=== PATIENT | male | born 1970 | race Caucasian/White ===

== ENCOUNTER 2016-05-28 20:29 | Emergency (ER) | payer MEDICAID ==
[~2016-05-28] VITALS: Ht 175.3 cm; Wt 172.4 kg
[~2016-05-28 20:29] MED LIST: ACHYD1T PO; AMOX500C2 PO; ARIP15TA PO; ASP325T PO; ASP81TEC PO; ATOR10TA PO; BENZ-13 PO; BPR100T PO; CLON0.5T3 PO; CRB200T PO; CYCL10TA9 PO; DIPH-681 PO; DOXY100C42 PO; FAMO20TA5 PO; FENO145T2 PO; HCT25T PO; HYDR-1231 PO; HYDR-3812 PO; HYDR1TAB66 PO; IBP800T PO; LISI10TA PO; LISI10TA2 PO; LRT10T PO; METO-333 PO; METO25TA2 PO; MULT-608 PO; MULT-974 PO; MVI PO; NAPR500T PO; NF-LOVAZAC PO; NFPRILOC40 PO; NITR-65 PO; OMEP-10 PO; POTA10CA43 PO; PRD20T PO; QUET300T PO; ROPI2TAB4 PO; SCR1T1 PO; SULF500T PO; TAMS0.4C9 PO; TPR100T PO; TRAZ150T42 PO; VNL75T PO; lovastatin PO
[2016-05-28] MEDS ORDERED: MESA250C PO (21:14)
[2016-05-28] MEDS ORDERED: AMIT50TA3 PO (21:14)
[2016-05-28] MEDS ORDERED: TOPI50TA13 PO (21:14)
[2016-05-28] MEDS ORDERED: PANT40TA3 PO (21:14)
[2016-05-28] MEDS ORDERED: DICY10CA12 PO (21:14)
[2016-05-28 21:22] LABS: BILIRUBIN,URINE NEGATIVE (NEGATIVE); KETONES,URINE NEGATIVE (NEGATIVE); LEUKOCYTE ESTERASE ,URINE 1+ (NEGATIVE); NITRITE,URINE NEGATIVE (NEGATIVE); PH,URINE 7 (5-9); PROTEIN,URINE 2+ (NEGATIVE); UROBILINOGEN,URINE NORMAL (NORMAL)
--- NOTE | 2016-05-28 21:24 | ED GU-Female ---
General Chief Complaint: Abdominal/GI Problems Stated Complaint: R SIDE PAIN Nursing Triage Note: PT TO ED 7 W/ FAMILY FOR C/O RT SIDE PAIN ONSET X2-3 DAYS, WORSE TODAY. DENIES N/V, DOES C/O CHRONIC DIARRHEA. WHEN ASKED WHERE PAIN IS PT POINTS TO RT FLANK , RT UPPER ET LOWER QUADRANTS OF ABD Nursing Sepsis Screen: No Definite Risk Source: patient, family (daughter), spouse Exam Limitations: no limitations History of Present Illness Time seen by provider: 21:12 Initial Comments 45-year-old male patient presents to the emergency department complains of right sided abdominal pain for 2-3 days. A anders denies nausea and vomiting. Does have chronic diarrhea. Denies fever, chills. Denies dysuria, frequency, hematuria. Timing/Duration: getting worse, other (2-3 days) Severity/Quality: aching, sharp Location: right flank Radiation: RLQ, other Activities at Onset: physical activity (right upper quadrant) Prior Genitourinary Problems: similar symptoms Modifying Factors: Worsens With Palpation Allergies and Home Medications Allergies Coded Allergies: No Known Drug Allergies (Unverified , 12/31/10) Home Medications Amitriptyline HCl 50 Mg Tablet, 50 MG PO HS, (Reported) Aripiprazole 15 Mg Tab, 20 TAB PO DAILY, (Reported) DAILY Atorvastatin Calcium 10 Mg Tablet, 10 MG PO HS, (Reported) Bupropion Hcl 100 Mg Tablet, 1 TAB PO TID, #60 (Reported) Ciprofloxacin HCl 500 Mg Tablet, 500 MG PO BID for 7 Days, #14 Ref 0 Prescribed by: NITHIN GOODWIN on 05/28/162251 Cyclobenzaprine Hcl 10 Mg Tablet, 1 EACH PO TID PRN for SPASMS, (Reported) Dicyclomine HCl 10 Mg Capsule, 20 MG PO QID, (Reported) Famotidine 20 Mg Tablet, 1 EACH PO BID for 30 Days, Ref 0 Prescribed by: KIT JOHNSON on 10/18/132110 Fenofibrate,Micronized 145 Mg Tablet, 145 MG PO DAILY, (Reported) Hydrocodone/Acetaminophen 1 Each Tablet, 1 EACH PO Q6H PRN for PAIN, #14 Ref 0 Prescribed by: NITHIN GOODWIN on 01/15/15 2315 Lisinopril 10 Mg Tablet, 10 MG PO DAILY, (Reported) Mesalamine 250 Mg Capsule.er, 250 MG PO BID, (Reported) Metoprolol Tartrate 25 Mg Tablet, 25 MG PO BID, (Reported) Vernalis-3 Acid Ethyl Esters 1 Gm Capsule, 2 G PO BID WITH MEALS, (Reported) Pantoprazole Sodium 40 Mg Tablet.dr, 40 MG PO DAILY, (Reported) Phenazopyridine HCl 200 Mg Tablet, 1 TAB PO Q8H PRN for PAIN, #30 Ref 0 Prescribed by: NITHIN GOODWIN on 05/28/16 2252 Ropinirole Hcl 2 Mg Tablet, 2 MG PO BID, (Reported) Sucralfate 1 Gm Tab, 1 GM PO UD, #120 Ref 0 TAKE BEFORE EACH MEAL AND AT BEDTIME FOR STOMACH Prescribed by: KIT JOHNSON on 10/18/132110 Topiramate 50 Mg Tablet, 50 MG PO HS, (Reported) Constitutional: No chills, No fever, No malaise Respiratory: no symptoms reported Cardiovascular: no symptoms reported Gastrointestinal: RUQ, RLQ, abdominal pain, No constipation, diarrhea (chronic diarrhea), No loss of appetite, No nausea, No vomiting Genitourinary: see HPI, denies burning, denies discharge, denies dysuria, denies frequency, flank pain, denies hematuria Musculoskeletal: No back pain Skin: no symptoms reported Psychiatric/Neurological: No Symptoms Reported All Other Systemes Reviewed Negative Unless Noted: Yes (Negative excepted noted.) Past Cvjjhqp-Bpaqbe-Fmxyoh Hx Patient Social History Alcohol Use: Denies Use Recreational Drug Use: No Smoking Status: Current Everyday Smoker Type Used: Cigarettes Recent Foreign Travel: No Contact w/Someone Who Travel: No Recent Infectious Disease Expo: No Recent Hopitalizations: No Immunizations Up To Date Tetanus Booster (TDap): Unknown Date of Influenza Vaccine: Dec 01, 2013 Seasonal Allergies Seasonal Allergies: No Surgeries HX Surgeries: Yes (LAP EVELIO, BACK SURGERY, FINGER) Surgeries: Gallbladder, Orthopedic Respiratory Hx Respiratory Disorders: Yes (C-PAP MACHINE) Respiratory Disorders: Sleep Apnea, COPD Cardiovascular Hx Cardiac Disorders: Yes Cardiac Disorders: High Cholesterol, Hypertension Neurological Hx Neurological Disorders: No Reproductive System Hx Reproductive Disorders: No Sexually Transmitted Disease: No HIV/AIDS: No Genitourinary Hx Genitourinary Disorders: Yes Genitourinary Disorders: Kidney Stones Gastrointestinal Hx Gastrointestinal Disorders: Yes (TAKES MEDS) Gastrointestinal Disorders: Colitis, Gastroesophageal Reflux Musculoskeletal Hx Musculoskeletal Disorders: Yes Musculoskeletal Disorders: Arthritis, Chronic Back Pain Endocrine Hx Endocrine Disorders: No HEENT HX ENT Disorders: No Cancer Hx Cancer: No Psychosocial Hx Psychiatric Problems: Yes (BIPOLAR, TAKES MEDS) Behavioral Health Disorders: Anxiety, Bipolar, Depression Integumentary HX Skin/Integumentary Disorder: No Blood Transfusions Hx Blood Disorders: No Adverse Reaction to a Blood Tr: No Reviewed Nursing Assessment Reviewed/Agree w Nursing PMH: Yes Family Medical History Significant Family History: No Pertinent Family Hx Physical Exam Vital Signs Capillary Refill : Less Than 3 Seconds General Appearance: WD/WN, no apparent distress, obese HEENT: PERRL/EOMI, pharynx normal Neck: supple, normal inspection Cardiovascular: regular rate, rhythm, no murmur Respiratory: lungs clear, normal breath sounds, no respiratory distress Gastrointestinal: normal bowel sounds, soft, No distended, guarding (right upper quadrant, right lower quadrant, and right flank), No rebound, tenderness ( generalized tenderness with greatest tenderness in the right upper quadrant, right lower quadrant, and right flank) Back: normal inspection, no vertebral tenderness, CVA tenderness (R), No CVA tenderness (L) Extremities: normal inspection, normal capillary refill Neurologic/Psychiatric: alert, normal mood/affect, oriented x 3 Skin: normal color, warm/dry Progress/Results/Core Measures Results/Orders Lab Results My Orders Vital Signs/I&O Blood Pressure Mean: 124 Diagnostic Imaging Diagonstic Imaging: CT Plain Films/CT/US/NM/MRI: abdomen, pelvis Comments Nonobstructing bilateral renal calculi. No ureteral stone. Normal appendix. No bowel obstruction or perforation. Hepatomegaly with parenchymal steatosis. Previous cholecystectomy. Fat-containing right inguinal hernia. Reviewed: Other ([facility] report reviewed by me) Departure Communication Progress Notes Laboratory and diagnostic findings discussed with the patient. Patient reports feeling better with medications given in the emergency department. Patient instructed to use home hydrocodone 5/[address] Casper and follow -up with Dr. meyer for recheck. All return precautions were discussed with the patient as described in the discharge instructions of this report. Patient voices understanding and agrees with the treatment plan. Impression Impression: Primary Impression: Urinary tract infection Qualified Codes: N30.00 - Acute cystitis without hematuria Additional Impressions: Right flank pain Inguinal hernia of right side without obstruction or gangrene Disposition: HOME, SELF-CARE Condition: Improved Departure-Patient Inst. Decision time for Depature: 22:49 Referrals: ÁNGEL CASPER MD (PCP/Family) Primary Care Physician Patient Instructions: Acute Abdomen (Belly Pain), Adult (DC), Urinary Tract Infection, Adult (DC) Add. Discharge Instructions: All discharge instructions reviewed with patient and/or family. Voiced understanding. Medications as instructed. Continue current home medications including Flexeril and hydrocodone. Drink plenty of fluids. Follow-up with your family practitioner for recheck in the next 2-3 days, call for appointment time tomorrow morning. Discuss right inguinal hernia with your family practitioner. Return to the emergency department for worsened pain, fever, vomiting, vomiting blood, rectal bleeding, black stools, inability to urinate, or any other concerns. Scripts Phenazopyridine HCl (Pyridium) 200 Mg Tablet 1 TAB PO Q8H Y for PAIN, #30 TAB 0 Refills Prov: NITHIN GOODWIN 05/28/16 Ciprofloxacin HCl (Ciprofloxacin HCl) 500 Mg Tablet 500 MG PO BID for 7 Days, #14 TAB 0 Refills Prov: NITHIN GOODWIN 05/28/16 NITHIN GOODWIN May 28, 2016 21:24
[2016-05-28] MEDS ORDERED: KETOROLAC 60 MG/2 ML VIAL IM STA (21:35)
[2016-05-28] MEDS ORDERED: ORPHENADRINE 60 MG/2 ML (NORFLEX) AMP IM STA (21:35)
[2016-05-28 21:37] LABS: WBC,URINE 25-50 /HPF
[2016-05-28] MEDS ORDERED: CIPR500T4 PO (22:52)
[2016-05-28] MEDS ORDERED: PHEN-640 PO (22:52)
[2016-05-28] MEDS ORDERED: oxyCODONE/APAP 5/325MG (PERCOCET 5) TABLET PO STA (22:57)
[2016-05-28] MEDS ORDERED: LEVOFLOXACIN 500 MG TAB (LEVAQUIN) PO ONE (23:00)
[2016-05-28 23:11] VITALS: BP 142/100
--- NOTE | 2016-05-29 07:14 | Diagnostic Imaging Report ---
PROCEDURE: CT urinary tract, rule out kidney stone. TECHNIQUE: Multiple contiguous axial images were obtained through the abdomen and pelvis without the use of intravenous contrast. INDICATION: Right-sided abdominal pain. History of kidney stones and gallbladder surgery. Comparison study: CT of the abdomen pelvis from 2013. FINDINGS: The lung bases are clear. Fatty infiltration of the liver has developed. No focal hepatic abnormalities are present. The liver is enlarged but not appreciably changed. The spleen is upper normal in size. The pancreas and adrenal glands are normal. Bilateral renal calculi are again identified. No obstruction is present. The urinary bladder is clear. The appendix and bowel loops appear normal. There is normal appearance of the prostate gland. Right inguinal hernia is present containing fat only. No inflammatory changes are present. The osseous structures demonstrate some facet arthropathy. IMPRESSION: 1. Bilateral renal lithiasis with no obstruction. 2. Hepatomegaly with development of a fatty liver. 3. There is a fat-containing right inguinal hernia. Findings agree with the [facility] report. Dictated by: Dictated on workstation # [id number]
[2016-05-30 07:46] LABS: CHLAMYDIA DNA URINE Negative (Negative)
[2016-05-31 06:44] LABS: NEISSERIA GONORRHEA DNA URINE Negative (Negative)
--- OUTSIDE RECORDS SUMMARY | 2016-06-16 05:15 | XMS REPORT | Continuity of Care Document ---
Author Author [facility] Organization [facility] Address Unknown Phone Unavailable Care Team Providers Care Lapel Stitcher Name Role Phone Self, Referral PCP Unavailable Source Comments Some departments are not documenting in the electronic medical record. If you do not see the information that you expected, contact Release of Information in the Health Information Management department at [phone] for further assistance in locating additional records.[facility] Active Allergies and Adverse Reactions No Known Allergies Current Medications Prescription Sig. Disp. Refills Start End Date Status Date Fenofibric Acid Take 135 mg by mouth Active (TRILIPIX) 135 mg PO CpDR daily. VENLAFAXINE HCL Take 750 mg by mouth 07/19/19 Active (VENLAFAXINE PO) daily. 11 OMEPRAZOLE (PRILOSEC PO) Take 20 mg by mouth Active daily. hydrochlorothiazide Take 25 mg by mouth Active (HYDRODIURIL) 25 mg PO daily. tablet lisinopril (PRINIVIL; Take 20 mg by mouth Active ZESTRIL) 20 mg PO tablet daily. aspirin 325 mg PO tablet Take 325 mg by mouth 07/16/19 Active daily. 11 PV W-O DARIN/FERROUS Take by mouth daily. Active FUMARATE/FA (M-VIT PO) DOCOSAHEXANOIC ACID/EPA Take 1,000 mg by mouth Active (FISH OIL PO) daily. clonazepam (KLONOPIN) 0.5 Take 0.5 mg by mouth Active mg PO tablet three times daily. carbamazepine (EPITOL) Take 200 mg by mouth Active 200 mg PO tablet three times daily. ibuprofen (MOTRIN) 800 mg Take 800 mg by mouth Active PO tablet three times daily. cyclobenzaprine Take 10 mg by mouth three 07/19/19 Active (FLEXERIL) 10 mg PO times daily as needed. 11 tablet topiramate (TOPAMAX) 100 Take 100 mg by mouth Active mg PO tablet twice daily. metoprolol (LOPRESSOR) 25 Take 25 mg by mouth twice Active mg PO tablet daily. gemfibrozil (LOPID) 600 Take 600 mg by mouth Active mg PO tablet twice daily. POTASSIUM CHLORIDE (K-JOANNE Take 20 mEq by mouth at Active PO) bedtime daily. ropinirole (REQUIP) 2 mg Take 2 mg by mouth at Active PO tablet bedtime daily. Trazodone 150 mg PO Tb24 Take 150 mg by mouth at Active bedtime daily. QUETIAPINE FUMARATE Take 500 mg by mouth at 07/19/19 Active (SEROQUEL XR PO) bedtime daily. 11 Active Problems Not on file Social History Tobacco Use Types Packs/Day Years Used Date Current Every Day Smoker 1 Alcohol Use Drinks/Week oz/Week Comments No Last Filed Vital Signs Vital Sign Reading Time Taken Blood Pressure 111/65 07/20/2010 3:35 PM CDT Pulse 98 07/20/2010 3:35 PM CDT Temperature 37.2 C (99 F) 10/18/2009 10:49 AM CDT Respiratory Rate - - Height - - Weight 161.027 kg (355 lb) 07/20/2010 2:05 PM CDT Body Mass Index - - Oxygen Saturation 96% 07/20/2010 3:35 PM CDT Plan of Care Health Maintenance Due Date Last Done Comments Physical (Comprehensive) 1976 Exam Pertussis Vaccine 1980 Tetanus Vaccine 1986 Influenza Vaccine 11/01/2016 Results from Last 3 Months Not on file
--- OUTSIDE RECORDS SUMMARY | 2016-06-16 05:15 | XMS REPORT ---
Author Author VALENTIN MCFARLAND [facility] Address Unknown Care Team Providers Care Visual Manager Name Role Phone VALENTIN MCFARLAND Unavailable PROBLEMS Type Condition ICD9-CM Code [id number]-RC Code Onset Dates Condition Status SNOMED Code Problem Pleurisy without mention of effusion or current tuberculosis 511.0 Active 657620449 Problem Restless legs syndrome [RLS] 333.94 Active 93411759 Problem Obstructive sleep apnea (adult) (pediatric) 327.23 Active 56779283 Assessment Dental examination Z01.20 Oct, Active 37104313 Problem Unspecified site of sprain and strain 848.9 Active 667285487 Problem Other specified headache syndromes 339.89 Active Problem Lumbago 724.2 Active 397865227 Problem Bipolar I disorder, single manic episode, unspecified 296.00 Active 4310246 Problem Other and unspecified hyperlipidemia 272.4 Active 39294686 Problem Essential hypertension, benign 401.1 Active 6471755 ALLERGIES Unknown Allergies SOCIAL HISTORY No smoking Hx information available PLAN OF CARE VITAL SIGNS MEDICATIONS Unknown Medications RESULTS No Results PROCEDURES Procedure Date Ordered Related Diagnosis Body Site Billing Notes on claim Oct 27, 2015 IMMUNIZATIONS No Known Immunizations
--- OUTSIDE RECORDS SUMMARY | 2016-06-16 05:16 | XMS REPORT | Continuity of Care Document ---
Author Author [facility] Organization [facility] Address Unknown Phone Unavailable Allergies Active Description Code Type Severity Reaction Onset Reported/Identified Relationship to Patient Clinical Status Yes No Known Drug Allergies [id number] Drug Allergy Unknown N/ A 12/31/2010 Medications Problems Date Dx Coded Attending Type Code Diagnosis Diagnosed By 01/01/2011 Ot 272.4 HYPERLIPIDEMIA NEC/NOS 01/01/2011 Ot 278.00 OBESITY, NOS 01/01/2011 Ot 296.80 BIPOLAR DISORDER, UNSPECIFIED 01/01/2011 Ot 305.1 TOBACCO USE DISORDER 01/01/2011 Ot 401.9 HYPERTENSION NOS 01/01/2011 Ot 780.57 UNSPECIFIED SLEEP APNEA 01/01/2011 Ot 786.59 CHEST PAIN NEC 01/01/2011 Ot V58.66 LONG-TERM (CURRENT) USE OF ASPIRIN 01/01/2011 Ot V58.69 OTH MED,LT,CURRENT USE 01/01/2011 Ot V85.43 BODY MASS INDEX 50.0-59.9, ADULT 10/26/2011 Ot 295.90 SCHIZOPHRENIA NOS-UNSPEC 10/26/2011 Ot 296.82 ATYPICAL DEPRESSIVE DIS 10/26/2011 Ot 882.0 OPEN WOUND OF HAND 10/26/2011 Ot E000.8 OTHER EXTERNAL CAUSE STATUS 10/26/2011 Ot E849.0 ACCIDENT IN HOME 10/26/2011 Ot E956 ROMEO/SELF-INJ BY CUT INST 10/26/2011 Ot V58.69 OTH MED,LT,CURRENT USE 10/26/2011 Ot V62.84 SUICIDAL IDEATION 09/04/2013 MAXIMO LENNON, DONN Hays Ot 592.1 CALCULUS OF URETER 10/18/2013 KIT JOHNSON DO Ot 530.81 ESOPHAGEAL REFLUX 10/18/2013 KIT JOHNSON DO Ot 786.50 CHEST PAIN NOS 10/18/2013 KIT JOHNSON DO Ot V58.69 OTH MED,LT,CURRENT USE 10/04/2014 JANET LENNON, LINO Hays Ot 592.0 CALCULUS OF KIDNEY 11/04/2014 JANET LENNON, LINO A Ot 592.9 01/15/2015 NITHIN HALL Ot F17.210 NICOTINE DEPENDENCE, CIGARETTES, UNCOMPL 01/15/2015 NITHIN HALL Ot M12.9 ARTHROPATHY, UNSPECIFIED 01/15/2015 NITHIN HALL Ot M51.16 INTERVERTEBRAL DISC DISORDERS W RADICULO 09/30/2015 LOGAN SNELL APRN Ot F17.210 NICOTINE DEPENDENCE, CIGARETTES, UNCOMPL 09/30/2015 LOGAN SNELL APRN Ot K02.9 DENTAL CARIES, UNSPECIFIED 09/30/2015 LOGAN SNELL APRN Ot K08.8 OTHER SPECIFIED DISORDERS OF TEETH AND S 10/02/2015 LOGAN SNELL APRN Ot K02.9 DENTAL CARIES, UNSPECIFIED 10/02/2015 LOGAN SNELL APRN Ot K08.8 OTHER SPECIFIED DISORDERS OF TEETH AND S 10/02/2015 LOGAN SNELL APRN Ot F17.210 NICOTINE DEPENDENCE, CIGARETTES, UNCOMPL 10/02/2015 LOGAN SNELL APRN Ot K02.9 DENTAL CARIES, UNSPECIFIED 10/02/2015 LOGAN SNELL APRN Ot K08.8 OTHER SPECIFIED DISORDERS OF TEETH AND S 10/06/2015 LOGAN SNELL APRN Ot F17.210 NICOTINE DEPENDENCE, CIGARETTES, UNCOMPL 10/06/2015 LOGAN SNELL APRN Ot K02.9 DENTAL CARIES, UNSPECIFIED 10/06/2015 LOGAN SNELL APRN Ot K08.8 OTHER SPECIFIED DISORDERS OF TEETH AND S 10/07/2015 LOGAN SNELL APRN Ot F17.210 NICOTINE DEPENDENCE, CIGARETTES, UNCOMPL 10/07/2015 LOGAN SNELL APRN Ot K76.0 FATTY (CHANGE OF) LIVER, NOT ELSEWHERE C 10/07/2015 LOGAN SNELL APRN Ot R06.02 SHORTNESS OF BREATH 10/07/2015 LOGAN SNELL APRN Ot R07.9 CHEST PAIN, UNSPECIFIED 10/09/2015 LOGAN SNELL APRN Ot F17.210 NICOTINE DEPENDENCE, CIGARETTES, UNCOMPL 10/09/2015 LOGAN SNELL APRN Ot K76.0 FATTY (CHANGE OF) LIVER, NOT ELSEWHERE C 10/09/2015 LOGAN SNELL APRN Ot R06.02 SHORTNESS OF BREATH 10/09/2015 LOGAN SNELL APRN Ot R07.9 CHEST PAIN, UNSPECIFIED 10/10/2015 LOGAN SNELL TUBE COVERER Ot F17.210 NICOTINE DEPENDENCE, CIGARETTES, UNCOMPL 10/10/2015 LOGAN SNELL APRN Ot K76.0 FATTY (CHANGE OF) LIVER, NOT ELSEWHERE C 10/10/2015 LOGAN SNELL APRN Ot R06.02 SHORTNESS OF BREATH 10/10/2015 LOGAN SNELL APRN Ot R07.9 CHEST PAIN, UNSPECIFIED 12/11/2015 KIT JOHNSON DO Ot R10.84 GENERALIZED ABDOMINAL PAIN 12/11/2015 KIT JOHNSON DO Ot Z53.21 PROC/TRTMT NOT CRD OUT D/T PT LV BEF SEE 12/13/2015 KIT JOHNSON DO Ot R10.84 GENERALIZED ABDOMINAL PAIN 12/13/2015 KIT JOHNSON DO Ot Z53.21 PROC/TRTMT NOT CRD OUT D/T PT LV BEF SEE 01/26/2016 JANET LENNON, LINO Hays Ot 592.0 CALCULUS OF KIDNEY 01/26/2016 LINO GONZALES MD Ot 592.0 CALCULUS OF KIDNEY 01/26/2016 JANET LENNON, LINO Hays Ot 789.03 ABDOMINAL PAIN, RIGHT LOWER QUADRANT 01/26/2016 JANET LENNON, LINO Hays Ot 793.5 NOSP (ABN) FINDINGS ON RADIOLOGICAL OT 01/26/2016 LINO GONZALES MD Ot 592.0 CALCULUS OF KIDNEY 01/26/2016 JANET LENNON, LINO Hays Ot V72.84 EXAM PRE-OPERATIVE NOS 01/26/2016 LINO GONZALES MD Ot 592.9 URINARY CALCULUS NOS 01/27/2016 KRISTIAN CONTRERAS DO Ot F17.210 NICOTINE DEPENDENCE, CIGARETTES, UNCOMPL 01/27/2016 KRISTIAN CONTRERAS DO Ot I10 ESSENTIAL (PRIMARY) HYPERTENSION 01/27/2016 KRISTIAN CONTRERAS DO Ot J44.0 CHRONIC OBSTRUCTIVE PULMON DISEASE W ACU 01/27/2016 KRISTIAN CONTRERAS DO Ot R06.02 SHORTNESS OF BREATH 01/27/2016 DIANE DO, KRISTIAN K Ot R73.9 HYPERGLYCEMIA, UNSPECIFIED 01/27/2016 DIANE DO, KRISTIAN K Ot Z79.899 OTHER CARTON COUNTER FEEDER (CURRENT) DRUG THERAPY 01/29/2016 DIANE DO, KRISTIAN K Ot F17.210 NICOTINE DEPENDENCE, CIGARETTES, UNCOMPL 01/29/2016 DIANE DO, KRISTIAN K Ot I10 ESSENTIAL (PRIMARY) HYPERTENSION 01/29/2016 DIANE DO, KRISTIAN K Ot J44.0 CHRONIC OBSTRUCTIVE PULMON DISEASE W ACU 01/29/2016 DIANE DO, KRISTIAN K Ot R06.02 SHORTNESS OF BREATH 01/29/2016 DIANE DO, KRISTIAN K Ot R73.9 HYPERGLYCEMIA, UNSPECIFIED 01/29/2016 DIANE DO, KRISTIAN K Ot Z79.899 OTHER CARTON COUNTER FEEDER (CURRENT) DRUG THERAPY 01/30/2016 DIANE DO, KRISTIAN K Ot F17.210 NICOTINE DEPENDENCE, CIGARETTES, UNCOMPL 01/30/2016 DIANE DO, KRISTIAN K Ot I10 ESSENTIAL (PRIMARY) HYPERTENSION 01/30/2016 DIANE DO, KRISTIAN K Ot J44.0 CHRONIC OBSTRUCTIVE PULMON DISEASE W ACU 01/30/2016 DIANE DO, KRISTIAN K Ot R06.02 SHORTNESS OF BREATH 01/30/2016 DIANE DO, KRISTIAN K Ot R73.9 HYPERGLYCEMIA, UNSPECIFIED 01/30/2016 DIANE DO, KRISTIAN K Ot Z79.899 OTHER CARTON COUNTER FEEDER (CURRENT) DRUG THERAPY 05/28/2016 NITHIN HALL Ot F17.210 NICOTINE DEPENDENCE, CIGARETTES, UNCOMPL 05/28/2016 NITHIN HALL Ot I10 ESSENTIAL (PRIMARY) HYPERTENSION 05/28/2016 NITHIN HALL Ot K40.90 UNIL INGUINAL HERNIA, W/O OBST OR GANGR , 05/28/2016 NITHIN HALL Ot N20.0 CALCULUS OF KIDNEY 05/28/2016 NITHIN HALL Ot N39.0 URINARY TRACT INFECTION, SITE NOT SPECIF 05/28/2016 NITHIN HALL Ot R10.31 RIGHT LOWER QUADRANT PAIN 05/28/2016 NITHIN HALL Ot Z79.899 OTHER CARE HOME (CURRENT) DRUG THERAPY 05/29/2016 NITHIN HALL Ot F17.210 NICOTINE DEPENDENCE, CIGARETTES, UNCOMPL 05/29/2016 NITHIN HALL Ot I10 ESSENTIAL (PRIMARY) HYPERTENSION 05/29/2016 NITHIN HALL L Ot K40.90 UNIL INGUINAL HERNIA, W/O OBST OR GANGR , 05/29/2016 NITHIN HALL Ot N20.0 CALCULUS OF KIDNEY 05/29/2016 NITHIN HALL Ot N39.0 URINARY TRACT INFECTION, SITE NOT SPECIF 05/29/2016 NITHIN HALL Ot R10.31 RIGHT LOWER QUADRANT PAIN 05/29/2016 NITHIN HALL Ot Z79.899 OTHER CARTON COUNTER FEEDER (CURRENT) DRUG THERAPY 05/30/2016 NITHIN HALL L Ot F17.210 NICOTINE DEPENDENCE, CIGARETTES, UNCOMPL 05/30/2016 NITHIN HALL L Ot I10 ESSENTIAL (PRIMARY) HYPERTENSION 05/30/2016 NITHIN HALL L Ot K40.90 UNIL INGUINAL HERNIA, W/O OBST OR GANGR , 05/30/2016 NITHIN HALL Ot N20.0 CALCULUS OF KIDNEY 05/30/2016 NITHIN HALL Ot N39.0 URINARY TRACT INFECTION, SITE NOT SPECIF 05/30/2016 NITHIN HALL Ot R10.31 RIGHT LOWER QUADRANT PAIN 05/30/2016 NITHIN HALL Ot Z79.899 OTHER CARE HOME (CURRENT) DRUG THERAPY 06/03/2016 NITHIN HALL Ot F17.210 NICOTINE DEPENDENCE, CIGARETTES, UNCOMPL 06/03/2016 NITHIN HALL Ot I10 ESSENTIAL (PRIMARY) HYPERTENSION 06/03/2016 NITHIN HALL Ot K40.90 UNIL INGUINAL HERNIA, W/O OBST OR GANGR , 06/03/2016 NITHIN HALL Ot N20.0 CALCULUS OF KIDNEY 06/03/2016 NITHIN HALL Ot N39.0 URINARY TRACT INFECTION, SITE NOT SPECIF 06/03/2016 NITHIN HALL Ot R10.31 RIGHT LOWER QUADRANT PAIN 06/03/2016 NITHIN HALL Ot Z79.899 OTHER CARE HOME (CURRENT) DRUG THERAPY Procedures Results Test Result Range Complete blood count (CBC) with automated white blood cell (WBC) differential - 10/07/15 17:46 Blood leukocytes automated count (number/volume) 8.3 10*3/ uL 4.3-11.0 Blood erythrocytes automated count (number/volume) 4.89 10*6 /uL 4.35-5.85 Venous blood hemoglobin measurement (mass/volume) 15.4 g/dL 13.3-17.7 Blood hematocrit (volume fraction) 45 % 40-54 Automated erythrocyte mean corpuscular volume 92 [foz_us] 80-99 Automated erythrocyte mean corpuscular hemoglobin (mass per erythrocyte) 32 pg 25-34 Automated erythrocyte mean corpuscular hemoglobin concentration measurement ( mass/volume) 34 g/dL 32-36 Automated erythrocyte distribution width ratio 13.4 % 10.0-14.5 Automated blood platelet count (count/volume) 168 10*3/uL 130-400 Automated blood platelet mean volume measurement 10.7 [foz_ us] 7.4-10.4 Automated blood neutrophils/100 leukocytes 64 % 42-75 Automated blood lymphocytes/100 leukocytes 25 % 12-44 Blood monocytes/100 leukocytes 8 % 0-12 Automated blood eosinophils/100 leukocytes 2 % 0-10 Automated blood basophils/100 leukocytes 1 % 0-10 Blood neutrophils automated count (number/volume) 5.3 10*3 1.8-7.8 Blood lymphocytes automated count (number/volume) 2.0 10*3 1.0-4.0 Blood monocytes automated count (number/volume) 0.7 10*3 0.0-1.0 Automated eosinophil count 0.2 10*3/uL 0.0-0.3 Automated blood basophil count (count/volume) 0.0 10*3/uL 0.0-0.1 PT panel in platelet poor plasma by coagulation assay - 10/07/15 17:46 Prothrombin time (PT) in platelet poor plasma by coagulation assay 12.0 s 12.2-14.7 INR in platelet poor plasma or blood by coagulation assay 0.9 0.8-1.4 Activated partial thromboplastin time (aPTT) in platelet poor plasma bycoagulation assay - 10/07/15 17:46 Activated partial thromboplastin time (aPTT) in platelet poor plasma bycoagulation assay 26 s 24-35 Comprehensive metabolic panel - 10/07/15 17:46 Serum or plasma sodium measurement (moles/volume) 139 mmol/ L 135-145 Serum or plasma potassium measurement (moles/volume) 3.7 mmol/L 3.6-5.0 Serum or plasma chloride measurement (moles/volume) 107 mmol /L 98-107 Carbon dioxide 26 mmol/L 21-32 Serum or plasma anion gap determination (moles/volume) 6 mmol/L 5-14 Serum or plasma urea nitrogen measurement (mass/volume) 12 mg/dL 7-18 Serum or plasma creatinine measurement (mass/volume) 1.44 mg /dL 0.60-1.30 Serum or plasma urea nitrogen/creatinine mass ratio 8 NRG Serum or plasma creatinine measurement with calculation of estimated glomerular filtration rate 53 NRG Serum or plasma glucose measurement (mass/volume) 126 mg/dL 70-105 Serum or plasma calcium measurement (mass/volume) 9.1 mg/dL 8.5-10.1 Serum or plasma total bilirubin measurement (mass/volume) 0.3 mg/dL 0.1-1.0 Serum or plasma alkaline phosphatase measurement (enzymatic activity/volume) 55 U/L 40-136 Serum or plasma aspartate aminotransferase measurement (enzymatic activity/ volume) 23 U/L 5-34 Serum or plasma alanine aminotransferase measurement (enzymatic activity/volume ) 33 U/L 0-55 Serum or plasma protein measurement (mass/volume) 5.9 g/dL 6.4-8.2 Serum or plasma albumin measurement (mass/volume) 3.8 g/dL 3.2-4.5 Magnesium - 10/07/15 17:46 Magnesium 1.8 mg/dL 1.8-2.4 Serum or plasma troponin i.cardiac measurement (mass/volume) - 10/07/15 17:46 Serum or plasma troponin i.cardiac measurement (mass/volume) < ng/mL <0.30 Myoglobin, serum - 10/07/15 17:46 Myoglobin, serum 77.7 ng/mL 10.0-92.0 Serum or plasma lithium measurement (moles/volume) - 10/07/15 17:46 BNP level 26.7 pg/mL <100.0 Hemoglobin A1c - 10/07/15 17:46 Hemoglobin A1c 5.6 % 4.5-6.2 Complete blood count (CBC) with automated white blood cell (WBC) differential - 01/26/16 23:39 Blood leukocytes automated count (number/volume) 11.6 10*3/ uL 4.3-11.0 Blood erythrocytes automated count (number/volume) 5.34 10*6 /uL 4.35-5.85 Venous blood hemoglobin measurement (mass/volume) 17.1 g/dL 13.3-17.7 Blood hematocrit (volume fraction) 49 % 40-54 Automated erythrocyte mean corpuscular volume 92 [foz_us] 80-99 Automated erythrocyte mean corpuscular hemoglobin (mass per erythrocyte) 32 pg 25-34 Automated erythrocyte mean corpuscular hemoglobin concentration measurement ( mass/volume) 35 g/dL 32-36 Automated erythrocyte distribution width ratio 14.1 % 10.0-14.5 Automated blood platelet count (count/volume) 171 10*3/uL 130-400 Automated blood platelet mean volume measurement 10.6 [foz_ us] 7.4-10.4 Automated blood neutrophils/100 leukocytes 63 % 42-75 Automated blood lymphocytes/100 leukocytes 25 % 12-44 Blood monocytes/100 leukocytes 10 % 0-12 Automated blood eosinophils/100 leukocytes 2 % 0-10 Automated blood basophils/100 leukocytes 1 % 0-10 Blood neutrophils automated count (number/volume) 7.3 10*3 1.8-7.8 Blood lymphocytes automated count (number/volume) 2.9 10*3 1.0-4.0 Blood monocytes automated count (number/volume) 1.2 10*3 0.0-1.0 Automated eosinophil count 0.2 10*3/uL 0.0-0.3 Automated blood basophil count (count/volume) 0.1 10*3/uL 0.0-0.1 PT panel in platelet poor plasma by coagulation assay - 01/26/16 23:39 Prothrombin time (PT) in platelet poor plasma by coagulation assay 13.0 s 12.2-14.7 INR in platelet poor plasma or blood by coagulation assay 1.0 0.8-1.4 Activated partial thromboplastin time (aPTT) in platelet poor plasma bycoagulation assay - 01/26/16 23:39 Activated partial thromboplastin time (aPTT) in platelet poor plasma bycoagulation assay 28 s 24-35 Influenza virus A and B antigen detection - 01/26/16 23:55 FLU RESULT NEGATIVE FOR INFLUENZA A AND B ANTIGENS BY [facility] Comprehensive metabolic panel - 01/27/16 00:08 Serum or plasma sodium measurement (moles/volume) 137 mmol/ L 135-145 Serum or plasma potassium measurement (moles/volume) 3.5 mmol/L 3.6-5.0 Serum or plasma chloride measurement (moles/volume) 108 mmol /L 98-107 Carbon dioxide 17 mmol/L 21-32 Serum or plasma anion gap determination (moles/volume) 12 mmol/L 5-14 Serum or plasma urea nitrogen measurement (mass/volume) 17 mg/dL 7-18 Serum or plasma creatinine measurement (mass/volume) 1.45 mg /dL 0.60-1.30 Serum or plasma urea nitrogen/creatinine mass ratio 12 NRG Serum or plasma creatinine measurement with calculation of estimated glomerular filtration rate 52 NRG Serum or plasma glucose measurement (mass/volume) 212 mg/dL 70-105 Serum or plasma calcium measurement (mass/volume) 9.3 mg/dL 8.5-10.1 Serum or plasma total bilirubin measurement (mass/volume) 0.4 mg/dL 0.1-1.0 Serum or plasma alkaline phosphatase measurement (enzymatic activity/volume) 62 U/L 40-136 Serum or plasma aspartate aminotransferase measurement (enzymatic activity/ volume) 27 U/L 5-34 Serum or plasma alanine aminotransferase measurement (enzymatic activity/volume ) 40 U/L 0-55 Serum or plasma protein measurement (mass/volume) 6.4 g/dL 6.4-8.2 Serum or plasma albumin measurement (mass/volume) 4.1 g/dL 3.2-4.5 Magnesium - 01/27/16 00:08 Magnesium 2.0 mg/dL 1.8-2.4 Serum or plasma creatine kinase measurement (enzymatic activity/volume) - 01/26 00:08 Serum or plasma creatine kinase measurement (enzymatic activity/volume) 180 U/L 30-200 Serum or plasma lithium measurement (moles/volume) - 01/27/16 00:08 BNP level < pg/mL <100.0 Serum or plasma creatine kinase MB measurement (enzymatic activity/volume) - 00:08 Serum or plasma creatine kinase MB measurement (enzymatic activity/volume) 2.9 ng/mL <6.6 Serum or plasma troponin i.cardiac measurement (mass/volume) - 01/27/16 00:08 Serum or plasma troponin i.cardiac measurement (mass/volume) < ng/mL <0.30 Complete urinalysis with reflex to culture - 05/28/16 21:02 Urine color determination YELLOW NRG Urine clarity determination SLIGHTLY CLOUDY NRG Urine pH measurement by test strip 7 5- 9 Specific gravity of urine by test strip 1.010 1.016-1.022 Urine protein assay by test strip, semi-quantitative 2+ NEGATIVE Urine glucose detection by automated test strip 1+ NEGATIVE Erythrocytes detection in urine sediment by light microscopy NEGATIVE NEGATIVE Urine ketones detection by automated test strip NEGATIVE NEGATIVE Urine nitrite detection by test strip NEGATIVE NEGATIVE Urine total bilirubin detection by test strip NEGATIVE NEGATIVE Urine urobilinogen measurement by automated test strip (mass/volume) NORMAL NORMAL Urine leukocyte esterase detection by dipstick 1+ NEGATIVE Automated urine sediment erythrocyte count by microscopy (number/high power field) RARE NRG Automated urine sediment leukocyte count by microscopy (number/high power field ) [HPF] NRG Bacteria detection in urine sediment by light microscopy LARGE NRG Squamous epithelial cells detection in urine sediment by light microscopy 10-25 NRG Crystals detection in urine sediment by light microscopy NONE NRG Casts detection in urine sediment by light microscopy NONE NRG Mucus detection in urine sediment by light microscopy NEGATIVE NRG Complete urinalysis with reflex to culture YES NRG Bacterial urine culture - 05/28/16 21:02 Bacterial urine culture FOOTNOTE NRG Chlamydia DNA amp probe, urine - 05/28/16 21:02 Chlamydia DNA amp probe, urine Negative Negative Urine Neisseria gonorrhoeae DNA assay - 05/28/16 21:02 Gonorrhea amp DNA-urine Negative Negative Encounters ACCT No. Visit Date/Time Discharge Status Pt. Type Provider Facility Loc./Unit Complaint [id number] 05/28/2016 20:30:00 2016 23:11:00 DIS Emergency NITHIN HALL [facility] ER R SIDE PAIN [id number] 01/26/2016 23:11:00 2015 01:20:00 DIS Emergency DIANE DOKRISTIAN [facility] ER CP,SOB,CONGESTION [id number] 12/11/2015 16:04:00 2015 17:15:00 DIS Emergency KIT JOHNSON DO [facility] ER ABD PAIN [id number] 10/07/2015 17:30:00 2015 20:45:00 DIS Emergency LOGAN SNELL APRN [facility] ER CHEST PAIN/SOA [id number] 09/30/2015 13:50:00 2015 14:24:00 DIS Emergency LOGAN SNELL TUBE COVERER [facility] ER DENTAL PAIN [id number] 01/15/2015 21:30:00 2014 23:27:00 DIS Emergency NITHIN HALL [facility] ER BACK PAIN [id number] 10/25/2014 13:37:00 2014 23:59:59 CLS Outpatient LINO GONZALES MD [facility] RAD STONES [id number] 10/04/2014 07:51:00 2014 16:10:00 DIS Outpatient LINO GONZALES MD [facility] SDC LEFT RENAL STONE [id number] 09/27/2014 05:58:00 2014 23:59:59 CLS Outpatient LINO GONZALES MD [facility] PREOP LEFT RENAL STONE [id number] 10/18/2013 19:39:00 2013 21:28:00 DIS Emergency KIT JOHNSON DO [facility] ER CHEST PAIN, R ARM PAIN [id number] 09/04/2013 19:34:00 2013 22:38:00 DIS Emergency DONN MARSH MD [facility] ER LEFT SIDE PAIN [id number] 08/06/2013 08:09:00 2013 23:59:59 CLS Outpatient LINO GONZALES MD [facility] RAD RLQ PAIN, HX OF STONES [id number] 08/05/2013 13:42:00 2013 23:59:59 CLS Outpatient LINO GONZALES MD [facility] RAD STONE [id number] 10/17/2012 11:17:00 2012 23:59:59 CLS Outpatient [id number] 10/26/2011 15:47:00 Document Registration [id number] 12/31/2010 19:20:00 Document Registration
--- OUTSIDE RECORDS SUMMARY | 2016-06-16 05:16 | XMS REPORT ---
Author Author CYN MAC [facility] [employer] Address Unknown Phone Unavailable Care Team Providers Care Consular Officer Name Role Phone CYN MAC Unavailable Allergies, Adverse Reactions, Alerts Substance Reaction Event Type N.K.D.A. Info Not Available Non Drug Allergy Problems Problem Type Condition Code Onset Dates Condition Status Assessment Dental examination Z01.20 Active Problem Obstructive sleep apnea (adult) (pediatric) 327.23 Active Problem Pleurisy without mention of effusion or current tuberculosis 511.0 Active Problem Other specified headache syndromes 339.89 Active Problem Other and unspecified hyperlipidemia 272.4 Active Problem Unspecified site of sprain and strain 848.9 Active Problem Bipolar I disorder, single manic episode, unspecified 296.00 Active Problem Restless legs syndrome [RLS] 333.94 Active Problem Essential hypertension, benign 401.1 Active Problem Lumbago 724.2 Active Medications Medication Code System Code Instructions Start Date End Date Status Dosage Clindamycin HCl [facility] [place] [address]-19 150 MG Orally every 6 hrs Feb 01, 2015 Feb 08, 2015 2 capsules Lipitor [facility] [place]NOTE 2] [address]-94 10 mg September 26, 2011 take 1 tablet (10 mg ) by oral route once daily venlafaxine NDC 0 75 mg September 26, 2011 take 1 capsule (75 mg) by oral route once daily Tricor [facility] [place] 2] [address]-10 145 mg September 26, 2011 take 1 tablet (145 mg) by oral route once daily Seroquel [facility] [place]NOTE 2] [address]-38 300 mg September 26, 2011 take 2 tablets ( 600 mg) by oral route once daily Hydrocodone-Acetaminophen [facility] [place]NOTE 2] [address]-02 5-500 mg September 26, 2011 take 1 tablet by oral route every 6 hours as needed for painPRN Topiragen NDC 0 100 mg September 26, 2011 1 Tablet 2 times per day Ventolin HFA [facility] [place]NOTE 2] [address]-30 90 mcg/actuation September 26, 2011 not defined Epitol [facility] [place]NOTE 2] [address]-30 200 mg September 26, 2011 take 1 tablet (200 mg) by oral route every 8 hours Flexeril [facility] [place]NOTE 2] 0 not defined cyclobenzaprine [facility] [place]NOTE 2] [address]-66 10 mg September 26, 2011 take 1 tablet (10 mg) by oral route 3 times per day Advair Diskus [facility] [place]NOTE 2] [address]-42 250-50 mcg/dose September 26, 2011 inhale 1 puff by inhalation route 2 times per day in the morning and evening approximately 12 hours apart Requip [facility] [place]NOTE 2] [address]-34 2 mg September 26, 2011 1 Tablet 1 time per day Lisinopril [facility] [place]NOTE 2] [address]-44 10 mg September 26, 2011 take 1 tablet ( 10 mg) by oral route once daily Metoprolol Tartrate [facility] [place]NOTE 2] [address]-28 50 mg September 26, 2011 0.5 Tablet every 12 hours PredniSONE [facility] [place]NOTE 2] [address]-80 20 mg September 26, 2011 3 tablet by Oral route 1 time per day for 5 day(s) Loratadine [facility] [place]NOTE 2] [address]-07 10 mg September 26, 2011 take 1 tablet ( 10 mg) by oral route once daily Lovaza [facility] [place]NOTE 2] [address]-21 1 gram September 26, 2011 1 Capsule 2 times per day Procedures Procedure Coding System Code Date INTRAORL-PERIAPICAL 1 FILM 27717 CPT-4 D0220 Feb 01, 2015 LTD ORAL EVALUATION - PROBLEM FOCUS CPT-4 D0140 Feb 01, 2015 Results No Known Results Summary Purpose [employer] Submission
== END 2016-05-28 23:11 | disposition home or self-care (01) ==
LOC: EDUNIT# 20:29 → ER 20:30
DX: N39.0 Urinary tract infection, site not specified (principal); K40.90 Unilateral inguinal hernia, without obstruction or gangrene, not specified as recurrent; N20.0 Calculus of kidney; I10 Essential (primary) hypertension; F17.210 Nicotine dependence, cigarettes, uncomplicated; Z79.899 Other long term (current) drug therapy
CPT/HCPCS: 36415; 74176; 81000; 87088; 87491; 87591; 96372; 99282

== ENCOUNTER 2016-10-12 12:40 | Emergency (ER) | payer MEDICAID ==
[~2016-10-12] VITALS: Ht 175.3 cm; Wt 166.0 kg
[~2016-10-12 12:40] MED LIST changes: +AMIT50TA3 PO; +CIPR500T4 PO; +DICY10CA12 PO; +MESA250C PO; +PANT40TA3 PO; +PHEN-640 PO; +TOPI50TA13 PO
--- OUTSIDE RECORDS SUMMARY | 2016-10-12 12:46 | XMS REPORT | Clinical Summary ---
Author Author [facility] Organization [facility] Address Unknown Phone Unavailable Care Team Providers Care Network Internship Name Role Phone PCP Unavailable Source Comments Some departments are not documenting in the electronic medical record. If you do not see the information that you expected, contact Release of Information in the Health Information Management department at [phone] for further assistance in locating additional records.[facility] Allergies No Known Allergies Current Medications Prescription Sig. [...] 1 Alcohol Use Drinks/Week oz/Week Comments No Sex Assigned at Date Recorded Not on file Last Filed Vital Signs Vital Sign Reading Time Taken Blood Pressure 111/65 07/20/2010 3:35 PM CDT Pulse 98 07/20/2010 3:35 PM CDT Temperature 37.2 C (99 F) 10/18/2009 10:49 AM CDT Respiratory Rate - - Oxygen Saturation 96% 07/20/2010 3:35 PM CDT Inhaled Oxygen - - Concentration Weight 161 kg (355 lb) 07/20/2010 2:05 PM CDT Height - - Body Mass Index - - Plan of Treatment Health Maintenance Due Date Last Done Comments PHYSICAL (COMPREHENSIVE) 1976 EXAM PERTUSSIS VACCINE 1980 TETANUS VACCINE 1986 INFLUENZA VACCINE 11/01/2016 Results Not on filefrom Last 3 Months
--- NOTE | 2016-10-12 14:13 | ED EENT ---
History of Present Illness General Chief Complaint: Dental Problems/Pain Stated Complaint: DENTAL PAIN/SWELLING POSS INFECTION Nursing Triage Note: ARRIVED VIA AMB TO ROOM 05. STATES HE HAS HAD TROUBLE WITH HIS RIGHT LOWER TOOTH FOR A WHILE BUT HIS MOUTH BEGAN TO SWELL LAST NOC. Source: patient Exam Limitations: no limitations History of Present Illness Time seen by provider: 14:13 Initial Comments 45-year-old male patient presents to the emergency department with complaints of right lower dental pain and swelling. Patient reports symptoms began approximately one week ago. At times worse last night. Does complain of chills and low-grade fevers intermittently. Timing/Duration: gradual, last week Location: dental Prearrival Treatment: over the counter meds Modifying Factors: Worse With Other (worse with palpation and chewing.) Allergies and Home Medications Allergies Coded Allergies: No Known Drug Allergies (Unverified , 12/31/10) Home Medications Amitriptyline HCl 50 Mg Tablet, 50 MG PO HS, (Reported) Amoxicillin 500 Mg Capsule, 1,000 MG PO TID, #60 Ref 0 Prescribed by: NITHIN GOODWIN on 10/12/16 1528 Aripiprazole 15 Mg Tab, 20 TAB PO DAILY, (Reported) DAILY Atorvastatin Calcium 10 Mg Tablet, 10 MG PO HS, (Reported) Bupropion Hcl 100 Mg Tablet, 1 TAB PO TID, #60 (Reported) Ciprofloxacin HCl 500 Mg Tablet, 500 MG PO BID for 7 Days, #14 Ref 0 Prescribed by: NITHIN GOODWIN on 05/28/16 2252 Cyclobenzaprine Hcl 10 Mg Tablet, 1 EACH PO TID PRN for SPASMS, (Reported) Dicyclomine HCl 10 Mg Capsule, 20 MG PO QID, (Reported) Famotidine 20 Mg Tablet, 1 EACH PO BID for 30 Days, Ref 0 Prescribed by: KIT JOHNSON on 10/18/13 2111 Fenofibrate,Micronized 145 Mg Tablet, 145 MG PO DAILY, (Reported) Hydrocodone/Acetaminophen 1 Each Tablet, 1 EACH PO Q6H PRN for PAIN, #14 Ref 0 Prescribed by: NITHIN GOODWIN on 01/15/15 2315 Lisinopril 10 Mg Tablet, 10 MG PO DAILY, (Reported) Mesalamine 250 Mg Capsule.er, 250 MG PO BID, (Reported) Metoprolol Tartrate 25 Mg Tablet, 25 MG PO BID, (Reported) [place]-3 Acid Ethyl Esters 1 Gm Capsule, 2 G PO BID WITH MEALS, (Reported) Pantoprazole Sodium 40 Mg Tablet.dr, 40 MG PO DAILY, (Reported) Phenazopyridine HCl 200 Mg Tablet, 1 TAB PO Q8H PRN for PAIN, #30 Ref 0 Prescribed by: NITHIN GOODWIN on 05/28/16 2252 Ropinirole Hcl 2 Mg Tablet, 2 MG PO BID, (Reported) Sucralfate 1 Gm Tab, 1 GM PO UD, #120 Ref 0 TAKE BEFORE EACH MEAL AND AT BEDTIME FOR STOMACH Prescribed by: KIT JOHNSON on 10/18/13 2111 Sulfamethoxazole/Trimethoprim 1 Each Tablet, 1 EACH PO BID for 10 Days, #20 Ref 0 Prescribed by: SALTY MENDEZ on 10/13/16 0158 Topiramate 50 Mg Tablet, 50 MG PO HS, (Reported) Review of Systems Constitutional: see HPI, chills, fever, malaise Eyes: No Symptoms Reported Ears: No Symptoms Reported Nose: denies congestion, denies pain Mouth: see HPI, pain, swelling (right lower gum swelling) Throat: denies pain, denies swelling, denies neck stiffness, denies hoarse, denies muffled, denies painful swallowing, denies difficulty with fluids Respiratory: no symptoms reported Cardiovascular: no symptoms reported Gastrointestinal: no symptoms reported Skin: no symptoms reported Neurological: No Symptoms Reported All Other Systems Reviewed Negative Unless Noted: Yes (Negative excepted noted.) Past Xadvzib-Lgghbm-Yfykex Hx Patient Social History Alcohol Use: Denies Use Recreational Drug Use: No Smoking Status: Current Everyday Smoker Type Used: Cigarettes Recent Foreign Travel: No Contact w/Someone Who Travel: No Recent Infectious Disease Expo: No Recent Hopitalizations: No Immunizations Up To Date Tetanus Booster (TDap): Unknown Date of Influenza Vaccine: Dec 01, 2013 Seasonal Allergies Seasonal Allergies: No Surgeries HX Surgeries: Yes (LAP EVELIO, BACK SURGERY, FINGER) Surgeries: Gallbladder, Orthopedic Respiratory Hx Respiratory Disorders: Yes (C-PAP MACHINE) Respiratory Disorders: Sleep Apnea, COPD Cardiovascular Hx Cardiac Disorders: Yes Cardiac Disorders: High Cholesterol, Hypertension Neurological Hx Neurological Disorders: No Reproductive System Hx Reproductive Disorders: No Sexually Transmitted Disease: No HIV/AIDS: No Genitourinary Hx Genitourinary Disorders: Yes Genitourinary Disorders: Kidney Stones Gastrointestinal Hx Gastrointestinal Disorders: Yes (TAKES MEDS) Gastrointestinal Disorders: Colitis, Gastroesophageal Reflux Musculoskeletal Hx Musculoskeletal Disorders: Yes Musculoskeletal Disorders: Arthritis, Chronic Back Pain Endocrine Hx Endocrine Disorders: No HEENT HX ENT Disorders: No Cancer Hx Cancer: No Psychosocial Hx Psychiatric Problems: Yes (BIPOLAR, TAKES MEDS) Behavioral Health Disorders: Anxiety, Bipolar, Depression Integumentary HX Skin/Integumentary Disorder: No Blood Transfusions Hx Blood Disorders: No Adverse Reaction to a Blood Tr: No Reviewed Nursing Assessment Reviewed/Agree w Nursing PMH: Yes Family Medical History Significant Family History: No Pertinent Family Hx Physical Exam Vital Signs Vital Sign - Last 12Hours 10/12/16 13:40 Temp 95.3 Pulse 110 Resp 20 B/P (MAP) 148/93 Pulse Ox 96 O2 Delivery Room Air General Appearance: WD/WN, no apparent distress Eyes: bilateral eye EOMI, bilateral eye PERRL, bilateral eye normal inspection Ears: bilateral ear TM normal, bilateral ear auricle normal, bilateral ear canal normal Nose: normal inspection Mouth/Throat: pharynx normal, dental tenderness (right lower dental tenderness with swelling of the gums. no active drainage noted. multiple dental caries and fractured teeth noted.), No excessive drooling, mandibular swelling (rt mandibular swelling and tenderness noted.), No maxillary swelling Neck: non-tender, full range of motion, supple, lymphadenopathy (R), lymphadenopathy (L) Cardiovascular: regular rate, rhythm, no murmur Respiratory: lungs clear, normal breath sounds, no respiratory distress Neurologic/Psychiatric: alert, normal mood/affect, oriented x 3 Skin: normal color, warm/dry Progress/Results/Core Measures Results/Orders Lab Results Laboratory Tests Test 10/12/16 14:45 Range/Units White Blood Count 7.5 4.3-11.0 10^3/uL Red Blood Count 5.54 4.35-5.85 10^6/uL Hemoglobin 16.8 13.3-17.7 G/DL Hematocrit 50 40-54 % Mean Corpuscular Volume 91 80-99 FL Mean Corpuscular Hemoglobin 30 25-34 PG Mean Corpuscular Hemoglobin Concent 33 32-36 G/DL Red Cell Distribution Width 14.9 H 10.0-14.5 % Platelet Count 174 130-400 10^3/uL Mean Platelet Volume 10.7 H 7.4-10.4 FL Neutrophils (%) (Auto) 71 42-75 % Lymphocytes (%) (Auto) 15 12-44 % Monocytes (%) (Auto) 12 0-12 % Eosinophils (%) (Auto) 1 0-10 % Basophils (%) (Auto) 1 0-10 % Neutrophils # (Auto) 5.3 1.8-7.8 X 10^3 Lymphocytes # (Auto) 1.1 1.0-4.0 X 10^3 Monocytes # (Auto) 0.9 0.0-1.0 X 10^3 Eosinophils # (Auto) 0.1 0.0-0.3 10^3/uL Basophils # (Auto) 0.1 0.0-0.1 10^3/uL Prothrombin Time 11.8 L 12.2-14.7 SEC INR Comment 0.9 0.8-1.4 Activated Partial Thromboplast Time 28 24-35 SEC Sodium Level 138 135-145 MMOL/L Potassium Level 3.9 3.6-5.0 MMOL/L Chloride Level 107 98-107 MMOL/L Carbon Dioxide Level 20 L 21-32 MMOL/L Anion Gap 11 5-14 MMOL/L Blood Urea Nitrogen 12 7-18 MG/DL Creatinine 1.42 H 0.60-1.30 MG/DL Estimat Glomerular Filtration Rate 54 BUN/Creatinine Ratio 8 Glucose Level 121 H 70-105 MG/DL Lactic Acid Level 1.94 0.50-2.00 MMOL/L Calcium Level 9.9 8.5-10.1 MG/DL Total Bilirubin 0.5 0.1-1.0 MG/DL Aspartate Amino Transf (AST/SGOT) 27 5-34 U/L Alanine Aminotransferase (ALT/SGPT) 40 0-55 U/L Alkaline Phosphatase 63 40-136 U/L Total Protein 7.2 6.4-8.2 GM/DL Albumin 4.3 3.2-4.5 GM/DL Micro Results Microbiology 10/12/16 Blood Culture - Preliminary, Resulted No growth 10/12/16 Blood Culture - Preliminary, Resulted No growth My Orders Orders - NITHIN GOODWIN Cbc With Automated Diff (10/12/16 14:31) Comprehensive Metabolic Panel (10/12/16 14:31) Lactic Acid Analyzer (10/12/16 14:31) Blood Culture (10/12/16 14:31) Protime With Inr (10/12/16 14:31) Partial Thromboplastin Time (10/12/16 14:31) Saline Lock/Iv-Start (10/12/16 14:31) Vital Signs Adult Sepsis Patie Q1HR (10/12/16 14:31) Ceftriaxone Injection (Rocephin Injectio (10/12/16 14:31) Remove Rings In Anticipation O (10/12/16 14:31) Ns Iv 1000 Ml (Sodium Chloride 0.9%) (10/12/16 14:31) Medications Given in ED Vital Signs/I&O Blood Pressure Mean: 111 Departure Communication Progress Notes All laboratory and diagnostic findings were discussed with the patient. Patient is noted to have a normal white blood cell count and lactic acid. Patient reports feeling better with medications. I've given patient 1 g Rocephin as well as 1 L normal saline. Proceed with discharge to home. Patient instructed to follow-up with his dentist of choice for recheck this week as well as possible need for tooth extraction. Impression Impression: Primary Impression: Dental abscess Disposition: HOME, SELF-CARE Condition: Improved Departure-Patient Inst. Decision time for Depature: 15:28 Referrals: ÁNGEL CASPER MD (PCP/Family) Primary Care Physician Patient Instructions: Tooth Abscess (DC) Add. Discharge Instructions: All discharge instructions reviewed with patient and/or family. Voiced understanding. Medications as instructed. Continue usual home medications. Ibuprofen 800 mg by mouth every 8 hours as needed for pain. Ice pack or heating pad as needed for pain. Follow-up with dentist of your choice Friday or Friday for recheck and possible need for tooth extraction. Call for appointment time first thing Friday. Return to the emergency department for worsened pain, swelling, difficulty swallowing, difficulty breathing, fever, or any other concerns. Scripts Amoxicillin (Amoxicillin) 500 Mg Capsule 1000 MG PO TID, #60 CAP 0 Refills Prov: NITHIN GOODWIN 10/12/16 NITHIN GOODWIN Oct 12, 2016 14:13
[2016-10-12] MEDS ORDERED: cefTRIAXone 1 GM (ROCEPHIN) VIAL IV STA (14:31)
[2016-10-12] MEDS ORDERED: NS IV 1000 ML 1,000 ML IV ONE (14:31)
[2016-10-12 14:57] LABS: BASOPHILS # (AUTO) 0.1 10^3/uL (0.0-0.1); BASOPHILS % (AUTO) 1 % (0-10); EOSINOPHILS # (AUTO) 0.1 10^3/uL (0.0-0.3); EOSINOPHILS % (AUTO) 1 % (0-10); LYMPHOCYTES # (AUTO) 1.1 X 10^3 (1.0-4.0); LYMPHOCYTES % (AUTO) 15 % (12-44); MEAN CORPUSCULAR HEMOGLOBIN 30 PG (25-34); MEAN CORPUSCULAR HGB CONC 33 G/DL (32-36); MEAN CORPUSCULAR VOLUME 91 FL (80-99); MEAN PLATELET VOLUME 10.7 FL (7.4-10.4); MONOCYTES # (AUTO) 0.9 X 10^3 (0.0-1.0); MONOCYTES % (AUTO) 12 % (0-12); NEUTROPHILS # (AUTO) 5.3 X 10^3 (1.8-7.8); NEUTROPHILS % (AUTO) 71 % (42-75); PLATELET COUNT 174 10^3/uL (130-400); RED BLOOD COUNT 5.54 10^6/uL (4.35-5.85); RED CELL DISTRIBUTION WIDTH 14.9 % (10.0-14.5); WHITE BLOOD COUNT 7.5 10^3/uL (4.3-11.0)
[2016-10-12 15:05] LABS: INR 0.9 (0.8-1.4); PROTHROMBIN TIME PATIENT 11.8 SEC (12.2-14.7)
[2016-10-12 15:16] LABS: ALBUMIN 4.3 GM/DL (3.2-4.5); BILIRUBIN,TOTAL 0.5 MG/DL (0.1-1.0); CALCIUM 9.9 MG/DL (8.5-10.1); CREATININE SERUM 1.42 MG/DL (0.60-1.30); POTASSIUM 3.9 MMOL/L (3.6-5.0); TOTAL PROTEIN 7.2 GM/DL (6.4-8.2)
[2016-10-12] MEDS ORDERED: AMOX500C2 PO (15:28)
[2016-10-12 15:42] VITALS: BP 145/95
[2016-10-13] MEDS ORDERED: METR250T32 PO (01:01)
[2016-10-13] MEDS ORDERED: SULF1TAB35 PO (01:58)
== END 2016-10-12 15:42 | disposition home or self-care (01) ==
LOC: EDUNIT# 12:40 → ER 12:42
DX: K04.7 Periapical abscess without sinus (principal); G47.30 Sleep apnea, unspecified; J44.9 Chronic obstructive pulmonary disease, unspecified; I10 Essential (primary) hypertension; E78.00 Pure hypercholesterolemia, unspecified; K21.9 Gastro-esophageal reflux disease without esophagitis; M19.90 Unspecified osteoarthritis, unspecified site; F41.9 Anxiety disorder, unspecified; F31.9 Bipolar disorder, unspecified; M54.9 Dorsalgia, unspecified; G89.29 Other chronic pain; F17.210 Nicotine dependence, cigarettes, uncomplicated; Z90.49 Acquired absence of other specified parts of digestive tract
CPT/HCPCS: 36415; 80053; 83605; 85025; 85610; 85730; 87040

== ENCOUNTER 2016-10-12 23:23 | Emergency (ER) | payer MEDICAID ==
[~2016-10-12] VITALS: Ht 175.3 cm; Wt 166.0 kg
--- OUTSIDE RECORDS SUMMARY | 2016-10-12 23:28 | XMS REPORT | Clinical Summary ---
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 If you do not see the information that you expected, contact Release of Information in the Health Information Management department at [phone] for further assistance in locating additional records.[facility] Allergies No Known Allergies Current Medications Prescription [...]
--- NOTE | 2016-10-12 23:56 | ED Fever ---
History of Present Illness General Stated Complaint: BP Source: patient, family (daughter) Exam Limitations: no limitations History of Present Illness Time seen by provider: 23:50 Initial Comments Patient presents to ER by private conveyance with chief complaint of he was seen earlier this afternoon for right lower mandible tooth pain and abscess and was started on an IV antibiotic as well as oral antibiotic home which she took this evening. He was having fever and not feeling well then. This evening he started having a fever again of 101 MAXIMUM TEMPERATURE and blood pressure was 170s over 110 on his home cuff. He is having chills and malaise no nausea chest pain shortness of breath over his chronic shortness of breath. He is not on oxygen at home. He does have COPD. He's had no more cough than usual. Allergies and Home Medications Allergies Coded Allergies: No Known Drug Allergies (Unverified , 12/31/10) Home Medications Amitriptyline HCl 50 Mg Tablet, 50 MG PO HS, (Reported) Amoxicillin 500 Mg Capsule, 1,000 MG PO TID, #60 Ref 0 Prescribed by: NITHIN GOODWIN on 10/12/16 1528 Aripiprazole 15 Mg Tab, 20 TAB PO DAILY, (Reported) DAILY Atorvastatin Calcium 10 Mg Tablet, 10 MG PO HS, (Reported) Bupropion Hcl 100 Mg Tablet, 1 TAB PO TID, #60 (Reported) Ciprofloxacin HCl 500 Mg Tablet, 500 MG PO BID for 7 Days, #14 Ref 0 Prescribed by: NITHIN GOODWIN on 05/28/16 2252 Cyclobenzaprine Hcl 10 Mg Tablet, 1 EACH PO TID PRN for SPASMS, (Reported) Dicyclomine HCl 10 Mg Capsule, 20 MG PO QID, (Reported) Famotidine 20 Mg Tablet, 1 EACH PO BID for 30 Days, Ref 0 Prescribed by: KIT JOHNSON on 10/18/13 2111 Fenofibrate,Micronized 145 Mg Tablet, 145 MG PO DAILY, (Reported) Hydrocodone/Acetaminophen 1 Each Tablet, 1 EACH PO Q6H PRN for PAIN, #14 Ref 0 Prescribed by: NITHIN GOODWIN on 01/15/15 2315 Lisinopril 10 Mg Tablet, 10 MG PO DAILY, (Reported) Mesalamine 250 Mg Capsule.er, 250 MG PO BID, (Reported) Metoprolol Tartrate 25 Mg Tablet, 25 MG PO BID, (Reported) Metronidazole 250 Mg Tablet, 250 MG PO Q8H for 10 Days, #30 Ref 0 Prescribed by: SALTY MENDEZ on 10/13/16 0101 [place]-3 Acid Ethyl Esters 1 Gm Capsule, 2 G PO BID WITH MEALS, (Reported) Pantoprazole Sodium 40 Mg Tablet.dr, 40 MG PO DAILY, (Reported) Phenazopyridine HCl 200 Mg Tablet, 1 TAB PO Q8H PRN for PAIN, #30 Ref 0 Prescribed by: NITHIN GOODWIN on 05/28/16 2252 Ropinirole Hcl 2 Mg Tablet, 2 MG PO BID, (Reported) Sucralfate 1 Gm Tab, 1 GM PO UD, #120 Ref 0 TAKE BEFORE EACH MEAL AND AT BEDTIME FOR STOMACH Prescribed by: KIT JOHNSON on 10/18/132110 Topiramate 50 Mg Tablet, 50 MG PO HS, (Reported) Constitutional: chills, No diaphoresis, No dizziness, fever, malaise EENTM: No blurred vision, No double vision Respiratory: cough (baseline), dyspnea on exertion (baseline), short of breath (baseline), No wheezing Cardiovascular: No chest pain, No palpitations Gastrointestinal: No abdominal pain, No constipation, No diarrhea, No nausea, No vomiting Genitourinary: No discharge, No dysuria Musculoskeletal: No back pain, No joint pain Skin: No pruritus, No rash Psychiatric/Neurological: Denies Headache, Denies Numbness, Denies Paresthesia Past Vuexlrb-Wcoyvv-Ylisrv Hx Patient Social History Alcohol Use: Denies Use Recreational Drug Use: No Smoking Status: Current Everyday Smoker Type Used: Cigarettes Recent Foreign Travel: No Contact w/Someone Who Travel: No Recent Hopitalizations: No Immunizations Up To Date Tetanus Booster (TDap): Unknown Date of Influenza Vaccine: Dec 01, 2013 Seasonal Allergies Seasonal Allergies: No Surgeries HX Surgeries: Yes (LAP EVELIO, BACK SURGERY, FINGER) Surgeries: Gallbladder, Orthopedic Respiratory Hx Respiratory Disorders: Yes (C-PAP MACHINE) Respiratory Disorders: Sleep Apnea, COPD Cardiovascular Hx Cardiac Disorders: Yes Cardiac Disorders: High Cholesterol, Hypertension Neurological Hx Neurological Disorders: No Reproductive System Hx Reproductive Disorders: No Sexually Transmitted Disease: No HIV/AIDS: No Genitourinary Hx Genitourinary Disorders: Yes Genitourinary Disorders: Kidney Stones Gastrointestinal Hx Gastrointestinal Disorders: Yes (TAKES MEDS) Gastrointestinal Disorders: Colitis, Gastroesophageal Reflux Musculoskeletal Hx Musculoskeletal Disorders: Yes Musculoskeletal Disorders: Arthritis, Chronic Back Pain Endocrine Hx Endocrine Disorders: No HEENT HX ENT Disorders: No Cancer Hx Cancer: No Psychosocial Hx Psychiatric Problems: Yes (BIPOLAR, TAKES MEDS) Behavioral Health Disorders: Anxiety, Bipolar, Depression Integumentary HX Skin/Integumentary Disorder: No Blood Transfusions Hx Blood Disorders: No Adverse Reaction to a Blood Tr: No Family Medical History Significant Family History: No Pertinent Family Hx Physical Exam Vital Signs Vital Sign - Last 12Hours 10/12/16 23:41 Temp 101.1 Pulse 122 Resp 24 B/P (MAP) 139/103 Pulse Ox 96 O2 Delivery Room Air Capillary Refill : General Appearance: WD/WN, mild distress Eyes: Bilateral Eye EOMI, Bilateral Eye Normal Inspection, Bilateral Eye PERRL HEENT: PERRL/EOMI, TMs normal, other (profound dental caries and tender right lower mandible edema) Neck: non-tender, supple, normal inspection Respiratory: lungs clear, normal breath sounds, decreased breath sounds Cardiovascular: normal peripheral pulses, regular rate, rhythm Gastrointestinal: normal bowel sounds, non tender Extremities: non-tender, normal inspection, normal capillary refill Neurologic/Psychiatric: alert, oriented x 3 Skin: normal color, diaphoresis Lymphatic: other (shotty right cervical lymphadenopathy) Focused Exam Lactic Acid Level Laboratory Tests Test 10/13/16 00:21 Lactic Acid Level 1.70 MMOL/L (0.50-2.00) Progress/Results/Core Measures Results/Orders Lab Results Laboratory Tests Test 10/13/16 00:21 10/13/16 01:14 Range/Units White Blood Count 8.5 4.3-11.0 10^3/uL Red Blood Count 5.41 4.35-5.85 10^6/uL Hemoglobin 16.4 13.3-17.7 G/DL Hematocrit 49 40-54 % Mean Corpuscular Volume 91 80-99 FL Mean Corpuscular Hemoglobin 30 25-34 PG Mean Corpuscular Hemoglobin Concent 33 32-36 G/DL Red Cell Distribution Width 14.5 10.0-14.5 % Platelet Count 180 130-400 10^3/uL Mean Platelet Volume 11.0 H 7.4-10.4 FL Neutrophils (%) (Auto) 66 42-75 % Lymphocytes (%) (Auto) 19 12-44 % Monocytes (%) (Auto) 12 0-12 % Eosinophils (%) (Auto) 1 0-10 % Basophils (%) (Auto) 1 0-10 % Neutrophils # (Auto) 5.7 1.8-7.8 X 10^3 Lymphocytes # (Auto) 1.6 1.0-4.0 X 10^3 Monocytes # (Auto) 1.1 H 0.0-1.0 X 10^3 Eosinophils # (Auto) 0.1 0.0-0.3 10^3/uL Basophils # (Auto) 0.1 0.0-0.1 10^3/uL Prothrombin Time 12.3 12.2-14.7 SEC INR Comment 0.9 0.8-1.4 Activated Partial Thromboplast Time 31 24-35 SEC Sodium Level 137 135-145 MMOL/L Potassium Level 4.0 3.6-5.0 MMOL/L Chloride Level 106 98-107 MMOL/L Carbon Dioxide Level 18 L 21-32 MMOL/L Anion Gap 13 5-14 MMOL/L Blood Urea Nitrogen 13 7-18 MG/DL Creatinine 1.47 H 0.60-1.30 MG/DL Estimat Glomerular Filtration Rate 52 BUN/Creatinine Ratio 9 Glucose Level 132 H 70-105 MG/DL Lactic Acid Level 1.70 0.50-2.00 MMOL/L Calcium Level 9.5 8.5-10.1 MG/DL Total Bilirubin 0.5 0.1-1.0 MG/DL Aspartate Amino Transf (AST/SGOT) 33 5-34 U/L Alanine Aminotransferase (ALT/SGPT) 43 0-55 U/L Alkaline Phosphatase 66 40-136 U/L Total Protein 7.2 6.4-8.2 GM/DL Albumin 4.2 3.2-4.5 GM/DL Urine Color YELLOW Urine Clarity CLEAR Urine pH 7 5-9 Urine Specific [place] 1.010 L 1.016-1.022 Urine Protein 1+ H NEGATIVE Urine Glucose (UA) NEGATIVE NEGATIVE Urine Ketones NEGATIVE NEGATIVE Urine Nitrite NEGATIVE NEGATIVE Urine Bilirubin NEGATIVE NEGATIVE Urine Urobilinogen NORMAL NORMAL MG/DL Urine Leukocyte Esterase 3+ H NEGATIVE Urine RBC (Auto) 2+ H NEGATIVE Urine RBC 0-2 /HPF Urine WBC 10-25 H /HPF Urine Squamous Epithelial Cells 0-2 /HPF Urine Crystals NONE /LPF Urine Bacteria FEW H /HPF Urine Casts NONE /LPF Urine Mucus NEGATIVE /LPF Urine Culture Indicated YES My Orders Orders - SALTY MENDEZ Cbc With Automated Diff (10/12/16 23:58) Comprehensive Metabolic Panel (10/12/16 23:58) Lactic Acid Analyzer (10/12/16 23:58) Blood Culture (10/12/16 23:58) Sputum Culture (10/12/16 23:58) Ua Culture If Indicated (10/12/16 23:58) Protime With Inr (10/12/16 23:58) Partial Thromboplastin Time (10/12/16 23:58) Chest 1 View, Ap/Pa Only (10/12/16 23:58) O2 (10/12/16 23:58) Saline Lock/Iv-Start (10/12/16 23:58) Saline Lock/Iv-Start (10/12/16 23:58) Vital Signs Adult Sepsis Patie Q1HR (10/12/16 23:58) Remove Rings In Anticipation O (10/12/16 23:58) Saline Lock/Iv-Start (10/12/16 23:58) Ns Iv 1000 Ml (Sodium Chloride 0.9%) (10/12/16 23:58) Metronidazole 500mg/100ml Ivpb (Flagyl 5 (10/13/16 00:00) Albuterol/Ipra Inhalation Soln (Duoneb I (10/13/16 00:30) Svn Sm Volume Nebulizer Rt-Rfs (10/13/16 00:28) Urine Culture (10/13/16 01:14) Medications Given in ED Current Medications Medications Dose Ordered Sig/Saba Route Start Time Stop Time Status Last Admin Dose Admin Albuterol/ Ipratropium 3 ml ONCE ONCE INH 10/13/16 00:30 10/13/16 00:31 DC 10/13/16 00:41 3 ML Metronidazole 100 ml @ 100 mls/hr ONCE ONCE IV 10/13/16 00:00 10/13/16 00:59 DC 10/13/16 00:49 100 MLS/HR Sodium Chloride 1,000 ml @ 0 mls/hr Q0M ONCE IV 10/12/16 23:58 10/13/16 00:08 DC 10/13/16 00:26 1,000 MLS/HR Vital Signs/I&O Vital Sign - Last 12Hours 10/12/16 10/13/16 23:41 00:41 Temp 101.1 Pulse 122 Resp 24 B/P (MAP) 139/103 Pulse Ox 96 97 O2 Delivery Room Air Room Air Progress Note #1: Time: 00:31 Progress Note Patient reports since with fevers despite receiving Rocephin and taking the amoxicillin. We will expand with some gram-negative coverage anaerobic metronidazole IV. We'll look for lactate. Get a sepsis workup. His last lactate was 1.94. Progress Note #2: Time: 00:56 Progress Note Lactate improved from earlier today. We'll give him another liter fluids and Flagyl and have him take Flagyl in addition to the amoxicillin progressive periodontal disease. His creatinine is stable from what is been the last several years around 1.4. No significant white count. Progress Note #3: Time: 01:54 Progress Note Possible UTI seen on the UA. We'll send for culture and have his primary care physician follow-up the results. I'll switch his antibiotics instead of doing Flagyl and amoxicillin we'll just put him on Bactrim which should put he will cover his oral and UTI issues. He plans on calling his dentist Friday to get an appointment to have surgery done. Diagnostic Imaging Diagonstic Imaging: Xray Plain Films/CT/US/NM/MRI: chest Comments Poorly penetrated with left sulci poorly seen. No infiltrates or other acute cardiopulmonary processes noted. Departure Impression Impression: Primary Impression: Periodontal disease Additional Impression: UTI (urinary tract infection) Qualified Codes: N30.01 - Acute cystitis with hematuria Disposition: HOME, SELF-CARE Condition: Stable Departure-Patient Inst. Decision time for Depature: 01:55 Referrals: ÁNGEL CASPER MD (PCP/Family) Primary Care Physician Patient Instructions: Tooth Decay, Adult (DC) Add. Discharge Instructions: Drink plenty of fluids and use Tylenol 1000 mg every 8 hours mixed with ibuprofen 800 mg every 8 hours to control your pain and/or fever. Do not exceed 3000 mg Tylenol in one day combined with the Tylenol that is found in your hydrocodone (325). Stop taking your amoxicillin. Start taking 1 tablet of Bactrim twice a day with meals for 10 days. Follow up with your primary care physician if you have new or worsening symptoms. You may also return to the ER. Follow up with your dentist Friday morning for definitive care of your teeth. Double up on your probiotics by taking one to 2 capsules twice daily. Scripts Sulfamethoxazole/Trimethoprim (Bactrim Ds Tablet) 1 Each Tablet 1 EACH PO BID for 10 Days, #20 TAB 0 Refills Prov: SALTY MENDEZ 10/13/16 Copy Copies To 1: ÁNGEL CASPER MD, TITUS J Oct 12, 2016 23:56
[2016-10-12] MEDS ORDERED: NS IV 1000 ML 1,000 ML IV ONE (23:58)
[2016-10-13] MEDS ORDERED: metroNIDAZOLE 500MG/100ML IVPB 100 ML IV ONE
[2016-10-13] MEDS ORDERED: RT-ALBUTEROL/IPRATROPIUM 3 ML (DUONEB) VIAL INH ONE (00:30)
[2016-10-13 00:35] LABS: BASOPHILS # (AUTO) 0.1 10^3/uL (0.0-0.1); BASOPHILS % (AUTO) 1 % (0-10); EOSINOPHILS # (AUTO) 0.1 10^3/uL (0.0-0.3); EOSINOPHILS % (AUTO) 1 % (0-10); LYMPHOCYTES # (AUTO) 1.6 X 10^3 (1.0-4.0); LYMPHOCYTES % (AUTO) 19 % (12-44); MEAN CORPUSCULAR HEMOGLOBIN 30 PG (25-34); MEAN CORPUSCULAR HGB CONC 33 G/DL (32-36); MEAN CORPUSCULAR VOLUME 91 FL (80-99); MONOCYTES # (AUTO) 1.1 X 10^3 (0.0-1.0); MONOCYTES % (AUTO) 12 % (0-12); NEUTROPHILS # (AUTO) 5.7 X 10^3 (1.8-7.8); NEUTROPHILS % (AUTO) 66 % (42-75); PLATELET COUNT 180 10^3/uL (130-400); RED BLOOD COUNT 5.41 10^6/uL (4.35-5.85); RED CELL DISTRIBUTION WIDTH 14.5 % (10.0-14.5); WHITE BLOOD COUNT 8.5 10^3/uL (4.3-11.0)
[2016-10-13 00:43] LABS: INR 0.9 (0.8-1.4); PROTHROMBIN TIME PATIENT 12.3 SEC (12.2-14.7)
[2016-10-13 00:54] LABS: ALBUMIN 4.2 GM/DL (3.2-4.5); BILIRUBIN,TOTAL 0.5 MG/DL (0.1-1.0); CALCIUM 9.5 MG/DL (8.5-10.1); CREATININE SERUM 1.47 MG/DL (0.60-1.30); TOTAL PROTEIN 7.2 GM/DL (6.4-8.2)
[2016-10-13] MEDS ORDERED: METR250T32 PO (01:01)
[2016-10-13 01:27] LABS: BILIRUBIN,URINE NEGATIVE (NEGATIVE); KETONES,URINE NEGATIVE (NEGATIVE); LEUKOCYTE ESTERASE ,URINE 3+ (NEGATIVE); NITRITE,URINE NEGATIVE (NEGATIVE); PH,URINE 7 (5-9); PROTEIN,URINE 1+ (NEGATIVE); UROBILINOGEN,URINE NORMAL (NORMAL)
[2016-10-13 01:44] LABS: SQUAMOUS EPITHELIAL CELL,UR 0-2 /HPF
[2016-10-13] MEDS ORDERED: SULF1TAB35 PO (01:58)
[2016-10-13 02:12] VITALS: BP 130/91
--- NOTE | 2016-10-13 07:23 | Diagnostic Imaging Report ---
INDICATION: This study is less than optimal due to the patient's body habitus. The exam is also underpenetrated. Allowing for these technical factors the heart is stable in size when compared to the prior exam of 01/26/17. The left lung base is partially obscured. I'm not certain if this is due to pneumonia/atelectasis fluid or whether this is may merely secondary to superimposition of the chest/breast tissue. Left upper lung and right lung are clear. The mediastinum is not widened. The osseous structures are intact. IMPRESSION: 1. The left lung base is obscured. This could be secondary to pneumonia/atelectasis fluid or may be related to the patient's body habitus. If further study is desired, then a followup PA and lateral chest would be recommended. 2. There is no acute cardiopulmonary abnormality noted otherwise. Dictated by: Dictated on workstation # [id number]
== END 2016-10-13 02:12 | disposition home or self-care (01) ==
LOC: EDUNIT# 23:23 → ER 23:24
DX: K05.6 Periodontal disease, unspecified (principal); N39.0 Urinary tract infection, site not specified; G47.30 Sleep apnea, unspecified; J44.9 Chronic obstructive pulmonary disease, unspecified; E78.00 Pure hypercholesterolemia, unspecified; I10 Essential (primary) hypertension; K21.9 Gastro-esophageal reflux disease without esophagitis; M19.90 Unspecified osteoarthritis, unspecified site; M54.9 Dorsalgia, unspecified; G89.29 Other chronic pain; F41.9 Anxiety disorder, unspecified; F31.9 Bipolar disorder, unspecified; F17.210 Nicotine dependence, cigarettes, uncomplicated; Z90.49 Acquired absence of other specified parts of digestive tract; Z87.19 Personal history of other diseases of the digestive system; Z87.442 Personal history of urinary calculi
CPT/HCPCS: 36415; 71010; 80053; 81000; 83605; 85025; 85610; 85730; 87040; 87088; 94640

== ENCOUNTER 2016-10-16 16:31 | Emergency (ER) | payer MEDICAID ==
[~2016-10-16] VITALS: Ht 175.3 cm; Wt 166.0 kg
[~2016-10-16 16:31] MED LIST changes: +METR250T32 PO; +SULF1TAB35 PO
--- NOTE | 2016-10-16 16:55 | ED General ---
General Chief Complaint: Respiratory Problems Stated Complaint: DIZZINESS,NOSE BLEED Source of Information: Patient Exam Limitations: No Limitations History of Present Illness Time Seen by Provider: 16:53 Initial Comments To ER with reports of dizziness, shortness of breath, diaphoresis that began about 30 minutes ago while he was washing dishes. He's never had these symptoms before. He denies chest pain or pressure. He denies nausea or vomiting. Upon arrival to ER his heart rate is 112 sinus, blood pressure 140/ 100. He is diaphoretic. He is wheezing on the right. Timing/Duration: 1/2 Hour Severity: Moderate Associated Systoms: Shortness of Air Allergies and Home Medications Allergies Coded Allergies: No Known Drug Allergies (Unverified , 12/31/10) Home Medications Amitriptyline HCl 50 Mg Tablet, 50 MG PO HS, (Reported) Amoxicillin 500 Mg Capsule, 1,000 MG PO TID, #60 Ref 0 Prescribed by: NITHIN GOODWIN on 10/12/16 1528 Aripiprazole 15 Mg Tab, 20 TAB PO DAILY, (Reported) DAILY Atorvastatin Calcium 10 Mg Tablet, 10 MG PO HS, (Reported) Bupropion Hcl 100 Mg Tablet, 1 TAB PO TID, #60 (Reported) Ciprofloxacin HCl 500 Mg Tablet, 500 MG PO BID for 7 Days, #14 Ref 0 Prescribed by: NITHIN GOODWIN on 05/28/16 2252 Cyclobenzaprine Hcl 10 Mg Tablet, 1 EACH PO TID PRN for SPASMS, (Reported) Dicyclomine HCl 10 Mg Capsule, 20 MG PO QID, (Reported) Famotidine 20 Mg Tablet, 1 EACH PO BID for 30 Days, Ref 0 Prescribed by: KIT JOHNSON on 10/18/13 2111 Fenofibrate,Micronized 145 Mg Tablet, 145 MG PO DAILY, (Reported) Hydrocodone/Acetaminophen 1 Each Tablet, 1 EACH PO Q6H PRN for PAIN, #14 Ref 0 Prescribed by: NITHIN GOODWIN on 01/15/15 2315 Lisinopril 10 Mg Tablet, 10 MG PO DAILY, (Reported) Mesalamine 250 Mg Capsule.er, 250 MG PO BID, (Reported) Metoprolol Tartrate 25 Mg Tablet, 25 MG PO BID, (Reported) Quimby-3 Acid Ethyl Esters 1 Gm Capsule, 2 G PO BID WITH MEALS, (Reported) Pantoprazole Sodium 40 Mg Tablet.dr, 40 MG PO DAILY, (Reported) Phenazopyridine HCl 200 Mg Tablet, 1 TAB PO Q8H PRN for PAIN, #30 Ref 0 Prescribed by: NITHIN GOODWIN on 05/28/162 Ropinirole Hcl 2 Mg Tablet, 2 MG PO BID, (Reported) Sucralfate 1 Gm Tab, 1 GM PO UD, #120 Ref 0 TAKE BEFORE EACH MEAL AND AT BEDTIME FOR STOMACH Prescribed by: KIT JOHNSON on 10/18/13 2111 Sulfamethoxazole/Trimethoprim 1 Each Tablet, 1 EACH PO BID for 10 Days, #20 Ref 0 Prescribed by: SALTY MENDEZ on 10/13/16 0158 Topiramate 50 Mg Tablet, 50 MG PO HS, (Reported) Constitutional: see HPI EENTM: see HPI Respiratory: see HPI, orthopnea, short of breath Cardiovascular: see HPI Genitourinary: no symptoms reported Musculoskeletal: no symptoms reported Skin: no symptoms reported Past [id number] Hx Patient Social History Type Used: Cigarettes Recent Foreign Travel: No Contact w/Someone Who Travel: No Recent Hopitalizations: No Immunizations Up To Date Tetanus Booster (TDap): Unknown Date of Influenza Vaccine: Dec 01, 2013 Seasonal Allergies Seasonal Allergies: No Surgeries HX Surgeries: Yes (LAP EVELIO, BACK SURGERY, FINGER) Surgeries: Gallbladder, Orthopedic Respiratory Hx Respiratory Disorders: Yes (C-PAP MACHINE) Respiratory Disorders: Sleep Apnea, COPD Cardiovascular Hx Cardiac Disorders: Yes Cardiac Disorders: High Cholesterol, Hypertension Neurological Hx Neurological Disorders: No Reproductive System Hx Reproductive Disorders: No Sexually Transmitted Disease: No HIV/AIDS: No Genitourinary Hx Genitourinary Disorders: Yes Genitourinary Disorders: Kidney Stones Gastrointestinal Hx Gastrointestinal Disorders: Yes (TAKES MEDS) Gastrointestinal Disorders: Colitis, Gastroesophageal Reflux Musculoskeletal Hx Musculoskeletal Disorders: Yes Musculoskeletal Disorders: Arthritis, Chronic Back Pain Endocrine Hx Endocrine Disorders: No HEENT HX ENT Disorders: No Cancer Hx Cancer: No Psychosocial Hx Psychiatric Problems: Yes (BIPOLAR, TAKES MEDS) Behavioral Health Disorders: Anxiety, Bipolar, Depression Integumentary HX Skin/Integumentary Disorder: No Blood Transfusions Hx Blood Disorders: No Adverse Reaction to a Blood Tr: No Family Medical History Significant Family History: No Pertinent Family Hx Physical Exam Vital Signs Vital Sign - Last 12Hours 10/16/16 10/16/16 16:35 17:08 Temp 98.1 Pulse 113 Resp 18 B/P (MAP) 149/106 Pulse Ox 98 O2 Delivery Room Air Capillary Refill : General Appearance: No Apparent Distress, Mild Distress, Obese Eyes: Bilateral Eye Normal Inspection, Bilateral Eye PERRL, Bilateral Eye EOMI HEENT: PERRL/EOMI, TMs Normal Neck: Full Range of Motion, Normal Inspection Respiratory: No Accessory Muscle Use, No Respiratory Distress, Wheezing (on the right) Cardiovascular: Normal Peripheral Pulses, Tachycardia Gastrointestinal: Normal Bowel Sounds, Non Tender, Soft Extremity: Normal Capillary Refill Neurologic/Psychiatric: Alert, Oriented x3, No Motor/Sensory Deficits Skin: Normal Color, Diaphoresis Progress/Results/Core Measures Results/Orders Lab Results Laboratory Tests Test 10/16/16 16:40 Range/Units White Blood Count 7.8 4.3-11.0 10^3/uL Red Blood Count 5.34 4.35-5.85 10^6/uL Hemoglobin 16.1 13.3-17.7 G/DL Hematocrit 48 40-54 % Mean Corpuscular Volume 91 80-99 FL Mean Corpuscular Hemoglobin 30 25-34 PG Mean Corpuscular Hemoglobin Concent 33 32-36 G/DL Red Cell Distribution Width 14.6 H 10.0-14.5 % Platelet Count 197 130-400 10^3/uL Mean Platelet Volume 10.9 H 7.4-10.4 FL Neutrophils (%) (Auto) 62 42-75 % Lymphocytes (%) (Auto) 26 12-44 % Monocytes (%) (Auto) 9 0-12 % Eosinophils (%) (Auto) 3 0-10 % Basophils (%) (Auto) 1 0-10 % Neutrophils # (Auto) 4.8 1.8-7.8 X 10^3 Lymphocytes # (Auto) 2.0 1.0-4.0 X 10^3 Monocytes # (Auto) 0.7 0.0-1.0 X 10^3 Eosinophils # (Auto) 0.2 0.0-0.3 10^3/uL Basophils # (Auto) 0.1 0.0-0.1 10^3/uL Prothrombin Time 11.7 L 12.2-14.7 SEC INR Comment 0.9 0.8-1.4 Activated Partial Thromboplast Time 31 24-35 SEC D-Dimer 0.35 0.00-0.49 UG/ML Sodium Level 136 135-145 MMOL/L Potassium Level 4.6 3.6-5.0 MMOL/L Chloride Level 108 H 98-107 MMOL/L Carbon Dioxide Level 19 L 21-32 MMOL/L Anion Gap 9 5-14 MMOL/L Blood Urea Nitrogen 17 7-18 MG/DL Creatinine 1.57 H 0.60-1.30 MG/DL Estimat Glomerular Filtration Rate 48 BUN/Creatinine Ratio 11 Glucose Level 129 H 70-105 MG/DL Calcium Level 9.4 8.5-10.1 MG/DL Magnesium Level 2.6 H 1.8-2.4 MG/DL Total Bilirubin 0.3 0.1-1.0 MG/DL Aspartate Amino Transf (AST/SGOT) 51 H 5-34 U/L Alanine Aminotransferase (ALT/SGPT) 58 H 0-55 U/L Alkaline Phosphatase 67 40-136 U/L Myoglobin 100.5 H 10.0-92.0 NG/ML Troponin I < 0.30 <0.30 NG/ML B-Type Natriuretic Peptide < 10.0 <100.0 PG/ML Total Protein 7.3 6.4-8.2 GM/DL Albumin 4.2 3.2-4.5 GM/DL My Orders Orders - LOGAN SNELL APRN Ekg Tracing (10/16/16 16:43) Saline Lock/Iv-Start (10/16/16 16:43) Monitor-Rhythm Ecg Trace Only (10/16/16 16:43) Cbc With Automated Diff (10/16/16 16:52) Magnesium (10/16/16 16:52) Chest 1 View, Ap/Pa Only (10/16/16 16:52) Cardiac Profile 1 (10/16/16 16:52) Comprehensive Metabolic Panel (10/16/16 16:52) Myoglobin Serum (10/16/16 16:52) Protime With Inr (10/16/16 16:52) Partial Thromboplastin Time (10/16/16 16:52) O2 (10/16/16 16:52) Lipid Panel (10/17/16 06:00) Aspirin Chewable Tablet (Baby Aspirin Ch (10/16/16 17:00) Saline Lock/Iv-Start (10/16/16 16:52) BNP (10/16/16 16:52) Fibrin Degradation Products (10/16/16 16:52) Albuterol/Ipra Inhalation Soln (Duoneb I (10/16/16 17:00) Svn Sm Volume Nebulizer Rt-Rfs (10/16/16 16:52) Ns Iv 1000 Ml (Sodium Chloride 0.9%) (10/16/16 17:00) Methylprednisolone Sod Succ (Solu-Medrol (10/16/16 17:45) Medications Given in ED Current Medications Medications Dose Ordered Sig/Saba Route Start Time Stop Time Status Last Admin Dose Admin Albuterol/ Ipratropium 3 ml ONCE ONCE INH 10/16/16 17:00 10/16/16 17:01 DC 10/16/16 17:06 3 ML Aspirin 324 mg ONCE ONCE PO 10/16/16 17:00 10/16/16 17:01 DC 10/16/16 17:25 324 MG Methylprednisolone Sodium Succinate 125 mg ONCE ONCE IVP 10/16/16 17:45 10/16/16 17:46 DC 10/16/16 17:45 125 MG Vital Signs/I&O Vital Sign - Last 12Hours 10/16/16 10/16/16 16:35 17:08 Temp 98.1 Pulse 113 Resp 18 B/P (MAP) 149/106 Pulse Ox 98 95 O2 Delivery Room Air Departure Communication Progress Notes -[id number]-patient reports that he feels quite a bit better in regards to his shortness of breath after the breathing treatment. Impression Impression: Primary Impression: COPD (chronic obstructive pulmonary disease) with acute bronchitis Disposition: HOME, SELF-CARE Condition: Stable Departure-Patient Inst. Decision time for Depature: 17:51 Referrals: ÁNGEL CASPER MD (PCP/Family) Primary Care Physician Patient Instructions: Chronic Obstructive Pulmonary Disease (COPD), Including Emphysema Add. Discharge Instructions: 1. Medication as directed 2. Return to ER for any worsening 3. See your doctor later this week or next week for recheck. All discharge instructions reviewed with patient and/or family. Voiced understanding. Scripts Azithromycin (Azithromycin) 250 Mg Tablet 250 MG PO UD, #6 TAB TAKE 2 TABLETS ON DAY ONE THEN TAKE 1 TABLET DAILY FOR FOUR MORE DAYS Prov: LOGAN SNELL APRN 10/16/16 Albuterol Sulfate (PROAIR HFA) 1 Puff Puff 2 PUFF IH Q4H Y for WHEEZING, #1 PUFF 2 puffs every 4 hours Prov: LOGAN SNELL APRN 10/16/16 Prednisone (Prednisone) 20 Mg Tab 40 MG PO DAILY, #8 TAB Prov: LOGAN SNELL APRN 10/16/16 LOGAN SNELL APRN Oct 16, 2016 16:55
[2016-10-16 16:58] LABS: BASOPHILS # (AUTO) 0.1 10^3/uL (0.0-0.1); BASOPHILS % (AUTO) 1 % (0-10); EOSINOPHILS # (AUTO) 0.2 10^3/uL (0.0-0.3); EOSINOPHILS % (AUTO) 3 % (0-10); LYMPHOCYTES % (AUTO) 26 % (12-44); MEAN CORPUSCULAR HEMOGLOBIN 30 PG (25-34); MEAN CORPUSCULAR HGB CONC 33 G/DL (32-36); MEAN CORPUSCULAR VOLUME 91 FL (80-99); MEAN PLATELET VOLUME 10.9 FL (7.4-10.4); MONOCYTES # (AUTO) 0.7 X 10^3 (0.0-1.0); MONOCYTES % (AUTO) 9 % (0-12); NEUTROPHILS # (AUTO) 4.8 X 10^3 (1.8-7.8); NEUTROPHILS % (AUTO) 62 % (42-75); PLATELET COUNT 197 10^3/uL (130-400); RED BLOOD COUNT 5.34 10^6/uL (4.35-5.85); RED CELL DISTRIBUTION WIDTH 14.6 % (10.0-14.5); WHITE BLOOD COUNT 7.8 10^3/uL (4.3-11.0)
[2016-10-16] MEDS ORDERED: RT-ALBUTEROL/IPRATROPIUM 3 ML (DUONEB) VIAL INH ONE (17:00)
[2016-10-16] MEDS ORDERED: NS IV 1000 ML 1,000 ML IV SCH (17:00)
[2016-10-16] MEDS ORDERED: ASPIRIN 81 MG CHEW (CHILDREN'S ASA) PO ONE (17:00)
[2016-10-16 17:01] LABS: INR 0.9 (0.8-1.4); PROTHROMBIN TIME PATIENT 11.7 SEC (12.2-14.7)
[2016-10-16 17:12] LABS: ALANINE AMINOTRANSFERASE 58 U/L (0-55); ALBUMIN 4.2 GM/DL (3.2-4.5); ANION GAP 9 MMOL/L (5-14); ASPARTATE AMINO TRANSFERASE 51 U/L (5-34); BILIRUBIN,TOTAL 0.3 MG/DL (0.1-1.0); BLOOD UREA NITROGEN 17 MG/DL (7-18); BUN/CREATININE RATIO 11; CALCIUM 9.4 MG/DL (8.5-10.1); CARBON DIOXIDE 19 MMOL/L (21-32); CHLORIDE 108 MMOL/L (98-107); CREATININE SERUM 1.57 MG/DL (0.60-1.30); GFR ESTIMATED 48; GLUCOSE 129 MG/DL (70-105); MAGNESIUM 2.6 MG/DL (1.8-2.4); POTASSIUM 4.6 MMOL/L (3.6-5.0); SODIUM 136 MMOL/L (135-145); TOTAL PROTEIN 7.3 GM/DL (6.4-8.2)
[2016-10-16 17:18] LABS: MYOGLOBIN SERUM 100.5 NG/ML (10.0-92.0)
--- NOTE | 2016-10-16 17:30 | Diagnostic Imaging Report ---
INDICATION: Dizziness and dyspnea. EXAMINATION: Portable upright view of the chest was obtained. COMPARISON: 10/13/2016. FINDINGS: Overall heart size and pulmonary vascularity remain at the upper limits of normal. There is no evidence of pneumothorax or consolidation. No other significant change is seen. IMPRESSION: Heart size and pulmonary vascularity are at the upper limits of normal without evidence of adverse change since 10/13/2016. Dictated by: Dictated on workstation # [id number]
[2016-10-16] MEDS ORDERED: methylPREDNISolone 125 MG (Solu-MEDROL) VIAL IVP ONE (17:45)
[2016-10-16] MEDS ORDERED: AZIT250T5 PO (17:54)
[2016-10-16] MEDS ORDERED: RT-ALBUINH IH (17:54)
[2016-10-16] MEDS ORDERED: PRD20T PO (17:54)
[2016-10-16 18:04] VITALS: BP 139/82
--- OUTSIDE RECORDS SUMMARY | 2016-10-17 11:18 | XMS REPORT | Clinical Summary ---
Author Author [facility] Organization [facility] Address Unknown Phone Unavailable Care Team Providers Care Manager Regional Sales Name Role Phone PCP Unavailable Source Comments Some departments are not documenting in the electronic medical record. If you do not see the information that you expected, contact Release of Information in the Health Information Management department at [phone] for further assistance in locating additional records.[facility] Allergies No Known Allergies Current Medications Prescription [...]
== END 2016-10-16 18:04 | disposition home or self-care (01) ==
LOC: EDUNIT# 16:31 → ER 16:32
DX: J44.0 Chronic obstructive pulmonary disease with (acute) lower respiratory infection (principal); J20.9 Acute bronchitis, unspecified; G47.30 Sleep apnea, unspecified; I10 Essential (primary) hypertension; E78.00 Pure hypercholesterolemia, unspecified; M19.90 Unspecified osteoarthritis, unspecified site; F41.9 Anxiety disorder, unspecified; F31.9 Bipolar disorder, unspecified; M54.9 Dorsalgia, unspecified; G89.29 Other chronic pain; Z87.19 Personal history of other diseases of the digestive system; Z87.442 Personal history of urinary calculi; Z90.49 Acquired absence of other specified parts of digestive tract
CPT/HCPCS: 36415; 71010; 80053; 83735; 83874; 83880; 84484; 85025; 85379; 85610; 85730; 93041; 94640; 96361; 96374

== ENCOUNTER 2017-03-16 17:23 | Emergency (ER) | payer MEDICAID ==
[~2017-03-16 17:23] MED LIST changes: +ACHD5005 PO; +AZIT250T12 PO; -HYDR-3812 PO; +NAPR-1071 PO; -NAPR500T PO; +RT-ALBUINH IH
--- OUTSIDE RECORDS SUMMARY | 2017-03-16 17:29 | XMS REPORT | Clinical Summary ---
Author Author [facility] Organization [facility] Address Unknown Phone Unavailable Care Team Providers Care [employer] Boss Name Role Phone PCP Unavailable Source Comments Some departments are not documenting in the electronic medical record. If you do not see the information that you expected, contact Release of Information in the Health Information Management department at [phone] for further assistance in locating additional records.[facility] Allergies No Known Allergies Current [...] VACCINE 1980 TETANUS VACCINE 1986 INFLUENZA VACCINE 10/01/2016 Results Not on filefrom Last 3 Months
--- OUTSIDE RECORDS SUMMARY | 2017-03-16 17:32 | XMS REPORT | Continuity of Care Document ---
Author Author [facility] Organization [facility] Address Unknown Phone Unavailable Allergies Active Description Code Type Severity Reaction Onset Reported/Identified Relationship to Patient Clinical Status Yes No Known Drug Allergies [id number] Drug Allergy Unknown N/A 12/31/2010 Medications There is no data. Problems Date Dx Coded Attending Type Code Diagnosis Diagnosed By 01/01/2011 Ot 272.4 HYPERLIPIDEMIA NEC/NOS 01/01/2011 Ot 278.00 OBESITY, NOS 01/01/2011 Ot 296.80 BIPOLAR DISORDER, UNSPECIFIED 01/01/2011 Ot 305.1 TOBACCO USE DISORDER 01/01/2011 Ot 401.9 HYPERTENSION NOS 01/01/2011 Ot 780.57 UNSPECIFIED SLEEP APNEA 01/01/2011 Ot 786.59 CHEST PAIN NEC 01/01/2011 Ot V58.66 LONG-TERM ( CURRENT) USE OF ASPIRIN 01/01/2011 Ot V58.69 OTH MED,LT, CURRENT USE 01/01/2011 Ot V85.43 BODY MASS INDEX 50.0-59.9, ADULT 10/26/2011 Ot 295.90 SCHIZOPHRENIA NOS-UNSPEC 10/26/2011 Ot 296.82 ATYPICAL DEPRESSIVE DIS 10/26/2011 Ot 882.0 OPEN WOUND OF HAND 10/26/2011 Ot E000.8 OTHER EXTERNAL CAUSE STATUS 10/26/2011 Ot E849.0 ACCIDENT IN HOME 10/26/2011 Ot E956 ROMEO/SELF-INJ BY CUT INST 10/26/2011 Ot V58.69 OTH MED,LT, CURRENT USE 10/26/2011 Ot V62.84 SUICIDAL IDEATION 09/04/2013 [...] R07.9 CHEST PAIN, UNSPECIFIED 10/10/2015 LOGAN SNELL APRN Ot F17.210 NICOTINE DEPENDENCE, CIGARETTES, UNCOMPL 10/10/2015 OLGAN SNELL APRN Ot K76.0 FATTY (CHANGE OF) [...] Hays Ot V72.84 EXAM PRE-OPERATIVE NOS 01/26/2016 JANET LENNON, LINO Hays Ot 592.9 URINARY CALCULUS NOS 01/27/2016 KRISTIAN CONTRERAS DO Ot F17.210 NICOTINE DEPENDENCE, CIGARETTES, UNCOMPL 01/27/2016 KRISTIAN CONTRERAS DO Ot I10 ESSENTIAL (PRIMARY) HYPERTENSION 01/27/2016 KRISTIAN CONTRERAS DO Ot J44.0 CHRONIC OBSTRUCTIVE PULMON DISEASE W ACU 01/27/2016 KRISTIAN CONTRERAS DO Ot R06.02 SHORTNESS OF BREATH 01/27/2016 DIANE DO, KRISTIAN K Ot R73.9 HYPERGLYCEMIA, UNSPECIFIED 01/27/2016 DIANE DO, KRISTIAN K Ot Z79.899 OTHER SENIOR CARE (CURRENT) DRUG THERAPY 01/29/2016 DIANE DO, KRISTIAN [...] DIANE DO, KRISTIAN K Ot Z79.899 OTHER DISTRIBUTION LEAD (CURRENT) DRUG THERAPY 01/30/2016 DIANE DO, KRISTIAN [...] DIANE DO, KRISTIAN K Ot Z79.899 OTHER SENIOR CARE (CURRENT) DRUG THERAPY 05/28/2016 NITHIN HALL Ot F17.210 NICOTINE DEPENDENCE, CIGARETTES, UNCOMPL 05/28/2016 NITHIN HALL Ot I10 ESSENTIAL (PRIMARY) HYPERTENSION 05/28/2016 NITHIN HALL Ot K40.90 UNIL INGUINAL HERNIA, W/O OBST OR GANGR, 05/28/2016 NITHIN HALL Ot N20.0 CALCULUS OF KIDNEY 05/28/2016 NITHIN HALL Ot N39.0 URINARY TRACT INFECTION, SITE NOT SPECIF 05/28/2016 NITHIN HALL Ot R10.31 RIGHT LOWER QUADRANT PAIN 05/28/2016 NITHIN HALL Ot Z79.899 OTHER DISTRIBUTION LEAD (CURRENT) DRUG THERAPY 05/29/2016 NITHIN HALL Ot F17.210 NICOTINE DEPENDENCE, CIGARETTES, UNCOMPL 05/29/2016 NITHIN HALL Ot I10 ESSENTIAL (PRIMARY) HYPERTENSION 05/29/2016 NITHIN HALL Ot K40.90 UNIL INGUINAL HERNIA, W/O OBST OR GANGR, 05/29/2016 NITHIN HALL Ot N20.0 CALCULUS OF KIDNEY 05/29/2016 NITHIN HALL Ot N39.0 URINARY TRACT INFECTION, SITE NOT SPECIF 05/29/2016 NITHIN HALL Ot R10.31 RIGHT LOWER QUADRANT PAIN 05/29/2016 NITHIN HALL Ot Z79.899 OTHER SENIOR CARE (CURRENT) DRUG THERAPY 05/30/2016 NITHIN HALL Ot F17.210 NICOTINE DEPENDENCE, CIGARETTES, UNCOMPL 05/30/2016 NITHIN HALL Ot I10 ESSENTIAL (PRIMARY) HYPERTENSION 05/30/2016 NITHIN HALL Ot K40.90 UNIL INGUINAL HERNIA, W/O OBST OR GANGR, 05/30/2016 NITHIN HALL Ot N20.0 CALCULUS OF KIDNEY 05/30/2016 NITHIN HALL Ot N39.0 URINARY TRACT INFECTION, SITE NOT SPECIF 05/30/2016 NITHIN HALL Ot R10.31 RIGHT LOWER QUADRANT PAIN 05/30/2016 NITHIN HALL Ot Z79.899 OTHER DISTRIBUTION LEAD (CURRENT) DRUG THERAPY 06/03/2016 NITHIN HALL Ot F17.210 NICOTINE DEPENDENCE, CIGARETTES, UNCOMPL 06/03/2016 NITHIN HALL Ot I10 ESSENTIAL (PRIMARY) HYPERTENSION 06/03/2016 NITHIN HALL Ot K40.90 UNIL INGUINAL HERNIA, W/O OBST OR GANGR, 06/03/2016 NITHIN HALL Ot N20.0 CALCULUS OF KIDNEY 06/03/2016 NITHIN HALL Ot N39.0 URINARY TRACT INFECTION, SITE NOT SPECIF 06/03/2016 NITHIN HALL Ot R10.31 RIGHT LOWER QUADRANT PAIN 06/03/2016 NITHIN HALL Ot Z79.899 OTHER SENIOR CARE (CURRENT) DRUG THERAPY 10/12/2016 NITHIN HALL Ot E78.00 PURE HYPERCHOLESTEROLEMIA, UNSPECIFIED 10/12/2016 NITHIN HALL Ot F17.210 NICOTINE DEPENDENCE, CIGARETTES, UNCOMPL 10/12/2016 NITHIN HALL Ot F31.9 BIPOLAR DISORDER, UNSPECIFIED 10/12/2016 NITHIN HALL Ot F41.9 ANXIETY DISORDER, UNSPECIFIED 10/12/2016 NITHIN HALL Ot G47.30 SLEEP APNEA, UNSPECIFIED 10/12/2016 NITHIN HALL Ot G89.29 OTHER CHRONIC PAIN 10/12/2016 NITHIN HALL Ot I10 ESSENTIAL (PRIMARY) HYPERTENSION 10/12/2016 NITHIN HALL Ot J44.9 CHRONIC OBSTRUCTIVE PULMONARY DISEASE, U 10/12/2016 NITHIN HALL Ot K04.7 PERIAPICAL ABSCESS WITHOUT SINUS 10/12/2016 NITHIN HALL Ot K08.89 OTHER SPECIFIED DISORDERS OF TEETH AND S 10/12/2016 NITHIN HALL Ot K21.9 GASTRO-ESOPHAGEAL REFLUX DISEASE WITHOUT 10/12/2016 NITHIN HALL Ot M19.90 UNSPECIFIED OSTEOARTHRITIS, UNSPECIFIED 10/12/2016 NITHIN AHLL Ot M54.9 DORSALGIA, UNSPECIFIED 10/12/2016 NITHIN HALL Ot Z90.49 ACQUIRED ABSENCE OF OTHER SPECIFIED PART 10/13/2016 SALTY MENDEZ MD Ot E78.00 PURE HYPERCHOLESTEROLEMIA, UNSPECIFIED 10/13/2016 SALTY MENDEZ MD Ot F17.210 NICOTINE DEPENDENCE, CIGARETTES, UNCOMPL 10/13/2016 SALTY MENDEZ MD Ot F31.9 BIPOLAR DISORDER, UNSPECIFIED 10/13/2016 SALTY MENDEZ MD Ot F41.9 ANXIETY DISORDER, UNSPECIFIED 10/13/2016 SALTY MENDEZ MD Ot G47.30 SLEEP APNEA, UNSPECIFIED 10/13/2016 SALTY MENDEZ MD Ot G89.29 OTHER CHRONIC PAIN 10/13/2016 SALTY MENDEZ MD J Ot I10 ESSENTIAL (PRIMARY) HYPERTENSION 10/13/2016 SALTY MENDEZ MD J Ot J44.9 CHRONIC OBSTRUCTIVE PULMONARY DISEASE, U 10/13/2016 SALTY MENDEZ MD J Ot K05.6 PERIODONTAL DISEASE, UNSPECIFIED 10/13/2016 SALTY MENDEZ MD J Ot K21.9 GASTRO-ESOPHAGEAL REFLUX DISEASE WITHOUT 10/13/2016 SALTY MENDEZ MD Ot M19.90 UNSPECIFIED OSTEOARTHRITIS, UNSPECIFIED 10/13/2016 SALTY MENDEZ MD Ot M54.9 DORSALGIA, UNSPECIFIED 10/13/2016 SALTY MENDEZ MD Ot N39.0 URINARY TRACT INFECTION, SITE NOT SPECIF 10/13/2016 SALTY MENDEZ MD Ot R50.9 FEVER, UNSPECIFIED 10/13/2016 SALTY MENDEZ MD Ot Z87.19 PERSONAL HISTORY OF OTHER DISEASES OF 10/13/2016 SALTY MENDEZ MD Ot Z87.442 PERSONAL HISTORY OF URINARY CALCULI 10/13/2016 SALTY MENDEZ MD Ot Z90.49 ACQUIRED ABSENCE OF OTHER SPECIFIED PART 10/14/2016 SALTY MENDEZ MD Ot E78.00 PURE HYPERCHOLESTEROLEMIA, UNSPECIFIED 10/14/2016 SALTY MENDEZ MD Ot F17.210 NICOTINE DEPENDENCE, CIGARETTES, UNCOMPL 10/14/2016 SALTY MENDEZ MD Ot F31.9 BIPOLAR DISORDER, UNSPECIFIED 10/14/2016 SALTY MENDEZ MD Ot F41.9 ANXIETY DISORDER, UNSPECIFIED 10/14/2016 SALTY MENDEZ MD Ot G47.30 SLEEP APNEA, UNSPECIFIED 10/14/2016 SALTY MENDEZ MD Ot G89.29 OTHER CHRONIC PAIN 10/14/2016 SALTY MENDEZ MD Ot I10 ESSENTIAL (PRIMARY) HYPERTENSION 10/14/2016 SALTY MENDEZ MD Ot J44.9 CHRONIC OBSTRUCTIVE PULMONARY DISEASE, U 10/14/2016 SALTY MENDEZ MD Ot K05.6 PERIODONTAL DISEASE, UNSPECIFIED 10/14/2016 SALTY MENDEZ MD Ot K21.9 GASTRO-ESOPHAGEAL REFLUX DISEASE WITHOUT 10/14/2016 SALTY MENDEZ MD Ot M19.90 UNSPECIFIED OSTEOARTHRITIS, UNSPECIFIED 10/14/2016 SALTY MENDEZ MD Ot M54.9 DORSALGIA, UNSPECIFIED 10/14/2016 SALTY MENDEZ MD Ot N39.0 URINARY TRACT INFECTION, SITE NOT SPECIF 10/14/2016 SALTY MENDEZ MD Ot R50.9 FEVER, UNSPECIFIED 10/14/2016 SALTY MENDEZ MD Ot Z87.19 PERSONAL HISTORY OF OTHER DISEASES OF 10/14/2016 VANESSA LENNON, SALTY Banks Ot Z87.442 PERSONAL HISTORY OF URINARY CALCULI 10/14/2016 SALTY MENDEZ MD Ot Z90.49 ACQUIRED ABSENCE OF OTHER SPECIFIED PART 10/16/2016 LOGAN SNELL APRN Ot E78.00 PURE HYPERCHOLESTEROLEMIA, UNSPECIFIED 10/16/2016 LOGAN SNELL APRN Ot F31.9 BIPOLAR DISORDER, UNSPECIFIED 10/16/2016 LOGAN SNELL APRN Ot F41.9 ANXIETY DISORDER, UNSPECIFIED 10/16/2016 LOGAN SNELL APRN Ot G47.30 SLEEP APNEA, UNSPECIFIED 10/16/2016 LOGAN SNELL APRN Ot G89.29 OTHER CHRONIC PAIN 10/16/2016 LOGAN SNELL APRN Ot I10 ESSENTIAL (PRIMARY) HYPERTENSION 10/16/2016 LOGAN SNELL APRN Ot J20.9 ACUTE BRONCHITIS, UNSPECIFIED 10/16/2016 LOGAN SNELL APRN Ot J44.0 CHRONIC OBSTRUCTIVE PULMON DISEASE W ACU 10/16/2016 LOGAN SNELL APRN Ot M19.90 UNSPECIFIED OSTEOARTHRITIS, UNSPECIFIED 10/16/2016 LOGAN SNELL APRN Ot M54.9 DORSALGIA, UNSPECIFIED 10/16/2016 LOGAN SNELL APRN Ot R42 DIZZINESS AND GIDDINESS 10/16/2016 LOGAN SNELL APRN Ot Z87.19 PERSONAL HISTORY OF OTHER DISEASES OF 10/16/2016 LOGAN SNELL APRN Ot Z87.442 PERSONAL HISTORY OF URINARY CALCULI 10/16/2016 LOGAN SNELL APRN Ot Z90.49 ACQUIRED ABSENCE OF OTHER SPECIFIED PART 10/18/2016 LOGAN SNELL APRN Ot E78.00 PURE HYPERCHOLESTEROLEMIA, UNSPECIFIED 10/18/2016 LOGAN SNELL APRN Ot F31.9 BIPOLAR DISORDER, UNSPECIFIED 10/18/2016 LOGAN SNELL APRN Ot F41.9 ANXIETY DISORDER, UNSPECIFIED 10/18/2016 LOGAN SNELL APRN Ot G47.30 SLEEP APNEA, UNSPECIFIED 10/18/2016 LOGAN SNELL APRN Ot G89.29 OTHER CHRONIC PAIN 10/18/2016 LOGAN SNELL APRN Ot I10 ESSENTIAL (PRIMARY) HYPERTENSION 10/18/2016 LOGAN SNELL APRN Ot J20.9 ACUTE BRONCHITIS, UNSPECIFIED 10/18/2016 LOGAN SNELL RELIABILITY MANAGER Ot J44.0 CHRONIC OBSTRUCTIVE PULMON DISEASE W ACU 10/18/2016 LOGAN SNELL APRN Ot M19.90 UNSPECIFIED OSTEOARTHRITIS, UNSPECIFIED 10/18/2016 LOGAN SNELL APRN Ot M54.9 DORSALGIA, UNSPECIFIED 10/18/2016 LOGAN SNELL APRN Ot R42 DIZZINESS AND GIDDINESS 10/18/2016 LOGAN SNELL APRN Ot Z87.19 PERSONAL HISTORY OF OTHER DISEASES OF TH 10/18/2016 LOGAN SNELL APRN Ot Z87.442 PERSONAL HISTORY OF URINARY CALCULI 10/18/2016 LOGAN SNELL APRN Ot Z90.49 ACQUIRED ABSENCE OF OTHER SPECIFIED PART 10/18/2016 NITHIN HALL Ot E78.00 PURE HYPERCHOLESTEROLEMIA, UNSPECIFIED 10/18/2016 NITHIN HALL Ot F17.210 NICOTINE DEPENDENCE, CIGARETTES, UNCOMPL 10/18/2016 NITHIN HALL Ot F31.9 BIPOLAR DISORDER, UNSPECIFIED 10/18/2016 NITHIN HALL Ot F41.9 ANXIETY DISORDER, UNSPECIFIED 10/18/2016 NITHIN HALL Ot G47.30 SLEEP APNEA, UNSPECIFIED 10/18/2016 NITHIN HALL Ot G89.29 OTHER CHRONIC PAIN 10/18/2016 NITHIN HALL Ot I10 ESSENTIAL (PRIMARY) HYPERTENSION 10/18/2016 NITHIN HALL Ot J44.9 CHRONIC OBSTRUCTIVE PULMONARY DISEASE, U 10/18/2016 NITHIN HALL Ot K04.7 PERIAPICAL ABSCESS WITHOUT SINUS 10/18/2016 NITHIN HALL Ot K08.89 OTHER SPECIFIED DISORDERS OF TEETH AND S 10/18/2016 NITHIN HALL Ot K21.9 GASTRO-ESOPHAGEAL REFLUX DISEASE WITHOUT 10/18/2016 NITHIN HALL Ot M19.90 UNSPECIFIED OSTEOARTHRITIS, UNSPECIFIED 10/18/2016 NITHIN HALL Ot M54.9 DORSALGIA, UNSPECIFIED 10/18/2016 NITHIN HALL Ot Z90.49 ACQUIRED ABSENCE OF OTHER SPECIFIED PART Procedures There is no data. Results Test Result Range Complete blood count (CBC) with automated white blood cell (WBC) differential - 10/07/15 17:46 Blood leukocytes automated count (number/volume) 8.3 10*3/uL 4.3-11.0 Blood erythrocytes automated count (number/volume) 4.89 10*6/uL 4.35-5.85 Venous blood hemoglobin measurement (mass/volume) 15.4 [...] Automated blood platelet mean volume measurement 10.7 [foz_us] 7.4-10.4 Automated blood neutrophils/100 leukocytes 64 % [...] Serum or plasma sodium measurement (moles/volume) 139 mmol/L 135-145 Serum or plasma potassium measurement (moles/volume) 3.7 mmol/L 3.6-5.0 Serum or plasma chloride measurement (moles/volume) 107 mmol/L 98-107 Carbon dioxide 26 mmol/L 21-32 Serum or plasma anion gap determination (moles/volume) 6 mmol/L 5-14 Serum or plasma urea nitrogen measurement (mass/volume) 12 mg/dL 7-18 Serum or plasma creatinine measurement (mass/volume) 1.44 mg/dL 0.60-1.30 Serum or plasma urea nitrogen/creatinine mass [...] or plasma troponin i.cardiac measurement (mass/volume) < ng/ mL <0.30 Myoglobin, serum - 10/07/15 17:46 Myoglobin, serum 77.7 ng/mL 10.0-92.0 Serum or plasma lithium measurement (moles/volume) - 10/07/15 17:46 BNP level 26.7 pg/mL <100.0 Hemoglobin A1c - 10/07/15 17:46 Hemoglobin A1c 5.6 % 4.5-6.2 Complete blood count (CBC) with automated white blood cell (WBC) differential - 01/26/16 23:39 Blood leukocytes automated count (number/volume) 11.6 10*3/uL 4.3-11.0 Blood erythrocytes automated count (number/volume) 5.34 10*6/uL 4.35-5.85 Venous blood hemoglobin measurement (mass/volume) 17.1 [...] Automated blood platelet mean volume measurement 10.6 [foz_us] 7.4-10.4 Automated blood neutrophils/100 leukocytes 63 % [...] FOR INFLUENZA A AND B ANTIGENS BY [facility]) Comprehensive metabolic panel - 01/27/16 00:08 Serum or plasma sodium measurement (moles/volume) 137 mmol/L 135-145 Serum or plasma potassium measurement (moles/volume) 3.5 mmol/L 3.6-5.0 Serum or plasma chloride measurement (moles/volume) 108 mmol/L 98-107 Carbon dioxide 17 mmol/L 21-32 Serum or plasma anion gap determination (moles/volume) 12 mmol/L 5-14 Serum or plasma urea nitrogen measurement (mass/volume) 17 mg/dL 7-18 Serum or plasma creatinine measurement (mass/volume) 1.45 mg/dL 0.60-1.30 Serum or plasma urea nitrogen/creatinine mass [...] or plasma troponin i.cardiac measurement (mass/volume) < ng/ mL <0.30 Complete urinalysis with reflex to culture - 05/28/16 21:02 Urine color determination YELLOW NRG Urine clarity determination SLIGHTLY CLOUDY NRG Urine pH measurement by test strip 7 5-9 Specific gravity of urine by test strip 1.010 1.016- 1.022 Urine protein assay by test strip, semi-quantitative [...] 05/28/16 21:02 Gonorrhea amp DNA-urine Negative Negative Complete blood count (CBC) with automated white blood cell (WBC) differential - 10/12/16 14:45 Blood leukocytes automated count (number/volume) 7.5 10*3/uL 4.3-11.0 Blood erythrocytes automated count (number/volume) 5.54 10*6/uL 4.35-5.85 Venous blood hemoglobin measurement (mass/volume) 16.8 g/dL 13.3-17.7 Blood hematocrit (volume fraction) 50 % 40-54 Automated erythrocyte mean corpuscular volume 91 [foz_us] 80-99 Automated erythrocyte mean corpuscular hemoglobin (mass per erythrocyte) 30 pg 25-34 Automated erythrocyte mean corpuscular hemoglobin concentration measurement ( mass/volume) 33 g/dL 32-36 Automated erythrocyte distribution width ratio 14.9 % 10.0-14.5 Automated blood platelet count (count/volume) 174 10*3/uL 130-400 Automated blood platelet mean volume measurement 10.7 [foz_us] 7.4-10.4 Automated blood neutrophils/100 leukocytes 71 % 42-75 Automated blood lymphocytes/100 leukocytes 15 % 12-44 Blood monocytes/100 leukocytes 12 % 0-12 Automated blood eosinophils/100 leukocytes 1 % 0-10 Automated blood basophils/100 leukocytes 1 % 0-10 Blood neutrophils automated count (number/volume) 5.3 10*3 1.8-7.8 Blood lymphocytes automated count (number/volume) 1.1 10*3 1.0-4.0 Blood monocytes automated count (number/volume) 0.9 10*3 0.0-1.0 Automated eosinophil count 0.1 10*3/uL 0.0-0.3 Automated blood basophil count (count/volume) 0.1 10*3/uL 0.0-0.1 PT panel in platelet poor plasma by coagulation assay - 10/12/16 14:45 Prothrombin time (PT) in platelet poor plasma by coagulation assay 11.8 s 12.2-14.7 INR in platelet poor plasma or blood by coagulation assay 0.9 0.8-1.4 Activated partial thromboplastin time (aPTT) in platelet poor plasma bycoagulation assay - 10/12/16 14:45 Activated partial thromboplastin time (aPTT) in platelet poor plasma bycoagulation assay 28 s 24-35 Blood lactic acid measurement (moles/volume) - 10/12/16 14:45 Blood lactic acid measurement (moles/volume) 1.94 mmol/L 0.50-2.00 Comprehensive metabolic panel - 10/12/16 14:45 Serum or plasma sodium measurement (moles/volume) 138 mmol/L 135-145 Serum or plasma potassium measurement (moles/volume) 3.9 mmol/L 3.6-5.0 Serum or plasma chloride measurement (moles/volume) 107 mmol/L 98-107 Carbon dioxide 20 mmol/L 21-32 Serum or plasma anion gap determination (moles/volume) 11 mmol/L 5-14 Serum or plasma urea nitrogen measurement (mass/volume) 12 mg/dL 7-18 Serum or plasma creatinine measurement (mass/volume) 1.42 mg/dL 0.60-1.30 Serum or plasma urea nitrogen/creatinine mass ratio 8 NRG Serum or plasma creatinine measurement with calculation of estimated glomerular filtration rate 54 NRG Serum or plasma glucose measurement (mass/volume) 121 mg/dL 70-105 Serum or plasma calcium measurement (mass/volume) 9.9 mg/dL 8.5-10.1 Serum or plasma total bilirubin measurement (mass/volume) 0.5 mg/dL 0.1-1.0 Serum or plasma alkaline phosphatase measurement (enzymatic activity/volume) 63 U/L 40-136 Serum or plasma aspartate aminotransferase measurement (enzymatic activity/ volume) 27 U/L 5-34 Serum or plasma alanine aminotransferase measurement (enzymatic activity/volume ) 40 U/L 0-55 Serum or plasma protein measurement (mass/volume) 7.2 g/dL 6.4-8.2 Serum or plasma albumin measurement (mass/volume) 4.3 g/dL 3.2-4.5 Bacterial blood culture - 10/12/16 14:45 Bacterial blood culture NG NRG Bacterial blood culture - 10/12/16 14:55 Bacterial blood culture NG NRG Complete blood count (CBC) with automated white blood cell (WBC) differential - 10/13/16 00:21 Blood leukocytes automated count (number/volume) 8.5 10*3/uL 4.3-11.0 Blood erythrocytes automated count (number/volume) 5.41 10*6/uL 4.35-5.85 Venous blood hemoglobin measurement (mass/volume) 16.4 g/dL 13.3-17.7 Blood hematocrit (volume fraction) 49 % 40-54 Automated erythrocyte mean corpuscular volume 91 [foz_us] 80-99 Automated erythrocyte mean corpuscular hemoglobin (mass per erythrocyte) 30 pg 25-34 Automated erythrocyte mean corpuscular hemoglobin concentration measurement ( mass/volume) 33 g/dL 32-36 Automated erythrocyte distribution width ratio 14.5 % 10.0-14.5 Automated blood platelet count (count/volume) 180 10*3/uL 130-400 Automated blood platelet mean volume measurement 11.0 [foz_us] 7.4-10.4 Automated blood neutrophils/100 leukocytes 66 % 42-75 Automated blood lymphocytes/100 leukocytes 19 % 12-44 Blood monocytes/100 leukocytes 12 % 0-12 Automated blood eosinophils/100 leukocytes 1 % 0-10 Automated blood basophils/100 leukocytes 1 % 0-10 Blood neutrophils automated count (number/volume) 5.7 10*3 1.8-7.8 Blood lymphocytes automated count (number/volume) 1.6 10*3 1.0-4.0 Blood monocytes automated count (number/volume) 1.1 10*3 0.0-1.0 Automated eosinophil count 0.1 10*3/uL 0.0-0.3 Automated blood basophil count (count/volume) 0.1 10*3/uL 0.0-0.1 Blood lactic acid measurement (moles/volume) - 10/13/16 00:21 Blood lactic acid measurement (moles/volume) 1.70 mmol/L 0.50-2.00 Comprehensive metabolic panel - 10/13/16 00:21 Serum or plasma sodium measurement (moles/volume) 137 mmol/L 135-145 Serum or plasma potassium measurement (moles/volume) 4.0 mmol/L 3.6-5.0 Serum or plasma chloride measurement (moles/volume) 106 mmol/L 98-107 Carbon dioxide 18 mmol/L 21-32 Serum or plasma anion gap determination (moles/volume) 13 mmol/L 5-14 Serum or plasma urea nitrogen measurement (mass/volume) 13 mg/dL 7-18 Serum or plasma creatinine measurement (mass/volume) 1.47 mg/dL 0.60-1.30 Serum or plasma urea nitrogen/creatinine mass ratio 9 NRG Serum or plasma creatinine measurement with calculation of estimated glomerular filtration rate 52 NRG Serum or plasma glucose measurement (mass/volume) 132 mg/dL 70-105 Serum or plasma calcium measurement (mass/volume) 9.5 mg/dL 8.5-10.1 Serum or plasma total bilirubin measurement (mass/volume) 0.5 mg/dL 0.1-1.0 Serum or plasma alkaline phosphatase measurement (enzymatic activity/volume) 66 U/L 40-136 Serum or plasma aspartate aminotransferase measurement (enzymatic activity/ volume) 33 U/L 5-34 Serum or plasma alanine aminotransferase measurement (enzymatic activity/volume ) 43 U/L 0-55 Serum or plasma protein measurement (mass/volume) 7.2 g/dL 6.4-8.2 Serum or plasma albumin measurement (mass/volume) 4.2 g/dL 3.2-4.5 PT panel in platelet poor plasma by coagulation assay - 10/13/16 00:21 Prothrombin time (PT) in platelet poor plasma by coagulation assay 12.3 s 12.2-14.7 INR in platelet poor plasma or blood by coagulation assay 0.9 0.8-1.4 Activated partial thromboplastin time (aPTT) in platelet poor plasma bycoagulation assay - 10/13/16 00:21 Activated partial thromboplastin time (aPTT) in platelet poor plasma bycoagulation assay 31 s 24-35 Bacterial blood culture - 10/13/16 00:21 Bacterial blood culture NG NRG Bacterial blood culture - 10/13/16 00:50 Bacterial blood culture NG NRG Complete urinalysis with reflex to culture - 10/13/16 01:14 Urine color determination YELLOW NRG Urine clarity determination CLEAR NRG Urine pH measurement by test strip 7 5-9 Specific gravity of urine by test strip 1.010 1.016- 1.022 Urine protein assay by test strip, semi-quantitative 1+ NEGATIVE Urine glucose detection by automated test strip NEGATIVE NEGATIVE Erythrocytes detection in urine sediment by light microscopy 2+ NEGATIVE Urine ketones detection by automated test strip NEGATIVE NEGATIVE Urine nitrite detection by test strip NEGATIVE NEGATIVE Urine total bilirubin detection by test strip NEGATIVE NEGATIVE Urine urobilinogen measurement by automated test strip (mass/volume) NORMAL NORMAL Urine leukocyte esterase detection by dipstick 3+ NEGATIVE Automated urine sediment erythrocyte count by microscopy (number/high power field) [HPF] NRG Automated urine sediment leukocyte count by microscopy (number/high power field ) [HPF] NRG Bacteria detection in urine sediment by light microscopy FEW NRG Squamous epithelial cells detection in urine sediment by light microscopy 0-2 NRG Crystals detection in urine sediment by light microscopy NONE NRG Casts detection in urine sediment by light microscopy NONE NRG Mucus detection in urine sediment by light microscopy NEGATIVE NRG Complete urinalysis with reflex to culture YES NRG Bacterial urine culture - 10/13/16 01:14 Bacterial urine culture [id number] NRG COLONY COUNT <10,000 NRG Complete blood count (CBC) with automated white blood cell (WBC) differential - 10/16/16 16:40 Blood leukocytes automated count (number/volume) 7.8 10*3/uL 4.3-11.0 Blood erythrocytes automated count (number/volume) 5.34 10*6/uL 4.35-5.85 Venous blood hemoglobin measurement (mass/volume) 16.1 g/dL 13.3-17.7 Blood hematocrit (volume fraction) 48 % 40-54 Automated erythrocyte mean corpuscular volume 91 [foz_us] 80-99 Automated erythrocyte mean corpuscular hemoglobin (mass per erythrocyte) 30 pg 25-34 Automated erythrocyte mean corpuscular hemoglobin concentration measurement ( mass/volume) 33 g/dL 32-36 Automated erythrocyte distribution width ratio 14.6 % 10.0-14.5 Automated blood platelet count (count/volume) 197 10*3/uL 130-400 Automated blood platelet mean volume measurement 10.9 [foz_us] 7.4-10.4 Automated blood neutrophils/100 leukocytes 62 % 42-75 Automated blood lymphocytes/100 leukocytes 26 % 12-44 Blood monocytes/100 leukocytes 9 % 0-12 Automated blood eosinophils/100 leukocytes 3 % 0-10 Automated blood basophils/100 leukocytes 1 % 0-10 Blood neutrophils automated count (number/volume) 4.8 10*3 1.8-7.8 Blood lymphocytes automated count (number/volume) 2.0 10*3 1.0-4.0 Blood monocytes automated count (number/volume) 0.7 10*3 0.0-1.0 Automated eosinophil count 0.2 10*3/uL 0.0-0.3 Automated blood basophil count (count/volume) 0.1 10*3/uL 0.0-0.1 PT panel in platelet poor plasma by coagulation assay - 10/16/16 16:40 Prothrombin time (PT) in platelet poor plasma by coagulation assay 11.7 s 12.2-14.7 INR in platelet poor plasma or blood by coagulation assay 0.9 0.8-1.4 Activated partial thromboplastin time (aPTT) in platelet poor plasma bycoagulation assay - 10/16/16 16:40 Activated partial thromboplastin time (aPTT) in platelet poor plasma bycoagulation assay 31 s 24-35 Fibrin D-dimer FEU measurement in platelet poor plasma (mass/volume) - 16:40 Fibrin D-dimer FEU measurement in platelet poor plasma (mass/volume) 0.35 ug/mL 0.00-0.49 Comprehensive metabolic panel - 10/16/16 16:40 Serum or plasma sodium measurement (moles/volume) 136 mmol/L 135-145 Serum or plasma potassium measurement (moles/volume) 4.6 mmol/L 3.6-5.0 Serum or plasma chloride measurement (moles/volume) 108 mmol/L 98-107 Carbon dioxide 19 mmol/L 21-32 Serum or plasma anion gap determination (moles/volume) 9 mmol/L 5-14 Serum or plasma urea nitrogen measurement (mass/volume) 17 mg/dL 7-18 Serum or plasma creatinine measurement (mass/volume) 1.57 mg/dL 0.60-1.30 Serum or plasma urea nitrogen/creatinine mass ratio 11 NRG Serum or plasma creatinine measurement with calculation of estimated glomerular filtration rate 48 NRG Serum or plasma glucose measurement (mass/volume) 129 mg/dL 70-105 Serum or plasma calcium measurement (mass/volume) 9.4 mg/dL 8.5-10.1 Serum or plasma total bilirubin measurement (mass/volume) 0.3 mg/dL 0.1-1.0 Serum or plasma alkaline phosphatase measurement (enzymatic activity/volume) 67 U/L 40-136 Serum or plasma aspartate aminotransferase measurement (enzymatic activity/ volume) 51 U/L 5-34 Serum or plasma alanine aminotransferase measurement (enzymatic activity/volume ) 58 U/L 0-55 Serum or plasma protein measurement (mass/volume) 7.3 g/dL 6.4-8.2 Serum or plasma albumin measurement (mass/volume) 4.2 g/dL 3.2-4.5 Magnesium - 10/16/16 16:40 Magnesium 2.6 mg/dL 1.8-2.4 Serum or plasma troponin i.cardiac measurement (mass/volume) - 10/16/16 16:40 Serum or plasma troponin i.cardiac measurement (mass/volume) < ng/ mL <0.30 Myoglobin, serum - 10/16/16 16:40 Myoglobin, serum 100.5 ng/mL 10.0-92.0 Serum or plasma lithium measurement (moles/volume) - 10/16/16 16:40 BNP level < pg/mL <100.0 Encounters ACCT No. Visit Date/Time Discharge Status Pt. Type Provider Facility Loc./Unit Complaint [id number] 10/16/2016 16:32:00 10/16/2016 18:04:00 DIS Emergency LOGAN SNELL APRN [facility] ER DIZZINESS,NOSE BLEED [id number] 10/12/2016 23:24:00 10/13/2016 02:12:00 DIS Emergency SALTY MENDEZ MD [facility] ER BP [id number] 10/12/2016 12:42:00 10/12/2016 15:42:00 DIS Emergency NITHIN HALL [facility] ER DENTAL PAIN/SWELLING POSS INFECTION [id number] 05/28/2016 20:30:00 05/28/2016 23:11:00 DIS Emergency NITHIN HALL [facility] ER R SIDE PAIN [id number] 01/26/2016 23:11:00 01/27/2016 01:20:00 DIS Emergency KRISTIAN CONTRERAS DO [facility] ER CP,SOB,CONGESTION [id number] 12/11/2015 16:04:00 12/11/2015 17:15:00 DIS Emergency KIT JOHNSON DO [facility] ER ABD PAIN [id number] 10/07/2015 17:30:00 10/07/2015 20:45:00 DIS Emergency LOGAN SNELL APRN [facility] ER CHEST PAIN/SOA [id number] 09/30/2015 13:50:00 09/30/2015 14:24:00 DIS Emergency LOGAN SNELL RELIABILITY MANAGER [facility] ER DENTAL PAIN [id number] 01/15/2015 21:30:00 01/15/2015 23:27:00 DIS Emergency NITHIN HALL [facility] ER BACK PAIN [id number] 10/25/2014 13:37:00 10/25/2014 23:59:59 CLS Outpatient LINO GONZALES MD [facility] RAD STONES [id number] 10/04/2014 07:51:00 10/04/2014 16:10:00 DIS Outpatient LINO GONZALES MD [facility] SDC LEFT RENAL STONE [id number] 09/27/2014 05:58:00 09/27/2014 23:59:59 CLS Outpatient LINO GONZALES MD [facility] PREOP LEFT RENAL STONE [id number] 10/18/2013 19:39:00 10/18/2013 21:28:00 DIS Emergency KIT JOHNSON DO [facility] ER CHEST PAIN, R ARM PAIN [id number] 09/04/2013 19:34:00 09/04/2013 22:38:00 DIS Emergency DONN MARSH MD [facility] ER LEFT SIDE PAIN [id number] 08/06/2013 08:09:00 08/06/2013 23:59:59 CLS Outpatient LINO GONZALES MD [facility] RAD RLQ PAIN, HX OF STONES [id number] 08/05/2013 13:42:00 08/05/2013 23:59:59 CLS Outpatient LINO GONZALES MD [facility] RAD STONE [id number] 10/17/2012 11:17:00 10/17/2012 23:59:59 CLS Outpatient [id number] 03/16/2017 17:24:00 ACT Emergency RUDY BARRETO MD [facility] ER R ARM PAIN/HX OF TIA [id number] 10/26/2011 15:47:00 Document Registration [id number] 12/31/2010 19:20:00 Document Registration
== END 2017-03-16 18:51 | disposition left against medical advice (07) ==
LOC: EDUNIT# 17:23 → ER 17:24
DX: M79.601 Pain in right arm (principal); Z86.73 Personal history of transient ischemic attack (TIA), and cerebral infarction without residual deficits

== ENCOUNTER 2017-03-20 09:43 | Emergency (ER) | payer MEDICAID ==
[~2017-03-20] VITALS: Ht 180.3 cm; Wt 166.0 kg
[2017-03-20] MEDS ORDERED: ASPIRIN 81 MG CHEW (CHILDREN'S ASA) PO ONE (10:15)
[2017-03-20 10:22] LABS: BASOPHILS # (AUTO) 0.1 10^3/uL (0.0-0.1); BASOPHILS % (AUTO) 0 % (0-10); EOSINOPHILS # (AUTO) 0.2 10^3/uL (0.0-0.3); EOSINOPHILS % (AUTO) 2 % (0-10); HEMATOCRIT 45 % (40-54); HEMOGLOBIN 15.2 G/DL (13.3-17.7); LYMPHOCYTES # (AUTO) 2.1 X 10^3 (1.0-4.0); LYMPHOCYTES % (AUTO) 15 % (12-44); MEAN CORPUSCULAR HEMOGLOBIN 31 PG (25-34); MEAN CORPUSCULAR HGB CONC 34 G/DL (32-36); MEAN CORPUSCULAR VOLUME 91 FL (80-99); MEAN PLATELET VOLUME 10.7 FL (7.4-10.4); MONOCYTES % (AUTO) 7 % (0-12); NEUTROPHILS # (AUTO) 10.7 X 10^3 (1.8-7.8); NEUTROPHILS % (AUTO) 76 % (42-75); PLATELET COUNT 195 10^3/uL (130-400); RED BLOOD COUNT 4.88 10^6/uL (4.35-5.85); RED CELL DISTRIBUTION WIDTH 14.4 % (10.0-14.5)
[2017-03-20 10:37] LABS: INR 0.9 (0.8-1.4); PROTHROMBIN TIME PATIENT 12.1 SEC (12.2-14.7)
--- NOTE | 2017-03-20 10:43 | Diagnostic Imaging Report ---
INDICATION: Right-sided chest pain. EXAMINATION: Portable chest at 10:35 a.m. FINDINGS: Heart size and pulmonary vascularity are normal. Lungs are clear. There are no effusions or pneumothoraces. IMPRESSION: Negative chest. Dictated by: Dictated on workstation # [id number]
[2017-03-20 11:31] LABS: ALANINE AMINOTRANSFERASE 44 U/L (0-55); ALKALINE PHOSPHATASE 55 U/L (40-136); AMYLASE 36 U/L (25-125); BILIRUBIN,TOTAL 0.4 MG/DL (0.1-1.0); BUN/CREATININE RATIO 9; CALCIUM 9.2 MG/DL (8.5-10.1); CARBON DIOXIDE 20 MMOL/L (21-32); CHLORIDE 109 MMOL/L (98-107); CREATINE KINASE 167 U/L (30-200); CREATININE SERUM 1.29 MG/DL (0.60-1.30); GFR ESTIMATED 60; GLUCOSE 112 MG/DL (70-105); LIPASE 38 U/L (8-78); MAGNESIUM 1.9 MG/DL (1.8-2.4); POTASSIUM 3.7 MMOL/L (3.6-5.0); SODIUM 139 MMOL/L (135-145); TOTAL PROTEIN 6.5 GM/DL (6.4-8.2)
[2017-03-20 11:37] LABS: CREATINE KINASE MB 3.6 NG/ML (<6.6)
[2017-03-20] MEDS ORDERED: KETOROLAC 30 MG/ML VIAL IVP ONE (11:45)
[2017-03-20] MEDS ORDERED: IOHEXOL 350 MG/ML 150 ML (OMNIPAQUE 350) VIAL IV ONE (11:45)
[2017-03-20] MEDS ORDERED: NS 100 ML (IVPB) BAG IV ONE (11:45)
--- NOTE | 2017-03-20 12:23 | Diagnostic Imaging Report ---
PROCEDURE: CT angiography of the chest with contrast. TECHNIQUE: Multiple contiguous axial images were obtained through the chest after uneventful bolus administration of intravenous contrast. Reconstructed CTA MIP acquisitions were also performed. INDICATION: Chest pain and right arm pain. COMPARISON is made with prior chest from 10/07/2015. FINDINGS: Evaluation for pulmonary emboli is significantly limited due to suboptimal opacification of the pulmonary arterial system. No definite central emboli are detected but lobar as well as segmental and subsegmental branches are difficult to evaluate. The thoracic aorta is normal caliber. No dissection is seen. No pericardial or pleural fluid is identified. There is minimal infiltrate or atelectasis in the lingula. Otherwise, the lungs are clear. Upper abdomen does show hepatic steatosis. There is a probable nonobstructing calculus in the lower pole of the left kidney. IMPRESSION: 1. Significantly compromised study due to suboptimal opacification of the pulmonary arterial system. No central emboli are detected. 2. Hepatic steatosis. Dictated by: Dictated on workstation # [id number]
[2017-03-20 12:35] LABS: BILIRUBIN,URINE NEGATIVE (NEGATIVE); CLARITY,URINE CLEAR; COLOR,URINE YELLOW; GLUCOSE, URINE (UA) NEGATIVE (NEGATIVE); KETONES,URINE NEGATIVE (NEGATIVE); LEUKOCYTE ESTERASE ,URINE 2+ (NEGATIVE); NITRITE,URINE POSITIVE (NEGATIVE); PH,URINE 7 (5-9); PROTEIN,URINE 1+ (NEGATIVE); UROBILINOGEN,URINE NORMAL (NORMAL)
[2017-03-20 12:45] LABS: AMPHETAMINE SCREEN, URINE NEGATIVE (NEGATIVE); BARBITURATE SCREEN URINE NEGATIVE (NEGATIVE); BENZODIAZEPINES SCREEN URINE NEGATIVE (NEGATIVE); CANNABINOID SCREEN, URINE NEGATIVE (NEGATIVE); COCAINE SCREEN URINE NEGATIVE (NEGATIVE); METHADONE STAT NEGATIVE (NEGATIVE); METHAMPHETAMINE SCREEN URINE S NEGATIVE (NEGATIVE); OPIATE SCREEN URINE NEGATIVE (NEGATIVE); OXYCODONE STAT NEGATIVE (NEGATIVE); PROPOXYPHENE STAT NEGATIVE (NEGATIVE); TRICYCLIC ANTIDEPRESSANTS SCRE NEGATIVE (NEGATIVE)
[2017-03-20 13:04] LABS: BACTERIA,URINE LARGE /HPF; RBC,URINE 0-2 /HPF; WBC,URINE 25-50 /HPF
[2017-03-20] MEDS ORDERED: MELO15TA14 PO (13:10)
--- NOTE | 2017-03-20 13:10 | ED Chest Pain ---
General Chief Complaint: Chest Pain Stated Complaint: CP AND R ARM PAIN Allergies and Home Medications Allergies Coded Allergies: No Known Drug Allergies (Unverified , 12/31/10) Home Medications Albuterol Sulfate 1 Puff Puff, 2 PUFF IH Q4H PRN for WHEEZING, #1 2 puffs every 4 hours Prescribed by: LOGAN SNELL on 10/16/16 1754 Amitriptyline HCl 50 Mg Tablet, 50 MG PO HS, (Reported) Amoxicillin 500 Mg Capsule, 1,000 MG PO TID, #60 Ref 0 Prescribed by: NITHIN GOODWIN on 10/12/16 1528 Aripiprazole 15 Mg Tab, 20 TAB PO DAILY, (Reported) DAILY Atorvastatin Calcium 10 Mg Tablet, 10 MG PO HS, (Reported) Azithromycin 250 Mg Tablet, 250 MG PO UD, #6 TAKE 2 TABLETS ON DAY ONE THEN TAKE 1 TABLET DAILY FOR FOUR MORE DAYS Prescribed by: LOGAN SNELL on 10/16/16 1754 Bupropion Hcl 100 Mg Tablet, 1 TAB PO TID, #60 (Reported) Ciprofloxacin HCl 500 Mg Tablet, 500 MG PO BID for 7 Days, #14 Ref 0 Prescribed by: NITHIN GOODWIN on 05/28/16 2252 Cyclobenzaprine Hcl 10 Mg Tablet, 1 EACH PO TID PRN for SPASMS, (Reported) Dicyclomine HCl 10 Mg Capsule, 20 MG PO QID, (Reported) Famotidine 20 Mg Tablet, 1 EACH PO BID for 30 Days, Ref 0 Prescribed by: KIT JOHNSON on 10/18/13 2111 Fenofibrate,Micronized 145 Mg Tablet, 145 MG PO DAILY, (Reported) Hydrocodone Bit/Acetaminophen 1 Each Tablet, 1 EACH PO Q6H PRN for PAIN, #14 Ref 0 Prescribed by: NITHIN GOODWIN on 01/15/15 2315 Lisinopril 10 Mg Tablet, 10 MG PO DAILY, (Reported) Mesalamine 250 Mg Capsule.er, 250 MG PO BID, (Reported) Metoprolol Tartrate 25 Mg Tablet, 25 MG PO BID, (Reported) [place]-3 Acid Ethyl Esters 1 Gm Capsule, 2 G PO BID WITH MEALS, (Reported) Pantoprazole Sodium 40 Mg Tablet.dr, 40 MG PO DAILY, (Reported) Phenazopyridine HCl 200 Mg Tablet, 1 TAB PO Q8H PRN for PAIN, #30 Ref 0 Prescribed by: NITHIN GOODWIN on 05/28/16 2252 Prednisone 20 Mg Tab, 40 MG PO DAILY, #8 Prescribed by: LOGAN SNELL on 10/16/16 1754 Ropinirole Hcl 2 Mg Tablet, 2 MG PO BID, (Reported) Sucralfate 1 Gm Tab, 1 GM PO UD, #120 Ref 0 TAKE BEFORE EACH MEAL AND AT BEDTIME FOR STOMACH Prescribed by: KIT JOHNSON on 10/18/13 2111 Sulfamethoxazole/Trimethoprim 1 Each Tablet, 1 EACH PO BID for 10 Days, #20 Ref 0 Prescribed by: SALTY MENDEZ on 10/13/16 0158 Topiramate 50 Mg Tablet, 50 MG PO HS, (Reported) Past Hzzrjue-Qbixle-Zwwgli Hx Patient Social History Type Used: Cigarettes Recent Foreign Travel: No Contact w/Someone Who Travel: No Recent Hopitalizations: No Immunizations Up To Date Tetanus Booster (TDap): Unknown Date of Influenza Vaccine: Dec 01, 2013 Seasonal Allergies Seasonal Allergies: No Surgeries History of Surgeries: Yes (LAP EVELIO, BACK SURGERY, FINGER) Surgeries: Gallbladder, Orthopedic Respiratory History of Respiratory Disorde: Yes (C-PAP MACHINE) Respiratory Disorders: Sleep Apnea, COPD Cardiovascular History of Cardiac Disorders: Yes Cardiac Disorders: High Cholesterol, Hypertension Neurological History of Neurological Disord: No Reproductive System Hx Reproductive Disorders: No Sexually Transmitted Disease: No HIV/AIDS: No Genitourinary Genitourinary Disorders: Kidney Stones Gastrointestinal History of Gastrointestinal Di: Yes (TAKES MEDS) Gastrointestinal Disorders: Colitis, Gastroesophageal Reflux Musculoskeletal History of Musculoskeletal Dis: Yes Musculoskeletal Disorders: Arthritis, Chronic Back Pain Endocrine History of Endocrine Disorders: No Cancer History of Cancer: No Psychosocial History of Psychiatric Problem: Yes (BIPOLAR, TAKES MEDS) Behavioral Health Disorders: Anxiety, Bipolar, Depression Integumentary History of Skin or Integumenta: No Blood Transfusions History of Blood Disorders: No Adverse Reaction to a Blood Tr: No Family Medical History Significant Family History: No Pertinent Family Hx Physical Exam Vital Signs Capillary Refill : Progress/Results/Core Measures Results/Orders Lab Results Laboratory Tests Test 03/20/17 10:00 03/20/17 10:55 03/20/17 12:21 Range/Units White Blood Count 14.0 H 4.3-11.0 10^3/uL Red Blood Count 4.88 4.35-5.85 10^6/uL Hemoglobin 15.2 13.3-17.7 G/DL Hematocrit 45 40-54 % Mean Corpuscular Volume 91 80-99 FL Mean Corpuscular Hemoglobin 31 25-34 PG Mean Corpuscular Hemoglobin Concent 34 32-36 G/DL Red Cell Distribution Width 14.4 10.0-14.5 % Platelet Count 195 130-400 10^3/uL Mean Platelet Volume 10.7 H 7.4-10.4 FL Neutrophils (%) (Auto) 76 H 42-75 % Lymphocytes (%) (Auto) 15 12-44 % Monocytes (%) (Auto) 7 0-12 % Eosinophils (%) (Auto) 2 0-10 % Basophils (%) (Auto) 0 0-10 % Neutrophils # (Auto) 10.7 H 1.8-7.8 X 10^3 Lymphocytes # (Auto) 2.1 1.0-4.0 X 10^3 Monocytes # (Auto) 1.0 0.0-1.0 X 10^3 Eosinophils # (Auto) 0.2 0.0-0.3 10^3/uL Basophils # (Auto) 0.1 0.0-0.1 10^3/uL Prothrombin Time 12.1 L 12.2-14.7 SEC INR Comment 0.9 0.8-1.4 Activated Partial Thromboplast Time 24 24-35 SEC B-Type Natriuretic Peptide < 10.0 <100.0 PG/ML Sodium Level 139 135-145 MMOL/L Potassium Level 3.7 3.6-5.0 MMOL/L Chloride Level 109 H 98-107 MMOL/L Carbon Dioxide Level 20 L 21-32 MMOL/L Anion Gap 10 5-14 MMOL/L Blood Urea Nitrogen 11 7-18 MG/DL Creatinine 1.29 0.60-1.30 MG/DL Estimat Glomerular Filtration Rate 60 BUN/Creatinine Ratio 9 Glucose Level 112 H 70-105 MG/DL Calcium Level 9.2 8.5-10.1 MG/DL Magnesium Level 1.9 1.8-2.4 MG/DL Total Bilirubin 0.4 0.1-1.0 MG/DL Aspartate Amino Transf (AST/SGOT) 27 5-34 U/L Alanine Aminotransferase (ALT/SGPT) 44 0-55 U/L Alkaline Phosphatase 55 40-136 U/L Total Creatine Kinase 167 30-200 U/L Creatine Kinase MB 3.6 <6.6 NG/ML Troponin I < 0.30 <0.30 NG/ML Total Protein 6.5 6.4-8.2 GM/DL Albumin 4.0 3.2-4.5 GM/DL Amylase Level 36 25-125 U/L Lipase 38 8-78 U/L Serum Alcohol < 10 <10 MG/DL Urine Color YELLOW Urine Clarity CLEAR Urine pH 7 5-9 Urine Specific [place] 1.010 L 1.016-1.022 Urine Protein 1+ H NEGATIVE Urine Glucose (UA) NEGATIVE NEGATIVE Urine Ketones NEGATIVE NEGATIVE Urine Nitrite POSITIVE H NEGATIVE Urine Bilirubin NEGATIVE NEGATIVE Urine Urobilinogen NORMAL NORMAL MG/DL Urine Leukocyte Esterase 2+ H NEGATIVE Urine RBC (Auto) 1+ H NEGATIVE Urine RBC 0-2 /HPF Urine WBC 25-50 H /HPF Urine Crystals NONE /LPF Urine Bacteria LARGE H /HPF Urine Casts NONE /LPF Urine Mucus NEGATIVE /LPF Urine Culture Indicated YES Urine Opiates Screen NEGATIVE NEGATIVE Urine Oxycodone Screen NEGATIVE NEGATIVE Urine Methadone Screen NEGATIVE NEGATIVE Urine Propoxyphene Screen NEGATIVE NEGATIVE Urine Barbiturates Screen NEGATIVE NEGATIVE Ur Tricyclic Antidepressants Screen NEGATIVE NEGATIVE Urine Phencyclidine Screen NEGATIVE NEGATIVE Urine Amphetamines Screen NEGATIVE NEGATIVE Urine Methamphetamines Screen NEGATIVE NEGATIVE Urine Benzodiazepines Screen NEGATIVE NEGATIVE Urine Cocaine Screen NEGATIVE NEGATIVE Urine Cannabinoids Screen NEGATIVE NEGATIVE My Orders Orders - KRISTIAN CONTRERAS DO Amylase (03/20/17 10:15) Cbc With Automated Diff (03/20/17 10:15) Comprehensive Metabolic Panel (03/20/17 10:15) Creatine Kinase (03/20/17 10:15) Creatine Kinase Mb (03/20/17 10:15) Lipase (03/20/17 10:15) Partial Thromboplastin Time (03/20/17 10:15) Protime With Inr (03/20/17 10:15) Troponin I (03/20/17 10:15) Chest 1 View, Ap/Pa Only (03/20/17 10:15) O2 (03/20/17 10:15) Ekg Tracing (03/20/17 10:15) Aspirin Chewable Tablet (Baby Aspirin Ch (03/20/17 10:15) BNP (03/20/17 10:15) Monitor-Rhythm Ecg Trace Only (03/20/17 10:15) Magnesium (03/20/17 10:15) Alcohol (03/20/17 10:27) Drug Screen Stat (Urine) (03/20/17 10:27) Ua Culture If Indicated (03/20/17 10:27) Ct Angio Chest W (03/20/17 10:51) Iohexol Injection (Omnipaque 350 Mg/Ml 1 (03/20/17 11:45) Ns (Ivpb) (Sodium Chloride 0.9% Ivpb Bag (03/20/17 11:45) Ketorolac Injection (Toradol Injection) (03/20/17 11:45) Urine Culture (03/20/17 12:21) Medications Given in ED Current Medications Medications Dose Ordered Sig/Saba Route Start Time Stop Time Status Last Admin Dose Admin Aspirin 324 mg ONCE ONCE PO 03/20/17 10:15 03/20/17 10:16 DC 03/20/17 11:36 324 MG Iohexol 125 ml ONCE ONCE IV 03/20/17 11:45 03/20/17 11:46 DC 03/20/17 11:51 125 ML Sodium Chloride 100 ml ONCE ONCE IV 03/20/17 11:45 03/20/17 11:46 DC 03/20/17 11:51 80 ML Departure Impression Impression: Primary Impression: Right-sided chest wall pain Disposition: 01 HOME, SELF-CARE Condition: Improved Departure-Patient Inst. Referrals: ÁNGEL CASPER MD (PCP/Family) Primary Care Physician Patient Instructions: Chest Pain That Is Not Caused by the Heart (DC), Heart Healthy Diet Add. Discharge Instructions: ALTERNATE ICE AND HEAT TO SORE AREA AT 20 MINUTE INTERVALS FOLLOW UP WITH DR CASPER IN 2-3 DAYS FOR FURTHER CARE RETURN TO ER IF WORSE All discharge instructions reviewed with patient and/or family. Voiced understanding. Scripts Meloxicam (Mobic) 15 Mg Tablet 15 MG PO DAILY, #10 TAB Prov: KRISTIAN CONTRERAS DO 03/20/17 KRISTIAN CONTRERAS DO Mar 20, 2017 13:10
[2017-03-20] MEDS ORDERED: KETOROLAC 30 MG/ML VIAL ONE (13:54)
[2017-03-20 13:57] VITALS: BP 125/102
== END 2017-03-20 13:57 | disposition home or self-care (01) ==
LOC: EDUNIT# 09:43 → ER 09:45
DX: R07.89 Other chest pain (principal); F41.9 Anxiety disorder, unspecified; F31.9 Bipolar disorder, unspecified; K21.9 Gastro-esophageal reflux disease without esophagitis; E78.00 Pure hypercholesterolemia, unspecified; I10 Essential (primary) hypertension; J44.9 Chronic obstructive pulmonary disease, unspecified; G47.30 Sleep apnea, unspecified; Z87.440 Personal history of urinary (tract) infections
CPT/HCPCS: 36415; 71045; 71275; 80053; 80306; 80320; 81000; 82150; 82550; 82553; 83690; 83735; 83880; 84484; 85025; 85610; 85730; 87077; 87088; 87186; 93005; 93041

== ENCOUNTER 2017-04-27 18:02 | Emergency (ER) | payer MEDICAID, OTHER ==
[~2017-04-27] VITALS: Ht 177.8 cm; Wt 163.3 kg
[~2017-04-27 18:02] MED LIST changes: +MELO15TA14 PO
[2017-04-27] MEDS ORDERED: ASPIRIN 81 MG CHEW (CHILDREN'S ASA) PO ONE (18:15)
--- NOTE | 2017-04-27 18:24 | ED Chest Pain ---
General Chief Complaint: Chest Pain Stated Complaint: INTERMITTENT CP Source: patient, old records History of Present Illness Date Seen by Provider: Apr 27, 2017 Time Seen by Provider: 18:11 Initial Comments PT ARRIVES VIA POV FROM HOME STATES HE WAS STANDING IN KITCHEN AND "FELT A ZAP" IN RIGHT CHEST-BELOW BREAST-- LASTED 1-2 SECONDS AND IS GONE--BEGAN IMMEDIATELY PRIOR TO ARRIVAL AND CAME STRAIGHT HERE, APPROXIMATELY 1730 STATES HE FEELS SLIGHT BURNING IN AREA NOW NO RADIATION OF PAIN NOTHING WORSENS OR IMPROVES PAIN NO SHORTNESS OF BREATH OR PAIN WITH BREATHING NO SWEATS NO SWELLING IN FEET /ANKLES OR PAIN IN CALVES NO PALPITATIONS NO COUGH, FEVER OR URI SYMPTOMS SEEN HERE 03/16/17 AND 03/20/17 FOR SAME--WORK UP'S NEGATIVE, INCLUDING CT CHEST ANGIOGRAM ON 03/20/[address] 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 HAD NEGATIVE CARDIAC CATH 01/10/[address] CABRAL PT HAS TAKEN ALL ROUTINE MEDICATIONS THIS AM. INCLUDING 81 MG ASPIRIN PCP: FT. CORNELIUS VALENTIN Allergies and Home Medications Allergies Coded Allergies: No Known Drug Allergies (Unverified , 12/31/10) Home Medications Albuterol Sulfate 1 Puff Puff, 2 PUFF IH Q4H PRN for WHEEZING 2 puffs every 4 hours Prescribed by: LOGAN SNELL on 10/16/161753 Amitriptyline HCl 50 Mg Tablet, 50 MG PO HS, (Reported) Amoxicillin 500 Mg Capsule, 1,000 MG PO TID Prescribed by: NITHIN GOODWIN on 10/12/16 1528 Aripiprazole 15 Mg Tab, 20 TAB PO DAILY, (Reported) DAILY Atorvastatin Calcium 10 Mg Tablet, 10 MG PO HS, (Reported) Azithromycin 250 Mg Tablet, 250 MG PO UD TAKE 2 TABLETS ON DAY ONE THEN TAKE 1 TABLET DAILY FOR FOUR MORE DAYS Prescribed by: LOGAN SNELL on 10/16/16 175 Bupropion Hcl 100 Mg Tablet, 1 TAB PO TID, (Reported) Ciprofloxacin HCl 500 Mg Tablet, 500 MG PO BID Prescribed by: NITHIN GOODWIN on 05/28/16 2252 Cyclobenzaprine Hcl 10 Mg Tablet, 1 EACH PO TID PRN for SPASMS, (Reported) Dicyclomine HCl 10 Mg Capsule, 20 MG PO QID, (Reported) Famotidine 20 Mg Tablet, 1 EACH PO BID Prescribed by: KIT JOHNSON on 10/18/132110 Fenofibrate,Micronized 145 Mg Tablet, 145 MG PO DAILY, (Reported) Hydrocodone Bit/Acetaminophen 1 Each Tablet, 1 EACH PO Q6H PRN for PAIN Prescribed by: NITHIN GOODWIN on 01/15/15 2315 Lisinopril 10 Mg Tablet, 10 MG PO DAILY, (Reported) Meloxicam 15 Mg Tablet, 15 MG PO DAILY Prescribed by: KRISTIAN CONTRERAS on 03/20/17 1310 Meloxicam 15 Mg Tablet, 15 MG PO DAILY Prescribed by: KRISTIAN CONTRERAS on 04/27/171954 Mesalamine 250 Mg Capsule.er, 250 MG PO BID, (Reported) Metoprolol Tartrate 25 Mg Tablet, 25 MG PO BID, (Reported) [place]-3 Acid Ethyl Esters 1 Gm Capsule, 2 G PO BID WITH MEALS, (Reported) Pantoprazole Sodium 40 Mg Tablet.dr, 40 MG PO DAILY, (Reported) Phenazopyridine HCl 200 Mg Tablet, 1 TAB PO Q8H PRN for PAIN Prescribed by: NITHIN GOODWIN on 05/28/162251 Prednisone 20 Mg Tab, 40 MG PO DAILY Prescribed by: LOGAN SNELL on 10/16/16 175 Ropinirole Hcl 2 Mg Tablet, 2 MG PO BID, (Reported) Sucralfate 1 Gm Tab, 1 GM PO UD TAKE BEFORE EACH MEAL AND AT BEDTIME FOR STOMACH Prescribed by: KIT JOHNSON on 10/18/132110 Sulfamethoxazole/Trimethoprim 1 Each Tablet, 1 EACH PO BID Prescribed by: SALTY MENDEZ on 10/13/16 0158 Topiramate 50 Mg Tablet, 50 MG PO HS, (Reported) Review of Systems Constitutional: no symptoms reported EENTM: No Symptoms Reported Respiratory: No Symptoms Reported Cardiovascular: See HPI, Chest Pain Gastrointestinal: No Symptoms Reported Genitourinary: See HPI Musculoskeletal: no symptoms reported Skin: no symptoms reported Psychiatric/Neurological: No Symptoms Reported Endocrine: No Symptoms Reported Hematologic/Lymphatic: No Symptoms Reported Past Soojuau-Fnknqh-Ihljux Hx Patient Social History Alcohol Use: Regular Use (MODERATE USE) Recreational Drug Use: Yes (SPEED, COCAINE--DENIES IV USE, YET HAS A TATTOO OF A SYRINGE IN RIGHT AC) Drug of Choice: SPEED, COCAINE Smoking Status: Current Everyday Smoker (1/2-1 PPD) Type Used: Cigarettes Recent Foreign Travel: No Contact w/Someone Who Travel: No Recent Hopitalizations: Yes Immunizations Up To Date Tetanus Booster (TDap): Unknown Date of Influenza Vaccine: Dec 01, 2013 Seasonal Allergies Seasonal Allergies: No Surgeries History of Surgeries: Yes (LAP EVELIO, BACK SURGERY, FINGER; LITHOTRIPSY ) Surgeries: Gallbladder, Orthopedic, Renal Respiratory History of Respiratory Disorde: Yes (C-PAP MACHINE) Respiratory Disorders: Sleep Apnea, COPD Cardiovascular History of Cardiac Disorders: Yes Cardiac Disorders: High Cholesterol, Hypertension Neurological History of Neurological Disord: No Reproductive System Hx Reproductive Disorders: No Sexually Transmitted Disease: No HIV/AIDS: No Genitourinary History of Genitourinary Disor: Yes Genitourinary Disorders: Kidney Stones Gastrointestinal History of Gastrointestinal Di: Yes (S/P EVELIO; FATTY LIVER ON CT. ) Gastrointestinal Disorders: Colitis, Gastroesophageal Reflux, Gall Bladder Disease Musculoskeletal History of Musculoskeletal Dis: Yes Musculoskeletal Disorders: Arthritis, Chronic Back Pain Endocrine History of Endocrine Disorders: Yes (MORBID OBESITY) HEENT History of HEENT Disorders: Yes (POOR DENTITION) Cancer History of Cancer: No Psychosocial History of Psychiatric Problem: Yes (BIPOLAR, TAKES MEDS) Behavioral Health Disorders: Anxiety, Bipolar, Depression Integumentary History of Skin or Integumenta: No Blood Transfusions History of Blood Disorders: No Adverse Reaction to a Blood Tr: No Family Medical History Significant Family History: No Pertinent Family Hx Physical Exam Vital Signs Vital Signs - First Documented 04/27/17 04/27/17 18:15 20:03 Temp 97.5 Pulse 80 Resp 13 B/P (MAP) 150/96 (114) Pulse Ox 98 O2 Delivery Room Air Capillary Refill : General Appearance: No Apparent Distress, WD/WN, Obese (MORBIDLY), Other ( MALODOROUS; SPEECH MUMBLED) HEENT: PERRL/EOMI, Other (POOR DENTITION, MULTIPLE MISSING THEETH) Neck: Full Range of Motion, Normal Inspection, Non Tender, Supple Respiratory: Normal Breath Sounds, No Accessory Muscle Use, No Respiratory Distress, Other (TENDERNESS BELOW RIGHT BREAST--PALPATION REPRODUCES PAIN ) Cardiovascular: Regular Rate, Rhythm, No Edema, No JVD, No Murmur, Normal Peripheral Pulses Gastrointestinal: Normal Bowel Sounds, No Organomegaly, No Pulsatile Mass, Non Tender, Soft Extremity: Normal Capillary Refill, Normal Inspection, Normal Range of Motion, Non Tender, No Calf Tenderness, No Pedal Edema Neurologic/Psychiatric: Alert, Oriented x3, No Motor/Sensory Deficits, Normal Mood/Affect, insulation 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 ) Progress/Results/Core Measures Results/Orders Lab Results Laboratory Tests Test 04/27/17 18:35 04/27/17 19:09 Range/Units White Blood Count 7.8 4.3-11.0 10^3/uL Red Blood Count 4.85 4.35-5.85 10^6/uL Hemoglobin 15.1 13.3-17.7 G/DL Hematocrit 45 40-54 % Mean Corpuscular Volume 92 80-99 FL Mean Corpuscular Hemoglobin 31 25-34 PG Mean Corpuscular Hemoglobin Concent 34 32-36 G/DL Red Cell Distribution Width 14.3 10.0-14.5 % Platelet Count 182 130-400 10^3/uL Mean Platelet Volume 10.5 H 7.4-10.4 FL Neutrophils (%) (Auto) 65 42-75 % Lymphocytes (%) (Auto) 22 12-44 % Monocytes (%) (Auto) 11 0-12 % Eosinophils (%) (Auto) 3 0-10 % Basophils (%) (Auto) 1 0-10 % Neutrophils # (Auto) 5.1 1.8-7.8 X 10^3 Lymphocytes # (Auto) 1.7 1.0-4.0 X 10^3 Monocytes # (Auto) 0.8 0.0-1.0 X 10^3 Eosinophils # (Auto) 0.2 0.0-0.3 10^3/uL Basophils # (Auto) 0.0 0.0-0.1 10^3/uL Prothrombin Time 12.8 12.2-14.7 SEC INR Comment 1.0 0.8-1.4 Activated Partial Thromboplast Time 28 24-35 SEC Sodium Level 139 135-145 MMOL/L Potassium Level 3.8 3.6-5.0 MMOL/L Chloride Level 109 H 98-107 MMOL/L Carbon Dioxide Level 19 L 21-32 MMOL/L Anion Gap 11 5-14 MMOL/L Blood Urea Nitrogen 12 7-18 MG/DL Creatinine 1.48 H 0.60-1.30 MG/DL Estimat Glomerular Filtration Rate 51 BUN/Creatinine Ratio 8 Glucose Level 126 H 70-105 MG/DL Calcium Level 9.4 8.5-10.1 MG/DL Total Bilirubin 0.4 0.1-1.0 MG/DL Aspartate Amino Transf (AST/SGOT) 31 5-34 U/L Alanine Aminotransferase (ALT/SGPT) 38 0-55 U/L Alkaline Phosphatase 50 40-136 U/L Total Creatine Kinase 121 30-200 U/L Creatine Kinase MB 2.9 <6.6 NG/ML Troponin I < 0.30 <0.30 NG/ML B-Type Natriuretic Peptide < 10.0 <100.0 PG/ML Total Protein 6.3 L 6.4-8.2 GM/DL Albumin 4.0 3.2-4.5 GM/DL Amylase Level 33 25-125 U/L Lipase 36 8-78 U/L Urine Color YELLOW Urine Clarity VERY CLOUDY H Urine pH 7 5-9 Urine Specific [place] 1.015 L 1.016-1.022 Urine Protein 1+ H NEGATIVE Urine Glucose (UA) NEGATIVE NEGATIVE Urine Ketones NEGATIVE NEGATIVE Urine Nitrite NEGATIVE NEGATIVE Urine Bilirubin NEGATIVE NEGATIVE Urine Urobilinogen NORMAL NORMAL MG/DL Urine Leukocyte Esterase 1+ H NEGATIVE Urine RBC (Auto) 1+ H NEGATIVE Urine RBC 0-2 /HPF Urine WBC 2-5 /HPF Urine Squamous Epithelial Cells >50 H /HPF Urine Renal Epithelial Cells NONE /HPF Urine Crystals PRESENT H /LPF Urine Calcium Oxalate Crystals FEW H /LPF Urine Amorphous Sediment LARGE TARYN URATES H /LPF Urine Bacteria NEGATIVE /HPF Urine Casts PRESENT /LPF Urine Hyaline Casts 2-5 H /LPF Urine Mucus NEGATIVE /LPF Urine Culture Indicated NO Urine Opiates Screen NEGATIVE NEGATIVE Urine Oxycodone Screen NEGATIVE NEGATIVE Urine Methadone Screen NEGATIVE NEGATIVE Urine Propoxyphene Screen NEGATIVE NEGATIVE Urine Barbiturates Screen NEGATIVE NEGATIVE Ur Tricyclic Antidepressants Screen POSITIVE H NEGATIVE Urine Phencyclidine Screen NEGATIVE NEGATIVE Urine Amphetamines Screen NEGATIVE NEGATIVE Urine Methamphetamines Screen NEGATIVE NEGATIVE Urine Benzodiazepines Screen NEGATIVE NEGATIVE Urine Cocaine Screen NEGATIVE NEGATIVE Urine Cannabinoids Screen NEGATIVE NEGATIVE My Orders Orders - DIANE,KRISTIAN Jane DO Amylase (04/27/17 18:11) Cbc With Automated Diff (04/27/17 18:11) Comprehensive Metabolic Panel (04/27/17 18:11) Creatine Kinase (04/27/17 18:11) Creatine Kinase Mb (04/27/17 18:11) Lipase (04/27/17 18:11) Partial Thromboplastin Time (04/27/17 18:11) Protime With Inr (04/27/17 18:11) Troponin I (04/27/17 18:11) O2 (04/27/17 18:11) Ekg Tracing (04/27/17 18:11) Aspirin Chewable Tablet (Baby Aspirin Ch (04/27/17 18:15) BNP (04/27/17 18:11) Monitor-Rhythm Ecg Trace Only (04/27/17 18:11) Ketorolac Injection (Toradol Injection) (04/27/17 18:30) Chest Pa/Lat (2 View) (04/27/17 18:22) Drug Screen Stat (Urine) (04/27/17 18:23) Ua Culture If Indicated (04/27/17 18:23) Medications Given in ED Current Medications Medications Dose Ordered Sig/Saba Route Start Time Stop Time Status Last Admin Dose Admin Aspirin 324 mg ONCE ONCE PO 04/27/17 18:15 04/27/17 18:17 DC 04/27/17 18:35 324 MG Ketorolac Tromethamine 30 mg ONCE ONCE IVP 04/27/17 18:30 04/27/17 18:31 DC 04/27/17 18:35 30 MG Vital Signs/I&O Vital Sign - Last 12Hours 04/27/17 04/27/17 04/27/17 04/27/17 18:15 18:35 18:35 20:03 Temp 97.5 97.5 97.5 97.5 Pulse 80 95 Resp 13 B/P (MAP) 150/96 (114) 121/76 (114) Pulse Ox 98 96 O2 Delivery Room Air Room Air Progress Note : Progress Note PAIN EASED AT DISMISSAL ECG Initial ECG Impression Date: Apr 27, 2017 Initial ECG Impression Time: 18:16 Initial ECG Rate: 94 Initial ECG Rhythm: Normal Sinus Initial ECG Impression: 1st Degree AV Block Initial ECG Comparisson: Unchanged Diagnostic Imaging Comments CXR--NO ACUTE PROCESS, PER RADIOLOGIST REPORT @ 1945 Reviewed: Reviewed by Me Departure Impression Impression: Primary Impression: RIGHT ANTERIOR CHEST WALL PAIN Disposition: 01 HOME, SELF-CARE Condition: Improved Departure-Patient Inst. Referrals: ÁNGEL CASPER MD (PCP/Family) Primary Care Physician Patient Instructions: Chest Pain That Is Not Caused by the Heart (DC), Costochondritis (DC), Heart Healthy Diet Add. Discharge Instructions: ALTERNATE ICE AND HEAT TO AREA AT 20 MINUTE INTERVALS FOLLOW UP WITH YOUR DR THIS WEEK FOR FURTHER CARE All discharge instructions reviewed with patient and/or family. Voiced understanding. Scripts Meloxicam (Mobic) 15 Mg Tablet 15 MG PO DAILY, #10 TAB Prov: KRISTIAN CONRTERAS DO 04/27/17 Images Torso/Trunk 1 - Tenderness KRISTIAN CONTRERAS DO Apr 27, 2017 18:24
[2017-04-27] MEDS ORDERED: KETOROLAC 30 MG/ML VIAL IVP ONE (18:30)
[2017-04-27 18:45] LABS: BASOPHILS % (AUTO) 1 % (0-10); EOSINOPHILS # (AUTO) 0.2 10^3/uL (0.0-0.3); EOSINOPHILS % (AUTO) 3 % (0-10); HEMATOCRIT 45 % (40-54); HEMOGLOBIN 15.1 G/DL (13.3-17.7); LYMPHOCYTES # (AUTO) 1.7 X 10^3 (1.0-4.0); LYMPHOCYTES % (AUTO) 22 % (12-44); MEAN CORPUSCULAR HEMOGLOBIN 31 PG (25-34); MEAN CORPUSCULAR HGB CONC 34 G/DL (32-36); MEAN CORPUSCULAR VOLUME 92 FL (80-99); MEAN PLATELET VOLUME 10.5 FL (7.4-10.4); MONOCYTES # (AUTO) 0.8 X 10^3 (0.0-1.0); MONOCYTES % (AUTO) 11 % (0-12); NEUTROPHILS # (AUTO) 5.1 X 10^3 (1.8-7.8); NEUTROPHILS % (AUTO) 65 % (42-75); PLATELET COUNT 182 10^3/uL (130-400); RED BLOOD COUNT 4.85 10^6/uL (4.35-5.85); RED CELL DISTRIBUTION WIDTH 14.3 % (10.0-14.5); WHITE BLOOD COUNT 7.8 10^3/uL (4.3-11.0)
[2017-04-27 18:56] LABS: PROTHROMBIN TIME PATIENT 12.8 SEC (12.2-14.7)
[2017-04-27 19:04] LABS: ALANINE AMINOTRANSFERASE 38 U/L (0-55); ALKALINE PHOSPHATASE 50 U/L (40-136); AMYLASE 33 U/L (25-125); BILIRUBIN,TOTAL 0.4 MG/DL (0.1-1.0); BUN/CREATININE RATIO 8; CALCIUM 9.4 MG/DL (8.5-10.1); CARBON DIOXIDE 19 MMOL/L (21-32); CHLORIDE 109 MMOL/L (98-107); CREATINE KINASE 121 U/L (30-200); CREATININE SERUM 1.48 MG/DL (0.60-1.30); GFR ESTIMATED 51; GLUCOSE 126 MG/DL (70-105); LIPASE 36 U/L (8-78); POTASSIUM 3.8 MMOL/L (3.6-5.0); SODIUM 139 MMOL/L (135-145); TOTAL PROTEIN 6.3 GM/DL (6.4-8.2)
[2017-04-27 19:10] LABS: CREATINE KINASE MB 2.9 NG/ML (<6.6)
[2017-04-27 19:16] LABS: BILIRUBIN,URINE NEGATIVE (NEGATIVE); CLARITY,URINE VERY CLOUDY; COLOR,URINE YELLOW; GLUCOSE, URINE (UA) NEGATIVE (NEGATIVE); KETONES,URINE NEGATIVE (NEGATIVE); LEUKOCYTE ESTERASE ,URINE 1+ (NEGATIVE); NITRITE,URINE NEGATIVE (NEGATIVE); PH,URINE 7 (5-9); PROTEIN,URINE 1+ (NEGATIVE); UROBILINOGEN,URINE NORMAL (NORMAL)
--- NOTE | 2017-04-27 19:42 | Diagnostic Imaging Report ---
EXAMINATION: CHEST (PA AND LATERAL) CLINICAL INDICATION: 46-year-old male, chest pain. COMPARISON: 03/20/2017. FINDINGS: Heart size and mediastinal contours are unchanged. There is no identified pneumothorax. There is no pleural effusion. There is no identified focal airspace consolidation. IMPRESSION: No identified acute cardiopulmonary abnormality. Dictated by: Dictated on workstation # [id number]
[2017-04-27 19:46] LABS: AMPHETAMINE SCREEN, URINE NEGATIVE (NEGATIVE); BARBITURATE SCREEN URINE NEGATIVE (NEGATIVE); BENZODIAZEPINES SCREEN URINE NEGATIVE (NEGATIVE); CANNABINOID SCREEN, URINE NEGATIVE (NEGATIVE); COCAINE SCREEN URINE NEGATIVE (NEGATIVE); METHADONE STAT NEGATIVE (NEGATIVE); METHAMPHETAMINE SCREEN URINE S NEGATIVE (NEGATIVE); OPIATE SCREEN URINE NEGATIVE (NEGATIVE); OXYCODONE STAT NEGATIVE (NEGATIVE); PROPOXYPHENE STAT NEGATIVE (NEGATIVE); TRICYCLIC ANTIDEPRESSANTS SCRE POSITIVE (NEGATIVE)
[2017-04-27 19:49] LABS: BACTERIA,URINE NEGATIVE /HPF; CALCIUM OXALATE CRYSTALS,UR FEW /LPF; RBC,URINE 0-2 /HPF; SQUAMOUS EPITHELIAL CELL,UR >50 /HPF
[2017-04-27 19:50] LABS: AMORPHOUS SEDIMENT,UR LARGE AMOR URATES /LPF
[2017-04-27] MEDS ORDERED: MELO15TA14 PO (19:55)
[2017-04-27 20:03] VITALS: BP 121/76
== END 2017-04-27 20:03 | disposition home or self-care (01) ==
LOC: EDUNIT# 18:02 → ER 18:03
DX: R07.89 Other chest pain (principal); G47.30 Sleep apnea, unspecified; J44.9 Chronic obstructive pulmonary disease, unspecified; E78.00 Pure hypercholesterolemia, unspecified; I10 Essential (primary) hypertension; K21.9 Gastro-esophageal reflux disease without esophagitis; E66.01 Morbid (severe) obesity due to excess calories; F41.9 Anxiety disorder, unspecified; F31.9 Bipolar disorder, unspecified; F14.10 Cocaine abuse, uncomplicated; F17.210 Nicotine dependence, cigarettes, uncomplicated; Z87.442 Personal history of urinary calculi; Z79.52 Long term (current) use of systemic steroids; Z87.448 Personal history of other diseases of urinary system; Z68.43 Body mass index [BMI] 50.0-59.9, adult
CPT/HCPCS: 36415; 71046; 80053; 80306; 81000; 82150; 82550; 82553; 83690; 83880; 84484; 85025; 85610; 85730; 93005; 93041; 96374

== ENCOUNTER → 2017-04-28 | Outpatient (CLI) | payer OTHER, MEDICAID | LOC: RT 12:56 | PROVIDERS: ATTEND Neuromusculoskeletal Medicine, Sports Medicine | DX: Z02.71 Encounter for disability determination (principal) | CPT/HCPCS: 94060 ==

== ENCOUNTER 2017-07-03 18:14 | Observation (INO) | payer MEDICAID ==
[~2017-07-03] VITALS: Ht 177.8 cm; Wt 164.2 kg
--- OUTSIDE RECORDS SUMMARY | 2017-07-03 18:20 | XMS REPORT | Clinical Summary ---
Author Author [facility] Organization [facility] Address Unknown Phone Unavailable Care Team Providers Care Television Repair Teacher Name Role Phone Carey Boland RN Unavailable Unavailable Self, Referral PCP Unavailable Renny Eisenberg MD Unavailable Source Comments Some departments are not documenting in the electronic medical record. If you do not see the information that you expected, contact Release of Information in the Health Information Management department at [phone] for further assistance in locating additional records.[facility] Allergies No Known Allergies Current Medications [...] PHYSICAL (COMPREHENSIVE) 1976 EXAM PERTUSSIS VACCINE 1980 HIV SCREENING 1984 TETANUS VACCINE 1986 INFLUENZA VACCINE 12/01/2017 Results Not on filefrom Last 3 Months
--- OUTSIDE RECORDS SUMMARY | 2017-07-03 18:21 | XMS REPORT ---
Author Author [facility] Address [address] [place] [address] Care Team Providers Care Chain Link Fence Installer Name Role Phone LUCIO SERVIN Unavailable PROBLEMS Type Condition ICD9-CM Code UAT69-JT Code Onset Dates Condition Status SNOMED Code Problem Unspecified site of sprain and strain 848.9 Active 265395712 Problem Pleurisy without mention of effusion or current tuberculosis 511.0 Active 960584403 Problem Lumbago 724.2 Active 736326788 Problem Bipolar I disorder, single manic episode, unspecified 296.00 Active 9161044 Problem Restless legs syndrome [RLS] 333.94 Active 12590348 Problem Other specified headache syndromes 339.89 Active 72421413 Problem Essential hypertension, benign 401.1 Active 6326991 Problem Other and unspecified hyperlipidemia 272.4 Active 33669338 Problem Obstructive sleep apnea (adult) (pediatric) 327.23 Active 32327918 ALLERGIES No Known Allergies ENCOUNTERS Encounter Location Date Diagnosis [facility] [id number] [place] [phone] May, Left lower quadrant pain R10.32 and BMI 50.0-59.9, adult Z68.43 [facility] [id number] [place] [phone] Jan, BMI 50.0-59.9, adult Z68.43 ; BMI 60.0-69.9, adult Z68.44 and Gum abscess K05.219 [facility] [id number] [place] [phone] Nov, [facility] [id number] [place] [id number] Oct, Dental examination Z01.20 [facility] [address] [id number] Oct, Dental examination Z01.20 [facility] [address] [id number] [id number] Jan, Dental examination Z01.20 [facility] [address] [id number], [place] [address] Jun, 2014 [facility] [address] [facility] [id number] [address] Jun, [facility] [address] [facility] [id number] [address] Oct, [facility] [address] [facility] [id number], [place] [address] Oct, [facility] [address] [facility] [id number], [place] [address] Oct, [facility] [address] [address] Oct, [facility] [address] [id number], [place] [address] Oct, [facility] [address], [place] [address] Oct, [facility] [address] [address] Oct, [facility] [address], [place] [address] Aug, [facility] [address] [facility] [id number], [place] [address] Aug, [facility] [id number] [id number] Aug, [facility] [address] [facility] [id number] [address] Aug, IMMUNIZATIONS No Known Immunizations SOCIAL HISTORY Never Assessed REASON FOR VISIT stiches in mouth came out- tooth pulled 3 days ago JStrasserRN PLAN OF CARE VITAL SIGNS Height 71 in 2016-11-24 Weight 364.2 lbs 2016-11-24 Temperature 98.0 degrees Fahrenheit 2016-11-24 Heart Rate 76 bpm 2016-11-24 Respiratory Rate 22 2016-11-24 BMI 50.79 kg/m2 2016-11-24 Blood pressure systolic 150 mmHg 2016-11-24 Blood pressure diastolic 70 mmHg 2016-11-24 MEDICATIONS Medication Instructions Dosage Frequency Start Date End Date Duration Status Gabapentin 300 MG Orally Three times a day 1 capsule 8h Active Ropinirole HCl 4 MG Orally Once a day 1 tablet 1 to 3 hours before bedtime 24h Active Topamax 100 MG Orally Twice a day 1 tablet 12h Active Lipitor 10 mg take 1 tablet (10 mg) by oral route once daily Aug, Active Tricor 145 mg take 1 tablet (145 mg) by oral route once daily Aug, Active Carafate 1 GM Orally Twice a day 1 tablet on an empty stomach 12h Active Pepcid 20 MG Orally Once a day 1 tablet at bedtime 24h Active Bentyl 10 MG Orally Four times a day 2 capsules 6h Active Abilify 20 MG Orally Once a day 1 tablet 24h Active Hydrocodone-Acetaminophen 5-500 mg take 1 tablet by oral route every 6 hours as needed for painPRN Aug, Active Phentermine HCl 37.5 MG Orally Once a day 1 capsule 24h Active Amitriptyline HCl 50 MG Orally Once a day 1 tablet 24h Active Lisinopril 10 mg take 1 tablet (10 mg) by oral route once daily Aug Active Pantoprazole Sodium 40 MG Orally Once a day 1 tablet 24h Active Metoprolol Tartrate 50 mg 0.5 Tablet every 12 hours Aug, Active Diclofenac Sodium 75 MG Orally Twice a day 1 tablet with food or milk 12h Active Wellbutrin SR 200 MG Orally 1 pill afternoon 2 tablet in the morning Active [place] 3 1000 MG Orally Once a day 1 capsule 24h Active Metformin HCl 500 MG Orally Twice a day 1 tablet with meals 12h Active Lialda 1.2 GM Active RESULTS No Results PROCEDURES No Known procedures INSTRUCTIONS MEDICATIONS ADMINISTERED No Known Medications MEDICAL (GENERAL) HISTORY Type Description Date Medical History High BP Medical History Diabetes II Medical History Back trouble Medical History Arthritis Surgical History back surgery 2004 Surgical History galbladder 2010 Surgical History finger 1995
--- OUTSIDE RECORDS SUMMARY | 2017-07-03 18:22 | XMS REPORT ---
Author Author CHARUVALENTIN BRONSON Conner [facility] Address Unknown Care Team Providers Care Wheat Shipper Name Role Phone VALENTIN MCFARLAND Unavailable PROBLEMS Type Condition ICD9-CM Code TVL05-LT Code Onset Dates Condition Status SNOMED Code Problem Unspecified site of sprain and strain 848.9 Active 526164927 Problem Pleurisy without mention of effusion or current tuberculosis 511.0 Active 763825452 Problem Lumbago 724.2 Active 217878107 Problem Bipolar I disorder, single manic episode, unspecified 296.00 Active 8542977 Problem Restless legs syndrome [RLS] 333.94 Active 89929946 Problem Other specified headache syndromes 339.89 Active 60486720 Problem Essential hypertension, benign 401.1 Active 7347843 Problem Other and unspecified hyperlipidemia 272.4 Active 50012377 Problem Obstructive sleep apnea (adult) (pediatric) 327.23 Active 57095348 ALLERGIES No Known Allergies ENCOUNTERS Encounter Location Date Diagnosis [facility] [id number] [place] [phone] May, Left lower quadrant pain R10.32 and BMI 50.0-59.9, adult Z68.43 [facility] [id number] [place] [address] Jan, BMI 50.0-59.9, adult Z68.43 ; BMI 60.0-69.9, adult Z68.44 and Gum abscess K05.219 [facility] [id number] [place] [address] Nov, [facility] [id number] [place] [id number] Oct, Dental examination Z01.20 [facility] [id number] [place] [id number] Oct, Dental examination Z01.20 [facility] [address] [id number] [id number] Jan, Dental examination Z01.20 [facility] [id number] [address] Jun, 2014 [facility] [address] [address] Jun, [facility] [id number] [address] Oct, [facility] [address] [facility] [id number] [place] [address] Oct, [facility] [id number] [address] Oct, [facility] [id number] [place] [address] Oct, [facility] [address] [address] Oct, [facility] [address] [address] Oct, [facility] [address] [address] Oct, [facility] [address] [address] Aug, [facility] [address] [address] Aug, [facility] [address] [address] Aug, [facility] [address] [address] Aug, IMMUNIZATIONS No Known Immunizations SOCIAL HISTORY Never Assessed REASON FOR VISIT LIZBETH PLAN OF CARE Activity Details Follow Up N/A Reason: VITAL SIGNS Heart Rate 88 bpm 2016-10-24 Blood pressure systolic 154 mmHg 2016-10-24 Blood pressure diastolic 94 mmHg 2016-10-24 MEDICATIONS Medication Instructions Dosage Frequency Start Date End Date Duration Status Topiragen 100 mg 1 Tablet 2 times per day Aug, Active Ventolin HFA 90 mcg/actuation Aug, Active Metoprolol Tartrate 50 mg 0.5 Tablet every 12 hours Aug, Active Lovaza 1 gram 1 Capsule 2 times per day Aug, Active Hydrocodone-Acetaminophen Active venlafaxine 75 mg take 1 capsule (75 mg) by oral route once daily Aug, Active Flexeril Active Requip 2 mg 1 Tablet 1 time per day Aug, Active cyclobenzaprine 10 mg take 1 tablet (10 mg) by oral route 3 times per day Aug, Active Hydrocodone-Acetaminophen 5-500 mg take 1 tablet by oral route every 6 hours as needed for painPRN Aug, Active Seroquel 300 mg take 2 tablets (600 mg) by oral route once daily Aug Active Tricor 145 mg take 1 tablet (145 mg) by oral route once daily Aug, Active PredniSONE 20 mg 3 tablet by Oral route 1 time per day for 5 day(s) Aug, Active Epitol 200 mg take 1 tablet (200 mg) by oral route every 8 hours Aug Active Advair Diskus 250-50 mcg/dose inhale 1 puff by inhalation route 2 times per day in the morning and evening approximately 12 hours apart Aug, Active Lisinopril 10 mg take 1 tablet (10 mg) by oral route once daily Aug Active Loratadine 10 mg take 1 tablet (10 mg) by oral route once daily Aug Active Lipitor 10 mg take 1 tablet (10 mg) by oral route once daily Aug, Active RESULTS No Results PROCEDURES Procedure Date Ordered Result Body Site LTD ORAL EVALUATION - PROBLEM FOCUS Oct 24, 2016 INTRAORL-PERIAPICAL 1 FILM [id number] Oct 24, 2016 INSTRUCTIONS MEDICATIONS ADMINISTERED No Known Medications MEDICAL (GENERAL) HISTORY Type Description Date Medical History High BP Medical History Diabetes II Medical History Back trouble Medical History Arthritis Surgical History back surgery 2004 Surgical History galbladder 2010 Surgical History finger 1995
--- OUTSIDE RECORDS SUMMARY | 2017-07-03 18:24 | XMS REPORT | Continuity of Care Document ---
Author Author [facility] Organization [facility] Address Unknown Phone Unavailable Allergies Active Description Code Type Severity Reaction Onset Reported/Identified Relationship to Patient Clinical Status Yes NO KNOWN DRUG ALLERGIES UNKNOWN NO KNOWN DRUG ALLERG Yes No Known Drug Allergies [id number] Drug Allergy Unknown N/A 12/31/2010 Medications Medication Packaging Start Date Stop Date Route Dosage Sig GI COCKTAIL SINGLE DOSE LIQ (GRASSHOPPER) ML 03/13/2017 03/13/2017 [id number] Problems Date Dx Coded Attending Type Code [...] CALCULUS OF KIDNEY 11/04/2014 JANET LENNON, LINO Hays Ot 592.9 01/15/2015 NITHIN HALL Ot F17.210 NICOTINE DEPENDENCE, CIGARETTES, UNCOMPL 01/15/2015 NITHIN HALL Ot M12.9 ARTHROPATHY, UNSPECIFIED 01/15/2015 NITHIN HALL Ot M51.16 INTERVERTEBRAL DISC DISORDERS W RADICULO 09/30/2015 LOGAN KANG APRN Ot F17.210 NICOTINE DEPENDENCE, CIGARETTES, UNCOMPL 09/30/2015 LOGAN KANG APRN Ot K02.9 DENTAL CARIES, UNSPECIFIED 09/30/2015 LOGAN KANG APRN Ot K08.8 OTHER SPECIFIED DISORDERS OF TEETH AND S 10/02/2015 LOGAN KANG APRN Ot K02.9 DENTAL CARIES, UNSPECIFIED 10/02/2015 LOGAN KANG APRN Ot K08.8 OTHER SPECIFIED DISORDERS OF TEETH AND S 10/02/2015 LOGAN KANG APRN Ot F17.210 NICOTINE DEPENDENCE, CIGARETTES, UNCOMPL 10/02/2015 LOGAN KANG APRN Ot K02.9 DENTAL CARIES, UNSPECIFIED 10/02/2015 LOGAN KANG APRN Ot K08.8 OTHER SPECIFIED DISORDERS OF TEETH AND S 10/06/2015 LOGAN KANG APRN Ot F17.210 NICOTINE DEPENDENCE, CIGARETTES, UNCOMPL 10/06/2015 LOGAN KANG APRN Ot K02.9 DENTAL CARIES, UNSPECIFIED 10/06/2015 LOGAN KANG APRN Ot K08.8 OTHER SPECIFIED DISORDERS OF TEETH AND S 10/07/2015 LOGAN KANG APRN Ot F17.210 NICOTINE DEPENDENCE, CIGARETTES, UNCOMPL 10/07/2015 LOGAN KANG APRN Ot K76.0 FATTY (CHANGE OF) LIVER, NOT ELSEWHERE C 10/07/2015 LOGAN KANG APRN Ot R06.02 SHORTNESS OF BREATH 10/07/2015 LOGAN KANG APRN Ot R07.9 CHEST PAIN, UNSPECIFIED 10/09/2015 LOGAN KANG APRN Ot F17.210 NICOTINE DEPENDENCE, CIGARETTES, UNCOMPL 10/09/2015 LOGAN KANG PARTY DEMONSTRATOR Ot K76.0 FATTY (CHANGE OF) LIVER, NOT ELSEWHERE C 10/09/2015 LOGAN KANG APRN Ot R06.02 SHORTNESS OF BREATH 10/09/2015 LOGAN KANG APRN Ot R07.9 CHEST PAIN, UNSPECIFIED 10/10/2015 LOGAN KANG APRN Ot F17.210 NICOTINE DEPENDENCE, CIGARETTES, UNCOMPL 10/10/2015 LOGAN KANG APRN Ot K76.0 FATTY (CHANGE OF) LIVER, NOT ELSEWHERE C 10/10/2015 LOGAN KANG APRN Ot R06.02 SHORTNESS OF BREATH 10/10/2015 LOGAN KANG APRN Ot R07.9 CHEST PAIN, UNSPECIFIED 12/11/2015 KIT JOHNSON DO Ot R10.84 GENERALIZED ABDOMINAL PAIN 12/11/2015 KIT JOHNSON DO Ot Z53.21 PROC/TRTMT NOT CRD OUT D/T PT LV BEF SEE 12/13/2015 KIT JOHNSON DO Ot R10.84 GENERALIZED ABDOMINAL PAIN 12/13/2015 KIT JOHNSON DO Ot Z53.21 PROC/TRTMT NOT CRD OUT D/T PT LV BEF SEE 01/26/2016 LINO GONZALES MD Ot 592.0 CALCULUS OF KIDNEY 01/26/2016 LINO GONZALES MD Ot 592.0 CALCULUS OF KIDNEY 01/26/2016 LINO GONZALES MD Ot 789.03 ABDOMINAL PAIN, RIGHT LOWER QUADRANT 01/26/2016 LINO GONZALES MD Ot 793.5 NOSP (ABN) FINDINGS ON RADIOLOGICAL OT 01/26/2016 LINO GONZALES MD Ot 592.0 CALCULUS OF KIDNEY 01/26/2016 LINO GONZALES MD Ot V72.84 EXAM PRE-OPERATIVE NOS 01/26/2016 LINO GONZALES MD Ot 592.9 URINARY CALCULUS NOS 01/27/2016 KRISTIAN CONTRERAS DO Ot F17.210 NICOTINE DEPENDENCE, CIGARETTES, UNCOMPL 01/27/2016 KRISTIAN CONTRERAS DO Ot I10 ESSENTIAL (PRIMARY) HYPERTENSION 01/27/2016 DIANE DO, KRISTIAN K Ot J44.0 CHRONIC OBSTRUCTIVE PULMON DISEASE W ACU 01/27/2016 DIANE DO, KRISTIAN K Ot R06.02 SHORTNESS OF BREATH 01/27/2016 DIANE DO, KRISTIAN K Ot R73.9 HYPERGLYCEMIA, UNSPECIFIED 01/27/2016 DIANE DO, KRISTIAN K Ot Z79.899 OTHER MCC (CURRENT) DRUG THERAPY 01/29/2016 DIANE DO, KRISTIAN [...] DIANE DO, KRISTIAN K Ot Z79.899 OTHER MCC (CURRENT) DRUG THERAPY 01/30/2016 DIANE DO, KRISTIAN [...] DIANE DO, KRISTIAN K Ot Z79.899 OTHER ACTUARY MANAGER (CURRENT) DRUG THERAPY 05/28/2016 NITHIN HALL Ot [...] PAIN 05/28/2016 NITHIN HALL Ot Z79.899 OTHER MCC (CURRENT) DRUG THERAPY 05/29/2016 NITHIN HALL Ot F17.210 NICOTINE DEPENDENCE, CIGARETTES, UNCOMPL 05/29/2016 NITHIN HALL L Ot I10 ESSENTIAL (PRIMARY) HYPERTENSION 05/29/2016 NITHIN HALL Ot K40.90 UNIL INGUINAL HERNIA, W/O OBST OR GANGR, 05/29/2016 NITHIN HALL L Ot N20.0 CALCULUS OF KIDNEY 05/29/2016 NITHIN HALL L Ot N39.0 URINARY TRACT INFECTION, SITE NOT SPECIF 05/29/2016 NITHIN HALL Ot R10.31 RIGHT LOWER QUADRANT PAIN 05/29/2016 NITHIN HALL Ot Z79.899 OTHER ACTUARY MANAGER (CURRENT) DRUG THERAPY 05/30/2016 NITHIN HALL Ot [...] PAIN 05/30/2016 NITHIN HALL Ot Z79.899 OTHER ACTUARY MANAGER (CURRENT) DRUG THERAPY 06/03/2016 NITHIN HALL Ot [...] PAIN 06/03/2016 NITHIN HALL Ot Z79.899 OTHER MCC (CURRENT) DRUG THERAPY 10/12/2016 NITHIN HALL Ot [...] Ot M19.90 UNSPECIFIED OSTEOARTHRITIS, UNSPECIFIED 10/12/2016 NITHIN HALL Ot M54.9 DORSALGIA, UNSPECIFIED 10/12/2016 NITHIN HALL [...] OTHER CHRONIC PAIN 10/13/2016 SALTY MENDEZ MD Ot I10 ESSENTIAL (PRIMARY) HYPERTENSION 10/13/2016 SALTY MENDEZ MD Ot J44.9 CHRONIC OBSTRUCTIVE PULMONARY DISEASE, U 10/13/2016 SALTY MENDEZ MD J Ot K05.6 PERIODONTAL DISEASE, UNSPECIFIED 10/13/2016 SALTY MENDEZ MD Ot K21.9 GASTRO-ESOPHAGEAL REFLUX DISEASE WITHOUT 10/13/2016 SALTY MENDEZ MD J Ot M19.90 UNSPECIFIED OSTEOARTHRITIS, UNSPECIFIED 10/13/2016 SALTY MENDEZ MD Ot M54.9 DORSALGIA, UNSPECIFIED 10/13/2016 SALTY MENDEZ MD J Ot N39.0 URINARY TRACT INFECTION, SITE NOT SPECIF 10/13/2016 SALTY MENDEZ MD J Ot R50.9 FEVER, UNSPECIFIED 10/13/2016 SALTY MENDEZ MD J Ot Z87.19 PERSONAL HISTORY OF OTHER DISEASES OF TH 10/13/2016 SALTY MENDEZ MD Ot Z87.442 PERSONAL HISTORY OF URINARY CALCULI 10/13/2016 SALTY MENDEZ MD Ot Z90.49 ACQUIRED ABSENCE OF OTHER SPECIFIED PART 10/14/2016 SALTY MENDEZ MD Ot E78.00 PURE HYPERCHOLESTEROLEMIA, UNSPECIFIED 10/14/2016 SALTY MENDEZ MD J Ot F17.210 NICOTINE DEPENDENCE, CIGARETTES, UNCOMPL 10/14/2016 SALTY MENDEZ MD Ot F31.9 BIPOLAR DISORDER, UNSPECIFIED 10/14/2016 SALTY MENDEZ MD Ot F41.9 ANXIETY DISORDER, UNSPECIFIED 10/14/2016 SALTY MENDEZ MD J Ot G47.30 SLEEP APNEA, UNSPECIFIED 10/14/2016 SALTY MENDEZ MD Ot G89.29 OTHER CHRONIC PAIN 10/14/2016 SALTY MENDEZ MD Ot I10 ESSENTIAL (PRIMARY) HYPERTENSION 10/14/2016 SALTY MENDEZ MD Ot J44.9 CHRONIC OBSTRUCTIVE PULMONARY DISEASE, U 10/14/2016 SALTY MENDEZ MD Ot K05.6 PERIODONTAL DISEASE, UNSPECIFIED 10/14/2016 SALTY MENDEZ MD Ot K21.9 GASTRO-ESOPHAGEAL REFLUX DISEASE WITHOUT 10/14/2016 SALTY MENDEZ MD J Ot M19.90 UNSPECIFIED OSTEOARTHRITIS, UNSPECIFIED 10/14/2016 SALTY MENDEZ MD Ot M54.9 DORSALGIA, UNSPECIFIED 10/14/2016 SALTY MENDEZ MD J Ot N39.0 URINARY TRACT INFECTION, SITE NOT SPECIF 10/14/2016 SALTY MENDEZ MD Ot R50.9 FEVER, UNSPECIFIED 10/14/2016 SALTY MENDEZ MD Ot Z87.19 PERSONAL HISTORY OF OTHER DISEASES OF 10/14/2016 SALTY MENDEZ MD Ot Z87.442 PERSONAL HISTORY OF URINARY CALCULI 10/14/2016 SALTY MENDEZ MD Ot Z90.49 ACQUIRED ABSENCE OF OTHER SPECIFIED PART 10/16/2016 LOGAN KANG APRN Ot E78.00 PURE HYPERCHOLESTEROLEMIA, UNSPECIFIED 10/16/2016 LOGAN KANG APRN Ot F31.9 BIPOLAR DISORDER, UNSPECIFIED 10/16/2016 LOGAN KANG APRN Ot F41.9 ANXIETY DISORDER, UNSPECIFIED 10/16/2016 LOAGN KANG APRN Ot G47.30 SLEEP APNEA, UNSPECIFIED 10/16/2016 LOGAN KNAG APRN Ot G89.29 OTHER CHRONIC PAIN 10/16/2016 LOGAN KANG APRN Ot I10 ESSENTIAL (PRIMARY) HYPERTENSION 10/16/2016 LOGAN KANG APRN Ot J20.9 ACUTE BRONCHITIS, UNSPECIFIED 10/16/2016 LOGAN KANG APRN Ot J44.0 CHRONIC OBSTRUCTIVE PULMON DISEASE W ACU 10/16/2016 LOGAN KANG APRN Ot M19.90 UNSPECIFIED OSTEOARTHRITIS, UNSPECIFIED 10/16/2016 LOGAN KANG APRN Ot M54.9 DORSALGIA, UNSPECIFIED 10/16/2016 LOGAN KANG APRN Ot R42 DIZZINESS AND GIDDINESS 10/16/2016 LOGAN KANG APRN Ot Z87.19 PERSONAL HISTORY OF OTHER DISEASES OF 10/16/2016 LOGAN KANG APRN Ot Z87.442 PERSONAL HISTORY OF URINARY CALCULI 10/16/2016 LOGAN KANG APRN Ot Z90.49 ACQUIRED ABSENCE OF OTHER SPECIFIED PART 10/18/2016 LOGAN KANG APRN Ot E78.00 PURE HYPERCHOLESTEROLEMIA, UNSPECIFIED 10/18/2016 LOGAN KANG APRN Ot F31.9 BIPOLAR DISORDER, UNSPECIFIED 10/18/2016 LOGAN KANG APRN Ot F41.9 ANXIETY DISORDER, UNSPECIFIED 10/18/2016 LOGAN KANG APRN Ot G47.30 SLEEP APNEA, UNSPECIFIED 10/18/2016 LOGAN KANG APRN Ot G89.29 OTHER CHRONIC PAIN 10/18/2016 LOGAN KANG PARTY DEMONSTRATOR Ot I10 ESSENTIAL (PRIMARY) HYPERTENSION 10/18/2016 LOGAN KANG PARTY DEMONSTRATOR Ot J20.9 ACUTE BRONCHITIS, UNSPECIFIED 10/18/2016 LOGAN KANG PARTY DEMONSTRATOR Ot J44.0 CHRONIC OBSTRUCTIVE PULMON DISEASE W ACU 10/18/2016 LOGAN KANG PARTY DEMONSTRATOR Ot M19.90 UNSPECIFIED OSTEOARTHRITIS, UNSPECIFIED 10/18/2016 LOGAN KANG APRN Ot M54.9 DORSALGIA, UNSPECIFIED 10/18/2016 LOGAN KANG APRN Ot R42 DIZZINESS AND GIDDINESS 10/18/2016 LOGAN KANG APRN Ot Z87.19 PERSONAL HISTORY OF OTHER DISEASES OF TH 10/18/2016 LOGAN KANG APRN Ot Z87.442 PERSONAL HISTORY OF URINARY CALCULI 10/18/2016 LOGAN KANG APRN Ot Z90.49 ACQUIRED ABSENCE OF OTHER SPECIFIED PART 10/18/2016 NITHIN HALL Ot E78.00 PURE HYPERCHOLESTEROLEMIA, UNSPECIFIED 10/18/2016 NITHIN HALL Ot F17.210 NICOTINE DEPENDENCE, CIGARETTES, UNCOMPL 10/18/2016 NITHIN HLAL Ot F31.9 BIPOLAR DISORDER, UNSPECIFIED 10/18/2016 NITHIN [...] Z90.49 ACQUIRED ABSENCE OF OTHER SPECIFIED PART 03/13/2017 Logan Kang 401.0 MALIGNANT ESSENTIAL HYPERTENSION 03/13/2017 Logan Kang 782.0 DISTURBANCE OF SKIN SENSATION 03/13/2017 Logan Kang 786.5 CHEST PAIN 03/13/2017 Logan Kang 789.01 ABDOMINAL PAIN, RIGHT UPPER QUADRANT 03/13/2017 Logan Kang I10 ESSENTIAL (PRIMARY) HYPERTENSION 03/13/2017 Logan Kang R07.89 OTHER CHEST PAIN 03/13/2017 Logan Kang R10.11 RIGHT UPPER QUADRANT PAIN 03/13/2017 Logan Kang R20.0 ANESTHESIA OF SKIN 03/16/2017 MARY LOU LENNON, RUDY T Ot M79.601 PAIN IN RIGHT ARM 03/16/2017 MARY LOU LENNON, RUDY T Ot Z86.73 PRSNL HX OF TIA (TIA), AND CEREB INFRC W 03/18/2017 MARY LOU LENNON, RUDY T Ot M79.601 PAIN IN RIGHT ARM 03/18/2017 MARY LOU LENNON, RUDY T Ot Z86.73 PRSNL HX OF TIA (TIA), AND CEREB INFRC W 03/20/2017 DIANE DO, KRISTIAN K Ot E78.00 PURE HYPERCHOLESTEROLEMIA, UNSPECIFIED 03/20/2017 DIANE DO, KRISTIAN K Ot F31.9 BIPOLAR DISORDER, UNSPECIFIED 03/20/2017 DIANE DO, KRISTIAN K Ot F41.9 ANXIETY DISORDER, UNSPECIFIED 03/20/2017 DIANE DO, KRISTIAN K Ot G47.30 SLEEP APNEA, UNSPECIFIED 03/20/2017 DIANE DO, KRISTIAN K Ot I10 ESSENTIAL (PRIMARY) HYPERTENSION 03/20/2017 DIANE DO, KRISTIAN K Ot J44.9 CHRONIC OBSTRUCTIVE PULMONARY DISEASE, U 03/20/2017 DIANE DO, KRISTIAN K Ot K21.9 GASTRO-ESOPHAGEAL REFLUX DISEASE WITHOUT 03/20/2017 DIANE DO, KRISTIAN K Ot R07.89 OTHER CHEST PAIN 03/20/2017 DIANE DO, KRISTIAN K Ot R07.9 CHEST PAIN, UNSPECIFIED 03/20/2017 DIANE DO KRISTIAN K Ot Z87.440 PERSONAL HISTORY OF URINARY (TRACT) INFE 03/24/2017 DIANE DO, KRISTIAN K Ot E78.00 PURE HYPERCHOLESTEROLEMIA, UNSPECIFIED 03/24/2017 DIANE DO, KRISTIAN K Ot F31.9 BIPOLAR DISORDER, UNSPECIFIED 03/24/2017 DIANE DO, KRISTIAN K Ot F41.9 ANXIETY DISORDER, UNSPECIFIED 03/24/2017 DIANE DO, KRISTIAN K Ot G47.30 SLEEP APNEA, UNSPECIFIED 03/24/2017 DIANE DO, KRISTIAN K Ot I10 ESSENTIAL (PRIMARY) HYPERTENSION 03/24/2017 DIANE DO, KRISTIAN K Ot J44.9 CHRONIC OBSTRUCTIVE PULMONARY DISEASE, U 03/24/2017 DIANE DO, KRISTIAN K Ot K21.9 GASTRO-ESOPHAGEAL REFLUX DISEASE WITHOUT 03/24/2017 DIANE DO, KRISTIAN K Ot R07.89 OTHER CHEST PAIN 03/24/2017 DIANE DO, KRISTIAN K Ot R07.9 CHEST PAIN, UNSPECIFIED 03/24/2017 DIANE DO, KRISTIAN K Ot Z87.440 PERSONAL HISTORY OF URINARY (TRACT) INFE 04/27/2017 DIANE DO, KRISTIAN K Ot E66.01 MORBID (SEVERE) OBESITY DUE TO EXCESS CA 04/27/2017 DIANE DO, KRISTIAN K Ot E78.00 PURE HYPERCHOLESTEROLEMIA, UNSPECIFIED 04/27/2017 DIANE DO, KRISTIAN K Ot F14.10 COCAINE ABUSE, UNCOMPLICATED 04/27/2017 DIANE DO, KRISTIAN K Ot F17.210 NICOTINE DEPENDENCE, CIGARETTES, UNCOMPL 04/27/2017 DIANE DO, KRISTIAN K Ot F31.9 BIPOLAR DISORDER, UNSPECIFIED 04/27/2017 DIANE DO KRISTIAN K Ot F41.9 ANXIETY DISORDER, UNSPECIFIED 04/27/2017 DIANE DO, KRISTIAN K Ot G47.30 SLEEP APNEA, UNSPECIFIED 04/27/2017 DIANE DO, KRISTIAN K Ot I10 ESSENTIAL (PRIMARY) HYPERTENSION 04/27/2017 DIANE DO, KRISTIAN K Ot J44.9 CHRONIC OBSTRUCTIVE PULMONARY DISEASE, U 04/27/2017 DIANE DO, KRISTIAN K Ot K21.9 GASTRO-ESOPHAGEAL REFLUX DISEASE WITHOUT 04/27/2017 DIANE DO, KRISTIAN K Ot R07.89 OTHER CHEST PAIN 04/27/2017 DIANE DO, KRISTIAN K Ot Z68.43 BODY MASS INDEX (BMI) 50-59.9 , ADULT 04/27/2017 KRISTIAN CONTRERAS DO Ot Z79.52 ACTUARY MANAGER (CURRENT) USE OF SYSTEMIC STER 04/27/2017 KRISTIAN CONTRERAS DO Ot Z87.442 PERSONAL HISTORY OF URINARY CALCULI 04/27/2017 KRISTIAN CONTRERAS DO Ot Z87.448 PERSONAL HISTORY OF OTHER DISEASES OF UR 04/27/2017 JANET LENNON, LINO Hays Ot 592.0 CALCULUS OF KIDNEY 04/27/2017 JANET LENNON, LINO Hays Ot 592.0 CALCULUS OF KIDNEY 04/27/2017 JANET LENNON, LINO Hays Ot 789.03 ABDOMINAL PAIN, RIGHT LOWER QUADRANT 04/27/2017 JANET LENNON, LINO Hays Ot 793.5 NOSP (ABN) FINDINGS ON RADIOLOGICAL OT 04/27/2017 LINO GONZALES MD Ot 592.0 CALCULUS OF KIDNEY 04/27/2017 LINO GONZALES MD Ot V72.84 EXAM PRE-OPERATIVE NOS 04/27/2017 LINO GONZALES MD Ot 592.9 URINARY CALCULUS NOS 04/28/2017 JANET LENNON, LINO Hays Ot 592.0 CALCULUS OF KIDNEY 04/28/2017 JANET LENNON, LINO Hays Ot 592.0 CALCULUS OF KIDNEY 04/28/2017 JANET LENNON, LINO Hays Ot 789.03 ABDOMINAL PAIN, RIGHT LOWER QUADRANT 04/28/2017 LINO GONZALES MD Ot 793.5 NOSP (ABN) FINDINGS ON RADIOLOGICAL OT 04/28/2017 LINO GONZALES MD Ot 592.0 CALCULUS OF KIDNEY 04/28/2017 LINO GONZALES MD Ot V72.84 EXAM PRE-OPERATIVE NOS 04/28/2017 LINO GONZALES MD Ot 592.9 URINARY CALCULUS NOS 04/29/2017 KRISTIAN CONTRERAS DO Ot E66.01 MORBID (SEVERE) OBESITY DUE TO EXCESS CA 04/29/2017 KRISTIAN CONTRERAS DO Ot E78.00 PURE HYPERCHOLESTEROLEMIA, UNSPECIFIED 04/29/2017 KRISTIAN CONTRERAS DO Ot F14.10 COCAINE ABUSE, UNCOMPLICATED 04/29/2017 KRISTIAN CONTRERAS DO Ot F17.210 NICOTINE DEPENDENCE, CIGARETTES, UNCOMPL 04/29/2017 KRISITAN CONTRERAS DO Ot F31.9 BIPOLAR DISORDER, UNSPECIFIED 04/29/2017 KRISTIAN CONTRERAS DO Ot F41.9 ANXIETY DISORDER, UNSPECIFIED 04/29/2017 KRISTIAN CONTRERAS DO Ot G47.30 SLEEP APNEA, UNSPECIFIED 04/29/2017 KRISTIAN CONTRERAS DO Ot I10 ESSENTIAL (PRIMARY) HYPERTENSION 04/29/2017 KRISTIAN CONTRERAS DO Ot J44.9 CHRONIC OBSTRUCTIVE PULMONARY DISEASE, U 04/29/2017 KRISTIAN CONTRERAS DO Ot K21.9 GASTRO-ESOPHAGEAL REFLUX DISEASE WITHOUT 04/29/2017 KRISTIAN CONTRERAS DO Ot R07.89 OTHER CHEST PAIN 04/29/2017 KRISTIAN CONTRERAS DO Ot Z68.43 BODY MASS INDEX (BMI) 50-59.9 , ADULT 04/29/2017 KRISTIAN CONTRERAS DO Ot Z79.52 ACTUARY MANAGER (CURRENT) USE OF SYSTEMIC STER 04/29/2017 KRISTIAN CONTRERAS DO Ot Z87.442 PERSONAL HISTORY OF URINARY CALCULI 04/29/2017 KRISTIAN CONTRERAS DO Ot Z87.448 PERSONAL HISTORY OF OTHER DISEASES OF UR 04/29/2017 SOL RUBIO MD (DDU) Ot Z02.71 ENCOUNTER FOR DISABILITY DETERMINATION 05/04/2017 SOL RUBIO MD (DDU) Ot Z02.71 ENCOUNTER FOR DISABILITY DETERMINATION 07/02/2017 SOL RUBIO MD (DDU) Ot Z02.71 ENCOUNTER FOR DISABILITY DETERMINATION Procedures There is no data. Results Test [...] FOR INFLUENZA A AND B ANTIGENS BY IA [facility] Comprehensive metabolic panel - 01/27/16 00:08 [...] or plasma urea nitrogen/creatinine mass ratio 12 [facility] Serum or plasma creatinine measurement with calculation [...] culture - 10/13/16 01:14 Bacterial urine culture [id number] NRG COLONY COUNT <10,000 NRG Complete blood [...] 10/16/16 16:40 BNP level < pg/mL <100.0 Comprehensive Metabolic Panel - 03/13/17 13:39 Albumin 3.7 g/dL 3.6-5.1 ALP 48 U/L 35-130 ALT 35 U/L 6-45 Anion Gap 14 6-14 AST 25 U/L 2-40 BUN 16 mg/dL 5-25 Calcium 8.9 mg/dL 8.3-10.4 Chloride 110 mmol/L 95-114 CO2 19 mEq/L 22-33 Creat 1.43 mg/dL 0.50-1.50 eGFR 53 mL/min/1.73m2 >59 Globulin 2.5 g/dL 2.3-3.5 Glucose 109 mg/dL 70-110 Osmo 289 280-295 Potassium 3.6 mmol/L 3.5-5.3 Sodium 139 mmol/L 134-148 TBil 0.3 mg/dL 0.2-1.2 TP 6.2 g/dL 6.0-8.3 Complete blood count (CBC) with automated white blood cell (WBC) differential - 03/20/17 10:00 Blood leukocytes automated count (number/volume) 14.0 10*3/uL 4.3-11.0 Blood erythrocytes automated count (number/volume) 4.88 10*6/uL 4.35-5.85 Venous blood hemoglobin measurement (mass/volume) 15.2 g/dL 13.3-17.7 Blood hematocrit (volume fraction) 45 % 40-54 Automated erythrocyte mean corpuscular volume 91 [foz_us] 80-99 Automated erythrocyte mean corpuscular hemoglobin (mass per erythrocyte) 31 pg 25-34 Automated erythrocyte mean corpuscular hemoglobin concentration measurement ( mass/volume) 34 g/dL 32-36 Automated erythrocyte distribution width ratio 14.4 % 10.0-14.5 Automated blood platelet count (count/volume) 195 10*3/uL 130-400 Automated blood platelet mean volume measurement 10.7 [foz_us] 7.4-10.4 Automated blood neutrophils/100 leukocytes 76 % 42-75 Automated blood lymphocytes/100 leukocytes 15 % 12-44 Blood monocytes/100 leukocytes 7 % 0-12 Automated blood eosinophils/100 leukocytes 2 % 0-10 Automated blood basophils/100 leukocytes 0 % 0-10 Blood neutrophils automated count (number/volume) 10.7 10*3 1.8-7.8 Blood lymphocytes automated count (number/volume) 2.1 10*3 1.0-4.0 Blood monocytes automated count (number/volume) 1.0 10*3 0.0-1.0 Automated eosinophil count 0.2 10*3/uL 0.0-0.3 Automated blood basophil count (count/volume) 0.1 10*3/uL 0.0-0.1 PT panel in platelet poor plasma by coagulation assay - 03/20/17 10:00 Prothrombin time (PT) in platelet poor plasma by coagulation assay 12.1 s 12.2-14.7 INR in platelet poor plasma or blood by coagulation assay 0.9 0.8-1.4 Activated partial thromboplastin time (aPTT) in platelet poor plasma bycoagulation assay - 03/20/17 10:00 Activated partial thromboplastin time (aPTT) in platelet poor plasma bycoagulation assay 24 s 24-35 Serum or plasma lithium measurement (moles/volume) - 03/20/17 10:00 BNP level < pg/mL <100.0 Comprehensive metabolic panel - 03/20/17 10:55 Serum or plasma sodium measurement (moles/volume) 139 mmol/L 135-145 Serum or plasma potassium measurement (moles/volume) 3.7 mmol/L 3.6-5.0 Serum or plasma chloride measurement (moles/volume) 109 mmol/L 98-107 Carbon dioxide 20 mmol/L 21-32 Serum or plasma anion gap determination (moles/volume) 10 mmol/L 5-14 Serum or plasma urea nitrogen measurement (mass/volume) 11 mg/dL 7-18 Serum or plasma creatinine measurement (mass/volume) 1.29 mg/dL 0.60-1.30 Serum or plasma urea nitrogen/creatinine mass ratio 9 NRG Serum or plasma creatinine measurement with calculation of estimated glomerular filtration rate 60 NRG Serum or plasma glucose measurement (mass/volume) 112 mg/dL 70-105 Serum or plasma calcium measurement (mass/volume) 9.2 mg/dL 8.5-10.1 Serum or plasma total bilirubin measurement (mass/volume) 0.4 mg/dL 0.1-1.0 Serum or plasma alkaline phosphatase measurement (enzymatic activity/volume) 55 U/L 40-136 Serum or plasma aspartate aminotransferase measurement (enzymatic activity/ volume) 27 U/L 5-34 Serum or plasma alanine aminotransferase measurement (enzymatic activity/volume ) 44 U/L 0-55 Serum or plasma protein measurement (mass/volume) 6.5 g/dL 6.4-8.2 Serum or plasma albumin measurement (mass/volume) 4.0 g/dL 3.2-4.5 Magnesium - 03/20/17 10:55 Magnesium 1.9 mg/dL 1.8-2.4 Serum or plasma creatine kinase measurement (enzymatic activity/volume) - 03/20 10:55 Serum or plasma creatine kinase measurement (enzymatic activity/volume) 167 U/L 30-200 Serum or plasma creatine kinase MB measurement (enzymatic activity/volume) - 10:55 Serum or plasma creatine kinase MB measurement (enzymatic activity/volume) 3.6 ng/mL <6.6 Serum or plasma troponin i.cardiac measurement (mass/volume) - 03/20/17 10:55 Serum or plasma troponin i.cardiac measurement (mass/volume) < ng/ mL <0.30 Serum or plasma ethanol measurement (mass/volume) - 03/20/17 10:55 Serum or plasma ethanol measurement (mass/volume) < mg/dL <10 Serum or plasma amylase measurement (enzymatic activity/volume) - 03/20/17 10: 55 Serum or plasma amylase measurement (enzymatic activity/volume) 36 U /L 25-125 Lipase - 03/20/17 10:55 Lipase 38 U/L 8-78 Urine drug screening test - 03/20/17 12:21 Urine phencyclidine detection by screening method NEGATIVE NEGATIVE Urine benzodiazepines detection by screening method NEGATIVE NEGATIVE Urine cocaine detection NEGATIVE NEGATIVE Urine amphetamines detection by screening method NEGATIVE NEGATIVE Urine methamphetamine detection by screening method NEGATIVE NEGATIVE Urine cannabinoids detection by screening method NEGATIVE NEGATIVE Urine opiates detection by screening method NEGATIVE NEGATIVE Urine barbiturates detection NEGATIVE NEGATIVE Screening urine tricyclic antidepressants detection NEGATIVE NEGATIVE Urine methadone detection by screening method NEGATIVE NEGATIVE Urine oxycodone detection NEGATIVE NEGATIVE Urine propoxyphene detection NEGATIVE NEGATIVE Complete urinalysis with reflex to culture - 03/20/17 12:21 Urine color determination YELLOW NRG Urine clarity determination CLEAR NRG Urine pH measurement by test strip 7 5-9 Specific gravity of urine by test strip 1.010 1.016- 1.022 Urine protein assay by test strip, semi-quantitative 1+ NEGATIVE Urine glucose detection by automated test strip NEGATIVE NEGATIVE Erythrocytes detection in urine sediment by light microscopy 1+ NEGATIVE Urine ketones detection by automated test strip NEGATIVE NEGATIVE Urine nitrite detection by test strip POSITIVE NEGATIVE Urine total bilirubin detection by test strip NEGATIVE NEGATIVE Urine urobilinogen measurement by automated test strip (mass/volume) NORMAL NORMAL Urine leukocyte esterase detection by dipstick 2+ NEGATIVE Automated urine sediment erythrocyte count by microscopy (number/high power field) [HPF] NRG Automated urine sediment leukocyte count by microscopy (number/high power field ) [HPF] NRG Bacteria detection in urine sediment by light microscopy LARGE NRG Crystals detection in urine sediment by light microscopy NONE NRG Casts detection in urine sediment by light microscopy NONE NRG Mucus detection in urine sediment by light microscopy NEGATIVE NRG Complete urinalysis with reflex to culture YES NRG Bacterial urine culture - 03/20/17 12:21 Bacterial urine culture [id number] NRG COLONY COUNT >100,000/ML NRG FTX;REPORTABLE SENSITIVITY REPORTED 03/21 17:00 NRG FREE TEXT ENTRY 3 MIXED GRAM POSITIVE ABDIRAHMAN <10,000/ML NRG Bacterial susceptibility panel - 03/20/17 12:21 Gentamicin susceptibility test by minimum inhibitory concentration < = NRG Trimethoprim/sulfamethoxazole susceptibility test by minimum inhibitoryconcentration S NRG Ampicillin susceptibility test by minimum inhibitory concentration > = NRG Tobramycin susceptibility test by minimum inhibitory concentration < = NRG Cefazolin susceptibility test by minimum inhibitory concentration < = NRG Ceftriaxone susceptibility test by minimum inhibitory concentration <= NRG Ampicillin/sulbactam susceptibility test by minimum inhibitory concentration S NRG Piperacillin/tazobactam susceptibility test by minimum inhibitory concentration S NRG Ciprofloxacin susceptibility test by minimum inhibitory concentration <= NRG Meropenem susceptibility test by minimum inhibitory concentration < = NRG Nitrofurantoin susceptibility test by minimum inhibitory concentration <= NRG Aztreonam susceptibility test by minimum inhibitory concentration < = NRG Extended spectrum beta lactamase (ESBL) producing bacteria susceptibility test by minimum inhibitory concentration - NRG Complete blood count (CBC) with automated white blood cell (WBC) differential - 04/27/17 18:35 Blood leukocytes automated count (number/volume) 7.8 10*3/uL 4.3-11.0 Blood erythrocytes automated count (number/volume) 4.85 10*6/uL 4.35-5.85 Venous blood hemoglobin measurement (mass/volume) 15.1 g/dL 13.3-17.7 Blood hematocrit (volume fraction) 45 % 40-54 Automated erythrocyte mean corpuscular volume 92 [foz_us] 80-99 Automated erythrocyte mean corpuscular hemoglobin (mass per erythrocyte) 31 pg 25-34 Automated erythrocyte mean corpuscular hemoglobin concentration measurement ( mass/volume) 34 g/dL 32-36 Automated erythrocyte distribution width ratio 14.3 % 10.0-14.5 Automated blood platelet count (count/volume) 182 10*3/uL 130-400 Automated blood platelet mean volume measurement 10.5 [[id number]] 7.4-10.4 Automated blood neutrophils/100 leukocytes 65 % 42-75 Automated blood lymphocytes/100 leukocytes 22 % 12-44 Blood monocytes/100 leukocytes 11 % 0-12 Automated blood eosinophils/100 leukocytes 3 % 0-10 Automated blood basophils/100 leukocytes 1 % 0-10 Blood neutrophils automated count (number/volume) 5.1 10*3 1.8-7.8 Blood lymphocytes automated count (number/volume) 1.7 10*3 1.0-4.0 Blood monocytes automated count (number/volume) 0.8 10*3 0.0-1.0 Automated eosinophil count 0.2 10*3/uL 0.0-0.3 Automated blood basophil count (count/volume) 0.0 10*3/uL 0.0-0.1 PT panel in platelet poor plasma by coagulation assay - 04/27/17 18:35 Prothrombin time (PT) in platelet poor plasma by coagulation assay 12.8 s 12.2-14.7 INR in platelet poor plasma or blood by coagulation assay 1.0 0.8-1.4 Activated partial thromboplastin time (aPTT) in platelet poor plasma bycoagulation assay - 04/27/17 18:35 Activated partial thromboplastin time (aPTT) in platelet poor plasma bycoagulation assay 28 s 24-35 Comprehensive metabolic panel - 04/27/17 18:35 Serum or plasma sodium measurement (moles/volume) 139 mmol/L 135-145 Serum or plasma potassium measurement (moles/volume) 3.8 mmol/L 3.6-5.0 Serum or plasma chloride measurement (moles/volume) 109 mmol/L 98-107 Carbon dioxide 19 mmol/L 21-32 Serum or plasma anion gap determination (moles/volume) 11 mmol/L 5-14 Serum or plasma urea nitrogen measurement (mass/volume) 12 mg/dL 7-18 Serum or plasma creatinine measurement (mass/volume) 1.48 mg/dL 0.60-1.30 Serum or plasma urea nitrogen/creatinine mass ratio 8 NRG Serum or plasma creatinine measurement with calculation of estimated glomerular filtration rate 51 NRG Serum or plasma glucose measurement (mass/volume) 126 mg/dL 70-105 Serum or plasma calcium measurement (mass/volume) 9.4 mg/dL 8.5-10.1 Serum or plasma total bilirubin measurement (mass/volume) 0.4 mg/dL 0.1-1.0 Serum or plasma alkaline phosphatase measurement (enzymatic activity/volume) 50 U/L 40-136 Serum or plasma aspartate aminotransferase measurement (enzymatic activity/ volume) 31 U/L 5-34 Serum or plasma alanine aminotransferase measurement (enzymatic activity/volume ) 38 U/L 0-55 Serum or plasma protein measurement (mass/volume) 6.3 g/dL 6.4-8.2 Serum or plasma albumin measurement (mass/volume) 4.0 g/dL 3.2-4.5 Serum or plasma creatine kinase measurement (enzymatic activity/volume) - 04/27 18:35 Serum or plasma creatine kinase measurement (enzymatic activity/volume) 121 U/L 30-200 Serum or plasma creatine kinase MB measurement (enzymatic activity/volume) - 18:35 Serum or plasma creatine kinase MB measurement (enzymatic activity/volume) 2.9 ng/mL <6.6 Serum or plasma troponin i.cardiac measurement (mass/volume) - 04/27/17 18:35 Serum or plasma troponin i.cardiac measurement (mass/volume) < ng/ mL <0.30 Serum or plasma amylase measurement (enzymatic activity/volume) - 04/27/17 18: 35 Serum or plasma amylase measurement (enzymatic activity/volume) 33 U /L 25-125 Lipase - 04/27/17 18:35 Lipase 36 U/L 8-78 Serum or plasma lithium measurement (moles/volume) - 04/27/17 18:35 BNP level < pg/mL <100.0 Urine drug screening test - 04/27/17 19:09 Urine phencyclidine detection by screening method NEGATIVE NEGATIVE Urine benzodiazepines detection by screening method NEGATIVE NEGATIVE Urine cocaine detection NEGATIVE NEGATIVE Urine amphetamines detection by screening method NEGATIVE NEGATIVE Urine methamphetamine detection by screening method NEGATIVE NEGATIVE Urine cannabinoids detection by screening method NEGATIVE NEGATIVE Urine opiates detection by screening method NEGATIVE NEGATIVE Urine barbiturates detection NEGATIVE NEGATIVE Screening urine tricyclic antidepressants detection POSITIVE NEGATIVE Urine methadone detection by screening method NEGATIVE NEGATIVE Urine oxycodone detection NEGATIVE NEGATIVE Urine propoxyphene detection NEGATIVE NEGATIVE Complete urinalysis with reflex to culture - 04/27/17 19:09 Urine color determination YELLOW NRG Urine clarity determination VERY CLOUDY NRG Urine pH measurement by test strip 7 5-9 Specific gravity of urine by test strip 1.015 1.016- 1.022 Urine protein assay by test strip, semi-quantitative 1+ NEGATIVE Urine glucose detection by automated test strip NEGATIVE NEGATIVE Erythrocytes detection in urine sediment by light microscopy 1+ NEGATIVE Urine ketones detection by automated test [...] urine sediment by light microscopy NEGATIVE NRG Squamous epithelial cells detection in urine sediment by light microscopy >50 NRG Crystals detection in urine sediment by light microscopy PRESENT NRG Casts detection in urine sediment by light microscopy PRESENT NRG Mucus detection in urine sediment by light microscopy NEGATIVE NRG Complete urinalysis with reflex to culture NO NRG Amorphous sediment detection in urine sediment by light microscopy LARGE TARYN URATES NRG Hyaline casts detection in urine sediment by light microscopy 2-5 NRG Renal epithelial cells detection in urine sediment by light microscopy NONE NRG Calcium oxalate crystals detection in urine sediment by light microscopy FEW NRG Encounters ACCT No. Visit Date/Time Discharge Status Pt. Type Provider Facility Loc./Unit Complaint [id number] 04/28/2017 12:56:00 04/28/2017 23:59:59 CLS Outpatient SOL RUBIO MD (DDU) [facility] RT BREATHING PROBLEMS [id number] 04/27/2017 18:03:00 04/27/2017 20:03:00 DIS Emergency DIANE DOKRISTIAN [facility] ER INTERMITTENT CP [id number] 03/20/2017 09:45:00 03/20/2017 13:57:00 DIS Emergency DIANE DOKRISTIAN [facility] ER CP AND R ARM PAIN [id number] 03/16/2017 17:24:00 03/16/2017 18:51:00 DIS Emergency RUDY BARRETO MD [facility] ER R ARM PAIN/HX OF TIA [id number] 10/16/2016 16:32:00 10/16/2016 18:04:00 DIS Emergency LOGAN KANG APRN [facility] ER DIZZINESS,NOSE BLEED [id number] 10/12/2016 23:24:00 10/13/2016 02:12:00 DIS Emergency SALTY MENDEZ MD [facility] ER BP [id number] 10/12/2016 12:42:00 10/12/2016 15:42:00 DIS Emergency NITHIN HALL [facility] ER DENTAL PAIN/SWELLING POSS INFECTION [id number] 05/28/2016 20:30:00 05/28/2016 23:11:00 DIS Emergency NITHIN HALL [facility] ER R SIDE PAIN [id number] 01/26/2016 23:11:00 01/27/2016 01:20:00 DIS Emergency KRISTIAN CONTRERAS DO [facility] ER CP,SOB,CONGESTION [id number] 12/11/2015 16:04:00 12/11/2015 17:15:00 DIS Emergency KIT JOHNSON DO [facility] ER ABD PAIN [id number] 10/07/2015 17:30:00 10/07/2015 20:45:00 DIS Emergency LOGAN KANG APRN [facility] ER CHEST PAIN/SOA [id number] 09/30/2015 13:50:00 09/30/2015 14:24:00 DIS Emergency LOGAN KANG APRN [facility] ER DENTAL PAIN [id number] 01/15/2015 21:30:00 01/15/2015 23:27:00 DIS Emergency NITHIN HALL [facility] ER BACK PAIN [id number] 10/25/2014 13:37:00 10/25/2014 23:59:59 CLS Outpatient LINO GONZALES MD [facility] RAD STONES [id number] 10/04/2014 07:51:00 10/04/2014 16:10:00 DIS Outpatient LINO GONZALES MD [facility] SDC LEFT RENAL STONE [id number] 09/27/2014 05:58:00 09/27/2014 23:59:59 CLS Outpatient LINO GONZALES MD [facility] PREOP LEFT RENAL STONE [id number] 10/18/2013 19:39:00 10/18/2013 21:28:00 DIS Emergency KIT JOHNSON DO [facility] ER CHEST PAIN, R ARM PAIN [id number] 09/04/2013 19:34:00 09/04/2013 22:38:00 DIS Emergency DONN MARSH MD [facility] ER LEFT SIDE PAIN [id number] 08/06/2013 08:09:00 08/06/2013 23:59:59 CLS Outpatient LINO GONZALES MD [facility] RAD RLQ PAIN, HX OF STONES [id number] 08/05/2013 13:42:00 08/05/2013 23:59:59 CLS Outpatient LINO GONZALES MD [facility] RAD STONE [id number] 10/17/2012 11:17:00 10/17/2012 23:59:59 CLS Outpatient [id number] 10/26/2011 15:47:00 Document Registration [id number] 12/31/2010 19:20:00 Document Registration [id number] 10/26/2014 06:55:12 ACT Document Registration [id number] 05/25/2017 14:45:00 05/25/2017 23:59:59 C[id number] 03/13/2017 13:37:00 03/13/2017 15:06:00 [facility] [id number] 03/13/2017 13:40:44 Document Registration
[2017-07-03] MEDS ORDERED: NITROGLYCERIN 0.4 MG SL TABS BTL 25'S SL PRN ×2 (18:30→23:00)
[2017-07-03] MEDS ORDERED: ASPIRIN 81 MG CHEW (CHILDREN'S ASA) PO ONE (18:30)
--- NOTE | 2017-07-03 18:36 | ED Chest Pain ---
General Chief Complaint: Chest Pain Stated Complaint: CHEST PAIN;DIZZINESS Source: patient, other (girlfriend and girlfriend's daughter) Exam Limitations: no limitations History of Present Illness Date Seen by Provider: July 03, 2017 Time Seen by Provider: 18:22 Initial Comments The patient presents to the ER by private conveyance with a chief complaint of chest pain started about a half hour prior to arrival. He says the chest pain is in his right chest and does not radiate anywhere. He did have sweats but no nausea. No chills or fever. He has some shortness of breath but no productive cough. He has a history of COPD, diabetes on metformin, hypertension, hypercholesterolemia but no hypothyroidism or previous coronary artery disease. He says he had a stress test within the last year by Dr. Zuñiga in [place] who was negative as well as his girlfriend thinks a couple years ago he had a heart catheterization by at this hospital. He is feeling weak and his chest pain is worsened by exertion. He does smoke cigarettes. Allergies and Home Medications Allergies Coded Allergies: No Known Drug Allergies (Unverified , 12/31/10) Home Medications Albuterol Sulfate 1 Puff Puff, 2 PUFF IH Q4H PRN for WHEEZING 2 puffs every 4 hours Prescribed by: LOGAN SNELL on 10/16/16 175 Amitriptyline HCl 50 Mg Tablet, 50 MG PO HS, (Reported) Amoxicillin 500 Mg Capsule, 1,000 MG PO TID Prescribed by: NITHIN GOODWIN on 10/12/16 1528 Aripiprazole 15 Mg Tab, 20 TAB PO DAILY, (Reported) DAILY Atorvastatin Calcium 10 Mg Tablet, 10 MG PO HS, (Reported) Azithromycin 250 Mg Tablet, 250 MG PO UD TAKE 2 TABLETS ON DAY ONE THEN TAKE 1 TABLET DAILY FOR FOUR MORE DAYS Prescribed by: LOGAN SNELL on 10/16/16 175 Bupropion Hcl 100 Mg Tablet, 1 TAB PO TID, (Reported) Ciprofloxacin HCl 500 Mg Tablet, 500 MG PO BID Prescribed by: NITHIN GOODWIN on 05/28/16 2252 Cyclobenzaprine Hcl 10 Mg Tablet, 1 EACH PO TID PRN for SPASMS, (Reported) Dicyclomine HCl 10 Mg Capsule, 20 MG PO QID, (Reported) Famotidine 20 Mg Tablet, 1 EACH PO BID Prescribed by: KIT JOHNSON on 10/18/132110 Fenofibrate,Micronized 145 Mg Tablet, 145 MG PO DAILY, (Reported) Hydrocodone Bit/Acetaminophen 1 Each Tablet, 1 EACH PO Q6H PRN for PAIN Prescribed by: NITHIN GOODWIN on 01/15/152314 Lisinopril 10 Mg Tablet, 10 MG PO DAILY, (Reported) Meloxicam 15 Mg Tablet, 15 MG PO DAILY Prescribed by: KRISTIAN CONTRERAS on 03/20/17 1310 Meloxicam 15 Mg Tablet, 15 MG PO DAILY Prescribed by: KRISTIAN CONTRERAS on 04/27/171954 Mesalamine 250 Mg Capsule.er, 250 MG PO BID, (Reported) Metoprolol Tartrate 25 Mg Tablet, 25 MG PO BID, (Reported) Ocate-3 Acid Ethyl Esters 1 Gm Capsule, 2 G PO BID WITH MEALS, (Reported) Pantoprazole Sodium 40 Mg Tablet.dr, 40 MG PO DAILY, (Reported) Phenazopyridine HCl 200 Mg Tablet, 1 TAB PO Q8H PRN for PAIN Prescribed by: NITHIN GOODWIN on 05/28/162251 Prednisone 20 Mg Tab, 40 MG PO DAILY Prescribed by: LOGAN SNELL on 10/16/16 175 Ropinirole Hcl 2 Mg Tablet, 2 MG PO BID, (Reported) Sucralfate 1 Gm Tab, 1 GM PO UD TAKE BEFORE EACH MEAL AND AT BEDTIME FOR STOMACH Prescribed by: KIT JOHNSON on 10/18/132110 Sulfamethoxazole/Trimethoprim 1 Each Tablet, 1 EACH PO BID Prescribed by: ASLTY MENDEZ on 10/13/16 0158 Topiramate 50 Mg Tablet, 50 MG PO HS, (Reported) Patient Home Medication List Home Medication List Reviewed: Yes Review of Systems Constitutional: No chills, No diaphoresis EENTM: No Blurred Vision, No Double Vision Respiratory: Cough (URI past week), Shortness of Air (mild), SOA With Exertion Cardiovascular: See HPI, Chest Pain; Denies Edema, Denies Palpitations, Denies Syncope Gastrointestinal: Denies Abdominal Pain, Denies Constipated, Denies Diarrhea Genitourinary: Denies Burning, Denies Discharge Musculoskeletal: No back pain, No joint pain Past Bgcepyy-Ytcwll-Oyaaym Hx Patient Social History Recreational Drug Use: No Drug of Choice: SPEED, COCAINE Smoking Status: Current Everyday Smoker Type Used: Cigarettes Recent Foreign Travel: No Contact w/Someone Who Travel: No Recent Hopitalizations: Yes Immunizations Up To Date Tetanus Booster (TDap): Unknown Date of Influenza Vaccine: Dec 01, 2013 Seasonal Allergies Seasonal Allergies: No Past Medical History Surgeries: Yes (LAP EVELIO, BACK SURGERY, FINGER; LITHOTRIPSY ) Gallbladder, Orthopedic, Renal Respiratory: Yes (C-PAP MACHINE) Sleep Apnea, COPD Cardiac: Yes High Cholesterol, Hypertension Neurological: No Reproductive Disorders: No Sexually Transmitted Disease: No HIV/AIDS: No Genitourinary: Yes Kidney Stones Gastrointestinal: Yes (S/P EVELIO; FATTY LIVER ON CT. ) Colitis, Gastroesophageal Reflux, Gall Bladder Disease Musculoskeletal: Yes Arthritis, Chronic Back Pain Endocrine: Yes (MORBID OBESITY) HEENT: Yes (POOR DENTITION) Cancer: No Psychosocial: Yes (BIPOLAR, TAKES MEDS) Anxiety, Bipolar, Depression Integumentary: No Blood Disorders: No Adverse Reaction/Blood Tranf: No Family Medical History No Pertinent Family Hx Physical Exam Vital Signs Vital Signs - First Documented 07/03/17 18:25 Temp 98.1 Pulse 105 Resp 20 B/P (MAP) 145/95 (112) O2 Delivery Room Air Capillary Refill : General Appearance: Anxious, Mild Distress, Obese HEENT: PERRL/EOMI, Normal ENT Inspection, Pharynx Normal Neck: Full Range of Motion, Normal Inspection, Non Tender, Supple Respiratory: Chest Non Tender, Lungs Clear, Normal Breath Sounds, No Accessory Muscle Use, No Respiratory Distress Cardiovascular: Regular Rate, Rhythm, No Edema, Normal Peripheral Pulses Gastrointestinal: Normal Bowel Sounds, Non Tender, Soft Extremity: Normal Capillary Refill, No Pedal Edema Neurologic/Psychiatric: Alert, Oriented x3 Skin: Normal Color, Warm/Dry Progress/Results/Core Measures Results/Orders Lab Results Laboratory Tests Test 07/03/17 18:40 07/03/17 19:45 Range/Units White Blood Count 8.0 4.3-11.0 10^3/uL Red Blood Count 5.01 4.35-5.85 10^6/uL Hemoglobin 15.5 13.3-17.7 G/DL Hematocrit 46 40-54 % Mean Corpuscular Volume 91 80-99 FL Mean Corpuscular Hemoglobin 31 25-34 PG Mean Corpuscular Hemoglobin Concent 34 32-36 G/DL Red Cell Distribution Width 14.4 10.0-14.5 % Platelet Count 177 130-400 10^3/uL Mean Platelet Volume 10.5 H 7.4-10.4 FL Neutrophils (%) (Auto) 62 42-75 % Lymphocytes (%) (Auto) 24 12-44 % Monocytes (%) (Auto) 10 0-12 % Eosinophils (%) (Auto) 3 0-10 % Basophils (%) (Auto) 1 0-10 % Neutrophils # (Auto) 5.0 1.8-7.8 X 10^3 Lymphocytes # (Auto) 1.9 1.0-4.0 X 10^3 Monocytes # (Auto) 0.8 0.0-1.0 X 10^3 Eosinophils # (Auto) 0.2 0.0-0.3 10^3/uL Basophils # (Auto) 0.1 0.0-0.1 10^3/uL Prothrombin Time 12.4 12.2-14.7 SEC INR Comment 0.9 0.8-1.4 Activated Partial Thromboplast Time 28 24-35 SEC Sodium Level 142 135-145 MMOL/L Potassium Level 3.8 3.6-5.0 MMOL/L Chloride Level 112 H 98-107 MMOL/L Carbon Dioxide Level 22 21-32 MMOL/L Anion Gap 8 5-14 MMOL/L Blood Urea Nitrogen 17 7-18 MG/DL Creatinine 1.38 H 0.60-1.30 MG/DL Estimat Glomerular Filtration Rate 55 BUN/Creatinine Ratio 12 Glucose Level 106 H 70-105 MG/DL Calcium Level 9.3 8.5-10.1 MG/DL Magnesium Level 2.2 1.8-2.4 MG/DL Total Bilirubin 0.3 0.1-1.0 MG/DL Aspartate Amino Transf (AST/SGOT) 26 5-34 U/L Alanine Aminotransferase (ALT/SGPT) 32 0-55 U/L Alkaline Phosphatase 54 40-136 U/L Myoglobin 71.6 10.0-92.0 NG/ML Troponin I < 0.30 <0.30 NG/ML B-Type Natriuretic Peptide < 10.0 <100.0 PG/ML Total Protein 7.1 6.4-8.2 GM/DL Albumin 4.4 3.2-4.5 GM/DL Lipase 33 8-78 U/L My Orders Orders - VANESSA,SALTY J Cbc With Automated Diff (07/03/17 18:) Magnesium (07/03/17 18:) Chest 1 View, Ap/Pa Only (07/03/17) Ekg Tracing (07/03/17 18:) Cardiac Profile 1 (07/03/17 18:) Comprehensive Metabolic Panel (07/03/17 18:) Myoglobin Serum (07/03/17:) Protime With Inr (07/03/17) Partial Thromboplastin Time (07/03/17 18:) O2 (07/03/17 18:) Monitor-Rhythm Ecg Trace Only (07/03/17) Lipid Panel (07/04/17 06:00) Aspirin Chewable Tablet (Baby Aspirin Ch (07/03/17 18:30) Nitroglycerin 0.4 Mg Btl 25's (Nitrostat (07/03/17 18:) Saline Lock/Iv-Start (07/03/17:) Lipase (07/03/17:) BNP (07/03/17:) Drug Screen Stat (Urine) (07/03/17 19:33) Clopidogrel Tablet (Plavix Tablet) (07/03/17 20:00) Enoxaparin Injection (Lovenox Injection) (07/03/17 20:00) Medications Given in ED Current Medications Medications Dose Ordered Sig/Saba Route Start Time Stop Time Status Last Admin Dose Admin Aspirin 324 mg ONCE ONCE PO 07/03/17 18:30 07/03/17 18:31 DC 07/03/17 18:54 324 MG Nitroglycerin 0.4 mg UD PRN SL 07/03/17 18:30 07/03/17 18:55 0.4 MG Vital Signs/I&O 07/03/17 18:25 Temp 98.1 Pulse 105 Resp 20 B/P (MAP) 145/95 (112) O2 Delivery Room Air Progress Progress Note : Time: 18:33 Progress Note 17 points on the ED ACS scale. Not low risk. This patient is not a candidate for early discharge and should receive a standard chest pain evaluation with delayed troponin testing. We'll give him 324 milligrams of aspirin to chew up, nitroglycerin and reassess his response. Initial EKG is unremarkable. Cardiac catheterization [address] العلي. Normal coronary and vena graphic method. Normal left ventricular systolic function. Normal thoracic aortogram. Elevated left ventricular diastolic pressure. Also normal ventricular function. 2-D transthoracic echocardiogram by Dr. العلي 2010: Normal dimensions the heart. Normal left ventricular systolic function and EF of 50%. Mild diastolic dysfunction of the left ventricle. No significant Doppler color flow abnormality. Initial ECG Impression Date: July 03, 2017 Initial ECG Impression Time: 18:25 Initial ECG Rate: 103 Initial ECG Rhythm: S.Tach Initial ECG Intervals: Normal Initial ECG Impression: Normal, Nonspecific Changes Initial ECG Comparisson: Unchanged Comment Sinus tachycardia without ST-T wave elevation or depression. Diagnostic Imaging Diagonstic Imaging: Xray Plain Films/CT/US/NM/MRI: chest (1v) Comments NAME: DREW HILL MED REC#: [id number] PHYSICIAN: SALTY MENDEZ MD CC: JOSHUA BORREGO MD; SALTY MENDEZ Page 1 of 1 RADIOLOGY REPORT VIA [facility], [facility]. [place], [place] CC: JOSHUA BORREGO MD; SALTY MENDEZ Page 1 of 1 RADIOLOGY REPORT NAME: JAMIEFRANKDREW Saúl MED REC#: [id number] PT STATUS: REG ER : 1970 PHYSICIAN: SALTY MENDEZ MD ADMIT DATE: 07/03/17/ER Signed Date of Exam: 07/03/17 CHEST 1 VIEW, AP/PA ONLY INDICATION: Chest pain and dizziness. COMPARISON: 04/27/2017. FINDINGS: Portable chest shows mild cardiac enlargement. The lungs are well aerated and clear. There is no evidence of pulmonary edema. No pleural effusions. No pneumothorax. No bony abnormalities. IMPRESSION: Heart size upper limits of normal with no findings to indicate congestive failure. Dictated by: Dictated on workstation # [id number] Dict: 07/03/171899 Trans: 07/03/171918 Interpreted by: JOSHUA BORREGO MD Electronically signed by: JOSHUA BORREGO MD 07/03/171918 Reviewed: Reviewed by Or Departure Communication (Admissions) Time/Spoke to Admitting Phy: 19:41 Discussed case lab imaging EKG and findings with Dr. Mauro Time/Spoke to Consulting Phy: 19:41 Discussed the case lab imaging EKG and findings with Dr. Bauman. He wants a 2-D echocardiogram in the morning. He wants serial troponins and give Plavix 300 mg now as well as a first dose of Lovenox but hold the Lovenox in the morning. Write for the nurses to order a nuclear stress test if serial troponins are negative or if serial troponins are positive order cardiac catheterization and he'll see the patient. Impression Primary Impression: Chest pain Qualified Codes: R07.9 - Chest pain, unspecified Disposition: ADMITTED INPATIENT Condition: Stable Admissions Decision to Admit Reason: Admit from ER (General) Decision to Admit/Date: July 03, 2017 Time/Decision to Admit Time: 19:51 Departure-Patient Inst. Referrals: NO,LOCAL PHYSICIAN (PCP) Primary Care Physician Copy Copies To 1: Caron BAUMAN MD, TITUS J July 03, 2017 18:36
[2017-07-03 18:46] LABS: BASOPHILS # (AUTO) 0.1 10^3/uL (0.0-0.1); BASOPHILS % (AUTO) 1 % (0-10); EOSINOPHILS # (AUTO) 0.2 10^3/uL (0.0-0.3); EOSINOPHILS % (AUTO) 3 % (0-10); HEMATOCRIT 46 % (40-54); HEMOGLOBIN 15.5 G/DL (13.3-17.7); LYMPHOCYTES # (AUTO) 1.9 X 10^3 (1.0-4.0); LYMPHOCYTES % (AUTO) 24 % (12-44); MEAN CORPUSCULAR HEMOGLOBIN 31 PG (25-34); MEAN CORPUSCULAR HGB CONC 34 G/DL (32-36); MEAN CORPUSCULAR VOLUME 91 FL (80-99); MEAN PLATELET VOLUME 10.5 FL (7.4-10.4); MONOCYTES # (AUTO) 0.8 X 10^3 (0.0-1.0); MONOCYTES % (AUTO) 10 % (0-12); NEUTROPHILS % (AUTO) 62 % (42-75); PLATELET COUNT 177 10^3/uL (130-400); RED BLOOD COUNT 5.01 10^6/uL (4.35-5.85); RED CELL DISTRIBUTION WIDTH 14.4 % (10.0-14.5)
[2017-07-03 19:02] LABS: INR 0.9 (0.8-1.4); PROTHROMBIN TIME PATIENT 12.4 SEC (12.2-14.7)
--- NOTE | 2017-07-03 19:07 | Diagnostic Imaging Report ---
INDICATION: Chest pain and dizziness. COMPARISON: 04/27/2017. FINDINGS: Portable chest shows mild cardiac enlargement. The lungs are well aerated and clear. There is no evidence of pulmonary edema. No pleural effusions. No pneumothorax. No bony abnormalities. IMPRESSION: Heart size upper limits of normal with no findings to indicate congestive failure. Dictated by: Dictated on workstation # [id number]
[2017-07-03 19:08] LABS: ALANINE AMINOTRANSFERASE 32 U/L (0-55); ALBUMIN 4.4 GM/DL (3.2-4.5); ALKALINE PHOSPHATASE 54 U/L (40-136); BILIRUBIN,TOTAL 0.3 MG/DL (0.1-1.0); BUN/CREATININE RATIO 12; CALCIUM 9.3 MG/DL (8.5-10.1); CARBON DIOXIDE 22 MMOL/L (21-32); CHLORIDE 112 MMOL/L (98-107); CREATININE SERUM 1.38 MG/DL (0.60-1.30); GFR ESTIMATED 55; GLUCOSE 106 MG/DL (70-105); LIPASE 33 U/L (8-78); MAGNESIUM 2.2 MG/DL (1.8-2.4); POTASSIUM 3.8 MMOL/L (3.6-5.0); SODIUM 142 MMOL/L (135-145); TOTAL PROTEIN 7.1 GM/DL (6.4-8.2)
[2017-07-03 19:15] LABS: MYOGLOBIN SERUM 71.6 NG/ML (10.0-92.0)
[2017-07-03] MEDS ORDERED: CLOPIDOGREL 300 MG (PLAVIX) TABLET PO ONE (20:00)
[2017-07-03] MEDS ORDERED: ENOXAPARIN 80 MG/0.8 ML (LOVENOX) SYR SC ONE (20:00)
[2017-07-03 20:02] LABS: AMPHETAMINE SCREEN, URINE NEGATIVE (NEGATIVE); BARBITURATE SCREEN URINE NEGATIVE (NEGATIVE); BENZODIAZEPINES SCREEN URINE NEGATIVE (NEGATIVE); CANNABINOID SCREEN, URINE NEGATIVE (NEGATIVE); COCAINE SCREEN URINE NEGATIVE (NEGATIVE); METHADONE STAT NEGATIVE (NEGATIVE); METHAMPHETAMINE SCREEN URINE S NEGATIVE (NEGATIVE); OPIATE SCREEN URINE NEGATIVE (NEGATIVE); OXYCODONE STAT NEGATIVE (NEGATIVE); PROPOXYPHENE STAT NEGATIVE (NEGATIVE); TRICYCLIC ANTIDEPRESSANTS SCRE POSITIVE (NEGATIVE)
--- OUTSIDE RECORDS SUMMARY | 2017-07-03 21:50 | XMS REPORT | Clinical Summary ---
Author Author [facility] Organization [facility] Address Unknown Phone Unavailable Care Team Providers Care Relay Man Name Role Phone Carey Boland RN Unavailable Unavailable Self, Referral PCP Unavailable Renny Eisenberg MD Unavailable Source Comments Some departments are not documenting in the electronic medical record. If you do not see the information that you expected, contact Release of Information in the Health Information Management department at [phone] for further assistance in locating additional records.[facility] Allergies No Known Allergies Current Medications [...]
--- OUTSIDE RECORDS SUMMARY | 2017-07-03 21:53 | XMS REPORT | Continuity of Care Document ---
Author Author [facility] Organization [facility] Address Unknown Phone Unavailable Allergies Active Description Code Type Severity Reaction Onset Reported/Identified Relationship to Patient Clinical Status Yes NO KNOWN DRUG ALLERGIES UNKNOWN NO KNOWN DRUG ALLERG Yes No Known Drug Allergies [id number] Drug Allergy Unknown N/A 12/31/2010 Medications Medication [...] NICOTINE DEPENDENCE, CIGARETTES, UNCOMPL 10/09/2015 LOGAN KANG ROD WELDER Ot K76.0 FATTY (CHANGE OF) LIVER, NOT [...] DIANE DO, KRISTIAN K Ot Z79.899 OTHER [facility] (CURRENT) DRUG THERAPY 01/29/2016 DIANE DO, KRISTIAN [...] DIANE DO, KRISTIAN K Ot Z79.899 OTHER [facility] (CURRENT) DRUG THERAPY 01/30/2016 DIANE DO, KRISTIAN [...] DIANE DO, KRISTIAN K Ot Z79.899 OTHER DEVULCANIZER OPERATOR (CURRENT) DRUG THERAPY 05/28/2016 NITHIN HALL Ot [...] PAIN 05/28/2016 NITHIN HALL Ot Z79.899 OTHER [facility] (CURRENT) DRUG THERAPY 05/29/2016 NITHIN HALL Ot [...] PAIN 05/29/2016 NITHIN HALL Ot Z79.899 OTHER DEVULCANIZER OPERATOR (CURRENT) DRUG THERAPY 05/30/2016 NITHIN HALL Ot [...] PAIN 05/30/2016 NITHIN HALL Ot Z79.899 OTHER DEVULCANIZER OPERATOR (CURRENT) DRUG THERAPY 06/03/2016 NITHIN HALL Ot [...] PAIN 06/03/2016 NITHIN HALL Ot Z79.899 OTHER [facility] (CURRENT) DRUG THERAPY 10/12/2016 NITHIN HALL Ot [...] Ot F41.9 ANXIETY DISORDER, UNSPECIFIED 10/16/2016 LOGAN KANG APRN Ot G47.30 SLEEP APNEA, UNSPECIFIED 10/16/2016 LOGAN KANG APRN Ot G89.29 OTHER CHRONIC PAIN 10/16/2016 [...] G89.29 OTHER CHRONIC PAIN 10/18/2016 LOGAN KANG ROD WELDER Ot I10 ESSENTIAL (PRIMARY) HYPERTENSION 10/18/2016 LOGAN KANG ROD WELDER Ot J20.9 ACUTE BRONCHITIS, UNSPECIFIED 10/18/2016 LOGAN KANG ROD WELDER Ot J44.0 CHRONIC OBSTRUCTIVE PULMON DISEASE W ACU 10/18/2016 LOGAN KANG ROD WELDER Ot M19.90 UNSPECIFIED OSTEOARTHRITIS, UNSPECIFIED 10/18/2016 LOGAN [...] ADULT 04/27/2017 KRISTIAN CONTRERAS DO Ot Z79.52 DEVULCANIZER OPERATOR (CURRENT) USE OF SYSTEMIC STER 04/27/2017 KRISTIAN [...] Ot F17.210 NICOTINE DEPENDENCE, CIGARETTES, UNCOMPL 04/29/2017 KRISTIAN CONTRERAS DO Ot F31.9 BIPOLAR DISORDER, UNSPECIFIED [...] ADULT 04/29/2017 KRISTIAN CONTRERAS DO Ot Z79.52 DEVULCANIZER OPERATOR (CURRENT) USE OF SYSTEMIC STER 04/29/2017 KRISTIAN [...] INFLUENZA A AND B ANTIGENS BY IA [facility] Comprehensive metabolic panel - 01/27/16 00:08 Serum [...] or plasma urea nitrogen/creatinine mass ratio 12 [facility] Serum or plasma creatinine measurement with calculation [...] culture - 10/13/16 01:14 Bacterial urine culture [id number] NRG COLONY COUNT <10,000 NRG Complete blood [...] culture - 03/20/17 12:21 Bacterial urine culture [id number] NRG COLONY COUNT >100,000/ML NRG FTX;REPORTABLE SENSITIVITY [...] urine sediment by light microscopy FEW NRG Complete blood count (CBC) with automated white blood cell (WBC) differential - 07/03/17 18:40 Blood leukocytes automated count (number/volume) 8.0 10*3/uL 4.3-11.0 Blood erythrocytes automated count (number/volume) 5.01 10*6/uL 4.35-5.85 Venous blood hemoglobin measurement (mass/volume) 15.5 g/dL 13.3-17.7 Blood hematocrit (volume fraction) 46 % 40-54 Automated erythrocyte mean corpuscular volume 91 [foz_us] 80-99 Automated erythrocyte mean corpuscular hemoglobin (mass per erythrocyte) 31 pg 25-34 Automated erythrocyte mean corpuscular hemoglobin concentration measurement ( mass/volume) 34 g/dL 32-36 Automated erythrocyte distribution width ratio 14.4 % 10.0-14.5 Automated blood platelet count (count/volume) 177 10*3/uL 130-400 Automated blood platelet mean volume measurement 10.5 [foz_us] 7.4-10.4 Automated blood neutrophils/100 leukocytes 62 % 42-75 Automated blood lymphocytes/100 leukocytes 24 % 12-44 Blood monocytes/100 leukocytes 10 % 0-12 Automated blood eosinophils/100 leukocytes 3 % 0-10 Automated blood basophils/100 leukocytes 1 % 0-10 Blood neutrophils automated count (number/volume) 5.0 10*3 1.8-7.8 Blood lymphocytes automated count (number/volume) 1.9 10*3 1.0-4.0 Blood monocytes automated count (number/volume) 0.8 10*3 0.0-1.0 Automated eosinophil count 0.2 10*3/uL 0.0-0.3 Automated blood basophil count (count/volume) 0.1 10*3/uL 0.0-0.1 PT panel in platelet poor plasma by coagulation assay - 07/03/17 18:40 Prothrombin time (PT) in platelet poor plasma by coagulation assay 12.4 s 12.2-14.7 INR in platelet poor plasma or blood by coagulation assay 0.9 0.8-1.4 Activated partial thromboplastin time (aPTT) in platelet poor plasma bycoagulation assay - 07/03/17 18:40 Activated partial thromboplastin time (aPTT) in platelet poor plasma bycoagulation assay 28 s 24-35 Comprehensive metabolic panel - 07/03/17 18:40 Serum or plasma sodium measurement (moles/volume) 142 mmol/L 135-145 Serum or plasma potassium measurement (moles/volume) 3.8 mmol/L 3.6-5.0 Serum or plasma chloride measurement (moles/volume) 112 mmol/L 98-107 Carbon dioxide 22 mmol/L 21-32 Serum or plasma anion gap determination (moles/volume) 8 mmol/L 5-14 Serum or plasma urea nitrogen measurement (mass/volume) 17 mg/dL 7-18 Serum or plasma creatinine measurement (mass/volume) 1.38 mg/dL 0.60-1.30 Serum or plasma urea nitrogen/creatinine mass ratio 12 NRG Serum or plasma creatinine measurement with calculation of estimated glomerular filtration rate 55 NRG Serum or plasma glucose measurement (mass/volume) 106 mg/dL 70-105 Serum or plasma calcium measurement (mass/volume) 9.3 mg/dL 8.5-10.1 Serum or plasma total bilirubin measurement (mass/volume) 0.3 mg/dL 0.1-1.0 Serum or plasma alkaline phosphatase measurement (enzymatic activity/volume) 54 U/L 40-136 Serum or plasma aspartate aminotransferase measurement (enzymatic activity/ volume) 26 U/L 5-34 Serum or plasma alanine aminotransferase measurement (enzymatic activity/volume ) 32 U/L 0-55 Serum or plasma protein measurement (mass/volume) 7.1 g/dL 6.4-8.2 Serum or plasma albumin measurement (mass/volume) 4.4 g/dL 3.2-4.5 Magnesium - 07/03/17 18:40 Magnesium 2.2 mg/dL 1.8-2.4 Serum or plasma troponin i.cardiac measurement (mass/volume) - 07/03/17 18:40 Serum or plasma troponin i.cardiac measurement (mass/volume) < ng/ mL <0.30 Myoglobin, serum - 07/03/17 18:40 Myoglobin, serum 71.6 ng/mL 10.0-92.0 Serum or plasma lithium measurement (moles/volume) - 07/03/17 18:40 BNP level < pg/mL <100.0 Lipase - 07/03/17 18:40 Lipase 33 U/L 8-78 Urine drug screening test - 07/03/17 19:45 Urine phencyclidine detection by screening method NEGATIVE [...] NEGATIVE NEGATIVE Urine propoxyphene detection NEGATIVE NEGATIVE Encounters ACCT No. Visit Date/Time Discharge Status Pt. Type Provider Facility Loc./Unit Complaint [id number] 04/28/2017 12:56:00 04/28/2017 23:59:59 CLS Outpatient JOANNE LENNON, [facility] [place] (DDU) [facility] RT BREATHING PROBLEMS [id number] 04/27/2017 18:03:00 04/27/2017 20:03:00 DIS Emergency DIANE DOKRISTIAN [facility] ER INTERMITTENT CP [id number] 03/20/2017 09:45:00 03/20/2017 13:57:00 DIS Emergency DIANE DO KRISTIAN K [facility] ER CP AND R ARM PAIN [id number] 03/16/2017 17:24:00 03/16/2017 18:51:00 DIS Emergency RUDY BARRETO MD [facility] ER R ARM PAIN/HX OF TIA [id number] 10/16/2016 16:32:00 10/16/2016 18:04:00 DIS Emergency LOGAN KANG APRN [facility] ER DIZZINESS,NOSE BLEED [id number] 10/12/2016 23:24:00 10/13/2016 02:12:00 DIS Emergency SALTY MENDEZ MD [facility] ER BP [id number] 10/12/2016 12:42:00 10/12/2016 15:42:00 DIS Emergency NITHIN HALL [facility] ER DENTAL PAIN/SWELLING POSS INFECTION [id number] 05/28/2016 20:30:00 05/28/2016 23:11:00 DIS Emergency NITHIN HALL [facility] ER R SIDE PAIN [id number] 01/26/2016 23:11:00 01/27/2016 01:20:00 DIS Emergency DIANE DO KRISTIAN K [facility] ER CP,SOB,CONGESTION [id number] 12/11/2015 16:04:00 12/11/2015 17:15:00 DIS Emergency ELIZABETHKIT SALAZAR DO [facility] ER ABD PAIN [id number] 10/07/2015 17:30:00 10/07/2015 20:45:00 DIS Emergency LOGAN KANG APRN [facility] ER CHEST PAIN/SOA [id number] 09/30/2015 13:50:00 09/30/2015 14:24:00 DIS Emergency LOGAN KANG ROD WELDER [facility] ER DENTAL PAIN [id number] 01/15/2015 21:30:00 01/15/2015 23:27:00 DIS Emergency NITHIN HALL [facility] ER BACK PAIN [id number] 10/25/2014 13:37:00 10/25/2014 23:59:59 CLS Outpatient LINO GONZALES MD [facility] RAD STONES [id number] 10/04/2014 07:51:00 10/04/2014 16:10:00 DIS Outpatient LINO GONZALES MD [facility] SDC LEFT RENAL STONE [id number] 09/27/2014 05:58:00 09/27/2014 23:59:59 CLS Outpatient LINO GONZALES MD [facility] PREOP LEFT RENAL STONE [id number] 10/18/2013 19:39:00 10/18/2013 21:28:00 DIS Emergency KIT JOHNSON DO [facility] ER CHEST PAIN, R ARM PAIN [id number] 09/04/2013 19:34:00 09/04/2013 22:38:00 DIS Emergency DONN MARSH MD [facility] ER LEFT SIDE PAIN [id number] 08/06/2013 08:09:00 08/06/2013 23:59:59 CLS Outpatient LINO GONZALES MD [facility] RAD RLQ PAIN, HX OF STONES [id number] 08/05/2013 13:42:00 08/05/2013 23:59:59 CLS Outpatient LINO GONZALES MD [facility] RAD STONE [id number] 10/17/2012 11:17:00 10/17/2012 23:59:59 CLS Outpatient [id number] 07/03/2017 18:47:00 Document Registration [id number] 10/26/2011 15:47:00 Document Registration [id number] 12/31/2010 19:20:00 Document Registration [id number] 10/26/2014 06:55:12 ACT Document Registration [id number] 05/25/2017 14:45:00 05/25/2017 23:59:59 CLS Outpatient [facility] [id number] 03/13/2017 13:37:00 03/13/2017 15:06:00 DIS Outpatient Pearl [facility] ER [id number] 03/13/2017 13:40:44 Document Registration
[2017-07-03 22:20] VITALS: BP 120/91
[2017-07-03 23:00] VITALS: BP 91/54
[2017-07-03] MEDS ORDERED: ONDANSETRON 4 MG/2 ML (SDV) Z0FRAN IV PRN (23:00)
[2017-07-03] MEDS ORDERED: ACETAMINOPHEN 500 MG TAB (TYLENOL) PO PRN (23:00)
[2017-07-03] MEDS ORDERED: morphine INJ 4 MG/ML 1 ML (VIAL/SYRINGE) IV PRN (23:00)
[2017-07-03 23:15] VITALS: BP 83/42
[2017-07-03 23:30] VITALS: BP 75/45
[2017-07-03 23:45] VITALS: BP 136/86
[2017-07-03 23:55] VITALS: BP 125/80
[2017-07-04] VITALS (14 sets, daily range): BP systolic 112–179; BP diastolic 68–96
[2017-07-04] MEDS ORDERED: RT-ALBUTEROL/IPRATROPIUM 3 ML (DUONEB) VIAL INH PRN (02:00)
[2017-07-04 03:37] LABS: BASOPHILS # (AUTO) 0.1 10^3/uL (0.0-0.1); BASOPHILS % (AUTO) 1 % (0-10); EOSINOPHILS # (AUTO) 0.2 10^3/uL (0.0-0.3); EOSINOPHILS % (AUTO) 3 % (0-10); HEMATOCRIT 45 % (40-54); HEMOGLOBIN 15.2 G/DL (13.3-17.7); LYMPHOCYTES # (AUTO) 1.5 X 10^3 (1.0-4.0); LYMPHOCYTES % (AUTO) 24 % (12-44); MEAN CORPUSCULAR HEMOGLOBIN 31 PG (25-34); MEAN CORPUSCULAR HGB CONC 34 G/DL (32-36); MEAN CORPUSCULAR VOLUME 91 FL (80-99); MEAN PLATELET VOLUME 10.9 FL (7.4-10.4); MONOCYTES # (AUTO) 0.6 X 10^3 (0.0-1.0); MONOCYTES % (AUTO) 11 % (0-12); NEUTROPHILS # (AUTO) 3.8 X 10^3 (1.8-7.8); NEUTROPHILS % (AUTO) 62 % (42-75); PLATELET COUNT 165 10^3/uL (130-400); RED BLOOD COUNT 4.91 10^6/uL (4.35-5.85); RED CELL DISTRIBUTION WIDTH 14.9 % (10.0-14.5); WHITE BLOOD COUNT 6.1 10^3/uL (4.3-11.0)
[2017-07-04 03:56] LABS: ALANINE AMINOTRANSFERASE 32 U/L (0-55); ALBUMIN 4.2 GM/DL (3.2-4.5); ALKALINE PHOSPHATASE 57 U/L (40-136); BILIRUBIN,TOTAL 0.3 MG/DL (0.1-1.0); BUN/CREATININE RATIO 11; CARBON DIOXIDE 19 MMOL/L (21-32); CHLORIDE 109 MMOL/L (98-107); CHOLESTEROL 174 MG/DL (< 200); CREATININE SERUM 1.54 MG/DL (0.60-1.30); GFR ESTIMATED 49; GLUCOSE 119 MG/DL (70-105); HDL CHOLESTEROL 28 MG/DL (40-60); POTASSIUM 3.5 MMOL/L (3.6-5.0); SODIUM 140 MMOL/L (135-145); TOTAL PROTEIN 6.5 GM/DL (6.4-8.2); TRIGLYCERIDES 587 MG/DL (<150); VLDL CHOLESTEROL 117 MG/DL (5-40)
[2017-07-04] MEDS: RT-ALBUTEROL/IPRATROPIUM 3 ML (DUONEB) VIAL INH SCH ×3 (07:06→14:58)
--- NOTE | 2017-07-04 07:56 | Short Stay Summary-Hospitalist ---
History of Present Illness HPI/Chief Complaint Pt is a 46yoCM with a PMH of HTN, NIDDMII, COPD, HLD, and tobacco abuse who presents to the ER with CC of chest pain and dizziness. He states that his symptoms started at rest at 1730 last night. He will occasionally have chest pain with exertion but it resolves with rest. His symptoms resolved with Nitro in the ER. He also felt SOB. He denies any radiation of pain, nausea, vomiting, or diaphoresis. He describes the pain as a burning on the right side of his chest. He denies any current pain. Source: patient Exam Limitations: no limitations Date Seen 07/04/17 Time Seen by Provider: 07:53 Attending Physician Gerardo Mauro MD PCP No,Local Physician Referring Physician Date of Admission July 03, 2017 at 9:35 pm Home Medications & Allergies Home Medications Reviewed patient Home Medication Reconciliation performed by pharmacy medication reconciliations payroll technician and/or nursing. Patients Allergies have been reviewed. Allergies Allergies Coded Allergies No Known Drug Allergies (Qedrpzinxk89/31/11) Past Cqwjchl-Epbtpn-Kgmyfg Hx Past Med/Social Hx: Reviewed Nursing Past Med/Soc Hx Patient Social History Alcohol Use: Rarely Uses Number of Drinks Today: 0 Alcohol Beverage of Choice: Beer Recreational Drug Use: No Drug of Choice: Hx of SPEED, COCAINE usage Smoking Status: Current Everyday Smoker Type Used: Cigarettes Physical Abuse Screen: No Sexual Abuse: No Recent Foreign Travel: No Contact w/other who traveled: No Recent Hopitalizations: Yes Recent Infectious Disease Expo: No Immunizations Up To Date Tetanus Booster (TDap): Unknown Pediatric: No Date of Influenza Vaccine: Dec 01, 2013 Seasonal Allergies Seasonal Allergies: No Past Medical History Surgeries: Gallbladder, Orthopedic, Renal Currently Using CPAP: Yes Currently Using BIPAP: No Cardiac: High Cholesterol, Hypertension Reproductive: No Sexually Transmitted Disease: No HIV/AIDS: No Genitourinary: Kidney Stones Gastrointestinal: Colitis, Gastroesophageal Reflux, Gall Bladder Disease Musculoskeletal: Arthritis, Chronic Back Pain Endocrine: Diabetes, Non-Insulin dep Are Your Blood Sugars Over 250: No Psychosocial: Anxiety, Bipolar, Depression History of Blood Disorders: No Adverse Reaction to Blood Cobb: No Family History DVT 19 MOTHER, , Onset:Unknown Diabetes mellitus 19 MOTHER, , Onset:Unknown G8 BROTHER, Onset:Unknown FH: gastric ulcer 19 FATHER, Onset:Unknown Review of Systems Constitutional: No chills, No fever EENTM: No blurred vision, No double vision, No nose congestion, No throat pain Respiratory: No cough; dyspnea on exertion; No phlegm; short of breath Cardiovascular: chest pain; No edema, No palpitations, No syncope Gastrointestinal: No abdominal pain, No constipation, No diarrhea, No nausea, No vomiting Genitourinary: No dysuria, No frequency Musculoskeletal: No joint pain, No muscle pain Skin: No lesions, No rash Psychiatric/Neurological: Denies Headache, Denies Numbness, Denies Tingling All Other Systems Reviewed Negative Unless Noted: Yes (Negative excepted noted.) Physical Exam Physical Exam Vital Signs Vital Signs - First Documented 07/03/17 07/03/17 18:25 22:05 Temp 98.1 Pulse 105 Resp 20 B/P (MAP) 145/95 (112) Pulse Ox 96 O2 Delivery Room Air Capillary Refill : Less Than 3 Seconds General Appearance: No Apparent Distress, Obese HEENT: PERRL/EOMI, Moist Mucous Membranes; No Scleral Icterus (L), No Scleral Icterus (R) Neck: Normal Inspection, Supple; No JVD, No Thyromegaly Respiratory: Lungs Clear, No Respiratory Distress Cardiovascular: Regular Rate, Rhythm, No Murmur Gastrointestinal: Normal Bowel Sounds, Non Tender, Soft Extremity: Normal Capillary Refill, No Calf Tenderness Neurologic/Psychiatric: Alert, Oriented x3, No Motor/Sensory Deficits, Normal Mood/Affect Skin: Normal Color, Warm/Dry, Tattoos/Piercings Results Results/Procedures Labs Laboratory Tests 07/03/17 18:40 07/04/17 03:12 Patient resulted labs reviewed. Imaging: Reviewed Imaging Report Short Stay Diagnosis Discharge Diagnosis-Short Stay Admission Diagnosis Chest Pain Final Discharge Diagnosis Chest pain Conclusion Plan See below Diagnosis/Problems Diagnosis/Problems (1) Chest pain Status: Acute Assessment & Plan: Received ASA, Plavix, and therapeutic Lovenox in ER Resolved now Stress test abnormal so went for cath which was normal Cardiology consulted appreciate recs Troponins negative Qualifiers: Qualified Codes: R07.9 - Chest pain, unspecified (2) Essential (primary) hypertension Assessment & Plan: Well controlled, monitor (3) Hyperlipidemia Assessment & Plan: LDL above goal for diabetic Triglycerides very high Taking 10mg Lipitor at home, will increase to 40mg Qualifiers: Qualified Codes: E78.2 - Mixed hyperlipidemia (4) Non-insulin dependent type 2 diabetes mellitus Assessment & Plan: Fasting glucose 119 Metformin held for cath (5) COPD (chronic obstructive pulmonary disease) with acute bronchitis Status: Acute Assessment & Plan: Albuterol only inhaler on home med list MAT Protocol Clinical Quality Measures AMI/AHF: ASA po Prior to arrival: Yes DVT/VTE Risk/Contraindication: Risk Factor Score Per Nursin RFS Level Per Nursing on Admit: 4+=Very High Copy Copies To 1: ÁNGEL CASPER MD, KATELYN M MD July 04, 2017 7:56 am
[2017-07-04] MEDS ORDERED: CATHETER FLUSH 10 ML SYR IV PRN (08:00)
[2017-07-04] MEDS ORDERED: toPIRamate 25 MG (TOPAMAX) TAB PO SCH (09:00)
[2017-07-04] MEDS ORDERED: ASPIRIN E.C. 81 MG (ECOTRIN) TAB PO SCH (09:00)
[2017-07-04] MEDS ORDERED: ARIPIPRAZOLE 10 MG (ABILIFY) TAB PO SCH (09:00)
[2017-07-04] MEDS ORDERED: lisINopril 10 MG (PRINIVIL) TABLET PO SCH (09:00)
[2017-07-04] MEDS ORDERED: REGADENOSON 0.4 MG/5 ML SYR (LEXISCAN) IV ONE ×2 (09:22→09:30)
--- NOTE | 2017-07-04 10:38 | Consultation-Cardiology ---
HPI-Cardiology Cardiology Consultation: Date of Consultation 07/04/17 Date of Admission Attending Physician Gerardo Mauro MD Admitting Physician My,Local Physician Consulting Physician Caron BAUMAN MD HPI: Time Seen by Provider: 09:30 Chief Complaint: Chest pain This is a 46-year-old gentleman with past medical history of hypertension, diabetes, COPD, hyperlipidemia and active smoking. He presented to the ER yesterday with complains of chest pain and dizziness. His pain started a day before. His had chest pain episodes in the past as well with exertion. Which improves with rest. The symptoms resolved with nitroglycerin in the ER. He also has some shortness of breath. The chest pain episode was prolonged. Lasted for one to 2 hours. He was substernal with no significant radiation. No exacerbating factors. Relieved by nitroglycerin. No further cardiac symptoms. Review of Systems-Cardiology Review of Systems Constitutional: As described under HPI; No As described under HPI, No no symptoms reported, No chills, No fever, No lightheadedness Eyes: No As described under HPI, No no symptoms reported, No blindness, No blurred vision, No contact lenses, No drainage, No decreased acuity, No foreign body sensation, No pain, No vision change Ears/Nose/Throat: No As described under HPI, No no symptoms reported, No chronic hearing loss, No ear discharge, No ear pain, No nasal drainage, No ulcerations Respiratory: No no symptoms reported; As described under HPI; No As described under HPI, No cough, No orthopnea, No shortness of breath, No SOB with excertion Cardiovascular: No no symptoms reported; As described under HPI; No As described under HPI; chest pain; No edema, No irregular heart rate, No lightheadedness, No palpitations Gastrointestinal: No no symptoms reported, No As described under HPI, No abdomen distended, No abdominal pain, No blood streaked bowels, No constipation , No diarrhea, No nausea, No vomiting, No stool coloration changes Genitourinary: No As described under HPI, No burning, No dysuria, No discharge , No frequency, No flank pain, No hematuria, No urgency Musculoskeletal: No no symptoms reported, No As describe under HPI, No back pain, No gout, No joint pain, No joint swelling, No muscle pain, No muscle stiffness, No neck pain, No other Skin: No no symptoms reported, No As described under HPI, No change in color, No change in hair/nails, No dryness, No lesions, No lumps, No rash, No other, No skin related problems, No ulcerations, No rash on exposed areas, No ulcerations on exposed areas Psychiatric/Neurological: No anxiety, No depression, No seizure, No focal weakness, No syncope Hematologic: No bleeding abnormalities All Other Systems Reviewed Negative Unless Noted: Yes (Negative excepted noted.) ANJ-Zavobr-Frleln Hx Patient Social History Alcohol Use: Rarely Uses Recreational Drug Use: No Drug of Choice: Hx of SPEED, COCAINE usage Smoking Status: Current Everyday Smoker Type Used: Cigarettes Recent Foreign Travel: No Recent Infectious Disease Expo: No Hospitalization with Isolation: Denies Physical Abuse Screen: No Sexual Abuse: No Immunizations Up To Date Tetanus Booster (TDap): Unknown Date of Influenza Vaccine: Dec 01, 2013 Past Medical History PMH As described under Assessment. Family Medical History Family History: DVT 19 MOTHER, , Onset:Unknown Diabetes mellitus 19 MOTHER, , Onset:Unknown G8 BROTHER, Onset:Unknown FH: gastric ulcer 19 FATHER, Onset:Unknown Allergies and Home Medications Allergies Coded Allergies: No Known Drug Allergies (Unverified , 12/31/10) Home Medications Albuterol Sulfate 1 Puff Puff, 2 PUFF IH Q4H PRN for WHEEZING 2 puffs every 4 hours Prescribed by: LOGAN SNELL on 10/16/161753 Amitriptyline HCl 50 Mg Tablet, 50 MG PO HS, (Reported) Amoxicillin 500 Mg Capsule, 1,000 MG PO TID Prescribed by: NITHIN GOODWIN on 10/12/16 1528 Aripiprazole 15 Mg Tab, 20 TAB PO DAILY, (Reported) DAILY Atorvastatin Calcium 10 Mg Tablet, 10 MG PO HS, (Reported) Azithromycin 250 Mg Tablet, 250 MG PO UD TAKE 2 TABLETS ON DAY ONE THEN TAKE 1 TABLET DAILY FOR FOUR MORE DAYS Prescribed by: LOGAN SNELL on 10/16/161753 Bupropion Hcl 100 Mg Tablet, 1 TAB PO TID, (Reported) Ciprofloxacin HCl 500 Mg Tablet, 500 MG PO BID Prescribed by: NITHIN GOODWIN on 05/28/162251 Cyclobenzaprine Hcl 10 Mg Tablet, 1 EACH PO TID PRN for SPASMS, (Reported) Dicyclomine HCl 10 Mg Capsule, 20 MG PO QID, (Reported) Famotidine 20 Mg Tablet, 1 EACH PO BID Prescribed by: KIT JOHNSON on 10/18/132110 Fenofibrate,Micronized 145 Mg Tablet, 145 MG PO DAILY, (Reported) Hydrocodone Bit/Acetaminophen 1 Each Tablet, 1 EACH PO Q6H PRN for PAIN Prescribed by: NITHIN GOODWIN on 01/15/152314 Lisinopril 10 Mg Tablet, 10 MG PO DAILY, (Reported) Meloxicam 15 Mg Tablet, 15 MG PO DAILY Prescribed by: KRISTIAN CONTRERAS on 03/20/17 1310 Meloxicam 15 Mg Tablet, 15 MG PO DAILY Prescribed by: KRISTIAN CONTRERAS on 04/27/171954 Mesalamine 250 Mg Capsule.er, 250 MG PO BID, (Reported) Metoprolol Tartrate 25 Mg Tablet, 25 MG PO BID, (Reported) [place]-3 Acid Ethyl Esters 1 Gm Capsule, 2 G PO BID WITH MEALS, (Reported) Pantoprazole Sodium 40 Mg Tablet.dr, 40 MG PO DAILY, (Reported) Phenazopyridine HCl 200 Mg Tablet, 1 TAB PO Q8H PRN for PAIN Prescribed by: NITHIN GOODWIN on 05/28/162251 Prednisone 20 Mg Tab, 40 MG PO DAILY Prescribed by: LOGAN SNELL on 10/16/16 175 Ropinirole Hcl 2 Mg Tablet, 2 MG PO BID, (Reported) Sucralfate 1 Gm Tab, 1 GM PO UD TAKE BEFORE EACH MEAL AND AT BEDTIME FOR STOMACH Prescribed by: KIT JOHNSON on 10/18/132110 Sulfamethoxazole/Trimethoprim 1 Each Tablet, 1 EACH PO BID Prescribed by: SALTY MENDEZ on 10/13/16 0158 Topiramate 50 Mg Tablet, 50 MG PO HS, (Reported) Patient Home Medication List Home Medication List Reviewed: Yes Physical Exam-Cardiology Physical Exam Vital Signs/I&O 07/03/17 07/03/17 07/03/17 07/03/17 23:15 23:30 23:45 23:55 Pulse 100 98 100 Resp 25 20 24 B/P (MAP) 83/42 (56) 75/45 (55) 136/86 (103) Pulse Ox 95 94 94 93 O2 Delivery Room Air Room Air Room Air NIV CPAP 07/03/17 07/04/17 07/04/17 07/04/17 23:55 01:00 01:43 02:00 Temp 97.4 Pulse 98 93 101 95 Resp 22 23 B/P (MAP) 125/80 (95) 128/88 (101) Pulse Ox 93 93 93 O2 Delivery NIV CPAP NIV CPAP 07/04/17 07/04/17 07/04/17 07/04/17 03:25 03:25 04:00 07:00 Temp 98.2 Pulse 101 92 Resp 27 B/P (MAP) 126/81 (96) Pulse Ox 95 93 O2 Delivery NIV CPAP NIV CPAP 07/04/17 07/04/17 07/04/17 07/04/17 07:06 08:00 08:44 09:29 Temp 97.9 98.0 Pulse 106 Resp 22 B/P (MAP) 112/81 (91) Pulse Ox 96 97 O2 Delivery NIV CPAP Room Air Capillary Refill : Less Than 3 Seconds Constitutional: appears stated age, AAO x 3; No apparent distress; well- developed, well-nourished HEENT: PERRL; No normal ENT inspection, No TMs normal, No pharynx normal, No scleral icterus (R), No scleral icterus (L), No pale conjunctivae (R), No pale conjunctivae (L), No photophobia, No TM abnormal (R), No TM abnormal (L), No pharyngeal erythema, No tonsillar exudate, No other, No discharge, No EOMI; hearing is well preserved; No hard of hearing; oral hygience is good; No ulceration, No xanthelasmas are seen Neck: No non-tender, No full range of motion, No supple, No normal inspection, No carotid bruit, No limited range of motion, No lymphadenopathy (R), No lymphadenopathy (L), No tender lateral, No tender midline, No thyromegaly, No other; carotid pulses are 2 + bilaterally; No with good upstrokes Respiratory: No accessory muscle use, No respiratory distress, No chest tender , No chest expansion is symmetric; chest is bilaterally symmetric; No lungs clear to percussion; lungs clear to auscultation; No crackles, No rhonchi, No rales, No stridor, No wheezing, No pleural rub, No other Cardiovascular: regular rate-rhythm; No irregularly irregular, No extra beats, No parasternal heave is noted, No JVD, No edema, No bradycardia, No tachycardia , No point of maximal impulse, No cardiac thrills are palpable; S1 and S2; No gallop/S3, No gallop/S4, No diastolic murmur, No systolic murmur, No friction rub, No click, No other Gastrointestinal: No tender, No soft, No round, No distended, No pulsatile mass , No organomegaly, No guarding, No rebound, No tenderness, No hernia, No mass, No audible bowel sounds, No abnormal bowel sounds, No abdominal bruits, No spleenomegaly, No other Rectal: deferred Extremities: No normal range of motion, No non-tender, No normal inspection, No pedal edema, No calf tenderness, No normal capillary refill, No pelvis stable , No calf tenderness, No inflammation, No pedal edema, No slow capillary refill , No swelling, No other, No abrasion, No clubbing, No cyanosis, No ecchymosis, No laceration, No no lower extremity edema bilateral, No significant edema, No tenderness, No wound Neurologic/Psychiatric: no motor/sensory deficits, alert, oriented x 3, power is 5/5 both on sides Skin: No normal color, No warm/dry, No cyanosis, No cool, No diaphoresis, No damp, No ecchymosis, No jaundice, No mottled, No pallor, No rash, No tattoos/ piercings, No ulcerations, No rash on exposed areas, No ulcerations on exposed areas, No other Data Review Labs Laboratory Tests 07/03/17 18:40: White Blood Count 8.0, Red Blood Count 5.01, Hemoglobin 15.5, Hematocrit 46, Mean Corpuscular Volume 91, Mean Corpuscular Hemoglobin 31, Mean Corpuscular Hemoglobin Concent 34, Red Cell Distribution Width 14.4, Platelet Count 177, Mean Platelet Volume 10.5H, Neutrophils (%) (Auto) 62, Lymphocytes (%) (Auto) 24 , Monocytes (%) (Auto) 10, Eosinophils (%) (Auto) 3, Basophils (%) (Auto) 1, Neutrophils # (Auto) 5.0, Lymphocytes # (Auto) 1.9, Monocytes # (Auto) 0.8, Eosinophils # (Auto) 0.2, Basophils # (Auto) 0.1, Prothrombin Time 12.4, INR Comment 0.9, Activated Partial Thromboplast Time 28, Sodium Level 142, Potassium Level 3.8, Chloride Level 112H, Carbon Dioxide Level 22, Anion Gap 8, Blood Urea Nitrogen 17, Creatinine 1.38H, Estimat Glomerular Filtration Rate 55 , BUN/Creatinine Ratio 12, Glucose Level 106H, Calcium Level 9.3, Magnesium Level 2.2, Total Bilirubin 0.3, Aspartate Amino Transf (AST/SGOT) 26, Alanine Aminotransferase (ALT/SGPT) 32, Alkaline Phosphatase 54, Myoglobin 71.6, Troponin I < 0.30, B-Type Natriuretic Peptide < 10.0, Total Protein 7.1, Albumin 4.4, Lipase 33 07/03/17 19:45: Urine Opiates Screen NEGATIVE, Urine Oxycodone Screen NEGATIVE, Urine Methadone Screen NEGATIVE, Urine Propoxyphene Screen NEGATIVE, Urine Barbiturates Screen NEGATIVE, Ur Tricyclic Antidepressants Screen POSITIVEH, Urine Phencyclidine Screen NEGATIVE, Urine Amphetamines Screen NEGATIVE, Urine Methamphetamines Screen NEGATIVE, Urine Benzodiazepines Screen NEGATIVE, Urine Cocaine Screen NEGATIVE, Urine Cannabinoids Screen NEGATIVE 07/04/17 00:38: Troponin I < 0.30 07/04/17 03:12: White Blood Count 6.1, Red Blood Count 4.91, Hemoglobin 15.2, Hematocrit 45, Mean Corpuscular Volume 91, Mean Corpuscular Hemoglobin 31, Mean Corpuscular Hemoglobin Concent 34, Red Cell Distribution Width 14.9H, Platelet Count 165, Mean Platelet Volume 10.9H, Neutrophils (%) (Auto) 62, Lymphocytes (%) (Auto) 24 , Monocytes (%) (Auto) 11, Eosinophils (%) (Auto) 3, Basophils (%) (Auto) 1, Neutrophils # (Auto) 3.8, Lymphocytes # (Auto) 1.5, Monocytes # (Auto) 0.6, Eosinophils # (Auto) 0.2, Basophils # (Auto) 0.1, Sodium Level 140, Potassium Level 3.5L, Chloride Level 109H, Carbon Dioxide Level 19L, Anion Gap 12, Blood Urea Nitrogen 17, Creatinine 1.54H, Estimat Glomerular Filtration Rate 49, BUN/ Creatinine Ratio 11, Glucose Level 119H, Calcium Level 9.0, Total Bilirubin 0.3 , Aspartate Amino Transf (AST/SGOT) 27, Alanine Aminotransferase (ALT/SGPT) 32, Alkaline Phosphatase 57, Troponin I < 0.30, Total Protein 6.5, Albumin 4.2, Triglycerides Level 587H, Cholesterol Level 174, LDL Cholesterol Direct 92, VLDL Cholesterol 117H, HDL Cholesterol 28L 07/04/17 06:35: Troponin I < 0.30 ECG Impression ECG Initial ECG Rhythm: Normal Sinus Initial ECG Impression: Nonspecific Changes A/P-Cardiology Assessment/Admission Diagnosis Prolonged episode of chest pain, Hypertension, Diabetes, Hyperlipidemia, Acute kidney injury Plan Unstable angina. Serial troponin is negative. Was given aspirin and Plavix in the ER. Pharmacological stress test today. If abnormal will recommend coronary angiography. Echocardiogram pending. Hypertension: Continue outpatient hypertension medications. Hyperlipidemia: Start Lipitor 40 mg daily. Diabetes: Continue outpatient oral hypoglycemics. Morbid obesity: Diet and exercise will be recommended. Complex patient with more than 2 chronic conditions requiring attention. Acute kidney injury: Will arrange for nephrology follow-up as an outpatient. Thank you for your consultation. Please call me if you have any questions. Jaison Bauman MD, FACP, FACC, FSCAI, FHRS, CCDS Interventional Cardiology Cardiac Electrophysiology Vascular Medicine and Endovascular Interventions Clinical Quality Measures AMI/AHF: ASA po Prior to arrival: Yes DVT/VTE Risk/Contraindication: Risk Factor Score Per Nursin RFS Level Per Nursing on Admit: 4+=Very High Caron BAUMAN MD July 04, 2017 10:38
[2017-07-04] MEDS ORDERED: METF500T5 PO (11:07)
[2017-07-04] MEDS ORDERED: LOPE2CAP PO (11:08)
[2017-07-04] MEDS ORDERED: ASPI-586 PO (11:10)
[2017-07-04] MEDS ORDERED: MESA1.2T3 PO (11:10)
[2017-07-04] MEDS ORDERED: BUPR100T15 PO ×2 (11:11→11:12)
[2017-07-04] MEDS ORDERED: MULT-974 PO (11:12)
[2017-07-04] MEDS ORDERED: TOPI200T8 PO (11:13)
[2017-07-04] MEDS ORDERED: DICY10CA12 PO (11:14)
[2017-07-04] MEDS ORDERED: HYDR-3820 PO (11:16)
[2017-07-04] MEDS ORDERED: ARIP20TA9 PO (11:17)
[2017-07-04] MEDS ORDERED: DICL100T3 PO (11:18)
[2017-07-04] MEDS ORDERED: FAMO20TA3 PO (11:19)
[2017-07-04] MEDS ORDERED: ROPI4TAB3 PO (11:19)
[2017-07-04] MEDS ORDERED: GABA-488 PO (11:20)
[2017-07-04] MEDS ORDERED: METO50TA15 PO (11:21)
[2017-07-04] MEDS ORDERED: HYOS-20 PO (11:22)
[2017-07-04] MEDS ORDERED: L.AC1CAP6 PO (11:23)
[2017-07-04] MEDS ORDERED: ACET-93 PO (11:24)
[2017-07-04] MEDS ORDERED: ACET-575 PO (11:25)
[2017-07-04] MEDS ORDERED: FLUT1DIS28 IH (11:29)
[2017-07-04] MEDS ORDERED: NS IV 1000 ML 3,000 ML ONE (12:59)
[2017-07-04] MEDS ORDERED: LIDOCAINE 1% INJ 20 ML 20 ML VIAL ONE (12:59)
[2017-07-04] MEDS ORDERED: HEParin 1000 UNIT/ML (10ML VIAL) FOR BOLUS ONE (13:00)
[2017-07-04] MEDS ORDERED: fentaNYL INJECTION 100 MCG/2 ML AMP ONE (13:04)
[2017-07-04] MEDS ORDERED: MIDAZOLAM 5 MG/5 ML (VERSED) VIAL ONE (13:04)
[2017-07-04] MEDS ORDERED: NITRO DRIP 25000 MCG/D5W 250 ML IV ONE (13:40)
[2017-07-04] MEDS ORDERED: VERAPAMIL 5 MG/2 ML (CALAN) VIAL IV ONE (13:40)
--- NOTE | 2017-07-04 13:52 | Cardiology Stress Test Report ---
Stress Test Report Type of NM Stress Test: Test Type: LEXISCAN 0.4MG/5ML Date of Procedure/Referring: Date of Procedure: July 04, 2017 PCP Gerardo Mauro MD Admitting Physician No,Local Physician Indications: Chest pain Baseline Heart Rate: 79 Baseline Blood Pressure: Blood Pressure Systolic: 140 Blood Pressure Diastolic: 61 Baseline EKG: Baseline EKG: sinus rhythm Summary: The patient was brought to the stress lab of informed consent was taken. Stress test was performed according to the protocol. Lexiscan 0.4 mg IV was given. Low-grade exercise was performed. Baseline EKG showed sinus rhythm at 79 bpm and blood pressure 140/61 mmHg. Maximum heart rate of 85 bpm and blood pressure 210/93 mmHg. Patient did not have any chest pain, EKG changes or arrhythmias noted during the stress test. 10.68 mCi of Myoview was given for rest imaging and 31.8 mCi of Myoview were given for stress imaging. EF 75 percent. Transient ischemic dilatation score of 1.08. Poor nuclear images due to significant motion artifact. However there is likely inferior apical reversible defect. Conclusion: Severe hypertension. Normal LV function. Significant motion artifact however there is likely an inferior apical reversible defect. Coronary angiography is recommended. Caron MAURER MD July 04, 2017 1:52 pm
--- NOTE | 2017-07-04 13:55 | Cardiac Procedure Note-CS/ASA ---
Pre-Procedure Note Pre-Op Procedure Note H&P Reviewed The H&P was reviewed, patient examined and no changes noted. Date H&P Reviewed: July 04, 2017 Time H&P Reviewed: 13:55 Conscious Sedation Pre-Proced Time Reviewed: 13:55 ASA Class: 3 Airway Mallampati Classification: ([place] appropriate class) I. II. III, IV Lungs Heart ASA score ASA 1: a normal healthy patient ASA 2: a patient with a mild systemic disease (mid diabetes, controlled hypertension, obesity ASA 3: a patient with a severe systemic disease that limits activity (angina , COPD, prior Myocardial infarction) ASA 4: a patient with an incapacitating disease that is a constant threat to life (CHF, renal failure) ASA 5: a moribund patient not expected to survive 24 hrs. (ruptured aneurysm) ASA 6: a declared brain patient whose organs are being harvested. For emergent operations, add the letter E after the classification Grade 1 Sedation Plan: Analgesia, Amnesia, Plan communicated to team members, Discussed options with patient/fam, Discussed risks with patient/fam Note The patient is an appropriate candidate to undergo the planned procedure, sedation, and anesthesia. The patient immediately re-assessed prior to indication. Caron MAURER MD July 04, 2017 1:55 pm
[2017-07-04] MEDS ORDERED: NS IV 1000 ML 1,000 ML IV SCH ×2 (14:00→14:41)
[2017-07-04] MEDS ORDERED: ATOR40TA PO (14:38)
--- NOTE | 2017-07-04 14:41 | Discharge Inst-Simple/Standard ---
Discharge Inst-Standard Discharge Medications New, Converted or Re-Newed RX: Call to Patients Pharmacy Patient Instructions/Follow Up Plan of Care/Instructions/FU: Please continue to take your medications as prescribed. Please schedule follow up with your PCP in 1 week. Activity as Tolerated: Yes Discharge Diet: Cardiac Diet Return to The Hospital For: Chest pain, SOB, if you feel you are getting worse. Planned Outpatient Orders/Ref. Pneu Vac Indicated: Yes MIGUEL SARABIA MD July 04, 2017 2:41 pm
--- NOTE | 2017-07-04 14:48 | Coronary Angiography Report ---
Coronary Angiography Report DATE OF PROCEDURE: 07/04/17 INDICATION: Chest pain, abnormal nuclear stress test PREOPERATIVE DIAGNOSIS: Chest pain, abnormal nuclear stress test POSTOPERATIVE DIAGNOSIS: Mild to moderate single vessel disease. HISTORY: This is a 46-year-old gentleman with history of morbid obesity, diabetes, hypertension, hyperlipidemia and active smoking. He presented with chest pain. Acute coronary syndrome was ruled out with serial negative troponin. Nuclear stress test was limited due to significant motion artifact. There was a likely inferior reversible defect. Therefore, the patient was scheduled for coronary angiography. PROCEDURES PERFORMED: 1.Coronary angiography. 2.Left heart catheterization. 3. Aortic arch angiography COMPLICATIONS: None. SPECIMENS: None. ESTIMATED BLOOD LOSS: 10 mL ANESTHESIA: Conscious sedation ANTICOAGULATION: IV heparin CONTRAST: 110 mL. FLUOROSCOPY: 7.5 minutes. FLOUROSCOPY DOSE: [id number] mgy. PROCEDURE DETAILS: The patient is a 46 male and was brought to the [facility]orer [facility] after informed consent was taken. All the risks and complications were explained in detail; this included the risk of bleeding, vascular damage, stroke , RI and even . The patient was draped and prepped in the usual sterile fashion. Access was gained in the right radial artery with a 6 Ma[place] sheath. Coronary angiography and left heart catheterization was performed with the Harvey catheter. RCA was engaged with a JR4 catheter. Aortic arch and geography was performed with a JR4 catheter. FINDINGS: 1.Left main: Patent. 2.LAD: Luminal irregularities. Transapical vessel. 3.Left circumflex artery: Mild to moderate proximal disease in a small ramus branch. Patent left circumflex and OM artery. 4.RCA: Patent. Dominant vessel. 5.Left heart catheterization: Aortic pressure 100/80 mmHg. LV pressure 116/5 mmHg. LVEDP 10 mmHg. Normal LV function with no wall motion abnormalities. No gradient across the aortic valve. 6. Aortic arch angiography: No evidence of dissection or aneurysm. Normal proximal segments of the great arteries including brachio-cephalic artery, left common carotid artery and left subclavian artery. CONCLUSIONS: Mild to moderate ramus disease. Small vessel. No other significant CAD noted. Normal LV function. Smoking cessation was strongly recommended. Outpatient nephrology consultation for chronic kidney disease. Jaison Bauman MD, FACP, FACC, [facility] Interventional Cardiology Caron BAUMAN MD July 04, 2017 2:48 pm
[2017-07-04] MEDS ORDERED: ATORVASTATIN 40 MG (LIPITOR) TABLET PO SCH (21:00)
== END 2017-07-04 14:42 | disposition home or self-care (01) ==
LOC: EDUNIT# 18:14 → ER 18:16 → ICU 21:35 → UNDOADMOB 21:35 → ICU 22:18 → UNDOADMOB 22:18 → UNDODISOB 07-04 18:19
PROVIDERS: ADMIT Internal Medicine; ATTEND Internal Medicine
DX: I25.119 Atherosclerotic heart disease of native coronary artery with unspecified angina pectoris (principal); I10 Essential (primary) hypertension; J44.9 Chronic obstructive pulmonary disease, unspecified; E11.9 Type 2 diabetes mellitus without complications; E78.5 Hyperlipidemia, unspecified; F17.210 Nicotine dependence, cigarettes, uncomplicated; N17.9 Acute kidney failure, unspecified; E66.01 Morbid (severe) obesity due to excess calories; Z68.43 Body mass index [BMI] 50.0-59.9, adult
CPT/HCPCS: 36221; 36415; 71045; 78452; 80053; 80061; 80306; 82962; 83690; 83735; 83874; 83880; 84484; 85025; 85610; 85730; 93005; 93017; 93041; 93306; 93458; 94640; 96372

== ENCOUNTER 2017-07-20 10:21 | Emergency (ER) | payer MEDICAID ==
[~2017-07-20 10:21] MED LIST changes: +ACET-575 PO; +ACET-93 PO; +ARIP20TA9 PO; +ASPI-586 PO; +ATOR40TA PO; +BUPR100T15 PO; +DICL100T3 PO; +FAMO20TA3 PO; +FLUT1DIS28 IH; +GABA-488 PO; +HYDR-3820 PO; +HYOS-20 PO; +L.AC1CAP6 PO; +LOPE2CAP PO; +MESA1.2T3 PO; +METF500T5 PO; +METO50TA15 PO; +ROPI4TAB3 PO; +TOPI200T8 PO
== END 2017-07-20 12:13 | disposition left against medical advice (07) ==
LOC: EDUNIT# 10:21 → ER 10:22
DX: R20.8 Other disturbances of skin sensation (principal); R42 Dizziness and giddiness

== ENCOUNTER 2017-08-20 12:34 | Emergency (ER) | payer MEDICAID ==
[~2017-08-20] VITALS: Ht 175.3 cm; Wt 161.0 kg
--- NOTE | 2017-08-20 12:44 | ED Chest Pain ---
General Stated Complaint: CHEST PAIN/SOA Source: patient Exam Limitations: no limitations History of Present Illness Date Seen by Provider: Aug 20, 2017 Time Seen by Provider: 12:41 Initial Comments This overweight hypertensive diabetic smoker 46-year-old male presents to ER per private vehicle with reports of central chest pain that started 1 hour ago after eating lunch. He's been at rest. This did not occur with activity. He had some dizziness but no nausea or vomiting. He reports that he had some acid reflux last night, took a Zantac and that resolved. he states that he formerly smoked one pack of cigarettes per day for many years but quit one month ago. 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 SL [employer] R[employer]TE MAIL DRIVER: No Associated Symptoms: nausea/vomiting Allergies and Home Medications Allergies Coded Allergies: No Known Drug Allergies (Unverified , 12/31/10) Home Medications Acetaminophen 500 Mg Tablet, 500 MG PO Q8H PRN for PAIN-BREAKTHROUGH, (Reported) Acetaminophen/Diphenhydramine 1 Each Tablet, 1 EACH PO HS PRN for SLEEP, ( Reported) Albuterol Sulfate 1 Puff Puff, 2 PUFF IH Q4H PRN for WHEEZING 2 puffs every 4 hours Prescribed by: LOGAN SNELL on 10/16/16 1754 Amitriptyline HCl 50 Mg Tablet, 50 MG PO HS, (Reported) Aripiprazole 20 Mg Tablet, 20 MG PO DAILY, (Reported) Aspirin 81 Mg Tablet.dr, 81 MG PO DAILY, (Reported) Atorvastatin Calcium 40 Mg Tablet, 40 MG PO HS Prescribed by: MIGUEL SARABIA on 07/04/17 1438 Bupropion HCl 100 Mg Tablet, 200 MG PO DAILY, (Reported) Bupropion HCl 100 Mg Tablet, 200 MG PO NOON, (Reported) Diclofenac Sod 100 Mg Tab, 100 MG PO DAILY, (Reported) Dicyclomine HCl 10 Mg Capsule, 10 MG PO QID, (Reported) Famotidine 20 Mg Tablet, 20 MG PO BID, (Reported) Fenofibrate,Micronized 145 Mg Tablet, 145 MG PO DAILY, (Reported) Fluticasone/Salmeterol 1 Each Blst.w.dev, 1 EACH IH DAILY, (Reported) Gabapentin 300 Mg Capsule, 300 MG PO HS, (Reported) Hydrocodone/Acetaminophen 1 Each Tablet, 1 EACH PO Q6H PRN for PAIN-MILD TO MODERATE, (Reported) Hyoscyamine Sulfate 0.125 Mg Tablet, 0.125 MG PO QID PRN for SPASMS, (Reported) L.acidoph & Paracasei,B.lactis 1 Each Capsule, 1 EACH PO DAILY, (Reported) Lisinopril 10 Mg Tablet, 10 MG PO DAILY, (Reported) Loperamide HCl 2 Mg Capsule, 4 MG PO PRN PRN for DIARRHEA, (Reported) Mesalamine 1.2 Gm Tablet.dr, 4.8 GM PO DAILY, (Reported) Metformin HCl 500 Mg Tablet, 500 MG PO BID, (Reported) Metoprolol Tartrate 50 Mg Tablet, 50 MG PO BID, (Reported) Multivitamin 1 Each Tablet, 1 EACH PO DAILY, (Reported) [place]-3 Acid Ethyl Esters 1 Gm Capsule, 2 G PO BID WITH MEALS, (Reported) Pantoprazole Sodium 40 Mg Tablet.dr, 40 MG PO DAILY, (Reported) Ropinirole HCl 4 Mg Tablet, 4 MG PO TID, (Reported) Sucralfate 1 Gm Tab, 1 GM PO UD TAKE BEFORE EACH MEAL AND AT BEDTIME FOR STOMACH Prescribed by: KIT JOHNSON on 10/18/132110 Topiramate 200 Mg Tablet, 200 MG PO BID, (Reported) Patient Home Medication List Home Medication List Reviewed: Yes Review of Systems Constitutional: see HPI EENTM: No Symptoms Reported Respiratory: No Symptoms Reported Cardiovascular: See HPI, Chest Pain Gastrointestinal: No Symptoms Reported Genitourinary: No Symptoms Reported Musculoskeletal: no symptoms reported Psychiatric/Neurological: No Symptoms Reported Endocrine: No Symptoms Reported Hematologic/Lymphatic: No Symptoms Reported Past Cgieurg-Xfbqin-Drevhi Hx Patient Social History Alcohol Beverage of Choice: Beer Drug of Choice: Hx of SPEED, COCAINE usage Type Used: Cigarettes Recent Hopitalizations: Yes Immunizations Up To Date Tetanus Booster (TDap): Unknown PED Vaccines UTD: No Date of Influenza Vaccine: Dec 01, 2013 Seasonal Allergies Seasonal Allergies: No Past Medical History Surgeries: Yes (LAP EVELIO, BACK SURGERY, FINGER; LITHOTRIPSY ) Gallbladder, Orthopedic, Renal Respiratory: Yes (C-PAP MACHINE) Sleep Apnea, COPD Currently Using CPAP: Yes Currently Using BIPAP: No Cardiac: Yes High Cholesterol, Hypertension Neurological: No Reproductive Disorders: No Sexually Transmitted Disease: No HIV/AIDS: No Genitourinary: Yes Kidney Stones Gastrointestinal: Yes (S/P EVELIO; FATTY LIVER ON CT. ) Colitis, Gastroesophageal Reflux, Gall Bladder Disease Musculoskeletal: Yes Arthritis, Chronic Back Pain Endocrine: Yes (MORBID OBESITY) Diabetes, Non-Insulin dep HEENT: Yes (POOR DENTITION) Cancer: No Psychosocial: Yes (BIPOLAR, POLYSUBSTANCE ABUSE) Anxiety, Bipolar, Depression Integumentary: No Blood Disorders: No Adverse Reaction/Blood Tranf: No Family Medical History DVT 19 MOTHER, , Onset:Unknown Diabetes mellitus 19 MOTHER, , Onset:Unknown G8 BROTHER, Onset:Unknown FH: gastric ulcer 19 FATHER, Onset:Unknown Physical Exam Vital Signs Vital Signs - First Documented 08/20/17 12:35 Temp 97.1 Pulse 101 Resp 18 B/P (MAP) 136/83 (100) Pulse Ox 96 Capillary Refill : General Appearance: No Apparent Distress, WD/WN, Obese HEENT: PERRL/EOMI, TMs Normal Neck: Full Range of Motion, Normal Inspection Respiratory: No Accessory Muscle Use, No Respiratory Distress Cardiovascular: Regular Rate, Rhythm, Normal Peripheral Pulses Gastrointestinal: Non Tender, Soft Extremity: Normal Capillary Refill Neurologic/Psychiatric: Alert, Oriented x3 Skin: Normal Color, Warm/Dry Progress/Results/Core Measures Results/Orders Lab Results Laboratory Tests Test 08/20/17 12:43 Range/Units White Blood Count 10.7 4.3-11.0 10^3/uL Red Blood Count 5.03 4.35-5.85 10^6/uL Hemoglobin 15.7 13.3-17.7 G/DL Hematocrit 45 40-54 % Mean Corpuscular Volume 90 80-99 FL Mean Corpuscular Hemoglobin 31 25-34 PG Mean Corpuscular Hemoglobin Concent 35 32-36 G/DL Red Cell Distribution Width 14.8 H 10.0-14.5 % Platelet Count 183 130-400 10^3/uL Mean Platelet Volume 10.2 7.4-10.4 FL Neutrophils (%) (Auto) 71 42-75 % Lymphocytes (%) (Auto) 18 12-44 % Monocytes (%) (Auto) 9 0-12 % Eosinophils (%) (Auto) 2 0-10 % Basophils (%) (Auto) 1 0-10 % Neutrophils # (Auto) 7.6 1.8-7.8 X 10^3 Lymphocytes # (Auto) 1.9 1.0-4.0 X 10^3 Monocytes # (Auto) 0.9 0.0-1.0 X 10^3 Eosinophils # (Auto) 0.2 0.0-0.3 10^3/uL Basophils # (Auto) 0.1 0.0-0.1 10^3/uL Prothrombin Time 13.2 12.2-14.7 SEC INR Comment 1.0 0.8-1.4 Activated Partial Thromboplast Time 26 24-35 SEC Sodium Level 139 135-145 MMOL/L Potassium Level 3.7 3.6-5.0 MMOL/L Chloride Level 109 H 98-107 MMOL/L Carbon Dioxide Level 18 L 21-32 MMOL/L Anion Gap 12 5-14 MMOL/L Blood Urea Nitrogen 16 7-18 MG/DL Creatinine 1.65 H 0.60-1.30 MG/DL Estimat Glomerular Filtration Rate 45 BUN/Creatinine Ratio 10 Glucose Level 102 70-105 MG/DL Calcium Level 10.2 H 8.5-10.1 MG/DL Magnesium Level 2.2 1.8-2.4 MG/DL Total Bilirubin 0.7 0.1-1.0 MG/DL Aspartate Amino Transf (AST/SGOT) 35 H 5-34 U/L Alanine Aminotransferase (ALT/SGPT) 45 0-55 U/L Alkaline Phosphatase 57 40-136 U/L Myoglobin 89.9 10.0-92.0 NG/ML Troponin I < 0.30 <0.30 NG/ML B-Type Natriuretic Peptide < 10.0 <100.0 PG/ML Total Protein 7.2 6.4-8.2 GM/DL Albumin 4.4 3.2-4.5 GM/DL My Orders Orders - LOGAN SNELL INDUSTRIAL ELECTRICIAN JOURNEYMAN Cbc With Automated Diff (08/20/17 12:39) Magnesium (08/20/17 12:39) Chest 1 View, Ap/Pa Only (08/20/17 12:39) Ekg Tracing (08/20/17 12:39) Cardiac Profile 1 (08/20/17 12:39) Comprehensive Metabolic Panel (08/20/17 12:39) Myoglobin Serum (08/20/17 12:39) Protime With Inr (6/20/18 12:39) Partial Thromboplastin Time (08/20/17 12:39) O2 (08/20/17 12:39) Monitor-Rhythm Ecg Trace Only (08/20/17 12:39) Lipid Panel (08/21/17 06:00) Aspirin Chewable Tablet (Baby Aspirin Ch (08/20/17 12:45) Saline Lock/Iv-Start (08/20/17 12:39) BNP (08/20/17 12:39) Antacid Suspension (Mylanta Suspension (08/20/17 12:45) Lidocaine 2% Viscous 15 Ml (Xylocaine Vi (08/20/17 12:45) Hemoglobin A1c (08/20/17 15:00) Troponin I (08/20/17 15:53) Medications Given in ED Current Medications Medications Dose Ordered Sig/Saba Route Start Time Stop Time Status Last Admin Dose Admin Al Hydrox/Mg Hydrox/Simethicone 30 ml ONCE ONCE PO 08/20/17 12:45 08/20/17 12:46 DC 08/20/17 12:45 30 ML Aspirin 324 mg ONCE ONCE PO 08/20/17 12:45 08/20/17 12:46 DC 08/20/17 12:45 324 MG Lidocaine HCl 15 ml ONCE ONCE PO 08/20/17 12:45 08/20/17 12:46 DC 08/20/17 12:45 15 ML Vital Signs/I&O 08/20/17 12:35 Temp 97.1 Pulse 101 Resp 18 B/P (MAP) 136/83 (100) Pulse Ox 96 Initial ECG Rhythm: Normal Sinus Initial ECG Intervals: Normal Initial ECG Impression: Normal Diagnostic Imaging Diagonstic Imaging: CT Comments NAME: [facility] REC#: [id number] PT STATUS: REG ER : 1970 PHYSICIAN: LOGAN SNELL APRN ADMIT DATE: 08/20/17/ER Draft Date of Exam:08/20/17 CHEST 1 VIEW, AP/PA ONLY INDICATION: Chest pain. Frontal chest obtained at 12:55 p.m. and compared with 07/12/2017. There is cardiomegaly. There is mild central vascular congestion which is improved compared with 07/12/2017. There is no consolidation, pneumothorax, or pleural fluid. IMPRESSION: Cardiomegaly. Mild central vascular prominence, improved compared with 07/12/2017. No acute consolidation, pneumothorax, or pleural fluid. Dictated on workstation # [id number] Dict: 08/20/17 1308 Trans: 08/20/17 1314 [id number] Interpreted by: ODELL BAGLEY MD Electronically signed by: Departure Communication (Admissions) 2280- states that he is feeling better at this time after GI cocktail. He had a heart catheterization done on July 04 of this year which showed mild to moderate ramus disease but otherwise no coronary artery disease. Initial troponin is negative. I discussed this with him. We will keep him here in the ER for 4 more hours and at 4 PM repeat a troponin. If Still negative discharge to home. His EKG reveals no changes from Prior ekg. Impression Primary Impression: Chest pain Disposition: HOME, SELF-CARE Condition: Stable Departure-Patient Inst. Decision time for Depature: 15:54 Referrals: ÁNGEL CASPER MD (PCP/Family) Primary Care Physician Patient Instructions: Chest Pain (DC) Add. Discharge Instructions: 1. Return to ER for any concerns 2. See your doctor within 2 days for follow up LOGAN SNELL INDUSTRIAL ELECTRICIAN JOURNEYMAN Aug 20, 2017 12:44
[2017-08-20] MEDS ORDERED: LIDOCAINE 2% VISCOUS 15 ML UDC PO ONE (12:45)
[2017-08-20] MEDS ORDERED: ASPIRIN 81 MG CHEW (CHILDREN'S ASA) PO ONE (12:45)
[2017-08-20] MEDS ORDERED: ANTACID SUSP 30 ML UDC (MYLANTA) PO ONE (12:45)
[2017-08-20 12:49] LABS: BASOPHILS # (AUTO) 0.1 10^3/uL (0.0-0.1); BASOPHILS % (AUTO) 1 % (0-10); EOSINOPHILS # (AUTO) 0.2 10^3/uL (0.0-0.3); EOSINOPHILS % (AUTO) 2 % (0-10); HEMATOCRIT 45 % (40-54); HEMOGLOBIN 15.7 G/DL (13.3-17.7); LYMPHOCYTES # (AUTO) 1.9 X 10^3 (1.0-4.0); LYMPHOCYTES % (AUTO) 18 % (12-44); MEAN CORPUSCULAR HEMOGLOBIN 31 PG (25-34); MEAN CORPUSCULAR HGB CONC 35 G/DL (32-36); MEAN CORPUSCULAR VOLUME 90 FL (80-99); MEAN PLATELET VOLUME 10.2 FL (7.4-10.4); MONOCYTES # (AUTO) 0.9 X 10^3 (0.0-1.0); MONOCYTES % (AUTO) 9 % (0-12); NEUTROPHILS # (AUTO) 7.6 X 10^3 (1.8-7.8); NEUTROPHILS % (AUTO) 71 % (42-75); PLATELET COUNT 183 10^3/uL (130-400); RED BLOOD COUNT 5.03 10^6/uL (4.35-5.85); RED CELL DISTRIBUTION WIDTH 14.8 % (10.0-14.5); WHITE BLOOD COUNT 10.7 10^3/uL (4.3-11.0)
[2017-08-20 13:03] LABS: PROTHROMBIN TIME PATIENT 13.2 SEC (12.2-14.7)
[2017-08-20 13:12] LABS: ALANINE AMINOTRANSFERASE 45 U/L (0-55); ALBUMIN 4.4 GM/DL (3.2-4.5); ALKALINE PHOSPHATASE 57 U/L (40-136); BILIRUBIN,TOTAL 0.7 MG/DL (0.1-1.0); BUN/CREATININE RATIO 10; CALCIUM 10.2 MG/DL (8.5-10.1); CARBON DIOXIDE 18 MMOL/L (21-32); CHLORIDE 109 MMOL/L (98-107); CREATININE SERUM 1.65 MG/DL (0.60-1.30); GFR ESTIMATED 45; GLUCOSE 102 MG/DL (70-105); MAGNESIUM 2.2 MG/DL (1.8-2.4); POTASSIUM 3.7 MMOL/L (3.6-5.0); SODIUM 139 MMOL/L (135-145); TOTAL PROTEIN 7.2 GM/DL (6.4-8.2)
--- NOTE | 2017-08-20 13:14 | Diagnostic Imaging Report ---
INDICATION: Chest pain. Frontal chest obtained at 12:55 p.m. and compared with 07/12/2017. There is cardiomegaly. There is mild central vascular congestion which is improved compared with 07/12/2017. There is no consolidation, pneumothorax, or pleural fluid. IMPRESSION: Cardiomegaly. Mild central vascular prominence, improved compared with 07/12/2017. No acute consolidation, pneumothorax, or pleural fluid. Dictated by: Dictated on workstation # [id number]
[2017-08-20 13:18] LABS: MYOGLOBIN SERUM 89.9 NG/ML (10.0-92.0)
[2017-08-20 17:09] VITALS: BP 142/64
== END 2017-08-20 17:10 | disposition home or self-care (01) ==
LOC: EDUNIT# 12:34 → ER 12:35
DX: R07.89 Other chest pain (principal); J44.9 Chronic obstructive pulmonary disease, unspecified; G47.30 Sleep apnea, unspecified; E78.00 Pure hypercholesterolemia, unspecified; I10 Essential (primary) hypertension; K21.9 Gastro-esophageal reflux disease without esophagitis; E66.01 Morbid (severe) obesity due to excess calories; E11.9 Type 2 diabetes mellitus without complications; F41.9 Anxiety disorder, unspecified; F31.9 Bipolar disorder, unspecified; Z87.442 Personal history of urinary calculi; Z90.49 Acquired absence of other specified parts of digestive tract; Z79.82 Long term (current) use of aspirin; Z87.19 Personal history of other diseases of the digestive system; Z79.84 Long term (current) use of oral hypoglycemic drugs; Z79.51 Long term (current) use of inhaled steroids; Z87.891 Personal history of nicotine dependence; Z98.890 Other specified postprocedural states
CPT/HCPCS: 36415; 71045; 80053; 83036; 83735; 83874; 83880; 84484; 85025; 85610; 85730; 93005; 93041

== ENCOUNTER 2017-08-24 23:39 | Emergency (ER) | payer MEDICAID ==
[~2017-08-24] VITALS: Ht 177.8 cm; Wt 161.0 kg
[2017-08-25 00:29] LABS: BILIRUBIN,URINE NEGATIVE (NEGATIVE); COLOR,URINE YELLOW; GLUCOSE, URINE (UA) NEGATIVE (NEGATIVE); KETONES,URINE NEGATIVE (NEGATIVE); LEUKOCYTE ESTERASE ,URINE 3+ (NEGATIVE); NITRITE,URINE NEGATIVE (NEGATIVE); PH,URINE 7 (5-9); PROTEIN,URINE NEGATIVE (NEGATIVE); UROBILINOGEN,URINE NORMAL (NORMAL)
[2017-08-25 00:34] LABS: CLARITY,URINE CLOUDY
[2017-08-25 00:37] LABS: AMORPHOUS SEDIMENT,UR MOD AMOR PHOSPHATE /LPF; BACTERIA,URINE FEW /HPF; HYALINE CASTS, URINE RARE /LPF
[2017-08-25 00:45] LABS: BASOPHILS # (AUTO) 0.1 10^3/uL (0.0-0.1); BASOPHILS % (AUTO) 1 % (0-10); EOSINOPHILS # (AUTO) 0.2 10^3/uL (0.0-0.3); EOSINOPHILS % (AUTO) 2 % (0-10); HEMATOCRIT 45 % (40-54); HEMOGLOBIN 15.1 G/DL (13.3-17.7); LYMPHOCYTES # (AUTO) 2.4 X 10^3 (1.0-4.0); LYMPHOCYTES % (AUTO) 22 % (12-44); MEAN CORPUSCULAR HEMOGLOBIN 31 PG (25-34); MEAN CORPUSCULAR HGB CONC 34 G/DL (32-36); MEAN CORPUSCULAR VOLUME 91 FL (80-99); MEAN PLATELET VOLUME 10.9 FL (7.4-10.4); MONOCYTES % (AUTO) 9 % (0-12); NEUTROPHILS % (AUTO) 66 % (42-75); PLATELET COUNT 190 10^3/uL (130-400); RED BLOOD COUNT 4.89 10^6/uL (4.35-5.85); RED CELL DISTRIBUTION WIDTH 14.9 % (10.0-14.5); WHITE BLOOD COUNT 10.6 10^3/uL (4.3-11.0)
[2017-08-25] MEDS ORDERED: ANTACID SUSP 30 ML UDC (MYLANTA) PO ONE (00:45)
[2017-08-25] MEDS ORDERED: LIDOCAINE 2% VISCOUS 15 ML UDC PO ONE (00:45)
--- NOTE | 2017-08-25 00:53 | ED Abdominal Pain ---
General Chief Complaint: Abdominal/GI Problems Stated Complaint: AB PAIN Nursing Triage Note: PATIENT STATES THAT HE HAS HAD PAIN ON LEFT SIDE OF HIS UPPER ABD ALL WEEK. HE STATES THAT HAS ALSO HAD "A LITTLE NAUSEA, BUT NOT MUCH". Sepsis Screen: No Definite Risk Source of Information: Patient, Old Records Exam Limitations: No Limitations History of Present Illness Date Seen by Provider: Aug 25, 2017 Time Seen by Provider: 00:05 Initial Comments This 46-year-old man presents to the emergency room with complaints of pain in the left chest and left upper quadrant. He has had this pain for over a week but states it is worse today. The pain is tight or squeezing in nature and sometimes braden. It is worse with deep breathing. He denies cough or fever. He reports quitting tobacco about one month ago. He has been seen for this chest pain at [facility] by Dr. Zuñiga recently. He states it was felt to be a hiatal hernia at that time and he is being referred for endoscopy. Patient has also undergone cardiac workup at this facility. Review of chart notes a cardiac catheterization in July demonstrating mild to moderate proximal disease in a small ramus branch but otherwise no coronary artery disease. Allergies and Home Medications Allergies Coded Allergies: No Known Drug Allergies (Unverified , 12/31/10) Home Medications Acetaminophen 500 Mg Tablet, 500 MG PO Q8H PRN for PAIN-BREAKTHROUGH, (Reported) Acetaminophen/Diphenhydramine 1 Each Tablet, 1 EACH PO HS PRN for SLEEP, ( Reported) Albuterol Sulfate 1 Puff Puff, 2 PUFF IH Q4H PRN for WHEEZING 2 puffs every 4 hours Prescribed by: LOGAN SNELL on 10/16/16 1754 Amitriptyline HCl 50 Mg Tablet, 50 MG PO HS, (Reported) Aripiprazole 20 Mg Tablet, 20 MG PO DAILY, (Reported) Aspirin 81 Mg Tablet.dr, 81 MG PO DAILY, (Reported) Atorvastatin Calcium 40 Mg Tablet, 40 MG PO HS Prescribed by: MIGUEL SARABIA on 07/04/17 1438 Bupropion HCl 100 Mg Tablet, 200 MG PO DAILY, (Reported) Bupropion HCl 100 Mg Tablet, 200 MG PO NOON, (Reported) Diclofenac Sod 100 Mg Tab, 100 MG PO DAILY, (Reported) Dicyclomine HCl 10 Mg Capsule, 10 MG PO QID, (Reported) Famotidine 20 Mg Tablet, 20 MG PO BID, (Reported) Fenofibrate,Micronized 145 Mg Tablet, 145 MG PO DAILY, (Reported) Fluticasone/Salmeterol 1 Each Blst.w.dev, 1 EACH IH DAILY, (Reported) Gabapentin 300 Mg Capsule, 300 MG PO HS, (Reported) Hydrocodone/Acetaminophen 1 Each Tablet, 1 EACH PO Q6H PRN for PAIN-MILD TO MODERATE, (Reported) Hyoscyamine Sulfate 0.125 Mg Tablet, 0.125 MG PO QID PRN for SPASMS, (Reported) L.acidoph & Paracasei,B.lactis 1 Each Capsule, 1 EACH PO DAILY, (Reported) Lisinopril 10 Mg Tablet, 10 MG PO DAILY, (Reported) Loperamide HCl 2 Mg Capsule, 4 MG PO PRN PRN for DIARRHEA, (Reported) Mesalamine 1.2 Gm Tablet.dr, 4.8 GM PO DAILY, (Reported) Metformin HCl 500 Mg Tablet, 500 MG PO BID, (Reported) Metoprolol Tartrate 50 Mg Tablet, 50 MG PO BID, (Reported) Multivitamin 1 Each Tablet, 1 EACH PO DAILY, (Reported) [place]-3 Acid Ethyl Esters 1 Gm Capsule, 2 G PO BID WITH MEALS, (Reported) Pantoprazole Sodium 40 Mg Tablet.dr, 40 MG PO DAILY, (Reported) Ropinirole HCl 4 Mg Tablet, 4 MG PO TID, (Reported) Sucralfate 1 Gm Tab, 1 GM PO UD TAKE BEFORE EACH MEAL AND AT BEDTIME FOR STOMACH Prescribed by: KIT JOHNSON on 10/18/132110 Topiramate 200 Mg Tablet, 200 MG PO BID, (Reported) Tramadol HCl 50 Mg Tablet, 50 MG PO QID Prescribed by: RUDY MEREDITH on 08/25/17 0131 Patient Home Medication List Home Medication List Reviewed: Yes Review of Systems Constitutional: no symptoms reported EENTM: No Symptoms Reported Respiratory: See HPI Cardiovascular: See HPI Gastrointestinal: See HPI Genitourinary: No Symptoms Reported Musculoskeletal: no symptoms reported Skin: no symptoms reported Psychiatric/Neurological: No Symptoms Reported Endocrine: No Symptoms Reported Hematologic/Lymphatic: No Symptoms Reported Past Zbsaraf-Wkooir-Lsfnqx Hx Patient Social History Alcohol Beverage of Choice: Beer Drug of Choice: Hx of SPEED, COCAINE usage Type Used: Cigarettes Former Smoker, Quit: Jun 04, 2017 Recent Foreign Travel: No Contact w/Someone Who Travel: No Recent Infectious Disease Expo: No Recent Hopitalizations: Yes Immunizations Up To Date Tetanus Booster (TDap): Unknown PED Vaccines UTD: No Date of Influenza Vaccine: Dec 01, 2013 Seasonal Allergies Seasonal Allergies: No Past Medical History Surgeries: Yes (LAP EVELIO, BACK SURGERY, FINGER; LITHOTRIPSY ) Cardiac (Cardiac catheter with no disease amenable to intervention), Gallbladder , Orthopedic, Renal Respiratory: Yes (C-PAP MACHINE) Sleep Apnea, COPD Currently Using CPAP: Yes Currently Using BIPAP: No Cardiac: Yes High Cholesterol, Hypertension Neurological: No Reproductive Disorders: No Sexually Transmitted Disease: No HIV/AIDS: No Genitourinary: Yes Kidney Stones, Renal Failure Gastrointestinal: Yes (S/P EVELIO; FATTY LIVER ON CT. ) Colitis, Gastroesophageal Reflux, Gall Bladder Disease Musculoskeletal: Yes Arthritis, Chronic Back Pain Endocrine: Yes (MORBID OBESITY) Diabetes, Non-Insulin dep HEENT: Yes (POOR DENTITION) Cancer: No Psychosocial: Yes (BIPOLAR, POLYSUBSTANCE ABUSE) Anxiety, Bipolar, Depression Integumentary: No Blood Disorders: No Adverse Reaction/Blood Tranf: No Family Medical History DVT 19 MOTHER, , Onset:Unknown Diabetes mellitus 19 MOTHER, , Onset:Unknown G8 BROTHER, Onset:Unknown FH: gastric ulcer 19 FATHER, Onset:Unknown Physical Exam Vital Signs Vital Signs - First Documented 08/24/17 08/25/17 23:46 01:56 Temp 97.9 Pulse 92 Resp 24 B/P (MAP) 121/72 (88) Pulse Ox 95 O2 Delivery Room Air Capillary Refill : Less Than 3 Seconds General Appearance: WD/WN, no apparent distress, obese HEENT: PERRL/EOMI, normal ENT inspection Neck: normal inspection Respiratory: lungs clear, normal breath sounds, no respiratory distress, no accessory muscle use Cardiovascular: regular rate, rhythm, no edema, no murmur Gastrointestinal: normal bowel sounds, soft, tenderness (Mild in the left upper quadrant and epigastrium), other (Profoundly obese abdomen) Extremities: normal inspection, no pedal edema, no calf tenderness 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/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, no motor/sensory deficits, alert, normal mood/affect, oriented x 3 Skin: normal color, warm/dry Progress/Results/Core Measures Results/Orders Lab Results Laboratory Tests Test 08/24/17 23:50 6/25/18 00:20 Range/Units White Blood Count 10.6 4.3-11.0 10^3/uL Red Blood Count 4.89 4.35-5.85 10^6/uL Hemoglobin 15.1 13.3-17.7 G/DL Hematocrit 45 40-54 % Mean Corpuscular Volume 91 80-99 FL Mean Corpuscular Hemoglobin 31 25-34 PG Mean Corpuscular Hemoglobin Concent 34 32-36 G/DL Red Cell Distribution Width 14.9 H 10.0-14.5 % Platelet Count 190 130-400 10^3/uL Mean Platelet Volume 10.9 H 7.4-10.4 FL Neutrophils (%) (Auto) 66 42-75 % Lymphocytes (%) (Auto) 22 12-44 % Monocytes (%) (Auto) 9 0-12 % Eosinophils (%) (Auto) 2 0-10 % Basophils (%) (Auto) 1 0-10 % Neutrophils # (Auto) 7.0 1.8-7.8 X 10^3 Lymphocytes # (Auto) 2.4 1.0-4.0 X 10^3 Monocytes # (Auto) 1.0 0.0-1.0 X 10^3 Eosinophils # (Auto) 0.2 0.0-0.3 10^3/uL Basophils # (Auto) 0.1 0.0-0.1 10^3/uL Sodium Level 139 135-145 MMOL/L Potassium Level 3.9 3.6-5.0 MMOL/L Chloride Level 110 H 98-107 MMOL/L Carbon Dioxide Level 19 L 21-32 MMOL/L Anion Gap 10 5-14 MMOL/L Blood Urea Nitrogen 14 7-18 MG/DL Creatinine 1.71 H 0.60-1.30 MG/DL Estimat Glomerular Filtration Rate 43 BUN/Creatinine Ratio 8 Glucose Level 131 H 70-105 MG/DL Calcium Level 9.8 8.5-10.1 MG/DL Total Bilirubin 0.4 0.1-1.0 MG/DL Aspartate Amino Transf (AST/SGOT) 28 5-34 U/L Alanine Aminotransferase (ALT/SGPT) 42 0-55 U/L Alkaline Phosphatase 67 40-136 U/L Troponin I < 0.30 <0.30 NG/ML B-Type Natriuretic Peptide < 10.0 <100.0 PG/ML Total Protein 6.9 6.4-8.2 GM/DL Albumin 4.2 3.2-4.5 GM/DL Lipase 48 8-78 U/L Urine Color YELLOW Urine Clarity CLOUDY H Urine pH 7 5-9 Urine Specific [place] 1.010 L 1.016-1.022 Urine Protein NEGATIVE NEGATIVE Urine Glucose (UA) NEGATIVE NEGATIVE Urine Ketones NEGATIVE NEGATIVE Urine Nitrite NEGATIVE NEGATIVE Urine Bilirubin NEGATIVE NEGATIVE Urine Urobilinogen NORMAL NORMAL MG/DL Urine Leukocyte Esterase 3+ H NEGATIVE Urine RBC (Auto) NEGATIVE NEGATIVE Urine RBC NONE /HPF Urine WBC 5-10 H /HPF Urine Squamous Epithelial Cells 5-10 /HPF Urine Crystals PRESENT H /LPF Urine Amorphous Sediment MOD TARYN PHOSPHATE H /LPF Urine Bacteria FEW H /HPF Urine Casts PRESENT /LPF Urine Hyaline Casts RARE /LPF Urine Granular Casts 2-5 H /LPF Urine Mucus NEGATIVE /LPF Urine Culture Indicated YES My Orders Orders - RUDY BARRETO MD Ua Culture If Indicated (08/25/17 00:05) Urine Culture (08/25/17 00:20) Cbc With Automated Diff (08/25/17 00:38) Comprehensive Metabolic Panel (08/25/17 00:38) Lipase (08/25/17 00:38) Troponin I (08/25/17 00:38) Ekg Tracing (08/25/17 00:38) Chest Pa/Lat (2 View) (08/25/17 00:38) Lidocaine 2% Viscous 15 Ml (Xylocaine Vi (08/25/17 00:45) Antacid Suspension (Mylanta Suspension (08/25/17 00:45) BNP (08/25/17 00:43) Tramadol Tablet (Ultram Tablet) (08/25/17 01:30) Medications Given in ED Current Medications Medications Dose Ordered Sig/Saba Route Start Time Stop Time Status Last Admin Dose Admin Al Hydrox/Mg Hydrox/Simethicone 30 ml ONCE ONCE PO 08/25/17 00:45 08/25/17 00:46 DC 08/25/17 00:46 30 ML Lidocaine HCl 15 ml ONCE ONCE PO 08/25/17 00:45 08/25/17 00:46 DC 08/25/17 00:46 15 ML Tramadol HCl 50 mg ONCE ONCE PO 08/25/17 01:30 08/25/17 01:31 DC 08/25/17 01:34 50 MG Vital Signs/I&O 08/24/17 08/25/17 23:46 01:56 Temp 97.9 Pulse 92 87 Resp 24 22 B/P (MAP) 121/72 (88) 156/90 Pulse Ox 95 O2 Delivery Room Air Blood Pressure Mean: 88 Progress Progress Note : Progress Note Patient was given a GI cocktail with some improvement in pain. Patient states he is pursuing endoscopy. Patient received atypical in nature as it was reproducible with palpation and also involved the left upper quadrant. Patient has had multiple cardiac workups without any evidence of significant coronary artery disease. Patient was advised to follow-up with his primary care provider for further assessment. Initial ECG Impression Date: Aug 25, 2017 Initial ECG Impression Time: 00:44 Initial ECG Rate: 88 Initial ECG Rhythm: Normal Sinus Comment Normal sinus rhythm with no ST elevation or depression. First to AV block. No axis deviation. Diagnostic Imaging Diagonstic Imaging: Xray Plain Films/CT/US/NM/MRI: chest Comments Chest x-ray viewed by me. Report not yet available. Compared with prior. No acute abnormalities appreciated. Departure Impression Primary Impression: Left upper quadrant pain Additional Impression: Atypical chest pain Disposition: HOME, SELF-CARE Condition: Improved Departure-Patient Inst. Decision time for Depature: 01:29 Referrals: ÁNGEL CASPER MD (PCP/Family) Primary Care Physician Patient Instructions: Acute Abdomen (Belly Pain), Adult (DC) Add. Discharge Instructions: Continue with your medications as previously prescribed, especially your antacid medications. Follow-up with Dr. Bauman as soon as possible. Continue to pursue referral for endoscopy as previously instructed by Dr. Zuñiga. Avoid the following: Eating large meals, eating close to bedtime, caffeine, carbonation, citrus fruits and juices, tomato products, tobacco, alcohol, NSAID medications such as ibuprofen or naproxen, mints, spicy foods, fatty or greasy foods, or anything else you know irritates your stomach. Work toward weight loss to reduce pressure on your chest and abdomen. All discharge instructions reviewed with patient and/or family. Voiced understanding. Scripts Tramadol HCl (Ultram) 50 Mg Tablet 50 MG PO QID, #20 TAB Prov: RUDY BARRETO MD 08/25/17 Copy Copies To 1: Caron BAUMAN MD Copies To 2: ÁNGEL CASPER MD, JOSHUA T MD Aug 25, 2017 00:52
[2017-08-25 00:59] LABS: ALANINE AMINOTRANSFERASE 42 U/L (0-55); ALBUMIN 4.2 GM/DL (3.2-4.5); ALKALINE PHOSPHATASE 67 U/L (40-136); BILIRUBIN,TOTAL 0.4 MG/DL (0.1-1.0); BUN/CREATININE RATIO 8; CALCIUM 9.8 MG/DL (8.5-10.1); CARBON DIOXIDE 19 MMOL/L (21-32); CHLORIDE 110 MMOL/L (98-107); CREATININE SERUM 1.71 MG/DL (0.60-1.30); GFR ESTIMATED 43; GLUCOSE 131 MG/DL (70-105); LIPASE 48 U/L (8-78); POTASSIUM 3.9 MMOL/L (3.6-5.0); SODIUM 139 MMOL/L (135-145); TOTAL PROTEIN 6.9 GM/DL (6.4-8.2)
[2017-08-25] MEDS ORDERED: TRAM-42 PO (01:31)
[2017-08-25 01:56] VITALS: BP 156/90
--- NOTE | 2017-08-25 06:43 | Diagnostic Imaging Report ---
Indication: Upper abdominal pain. Comparison: 08/20/2017 Findings: Two views of the chest are obtained. Heart size is enlarged but unchanged. Pulmonary vessels appear unremarkable. There is no pneumothorax, mediastinal widening or pleural fluid. The lungs are clear. The osseous structures appear unremarkable. Impression: No acute cardiopulmonary abnormality is demonstrated. Dictated by: Dictated on workstation # [id number]
== END 2017-08-25 01:56 | disposition home or self-care (01) ==
LOC: EDUNIT# 23:39 → ER 23:41
DX: R07.89 Other chest pain (principal); R10.12 Left upper quadrant pain; G47.30 Sleep apnea, unspecified; J44.9 Chronic obstructive pulmonary disease, unspecified; E78.00 Pure hypercholesterolemia, unspecified; I10 Essential (primary) hypertension; F41.9 Anxiety disorder, unspecified; F31.9 Bipolar disorder, unspecified; E66.01 Morbid (severe) obesity due to excess calories; E11.9 Type 2 diabetes mellitus without complications; Z87.19 Personal history of other diseases of the digestive system; Z98.890 Other specified postprocedural states; Z90.49 Acquired absence of other specified parts of digestive tract; Z79.82 Long term (current) use of aspirin; Z79.84 Long term (current) use of oral hypoglycemic drugs
CPT/HCPCS: 36415; 71046; 80053; 81000; 83690; 83880; 84484; 85025; 87088; 93005

== ENCOUNTER 2017-09-21 10:34 | Emergency (ER) | payer MEDICAID ==
[~2017-09-21] VITALS: Ht 177.8 cm; Wt 163.3 kg
[~2017-09-21 10:34] MED LIST changes: +CEPH-507 PO; +TRAM-42 PO
--- OUTSIDE RECORDS SUMMARY | 2017-09-21 10:40 | XMS REPORT | Clinical Summary ---
Author Author [facility] Organization [facility] Address Unknown Phone Unavailable Care Team Providers Care Fire Equipment Inspector Name Role Phone Carey Boland RN Unavailable Unavailable Self, Referral PCP Unavailable Renny Eisenberg MD Unavailable Source Comments Some departments are not documenting in the electronic medical record. If you do not see the information that you expected, contact Release of Information in the Health Information Management department at [phone] for further assistance in locating additional records.[facility] Allergies No Known Allergies Current Medications Prescription [...]
[2017-09-21] MEDS ORDERED: FAMOTIDINE 20 MG (PEPCID) TABLET PO STA (11:02)
--- NOTE | 2017-09-21 11:12 | ED Abdominal Pain ---
General Chief Complaint: General Problems/Pain Stated Complaint: PAIN IN UPPER ABDOMEN Nursing Triage Note: TO ROOM REPORTS HAS HAD HIATAL HERNIA FOR 3 WEEKS. HAD SCOPE IN [place] ON [place] THAT CONFORMED IT. HAS TRAMDOL AND HYDROCODNE NOT SURE HOW TO TAKE THOSE MEDS Sepsis Screen: No Definite Risk Source of Information: Patient Exam Limitations: No Limitations History of Present Illness Date Seen by Provider: Sep 21, 2017 Time Seen by Provider: 10:58 Initial Comments Patient presents to the ER by private conveyance with a chief complaint that he has been having a lot of reflux and abdominal discomfort for the past couple weeks. He says he was sent to Dr. Zuñiga to have a scope done in [place] and was told he had a hiatal hernia. He says he's been using the medications the Pepcid, antacids and Carafate as prescribed as well as his hydrocodone and Ultram and is just not helping with his reflux. He is not having any nausea, chest pain, shortness of breath. He had a normal bowel movement yesterday and thinks maybe even this morning as well. Said he had a bowl serial That down fine. He is not having any fevers or chills. He's had his gallbladder out but no other surgeries. He does not smoke or drink anymore. He Quit smoking 2 months ago. He has diabetes but is not on any medicines for it presently. He does not have a history of coronary artery disease or lung disease. Allergies and Home Medications Allergies Coded Allergies: No Known Drug Allergies (Unverified , 12/31/10) Home Medications Acetaminophen 500 Mg Tablet, 500 MG PO Q8H PRN for PAIN-BREAKTHROUGH, (Reported) Acetaminophen/Diphenhydramine 1 Each Tablet, 1 EACH PO HS PRN for SLEEP, ( Reported) Albuterol Sulfate 1 Puff Puff, 2 PUFF IH Q4H PRN for WHEEZING 2 puffs every 4 hours Prescribed by: LOGAN SNELL on 10/16/16 1754 Amitriptyline HCl 50 Mg Tablet, 50 MG PO HS, (Reported) Aripiprazole 20 Mg Tablet, 20 MG PO DAILY, (Reported) Aspirin 81 Mg Tablet., 81 MG PO DAILY, (Reported) Atorvastatin Calcium 40 Mg Tablet, 40 MG PO HS Prescribed by: MIGUEL SARABIA on 07/04/17 1438 Bupropion HCl 100 Mg Tablet, 200 MG PO DAILY, (Reported) Bupropion HCl 100 Mg Tablet, 200 MG PO NOON, (Reported) Cephalexin 500 Mg Capsule, 500 MG PO QID, (Reported) Diclofenac Sod 100 Mg Tab, 100 MG PO DAILY, (Reported) Dicyclomine HCl 10 Mg Capsule, 10 MG PO QID, (Reported) Famotidine 20 Mg Tablet, 20 MG PO BID, (Reported) Fenofibrate,Micronized 145 Mg Tablet, 145 MG PO DAILY, (Reported) Fluticasone/Salmeterol 1 Each Blst.w.dev, 1 EACH IH DAILY, (Reported) Gabapentin 300 Mg Capsule, 300 MG PO HS, (Reported) Hydrocodone/Acetaminophen 1 Each Tablet, 1 EACH PO Q6H PRN for PAIN-MILD TO MODERATE, (Reported) Hyoscyamine Sulfate 0.125 Mg Tablet, 0.125 MG PO QID PRN for SPASMS, (Reported) L.acidoph & Paracasei,B.lactis 1 Each Capsule, 1 EACH PO DAILY, (Reported) Lisinopril 10 Mg Tablet, 10 MG PO DAILY, (Reported) Loperamide HCl 2 Mg Capsule, 4 MG PO PRN PRN for DIARRHEA, (Reported) Mesalamine 1.2 Gm Tablet.dr, 4.8 GM PO DAILY, (Reported) Metformin HCl 500 Mg Tablet, 500 MG PO BID, (Reported) Metoprolol Tartrate 50 Mg Tablet, 50 MG PO BID, (Reported) Multivitamin 1 Each Tablet, 1 EACH PO DAILY, (Reported) [place]-3 Acid Ethyl Esters 1 Gm Capsule, 2 G PO BID WITH MEALS, (Reported) Pantoprazole Sodium 40 Mg Tablet.dr, 40 MG PO DAILY, (Reported) Ropinirole HCl 4 Mg Tablet, 4 MG PO TID, (Reported) Sucralfate 1 Gm Tab, 1 GM PO UD TAKE BEFORE EACH MEAL AND AT BEDTIME FOR STOMACH Prescribed by: KIT JOHNSON on 10/18/132110 Topiramate 200 Mg Tablet, 200 MG PO BID, (Reported) Tramadol HCl 50 Mg Tablet, 50 MG PO QID Prescribed by: RUDY MEREDITH on 08/25/17 0131 Patient Home Medication List Home Medication List Reviewed: Yes Review of Systems Constitutional: No chills, No fever EENTM: No Blurred Vision, No Double Vision Respiratory: Denies Cough, Denies Shortness of Air Cardiovascular: Denies Chest Pain, Denies Edema Gastrointestinal: Abdomen Distended, Abdominal Pain; Denies Constipated, Denies Diarrhea, Denies Nausea, Denies Poor Appetite, Denies Poor Fluid Intake Genitourinary: Denies Burning, Denies Discharge Past Tllcaqv-Hlcguz-Osefsc Hx Patient Social History Alcohol Use: Occasionally Uses Number of Drinks Today: AA Alcohol Beverage of Choice: Beer Recreational Drug Use: No Drug of Choice: Hx of SPEED, COCAINE usage Type Used: Cigarettes Former Smoker, Quit: Jun 04, 2017 Recent Foreign Travel: No Contact w/Someone Who Travel: No Recent Infectious Disease Expo: No Recent Hopitalizations: Yes Immunizations Up To Date Tetanus Booster (TDap): Unknown PED Vaccines UTD: No Date of Influenza Vaccine: Dec 01, 2013 Seasonal Allergies Seasonal Allergies: No Past Medical History Surgeries: Yes (LAP EVELIO, BACK SURGERY, FINGER; LITHOTRIPSY ) Cardiac, Gallbladder, Orthopedic, Renal Respiratory: Yes (C-PAP MACHINE) Sleep Apnea, COPD Currently Using CPAP: Yes Currently Using BIPAP: No Cardiac: Yes High Cholesterol, Hypertension Neurological: No Reproductive Disorders: No Sexually Transmitted Disease: No HIV/AIDS: No Genitourinary: Yes Kidney Stones, Renal Failure Gastrointestinal: Yes (S/P EVELIO; FATTY LIVER ON CT. ) Colitis, Gastroesophageal Reflux, Gall Bladder Disease Musculoskeletal: Yes Arthritis, Chronic Back Pain Endocrine: Yes (MORBID OBESITY) Diabetes, Non-Insulin dep HEENT: Yes (POOR DENTITION) Cancer: No Psychosocial: Yes (BIPOLAR, POLYSUBSTANCE ABUSE) Anxiety, Bipolar, Depression Integumentary: No Blood Disorders: No Adverse Reaction/Blood Tranf: No Family Medical History DVT 19 MOTHER, , Onset:Unknown Diabetes mellitus 19 MOTHER, , Onset:Unknown G8 BROTHER, Onset:Unknown FH: gastric ulcer 19 FATHER, Onset:Unknown Physical Exam Vital Signs Vital Signs - First Documented 09/21/17 10:48 Temp 98.7 Pulse 89 Resp 18 B/P (MAP) 138/78 (98) Capillary Refill : Less Than 3 Seconds Height/Weight/BMI Height: 5'10.00" Weight: 360lbs. 0.4oz. 163.729581qb; 51.8 BMI Method:Stated General Appearance: WD/WN, no apparent distress HEENT: PERRL/EOMI, pharynx normal Respiratory: chest non-tender, no respiratory distress, no accessory muscle use Cardiovascular: normal peripheral pulses, regular rate, rhythm Peripheral Pulses: 2+ Radial Pulses (R), 2+ Radial Pulses (L) Gastrointestinal: normal bowel sounds, non tender, soft, no organomegaly Extremities: normal range of motion, non-tender Neurologic/Psychiatric: alert, normal mood/affect, oriented x 3 Progress/Results/Core Measures Results/Orders Lab Results Laboratory Tests Test 09/21/17 11:14 Range/Units White Blood Count 8.1 4.3-11.0 10^3/uL Red Blood Count 4.78 4.35-5.85 10^6/uL Hemoglobin 15.3 13.3-17.7 G/DL Hematocrit 44 40-54 % Mean Corpuscular Volume 92 80-99 FL Mean Corpuscular Hemoglobin 32 25-34 PG Mean Corpuscular Hemoglobin Concent 35 32-36 G/DL Red Cell Distribution Width 14.6 H 10.0-14.5 % Platelet Count 162 130-400 10^3/uL Mean Platelet Volume 10.8 H 7.4-10.4 FL Neutrophils (%) (Auto) 64 42-75 % Lymphocytes (%) (Auto) 23 12-44 % Monocytes (%) (Auto) 10 0-12 % Eosinophils (%) (Auto) 3 0-10 % Basophils (%) (Auto) 1 0-10 % Neutrophils # (Auto) 5.2 1.8-7.8 X 10^3 Lymphocytes # (Auto) 1.8 1.0-4.0 X 10^3 Monocytes # (Auto) 0.8 0.0-1.0 X 10^3 Eosinophils # (Auto) 0.2 0.0-0.3 10^3/uL Basophils # (Auto) 0.1 0.0-0.1 10^3/uL Sodium Level 137 135-145 MMOL/L Potassium Level 3.6 3.6-5.0 MMOL/L Chloride Level 109 H 98-107 MMOL/L Carbon Dioxide Level 19 L 21-32 MMOL/L Anion Gap 9 5-14 MMOL/L Blood Urea Nitrogen 14 7-18 MG/DL Creatinine 1.51 H 0.60-1.30 MG/DL Estimat Glomerular Filtration Rate 50 BUN/Creatinine Ratio 9 Glucose Level 112 H 70-105 MG/DL Calcium Level 9.5 8.5-10.1 MG/DL Total Bilirubin 0.5 0.1-1.0 MG/DL Aspartate Amino Transf (AST/SGOT) 37 H 5-34 U/L Alanine Aminotransferase (ALT/SGPT) 55 0-55 U/L Alkaline Phosphatase 64 40-136 U/L Total Protein 6.6 6.4-8.2 GM/DL Albumin 4.4 3.2-4.5 GM/DL Lipase 32 8-78 U/L My Orders Orders - SALTY MENDEZ Cbc With Automated Diff (09/21/17 11:02) Comprehensive Metabolic Panel (09/21/17 11:02) Lipase (09/21/17 11:02) Abdomen, Flat & Upright/Decub (09/21/17 11:02) Lidocaine 2% Viscous 15 Ml (Xylocaine Vi (09/21/17 11:15) Famotidine Tablet (Pepcid Tablet) (09/21/17 11:02) Antacid Suspension (Mylanta Suspension (09/21/17 11:15) Medications Given in ED Current Medications Medications Dose Ordered Sig/Saba Route Start Time Stop Time Status Last Admin Dose Admin Al Hydrox/Mg Hydrox/Simethicone 30 ml ONCE ONCE PO 09/21/17 11:15 09/21/17 11:16 DC 09/21/17 11:17 30 ML Lidocaine HCl 15 ml ONCE ONCE PO 09/21/17 11:15 09/21/17 11:16 DC 09/21/17 11:17 15 ML Vital Signs/I&O 09/21/17 10:48 Temp 98.7 Pulse 89 Resp 18 B/P (MAP) 138/78 (98) Blood Pressure Mean: 98 Progress Progress Note #1: Time: 11:11 Progress Note Range of him a GI cocktail check some basic labs and a flat plate x-ray. He is not really tender and does not have a surgical abdomen but as well as a slight possibility of some intra-abdominal process going on besides his acid reflux. Progress Note #2: Time: 12:37 Progress Note Labs and x-ray are unremarkable. He thinks the GI cocktail helped just a little bit but he still having some reflux. He has an appointment on Friday in 2 days with his primary care doctor he can go back and see them and discuss his outpatient workup with them. Diagnostic Imaging Diagonstic Imaging: Xray Plain Films/CT/US/NM/MRI: abdomen Comments VIA [facility], [facility]. [place], [place] NAME: DREW HILL [facility] REC#: [id number] PT STATUS: REG ER : 1970 PHYSICIAN: SALTY MENDEZ MD ADMIT DATE: 09/21/17/ER Draft Date of Exam:09/21/17 ABDOMEN, FLAT & UPRIGHT/DECUB INDICATION: Abdominal pain. FINDINGS: Lung bases are clear. Bowel gas pattern is nonspecific. No free air. There are surgical clips in the right upper quadrant. IMPRESSION: Nonspecific bowel gas pattern. Dictated on workstation # [id number] Dict: 09/21/17 1130 Trans: 09/21/17 1134 [facility] [id number] Interpreted by: HALEY CASTANEDA MD Electronically signed by: Reviewed: Reviewed by Me Departure Impression Primary Impression: GERD (gastroesophageal reflux disease) Qualified Codes: K21.9 - Gastro-esophageal reflux disease without esophagitis Disposition: HOME, SELF-CARE Condition: Stable Departure-Patient Inst. Decision time for Depature: 12:41 Referrals: NÁGEL CASPER MD (PCP/Family) Primary Care Physician Patient Instructions: Acid Reflux (Gastroesophageal Reflux Disease), Adult (DC) Add. Discharge Instructions: Please keep your follow-up appointment in 2 days with your primary care doctor. You can use Tums in addition to Pepcid or Prilosec. Continue to take the Carafate as prescribed. Eat smaller meals. Eat bland meals with high fiber low spicy greasy sugary content. All discharge instructions reviewed with patient and/or family. Voiced understanding. Copy Copies To 1: ÁNGEL CASPER MD, TITUS J Sep 21, 2017 11:12
[2017-09-21] MEDS ORDERED: LIDOCAINE 2% VISCOUS 15 ML UDC PO ONE (11:15)
[2017-09-21] MEDS ORDERED: ANTACID SUSP 30 ML UDC (MYLANTA) PO ONE (11:15)
[2017-09-21 11:20] LABS: BASOPHILS # (AUTO) 0.1 10^3/uL (0.0-0.1); BASOPHILS % (AUTO) 1 % (0-10); EOSINOPHILS # (AUTO) 0.2 10^3/uL (0.0-0.3); EOSINOPHILS % (AUTO) 3 % (0-10); HEMATOCRIT 44 % (40-54); HEMOGLOBIN 15.3 G/DL (13.3-17.7); LYMPHOCYTES # (AUTO) 1.8 X 10^3 (1.0-4.0); LYMPHOCYTES % (AUTO) 23 % (12-44); MEAN CORPUSCULAR HEMOGLOBIN 32 PG (25-34); MEAN CORPUSCULAR HGB CONC 35 G/DL (32-36); MEAN CORPUSCULAR VOLUME 92 FL (80-99); MEAN PLATELET VOLUME 10.8 FL (7.4-10.4); MONOCYTES # (AUTO) 0.8 X 10^3 (0.0-1.0); MONOCYTES % (AUTO) 10 % (0-12); NEUTROPHILS # (AUTO) 5.2 X 10^3 (1.8-7.8); NEUTROPHILS % (AUTO) 64 % (42-75); PLATELET COUNT 162 10^3/uL (130-400); RED BLOOD COUNT 4.78 10^6/uL (4.35-5.85); RED CELL DISTRIBUTION WIDTH 14.6 % (10.0-14.5); WHITE BLOOD COUNT 8.1 10^3/uL (4.3-11.0)
--- NOTE | 2017-09-21 11:35 | Diagnostic Imaging Report ---
INDICATION: Abdominal pain. FINDINGS: Lung bases are clear. Bowel gas pattern is nonspecific. No free air. There are surgical clips in the right upper quadrant. IMPRESSION: Nonspecific bowel gas pattern. Dictated by: Dictated on workstation # [id number]
[2017-09-21 11:54] LABS: ALBUMIN 4.4 GM/DL (3.2-4.5); BILIRUBIN,TOTAL 0.5 MG/DL (0.1-1.0); CALCIUM 9.5 MG/DL (8.5-10.1); CREATININE SERUM 1.51 MG/DL (0.60-1.30); POTASSIUM 3.6 MMOL/L (3.6-5.0); TOTAL PROTEIN 6.6 GM/DL (6.4-8.2)
[2017-09-21 12:53] VITALS: BP 138/78
== END 2017-09-21 12:52 | disposition home or self-care (01) ==
LOC: EDUNIT# 10:34 → ER 10:36
DX: K21.9 Gastro-esophageal reflux disease without esophagitis (principal); E11.9 Type 2 diabetes mellitus without complications; G47.30 Sleep apnea, unspecified; J44.9 Chronic obstructive pulmonary disease, unspecified; E78.00 Pure hypercholesterolemia, unspecified; I10 Essential (primary) hypertension; F41.9 Anxiety disorder, unspecified; F31.9 Bipolar disorder, unspecified; E66.01 Morbid (severe) obesity due to excess calories; Z91.14 Patient's other noncompliance with medication regimen; Z87.19 Personal history of other diseases of the digestive system; Z68.43 Body mass index [BMI] 50.0-59.9, adult; Z79.51 Long term (current) use of inhaled steroids; Z79.82 Long term (current) use of aspirin; Z87.891 Personal history of nicotine dependence; Z79.84 Long term (current) use of oral hypoglycemic drugs; Z90.49 Acquired absence of other specified parts of digestive tract; Z87.442 Personal history of urinary calculi
CPT/HCPCS: 36415; 74019; 80053; 83690; 85025

== ENCOUNTER 2017-10-03 17:10 | Emergency (ER) | payer MEDICAID ==
[~2017-10-03] VITALS: Ht 177.8 cm; Wt 163.3 kg
--- NOTE | 2017-10-03 17:23 | ED GU-Male ---
General Chief Complaint: -Male Stated Complaint: BLOOD IN URINE Source: patient Exam Limitations: no limitations History of Present Illness Date Seen by Provider: Oct 03, 2017 Time Seen by Provider: 17:23 Initial Comments 46-year-old male who presents to emergency room with complaints of hematuria and burning with urination. He reports that 2 days ago he did have a cystoscopy by Dr. Luz. He reports that he had the blood in his urine since the procedure but the burning started today. He reports that the exam was normal at this time and there was no biopsy performed. Timing/Duration: getting worse, changing over time Severity/Quality: burning Radiation: none Activities at Onset: none Associated Symptoms: dysuria; No fever/chills, No loss of bladder control, No lower back pain, No nausea/vomiting; urinary frequency Allergies and Home Medications Allergies Coded Allergies: No Known Drug Allergies (Unverified , 12/31/10) Home Medications Acetaminophen 500 Mg Tablet, 500 MG PO Q8H PRN for PAIN-BREAKTHROUGH, (Reported) Acetaminophen/Diphenhydramine 1 Each Tablet, 1 EACH PO HS PRN for SLEEP, ( Reported) Albuterol Sulfate 1 Puff Puff, 2 PUFF IH Q4H PRN for WHEEZING 2 puffs every 4 hours Prescribed by: LOGAN SNELL on 10/16/16 1754 Amitriptyline HCl 50 Mg Tablet, 50 MG PO HS, (Reported) Aripiprazole 20 Mg Tablet, 20 MG PO DAILY, (Reported) Aspirin 81 Mg Tablet.dr, 81 MG PO DAILY, (Reported) Atorvastatin Calcium 40 Mg Tablet, 40 MG PO HS Prescribed by: MIGUEL SARABIA on 07/04/17 1438 Bupropion HCl 100 Mg Tablet, 200 MG PO DAILY, (Reported) Bupropion HCl 100 Mg Tablet, 200 MG PO NOON, (Reported) Cephalexin 500 Mg Capsule, 500 MG PO BID Prescribed by: TRINITY CURRY on 10/03/17 1809 Diclofenac Sod 100 Mg Tab, 100 MG PO DAILY, (Reported) Dicyclomine HCl 10 Mg Capsule, 10 MG PO QID, (Reported) Famotidine 20 Mg Tablet, 20 MG PO BID, (Reported) Fenofibrate,Micronized 145 Mg Tablet, 145 MG PO DAILY, (Reported) Fluticasone/Salmeterol 1 Each Blst.w.dev, 1 EACH IH DAILY, (Reported) Gabapentin 300 Mg Capsule, 300 MG PO HS, (Reported) Hydrocodone/Acetaminophen 1 Each Tablet, 1 EACH PO Q6H PRN for PAIN-MILD TO MODERATE, (Reported) Hyoscyamine Sulfate 0.125 Mg Tablet, 0.125 MG PO QID PRN for SPASMS, (Reported) L.acidoph & Paracasei,B.lactis 1 Each Capsule, 1 EACH PO DAILY, (Reported) Lisinopril 10 Mg Tablet, 10 MG PO DAILY, (Reported) Loperamide HCl 2 Mg Capsule, 4 MG PO PRN PRN for DIARRHEA, (Reported) Mesalamine 1.2 Gm Tablet.dr, 4.8 GM PO DAILY, (Reported) Metformin HCl 500 Mg Tablet, 500 MG PO BID, (Reported) Metoprolol Tartrate 50 Mg Tablet, 50 MG PO BID, (Reported) Multivitamin 1 Each Tablet, 1 EACH PO DAILY, (Reported) [place]-3 Acid Ethyl Esters 1 Gm Capsule, 2 G PO BID WITH MEALS, (Reported) Pantoprazole Sodium 40 Mg Tablet.dr, 40 MG PO DAILY, (Reported) Ropinirole HCl 4 Mg Tablet, 4 MG PO TID, (Reported) Sucralfate 1 Gm Tab, 1 GM PO UD TAKE BEFORE EACH MEAL AND AT BEDTIME FOR STOMACH Prescribed by: KIT JOHNSON on 10/18/132110 Topiramate 200 Mg Tablet, 200 MG PO BID, (Reported) Tramadol HCl 50 Mg Tablet, 50 MG PO QID Prescribed by: RUDY MEREDITH on 08/25/17 0131 Patient Home Medication List Home Medication List Reviewed: Yes Review of Systems Constitutional: see HPI; No chills, No fever Genitourinary: see HPI, dysuria, frequency, hematuria, pain All Other Systemes Reviewed Negative Unless Noted: Yes Past Euinzum-Svpfne-Wuhpzd Hx Past Med/Social Hx: Reviewed Nursing Past Med/Soc Hx Patient Social History Alcohol Use: Denies Use Number of Drinks Today: AA Alcohol Beverage of Choice: Beer Recreational Drug Use: No Drug of Choice: Hx of SPEED, COCAINE usage Smoking Status: Former Smoker Type Used: Cigarettes Former Smoker, Quit: Jun 04, 2017 Recent Foreign Travel: No Contact w/Someone Who Travel: No Recent Hopitalizations: Yes Immunizations Up To Date Tetanus Booster (TDap): Unknown PED Vaccines UTD: No Date of Influenza Vaccine: Dec 01, 2013 Seasonal Allergies Seasonal Allergies: No Past Medical History Surgeries: Yes (LAP EVELIO, BACK SURGERY, FINGER; LITHOTRIPSY ) Cardiac, Gallbladder, Orthopedic, Renal Respiratory: Yes (C-PAP MACHINE) Sleep Apnea, COPD Currently Using CPAP: Yes Currently Using BIPAP: No Cardiac: Yes High Cholesterol, Hypertension Neurological: No Reproductive Disorders: No Sexually Transmitted Disease: No HIV/AIDS: No Genitourinary: Yes Kidney Stones, Renal Failure Gastrointestinal: Yes (S/P EVELIO; FATTY LIVER ON CT. ) Colitis, Gastroesophageal Reflux, Gall Bladder Disease Musculoskeletal: Yes Arthritis, Chronic Back Pain Endocrine: Yes (MORBID OBESITY) Diabetes, Non-Insulin dep HEENT: Yes (POOR DENTITION) Cancer: No Psychosocial: Yes (BIPOLAR, POLYSUBSTANCE ABUSE) Anxiety, Bipolar, Depression Integumentary: No Blood Disorders: No Adverse Reaction/Blood Tranf: No Family Medical History Reviewed Nursing Family Hx DVT 19 MOTHER, , Onset:Unknown Diabetes mellitus 19 MOTHER, , Onset:Unknown G8 BROTHER, Onset:Unknown FH: gastric ulcer 19 FATHER, Onset:Unknown Physical Exam Vital Signs Vital Signs - First Documented 10/03/17 17:13 Temp 97.2 Pulse 100 Resp 18 B/P (MAP) 136/110 (119) Pulse Ox 95 O2 Delivery Room Air Capillary Refill : Height, Weight, BMI Height: 5'10.00" Weight: 360lbs. 0.4oz. 163.977766aq; 51.8 BMI Method:Stated General Appearance: WD/WN, no apparent distress Cardiovascular: regular rate, rhythm, no edema, no gallop, no JVD, no murmur Respiratory: chest non-tender, lungs clear, normal breath sounds, no respiratory distress, no accessory muscle use Gastrointestinal: normal bowel sounds, non tender, soft, no organomegaly, no pulsatile mass Progress/Results/Core Measures Suspected Sepsis SIRS Temperature: Pulse: Respiratory Rate: Blood Pressure / Mean: Results/Orders Lab Results Laboratory Tests Test 10/03/17 17:32 Range/Units Urine Color YELLOW Urine Clarity VERY CLOUDY H Urine pH 5 5-9 Urine Specific [place] 1.020 1.016-1.022 Urine Protein 3+ H NEGATIVE Urine Glucose (UA) NEGATIVE NEGATIVE Urine Ketones NEGATIVE NEGATIVE Urine Nitrite POSITIVE H NEGATIVE Urine Bilirubin NEGATIVE NEGATIVE Urine Urobilinogen NORMAL NORMAL MG/DL Urine Leukocyte Esterase 3+ H NEGATIVE Urine RBC (Auto) 5+ H NEGATIVE Urine RBC TNTC H /HPF Urine WBC 50-100 H /HPF Urine Squamous Epithelial Cells NONE /HPF Urine Crystals NONE /LPF Urine Bacteria TRACE /HPF Urine Casts NONE /LPF Urine Mucus NEGATIVE /LPF Urine Culture Indicated YES Micro Results Microbiology 10/03/17 Urine Culture - Final, Complete Strep agalactiae Group B Enterococcus faecalis See Comments Sent To l My Orders Orders - TRINITY CURRY Ua Culture If Indicated (10/03/17 17:30) Urine Culture (10/03/17 17:32) Ceftriaxone Injection (Rocephin Injectio (10/03/17 18:15) Lidocaine 1% Inj 20 Ml (Xylocaine 1% Inj (10/03/17 18:15) Medications Given in ED Vital Signs/I&O 10/03/17 10/03/17 17:13 18:30 Temp 97.2 97.2 Pulse 100 100 Resp 18 18 B/P (MAP) 136/110 (119) 136/110 (119) Pulse Ox 95 95 O2 Delivery Room Air Capillary Refill : Progress Note : Progress Note I have seen and evaluated the patient. I will be treating the patient with antibiotics for his urinary tract infection. He is advised to follow up with Dr. Luz within 1 week and his primary care provider within 1 week. He agrees with plan to discharge and return precautions were given. Departure Impression Primary Impression: Urinary tract infection Disposition: 01 HOME, SELF-CARE Condition: Stable/Unchanged Departure-Patient Inst. Decision time for Depature: 18:06 Referrals: ÁNGEL CASPER MD (PCP/Family) Primary Care Physician Patient Instructions: Urinary Tract Infection, Adult (DC) Add. Discharge Instructions: Take medication as directed. Drink plenty of clear liquids such as water. Follow up with your doctor within one week for a recheck. Return back to the emergency room for any concerns as needed. All discharge instructions reviewed with patient and/or family. Voiced understanding. Scripts Cephalexin (Keflex) 500 Mg Capsule 500 MG PO BID for 7 Days, #14 CAP Prov: TRINITY CURRY 10/03/17 TRINITY CURRY Oct 03, 2017 17:23
[2017-10-03] MEDS ORDERED: HYDR25TA4 (17:29)
[2017-10-03] MEDS ORDERED: ALLO100T (17:29)
[2017-10-03] MEDS ORDERED: POTA10TA17 (17:29)
[2017-10-03 17:38] LABS: BILIRUBIN,URINE NEGATIVE (NEGATIVE); CLARITY,URINE VERY CLOUDY; COLOR,URINE YELLOW; GLUCOSE, URINE (UA) NEGATIVE (NEGATIVE); KETONES,URINE NEGATIVE (NEGATIVE); LEUKOCYTE ESTERASE ,URINE 3+ (NEGATIVE); NITRITE,URINE POSITIVE (NEGATIVE); PH,URINE 5 (5-9); PROTEIN,URINE 3+ (NEGATIVE); UROBILINOGEN,URINE NORMAL (NORMAL)
[2017-10-03 17:45] LABS: BACTERIA,URINE TRACE /HPF; RBC,URINE TNTC /HPF; WBC,URINE 50-100 /HPF
[2017-10-03] MEDS ORDERED: CEPH-507 PO (18:09)
[2017-10-03] MEDS ORDERED: cefTRIAXone 1 GM (ROCEPHIN) VIAL IM ONE (18:15)
[2017-10-03] MEDS ORDERED: LIDOCAINE 1% INJ 20 ML 20 ML VIAL INJ ONE (18:15)
[2017-10-03 18:30] VITALS: BP 136/110
--- OUTSIDE RECORDS SUMMARY | 2017-10-04 11:05 | XMS REPORT ---
Author Author [facility] Address [address] [place] [address] Care Team Providers Care Senior Associate Name Role Phone GARNERTHOMAS Unavailable PROBLEMS Type Condition ICD9-CM Code [id number] Code Onset Dates Condition Status SNOMED Code Problem Unspecified site of sprain and strain 848.9 Active 109733610 Problem Pleurisy without mention of effusion or current tuberculosis 511.0 Active 324598206 Problem Lumbago 724.2 Active 545098982 Problem Bipolar I disorder, single manic episode, unspecified 296.00 Active 7190282 Problem Restless legs syndrome [RLS] 333.94 Active 65435040 Problem Other specified headache syndromes 339.89 Active 78823319 Problem Essential hypertension, benign 401.1 Active 1803360 Problem Other and unspecified hyperlipidemia 272.4 Active 28904006 Problem Obstructive sleep apnea (adult) (pediatric) 327.23 Active 51811637 ALLERGIES No Known Allergies ENCOUNTERS Encounter Location Date Diagnosis [facility] [id number] [place] [phone] May, Left lower quadrant pain R10.32 and BMI 50.0-59.9, adult Z68.43 [facility] [id number] [place] [phone] Jan, BMI 50.0-59.9, adult Z68.43 ; BMI 60.0-69.9, adult Z68.44 and Gum abscess K05.219 [facility] [id number] [place] [phone] Nov, [facility] [id number] [place] [phone] Oct, Dental examination Z01.20 [facility] [address] [id number] [id number] Oct, Dental examination Z01.20 [facility] [address] [id number] [id number] Jan, Dental examination Z01.20 [facility] [address] [id number] [address] Jun, [facility] [address] [id number], [place] [address] Jun, [facility] [address] [id number][place] [address] Oct, [facility] [id number] [place] [phone] Oct, [facility] [address] [facility] [id number], [place] [address] Oct, [facility] [address] [facility] [id number] [address] Oct, [facility] [address] [facility] [id number], [place] [address] Oct, [facility] [address] [facility] [id number], [place] [address] Oct, [facility] [address] [facility] [id number], [place] [address] Oct, [facility] [address] [facility] [id number], [place] [address] Aug, [facility] [address] [facility] [id number], [place] [address] Aug, [facility] [address] [facility] [id number] [address] Aug, [facility] [address] [facility] [id number][place] [address] Aug, IMMUNIZATIONS No Known Immunizations SOCIAL HISTORY Never Assessed REASON FOR VISIT Abdominal pain for the last couple days JStrasserRN PLAN OF CARE Activity Details Follow Up prn Reason: VITAL SIGNS Height 71 in 2017-05-25 Weight 365 lbs 2017-05-25 Temperature 98.7 degrees Fahrenheit 2017-05-25 Heart Rate 100 bpm 2017-05-25 Respiratory Rate 24 2017-05-25 BMI 50.90 kg/m2 2017-05-25 Blood pressure systolic 148 mmHg 2017-05-25 Blood pressure diastolic 96 mmHg 2017-05-25 MEDICATIONS Medication Instructions Dosage Frequency Start Date End Date Duration Status Carafate 1 GM Orally Twice a day 1 tablet on an empty stomach 12h Active Loratadine 10 mg take 1 tablet (10 mg) by oral route once daily Aug Not-Taking Lovaza 1 gram 1 Capsule 2 times per day Aug, Not-Taking Metformin HCl 500 MG Orally Twice a day 1 tablet with meals 12h Active Ventolin HFA 90 mcg/actuation Aug, Not-Taking [place] 3 1000 MG Orally Once a day 1 capsule 24h Active Abilify 20 MG Orally Once a day 1 tablet 24h Active Hydrocodone-Acetaminophen Not-Taking Wellbutrin SR 200 MG Orally 1 pill afternoon 2 tablet in the morning Active Pantoprazole Sodium 40 MG Orally Once a day 1 tablet 24h Active Hydrocodone-Acetaminophen 5-500 mg take 1 tablet by oral route every 6 hours as needed for painPRN Aug, Active Topamax 100 MG Orally Twice a day 1 tablet 12h Active Metoprolol Tartrate 50 mg 0.5 Tablet every 12 hours Aug, Active Epitol 200 mg take 1 tablet (200 mg) by oral route every 8 hours Aug Not-Taking Lisinopril 10 mg take 1 tablet (10 mg) by oral route once daily Aug Active Hyoscyamine Sulfate 0.125 MG Orally every 4 hrs 1 tablet on the tongue and allow to dissolve as needed 4h Active Pepcid 20 MG Orally Once a day 1 tablet at bedtime 24h Active Gabapentin 300 MG Orally Three times a day 1 capsule 8h Active Lialda 1.2 GM Active Seroquel 300 mg take 2 tablets (600 mg) by oral route once daily Aug Not-Taking Requip 2 mg 1 Tablet 1 time per day Aug, Not-Taking Tricor 145 mg take 1 tablet (145 mg) by oral route once daily Aug, Active venlafaxine 75 mg take 1 capsule (75 mg) by oral route once daily Aug, Not-Taking Diclofenac Sodium 75 MG Orally Twice a day 1 tablet with food or milk 12h Active Advair Diskus 250-50 mcg/dose inhale 1 puff by inhalation route 2 times per day in the morning and evening approximately 12 hours apart Aug, Not-Taking PredniSONE 20 mg 3 tablet by Oral route 1 time per day for 5 day(s) Aug, Not-Taking Topiragen 100 mg 1 Tablet 2 times per day Aug, Not- Taking Ropinirole HCl 4 MG Orally Once a day 1 tablet 1 to 3 hours before bedtime 24h Active Flexeril Not-Taking Bentyl 10 MG Orally Four times a day 2 capsules 6h Not-Taking Amitriptyline HCl 50 MG Orally Once a day 1 tablet 24h Active cyclobenzaprine 10 mg take 1 tablet (10 mg) by oral route 3 times per day Aug, Not-Taking Lipitor 10 mg take 1 tablet (10 mg) by oral route once daily Aug, Active Phentermine HCl 37.5 MG Orally Once a day 1 capsule 24h Active RESULTS No Results PROCEDURES No Known procedures INSTRUCTIONS MEDICATIONS ADMINISTERED No Known Medications MEDICAL (GENERAL) HISTORY Type Description Date Medical History High BP Medical History Diabetes II Medical History Back trouble Medical History Arthritis Surgical History back surgery 2004 Surgical History galbladder 2010 Surgical History finger 1995
--- OUTSIDE RECORDS SUMMARY | 2017-10-04 11:05 | XMS REPORT | Clinical Summary ---
Author Author [facility] Organization [facility] Address Unknown Phone Unavailable Care Team Providers Care Electric Appliance Installer Name Role Phone Carey Boland RN Unavailable Unavailable Self, Referral PCP Unavailable Renny Eisenberg MD Unavailable Source Comments Some departments are not documenting in the electronic medical record. If you do not see the information that you expected, contact Release of Information in the Health Information Management department at [phone] for further assistance in locating additional records.[facility] Allergies No Known Allergies Current Medications [...]
== END 2017-10-03 18:30 | disposition home or self-care (01) ==
LOC: EDUNIT# 17:10 → ER 17:11
DX: N39.0 Urinary tract infection, site not specified (principal); G47.30 Sleep apnea, unspecified; J44.9 Chronic obstructive pulmonary disease, unspecified; E78.00 Pure hypercholesterolemia, unspecified; I10 Essential (primary) hypertension; K21.9 Gastro-esophageal reflux disease without esophagitis; E66.01 Morbid (severe) obesity due to excess calories; E11.9 Type 2 diabetes mellitus without complications; F41.9 Anxiety disorder, unspecified; F31.9 Bipolar disorder, unspecified; Z87.19 Personal history of other diseases of the digestive system; Z87.442 Personal history of urinary calculi; Z79.51 Long term (current) use of inhaled steroids; Z79.82 Long term (current) use of aspirin; Z79.84 Long term (current) use of oral hypoglycemic drugs; Z87.891 Personal history of nicotine dependence; Z90.49 Acquired absence of other specified parts of digestive tract; Z68.43 Body mass index [BMI] 50.0-59.9, adult
CPT/HCPCS: 81000; 87088; 96372; 99284

== ENCOUNTER 2017-10-12 09:33 | Emergency (ER) | payer MEDICAID ==
[~2017-10-12] VITALS: Ht 177.8 cm; Wt 158.8 kg
[~2017-10-12 09:33] MED LIST changes: +ALLO100T; +HYDR25TA4; +POTA10TA17
--- OUTSIDE RECORDS SUMMARY | 2017-10-12 09:38 | XMS REPORT | Clinical Summary ---
Author Author [facility] Organization [facility] Address Unknown Phone Unavailable Care Team Providers Care Hepatology Physician Name Role Phone Carey Boland RN Unavailable Unavailable Self, Referral PCP Unavailable Renny Eisenberg MD Unavailable Source Comments Some departments are not documenting in the electronic medical record. If you do not see the information that you expected, contact Release of Information in the Health Information Management department at [phone] for further assistance in locating additional records.[facility] Allergies No Known Allergies Current Medications [...]
[2017-10-12] MEDS ORDERED: NS IV 1000 ML 1,000 ML IV ONE (09:59)
[2017-10-12 10:32] LABS: BASOPHILS # (AUTO) 0.1 10^3/uL (0.0-0.1); BASOPHILS % (AUTO) 1 % (0-10); EOSINOPHILS # (AUTO) 0.2 10^3/uL (0.0-0.3); EOSINOPHILS % (AUTO) 2 % (0-10); HEMATOCRIT 48 % (40-54); HEMOGLOBIN 16.1 G/DL (13.3-17.7); LYMPHOCYTES # (AUTO) 2.3 X 10^3 (1.0-4.0); LYMPHOCYTES % (AUTO) 24 % (12-44); MEAN CORPUSCULAR HEMOGLOBIN 31 PG (25-34); MEAN CORPUSCULAR HGB CONC 34 G/DL (32-36); MEAN CORPUSCULAR VOLUME 91 FL (80-99); MEAN PLATELET VOLUME 10.7 FL (7.4-10.4); MONOCYTES % (AUTO) 11 % (0-12); NEUTROPHILS # (AUTO) 5.9 X 10^3 (1.8-7.8); NEUTROPHILS % (AUTO) 63 % (42-75); PLATELET COUNT 206 10^3/uL (130-400); RED BLOOD COUNT 5.26 10^6/uL (4.35-5.85); RED CELL DISTRIBUTION WIDTH 14.1 % (10.0-14.5); WHITE BLOOD COUNT 9.4 10^3/uL (4.3-11.0)
[2017-10-12 10:47] LABS: BILIRUBIN,URINE NEGATIVE (NEGATIVE); CLARITY,URINE SL. CLOUDY; COLOR,URINE YELLOW; GLUCOSE, URINE (UA) NEGATIVE (NEGATIVE); KETONES,URINE NEGATIVE (NEGATIVE); LEUKOCYTE ESTERASE ,URINE NEGATIVE (NEGATIVE); NITRITE,URINE NEGATIVE (NEGATIVE); PH,URINE 7 (5-9); PROTEIN,URINE NEGATIVE (NEGATIVE); UROBILINOGEN,URINE NORMAL (NORMAL)
[2017-10-12 10:51] LABS: AMORPHOUS SEDIMENT,UR MOD AMOR PHOSPHATE /LPF; BACTERIA,URINE NEGATIVE /HPF; WBC,URINE 0-2 /HPF
[2017-10-12 10:53] LABS: ALBUMIN 4.5 GM/DL (3.2-4.5); BILIRUBIN,TOTAL 0.6 MG/DL (0.1-1.0); CALCIUM 10.8 MG/DL (8.5-10.1); CREATININE SERUM 1.73 MG/DL (0.60-1.30); POTASSIUM 4.4 MMOL/L (3.6-5.0); TOTAL PROTEIN 7.3 GM/DL (6.4-8.2)
--- NOTE | 2017-10-12 11:07 | ED General ---
General Chief Complaint: Dizziness/Syncope Stated Complaint: DIZZINESS,BLURRED VISION,HIGH BS Nursing Triage Note: AMB TO ROOM REPORTS WAS AT [facility] STOOD UP AND BECAME DIZZY WITH SOME BLURRED VISION DID DRIVE SELF TO HOSPITAL. REPORTS IS IMPROVED ON ADMIT. Nursing Sepsis Screen: No Definite Risk Source of Information: Patient Exam Limitations: No Limitations History of Present Illness Date Seen by Provider: Oct 12, 2017 Time Seen by Provider: 09:50 Initial Comments Here with report of blood sugar elevated and feeling weak today. States that he got dizzy when he stood up. He was able to drive himself here. Denies nausea, vomiting but does have diarrhea. He states that's chronic. Has new meds related to his kidneys. Denies dysuria. Reports blood sugar 260 this morning. States normally is in the 100s. Timing/Duration: 4-6 Hours, Changing Over Time Severity: Mild Associated Systoms: No Chest Pain, No Cough, No Fever/Chills, No Headaches, No Nausea/Vomiting, No Shortness of Air; Weakness Allergies and Home Medications Allergies Coded Allergies: No Known Drug Allergies (Unverified , 12/31/10) Home Medications Acetaminophen 500 Mg Tablet, 500 MG PO Q8H PRN for PAIN-BREAKTHROUGH, (Reported) Acetaminophen/Diphenhydramine 1 Each Tablet, 1 EACH PO HS PRN for SLEEP, ( Reported) Albuterol Sulfate 1 Puff Puff, 2 PUFF IH Q4H PRN for WHEEZING 2 puffs every 4 hours Prescribed by: LOGAN SNELL on 10/16/16 1754 Amitriptyline HCl 50 Mg Tablet, 50 MG PO HS, (Reported) Aripiprazole 20 Mg Tablet, 20 MG PO DAILY, (Reported) Aspirin 81 Mg Tablet.dr, 81 MG PO DAILY, (Reported) Atorvastatin Calcium 40 Mg Tablet, 40 MG PO HS Prescribed by: MIGUEL SARABIA on 07/04/17 1438 Bupropion HCl 100 Mg Tablet, 200 MG PO DAILY, (Reported) Bupropion HCl 100 Mg Tablet, 200 MG PO NOON, (Reported) Cephalexin 500 Mg Capsule, 500 MG PO BID Prescribed by: TRINITY CURRY on 10/03/17 1809 Diclofenac Sod 100 Mg Tab, 100 MG PO DAILY, (Reported) Dicyclomine HCl 10 Mg Capsule, 10 MG PO QID, (Reported) Famotidine 20 Mg Tablet, 20 MG PO BID, (Reported) Fenofibrate,Micronized 145 Mg Tablet, 145 MG PO DAILY, (Reported) Fluticasone/Salmeterol 1 Each Blst.w.dev, 1 EACH IH DAILY, (Reported) Gabapentin 300 Mg Capsule, 300 MG PO HS, (Reported) Hydrocodone/Acetaminophen 1 Each Tablet, 1 EACH PO Q6H PRN for PAIN-MILD TO MODERATE, (Reported) Hyoscyamine Sulfate 0.125 Mg Tablet, 0.125 MG PO QID PRN for SPASMS, (Reported) L.acidoph & Paracasei,B.lactis 1 Each Capsule, 1 EACH PO DAILY, (Reported) Lisinopril 10 Mg Tablet, 10 MG PO DAILY, (Reported) Loperamide HCl 2 Mg Capsule, 4 MG PO PRN PRN for DIARRHEA, (Reported) Mesalamine 1.2 Gm Tablet.dr, 4.8 GM PO DAILY, (Reported) Metformin HCl 500 Mg Tablet, 500 MG PO BID, (Reported) Metoprolol Tartrate 50 Mg Tablet, 50 MG PO BID, (Reported) Multivitamin 1 Each Tablet, 1 EACH PO DAILY, (Reported) [place]-3 Acid Ethyl Esters 1 Gm Capsule, 2 G PO BID WITH MEALS, (Reported) Pantoprazole Sodium 40 Mg Tablet.dr, 40 MG PO DAILY, (Reported) Ropinirole HCl 4 Mg Tablet, 4 MG PO TID, (Reported) Sucralfate 1 Gm Tab, 1 GM PO UD TAKE BEFORE EACH MEAL AND AT BEDTIME FOR STOMACH Prescribed by: KIT JOHNSON on 10/18/132110 Topiramate 200 Mg Tablet, 200 MG PO BID, (Reported) Tramadol HCl 50 Mg Tablet, 50 MG PO QID Prescribed by: RUDY MEREDITH on 08/25/17 0131 Patient Home Medication List Home Medication List Reviewed: Yes Review of Systems Constitutional: see HPI; No chills, No fever EENTM: no symptoms reported Respiratory: no symptoms reported Cardiovascular: no symptoms reported Genitourinary: no symptoms reported Musculoskeletal: No back pain; muscle weakness Skin: no symptoms reported All Other Systems Reviewed Negative Unless Noted: Yes Past Orevqme-Nzrbib-Avqnim Hx Past Med/Social Hx: Reviewed Nursing Past Med/Soc Hx Patient Social History Alcohol Use: Denies Use Number of Drinks Today: AA Alcohol Beverage of Choice: Beer Recreational Drug Use: No Drug of Choice: Hx of SPEED, COCAINE usage Smoking Status: Former Smoker Type Used: Cigarettes Former Smoker, Quit: Jun 04, 2017 Recent Foreign Travel: No Contact w/Someone Who Travel: No Recent Infectious Disease Expo: No Recent Hopitalizations: Yes Immunizations Up To Date Tetanus Booster (TDap): Unknown PED Vaccines UTD: No Date of Influenza Vaccine: Dec 01, 2013 Seasonal Allergies Seasonal Allergies: No Past Medical History Surgeries: Yes (LAP EVELIO, BACK SURGERY, FINGER; LITHOTRIPSY ) Cardiac, Gallbladder, Orthopedic, Renal Respiratory: Yes (C-PAP MACHINE) Sleep Apnea, COPD Currently Using CPAP: Yes Currently Using BIPAP: No Cardiac: Yes High Cholesterol, Hypertension Neurological: No Reproductive Disorders: No Sexually Transmitted Disease: No HIV/AIDS: No Genitourinary: Yes Kidney Stones, Renal Failure Gastrointestinal: Yes (S/P EVELIO; FATTY LIVER ON CT. ) Colitis, Gastroesophageal Reflux, Gall Bladder Disease Musculoskeletal: Yes Arthritis, Chronic Back Pain Endocrine: Yes (MORBID OBESITY) Diabetes, Non-Insulin dep HEENT: Yes (POOR DENTITION) Cancer: No Psychosocial: Yes (BIPOLAR, POLYSUBSTANCE ABUSE) Anxiety, Bipolar, Depression Integumentary: No Blood Disorders: No Adverse Reaction/Blood Tranf: No Family Medical History Reviewed Nursing Family Hx DVT 19 MOTHER, , Onset:Unknown Diabetes mellitus 19 MOTHER, , Onset:Unknown G8 BROTHER, Onset:Unknown FH: gastric ulcer 19 FATHER, Onset:Unknown Physical Exam Vital Signs Vital Signs - First Documented 10/12/17 09:36 Temp 98.5 Pulse 96 Resp 18 B/P (MAP) 131/106 (114) Capillary Refill : Less Than 3 Seconds Height, Weight, BMI Height: 5'10.00" Weight: 350lbs. 0.4oz. 158.463675wg; 51.8 BMI Method:Stated General Appearance: No Apparent Distress, WD/WN, Obese HEENT: PERRL/EOMI, Pharynx Normal Neck: Non Tender, Supple Respiratory: Lungs Clear, Normal Breath Sounds Cardiovascular: Regular Rate, Rhythm, No Murmur Back: Normal Inspection, No CVA Tenderness, No Vertebral Tenderness Extremity: Normal Inspection, Normal Range of Motion, Non Tender, No Calf Tenderness Neurologic/Psychiatric: Alert, Oriented x3 Skin: Normal Color, Warm/Dry Progress/Results/Core Measures Suspected Sepsis Recent Fever Within 48 Hours: No Infection Criteria Present: None New/Unexplained Altered Menta: No Sepsis Screen: No Definite Risk SIRS Temperature:98.5 Pulse: 96 Respiratory Rate: 18 Laboratory Tests 10/12/17 10:20: White Blood Count 9.4 Blood Pressure 131 /106 Mean: 114 Laboratory Tests 10/12/17 10:20: Creatinine 1.73H, Platelet Count 206, Total Bilirubin 0.6 Results/Orders Lab Results Laboratory Tests Test 10/12/17 10:08 10/12/17 10:20 Range/Units Urine Color YELLOW Urine Clarity SL. CLOUDY Urine pH 7 5-9 Urine Specific [place] 1.010 L 1.016-1.022 Urine Protein NEGATIVE NEGATIVE Urine Glucose (UA) NEGATIVE NEGATIVE Urine Ketones NEGATIVE NEGATIVE Urine Nitrite NEGATIVE NEGATIVE Urine Bilirubin NEGATIVE NEGATIVE Urine Urobilinogen NORMAL NORMAL MG/DL Urine Leukocyte Esterase NEGATIVE NEGATIVE Urine RBC (Auto) NEGATIVE NEGATIVE Urine RBC NONE /HPF Urine WBC 0-2 /HPF Urine Squamous Epithelial Cells NONE /HPF Urine Crystals PRESENT H /LPF Urine Amorphous Sediment MOD TARYN PHOSPHATE H /LPF Urine Bacteria NEGATIVE /HPF Urine Casts NONE /LPF Urine Mucus NEGATIVE /LPF Urine Culture Indicated NO White Blood Count 9.4 4.3-11.0 10^3/uL Red Blood Count 5.26 4.35-5.85 10^6/uL Hemoglobin 16.1 13.3-17.7 G/DL Hematocrit 48 40-54 % Mean Corpuscular Volume 91 80-99 FL Mean Corpuscular Hemoglobin 31 25-34 PG Mean Corpuscular Hemoglobin Concent 34 32-36 G/DL Red Cell Distribution Width 14.1 10.0-14.5 % Platelet Count 206 130-400 10^3/uL Mean Platelet Volume 10.7 H 7.4-10.4 FL Neutrophils (%) (Auto) 63 42-75 % Lymphocytes (%) (Auto) 24 12-44 % Monocytes (%) (Auto) 11 0-12 % Eosinophils (%) (Auto) 2 0-10 % Basophils (%) (Auto) 1 0-10 % Neutrophils # (Auto) 5.9 1.8-7.8 X 10^3 Lymphocytes # (Auto) 2.3 1.0-4.0 X 10^3 Monocytes # (Auto) 1.0 0.0-1.0 X 10^3 Eosinophils # (Auto) 0.2 0.0-0.3 10^3/uL Basophils # (Auto) 0.1 0.0-0.1 10^3/uL Sodium Level 139 135-145 MMOL/L Potassium Level 4.4 3.6-5.0 MMOL/L Chloride Level 108 H 98-107 MMOL/L Carbon Dioxide Level 21 21-32 MMOL/L Anion Gap 10 5-14 MMOL/L Blood Urea Nitrogen 16 7-18 MG/DL Creatinine 1.73 H 0.60-1.30 MG/DL Estimat Glomerular Filtration Rate 43 BUN/Creatinine Ratio 9 Glucose Level 89 70-105 MG/DL Calcium Level 10.8 H 8.5-10.1 MG/DL Corrected Calcium 10.4 H 8.5-10.1 MG/DL Total Bilirubin 0.6 0.1-1.0 MG/DL Aspartate Amino Transf (AST/SGOT) 41 H 5-34 U/L Alanine Aminotransferase (ALT/SGPT) 49 0-55 U/L Alkaline Phosphatase 55 40-136 U/L Total Protein 7.3 6.4-8.2 GM/DL Albumin 4.5 3.2-4.5 GM/DL My Orders Orders - STAN CARREON MD Cbc With Automated Diff (10/12/17 09:59) Comprehensive Metabolic Panel (10/12/17 09:59) Ua Culture If Indicated (10/12/17 09:59) Saline Lock/Iv-Start (10/12/17 09:59) Ns Iv 1000 Ml (Sodium Chloride 0.9%) (10/12/17 09:59) Medications Given in ED Current Medications Medications Dose Ordered Sig/Saba Route Start Time Stop Time Status Last Admin Dose Admin Sodium Chloride 1,000 ml @ 0 mls/hr Q0M ONCE IV 10/12/17 09:59 10/12/17 10:00 DC 10/12/17 10:22 1,000 MLS/HR Vital Signs/I&O 10/12/17 09:36 Temp 98.5 Pulse 96 Resp 18 B/P (MAP) 131/106 (114) Capillary Refill : Less Than 3 Seconds Blood Pressure Mean: 114 Progress Note : Progress Note Seen and evaluated. IV, labs and UA ordered. Normal saline 1 L bolus. Monitor patient. 1100: No acute findings. Blood sugar not elevated. Question mild dehydration. Patient states he feels better. Discharged home with return precautions. Patient verbalize understanding instructions and agreement with plan. Departure Impression Primary Impression: Dehydration Additional Impression: Hyperglycemia Disposition: 01 HOME, SELF-CARE Condition: Improved Departure-Patient Inst. Decision time for Depature: 11:06 Referrals: ÁNGEL CASPER MD (PCP/Family) Primary Care Physician Patient Instructions: Dehydration, Adult (DC), Hyperglycemia, Adult (DC) Add. Discharge Instructions: All discharge instructions reviewed with patient and/or family. Voiced understanding. Continue home medications as previously prescribed. Drink plenty of non-sugary fluids. Follow-up with your Dr. in 2-3 days for recheck. Return for worse pain , fever, vomiting, weakness, breathing problems or other concerns as needed. STAN CARREON MD Oct 12, 2017 11:07
[2017-10-12 11:26] VITALS: BP 120/76
== END 2017-10-12 11:26 | disposition home or self-care (01) ==
LOC: EDUNIT# 09:33 → ER 09:34
DX: E86.0 Dehydration (principal); E11.65 Type 2 diabetes mellitus with hyperglycemia; G47.30 Sleep apnea, unspecified; J44.9 Chronic obstructive pulmonary disease, unspecified; E78.00 Pure hypercholesterolemia, unspecified; I10 Essential (primary) hypertension; K21.9 Gastro-esophageal reflux disease without esophagitis; E66.01 Morbid (severe) obesity due to excess calories; F31.9 Bipolar disorder, unspecified; F41.9 Anxiety disorder, unspecified; Z87.448 Personal history of other diseases of urinary system; Z87.442 Personal history of urinary calculi; Z79.51 Long term (current) use of inhaled steroids; Z79.82 Long term (current) use of aspirin; Z79.52 Long term (current) use of systemic steroids; Z79.84 Long term (current) use of oral hypoglycemic drugs; Z87.891 Personal history of nicotine dependence; Z90.49 Acquired absence of other specified parts of digestive tract
CPT/HCPCS: 36415; 80053; 81000; 85025

== ENCOUNTER 2017-12-21 22:25 | Emergency (ER) | payer MEDICAID ==
[~2017-12-21] VITALS: Ht 177.8 cm; Wt 158.8 kg
[~2017-12-21 22:25] MED LIST changes: -BENZ-13 PO; +BENZ100C18 PO; +METF-397 PO; -METF500T5 PO; -ROPI4TAB3 PO; +ROPI4TAB5 PO
--- OUTSIDE RECORDS SUMMARY | 2017-12-21 22:30 | XMS REPORT | Clinical Summary ---
Author Author [facility] Organization [facility] Address Unknown Phone Unavailable Care Team Providers Care Marketing/Sales Person Name Role Phone Carey Boland RN Unavailable Unavailable Self, Referral PCP Unavailable Renny Eisenberg MD Unavailable Source Comments Some departments are not documenting in the electronic medical record. If you do not see the information that you expected, contact Release of Information in the Health Information Management department at [phone] for further assistance in locating additional records.[facility] Allergies No Known Allergies Current [...] SCREENING 1984 TETANUS VACCINE 1986 INFLUENZA VACCINE 10/01/2017 Results Not on filefrom Last 3 Months
[2017-12-21 23:13] LABS: BILIRUBIN,URINE NEGATIVE (NEGATIVE); CLARITY,URINE SLIGHTLY CLOUDY; COLOR,URINE YELLOW; GLUCOSE, URINE (UA) NEGATIVE (NEGATIVE); KETONES,URINE NEGATIVE (NEGATIVE); LEUKOCYTE ESTERASE ,URINE 1+ (NEGATIVE); NITRITE,URINE NEGATIVE (NEGATIVE); PH,URINE 7 (5-9); PROTEIN,URINE NEGATIVE (NEGATIVE); UROBILINOGEN,URINE NORMAL (NORMAL)
[2017-12-21 23:26] LABS: AMORPHOUS SEDIMENT,UR LARGE AMOR PHOSPHATE /LPF; BACTERIA,URINE TRACE /HPF
[2017-12-21] MEDS ORDERED: NS IV 1000 ML 1,000 ML IV ONE (23:57)
[2017-12-22 00:13] LABS: BASOPHILS # (AUTO) 0.1 10^3/uL (0.0-0.1); BASOPHILS % (AUTO) 1 % (0-10); EOSINOPHILS # (AUTO) 0.2 10^3/uL (0.0-0.3); EOSINOPHILS % (AUTO) 2 % (0-10); HEMATOCRIT 47 % (40-54); HEMOGLOBIN 15.8 G/DL (13.3-17.7); LYMPHOCYTES # (AUTO) 2.4 X 10^3 (1.0-4.0); LYMPHOCYTES % (AUTO) 28 % (12-44); MEAN CORPUSCULAR HEMOGLOBIN 31 PG (25-34); MEAN CORPUSCULAR HGB CONC 34 G/DL (32-36); MEAN CORPUSCULAR VOLUME 91 FL (80-99); MEAN PLATELET VOLUME 10.5 FL (7.4-10.4); MONOCYTES # (AUTO) 0.9 X 10^3 (0.0-1.0); MONOCYTES % (AUTO) 11 % (0-12); NEUTROPHILS # (AUTO) 5.1 X 10^3 (1.8-7.8); NEUTROPHILS % (AUTO) 59 % (42-75); PLATELET COUNT 203 10^3/uL (130-400); RED BLOOD COUNT 5.13 10^6/uL (4.35-5.85); RED CELL DISTRIBUTION WIDTH 14.4 % (10.0-14.5); WHITE BLOOD COUNT 8.7 10^3/uL (4.3-11.0)
[2017-12-22 00:30] LABS: CALCIUM 10.1 MG/DL (8.5-10.1); CREATININE SERUM 1.81 MG/DL (0.60-1.30); POTASSIUM 3.7 MMOL/L (3.6-5.0)
--- NOTE | 2017-12-22 00:38 | ED GU-Male ---
General Chief Complaint: -Male Stated Complaint: BURNING WHEN URINATE Nursing Triage Note: Patient advises burning and pain with urination x 1 week. Source: patient Exam Limitations: no limitations History of Present Illness Date Seen by Provider: Dec 21, 2017 Time Seen by Provider: 22:44 Initial Comments This 47-year-old gentleman presents to the emergency room with primary complaint of burning with urination. He reports being ill couple of days ago with diarrhea, subjective fever, and chills. Of those symptoms have improved. He does not have pain before or after urination. He has not noted any hematuria. Patient also later stated he has some difficulty initiating his urine stream. He has seen Dr. Gonzales in the past. His visualizer is Dr. Bauman. His primary care provider is Dr. Casper. Allergies and Home Medications Allergies Coded Allergies: No Known Drug Allergies (Unverified , 12/21/17) Home Medications Acetaminophen 500 Mg Tablet, 500 MG PO Q8H PRN for PAIN-BREAKTHROUGH, (Reported) Acetaminophen/Diphenhydramine 1 Each Tablet, 1 EACH PO HS PRN for SLEEP, ( Reported) Albuterol Sulfate 1 Puff Puff, 2 PUFF IH Q4H PRN for WHEEZING 2 puffs every 4 hours Prescribed by: LOGAN SNELL on 10/16/16 1754 Amitriptyline HCl 50 Mg Tablet, 50 MG PO HS, (Reported) Aripiprazole 20 Mg Tablet, 20 MG PO DAILY, (Reported) Aspirin 81 Mg Tablet.dr, 81 MG PO DAILY, (Reported) Atorvastatin Calcium 40 Mg Tablet, 40 MG PO HS Prescribed by: MIGUEL SARABIA on 07/04/17 1438 Bupropion HCl 100 Mg Tablet, 200 MG PO DAILY, (Reported) Bupropion HCl 100 Mg Tablet, 200 MG PO NOON, (Reported) Cephalexin 500 Mg Capsule, 500 MG PO BID Prescribed by: TRINITY CURRY on 10/03/17 1809 Diclofenac Sod 100 Mg Tab, 100 MG PO DAILY, (Reported) Dicyclomine HCl 10 Mg Capsule, 10 MG PO QID, (Reported) Famotidine 20 Mg Tablet, 20 MG PO BID, (Reported) Fenofibrate,Micronized 145 Mg Tablet, 145 MG PO DAILY, (Reported) Fluticasone/Salmeterol 1 Each Blst.w.dev, 1 EACH IH DAILY, (Reported) Gabapentin 300 Mg Capsule, 300 MG PO HS, (Reported) Hydrocodone/Acetaminophen 1 Each Tablet, 1 EACH PO Q6H PRN for PAIN-MILD TO MODERATE, (Reported) Hyoscyamine Sulfate 0.125 Mg Tablet, 0.125 MG PO QID PRN for SPASMS, (Reported) L.acidoph & ParacaseadamB.lactis 1 Each Capsule, 1 EACH PO DAILY, (Reported) Lisinopril 10 Mg Tablet, 10 MG PO DAILY, (Reported) Loperamide HCl 2 Mg Capsule, 4 MG PO PRN PRN for DIARRHEA, (Reported) Mesalamine 1.2 Gm Tablet.dr, 4.8 GM PO DAILY, (Reported) Metformin HCl 500 Mg Tablet, 500 MG PO BID, (Reported) Metoprolol Tartrate 50 Mg Tablet, 50 MG PO BID, (Reported) Multivitamin 1 Each Tablet, 1 EACH PO DAILY, (Reported) Terry-3 Acid Ethyl Esters 1 Gm Capsule, 2 G PO BID WITH MEALS, (Reported) Pantoprazole Sodium 40 Mg Tablet.dr, 40 MG PO DAILY, (Reported) Ropinirole HCl 4 Mg Tablet, 4 MG PO TID, (Reported) Sucralfate 1 Gm Tab, 1 GM PO UD TAKE BEFORE EACH MEAL AND AT BEDTIME FOR STOMACH Prescribed by: KIT JOHNSON on 10/18/132110 Topiramate 200 Mg Tablet, 200 MG PO BID, (Reported) Tramadol HCl 50 Mg Tablet, 50 MG PO QID Prescribed by: RUDY MEREDITH on 08/25/17 0131 Patient Home Medication List Home Medication List Reviewed: Yes Review of Systems Review of Systems Constitutional: see HPI EENTM: no symptoms reported Respiratory: no symptoms reported Cardiovascular: no symptoms reported Gastrointestinal: see HPI Genitourinary: see HPI, burning Musculoskeletal: no symptoms reported Skin: no symptoms reported Psychiatric/Neurological: No Symptoms Reported Endocrine: No Symptoms Reported Hematologic/Lymphatic: No Symptoms Reported Past [id number]-Wofyzk Hx Past Med/Social Hx: Reviewed Nursing Past Med/Soc Hx Patient Social History Alcohol Use: Occasionally Uses Number of Drinks Today: AA Alcohol Beverage of Choice: Beer Recreational Drug Use: No Drug of Choice: Hx of SPEED, COCAINE usage Smoking Status: Current Everyday Smoker Type Used: Cigarettes Former Smoker, Quit: Jun 04, 2017 Recent Foreign Travel: No Contact w/Someone Who Travel: No Recent Infectious Disease Expo: No Recent Hopitalizations: Yes Immunizations Up To Date Tetanus Booster (TDap): Unknown PED Vaccines UTD: No Date of Influenza Vaccine: Dec 01, 2013 Seasonal Allergies Seasonal Allergies: No Past Medical History Surgeries: Yes (LAP EVELIO, BACK SURGERY, FINGER; LITHOTRIPSY ) Cardiac, Gallbladder, Orthopedic, Renal Respiratory: Yes (C-PAP MACHINE) Sleep Apnea, COPD Currently Using CPAP: Yes Currently Using BIPAP: No Cardiac: Yes High Cholesterol, Hypertension Neurological: No Reproductive Disorders: No Sexually Transmitted Disease: No HIV/AIDS: No Genitourinary: Yes Kidney Stones, Renal Failure Gastrointestinal: Yes (S/P EVELIO; FATTY LIVER ON CT. ) Colitis, Gastroesophageal Reflux, Gall Bladder Disease Musculoskeletal: Yes Arthritis, Chronic Back Pain Endocrine: Yes (MORBID OBESITY) Diabetes, Non-Insulin dep HEENT: Yes (POOR DENTITION) Cancer: No Psychosocial: Yes (BIPOLAR, POLYSUBSTANCE ABUSE) Anxiety, Bipolar, Depression Integumentary: No Blood Disorders: No Adverse Reaction/Blood Tranf: No Family Medical History DVT 19 MOTHER, , Onset:Unknown Diabetes mellitus 19 MOTHER, , Onset:Unknown G8 BROTHER, Onset:Unknown FH: gastric ulcer 19 FATHER, Onset:Unknown Physical Exam Vital Signs Vital Signs - First Documented 12/21/17 12/22/17 23:05 01:00 Temp 97.7 Pulse 67 Resp 14 B/P (MAP) 120/76 (91) Pulse Ox 96 O2 Delivery Room Air Capillary Refill : Less Than 3 Seconds Height, Weight, BMI Height: 5'10.00" Weight: 350lbs. 0.4oz. 158.376080hl; 51.8 BMI Method:Stated General Appearance: WD/WN, no apparent distress HEENT: PERRL/EOMI, normal ENT inspection Neck: normal inspection Cardiovascular: regular rate, rhythm, no edema, no murmur Respiratory: lungs clear, normal breath sounds, no respiratory distress, no accessory muscle use Gastrointestinal: non tender, soft Extremities: normal inspection, no pedal edema Neurologic/Psychiatric: ditch rider II-XII nml as tested, no motor/sensory deficits, alert, normal mood/affect, oriented x 3 Skin: normal color, warm/dry Progress/Results/Core Measures Suspected Sepsis Recent Fever Within 48 Hours: No Infection Criteria Present: None New/Unexplained Altered Menta: No Sepsis Screen: No Definite Risk SIRS Temperature: Pulse: 67 Respiratory Rate: 14 Laboratory Tests 12/21/17 00:05: White Blood Count 8.7 Blood Pressure 120 /76 Mean: 91 Laboratory Tests 12/21/17 00:05: Creatinine 1.81H, Platelet Count 203 Results/Orders Lab Results Laboratory Tests Test 12/21/17 00:05 12/21/17 22:26 12/21/17 23:03 12/22/17 00:05 Range/Units White Blood Count 8.7 4.3-11.0 10^3/uL Red Blood Count 5.13 4.35-5.85 10^6/uL Hemoglobin 15.8 13.3-17.7 G/DL Hematocrit 47 40-54 % Mean Corpuscular Volume 91 80-99 FL Mean Corpuscular Hemoglobin 31 25-34 PG Mean Corpuscular Hemoglobin Concent 34 32-36 G/DL Red Cell Distribution Width 14.4 10.0-14.5 % Platelet Count 203 130-400 10^3/uL Mean Platelet Volume 10.5 H 7.4-10.4 FL Neutrophils (%) (Auto) 59 42-75 % Lymphocytes (%) (Auto) 28 12-44 % Monocytes (%) (Auto) 11 0-12 % Eosinophils (%) (Auto) 2 0-10 % Basophils (%) (Auto) 1 0-10 % Neutrophils # (Auto) 5.1 1.8-7.8 X 10^3 Lymphocytes # (Auto) 2.4 1.0-4.0 X 10^3 Monocytes # (Auto) 0.9 0.0-1.0 X 10^3 Eosinophils # (Auto) 0.2 0.0-0.3 10^3/uL Basophils # (Auto) 0.1 0.0-0.1 10^3/uL Sodium Level 138 135-145 MMOL/L Potassium Level 3.7 3.6-5.0 MMOL/L Chloride Level 105 98-107 MMOL/L Carbon Dioxide Level 20 L 21-32 MMOL/L Anion Gap 13 5-14 MMOL/L Blood Urea Nitrogen 12 7-18 MG/DL Creatinine 1.81 H 0.60-1.30 MG/DL Estimat Glomerular Filtration Rate 40 BUN/Creatinine Ratio 7 Glucose Level 112 H 70-105 MG/DL Calcium Level 10.1 8.5-10.1 MG/DL Lab Scanned Report Referred Lab Report [id number] Urine Color YELLOW Urine Clarity SLIGHTLY CLOUDY Urine pH 7 5-9 Urine Specific [place] 1.010 L 1.016-1.022 Urine Protein NEGATIVE NEGATIVE Urine Glucose (UA) NEGATIVE NEGATIVE Urine Ketones NEGATIVE NEGATIVE Urine Nitrite NEGATIVE NEGATIVE Urine Bilirubin NEGATIVE NEGATIVE Urine Urobilinogen NORMAL NORMAL MG/DL Urine Leukocyte Esterase 1+ H NEGATIVE Urine RBC (Auto) NEGATIVE NEGATIVE Urine RBC NONE /HPF Urine WBC 2-5 /HPF Urine Squamous Epithelial Cells 5-10 /HPF Urine Crystals PRESENT H /LPF Urine Amorphous Sediment LARGE TARYN PHOSPHATE H /LPF Urine Bacteria TRACE /HPF Urine Casts PRESENT /LPF Urine Coarse Granular Casts 10-25 H /LPF Urine Mucus NEGATIVE /LPF Urine Culture Indicated YES Prostate Specific Antigen 0.42 0.00-4.00 ng/mL Micro Results Microbiology 12/21/17 Urine Culture - Final, Complete NO GROWTH My Orders Orders - RUDY BARRETO MD Ua Culture If Indicated (12/21/17 22:44) Urine Culture (12/21/17 23:03) Basic Metabolic Panel (12/21/17 23:57) Cbc With Automated Diff (12/21/17 23:57) Saline Lock/Iv-Start (12/21/17 23:57) Ns Iv 1000 Ml (Sodium Chloride 0.9%) (12/21/17 23:57) Psa Screen (12/22/17 00:46) Medications Given in ED Vital Signs/I&O 12/21/17 12/22/17 23:05 01:00 Temp 97.7 Pulse 67 92 Resp 14 16 B/P (MAP) 120/76 (91) 120/76 (91) Pulse Ox 96 95 O2 Delivery Room Air Room Air Capillary Refill : Less Than 3 Seconds Blood Pressure Mean: 91 Progress Note : Progress Note Patient was initially assessed with urinalysis. He had a significant amount of crystals in the urine which raise concern for his renal function. Labs were then obtained. He was found to have a small increase in his creatinine above baseline. He was hydrated with a liter of IV fluids. I believe his burning is likely due to the presence of crystals and concentrated urine. He was advised to follow-up with his visualizer and urologist for further evaluation. A PSA was obtained to further evaluate his urinary hesitance. Departure Impression Primary Impression: Dysuria Additional Impressions: Chronic kidney disease Qualified Codes: N18.9 - Chronic kidney disease, unspecified Urinary crystals Diarrhea Qualified Codes: R19.7 - Diarrhea, unspecified Urinary hesitancy Disposition: 01 HOME, SELF-CARE Condition: Improved Departure-Patient Inst. Referrals: ÁNGEL CASPER MD (PCP/Family) Primary Care Physician LINO GONZALES MD Patient Instructions: Chronic Kidney Disease Add. Discharge Instructions: Drink plenty of clear liquids. Follow-up with your primary care provider and it your kidney specialist as soon as possible. Your urine test was not convincing for infection but a culture is being performed. If it is positive for infection you will need to be treated with antibiotics. Return to care or call your doctor if you have worsening symptoms. Follow -up with Dr. Gonzales this week about your difficulties urinating. All discharge instructions reviewed with patient and/or family. Voiced understanding. Copy Copies To 1: ÁNGEL CASPER MD Copies To 2: LINO GONZALES MD, JOSHUA T MD Dec 22, 2017 00:38
[2017-12-22 01:00] VITALS: BP 120/76
== END 2017-12-22 00:59 | disposition home or self-care (01) ==
LOC: EDUNIT# 22:25 → ER 22:26
DX: E11.22 Type 2 diabetes mellitus with diabetic chronic kidney disease (principal); I12.9 Hypertensive chronic kidney disease with stage 1 through stage 4 chronic kidney disease, or unspecified chronic kidney disease; N18.9 Chronic kidney disease, unspecified; R82.998 Other abnormal findings in urine; R30.0 Dysuria; R39.11 Hesitancy of micturition; G47.30 Sleep apnea, unspecified; J44.9 Chronic obstructive pulmonary disease, unspecified; E78.00 Pure hypercholesterolemia, unspecified; K21.9 Gastro-esophageal reflux disease without esophagitis; E66.01 Morbid (severe) obesity due to excess calories; F41.9 Anxiety disorder, unspecified; F31.9 Bipolar disorder, unspecified; Z87.19 Personal history of other diseases of the digestive system; Z87.891 Personal history of nicotine dependence; Z90.49 Acquired absence of other specified parts of digestive tract; Z87.442 Personal history of urinary calculi; Z79.51 Long term (current) use of inhaled steroids; Z79.84 Long term (current) use of oral hypoglycemic drugs; Z79.82 Long term (current) use of aspirin
CPT/HCPCS: 36415; 80048; 81000; 84153; 85025; 87088

== ENCOUNTER → 2018-02-06 | Outpatient (CLI) | payer MEDICAID ==
[~2018-02-06] MED LIST changes: +METR-143 PO; -METR250T32 PO
[2018-02-06 16:07] LABS: ALBUMIN 4.2 GM/DL (3.2-4.5); CALCIUM 9.6 MG/DL (8.5-10.1); CREATININE SERUM 1.57 MG/DL (0.60-1.30); PHOSPHORUS 2.5 MG/DL (2.3-4.7); POTASSIUM 2.9 MMOL/L (3.6-5.0)
== END ==
LOC: LAB 15:17
PROVIDERS: ATTEND Internal Medicine Nephrology
DX: I12.9 Hypertensive chronic kidney disease with stage 1 through stage 4 chronic kidney disease, or unspecified chronic kidney disease (principal); N18.3 Chronic kidney disease, stage 3 (moderate); N20.0 Calculus of kidney; R60.0 Localized edema
CPT/HCPCS: 36415; 80069

== ENCOUNTER 2018-03-13 19:56 | Emergency (ER) | payer MEDICAID ==
[~2018-03-13] VITALS: Ht 177.8 cm; Wt 158.8 kg
[2018-03-13] MEDS ORDERED: ANTACID SUSP 30 ML UDC (MYLANTA) PO ONE (20:15)
[2018-03-13] MEDS ORDERED: LIDOCAINE 2% VISCOUS 15 ML UDC PO ONE (20:15)
[2018-03-13 20:16] LABS: BASOPHILS # (AUTO) 0.1 10^3/uL (0.0-0.1); BASOPHILS % (AUTO) 1 % (0-10); EOSINOPHILS # (AUTO) 0.2 10^3/uL (0.0-0.3); EOSINOPHILS % (AUTO) 2 % (0-10); HEMATOCRIT 48 % (40-54); HEMOGLOBIN 15.8 G/DL (13.3-17.7); LYMPHOCYTES # (AUTO) 2.5 X 10^3 (1.0-4.0); LYMPHOCYTES % (AUTO) 28 % (12-44); MEAN CORPUSCULAR HEMOGLOBIN 30 PG (25-34); MEAN CORPUSCULAR HGB CONC 33 G/DL (32-36); MEAN CORPUSCULAR VOLUME 90 FL (80-99); MEAN PLATELET VOLUME 11.2 FL (7.4-10.4); MONOCYTES # (AUTO) 0.8 X 10^3 (0.0-1.0); MONOCYTES % (AUTO) 9 % (0-12); NEUTROPHILS # (AUTO) 5.4 X 10^3 (1.8-7.8); NEUTROPHILS % (AUTO) 60 % (42-75); PLATELET COUNT 201 10^3/uL (130-400); RED BLOOD COUNT 5.29 10^6/uL (4.35-5.85); RED CELL DISTRIBUTION WIDTH 14.2 % (10.0-14.5)
[2018-03-13 20:39] LABS: INR 2.1 (0.8-1.4); PROTHROMBIN TIME PATIENT 23.8 SEC (12.2-14.7)
[2018-03-13 20:48] LABS: ALANINE AMINOTRANSFERASE 34 U/L (0-55); ALBUMIN 4.3 GM/DL (3.2-4.5); ALKALINE PHOSPHATASE 67 U/L (40-136); AMYLASE 42 U/L (25-125); BILIRUBIN,TOTAL 0.6 MG/DL (0.1-1.0); BUN/CREATININE RATIO 11; CALCIUM 9.7 MG/DL (8.5-10.1); CARBON DIOXIDE 22 MMOL/L (21-32); CHLORIDE 105 MMOL/L (98-107); CREATINE KINASE 164 U/L (30-200); CREATININE SERUM 1.54 MG/DL (0.60-1.30); GFR ESTIMATED 48; GLUCOSE 82 MG/DL (70-105); LIPASE 40 U/L (8-78); MAGNESIUM 2.3 MG/DL (1.8-2.4); POTASSIUM 4.2 MMOL/L (3.6-5.0); SODIUM 140 MMOL/L (135-145); TOTAL PROTEIN 7.5 GM/DL (6.4-8.2)
[2018-03-13 20:54] LABS: MYOGLOBIN SERUM 100.5 NG/ML (10.0-92.0)
--- NOTE | 2018-03-13 21:01 | Diagnostic Imaging Report ---
EXAM: CHEST 1 VIEW, AP/PA ONLY INDICATION: Chest pain. COMPARISON: Chest radiographs 08/25/2017. FINDINGS: Stable cardiomegaly. Mild atelectasis in the lung bases. No pleural effusion or pneumothorax. No acute osseous findings. IMPRESSION: Low lung volumes with mild atelectasis in the lung bases is similar to the prior exam. Stable cardiomegaly. Dictated by: Dictated on workstation # [id number]
[2018-03-13] MEDS ORDERED: CYCLOBENZAPRINE 10 MG (FLEXERIL) TAB PO STA (21:16)
[2018-03-13] MEDS ORDERED: KETOROLAC 30 MG/ML VIAL IVP STA (21:16)
--- NOTE | 2018-03-13 21:25 | ED Chest Pain ---
General Chief Complaint: Chest Wall/Rib Pain Stated Complaint: CP Nursing Triage Note: TO ED VIA EMS. C/O STERNAL BORDER CP WHILE COOKING DINNER THIS EVENING. DENIES PAIN AT THIS TIME, BUT PAIN REPRODUCIBLE ON PALPATION. Nursing Sepsis Screen: No Definite Risk History of Present Illness Date Seen by Provider: Mar 13, 2018 Time Seen by Provider: 19:55 Initial Comments 47-year-old morbidly obese male presents for right chest wall pain. Patient reports he was cooking dinner, he had a few bites and began having discomfort all along the right sternal border. He was able to palpate the pain. He also had mild dizziness but no diaphoresis, nausea or vomiting. He has had a previous heart catheterization by Dr. Bauman and other area IN the emergency department that have been negative. He took aspirin this morning. He denies any left chest pain or any pain that radiates into either extremity. Timing/Duration: 1-3 hours Severity/Quality: mild Location: central (and right sternal border) Radiation: no radiation Activities at Onset: activity (cooking) Prior CP/Workup: cardiac cath Modifying Factors: improves with lying down ASA po PUNCH PRESS OPERATOR: No NTG SL PUNCH PRESS OPERATOR: No Associated Symptoms: denies symptoms Allergies and Home Medications Allergies Coded Allergies: No Known Drug Allergies (Unverified , 12/21/17) Home Medications Acetaminophen 500 Mg Tablet, 500 MG PO Q8H PRN for PAIN-BREAKTHROUGH, (Reported) Acetaminophen/Diphenhydramine 1 Each Tablet, 1 EACH PO HS PRN for SLEEP, ( Reported) Albuterol Sulfate 1 Puff Puff, 2 PUFF IH Q4H PRN for WHEEZING 2 puffs every 4 hours Prescribed by: LOGAN SNELL on 10/16/16 1754 Amitriptyline HCl 50 Mg Tablet, 50 MG PO HS, (Reported) Aripiprazole 20 Mg Tablet, 20 MG PO DAILY, (Reported) Aspirin 81 Mg Tablet.dr, 81 MG PO DAILY, (Reported) Atorvastatin Calcium 40 Mg Tablet, 40 MG PO HS Prescribed by: MIGUEL SARABIA on 07/04/17 1438 Bupropion HCl 100 Mg Tablet, 200 MG PO DAILY, (Reported) Bupropion HCl 100 Mg Tablet, 200 MG PO NOON, (Reported) Cephalexin 500 Mg Capsule, 500 MG PO BID Prescribed by: TRINITY CURRY on 10/03/17 1809 Cyclobenzaprine HCl 10 Mg Tablet, 20 MG PO Q8H PRN for SPASMS Prescribed by: GREMÁN GARCIA on 03/13/182225 Diclofenac Sod 100 Mg Tab, 100 MG PO DAILY, (Reported) Dicyclomine HCl 10 Mg Capsule, 10 MG PO QID, (Reported) Famotidine 20 Mg Tablet, 20 MG PO BID, (Reported) Fenofibrate,Micronized 145 Mg Tablet, 145 MG PO DAILY, (Reported) Fluticasone/Salmeterol 1 Each Blst.w.dev, 1 EACH IH DAILY, (Reported) Gabapentin 300 Mg Capsule, 300 MG PO HS, (Reported) Hydrocodone/Acetaminophen 1 Each Tablet, 1 EACH PO Q6H PRN for PAIN-MILD TO MODERATE, (Reported) Hyoscyamine Sulfate 0.125 Mg Tablet, 0.125 MG PO QID PRN for SPASMS, (Reported) L.acidoph & Paracasei,B.lactis 1 Each Capsule, 1 EACH PO DAILY, (Reported) Lisinopril 10 Mg Tablet, 10 MG PO DAILY, (Reported) Loperamide HCl 2 Mg Capsule, 4 MG PO PRN PRN for DIARRHEA, (Reported) Mesalamine 1.2 Gm Tablet.dr, 4.8 GM PO DAILY, (Reported) Metformin HCl 500 Mg Tablet, 500 MG PO BID, (Reported) Metoprolol Tartrate 50 Mg Tablet, 50 MG PO BID, (Reported) Multivitamin 1 Each Tablet, 1 EACH PO DAILY, (Reported) [place]-3 Acid Ethyl Esters 1 Gm Capsule, 2 G PO BID WITH MEALS, (Reported) Pantoprazole Sodium 40 Mg Tablet.dr, 40 MG PO DAILY, (Reported) Ropinirole HCl 4 Mg Tablet, 4 MG PO TID, (Reported) Sucralfate 1 Gm Tab, 1 GM PO UD TAKE BEFORE EACH MEAL AND AT BEDTIME FOR STOMACH Prescribed by: KIT JOHNSON on 10/18/132110 Topiramate 200 Mg Tablet, 200 MG PO BID, (Reported) Tramadol HCl 50 Mg Tablet, 50 MG PO QID Prescribed by: RUDY MEREDITH on 08/25/17 0131 Patient Home Medication List Home Medication List Reviewed: Yes Review of Systems Review of Systems Constitutional: no symptoms reported, see HPI Cardiovascular: See HPI, Chest Pain (chest wall pain) All Other Systems Reviewed Negative Unless Noted: Yes Past Jldubdi-Xxzine-Jcusqe Hx Past Med/Social Hx: Reviewed Nursing Past Med/Soc Hx Patient Social History Alcohol Use: Occasionally Uses Number of Drinks Today: AA Alcohol Beverage of Choice: Beer Recreational Drug Use: No Drug of Choice: Hx of SPEED, COCAINE usage Type Used: Cigarettes Former Smoker, Quit: Jun 04, 2017 Recent Foreign Travel: No Contact w/Someone Who Travel: No Recent Infectious Disease Expo: No Recent Hopitalizations: No Immunizations Up To Date Tetanus Booster (TDap): Unknown PED Vaccines UTD: No Date of Influenza Vaccine: Jan 01, 2018 Seasonal Allergies Seasonal Allergies: No Past Medical History Surgeries: Yes (LAP EVELIO, BACK SURGERY, FINGER; LITHOTRIPSY ) Cardiac, Gallbladder, Orthopedic, Renal Respiratory: Yes (C-PAP MACHINE) Sleep Apnea, COPD Currently Using CPAP: Yes Currently Using BIPAP: No Cardiac: Yes High Cholesterol, Hypertension Neurological: No Reproductive Disorders: No Sexually Transmitted Disease: No HIV/AIDS: No Genitourinary: Yes Kidney Stones, Renal Failure Gastrointestinal: Yes (S/P EVELIO; FATTY LIVER ON CT. ) Colitis, Gastroesophageal Reflux, Gall Bladder Disease Musculoskeletal: Yes Arthritis, Chronic Back Pain Endocrine: Yes (MORBID OBESITY) Diabetes, Non-Insulin dep HEENT: Yes (POOR DENTITION) Cancer: No Psychosocial: Yes (BIPOLAR, POLYSUBSTANCE ABUSE) Anxiety, Bipolar, Depression Integumentary: No Blood Disorders: No Adverse Reaction/Blood Tranf: No Family Medical History DVT 19 MOTHER, , Onset:Unknown Diabetes mellitus 19 MOTHER, , Onset:Unknown G8 BROTHER, Onset:Unknown FH: gastric ulcer 19 FATHER, Onset:Unknown Physical Exam Vital Signs Vital Signs - First Documented 03/13/18 03/13/18 19:57 22:48 Temp 97.9 Pulse 91 Resp 19 B/P (MAP) 140/97 (111) Pulse Ox 98 Capillary Refill : Less Than 3 Seconds Height, Weight, BMI Height: 5'10.00" Weight: 350lbs. 0.4oz. 158.923251bc; 51.8 BMI Method:Stated General Appearance: No Apparent Distress, WD/WN, Obese HEENT: PERRL/EOMI, TMs Normal, Normal ENT Inspection, Pharynx Normal Neck: Full Range of Motion, Normal Inspection, Non Tender, Supple Respiratory: Chest Non Tender, Lungs Clear, Normal Breath Sounds Cardiovascular: Regular Rate, Rhythm, No JVD, No Murmur, Normal Peripheral Pulses Gastrointestinal: Normal Bowel Sounds, Non Tender, Soft Extremity: Normal Capillary Refill, Normal Inspection, Normal Range of Motion, Non Tender Neurologic/Psychiatric: Alert, Oriented x3, No Motor/Sensory Deficits, Normal Mood/Affect Skin: Normal Color, Warm/Dry; No Diaphoresis Lymphatic: No Adenopathy Progress/Results/Core Measures Results/Orders Lab Results Laboratory Tests Test 03/13/18 19:57 03/13/18 20:21 03/13/18 22:10 Range/Units White Blood Count 9.0 4.3-11.0 10^3/uL Red Blood Count 5.29 4.35-5.85 10^6/uL Hemoglobin 15.8 13.3-17.7 G/DL Hematocrit 48 40-54 % Mean Corpuscular Volume 90 80-99 FL Mean Corpuscular Hemoglobin 30 25-34 PG Mean Corpuscular Hemoglobin Concent 33 32-36 G/DL Red Cell Distribution Width 14.2 10.0-14.5 % Platelet Count 201 130-400 10^3/uL Mean Platelet Volume 11.2 H 7.4-10.4 FL Neutrophils (%) (Auto) 60 42-75 % Lymphocytes (%) (Auto) 28 12-44 % Monocytes (%) (Auto) 9 0-12 % Eosinophils (%) (Auto) 2 0-10 % Basophils (%) (Auto) 1 0-10 % Neutrophils # (Auto) 5.4 1.8-7.8 X 10^3 Lymphocytes # (Auto) 2.5 1.0-4.0 X 10^3 Monocytes # (Auto) 0.8 0.0-1.0 X 10^3 Eosinophils # (Auto) 0.2 0.0-0.3 10^3/uL Basophils # (Auto) 0.1 0.0-0.1 10^3/uL Sodium Level 140 135-145 MMOL/L Potassium Level 4.2 3.6-5.0 MMOL/L Chloride Level 105 98-107 MMOL/L Carbon Dioxide Level 22 21-32 MMOL/L Anion Gap 13 5-14 MMOL/L Blood Urea Nitrogen 17 7-18 MG/DL Creatinine 1.54 H 0.60-1.30 MG/DL Estimat Glomerular Filtration Rate 48 BUN/Creatinine Ratio 11 Glucose Level 82 70-105 MG/DL Calcium Level 9.7 8.5-10.1 MG/DL Corrected Calcium 9.5 8.5-10.1 MG/DL Magnesium Level 2.3 1.8-2.4 MG/DL Total Bilirubin 0.6 0.1-1.0 MG/DL Aspartate Amino Transf (AST/SGOT) 37 H 5-34 U/L Alanine Aminotransferase (ALT/SGPT) 34 0-55 U/L Alkaline Phosphatase 67 40-136 U/L Total Creatine Kinase 164 30-200 U/L Myoglobin 100.5 H 10.0-92.0 NG/ML Troponin I < 0.028 < 0.028 <0.028 NG/ML Total Protein 7.5 6.4-8.2 GM/DL Albumin 4.3 3.2-4.5 GM/DL Amylase Level 42 25-125 U/L Lipase 40 8-78 U/L Prothrombin Time 23.8 H 12.2-14.7 SEC INR Comment 2.1 H 0.8-1.4 Activated Partial Thromboplast Time 32 24-35 SEC My Orders Orders - JOSE,GERMÁN SHIRT PRESSER Cbc With Automated Diff (03/13/18 20:10) Magnesium (03/13/18 20:10) Chest 1 View, Ap/Pa Only (03/13/18 20:10) Ekg Tracing (03/13/18 20:10) Cardiac Profile 1 (03/13/18 20:10) Comprehensive Metabolic Panel (03/13/18 20:10) Myoglobin Serum (03/13/18 20:10) Protime With Inr (03/13/18 20:10) Partial Thromboplastin Time (03/13/18 20:10) Monitor-Rhythm Ecg Trace Only (03/13/18 20:10) Saline Lock/Iv-Start (03/13/18 20:10) Creatine Kinase (03/13/18 20:10) Lipase (03/13/18 20:10) Amylase (03/13/18 20:10) Lidocaine 2% Viscous 15 Ml (Xylocaine Vi (03/13/18 20:15) Antacid Suspension (Mylanta Suspension (03/13/18 20:15) Cyclobenzaprine Tablet (Flexeril Tablet) (03/13/18 21:16) Ketorolac Injection (Toradol Injection) (03/13/18 21:16) Troponin I (03/13/18 21:58) Medications Given in ED Current Medications Medications Dose Ordered Sig/Saba Route Start Time Stop Time Status Last Admin Dose Admin Al Hydrox/Mg Hydrox/Simethicone 30 ml ONCE ONCE PO 03/13/18 20:15 03/13/18 20:16 DC 03/13/18 20:20 30 ML Lidocaine HCl 15 ml ONCE ONCE PO 03/13/18 20:15 03/13/18 20:16 DC 03/13/18 20:20 15 ML Vital Signs/I&O 03/13/18 03/13/18 19:57 22:48 Temp 97.9 97.9 Pulse 91 91 Resp 19 B/P (MAP) 140/97 (111) 138/70 (92) Pulse Ox 98 Blood Pressure Mean: 111 Progress Progress Note : Time: 19:55 Progress Note Patient seen and evaluated, cardiac workup began for chest pain protocol. Patient took aspirin this morning, since his symptoms are palpable to touch the pain, we will not give additional aspirin. Will give GI cocktail. 2044 patient's labs, EKG and exam were reviewed with Dr. Townsend, agreed with treatment and plan of care. Patient reports symptoms to be improving however he did not notice much difference after the GI cocktail. 2099 patient symptoms seemed to be more musculoskeletal than cardiac in nature, will give cyclobenzaprine and Toradol. EDACS 8: Low risk by the EDACS Score. If the patient also has: (1) EKG without new ischemic changes and (2) negative initial and 2-hour troponins, then this patient is safe for discharge to early outpatient follow-up investigation (or proceed to earlier inpatient testing). If EKG with ischemic changes or positive troponin, they are not low risk and require normal risk stratification. 2129 patient reports symptoms are improving since taking the cyclobenzaprine and Toradol. We will get a repeat troponin at 0. 2214 repeat troponin negative, discharge instructions and return precautions reviewed with the patient and he agreed with this treatment plan. Initial ECG Impression Date: Mar 13, 2018 Initial ECG Impression Time: 19:59 Initial ECG Rate: 93 Initial ECG Rhythm: Normal Sinus Initial ECG Intervals: Normal Initial ECG Intervals MN to 12, QRSD 92, QT 336, QTC 418. [place] P 63, QRS 98, T 30. Initial ECG Impression: 1st Degree AV Block Initial ECG Comparisson: Changed Comment No ST elevation. Reviewed EKG with Dr. Townsend, concurred with interpretation. Diagnostic Imaging Diagonstic Imaging: Xray Plain Films/CT/US/NM/MRI: chest Comments NAME: [facility] REC#: [id number] PT STATUS: REG ER : 1970 PHYSICIAN: GERMÁN GARCIA ADMIT DATE: 03/13/18/ER Draft Date of Exam:03/13/18 CHEST 1 VIEW, AP/PA ONLY EXAM: CHEST 1 VIEW, AP/PA ONLY INDICATION: Chest pain. COMPARISON: Chest radiographs 08/25/2017. FINDINGS: Stable cardiomegaly. Mild atelectasis in the lung bases. No pleural effusion or pneumothorax. No acute osseous findings. IMPRESSION: Low lung volumes with mild atelectasis in the lung bases is similar to the prior exam. Stable cardiomegaly. Dictated on workstation # [id number] Dict: 03/13/182056 Trans: 03/13/18 2100 SHERIF [id number] Interpreted by: KEATON LYNN MD Electronically signed by: Reviewed: Reviewed by Me Departure Impression Primary Impression: Chest pain Qualified Codes: R07.82 - Intercostal pain Disposition: HOME, SELF-CARE Condition: Improved Departure-Patient Inst. Decision time for Depature: 22:30 Referrals: ÁNGEL CASPER MD (PCP/Family) Primary Care Physician Patient Instructions: Chest Pain That Is Not Caused by the Heart (DC), Costochondritis (DC) Add. Discharge Instructions: You may take ibuprofen 600 mg every 8 hours for pain Alternate between ice pack and warm moist compression to the area of discomfort , every 2 hours while awake. Your visit prescription for cyclobenzaprine, and muscle relaxant. You may take it every 8 hours for discomfort. Follow-up with your primary care provider in 2-3 days if symptoms are not improving or worsen. Return to emergency department for chest pain that is persistent or associated with nausea, vomiting, or sweating; New injuries or concerns. All discharge instructions reviewed with patient and/or family. Voiced understanding. Scripts Cyclobenzaprine HCl (Cyclobenzaprine HCl) 10 Mg Tablet 20 MG PO Q8H PRN for SPASMS, #30 TAB 0 Refills Prov: GERMÁN GARCIA 03/13/18 GERMÁN GARCIA Mar 13, 2018 21:25
[2018-03-13] MEDS ORDERED: CYCL10TA9 PO (22:26)
[2018-03-13 22:48] VITALS: BP 138/70
== END 2018-03-13 22:51 | disposition home or self-care (01) ==
LOC: EDUNIT# 19:56 → ER 19:56
DX: R07.89 Other chest pain (principal); G47.30 Sleep apnea, unspecified; J44.9 Chronic obstructive pulmonary disease, unspecified; E78.00 Pure hypercholesterolemia, unspecified; I10 Essential (primary) hypertension; K21.9 Gastro-esophageal reflux disease without esophagitis; E66.01 Morbid (severe) obesity due to excess calories; E11.9 Type 2 diabetes mellitus without complications; F41.9 Anxiety disorder, unspecified; F31.9 Bipolar disorder, unspecified; F19.10 Other psychoactive substance abuse, uncomplicated; Z87.19 Personal history of other diseases of the digestive system; Z87.442 Personal history of urinary calculi; Z79.82 Long term (current) use of aspirin; Z79.51 Long term (current) use of inhaled steroids; Z79.84 Long term (current) use of oral hypoglycemic drugs; Z87.891 Personal history of nicotine dependence; Z90.49 Acquired absence of other specified parts of digestive tract; Z68.43 Body mass index [BMI] 50.0-59.9, adult; Z98.890 Other specified postprocedural states
CPT/HCPCS: 36415; 71045; 80053; 82150; 82550; 83690; 83735; 83874; 84484; 85025; 85610; 85730; 93005; 93041

== ENCOUNTER → 2018-03-31 | Outpatient (CLI) | payer MEDICAID ==
[2018-03-31 17:07] LABS: CALCIUM 9.9 MG/DL (8.5-10.1); CREATININE SERUM 1.41 MG/DL (0.60-1.30); POTASSIUM 3.5 MMOL/L (3.6-5.0)
== END ==
LOC: LAB 16:33
PROVIDERS: ATTEND Urology
DX: N40.1 Benign prostatic hyperplasia with lower urinary tract symptoms (principal)
CPT/HCPCS: 36415; 80048; 84153; 84403

== ENCOUNTER 2018-04-07 09:27 | Emergency (ER) | payer MEDICAID ==
[~2018-04-07] VITALS: Ht 177.8 cm; Wt 158.8 kg
--- NOTE | 2018-04-07 11:27 | ED Lower Extremity ---
General Chief Complaint: Lower Extremity Stated Complaint: LEFT KNEE INJ Nursing Triage Note: AMB TO ROOM C/O L KNEE PAIN FOR LONG TIME SAW [facility] YESTERDAY WAS TOLD TO FOLLOW UP WITH Garett PEREZ APRN REPORTS UNABLE TO GET APPOINT AT THIS TIME. NO INJURY TO KNEE THAT HE REMEMBERS. OUT OF PAIN MEDS Nursing Sepsis Screen: No Definite Risk Source: patient Exam Limitations: no limitations History of Present Illness Date Seen by Provider: Apr 07, 2018 Time Seen by Provider: 11:15 Initial Comments 47-year-old male who presents to the emergency room with complaints of left knee pain for the past week. He reports that he injured the knee when he was stepping up onto a fence. He reports seen [facility] yesterday and was told to follow-up with Dr. Horne. He reports that he is unable to get an appointment at this time. He denies having any imaging to the knee. He reports that someone did still all of his prescribed hydrocodone but he denies need for pain medication at this time. Onset: just prior to arrival Pain/Injury Location: left knee Method of Injury: twisted Modifying Factors: Worse With Movement Allergies and Home Medications Allergies Coded Allergies: No Known Drug Allergies (Unverified , 12/21/17) Home Medications Acetaminophen 500 Mg Tablet, 500 MG PO Q8H PRN for PAIN-BREAKTHROUGH, (Reported) Acetaminophen/Diphenhydramine 1 Each Tablet, 1 EACH PO HS PRN for SLEEP, ( Reported) Albuterol Sulfate 1 Puff Puff, 2 PUFF IH Q4H PRN for WHEEZING 2 puffs every 4 hours Prescribed by: LOGAN SNELL on 10/16/16 1754 Amitriptyline HCl 50 Mg Tablet, 50 MG PO HS, (Reported) Aripiprazole 20 Mg Tablet, 20 MG PO DAILY, (Reported) Aspirin 81 Mg Tablet.dr, 81 MG PO DAILY, (Reported) Atorvastatin Calcium 40 Mg Tablet, 40 MG PO HS Prescribed by: MIGUEL SARABIA on 07/04/17 1438 Bupropion HCl 100 Mg Tablet, 200 MG PO DAILY, (Reported) Bupropion HCl 100 Mg Tablet, 200 MG PO NOON, (Reported) Cyclobenzaprine HCl 10 Mg Tablet, 20 MG PO Q8H PRN for SPASMS Prescribed by: GERMÁN GARCIA on 03/13/186 Diclofenac Sod 100 Mg Tab, 100 MG PO DAILY, (Reported) Dicyclomine HCl 10 Mg Capsule, 10 MG PO QID, (Reported) Famotidine 20 Mg Tablet, 20 MG PO BID, (Reported) Fenofibrate,Micronized 145 Mg Tablet, 145 MG PO DAILY, (Reported) Fluticasone/Salmeterol 1 Each Blst.w.dev, 1 EACH IH DAILY, (Reported) Gabapentin 300 Mg Capsule, 300 MG PO HS, (Reported) Hydrocodone/Acetaminophen 1 Each Tablet, 1 EACH PO Q6H PRN for PAIN-MILD TO MODERATE, (Reported) Hyoscyamine Sulfate 0.125 Mg Tablet, 0.125 MG PO QID PRN for SPASMS, (Reported) L.acidoph & Paracasei,B.lactis 1 Each Capsule, 1 EACH PO DAILY, (Reported) Lisinopril 10 Mg Tablet, 10 MG PO DAILY, (Reported) Loperamide HCl 2 Mg Capsule, 4 MG PO PRN PRN for DIARRHEA, (Reported) Mesalamine 1.2 Gm Tablet.dr, 4.8 GM PO DAILY, (Reported) Metformin HCl 500 Mg Tablet, 500 MG PO BID, (Reported) Metoprolol Tartrate 50 Mg Tablet, 50 MG PO BID, (Reported) Multivitamin 1 Each Tablet, 1 EACH PO DAILY, (Reported) [place]-3 Acid Ethyl Esters 1 Gm Capsule, 2 G PO BID WITH MEALS, (Reported) Pantoprazole Sodium 40 Mg Tablet.dr, 40 MG PO DAILY, (Reported) Ropinirole HCl 4 Mg Tablet, 4 MG PO TID, (Reported) Sucralfate 1 Gm Tab, 1 GM PO UD TAKE BEFORE EACH MEAL AND AT BEDTIME FOR STOMACH Prescribed by: KIT JOHNSON on 10/18/132110 Topiramate 200 Mg Tablet, 200 MG PO BID, (Reported) Tramadol HCl 50 Mg Tablet, 50 MG PO QID Prescribed by: RUDY MEREDITH on 08/25/17 0131 Past Lwvlqey-Drmxie-Cpayqq Hx Patient Social History Alcohol Use: Denies Use Number of Drinks Today: AA Alcohol Beverage of Choice: Beer Recreational Drug Use: No Drug of Choice: Hx of SPEED, COCAINE usage Smoking Status: Current Someday Smoker Type Used: Cigarettes Former Smoker, Quit: Jun 04, 2017 Recent Foreign Travel: No Contact w/Someone Who Travel: No Recent Infectious Disease Expo: No Recent Hopitalizations: No Immunizations Up To Date Tetanus Booster (TDap): Unknown PED Vaccines UTD: No Date of Influenza Vaccine: Jan 01, 2018 Seasonal Allergies Seasonal Allergies: No Past Medical History Surgeries: Yes (LAP EVELIO, BACK SURGERY, FINGER; LITHOTRIPSY ) Cardiac, Gallbladder, Orthopedic, Renal Respiratory: Yes (C-PAP MACHINE) Sleep Apnea, COPD Currently Using CPAP: Yes Currently Using BIPAP: No Cardiac: Yes High Cholesterol, Hypertension Neurological: No Reproductive Disorders: No Sexually Transmitted Disease: No HIV/AIDS: No Genitourinary: Yes Kidney Stones, Renal Failure Gastrointestinal: Yes (S/P EVELIO; FATTY LIVER ON CT. ) Colitis, Gastroesophageal Reflux, Gall Bladder Disease Musculoskeletal: Yes Arthritis, Chronic Back Pain Endocrine: Yes (MORBID OBESITY) Diabetes, Non-Insulin dep HEENT: Yes (POOR DENTITION) Cancer: No Psychosocial: Yes (BIPOLAR, POLYSUBSTANCE ABUSE) Anxiety, Bipolar, Depression Integumentary: No Blood Disorders: No Adverse Reaction/Blood Tranf: No Family Medical History DVT 19 MOTHER, , Onset:Unknown Diabetes mellitus 19 MOTHER, , Onset:Unknown G8 BROTHER, Onset:Unknown FH: gastric ulcer 19 FATHER, Onset:Unknown Physical Exam Vital Signs Vital Signs - First Documented 04/07/18 09:31 Temp 98.3 Pulse 87 Resp 18 B/P (MAP) 137/100 (112) Pulse Ox 97 O2 Delivery Room Air Capillary Refill : Less Than 3 Seconds Height, Weight, BMI Height: 5'10.00" Weight: 350lbs. 0.4oz. 158.919925ui; 51.8 BMI Method:Stated Progress/Results/Core Measures Results/Orders My Orders Orders - TRINITY CURRY Knee, Left, 3 Views (04/07/18 11:18) Vital Signs/I&O 04/07/18 09:31 Temp 98.3 Pulse 87 Resp 18 B/P (MAP) 137/100 (112) Pulse Ox 97 O2 Delivery Room Air Blood Pressure Mean: 112 Departure Impression Primary Impression: Left knee pain Disposition: 01 HOME, SELF-CARE Condition: Stable/Unchanged Departure-Patient Inst. Decision time for Depature: 11:49 Referrals: ÁNGEL CASPER MD (PCP/Family) Primary Care Physician Patient Instructions: Knee Sprain (DC) Add. Discharge Instructions: Ice to the sore areas at 20 minute intervals. You may benefit from an Rashard bandage. You may wrapped knee was the one that was provided in the emergency room. You may use ibuprofen and Tylenol as directed by the bottle for pain relief. Follow-up with your primary care provider for possible further imaging. Return back to the emergency room for worsening symptoms or concerns as needed. All discharge instructions reviewed with patient and/or family. Voiced understanding. TRINITY CURRY Apr 07, 2018 11:27
--- NOTE | 2018-04-07 11:28 | NUR ---
X RAY DONE AT BEDSIDE.
--- NOTE | 2018-04-07 11:40 | Diagnostic Imaging Report ---
PATIENT HISTORY: Left knee pain. TECHNIQUE: Three views of the left knee. COMPARISON: None. FINDINGS: There are mild tricompartmental degenerative changes in the left knee. No acute fracture is seen. Alignment appears normal. No significant joint effusion is seen. IMPRESSION: Mild degenerative changes in the left knee with no acute osseous abnormality seen. Dictated by: Dictated on workstation # [id number]
[2018-04-07 11:54] VITALS: BP 137/92
== END 2018-04-07 11:54 | disposition home or self-care (01) ==
LOC: EDUNIT# 09:27 → ER 09:28
DX: M25.562 Pain in left knee (principal); G47.30 Sleep apnea, unspecified; J44.9 Chronic obstructive pulmonary disease, unspecified; I10 Essential (primary) hypertension; E78.00 Pure hypercholesterolemia, unspecified; K21.9 Gastro-esophageal reflux disease without esophagitis; E66.01 Morbid (severe) obesity due to excess calories; E11.9 Type 2 diabetes mellitus without complications; F41.9 Anxiety disorder, unspecified; F31.9 Bipolar disorder, unspecified; F17.210 Nicotine dependence, cigarettes, uncomplicated; Z79.51 Long term (current) use of inhaled steroids; Z68.43 Body mass index [BMI] 50.0-59.9, adult; Z90.49 Acquired absence of other specified parts of digestive tract; Z87.442 Personal history of urinary calculi; Z87.19 Personal history of other diseases of the digestive system; Z79.82 Long term (current) use of aspirin; Z79.84 Long term (current) use of oral hypoglycemic drugs; Z98.890 Other specified postprocedural states; X50.1XXA Overexertion from prolonged static or awkward postures, initial encounter
CPT/HCPCS: 73562

== ENCOUNTER → 2018-04-07 | Outpatient (CLI) | payer MEDICAID ==
--- NOTE | 2018-04-07 10:31 | Diagnostic Imaging Report ---
PROCEDURE: US Renal Bilateral. TECHNIQUE: Multiple real-time grayscale images were obtained over the kidneys in various projections bilaterally. INDICATION: Renal dysfunction. Study interpreting in correlation with nonenhanced CT 07/12/2017. FINDINGS: Right kidney is 14.4 cm, the left 15.2 cm. There is a renal cyst measuring 1.1 cm the largest left renal cyst is 1.5 cm. At ultrasound, I cannot identify shadowing echogenic stone and there is no hydronephrosis. Fatty infiltration of the liver chronic finding. No perinephric collection. Urinary bladder unremarkable. IMPRESSION: Unobstructed kidneys with small bilateral cortical cysts. No hydronephrosis or visualized stone. Bladder appeared normal. Dictated by: Dictated on workstation # [id number]
== END ==
LOC: RAD 08:32
PROVIDERS: ATTEND Internal Medicine Nephrology
DX: N18.3 Chronic kidney disease, stage 3 (moderate) (principal); N28.1 Cyst of kidney, acquired
CPT/HCPCS: 76770

== ENCOUNTER 2018-05-21 16:15 | Observation (INO) | payer MEDICAID ==
[~2018-05-21] VITALS: Ht 177.8 cm; Wt 146.1 kg
[~2018-05-21 16:15] MED LIST changes: -DICL100T3 PO; +DICL100T83 PO
[2018-05-21] MEDS ORDERED: LACTATED RINGERS 1,000 ML IV ONE (18:26)
[2018-05-21] MEDS ORDERED: ONDANSETRON 4 MG/2 ML (SDV) Z0FRAN IVP ONE (18:30)
[2018-05-21] MEDS ORDERED: NS IV 1000 ML 1,000 ML IV ONE ×2 (19:02→20:26)
[2018-05-21 19:04] LABS: BASOPHILS # (AUTO) 0.1 10^3/uL (0.0-0.1); BASOPHILS % (AUTO) 0 % (0-10); EOSINOPHILS # (AUTO) 0.3 10^3/uL (0.0-0.3); EOSINOPHILS % (AUTO) 1 % (0-10); HEMATOCRIT 54 % (40-54); HEMOGLOBIN 18.8 G/DL (13.3-17.7); LYMPHOCYTES # (AUTO) 2.2 X 10^3 (1.0-4.0); LYMPHOCYTES % (AUTO) 10 % (12-44); MEAN CORPUSCULAR HEMOGLOBIN 31 PG (25-34); MEAN CORPUSCULAR HGB CONC 35 G/DL (32-36); MEAN CORPUSCULAR VOLUME 90 FL (80-99); MEAN PLATELET VOLUME 10.8 FL (7.4-10.4); MONOCYTES # (AUTO) 1.7 X 10^3 (0.0-1.0); MONOCYTES % (AUTO) 7 % (0-12); NEUTROPHILS # (AUTO) 18.2 X 10^3 (1.8-7.8); NEUTROPHILS % (AUTO) 81 % (42-75); PLATELET COUNT 274 10^3/uL (130-400); RED CELL DISTRIBUTION WIDTH 16.4 % (10.0-14.5); WHITE BLOOD COUNT 22.4 10^3/uL (4.3-11.0)
[2018-05-21] MEDS ORDERED: HYOSCYAMINE 0.125 MG (LEVSIN) TAB SL ONE (19:15)
[2018-05-21 19:22] LABS: BAND NEUTROPHILS 3 %; LYMPHOCYTES % (MANUAL) 11 %; MONOCYTES % (MANUAL) 11 %; NEUTROPHILS % (MANUAL) 75 %
[2018-05-21 19:22] LABS: BILIRUBIN,URINE NEGATIVE (NEGATIVE); CLARITY,URINE VERY CLOUDY; COLOR,URINE YELLOW; GLUCOSE, URINE (UA) NEGATIVE (NEGATIVE); KETONES,URINE NEGATIVE (NEGATIVE); LEUKOCYTE ESTERASE ,URINE 2+ (NEGATIVE); NITRITE,URINE NEGATIVE (NEGATIVE); PH,URINE 5 (5-9); PROTEIN,URINE 3+ (NEGATIVE); UROBILINOGEN,URINE NORMAL (NORMAL)
[2018-05-21 19:23] LABS: ANISOCYTOSIS SLIGHT
[2018-05-21 19:34] LABS: ALANINE AMINOTRANSFERASE 43 U/L (0-55); ALBUMIN 5.6 GM/DL (3.2-4.5); ALKALINE PHOSPHATASE 77 U/L (40-136); BILIRUBIN,TOTAL 0.5 MG/DL (0.1-1.0); BUN/CREATININE RATIO 14; CALCIUM 10.9 MG/DL (8.5-10.1); CARBON DIOXIDE 16 MMOL/L (21-32); CHLORIDE 107 MMOL/L (98-107); CREATININE SERUM 1.87 MG/DL (0.60-1.30); GFR ESTIMATED 39; GLUCOSE 113 MG/DL (70-105); MAGNESIUM 2.8 MG/DL (1.8-2.4); POTASSIUM 4.2 MMOL/L (3.6-5.0); SODIUM 138 MMOL/L (135-145); TOTAL PROTEIN 8.9 GM/DL (6.4-8.2)
[2018-05-21 20:03] LABS: BACTERIA,URINE LARGE /HPF; WBC,URINE 25-50 /HPF
[2018-05-21] MEDS ORDERED: PIPERACILLIN/TAZOBACTAM (BULK) 4.5 GM in NS (IVPB) 100 ML IV ONE (20:30)
[2018-05-21] MEDS ORDERED: PIPERACILLIN/TAZO 4.5 GM VIAL (ZOSYN) IV ONE (20:43)
[2018-05-21] MEDS ORDERED: NS (IVPB) 100 ML ONE (20:43)
--- NOTE | 2018-05-21 21:29 | Diagnostic Imaging Report ---
INDICATION: Abdominal pain with nausea and vomiting. COMPARISON: None available. FINDINGS: Multiple air-filled loops of small bowel and colon are present. There are air-fluid levels present on upright imaging within the small bowel and colon. No features of free intraperitoneal air. Mild degenerative changes in the lower lumbar spine. There is also osteoarthritis of both hips. IMPRESSION: 1. Air and fluid-filled small bowel and colon is likely due to enteritis. Dictated by: Dictated on workstation # [id number]
--- NOTE | 2018-05-21 22:26 | ED GI ---
General Chief Complaint: Abdominal/GI Problems Stated Complaint: N/V/D Nursing Triage Note: PT AMB TO TRIAGE WITH COMPLAINT OF N,V,D, ABD PAIN THAT STARTED AROUND 2 AM, Sepsis Screen: No Definite Risk Source of Information: Patient Exam Limitations: No Limitations History of Present Illness Date Seen by Provider: May 21, 2018 Time Seen by Provider: 18:26 Initial Comments This 47-year-old man presents to the emergency room with onset of nausea, vomiting, and diarrhea early this morning. He has associated generalized abdominal pain and cramping. He denies fever. There his been no blood in his emesis or diarrhea. Mucous membranes are dry. Patient has a history of colitis and many other comorbidities. He generally feels weak and is having some degree of difficulty getting up to the bathroom. Allergies and Home Medications Allergies Coded Allergies: No Known Drug Allergies (Unverified , 12/21/17) Home Medications Aripiprazole 20 Mg Tablet, 20 MG PO DAILY, (Reported) Aspirin 81 Mg Tablet.dr, 81 MG PO DAILY, (Reported) Atorvastatin Calcium 40 Mg Tablet, 40 MG PO HS Prescribed by: MIGUEL SARABIA on 07/04/17 1438 Bupropion HCl 100 Mg Tablet, 200 MG PO DAILY, (Reported) Bupropion HCl 100 Mg Tablet, 200 MG PO NOON, (Reported) Dicyclomine HCl 10 Mg Capsule, 10 MG PO QID, (Reported) Famotidine 20 Mg Tablet, 20 MG PO BID, (Reported) Fenofibrate,Micronized 145 Mg Tablet, 145 MG PO DAILY, (Reported) Gabapentin 300 Mg Capsule, 300 MG PO BID, (Reported) 300mg in am, 300mg at noon Gabapentin 600 Mg Tablet, 600 MG PO HS, (Reported) Hyoscyamine Sulfate 0.125 Mg Tablet, 0.125 MG PO QID PRN for SPASMS, (Reported) L.acidoph & Paracasei,B.lactis 1 Each Capsule, 1 EACH PO DAILY, (Reported) Mesalamine 1.2 Gm Tablet.dr, 4.8 GM PO DAILY, (Reported) Metoprolol Tartrate 25 Mg Tablet, 25 MG PO BID, (Reported) Multivitamin 1 Each Tablet, 1 EACH PO DAILY, (Reported) Nifedipine 30 Mg Tablet.er, 30 MG PO DAILY, (Reported) [place]-3 Acid Ethyl Esters 1 Gm Capsule, 2 G PO BID WITH MEALS, (Reported) Phentermine HCl 37.5 Mg Capsule, 37.5 MG PO DAILY, (Reported) Phosphate 1 Ea Tablet, 4 EA PO BID, (Reported) Potassium Chloride 20 Meq Tablet.er, 20 MEQ PO BID, (Reported) Ropinirole HCl 5 Mg Tablet, 5 MG PO TID, (Reported) Solifenacin Succinate 5 Mg Tablet, 5 MG PO DAILY, (Reported) DAILY AT 0900 Sucralfate 1 Gm Tablet, 1 GM PO BID, (Reported) TWICE DAILY AT 1200 AND 2100 Topiramate 200 Mg Tablet, 200 MG PO BID, (Reported) Tramadol HCl 50 Mg Tablet, 50 MG PO QID Prescribed by: RUDY MEREDITH on 08/25/17 0131 Patient Home Medication List Home Medication List Reviewed: Yes Review of Systems Review of Systems Constitutional: see HPI EENTM: See HPI Respiratory: No Symptoms Reported Cardiovascular: No Symptoms Reported Gastrointestinal: See HPI Genitourinary: No Symptoms Reported Musculoskeletal: no symptoms reported Skin: no symptoms reported Psychiatric/Neurological: No Symptoms Reported Endocrine: No Symptoms Reported Hematologic/Lymphatic: No Symptoms Reported Past Qysqdfa-Zxoiha-Osbror Hx Past Med/Social Hx: Reviewed Nursing Past Med/Soc Hx Patient Social History Alcohol Use: Occasionally Uses Number of Drinks Today: AA Alcohol Beverage of Choice: Beer Recreational Drug Use: No Drug of Choice: Hx of SPEED, COCAINE usage Smoking Status: Current Everyday Smoker Type Used: Cigarettes Former Smoker, Quit: Jun 04, 2017 Recent Foreign Travel: No Contact w/Someone Who Travel: No Recent Infectious Disease Expo: No Recent Hopitalizations: No Immunizations Up To Date Tetanus Booster (TDap): Unknown PED Vaccines UTD: No Date of Influenza Vaccine: Jan 01, 2018 Seasonal Allergies Seasonal Allergies: No Past Medical History Surgeries: Yes (LAP EVELIO, BACK SURGERY, FINGER; LITHOTRIPSY ) Cardiac, Gallbladder, Orthopedic, Renal Respiratory: Yes (C-PAP MACHINE) Sleep Apnea, COPD Currently Using CPAP: Yes Currently Using BIPAP: No Cardiac: Yes High Cholesterol, Hypertension Neurological: No Reproductive Disorders: No Sexually Transmitted Disease: No HIV/AIDS: No Genitourinary: Yes Kidney Stones, Renal Failure Gastrointestinal: Yes (S/P EVELIO; FATTY LIVER ON CT. ) Colitis, Gastroesophageal Reflux, Gall Bladder Disease Musculoskeletal: Yes Arthritis, Chronic Back Pain Endocrine: Yes (MORBID OBESITY) Diabetes, Non-Insulin dep HEENT: Yes (POOR DENTITION) Cancer: No Psychosocial: Yes (BIPOLAR, POLYSUBSTANCE ABUSE) Anxiety, Bipolar, Depression Integumentary: No Blood Disorders: No Adverse Reaction/Blood Tranf: No Family Medical History Reviewed Nursing Family Hx DVT 19 MOTHER, , Onset:Unknown Diabetes mellitus 19 MOTHER, , Onset:Unknown G8 BROTHER, Onset:Unknown FH: gastric ulcer 19 FATHER, Onset:Unknown Physical Exam Vital Signs Vital Signs - First Documented 05/21/18 17:54 Temp 96.0 Pulse 90 Resp 20 B/P (MAP) 136/99 (111) Pulse Ox 95 O2 Delivery Room Air Capillary Refill : Less Than 3 Seconds Height/Weight/BMI Height: 5'10.00" Weight: 330lbs. 0.4oz. 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, no motor/sensory deficits, alert, normal mood/affect, oriented x 3 Skin: normal color, warm/dry Progress/Results/Core Measures Results/Orders Lab Results Laboratory Tests Test 05/21/18 18:55 05/21/18 19:19 Range/Units White Blood Count 22.4 H 4.3-11.0 10^3/uL Red Blood Count 6.07 H 4.35-5.85 10^6/uL Hemoglobin 18.8 H 13.3-17.7 G/DL Hematocrit 54 40-54 % Mean Corpuscular Volume 90 80-99 FL Mean Corpuscular Hemoglobin 31 25-34 PG Mean Corpuscular Hemoglobin Concent 35 32-36 G/DL Red Cell Distribution Width 16.4 H 10.0-14.5 % Platelet Count 274 130-400 10^3/uL Mean Platelet Volume 10.8 H 7.4-10.4 FL Neutrophils (%) (Auto) 81 H 42-75 % Lymphocytes (%) (Auto) 10 L 12-44 % Monocytes (%) (Auto) 7 0-12 % Eosinophils (%) (Auto) 1 0-10 % Basophils (%) (Auto) 0 0-10 % Neutrophils # (Auto) 18.2 H 1.8-7.8 X 10^3 Lymphocytes # (Auto) 2.2 1.0-4.0 X 10^3 Monocytes # (Auto) 1.7 H 0.0-1.0 X 10^3 Eosinophils # (Auto) 0.3 0.0-0.3 10^3/uL Basophils # (Auto) 0.1 0.0-0.1 10^3/uL Neutrophils % (Manual) 75 % Lymphocytes % (Manual) 11 % Monocytes % (Manual) 11 % Band Neutrophils 3 % Anisocytosis SLIGHT Erythrocyte Sedimentation Rate 1 0-15 MM/HR Sodium Level 138 135-145 MMOL/L Potassium Level 4.2 3.6-5.0 MMOL/L Chloride Level 107 98-107 MMOL/L Carbon Dioxide Level 16 L 21-32 MMOL/L Anion Gap 15 H 5-14 MMOL/L Blood Urea Nitrogen 27 H 7-18 MG/DL Creatinine 1.87 H 0.60-1.30 MG/DL Estimat Glomerular Filtration Rate 39 BUN/Creatinine Ratio 14 Glucose Level 113 H 70-105 MG/DL Calcium Level 10.9 H 8.5-10.1 MG/DL Corrected Calcium 8.5-10.1 MG/DL Magnesium Level 2.8 H 1.8-2.4 MG/DL Total Bilirubin 0.5 0.1-1.0 MG/DL Aspartate Amino Transf (AST/SGOT) 41 H 5-34 U/L Alanine Aminotransferase (ALT/SGPT) 43 0-55 U/L Alkaline Phosphatase 77 40-136 U/L C-Reactive Protein High Sensitivity 0.43 0.00-0.50 MG/DL Total Protein 8.9 H 6.4-8.2 GM/DL Albumin 5.6 H 3.2-4.5 GM/DL Lipase 32 8-78 U/L Urine Color YELLOW Urine Clarity VERY CLOUDY H Urine pH 5 5-9 Urine Specific [place] 1.025 H 1.016-1.022 Urine Protein 3+ H NEGATIVE Urine Glucose (UA) NEGATIVE NEGATIVE Urine Ketones NEGATIVE NEGATIVE Urine Nitrite NEGATIVE NEGATIVE Urine Bilirubin NEGATIVE NEGATIVE Urine Urobilinogen NORMAL NORMAL MG/DL Urine Leukocyte Esterase 2+ H NEGATIVE Urine RBC (Auto) 3+ H NEGATIVE Urine RBC 2-5 H /HPF Urine WBC 25-50 H /HPF Urine Crystals NONE /LPF Urine Bacteria LARGE H /HPF Urine Casts PRESENT /LPF Urine Hyaline Casts 10-25 H /LPF Urine Mucus NEGATIVE /LPF Urine Culture Indicated YES My Orders Orders - RUDY BARRETO MD Cbc With Automated Diff (05/21/18 18:26) Comprehensive Metabolic Panel (05/21/18 18:26) Magnesium (05/21/18 18:26) Saline Lock/Iv-Start (05/21/18 18:26) Lactated Ringers (Lr 1000 Ml Iv Solution (05/21/18 18:26) Ondansetron Injection (Zofran Injectio (05/21/18 18:30) Manual Differential (05/21/18 18:55) Hyoscyamine Sl Tablet (Levsin Sl Tablet) (05/21/18 19:15) Hs C Reactive Protein (05/21/18 19:02) Lipase (05/21/18 19:02) Ua Culture If Indicated (05/21/18 19:02) Saline Lock/Iv-Start (05/21/18 19:02) Ns Iv 1000 Ml (Sodium Chloride 0.9%) (05/21/18 19:02) Erythrocyte Sedimentation Rate (05/21/18 19:02) Urine Culture (05/21/18:19) Ns Iv 1000 Ml (Sodium Chloride 0.9%) (05/21/18 20:26) Piperacillin/Tazobactam (Bulk) (Zosyn In (05/21/18 20:30) Ns (Ivpb) (Sodium Chloride 0.9% Ivpb Bag (05/21/18 20:43) Piperacillin Sodium/Tazobactam (Zosyn Vi (05/21/18 20:43) Abdomen, Flat & Upright/Decub (05/21/18 20:52) Medications Given in ED Current Medications Medications Dose Ordered Sig/Saba Route Start Time Stop Time Status Last Admin Dose Admin Piperacillin Sod/ Tazobactam Sod 4.5 gm/Sodium Chloride 120 ml @ 240 mls/hr ONCE ONCE IV 05/21/18 20:30 05/21/18 20:59 DC 05/21/18 21:08 240 MLS/HR Sodium Chloride 1,000 ml @ 0 mls/hr Q0M ONCE IV 05/21/18 20:26 05/21/18 20:28 DC 05/21/18 20:45 1,000 MLS/HR Vital Signs/I&O 05/21/18 17:54 Temp 96.0 Pulse 90 Resp 20 B/P (MAP) 136/99 (111) Pulse Ox 95 O2 Delivery Room Air Blood Pressure Mean: 111 Progress Progress Note : Progress Note Patient was found to have acute on chronic renal failure. 2 L of IV fluids were infused. A significant leukocytosis was noted. CT scan of the abdomen and pelvis was desired but patient exceeded the weight limit. KUB and upright was obtained. No obstruction was seen. Urinary tract infection was identified. Patient was treated with Zosyn in the ER. Zofran and Levsin were given for treatment of symptoms. Disposition was discussed with the patient. He does not believe he will do well at home and his current state. Admission was discussed with Dr. Botello who agrees. Diagnostic Imaging Diagonstic Imaging: Xray Plain Films/CT/US/NM/MRI: abdomen, pelvis Comments NAME: DREW HILL [facility] REC#: [id number] PT STATUS: REG ER : 1970 PHYSICIAN: RUDY BARRETO MD ADMIT DATE: 05/21/18/ER Signed Date of Exam: 05/21/18 ABDOMEN, FLAT & UPRIGHT/DECUB INDICATION: Abdominal pain with nausea and vomiting. COMPARISON: None available. FINDINGS: Multiple air-filled loops of small bowel and colon are present. There are air-fluid levels present on upright imaging within the small bowel and colon. No features of free intraperitoneal air. Mild degenerative changes in the lower lumbar spine. There is also osteoarthritis of both hips. IMPRESSION: 1. Air and fluid-filled small bowel and colon is likely due to enteritis. Dictated by: Dictated on workstation # [id number] Dict: 05/21/182122 Trans: 05/21/182220 Interpreted by: CHRISTIAN BORREGO MD Electronically signed by: CHRISTIAN BORREGO MD 03/21/19 2221 Departure Communication (Admissions) Time/Spoke to Admitting Phy: 22:15 Dr. Botello Impression Primary Impression: Enterocolitis Additional Impressions: Nausea vomiting and diarrhea Generalized abdominal pain Urinary tract infection Qualified Codes: N39.0 - Urinary tract infection, site not specified Acute on chronic kidney failure Qualified Codes: N17.9 - Acute kidney failure, unspecified; N18.9 - Chronic kidney disease, unspecified Leukocytosis Qualified Codes: D72.829 - Elevated white blood cell count, unspecified Disposition: 09 ADMITTED INPATIENT Condition: Improved Admissions Decision to Admit Reason: Admit from ER (General) Decision to Admit/Date: May 21, 2018 Time/Decision to Admit Time: 22:15 Departure-Patient Inst. Referrals: ÁNGEL CASPER MD (PCP/Family) Primary Care Physician RUDY BARRETO MD May 21, 2018 22:26
--- OUTSIDE RECORDS SUMMARY | 2018-05-21 23:14 | XMS REPORT | Clinical Summary ---
Author Author [facility] Organization [facility] Address Unknown Phone Unavailable Care Team Providers Care Electrician Front Name Role Phone Carey Boland RN Unavailable Unavailable Self, Referral PCP Unavailable Renny Eisenberg MD Unavailable Source Comments Some departments are not documenting in the electronic medical record. If you do not see the information that you expected, contact Release of Information in the Health Information Management department at [phone] for further assistance in locating additional records.[facility] Allergies No Known Allergies Medications End Date Status Medication Sig Dispensed Refills Start Date Active Fenofibric Acid Take 135 mg 0 (TRILIPIX) 135 mg PO CpDR by mouth daily. Active VENLAFAXINE HCL Take 750 mg 0 (VENLAFAXINE PO) by mouth 1 daily. Active OMEPRAZOLE (PRILOSEC PO) Take 20 mg by 0 mouth daily. Active hydrochlorothiazide Take 25 mg by 0 (HYDRODIURIL) 25 mg PO mouth daily. tablet Active lisinopril (PRINIVIL; Take 20 mg by 0 ZESTRIL) 20 mg PO tablet mouth daily. Active aspirin 325 mg PO tablet Take 325 mg 0 by mouth 1 daily. Active PV W-O DARIN/FERROUS Take by 0 FUMARATE/FA (M-VIT PO) mouth daily. Active DOCOSAHEXANOIC ACID/EPA Take 1,000 mg 0 (FISH OIL PO) by mouth daily. Active clonazepam (KLONOPIN) 0.5 Take 0.5 mg 0 mg PO tablet by mouth three times daily. Active carbamazepine (EPITOL) Take 200 mg 0 200 mg PO tablet by mouth three times daily. Active ibuprofen (MOTRIN) 800 mg Take 800 mg 0 PO tablet by mouth three times daily. Active cyclobenzaprine Take 10 mg by 0 (FLEXERIL) 10 mg PO mouth three 1 tablet times daily as needed. Active topiramate (TOPAMAX) 100 Take 100 mg 0 mg PO tablet by mouth twice daily. Active metoprolol (LOPRESSOR) 25 Take 25 mg by 0 mg PO tablet mouth twice daily. Active gemfibrozil (LOPID) 600 Take 600 mg 0 mg PO tablet by mouth twice daily. Active POTASSIUM CHLORIDE (K-JOANNE Take 20 mEq 0 PO) by mouth at bedtime daily. Active ropinirole (REQUIP) 2 mg Take 2 mg by 0 PO tablet mouth at bedtime daily. Active Trazodone 150 mg PO Tb24 Take 150 mg 0 by mouth at bedtime daily. Active QUETIAPINE FUMARATE Take 500 mg 0 (SEROQUEL XR PO) by mouth at 1 bedtime daily. Active Problems Not on file Social History Date Tobacco Use Types Packs/Day Years Used Current Every Day Smoker 1 Alcohol Use Drinks/Week oz/Week Comments No Sex Assigned at Date Recorded Not on file Industry Job Start Date Occupation Not on file Not on file Not on file Travel End Travel History Travel Start No recent travel history available. Last Filed Vital Signs Time Taken Vital Sign Reading 07/20/2010 3:35 PM CDT Blood Pressure 111/65 07/20/2010 3:35 PM CDT Pulse 98 10/18/2009 10:49 AM CDT Temperature 37.2 C (99 F) - Respiratory Rate - 07/20/2010 3:35 PM CDT Oxygen Saturation 96% - Inhaled Oxygen - Concentration 07/20/2010 2:05 PM CDT Weight 161 kg (355 lb) - Height - - Body Mass Index - Plan of Treatment Health Maintenance Due Date Last Done Comments PHYSICAL (COMPREHENSIVE) 1976 EXAM HIV SCREENING 1984 DTAP/TDAP VACCINES (1 - 11/07/1987 Tdap) INFLUENZA VACCINE 10/01/2017 Results Not on filefrom Last 3 Months
[2018-05-22] VITALS: BP 118/83
--- NOTE | 2018-05-22 | NUR ---
Report received from Yohana in ED. DREW HILL admitted to room 424-1, with an admitting diagnosis of entercolitis, uti, N/V/D, acute on chronic renal failure , on 05/22/18 from ED via wheelchair, accompanied by staff. DREW HILL introduced to surroundings, call light, bed controls, phone, TV, temperature control, lights, meal times, smoking policy, visitor policy, side rail policy, bathrooms and showers. Patient Rights given to patient in the handbook. DREW HILL verbalizes understanding that [facility] is not responsible for the loss or damage to any personal effects or valuables that are kept in the patients posession during their hospitalization. DREW HILL verbalizes understanding of Interdisciplinary Patient Education. Patient and/or family were informed about the Rapid Response Team and its purpose.
[2018-05-22] MEDS ORDERED: HYOSCYAMINE 0.125 MG (LEVSIN) TAB SL PRN (00:30)
[2018-05-22] MEDS ORDERED: fentaNYL INJECTION 100 MCG/2 ML AMP IV PRN (00:30)
[2018-05-22] MEDS ORDERED: ONDANSETRON 4 MG/2 ML (SDV) Z0FRAN IV PRN (00:30)
[2018-05-22] MEDS: NS IV 1000 ML 1,000 ML IV SCH ×3 (00:58→22:37)
[2018-05-22] MEDS ORDERED: PIPERACILLIN/TAZO 4.5 GM VIAL (ZOSYN) IV ONE (03:50)
[2018-05-22] MEDS ORDERED: NS (IVPB) 100 ML ONE (03:50)
[2018-05-22] MEDS: PIPERACILLIN/TAZO 4.5 GM/NS 100 ML IV SCH ×6 (04:10→18:21)
[2018-05-22 04:14] VITALS: BP 121/80
[2018-05-22] MEDS ORDERED: NF-SOLIF5T PO (06:04)
[2018-05-22] MEDS ORDERED: GABA-488 PO (06:04)
[2018-05-22] MEDS ORDERED: NIFE30TA89 PO (06:04)
[2018-05-22] MEDS ORDERED: SUCR1TAB36 PO (06:04)
[2018-05-22] MEDS ORDERED: POTA-51 PO (06:04)
[2018-05-22] MEDS ORDERED: METO-333 PO (06:04)
[2018-05-22] MEDS ORDERED: PHOS250T5 PO (06:04)
[2018-05-22] MEDS ORDERED: GBPN600T PO (06:04)
[2018-05-22] MEDS ORDERED: PHEN-483 PO (06:04)
[2018-05-22] MEDS ORDERED: ROPI5TAB3 PO (06:04)
[2018-05-22 06:10] LABS: BASOPHILS % (AUTO) 0 % (0-10); EOSINOPHILS # (AUTO) 0.2 10^3/uL (0.0-0.3); EOSINOPHILS % (AUTO) 2 % (0-10); HEMATOCRIT 49 % (40-54); HEMOGLOBIN 16.4 G/DL (13.3-17.7); LYMPHOCYTES # (AUTO) 1.6 X 10^3 (1.0-4.0); LYMPHOCYTES % (AUTO) 11 % (12-44); MEAN CORPUSCULAR HEMOGLOBIN 31 PG (25-34); MEAN CORPUSCULAR HGB CONC 34 G/DL (32-36); MEAN CORPUSCULAR VOLUME 91 FL (80-99); MEAN PLATELET VOLUME 11.1 FL (7.4-10.4); MONOCYTES # (AUTO) 1.2 X 10^3 (0.0-1.0); MONOCYTES % (AUTO) 8 % (0-12); NEUTROPHILS # (AUTO) 11.7 X 10^3 (1.8-7.8); NEUTROPHILS % (AUTO) 80 % (42-75); PLATELET COUNT 229 10^3/uL (130-400); RED CELL DISTRIBUTION WIDTH 16.2 % (10.0-14.5); WHITE BLOOD COUNT 14.7 10^3/uL (4.3-11.0)
[2018-05-22 06:34] LABS: ALBUMIN 4.4 GM/DL (3.2-4.5); BILIRUBIN,TOTAL 0.5 MG/DL (0.1-1.0); CREATININE SERUM 1.54 MG/DL (0.60-1.30); POTASSIUM 3.1 MMOL/L (3.6-5.0); TOTAL PROTEIN 7.2 GM/DL (6.4-8.2)
[2018-05-22 08:00] VITALS: BP 115/78
--- NOTE | 2018-05-22 11:29 | History & Physicial (CHS) ---
HPI History of Present Illness: 47 yo M with multiple comorbidities that presented with abdominal pain that started around 3 am prior to presentation. Patient denies any fever or chills. States that he had been feeling nauseous and had vomited a couple times and then started have diarrhea. Denies any other sick contacts. No new foods. He was also found to have an elevated Cr and WBC count with UTI. Source: patient, RN/MD Exam Limitations: no limitations Date seen by provider: May 22, 2018 Time Seen by Provider: 10:44 Attending Physician Anastasia Botello MD PCP Ángel Casper MD Consult Date of Admission May 21, 2018 at 22:19 Home Medications Home Medications Reviewed patient Home Medication Reconciliation performed by pharmacy medication reconciliations hitch technician and/or nursing. Patients Allergies have been reviewed. Allergies Coded Allergies: No Known Drug Allergies (Unverified , 12/21/17) EIM-Periia-Ckolsm Hx Patient Social History Alcohol Use: Occasionally Uses Recreational Drug Use: No Drug of Choice: Hx of SPEED, COCAINE usage Smoking Status: Current Everyday Smoker Type Used: Cigarettes Recent Foreign Travel: No Contact w/other who traveled: No Recent Hopitalizations: No Recent Infectious Disease Expo: No Immunizations Up To Date Tetanus Booster (TDap): Unknown Date of Pneumonia Vaccine: May 22, 2016 Date of Influenza Vaccine: Dec 01, 2017 Past Medical History HTN NIDDM Restless Legs COPD Family Medical History Significant Family History: No Pertinent Family Hx Family History: Completed stroke DVT 19 MOTHER, , Onset:Unknown Diabetes mellitus 19 MOTHER, , Onset:Unknown G8 BROTHER, Onset:Unknown FH: gastric ulcer 19 FATHER, Onset:Unknown Review of Systems (CHC) Constitutional: No chills, No fever; malaise, weakness EENTM: no symptoms reported Respiratory: no symptoms reported; No cough, No dyspnea on exertion, No short of breath Cardiovascular: no symptoms reported; No chest pain, No edema, No palpitations Gastrointestinal: abdominal pain (RLQ), diarrhea, loss of appetite, nausea, vomiting Genitourinary: No dysuria; frequency; No hematuria Musculoskeletal: back pain (chronic) Skin: no symptoms reported Psychiatric/Neurological: No Symptoms Reported Reviewed Test Results Reviewed Test Results Lab Laboratory Tests Test 05/21/18 18:55 05/21/18 19:19 05/22/18 05:30 Range/Units White Blood Count 22.4 H 14.7 H 4.3-11.0 10^3/uL Red Blood Count 6.07 H 5.33 4.35-5.85 10^6/uL Hemoglobin 18.8 H 16.4 13.3-17.7 G/DL Hematocrit 54 49 40-54 % Mean Corpuscular Volume 90 91 80-99 FL Mean Corpuscular Hemoglobin 31 31 25-34 PG Mean Corpuscular Hemoglobin Concent 35 34 32-36 G/DL Red Cell Distribution Width 16.4 H 16.2 H 10.0-14.5 % Platelet Count 274 229 130-400 10^3/uL Mean Platelet Volume 10.8 H 11.1 H 7.4-10.4 FL Neutrophils (%) (Auto) 81 H 80 H 42-75 % Lymphocytes (%) (Auto) 10 L 11 L 12-44 % Monocytes (%) (Auto) 7 8 0-12 % Eosinophils (%) (Auto) 1 2 0-10 % Basophils (%) (Auto) 0 0 0-10 % Neutrophils # (Auto) 18.2 H 11.7 H 1.8-7.8 X 10^3 Lymphocytes # (Auto) 2.2 1.6 1.0-4.0 X 10^3 Monocytes # (Auto) 1.7 H 1.2 H 0.0-1.0 X 10^3 Eosinophils # (Auto) 0.3 0.2 0.0-0.3 10^3/uL Basophils # (Auto) 0.1 0.0 0.0-0.1 10^3/uL Neutrophils % (Manual) 75 % Lymphocytes % (Manual) 11 % Monocytes % (Manual) 11 % Band Neutrophils 3 % Anisocytosis SLIGHT Erythrocyte Sedimentation Rate 1 0-15 MM/HR Sodium Level 138 141 135-145 MMOL/L Potassium Level 4.2 3.1 L 3.6-5.0 MMOL/L Chloride Level 107 113 H 98-107 MMOL/L Carbon Dioxide Level 16 L 17 L 21-32 MMOL/L Anion Gap 15 H 11 5-14 MMOL/L Blood Urea Nitrogen 27 H 26 H 7-18 MG/DL Creatinine 1.87 H 1.54 H 0.60-1.30 MG/DL Estimat Glomerular Filtration Rate 39 48 BUN/Creatinine Ratio 14 17 Glucose Level 113 H 106 H 70-105 MG/DL Calcium Level 10.9 H 9.0 8.5-10.1 MG/DL Corrected Calcium 8.7 8.5-10.1 MG/DL Magnesium Level 2.8 H 1.8-2.4 MG/DL Total Bilirubin 0.5 0.5 0.1-1.0 MG/DL Aspartate Amino Transf (AST/SGOT) 41 H 25 5-34 U/L Alanine Aminotransferase (ALT/SGPT) 43 32 0-55 U/L Alkaline Phosphatase 77 58 40-136 U/L C-Reactive Protein High Sensitivity 0.43 0.00-0.50 MG/DL Total Protein 8.9 H 7.2 6.4-8.2 GM/DL Albumin 5.6 H 4.4 3.2-4.5 GM/DL Lipase 32 8-78 U/L Urine Color YELLOW Urine Clarity VERY CLOUDY H Urine pH 5 5-9 Urine Specific [place] 1.025 H 1.016-1.022 Urine Protein 3+ H NEGATIVE Urine Glucose (UA) NEGATIVE NEGATIVE Urine Ketones NEGATIVE NEGATIVE Urine Nitrite NEGATIVE NEGATIVE Urine Bilirubin NEGATIVE NEGATIVE Urine Urobilinogen NORMAL NORMAL MG/DL Urine Leukocyte Esterase 2+ H NEGATIVE Urine RBC (Auto) 3+ H NEGATIVE Urine RBC 2-5 H /HPF Urine WBC 25-50 H /HPF Urine Crystals NONE /LPF Urine Bacteria LARGE H /HPF Urine Casts PRESENT /LPF Urine Hyaline Casts 10-25 H /LPF Urine Mucus NEGATIVE /LPF Urine Culture Indicated YES Physical Exam-(CHC) Physical Exam Vital Signs VS - Last 72 Hours, by Label 05/21/18 05/21/18 05/22/18 05/22/18 17:54 23:22 00:00 00:00 Temp 96.0 97.5 Pulse 90 100 100 Resp 20 20 20 B/P (MAP) 136/99 (111) 129/80 (96) 118/83 Pulse Ox 95 98 96 O2 Delivery Room Air Room Air Room Air Room Air 05/22/18 05/22/18 05/22/18 04:14 08:00 08:00 Temp 98.9 97.8 Pulse 108 113 Resp 22 18 B/P (MAP) 121/80 (94) 115/78 (90) Pulse Ox 96 93 O2 Delivery Room Air Room Air Room Air Capillary Refill : Less Than 3 Seconds General Appearance: WD/WN, no apparent distress, obese Neck: non-tender, full range of motion, supple Respiratory: chest non-tender, lungs clear, normal breath sounds, no respiratory distress, no accessory muscle use Cardiovascular: normal peripheral pulses, regular rate, rhythm, no murmur Gastrointestinal: normal bowel sounds, soft, tenderness (RLQ, no rebound or gaurding) Back: no CVA tenderness, no vertebral tenderness Extremities: no calf tenderness, normal capillary refill, pedal edema (trace edema bilaterally) 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, no motor/sensory deficits, alert, normal mood/affect, oriented x 3 Skin: normal color, warm/dry Lymphatic: no adenopathy Assessment/Plan Assessment/Plan Admission Status: Observation (1) Nausea vomiting and diarrhea Status: Acute Assessment & Plan: - Improved with IVFs, continue to monitor, CLD for lunch if tolerates then advance diet to ADA diet (2) Leukocytosis Status: Acute Assessment & Plan: - Improving with IVFs and antibiotics, cultures pending Qualifiers: Qualified Codes: D72.829 - Elevated white blood cell count, unspecified (3) Acute on chronic kidney failure Status: Acute Assessment & Plan: - Improving with IVFs, Reviewed meds and held Gabapentin, HCTZ, Allopurinol due to renal complications Qualifiers: Qualified Codes: N17.9 - Acute kidney failure, unspecified; N18.9 - Chronic kidney disease, unspecified (4) Urinary tract infection Status: Acute Assessment & Plan: - Culture pending, Currently on Zosyn to cover Colitis Qualifiers: Qualified Codes: N39.0 - Urinary tract infection, site not specified (5) Enterocolitis Status: Acute Assessment & Plan: - IVFs, CLD, if pain improved with advance (6) Non-insulin dependent type 2 diabetes mellitus Status: Chronic Assessment & Plan: - Accucheck achs (7) Essential (primary) hypertension Status: Chronic Clinical Quality Measures DVT/VTE Risk/Contraindication: Risk Factor Score Per Nursin RFS Level Per Nursing on Admit: 4+=Very High Copy Copies To 1: ÁNGEL CASPER MD, HOLLY R MD May 22, 2018 11:29
[2018-05-22 12:00] VITALS: BP 131/88
[2018-05-22 16:00] VITALS: BP 124/79
[2018-05-22] MEDS: meTOprolol TARTRATE 25 MG (LOPRESSOR) TABLET PO SCH (22:36)
[2018-05-22] MEDS: FAMOTIDINE 20 MG (PEPCID) TABLET PO SCH (22:36)
[2018-05-22] MEDS: ATORVASTATIN 40 MG (LIPITOR) TABLET PO SCH (22:36)
[2018-05-23 00:35] VITALS: BP 128/76
[2018-05-23] MEDS: PIPERACILLIN/TAZO 4.5 GM/NS 100 ML IV SCH ×6 (02:32→18:14)
[2018-05-23] MEDS: NS IV 1000 ML 1,000 ML IV SCH ×2 (02:33→18:14)
[2018-05-23 06:26] LABS: BASOPHILS % (AUTO) 0 % (0-10); EOSINOPHILS # (AUTO) 0.4 10^3/uL (0.0-0.3); EOSINOPHILS % (AUTO) 4 % (0-10); HEMATOCRIT 43 % (40-54); HEMOGLOBIN 14.7 G/DL (13.3-17.7); LYMPHOCYTES # (AUTO) 1.7 X 10^3 (1.0-4.0); LYMPHOCYTES % (AUTO) 18 % (12-44); MEAN CORPUSCULAR HEMOGLOBIN 31 PG (25-34); MEAN CORPUSCULAR HGB CONC 34 G/DL (32-36); MEAN CORPUSCULAR VOLUME 90 FL (80-99); MEAN PLATELET VOLUME 10.7 FL (7.4-10.4); MONOCYTES # (AUTO) 0.8 X 10^3 (0.0-1.0); MONOCYTES % (AUTO) 8 % (0-12); NEUTROPHILS # (AUTO) 6.6 X 10^3 (1.8-7.8); NEUTROPHILS % (AUTO) 69 % (42-75); PLATELET COUNT 168 10^3/uL (130-400); RED CELL DISTRIBUTION WIDTH 15.5 % (10.0-14.5); WHITE BLOOD COUNT 9.5 10^3/uL (4.3-11.0)
[2018-05-23 06:50] LABS: ALANINE AMINOTRANSFERASE 24 U/L (0-55); ALBUMIN 3.9 GM/DL (3.2-4.5); ALKALINE PHOSPHATASE 48 U/L (40-136); BILIRUBIN,TOTAL 0.7 MG/DL (0.1-1.0); BUN/CREATININE RATIO 14; CALCIUM 8.4 MG/DL (8.5-10.1); CARBON DIOXIDE 19 MMOL/L (21-32); CHLORIDE 111 MMOL/L (98-107); CREATININE SERUM 1.27 MG/DL (0.60-1.30); GFR ESTIMATED > 60; GLUCOSE 98 MG/DL (70-105); POTASSIUM 2.8 MMOL/L (3.6-5.0); SODIUM 138 MMOL/L (135-145); TOTAL PROTEIN 6.2 GM/DL (6.4-8.2)
[2018-05-23 08:00] VITALS: BP 106/69
[2018-05-23] MEDS: ASPIRIN 81 MG CHEW (CHILDREN'S ASA) PO SCH (09:09)
[2018-05-23] MEDS: meTOprolol TARTRATE 25 MG (LOPRESSOR) TABLET PO SCH ×2 (09:09→21:35)
[2018-05-23] MEDS: NIFEdipine ER 30 MG (PROCARDIA XL) TAB PO SCH (09:09)
[2018-05-23] MEDS: FAMOTIDINE 20 MG (PEPCID) TABLET PO SCH ×2 (09:09→21:31)
--- NOTE | 2018-05-23 09:20 | Progress Note (SOAP) ---
Subjective Subjective/Events-last exam Patient is feeling much better today than yesterday. He reports he has an appetite. Review of Systems Date Seen by Provider: May 23, 2018 Time Seen by Provider: 08:00 Objective Exam Last Set of Vital Signs Vital Signs Date Time Temp Pulse Resp B/P (MAP) Pulse Ox O2 Delivery O2 Flow Rate FiO2 05/23/18 08:00 97.1 87 18 106/69 (81) 99 Room Air Capillary Refill : Less Than 3 Seconds I&O Intake and Output 05/23/18 00:00 Intake Total 4809 ml Balance 4809 ml Intake Oral 3609 ml IV Total 1200 ml # Voids 5 # Bowel Movements 6 General: No Acute Distress Lungs: Clear to Auscultation Heart: Regular Rate Abdomen: Soft, Other (Obese) Skin: No Rashes Neuro: Normal Speech Psych/Mental Status: Mental Status NL Results/Procedures Lab Laboratory Tests 05/22/18 13:37: Glucometer 95 05/22/18 21:51: Glucometer 111H 05/23/18 05:55: White Blood Count 9.5, Red Blood Count 4.79, Hemoglobin 14.7, Hematocrit 43, Mean Corpuscular Volume 90, Mean Corpuscular Hemoglobin 31, Mean Corpuscular Hemoglobin Concent 34, Red Cell Distribution Width 15.5H, Platelet Count 168, Mean Platelet Volume 10.7H, Neutrophils (%) (Auto) 69, Lymphocytes (%) (Auto) 18 , Monocytes (%) (Auto) 8, Eosinophils (%) (Auto) 4, Basophils (%) (Auto) 0, Neutrophils # (Auto) 6.6, Lymphocytes # (Auto) 1.7, Monocytes # (Auto) 0.8, Eosinophils # (Auto) 0.4H, Basophils # (Auto) 0.0, Sodium Level 138, Potassium Level 2.8L, Chloride Level 111H, Carbon Dioxide Level 19L, Anion Gap 8, Blood Urea Nitrogen 18, Creatinine 1.27, Estimat Glomerular Filtration Rate > 60, BUN/ Creatinine Ratio 14, Glucose Level 98, Calcium Level 8.4L, Corrected Calcium 8.5 , Total Bilirubin 0.7, Aspartate Amino Transf (AST/SGOT) 20, Alanine Aminotransferase (ALT/SGPT) 24, Alkaline Phosphatase 48, Total Protein 6.2L, Albumin 3.9 05/23/18 06:00: Glucometer 99 Microbiology 05/21/18 Urine Culture - Final, Complete 3 or more isolates Assessment/Plan Assessment/Plan (1) Nausea vomiting and diarrhea Status: Acute Assessment & Plan: - Improved with IVFs, continue to monitor, CLD for lunch if tolerates then advance diet to ADA diet 05/23-Will advance diet -Replace potassium (2) Leukocytosis Status: Acute Assessment & Plan: - Improving with IVFs and antibiotics, cultures pending 05/23--urine culture revealed 3 or more isolates -Will give an additional day of IV antibiotics Qualifiers: Qualified Codes: D72.829 - Elevated white blood cell count, unspecified (3) Acute on chronic kidney failure Status: Acute Assessment & Plan: - Improving with IVFs, Reviewed meds and held Gabapentin, HCTZ, Allopurinol due to renal complications Qualifiers: Qualified Codes: N17.9 - Acute kidney failure, unspecified; N18.9 - Chronic kidney disease, unspecified (4) Urinary tract infection Status: Acute Assessment & Plan: - Culture pending, Currently on Zosyn to cover Colitis Qualifiers: Qualified Codes: N39.0 - Urinary tract infection, site not specified (5) Enterocolitis Status: Acute Assessment & Plan: - IVFs, CLD, if pain improved with advance (6) Non-insulin dependent type 2 diabetes mellitus Status: Chronic Assessment & Plan: - Accucheck achs (7) Essential (primary) hypertension Status: Chronic Clinical Quality Measures DVT/VTE Risk/Contraindication: Risk Factor Score Per Nursin RFS Level Per Nursing on Admit: 4+=Very High BARNEY OLIVIER MD May 23, 2018 09:20
[2018-05-23 13:15] VITALS: BP 128/83
[2018-05-23 15:30] VITALS: BP 143/75
[2018-05-23] MEDS: KCL 20 MEQ TAB (K-DUR) PO SCH (18:14)
[2018-05-23] MEDS: ATORVASTATIN 40 MG (LIPITOR) TABLET PO SCH (21:31)
[2018-05-23 21:33] VITALS: BP 122/74
[2018-05-24 00:15] VITALS: BP 126/83
[2018-05-24] MEDS: PIPERACILLIN/TAZO 4.5 GM/NS 100 ML IV SCH ×2 (01:54)
[2018-05-24 05:18] LABS: CARBON DIOXIDE 19 MMOL/L (21-32); CHLORIDE 113 MMOL/L (98-107); CREATININE SERUM 1.09 MG/DL (0.60-1.30); POTASSIUM 3.1 MMOL/L (3.6-5.0); SODIUM 139 MMOL/L (135-145)
[2018-05-24 05:19] LABS: BUN/CREATININE RATIO 12; CALCIUM 8.6 MG/DL (8.5-10.1); GFR ESTIMATED > 60; GLUCOSE 107 MG/DL (70-105)
[2018-05-24] MEDS: KCL 20 MEQ TAB (K-DUR) PO SCH (06:35)
[2018-05-24] MEDS: NS IV 1000 ML 1,000 ML IV SCH (06:35)
[2018-05-24 07:54] VITALS: BP 127/81
[2018-05-24] MEDS: FAMOTIDINE 20 MG (PEPCID) TABLET PO SCH (08:04)
[2018-05-24] MEDS: NIFEdipine ER 30 MG (PROCARDIA XL) TAB PO SCH (08:04)
[2018-05-24] MEDS: ASPIRIN 81 MG CHEW (CHILDREN'S ASA) PO SCH (08:05)
[2018-05-24] MEDS: meTOprolol TARTRATE 25 MG (LOPRESSOR) TABLET PO SCH (08:05)
--- NOTE | 2018-05-24 08:40 | Discharge Inst-Simple/Standard ---
Discharge Inst-Standard Discharge Medications New, Converted or Re-Newed RX: Other Patient Instructions/Follow Up Plan of Care/Instructions/FU: Follow-up with Dr. Horne within the week Activity as Tolerated: Yes Discharge Diet: Regular Diet Return to The Hospital For: Worsening fever or worsening diarrhea BARNEY OLIVIER MD May 24, 2018 08:40
--- NOTE | 2018-05-24 08:44 | Discharge Summary ---
Diagnosis/Chief Complaint Date of Admission May 21, 2018 at 22:19 Date of Discharge May 24, 2018 Admission Diagnosis Admission Diagnosis 1. Nausea/vomiting/diarrhea 2. Leukocytosis 3. Acute on chronic renal insufficiency 4. Urinary tract infection Discharge Diagnosis 1. Enterocolitis 2. Dehydration 3. Urinary tract infection 4. Diabetes mellitus 5. Hypertensionknown Problems/Diagnosis: (1) Nausea vomiting and diarrhea Assessment & Plan: - Improved with IVFs, continue to monitor, CLD for lunch if tolerates then advance diet to ADA diet 05/23-Will advance diet -Replace potassium Status: Acute (2) Leukocytosis Assessment & Plan: - Improving with IVFs and antibiotics, cultures pending 05/23--urine culture revealed 3 or more isolates -Will give an additional day of IV antibiotics Qualifiers: Qualified Codes: D72.829 - Elevated white blood cell count, unspecified Status: Acute (3) Acute on chronic kidney failure Assessment & Plan: - Improving with IVFs, Reviewed meds and held Gabapentin, HCTZ, Allopurinol due to renal complications Qualifiers: Qualified Codes: N17.9 - Acute kidney failure, unspecified; N18.9 - Chronic kidney disease, unspecified Status: Acute (4) Urinary tract infection Assessment & Plan: - Culture pending, Currently on Zosyn to cover Colitis Qualifiers: Qualified Codes: N39.0 - Urinary tract infection, site not specified Status: Acute (5) Enterocolitis Assessment & Plan: - IVFs, CLD, if pain improved with advance Status: Acute (6) Non-insulin dependent type 2 diabetes mellitus Assessment & Plan: - Accucheck achs Status: Chronic (7) Essential (primary) hypertension Status: Chronic Chief Complaint/HPI Chief Complaint/HPI 47 yo M with multiple comorbidities that presented with abdominal pain that started around 3 am prior to presentation. Patient denies any fever or chills. States that he had been feeling nauseous and had vomited a couple times and then started have diarrhea. Denies any other sick contacts. No new foods. He was also found to have an elevated Cr and WBC count with UTI. Discharge Summary-Simple/Stand Consultations Discharge Physical Examination Allergies: Coded Allergies: No Known Drug Allergies (Unverified , 12/21/17) Vitals & I&Os Vital Sign - Last 12Hours Date Time Temp Pulse Resp B/P (MAP) Pulse Ox O2 Delivery O2 Flow Rate FiO2 05/24/18 07:54 97.0 75 22 127/81 (96) 97 Room Air Intake and Output 05/24/18 00:00 Intake Total 2610 ml Balance 2610 ml Hospital Course See final discharge diagnosis. Discharge Instructions to patient/family Please see electronic discharge instructions given to patient. Discharge Medications Reviewed and agree with Discharge Medication list on patient's Discharge Instruction sheet Clinical Quality Measures DVT/VTE Risk/Contraindication: Risk Factor Score Per Nursin RFS Level Per Nursing on Admit: 4+=Very High Copy Copies To 1: ÁNGEL CASPER MD, DANIEL J MD May 24, 2018 08:44
--- NOTE | 2018-05-24 11:25 | NUR ---
DREW HILL demonstrates understanding of discharge instructions and accurately returns instructions upon questioning. Copy of Post-Discharge Instructions and Medication Discharge Instructions given to . DREW HILL is able to manage continuing needs after discharge. Patients belongings returned to patient. Skin dry and intact; no breakdown noted. Patient discharged from 424-1 on at . DREW HILL left floor via wheelchair, accompanied by staff member.
[2018-05-24 12:17] VITALS: BP 127/81
== END 2018-05-24 08:37 | disposition home or self-care (01) ==
LOC: EDUNIT# 16:15 → ER 16:16 → 4TH 22:19
PROVIDERS: ADMIT Family Medicine; ATTEND Family Medicine
DX: K52.9 Noninfective gastroenteritis and colitis, unspecified (principal); E86.0 Dehydration; N39.0 Urinary tract infection, site not specified; E11.22 Type 2 diabetes mellitus with diabetic chronic kidney disease; I12.9 Hypertensive chronic kidney disease with stage 1 through stage 4 chronic kidney disease, or unspecified chronic kidney disease; D72.829 Elevated white blood cell count, unspecified; N17.9 Acute kidney failure, unspecified; N18.9 Chronic kidney disease, unspecified; J44.9 Chronic obstructive pulmonary disease, unspecified; G25.81 Restless legs syndrome; F17.210 Nicotine dependence, cigarettes, uncomplicated; E78.00 Pure hypercholesterolemia, unspecified; Z87.442 Personal history of urinary calculi; K21.9 Gastro-esophageal reflux disease without esophagitis; E66.01 Morbid (severe) obesity due to excess calories; F31.9 Bipolar disorder, unspecified; F41.9 Anxiety disorder, unspecified; Z68.42 Body mass index [BMI] 45.0-49.9, adult
CPT/HCPCS: 36415; 74019; 80048; 80053; 81000; 82962; 83690; 83735; 85007; 85025; 85027; 85652; 86141; 87088; 96361; 96365; 96375; G0378

== ENCOUNTER 2018-07-11 11:50 | Emergency (ER) | payer MEDICAID ==
[~2018-07-11] VITALS: Ht 177.8 cm; Wt 152.0 kg
[~2018-07-11 11:50] MED LIST changes: +GBPN600T PO; +NF-SOLIF5T PO; +NIFE30TA89 PO; +PHEN-483 PO; +PHOS250T5 PO; +POTA-51 PO; +ROPI5TAB3 PO; +SUCR1TAB36 PO
--- OUTSIDE RECORDS SUMMARY | 2018-07-11 11:56 | XMS REPORT ---
Author Author Migration, Doctor Organization [facility] Address Unknown Phone Unavailable Care Team Providers Care Homicide Squad Commanding Officer Name Role Phone Migration, Doctor Unavailable Unavailable PROBLEMS Type Condition ICD9-CM Code [id number] Code Onset Dates Condition Status SNOMED Code Problem Type 2 diabetes with stage 3 chronic kidney disease GFR 30-59 E11.22 Oct, Active 617829414 Problem DM (diabetes mellitus), type 2 E11.9 July, Active 69712517 Problem Secondary polycythemia D75.1 Oct, Active 77254141 Problem Pure hypercholesterolemia E78.00 July, Active 441874654 Problem Thoracic back pain M54.6 Aug, Active 691411103 Problem Primary osteoarthritis of right knee M17.11 Nov, Active 734472141 Problem Right inguinal hernia K40.90 Jun, Active 632762930 Problem Lumbar back pain M54.5 Aug, Active 058541541 Problem Benign essential hypertension I10 Active 3089304 Problem Reflux esophagitis K21.0 Nov, Active 257616420 Problem Seizure R56.9 May, Active 61613028 Problem Body mass index (BMI) of 40.0-44.9 in adult Z68.41 Active 469179974 Problem Fatty liver K76.0 Jun, Active 122774663 Problem Strain of hip flexor S76.019A Jun, Active Problem Hypotestosteronemia in male E29.1 Active 9823095065462 Problem Morbid obesity with BMI of 50.0-59.9, adult E66.01 Oct, Active 124391345 Problem Patellofemoral arthritis of left knee M17.12 Aug, Active 055143008 Problem COPD (chronic obstructive pulmonary disease) J44.9 Oct, Active 30892065 Problem Morbid (severe) obesity due to excess calories E66.01 Active 584408231 Problem Hypotestosteronism E34.9 Active 4005618281700 Problem Type 2 diabetes mellitus without complication, without long-term current use of insulin E11.9 Active 853956218 ALLERGIES No Information ENCOUNTERS Encounter [facility] Date [facility] [address] [address] Jun, Morbid obesity E66.01 ; Lateral epicondylitis of left elbow M77.12 ; BMI 45.0-49.9, adult Z68.42 and Hypotestosteronemia in male E29.1 [facility] [address] [address] Jun, Acute cystitis with hematuria N30.01 ; Morbid obesity E66.01 and Dysuria R30.[address] [address] Jun, Hypotestosteronism E34.9 [facility] [address] [address] Jun, [address] [address] Jun, [facility] [address] [address] May, [facility] [address] [address] May, [facility] [address] [address] May, Morbid obesity E66.01 ; Enterocolitis K52.9 ; BMI 45.0-49.9, adult Z68.42 and Hypotestosteronemia in male E29.1 [facility] [address] [address] May, [facility] [address] [address] May, [facility] [address] [address] May, Hypotestosteronism E34.9 [facility] [address] [address] May, [facility] [id number] [place] [address] Apr, [facility] [address] [address] [address] Apr, BMI 45.0-49.9, adult Z68.42 ; Morbid (severe) obesity due to excess calories E66.01 ; Type 2 diabetes mellitus without complication, without long- term current use of insulin E11.9 and Hypotestosteronemia in male E29.1 [facility] [address] [address] Apr, [place] [address] [address] Apr, [address] [address] Apr, [address] [address] Apr, Type 2 diabetes mellitus with diabetic chronic kidney disease, unspecified CKD stage, unspecified whether detention insulin use E11.22 [place] [address] [address] 11 Apr, 2018 Pain R52 [place] [id number] [place] [address] 06 Apr, 2018 Hypotestosteronism E34.9 [facility] [address] [address] Apr, [address] [address] Apr, Knee pain, unspecified chronicity, unspecified laterality M25.569 [facility] [place] [address] [address] Apr, [facility] [address] [address] Apr, [address] [address] Apr, BMI 45.0-49.9, adult Z68.42 ; Body mass index (BMI) of 40.0-44.9 in adult Z68.41 ; Morbid (severe) obesity due to excess calories E66.01 ; Type 2 diabetes mellitus without complication, without long-term current use of insulin E11.9 ; Benign essential hypertension I10 and Hypotestosteronism E34.9 [facility] [address] [place] [id number] [place] [address] Mar, [facility] [address] [place] [address] [id number] [place] [address] Jan, [facility] [address] [place] [id number] [place] [address] Jan, [facility] [address] [address] Jan, [facility] [address] [place] [id number] [place] [address] Jan, [facility] [address] [address] Jan, [facility] [address] [id number] [place] [address] Jan, [facility] [address] [place] [address] [id number] [place] [address] Aug, [facility]ALK IN [facility] [id number] [place] [address] May, Left lower quadrant pain R10.32 and BMI 50.0-59.9, adult Z68.43 [facility] IN [facility] [id number] [place] [address] Jan, BMI 50.0-59.9, adult Z68.43 ; BMI 60.0-69.9, adult Z68.44 and Gum abscess K05.219 [facility] [address] [id number] [place] [address] Nov, [facility] [address] [id number] Oct, Dental examination Z01.20 [facility] [address] [id number] [id number] Oct, Dental examination Z01.20 [facility] [address] [id number] [id number] Jan, Dental examination Z01.20 [facility] [address] [facility] [id number] [address] Jun, [facility] [id number] [place] [address] Jun, [facility] [address] [id number] [address] Oct, [facility] [address] [facility] [id number] [place] [address] Oct, [facility] [address] [facility] [id number] [address] Oct, [facility] [address] [facility] [id number] [address] Oct, [facility] [address] [facility] [id number] [address] Oct, [facility] [address] [facility] [id number] [address] Oct, [facility] [address] [facility] [id number] [address] Oct, [facility] [address] [facility] [id number] [address] Aug, [facility] [address] [facility] [id number] [address] Aug, [facility] [address] [facility] [id number] [place] [address] Aug, [facility] [address] [facility] [id number] [place] [address] Aug, IMMUNIZATIONS No Known Immunizations SOCIAL HISTORY Never Assessed REASON FOR VISIT EMR-[facility] [place] PLAN OF CARE VITAL SIGNS MEDICATIONS No Known Medications RESULTS No Results PROCEDURES No Known procedures INSTRUCTIONS MEDICATIONS ADMINISTERED No Known Medications MEDICAL (GENERAL) HISTORY Type Description Date Medical History Seizures Medical History Type 2 diabetes mellitus Medical History COPD (chronic obstructive pulmonary disease) Medical History Reflux esophagitis Medical History Hypercholesterolemia Medical History Hypercholesterolemia Medical History Morbid obesity Medical History Lumbar back pain Medical History Thoracic back pain Medical History Hypotestosteronism Medical History Strain of hip flexor Medical History Right inguinal hernia Medical History Fatty liver Medical History Patellofemoral arthritis of left knee Medical History Secondary polycythemia Surgical History back surgery 2004 Surgical History galbladder 2009 Surgical History finger 1995
--- OUTSIDE RECORDS SUMMARY | 2018-07-11 11:56 | XMS REPORT ---
Author Author Migration, Doctor Organization [facility] Address Unknown Phone Unavailable Care Team Providers Care Business Computers Teacher Name Role Phone Migration, Doctor Unavailable Unavailable PROBLEMS Type Condition ICD9-CM Code [id number] Code Onset Dates Condition Status SNOMED Code Problem Type 2 diabetes with stage 3 chronic kidney disease GFR 30-59 E11.22 Oct, Active 337959541 Problem DM (diabetes mellitus), type 2 E11.9 July, Active 31007257 Problem Secondary polycythemia D75.1 Oct, Active 66441208 Problem Pure hypercholesterolemia E78.00 July, Active 322616588 Problem Thoracic back pain M54.6 Aug, Active 017161682 Problem Primary osteoarthritis of right knee M17.11 Nov, Active 112658137 Problem Right inguinal hernia K40.90 Jun, Active 636818401 Problem Lumbar back pain M54.5 Aug, Active 277296034 Problem Benign essential hypertension I10 Active 2740656 Problem Reflux esophagitis K21.0 Nov, Active 801130183 Problem Seizure R56.9 May, Active 55131043 Problem Body mass index (BMI) of 40.0-44.9 in adult Z68.41 Active 167396003 Problem Fatty liver K76.0 Jun, Active 495777841 Problem Strain of hip flexor S76.019A Jun, Active Problem Hypotestosteronemia in male E29.1 Active 8718570109218 Problem Morbid obesity with BMI of 50.0-59.9, adult E66.01 Oct, Active 804015927 Problem Patellofemoral arthritis of left knee M17.12 Aug, Active 302032244 Problem COPD (chronic obstructive pulmonary disease) J44.9 Oct, Active 60432695 Problem Morbid (severe) obesity due to excess calories E66.01 Active 305640053 Problem Hypotestosteronism E34.9 Active 6566177150341 Problem Type 2 diabetes mellitus without complication, without long-term current use of insulin E11.9 Active 183678063 ALLERGIES No Information ENCOUNTERS Encounter Location Date Diagnosis [facility] [address] [address] Jun, Type 2 diabetes mellitus without complication, without long- term current use of insulin E11.9 [facility] [address] [address] Jun, Morbid obesity E66.01 ; Lateral epicondylitis of left elbow M77.12 ; BMI 45.0-49.9, adult Z68.42 and Hypotestosteronemia in male E29.1 [facility] [address] [facility] [id number] [address] Jun, Acute cystitis with hematuria N30.01 ; Morbid obesity E66.01 and Dysuria R30.0 [facility] [address] [address] Jun, Hypotestosteronism E34.[address] [address] Jun, [address] [address] Jun, [facility] [id number] [address] May, [facility] [address] [address] May, [address] [address] May, Morbid obesity E66.01 ; Enterocolitis K52.9 ; BMI 45.0-49.9, adult Z68.42 and Hypotestosteronemia in male E29.1 [facility] [address] [address] May, [address] [address] May, [facility] [address] [facility] [id number] [address] May, Hypotestosteronism E34.9 [place] [id number] [address] May, [facility] [address] [address] Apr, [facility] [address] [address] Apr, BMI 45.0-49.9, adult Z68.42 ; Morbid (severe) obesity due to excess calories E66.01 ; Type 2 diabetes mellitus without complication, without long- term current use of insulin E11.9 and Hypotestosteronemia in male E29.1 [facility] [address] [address] Apr, [facility] [address] [address] Apr, [facility] [address] [address] Apr, [facility] [address] [address] Apr, Type 2 diabetes mellitus with diabetic chronic kidney disease, unspecified CKD stage, unspecified whether long term care pharmacist insulin use E11.22 [facility] [address] [address] Apr, Pain R52 [place] [id number] [address] Apr, Hypotestosteronism E34.9 [facility] [address] [address] [address] Apr, [facility] [address] [address] Apr, Knee pain, unspecified chronicity, unspecified laterality M25.569 [facility] [address] [address] Apr, [facility] GARCIA [address] [address] Apr, [facility] [address] [address] 04 Apr, 2018 BMI 45.0-49.9, adult Z68.42 ; Body mass index (BMI) of 40.0-44.9 in adult Z68.41 ; Morbid (severe) obesity due to excess calories E66.01 ; Type 2 diabetes mellitus without complication, without long-term current use of insulin E11.9 ; Benign essential hypertension I10 and Hypotestosteronism E34.9 [place] [address] [place] [address] [id number] [place] [address] Mar, [place] [id number] [place] [address] Jan, [place] [id number] [place] [address] Jan, [place] [address] [id number] [place] [address] Jan, [place] [id number] [place] [address] Jan, [place] [id number] [place] [address] Jan, [place] [id number] [place] [address] Jan, [place] [id number] [place] [address] Aug, [facility] [id number] [place] [address] May, Left lower quadrant pain R10.32 and BMI 50.0-59.9, adult Z68.43 [facility] [place] [id number] [place] [address] Jan, BMI 50.0-59.9, adult Z68.43 ; BMI 60.0-69.9, adult Z68.44 and Gum abscess K05.219 [facility] [place] [id number] [place] [address] Nov, [facility] [address] [id number] [place] [id number] Oct, Dental examination Z01.20 [facility] [address] [id number] [place] [id number] Oct, Dental examination Z01.20 [facility] [address] [id number] [place] [id number] Jan, Dental examination Z01.20 [facility] [address] [id number] [place] [address] Jun, [facility] [address] [id number] [place] [address] Jun, [facility] [address] [id number] [place] [address] Oct, [facility] [address] [id number] [place] [address] Oct, [facility] [address] [id number] [place] [address] Oct, [facility] [address] [id number] [place] Oct, [facility] [address] [id number] [place] Oct, [facility] [address] [id number] [place] [address] Oct, [facility] [address] [id number] [place] [address] Oct, [facility] [address] [id number] [place] [address] Aug, [facility] [address] [id number] [place] [address] Aug, [facility] [address] [id number] [place] [address] Aug, [facility] [address] [facility] [id number] [place] [address] Aug, IMMUNIZATIONS No Known Immunizations SOCIAL HISTORY Never Assessed REASON FOR VISIT [place] [place] PLAN OF CARE VITAL SIGNS MEDICATIONS Unknown Medications RESULTS No Results PROCEDURES No Known [...] History Secondary polycythemia Surgical History back surgery 2003 Surgical History galbladder 2010 Surgical History finger 1995
--- OUTSIDE RECORDS SUMMARY | 2018-07-11 11:56 | XMS REPORT ---
Author Author Migration, Doctor Organization [facility] Address Unknown Phone Unavailable Care Team Providers Care Business Services Manager Name Role Phone Migration, Doctor Unavailable Unavailable PROBLEMS Type Condition ICD9-CM Code CGZ75-JO Code Onset Dates Condition Status SNOMED Code Problem Type 2 diabetes with stage 3 chronic kidney disease GFR 30-59 E11.22 Oct, Active 379371823 Problem DM (diabetes mellitus), type 2 E11.9 July, Active 55492544 Problem Secondary polycythemia D75.1 Oct, Active 37692550 Problem Pure hypercholesterolemia E78.00 July, Active 163655761 Problem Thoracic back pain M54.6 Aug, Active 463983397 Problem Primary osteoarthritis of right knee M17.11 Nov, Active 904778084 Problem Right inguinal hernia K40.90 Jun, Active 512114803 Problem Lumbar back pain M54.5 Aug, Active 951785826 Problem Benign essential hypertension I10 Active 9973581 Problem Reflux esophagitis K21.0 Nov, Active 601976456 Problem Seizure R56.9 May, Active 60957628 Problem Body mass index (BMI) of 40.0-44.9 in adult Z68.41 Active 511331693 Problem Fatty liver K76.0 Jun, Active 056231898 Problem Strain of hip flexor S76.019A Jun, Active Problem Hypotestosteronemia in male E29.1 Active 1319869779839 Problem Morbid obesity with BMI of 50.0-59.9, adult E66.01 Oct, Active 095020879 Problem Patellofemoral arthritis of left knee M17.12 Aug, Active 744870364 Problem COPD (chronic obstructive pulmonary disease) J44.9 Oct, Active 47473334 Problem Morbid (severe) obesity due to excess calories E66.01 Active 435168530 Problem Hypotestosteronism E34.9 Active 2167968595677 Problem Type 2 diabetes mellitus without complication, without long-term current use of insulin E11.9 Active 543985089 ALLERGIES No Information ENCOUNTERS Encounter Location Date Diagnosis [facility] [address] [address] Jun, [address] [address] Jun, [facility] [address] [address] May, [facility] [address] [address] May, [address] [address] May, Morbid obesity E66.01 ; Enterocolitis K52.9 ; BMI 45.0-49.9, adult Z68.42 and Hypotestosteronemia in male E29.1 [facility] [address] [address] May, [address] [address] May, [facility] [address] [address] May, Hypotestosteronism E34.9 [facility] [address] [address] May, [facility] [address] [address] Apr, [address] [address] Apr, BMI 45.0-49.9, adult Z68.42 ; Morbid (severe) obesity due to excess calories E66.01 ; Type 2 diabetes mellitus without complication, without long- term current use of insulin E11.9 and Hypotestosteronemia in male E29.1 [facility] [address] [address] Apr, [facility] [address] [address] Apr, [facility] [address] [address] Apr, [address] [address] Apr, Type 2 diabetes mellitus with diabetic chronic kidney disease, unspecified CKD stage, unspecified whether termite helper insulin use E11.22 [facility] [address] [address] Apr, Pain R52 [facility] [address] [address] Apr, Hypotestosteronism E34.[address] [address] Apr, [address] [address] Apr, Knee pain, unspecified chronicity, unspecified laterality M25.569 [facility] [address] [address] Apr, [facility] [address] [address] Apr, [address] [address] Apr, BMI 45.0-49.9, adult Z68.42 ; Body mass index (BMI) of 40.0-44.9 in adult Z68.41 ; Morbid (severe) obesity due to excess calories E66.01 ; Type 2 diabetes mellitus without complication, without long-term current use of insulin E11.9 ; Benign essential hypertension I10 and Hypotestosteronism E34.9 [facility] [address] [facility] [id number] [address] Mar, [facility] [address] [address] Jan, [facility] [id number] [address] Jan, [facility] [address] [place] [address] Jan, [facility] [id number] [place] [address] Jan, [facility] [id number] [place] [address] Jan, [facility] [id number] [place] [address] Jan, [facility] [id number] [place] [address] Aug, [facility] [id number] [place] [address] May, Left lower quadrant pain R10.32 and BMI 50.0-59.9, adult Z68.43 [facility] [id number] [place] [address] Jan, BMI 50.0-59.9, adult Z68.43 ; BMI 60.0-69.9, adult Z68.44 and Gum abscess K05.219 [facility] [id number] [place] [address] Nov, [facility] [id number] [place] [id number] Oct, Dental examination Z01.20 [facility] [id number] [place] [id number] Oct, Dental examination Z01.20 [facility] [id number] [place] [id number] Jan, Dental examination Z01.20 [facility] [id number] [place] [address] Jun, [facility] [id number] [place] [address] Jun, [facility] [id number] [place] [address] Oct, [facility] [address] [facility] [id number] [address] Oct, [facility] [address] [facility] [id number] [address] Oct, [facility] [address] [facility] [id number] [address] Oct, [facility] [address] [facility] [id number] [address] Oct, [facility] [address] [facility] [id number] [address] Oct, [facility] [address] [facility] [id number] [address] Oct, [facility] [address] [address] Aug, [facility] [address] [address] Aug, [facility] [address] [address] Aug, [facility] [address] [address] Aug, IMMUNIZATIONS No Known Immunizations SOCIAL HISTORY Never Assessed REASON FOR VISIT EMR-[facility] PLAN OF CARE VITAL SIGNS MEDICATIONS Medication Instructions Dosage Frequency Start Date End Date Duration Status Ventolin HFA 90 mcg/actuation Aug, Active Advair Diskus 250-50 mcg/dose inhale 1 puff by inhalation route 2 times per day in the morning and evening approximately 12 hours apart Aug, Active Lisinopril 10 mg take 1 tablet (10 mg) by oral route once daily Aug Active Seroquel 300 mg take 2 tablets (600 mg) by oral route once daily Aug Active Hydrocodone-Acetaminophen 5-500 mg take 1 tablet by oral route every 6 hours as needed for painPRN Aug, Active Ibuprofen 800 mg 1 Tablet every 8 hours Aug, Active Lipitor 10 mg take 1 tablet (10 mg) by oral route once daily Aug, Active Metoprolol Tartrate 50 mg 0.5 Tablet every 12 hours Aug, Active Requip 2 mg 1 Tablet 1 time per day Aug, Active Clonazepam 0.5 mg take 1 tablet (0.5 mg) by oral route 3 times per day Aug, Active Aspirin 81 mg take 1 tablet (81 mg) by oral route once daily Aug, Active Topiragen 100 mg 1 Tablet 2 times per day Aug, Active Loratadine 10 mg take 1 tablet (10 mg) by oral route once daily Aug Active Lovaza 1 gram 1 Capsule 2 times per day Aug, Active Tricor 145 mg take 1 tablet (145 mg) by oral route once daily Aug, Active Epitol 200 mg take 1 tablet (200 mg) by oral route every 8 hours Aug Active venlafaxine 75 mg take 1 capsule (75 mg) by oral route once daily Aug, Active cyclobenzaprine 10 mg take 1 tablet (10 mg) by oral route 3 times per day Aug, Active PredniSONE 20 mg 3 tablet by Oral route 1 time per day for 5 day(s) Aug, Active RESULTS No Results PROCEDURES No Known [...]
--- OUTSIDE RECORDS SUMMARY | 2018-07-11 11:56 | XMS REPORT | Clinical Summary ---
Author Author [facility] Organization [facility] Address Unknown Phone Unavailable Care Team Providers Care Qual Field Manager Name Role Phone Carey Boland RN Unavailable Unavailable Self, Referral PCP Unavailable Renny Eisenberg MD Unavailable Source Comments Some departments are not documenting in the electronic medical record. If you do not see the information that you expected, contact Release of Information in the Health Information Management department at [phone] for further assistance in locating additional records.[facility] Allergies No Known Allergies Medications End [...] VACCINES (1 - 11/07/1987 Tdap) INFLUENZA VACCINE 12/01/2018 Results Not on filefrom Last 3 Months
[2018-07-11] MEDS ORDERED: HYDROcodone/APAP 5 MG/325 MG (LORTAB) TAB PO ONE (12:30)
[2018-07-11] MEDS ORDERED: KETOROLAC 60 MG/2 ML VIAL IM ONE (12:30)
--- NOTE | 2018-07-11 12:34 | ED Back Pain ---
General Chief Complaint: Back Problems Stated Complaint: BACK PAIN Nursing Triage Note: PT AMB TO TRIAGE WITH COMPLAINT OF LEFT LOWER BACK PAIN. PT STATES HAD PAIN FOR 1 WEEK. Nursing Sepsis Screen: No Definite Risk Source of Information: Patient Exam Limitations: No Limitations History of Present Illness Date Seen by Provider: July 11, 2018 Time Seen by Provider: 12:33 Initial Comments To ER with a one-week history of intermittent left flank pain. Today it is ( draft around to the left anterior lower abdomen. No fevers chills nausea or vomiting. He reports chronic unchanged urinary frequency. Reports chronic blood in his urine. Unfortunately he is too large to fit in our CT scanner. Location: Lumbar Spine Timing/Duration: 1 Week Severity: Moderate Associated Symptoms: lower back pain Allergies and Home Medications Allergies Coded Allergies: No Known Drug Allergies (Unverified , 12/21/17) Home Medications Aripiprazole 20 Mg Tablet, 20 MG PO DAILY, (Reported) Aspirin 81 Mg Tablet.dr, 81 MG PO DAILY, (Reported) Atorvastatin Calcium 40 Mg Tablet, 40 MG PO HS Prescribed by: MIGUEL SARABIA on 07/04/17 1438 Bupropion HCl 100 Mg Tablet, 200 MG PO DAILY, (Reported) Bupropion HCl 100 Mg Tablet, 200 MG PO NOON, (Reported) Dicyclomine HCl 10 Mg Capsule, 10 MG PO QID, (Reported) Famotidine 20 Mg Tablet, 20 MG PO BID, (Reported) Fenofibrate,Micronized 145 Mg Tablet, 145 MG PO DAILY, (Reported) Gabapentin 300 Mg Capsule, 300 MG PO BID, (Reported) 300mg in am, 300mg at noon Gabapentin 600 Mg Tablet, 600 MG PO HS, (Reported) Hyoscyamine Sulfate 0.125 Mg Tablet, 0.125 MG PO QID PRN for SPASMS, (Reported) L.acidoph & Paracasei,B.lactis 1 Each Capsule, 1 EACH PO DAILY, (Reported) Mesalamine 1.2 Gm Tablet.dr, 4.8 GM PO DAILY, (Reported) Metoprolol Tartrate 25 Mg Tablet, 25 MG PO BID, (Reported) Multivitamin 1 Each Tablet, 1 EACH PO DAILY, (Reported) Nifedipine 30 Mg Tablet.er, 30 MG PO DAILY, (Reported) [place]-3 Acid Ethyl Esters 1 Gm Capsule, 2 G PO BID WITH MEALS, (Reported) Phentermine HCl 37.5 Mg Capsule, 37.5 MG PO DAILY, (Reported) Potassium Chloride 20 Meq Tablet.er, 20 MEQ PO BID, (Reported) Ropinirole HCl 5 Mg Tablet, 5 MG PO TID, (Reported) Solifenacin Succinate 5 Mg Tablet, 5 MG PO DAILY, (Reported) DAILY AT 0900 Sucralfate 1 Gm Tablet, 1 GM PO BID, (Reported) TWICE DAILY AT 1200 AND 2100 Topiramate 200 Mg Tablet, 200 MG PO BID, (Reported) Tramadol HCl 50 Mg Tablet, 50 MG PO QID Prescribed by: RUDY MEREDITH on 08/25/17 0131 Patient Home Medication List Home Medication List Reviewed: Yes Review of Systems Constitutional: see HPI; No chills EENTM: see HPI Respiratory: no symptoms reported Cardiovascular: no symptoms reported Genitourinary: see HPI, dysuria Musculoskeletal: no symptoms reported Skin: no symptoms reported Psychiatric/Neurological: No Symptoms Reported Past Ttygesj-Pijlgn-Hjfmet Hx Patient Social History Alcohol Use: Denies Use Number of Drinks Today: AA Alcohol Beverage of Choice: Beer Recreational Drug Use: No Drug of Choice: Hx of SPEED, COCAINE usage Smoking Status: Current Everyday Smoker Type Used: Cigarettes Former Smoker, Quit: Jun 04, 2017 Recent Foreign Travel: No Contact w/Someone Who Travel: No Recent Infectious Disease Expo: No Recent Hopitalizations: No Immunizations Up To Date Tetanus Booster (TDap): Unknown PED Vaccines UTD: No Date of Pneumonia Vaccine: May 22, 2016 Date of Influenza Vaccine: Dec 01, 2017 Seasonal Allergies Seasonal Allergies: No Past Medical History Surgeries: Yes (LAP EVELIO, BACK SURGERY, FINGER; LITHOTRIPSY ) Cardiac, Gallbladder, Orthopedic, Renal Respiratory: Yes (C-PAP MACHINE) Sleep Apnea, COPD Currently Using CPAP: Yes Currently Using BIPAP: No Cardiac: Yes High Cholesterol, Hypertension Neurological: No Reproductive Disorders: No Sexually Transmitted Disease: No HIV/AIDS: No Genitourinary: Yes Kidney Stones, Renal Failure Gastrointestinal: Yes (S/P EVELIO; FATTY LIVER ON CT. ) Colitis, Gastroesophageal Reflux, Gall Bladder Disease Musculoskeletal: Yes Arthritis, Chronic Back Pain Endocrine: Yes (MORBID OBESITY) Diabetes, Non-Insulin dep HEENT: Yes (POOR DENTITION) Cancer: No Psychosocial: Yes (BIPOLAR, POLYSUBSTANCE ABUSE) Anxiety, Bipolar, Depression Integumentary: No Blood Disorders: No Adverse Reaction/Blood Tranf: No Family Medical History Completed stroke DVT 19 MOTHER, , Onset:Unknown Diabetes mellitus 19 MOTHER, , Onset:Unknown G8 BROTHER, Onset:Unknown FH: gastric ulcer 19 FATHER, Onset:Unknown No Pertinent Family Hx Physical Exam Vital Signs Vital Signs - First Documented 07/11/18 11:55 Temp 97.7 Pulse 90 Resp 20 B/P (MAP) 146/99 (115) Pulse Ox 97 O2 Delivery Room Air Capillary Refill : Less Than 3 Seconds Height, Weight, BMI Height: 5'10.00" Weight: 330lbs. 3.0oz. [id number]; 46.2 BMI Method:Stated General Appearance: No Apparent Distress, WD/WN, Obese HEENT: PERRL/EOMI, TMs Normal Neck: Full Range of Motion, Normal Inspection Respiratory: No Accessory Muscle Use, No Respiratory Distress Gastrointestinal: Normal Bowel Sounds, Non Tender, Soft Back: CVA Tenderness (L) Extremity: Normal Capillary Refill, Normal Inspection Neurologic/Psychiatric: Alert, Oriented x3 Skin: Normal Color, Warm/Dry Progress/Results/Core Measures Results/Orders Lab Results Laboratory Tests Test 07/11/18 12:31 Range/Units Urine Color YELLOW Urine Clarity SLIGHTLY CLOUDY Urine pH 7 5-9 Urine Specific [place] 1.010 L 1.016-1.022 Urine Protein NEGATIVE NEGATIVE Urine Glucose (UA) NEGATIVE NEGATIVE Urine Ketones NEGATIVE NEGATIVE Urine Nitrite POSITIVE H NEGATIVE Urine Bilirubin NEGATIVE NEGATIVE Urine Urobilinogen NORMAL NORMAL MG/DL Urine Leukocyte Esterase 1+ H NEGATIVE Urine RBC (Auto) NEGATIVE NEGATIVE Urine RBC NONE /HPF Urine WBC 10-25 H /HPF Urine Crystals NONE /LPF Urine Bacteria LARGE H /HPF Urine Casts NONE /LPF Urine Mucus SMALL H /LPF Urine Culture Indicated YES My Orders Orders - LOGAN SNELL APRN Ketorolac Injection (Toradol Injection) (07/11/18 12:30) Hydrocodone/Apap 5/325 Tablet (Lortab 5 (07/11/18 12:30) Ua Culture If Indicated (07/11/18 12:26) Urine Culture (07/11/18 12:31) Medications Given in ED Current Medications Medications Dose Ordered Sig/Saba Route Start Time Stop Time Status Last Admin Dose Admin Acetaminophen/ Hydrocodone Bitart 1 tab ONCE ONCE PO 07/11/18 12:30 07/11/18 12:31 DC 07/11/18 12:34 1 TAB Ketorolac Tromethamine 60 mg ONCE ONCE IM 07/11/18 12:30 07/11/18 12:31 DC 07/11/18 12:34 60 MG Vital Signs/I&O 07/11/18 11:55 Temp 97.7 Pulse 90 Resp 20 B/P (MAP) 146/99 (115) Pulse Ox 97 O2 Delivery Room Air Blood Pressure Mean: 115 Departure Impression Primary Impression: Flank pain Additional Impressions: Urinary tract infection Qualified Codes: N30.00 - Acute cystitis without hematuria possible kidney stone Disposition: HOME, SELF-CARE Condition: Stable Departure-Patient Inst. Decision time for Depature: 13:11 Referrals: ÁNGEL CASPER MD (PCP/Family) Primary Care Physician Patient Instructions: Flank Pain (DC), Urinary Tract Infection, Adult (DC) Add. Discharge Instructions: 1. Drink plenty of fluids 2. Pain medication and antibiotics as directed. Follow-up with your doctor next week. All discharge instructions reviewed with patient and/or family. Voiced understanding. Scripts Tamsulosin HCl (Flomax) 0.4 Mg Cap 0.4 MG PO DAILY, #10 CAP Prov: LOGAN SNELL APRN 07/11/18 Hydrocodone Bit/Acetaminophen (Hydrocodone/Acetaminophen 5/325mg Tablet) 1 Tab Tab 1 EACH PO Q4-6HR PRN for PAIN-MODERATE MDD 10 for 3 Days, #14 TAB Prov: LOGAN SNELL APRN 07/11/18 Levofloxacin (Levofloxacin) 500 Mg Tablet 500 MG PO DAILY, #7 TAB 0 Refills Prov: LOGAN SNELL APRN 07/11/18 LOGAN SNELL APRN July 11, 2018 12:34
[2018-07-11 12:38] LABS: BILIRUBIN,URINE NEGATIVE (NEGATIVE); CLARITY,URINE SLIGHTLY CLOUDY; COLOR,URINE YELLOW; GLUCOSE, URINE (UA) NEGATIVE (NEGATIVE); KETONES,URINE NEGATIVE (NEGATIVE); LEUKOCYTE ESTERASE ,URINE 1+ (NEGATIVE); NITRITE,URINE POSITIVE (NEGATIVE); PH,URINE 7 (5-9); PROTEIN,URINE NEGATIVE (NEGATIVE); UROBILINOGEN,URINE NORMAL (NORMAL)
[2018-07-11 13:06] LABS: BACTERIA,URINE LARGE /HPF
[2018-07-11] MEDS ORDERED: LEVO500T80 PO (13:12)
[2018-07-11] MEDS ORDERED: ACHD5005 PO (13:12)
[2018-07-11] MEDS ORDERED: TAMS0.4C98 PO (13:12)
[2018-07-11] MEDS ORDERED: LEVOFLOXACIN 500 MG TAB (LEVAQUIN) PO ONE (13:15)
[2018-07-11 13:23] VITALS: BP 146/99
== END 2018-07-11 13:23 | disposition home or self-care (01) ==
LOC: EDUNIT# 11:50 → ER 11:52
DX: N39.0 Urinary tract infection, site not specified (principal); G47.30 Sleep apnea, unspecified; J44.9 Chronic obstructive pulmonary disease, unspecified; I10 Essential (primary) hypertension; E78.00 Pure hypercholesterolemia, unspecified; K21.9 Gastro-esophageal reflux disease without esophagitis; E66.01 Morbid (severe) obesity due to excess calories; E11.9 Type 2 diabetes mellitus without complications; F41.9 Anxiety disorder, unspecified; F31.9 Bipolar disorder, unspecified; Z87.19 Personal history of other diseases of the digestive system; Z79.82 Long term (current) use of aspirin; Z68.42 Body mass index [BMI] 45.0-49.9, adult; Z87.891 Personal history of nicotine dependence; Z90.49 Acquired absence of other specified parts of digestive tract; Z98.890 Other specified postprocedural states; Z87.442 Personal history of urinary calculi
CPT/HCPCS: 81000; 87077; 87088; 96372; 99284

== ENCOUNTER 2018-08-21 18:33 | Emergency (ER) | payer MEDICAID ==
[~2018-08-21] VITALS: Ht 177.8 cm; Wt 151.0 kg
[~2018-08-21 18:33] MED LIST changes: +LEVO500T80 PO; +TAMS0.4C98 PO
[2018-08-21] MEDS ORDERED: NS IV 1000 ML 1,000 ML IV SCH (18:51)
[2018-08-21 18:58] LABS: BILIRUBIN,URINE NEGATIVE (NEGATIVE); CLARITY,URINE CLEAR; COLOR,URINE YELLOW; GLUCOSE, URINE (UA) NEGATIVE (NEGATIVE); KETONES,URINE NEGATIVE (NEGATIVE); LEUKOCYTE ESTERASE ,URINE 1+ (NEGATIVE); NITRITE,URINE NEGATIVE (NEGATIVE); PH,URINE 6 (5-9); PROTEIN,URINE NEGATIVE (NEGATIVE); UROBILINOGEN,URINE NORMAL (NORMAL)
--- NOTE | 2018-08-21 18:58 | ED Back Pain ---
General Chief Complaint: Abdominal/GI Problems Stated Complaint: L FLANK PAIN Nursing Triage Note: SEVERE LEFT FLANK PAIN STARTING TODAY. ON AUGMENTIN SINCE FRI FOR A UTI. Nursing Sepsis Screen: Possible Sepsis Risk Source of Information: Patient, Spouse Exam Limitations: No Limitations History of Present Illness Date Seen by Provider: Aug 21, 2018 Time Seen by Provider: 18:46 Initial Comments The patient presents to ER by private conveyance with a bout 4 days of left flank back pain pressure and dysuria. No hematuria. He does of a history of kidney stones as well as frequent UTIs. He saw Dr. Casper, primary care Friday, 2 days ago and was initiated on Augmentin after urinalysis demonstrated a UTI. He has not had a scan looking for kidney stones recently. He says the pain is not improving in 2 days and he does not have anything besides Tylenol for the pain. He has not used AZO. He cannot use NSAIDs because he has a history of chronic kidney dysfunction. He denies fevers nausea chills. He feels worse today than he did Friday. He was diagnosed with a UTI in July here in the ER but grew out staph epidermidis. Allergies and Home Medications Allergies Coded Allergies: No Known Drug Allergies (Unverified , 12/21/17) Home Medications Aripiprazole 20 Mg Tablet, 20 MG PO DAILY, (Reported) Aspirin 81 Mg Tablet.dr, 81 MG PO DAILY, (Reported) Atorvastatin Calcium 40 Mg Tablet, 40 MG PO HS Prescribed by: MIGUEL SARABIA on 07/04/17 1438 Bupropion HCl 100 Mg Tablet, 200 MG PO DAILY, (Reported) Bupropion HCl 100 Mg Tablet, 200 MG PO NOON, (Reported) Cephalexin 500 Mg Capsule, 500 MG PO QID, (Reported) Dicyclomine HCl 10 Mg Capsule, 10 MG PO QID, (Reported) Famotidine 20 Mg Tablet, 20 MG PO BID, (Reported) Fenofibrate,Micronized 145 Mg Tablet, 145 MG PO DAILY, (Reported) Gabapentin 300 Mg Capsule, 300 MG PO BID, (Reported) 300mg in am, 300mg at noon Gabapentin 600 Mg Tablet, 600 MG PO HS, (Reported) Hydrocodone Bit/Acetaminophen 1 Tab Tab, 1 EACH PO Q4-6HR PRN for PAIN-MODERATE Prescribed by: LOGAN SNELL on 07/11/18 1312 Hydrocodone Bit/Acetaminophen 1 Tab Tab, 1 EACH PO Q4-6HR PRN for PAIN-MODERATE Prescribed by: SALTY MENDEZ on 08/21/18 193 Hyoscyamine Sulfate 0.125 Mg Tablet, 0.125 MG PO QID PRN for SPASMS, (Reported) Joie & Horacio Collinslactis 1 Each Capsule, 1 EACH PO DAILY, (Reported) Levofloxacin 500 Mg Tablet, 500 MG PO DAILY Prescribed by: LOGAN SNELL on 07/11/18 131 Mesalamine 1.2 Gm Tablet.dr, 4.8 GM PO DAILY, (Reported) Metoprolol Tartrate 25 Mg Tablet, 25 MG PO BID, (Reported) Multivitamin 1 Each Tablet, 1 EACH PO DAILY, (Reported) Nifedipine 30 Mg Tablet.er, 30 MG PO DAILY, (Reported) [place]-3 Acid Ethyl Esters 1 Gm Capsule, 2 G PO BID WITH MEALS, (Reported) Phentermine HCl 37.5 Mg Capsule, 37.5 MG PO DAILY, (Reported) Potassium Chloride 20 Meq Tablet.er, 20 MEQ PO BID, (Reported) Ropinirole HCl 5 Mg Tablet, 5 MG PO TID, (Reported) Solifenacin Succinate 5 Mg Tablet, 5 MG PO DAILY, (Reported) DAILY AT 0900 Sucralfate 1 Gm Tablet, 1 GM PO BID, (Reported) TWICE DAILY AT 1200 AND 2100 Tamsulosin HCl 0.4 Mg Cap, 0.4 MG PO DAILY Prescribed by: LOGAN SNELL on 07/11/18 131 Topiramate 200 Mg Tablet, 200 MG PO BID, (Reported) Tramadol HCl 50 Mg Tablet, 50 MG PO QID Prescribed by: RUDY MEREDITH on 08/25/17 0131 Patient Home Medication List Home Medication List Reviewed: Yes Review of Systems Constitutional: No chills, No diaphoresis EENTM: No ear discharge, No ear pain Respiratory: No cough, No phlegm Cardiovascular: No chest pain, No palpitations Gastrointestinal: No abdominal pain, No constipation, No diarrhea Genitourinary: No discharge; dysuria Past Rgyfhrq-Pucyui-Xhlcco Hx Patient Social History Alcohol Use: Occasionally Uses Alcohol Beverage of Choice: Beer Recreational Drug Use: Yes Drug of Choice: POT Smoking Status: Current Everyday Smoker Type Used: Cigarettes Former Smoker, Quit: Jun 04, 2017 Recent Foreign Travel: No Contact w/Someone Who Travel: No Recent Infectious Disease Expo: No Recent Hopitalizations: No Immunizations Up To Date Tetanus Booster (TDap): Unknown PED Vaccines UTD: No Date of Pneumonia Vaccine: May 22, 2016 Date of Influenza Vaccine: Dec 01, 2017 Seasonal Allergies Seasonal Allergies: No Past Medical History Surgeries: Yes (LAP EVELIO, BACK SURGERY, FINGER; LITHOTRIPSY ) Cardiac, Gallbladder, Orthopedic, Renal Respiratory: Yes (C-PAP MACHINE) Sleep Apnea, COPD Currently Using CPAP: Yes Currently Using BIPAP: No Cardiac: Yes High Cholesterol, Hypertension Neurological: No Reproductive Disorders: No Sexually Transmitted Disease: No HIV/AIDS: No Genitourinary: Yes Kidney Stones, Renal Failure Gastrointestinal: Yes (S/P EVELIO; FATTY LIVER ON CT. ) Colitis, Gastroesophageal Reflux, Gall Bladder Disease Musculoskeletal: Yes Arthritis, Chronic Back Pain Endocrine: Yes (MORBID OBESITY) Diabetes, Non-Insulin dep HEENT: Yes (POOR DENTITION) Cancer: No Psychosocial: Yes (BIPOLAR, POLYSUBSTANCE ABUSE) Anxiety, Bipolar, Depression Integumentary: No Blood Disorders: No Adverse Reaction/Blood Tranf: No Family Medical History Completed stroke DVT 19 MOTHER, , Onset:Unknown Diabetes mellitus 19 MOTHER, , Onset:Unknown G8 BROTHER, Onset:Unknown FH: gastric ulcer 19 FATHER, Onset:Unknown No Pertinent Family Hx Physical Exam Vital Signs Vital Signs - First Documented 08/21/18 18:38 Temp 98.0 Pulse 107 Resp 16 B/P (MAP) 143/105 (118) Pulse Ox 96 O2 Delivery Room Air Capillary Refill : Less Than 3 Seconds Height, Weight, BMI Height: 5'10.00" Weight: 333lbs. 3.0oz. 151.533432nk; 46.2 BMI Method:Stated General Appearance: Mild Distress, Obese HEENT: Pharynx Normal, Moist Mucous Membranes Neck: Full Range of Motion, Normal Inspection Cardiovascular: Regular Rate, Rhythm, No Edema Respiratory: No Accessory Muscle Use, No Respiratory Distress Back: CVA Tenderness (L); No CVA Tenderness (R) Extremity: Normal Inspection, Normal Range of Motion Neurologic/Psychiatric: Alert, Oriented x3 Skin: Normal Color, Warm/Dry Progress/Results/Core Measures Results/Orders Lab Results Laboratory Tests Test 08/21/18 18:44 08/21/18 18:55 Range/Units Urine Color YELLOW Urine Clarity CLEAR Urine pH 6 5-9 Urine Specific [place] 1.015 L 1.016-1.022 Urine Protein NEGATIVE NEGATIVE Urine Glucose (UA) NEGATIVE NEGATIVE Urine Ketones NEGATIVE NEGATIVE Urine Nitrite NEGATIVE NEGATIVE Urine Bilirubin NEGATIVE NEGATIVE Urine Urobilinogen NORMAL NORMAL MG/DL Urine Leukocyte Esterase 1+ H NEGATIVE Urine RBC (Auto) NEGATIVE NEGATIVE Urine RBC RARE /HPF Urine WBC 0-2 /HPF Urine Squamous Epithelial Cells RARE /HPF Urine Crystals NONE /LPF Urine Bacteria NEGATIVE /HPF Urine Casts NONE /LPF Urine Mucus NEGATIVE /LPF Urine Culture Indicated NO White Blood Count 10.0 4.3-11.0 10^3/uL Red Blood Count 5.37 4.35-5.85 10^6/uL Hemoglobin 16.6 13.3-17.7 G/DL Hematocrit 49 40-54 % Mean Corpuscular Volume 91 80-99 FL Mean Corpuscular Hemoglobin 31 25-34 PG Mean Corpuscular Hemoglobin Concent 34 32-36 G/DL Red Cell Distribution Width 14.1 10.0-14.5 % Platelet Count 206 130-400 10^3/uL Mean Platelet Volume 10.6 H 7.4-10.4 FL Neutrophils (%) (Auto) 68 42-75 % Lymphocytes (%) (Auto) 22 12-44 % Monocytes (%) (Auto) 7 0-12 % Eosinophils (%) (Auto) 2 0-10 % Basophils (%) (Auto) 0 0-10 % Neutrophils # (Auto) 6.9 1.8-7.8 X 10^3 Lymphocytes # (Auto) 2.2 1.0-4.0 X 10^3 Monocytes # (Auto) 0.7 0.0-1.0 X 10^3 Eosinophils # (Auto) 0.2 0.0-0.3 10^3/uL Basophils # (Auto) 0.0 0.0-0.1 10^3/uL Sodium Level 141 135-145 MMOL/L Potassium Level 3.5 L 3.6-5.0 MMOL/L Chloride Level 108 H 98-107 MMOL/L Carbon Dioxide Level 21 21-32 MMOL/L Anion Gap 12 5-14 MMOL/L Blood Urea Nitrogen 20 H 7-18 MG/DL Creatinine 1.72 H 0.60-1.30 MG/DL Estimat Glomerular Filtration Rate 43 BUN/Creatinine Ratio 12 Glucose Level 137 H 70-105 MG/DL Calcium Level 9.9 8.5-10.1 MG/DL Corrected Calcium 9.5 8.5-10.1 MG/DL Total Bilirubin 0.3 0.1-1.0 MG/DL Aspartate Amino Transf (AST/SGOT) 27 5-34 U/L Alanine Aminotransferase (ALT/SGPT) 39 0-55 U/L Alkaline Phosphatase 63 40-136 U/L Total Protein 7.5 6.4-8.2 GM/DL Albumin 4.5 3.2-4.5 GM/DL My Orders Orders - SALTY MENDEZ Ct Abd/Pelvis Wo(Kidney Stone) (08/21/18 18:51) Cbc With Automated Diff (08/21/18 18:51) Comprehensive Metabolic Panel (08/21/18 18:51) Ua Culture If Indicated (08/21/18 18:51) Ed Iv/Invasive Line Start (08/21/18 18:51) Ns Iv 1000 Ml (Sodium Chloride 0.9%) (08/21/18 18:51) Hydrocodone/Apap 5/325 Tablet (Lortab 5 (08/21/18 19:00) Medications Given in ED Current Medications Medications Dose Ordered Sig/Saba Route Start Time Stop Time Status Last Admin Dose Admin Acetaminophen/ Hydrocodone Bitart 1 tab ONCE ONCE PO 08/21/18 19:00 08/21/18 19:01 DC 08/21/18 19:03 1 TAB Vital Signs/I&O 08/21/18 18:38 Temp 98.0 Pulse 107 Resp 16 B/P (MAP) 143/105 (118) Pulse Ox 96 O2 Delivery Room Air Blood Pressure Mean: 118 Progress Progress Note #1: Time: 18:56 Progress Note Patient's tachycardic and has a history of chronic kidney disease. Plan to give him a liter fluids check some basic labs but at this point he does not meet sepsis criteria. His previous urine culture grew out probably skin marva. CT without contrast looking for kidney stones. Anaid for pain. Progress Note #2: Time: 19:28 Progress Note Urine looks fine today however he been on antibiotics for 3 days. Could be some back pain exacerbation. Since he can't take NSAIDs and he has a possible active infection: steroids are not a good option. We can send him home with a couple of Anaid and follow-up with Dr. Casper next week. Diagnostic Imaging Diagonstic Imaging: CT (non-contrast kidney stone study) Plain Films/CT/US/NM/MRI: abdomen, pelvis Comments No acute intra-abdominal process. No kidney stones in the ureters or bladder. No hydroureter or hydronephrosis. There are renal pelvic calculi nonobstructing. NAME: [facility] REC#: [id number] PT STATUS: REG ER : 1970 PHYSICIAN: SALTY MENDEZ MD ADMIT DATE: 08/21/18/ER Draft Date of Exam:08/21/18 CT ABD/PELVIS WO(KIDNEY STONE) EXAMINATION: CT abdomen and pelvis without contrast, 08/21/2018. TECHNIQUE: Multiple contiguous axial images were obtained through the abdomen and pelvis without the use of intravenous contrast. Auto Exposure Controls were utilized during the CT exam to meet ALARA standards for radiation dose reduction. INDICATION: Left flank pain, history of stones. COMPARISONS: 07/12/2017. FINDINGS: Bilateral stones noted within the kidneys, nonobstructive in nature. The largest are on the left with greatest measurement of 1.1 cm. Although there is no hydronephrosis on the left, there is mild fat stranding adjacent to the left kidney which is nonspecific. It could be due to focal pyelonephritis or a recently passed stone. No hydronephrosis or ureteral stones appreciated. There are no ureteral stones in the right ureter. No hydronephrosis on the right. Urinary bladder wall demonstrates minimal thickening which could be due to underdistention; cystitis can cause a similar appearance; correlate with urinalysis. There is a fat-containing inguinal hernia on the right. There is no free fluid in the pelvis. No free air in the abdomen or pelvis. There is diverticular disease seen throughout the colon but no evidence for diverticulitis. The appendix is unremarkable other than appendicoliths. The liver and spleen as well as the remaining abdominal viscera are limited in evaluation due to the lack of contrast; however, no acute process is seen. The adrenal glands and pancreas are unremarkable. There is evidence of previous cholecystectomy. Within the visualized chest, a small amount of pericardial fluid is noted. There is likely scarring or atelectasis in the visualized lingula. There is no acute osseous abnormality. Degenerative findings noted throughout the spine. IMPRESSION: 1. Minimal fat stranding about the left kidney, which could be due to a recently passed stone or due to pyelonephritis; correlate with symptoms. Minimal wall thickening of the urinary bladder is noted, which could be due to underdistention versus cystitis. 2. Bilateral nonobstructive renal stones with no hydronephrosis or distal obstructive stones appreciated. 3. Diverticulosis without evidence for diverticulitis. Other incidental findings as discussed above. Dictated on workstation # [id number] Dict: 08/21/181916 Trans: 08/21/181929 [id number] Interpreted by: ZAINAB CAMPOS MD Electronically signed by: Reviewed: Reviewed by Me Departure Impression Primary Impression: Urinary tract infection Qualified Codes: N30.00 - Acute cystitis without hematuria Additional Impression: Acute left flank pain Disposition: HOME, SELF-CARE Condition: Stable Departure-Patient Inst. Decision time for Depature: 19:35 Referrals: ÁNGEL CASPER MD (PCP/Family) Primary Care Physician Patient Instructions: Back Exercises Add. Discharge Instructions: Continue to use the Augmentin as prescribed. Drink lots of fluids. Avoid alcohol or caffeine. Use the Tylenol 1000 mg every 8 hours as needed for pain. For breakthrough pain you may use the hydrocodone one tablet every 6 hours as needed. Plan to follow up next week if your pain is not improved by Friday with your primary care doctor. Wear a back brace and use the exercises as outlined in the handout and use heating pads. Topical creams such as icy hot, Biofreeze, Salonpas can be useful. All discharge instructions reviewed with patient and/or family. Voiced understanding. Scripts Hydrocodone Bit/Acetaminophen (Hydrocodone/Acetaminophen 5/325mg Tablet) 1 Tab Tab 1 EACH PO Q4-6HR PRN for PAIN-MODERATE MDD 10 for 3 Days, #14 TAB 0 Refills Prov: SALTY MENDEZ 08/21/18 SALTY MENDEZ Aug 21, 2018 18:58
[2018-08-21] MEDS ORDERED: HYDROcodone/APAP 5 MG/325 MG (LORTAB) TAB PO ONE (19:00)
--- NOTE | 2018-08-21 19:00 | NUR ---
Report given to EDWIN Murillo
[2018-08-21 19:04] LABS: BASOPHILS % (AUTO) 0 % (0-10); EOSINOPHILS # (AUTO) 0.2 10^3/uL (0.0-0.3); EOSINOPHILS % (AUTO) 2 % (0-10); HEMATOCRIT 49 % (40-54); HEMOGLOBIN 16.6 G/DL (13.3-17.7); LYMPHOCYTES # (AUTO) 2.2 X 10^3 (1.0-4.0); LYMPHOCYTES % (AUTO) 22 % (12-44); MEAN CORPUSCULAR HEMOGLOBIN 31 PG (25-34); MEAN CORPUSCULAR HGB CONC 34 G/DL (32-36); MEAN CORPUSCULAR VOLUME 91 FL (80-99); MEAN PLATELET VOLUME 10.6 FL (7.4-10.4); MONOCYTES # (AUTO) 0.7 X 10^3 (0.0-1.0); MONOCYTES % (AUTO) 7 % (0-12); NEUTROPHILS # (AUTO) 6.9 X 10^3 (1.8-7.8); NEUTROPHILS % (AUTO) 68 % (42-75); PLATELET COUNT 206 10^3/uL (130-400); RED CELL DISTRIBUTION WIDTH 14.1 % (10.0-14.5)
[2018-08-21 19:06] LABS: BACTERIA,URINE NEGATIVE /HPF; RBC,URINE RARE /HPF; SQUAMOUS EPITHELIAL CELL,UR RARE /HPF; WBC,URINE 0-2 /HPF
[2018-08-21 19:21] LABS: ALBUMIN 4.5 GM/DL (3.2-4.5); BILIRUBIN,TOTAL 0.3 MG/DL (0.1-1.0); CALCIUM 9.9 MG/DL (8.5-10.1); CREATININE SERUM 1.72 MG/DL (0.60-1.30); POTASSIUM 3.5 MMOL/L (3.6-5.0); TOTAL PROTEIN 7.5 GM/DL (6.4-8.2)
--- NOTE | 2018-08-21 19:31 | Diagnostic Imaging Report ---
EXAMINATION: CT abdomen and pelvis without contrast, 08/21/2018. TECHNIQUE: Multiple contiguous axial images were obtained through the abdomen and pelvis without the use of intravenous contrast. Auto Exposure Controls were utilized during the CT exam to meet ALARA standards for radiation dose reduction. INDICATION: Left flank pain, history of stones. COMPARISONS: 07/12/2017. FINDINGS: Bilateral stones noted within the kidneys, nonobstructive in nature. The largest are on the left with greatest measurement of 1.1 cm. Although there is no hydronephrosis on the left, there is mild fat stranding adjacent to the left kidney which is nonspecific. It could be due to focal pyelonephritis or a recently passed stone. No hydronephrosis or ureteral stones appreciated. There are no ureteral stones in the right ureter. No hydronephrosis on the right. Urinary bladder wall demonstrates minimal thickening which could be due to underdistention; cystitis can cause a similar appearance; correlate with urinalysis. There is a fat-containing inguinal hernia on the right. There is no free fluid in the pelvis. No free air in the abdomen or pelvis. There is diverticular disease seen throughout the colon but no evidence for diverticulitis. The appendix is unremarkable other than appendicoliths. The liver and spleen as well as the remaining abdominal viscera are limited in evaluation due to the lack of contrast; however, no acute process is seen. The adrenal glands and pancreas are unremarkable. There is evidence of previous cholecystectomy. Within the visualized chest, a small amount of pericardial fluid is noted. There is likely scarring or atelectasis in the visualized lingula. There is no acute osseous abnormality. Degenerative findings noted throughout the spine. IMPRESSION: 1. Minimal fat stranding about the left kidney, which could be due to a recently passed stone or due to pyelonephritis; correlate with symptoms. Minimal wall thickening of the urinary bladder is noted, which could be due to underdistention versus cystitis. 2. Bilateral nonobstructive renal stones with no hydronephrosis or distal obstructive stones appreciated. 3. Diverticulosis without evidence for diverticulitis. Other incidental findings as discussed above. Dictated by: Dictated on workstation # [id number]
[2018-08-21] MEDS ORDERED: ACHD5005 PO (19:36)
[2018-08-21 19:43] VITALS: BP 119/63
== END 2018-08-21 19:45 | disposition home or self-care (01) ==
LOC: EDUNIT# 18:33 → ER 18:35
DX: N39.0 Urinary tract infection, site not specified (principal); E11.22 Type 2 diabetes mellitus with diabetic chronic kidney disease; I12.9 Hypertensive chronic kidney disease with stage 1 through stage 4 chronic kidney disease, or unspecified chronic kidney disease; N18.9 Chronic kidney disease, unspecified; J44.9 Chronic obstructive pulmonary disease, unspecified; G47.30 Sleep apnea, unspecified; E78.00 Pure hypercholesterolemia, unspecified; K21.9 Gastro-esophageal reflux disease without esophagitis; E66.01 Morbid (severe) obesity due to excess calories; F41.9 Anxiety disorder, unspecified; F31.9 Bipolar disorder, unspecified; Z87.19 Personal history of other diseases of the digestive system; Z87.442 Personal history of urinary calculi; Z87.440 Personal history of urinary (tract) infections; Z79.82 Long term (current) use of aspirin; Z87.891 Personal history of nicotine dependence; Z98.890 Other specified postprocedural states; Z90.49 Acquired absence of other specified parts of digestive tract
CPT/HCPCS: 36415; 74176; 80053; 81000; 85025

== ENCOUNTER 2018-09-19 10:03 | Emergency (ER) | payer MEDICAID ==
[~2018-09-19] VITALS: Ht 177.8 cm; Wt 149.7 kg
[2018-09-19] MEDS ORDERED: ASPIRIN 81 MG CHEW (CHILDREN'S ASA) ONE (10:15)
[2018-09-19] MEDS ORDERED: KETOROLAC 30 MG/ML VIAL IVP STA (10:35)
[2018-09-19] MEDS ORDERED: RT-ALBUTEROL/IPRATROPIUM 3 ML (DUONEB) VIAL INH ONE (10:45)
[2018-09-19 10:48] LABS: BASOPHILS # (AUTO) 0.1 10^3/uL (0.0-0.1); BASOPHILS % (AUTO) 1 % (0-10); EOSINOPHILS # (AUTO) 0.3 10^3/uL (0.0-0.3); EOSINOPHILS % (AUTO) 3 % (0-10); HEMATOCRIT 50 % (40-54); HEMOGLOBIN 16.9 G/DL (13.3-17.7); LYMPHOCYTES # (AUTO) 2.3 X 10^3 (1.0-4.0); LYMPHOCYTES % (AUTO) 25 % (12-44); MEAN CORPUSCULAR HEMOGLOBIN 31 PG (25-34); MEAN CORPUSCULAR HGB CONC 34 G/DL (32-36); MEAN CORPUSCULAR VOLUME 91 FL (80-99); MEAN PLATELET VOLUME 11.2 FL (7.4-10.4); MONOCYTES # (AUTO) 0.9 X 10^3 (0.0-1.0); MONOCYTES % (AUTO) 10 % (0-12); NEUTROPHILS # (AUTO) 5.7 X 10^3 (1.8-7.8); NEUTROPHILS % (AUTO) 61 % (42-75); PLATELET COUNT 188 10^3/uL (130-400); RED CELL DISTRIBUTION WIDTH 14.5 % (10.0-14.5); WHITE BLOOD COUNT 9.3 10^3/uL (4.3-11.0)
[2018-09-19 11:03] LABS: ALANINE AMINOTRANSFERASE 45 U/L (0-55); ALBUMIN 4.3 GM/DL (3.2-4.5); ALKALINE PHOSPHATASE 67 U/L (40-136); BILIRUBIN,TOTAL 0.3 MG/DL (0.1-1.0); BUN/CREATININE RATIO 11; CARBON DIOXIDE 20 MMOL/L (21-32); CHLORIDE 109 MMOL/L (98-107); CREATININE SERUM 1.53 MG/DL (0.60-1.30); GFR ESTIMATED 49; GLUCOSE 98 MG/DL (70-105); MAGNESIUM 2.5 MG/DL (1.8-2.4); POTASSIUM 4.3 MMOL/L (3.6-5.0); SODIUM 140 MMOL/L (135-145); TOTAL PROTEIN 7.4 GM/DL (6.4-8.2)
--- NOTE | 2018-09-19 11:04 | ED Chest Pain ---
General Chief Complaint: Respiratory Problems Stated Complaint: SOA Nursing Triage Note: PT AMB TO RM 4 WITH COMPLAINT OF SOA AND EPIGASTRIC AND RUQ ABD PAIN. 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 Nursing Sepsis Screen: No Definite Risk Source: patient Exam Limitations: no limitations History of Present Illness Date Seen by Provider: Sep 19, 2018 Time Seen by Provider: 10:31 Initial Comments Here with complaint of shortness of air and upper abdominal/low chest wall pain on the left side. This is been going on since about 6:30 this morning when he got up. He did not try an inhaler. Does have history of COPD. Has had previous cardiac workup which was negative for significant blockage. Denies nausea, vomiting, weakness, or sweating but does report some diarrhea. Timing/Duration: 4-6 hours Severity/Quality: mild, moderate, aching Location: central Radiation: epigastric Activities at Onset: none Prior CP/Workup: cardiac cath ASA po BUCKET HOOKER: No NTG SL BUCKET HOOKER: No Associated Symptoms: abdominal pain; No diaphoresis, No fever/chills, No nausea/vomiting; shortness of breath; No weakness Allergies and Home Medications Allergies Coded Allergies: No Known Drug Allergies (Unverified , 12/21/17) Home Medications Aripiprazole 20 Mg Tablet, 20 MG PO DAILY, (Reported) Aspirin 81 Mg Tablet.dr, 81 MG PO DAILY, (Reported) Atorvastatin Calcium 40 Mg Tablet, 40 MG PO HS Prescribed by: MIGUEL SARABIA on 07/04/17 1438 Bupropion HCl 100 Mg Tablet, 200 MG PO DAILY, (Reported) Bupropion HCl 100 Mg Tablet, 200 MG PO NOON, (Reported) Cephalexin 500 Mg Capsule, 500 MG PO QID, (Reported) Dicyclomine HCl 10 Mg Capsule, 10 MG PO QID, (Reported) Famotidine 20 Mg Tablet, 20 MG PO BID, (Reported) Fenofibrate,Micronized 145 Mg Tablet, 145 MG PO DAILY, (Reported) Gabapentin 300 Mg Capsule, 300 MG PO BID, (Reported) 300mg in am, 300mg at noon Gabapentin 600 Mg Tablet, 600 MG PO HS, (Reported) Hydrocodone Bit/Acetaminophen 1 Tab Tab, 1 EACH PO Q4-6HR PRN for PAIN-MODERATE Prescribed by: LOGAN SNELL on 07/11/18 1312 Hydrocodone Bit/Acetaminophen 1 Tab Tab, 1 EACH PO Q4-6HR PRN for PAIN-MODERATE Prescribed by: SALTY MENDEZ on 08/21/18 193 Hyoscyamine Sulfate 0.125 Mg Tablet, 0.125 MG PO QID PRN for SPASMS, (Reported) Diogoacideverton & Horacio Collinslactis 1 Each Capsule, 1 EACH PO DAILY, (Reported) Levofloxacin 500 Mg Tablet, 500 MG PO DAILY Prescribed by: LOGAN SNELL on 07/11/18 131 Mesalamine 1.2 Gm Tablet.dr, 4.8 GM PO DAILY, (Reported) Metoprolol Tartrate 25 Mg Tablet, 25 MG PO BID, (Reported) Multivitamin 1 Each Tablet, 1 EACH PO DAILY, (Reported) Nifedipine 30 Mg Tablet.er, 30 MG PO DAILY, (Reported) [place]-3 Acid Ethyl Esters 1 Gm Capsule, 2 G PO BID WITH MEALS, (Reported) Phentermine HCl 37.5 Mg Capsule, 37.5 MG PO DAILY, (Reported) Potassium Chloride 20 Meq Tablet.er, 20 MEQ PO BID, (Reported) Ropinirole HCl 5 Mg Tablet, 5 MG PO TID, (Reported) Solifenacin Succinate 5 Mg Tablet, 5 MG PO DAILY, (Reported) DAILY AT 0900 Sucralfate 1 Gm Tablet, 1 GM PO BID, (Reported) TWICE DAILY AT 1200 AND 2100 Tamsulosin HCl 0.4 Mg Cap, 0.4 MG PO DAILY Prescribed by: LOGAN SNELL on 07/11/18 131 Topiramate 200 Mg Tablet, 200 MG PO BID, (Reported) Tramadol HCl 50 Mg Tablet, 50 MG PO QID Prescribed by: RUDY MEREDITH on 08/25/17 0131 Patient Home Medication List Home Medication List Reviewed: Yes Review of Systems Review of Systems Constitutional: see HPI; No chills, No fever EENTM: No Symptoms Reported Respiratory: See HPI Cardiovascular: See HPI Gastrointestinal: See HPI Genitourinary: No Symptoms Reported Musculoskeletal: no symptoms reported Skin: no symptoms reported All Other Systems Reviewed Negative Unless Noted: Yes Past Qjbsxif-Zivody-Aibvfb Hx Past Med/Social Hx: Reviewed Nursing Past Med/Soc Hx Patient Social History Alcohol Use: Occasionally Uses Number of Drinks Today: AA Alcohol Beverage of Choice: Beer Recreational Drug Use: No Drug of Choice: POT Smoking Status: Current Everyday Smoker Type Used: Cigarettes Former Smoker, Quit: Jun 04, 2017 Recent Foreign Travel: No Contact w/Someone Who Travel: No Recent Infectious Disease Expo: No Recent Hopitalizations: No Immunizations Up To Date Tetanus Booster (TDap): Unknown PED Vaccines UTD: No Date of Pneumonia Vaccine: May 22, 2016 Date of Influenza Vaccine: Dec 01, 2017 Seasonal Allergies Seasonal Allergies: No Past Medical History Surgeries: Yes (LAP EVELIO, BACK SURGERY, FINGER; LITHOTRIPSY ) Cardiac, Gallbladder, Orthopedic, Renal Respiratory: Yes (C-PAP MACHINE) Sleep Apnea, COPD Currently Using CPAP: Yes Currently Using BIPAP: No Cardiac: Yes High Cholesterol, Hypertension Neurological: No Reproductive Disorders: No Sexually Transmitted Disease: No HIV/AIDS: No Genitourinary: Yes Kidney Stones, Renal Failure Gastrointestinal: Yes (S/P EVELIO; FATTY LIVER ON CT. ) Colitis, Gastroesophageal Reflux, Gall Bladder Disease Musculoskeletal: Yes Arthritis, Chronic Back Pain Endocrine: Yes (MORBID OBESITY) Diabetes, Non-Insulin dep HEENT: Yes (POOR DENTITION) Cancer: No Psychosocial: Yes (BIPOLAR, POLYSUBSTANCE ABUSE) Anxiety, Bipolar, Depression Integumentary: No Blood Disorders: No Adverse Reaction/Blood Tranf: No Family Medical History Reviewed Nursing Family Hx Completed stroke DVT 19 MOTHER, , Onset:Unknown Diabetes mellitus 19 MOTHER, , Onset:Unknown G8 BROTHER, Onset:Unknown FH: gastric ulcer 19 FATHER, Onset:Unknown No Pertinent Family Hx Physical Exam Vital Signs Vital Signs - First Documented 09/19/18 10:15 Temp 98.2 Pulse 89 Resp 12 B/P (MAP) 125/90 (102) Pulse Ox 96 O2 Delivery Room Air Capillary Refill : Less Than 3 Seconds Height, Weight, BMI Height: 5'10.00" Weight: 330lbs. 3.0oz. 149.012350eq; 46.2 BMI Method:Stated General Appearance: No Apparent Distress, WD/WN HEENT: PERRL/EOMI, Pharynx Normal Neck: Non Tender, Supple Respiratory: No Accessory Muscle Use, No Respiratory Distress, Decreased Breath Sounds Cardiovascular: Regular Rate, Rhythm, Normal Peripheral Pulses Gastrointestinal: Soft, Tenderness (mild epigastric and left upper quadrant) Extremity: Normal Range of Motion, Non Tender Neurologic/Psychiatric: Alert, Oriented x3 Skin: Normal Color, Warm/Dry Focused Exam Lactate Level 09/19/18 11:19: Lactic Acid Level 1.19 Lactic Acid Level Laboratory Tests Test 09/19/18 11:19 Lactic Acid Level 1.19 MMOL/L (0.50-2.00) Progress/Results/Core Measures Results/Orders Lab Results Laboratory Tests Test 09/19/18 10:16 09/19/18 11:19 Range/Units White Blood Count 9.3 4.3-11.0 10^3/uL Red Blood Count 5.45 4.35-5.85 10^6/uL Hemoglobin 16.9 13.3-17.7 G/DL Hematocrit 50 40-54 % Mean Corpuscular Volume 91 80-99 FL Mean Corpuscular Hemoglobin 31 25-34 PG Mean Corpuscular Hemoglobin Concent 34 32-36 G/DL Red Cell Distribution Width 14.5 10.0-14.5 % Platelet Count 188 130-400 10^3/uL Mean Platelet Volume 11.2 H 7.4-10.4 FL Neutrophils (%) (Auto) 61 42-75 % Lymphocytes (%) (Auto) 25 12-44 % Monocytes (%) (Auto) 10 0-12 % Eosinophils (%) (Auto) 3 0-10 % Basophils (%) (Auto) 1 0-10 % Neutrophils # (Auto) 5.7 1.8-7.8 X 10^3 Lymphocytes # (Auto) 2.3 1.0-4.0 X 10^3 Monocytes # (Auto) 0.9 0.0-1.0 X 10^3 Eosinophils # (Auto) 0.3 0.0-0.3 10^3/uL Basophils # (Auto) 0.1 0.0-0.1 10^3/uL Prothrombin Time 12.5 12.2-14.7 SEC INR Comment 0.9 0.8-1.4 Activated Partial Thromboplast Time 30 24-35 SEC D-Dimer 0.44 0.00-0.49 UG/ML Sodium Level 140 135-145 MMOL/L Potassium Level 4.3 3.6-5.0 MMOL/L Chloride Level 109 H 98-107 MMOL/L Carbon Dioxide Level 20 L 21-32 MMOL/L Anion Gap 11 5-14 MMOL/L Blood Urea Nitrogen 17 7-18 MG/DL Creatinine 1.53 H 0.60-1.30 MG/DL Estimat Glomerular Filtration Rate 49 BUN/Creatinine Ratio 11 Glucose Level 98 70-105 MG/DL Calcium Level 10.0 8.5-10.1 MG/DL Corrected Calcium 9.8 8.5-10.1 MG/DL Magnesium Level 2.5 H 1.8-2.4 MG/DL Total Bilirubin 0.3 0.1-1.0 MG/DL Aspartate Amino Transf (AST/SGOT) 45 H 5-34 U/L Alanine Aminotransferase (ALT/SGPT) 45 0-55 U/L Alkaline Phosphatase 67 40-136 U/L Myoglobin 84.4 10.0-92.0 NG/ML Troponin I < 0.028 <0.028 NG/ML Total Protein 7.4 6.4-8.2 GM/DL Albumin 4.3 3.2-4.5 GM/DL Lactic Acid Level 1.19 0.50-2.00 MMOL/L My Orders Orders - STAN CARREON MD Aspirin Chewable Tablet (Baby Aspirin Ch (09/19/18 10:15) Cbc With Automated Diff (09/19/18 10:35) Magnesium (09/19/18 10:35) Chest 1 View, Ap/Pa Only (09/19/18 10:35) Ekg Tracing (09/19/18 10:35) Cardiac Profile 1 (09/19/18 10:35) Comprehensive Metabolic Panel (09/19/18 10:35) Myoglobin Serum (09/19/18 10:35) Protime With Inr (09/19/18 10:35) Partial Thromboplastin Time (09/19/18 10:35) O2 (09/19/18 10:35) Monitor-Rhythm Ecg Trace Only (09/19/18 10:35) Lipid Panel (09/20/18 06:00) Ed Iv/Invasive Line Start (09/19/18 10:35) Albuterol/Ipra Inhalation Soln (Duoneb I (09/19/18 10:45) Svn Small Volume Nebulizer (09/19/18 10:35) Fibrin Degradation Products (09/19/18 10:35) Lactic Acid Analyzer (09/19/18 10:35) Ketorolac Injection (Toradol Injection) (09/19/18 10:35) Medications Given in ED Current Medications Medications Dose Ordered Sig/Saba Route Start Time Stop Time Status Last Admin Dose Admin Albuterol/ Ipratropium 3 ml ONCE ONCE INH 09/19/18 10:45 09/19/18 10:46 DC 09/19/18 11:14 3 ML Aspirin 81 mg STK-MED ONCE .ROUTE 09/19/18 10:15 09/19/18 10:21 DC 09/19/18 10:22 324 MG Vital Signs/I&O 09/19/18 09/19/18 10:15 11:14 Temp 98.2 Pulse 89 Resp 12 B/P (MAP) 125/90 (102) Pulse Ox 96 94 O2 Delivery Room Air Blood Pressure Mean: 102 Progress Progress Note : Progress Note Seen and evaluated. IV, labs, EKG, ASA 324 mg by mouth and DuoNeb ordered. We will give Toradol 30 mg IV. Monitor patient. 1205: Overall feeling better. No acute findings. We are 4 hours after onset with lab draw so no concerns on cardiac and has had negative Last year. I do believe this is more related to COPD as he now reports that he was on the heat over the last couple of days. We will give him a new prescription for his inhaler. Discharged home with return precautions. Patient verbalize understanding instructions and agreement with plan. Initial ECG Impression Date: Sep 19, 2018 Initial ECG Impression Time: 10:17 Initial ECG Rate: 87 Initial ECG Rhythm: Normal Sinus Comment Sinus rhythm with right axis deviation. First-degree AV block. No evidence of ST elevation WI. Similar to 03/13/18. Interpreted by me. Diagnostic Imaging Diagonstic Imaging: Xray Plain Films/CT/US/NM/MRI: chest Comments NAME: DREW HILL [facility] REC#: [id number] PT STATUS: REG ER : 1970 PHYSICIAN: STAN CARREON MD ADMIT DATE: 09/19/18/ER Signed Date of Exam: 09/19/18 CHEST 1 VIEW, AP/PA ONLY INDICATION: Chest pain. TECHNIQUE: Single view chest 11:36 AM. CORRELATION STUDY: 03/13/2018 FINDINGS: Heart size is enlarged. The vasculature is slightly prominent but overall appears stable. Lung parenchyma appears unchanged. Significant amount of overlying soft tissue attenuation. IMPRESSION: 1. Relatively stable portable chest demonstrates no acute abnormality. Dictated by: Dictated on workstation # [id number] Dict: 09/19/18 1146 Trans: 09/19/18 1153 Interpreted by: ALIZE ABBOTT DO Electronically signed by: ALIZE ABBOTT DO 09/19/18 1153 Departure Impression Primary Impression: Bronchitis Additional Impression: Chest pain Qualified Codes: R07.9 - Chest pain, unspecified Disposition: HOME, SELF-CARE Condition: Improved Departure-Patient Inst. Decision time for Depature: 12:11 Referrals: ÁNGEL CASPER MD (PCP/Family) Primary Care Physician Patient Instructions: Chest Pain (DC), Chronic Bronchitis (DC) Add. Discharge Instructions: All discharge instructions reviewed with patient and/or family. Voiced understanding. Continue home medications as previously prescribed. Follow-up with your doctor this week for recheck and further evaluation. Return for worse pain, fever, vomiting, weakness, breathing problems or other concerns as needed. Scripts Albuterol Sulfate (PROAIR HFA) 1 Puff Puff 2 PUFF IH Q4H PRN for WHEEZING, #1 INHALER 1 Refill 1 PUFF = 90 MCG Prov: STAN CARREON MD 09/19/18 STAN CARREON MD Sep 19, 2018 11:04
[2018-09-19 11:12] LABS: INR 0.9 (0.8-1.4); PROTHROMBIN TIME PATIENT 12.5 SEC (12.2-14.7)
--- NOTE | 2018-09-19 11:51 | Diagnostic Imaging Report ---
INDICATION: Chest pain. TECHNIQUE: Single view chest 11:36 AM. CORRELATION STUDY: 03/13/2018 FINDINGS: Heart size is enlarged. The vasculature is slightly prominent but overall appears stable. Lung parenchyma appears unchanged. Significant amount of overlying soft tissue attenuation. IMPRESSION: 1. Relatively stable portable chest demonstrates no acute abnormality. Dictated by: Dictated on workstation # [id number]
[2018-09-19] MEDS ORDERED: RT-ALBUINH IH (12:15)
[2018-09-19 12:30] VITALS: BP 117/88
== END 2018-09-19 12:30 | disposition home or self-care (01) ==
LOC: EDUNIT# 10:03 → ER 10:04
DX: J40 Bronchitis, not specified as acute or chronic (principal); J44.9 Chronic obstructive pulmonary disease, unspecified; G47.30 Sleep apnea, unspecified; I10 Essential (primary) hypertension; E78.00 Pure hypercholesterolemia, unspecified; K21.9 Gastro-esophageal reflux disease without esophagitis; E66.01 Morbid (severe) obesity due to excess calories; E11.9 Type 2 diabetes mellitus without complications; F31.9 Bipolar disorder, unspecified; F41.9 Anxiety disorder, unspecified; F17.210 Nicotine dependence, cigarettes, uncomplicated; Z87.19 Personal history of other diseases of the digestive system; Z79.82 Long term (current) use of aspirin; Z87.442 Personal history of urinary calculi; Z90.49 Acquired absence of other specified parts of digestive tract
CPT/HCPCS: 36415; 71045; 80053; 83605; 83735; 83874; 84484; 85025; 85379; 85610; 85730; 93005; 93041; 94640; 96374

== ENCOUNTER 2019-01-06 15:45 | Emergency (ER) | payer MEDICAID ==
[~2019-01-06] VITALS: Ht 177.8 cm; Wt 147.7 kg
[2019-01-06 16:25] VITALS: BP 178/85
== END 2019-01-06 17:12 | disposition left against medical advice (07) ==
LOC: EDUNIT# 15:45 → ER 15:46
DX: R05 Cough (principal); R07.9 Chest pain, unspecified; R06.02 Shortness of breath; R42 Dizziness and giddiness
CPT/HCPCS: 99282

== ENCOUNTER 2019-01-14 15:00 | Observation (INO) | payer MEDICAID ==
[~2019-01-14] VITALS: Ht 177.8 cm; Wt 150.4 kg
[~2019-01-14 15:00] MED LIST changes: -ALLO100T; +ALLO100T PO; -HYDR25TA4; +HYDR25TA4 PO
[2019-01-14 15:29] LABS: HEMOGLOBIN 16.2 G/DL (13.3-17.7); MEAN CORPUSCULAR HEMOGLOBIN 31 PG (25-34)
[2019-01-14 15:30] LABS: BASOPHILS # (AUTO) 0.1 10^3/uL (0.0-0.1); BASOPHILS % (AUTO) 1 % (0-10); EOSINOPHILS # (AUTO) 0.3 10^3/uL (0.0-0.3); EOSINOPHILS % (AUTO) 3 % (0-10); HEMATOCRIT 48 % (40-54); LYMPHOCYTES % (AUTO) 20 % (12-44); MEAN CORPUSCULAR HGB CONC 34 G/DL (32-36); MEAN CORPUSCULAR VOLUME 93 FL (80-99); MEAN PLATELET VOLUME 10.4 FL (7.4-10.4); MONOCYTES # (AUTO) 0.8 X 10^3 (0.0-1.0); MONOCYTES % (AUTO) 8 % (0-12); NEUTROPHILS # (AUTO) 6.6 X 10^3 (1.8-7.8); NEUTROPHILS % (AUTO) 66 % (42-75); PLATELET COUNT 187 10^3/uL (130-400); RED CELL DISTRIBUTION WIDTH 14.1 % (10.0-14.5)
[2019-01-14] MEDS ORDERED: NITROGLYCERIN 0.4 MG SL TABS BTL 25'S SL PRN ×2 (15:30→20:15)
--- NOTE | 2019-01-14 15:34 | Diagnostic Imaging Report ---
INDICATION: Chest pain x 45 minutes. EXAMINATION: Portable chest at 3:03 p.m. FINDINGS: Heart size and pulmonary vascularity are normal. Lungs are clear. There are no effusions or pneumothoraces. IMPRESSION: Negative chest. Dictated by: Dictated on workstation # [id number]
[2019-01-14 15:52] LABS: INR 0.9 (0.8-1.4); PROTHROMBIN TIME PATIENT 12.6 SEC (12.2-14.7)
--- NOTE | 2019-01-14 15:55 | ED Chest Pain ---
General Chief Complaint: Chest Pain Stated Complaint: CHEST PAIN Source: patient Exam Limitations: no limitations History of Present Illness Date Seen by Provider: Jan 14, 2019 Time Seen by Provider: 15:05 Initial Comments The patient is a pleasant 48-year-old male presents for evaluation of substernal chest pain which started approximately 30 minutes prior to arrival. He denies ever having a similar chest pain. He states that he take his normal medications earlier today including a baby aspirin. Driving when the pain began. He states that he came to the hospital for a "testosterone injection" and mentioned the chest pain and then they brought him in as an emergency room patient. He denies any radiation of the pain. He does feel somewhat dizzy. He denies nausea or vomiting, diaphoresis, back pain, arm or jaw pain, palpitations, shortness of breath, pain with deep breaths, fevers or chills. He is alert and oriented 4, calm, and appears to be in no distress this time. Timing/Duration: 1/2 hour Severity/Quality: moderate Location: substernal Radiation: no radiation Activities at Onset: none (driving) Prior CP/Workup: no prior chest pain ASA po MECHANICAL INTERN: Yes NTG SL MECHANICAL INTERN: No Associated Symptoms: dizziness Allergies and Home Medications Allergies Coded Allergies: No Known Drug Allergies (Unverified , 12/21/17) Home Medications Albuterol Sulfate 1 Puff Puff, 2 PUFF IH Q4H PRN for WHEEZING 1 PUFF = 90 MCG Prescribed by: STAN CARREON on 09/19/18 1215 Aripiprazole 20 Mg Tablet, 20 MG PO DAILY, (Reported) Aspirin 81 Mg Tablet.dr, 81 MG PO DAILY, (Reported) Atorvastatin Calcium 40 Mg Tablet, 40 MG PO HS Prescribed by: MIGUEL SARABIA on 07/04/17 1438 Bupropion HCl 100 Mg Tablet, 200 MG PO DAILY, (Reported) Bupropion HCl 100 Mg Tablet, 200 MG PO NOON, (Reported) Cephalexin 500 Mg Capsule, 500 MG PO QID, (Reported) Dicyclomine HCl 10 Mg Capsule, 10 MG PO QID, (Reported) Famotidine 20 Mg Tablet, 20 MG PO BID, (Reported) Fenofibrate,Micronized 145 Mg Tablet, 145 MG PO DAILY, (Reported) Gabapentin 300 Mg Capsule, 300 MG PO BID, (Reported) 300mg in am, 300mg at noon Gabapentin 600 Mg Tablet, 600 MG PO HS, (Reported) Hydrocodone Bit/Acetaminophen 1 Tab Tab, 1 EACH PO Q4-6HR PRN for PAIN-MODERATE Prescribed by: LOGAN SNELL on 07/11/181311 Hydrocodone Bit/Acetaminophen 1 Tab Tab, 1 EACH PO Q4-6HR PRN for PAIN-MODERATE Prescribed by: SALTY MENDEZ on 08/21/181935 Hyoscyamine Sulfate 0.125 Mg Tablet, 0.125 MG PO QID PRN for SPASMS, (Reported) L.acidoph & Paracasei,B.lactis 1 Each Capsule, 1 EACH PO DAILY, (Reported) Levofloxacin 500 Mg Tablet, 500 MG PO DAILY Prescribed by: LOGAN SNELL on 07/11/181311 Mesalamine 1.2 Gm Tablet.dr, 4.8 GM PO DAILY, (Reported) Metoprolol Tartrate 25 Mg Tablet, 25 MG PO BID, (Reported) Multivitamin 1 Each Tablet, 1 EACH PO DAILY, (Reported) Nifedipine 30 Mg Tablet.er, 30 MG PO DAILY, (Reported) [place]-3 Acid Ethyl Esters 1 Gm Capsule, 2 G PO BID WITH MEALS, (Reported) Phentermine HCl 37.5 Mg Capsule, 37.5 MG PO DAILY, (Reported) Potassium Chloride 20 Meq Tablet.er, 20 MEQ PO BID, (Reported) Ropinirole HCl 5 Mg Tablet, 5 MG PO TID, (Reported) Solifenacin Succinate 5 Mg Tablet, 5 MG PO DAILY, (Reported) DAILY AT 0900 Sucralfate 1 Gm Tablet, 1 GM PO BID, (Reported) TWICE DAILY AT 1200 AND 2100 Tamsulosin HCl 0.4 Mg Cap, 0.4 MG PO DAILY Prescribed by: LOGAN SNELL on 07/11/181311 Topiramate 200 Mg Tablet, 200 MG PO BID, (Reported) Tramadol HCl 50 Mg Tablet, 50 MG PO QID Prescribed by: RUDY MEREDITH on 08/25/17 0131 Patient Home Medication List Home Medication List Reviewed: Yes Review of Systems Review of Systems Constitutional: dizziness EENTM: No Symptoms Reported Respiratory: No Symptoms Reported Cardiovascular: Chest Pain Gastrointestinal: No Symptoms Reported Genitourinary: No Symptoms Reported Musculoskeletal: no symptoms reported Skin: no symptoms reported Psychiatric/Neurological: No Symptoms Reported Endocrine: No Symptoms Reported Hematologic/Lymphatic: No Symptoms Reported All Other Systems Reviewed Negative Unless Noted: Yes Past Uryebiz-Vfumdx-Razefa Hx Past Med/Social Hx: Reviewed Nursing Past Med/Soc Hx Patient Social History Alcohol Beverage of Choice: Beer Drug of Choice: POT Type Used: Cigarettes Former Smoker, Quit: Jun 04, 2017 Recent Foreign Travel: No Recent Hopitalizations: No Immunizations Up To Date Tetanus Booster (TDap): Unknown PED Vaccines UTD: No Date of Pneumonia Vaccine: May 22, 2016 Date of Influenza Vaccine: Dec 01, 2017 Seasonal Allergies Seasonal Allergies: No Past Medical History Surgeries: Yes (LAP EVELIO, BACK SURGERY, FINGER; LITHOTRIPSY ) Cardiac, Gallbladder, Orthopedic, Renal Respiratory: Yes (C-PAP MACHINE) Sleep Apnea, COPD Currently Using CPAP: Yes Currently Using BIPAP: No Cardiac: Yes High Cholesterol, Hypertension Neurological: No Reproductive Disorders: No Sexually Transmitted Disease: No HIV/AIDS: No Genitourinary: Yes Kidney Stones, Renal Failure Gastrointestinal: Yes (S/P EVELIO; FATTY LIVER ON CT. ) Colitis, Gastroesophageal Reflux, Gall Bladder Disease Musculoskeletal: Yes Arthritis, Chronic Back Pain Endocrine: Yes (MORBID OBESITY) Diabetes, Non-Insulin dep HEENT: Yes (POOR DENTITION) Cancer: No Psychosocial: Yes (BIPOLAR, POLYSUBSTANCE ABUSE) Anxiety, Bipolar, Depression Integumentary: No Blood Disorders: No Adverse Reaction/Blood Tranf: No Family Medical History Completed stroke DVT 19 MOTHER, , Onset:Unknown Diabetes mellitus 19 MOTHER, , Onset:Unknown G8 BROTHER, Onset:Unknown FH: gastric ulcer 19 FATHER, Onset:Unknown No Pertinent Family Hx Physical Exam Vital Signs Capillary Refill : Height, Weight, BMI Height: 5'10.00" Weight: 330lbs. 3.0oz. 149.752669wq; 46.00 BMI Method:Stated General Appearance: No Apparent Distress, WD/WN HEENT: PERRL/EOMI, Pharynx Normal Neck: Full Range of Motion, Non Tender Respiratory: Chest Non Tender, Lungs Clear, Normal Breath Sounds, No Accessory Muscle Use Cardiovascular: Regular Rate, Rhythm, No Edema, No Murmur Gastrointestinal: Normal Bowel Sounds, No Pulsatile Mass, Soft Extremity: Normal Capillary Refill, Non Tender Neurologic/Psychiatric: Alert, Oriented x3, No Motor/Sensory Deficits, Normal Mood/Affect Skin: Normal Color, Warm/Dry Progress/Results/Core Measures Results/Orders Lab Results Laboratory Tests Test 01/14/19 15:16 Range/Units White Blood Count 10.0 4.3-11.0 10^3/uL Red Blood Count 5.18 4.35-5.85 10^6/uL Hemoglobin 16.2 13.3-17.7 G/DL Hematocrit 48 40-54 % Mean Corpuscular Volume 93 80-99 FL Mean Corpuscular Hemoglobin 31 25-34 PG Mean Corpuscular Hemoglobin Concent 34 32-36 G/DL Red Cell Distribution Width 14.1 10.0-14.5 % Platelet Count 187 130-400 10^3/uL Mean Platelet Volume 10.4 7.4-10.4 FL Neutrophils (%) (Auto) 66 42-75 % Lymphocytes (%) (Auto) 20 12-44 % Monocytes (%) (Auto) 8 0-12 % Eosinophils (%) (Auto) 3 0-10 % Basophils (%) (Auto) 1 0-10 % Neutrophils # (Auto) 6.6 1.8-7.8 X 10^3 Lymphocytes # (Auto) 2.0 1.0-4.0 X 10^3 Monocytes # (Auto) 0.8 0.0-1.0 X 10^3 Eosinophils # (Auto) 0.3 0.0-0.3 10^3/uL Basophils # (Auto) 0.1 0.0-0.1 10^3/uL Prothrombin Time 12.6 12.2-14.7 SEC INR Comment 0.9 0.8-1.4 Activated Partial Thromboplast Time 23 L 24-35 SEC Sodium Level 143 135-145 MMOL/L Potassium Level 3.4 L 3.6-5.0 MMOL/L Chloride Level 106 98-107 MMOL/L Carbon Dioxide Level 23 21-32 MMOL/L Anion Gap 14 5-14 MMOL/L Blood Urea Nitrogen 13 7-18 MG/DL Creatinine 1.53 H 0.60-1.30 MG/DL Estimat Glomerular Filtration Rate 49 BUN/Creatinine Ratio 8 Glucose Level 83 70-105 MG/DL Calcium Level 9.9 8.5-10.1 MG/DL Corrected Calcium 9.7 8.5-10.1 MG/DL Magnesium Level 1.9 1.6-2.4 MG/DL Total Bilirubin 0.4 0.1-1.0 MG/DL Aspartate Amino Transf (AST/SGOT) 35 H 5-34 U/L Alanine Aminotransferase (ALT/SGPT) 41 0-55 U/L Alkaline Phosphatase 58 40-136 U/L Troponin I < 0.30 <0.30 NG/ML Pro-B-Type Natriuretic Peptide 20.4 <75.0 PG/ML Total Protein 7.1 6.4-8.2 GM/DL Albumin 4.2 3.2-4.5 GM/DL My Orders Orders - BRITNI PRAKASH DO Cbc With Automated Diff (01/14/19 15:08) Magnesium (01/14/19 15:08) Chest 1 View Ap/Pa Only (01/14/19 15:08) Ekg Tracing (01/14/19 15:08) Comprehensive Metabolic Panel (01/14/19 15:08) Protime With Inr (01/14/19 15:08) Partial Thromboplastin Time (01/14/19 15:08) O2 (01/14/19 15:08) Monitor-Rhythm Ecg Trace Only (01/14/19 15:08) Ed Iv/Invasive Line Start (01/14/19 15:08) Creatine Kinase Mb (01/14/19 15:08) Troponin I Fs (01/14/19 15:08) Probnp Fs (01/14/19 15:08) Nitroglycerin 0.4 Mg Btl 25's (Nitrostat (01/14/19 15:30) Fibrin Degradation Products (01/14/19 16:12) Medications Given in ED Current Medications Medications Dose Ordered Sig/Saba Route Start Time Stop Time Status Last Admin Dose Admin Nitroglycerin 0.4 mg NEEDED PRN SL 01/14/19 15:30 01/14/19 15:30 0.4 MG Progress Progress Note : Progress Note @1615 - Patient updated on lab and imaging results. He reports that the nitroglycerin did help with this chest discomfort and allowed him to breathe easier and he tells me that he has been to the catheter lab in the past with his custodial engineer Dr. Bauman but that no stents were placed. He is agreeable to admission. The hospitalist, Dr. Naranjo, was paged as well as his custodial engineer Dr. Bauman. @1225 - Dr. Naranjo accepts the admission. @1650 - Dr. Ndiaye (covering for Dr. Bauman) accepts the cardiology consult. EKG : Comment @1510 - normal sinus rhythm, rate of 90, normal axis, no acute ischemic findings noted, no STEMI, reviewed and interpreted by myself. Departure Communication (Admissions) Time/Spoke to Admitting Phy: 16:25 Dr. Naranjo accepts admission, Dr. Ndiaye accepts cardiology consultation Impression Primary Impression: Chest pain Disposition: ADMITTED INPATIENT Condition: Stable Admissions Decision to Admit Reason: Admit from ER (General) Decision to Admit/Date: Jan 14, 2019 Time/Decision to Admit Time: 16:25 Departure-Patient Inst. Referrals: ÁNGEL CASPER MD (PCP/Family) Primary Care Physician BRITNI PRAKASH DO Jan 14, 2019 15:55 POS
[2019-01-14 15:56] LABS: ALBUMIN 4.2 GM/DL (3.2-4.5); BILIRUBIN,TOTAL 0.4 MG/DL (0.1-1.0); CALCIUM 9.9 MG/DL (8.5-10.1); CREATININE SERUM 1.53 MG/DL (0.60-1.30); MAGNESIUM 1.9 MG/DL (1.6-2.4); POTASSIUM 3.4 MMOL/L (3.6-5.0); TOTAL PROTEIN 7.1 GM/DL (6.4-8.2)
--- NOTE | 2019-01-14 19:57 | NUR ---
DREW HILL admitted to room 510-1, with an admitting diagnosis of CHEST PAIN, on 01/14/19 from [facility] ER via EMS/STRETCHER, accompanied by EMS STAFF. DREW HILL introduced to surroundings, call light, bed controls, phone, TV, temperature control, lights, meal times, smoking policy, visitor policy, side rail policy, bathrooms and showers. Patient Rights given to patient in the handbook. DREW HILL verbalizes understanding that [facility] is not responsible for the loss or damage to any personal effects or valuables that are kept in the patients possession during their hospitalization. Patient and/or family were informed about the Rapid Response Team and its purpose.
[2019-01-14 20:00] VITALS: BP 146/99
[2019-01-14] MEDS ORDERED: CATHETER FLUSH 10 ML SYR IV PRN (20:00)
[2019-01-14] MEDS ORDERED: morphine INJ 4 MG/ML 1 ML (VIAL/SYRINGE) IV PRN (20:15)
[2019-01-14] MEDS ORDERED: ONDANSETRON 4 MG/2 ML (SDV) Z0FRAN IV PRN (20:15)
[2019-01-14 20:20] VITALS: BP 146/99
--- NOTE | 2019-01-14 20:43 | NUR ---
REPORT RECEIVED FROM EDWIN MCPHERSON.
--- NOTE | 2019-01-14 21:07 | NUR ---
THIS RN NOTIFIED DR. ELIZABETH OF PT HAVING STRONG, NON-PRODUCTIVE COUGH. NEW ORDERS OBTAINED, SEE ORDER HISTORY.
[2019-01-14] MEDS: BENZONATATE 100 MG (TESSALON) CAPSULE PO PRN (21:27)
[2019-01-14] MEDS: inSUlin ASPART (NovoLOG) 1 UNIT/0.01 ML (CHARGE PER UNIT) SC SCH (21:28)
[2019-01-14] MEDS: CATHETER FLUSH 10 ML SYR IV SCH (22:36)
[2019-01-14 23:05] LABS: CREATINE KINASE MB 3.1 NG/ML (<6.6)
[2019-01-15] VITALS: BP 146/91
[2019-01-15 04:00] VITALS: BP 118/78
[2019-01-15] MEDS: inSUlin ASPART (NovoLOG) 1 UNIT/0.01 ML (CHARGE PER UNIT) SC SCH (05:29)
--- NOTE | 2019-01-15 05:36 | History & Physical ---
HPI History of Present Illness: 48 yo male came to ER due to chest pain in mid chest that was pressure like starting yesterday afternoon. Has also had cough for about a week. He had associated shortness of breath, no radiation, no diaphoresis. Date seen by provider: Jan 15, 2019 Time Seen by Provider: 05:30 Attending Physician Blank Naranjo MD PCP Freddy Renae MD Consult Date of Admission Jan 14, 2019 at 17:56 Home Medications Home Medications Reviewed patient Home Medication Reconciliation performed by pharmacy medication reconciliations fire range technician and/or nursing. Patients Allergies have been reviewed. Allergies Coded Allergies: No Known Drug Allergies (Unverified , 12/21/17) POE-Ayokjp-Opnngb Hx Patient Social History Alcohol Use: Denies Use Recreational Drug Use: Yes Drug of Choice: Marijuana Smoking Status: Current Everyday Smoker Type Used: Cigarettes 2nd Hand Smoke Exposure: No Recent Foreign Travel: No Contact w/other who traveled: No Recent Hopitalizations: No Recent Infectious Disease Expo: No Immunizations Up To Date Tetanus Booster (TDap): Unknown Date of Pneumonia Vaccine: May 22, 2016 Date of Influenza Vaccine: Nov 11, 2018 Past Medical History PMHx: HTN NIDDM Restless Legs COPD Sleep apnea on cpap SurgHx: Back surgery Cholecystectomy Family Medical History Significant Family History: No Pertinent Family Hx Family History: Completed stroke DVT 19 MOTHER, , Onset:Unknown Diabetes mellitus 19 MOTHER, , Onset:Unknown G8 BROTHER, Onset:Unknown FH: gastric ulcer 19 FATHER, Onset:Unknown Review of Systems (CHC) Constitutional: No fever EENTM: No nose congestion, No throat pain Respiratory: cough Cardiovascular: see HPI Gastrointestinal: No abdominal pain, No constipation, No diarrhea, No nausea Genitourinary: No dysuria Musculoskeletal: joint pain (chronic) Skin: No rash Reviewed Test Results Reviewed Test Results Lab Laboratory Tests 01/14/19 15:16 Radiology CXR 01/14/19: no acute process Physical Exam-([facility]) Physical Exam Vital Signs VS - Last 72 Hours, by Label POS 01/14/19 01/14/19 01/14/19 01/14/19 15:05 15:05 19:01 20:00 Temp 36.8 37.1 36.4 Pulse 91 91 89 Resp 20 16 21 B/P (MAP) 124/77 (93) 121/85 146/99 (115) Pulse Ox 96 94 95 O2 Delivery Room Air Room Air Room Air Room Air 01/14/19 01/14/19 01/14/19 01/14/19 20:12 20:20 20:24 21:10 Temp 36.4 Pulse 92 89 Resp 21 B/P (MAP) 146/99 Pulse Ox 95 O2 Delivery Nasal Cannula Room Air Room Air 01/15/19 01/15/19 01/15/19 01/15/19 00:00 00:00 01:00 04:00 Temp 36.3 Pulse 89 84 Resp 18 B/P (MAP) 146/91 (109) Pulse Ox 92 O2 Delivery NIV CPAP NIV CPAP NIV CPAP 01/15/19 01/15/19 01/15/19 01/15/19 04:00 06:46 08:35 08:35 Temp 36.1 36.7 Pulse 83 82 84 Resp 18 18 B/P (MAP) 118/78 (91) 118/78 (91) Pulse Ox 100 95 95 O2 Delivery NIV CPAP Room Air Room Air 01/15/19 01/15/19 01/15/19 01/15/19 09:07 12:00 12:29 12:30 Temp 36.0 36.5 Pulse 91 80 Resp 20 18 B/P (MAP) 135/91 (106) 156/86 Pulse Ox 94 95 95 O2 Delivery Room Air Room Air Room Air Room Air Capillary Refill : Less Than 3 Seconds General Appearance: no apparent distress Respiratory: lungs clear, normal breath sounds Cardiovascular: regular rate, rhythm, no murmur Gastrointestinal: normal bowel sounds, non tender, soft Extremities: no pedal edema Neurologic/Psychiatric: alert, normal mood/affect Skin: normal color, warm/dry Assessment/Plan Assessment/Plan Admission Status: Observation (1) Chest pain Status: Acute Assessment & Plan: Cardiology consulted, appreciate recommendations. (2) Chronic renal disease Status: Chronic (3) COPD (chronic obstructive pulmonary disease) (4) GERD (gastroesophageal reflux disease) Status: Chronic (5) Hyperlipidemia Status: Chronic (6) Essential (primary) hypertension Status: Chronic (7) Non-insulin dependent type 2 diabetes mellitus Status: Chronic Clinical Quality Measures AMI/AHF: ASA po Prior to arrival: Yes DVT/VTE Risk/Contraindication: Risk Factor Score Per Nursin RFS Level Per Nursing on Admit: 4+=Very High CLARA,BLANK N MD Jan 15, 2019 05:36 POS
[2019-01-15] MEDS: BENZONATATE 100 MG (TESSALON) CAPSULE PO PRN (06:03)
[2019-01-15] MEDS: CATHETER FLUSH 10 ML SYR IV SCH (06:03)
[2019-01-15] MEDS ORDERED: ENOXAPARIN 40 MG/0.4 ML (LOVENOX) SYR SC SCH (07:00)
[2019-01-15 08:35] VITALS: BP 118/78
[2019-01-15] MEDS ORDERED: ASPIRIN E.C. 81 MG (ECOTRIN) TAB PO SCH (09:00)
--- NOTE | 2019-01-15 10:03 | Consultation-Cardiology ---
HPI-Cardiology Cardiology Consultation Date of Consultation 01/15/19 Date of Admission Time Seen by Provider: 09:59 Indication: chest pain HPI 48 years old gentleman with history of mild coronary artery disease per cardiac catheterization done last year by Dr. Bauman, hypertension, hyperlipidemia and diabetes mellitus. Active smoker and morbid obesity. Started to have cough n onproductive, having chest pain in the lower retrosternal area reproducible by palpating and by coughing and taking deep breath. He was referred for the emergency room and admitted for observation cardiac enzymes and EKG did not show any acute abnormality still having chest pain with coughing and still having some cough. Home Medications & Allergies Allergies: Coded Allergies: No Known Drug Allergies (Unverified , 12/21/17) Home Medication List Reviewed: Yes BUY-Rrkaxs-Wvtpik Hx Patient Social History Marital Status: Alcohol Use: Denies Use Recreational Drug Use: Yes Drug of Choice: Marijuana Smoking Status: Current Everyday Smoker Type Used: Cigarettes 2nd Hand Smoke Exposure: No Recent Foreign Travel: No Recent Infectious Disease Expo: No Recent Hopitalizations: No Immunizations Up To Date Tetanus Booster (TDap): Unknown Date of Pneumonia Vaccine: May 22, 2016 Date of Influenza Vaccine: Nov 11, 2018 Past Medical History discussed below Family Medical History Significant Family History: No Pertinent Family Hx Family History: Completed stroke DVT 19 MOTHER, , Onset:Unknown Diabetes mellitus 19 MOTHER, , Onset:Unknown G8 BROTHER, Onset:Unknown FH: gastric ulcer 19 FATHER, Onset:Unknown Review of Systems-General Review of Systems Constitutional: no symptoms reported, see HPI; No fever EENTM: see HPI; No nose congestion, No throat pain Respiratory: see HPI, cough, dyspnea on exertion; No hemoptysis, No orthopnea, No phlegm, No short of breath, No stridor, No wheezing, No other Cardiovascular: see HPI, chest pain; No edema, No Hx of Intervention, No pal pitations, No syncope, No vascular heart diseas, No other Gastrointestinal: see HPI; No abdominal pain, No constipation, No diarrhea, No nausea Genitourinary: see HPI; No dysuria Musculoskeletal: see HPI, joint pain (chronic) Skin: see HPI; No rash Psychiatric/Neurological: See HPI All Other Systems Reviewed Negative Unless Noted: Yes Reviewed Test Results Reviewed Test Results Lab Laboratory Tests Test 01/14/19 15:16 01/14/19 18:06 01/14/19 21:26 01/15/19 05:24 Range/Units White Blood Count 10.0 4.3-11.0 10^3/uL Red Blood Count 5.18 4.35-5.85 10^6/uL Hemoglobin 16.2 13.3-17.7 G/DL Hematocrit 48 40-54 % Mean Corpuscular Volume 93 80-99 FL Mean Corpuscular Hemoglobin 31 25-34 PG Mean Corpuscular Hemoglobin Concent 34 32-36 G/DL Red Cell Distribution Width 14.1 10.0-14.5 % Platelet Count 187 130-400 10^3/uL Mean Platelet Volume 10.4 7.4-10.4 FL Neutrophils (%) (Auto) 66 42-75 % Lymphocytes (%) (Auto) 20 12-44 % Monocytes (%) (Auto) 8 0-12 % Eosinophils (%) (Auto) 3 0-10 % Basophils (%) (Auto) 1 0-10 % Neutrophils # (Auto) 6.6 1.8-7.8 X 10^3 Lymphocytes # (Auto) 2.0 1.0-4.0 X 10^3 Monocytes # (Auto) 0.8 0.0-1.0 X 10^3 Eosinophils # (Auto) 0.3 0.0-0.3 10^3/uL Basophils # (Auto) 0.1 0.0-0.1 10^3/uL Prothrombin Time 12.6 12.2-14.7 SEC INR Comment 0.9 0.8-1.4 Activated Partial Thromboplast Time 23 L 24-35 SEC D-Dimer 0.51 H 0.00-0.49 UG/ML Sodium Level 143 135-145 MMOL/L Potassium Level 3.4 L 3.6-5.0 MMOL/L Chloride Level 106 98-107 MMOL/L Carbon Dioxide Level 23 21-32 MMOL/L Anion Gap 14 5-14 MMOL/L Blood Urea Nitrogen 13 7-18 MG/DL Creatinine 1.53 H 0.60-1.30 MG/DL Estimat Glomerular Filtration Rate 49 BUN/Creatinine Ratio 8 Glucose Level 83 70-105 MG/DL Calcium Level 9.9 8.5-10.1 MG/DL Corrected Calcium 9.7 8.5-10.1 MG/DL Magnesium Level 1.9 1.6-2.4 MG/DL Total Bilirubin 0.4 0.1-1.0 MG/DL Aspartate Amino Transf (AST/SGOT) 35 H 5-34 U/L Alanine Aminotransferase (ALT/SGPT) 41 0-55 U/L Alkaline Phosphatase 58 40-136 U/L Creatine Kinase MB 3.1 <6.6 NG/ML Troponin I < 0.30 < 0.30 <0.30 NG/ML Pro-B-Type Natriuretic Peptide 20.4 <75.0 PG/ML Total Protein 7.1 6.4-8.2 GM/DL Albumin 4.2 3.2-4.5 GM/DL Glucometer 122 H 122 H 70-110 MG/DL Radiology CXR 01/14/19: no acute process Physical Exam Physical Exam Vital Signs Vital Signs - First Documented 01/14/19 15:05 Temp 36.8 Pulse 91 Resp 20 B/P (MAP) 124/77 (93) Pulse Ox 96 O2 Delivery Room Air Capillary Refill : Less Than 3 Seconds Height, Weight, BMI Height: 5'10.00" Weight: 330lbs. 3.0oz. 149.455563et; 47.57 BMI Method:Stated General Appearance: No Apparent Distress, WD/WN Eyes: Bilateral Eye Normal Inspection, Bilateral Eye PERRL, Bilateral Eye EOMI HEENT: PERRL/EOMI, Pharynx Normal Neck: Full Range of Motion, Non Tender Respiratory: Chest Non Tender, Lungs Clear, Normal Breath Sounds, No Accessory Muscle Use Cardiovascular: Regular Rate, Rhythm, No Edema, No Murmur Gastrointestinal: Normal Bowel Sounds, No Pulsatile Mass, Soft Back: Normal Inspection, No CVA Tenderness, No Vertebral Tenderness Extremity: Normal Capillary Refill, Non Tender Neurologic/Psychiatric: Alert, Oriented x3, No Motor/Sensory Deficits, Normal Mood/Affect Skin: Normal Color, Warm/Dry Lymphatic: No Adenopathy A/P-Cardiology Admission Diagnosis Chest pain Coronary artery disease Hypertension Hyperlipidemia Assessment/Plan Chest pain, atypical in presentation, by mouth to be pleuritic in nature. EKG and cardiac enzymes were negative. Reassured him at this time, okay for discharge and follow-up as an outpatientnext Coronary artery disease mild to moderate coronary disease per cardiac catheterization done in August 2017. Continue to monitor Dyspnea and cough. Probable exacerbation of COPD, managed by primary care physician COPD/obstructive sleep apnea using C Pap next Hypertension, continue on home medication monitor blood pressure Hyperlipidemia, monitor lipids next Diabetes mellitus, followed and managed by primary care physician next Tobaccoism, educated on smoking cessatiMorbid obesity, educated on weight loss. Clinical Quality Measures AMI/AHF: ASA po Prior to arrival: Yes DVT/VTE Risk/Contraindication: Risk Factor Score Per Nursin RFS Level Per Nursing on Admit: 4+=Very High KELSEY GOMEZ MD Jan 15, 2019 10:03 POS
[2019-01-15] MEDS ORDERED: LOPE2CAP PO (10:59)
[2019-01-15] MEDS ORDERED: ARIP30TA10 PO (10:59)
[2019-01-15] MEDS ORDERED: HYDR-3820 PO (10:59)
[2019-01-15] MEDS ORDERED: ATOR40TA70 PO (10:59)
[2019-01-15] MEDS ORDERED: FENO145T37 PO (10:59)
[2019-01-15] MEDS ORDERED: POTA20TA15 PO (10:59)
[2019-01-15] MEDS ORDERED: METO50TA15 PO (10:59)
[2019-01-15] MEDS ORDERED: FAMO20TA5 PO (10:59)
[2019-01-15] MEDS ORDERED: OMEG-105 PO (10:59)
[2019-01-15] MEDS ORDERED: ACET-2267 PO (10:59)
[2019-01-15] MEDS ORDERED: SUCR1TAB PO (10:59)
[2019-01-15] MEDS ORDERED: ACID1TAB5 PO (10:59)
[2019-01-15] MEDS ORDERED: RT-ALBUINH IH (10:59)
[2019-01-15] MEDS ORDERED: BUPR100T8 PO (10:59)
[2019-01-15] MEDS ORDERED: SOLI5TAB7 PO (10:59)
--- NOTE | 2019-01-15 11:03 | NUR ---
SPOKE WITH THE PATIENT ABOUT HIS MEDICATIONS. HE HAD MOST OF HIS BOTTLES WITH HIM EXCEPT FOR PROBIOTIC, HYDROCODONE, AND INHALER. I COMPARED THEM WITH THE EXT MED HX AND HE VERIFIED HOW HE TAKES THEM. IN ADDITION TO WHAT IS SHOWN ON THE EXT MED HX HE REPORTS HE HAS A PROAIR INHALER NEEDED. HE FILLED TERBINAFINE 250MG #30 12-22-18 - HE STATES HE NO LONGER TAKES THIS, IT WAS FOR A RASH THAT HAS MOSTLY RESOLVED. HE ALSO HAS A BOTTLE OF FLEXERIL 10MG #30 FILLED 03-14-18 - HE STATES HE DOES NOT TAKE THIS, THEY GRABBED IT BY MISTAKE. HE TAKES THE FOLLOWING OTC: TYLENOL PRN ASPIRIN 81MG DAILY PROBIOTIC DAILY MTV DAILY
[2019-01-15] MEDS ORDERED: BENZ100C18 PO (11:40)
--- NOTE | 2019-01-15 11:41 | Discharge Instructions ---
Discharge [facility] Discharge Medications New, Converted or Re-Newed RX: Transmitted to Pharmacy New Medications: Benzonatate (Tessalon Perles) 100 Mg Capsule 100 MG PO TID PRN for COUGH, #30 CAP 0 Refills Continued Medications: Acetaminophen (Tylenol Extra Strength) 500 Mg Tablet 1000 MG PO Q4H PRN for PAIN-MILD (1-4), TAB Albuterol Sulfate (Proair Hfa) 1 Puff Puff 2 PUFF IH Q4H PRN for SHORTNESS OF BREATH, INHALER 1 PUFF = 90 MCG Allopurinol (Allopurinol) 100 Mg Tablet 100 MG PO DAILY, TAB Aripiprazole (Aripiprazole) 30 Mg Tablet 30 MG PO DAILY, TAB Aspirin (Aspir 81) 81 Mg Tablet.dr 81 MG PO DAILY, TAB Atorvastatin Calcium (Atorvastatin Calcium) 40 Mg Tablet 40 MG PO HS, TAB Bupropion HCl (Bupropion HCl) 100 Mg Tablet 100 MG PO 1200, TAB Bupropion HCl (Bupropion HCl Sr) 100 Mg Tablet.er 200 MG PO DAILY, TAB Famotidine (Famotidine) 20 Mg Tablet 20 MG PO BID, TAB Fenofibrate Nanocrystallized (Fenofibrate) 145 Mg Tablet 145 MG PO HS, TAB Gabapentin (Gabapentin) 300 Mg Capsule 300 MG PO BID, CAP Hydrochlorothiazide (Hydrochlorothiazide) 25 Mg Tablet 25 MG PO DAILY, TAB Hydrocodone/Acetaminophen (Hydrocodon-Acetaminophn 10-325) 1 Each Tablet 1 TAB PO Q6H PRN for PAIN-MODERATE (5-7), TAB Hyoscyamine Sulfate (Hyoscyamine Sulfate) 0.125 Mg Tablet 0.125 MG PO QID, TAB L. Acidophilus/Bulgaricus (Lactinex Chewable Tablet) 1 Each Tab.chew 1 TAB PO DAILY, TAB Loperamide HCl (Loperamide) 2 Mg Capsule 2 MG PO QID PRN for LOOSE STOOLS, TAB Mesalamine (Mesalamine) 1.2 Gm Tablet.dr 4.8 GM PO DAILY, TAB TAKES 4 (1.2GM) TABLETS Metoprolol Tartrate (Metoprolol Tartrate) 50 Mg Tablet 25 MG PO BID, TAB TAKES 1/2 (50MG) TABLET Multivitamin (Multi-Vitamin Daily) 1 Each Tablet 1 TAB PO DAILY, TAB Nifedipine (Nifedipine ER) 30 Mg Tablet.er 30 MG PO DAILY, TAB [place]-3 Acid Ethyl Esters ([place]-3 Acid Ethyl Esters) 1 Gm Capsule 2 GM PO 1200,2100, CAP TAKES 2 (1GM) CAPSULES Potassium Chloride (Potassium Chloride) 20 Meq Tab.er.prt 40 MEQ PO BID, TAB TAKES 2 (20MEQ) TABLETS Ropinirole HCl (Ropinirole HCl) 5 Mg Tablet 5 MG PO 0800,1200,2100, TAB Solifenacin Succinate (Solifenacin Succinate) 5 Mg Tablet 5 MG PO DAILY, TAB Sucralfate (Sucralfate) 1 Gm Tablet 1 GM PO BID WITH MEALS, TAB Topiramate (Topiramate) 200 Mg Tablet 200 MG PO BID, TAB Patient Instructions Goal/Follow Up Appt: Follow up with Dr. Renae on 01/21 at 9:40 am. Return to The Hospital For: Fever, worsening shortness of breath, chest pain Activity & Diet Discharge Diet: ADA Diet Activity as Tolerated: Yes Copy Copies To 1: ÁNGEL RENAE MD, BETHANY N MD Jan 15, 2019 11:41 POS
[2019-01-15 12:00] VITALS: BP 135/91
[2019-01-15 12:30] VITALS: BP 156/86
--- NOTE | 2019-01-15 17:33 | Discharge Summary ---
Discharge Summary Hospital Course Problems/Diagnosis: (1) Chest pain Status: Acute Assessment & Plan: Cardiology consulted, EKG okay, troponin neg, not thought to be cardiac, appreciate recommendations. (2) Bronchitis Status: Acute Assessment & Plan: No fever and no wheezing, most likely viral, given script for tessalon. (3) Chronic renal disease Status: Chronic (4) COPD (chronic obstructive pulmonary disease) (5) GERD (gastroesophageal reflux disease) Status: Chronic (6) Hyperlipidemia Status: Chronic (7) Essential (primary) hypertension Status: Chronic (8) Non-insulin dependent type 2 diabetes mellitus Status: Chronic Hospital Course 5Date of Admission: Jan 14, 2019 at 17:56 Admission Diagnosis : Family Physician/Provider: Freddy Renae MD Date of Discharge: 01/15/19 Discharge Diagnosis: See problem list Hospital Course: See problem list Labs and Pending Lab Test: Laboratory Tests 01/14/19 18:06: Troponin I < 0.30 01/14/19 21:26: Glucometer 122H 01/15/19 05:24: Glucometer 122H Home Meds Active Tessalon Perles (Benzonatate) 100 Mg Capsule 100 Mg PO TID PRN Reported Proair Hfa (Albuterol Sulfate) 1 Puff Puff 2 Puff IH Q4H PRN 1 PUFF = 90 MCG Tylenol Extra Strength (Acetaminophen) 500 Mg Tablet 1,000 Mg PO Q4H PRN Atorvastatin Calcium 40 Mg Tablet 40 Mg PO HS Loperamide (Loperamide HCl) 2 Mg Capsule 2 Mg PO QID PRN Bupropion HCl Sr (Bupropion HCl) 100 Mg Tablet.er 200 Mg PO DAILY Hydrocodon-Acetaminophn 10-325 (Hydrocodone/Acetaminophen) 1 Each Tablet 1 Tab PO Q6H PRN Potassium Chloride 20 Meq Tab.er.prt 40 Meq PO BID TAKES 2 (20MEQ) TABLETS Metoprolol Tartrate 50 Mg Tablet 25 Mg PO BID TAKES 1/2 (50MG) TABLET Famotidine 20 Mg Tablet 20 Mg PO BID Sucralfate 1 Gm Tablet 1 Gm PO BID WITH MEALS Fenofibrate (Fenofibrate Nanocrystallized) 145 Mg Tablet 145 Mg PO HS [place]-3 Acid Ethyl Esters 1 Gm Capsule 2 Gm PO 1200,2100 TAKES 2 (1GM) CAPSULES Solifenacin Succinate 5 Mg Tablet 5 Mg PO DAILY Aripiprazole 30 Mg Tablet 30 Mg PO DAILY Lactinex Chewable Tablet (L. Acidophilus/Bulgaricus) 1 Each Tab.chew 1 Tab PO DAILY Ropinirole HCl 5 Mg Tablet 5 Mg PO 0800,1200,2100 Gabapentin 300 Mg Capsule 300 Mg PO BID Nifedipine ER (Nifedipine) 30 Mg Tablet.er 30 Mg PO DAILY Allopurinol 100 Mg Tablet 100 Mg PO DAILY Hydrochlorothiazide 25 Mg Tablet 25 Mg PO DAILY Hyoscyamine Sulfate 0.125 Mg Tablet 0.125 Mg PO QID Topiramate 200 Mg Tablet 200 Mg PO BID Multi-Vitamin Daily (Multivitamin) 1 Each Tablet 1 Tab PO DAILY Bupropion HCl 100 Mg Tablet 100 Mg PO 1200 Aspir 81 (Aspirin) 81 Mg Tablet.dr 81 Mg PO DAILY Mesalamine 1.2 Gm Tablet.dr 4.8 Gm PO DAILY TAKES 4 (1.2GM) TABLETS Assessment/Pt DC Instructions See separate d/c instructions Discharge Physical Examination Allergies: Coded Allergies: No Known Drug Allergies (Unverified , 12/21/17) Discharge Summary Date of Admission Jan 14, 2019 at 17:56 Date of Discharge Jan 15, 2019 at 12:30 Discharge Date: Jan 15, 2019 Clinical Quality Measures AMI/AHF: ASA po Prior to arrival: Yes DVT/VTE Risk/Contraindication: Risk Factor Score Per Nursin RFS Level Per Nursing on Admit: 4+=Very High BLANK ELIZABETH MD Jan 15, 2019 17:33 POS
== END 2019-01-15 11:13 | disposition home or self-care (01) ==
LOC: EDUNIT# 15:00 → ER FS 15:01 → CSD 17:56 → UNDOADMOB 17:56 → CSD 19:57 → UNDODISOB 01-15 12:30
PROVIDERS: ADMIT Family Medicine; ATTEND Family Medicine
DX: R07.9 Chest pain, unspecified (principal); I12.9 Hypertensive chronic kidney disease with stage 1 through stage 4 chronic kidney disease, or unspecified chronic kidney disease; E11.22 Type 2 diabetes mellitus with diabetic chronic kidney disease; N18.9 Chronic kidney disease, unspecified; J20.9 Acute bronchitis, unspecified; J44.9 Chronic obstructive pulmonary disease, unspecified; G25.81 Restless legs syndrome; K21.9 Gastro-esophageal reflux disease without esophagitis; E78.5 Hyperlipidemia, unspecified; F17.210 Nicotine dependence, cigarettes, uncomplicated; E66.01 Morbid (severe) obesity due to excess calories; Z68.42 Body mass index [BMI] 45.0-49.9, adult; Z79.899 Other long term (current) drug therapy; Z79.82 Long term (current) use of aspirin; Z83.3 Family history of diabetes mellitus; Z82.3 Family history of stroke; Z90.49 Acquired absence of other specified parts of digestive tract; G47.33 Obstructive sleep apnea (adult) (pediatric)
CPT/HCPCS: 36415; 71045; 80053; 82553; 82962; 83735; 83880; 84484; 85025; 85379; 85610; 85730; 93005; 93041

== ENCOUNTER 2019-01-17 14:21 | Emergency (ER) | payer MEDICAID ==
[~2019-01-17] VITALS: Ht 177 cm; Wt 150.4 kg
[~2019-01-17 14:21] MED LIST changes: +ACET-2267 PO; +ACID1TAB5 PO; +ARIP30TA10 PO; +ATOR40TA70 PO; +BUPR100T8 PO; +FENO145T37 PO; +OMEG-105 PO; +POTA20TA15 PO; +SOLI5TAB7 PO; +SUCR1TAB PO
[2019-01-17] MEDS ORDERED: NS IV 500 ML 500 ML IV ONE (14:28)
[2019-01-17] MEDS ORDERED: KETOROLAC 15 MG/ML VIAL IVP ONE (14:30)
[2019-01-17] MEDS ORDERED: FAMOTIDINE 20 MG (PEPCID) TABLET PO STA (14:31)
--- NOTE | 2019-01-17 14:31 | ED Abdominal Pain ---
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 He took some Tylenol that time and has not made a difference yet. He has not taken any antacids. He is not having any nausea but he did have a loose stool earlier today. He is a history of colitis. He denies diverticulitis or ulcerative colitis/Crohn's. He has diabetes bipolar and denies any fever nausea vomiting chills. He had his gallbladder out and some back surgeries in the past. He has a history of GERD. 48 years old gentleman with history of mild coronary artery disease per cardiac catheterization done last year by Dr. Bauman, hypertension, hyperlipidemia and diabetes mellitus. Active smoker and morbid obesity. Allergies and Home Medications Allergies Coded Allergies: No Known Drug Allergies (Unverified , 12/21/17) Home Medications Acetaminophen 500 Mg Tablet, 1,000 MG PO Q4H PRN for PAIN-MILD (1-4), (Reported) Albuterol Sulfate 1 Puff Puff, 2 PUFF IH Q4H PRN for SHORTNESS OF BREATH, (Reported) 1 PUFF = 90 MCG Allopurinol 100 Mg Tablet, 100 MG PO DAILY, (Reported) Aripiprazole 30 Mg Tablet, 30 MG PO DAILY, (Reported) Aspirin 81 Mg Tablet.dr, 81 MG PO DAILY, (Reported) Atorvastatin Calcium 40 Mg Tablet, 40 MG PO HS, (Reported) Benzonatate 100 Mg Capsule, 100 MG PO TID PRN for COUGH Prescribed by: BLANK ELIZABETH on 01/15/19 1140 Bupropion HCl 100 Mg Tablet, 100 MG PO 1200, (Reported) Bupropion HCl 100 Mg Tablet.er, 200 MG PO DAILY, (Reported) Famotidine 20 Mg Tablet, 20 MG PO BID, (Reported) Fenofibrate Nanocrystallized 145 Mg Tablet, 145 MG PO HS, (Reported) Gabapentin 300 Mg Capsule, 300 MG PO BID, (Reported) Hydrochlorothiazide 25 Mg Tablet, 25 MG PO DAILY, (Reported) Hydrocodone/Acetaminophen 1 Each Tablet, 1 TAB PO Q6H PRN for PAIN-MODERATE (5- 7), (Reported) Hyoscyamine Sulfate 0.125 Mg Tablet, 0.125 MG PO QID, (Reported) L. Acidophilus/Bulgaricus 1 Each Tab.chew, 1 TAB PO DAILY, (Reported) Loperamide HCl 2 Mg Capsule, 2 MG PO QID PRN for LOOSE STOOLS, (Reported) Mesalamine 1.2 Gm Tablet.dr, 4.8 GM PO DAILY, (Reported) TAKES 4 (1.2GM) TABLETS Metoprolol Tartrate 50 Mg Tablet, 25 MG PO BID, (Reported) TAKES 1/2 (50MG) TABLET Multivitamin 1 Each Tablet, 1 TAB PO DAILY, (Reported) Nifedipine 30 Mg Tablet.er, 30 MG PO DAILY, (Reported) [place]-3 Acid Ethyl Esters 1 Gm Capsule, 2 GM PO 1200,2100, (Reported) TAKES 2 (1GM) CAPSULES Potassium Chloride 20 Meq Tab.er.prt, 40 MEQ PO BID, (Reported) TAKES 2 (20MEQ) TABLETS Ropinirole HCl 5 Mg Tablet, 5 MG PO 0800,1200,2100, (Reported) Solifenacin Succinate 5 Mg Tablet, 5 MG PO DAILY, (Reported) Sucralfate 1 Gm Tablet, 1 GM PO BID WITH MEALS, (Reported) Topiramate 200 Mg Tablet, 200 MG PO BID, (Reported) Patient Home Medication List Home Medication List Reviewed: Yes Review of Systems Review of Systems Constitutional: No chills, No fever EENTM: No Blurred Vision, No Double Vision Respiratory: Denies Cough, Denies Shortness of Air Cardiovascular: Denies Chest Pain, Denies Edema Gastrointestinal: See HPI; Denies Abdomen Distended; Abdominal Pain; Denies Constipated; Diarrhea; Denies Nausea Genitourinary: Denies Burning, Denies Discharge Musculoskeletal: No back pain, No joint pain Skin: No pruritus, No rash Psychiatric/Neurological: Denies Headache, Denies Numbness, Denies Paresthesia Past Krepluk-Ufqfqv-Vyyhjg Hx Patient Social History Alcohol Use: Denies Use Number of Drinks Today: AA Alcohol Beverage of Choice: Beer Recreational Drug Use: No Drug of Choice: Marijuana Smoking Status: Former Smoker Type Used: Cigarettes Former Smoker, Quit: Jun 04, 2017 2nd Hand Smoke Exposure: No Recent Foreign Travel: No Contact w/Someone Who Travel: No Recent Infectious Disease Expo: No Recent Hopitalizations: No Immunizations Up To Date Tetanus Booster (TDap): Unknown PED Vaccines UTD: No Date of Pneumonia Vaccine: May 22, 2016 Date of Influenza Vaccine: Nov 11, 2018 Seasonal Allergies Seasonal Allergies: No Past Medical History Surgeries: Yes (LAP EVELIO, BACK SURGERY, FINGER; LITHOTRIPSY ) Cardiac, Gallbladder, Orthopedic, Renal Respiratory: Yes (C-PAP MACHINE) Sleep Apnea, COPD Currently Using CPAP: Yes Currently Using BIPAP: No Cardiac: Yes High Cholesterol, Hypertension Neurological: No Reproductive Disorders: No Sexually Transmitted Disease: No HIV/AIDS: No Genitourinary: Yes Kidney Stones, Renal Failure Gastrointestinal: Yes (S/P EVELIO; FATTY LIVER ON CT. ) Colitis, Gastroesophageal Reflux, Gall Bladder Disease Musculoskeletal: Yes Arthritis, Chronic Back Pain Endocrine: Yes (MORBID OBESITY) Diabetes, Non-Insulin dep HEENT: Yes (POOR DENTITION) Cancer: No Psychosocial: Yes (BIPOLAR, POLYSUBSTANCE ABUSE) Anxiety, Bipolar, Depression Integumentary: No Blood Disorders: No Adverse Reaction/Blood Tranf: No Family Medical History Completed stroke DVT 19 MOTHER, , Onset:Unknown Diabetes mellitus 19 MOTHER, , Onset:Unknown G8 BROTHER, Onset:Unknown FH: gastric ulcer 19 FATHER, Onset:Unknown No Pertinent Family Hx Physical Exam Vital Signs Vital Signs - First Documented 01/17/19 14:25 Temp 36.9 Pulse 87 Resp 18 B/P (MAP) 145/91 (109) Pulse Ox 99 Capillary Refill : Less Than 3 Seconds Height/Weight/BMI Height: 5'10.00" Weight: 330lbs. 3.0oz. [id number]; 48.00 BMI Method:Stated General Appearance: WD/WN, mild distress HEENT: PERRL/EOMI, pharynx normal Neck: non-tender, full range of motion, normal inspection Respiratory: chest non-tender, lungs clear, normal breath sounds, no respiratory distress, no accessory muscle use Cardiovascular: normal peripheral pulses, regular rate, rhythm Peripheral Pulses: 2+ Radial Pulses (R), 2+ Radial Pulses (L) Gastrointestinal: normal bowel sounds, soft, no organomegaly, tenderness (diffusely tender but especially in the epigastric region.), other (negative for mesenteric signs. Rovsing sign) Extremities: normal range of motion, non-tender Neurologic/Psychiatric: alert, oriented x 3 Skin: normal color, warm/dry Progress/Results/Core Measures Results/Orders Lab Results Laboratory Tests Test 01/17/19 14:30 Range/Units White Blood Count 7.8 4.3-11.0 10^3/uL Red Blood Count 4.97 4.35-5.85 10^6/uL Hemoglobin 15.5 13.3-17.7 G/DL Hematocrit 46 40-54 % Mean Corpuscular Volume 93 80-99 FL Mean Corpuscular Hemoglobin 31 25-34 PG Mean Corpuscular Hemoglobin Concent 34 32-36 G/DL Red Cell Distribution Width 14.9 H 10.0-14.5 % Platelet Count 178 130-400 10^3/uL Mean Platelet Volume 10.9 H 7.4-10.4 FL Neutrophils (%) (Auto) 67 42-75 % Lymphocytes (%) (Auto) 22 12-44 % Monocytes (%) (Auto) 7 0-12 % Eosinophils (%) (Auto) 3 0-10 % Basophils (%) (Auto) 1 0-10 % Neutrophils # (Auto) 5.2 1.8-7.8 X 10^3 Lymphocytes # (Auto) 1.7 1.0-4.0 X 10^3 Monocytes # (Auto) 0.6 0.0-1.0 X 10^3 Eosinophils # (Auto) 0.3 0.0-0.3 10^3/uL Basophils # (Auto) 0.1 0.0-0.1 10^3/uL Sodium Level 142 135-145 MMOL/L Potassium Level 3.4 L 3.6-5.0 MMOL/L Chloride Level 109 H 98-107 MMOL/L Carbon Dioxide Level 20 L 21-32 MMOL/L Anion Gap 13 5-14 MMOL/L Blood Urea Nitrogen 12 7-18 MG/DL Creatinine 1.75 H 0.60-1.30 MG/DL Estimat Glomerular Filtration Rate 42 BUN/Creatinine Ratio 7 Glucose Level 123 H 70-105 MG/DL Calcium Level 10.3 H 8.5-10.1 MG/DL Corrected Calcium 10.1 8.5-10.1 MG/DL Total Bilirubin 0.4 0.1-1.0 MG/DL Aspartate Amino Transf (AST/SGOT) 40 H 5-34 U/L Alanine Aminotransferase (ALT/SGPT) 48 0-55 U/L Alkaline Phosphatase 62 40-136 U/L C-Reactive Protein High Sensitivity 0.48 0.00-0.50 MG/DL Total Protein 7.0 6.4-8.2 GM/DL Albumin 4.3 3.2-4.5 GM/DL Lipase 47 8-78 U/L My Orders Orders - SALTY MENDEZ Ua Culture If Indicated (01/17/19 14:23) Drug Screen Stat (Urine) (01/17/19 14:23) Ed Iv/Invasive Line Start (01/17/19 14:28) Ns Iv 500 Ml (Sodium Chloride 0.9%) (01/17/19 14:28) Cbc With Automated Diff (01/17/19 14:28) Comprehensive Metabolic Panel (01/17/19 14:28) Hs C Reactive Protein (01/17/19 14:28) Lipase (01/17/19 14:28) Ketorolac Injection (Toradol Injection) (01/17/19 14:30) Lidocaine 2% Viscous 15 Ml (Xylocaine Vi (01/17/19 14:45) Famotidine Tablet (Pepcid Tablet) (01/17/19 14:31) Antacid Suspension (Mylanta Suspension (01/17/19 14:45) Ketorolac Injection (Toradol Injection) (01/17/19 14:35) Medications Given in ED Current Medications Medications Dose Ordered Sig/Saba Route Start Time Stop Time Status Last Admin Dose Admin Al Hydrox/Mg Hydrox/Simethicone 30 ml ONCE ONCE PO 01/17/19 14:45 01/17/19 14:46 DC 01/17/19 14:40 30 ML Ketorolac Tromethamine 30 mg STK-MED ONCE .ROUTE 01/17/19 14:35 01/17/19 14:38 DC 01/17/19 14:39 15 MG Lidocaine HCl 15 ml ONCE ONCE PO 01/17/19 14:45 01/17/19 14:46 DC 01/17/19 14:40 15 ML Sodium Chloride 500 ml @ 0 mls/hr Q0M ONCE IV 01/17/19 14:28 01/17/19 14:30 DC 01/17/19 14:40 0 MLS/HR Vital Signs/I&O 01/17/19 14:25 Temp 36.9 Pulse 87 Resp 18 B/P (MAP) 145/91 (109) Pulse Ox 99 Blood Pressure Mean: 109 POS Progress Progress Note #1: Time: 14:35 Progress Note Lipase looking for pancreatitis. We'll give him a GI cocktail to help us look at the gastrointestinal tract. Colitis seems unlikely since he has diffuse tenderness and diarrhea. We'll give him a small bolus of fluids and check some labs and if he has any evidence of inflammation or infection we'll get a CT of his abdomen and pelvis. Atypical coronary syndrome seems less likely since he had a Angiocath a year ago with only mild nonobstructing CAD. Progress Note #2: Time: 15:33 Progress Note Creatinine is stable. Labs are unremarkable. She drinks more water. We'll give him some Zofran and expected management for his belly ache. The GI cocktail made a significant improvement in his pain. Departure Impression Primary Impression: GERD (gastroesophageal reflux disease) Qualified Codes: K21.9 - Gastro-esophageal reflux disease without esophagitis Additional Impression: Gastroenteritis and colitis, viral Disposition: 01 HOME, SELF-CARE Condition: Stable Departure-Patient Inst. Decision time for Depature: 15:36 Referrals: ÁNGEL CASPER MD (PCP/Family) Primary Care Physician Patient Instructions: Viral Gastroenteritis, Acid Reflux (Gastroesophageal Reflux Disease) in Adults Add. 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 If you have nausea you can take one tablet of Zofran under the tongue every 6 hours as needed. Tylenol 1000 mg every 8 hours in addition to ibuprofen 800 mg every 8 hours as needed for belly pain. If you have intractable, severe abdominal pain or fever above 102F then please return to the nearest ER. Otherwise plan to follow up with your primary care doctor at your scheduled appointment on the . All discharge instructions reviewed with patient and/or family. Voiced understanding. Scripts Famotidine (Pepcid) 20 Mg Tablet 20 MG PO BID for 14 Days, #30 TAB 0 Refills Prov: SALTY MENDEZ 01/17/19 Ondansetron (Ondansetron Odt) 4 Mg Tab.rapdis 4 MG PO Q6H PRN for NAUSEA/VOMITING, #8 TAB 0 Refills Prov: SALTY MENDEZ 01/17/19 SALTY MENDEZ Jan 17, 2019 14:31 POS
[2019-01-17] MEDS ORDERED: KETOROLAC 30 MG/ML VIAL ONE (14:35)
[2019-01-17 14:42] LABS: BASOPHILS # (AUTO) 0.1 10^3/uL (0.0-0.1); BASOPHILS % (AUTO) 1 % (0-10); EOSINOPHILS # (AUTO) 0.3 10^3/uL (0.0-0.3); EOSINOPHILS % (AUTO) 3 % (0-10); HEMATOCRIT 46 % (40-54); HEMOGLOBIN 15.5 G/DL (13.3-17.7); LYMPHOCYTES # (AUTO) 1.7 X 10^3 (1.0-4.0); LYMPHOCYTES % (AUTO) 22 % (12-44); MEAN CORPUSCULAR HEMOGLOBIN 31 PG (25-34); MEAN CORPUSCULAR HGB CONC 34 G/DL (32-36); MEAN CORPUSCULAR VOLUME 93 FL (80-99); MEAN PLATELET VOLUME 10.9 FL (7.4-10.4); MONOCYTES # (AUTO) 0.6 X 10^3 (0.0-1.0); MONOCYTES % (AUTO) 7 % (0-12); NEUTROPHILS # (AUTO) 5.2 X 10^3 (1.8-7.8); NEUTROPHILS % (AUTO) 67 % (42-75); PLATELET COUNT 178 10^3/uL (130-400); RED CELL DISTRIBUTION WIDTH 14.9 % (10.0-14.5); WHITE BLOOD COUNT 7.8 10^3/uL (4.3-11.0)
[2019-01-17] MEDS ORDERED: ANTACID SUSP 30 ML UDC (MYLANTA) PO ONE (14:45)
[2019-01-17] MEDS ORDERED: LIDOCAINE 2% VISCOUS 15 ML UDC PO ONE (14:45)
[2019-01-17 15:02] LABS: ALBUMIN 4.3 GM/DL (3.2-4.5); BILIRUBIN,TOTAL 0.4 MG/DL (0.1-1.0); CALCIUM 10.3 MG/DL (8.5-10.1); CREATININE SERUM 1.75 MG/DL (0.60-1.30); POTASSIUM 3.4 MMOL/L (3.6-5.0)
[2019-01-17] MEDS ORDERED: ONDA4TAB11 PO (15:38)
[2019-01-17] MEDS ORDERED: FAMO-119 PO (15:38)
[2019-01-17 16:20] VITALS: BP 145/91
== END 2019-01-17 16:20 | disposition home or self-care (01) ==
LOC: EDUNIT# 14:21 → ER 14:22
DX: A08.4 Viral intestinal infection, unspecified (principal); K21.9 Gastro-esophageal reflux disease without esophagitis; I10 Essential (primary) hypertension; E11.9 Type 2 diabetes mellitus without complications; E78.5 Hyperlipidemia, unspecified; I25.10 Atherosclerotic heart disease of native coronary artery without angina pectoris; E78.00 Pure hypercholesterolemia, unspecified; E66.01 Morbid (severe) obesity due to excess calories; J44.9 Chronic obstructive pulmonary disease, unspecified; G47.30 Sleep apnea, unspecified; F41.9 Anxiety disorder, unspecified; F31.9 Bipolar disorder, unspecified; Z99.89 Dependence on other enabling machines and devices; Z87.442 Personal history of urinary calculi; Z95.9 Presence of cardiac and vascular implant and graft, unspecified; Z79.82 Long term (current) use of aspirin; Z87.891 Personal history of nicotine dependence; Z68.42 Body mass index [BMI] 45.0-49.9, adult
CPT/HCPCS: 36415; 80053; 83690; 85025; 86141

== ENCOUNTER 2019-02-06 21:22 | Emergency (ER) | payer MEDICAID ==
[~2019-02-06] VITALS: Ht 177.8 cm; Wt 155.3 kg
[~2019-02-06 21:22] MED LIST changes: -ARIP30TA10 PO; +ARIP30TA21 PO; +FAMO-119 PO; +ONDA4TAB11 PO; -TAMS0.4C98 PO; +TMSL.4C PO
[2019-02-06 22:08] LABS: BASOPHILS % (AUTO) 1 % (0-10); EOSINOPHILS # (AUTO) 0.3 10^3/uL (0.0-0.3); EOSINOPHILS % (AUTO) 3 % (0-10); HEMATOCRIT 41 % (40-54); HEMOGLOBIN 14.1 G/DL (13.3-17.7); LYMPHOCYTES # (AUTO) 2.1 X 10^3 (1.0-4.0); LYMPHOCYTES % (AUTO) 24 % (12-44); MEAN CORPUSCULAR HEMOGLOBIN 32 PG (25-34); MEAN CORPUSCULAR HGB CONC 34 G/DL (32-36); MEAN CORPUSCULAR VOLUME 93 FL (80-99); MEAN PLATELET VOLUME 9.6 FL (7.4-10.4); MONOCYTES # (AUTO) 0.7 X 10^3 (0.0-1.0); MONOCYTES % (AUTO) 8 % (0-12); NEUTROPHILS # (AUTO) 5.7 X 10^3 (1.8-7.8); NEUTROPHILS % (AUTO) 65 % (42-75); PLATELET COUNT 145 10^3/uL (130-400); RED CELL DISTRIBUTION WIDTH 14.3 % (10.0-14.5); WHITE BLOOD COUNT 8.8 10^3/uL (4.3-11.0)
[2019-02-06] MEDS ORDERED: HYDROcodone/APAP 10 MG/325 MG (LORTAB) TAB PO STA (22:20)
--- NOTE | 2019-02-06 22:27 | ED General ---
General Chief Complaint: Lower Extremity Stated Complaint: L LEG PAIN, SWELLING Source of Information: Patient Exam Limitations: No Limitations (FELICITY SCOTT,MED STUDENT) History of Present Illness Date Seen by Provider: Feb 06, 2019 Time Seen by Provider: 21:58 Initial Comments 48 yo M presents with intermittent crampy/throbbing left posterior thigh pain beginning two days ago. States pain onset after walking around while shopping and is worsened by rest and increased activity. Past medical history notable for chronic kidney disease and hypertension. One day ago began azithromycin started by Dr. Casper for bronchitis. Endorses shortness of breath and cough but attributes it to bronchitis. Denies fever, chills, headache, or chest pain. Timing/Duration: 2-3 Days Severity: Mild Modifying Factors: improves with Immobilization, improves with Movement Associated Systoms: No Chest Pain; Cough; No Fever/Chills, No Headaches, No Malaise, No Nausea/Vomiting; Shortness of Air (FELICITY SCOTT,MED STUDENT) Allergies and Home Medications Allergies Coded Allergies: No Known Drug Allergies (Unverified , 12/21/17) Home Medications Acetaminophen 500 Mg Tablet, 1,000 MG PO Q4H PRN for PAIN-MILD (1-4), (Reported) Albuterol Sulfate 1 Puff Puff, 2 PUFF IH Q4H PRN for SHORTNESS OF BREATH, (Reported) 1 PUFF = 90 MCG Allopurinol 100 Mg Tablet, 100 MG PO DAILY, (Reported) Aripiprazole 30 Mg Tablet, 30 MG PO DAILY, (Reported) Aspirin 81 Mg Tablet.dr, 81 MG PO DAILY, (Reported) Atorvastatin Calcium 40 Mg Tablet, 40 MG PO HS, (Reported) Benzonatate 100 Mg Capsule, 100 MG PO TID PRN for COUGH Prescribed by: BLANK ELIZABETH on 01/15/19 1140 Bupropion HCl 100 Mg Tablet, 100 MG PO 1200, (Reported) Bupropion HCl 100 Mg Tablet.er, 200 MG PO DAILY, (Reported) Famotidine 20 Mg Tablet, 20 MG PO BID, (Reported) Famotidine 20 Mg Tablet, 20 MG PO BID Prescribed by: SALTY MENDEZ on 01/17/19 1538 Fenofibrate Nanocrystallized 145 Mg Tablet, 145 MG PO HS, (Reported) Gabapentin 300 Mg Capsule, 300 MG PO BID, (Reported) Hydrochlorothiazide 25 Mg Tablet, 25 MG PO DAILY, (Reported) Hydrocodone/Acetaminophen 1 Each Tablet, 1 TAB PO Q6H PRN for PAIN-MODERATE (5- 7), (Reported) Hyoscyamine Sulfate 0.125 Mg Tablet, 0.125 MG PO QID, (Reported) L. Acidophilus/Bulgaricus 1 Each Tab.chew, 1 TAB PO DAILY, (Reported) Loperamide HCl 2 Mg Capsule, 2 MG PO QID PRN for LOOSE STOOLS, (Reported) Mesalamine 1.2 Gm Tablet.dr, 4.8 GM PO DAILY, (Reported) TAKES 4 (1.2GM) TABLETS Metoprolol Tartrate 50 Mg Tablet, 25 MG PO BID, (Reported) TAKES 1/2 (50MG) TABLET Multivitamin 1 Each Tablet, 1 TAB PO DAILY, (Reported) Nifedipine 30 Mg Tablet.er, 30 MG PO DAILY, (Reported) [place]-3 Acid Ethyl Esters 1 Gm Capsule, 2 GM PO 1200,2100, (Reported) TAKES 2 (1GM) CAPSULES Ondansetron 4 Mg Tab.rapdis, 4 MG PO Q6H PRN for NAUSEA/VOMITING Prescribed by: SALTY MENDEZ on 01/17/19 1538 Potassium Chloride 20 Meq Tab.er.prt, 40 MEQ PO BID, (Reported) TAKES 2 (20MEQ) TABLETS Ropinirole HCl 5 Mg Tablet, 5 MG PO 0800,1200,2100, (Reported) Solifenacin Succinate 5 Mg Tablet, 5 MG PO DAILY, (Reported) Sucralfate 1 Gm Tablet, 1 GM PO BID WITH MEALS, (Reported) Topiramate 200 Mg Tablet, 200 MG PO BID, (Reported) Patient Home Medication List Home Medication List Reviewed: Yes (FELICITY SCOTT,MED STUDENT) Home Medication List Reviewed: Yes (STAN CARREON MD) Review of Systems Review of Systems Constitutional: No chills, No diaphoresis, No fever, No malaise EENTM: No ear pain, No eye pain, No mouth pain, No nose pain, No throat pain Respiratory: cough; No hemoptysis; short of breath Cardiovascular: No chest pain, No palpitations Gastrointestinal: No abdominal pain, No constipation; diarrhea (his norm ); No dysphagia, No hematemesis, No melena, No nausea, No vomiting Genitourinary: No incontinence, No pain Musculoskeletal: No back pain, No joint pain; muscle cramps Skin: No lesions, No lumps, No rash Hematologic/Lymphatic: Denies Blood Clots, Denies Easy Bleeding (FELICITY SCOTT MED STUDENT) Past Lzoqhzp-Yswkhd-Iwzuap Hx Past Med/Social Hx: Reviewed Nursing Past Med/Soc Hx (STAN CARREON MD) Patient Social History Alcohol Use: Occasionally Uses Number of Drinks Today: AA Alcohol Beverage of Choice: Beer Recreational Drug Use: No Drug of Choice: Marijuana Type Used: Cigarettes Former Smoker, Quit: Jun 04, 2017 2nd Hand Smoke Exposure: No Recent Foreign Travel: No Contact w/Someone Who Travel: No Recent Hopitalizations: No Physical Abuse: No Sexual Abuse: No Mistreated: No Fear: No (FELICITY SCOTT MED STUDENT) Immunizations Up To Date Tetanus Booster (TDap): Unknown PED Vaccines UTD: No Date of Pneumonia Vaccine: May 22, 2016 Date of Influenza Vaccine: Nov 11, 2018 (FELICITY SCOTT MED STUDENT) Seasonal Allergies Seasonal Allergies: No (FELICITY SCOTT MED STUDENT) Past Medical History Surgeries: Yes (LAP EVELIO, BACK SURGERY, FINGER; LITHOTRIPSY ) Cardiac, Gallbladder, Orthopedic, Renal Respiratory: Yes (C-PAP MACHINE) Sleep Apnea, COPD Currently Using CPAP: Yes Currently Using BIPAP: No Cardiac: Yes High Cholesterol, Hypertension Neurological: No Reproductive Disorders: No Sexually Transmitted Disease: No HIV/AIDS: No Genitourinary: Yes Kidney Stones, Renal Failure Gastrointestinal: Yes (S/P EVELIO; FATTY LIVER ON CT. ) Colitis, Gastroesophageal Reflux, Gall Bladder Disease Musculoskeletal: Yes Arthritis, Chronic Back Pain Endocrine: Yes (MORBID OBESITY) Diabetes, Non-Insulin dep HEENT: Yes (POOR DENTITION) Cancer: No Psychosocial: Yes (BIPOLAR, POLYSUBSTANCE ABUSE) Anxiety, Bipolar, Depression Integumentary: No Blood Disorders: No Adverse Reaction/Blood Tranf: No (FELICITY SCOTT MED STUDENT) Surgeries: Yes (STAN CARREON MD) Family Medical History Reviewed Nursing Family Hx (STAN CARREON MD) Completed stroke DVT 19 MOTHER, , Onset:Unknown Diabetes mellitus 19 MOTHER, , Onset:Unknown G8 BROTHER, Onset:Unknown FH: gastric ulcer 19 FATHER, Onset:Unknown DVT/PE (mother), Diabetes (mother), GI Disease (father, gastric ulcer) (FELICITY SCOTT,[employer] STUDENT) Physical Exam Vital Signs Vital Signs - First Documented 02/06/19 21:35 Temp 36.1 Pulse 106 Resp 20 B/P (MAP) 122/99 (107) Pulse Ox 95 (STAN CARERON MD) Vital Signs Capillary Refill : (FELICITY SCOTT,[employer] STUDENT) Height, Weight, BMI Height: 5'10.00" Weight: 330lbs. 3.0oz. 149.407201kb; 48.00 BMI Method:Stated General Appearance: No Apparent Distress, WD/WN, Obese Eyes: Bilateral Eye Normal Inspection, Bilateral Eye PERRL, Bilateral Eye EOMI HEENT: TMs Normal, Normal ENT Inspection, Pharynx Normal Neck: Non Tender, Supple Respiratory: Chest Non Tender, Normal Breath Sounds, No Accessory Muscle Use, No Respiratory Distress, Wheezing (slight, lower R lobe ) Cardiovascular: Regular Rate, Rhythm, No Edema, No Gallop, No Murmur Back: No CVA Tenderness, No Vertebral Tenderness Extremity: Calf Tenderness; No Pedal Edema; Slow Capillary Refill (b/l LE ); No Swelling; Other (TTP L posterior thigh ) Neurologic/Psychiatric: Alert, Oriented x3 Skin: Normal Color, Warm/Dry (FELICITY SCOTT,[employer] STUDENT) General Appearance: No Apparent Distress, WD/WN Neck: Non Tender, Supple Respiratory: Normal Breath Sounds, No Accessory Muscle Use Cardiovascular: Regular Rate, Rhythm, No Edema Back: No CVA Tenderness, No Vertebral Tenderness Extremity: Other (TTP L posterior thigh . Tender along the tendon and hamstring muscles.) Neurologic/Psychiatric: Alert, Oriented x3 (STAN CARREON MD) Progress/Results/Core Measures Suspected Sepsis SIRS Temperature: Pulse: Respiratory Rate: Laboratory Tests 02/06/19 22:00: White Blood Count 8.8 Blood Pressure / Mean: Laboratory Tests 02/06/19 22:00: Platelet Count 145 (FELICITY SCOTT,MED STUDENT) Results/Orders Lab Results Laboratory Tests Test 02/06/19 22:00 Range/Units White Blood Count 8.8 4.3-11.0 10^3/uL Red Blood Count 4.45 4.35-5.85 10^6/uL Hemoglobin 14.1 13.3-17.7 G/DL Hematocrit 41 40-54 % Mean Corpuscular Volume 93 80-99 FL Mean Corpuscular Hemoglobin 32 25-34 PG Mean Corpuscular Hemoglobin Concent 34 32-36 G/DL Red Cell Distribution Width 14.3 10.0-14.5 % Platelet Count 145 130-400 10^3/uL Mean Platelet Volume 9.6 7.4-10.4 FL Neutrophils (%) (Auto) 65 42-75 % Lymphocytes (%) (Auto) 24 12-44 % Monocytes (%) (Auto) 8 0-12 % Eosinophils (%) (Auto) 3 0-10 % Basophils (%) (Auto) 1 0-10 % Neutrophils # (Auto) 5.7 1.8-7.8 X 10^3 Lymphocytes # (Auto) 2.1 1.0-4.0 X 10^3 Monocytes # (Auto) 0.7 0.0-1.0 X 10^3 Eosinophils # (Auto) 0.3 0.0-0.3 10^3/uL Basophils # (Auto) 0.0 0.0-0.1 10^3/uL D-Dimer 0.38 0.00-0.49 UG/ML Sodium Level 140 135-145 MMOL/L Potassium Level 3.2 L 3.6-5.0 MMOL/L Chloride Level 107 98-107 MMOL/L Carbon Dioxide Level 19 L 21-32 MMOL/L Anion Gap 14 5-14 MMOL/L Blood Urea Nitrogen 13 7-18 MG/DL Creatinine 1.81 H 0.60-1.30 MG/DL Estimat Glomerular Filtration Rate 40 BUN/Creatinine Ratio 7 Glucose Level 183 H 70-105 MG/DL Calcium Level 10.2 H 8.5-10.1 MG/DL Corrected Calcium 10.1 8.5-10.1 MG/DL Total Bilirubin 0.4 0.1-1.0 MG/DL Aspartate Amino Transf (AST/SGOT) 30 5-34 U/L Alanine Aminotransferase (ALT/SGPT) 44 0-55 U/L Alkaline Phosphatase 56 40-136 U/L Total Protein 6.6 6.4-8.2 GM/DL Albumin 4.1 3.2-4.5 GM/DL (STAN CARREON MD) My Orders Orders - STAN CARREON MD Cbc With Automated Diff (02/06/19 21:50) Comprehensive Metabolic Panel (02/06/19 21:50) Fibrin Degradation Products (02/06/19 21:50) Hydrocodone/Apap 10/325 Tablet (Lortab 1 (02/06/19 22:20) (STAN CARREON MD) Vital Signs/I&O 02/06/19 21:35 Temp 36.1 Pulse 106 Resp 20 B/P (MAP) 122/99 (107) Pulse Ox 95 (STAN CARREON MD) Vital Signs/I&O Capillary Refill : (FELICITY SCOTT,MED STUDENT) Progress Note : Time: 10:05 Progress Note Seen and evaluated by me. LE symmetrical in shape, color bilaterally. Pt stated that his L calf was tender to palpation but L posterior thigh pain was not reproducible with deep palpation. Given history of CKD, will evaluate for muscle cramps secondary to electrolyte abnormality. Will r/o DVT with d-dimer. 2237 D-dimer screening negative. CMP showed some hypokalemia, likely due to CKD, but otherwise no acute abnormalities. Dr. Carreon was able to reproduce pain with palpation of L hamstring. Likely muscle strain d/t increased activity. (FELICITY SCOTT,MED STUDENT) Progress Note : Progress Note I have seen and evaluated the patient and agree with above except as indicated. I have directed the plan of care. Patient is here with left posterior leg pain. States that he has been more active recently. We will check labs and try to rule out DVT. 2330: D-dimer negative. He did receive a hydrocodone 10/325 one tab by mouth. His last dose of that was last night. He is due to get new prescription from the clinics I will let them right that as he is on a pain contract. We did discuss topical medication as well as Tylenol as needed for pain. I do believe this is likely hamstring strain. Discharged home with return precautions. Patient family verbalized understanding instructions and agreement with plan. (STAN CARREON MD) Departure Impression Primary Impression: Left hamstring muscle strain Qualified Codes: S76.312A - Strain of muscle, fascia and tendon of the posterior muscle group at thigh level, left thigh, initial encounter Disposition: 01 HOME, SELF-CARE Condition: Stable Departure-Patient Inst. Decision time for Depature: 23:31 (STAN CARREON MD) Referrals: ÁNGEL CASPER MD (PCP/Family) Primary Care Physician Patient Instructions: Hamstring Muscle Strain (DC) Add. Discharge Instructions: All discharge instructions reviewed with patient and/or family. Voiced understanding. You may use topical icy hot with lidocaine or similar to the area of concern. You may use Rashard wrap as needed. You may use ice or heat to area concern as needed for comfort. You should follow up with your doctor on Friday as scheduled for recheck and further evaluation and for further prescription for pain as needed. Return for worse pain, swelling, weakness, breathing problems or other concerns as needed. FELICITY SCOTT,MED STUDENT Feb 06, 2019 22:26 STAN SANTOS MD Feb 06, 2019 23:33 POS
[2019-02-06 22:30] LABS: ALBUMIN 4.1 GM/DL (3.2-4.5); BILIRUBIN,TOTAL 0.4 MG/DL (0.1-1.0); CALCIUM 10.2 MG/DL (8.5-10.1); CREATININE SERUM 1.81 MG/DL (0.60-1.30); POTASSIUM 3.2 MMOL/L (3.6-5.0); TOTAL PROTEIN 6.6 GM/DL (6.4-8.2)
[2019-02-06 23:39] VITALS: BP 122/101
--- OUTSIDE RECORDS SUMMARY | 2019-03-04 15:30 | XMS REPORT | Clinical Summary ---
Author Author [facility] Organization [facility] Address Unknown Phone Unavailable Care Team Providers Care [facility] Name Role Phone Carey Boland RN Unavailable Unavailable Self, Referral PCP Unavailable Renny Eisenberg MD Unavailable Source Comments Some departments are not documenting in the electronic medical record. If you d o not see the information that you expected, contact Release of Information in [facility] [employer] Information Management department at [phone] for further assistan ce in locating additional records.[facility] Allergies No Known Allergies Medications End [...] mg PO tablet Take 325 mg 0 07/15 by mouth 1 daily. Active PV W-O [...] Years Used Current Every Day Smoker 1 Drinks/Week oz/Week Comments Alcohol Use No Sex Assigned at Date Recorded Not on file Industry Job Start Date Occupation Not on file Not on file Not on file Travel End Travel History Travel Start No recent travel history available. Last Filed Vital Signs Reading Time Taken Comments Vital Sign 111/65 07/20/2010 3:35 PM CDT Blood Pressure 98 07/20/2010 3:35 PM CDT Pulse 37.2 C (99 F) 10/18/2009 10:49 AM CDT Temperature - - Respiratory Rate 96% 07/20/2010 3:35 PM CDT Oxygen Saturation - - Inhaled Oxygen Concentration 161 kg (355 lb) 07/20/2010 2:05 PM CDT Weight - - Height - - Body Mass Index Plan of Treatment Health Maintenance Due Date Last Done Comments DTAP/TDAP VACCINES (1 - 1980 Tdap) HIV SCREENING 1984 PHYSICAL (COMPREHENSIVE) 11/07/1987 EXAM INFLUENZA VACCINE 10/01/2018 Results Not on filefrom Last 3 Months
--- OUTSIDE RECORDS SUMMARY | 2019-03-04 15:32 | XMS REPORT | Continuity of Care Document ---
Author Organization Unknown Address Unknown Phone Unavailable Allergies Active Description Code Type Severity Reaction Onset Reported/Identified Relationship to Patient Clinical Status Yes No known allergies Drug N/A N/A Yes No Known Drug Allergies [id number] Drug Allergy Unknown N/A 12/21/2017 Medications There is no data. Problems Date Dx Coded Attending Type Code Diagnosis Diagnosed By 01/01/2011 Ot 272.4 HYPE RLIPIDEMIA NEC/NOS 01/01/2011 Ot 278.00 OBE SITY, NOS 01/01/2011 Ot 296.80 BIP OLAR DISORDER, UNSPECIFIED 01/01/2011 Ot 305.1 TOBA SEO COORDINATOR USE DISORDER 01/01/2011 Ot 401.9 HYPE RTENSION NOS 01/01/2011 Ot 780.57 UNS PECIFIED SLEEP APNEA 01/01/[address] PAIN NEC 01/01/2011 Ot V58.66 GRACIE G-TERM (CURRENT) USE OF ASPIRIN 01/01/2011 Ot V58.69 OT MED,LT,CURRENT USE 01/01/2011 Ot V85.43 BOD Y MASS INDEX 50.0-59.9, ADULT 10/26/2011 Ot 295.90 CHELA IZOPHRENIA NOS-UNSPEC 10/26/2011 Ot 296.82 ATY PICAL DEPRESSIVE DIS 10/26/2011 Ot 882.0 OPEN WOUND OF HAND 10/26/2011 Ot E000.8 OTH ER EXTERNAL CAUSE STATUS 10/26/2011 Ot E849.0 ACC IDENT IN HOME 10/26/2011 Ot E956 ROMEO/S ELF-INJ BY CUT INST 10/26/2011 Ot V58.69 OT MED,LT,CURRENT USE 10/26/2011 Ot V62.84 ROMEO CIDAL IDEATION 09/04/2013 MAXIMO LENNON, DONN Hays Ot 592. 1 CALCULUS OF URETER 10/18/2013 KIT JOHNSON DO [...] INTERVERTEBRAL DISC DISORDERS W RADICULO 09/30/2015 LOGAN SENLL APRN Ot F17.210 NICOTINE DEPENDENCE, CIGARETTES, UNCOMPL 09/30/2015 LOGAN SNELL APRN Ot K02 .9 DENTAL CARIES, UNSPECIFIED 09/30/2015 LOGAN SNELL APRN Ot K08 .8 OTHER SPECIFIED DISORDERS OF TEETH AND S 10/02/2015 LOGAN SNELL APRN Ot K02 .9 DENTAL CARIES, UNSPECIFIED 10/02/2015 LOGAN SNELL APRN Ot K08 .8 OTHER SPECIFIED DISORDERS OF TEETH AND S 10/02/2015 LOGAN SNELL APRN Ot F17.210 NICOTINE DEPENDENCE, CIGARETTES, UNCOMPL 10/02/2015 LOGAN SNELL APRN Ot K02 .9 DENTAL CARIES, UNSPECIFIED 10/02/2015 LOGAN SNELL APRN Ot K08 .8 OTHER SPECIFIED DISORDERS OF TEETH AND S 10/06/2015 LOGAN SNELL APRN Ot F17.210 NICOTINE DEPENDENCE, CIGARETTES, UNCOMPL 10/06/2015 LOGAN SNELL APRN Ot K02 .9 DENTAL CARIES, UNSPECIFIED 10/06/2015 LOGAN SNELL APRN Ot K08 .8 OTHER SPECIFIED DISORDERS OF TEETH AND S 10/07/2015 LOGAN SNELL APRN Ot F17.210 NICOTINE DEPENDENCE, CIGARETTES, UNCOMPL 10/07/2015 LOGAN SNELL APRN Ot K76 .0 FATTY (CHANGE OF) LIVER, NOT ELSEWHERE C 10/07/2015 LOGNA SNELL APRN Ot R06.02 SHORTNESS OF BREATH 10/07/2015 LOGAN SNELL APRN Ot R07 .9 CHEST PAIN, UNSPECIFIED 10/09/2015 LOGAN SNELL APRN Ot F17.210 NICOTINE DEPENDENCE, CIGARETTES, UNCOMPL 10/09/2015 LOGAN SNELL APRN Ot K76 .0 FATTY (CHANGE OF) LIVER, NOT ELSEWHERE C 10/09/2015 LOGAN SNELL APRN Ot R06.02 SHORTNESS OF BREATH 10/09/2015 LOGAN SNELL APRN Ot R07 .9 CHEST PAIN, UNSPECIFIED 10/10/2015 LOGAN SNELL APRN Ot F17.210 NICOTINE DEPENDENCE, CIGARETTES, UNCOMPL 10/10/2015 LOGAN SNELL APRN Ot K76 .0 FATTY (CHANGE OF) LIVER, NOT ELSEWHERE C 10/10/2015 LOGAN SNELL APRN Ot R06.02 SHORTNESS OF BREATH 10/10/2015 LOGAN SNELL APRN Ot R07 .9 CHEST PAIN, UNSPECIFIED 12/11/2015 KIT JOHNSON DO [...] OF KIDNEY 01/26/2016 LINO GONZALES MD Ot 789.0 3 ABDOMINAL PAIN, RIGHT LOWER QUADRANT 01/26/2016 LINO GONZALES MD Ot 793.5 NOSP (ABN) FINDINGS ON RADIOLOGICAL OT 01/26/2016 LINO GONZALES MD Ot 592.0 CALCULUS OF KIDNEY 01/26/2016 LINO GONZALES MD Ot V72.8 4 EXAM PRE-OPERATIVE NOS 01/26/2016 LINO GONZALES MD [...] DIANE DO, KRISTIAN K Ot Z79.899 OTHER ASSISTED (CURRENT) DRUG THERAPY 01/29/2016 DIANE DO, KRISTIAN [...] DIANE DO, KRISTIAN K Ot Z79.899 OTHER CLICKER OPERATOR (CURRENT) DRUG THERAPY 01/30/2016 DIANE DO, KRISTIAN [...] DIANE DO, KRISTIAN K Ot Z79.899 OTHER ASSISTED (CURRENT) DRUG THERAPY 05/28/2016 NITHIN HALL Ot F17.210 NICOTINE DEPENDENCE, CIGARETTES, UNCOMPL 05/28/2016 NITHIN HALL Ot I 10 ESSENTIAL (PRIMARY) HYPERTENSION 05/28/2016 NITHIN HALL Ot K40.90 UNIL INGUINAL HERNIA, W/O OBST OR GANGR, 05/28/2016 NITHIN HALL Ot N20.0 CALCULUS OF KIDNEY 05/28/2016 NITHIN HALL Ot N39.0 URINARY TRACT INFECTION, SITE NOT SPECIF 05/28/2016 NITHIN HALL Ot R10.31 RIGHT LOWER QUADRANT PAIN 05/28/2016 NITHIN HALL Ot Z79.899 OTHER CLICKER OPERATOR (CURRENT) DRUG THERAPY 05/29/2016 NITHIN HALL Ot F17.210 NICOTINE DEPENDENCE, CIGARETTES, UNCOMPL 05/29/2016 NITHIN HALL L Ot I 10 ESSENTIAL (PRIMARY) HYPERTENSION 05/29/2016 NITHIN HALL L Ot K40.90 UNIL INGUINAL HERNIA, W/O OBST OR GANGR, 05/29/2016 NITHIN HALL Ot N20.0 CALCULUS OF KIDNEY 05/29/2016 NITHIN HALL Ot N39.0 URINARY TRACT INFECTION, SITE NOT SPECIF 05/29/2016 NITHIN HALL Ot R10.31 RIGHT LOWER QUADRANT PAIN 05/29/2016 NITHIN HALL Ot Z79.899 OTHER CLICKER OPERATOR (CURRENT) DRUG THERAPY 05/30/2016 NITHIN HALL Ot F17.210 NICOTINE DEPENDENCE, CIGARETTES, UNCOMPL 05/30/2016 NITHIN HALL L Ot I 10 ESSENTIAL (PRIMARY) HYPERTENSION 05/30/2016 NITHIN HALL L Ot K40.90 UNIL INGUINAL HERNIA, W/O OBST OR GANGR, 05/30/2016 NITHIN HALL Ot N20.0 CALCULUS OF KIDNEY 05/30/2016 NITHIN HALL Ot N39.0 URINARY TRACT INFECTION, SITE NOT SPECIF 05/30/2016 NITHIN HALL Ot R10.31 RIGHT LOWER QUADRANT PAIN 05/30/2016 NITHIN HALL Ot Z79.899 OTHER ASSISTED (CURRENT) DRUG THERAPY 06/03/2016 NITHIN HALL Ot F17.210 NICOTINE DEPENDENCE, CIGARETTES, UNCOMPL 06/03/2016 NITHIN HALL L Ot I 10 ESSENTIAL (PRIMARY) HYPERTENSION 06/03/2016 NITHIN HALL L Ot K40.90 UNIL INGUINAL HERNIA, W/O OBST OR GANGR, 06/03/2016 NITHIN HALL L Ot N20.0 CALCULUS OF KIDNEY 06/03/2016 NITHIN HALL L Ot N39.0 URINARY TRACT INFECTION, SITE NOT SPECIF 06/03/2016 NITHIN HALL L Ot R10.31 RIGHT LOWER QUADRANT PAIN 06/03/2016 NITHIN HALL L Ot Z79.899 OTHER ASSISTED (CURRENT) DRUG THERAPY 10/12/2016 NITHIN HALL Ot E78.00 PURE HYPERCHOLESTEROLEMIA, UNSPECIFIED 10/12/2016 NITHIN HALL Ot F17.210 NICOTINE DEPENDENCE, CIGARETTES, UNCOMPL 10/12/2016 NITHIN HALL Ot F31.9 BIPOLAR DISORDER, UNSPECIFIED 10/12/2016 NITHIN HALL Ot F41.9 ANXIETY DISORDER, UNSPECIFIED 10/12/2016 NITHIN HALL Ot G47.30 SLEEP APNEA, UNSPECIFIED 10/12/2016 NITHIN HALL Ot G89.29 OTHER CHRONIC PAIN 10/12/2016 NITHIN HALL Ot I 10 ESSENTIAL (PRIMARY) HYPERTENSION 10/12/2016 NITHIN HALL Ot [...] SPECIFIED PART 10/13/2016 SALTY MENDEZ MD Ot E78. 00 PURE HYPERCHOLESTEROLEMIA, UNSPECIFIED 10/13/2016 SALTY MENDEZ MD Ot F17.210 NICOTINE DEPENDENCE, CIGARETTES, UNCOMPL 10/13/2016 SALTY MENDEZ MD Ot F31. 9 BIPOLAR DISORDER, UNSPECIFIED 10/13/2016 SALTY MENDEZ MD Ot F41. 9 ANXIETY DISORDER, UNSPECIFIED 10/13/2016 SALTY MENDEZ MD Ot G47. 30 SLEEP APNEA, UNSPECIFIED 10/13/2016 SALTY MENDEZ MD Ot G89. 29 OTHER CHRONIC PAIN 10/13/2016 SALTY MENDEZ MD Ot I10 ESSENTIAL (PRIMARY) HYPERTENSION 10/13/2016 SALTY MENDEZ MD Ot J44. 9 CHRONIC OBSTRUCTIVE PULMONARY DISEASE, U 10/13/2016 SALTY MENDEZ MD Ot K05. 6 PERIODONTAL DISEASE, UNSPECIFIED 10/13/2016 SALTY MENDEZ MD Ot K21. 9 GASTRO-ESOPHAGEAL REFLUX DISEASE WITHOUT 10/13/2016 SALTY MENDEZ MD Ot M19. 90 UNSPECIFIED OSTEOARTHRITIS, UNSPECIFIED 10/13/2016 SALTY MENDEZ MD Ot M54. 9 DORSALGIA, UNSPECIFIED 10/13/2016 SALTY MENDEZ MD Ot N39. 0 URINARY TRACT INFECTION, SITE NOT SPECIF 10/13/2016 SALTY MENDEZ MD Ot R50. 9 FEVER, UNSPECIFIED 10/13/2016 SALTY MENDEZ MD Ot Z87. 19 PERSONAL HISTORY OF OTHER DISEASES OF TH 10/13/2016 SALTY MENDEZ MD Ot Z87.442 PERSONAL HISTORY OF URINARY CALCULI 10/13/2016 SALTY MENDEZ MD Ot Z90. 49 ACQUIRED ABSENCE OF OTHER SPECIFIED PART 10/14/2016 SALTY MENDEZ MD Ot E78. 00 PURE HYPERCHOLESTEROLEMIA, UNSPECIFIED 10/14/2016 SALTY MENDEZ MD Ot F17.210 NICOTINE DEPENDENCE, CIGARETTES, UNCOMPL 10/14/2016 SALTY MENDEZ MD Ot F31. 9 BIPOLAR DISORDER, UNSPECIFIED 10/14/2016 SALTY MENDEZ MD Ot F41. 9 ANXIETY DISORDER, UNSPECIFIED 10/14/2016 SALTY MENDEZ MD Ot G47. 30 SLEEP APNEA, UNSPECIFIED 10/14/2016 SALTY MENDEZ MD Ot G89. 29 OTHER CHRONIC PAIN 10/14/2016 SALTY MENDEZ MD Ot I10 ESSENTIAL (PRIMARY) HYPERTENSION 10/14/2016 SALTY MENDEZ MD Ot J44. 9 CHRONIC OBSTRUCTIVE PULMONARY DISEASE, U 10/14/2016 SALTY MENDEZ MD Ot K05. 6 PERIODONTAL DISEASE, UNSPECIFIED 10/14/2016 SALYT MENDEZ MD Ot K21. 9 GASTRO-ESOPHAGEAL REFLUX DISEASE WITHOUT 10/14/2016 SALTY MENDEZ MD Ot M19. 90 UNSPECIFIED OSTEOARTHRITIS, UNSPECIFIED 10/14/2016 SALTY MENDEZ MD Ot M54. 9 DORSALGIA, UNSPECIFIED 10/14/2016 SALTY MENDEZ MD Ot N39. 0 URINARY TRACT INFECTION, SITE NOT SPECIF 10/14/2016 SALTY MENDEZ MD Ot R50. 9 FEVER, UNSPECIFIED 10/14/2016 SALTY MENDEZ MD Ot Z87. 19 PERSONAL HISTORY OF OTHER DISEASES OF 10/14/2016 SALTY MENDEZ MD Ot Z87.442 PERSONAL HISTORY OF URINARY CALCULI 10/14/2016 SALTY MENDEZ MD Ot Z90. 49 ACQUIRED ABSENCE OF OTHER SPECIFIED PART 10/16/2016 LOGAN SNELL APRN Ot E78.00 PURE HYPERCHOLESTEROLEMIA, UNSPECIFIED 10/16/2016 LOGAN SNELL APRN Ot F31 .9 BIPOLAR DISORDER, UNSPECIFIED 10/16/2016 LOGAN SNELL APRN Ot F41 .9 ANXIETY DISORDER, UNSPECIFIED 10/16/2016 LOGAN SNELL APRN Ot G47.30 SLEEP APNEA, UNSPECIFIED 10/16/2016 LOGAN SNELL APRN Ot G89.29 OTHER CHRONIC PAIN 10/16/2016 LOGAN SNELL APRN Ot I10 ESSENTIAL (PRIMARY) HYPERTENSION 10/16/2016 LOGAN SNELL APRN Ot J20 .9 ACUTE BRONCHITIS, UNSPECIFIED 10/16/2016 LOGAN SNELL APRN Ot J44 .0 CHRONIC OBSTRUCTIVE PULMON DISEASE W ACU 10/16/2016 LOGAN SNELL APRN Ot M19.90 UNSPECIFIED OSTEOARTHRITIS, UNSPECIFIED 10/16/2016 LOGAN SNELL APRN Ot M54 .9 DORSALGIA, UNSPECIFIED 10/16/2016 LOGAN SNELL APRN Ot R42 DIZZINESS AND GIDDINESS 10/16/2016 LOGAN SNELL APRN Ot Z87.19 PERSONAL HISTORY OF OTHER DISEASES OF 10/16/2016 LOGAN SNELL APRN Ot Z87.442 PERSONAL HISTORY OF URINARY CALCULI 10/16/2016 LOGAN SNELL APRN Ot Z90.49 ACQUIRED ABSENCE OF OTHER SPECIFIED PART 10/18/2016 LOGAN SNELL APRN Ot E78.00 PURE HYPERCHOLESTEROLEMIA, UNSPECIFIED 10/18/2016 LOGAN SNELL APRN Ot F31 .9 BIPOLAR DISORDER, UNSPECIFIED 10/18/2016 LOGAN SNELL APRN Ot F41 .9 ANXIETY DISORDER, UNSPECIFIED 10/18/2016 LOGAN SNELL APRN Ot G47.30 SLEEP APNEA, UNSPECIFIED 10/18/2016 LOGAN SNELL APRN Ot G89.29 OTHER CHRONIC PAIN 10/18/2016 LOGAN SNELL [employer]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 Ot I10 ESSENTIAL (PRIMARY) HYPERTENSION 10/18/2016 LOGAN SNELL APRN Ot J20 .9 ACUTE BRONCHITIS, UNSPECIFIED 10/18/2016 LOGAN SNELL APRN Ot J44 .0 CHRONIC OBSTRUCTIVE PULMON DISEASE W ACU 10/18/2016 LOGAN SNELL APRN Ot M19.90 UNSPECIFIED OSTEOARTHRITIS, UNSPECIFIED 10/18/2016 LOGAN SNELL APRN Ot M54 .9 DORSALGIA, UNSPECIFIED 10/18/2016 LOGAN SNELL [employer]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.] Ot R07.9 CHEST PAIN, UNSPECIFIED 03/24/2017 DIANE KRISTIAN K Ot Z87.440 PERSONAL HISTORY OF URINARY (TRACT) INFE 04/27/2017 DIANE KRISTIAN K Ot E66.01 MORBID (SEVERE) OBESITY DUE TO EXCESS CA 04/27/2017 DIANE DO KRISTIAN K Ot E78.00 PURE HYPERCHOLESTEROLEMIA, UNSPECIFIED 04/27/2017 DIANE DO, KRISTIAN K Ot F14.10 COCAINE ABUSE, UNCOMPLICATED 04/27/2017 DIANE DO, KRISTIAN K Ot F17.210 NICOTINE DEPENDENCE, CIGARETTES, UNCOMPL 04/27/2017 DIANE DO KRISTIAN K Ot F31.9 BIPOLAR DISORDER, UNSPECIFIED 04/27/2017 DIANE DO, KRISTIAN K Ot F41.9 ANXIETY DISORDER, UNSPECIFIED 04/27/2017 DIANE DO KRISTIAN K Ot G47.30 SLEEP APNEA, UNSPECIFIED 04/27/2017 DIANE DO, KRISTIAN K Ot I10 ESSENTIAL (PRIMARY) HYPERTENSION 04/27/2017 DIANE KRISTIAN K Ot J44.9 CHRONIC OBSTRUCTIVE PULMONARY DISEASE, U 04/27/2017 DIANE KRISTIAN K Ot K21.9 GASTRO-ESOPHAGEAL REFLUX DISEASE WITHOUT 04/27/2017 DIANE DO KRISTIAN K Ot R07.89 OTHER CHEST PAIN 04/27/2017 DIANE KRISTIAN K Ot Z68.43 BODY MASS INDEX (BMI) 50-59.9 , ADULT 04/27/2017 DIANE KRISTIAN K Ot Z79.52 CLICKER OPERATOR (CURRENT) USE OF SYSTEMIC STER 04/27/2017 DIANE KRISTIAN K Ot Z87.442 PERSONAL HISTORY OF URINARY CALCULI 04/27/2017 DIANE KRISTIAN K Ot Z87.448 PERSONAL HISTORY OF OTHER DISEASES OF UR 04/27/2017 JANET LENNON, LINO Hays Ot 592.0 CALCULUS OF KIDNEY 04/27/2017 JANET LENNON, LINO Hays Ot 592.0 CALCULUS OF KIDNEY 04/27/2017 JANET LENNON, LINO Hays Ot 789.0 3 ABDOMINAL PAIN, RIGHT LOWER QUADRANT 04/27/2017 JANET LENNON, LINO Hays Ot 793.5 NOSP (ABN) FINDINGS ON RADIOLOGICAL OT 04/27/2017 JANET LENNON, LINO Hays Ot 592.0 CALCULUS OF KIDNEY 04/27/2017 JANET ELNNON, LINO Hays Ot V72.8 4 EXAM PRE-OPERATIVE NOS 04/27/2017 JANET LENNON, LINO Hays Ot 592.9 URINARY CALCULUS NOS 04/28/2017 JANET LENNON, LINO Hays Ot 592.0 CALCULUS OF KIDNEY 04/28/2017 JANET LENNON, LINO A Ot 592.0 CALCULUS OF KIDNEY 04/28/2017 JANET LENNON, LINO Hays Ot 789.0 3 ABDOMINAL PAIN, RIGHT LOWER QUADRANT 04/28/2017 JANET LENNON, LINO Hays Ot 793.5 NOSP (ABN) FINDINGS ON RADIOLOGICAL OT 04/28/2017 JANET LENNON, LINO Hays Ot 592.0 CALCULUS OF KIDNEY 04/28/2017 JANET LENNON, LINO Hays Ot V72.8 4 EXAM PRE-OPERATIVE NOS 04/28/2017 JANET LENNON, LINO Hays Ot 592.9 URINARY CALCULUS NOS 04/29/2017 DIANE ALMEIDA KRISTIAN K Ot E66.01 MORBID (SEVERE) OBESITY DUE TO EXCESS CA 04/29/2017 ALCIDES CONTRERAS DOA K Ot E78.00 PURE HYPERCHOLESTEROLEMIA, UNSPECIFIED 04/29/2017 DIANE DO KRISTIAN K Ot F14.10 COCAINE ABUSE, UNCOMPLICATED 04/29/2017 DIANE DO KRISTIAN K Ot F17.210 NICOTINE DEPENDENCE, CIGARETTES, UNCOMPL 04/29/2017 ALCIDES CONTRERAS DOA K Ot F31.9 BIPOLAR DISORDER, UNSPECIFIED 04/29/2017 DIANE DO KRISTIAN K Ot F41.9 ANXIETY DISORDER, UNSPECIFIED 04/29/2017 DIANE DO KRISTIAN K Ot G47.30 SLEEP APNEA, UNSPECIFIED 04/29/2017 DIANE ALMEIDA KRISTIAN K Ot I10 ESSENTIAL (PRIMARY) HYPERTENSION 04/29/2017 DIANE ALMEIDA KRISTIAN K Ot J44.9 CHRONIC OBSTRUCTIVE PULMONARY DISEASE, U 04/29/2017 DIANE DO KRISTIAN K Ot K21.9 GASTRO-ESOPHAGEAL REFLUX DISEASE WITHOUT 04/29/2017 DIANEManuel ALMEIDA KRISTIAN K Ot R07.89 OTHER CHEST PAIN 04/29/2017 DIANE ALMEIDA KRISTIAN Lara Ot Z68.43 BODY MASS INDEX (BMI) 50-59.9 , ADULT 04/29/2017 KRISTIAN CONTRERAS DO Ot Z79.52 ASSISTED (CURRENT) USE OF SYSTEMIC STER 04/29/2017 KRISTIAN CONTRERAS DO Ot Z87.442 PERSONAL HISTORY OF URINARY CALCULI 04/29/2017 KRISTIAN CONTRERAS DO Ot Z87.448 PERSONAL HISTORY OF OTHER DISEASES OF UR 04/29/2017 SOL RUBIO MD (DDU) Ot Z02.71 ENCOUNTER FOR DISABILITY DETERMINATION 05/04/2017 SOL RUBIO MD (DDU) Ot Z02.71 ENCOUNTER FOR DISABILITY DETERMINATION 07/02/2017 SOL RUBIO MD (DDU) Ot Z02.71 ENCOUNTER FOR DISABILITY DETERMINATION 07/04/2017 TAMIR CORONA MD, Ot E11 .9 TYPE 2 DIABETES MELLITUS WITHOUT COMPLIC 07/04/2017 TAMIR CORONA MD Ot E66.01 MORBID (SEVERE) OBESITY DUE TO EXCESS CA 07/04/2017 TAMIR CORONA MD Ot E78 .5 HYPERLIPIDEMIA, UNSPECIFIED 07/04/2017 TAMIR CORONA MD Ot F17.210 NICOTINE DEPENDENCE, CIGARETTES, UNCOMPL 07/04/2017 TAMIR CORONA MD Ot I10 ESSENTIAL (PRIMARY) HYPERTENSION 07/04/2017 TAMIR CORONA MD Ot I25.119 ATHSCL HEART DISEASE OF [place]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 07/04/2017 TAMIR CORONA MD Ot J44 .9 CHRONIC OBSTRUCTIVE PULMONARY DISEASE, U 07/04/2017 TAMIR CORONA MD Ot N17 .9 ACUTE KIDNEY FAILURE, UNSPECIFIED 07/04/2017 TAMIR CORONA MD Ot Z68.43 BODY MASS INDEX (BMI) 50-59.9 , ADULT 07/04/2017 TAMIR CORONA MD Ot E11 .9 TYPE 2 DIABETES MELLITUS WITHOUT COMPLIC 07/04/2017 TAMIR CORONA MD Ot E66.01 MORBID (SEVERE) OBESITY DUE TO EXCESS CA 07/04/2017 TAMIR CORONA MD Ot E78 .5 HYPERLIPIDEMIA, UNSPECIFIED 07/04/2017 TAMIR CORONA MD Ot F17.210 NICOTINE DEPENDENCE, CIGARETTES, UNCOMPL 07/04/2017 ODGERS MD, TAMIR K Ot I10 ESSENTIAL (PRIMARY) HYPERTENSION 07/04/2017 TAMIR CORONA MD Ot I25.119 ATHSCL HEART DISEASE OF [place]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 07/04/2017 TAMIR CORONA MD Ot J44 .9 CHRONIC OBSTRUCTIVE PULMONARY DISEASE, U 07/04/2017 TAMIR CORONA MD Ot N17 .9 ACUTE KIDNEY FAILURE, UNSPECIFIED 07/04/2017 TAMIR CORONA MD Ot Z68.43 BODY MASS INDEX (BMI) 50-59.9 , ADULT 07/08/2017 SOL RUBIO MD (DDU) Ot Z02.71 ENCOUNTER FOR DISABILITY DETERMINATION 07/13/2017 STAN CRAREON MD Ot E11.9 TYPE 2 DIABETES MELLITUS WITHOUT COMPLIC 07/13/2017 STAN CARREON MD, Ot E66.01 MORBID (SEVERE) OBESITY DUE TO EXCESS CA 07/13/2017 STAN CARREON MD Ot E78.00 PURE HYPERCHOLESTEROLEMIA, UNSPECIFIED 07/13/2017 STAN CARREON MD Ot F17.210 NICOTINE DEPENDENCE, CIGARETTES, UNCOMPL 07/13/2017 STAN CARREON MD, Ot F31.9 BIPOLAR DISORDER, UNSPECIFIED 07/13/2017 STAN CARREON MD, Ot F41.9 ANXIETY DISORDER, UNSPECIFIED 07/13/2017 STAN CARREON MD Ot G47.30 SLEEP APNEA, UNSPECIFIED 07/13/2017 STAN CARREON MD Ot I10 ESSENTIAL (PRIMARY) HYPERTENSION 07/13/2017 STAN CARREON MD, Ot J44.9 CHRONIC OBSTRUCTIVE PULMONARY DISEASE, U 07/13/2017 STAN CARREON MD, Ot K21.9 GASTRO-ESOPHAGEAL REFLUX DISEASE WITHOUT 07/13/2017 STAN CARREON MD Ot R07.9 CHEST PAIN, UNSPECIFIED 07/13/2017 STAN CARREON MD Ot R10.13 EPIGASTRIC PAIN 07/13/2017 STAN CARREON MD, Ot R19.7 DIARRHEA, UNSPECIFIED 07/13/2017 STAN CARREON MD Ot Z68.43 BODY MASS INDEX (BMI) 50-59.9 , ADULT 07/13/2017 STAN CARREON MD Ot Z79.51 ASSISTED (CURRENT) USE OF INHALED STERO 07/13/2017 STAN CARREON MD, Ot Z79.82 CLICKER OPERATOR (CURRENT) USE OF ASPIRIN 07/13/2017 STAN CARREON MD, Ot Z79.84 CLICKER OPERATOR (CURRENT) USE OF ORAL HYPOGLYC 07/13/2017 STAN CARREON MD, Ot Z87.19 PERSONAL HISTORY OF OTHER DISEASES OF TH 07/13/2017 STAN CARREON MD, Ot Z87.442 PERSONAL HISTORY OF URINARY CALCULI 07/13/2017 STAN CARREON MD, Ot Z98.84 BARIATRIC SURGERY STATUS 07/14/2017 STAN CARREON MD, Ot E11.9 TYPE 2 DIABETES MELLITUS WITHOUT COMPLIC 07/14/2017 STAN CARREON MD, Ot E66.01 MORBID (SEVERE) OBESITY DUE TO EXCESS CA 07/14/2017 STAN CARREON MD, Ot E78.00 PURE HYPERCHOLESTEROLEMIA, UNSPECIFIED 07/14/2017 STAN CARREON MD Ot F17.210 NICOTINE DEPENDENCE, CIGARETTES, UNCOMPL 07/14/2017 STAN CARREON MD, Ot F31.9 BIPOLAR DISORDER, UNSPECIFIED 07/14/2017 STAN CARREON MD, Ot F41.9 ANXIETY DISORDER, UNSPECIFIED 07/14/2017 STAN CARREON MD, Ot G47.30 SLEEP APNEA, UNSPECIFIED 07/14/2017 STAN CARREON MD, Ot I10 ESSENTIAL (PRIMARY) HYPERTENSION 07/14/2017 STAN CARREON MD, Ot J44.9 CHRONIC OBSTRUCTIVE PULMONARY DISEASE, U 07/14/2017 STAN CARREON MD, Ot K21.9 GASTRO-ESOPHAGEAL REFLUX DISEASE WITHOUT 07/14/2017 STAN CARREON MD Ot R07.9 CHEST PAIN, UNSPECIFIED 07/14/2017 STAN CARREON MD Ot R10.13 EPIGASTRIC PAIN 07/14/2017 STAN CARREON MD, Ot R19.7 DIARRHEA, UNSPECIFIED 07/14/2017 STAN CARREON MD, Ot Z68.43 BODY MASS INDEX (BMI) 50-59.9 , ADULT 07/14/2017 STAN CARREON MD, Ot Z79.51 ASSISTED (CURRENT) USE OF INHALED STERO 07/14/2017 STAN CARREON MD, Ot Z79.82 ASSISTED (CURRENT) USE OF ASPIRIN 07/14/2017 STAN CARREON MD, Ot Z79.84 ASSISTED (CURRENT) USE OF ORAL HYPOGLYC 07/14/2017 STAN CARREON MD, Ot Z87.19 PERSONAL HISTORY OF OTHER DISEASES OF TH 07/14/2017 STAN CARREON MD, Ot Z87.442 PERSONAL HISTORY OF URINARY CALCULI 07/14/2017 STAN CARREON MD, Ot Z98.84 BARIATRIC SURGERY STATUS 07/20/2017 TAMIR CORONA MD Ot R20 .8 OTHER DISTURBANCES OF SKIN SENSATION 07/20/2017 TAMIR CORONA MD Ot R42 DIZZINESS AND GIDDINESS 07/22/2017 TAMIR CORONA MD Ot R20 .8 OTHER DISTURBANCES OF SKIN SENSATION 07/22/2017 TAMIR CORONA MD Ot R42 DIZZINESS AND GIDDINESS 07/22/2017 TAMIR CORONA MD Ot R20 .8 OTHER DISTURBANCES OF SKIN SENSATION 07/22/2017 TAMIR CORONA MD Ot R42 DIZZINESS AND GIDDINESS 07/31/2017 JOANNE LENNON, SOL Hays ([facility]) Ot Z02.71 ENCOUNTER FOR DISABILITY DETERMINATION 08/20/2017 LOGAN SNELL APRN Ot E11 .9 TYPE 2 DIABETES MELLITUS WITHOUT COMPLIC 08/20/2017 LOGAN SNELL APRN Ot E66.01 MORBID (SEVERE) OBESITY DUE TO EXCESS CA 08/20/2017 LOGAN SNELL APRN Ot E78.00 PURE HYPERCHOLESTEROLEMIA, UNSPECIFIED 08/20/2017 LOGAN SNELL APRN Ot F31 .9 BIPOLAR DISORDER, UNSPECIFIED 08/20/2017 LOGAN SNELL APRN Ot F41 .9 ANXIETY DISORDER, UNSPECIFIED 08/20/2017 LOGAN SNELL APRN Ot G47.30 SLEEP APNEA, UNSPECIFIED 08/20/2017 LOGAN SNELL APRN Ot I10 ESSENTIAL (PRIMARY) HYPERTENSION 08/20/2017 LOGAN SNELL APRN Ot J44 .9 CHRONIC OBSTRUCTIVE PULMONARY DISEASE, U 08/20/2017 LOGAN SNELL APRN Ot K21 .9 GASTRO-ESOPHAGEAL REFLUX DISEASE WITHOUT 08/20/2017 LOGAN SNELL APRN Ot R07.89 OTHER CHEST PAIN 08/20/2017 LOGAN SNELL APRN Ot Z79.51 ASSISTED (CURRENT) USE OF INHALED STERO 08/20/2017 LOGAN SNELL APRN Ot Z79.82 ASSISTED (CURRENT) USE OF ASPIRIN 08/20/2017 LOGAN SNELL APRN Ot Z79.84 ASSISTED (CURRENT) USE OF ORAL HYPOGLYC 08/20/2017 LOGAN SNELL APRN Ot Z87.19 PERSONAL HISTORY OF OTHER DISEASES OF 08/20/2017 LOGAN SNELL APRN Ot Z87.442 PERSONAL HISTORY OF URINARY CALCULI 08/20/2017 LOGAN SNELL APRN Ot Z87.891 PERSONAL HISTORY OF NICOTINE DEPENDENCE 08/20/2017 LOGAN SNELL APRN Ot Z90.49 ACQUIRED ABSENCE OF OTHER SPECIFIED PART 08/20/2017 LOGAN SNELL APRN Ot Z98.890 OTHER SPECIFIED POSTPROCEDURAL STATES 08/22/2017 LOGAN SNELL APRN Ot E11 .9 TYPE 2 DIABETES MELLITUS WITHOUT COMPLIC 08/22/2017 LOGAN SNELL APRN Ot E66.01 MORBID (SEVERE) OBESITY DUE TO EXCESS CA 08/22/2017 LOGAN SNELL APRN Ot E78.00 PURE HYPERCHOLESTEROLEMIA, UNSPECIFIED 08/22/2017 LOGAN SNELL APRN Ot F31 .9 BIPOLAR DISORDER, UNSPECIFIED 08/22/2017 LOGAN SNELL APRN Ot F41 .9 ANXIETY DISORDER, UNSPECIFIED 08/22/2017 LOGAN SNELL APRN Ot G47.30 SLEEP APNEA, UNSPECIFIED 08/22/2017 LOGAN SNELL APRN Ot I10 ESSENTIAL (PRIMARY) HYPERTENSION 08/22/2017 LOGAN SNELL APRN Ot J44 .9 CHRONIC OBSTRUCTIVE PULMONARY DISEASE, U 08/22/2017 LOGAN SNELL APRN Ot K21 .9 GASTRO-ESOPHAGEAL REFLUX DISEASE WITHOUT 08/22/2017 LOGAN SNELL APRN Ot R07.89 OTHER CHEST PAIN 08/22/2017 LOGAN SNELL APRN Ot Z79.51 ASSISTED (CURRENT) USE OF INHALED STERO 08/22/2017 LOGAN SNELL APRN Ot Z79.82 CLICKER OPERATOR (CURRENT) USE OF ASPIRIN 08/22/2017 LOGAN SNELL APRN Ot Z79.84 CLICKER OPERATOR (CURRENT) USE OF ORAL HYPOGLYC 08/22/2017 LOGAN SNELL APRN Ot Z87.19 PERSONAL HISTORY OF OTHER DISEASES OF 08/22/2017 LOGAN SNELL 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 Ot Z87.442 PERSONAL HISTORY OF URINARY CALCULI 08/22/2017 LOGAN SNELL 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 Ot Z87.891 PERSONAL HISTORY OF NICOTINE DEPENDENCE 08/22/2017 LOGAN SNELL 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 Ot Z90.49 ACQUIRED ABSENCE OF OTHER SPECIFIED PART 08/22/2017 LOGAN SNELL 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 Ot Z98.890 OTHER SPECIFIED POSTPROCEDURAL STATES 08/25/2017 RUDY BARRETO MD Ot E11.9 TYPE 2 DIABETES MELLITUS WITHOUT COMPLIC 08/25/2017 RUDY BARRETO MD Ot E66.01 MORBID (SEVERE) OBESITY DUE TO EXCESS CA 08/25/2017 RUDY BARRETO MD Ot E78.00 PURE HYPERCHOLESTEROLEMIA, UNSPECIFIED 08/25/2017 RUDY BARRETO MD Ot F31.9 BIPOLAR DISORDER, UNSPECIFIED 08/25/2017 RUDY BARRETO MD Ot F41.9 ANXIETY DISORDER, UNSPECIFIED 08/25/2017 RUDY BARRETO MD Ot G47.30 SLEEP APNEA, UNSPECIFIED 08/25/2017 RUDY BARRETO MD Ot I10 ESSENTIAL (PRIMARY) HYPERTENSION 08/25/2017 RUDY BARRETO MD Ot J44.9 CHRONIC OBSTRUCTIVE PULMONARY DISEASE, U 08/25/2017 RUDY BARRETO MD Ot R07.89 OTHER CHEST PAIN 08/25/2017 RUDY BARRETO MD Ot R10.12 LEFT UPPER QUADRANT PAIN 08/25/2017 RUDY BARRETO MD Ot Z79.82 CLICKER OPERATOR (CURRENT) USE OF ASPIRIN 08/25/2017 RUDY BARRETO MD Ot Z79.84 ASSISTED (CURRENT) USE OF ORAL HYPOGLYC 08/25/2017 RUDY BARRETO MD Ot Z87.19 PERSONAL HISTORY OF OTHER DISEASES OF 08/25/2017 RUDY BARRETO MD Ot Z90.49 ACQUIRED ABSENCE OF OTHER SPECIFIED PART 08/25/2017 RUDY BARRETO MD Ot Z98.890 OTHER SPECIFIED POSTPROCEDURAL STATES 08/25/2017 RUDY BARRETO MD Ot E11.9 TYPE 2 DIABETES MELLITUS WITHOUT COMPLIC 08/25/2017 RUDY BARRETO MD Ot E66.01 MORBID (SEVERE) OBESITY DUE TO EXCESS CA 08/25/2017 RUDY BARRETO MD Ot E78.00 PURE HYPERCHOLESTEROLEMIA, UNSPECIFIED 08/25/2017 RUDY BARRETO MD Ot F31.9 BIPOLAR DISORDER, UNSPECIFIED 08/25/2017 RUDY BARRETO MD Ot F41.9 ANXIETY DISORDER, UNSPECIFIED 08/25/2017 RUDY BARRETO MD Ot G47.30 SLEEP APNEA, UNSPECIFIED 08/25/2017 RUDY BARRETO MD Ot I10 ESSENTIAL (PRIMARY) HYPERTENSION 08/25/2017 RUDY BARRETO MD Ot J44.9 CHRONIC OBSTRUCTIVE PULMONARY DISEASE, U 08/25/2017 RUDY BARRETO MD Ot R07.89 OTHER CHEST PAIN 08/25/2017 RUDY BARRETO MD Ot R10.12 LEFT UPPER QUADRANT PAIN 08/25/2017 RUDY BARRETO MD Ot Z79.82 CLICKER OPERATOR (CURRENT) USE OF ASPIRIN 08/25/2017 RUDY BARRETO MD Ot Z79.84 CLICKER OPERATOR (CURRENT) USE OF ORAL HYPOGLYC 08/25/2017 RUDY BARRETO MD Ot Z87.19 PERSONAL HISTORY OF OTHER DISEASES OF TH 08/25/2017 RUDY BARRETO MD Ot Z90.49 ACQUIRED ABSENCE OF OTHER SPECIFIED PART 08/25/2017 RUDY BARRETO MD Ot Z98.890 OTHER SPECIFIED POSTPROCEDURAL STATES 08/26/2017 LOGAN SNELL APRN Ot E11 .9 TYPE 2 DIABETES MELLITUS WITHOUT COMPLIC 08/26/2017 LOGAN SNELL APRN Ot E66.01 MORBID (SEVERE) OBESITY DUE TO EXCESS CA 08/26/2017 LOGAN SNELL APRN Ot E78.00 PURE HYPERCHOLESTEROLEMIA, UNSPECIFIED 08/26/2017 LOGAN SNELL APRN Ot F31 .9 BIPOLAR DISORDER, UNSPECIFIED 08/26/2017 LOGAN SNELL APRN Ot F41 .9 ANXIETY DISORDER, UNSPECIFIED 08/26/2017 LOGAN SNELL APRN Ot G47.30 SLEEP APNEA, UNSPECIFIED 08/26/2017 LOGAN SNELL APRN Ot I10 ESSENTIAL (PRIMARY) HYPERTENSION 08/26/2017 LOGAN SNELL APRN Ot J44 .9 CHRONIC OBSTRUCTIVE PULMONARY DISEASE, U 08/26/2017 LOGAN SNELL APRN Ot K21 .9 GASTRO-ESOPHAGEAL REFLUX DISEASE WITHOUT 08/26/2017 LOGAN SNELL APRN Ot R07.89 OTHER CHEST PAIN 08/26/2017 LOGAN SNELL APRN Ot Z79.51 ASSISTED (CURRENT) USE OF INHALED STERO 08/26/2017 LOGAN SNELL APRN Ot Z79.82 ASSISTED (CURRENT) USE OF ASPIRIN 08/26/2017 LOGAN SNELL APRN Ot Z79.84 CLICKER OPERATOR (CURRENT) USE OF ORAL HYPOGLYC 08/26/2017 LOGAN SNELL APRN Ot Z87.19 PERSONAL HISTORY OF OTHER DISEASES OF TH 08/26/2017 LOGAN SNELL APRN Ot Z87.442 PERSONAL HISTORY OF URINARY CALCULI 08/26/2017 LOGAN SNELL APRN Ot Z87.891 PERSONAL HISTORY OF NICOTINE DEPENDENCE 08/26/2017 LOGAN SNELL APRN Ot Z90.49 ACQUIRED ABSENCE OF OTHER SPECIFIED PART 08/26/2017 LOGAN SNELL APRN Ot Z98.890 OTHER SPECIFIED POSTPROCEDURAL STATES 09/21/2017 SALTY MENDEZ MD Ot E11. 9 TYPE 2 DIABETES MELLITUS WITHOUT COMPLIC 09/21/2017 SALTY MENDEZ MD Ot E66. 01 MORBID (SEVERE) OBESITY DUE TO EXCESS CA 09/21/2017 SALTY MENDEZ MD Ot E78. 00 PURE HYPERCHOLESTEROLEMIA, UNSPECIFIED 09/21/2017 SALTY MENDEZ MD Ot F31. 9 BIPOLAR DISORDER, UNSPECIFIED 09/21/2017 SALTY MENDEZ MD Ot F41. 9 ANXIETY DISORDER, UNSPECIFIED 09/21/2017 SALTY MENDEZ MD Ot G47. 30 SLEEP APNEA, UNSPECIFIED 09/21/2017 SALTY MENDEZ MD Ot I10 ESSENTIAL (PRIMARY) HYPERTENSION 09/21/2017 SALTY MENDEZ MD Ot J44. 9 CHRONIC OBSTRUCTIVE PULMONARY DISEASE, U 09/21/2017 SALTY MENDEZ MD Ot K21. 9 GASTRO-ESOPHAGEAL REFLUX DISEASE WITHOUT 09/21/2017 SALTY MENDEZ MD Ot R10. 10 UPPER ABDOMINAL PAIN, UNSPECIFIED 09/21/2017 SALTY MENDEZ MD Ot Z68. 43 BODY MASS INDEX (BMI) 50-59.9 , ADULT 09/21/2017 SALTY MENDEZ MD Ot Z79. 51 ASSISTED (CURRENT) USE OF INHALED STERO 09/21/2017 SALTY MENDEZ MD Ot Z79. 82 ASSISTED (CURRENT) USE OF ASPIRIN 09/21/2017 SALTY MENDEZ MD Ot Z79. 84 CLICKER OPERATOR (CURRENT) USE OF ORAL HYPOGLYC 09/21/2017 SALTY MENDEZ MD Ot Z87. 19 PERSONAL HISTORY OF OTHER DISEASES OF TH 09/21/2017 SALTY MENDEZ MD Ot Z87.442 PERSONAL HISTORY OF URINARY CALCULI 09/21/2017 SALTY MENDEZ MD Ot Z87.891 PERSONAL HISTORY OF NICOTINE DEPENDENCE 09/21/2017 SALTY MENDEZ MD Ot Z90. 49 ACQUIRED ABSENCE OF OTHER SPECIFIED PART 09/21/2017 SALTY MENDEZ MD Ot Z91. 14 PATIENT'S OTHER NONCOMPLIANCE WITH MEDIC 09/23/2017 SALTY MENDEZ MD Ot E11. 9 TYPE 2 DIABETES MELLITUS WITHOUT COMPLIC 09/23/2017 SALTY MENDEZ MD Ot E66. 01 MORBID (SEVERE) OBESITY DUE TO EXCESS CA 09/23/2017 SALTY MENDEZ MD Ot E78. 00 PURE HYPERCHOLESTEROLEMIA, UNSPECIFIED 09/23/2017 SALTY MENDEZ MD Ot F31. 9 BIPOLAR DISORDER, UNSPECIFIED 09/23/2017 SALTY MENDEZ MD Ot F41. 9 ANXIETY DISORDER, UNSPECIFIED 09/23/2017 SALTY MENDEZ MD Ot G47. 30 SLEEP APNEA, UNSPECIFIED 09/23/2017 SALTY MENDEZ MD Ot I10 ESSENTIAL (PRIMARY) HYPERTENSION 09/23/2017 SALTY MENDEZ MD Ot J44. 9 CHRONIC OBSTRUCTIVE PULMONARY DISEASE, U 09/23/2017 SALTY MENDEZ MD Ot K21. 9 GASTRO-ESOPHAGEAL REFLUX DISEASE WITHOUT 09/23/2017 SALTY MENDEZ MD Ot R10. 10 UPPER ABDOMINAL PAIN, UNSPECIFIED 09/23/2017 SALTY MENDEZ MD Ot Z68. 43 BODY MASS INDEX (BMI) 50-59.9 , ADULT 09/23/2017 SALTY MENDEZ MD Ot Z79. 51 ASSISTED (CURRENT) USE OF INHALED STERO 09/23/2017 SALTY MENDEZ MD Ot Z79. 82 CLICKER OPERATOR (CURRENT) USE OF ASPIRIN 09/23/2017 SALTY MENDEZ MD Ot Z79. 84 CLICKER OPERATOR (CURRENT) USE OF ORAL HYPOGLYC 09/23/2017 SALTY MENDEZ MD, Ot Z87. 19 PERSONAL HISTORY OF OTHER DISEASES OF 09/23/2017 SALTY MENDEZ MD Ot Z87.442 PERSONAL HISTORY OF URINARY CALCULI 09/23/2017 SALTY MENDEZ MD, Ot Z87.891 PERSONAL HISTORY OF NICOTINE DEPENDENCE 09/23/2017 SALTY MENDEZ MD Ot Z90. 49 ACQUIRED ABSENCE OF OTHER SPECIFIED PART 09/23/2017 SALTY MENDEZ MD Ot Z91. 14 PATIENT'S OTHER NONCOMPLIANCE WITH MEDIC 10/03/2017 Ot E11.9 TYPE 2 DIABETES MELLITUS WITHOUT COMPLIC 10/03/2017 Ot E66.01 MOR BID (SEVERE) OBESITY DUE TO EXCESS CA 10/03/2017 Ot E78.00 PUR E HYPERCHOLESTEROLEMIA, UNSPECIFIED 10/03/2017 Ot F31.9 BIPO LAR DISORDER, UNSPECIFIED 10/03/2017 Ot F41.9 ANXI ETY DISORDER, UNSPECIFIED 10/03/2017 Ot G47.30 SLE EP APNEA, UNSPECIFIED 10/03/2017 Ot I10 ESSENT IAL (PRIMARY) HYPERTENSION 10/03/2017 Ot J44.9 SUPERVISOR POLISHING [place] OBSTRUCTIVE PULMONARY DISEASE, U 10/03/2017 Ot K21.9 CELE RO-ESOPHAGEAL REFLUX DISEASE WITHOUT 10/03/2017 Ot N39.0 URIN FRANCHESCA TRACT INFECTION, SITE NOT SPECIF 10/03/2017 Ot R31.9 CARLOS EDUARDO TURIA, UNSPECIFIED 10/03/2017 Ot Z68.43 BOD Y MASS INDEX (BMI) 50-59.9 , ADULT 10/03/2017 Ot Z79.51 GRACIE G TERM (CURRENT) USE OF INHALED STERO 10/03/2017 Ot Z79.82 GRACIE G TERM (CURRENT) USE OF ASPIRIN 10/03/2017 Ot Z79.84 GRACIE G TERM (CURRENT) USE OF ORAL HYPOGLYC 10/03/2017 Ot Z87.19 PER STACEY HISTORY OF OTHER DISEASES OF 10/03/2017 Ot Z87.442 PE RSONAL HISTORY OF URINARY CALCULI 10/03/2017 Ot Z87.891 PE RSONAL HISTORY OF NICOTINE DEPENDENCE 10/03/2017 Ot Z90.49 ACQ UIRED ABSENCE OF OTHER SPECIFIED PART 10/12/2017 Ot E11.65 TYP E 2 DIABETES MELLITUS WITH HYPERGLYCE 10/12/2017 Ot E66.01 MOR BID (SEVERE) OBESITY DUE TO EXCESS CA 10/12/2017 Ot E78.00 PUR E HYPERCHOLESTEROLEMIA, UNSPECIFIED 10/12/2017 Ot E86.0 DEHY DRATION 10/12/2017 Ot F31.9 BIPO LAR DISORDER, UNSPECIFIED 10/12/2017 Ot F41.9 ANXI ETY DISORDER, UNSPECIFIED 10/12/2017 Ot G47.30 SLE EP APNEA, UNSPECIFIED 10/12/2017 Ot I10 ESSENT IAL (PRIMARY) HYPERTENSION 10/12/2017 Ot J44.9 SUPERVISOR POLISHING [place] OBSTRUCTIVE PULMONARY DISEASE, U 10/12/2017 Ot K21.9 CELE RO-ESOPHAGEAL REFLUX DISEASE WITHOUT 10/12/2017 Ot R53.1 WEAK NESS 10/12/2017 Ot Z79.51 GRACIE G TERM (CURRENT) USE OF INHALED STERO 10/12/2017 Ot Z79.52 GRACIE G TERM (CURRENT) USE OF SYSTEMIC STER 10/12/2017 Ot Z79.82 GRACIE G TERM (CURRENT) USE OF ASPIRIN 10/12/2017 Ot Z79.84 GRACIE G TERM (CURRENT) USE OF ORAL HYPOGLYC 10/12/2017 Ot Z87.442 PE RSONAL HISTORY OF URINARY CALCULI 10/12/2017 Ot Z87.448 PE RSONAL HISTORY OF OTHER DISEASES OF UR 10/12/2017 Ot Z87.891 PE RSONAL HISTORY OF NICOTINE DEPENDENCE 10/12/2017 Ot Z90.49 ACQ UIRED ABSENCE OF OTHER SPECIFIED PART 12/22/2017 LINO GONZALES MD Ot 592.0 CALCULUS OF KIDNEY 12/22/2017 LINO GONZALES MD Ot 592.0 CALCULUS OF KIDNEY 12/22/2017 LINO GONZALES MD Ot 789.0 3 ABDOMINAL PAIN, RIGHT LOWER QUADRANT 12/22/2017 LINO GONZALES MD Ot 793.5 NOSP (ABN) FINDINGS ON RADIOLOGICAL OT 12/22/2017 JANET MD, LINO A Ot 592.0 CALCULUS OF KIDNEY 12/22/2017 LINO GONZALES MD Ot V72.8 4 EXAM PRE-OPERATIVE NOS 12/22/2017 JANET LENNON, LINO Hays Ot 592.9 URINARY CALCULUS NOS 12/22/2017 JOANNE LENNON, SOL Hays (DDU) Ot Z02.71 ENCOUNTER FOR DISABILITY DETERMINATION 12/22/2017 LIBERTAD LENNON, Caron WAGNER Ot R42 DIZZINESS AND GIDDINESS 12/22/2017 MARY LOU LENNON, RUDY De Dios Ot E11.22 TYPE 2 DIABETES MELLITUS W DIABETIC SUPERVISOR POLISHING 12/22/2017 MARY LOU LENNON, RUDY De Dios Ot E66.01 MORBID (SEVERE) OBESITY DUE TO EXCESS CA 12/22/2017 MARY LOU LENNON, RUDY De Dios Ot E78.00 PURE HYPERCHOLESTEROLEMIA, UNSPECIFIED 12/22/2017 RUDY BARRETO MD Ot F31.9 BIPOLAR DISORDER, UNSPECIFIED 12/22/2017 RUDY BARRETO MD Ot F41.9 ANXIETY DISORDER, UNSPECIFIED 12/22/2017 RUDY BARRETO MD Ot G47.30 SLEEP APNEA, UNSPECIFIED 12/22/2017 RUDY BARRETO MD Ot I12.9 HYPERTENSIVE CHRONIC KIDNEY DISEASE W ST 12/22/2017 RUDY BARRETO MD Ot J44.9 CHRONIC OBSTRUCTIVE PULMONARY DISEASE, U 12/22/2017 RUDY BARRETO MD Ot K21.9 GASTRO-ESOPHAGEAL REFLUX DISEASE WITHOUT 12/22/2017 RUDY BARRETO MD Ot N18.9 CHRONIC KIDNEY DISEASE, UNSPECIFIED 12/22/2017 RUDY BARRETO MD Ot R30.0 DYSURIA 12/22/2017 RUDY BARRETO MD Ot R39.11 HESITANCY OF MICTURITION 12/22/2017 RUDY BARRETO MD Ot R82.998 OTHER ABNORMAL FINDINGS IN URINE 12/22/2017 RUDY BARRETO MD, Ot Z79.51 CLICKER OPERATOR (CURRENT) USE OF INHALED STERO 12/22/2017 RUDY BARRETO MD Ot Z79.82 CLICKER OPERATOR (CURRENT) USE OF ASPIRIN 12/22/2017 RUDY BARRETO MD, Ot Z79.84 ASSISTED (CURRENT) USE OF ORAL HYPOGLYC 12/22/2017 RUDY BARRETO MD, Ot Z87.19 PERSONAL HISTORY OF OTHER DISEASES OF TH 12/22/2017 RUDY BARRETO MD, Ot Z87.442 PERSONAL HISTORY OF URINARY CALCULI 12/22/2017 RUDY BARRETO MD, Ot Z87.891 PERSONAL HISTORY OF NICOTINE DEPENDENCE 12/22/2017 RUDY BARRETO MD, Ot Z90.49 ACQUIRED ABSENCE OF OTHER SPECIFIED PART 12/24/2017 RUDY BARRETO MD, Ot E11.22 TYPE 2 DIABETES MELLITUS W DIABETIC SUPERVISOR POLISHING 12/24/2017 RUDY BARRETO MD, Ot E66.01 MORBID (SEVERE) OBESITY DUE TO EXCESS CA 12/24/2017 RUDY BARRETO MD, Ot E78.00 PURE HYPERCHOLESTEROLEMIA, UNSPECIFIED 12/24/2017 RUDY BARRETO MD, Ot F31.9 BIPOLAR DISORDER, UNSPECIFIED 12/24/2017 RUDY BARRETO MD, Ot F41.9 ANXIETY DISORDER, UNSPECIFIED 12/24/2017 RUDY BARRETO MD, Ot G47.30 SLEEP APNEA, UNSPECIFIED 12/24/2017 RUDY BARRETO MD, Ot I12.9 HYPERTENSIVE CHRONIC KIDNEY DISEASE W ST 12/24/2017 RUDY BARRETO MD, Ot J44.9 CHRONIC OBSTRUCTIVE PULMONARY DISEASE, U 12/24/2017 RUDY BARRETO MD, Ot K21.9 GASTRO-ESOPHAGEAL REFLUX DISEASE WITHOUT 12/24/2017 RUDY BARRETO MD, Ot N18.9 CHRONIC KIDNEY DISEASE, UNSPECIFIED 12/24/2017 RUDY BARRETO MD, Ot R30.0 DYSURIA 12/24/2017 RUDY BARRETO MD, Ot R39.11 HESITANCY OF MICTURITION 12/24/2017 RUDY BARRETO MD, Ot R82.998 OTHER ABNORMAL FINDINGS IN URINE 12/24/2017 URDY BARRETO MD, Ot Z79.51 ASSISTED (CURRENT) USE OF INHALED STERO 12/24/2017 RUDY BARRETO MD, Ot Z79.82 CLICKER OPERATOR (CURRENT) USE OF ASPIRIN 12/24/2017 RUDY BARRETO MD, Ot Z79.84 ASSISTED (CURRENT) USE OF ORAL HYPOGLYC 12/24/2017 RUDY BARRETO MD, Ot Z87.19 PERSONAL HISTORY OF OTHER DISEASES OF TH 12/24/2017 RUDY BARRETO MD, Ot Z87.442 PERSONAL HISTORY OF URINARY CALCULI 12/24/2017 RUDY BARRETO MD, Ot Z87.891 PERSONAL HISTORY OF NICOTINE DEPENDENCE 12/24/2017 RUDY BARRETO MD, Ot Z90.49 ACQUIRED ABSENCE OF OTHER SPECIFIED PART 12/27/2017 RUDY BARRETO MD, Ot E11.22 TYPE 2 DIABETES MELLITUS W DIABETIC SUPERVISOR POLISHING 12/27/2017 RUDY BARRETO MD, Ot E66.01 MORBID (SEVERE) OBESITY DUE TO EXCESS CA 12/27/2017 RUDY BARRETO MD, Ot E78.00 PURE HYPERCHOLESTEROLEMIA, UNSPECIFIED 12/27/2017 RUDY BARRETO MD, Ot F31.9 BIPOLAR DISORDER, UNSPECIFIED 12/27/2017 RUDY BARRETO MD, Ot F41.9 ANXIETY DISORDER, UNSPECIFIED 12/27/2017 RUDY BARRETO MD, Ot G47.30 SLEEP APNEA, UNSPECIFIED 12/27/2017 RUDY BARRETO MD, Ot I12.9 HYPERTENSIVE CHRONIC KIDNEY DISEASE W ST 12/27/2017 RUDY BARRETO MD, Ot J44.9 CHRONIC OBSTRUCTIVE PULMONARY DISEASE, U 12/27/2017 RUDY BARRETO MD, Ot K21.9 GASTRO-ESOPHAGEAL REFLUX DISEASE WITHOUT 12/27/2017 RUDY BARRETO MD, Ot N18.9 CHRONIC KIDNEY DISEASE, UNSPECIFIED 12/27/2017 RUDY BARRETO MD, Ot R30.0 DYSURIA 12/27/2017 RUDY BARRETO MD, Ot R39.11 HESITANCY OF MICTURITION 12/27/2017 RUDY BARRETO MD, Ot R82.998 OTHER ABNORMAL FINDINGS IN URINE 12/27/2017 RUDY BARRETO MD Ot Z79.51 ASSISTED (CURRENT) USE OF INHALED STERO 12/27/2017 RUDY BARRETO MD Ot Z79.82 ASSISTED (CURRENT) USE OF ASPIRIN 12/27/2017 RUDY BARRETO MD Ot Z79.84 CLICKER OPERATOR (CURRENT) USE OF ORAL HYPOGLYC 12/27/2017 RUDY BARRETO MD Ot Z87.19 PERSONAL HISTORY OF OTHER DISEASES OF TH 12/27/2017 RUDY BARRETO MD, Ot Z87.442 PERSONAL HISTORY OF URINARY CALCULI 12/27/2017 RUDY BARRETO MD Ot Z87.891 PERSONAL HISTORY OF NICOTINE DEPENDENCE 12/27/2017 RUDY BARRETO MD Ot Z90.49 ACQUIRED ABSENCE OF OTHER SPECIFIED PART 02/10/2018 PATEL MAURER MD Ot I12 .9 HYPERTENSIVE CHRONIC KIDNEY DISEASE W ST 02/10/2018 PATEL MAURER MD R Ot N18 .3 CHRONIC KIDNEY DISEASE, STAGE 3 (MODERAT 02/10/2018 PATEL MAURER MD R Ot N20 .0 CALCULUS OF KIDNEY 02/10/2018 LIBERTAD LENNON, PATEL R Ot R60 .0 LOCALIZED EDEMA 02/12/2018 PATEL MAURER MD R Ot I12 .9 HYPERTENSIVE CHRONIC KIDNEY DISEASE W ST 02/12/2018 PATEL MAURER MD R Ot N18 .3 CHRONIC KIDNEY DISEASE, STAGE 3 (MODERAT 02/12/2018 PATEL MAURER MD R Ot N20 .0 CALCULUS OF KIDNEY 02/12/2018 LIBERTAD LENNON, PATEL R Ot R60 .0 LOCALIZED EDEMA 02/19/2018 PATEL MAURER MD R Ot I12 .9 HYPERTENSIVE CHRONIC KIDNEY DISEASE W ST 02/19/2018 PATEL MAURER MD R Ot N18 .3 CHRONIC KIDNEY DISEASE, STAGE 3 (MODERAT 02/19/2018 LIBERTAD LENNON, PATEL R Ot N20 .0 CALCULUS OF KIDNEY 02/19/2018 PATEL MAURER MD R Ot R60 .0 LOCALIZED EDEMA 03/13/2018 LINO GONZALES MD Ot 592.0 CALCULUS OF KIDNEY 03/13/2018 LINO GONZALES MD Ot 592.0 CALCULUS OF KIDNEY 03/13/2018 LINO GONZALES MD Ot 789.0 3 ABDOMINAL PAIN, RIGHT LOWER QUADRANT 03/13/2018 LINO GONZALES MD Ot 793.5 NOSP (ABN) FINDINGS ON RADIOLOGICAL OT 03/13/2018 LINO GONZALES MD Ot 592.0 CALCULUS OF KIDNEY 03/13/2018 LINO GONZALES MD Ot V72.8 4 EXAM PRE-OPERATIVE NOS 03/13/2018 LINO GONZALES MD Ot 592.9 URINARY CALCULUS NOS 03/13/2018 SOL RUBIO MD (DDU) Ot Z02.71 ENCOUNTER FOR DISABILITY DETERMINATION 03/13/2018 Caron MAURER MD Ot R42 DIZZINESS AND GIDDINESS 03/13/2018 PATEL MAURER MD R Ot I12 .9 HYPERTENSIVE CHRONIC KIDNEY DISEASE W ST 03/13/2018 PATEL MAURER MD R Ot N18 .3 CHRONIC KIDNEY DISEASE, STAGE 3 (MODERAT 03/13/2018 KALYN MAURER MDMA R Ot N20 .0 CALCULUS OF KIDNEY 03/13/2018 PATEL MAURER MD R Ot R60 .0 LOCALIZED EDEMA 03/13/2018 LINO GONZALES MD Ot 592.0 CALCULUS OF KIDNEY 03/13/2018 LINO GONZALES MD Ot 592.0 CALCULUS OF KIDNEY 03/13/2018 LINO GONZALES MD Ot 789.0 3 ABDOMINAL PAIN, RIGHT LOWER QUADRANT 03/13/2018 LINO GONZALES MD Ot 793.5 NOSP (ABN) FINDINGS ON RADIOLOGICAL OT 03/13/2018 LINO GONZALES MD Ot 592.0 CALCULUS OF KIDNEY 03/13/2018 LINO GONZALES MD Ot V72.8 4 EXAM PRE-OPERATIVE NOS 03/13/2018 LINO GONZALES MD Ot 592.9 URINARY CALCULUS NOS 03/13/2018 SOL RUBIO MD (DDU) Ot Z02.71 ENCOUNTER FOR DISABILITY DETERMINATION 03/13/2018 Caron MAURER MD Ot R42 DIZZINESS AND GIDDINESS 03/13/2018 PATEL MAURER MD R Ot I12 .9 HYPERTENSIVE CHRONIC KIDNEY DISEASE W ST 03/13/2018 LIBERTAD LENNON, PATEL R Ot N18 .3 CHRONIC KIDNEY DISEASE, STAGE 3 (MODERAT 03/13/2018 LIBERTAD LENNON, PATEL R Ot N20 .0 CALCULUS OF KIDNEY 03/13/2018 LIBERTAD LENNON, PATEL R Ot R60 .0 LOCALIZED EDEMA 03/13/2018 GERMÁN GARCIA MOTORCYLES FINAL INSPECTOR Ot E11.9 TYPE 2 DIABETES MELLITUS WITHOUT COMPLIC 03/13/2018 JOSE GERMÁN MOTORCYLES FINAL INSPECTOR Ot E66.01 MORBID (SEVERE) OBESITY DUE TO EXCESS CA 03/13/2018 JOSE GERMÁN MOTORCYLES FINAL INSPECTOR Ot E78.00 PURE HYPERCHOLESTEROLEMIA, UNSPECIFIED 03/13/2018 JOSE, GERMÁN MOTORCYLES FINAL INSPECTOR Ot F19.10 OTHER PSYCHOACTIVE SUBSTANCE ABUSE, UNCO 03/13/2018 JOSE GERMÁN MOTORCYLES FINAL INSPECTOR Ot F31.9 BIPOLAR DISORDER, UNSPECIFIED 03/13/2018 JOSE, GERMÁN MOTORCYLES FINAL INSPECTOR Ot F41.9 ANXIETY DISORDER, UNSPECIFIED 03/13/2018 JOSE GERMÁN MOTORCYLES FINAL INSPECTOR Ot G47.30 SLEEP APNEA, UNSPECIFIED 03/13/2018 JOSE, GERMÁN MOTORCYLES FINAL INSPECTOR Ot I10 ESSENTIAL (PRIMARY) HYPERTENSION 03/13/2018 JOSE GERMÁN MOTORCYLES FINAL INSPECTOR Ot J44.9 CHRONIC OBSTRUCTIVE PULMONARY DISEASE, U 03/13/2018 JOSE GERMÁN MOTORCYLES FINAL INSPECTOR Ot K21.9 GASTRO-ESOPHAGEAL REFLUX DISEASE WITHOUT 03/13/2018 JOSE GERMÁN MOTORCYLES FINAL INSPECTOR Ot R07.89 OTHER CHEST PAIN 03/13/2018 JOSE GERMÁN MOTORCYLES FINAL INSPECTOR Ot Z68.43 BODY MASS INDEX (BMI) 50-59.9, ADULT 03/13/2018 GERMÁN GARCIA MOTORCYLES FINAL INSPECTOR Ot Z79.51 ASSISTED (CURRENT) USE OF INHALED STERO 03/13/2018 GERMÁN GARCIA MOTORCYLES FINAL INSPECTOR Ot Z79.82 ASSISTED (CURRENT) USE OF ASPIRIN 03/13/2018 GERMÁN GARCIA MOTORCYLES FINAL INSPECTOR Ot Z79.84 CLICKER OPERATOR (CURRENT) USE OF ORAL HYPOGLYC 03/13/2018 GERMÁN GARCIA MOTORCYLES FINAL INSPECTOR Ot Z87.19 PERSONAL HISTORY OF OTHER DISEASES OF TH 03/13/2018 GERMÁN GARCIAP Ot Z87.442 PERSONAL HISTORY OF URINARY CALCULI 03/13/2018 GERMÁN GARCIAP Ot Z87.891 PERSONAL HISTORY OF NICOTINE DEPENDENCE 03/13/2018 GERMÁN GARCIA MOTORCYLES FINAL INSPECTOR Ot Z90.49 ACQUIRED ABSENCE OF OTHER SPECIFIED PART 03/13/2018 JOSE, GERMÁN MOTORCYLES FINAL INSPECTOR Ot Z98.890 OTHER SPECIFIED POSTPROCEDURAL STATES 03/16/2018 JOSEGERMÁN Blair MOTORCYLES FINAL INSPECTOR Ot E11.9 TYPE 2 DIABETES MELLITUS WITHOUT COMPLIC 03/16/2018 JOSE, GERMÁN MOTORCYLES FINAL INSPECTOR Ot E66.01 MORBID (SEVERE) OBESITY DUE TO EXCESS CA 03/16/2018 JOSEGERMÁN Blair MOTORCYLES FINAL INSPECTOR Ot E78.00 PURE HYPERCHOLESTEROLEMIA, UNSPECIFIED 03/16/2018 JOSE, GERMÁN MOTORCYLES FINAL INSPECTOR Ot F19.10 OTHER PSYCHOACTIVE SUBSTANCE ABUSE, UNCO 03/16/2018 JOSE, GERMÁN MOTORCYLES FINAL INSPECTOR Ot F31.9 BIPOLAR DISORDER, UNSPECIFIED 03/16/2018 JOSE, GERMÁN MOTORCYLES FINAL INSPECTOR Ot F41.9 ANXIETY DISORDER, UNSPECIFIED 03/16/2018 JOSE, GERMÁN MOTORCYLES FINAL INSPECTOR Ot G47.30 SLEEP APNEA, UNSPECIFIED 03/16/2018 JOSE, GERMÁN MOTORCYLES FINAL INSPECTOR Ot I10 ESSENTIAL (PRIMARY) HYPERTENSION 03/16/2018 JOSEGERMÁN BlairP Ot J44.9 CHRONIC OBSTRUCTIVE PULMONARY DISEASE, U 03/16/2018 JOSE, GERMÁN MOTORCYLES FINAL INSPECTOR Ot K21.9 GASTRO-ESOPHAGEAL REFLUX DISEASE WITHOUT 03/16/2018 JOSE, GERMÁN MOTORCYLES FINAL INSPECTOR Ot R07.89 OTHER CHEST PAIN 03/16/2018 JOSEGERMÁN Blair MOTORCYLES FINAL INSPECTOR Ot Z68.43 BODY MASS INDEX (BMI) 50-59.9, ADULT 03/16/2018 JOSE, GERMÁN MOTORCYLES FINAL INSPECTOR Ot Z79.51 ASSISTED (CURRENT) USE OF INHALED STERO 03/16/2018 JOSE, GERMÁN MOTORCYLES FINAL INSPECTOR Ot Z79.82 ASSISTED (CURRENT) USE OF ASPIRIN 03/16/2018 JOSEGERMÁN Blair MOTORCYLES FINAL INSPECTOR Ot Z79.84 ASSISTED (CURRENT) USE OF ORAL HYPOGLYC 03/16/2018 JOSEGERMÁN Blair MOTORCYLES FINAL INSPECTOR Ot Z87.19 PERSONAL HISTORY OF OTHER DISEASES OF TH 03/16/2018 JOSEGERMÁN Blair MOTORCYLES FINAL INSPECTOR Ot Z87.442 PERSONAL HISTORY OF URINARY CALCULI 03/16/2018 JOSEGERMÁN Blair MOTORCYLES FINAL INSPECTOR Ot Z87.891 PERSONAL HISTORY OF NICOTINE DEPENDENCE 03/16/2018 JOSEGERMÁN Blair MOTORCYLES FINAL INSPECTOR Ot Z90.49 ACQUIRED ABSENCE OF OTHER SPECIFIED PART 03/16/2018 JOESGERMÁN Blair MOTORCYLES FINAL INSPECTOR Ot Z98.890 OTHER SPECIFIED POSTPROCEDURAL STATES 03/19/2018 JOSEGERMÁN Blair MOTORCYLES FINAL INSPECTOR Ot E11.9 TYPE 2 DIABETES MELLITUS WITHOUT COMPLIC 03/19/2018 JOSE, GERMÁN MOTORCYLES FINAL INSPECTOR Ot E66.01 MORBID (SEVERE) OBESITY DUE TO EXCESS CA 03/19/2018 JOSE, GERMÁN MOTORCYLES FINAL INSPECTOR Ot E78.00 PURE HYPERCHOLESTEROLEMIA, UNSPECIFIED 03/19/2018 JOSE, GERMÁN MOTORCYLES FINAL INSPECTOR Ot F19.10 OTHER PSYCHOACTIVE SUBSTANCE ABUSE, UNCO 03/19/2018 JOSE, GERMÁN MOTORCYLES FINAL INSPECTOR Ot F31.9 BIPOLAR DISORDER, UNSPECIFIED 03/19/2018 JOSE, GERMÁN MOTORCYLES FINAL INSPECTOR Ot F41.9 ANXIETY DISORDER, UNSPECIFIED 03/19/2018 JOSE, GERMÁN MOTORCYLES FINAL INSPECTOR Ot G47.30 SLEEP APNEA, UNSPECIFIED 03/19/2018 JOSE, GERMÁN MOTORCYLES FINAL INSPECTOR Ot I10 ESSENTIAL (PRIMARY) HYPERTENSION 03/19/2018 JOSE, GERMÁN MOTORCYLES FINAL INSPECTOR Ot J44.9 CHRONIC OBSTRUCTIVE PULMONARY DISEASE, U 03/19/2018 JOSE, GERMÁN GOODENP Ot K21.9 GASTRO-ESOPHAGEAL REFLUX DISEASE WITHOUT 03/19/2018 JOSE, GERMÁN GOODENP Ot R07.89 OTHER CHEST PAIN 03/19/2018 JOSE, GERMÁN MOTORCYLES FINAL INSPECTOR Ot Z68.43 BODY MASS INDEX (BMI) 50-59.9, ADULT 03/19/2018 JOSE, GERMÁN MOTORCYLES FINAL INSPECTOR Ot Z79.51 CLICKER OPERATOR (CURRENT) USE OF INHALED STERO 03/19/2018 JOSEGERMÁN Blair MOTORCYLES FINAL INSPECTOR Ot Z79.82 ASSISTED (CURRENT) USE OF ASPIRIN 03/19/2018 JOSEGERMÁN Blair MOTORCYLES FINAL INSPECTOR Ot Z79.84 ASSISTED (CURRENT) USE OF ORAL HYPOGLYC 03/19/2018 JOSE, GERMÁN GOODENP Ot Z87.19 PERSONAL HISTORY OF OTHER DISEASES OF TH 03/19/2018 JOSE, GERMÁN GOODENP Ot Z87.442 PERSONAL HISTORY OF URINARY CALCULI 03/19/2018 JOSE, GERMÁN MOTORCYLES FINAL INSPECTOR Ot Z87.891 PERSONAL HISTORY OF NICOTINE DEPENDENCE 03/19/2018 JOSEGERMÁN Blair MOTORCYLES FINAL INSPECTOR Ot Z90.49 ACQUIRED ABSENCE OF OTHER SPECIFIED PART 03/19/2018 JOSEGERMÁN Blair MOTORCYLES FINAL INSPECTOR Ot Z98.890 OTHER SPECIFIED POSTPROCEDURAL STATES 04/01/2018 JANET LENNON, LINO Hays Ot N40.1 BENIGN PROSTATIC HYPERPLASIA WITH LOWER 04/01/2018 LINO GONZALES MD Ot N40.1 BENIGN PROSTATIC HYPERPLASIA WITH LOWER 04/03/2018 JANET MD, LINO A Ot N40.1 BENIGN PROSTATIC HYPERPLASIA WITH LOWER 04/07/2018 TRINITY CURRY Ot E11.9 TYPE 2 DIABETES MELLITUS WITHOUT COMPLIC 04/07/2018 TRINITY CURRY Ot E66.01 MORBID (SEVERE) OBESITY DUE TO EXCESS CA 04/07/2018 ZANE CURRYIS Ot E78.00 PURE HYPERCHOLESTEROLEMIA, UNSPECIFIED 04/07/2018 ZANE CURRYIS Ot F17.210 NICOTINE DEPENDENCE, CIGARETTES, UNCOMPL 04/07/2018 ZANE CURRYIS Ot F31.9 BIPOLAR DISORDER, UNSPECIFIED 04/07/2018 ZANE CURRYIS Ot F41.9 ANXIETY DISORDER, UNSPECIFIED 04/07/2018 ZANE CURRYIS Ot G47.30 SLEEP APNEA, UNSPECIFIED 04/07/2018 TRINITY CURRY Ot I10 ESSENTIAL (PRIMARY) HYPERTENSION 04/07/2018 TRINITY CURRY Ot J44.9 CHRONIC OBSTRUCTIVE PULMONARY DISEASE, U 04/07/2018 TRINITY CURRY Ot K21.9 GASTRO-ESOPHAGEAL REFLUX DISEASE WITHOUT 04/07/2018 ZANE CURRYIS Ot M25.562 PAIN IN LEFT KNEE 04/07/2018 ZANE CURRYIS Ot X50.1XXA OVEREXERTION FROM PROLONGED STATIC OR AW 04/07/2018 TRINITY CURRY Ot Z68.43 BODY MASS INDEX (BMI) 50-59.9, ADULT 04/07/2018 TRINITY CURRY Ot Z79.51 CLICKER OPERATOR (CURRENT) USE OF INHALED STERO 04/07/2018 ZANE CURRYIS Ot Z79.82 ASSISTED (CURRENT) USE OF ASPIRIN 04/07/2018 ZANE CURRYIS Ot Z79.84 CLICKER OPERATOR (CURRENT) USE OF ORAL HYPOGLYC 04/07/2018 ZANE CURRYIS Ot Z87.19 PERSONAL HISTORY OF OTHER DISEASES OF TH 04/07/2018 TRINITY CURRY Ot Z87.442 PERSONAL HISTORY OF URINARY CALCULI 04/07/2018 TRINITY CURRY Ot Z90.49 ACQUIRED ABSENCE OF OTHER SPECIFIED PART 04/07/2018 TRINITY CURRY Ot Z98.890 OTHER SPECIFIED POSTPROCEDURAL STATES 04/07/2018 LIBERTAD LENNON, PATEL Horowitz Ot N18 .3 CHRONIC KIDNEY DISEASE, STAGE 3 (MODERAT 04/07/2018 LIBERTAD LENNON, PATEL Horowitz Ot N28 .1 CYST OF KIDNEY, ACQUIRED 04/13/2018 TRINITY CURRY Ot E11.9 TYPE 2 DIABETES MELLITUS WITHOUT COMPLIC 04/13/2018 TRINITY CURRY Ot E66.01 MORBID (SEVERE) OBESITY DUE TO EXCESS CA 04/13/2018 TRINITY CURRY Ot E78.00 PURE HYPERCHOLESTEROLEMIA, UNSPECIFIED 04/13/2018 TRINITY CURRY Ot F17.210 NICOTINE DEPENDENCE, CIGARETTES, UNCOMPL 04/13/2018 TRINITY CURRY Ot F31.9 BIPOLAR DISORDER, UNSPECIFIED 04/13/2018 TRINITY CURRY Ot F41.9 ANXIETY DISORDER, UNSPECIFIED 04/13/2018 TRINITY CURRY Ot G47.30 SLEEP APNEA, UNSPECIFIED 04/13/2018 TRINITY CURRY Ot I10 ESSENTIAL (PRIMARY) HYPERTENSION 04/13/2018 TRINITY CURRY Ot J44.9 CHRONIC OBSTRUCTIVE PULMONARY DISEASE, U 04/13/2018 TRINITY CURRY Ot K21.9 GASTRO-ESOPHAGEAL REFLUX DISEASE WITHOUT 04/13/2018 TRINITY CURRY Ot M25.562 PAIN IN LEFT KNEE 04/13/2018 TRINITY CURRY Ot X50.1XXA OVEREXERTION FROM PROLONGED STATIC OR AW 04/13/2018 TRINITY CURRY Ot Z68.43 BODY MASS INDEX (BMI) 50-59.9, ADULT 04/13/2018 TRINITY CURRY Ot Z79.51 ASSISTED (CURRENT) USE OF INHALED STERO 04/13/2018 TRINITY CURRY Ot Z79.82 ASSISTED (CURRENT) USE OF ASPIRIN 04/13/2018 TRINITY CURRY Ot Z79.84 CLICKER OPERATOR (CURRENT) USE OF ORAL HYPOGLYC 04/13/2018 TRINITY CURRY Ot Z87.19 PERSONAL HISTORY OF OTHER DISEASES OF TH 04/13/2018 TRINITY CURRY Ot Z87.442 PERSONAL HISTORY OF URINARY CALCULI 04/13/2018 TRINITY CURRY Ot Z90.49 ACQUIRED ABSENCE OF OTHER SPECIFIED PART 04/13/2018 TRINITY CURRY Ot Z98.890 OTHER SPECIFIED POSTPROCEDURAL STATES 05/24/2018 LAURA STRINGER MD, Ot D72.8 29 ELEVATED WHITE BLOOD CELL COUNT, UNSPECI 05/24/2018 LAURA STRINGER MD, Ot E11.2 2 TYPE 2 DIABETES MELLITUS W DIABETIC SUPERVISOR POLISHING 05/24/2018 LAURA STRINGER MD Ot E66.0 1 MORBID (SEVERE) OBESITY DUE TO EXCESS CA 05/24/2018 LAURA STRINGER MD, Ot E78.0 0 PURE HYPERCHOLESTEROLEMIA, UNSPECIFIED 05/24/2018 LAURA STRINGER MD Ot E86.0 DEHYDRATION 05/24/2018 LAURA STRINGER MD Ot F17.2 10 NICOTINE DEPENDENCE, CIGARETTES, UNCOMPL 05/24/2018 LAURA STRINGER MD Ot F31.9 BIPOLAR DISORDER, UNSPECIFIED 05/24/2018 LAURA STRINGER MD Ot F41.9 ANXIETY DISORDER, UNSPECIFIED 05/24/2018 LAURA STRINGER MD Ot G25.8 1 RESTLESS LEGS SYNDROME 05/24/2018 LAURA STRINGER MD Ot I12.9 HYPERTENSIVE CHRONIC KIDNEY DISEASE W ST 05/24/2018 LAURA STRINGER MD, Ot J44.9 CHRONIC OBSTRUCTIVE PULMONARY DISEASE, U 05/24/2018 LAURA STRINGER MD Ot K21.9 GASTRO-ESOPHAGEAL REFLUX DISEASE WITHOUT 05/24/2018 LAURA STRINGER MD Ot K52.9 NONINFECTIVE GASTROENTERITIS AND COLITIS 05/24/2018 LAURA STRINGER MD Ot N17.9 ACUTE KIDNEY FAILURE, UNSPECIFIED 05/24/2018 LAURA STRINGER MD, Ot N18.9 CHRONIC KIDNEY DISEASE, UNSPECIFIED 05/24/2018 LAURA STRINGER MD Ot N39.0 URINARY TRACT INFECTION, SITE NOT SPECIF 05/24/2018 LAURA STRINGER MD Ot Z68.4 2 BODY MASS INDEX (BMI) 45.0-49.9, ADULT 05/24/2018 LAURA STRINGER MD Ot Z87.4 42 PERSONAL HISTORY OF URINARY CALCULI 05/24/2018 LAURA STRINGER MD Ot D72.8 29 ELEVATED WHITE BLOOD CELL COUNT, UNSPECI 05/24/2018 LAURA STRINGER MD Ot E11.2 2 TYPE 2 DIABETES MELLITUS W DIABETIC SUPERVISOR POLISHING 05/24/2018 LAURA STRINGER MD Ot E66.0 1 MORBID (SEVERE) OBESITY DUE TO EXCESS CA 05/24/2018 LAURA STRINGER MD Ot E78.0 0 PURE HYPERCHOLESTEROLEMIA, UNSPECIFIED 05/24/2018 LAURA STRINGER MD Ot E86.0 DEHYDRATION 05/24/2018 GAULT MD, LAURA R Ot F17.2 10 NICOTINE DEPENDENCE, CIGARETTES, UNCOMPL 05/24/2018 LAURA STRINGER MD Ot F31.9 BIPOLAR DISORDER, UNSPECIFIED 05/24/2018 LAURA STRINGER MD, Ot F41.9 ANXIETY DISORDER, UNSPECIFIED 05/24/2018 LAURA STRINGER MD Ot G25.8 1 RESTLESS LEGS SYNDROME 05/24/2018 LAURA STRINGER MD Ot I12.9 HYPERTENSIVE CHRONIC KIDNEY DISEASE W ST 05/24/2018 LAURA STRINGER MD Ot J44.9 CHRONIC OBSTRUCTIVE PULMONARY DISEASE, U 05/24/2018 LAURA STRINGER MD, Ot K21.9 GASTRO-ESOPHAGEAL REFLUX DISEASE WITHOUT 05/24/2018 LAURA STRINGER MD Ot K52.9 NONINFECTIVE GASTROENTERITIS AND COLITIS 05/24/2018 LAURA STRINGER MD Ot N17.9 ACUTE KIDNEY FAILURE, UNSPECIFIED 05/24/2018 LAURA STRINGER MD Ot N18.9 CHRONIC KIDNEY DISEASE, UNSPECIFIED 05/24/2018 LAURA STRINGER MD Ot N39.0 URINARY TRACT INFECTION, SITE NOT SPECIF 05/24/2018 LAURA STRINGER MD Ot Z68.4 2 BODY MASS INDEX (BMI) 45.0-49.9, ADULT 05/24/2018 LAURA STRINGER MD Ot Z87.4 42 PERSONAL HISTORY OF URINARY CALCULI 05/28/2018 TRINITY CURRY Ot E11.9 TYPE 2 DIABETES MELLITUS WITHOUT COMPLIC 05/28/2018 ZANE CURRYIS Ot E66.01 MORBID (SEVERE) OBESITY DUE TO EXCESS CA 05/28/2018 ZANE CURRYIS Ot E78.00 PURE HYPERCHOLESTEROLEMIA, UNSPECIFIED 05/28/2018 ANTOINETTE TRINITY Ot F17.210 NICOTINE DEPENDENCE, CIGARETTES, UNCOMPL 05/28/2018 ZANE CURRYIS Ot F31.9 BIPOLAR DISORDER, UNSPECIFIED 05/28/2018 TRINITY CURRY Ot F41.9 ANXIETY DISORDER, UNSPECIFIED 05/28/2018 ZANE CURRYIS Ot G47.30 SLEEP APNEA, UNSPECIFIED 05/28/2018 ZANE CURRYIS Ot I10 ESSENTIAL (PRIMARY) HYPERTENSION 05/28/2018 TRINITY CURRY Ot J44.9 CHRONIC OBSTRUCTIVE PULMONARY DISEASE, U 05/28/2018 TRINITY CURRY Ot K21.9 GASTRO-ESOPHAGEAL REFLUX DISEASE WITHOUT 05/28/2018 TRINITY CURRY Ot M25.562 PAIN IN LEFT KNEE 05/28/2018 JAIDENVIVIENNE TRINITY Ot X50.1XXA OVEREXERTION FROM PROLONGED STATIC OR AW 05/28/2018 JAIDENVIVIENNE TRINITY Ot Z68.43 BODY MASS INDEX (BMI) 50-59.9, ADULT 05/28/2018 TRINITY CURRY Ot Z79.51 ASSISTED (CURRENT) USE OF INHALED STERO 05/28/2018 TRINITY CURRY Ot Z79.82 CLICKER OPERATOR (CURRENT) USE OF ASPIRIN 05/28/2018 TRINITY CURRY Ot Z79.84 CLICKER OPERATOR (CURRENT) USE OF ORAL HYPOGLYC 05/28/2018 TRINITY CURRY Ot Z87.19 PERSONAL HISTORY OF OTHER DISEASES OF TH 05/28/2018 JAIDENTRINITY PALAFOX Ot Z87.442 PERSONAL HISTORY OF URINARY CALCULI 05/28/2018 TRINITY CURRY Ot Z90.49 ACQUIRED ABSENCE OF OTHER SPECIFIED PART 05/28/2018 TRINITY CURRY Ot Z98.890 OTHER SPECIFIED POSTPROCEDURAL STATES 07/11/2018 LOGAN SNELL APRN Ot E11 .9 TYPE 2 DIABETES MELLITUS WITHOUT COMPLIC 07/11/2018 LOGAN SNELL APRN Ot E66.01 MORBID (SEVERE) OBESITY DUE TO EXCESS CA 07/11/2018 LOGAN SNELL APRN Ot E78.00 PURE HYPERCHOLESTEROLEMIA, UNSPECIFIED 07/11/2018 LOGAN SNELL APRN Ot F31 .9 BIPOLAR DISORDER, UNSPECIFIED 07/11/2018 LOGAN SNELL APRN Ot F41 .9 ANXIETY DISORDER, UNSPECIFIED 07/11/2018 LOGAN SNELL APRN Ot G47.30 SLEEP APNEA, UNSPECIFIED 07/11/2018 LOGAN SNELL APRN Ot I10 ESSENTIAL (PRIMARY) HYPERTENSION 07/11/2018 LOGAN SNELL APRN Ot J44 .9 CHRONIC OBSTRUCTIVE PULMONARY DISEASE, U 07/11/2018 LOGAN SNELL APRN Ot K21 .9 GASTRO-ESOPHAGEAL REFLUX DISEASE WITHOUT 07/11/2018 LOGAN SNELL APRN Ot N39 .0 URINARY TRACT INFECTION, SITE NOT SPECIF 07/11/2018 LOGAN SNELL APRN Ot R10.32 LEFT LOWER QUADRANT PAIN 07/11/2018 LOGAN SNELL APRN Ot Z68.42 BODY MASS INDEX (BMI) 45.0-49.9, ADULT 07/11/2018 LOGAN SNELL APRN Ot Z79.82 ASSISTED (CURRENT) USE OF ASPIRIN 07/11/2018 LOGAN SNELL APRN Ot Z87.19 PERSONAL HISTORY OF OTHER DISEASES OF 07/11/2018 LOGAN SNELL APRN Ot Z87.442 PERSONAL HISTORY OF URINARY CALCULI 07/11/2018 LOGAN SNELL APRN Ot Z87.891 PERSONAL HISTORY OF NICOTINE DEPENDENCE 07/11/2018 LOGAN SNELL APRN Ot Z90.49 ACQUIRED ABSENCE OF OTHER SPECIFIED PART 07/11/2018 LOGAN SNELL APRN Ot Z98.890 OTHER SPECIFIED POSTPROCEDURAL STATES 07/14/2018 LOGAN SNELL APRN Ot E11 .9 TYPE 2 DIABETES MELLITUS WITHOUT COMPLIC 07/14/2018 LOGAN SNELL APRN Ot E66.01 MORBID (SEVERE) OBESITY DUE TO EXCESS CA 07/14/2018 LOGAN SNELL APRN Ot E78.00 PURE HYPERCHOLESTEROLEMIA, UNSPECIFIED 07/14/2018 LOGAN SNELL APRN Ot F31 .9 BIPOLAR DISORDER, UNSPECIFIED 07/14/2018 LOGAN SNELL APRN Ot F41 .9 ANXIETY DISORDER, UNSPECIFIED 07/14/2018 LOGAN SNELL APRN Ot G47.30 SLEEP APNEA, UNSPECIFIED 07/14/2018 LOGAN SNELL APRN Ot I10 ESSENTIAL (PRIMARY) HYPERTENSION 07/14/2018 LOGAN SNELL APRN Ot J44 .9 CHRONIC OBSTRUCTIVE PULMONARY DISEASE, U 07/14/2018 LOGAN SNELL APRN Ot K21 .9 GASTRO-ESOPHAGEAL REFLUX DISEASE WITHOUT 07/14/2018 LOGAN SNELL APRN Ot N39 .0 URINARY TRACT INFECTION, SITE NOT SPECIF 07/14/2018 LOGAN SNELL APRN Ot R10.32 LEFT LOWER QUADRANT PAIN 07/14/2018 LOGAN SNELL APRN Ot Z68.42 BODY MASS INDEX (BMI) 45.0-49.9, ADULT 07/14/2018 LOGAN SNELL APRN Ot Z79.82 ASSISTED (CURRENT) USE OF ASPIRIN 07/14/2018 LOGAN SNELL APRN Ot Z87.19 PERSONAL HISTORY OF OTHER DISEASES OF 07/14/2018 LOGAN SNELL APRN Ot Z87.442 PERSONAL HISTORY OF URINARY CALCULI 07/14/2018 LOGAN SNELL APRN Ot Z87.891 PERSONAL HISTORY OF NICOTINE DEPENDENCE 07/14/2018 LOGAN SNELL APRN Ot Z90.49 ACQUIRED ABSENCE OF OTHER SPECIFIED PART 07/14/2018 LOGAN SNELL APRN Ot Z98.890 OTHER SPECIFIED POSTPROCEDURAL STATES 07/17/2018 LOGAN SNELL APRN Ot E11 .9 TYPE 2 DIABETES MELLITUS WITHOUT COMPLIC 07/17/2018 LOGAN SNELL APRN Ot E66.01 MORBID (SEVERE) OBESITY DUE TO EXCESS CA 07/17/2018 LOGAN SNELL APRN Ot E78.00 PURE HYPERCHOLESTEROLEMIA, UNSPECIFIED 07/17/2018 LOGAN SNELL APRN Ot F31 .9 BIPOLAR DISORDER, UNSPECIFIED 07/17/2018 LOGAN SNELL APRN Ot F41 .9 ANXIETY DISORDER, UNSPECIFIED 07/17/2018 LOGAN SNELL APRN Ot G47.30 SLEEP APNEA, UNSPECIFIED 07/17/2018 LOGAN SNELL APRN Ot I10 ESSENTIAL (PRIMARY) HYPERTENSION 07/17/2018 LOGAN SNELL APRN Ot J44 .9 CHRONIC OBSTRUCTIVE PULMONARY DISEASE, U 07/17/2018 LOGAN SNELL APRN Ot K21 .9 GASTRO-ESOPHAGEAL REFLUX DISEASE WITHOUT 07/17/2018 LOGAN SNELL APRN Ot N39 .0 URINARY TRACT INFECTION, SITE NOT SPECIF 07/17/2018 LOGAN SNELL APRN Ot R10.32 LEFT LOWER QUADRANT PAIN 07/17/2018 LOGAN SNELL APRN Ot Z68.42 BODY MASS INDEX (BMI) 45.0-49.9, ADULT 07/17/2018 LOGAN SNELL APRN Ot Z79.82 CLICKER OPERATOR (CURRENT) USE OF ASPIRIN 07/17/2018 LOGAN SNELL APRN Ot Z87.19 PERSONAL HISTORY OF OTHER DISEASES OF TH 07/17/2018 LOGAN SNELL APRN Ot Z87.442 PERSONAL HISTORY OF URINARY CALCULI 07/17/2018 LOGAN SNELL APRN Ot Z87.891 PERSONAL HISTORY OF NICOTINE DEPENDENCE 07/17/2018 LOGAN SNELL APRN Ot Z90.49 ACQUIRED ABSENCE OF OTHER SPECIFIED PART 07/17/2018 LOGAN SNELL APRN Ot Z98.890 OTHER SPECIFIED POSTPROCEDURAL STATES 08/21/2018 LINO GONZALES MD Ot 592.0 CALCULUS OF KIDNEY 08/21/2018 LINO GONZALES MD Ot 592.0 CALCULUS OF KIDNEY 08/21/2018 LINO GONZALES MD Ot 789.0 3 ABDOMINAL PAIN, RIGHT LOWER QUADRANT 08/21/2018 LINO GONZALES MD Ot 793.5 NOSP (ABN) FINDINGS ON RADIOLOGICAL OT 08/21/2018 LINO GONZALES MD Ot 592.0 CALCULUS OF KIDNEY 08/21/2018 LINO GONZALES MD Ot V72.8 4 EXAM PRE-OPERATIVE NOS 08/21/2018 LINO GONZALES MD Ot 592.9 URINARY CALCULUS NOS 08/21/2018 JOANNE LENNON, [facility] [place] ([facility]) Ot Z02.71 ENCOUNTER FOR DISABILITY DETERMINATION 08/21/2018 LIBERTAD LENNON, M KRISTY Ot R42 DIZZINESS AND GIDDINESS 08/21/2018 PATEL MAURER MD Ot I12 .9 HYPERTENSIVE CHRONIC KIDNEY DISEASE W ST 08/21/2018 PATEL MAURER MD Ot N18 .3 CHRONIC KIDNEY DISEASE, STAGE 3 (MODERAT 08/21/2018 PATEL MAURER MD Ot N20 .0 CALCULUS OF KIDNEY 08/21/2018 PATEL MAURER MD Ot R60 .0 LOCALIZED EDEMA 08/21/2018 LINO GONZALES MD Ot N40.1 BENIGN PROSTATIC HYPERPLASIA WITH LOWER 08/21/2018 PATEL MAURER MD Ot N18 .3 CHRONIC KIDNEY DISEASE, STAGE 3 (MODERAT 08/21/2018 PATEL MAURER MD Ot N28 .1 CYST OF KIDNEY, ACQUIRED 08/21/2018 SALTY MENDEZ MD Ot E11. 22 TYPE 2 DIABETES MELLITUS W DIABETIC SUPERVISOR POLISHING 08/21/2018 SALTY MENDEZ MD Ot E66. 01 MORBID (SEVERE) OBESITY DUE TO EXCESS CA 08/21/2018 SALTY MENDEZ MD Ot E78. 00 PURE HYPERCHOLESTEROLEMIA, UNSPECIFIED 08/21/2018 SALTY MENDEZ MD Ot F31. 9 BIPOLAR DISORDER, UNSPECIFIED 08/21/2018 SALTY MENDEZ MD Ot F41. 9 ANXIETY DISORDER, UNSPECIFIED 08/21/2018 SALTY MENDEZ MD Ot G47. 30 SLEEP APNEA, UNSPECIFIED 08/21/2018 SALTY MENDEZ MD Ot I12. 9 HYPERTENSIVE CHRONIC KIDNEY DISEASE W ST 08/21/2018 SALTY MENDEZ MD Ot J44. 9 CHRONIC OBSTRUCTIVE PULMONARY DISEASE, U 08/21/2018 SALTY MENDEZ MD Ot K21. 9 GASTRO-ESOPHAGEAL REFLUX DISEASE WITHOUT 08/21/2018 SALTY MENDEZ MD Ot N18. 9 CHRONIC KIDNEY DISEASE, UNSPECIFIED 08/21/2018 SALTY MENDEZ MD Ot N39. 0 URINARY TRACT INFECTION, SITE NOT SPECIF 08/21/2018 SALTY MENDEZ MD Ot R30. 0 DYSURIA 08/21/2018 SALTY MENDEZ MD Ot Z79. 82 ASSISTED (CURRENT) USE OF ASPIRIN 08/21/2018 SALTY MENDEZ MD Ot Z87. 19 PERSONAL HISTORY OF OTHER DISEASES OF TH 08/21/2018 SALTY MENDEZ MD Ot Z87.440 PERSONAL HISTORY OF URINARY (TRACT) INFE 08/21/2018 SALTY MENDEZ MD Ot Z87.442 PERSONAL HISTORY OF URINARY CALCULI 08/21/2018 SALTY MENDEZ MD Ot Z87.891 PERSONAL HISTORY OF NICOTINE DEPENDENCE 08/21/2018 SALTY MENDEZ MD Ot Z90. 49 ACQUIRED ABSENCE OF OTHER SPECIFIED PART 08/21/2018 SALTY MENDEZ MD Ot Z98.890 OTHER SPECIFIED POSTPROCEDURAL STATES 08/24/2018 SALTY MENDEZ MD Ot E11. 22 TYPE 2 DIABETES MELLITUS W DIABETIC SUPERVISOR POLISHING 08/24/2018 SALTY MENDEZ MD Ot E66. 01 MORBID (SEVERE) OBESITY DUE TO EXCESS CA 08/24/2018 SALTY MENDEZ MD Ot E78. 00 PURE HYPERCHOLESTEROLEMIA, UNSPECIFIED 08/24/2018 SALTY MENDEZ MD Ot F31. 9 BIPOLAR DISORDER, UNSPECIFIED 08/24/2018 SALTY MENDEZ MD Ot F41. 9 ANXIETY DISORDER, UNSPECIFIED 08/24/2018 SALTY MENDEZ MD Ot G47. 30 SLEEP APNEA, UNSPECIFIED 08/24/2018 SALTY MENDEZ MD Ot I12. 9 HYPERTENSIVE CHRONIC KIDNEY DISEASE W ST 08/24/2018 SALTY MENDEZ MD, Ot J44. 9 CHRONIC OBSTRUCTIVE PULMONARY DISEASE, U 08/24/2018 SALTY MENDEZ MD Ot K21. 9 GASTRO-ESOPHAGEAL REFLUX DISEASE WITHOUT 08/24/2018 SALTY MENDEZ MD Ot N18. 9 CHRONIC KIDNEY DISEASE, UNSPECIFIED 08/24/2018 SALTY MENDEZ MD Ot N39. 0 URINARY TRACT INFECTION, SITE NOT SPECIF 08/24/2018 SALTY MENDEZ MD Ot R30. 0 DYSURIA 08/24/2018 SALTY MENDEZ MD, Ot Z79. 82 CLICKER OPERATOR (CURRENT) USE OF ASPIRIN 08/24/2018 SALTY MENDEZ MD, Ot Z87. 19 PERSONAL HISTORY OF OTHER DISEASES OF TH 08/24/2018 SALTY MENDEZ MD, Ot Z87.440 PERSONAL HISTORY OF URINARY (TRACT) INFE 08/24/2018 SALTY MENDEZ MD, Ot Z87.442 PERSONAL HISTORY OF URINARY CALCULI 08/24/2018 SALTY MENDEZ MD, Ot Z87.891 PERSONAL HISTORY OF NICOTINE DEPENDENCE 08/24/2018 SALTY MENDEZ MD Ot Z90. 49 ACQUIRED ABSENCE OF OTHER SPECIFIED PART 08/24/2018 SALTY MENDEZ MD, Ot Z98.890 OTHER SPECIFIED POSTPROCEDURAL STATES 09/14/2018 CHARLES CASTRO Reason For Visit M17.12 Unilateral primary osteoarthritis, left knee 09/14/2018 CHARLES CASTRO Final M17.1 2 Unilateral primary osteoarthritis, left knee 09/14/2018 CHARLES CASTRO Reason For Visit M25.562 Pain in left knee 09/19/2018 STAN CARREON MD Ot E11.9 TYPE 2 DIABETES MELLITUS WITHOUT COMPLIC 09/19/2018 STAN CARREON MD Ot E66.01 MORBID (SEVERE) OBESITY DUE TO EXCESS CA 09/19/2018 STAN CARREON MD Ot E78.00 PURE HYPERCHOLESTEROLEMIA, UNSPECIFIED 09/19/2018 STAN CARREON MD Ot F17.210 NICOTINE DEPENDENCE, CIGARETTES, UNCOMPL 09/19/2018 STAN CARREON MD Ot F31.9 BIPOLAR DISORDER, UNSPECIFIED 09/19/2018 STAN CARREON MD Ot F41.9 ANXIETY DISORDER, UNSPECIFIED 09/19/2018 STAN CARREON MD, Ot G47.30 SLEEP APNEA, UNSPECIFIED 09/19/2018 STAN CARREON MD Ot I10 ESSENTIAL (PRIMARY) HYPERTENSION 09/19/2018 STAN CARREON MD, Ot J40 BRONCHITIS, NOT SPECIFIED ACUTE OR CH 09/19/2018 STAN CARREON MD, Ot J44.9 CHRONIC OBSTRUCTIVE PULMONARY DISEASE, U 09/19/2018 STAN CARREON MD, Ot K21.9 GASTRO-ESOPHAGEAL REFLUX DISEASE WITHOUT 09/19/2018 STAN CARREON MD Ot R10.13 EPIGASTRIC PAIN 09/19/2018 STAN CARREON MD Ot Z79.82 CLICKER OPERATOR (CURRENT) USE OF ASPIRIN 09/19/2018 STAN CARREON MD, Ot Z87.19 PERSONAL HISTORY OF OTHER DISEASES OF TH 09/19/2018 STAN CARREON MD, Ot Z87.442 PERSONAL HISTORY OF URINARY CALCULI 09/19/2018 STAN CARREON MD Ot Z90.49 ACQUIRED ABSENCE OF OTHER SPECIFIED PART 09/25/2018 STAN CARREON MD Ot E11.9 TYPE 2 DIABETES MELLITUS WITHOUT COMPLIC 09/25/2018 STAN CARREON MD Ot E66.01 MORBID (SEVERE) OBESITY DUE TO EXCESS CA 09/25/2018 STAN CARREON MD Ot E78.00 PURE HYPERCHOLESTEROLEMIA, UNSPECIFIED 09/25/2018 STAN CARREON MD Ot F17.210 NICOTINE DEPENDENCE, CIGARETTES, UNCOMPL 09/25/2018 STAN CARREON MD Ot F31.9 BIPOLAR DISORDER, UNSPECIFIED 09/25/2018 STAN CARREON MD, Ot F41.9 ANXIETY DISORDER, UNSPECIFIED 09/25/2018 STAN CARREON MD Ot G47.30 SLEEP APNEA, UNSPECIFIED 09/25/2018 STAN CARREON MD Ot I10 ESSENTIAL (PRIMARY) HYPERTENSION 09/25/2018 STAN CARREON MD Ot J40 BRONCHITIS, NOT SPECIFIED ACUTE OR CH 09/25/2018 STAN CARREON MD, Ot J44.9 CHRONIC OBSTRUCTIVE PULMONARY DISEASE, U 09/25/2018 STAN CARREON MD Ot K21.9 GASTRO-ESOPHAGEAL REFLUX DISEASE WITHOUT 09/25/2018 STAN CARREON MD, Ot R10.13 EPIGASTRIC PAIN 09/25/2018 STAN CARREON MD, Ot Z79.82 ASSISTED (CURRENT) USE OF ASPIRIN 09/25/2018 STAN CARREON MD, Ot Z87.19 PERSONAL HISTORY OF OTHER DISEASES OF TH 09/25/2018 STAN CARREON MD, Ot Z87.442 PERSONAL HISTORY OF URINARY CALCULI 09/25/2018 STAN CARREON MD, Ot Z90.49 ACQUIRED ABSENCE OF OTHER SPECIFIED PART 11/05/2018 CHARLES CASTRO Reason For Visit M17.0 Bilateral primary osteoarthritis of knee 01/13/2019 STAN CARREON MD, Ot R05 COUGH 01/13/2019 STAN CARREON MD, Ot R06.02 SHORTNESS OF BREATH 01/13/2019 STAN CARREON MD, Ot R07.9 CHEST PAIN, UNSPECIFIED 01/13/2019 STAN CARREON MD, Ot R42 DIZZINESS AND GIDDINESS 01/15/2019 BLANK ELIZABETH MD, Ot E11.22 TYPE 2 DIABETES MELLITUS W DIABETIC SUPERVISOR POLISHING 01/15/2019 BLANK ELIZABETH MD, Ot E66.01 MORBID (SEVERE) OBESITY DUE TO EXCESS CA 01/15/2019 BLANK ELIZABETH MD, Ot E78 .5 HYPERLIPIDEMIA, UNSPECIFIED 01/15/2019 BLANK ELIZABETH MD, Ot F17.210 NICOTINE DEPENDENCE, CIGARETTES, UNCOMPL 01/15/2019 BLANK ELIZABETH MD, Ot G25.81 RESTLESS LEGS SYNDROME 01/15/2019 BLANK ELIZABETH MD, Ot G47.33 OBSTRUCTIVE SLEEP APNEA (ADULT) (PEDIATR 01/15/2019 BLANK ELIZABETH MD, Ot I12 .9 HYPERTENSIVE CHRONIC KIDNEY DISEASE W ST 01/15/2019 BLANK ELIZABETH MD, Ot J20 .9 ACUTE BRONCHITIS, UNSPECIFIED 01/15/2019 BLANK ELIZABETH MD, Ot J44 .9 CHRONIC OBSTRUCTIVE PULMONARY DISEASE, U 01/15/2019 BLANK ELIZABETH MD, Ot K21 .9 GASTRO-ESOPHAGEAL REFLUX DISEASE WITHOUT 01/15/2019 BLANK EILZABETH MD, Ot N18 .9 CHRONIC KIDNEY DISEASE, UNSPECIFIED 01/15/2019 CLARA MD, BLANK N Ot R07 .9 CHEST PAIN, UNSPECIFIED 01/15/2019 BLANK ELIZABETH MD, Ot Z68.42 BODY MASS INDEX (BMI) 45.0-49.9, ADULT 01/15/2019 BLANK ELIZABETH MD Ot Z79.82 ASSISTED (CURRENT) USE OF ASPIRIN 01/15/2019 BLANK ELIZABETH MD Ot Z79.899 OTHER ASSISTED (CURRENT) DRUG THERAPY 01/15/2019 BLANK ELIZABETH MD, Ot Z82 .3 FAMILY HISTORY OF STROKE 01/15/2019 BLANK ELIZABETH MD, Ot Z83 .3 FAMILY HISTORY OF DIABETES MELLITUS 01/15/2019 BLANK ELIZABETH MD Ot Z90.49 ACQUIRED ABSENCE OF OTHER SPECIFIED PART 01/17/2019 SALTY MENDEZ MD Ot A08. 4 VIRAL INTESTINAL INFECTION, UNSPECIFIED 01/17/2019 SALTY MENDEZ MD Ot E11. 9 TYPE 2 DIABETES MELLITUS WITHOUT COMPLIC 01/17/2019 SALTY MENDEZ MD Ot E66. 01 MORBID (SEVERE) OBESITY DUE TO EXCESS CA 01/17/2019 SALTY MENDEZ MD Ot E78. 00 PURE HYPERCHOLESTEROLEMIA, UNSPECIFIED 01/17/2019 SALTY MENDEZ MD Ot E78. 5 HYPERLIPIDEMIA, UNSPECIFIED 01/17/2019 SALTY MENDEZ MD Ot F31. 9 BIPOLAR DISORDER, UNSPECIFIED 01/17/2019 SALTY MENDEZ MD Ot F41. 9 ANXIETY DISORDER, UNSPECIFIED 01/17/2019 SALTY MENDEZ MD Ot G47. 30 SLEEP APNEA, UNSPECIFIED 01/17/2019 SALTY MENDEZ MD Ot I10 ESSENTIAL (PRIMARY) HYPERTENSION 01/17/2019 SALTY MENDEZ MD Ot I25. 10 ATHSCL HEART DISEASE OF [place] CORONARY 01/17/2019 SALTY MENDEZ MD Ot J44. 9 CHRONIC OBSTRUCTIVE PULMONARY DISEASE, U 01/17/2019 SALTY MENDEZ MD Ot K21. 9 GASTRO-ESOPHAGEAL REFLUX DISEASE WITHOUT 01/17/2019 SALTY MENDEZ MD Ot R10. 9 UNSPECIFIED ABDOMINAL PAIN 01/17/2019 SALTY MENDEZ MD Ot Z68. 42 BODY MASS INDEX (BMI) 45.0-49.9, ADULT 01/17/2019 SALTY MENDEZ MD Ot Z79. 82 ASSISTED (CURRENT) USE OF ASPIRIN 01/17/2019 SALTY MENDEZ MD Ot Z87.442 PERSONAL HISTORY OF URINARY CALCULI 01/17/2019 SALTY MENDEZ MD, Ot Z87.891 PERSONAL HISTORY OF NICOTINE DEPENDENCE 01/17/2019 SALTY MENDEZ MD Ot Z95. 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 Results Test Result Range Complete blood count (CBC) with automate d white blood cell (WBC) differential - 10/07/15 17:46 Blood leukocytes automated count (number/volume) 8.3 10*3/uL 4.3-11.0 Blood erythrocytes automated count (number/volume) 4.89 10*6/uL 4.35-5.85 Venous blood hemoglobin measurement (mass/volume) 15.4 g/dL 13.3-17.7 Blood hematocrit (volume fraction) 45 % 40-54 Automated erythrocyte mean corpuscular volume 92 [ foz_us] 80-99 Automated erythrocyte mean corpuscular h emoglobin (mass per erythrocyte) 32 pg 25-34 Automated erythrocyte mean corpuscular h emoglobin concentration measurement (mass/volume) 34 g/dL 32-36 Automated erythrocyte distribution width ratio 13. 4 % 10.0- 14.5 Automated blood platelet count (count/volume) 168 10*3/uL [...] 10*3 1.0-4.0 Blood monocytes automated count (number/volume) 0. 7 10*3 0.0-1.0 Automated eosinophil count 0.2 10*3/uL 0 .0-0.3 Automated blood basophil count (count/volume) 0.0 10*3/uL 0.0-0.1 PT panel in platelet poor plasma by coag ulation assay - 10/07/15 17:46 Prothrombin time (PT) in platelet poor plasma by coagu lation assay 12.0 s 12.2-14.7 INR in platelet poor plasma or blood by coagulation as say 0.9 0.8-1.4 Activated partial thromboplastin time (a PTT) in platelet poor plasma bycoagulation assay - 10/07/15 17:46 Activated partial thromboplastin time (a PTT) in platelet poor plasma bycoagulation assay 26 s 24-35 Comprehensive metabolic panel - 10/07/15 17:46 Serum or plasma sodium measurement (moles/volume) 139 mmol/L 135-145 Serum or plasma potassium measurement (moles/volume) 3.7 mmol/L 3.6-5.0 Serum or plasma chloride measurement (moles/volume) 107 mmol/L 98-107 Carbon dioxide 26 mmol/L 21-32 Serum or plasma anion gap determination (moles/volume) 6 mmol/L 5-14 Serum or plasma urea nitrogen measurement (mass/volume ) 12 mg/dL 7-18 Serum or plasma creatinine measurement (mass/volume) 1.44 mg/dL 0.60-1.30 Serum or plasma urea nitrogen/creatinine mass ratio 8 NRG Serum or plasma creatinine measurement w ith calculation of estimated glomerular filtration rate 53 NRG Serum or plasma glucose measurement (mass/volume) 126 mg/dL 70-105 Serum or plasma calcium measurement (mass/volume) 9.1 mg/dL 8.5-10.1 Serum or plasma total bilirubin measurement (mass/volu me) 0.3 mg/dL 0.1-1.0 Serum or plasma alkaline phosphatase bernice surement (enzymatic activity/volume) 55 U/L 40-136 Serum or plasma aspartate aminotransfera se measurement (enzymatic activity/volume) 23 U/L 5-34 Serum or plasma alanine aminotransferase measurement (enzymatic activity/volume) 33 U/L 0-55 Serum or plasma protein measurement (mass/volume) 5.9 g/dL 6.4-8.2 Serum or plasma albumin measurement (mass/volume) 3.8 g/dL 3.2-4.5 Magnesium - 10/07/15 17:46 Magnesium 1.8 mg/dL 1.8-2.4 Serum or plasma troponin i.cardiac measu rement (mass/volume) - 10/07/15 17:46 Serum or plasma troponin i.cardiac measurement (mass/v olume) < ng/mL <0.30 Myoglobin, serum - 10/07/15 17:46 Myoglobin, serum 77.7 ng/mL 10.0-92.0 Serum or plasma lithium measurement (mol es/volume) - 10/07/15 17:46 BNP level 26.7 pg/mL <100.0 Hemoglobin A1c - 10/07/15 17:46 Hemoglobin A1c 5.6 % 4.5-6.2 Complete blood count (CBC) with automate d white blood cell (WBC) differential - 01/26/16 23:39 Blood leukocytes automated count (number/volume) 11.6 10*3/uL 4.3-11.0 Blood erythrocytes automated count (number/volume) 5.34 10*6/uL 4.35-5.85 Venous blood hemoglobin measurement (mass/volume) 17.1 g/dL 13.3-17.7 Blood hematocrit (volume fraction) 49 % 40-54 Automated erythrocyte mean corpuscular volume 92 [ foz_us] 80-99 Automated erythrocyte mean corpuscular h emoglobin (mass per erythrocyte) 32 pg 25-34 Automated erythrocyte mean corpuscular h emoglobin concentration measurement (mass/volume) 35 g/dL 32-36 Automated erythrocyte distribution width ratio 14. 1 % 10.0- 14.5 Automated blood platelet count (count/volume) 171 10*3/uL [...] 10*3 1.0-4.0 Blood monocytes automated count (number/volume) 1. 2 10*3 0.0-1.0 Automated eosinophil count 0.2 10*3/uL 0 .0-0.3 Automated blood basophil count (count/volume) 0.1 10*3/uL 0.0-0.1 PT panel in platelet poor plasma by coag ulation assay - 01/26/16 23:39 Prothrombin time (PT) in platelet poor plasma by coagu lation assay 13.0 s 12.2-14.7 INR in platelet poor plasma or blood by coagulation as say 1.0 0.8-1.4 Activated partial thromboplastin time (a PTT) in platelet poor plasma bycoagulation assay - 01/26/16 23:39 Activated partial thromboplastin time (a PTT) in platelet poor plasma bycoagulation assay 28 s 24-35 Influenza virus A and B antigen detectio n - 01/26/16 23:55 FLU RESULT NEGATIVE FOR INFLUENZA A AND B ANTIGENS BY IA [facility] Comprehensive metabolic panel - 01/27/16 00:08 Serum or plasma sodium measurement (moles/volume) 137 mmol/L 135-145 Serum or plasma potassium measurement (moles/volume) 3.5 mmol/L 3.6-5.0 Serum or plasma chloride measurement (moles/volume) 108 mmol/L 98-107 Carbon dioxide 17 mmol/L 21-32 Serum or plasma anion gap determination (moles/volume) 12 mmol/L 5-14 Serum or plasma urea nitrogen measurement (mass/volume ) 17 mg/dL 7-18 Serum or plasma creatinine measurement (mass/volume) 1.45 mg/dL 0.60-1.30 Serum or plasma urea nitrogen/creatinine mass ratio 12 NRG Serum or plasma creatinine measurement w ith calculation of estimated glomerular filtration rate 52 NRG Serum or plasma glucose measurement (mass/volume) 212 mg/dL 70-105 Serum or plasma calcium measurement (mass/volume) 9.3 mg/dL 8.5-10.1 Serum or plasma total bilirubin measurement (mass/volu me) 0.4 mg/dL 0.1-1.0 Serum or plasma alkaline phosphatase bernice surement (enzymatic activity/volume) 62 U/L 40-136 Serum or plasma aspartate aminotransfera se measurement (enzymatic activity/volume) 27 U/L 5-34 Serum or plasma alanine aminotransferase measurement (enzymatic activity/volume) 40 U/L 0-55 Serum or plasma protein measurement (mass/volume) 6.4 g/dL 6.4-8.2 Serum or plasma albumin measurement (mass/volume) 4.1 g/dL 3.2-4.5 Magnesium - 01/27/16 00:08 Magnesium 2.0 mg/dL 1.8-2.4 Serum or plasma creatine kinase measurem ent (enzymatic activity/volume) - 01/27/16 00:08 Serum or plasma creatine kinase measurem ent (enzymatic activity/volume) 180 U/L 30-200 Serum or plasma lithium measurement (mol es/volume) - 01/27/16 00:08 BNP level < pg/mL <100.0 Serum or plasma creatine kinase MB measu rement (enzymatic activity/volume) - 01/27/16 00:08 Serum or plasma creatine kinase MB measu rement (enzymatic activity/volume) 2.9 ng/mL <6.6 Serum or plasma troponin i.cardiac measu rement (mass/volume) - 01/27/16 00:08 Serum or plasma troponin i.cardiac measurement (mass/v olume) < ng/mL <0.30 Complete urinalysis with reflex to cultu re - 05/28/16 21:02 Urine color determination YELLOW NRG Urine clarity determination SLIGHTLY CLOUDY NRG Urine pH measurement by test strip 7 5-9 Specific gravity of urine by test strip 1.010 1.016-1.022 Urine protein assay by test strip, semi-quantitative 2+ NEGATIVE Urine glucose detection by automated test strip 1+ NEGATIVE Erythrocytes detection in urine sediment by light micr oscopy NEGATIVE NEGATIVE Urine ketones detection by automated test strip NE GATIVE NEGATIVE Urine nitrite detection by test strip NEGATIVE NEGATIVE Urine total bilirubin detection by test strip NEGA TIVE NEGATIVE Urine urobilinogen measurement by automated test strip (mass/volume) NORMAL NORMAL Urine leukocyte esterase detection by dipstick 1+ NEGATIVE Automated urine sediment erythrocyte cou nt by microscopy (number/high power field) RARE NRG Automated urine sediment leukocyte count by microscopy (number/high power field) [HPF] NRG Bacteria detection in urine sediment by light microsco py LARGE NRG Squamous epithelial cells detection in u rine sediment by light microscopy 10-25 NRG Crystals detection in urine sediment by light microsco py NONE NRG Casts detection in urine sediment by light microscopy NONE NRG Mucus detection in urine sediment by light microscopy NEGATIVE NRG Complete urinalysis with reflex to culture YES NRG Bacterial urine culture - 05/28/16 21:02 Bacterial urine culture FOOTNOTE NRG Chlamydia DNA amp probe, urine - 7 21:02 Chlamydia DNA amp probe, urine Negative Negative Urine Neisseria gonorrhoeae DNA assay - 05/28/16 21:02 Gonorrhea amp DNA-urine Negative Negati ve Complete blood count (CBC) with automate d white blood cell (WBC) differential - 10/12/16 14:45 Blood leukocytes automated count (number/volume) 7.5 10*3/uL 4.3-11.0 Blood erythrocytes automated count (number/volume) 5.54 10*6/uL 4.35-5.85 Venous blood hemoglobin measurement (mass/volume) 16.8 g/dL 13.3-17.7 Blood hematocrit (volume fraction) 50 % 40-54 Automated erythrocyte mean corpuscular volume 91 [ foz_us] 80-99 Automated erythrocyte mean corpuscular h emoglobin (mass per erythrocyte) 30 pg 25-34 Automated erythrocyte mean corpuscular h emoglobin concentration measurement (mass/volume) 33 g/dL 32-36 Automated erythrocyte distribution width ratio 14. 9 % 10.0- 14.5 Automated blood platelet count (count/volume) 174 10*3/uL [...] 10*3 1.0-4.0 Blood monocytes automated count (number/volume) 0. 9 10*3 0.0-1.0 Automated eosinophil count 0.1 10*3/uL 0 .0-0.3 Automated blood basophil count (count/volume) 0.1 10*3/uL 0.0-0.1 PT panel in platelet poor plasma by coag ulation assay - 10/12/16 14:45 Prothrombin time (PT) in platelet poor plasma by coagu lation assay 11.8 s 12.2-14.7 INR in platelet poor plasma or blood by coagulation as say 0.9 0.8-1.4 Activated partial thromboplastin time (a PTT) in platelet poor plasma bycoagulation assay - 10/12/16 14:45 Activated partial thromboplastin time (a PTT) in platelet poor plasma bycoagulation assay 28 s 24-35 Blood lactic acid measurement (moles/vol ume) - 10/12/16 14:45 Blood lactic acid measurement [...] 5-14 Serum or plasma urea nitrogen measurement (mass/volume ) 12 mg/dL 7-18 Serum or plasma creatinine measurement (mass/volume) 1.42 mg/dL 0.60-1.30 Serum or plasma urea nitrogen/creatinine mass ratio 8 NRG Serum or plasma creatinine measurement w ith calculation of estimated glomerular filtration rate 54 NRG Serum or plasma glucose measurement (mass/volume) 121 mg/dL 70-105 Serum or plasma calcium measurement (mass/volume) 9.9 mg/dL 8.5-10.1 Serum or plasma total bilirubin measurement (mass/volu me) 0.5 mg/dL 0.1-1.0 Serum or plasma alkaline phosphatase bernice surement (enzymatic activity/volume) 63 U/L 40-136 Serum or plasma aspartate aminotransfera se measurement (enzymatic activity/volume) 27 U/L 5-34 Serum or plasma alanine aminotransferase measurement (enzymatic activity/volume) 40 U/L 0-55 Serum or plasma protein measurement (mass/volume) 7.2 g/dL 6.4-8.2 Serum or plasma albumin measurement (mass/volume) 4.3 g/dL 3.2-4.5 Bacterial blood culture - 10/12/16 14:45 Bacterial blood culture NG NRG Bacterial blood culture - 10/12/16 14:55 Bacterial blood culture NG NRG Complete blood count (CBC) with automate d white blood cell (WBC) differential - 10/13/16 00:21 Blood leukocytes automated count (number/volume) 8.5 10*3/uL 4.3-11.0 Blood erythrocytes automated count (number/volume) 5.41 10*6/uL 4.35-5.85 Venous blood hemoglobin measurement (mass/volume) 16.4 g/dL 13.3-17.7 Blood hematocrit (volume fraction) 49 % 40-54 Automated erythrocyte mean corpuscular volume 91 [ foz_us] 80-99 Automated erythrocyte mean corpuscular h emoglobin (mass per erythrocyte) 30 pg 25-34 Automated erythrocyte mean corpuscular h emoglobin concentration measurement (mass/volume) 33 g/dL 32-36 Automated erythrocyte distribution width ratio 14. 5 % 10.0- 14.5 Automated blood platelet count (count/volume) 180 10*3/uL [...] 10*3 1.0-4.0 Blood monocytes automated count (number/volume) 1. 1 10*3 0.0-1.0 Automated eosinophil count 0.1 10*3/uL 0 .0-0.3 Automated blood basophil count (count/volume) 0.1 10*3/uL 0.0-0.1 Blood lactic acid measurement (moles/vol ume) - 10/13/16 00:21 Blood lactic acid measurement [...] 5-14 Serum or plasma urea nitrogen measurement (mass/volume ) 13 mg/dL 7-18 Serum or plasma creatinine measurement (mass/volume) 1.47 mg/dL 0.60-1.30 Serum or plasma urea nitrogen/creatinine mass ratio 9 NRG Serum or plasma creatinine measurement w ith calculation of estimated glomerular filtration rate 52 NRG Serum or plasma glucose measurement (mass/volume) 132 mg/dL 70-105 Serum or plasma calcium measurement (mass/volume) 9.5 mg/dL 8.5-10.1 Serum or plasma total bilirubin measurement (mass/volu me) 0.5 mg/dL 0.1-1.0 Serum or plasma alkaline phosphatase bernice surement (enzymatic activity/volume) 66 U/L 40-136 Serum or plasma aspartate aminotransfera se measurement (enzymatic activity/volume) 33 U/L 5-34 Serum or plasma alanine aminotransferase measurement (enzymatic activity/volume) 43 U/L 0-55 Serum or plasma protein measurement (mass/volume) 7.2 g/dL 6.4-8.2 Serum or plasma albumin measurement (mass/volume) 4.2 g/dL 3.2-4.5 PT panel in platelet poor plasma by coag ulation assay - 10/13/16 00:21 Prothrombin time (PT) in platelet poor plasma by coagu lation assay 12.3 s 12.2-14.7 INR in platelet poor plasma or blood by coagulation as say 0.9 0.8-1.4 Activated partial thromboplastin time (a PTT) in platelet poor plasma bycoagulation assay - 10/13/16 00:21 Activated partial thromboplastin time (a PTT) in platelet poor plasma bycoagulation assay 31 s 24-35 Bacterial blood culture - 10/13/16 00:21 Bacterial blood culture NG NRG Bacterial blood culture - 10/13/16 00:50 Bacterial blood culture NG NRG Complete urinalysis with reflex to cultu re - 10/13/16 01:14 Urine color determination YELLOW NRG Urine clarity determination CLEAR NR G Urine pH measurement by test strip 7 5-9 Specific gravity of urine by test strip 1.010 1.016-1.022 Urine protein assay by test strip, semi-quantitative 1+ NEGATIVE Urine glucose detection by automated test strip NE GATIVE NEGATIVE Erythrocytes detection in urine sediment by light micr oscopy 2+ NEGATIVE Urine ketones detection by automated test strip NE GATIVE NEGATIVE Urine nitrite detection by test strip NEGATIVE NEGATIVE Urine total bilirubin detection by test strip NEGA TIVE NEGATIVE Urine urobilinogen measurement by automated test strip (mass/volume) NORMAL NORMAL Urine leukocyte esterase detection by dipstick 3+ NEGATIVE Automated urine sediment erythrocyte cou nt by microscopy (number/high power field) [HPF] NRG Automated urine sediment leukocyte count by microscopy (number/high power field) [HPF] NRG Bacteria detection in urine sediment by light microsco py FEW NRG Squamous epithelial cells detection in u rine sediment by light microscopy 0-2 NRG Crystals detection in urine sediment by light microsco py NONE NRG Casts detection in urine sediment by light microscopy NONE NRG Mucus detection in urine sediment by light microscopy NEGATIVE NRG Complete urinalysis with reflex to culture YES NRG Bacterial urine culture - 10/13/16 01:14 Bacterial urine culture [id number] NRG COLONY COUNT <10,000 NRG Complete blood count (CBC) with automate d white blood cell (WBC) differential - 10/16/16 16:40 Blood leukocytes automated count (number/volume) 7.8 10*3/uL 4.3-11.0 Blood erythrocytes automated count (number/volume) 5.34 10*6/uL 4.35-5.85 Venous blood hemoglobin measurement (mass/volume) 16.1 g/dL 13.3-17.7 Blood hematocrit (volume fraction) 48 % 40-54 Automated erythrocyte mean corpuscular volume 91 [ foz_us] 80-99 Automated erythrocyte mean corpuscular h emoglobin (mass per erythrocyte) 30 pg 25-34 Automated erythrocyte mean corpuscular h emoglobin concentration measurement (mass/volume) 33 g/dL 32-36 Automated erythrocyte distribution width ratio 14. 6 % 10.0- 14.5 Automated blood platelet count (count/volume) 197 10*3/uL [...] 10*3 1.0-4.0 Blood monocytes automated count (number/volume) 0. 7 10*3 0.0-1.0 Automated eosinophil count 0.2 10*3/uL 0 .0-0.3 Automated blood basophil count (count/volume) 0.1 10*3/uL 0.0-0.1 PT panel in platelet poor plasma by coag ulation assay - 10/16/16 16:40 Prothrombin time (PT) in platelet poor plasma by coagu lation assay 11.7 s 12.2-14.7 INR in platelet poor plasma or blood by coagulation as say 0.9 0.8-1.4 Activated partial thromboplastin time (a PTT) in platelet poor plasma bycoagulation assay - 10/16/16 16:40 Activated partial thromboplastin time (a PTT) in platelet poor plasma bycoagulation assay 31 s 24-35 Fibrin D-dimer FEU measurement in platel et poor plasma (mass/volume) - 10/16/16 16:40 Fibrin D-dimer FEU measurement in platelet [...] 5-14 Serum or plasma urea nitrogen measurement (mass/volume ) 17 mg/dL 7-18 Serum or plasma creatinine measurement (mass/volume) 1.57 mg/dL 0.60-1.30 Serum or plasma urea nitrogen/creatinine mass ratio 11 NRG Serum or plasma creatinine measurement w ith calculation of estimated glomerular filtration rate 48 NRG Serum or plasma glucose measurement (mass/volume) 129 mg/dL 70-105 Serum or plasma calcium measurement (mass/volume) 9.4 mg/dL 8.5-10.1 Serum or plasma total bilirubin measurement (mass/volu me) 0.3 mg/dL 0.1-1.0 Serum or plasma alkaline phosphatase bernice surement (enzymatic activity/volume) 67 U/L 40-136 Serum or plasma aspartate aminotransfera se measurement (enzymatic activity/volume) 51 U/L 5-34 Serum or plasma alanine aminotransferase measurement (enzymatic activity/volume) 58 U/L 0-55 Serum or plasma protein measurement (mass/volume) 7.3 g/dL 6.4-8.2 Serum or plasma albumin measurement (mass/volume) 4.2 g/dL 3.2-4.5 Magnesium - 10/16/16 16:40 Magnesium 2.6 mg/dL 1.8-2.4 Serum or plasma troponin i.cardiac measu rement (mass/volume) - 10/16/16 16:40 Serum or plasma troponin i.cardiac measurement (mass/v olume) < ng/mL <0.30 Myoglobin, serum - 10/16/16 16:40 Myoglobin, serum 100.5 ng/mL 10.0-92.0 Serum or plasma lithium measurement (mol es/volume) - 10/16/16 16:40 BNP level < pg/mL <100.0 Complete blood count (CBC) with automate d white blood cell (WBC) differential - 03/20/17 10:00 Blood leukocytes automated count (number/volume) 14.0 10*3/uL 4.3-11.0 Blood erythrocytes automated count (number/volume) 4.88 10*6/uL 4.35-5.85 Venous blood hemoglobin measurement (mass/volume) 15.2 g/dL 13.3-17.7 Blood hematocrit (volume fraction) 45 % 40-54 Automated erythrocyte mean corpuscular volume 91 [ foz_us] 80-99 Automated erythrocyte mean corpuscular h emoglobin (mass per erythrocyte) 31 pg 25-34 Automated erythrocyte mean corpuscular h emoglobin concentration measurement (mass/volume) 34 g/dL 32-36 Automated erythrocyte distribution width ratio 14. 4 % 10.0- 14.5 Automated blood platelet count (count/volume) 195 10*3/uL [...] 10*3 1.0-4.0 Blood monocytes automated count (number/volume) 1. 0 10*3 0.0-1.0 Automated eosinophil count 0.2 10*3/uL 0 .0-0.3 Automated blood basophil count (count/volume) 0.1 10*3/uL 0.0-0.1 PT panel in platelet poor plasma by coag ulation assay - 03/20/17 10:00 Prothrombin time (PT) in platelet poor plasma by coagu lation assay 12.1 s 12.2-14.7 INR in platelet poor plasma or blood by coagulation as say 0.9 0.8-1.4 Activated partial thromboplastin time (a PTT) in platelet poor plasma bycoagulation assay - 03/20/17 10:00 Activated partial thromboplastin time (a PTT) in platelet poor plasma bycoagulation assay 24 s 24-35 Serum or plasma lithium measurement (mol es/volume) - 03/20/17 10:00 BNP level < pg/mL <100.0 Comprehensive metabolic panel - 03/20/17 10:55 Serum or plasma sodium measurement (moles/volume) 139 mmol/L 135-145 Serum or plasma potassium measurement (moles/volume) 3.7 mmol/L 3.6-5.0 Serum or plasma chloride measurement (moles/volume) 109 mmol/L 98-107 Carbon dioxide 20 mmol/L 21-32 Serum or plasma anion gap determination (moles/volume) 10 mmol/L 5-14 Serum or plasma urea nitrogen measurement (mass/volume ) 11 mg/dL 7-18 Serum or plasma creatinine measurement (mass/volume) 1.29 mg/dL 0.60-1.30 Serum or plasma urea nitrogen/creatinine mass ratio 9 NRG Serum or plasma creatinine measurement w ith calculation of estimated glomerular filtration rate 60 NRG Serum or plasma glucose measurement (mass/volume) 112 mg/dL 70-105 Serum or plasma calcium measurement (mass/volume) 9.2 mg/dL 8.5-10.1 Serum or plasma total bilirubin measurement (mass/volu me) 0.4 mg/dL 0.1-1.0 Serum or plasma alkaline phosphatase bernice surement (enzymatic activity/volume) 55 U/L 40-136 Serum or plasma aspartate aminotransfera se measurement (enzymatic activity/volume) 27 U/L 5-34 Serum or plasma alanine aminotransferase measurement (enzymatic activity/volume) 44 U/L 0-55 Serum or plasma protein measurement (mass/volume) 6.5 g/dL 6.4-8.2 Serum or plasma albumin measurement (mass/volume) 4.0 g/dL 3.2-4.5 Magnesium - 03/20/17 10:55 Magnesium 1.9 mg/dL 1.8-2.4 Serum or plasma creatine kinase measurem ent (enzymatic activity/volume) - 03/20/17 10:55 Serum or plasma creatine kinase measurem ent (enzymatic activity/volume) 167 U/L 30-200 Serum or plasma creatine kinase MB measu rement (enzymatic activity/volume) - 03/20/17 10:55 Serum or plasma creatine kinase MB measu rement (enzymatic activity/volume) 3.6 ng/mL <6.6 Serum or plasma troponin i.cardiac measu rement (mass/volume) - 03/20/17 10:55 Serum or plasma troponin i.cardiac measurement (mass/v olume) < ng/mL <0.30 Serum or plasma ethanol measurement (mas s/volume) - 03/20/17 10:55 Serum or plasma ethanol measurement (mass/volume) < mg/dL <10 Serum or plasma amylase measurement (enz ymatic activity/volume) - 03/20/17 10:55 Serum or plasma amylase measurement (enzymatic activit y/volume) 36 U/L 25-125 Lipase - 03/20/17 10:55 Lipase 38 U/L 8-78 Urine drug screening test - 03/20/17 12: 21 Urine phencyclidine detection by screening method NEGATIVE NEGATIVE Urine benzodiazepines detection by screening method NEGATIVE NEGATIVE Urine cocaine detection NEGATIVE NEGATI VE Urine amphetamines detection by screening method N EGATIVE NEGATIVE Urine methamphetamine detection by screening method NEGATIVE NEGATIVE Urine cannabinoids detection by screening method N EGATIVE NEGATIVE Urine opiates detection by screening method NEGATI VE NEGATIVE Urine barbiturates detection NEGATIVE N EGATIVE Screening urine tricyclic antidepressants detection NEGATIVE NEGATIVE Urine methadone detection by screening method NEGA TIVE NEGATIVE Urine oxycodone detection NEGATIVE NEGA TIVE Urine propoxyphene detection NEGATIVE N EGATIVE Complete urinalysis with reflex to cultu re - 03/20/17 12:21 Urine color determination YELLOW NRG Urine clarity determination CLEAR NR G Urine pH measurement by test strip 7 5-9 Specific gravity of urine by test strip 1.010 1.016-1.022 Urine protein assay by test strip, semi-quantitative 1+ NEGATIVE Urine glucose detection by automated test strip NE GATIVE NEGATIVE Erythrocytes detection in urine sediment by light micr oscopy 1+ NEGATIVE Urine ketones detection by automated test strip NE GATIVE NEGATIVE Urine nitrite detection by test strip POSITIVE NEGATIVE Urine total bilirubin detection by test strip NEGA TIVE NEGATIVE Urine urobilinogen measurement by automated test strip (mass/volume) NORMAL NORMAL Urine leukocyte esterase detection by dipstick 2+ NEGATIVE Automated urine sediment erythrocyte cou nt by microscopy (number/high power field) [HPF] NRG Automated urine sediment leukocyte count by microscopy (number/high power field) [HPF] NRG Bacteria detection in urine sediment by light microsco py LARGE NRG Crystals detection in urine sediment by light microsco py NONE NRG Casts detection in urine sediment by light microscopy NONE NRG Mucus detection in urine sediment by light microscopy NEGATIVE NRG Complete urinalysis with reflex to culture YES NRG Bacterial urine culture - 03/20/17 12:21 Bacterial urine culture [id number] NRG COLONY COUNT >100,000/ML NRG FTX;REPORTABLE SENSITIVITY REPORTED 03/21 17:00 NRG FREE TEXT ENTRY 3 MIXED GRAM POSITIVE ABDIRAHMAN <10,00 0/ML NRG Bacterial susceptibility panel - 8 12:21 Gentamicin susceptibility test by minimum inhibitory c oncentration <= NRG Trimethoprim/sulfamethoxazole susceptibi lity test by minimum inhibitoryconcentration S NRG Ampicillin susceptibility test by minimum inhibitory c oncentration >= NRG Tobramycin susceptibility test by minimum inhibitory c oncentration <= NRG Cefazolin susceptibility test by minimum inhibitory co ncentration <= NRG Ceftriaxone susceptibility test by minimum inhibitory concentration <= NRG Ampicillin/sulbactam susceptibility test by minimum inhibitory concentration S NRG Piperacillin/tazobactam susceptibility t est by minimum inhibitory concentration S NRG Ciprofloxacin susceptibility test by minimum inhibitor y concentration <= NRG Meropenem susceptibility test by minimum inhibitory co ncentration <= NRG Nitrofurantoin susceptibility test by mi nimum inhibitory concentration <= NRG Aztreonam susceptibility test by minimum inhibitory co ncentration <= NRG Extended spectrum beta lactamase (ESBL) producing bacteria susceptibility test by minimum inhibitory concentration - NRG Complete blood count (CBC) with automate d white blood cell (WBC) differential - 04/27/17 18:35 Blood leukocytes automated count (number/volume) 7.8 10*3/uL 4.3-11.0 Blood erythrocytes automated count (number/volume) 4.85 10*6/uL 4.35-5.85 Venous blood hemoglobin measurement (mass/volume) 15.1 g/dL 13.3-17.7 Blood hematocrit (volume fraction) 45 % 40-54 Automated erythrocyte mean corpuscular volume 92 [ foz_us] 80-99 Automated erythrocyte mean corpuscular h emoglobin (mass per erythrocyte) 31 pg 25-34 Automated erythrocyte mean corpuscular h emoglobin concentration measurement (mass/volume) 34 g/dL 32-36 Automated erythrocyte distribution width ratio 14. 3 % 10.0- 14.5 Automated blood platelet count (count/volume) 182 10*3/uL [...] 10*3 1.0-4.0 Blood monocytes automated count (number/volume) 0. 8 10*3 0.0-1.0 Automated eosinophil count 0.2 10*3/uL 0 .0-0.3 Automated blood basophil count (count/volume) 0.0 10*3/uL 0.0-0.1 PT panel in platelet poor plasma by coag ulation assay - 04/27/17 18:35 Prothrombin time (PT) in platelet poor plasma by coagu lation assay 12.8 s 12.2-14.7 INR in platelet poor plasma or blood by coagulation as say 1.0 0.8-1.4 Activated partial thromboplastin time (a PTT) in platelet poor plasma bycoagulation assay - 04/27/17 18:35 Activated partial thromboplastin time (a PTT) in platelet poor plasma bycoagulation assay 28 s 24-35 Comprehensive metabolic panel - 04/27/17 18:35 Serum or plasma sodium measurement (moles/volume) 139 mmol/L 135-145 Serum or plasma potassium measurement (moles/volume) 3.8 mmol/L 3.6-5.0 Serum or plasma chloride measurement (moles/volume) 109 mmol/L 98-107 Carbon dioxide 19 mmol/L 21-32 Serum or plasma anion gap determination (moles/volume) 11 mmol/L 5-14 Serum or plasma urea nitrogen measurement (mass/volume ) 12 mg/dL 7-18 Serum or plasma creatinine measurement (mass/volume) 1.48 mg/dL 0.60-1.30 Serum or plasma urea nitrogen/creatinine mass ratio 8 NRG Serum or plasma creatinine measurement w ith calculation of estimated glomerular filtration rate 51 NRG Serum or plasma glucose measurement (mass/volume) 126 mg/dL 70-105 Serum or plasma calcium measurement (mass/volume) 9.4 mg/dL 8.5-10.1 Serum or plasma total bilirubin measurement (mass/volu me) 0.4 mg/dL 0.1-1.0 Serum or plasma alkaline phosphatase bernice surement (enzymatic activity/volume) 50 U/L 40-136 Serum or plasma aspartate aminotransfera se measurement (enzymatic activity/volume) 31 U/L 5-34 Serum or plasma alanine aminotransferase measurement (enzymatic activity/volume) 38 U/L 0-55 Serum or plasma protein measurement (mass/volume) 6.3 g/dL 6.4-8.2 Serum or plasma albumin measurement (mass/volume) 4.0 g/dL 3.2-4.5 Serum or plasma creatine kinase measurem ent (enzymatic activity/volume) - 04/27/17 18:35 Serum or plasma creatine kinase measurem ent (enzymatic activity/volume) 121 U/L 30-200 Serum or plasma creatine kinase MB measu rement (enzymatic activity/volume) - 04/27/17 18:35 Serum or plasma creatine kinase MB measu rement (enzymatic activity/volume) 2.9 ng/mL <6.6 Serum or plasma troponin i.cardiac measu rement (mass/volume) - 04/27/17 18:35 Serum or plasma troponin i.cardiac measurement (mass/v olume) < ng/mL <0.30 Serum or plasma amylase measurement (enz ymatic activity/volume) - 04/27/17 18:35 Serum or plasma amylase measurement (enzymatic activit y/volume) 33 U/L 25-125 Lipase - 04/27/17 18:35 Lipase 36 U/L 8-78 Serum or plasma lithium measurement (mol es/volume) - 04/27/17 18:35 BNP level < pg/mL <100.0 Urine drug screening test - 04/27/17 19: 09 Urine phencyclidine detection by screening method NEGATIVE NEGATIVE Urine benzodiazepines detection by screening method NEGATIVE NEGATIVE Urine cocaine detection NEGATIVE NEGATI VE Urine amphetamines detection by screening method N EGATIVE NEGATIVE Urine methamphetamine detection by screening method NEGATIVE NEGATIVE Urine cannabinoids detection by screening method N EGATIVE NEGATIVE Urine opiates detection by screening method NEGATI VE NEGATIVE Urine barbiturates detection NEGATIVE N EGATIVE Screening urine tricyclic antidepressants detection POSITIVE NEGATIVE Urine methadone detection by screening method NEGA TIVE NEGATIVE Urine oxycodone detection NEGATIVE NEGA TIVE Urine propoxyphene detection NEGATIVE N EGATIVE Complete urinalysis with reflex to cultu re - 04/27/17 19:09 Urine color determination YELLOW NRG Urine clarity determination VERY CLOUDY NRG Urine pH measurement by test strip 7 5-9 Specific gravity of urine by test strip 1.015 1.016-1.022 Urine protein assay by test strip, semi-quantitative 1+ NEGATIVE Urine glucose detection by automated test strip NE GATIVE NEGATIVE Erythrocytes detection in urine sediment by light micr oscopy 1+ NEGATIVE Urine ketones detection by automated test strip NE GATIVE NEGATIVE Urine nitrite detection by test strip NEGATIVE NEGATIVE Urine total bilirubin detection by test strip NEGA TIVE NEGATIVE Urine urobilinogen measurement by automated test strip (mass/volume) NORMAL NORMAL Urine leukocyte esterase detection by dipstick 1+ NEGATIVE Automated urine sediment erythrocyte cou nt by microscopy (number/high power field) [HPF] NRG Automated urine sediment leukocyte count by microscopy (number/high power field) [HPF] NRG Bacteria detection in urine sediment by light microsco py NEGATIVE NRG Squamous epithelial cells detection in u rine sediment by light microscopy >50 NRG Crystals detection in urine sediment by light microsco py PRESENT NRG Casts detection in urine sediment by light microscopy PRESENT NRG Mucus detection in urine sediment by light microscopy NEGATIVE NRG Complete urinalysis with reflex to culture NO NRG Amorphous sediment detection in urine sediment by ligh t microscopy LARGE TARYN URATES NRG Hyaline casts detection in urine sediment by light ludmila roscopy 2-5 NRG Renal epithelial cells detection in urin e sediment by light microscopy NONE NRG Calcium oxalate crystals detection in ur ine sediment by light microscopy FEW NRG Complete blood count (CBC) with automate d white blood cell (WBC) differential - 07/03/17 18:40 Blood leukocytes automated count (number/volume) 8.0 10*3/uL 4.3-11.0 Blood erythrocytes automated count (number/volume) 5.01 10*6/uL 4.35-5.85 Venous blood hemoglobin measurement (mass/volume) 15.5 g/dL 13.3-17.7 Blood hematocrit (volume fraction) 46 % 40-54 Automated erythrocyte mean corpuscular volume 91 [ foz_us] 80-99 Automated erythrocyte mean corpuscular h emoglobin (mass per erythrocyte) 31 pg 25-34 Automated erythrocyte mean corpuscular h emoglobin concentration measurement (mass/volume) 34 g/dL 32-36 Automated erythrocyte distribution width ratio 14. 4 % 10.0- 14.5 Automated blood platelet count (count/volume) 177 10*3/uL [...] 10*3 1.0-4.0 Blood monocytes automated count (number/volume) 0. 8 10*3 0.0-1.0 Automated eosinophil count 0.2 10*3/uL 0 .0-0.3 Automated blood basophil count (count/volume) 0.1 10*3/uL 0.0-0.1 PT panel in platelet poor plasma by coag ulation assay - 07/03/17 18:40 Prothrombin time (PT) in platelet poor plasma by coagu lation assay 12.4 s 12.2-14.7 INR in platelet poor plasma or blood by coagulation as say 0.9 0.8-1.4 Activated partial thromboplastin time (a PTT) in platelet poor plasma bycoagulation assay - 07/03/17 18:40 Activated partial thromboplastin time (a PTT) in platelet poor plasma bycoagulation assay 28 s 24-35 Comprehensive metabolic panel - 07/03/17 18:40 Serum or plasma sodium measurement (moles/volume) 142 mmol/L 135-145 Serum or plasma potassium measurement (moles/volume) 3.8 mmol/L 3.6-5.0 Serum or plasma chloride measurement (moles/volume) 112 mmol/L 98-107 Carbon dioxide 22 mmol/L 21-32 Serum or plasma anion gap determination (moles/volume) 8 mmol/L 5-14 Serum or plasma urea nitrogen measurement (mass/volume ) 17 mg/dL 7-18 Serum or plasma creatinine measurement (mass/volume) 1.38 mg/dL 0.60-1.30 Serum or plasma urea nitrogen/creatinine mass ratio 12 NRG Serum or plasma creatinine measurement w ith calculation of estimated glomerular filtration rate 55 NRG Serum or plasma glucose measurement (mass/volume) 106 mg/dL 70-105 Serum or plasma calcium measurement (mass/volume) 9.3 mg/dL 8.5-10.1 Serum or plasma total bilirubin measurement (mass/volu me) 0.3 mg/dL 0.1-1.0 Serum or plasma alkaline phosphatase bernice surement (enzymatic activity/volume) 54 U/L 40-136 Serum or plasma aspartate aminotransfera se measurement (enzymatic activity/volume) 26 U/L 5-34 Serum or plasma alanine aminotransferase measurement (enzymatic activity/volume) 32 U/L 0-55 Serum or plasma protein measurement (mass/volume) 7.1 g/dL 6.4-8.2 Serum or plasma albumin measurement (mass/volume) 4.4 g/dL 3.2-4.5 Magnesium - 07/03/17 18:40 Magnesium 2.2 mg/dL 1.8-2.4 Serum or plasma troponin i.cardiac measu rement (mass/volume) - 07/03/17 18:40 Serum or plasma troponin i.cardiac measurement (mass/v olume) < ng/mL <0.30 Myoglobin, serum - 07/03/17 18:40 Myoglobin, serum 71.6 ng/mL 10.0-92.0 Serum or plasma lithium measurement (mol es/volume) - 07/03/17 18:40 BNP level < pg/mL <100.0 Lipase - 07/03/17 18:40 Lipase 33 U/L 8-78 Urine drug screening test - 07/03/17 19: 45 Urine phencyclidine detection by screening method NEGATIVE NEGATIVE Urine benzodiazepines detection by screening method NEGATIVE NEGATIVE Urine cocaine detection NEGATIVE NEGATI VE Urine amphetamines detection by screening method N EGATIVE NEGATIVE Urine methamphetamine detection by screening method NEGATIVE NEGATIVE Urine cannabinoids detection by screening method N EGATIVE NEGATIVE Urine opiates detection by screening method NEGATI VE NEGATIVE Urine barbiturates detection NEGATIVE N EGATIVE Screening urine tricyclic antidepressants detection POSITIVE NEGATIVE Urine methadone detection by screening method NEGA TIVE NEGATIVE Urine oxycodone detection NEGATIVE NEGA TIVE Urine propoxyphene detection NEGATIVE N EGATIVE Serum or plasma troponin i.cardiac measu rement (mass/volume) - 07/04/17 00:38 Serum or plasma troponin i.cardiac measurement (mass/v olume) < ng/mL <0.30 Complete blood count (CBC) with automate d white blood cell (WBC) differential - 07/04/17 03:12 Blood leukocytes automated count (number/volume) 6.1 10*3/uL 4.3-11.0 Blood erythrocytes automated count (number/volume) 4.91 10*6/uL 4.35-5.85 Venous blood hemoglobin measurement (mass/volume) 15.2 g/dL 13.3-17.7 Blood hematocrit (volume fraction) 45 % 40-54 Automated erythrocyte mean corpuscular volume 91 [ foz_us] 80-99 Automated erythrocyte mean corpuscular h emoglobin (mass per erythrocyte) 31 pg 25-34 Automated erythrocyte mean corpuscular h emoglobin concentration measurement (mass/volume) 34 g/dL 32-36 Automated erythrocyte distribution width ratio 14. 9 % 10.0- 14.5 Automated blood platelet count (count/volume) 165 10*3/uL 130-400 Automated blood platelet mean volume measurement 10.9 [foz_us] 7.4-10.4 Automated blood neutrophils/100 leukocytes 62 % 42-75 Automated blood lymphocytes/100 leukocytes 24 % 12-44 Blood monocytes/100 leukocytes 11 % 0-12 Automated blood eosinophils/100 leukocytes 3 % 0-10 Automated blood basophils/100 leukocytes 1 % 0-10 Blood neutrophils automated count (number/volume) 3.8 10*3 1.8-7.8 Blood lymphocytes automated count (number/volume) 1.5 10*3 1.0-4.0 Blood monocytes automated count (number/volume) 0. 6 10*3 0.0-1.0 Automated eosinophil count 0.2 10*3/uL 0 .0-0.3 Automated blood basophil count (count/volume) 0.1 10*3/uL 0.0-0.1 Comprehensive metabolic panel - 07/04/17 03:12 Serum or plasma sodium measurement (moles/volume) 140 mmol/L 135-145 Serum or plasma potassium measurement (moles/volume) 3.5 mmol/L 3.6-5.0 Serum or plasma chloride measurement (moles/volume) 109 mmol/L 98-107 Carbon dioxide 19 mmol/L 21-32 Serum or plasma anion gap determination (moles/volume) 12 mmol/L 5-14 Serum or plasma urea nitrogen measurement (mass/volume ) 17 mg/dL 7-18 Serum or plasma creatinine measurement (mass/volume) 1.54 mg/dL 0.60-1.30 Serum or plasma urea nitrogen/creatinine mass ratio 11 NRG Serum or plasma creatinine measurement w ith calculation of estimated glomerular filtration rate 49 NRG Serum or plasma glucose measurement (mass/volume) 119 mg/dL 70-105 Serum or plasma calcium measurement (mass/volume) 9.0 mg/dL 8.5-10.1 Serum or plasma total bilirubin measurement (mass/volu me) 0.3 mg/dL 0.1-1.0 Serum or plasma alkaline phosphatase bernice surement (enzymatic activity/volume) 57 U/L 40-136 Serum or plasma aspartate aminotransfera se measurement (enzymatic activity/volume) 27 U/L 5-34 Serum or plasma alanine aminotransferase measurement (enzymatic activity/volume) 32 U/L 0-55 Serum or plasma protein measurement (mass/volume) 6.5 g/dL 6.4-8.2 Serum or plasma albumin measurement (mass/volume) 4.2 g/dL 3.2-4.5 Lipid 1996 panel - 07/04/17 03:12 Serum or plasma triglyceride measurement (mass/volume) 587 mg/dL <150 Serum or plasma cholesterol measurement (mass/volume) 174 mg/dL < 200 Serum or plasma cholesterol in HDL measurement (mass/v olume) 28 mg/dL 40-60 Cholesterol in LDL [mass/volume] in serum or plasma by direct assay 92 mg/dL 1-129 Serum or plasma cholesterol in VLDL measurement (mass/ volume) 117 mg/dL 5-40 Serum or plasma troponin i.cardiac measu rement (mass/volume) - 07/04/17 03:12 Serum or plasma troponin i.cardiac measurement (mass/v olume) < ng/mL <0.30 Serum or plasma troponin i.cardiac measu rement (mass/volume) - 07/04/17 06:35 Serum or plasma troponin i.cardiac measurement (mass/v olume) < ng/mL <0.30 Capillary blood glucose measurement by g lucometer (mass/volume) - 07/04/17 10:59 Capillary blood glucose measurement by glucometer (mas s/volume) 118 mg/dL 70-110 Capillary blood glucose measurement by g lucometer (mass/volume) - 07/04/17 17:40 Capillary blood glucose measurement by glucometer (mas s/volume) 117 mg/dL 70-110 Complete blood count (CBC) with automate d white blood cell (WBC) differential - 07/12/17 20:28 Blood leukocytes automated count (number/volume) 10.6 10*3/uL 4.3-11.0 Blood erythrocytes automated count (number/volume) 5.08 10*6/uL 4.35-5.85 Venous blood hemoglobin measurement (mass/volume) 15.9 g/dL 13.3-17.7 Blood hematocrit (volume fraction) 47 % 40-54 Automated erythrocyte mean corpuscular volume 92 [ foz_us] 80-99 Automated erythrocyte mean corpuscular h emoglobin (mass per erythrocyte) 31 pg 25-34 Automated erythrocyte mean corpuscular h emoglobin concentration measurement (mass/volume) 34 g/dL 32-36 Automated erythrocyte distribution width ratio 14. 9 % 10.0- 14.5 Automated blood platelet count (count/volume) 213 10*3/uL 130-400 Automated blood platelet mean volume measurement 10.6 [foz_us] 7.4-10.4 Automated blood neutrophils/100 leukocytes 79 % 42-75 Automated blood lymphocytes/100 leukocytes 14 % 12-44 Blood monocytes/100 leukocytes 5 % 0-12 Automated blood eosinophils/100 leukocytes 1 % 0-10 Automated blood basophils/100 leukocytes 1 % 0-10 Blood neutrophils automated count (number/volume) 8.4 10*3 1.8-7.8 Blood lymphocytes automated count (number/volume) 1.5 10*3 1.0-4.0 Blood monocytes automated count (number/volume) 0. 6 10*3 0.0-1.0 Automated eosinophil count 0.1 10*3/uL 0 .0-0.3 Automated blood basophil count (count/volume) 0.1 10*3/uL 0.0-0.1 Comprehensive metabolic panel - 07/12/17 20:28 Serum or plasma sodium measurement (moles/volume) 141 mmol/L 135-145 Serum or plasma potassium measurement (moles/volume) 4.7 mmol/L 3.6-5.0 Serum or plasma chloride measurement (moles/volume) 110 mmol/L 98-107 Carbon dioxide 21 mmol/L 21-32 Serum or plasma anion gap determination (moles/volume) 10 mmol/L 5-14 Serum or plasma urea nitrogen measurement (mass/volume ) 15 mg/dL 7-18 Serum or plasma creatinine measurement (mass/volume) 1.73 mg/dL 0.60-1.30 Serum or plasma urea nitrogen/creatinine mass ratio 9 NRG Serum or plasma creatinine measurement w ith calculation of estimated glomerular filtration rate 43 NRG Serum or plasma glucose measurement (mass/volume) 168 mg/dL 70-105 Serum or plasma calcium measurement (mass/volume) 9.4 mg/dL 8.5-10.1 Serum or plasma total bilirubin measurement (mass/volu me) 0.3 mg/dL 0.1-1.0 Serum or plasma alkaline phosphatase bernice surement (enzymatic activity/volume) 55 U/L 40-136 Serum or plasma aspartate aminotransfera se measurement (enzymatic activity/volume) 16 U/L 5-34 Serum or plasma alanine aminotransferase measurement (enzymatic activity/volume) 34 U/L 0-55 Serum or plasma protein measurement (mass/volume) 7.0 g/dL 6.4-8.2 Serum or plasma albumin measurement (mass/volume) 4.4 g/dL 3.2-4.5 Magnesium - 07/12/17 20:28 Magnesium 2.2 mg/dL 1.8-2.4 Serum or plasma troponin i.cardiac measu rement (mass/volume) - 07/12/17 20:28 Serum or plasma troponin i.cardiac measurement (mass/v olume) < ng/mL <0.30 Myoglobin, serum - 07/12/17 20:28 Myoglobin, serum 75.5 ng/mL 10.0-92.0 PT panel in platelet poor plasma by coag ulation assay - 07/12/17 20:28 Prothrombin time (PT) in platelet poor plasma by coagu lation assay 12.8 s 12.2-14.7 INR in platelet poor plasma or blood by coagulation as say 1.0 0.8-1.4 Activated partial thromboplastin time (a PTT) in platelet poor plasma bycoagulation assay - 07/12/17 20:28 Activated partial thromboplastin time (a PTT) in platelet poor plasma bycoagulation assay 26 s 24-35 Lipase - 07/12/17 20:28 Lipase 39 U/L 8-78 Complete blood count (CBC) with automate d white blood cell (WBC) differential - 08/20/17 12:43 Blood leukocytes automated count (number/volume) 10.7 10*3/uL 4.3-11.0 Blood erythrocytes automated count (number/volume) 5.03 10*6/uL 4.35-5.85 Venous blood hemoglobin measurement (mass/volume) 15.7 g/dL 13.3-17.7 Blood hematocrit (volume fraction) 45 % 40-54 Automated erythrocyte mean corpuscular volume 90 [ foz_us] 80-99 Automated erythrocyte mean corpuscular h emoglobin (mass per erythrocyte) 31 pg 25-34 Automated erythrocyte mean corpuscular h emoglobin concentration measurement (mass/volume) 35 g/dL 32-36 Automated erythrocyte distribution width ratio 14. 8 % 10.0- 14.5 Automated blood platelet count (count/volume) 183 10*3/uL 130-400 Automated blood platelet mean volume measurement 10.2 [foz_us] 7.4-10.4 Automated blood neutrophils/100 leukocytes 71 % 42-75 Automated blood lymphocytes/100 leukocytes 18 % 12-44 Blood monocytes/100 leukocytes 9 % 0-12 Automated blood eosinophils/100 leukocytes 2 % 0-10 Automated blood basophils/100 leukocytes 1 % 0-10 Blood neutrophils automated count (number/volume) 7.6 10*3 1.8-7.8 Blood lymphocytes automated count (number/volume) 1.9 10*3 1.0-4.0 Blood monocytes automated count (number/volume) 0. 9 10*3 0.0-1.0 Automated eosinophil count 0.2 10*3/uL 0 .0-0.3 Automated blood basophil count (count/volume) 0.1 10*3/uL 0.0-0.1 PT panel in platelet poor plasma by coag ulation assay - 08/20/17 12:43 Prothrombin time (PT) in platelet poor plasma by coagu lation assay 13.2 s 12.2-14.7 INR in platelet poor plasma or blood by coagulation as say 1.0 0.8-1.4 Activated partial thromboplastin time (a PTT) in platelet poor plasma bycoagulation assay - 08/20/17 12:43 Activated partial thromboplastin time (a PTT) in platelet poor plasma bycoagulation assay 26 s 24-35 Comprehensive metabolic panel - 08/20/17 12:43 Serum or plasma sodium measurement (moles/volume) 139 mmol/L 135-145 Serum or plasma potassium measurement (moles/volume) 3.7 mmol/L 3.6-5.0 Serum or plasma chloride measurement (moles/volume) 109 mmol/L 98-107 Carbon dioxide 18 mmol/L 21-32 Serum or plasma anion gap determination (moles/volume) 12 mmol/L 5-14 Serum or plasma urea nitrogen measurement (mass/volume ) 16 mg/dL 7-18 Serum or plasma creatinine measurement (mass/volume) 1.65 mg/dL 0.60-1.30 Serum or plasma urea nitrogen/creatinine mass ratio 10 NRG Serum or plasma creatinine measurement w ith calculation of estimated glomerular filtration rate 45 NRG Serum or plasma glucose measurement (mass/volume) 102 mg/dL 70-105 Serum or plasma calcium measurement (mass/volume) 10.2 mg/dL 8.5-10.1 Serum or plasma total bilirubin measurement (mass/volu me) 0.7 mg/dL 0.1-1.0 Serum or plasma alkaline phosphatase bernice surement (enzymatic activity/volume) 57 U/L 40-136 Serum or plasma aspartate aminotransfera se measurement (enzymatic activity/volume) 35 U/L 5-34 Serum or plasma alanine aminotransferase measurement (enzymatic activity/volume) 45 U/L 0-55 Serum or plasma protein measurement (mass/volume) 7.2 g/dL 6.4-8.2 Serum or plasma albumin measurement (mass/volume) 4.4 g/dL 3.2-4.5 Magnesium - 08/20/17 12:43 Magnesium 2.2 mg/dL 1.8-2.4 Serum or plasma troponin i.cardiac measu rement (mass/volume) - 08/20/17 12:43 Serum or plasma troponin i.cardiac measurement (mass/v olume) < ng/mL <0.30 Serum or plasma lithium measurement (mol es/volume) - 08/20/17 12:43 BNP level < pg/mL <100.0 Myoglobin, serum - 08/20/17 12:43 Myoglobin, serum 89.9 ng/mL 10.0-92.0 Hemoglobin A1c - 08/20/17 12:43 Blood hemoglobin A1C measurement (mass/volume) 5.8 % 4.0-5.6 MEAN BLOOD GLUCOSE 120 % <=126 Serum or plasma troponin i.cardiac measu rement (mass/volume) - 08/20/17 16:20 Serum or plasma troponin i.cardiac measurement (mass/v olume) < ng/mL <0.30 Complete blood count (CBC) with automate d white blood cell (WBC) differential - 08/24/17 23:50 Blood leukocytes automated count (number/volume) 10.6 10*3/uL 4.3-11.0 Blood erythrocytes automated count (number/volume) 4.89 10*6/uL 4.35-5.85 Venous blood hemoglobin measurement (mass/volume) 15.1 g/dL 13.3-17.7 Blood hematocrit (volume fraction) 45 % 40-54 Automated erythrocyte mean corpuscular volume 91 [ foz_us] 80-99 Automated erythrocyte mean corpuscular h emoglobin (mass per erythrocyte) 31 pg 25-34 Automated erythrocyte mean corpuscular h emoglobin concentration measurement (mass/volume) 34 g/dL 32-36 Automated erythrocyte distribution width ratio 14. 9 % 10.0- 14.5 Automated blood platelet count (count/volume) 190 10*3/uL 130-400 Automated blood platelet mean volume measurement 10.9 [foz_us] 7.4-10.4 Automated blood neutrophils/100 leukocytes 66 % 42-75 Automated blood lymphocytes/100 leukocytes 22 % 12-44 Blood monocytes/100 leukocytes 9 % 0-12 Automated blood eosinophils/100 leukocytes 2 % 0-10 Automated blood basophils/100 leukocytes 1 % 0-10 Blood neutrophils automated count (number/volume) 7.0 10*3 1.8-7.8 Blood lymphocytes automated count (number/volume) 2.4 10*3 1.0-4.0 Blood monocytes automated count (number/volume) 1. 0 10*3 0.0-1.0 Automated eosinophil count 0.2 10*3/uL 0 .0-0.3 Automated blood basophil count (count/volume) 0.1 10*3/uL 0.0-0.1 Comprehensive metabolic panel - 08/24/17 23:50 Serum or plasma sodium measurement (moles/volume) 139 mmol/L 135-145 Serum or plasma potassium measurement (moles/volume) 3.9 mmol/L 3.6-5.0 Serum or plasma chloride measurement (moles/volume) 110 mmol/L 98-107 Carbon dioxide 19 mmol/L 21-32 Serum or plasma anion gap determination (moles/volume) 10 mmol/L 5-14 Serum or plasma urea nitrogen measurement (mass/volume ) 14 mg/dL 7-18 Serum or plasma creatinine measurement (mass/volume) 1.71 mg/dL 0.60-1.30 Serum or plasma urea nitrogen/creatinine mass ratio 8 NRG Serum or plasma creatinine measurement w ith calculation of estimated glomerular filtration rate 43 NRG Serum or plasma glucose measurement (mass/volume) 131 mg/dL 70-105 Serum or plasma calcium measurement (mass/volume) 9.8 mg/dL 8.5-10.1 Serum or plasma total bilirubin measurement (mass/volu me) 0.4 mg/dL 0.1-1.0 Serum or plasma alkaline phosphatase bernice surement (enzymatic activity/volume) 67 U/L 40-136 Serum or plasma aspartate aminotransfera se measurement (enzymatic activity/volume) 28 U/L 5-34 Serum or plasma alanine aminotransferase measurement (enzymatic activity/volume) 42 U/L 0-55 Serum or plasma protein measurement (mass/volume) 6.9 g/dL 6.4-8.2 Serum or plasma albumin measurement (mass/volume) 4.2 g/dL 3.2-4.5 Serum or plasma troponin i.cardiac measu rement (mass/volume) - 08/24/17 23:50 Serum or plasma troponin i.cardiac measurement (mass/v olume) < ng/mL <0.30 Lipase - 08/24/17 23:50 Lipase 48 U/L 8-78 Serum or plasma lithium measurement (mol es/volume) - 08/24/17 23:50 BNP level < pg/mL <100.0 Complete urinalysis with reflex to cultu re - 08/25/17 00:20 Urine color determination YELLOW NRG Urine clarity determination CLOUDY NR G Urine pH measurement by test strip 7 5-9 Specific gravity of urine by test strip 1.010 1.016-1.022 Urine protein assay by test strip, semi-quantitative NEGATIVE NEGATIVE Urine glucose detection by automated test strip NE GATIVE NEGATIVE Erythrocytes detection in urine sediment by light micr oscopy NEGATIVE NEGATIVE Urine ketones detection by automated test strip NE GATIVE NEGATIVE Urine nitrite detection by test strip NEGATIVE NEGATIVE Urine total bilirubin detection by test strip NEGA TIVE NEGATIVE Urine urobilinogen measurement by automated test strip (mass/volume) NORMAL NORMAL Urine leukocyte esterase detection by dipstick 3+ NEGATIVE Automated urine sediment erythrocyte cou nt by microscopy (number/high power field) NONE NRG Automated urine sediment leukocyte count by microscopy (number/high power field) [HPF] NRG Bacteria detection in urine sediment by light microsco py FEW NRG Squamous epithelial cells detection in u rine sediment by light microscopy 5-10 NRG Crystals detection in urine sediment by light microsco py PRESENT NRG Casts detection in urine sediment by light microscopy PRESENT NRG Mucus detection in urine sediment by light microscopy NEGATIVE NRG Complete urinalysis with reflex to culture YES NRG Amorphous sediment detection in urine sediment by ligh t microscopy MOD TARYN PHOSPHATE NRG Hyaline casts detection in urine sediment by light ludmila roscopy RARE NRG Granular casts detection in urine sediment by light mi croscopy 2-5 NRG Bacterial urine culture - 08/25/17 00:20 Bacterial urine culture [id number] NRG COLONY COUNT >100,000/ML NRG FTX;REPORTABLE NO SUSCEPTIBILITY PERFORMED NRG Complete blood count (CBC) with automate d white blood cell (WBC) differential - 09/21/17 11:14 Blood leukocytes automated count (number/volume) 8.1 10*3/uL 4.3-11.0 Blood erythrocytes automated count (number/volume) 4.78 10*6/uL 4.35-5.85 Venous blood hemoglobin measurement (mass/volume) 15.3 g/dL 13.3-17.7 Blood hematocrit (volume fraction) 44 % 40-54 Automated erythrocyte mean corpuscular volume 92 [ foz_us] 80-99 Automated erythrocyte mean corpuscular h emoglobin (mass per erythrocyte) 32 pg 25-34 Automated erythrocyte mean corpuscular h emoglobin concentration measurement (mass/volume) 35 g/dL 32-36 Automated erythrocyte distribution width ratio 14. 6 % 10.0- 14.5 Automated blood platelet count (count/volume) 162 10*3/uL 130-400 Automated blood platelet mean volume measurement 10.8 [foz_us] 7.4-10.4 Automated blood neutrophils/100 leukocytes 64 % 42-75 Automated blood lymphocytes/100 leukocytes 23 % 12-44 Blood monocytes/100 leukocytes 10 % 0-12 Automated blood eosinophils/100 leukocytes 3 % 0-10 Automated blood basophils/100 leukocytes 1 % 0-10 Blood neutrophils automated count (number/volume) 5.2 10*3 1.8-7.8 Blood lymphocytes automated count (number/volume) 1.8 10*3 1.0-4.0 Blood monocytes automated count (number/volume) 0. 8 10*3 0.0-1.0 Automated eosinophil count 0.2 10*3/uL 0 .0-0.3 Automated blood basophil count (count/volume) 0.1 10*3/uL 0.0-0.1 Comprehensive metabolic panel - 09/21/17 11:14 Serum or plasma sodium measurement (moles/volume) 137 mmol/L 135-145 Serum or plasma potassium measurement (moles/volume) 3.6 mmol/L 3.6-5.0 Serum or plasma chloride measurement (moles/volume) 109 mmol/L 98-107 Carbon dioxide 19 mmol/L 21-32 Serum or plasma anion gap determination (moles/volume) 9 mmol/L 5-14 Serum or plasma urea nitrogen measurement (mass/volume ) 14 mg/dL 7-18 Serum or plasma creatinine measurement (mass/volume) 1.51 mg/dL 0.60-1.30 Serum or plasma urea nitrogen/creatinine mass ratio 9 NRG Serum or plasma creatinine measurement w ith calculation of estimated glomerular filtration rate 50 NRG Serum or plasma glucose measurement (mass/volume) 112 mg/dL 70-105 Serum or plasma calcium measurement (mass/volume) 9.5 mg/dL 8.5-10.1 Serum or plasma total bilirubin measurement (mass/volu me) 0.5 mg/dL 0.1-1.0 Serum or plasma alkaline phosphatase bernice surement (enzymatic activity/volume) 64 U/L 40-136 Serum or plasma aspartate aminotransfera se measurement (enzymatic activity/volume) 37 U/L 5-34 Serum or plasma alanine aminotransferase measurement (enzymatic activity/volume) 55 U/L 0-55 Serum or plasma protein measurement (mass/volume) 6.6 g/dL 6.4-8.2 Serum or plasma albumin measurement (mass/volume) 4.4 g/dL 3.2-4.5 Lipase - 09/21/17 11:14 Lipase 32 U/L 8-78 Complete urinalysis with reflex to cultu re - 10/03/17 17:32 Urine color determination YELLOW NRG Urine clarity determination VERY CLOUDY NRG Urine pH measurement by test strip 5 5-9 Specific gravity of urine by test strip 1.020 1.016-1.022 Urine protein assay by test strip, semi-quantitative 3+ NEGATIVE Urine glucose detection by automated test strip NE GATIVE NEGATIVE Erythrocytes detection in urine sediment by light micr oscopy 5+ NEGATIVE Urine ketones detection by automated test strip NE GATIVE NEGATIVE Urine nitrite detection by test strip POSITIVE NEGATIVE Urine total bilirubin detection by test strip NEGA TIVE NEGATIVE Urine urobilinogen measurement by automated test strip (mass/volume) NORMAL NORMAL Urine leukocyte esterase detection by dipstick 3+ NEGATIVE Automated urine sediment erythrocyte cou nt by microscopy (number/high power field) [facility] Automated urine sediment leukocyte count by microscopy (number/high power field) [HPF] NRG Bacteria detection in urine sediment by light microsco py TRACE NRG Squamous epithelial cells detection in u rine sediment by light microscopy NONE NRG Crystals detection in urine sediment by light microsco py NONE NRG Casts detection in urine sediment by light microscopy NONE NRG Mucus detection in urine sediment by light microscopy NEGATIVE NRG Complete urinalysis with reflex to culture YES NRG Bacterial urine culture - 10/03/17 17:32 Bacterial urine culture RML NRG COLONY COUNT . NRG Complete blood count (CBC) with automate d white blood cell (WBC) differential - 12/21/17 00:05 Blood leukocytes automated count (number/volume) 8.7 10*3/uL 4.3-11.0 Blood erythrocytes automated count (number/volume) 5.13 10*6/uL 4.35-5.85 Venous blood hemoglobin measurement (mass/volume) 15.8 g/dL 13.3-17.7 Blood hematocrit (volume fraction) 47 % 40-54 Automated erythrocyte mean corpuscular volume 91 [ foz_us] 80-99 Automated erythrocyte mean corpuscular h emoglobin (mass per erythrocyte) 31 pg 25-34 Automated erythrocyte mean corpuscular h emoglobin concentration measurement (mass/volume) 34 g/dL 32-36 Automated erythrocyte distribution width ratio 14. 4 % 10.0- 14.5 Automated blood platelet count (count/volume) 203 10*3/uL 130-400 Automated blood platelet mean volume measurement 10.5 [foz_us] 7.4-10.4 Automated blood neutrophils/100 leukocytes 59 % 42-75 Automated blood lymphocytes/100 leukocytes 28 % 12-44 Blood monocytes/100 leukocytes 11 % 0-12 Automated blood eosinophils/100 leukocytes 2 % 0-10 Automated blood basophils/100 leukocytes 1 % 0-10 Blood neutrophils automated count (number/volume) 5.1 10*3 1.8-7.8 Blood lymphocytes automated count (number/volume) 2.4 10*3 1.0-4.0 Blood monocytes automated count (number/volume) 0. 9 10*3 0.0-1.0 Automated eosinophil count 0.2 10*3/uL 0 .0-0.3 Automated blood basophil count (count/volume) 0.1 10*3/uL 0.0-0.1 Whole blood basic metabolic panel - 12/02 03/20 00:05 Serum or plasma sodium measurement (moles/volume) 138 mmol/L 135-145 Serum or plasma potassium measurement (moles/volume) 3.7 mmol/L 3.6-5.0 Serum or plasma chloride measurement (moles/volume) 105 mmol/L 98-107 Carbon dioxide 20 mmol/L 21-32 Serum or plasma anion gap determination (moles/volume) 13 mmol/L 5-14 Serum or plasma urea nitrogen measurement (mass/volume ) 12 mg/dL 7-18 Serum or plasma creatinine measurement (mass/volume) 1.81 mg/dL 0.60-1.30 Serum or plasma urea nitrogen/creatinine mass ratio 7 NRG Serum or plasma creatinine measurement w ith calculation of estimated glomerular filtration rate 40 NRG Serum or plasma glucose measurement (mass/volume) 112 mg/dL 70-105 Serum or plasma calcium measurement (mass/volume) 10.1 mg/dL 8.5-10.1 Complete urinalysis with reflex to cultu re - 12/21/17 23:03 Urine color determination YELLOW NRG Urine clarity determination SLIGHTLY CLOUDY NRG Urine pH measurement by test strip 7 5-9 Specific gravity of urine by test strip 1.010 1.016-1.022 Urine protein assay by test strip, semi-quantitative NEGATIVE NEGATIVE Urine glucose detection by automated test strip NE GATIVE NEGATIVE Erythrocytes detection in urine sediment by light micr oscopy NEGATIVE NEGATIVE Urine ketones detection by automated test strip NE GATIVE NEGATIVE Urine nitrite detection by test strip NEGATIVE NEGATIVE Urine total bilirubin detection by test strip NEGA TIVE NEGATIVE Urine urobilinogen measurement by automated test strip (mass/volume) NORMAL NORMAL Urine leukocyte esterase detection by dipstick 1+ NEGATIVE Automated urine sediment erythrocyte cou nt by microscopy (number/high power field) NONE NRG Automated urine sediment leukocyte count by microscopy (number/high power field) [HPF] NRG Bacteria detection in urine sediment by light microsco py TRACE NRG Squamous epithelial cells detection in u rine sediment by light microscopy 5-10 NRG Crystals detection in urine sediment by light microsco py PRESENT NRG Casts detection in urine sediment by light microscopy PRESENT NRG Mucus detection in urine sediment by light microscopy NEGATIVE NRG Complete urinalysis with reflex to culture YES NRG Amorphous sediment detection in urine sediment by ligh t microscopy LARGE TARYN PHOSPHATE NRG Coarse granular casts detection in urine sediment by l ight microscopy 10 NRG Bacterial urine culture - 12/21/17 23:03 Bacterial urine culture NG NRG Semen free prostate specific antigen (PS A) measurement (units/volume) - 12/22/17 00:05 Prostate specific ag [mass/volume] in serum or plasma 0.42 % 0.00-4.00 Serum or plasma renal function panel (Na , K, Cl, CO2, BUN, Cr, glucose,Ca, phos, alb) - 02/06/18 15:39 Serum or plasma sodium measurement (moles/volume) 139 mmol/L 135-145 Serum or plasma potassium measurement (moles/volume) 2.9 mmol/L 3.6-5.0 Serum or plasma chloride measurement (moles/volume) 106 mmol/L 98-107 Carbon dioxide 22 mmol/L 21-32 Serum or plasma anion gap determination (moles/volume) 11 mmol/L 5-14 Serum or plasma urea nitrogen measurement (mass/volume ) 18 mg/dL 7-18 Serum or plasma creatinine measurement (mass/volume) 1.57 mg/dL 0.60-1.30 Serum or plasma urea nitrogen/creatinine mass ratio 11 NRG Serum or plasma creatinine measurement w ith calculation of estimated glomerular filtration rate 47 NRG Serum or plasma glucose measurement (mass/volume) 102 mg/dL 70-105 Serum or plasma calcium measurement (mass/volume) 9.6 mg/dL 8.5-10.1 Serum or plasma albumin measurement (mass/volume) 4.2 g/dL 3.2-4.5 Serum or plasma phosphate measurement (mass/volume) 2.5 mg/dL 2.3-4.7 Complete blood count (CBC) with automate d white blood cell (WBC) differential - 03/13/18 19:57 Blood leukocytes automated count (number/volume) 9.0 10*3/uL 4.3-11.0 Blood erythrocytes automated count (number/volume) 5.29 10*6/uL 4.35-5.85 Venous blood hemoglobin measurement (mass/volume) 15.8 g/dL 13.3-17.7 Blood hematocrit (volume fraction) 48 % 40-54 Automated erythrocyte mean corpuscular volume 90 [ foz_us] 80-99 Automated erythrocyte mean corpuscular h emoglobin (mass per erythrocyte) 30 pg 25-34 Automated erythrocyte mean corpuscular h emoglobin concentration measurement (mass/volume) 33 g/dL 32-36 Automated erythrocyte distribution width ratio 14. 2 % 10.0- 14.5 Automated blood platelet count (count/volume) 201 10*3/uL 130-400 Automated blood platelet mean volume measurement 11.2 [foz_us] 7.4-10.4 Automated blood neutrophils/100 leukocytes 60 % 42-75 Automated blood lymphocytes/100 leukocytes 28 % 12-44 Blood monocytes/100 leukocytes 9 % 0-12 Automated blood eosinophils/100 leukocytes 2 % 0-10 Automated blood basophils/100 leukocytes 1 % 0-10 Blood neutrophils automated count (number/volume) 5.4 10*3 1.8-7.8 Blood lymphocytes automated count (number/volume) 2.5 10*3 1.0-4.0 Blood monocytes automated count (number/volume) 0. 8 10*3 0.0-1.0 Automated eosinophil count 0.2 10*3/uL 0 .0-0.3 Automated blood basophil count (count/volume) 0.1 10*3/uL 0.0-0.1 Comprehensive metabolic panel - 03/13/18 19:57 Serum or plasma sodium measurement (moles/volume) 140 mmol/L 135-145 Serum or plasma potassium measurement (moles/volume) 4.2 mmol/L 3.6-5.0 Serum or plasma chloride measurement (moles/volume) 105 mmol/L 98-107 Carbon dioxide 22 mmol/L 21-32 Serum or plasma anion gap determination (moles/volume) 13 mmol/L 5-14 Serum or plasma urea nitrogen measurement (mass/volume ) 17 mg/dL 7-18 Serum or plasma creatinine measurement (mass/volume) 1.54 mg/dL 0.60-1.30 Serum or plasma urea nitrogen/creatinine mass ratio 11 NRG Serum or plasma creatinine measurement w ith calculation of estimated glomerular filtration rate 48 NRG Serum or plasma glucose measurement (mass/volume) 82 mg/dL 70-105 Serum or plasma calcium measurement (mass/volume) 9.7 mg/dL 8.5-10.1 Serum or plasma total bilirubin measurement (mass/volu me) 0.6 mg/dL 0.1-1.0 Serum or plasma alkaline phosphatase bernice surement (enzymatic activity/volume) 67 U/L 40-136 Serum or plasma aspartate aminotransfera se measurement (enzymatic activity/volume) 37 U/L 5-34 Serum or plasma alanine aminotransferase measurement (enzymatic activity/volume) 34 U/L 0-55 Serum or plasma protein measurement (mass/volume) 7.5 g/dL 6.4-8.2 Serum or plasma albumin measurement (mass/volume) 4.3 g/dL 3.2-4.5 CALCIUM CORRECTED 9.5 mg/dL 8.5-10.1 Magnesium - 03/13/18 19:57 Magnesium 2.3 mg/dL 1.8-2.4 Serum or plasma creatine kinase measurem ent (enzymatic activity/volume) - 03/13/18 19:57 Serum or plasma creatine kinase measurem ent (enzymatic activity/volume) 164 U/L 30-200 Serum or plasma troponin i.cardiac measu rement (mass/volume) - 03/13/18 19:57 Serum or plasma troponin i.cardiac measurement (mass/v olume) < ng/mL <0.028 Myoglobin, serum - 03/13/18 19:57 Myoglobin, serum 100.5 ng/mL 10.0-92.0 Serum or plasma amylase measurement (enz ymatic activity/volume) - 03/13/18 19:57 Serum or plasma amylase measurement (enzymatic activit y/volume) 42 U/L 25-125 Lipase - 03/13/18 19:57 Lipase 40 U/L 8-78 PT panel in platelet poor plasma by coag ulation assay - 03/13/18 20:21 Prothrombin time (PT) in platelet poor plasma by coagu lation assay 23.8 s 12.2-14.7 INR in platelet poor plasma or blood by coagulation as say 2.1 0.8-1.4 Activated partial thromboplastin time (a PTT) in platelet poor plasma bycoagulation assay - 03/13/18 20:21 Activated partial thromboplastin time (a PTT) in platelet poor plasma bycoagulation assay 32 s 24-35 Serum or plasma troponin i.cardiac measu rement (mass/volume) - 03/13/18 22:10 Serum or plasma troponin i.cardiac measurement (mass/v olume) < ng/mL <0.028 Whole blood basic metabolic panel - 03/04 11/19 16:45 Serum or plasma sodium measurement (moles/volume) 139 mmol/L 135-145 Serum or plasma potassium measurement (moles/volume) 3.5 mmol/L 3.6-5.0 Serum or plasma chloride measurement (moles/volume) 107 mmol/L 98-107 Carbon dioxide 19 mmol/L 21-32 Serum or plasma anion gap determination (moles/volume) 13 mmol/L 5-14 Serum or plasma urea nitrogen measurement (mass/volume ) 16 mg/dL 7-18 Serum or plasma creatinine measurement (mass/volume) 1.41 mg/dL 0.60-1.30 Serum or plasma urea nitrogen/creatinine mass ratio 11 NRG Serum or plasma creatinine measurement w ith calculation of estimated glomerular filtration rate 54 NRG Serum or plasma glucose measurement (mass/volume) 88 mg/dL 70-105 Serum or plasma calcium measurement (mass/volume) 9.9 mg/dL 8.5-10.1 Serum or plasma testosterone measurement (mass/volume) - 03/31/18 16:45 Testosterone [mass or moles/volume] in serum or plasma 485.33 % 240.24-870.68 Prostate specific ag [mass/volume] in se rum or plasma - 03/31/18 16:45 Prostate specific ag [mass/volume] in serum or plasma 0.61 % 0.00-4.00 Complete blood count (CBC) with automate d white blood cell (WBC) differential - 05/21/18 18:55 Blood leukocytes automated count (number/volume) 22.4 10*3/uL 4.3-11.0 Blood erythrocytes automated count (number/volume) 6.07 10*6/uL 4.35-5.85 Venous blood hemoglobin measurement (mass/volume) 18.8 g/dL 13.3-17.7 Blood hematocrit (volume fraction) 54 % 40-54 Automated erythrocyte mean corpuscular volume 90 [ foz_us] 80-99 Automated erythrocyte mean corpuscular h emoglobin (mass per erythrocyte) 31 pg 25-34 Automated erythrocyte mean corpuscular h emoglobin concentration measurement (mass/volume) 35 g/dL 32-36 Automated erythrocyte distribution width ratio 16. 4 % 10.0- 14.5 Automated blood platelet count (count/volume) 274 10*3/uL 130-400 Automated blood platelet mean volume measurement 10.8 [foz_us] 7.4-10.4 Automated blood neutrophils/100 leukocytes 81 % 42-75 Automated blood lymphocytes/100 leukocytes 10 % 12-44 Blood monocytes/100 leukocytes 7 % 0-12 Automated blood eosinophils/100 leukocytes 1 % 0-10 Automated blood basophils/100 leukocytes 0 % 0-10 Blood neutrophils automated count (number/volume) 18.2 10*3 1.8-7.8 Blood lymphocytes automated count (number/volume) 2.2 10*3 1.0-4.0 Blood monocytes automated count (number/volume) 1. 7 10*3 0.0-1.0 Automated eosinophil count 0.3 10*3/uL 0 .0-0.3 Automated blood basophil count (count/volume) 0.1 10*3/uL 0.0-0.1 Blood manual differential performed dete ction - 05/21/18 18:55 Blood monocytes/100 leukocytes 11 % NRG Manual blood segmented neutrophils/100 leukocytes 75 % NRG Blood band neutrophils/100 leukocytes 3 % NRG Manual blood lymphocytes/100 leukocytes 11 % NRG Blood anisocytosis detection by light microscopy S LIGHT NR Comprehensive metabolic panel - 05/21/18 18:55 Serum or plasma sodium measurement (moles/volume) 138 mmol/L 135-145 Serum or plasma potassium measurement (moles/volume) 4.2 mmol/L 3.6-5.0 Serum or plasma chloride measurement (moles/volume) 107 mmol/L 98-107 Carbon dioxide 16 mmol/L 21-32 Serum or plasma anion gap determination (moles/volume) 15 mmol/L 5-14 Serum or plasma urea nitrogen measurement (mass/volume ) 27 mg/dL 7-18 Serum or plasma creatinine measurement (mass/volume) 1.87 mg/dL 0.60-1.30 Serum or plasma urea nitrogen/creatinine mass ratio 14 NRG Serum or plasma creatinine measurement w ith calculation of estimated glomerular filtration rate 39 NRG Serum or plasma glucose measurement (mass/volume) 113 mg/dL 70-105 Serum or plasma calcium measurement (mass/volume) 10.9 mg/dL 8.5-10.1 Serum or plasma total bilirubin measurement (mass/volu me) 0.5 mg/dL 0.1-1.0 Serum or plasma alkaline phosphatase bernice surement (enzymatic activity/volume) 77 U/L 40-136 Serum or plasma aspartate aminotransfera se measurement (enzymatic activity/volume) 41 U/L 5-34 Serum or plasma alanine aminotransferase measurement (enzymatic activity/volume) 43 U/L 0-55 Serum or plasma protein measurement (mass/volume) 8.9 g/dL 6.4-8.2 Serum or plasma albumin measurement (mass/volume) 5.6 g/dL 3.2-4.5 Magnesium - 05/21/18 18:55 Magnesium 2.8 mg/dL 1.8-2.4 Erythrocyte sedimentation rate by letitia gren method - 05/21/18 18:55 Erythrocyte sedimentation rate by westergren method 1 mm 0- 15 Lipase - 05/21/18 18:55 Lipase 32 U/L 8-78 Serum or plasma C reactive protein measu rement (mass/volume) - 05/21/18 18:55 Serum or plasma C reactive protein measurement (mass/v olume) 0.43 mg/dL 0.00-0.50 Complete urinalysis with reflex to cultu re - 05/21/18 19:19 Urine color determination YELLOW NRG Urine clarity determination VERY CLOUDY NRG Urine pH measurement by test strip 5 5-9 Specific gravity of urine by test strip 1.025 1.016-1.022 Urine protein assay by test strip, semi-quantitative 3+ NEGATIVE Urine glucose detection by automated test strip NE GATIVE NEGATIVE Erythrocytes detection in urine sediment by light micr oscopy 3+ NEGATIVE Urine ketones detection by automated test strip NE GATIVE NEGATIVE Urine nitrite detection by test strip NEGATIVE NEGATIVE Urine total bilirubin detection by test strip NEGA TIVE NEGATIVE Urine urobilinogen measurement by automated test strip (mass/volume) NORMAL NORMAL Urine leukocyte esterase detection by dipstick 2+ NEGATIVE Automated urine sediment erythrocyte cou nt by microscopy (number/high power field) [HPF] NRG Automated urine sediment leukocyte count by microscopy (number/high power field) [HPF] NRG Bacteria detection in urine sediment by light microsco py LARGE NRG Crystals detection in urine sediment by light microsco py NONE NRG Casts detection in urine sediment by light microscopy PRESENT NRG Mucus detection in urine sediment by light microscopy NEGATIVE NRG Complete urinalysis with reflex to culture YES NRG Hyaline casts detection in urine sediment by light ludmila roscopy 10-25 NRG Bacterial urine culture - 05/21/18 19:19 Bacterial urine culture 3 OR MORE NRG COLONY COUNT >100,000/ML NRG FTX;REPORTABLE GRAM POSITIVE; SUGGESTING PROBABLE NRG FREE TEXT ENTRY 2 COLLECTION CONTAMINATION WITH SK IN NRG FREE TEXT ENTRY 3 ABDIRAHMAN, NO SUSCEPTIBILITY PERFORM ED NRG Complete blood count (CBC) with automate d white blood cell (WBC) differential - 05/22/18 05:30 Blood leukocytes automated count (number/volume) 14.7 10*3/uL 4.3-11.0 Blood erythrocytes automated count (number/volume) 5.33 10*6/uL 4.35-5.85 Venous blood hemoglobin measurement (mass/volume) 16.4 g/dL 13.3-17.7 Blood hematocrit (volume fraction) 49 % 40-54 Automated erythrocyte mean corpuscular volume 91 [ foz_us] 80-99 Automated erythrocyte mean corpuscular h emoglobin (mass per erythrocyte) 31 pg 25-34 Automated erythrocyte mean corpuscular h emoglobin concentration measurement (mass/volume) 34 g/dL 32-36 Automated erythrocyte distribution width ratio 16. 2 % 10.0- 14.5 Automated blood platelet count (count/volume) 229 10*3/uL 130-400 Automated blood platelet mean volume measurement 11.1 [foz_us] 7.4-10.4 Automated blood neutrophils/100 leukocytes 80 % 42-75 Automated blood lymphocytes/100 leukocytes 11 % 12-44 Blood monocytes/100 leukocytes 8 % 0-12 Automated blood eosinophils/100 leukocytes 2 % 0-10 Automated blood basophils/100 leukocytes 0 % 0-10 Blood neutrophils automated count (number/volume) 11.7 10*3 1.8-7.8 Blood lymphocytes automated count (number/volume) 1.6 10*3 1.0-4.0 Blood monocytes automated count (number/volume) 1. 2 10*3 0.0-1.0 Automated eosinophil count 0.2 10*3/uL 0 .0-0.3 Automated blood basophil count (count/volume) 0.0 10*3/uL 0.0-0.1 Comprehensive metabolic panel - 05/22/18 05:30 Serum or plasma sodium measurement (moles/volume) 141 mmol/L 135-145 Serum or plasma potassium measurement (moles/volume) 3.1 mmol/L 3.6-5.0 Serum or plasma chloride measurement (moles/volume) 113 mmol/L 98-107 Carbon dioxide 17 mmol/L 21-32 Serum or plasma anion gap determination (moles/volume) 11 mmol/L 5-14 Serum or plasma urea nitrogen measurement (mass/volume ) 26 mg/dL 7-18 Serum or plasma creatinine measurement (mass/volume) 1.54 mg/dL 0.60-1.30 Serum or plasma urea nitrogen/creatinine mass ratio 17 NRG Serum or plasma creatinine measurement w ith calculation of estimated glomerular filtration rate 48 NRG Serum or plasma glucose measurement (mass/volume) 106 mg/dL 70-105 Serum or plasma calcium measurement (mass/volume) 9.0 mg/dL 8.5-10.1 Serum or plasma total bilirubin measurement (mass/volu me) 0.5 mg/dL 0.1-1.0 Serum or plasma alkaline phosphatase bernice surement (enzymatic activity/volume) 58 U/L 40-136 Serum or plasma aspartate aminotransfera se measurement (enzymatic activity/volume) 25 U/L 5-34 Serum or plasma alanine aminotransferase measurement (enzymatic activity/volume) 32 U/L 0-55 Serum or plasma protein measurement (mass/volume) 7.2 g/dL 6.4-8.2 Serum or plasma albumin measurement (mass/volume) 4.4 g/dL 3.2-4.5 CALCIUM CORRECTED 8.7 mg/dL 8.5-10.1 Capillary blood glucose measurement by g lucometer (mass/volume) - 05/22/18 13:37 Capillary blood glucose measurement by glucometer (mas s/volume) 95 mg/dL 70-110 Capillary blood glucose measurement by g lucometer (mass/volume) - 05/22/18 21:51 Capillary blood glucose measurement by glucometer (mas s/volume) 111 mg/dL 70-110 Complete blood count (CBC) with automate d white blood cell (WBC) differential - 05/23/18 05:55 Blood leukocytes automated count (number/volume) 9.5 10*3/uL 4.3-11.0 Blood erythrocytes automated count (number/volume) 4.79 10*6/uL 4.35-5.85 Venous blood hemoglobin measurement (mass/volume) 14.7 g/dL 13.3-17.7 Blood hematocrit (volume fraction) 43 % 40-54 Automated erythrocyte mean corpuscular volume 90 [ foz_us] 80-99 Automated erythrocyte mean corpuscular h emoglobin (mass per erythrocyte) 31 pg 25-34 Automated erythrocyte mean corpuscular h emoglobin concentration measurement (mass/volume) 34 g/dL 32-36 Automated erythrocyte distribution width ratio 15. 5 % 10.0- 14.5 Automated blood platelet count (count/volume) 168 10*3/uL 130-400 Automated blood platelet mean volume measurement 10.7 [foz_us] 7.4-10.4 Automated blood neutrophils/100 leukocytes 69 % 42-75 Automated blood lymphocytes/100 leukocytes 18 % 12-44 Blood monocytes/100 leukocytes 8 % 0-12 Automated blood eosinophils/100 leukocytes 4 % 0-10 Automated blood basophils/100 leukocytes 0 % 0-10 Blood neutrophils automated count (number/volume) 6.6 10*3 1.8-7.8 Blood lymphocytes automated count (number/volume) 1.7 10*3 1.0-4.0 Blood monocytes automated count (number/volume) 0. 8 10*3 0.0-1.0 Automated eosinophil count 0.4 10*3/uL 0 .0-0.3 Automated blood basophil count (count/volume) 0.0 10*3/uL 0.0-0.1 Comprehensive metabolic panel - 05/23/18 05:55 Serum or plasma sodium measurement (moles/volume) 138 mmol/L 135-145 Serum or plasma potassium measurement (moles/volume) 2.8 mmol/L 3.6-5.0 Serum or plasma chloride measurement (moles/volume) 111 mmol/L 98-107 Carbon dioxide 19 mmol/L 21-32 Serum or plasma anion gap determination (moles/volume) 8 mmol/L 5-14 Serum or plasma urea nitrogen measurement (mass/volume ) 18 mg/dL 7-18 Serum or plasma creatinine measurement (mass/volume) 1.27 mg/dL 0.60-1.30 Serum or plasma urea nitrogen/creatinine mass ratio 14 NRG Serum or plasma creatinine measurement w ith calculation of estimated glomerular filtration rate > NRG Serum or plasma glucose measurement (mass/volume) 98 mg/dL 70-105 Serum or plasma calcium measurement (mass/volume) 8.4 mg/dL 8.5-10.1 Serum or plasma total bilirubin measurement (mass/volu me) 0.7 mg/dL 0.1-1.0 Serum or plasma alkaline phosphatase bernice surement (enzymatic activity/volume) 48 U/L 40-136 Serum or plasma aspartate aminotransfera se measurement (enzymatic activity/volume) 20 U/L 5-34 Serum or plasma alanine aminotransferase measurement (enzymatic activity/volume) 24 U/L 0-55 Serum or plasma protein measurement (mass/volume) 6.2 g/dL 6.4-8.2 Serum or plasma albumin measurement (mass/volume) 3.9 g/dL 3.2-4.5 CALCIUM CORRECTED 8.5 mg/dL 8.5-10.1 Capillary blood glucose measurement by g lucometer (mass/volume) - 05/23/18 06:00 Capillary blood glucose measurement by glucometer (mas s/volume) 99 mg/dL 70-110 Capillary blood glucose measurement by g lucometer (mass/volume) - 05/23/18 12:39 Capillary blood glucose measurement by glucometer (mas s/volume) 103 mg/dL 70-110 Capillary blood glucose measurement by g lucometer (mass/volume) - 05/23/18 15:34 Capillary blood glucose measurement by glucometer (mas s/volume) 112 mg/dL 70-110 Capillary blood glucose measurement by g lucometer (mass/volume) - 05/23/18 20:32 Capillary blood glucose measurement by glucometer (mas s/volume) 111 mg/dL 70-110 Capillary blood glucose measurement by g lucometer (mass/volume) - 05/24/18 01:05 Capillary blood glucose measurement by glucometer (mas s/volume) 103 mg/dL 70-110 Whole blood basic metabolic panel - 05/02 06/19 04:50 Serum or plasma sodium measurement (moles/volume) 139 mmol/L 135-145 Serum or plasma potassium measurement (moles/volume) 3.1 mmol/L 3.6-5.0 Serum or plasma chloride measurement (moles/volume) 113 mmol/L 98-107 Carbon dioxide 19 mmol/L 21-32 Serum or plasma anion gap determination (moles/volume) 7 mmol/L 5-14 Serum or plasma urea nitrogen measurement (mass/volume ) 13 mg/dL 7-18 Serum or plasma creatinine measurement (mass/volume) 1.09 mg/dL 0.60-1.30 Serum or plasma urea nitrogen/creatinine mass ratio 12 NRG Serum or plasma creatinine measurement w ith calculation of estimated glomerular filtration rate > NRG Serum or plasma glucose measurement (mass/volume) 107 mg/dL 70-105 Serum or plasma calcium measurement (mass/volume) 8.6 mg/dL 8.5-10.1 Capillary blood glucose measurement by g lucometer (mass/volume) - 05/24/18 05:16 Capillary blood glucose measurement by glucometer (mas s/volume) 104 mg/dL 70-110 Capillary blood glucose measurement by g lucometer (mass/volume) - 05/24/18 10:23 Capillary blood glucose measurement by glucometer (mas s/volume) 131 mg/dL 70-110 CMP - 05/27/18 10:38 GLUCOSE 87 mg/dL 65-99 UREA NITROGEN (BUN) 17 mg/dL 7-25 CREATININE 1.29 mg/dL 0.60-1.35 eGFR NON-AFR. LITHUANIAN 65 mL/min/1.73m2 > OR = 60 eGFR 75 mL/min/1.73m2 > OR = 60 BUN/CREATININE RATIO NOT APPLICABLE (calc) 6-22 SODIUM 139 mmol/L 135-146 POTASSIUM 3.8 mmol/L 3.5-5.3 CHLORIDE 104 mmol/L 98-110 CARBON DIOXIDE 26 mmol/L 20-32 CALCIUM 9.7 mg/dL 8.6-10.3 PROTEIN, TOTAL 6.9 g/dL 6.1-8.1 ALBUMIN 4.4 g/dL 3.6-5.1 GLOBULIN 2.5 g/dL (calc) 1.9-3.7 ALBUMIN/GLOBULIN RATIO 1.8 (calc) 1.0-2. 5 BILIRUBIN, TOTAL 0.5 mg/dL 0.2-1.2 ALKALINE PHOSPHATASE 76 U/L 40-115 AST 24 U/L 10-40 ALT 28 U/L 9-46 CBC - 05/27/18 10:38 WHITE BLOOD CELL COUNT 9.9 Thousand/uL 3 .8-10.8 RED BLOOD CELL COUNT 5.22 Million/uL 4.2 0-5.80 HEMOGLOBIN 16.1 g/dL 13.2-17.1 HEMATOCRIT 47.4 % 38.5-50.0 MCV 90.8 fL 80.0-100.0 MCH 30.8 pg 27.0-33.0 MCHC 34.0 g/dL 32.0-36.0 RDW 14.4 % 11.0-15.0 PLATELET COUNT 207 Thousand/uL 140-400 MPV 10.6 fL 7.5-12.5 ABSOLUTE NEUTROPHILS 6287 cells/uL 1500- 7800 ABSOLUTE LYMPHOCYTES 2465 cells/uL 850-3 900 ABSOLUTE MONOCYTES 713 cells/uL 200-950 ABSOLUTE EOSINOPHILS 337 cells/uL 15-500 ABSOLUTE BASOPHILS 99 cells/uL 0-200 NEUTROPHILS 63.5 % NRG LYMPHOCYTES 24.9 % NRG MONOCYTES 7.2 % NRG EOSINOPHILS 3.4 % NRG BASOPHILS 1.0 % NRG COMMENT(S) NRG CULTURE, URINE - 06/24/18 08:40 CULTURE, URINE, ROUTINE SEE NOTE NRG TESTOSTERONE, TOTAL - 06/29/18 08:24 TESTOSTERONE, TOTAL, MALES (ADULT), [place] 828 ng/dL [id number] A1C - 06/29/18 08:24 HEMOGLOBIN A1c 5.7 % of total Hgb <5.7 DIFFERENTIAL, MANUAL - 06/29/18 08:24 ABSOLUTE NEUTROPHILS 6417 cells/uL 1500- 7800 ABSOLUTE MONOCYTES 558 cells/uL 200-950 ABSOLUTE EOSINOPHILS 372 cells/uL 15-500 ABSOLUTE BASOPHILS 0 cells/uL 0-200 NEUTROPHILS 69 % NRG LYMPHOCYTES 18 % NRG MONOCYTES 6 % NRG EOSINOPHILS 4 % NRG BASOPHILS 0 % NRG ABSOLUTE BAND NEUTROPHILS 93 cells/uL 0- 750 ABSOLUTE METAMYELOCYTES 186 cells/uL ABSOLUTE LYMPHOCYTES 1674 cells/uL 850-3 900 BAND NEUTROPHILS 1 % NRG METAMYELOCYTES 2 % NRG PLATELET ESTIMATION ADEQUATE ADEQUATE CBC MORPHOLOGY NORMAL NOTE NRG Complete urinalysis with reflex to cultu re - 07/11/18 12:31 Urine color determination YELLOW NRG Urine clarity determination SLIGHTLY CLOUDY NRG Urine pH measurement by test strip 7 5-9 Specific gravity of urine by test strip 1.010 1.016-1.022 Urine protein assay by test strip, semi-quantitative NEGATIVE NEGATIVE Urine glucose detection by automated test strip NE GATIVE NEGATIVE Erythrocytes detection in urine sediment by light micr oscopy NEGATIVE NEGATIVE Urine ketones detection by automated test strip NE GATIVE NEGATIVE Urine nitrite detection by test strip POSITIVE NEGATIVE Urine total bilirubin detection by test strip NEGA TIVE NEGATIVE Urine urobilinogen measurement by automated test strip (mass/volume) NORMAL NORMAL Urine leukocyte esterase detection by dipstick 1+ NEGATIVE Automated urine sediment erythrocyte cou nt by microscopy (number/high power field) NONE NRG Automated urine sediment leukocyte count by microscopy (number/high power field) [HPF] NRG Bacteria detection in urine sediment by light microsco py LARGE NRG Crystals detection in urine sediment by light microsco py NONE NRG Casts detection in urine sediment by light microscopy NONE NRG Mucus detection in urine sediment by light microscopy SMALL NRG Complete urinalysis with reflex to culture YES NRG Bacterial urine culture - 07/11/18 12:31 Bacterial urine culture [id number] NRG COLONY COUNT >100,000/ML NRG FTX;REPORTABLE SUSCEPTIBILITY REPORT RCD 07/15 12:0 5 NRG RML Sensitivity Panel - 07/11/18 12:31 Vancomycin susceptibility test by minimum inhibitory c oncentration <= NRG Levofloxacin susceptibility test by minimum inhibitory concentration > NRG Rifampin susceptibility test by minimum inhibitory con centration <= NRG Cefazolin susceptibility test by minimum inhibitory co ncentration <= NRG Nitrofurantoin susceptibility test by mi nimum inhibitory concentration <= NRG Penicillin G susceptibility test by minimum inhibitory concentration 0.25 NRG Complete urinalysis with reflex to cultu re - 08/21/18 18:44 Urine color determination YELLOW NRG Urine clarity determination CLEAR NR G Urine pH measurement by test strip 6 5-9 Specific gravity of urine by test strip 1.015 1.016-1.022 Urine protein assay by test strip, semi-quantitative NEGATIVE NEGATIVE Urine glucose detection by automated test strip NE GATIVE NEGATIVE Erythrocytes detection in urine sediment by light micr oscopy NEGATIVE NEGATIVE Urine ketones detection by automated test strip NE GATIVE NEGATIVE Urine nitrite detection by test strip NEGATIVE NEGATIVE Urine total bilirubin detection by test strip NEGA TIVE NEGATIVE Urine urobilinogen measurement by automated test strip (mass/volume) NORMAL NORMAL Urine leukocyte esterase detection by dipstick 1+ NEGATIVE Automated urine sediment erythrocyte cou nt by microscopy (number/high power field) RARE NRG Automated urine sediment leukocyte count by microscopy (number/high power field) [HPF] NRG Bacteria detection in urine sediment by light microsco py NEGATIVE NRG Squamous epithelial cells detection in u rine sediment by light microscopy RARE NRG Crystals detection in urine sediment by light microsco py NONE NRG Casts detection in urine sediment by light microscopy NONE NRG Mucus detection in urine sediment by light microscopy NEGATIVE NRG Complete urinalysis with reflex to culture NO NRG Complete blood count (CBC) with automate d white blood cell (WBC) differential - 08/21/18 18:55 Blood leukocytes automated count (number/volume) 10.0 10*3/uL 4.3-11.0 Blood erythrocytes automated count (number/volume) 5.37 10*6/uL 4.35-5.85 Venous blood hemoglobin measurement (mass/volume) 16.6 g/dL 13.3-17.7 Blood hematocrit (volume fraction) 49 % 40-54 Automated erythrocyte mean corpuscular volume 91 [ foz_us] 80-99 Automated erythrocyte mean corpuscular h emoglobin (mass per erythrocyte) 31 pg 25-34 Automated erythrocyte mean corpuscular h emoglobin concentration measurement (mass/volume) 34 g/dL 32-36 Automated erythrocyte distribution width ratio 14. 1 % 10.0- 14.5 Automated blood platelet count (count/volume) 206 10*3/uL 130-400 Automated blood platelet mean volume measurement 10.6 [foz_us] 7.4-10.4 Automated blood neutrophils/100 leukocytes 68 % 42-75 Automated blood lymphocytes/100 leukocytes 22 % 12-44 Blood monocytes/100 leukocytes 7 % 0-12 Automated blood eosinophils/100 leukocytes 2 % 0-10 Automated blood basophils/100 leukocytes 0 % 0-10 Blood neutrophils automated count (number/volume) 6.9 10*3 1.8-7.8 Blood lymphocytes automated count (number/volume) 2.2 10*3 1.0-4.0 Blood monocytes automated count (number/volume) 0. 7 10*3 0.0-1.0 Automated eosinophil count 0.2 10*3/uL 0 .0-0.3 Automated blood basophil count (count/volume) 0.0 10*3/uL 0.0-0.1 Comprehensive metabolic panel - 08/21/18 18:55 Serum or plasma sodium measurement (moles/volume) 141 mmol/L 135-145 Serum or plasma potassium measurement (moles/volume) 3.5 mmol/L 3.6-5.0 Serum or plasma chloride measurement (moles/volume) 108 mmol/L 98-107 Carbon dioxide 21 mmol/L 21-32 Serum or plasma anion gap determination (moles/volume) 12 mmol/L 5-14 Serum or plasma urea nitrogen measurement (mass/volume ) 20 mg/dL 7-18 Serum or plasma creatinine measurement (mass/volume) 1.72 mg/dL 0.60-1.30 Serum or plasma urea nitrogen/creatinine mass ratio 12 NRG Serum or plasma creatinine measurement w ith calculation of estimated glomerular filtration rate 43 NRG Serum or plasma glucose measurement (mass/volume) 137 mg/dL 70-105 Serum or plasma calcium measurement (mass/volume) 9.9 mg/dL 8.5-10.1 Serum or plasma total bilirubin measurement (mass/volu me) 0.3 mg/dL 0.1-1.0 Serum or plasma alkaline phosphatase bernice surement (enzymatic activity/volume) 63 U/L 40-136 Serum or plasma aspartate aminotransfera se measurement (enzymatic activity/volume) 27 U/L 5-34 Serum or plasma alanine aminotransferase measurement (enzymatic activity/volume) 39 U/L 0-55 Serum or plasma protein measurement (mass/volume) 7.5 g/dL 6.4-8.2 Serum or plasma albumin measurement (mass/volume) 4.5 g/dL 3.2-4.5 CALCIUM CORRECTED 9.5 mg/dL 8.5-10.1 Complete blood count (CBC) with automate d white blood cell (WBC) differential - 09/19/18 10:16 Blood leukocytes automated count (number/volume) 9.3 10*3/uL 4.3-11.0 Blood erythrocytes automated count (number/volume) 5.45 10*6/uL 4.35-5.85 Venous blood hemoglobin measurement (mass/volume) 16.9 g/dL 13.3-17.7 Blood hematocrit (volume fraction) 50 % 40-54 Automated erythrocyte mean corpuscular volume 91 [ foz_us] 80-99 Automated erythrocyte mean corpuscular h emoglobin (mass per erythrocyte) 31 pg 25-34 Automated erythrocyte mean corpuscular h emoglobin concentration measurement (mass/volume) 34 g/dL 32-36 Automated erythrocyte distribution width ratio 14. 5 % 10.0- 14.5 Automated blood platelet count (count/volume) 188 10*3/uL 130-400 Automated blood platelet mean volume measurement 11.2 [foz_us] 7.4-10.4 Automated blood neutrophils/100 leukocytes 61 % 42-75 Automated blood lymphocytes/100 leukocytes 25 % 12-44 Blood monocytes/100 leukocytes 10 % 0-12 Automated blood eosinophils/100 leukocytes 3 % 0-10 Automated blood basophils/100 leukocytes 1 % 0-10 Blood neutrophils automated count (number/volume) 5.7 10*3 1.8-7.8 Blood lymphocytes automated count (number/volume) 2.3 10*3 1.0-4.0 Blood monocytes automated count (number/volume) 0. 9 10*3 0.0-1.0 Automated eosinophil count 0.3 10*3/uL 0 .0-0.3 Automated blood basophil count (count/volume) 0.1 10*3/uL 0.0-0.1 Comprehensive metabolic panel - 09/19/18 10:16 Serum or plasma sodium measurement (moles/volume) 140 mmol/L 135-145 Serum or plasma potassium measurement (moles/volume) 4.3 mmol/L 3.6-5.0 Serum or plasma chloride measurement (moles/volume) 109 mmol/L 98-107 Carbon dioxide 20 mmol/L 21-32 Serum or plasma anion gap determination (moles/volume) 11 mmol/L 5-14 Serum or plasma urea nitrogen measurement (mass/volume ) 17 mg/dL 7-18 Serum or plasma creatinine measurement (mass/volume) 1.53 mg/dL 0.60-1.30 Serum or plasma urea nitrogen/creatinine mass ratio 11 NRG Serum or plasma creatinine measurement w ith calculation of estimated glomerular filtration rate 49 NRG Serum or plasma glucose measurement (mass/volume) 98 mg/dL 70-105 Serum or plasma calcium measurement (mass/volume) 10.0 mg/dL 8.5-10.1 Serum or plasma total bilirubin measurement (mass/volu me) 0.3 mg/dL 0.1-1.0 Serum or plasma alkaline phosphatase bernice surement (enzymatic activity/volume) 67 U/L 40-136 Serum or plasma aspartate aminotransfera se measurement (enzymatic activity/volume) 45 U/L 5-34 Serum or plasma alanine aminotransferase measurement (enzymatic activity/volume) 45 U/L 0-55 Serum or plasma protein measurement (mass/volume) 7.4 g/dL 6.4-8.2 Serum or plasma albumin measurement (mass/volume) 4.3 g/dL 3.2-4.5 CALCIUM CORRECTED 9.8 mg/dL 8.5-10.1 Magnesium - 09/19/18 10:16 Magnesium 2.5 mg/dL 1.8-2.4 Serum or plasma troponin i.cardiac measu rement (mass/volume) - 09/19/18 10:16 Serum or plasma troponin i.cardiac measurement (mass/v olume) < ng/mL <0.028 Myoglobin, serum - 09/19/18 10:16 Myoglobin, serum 84.4 ng/mL 10.0-92.0 PT panel in platelet poor plasma by coag ulation assay - 09/19/18 10:16 Prothrombin time (PT) in platelet poor plasma by coagu lation assay 12.5 s 12.2-14.7 INR in platelet poor plasma or blood by coagulation as say 0.9 0.8-1.4 Activated partial thromboplastin time (a PTT) in platelet poor plasma bycoagulation assay - 09/19/18 10:16 Activated partial thromboplastin time (a PTT) in platelet poor plasma bycoagulation assay 30 s 24-35 Fibrin D-dimer FEU measurement in platel et poor plasma (mass/volume) - 09/19/18 10:16 Fibrin D-dimer FEU measurement in platelet poor plasma (mass/volume) 0.44 ug/mL 0.00-0.49 Blood lactic acid measurement (moles/vol ume) - 09/19/18 11:19 Blood lactic acid measurement (moles/volume) 1.19 mmol/L 0.50-2.00 CBC - 10/01/18 09:11 WHITE BLOOD CELL COUNT 7.6 Thousand/uL 3 .8-10.8 RED BLOOD CELL COUNT 5.15 Million/uL 4.2 0-5.80 HEMOGLOBIN 15.9 g/dL 13.2-17.1 HEMATOCRIT 47.7 % 38.5-50.0 MCV 92.6 fL 80.0-100.0 MCH 30.9 pg 27.0-33.0 MCHC 33.3 g/dL 32.0-36.0 RDW 13.1 % 11.0-15.0 PLATELET COUNT 194 Thousand/uL 140-400 MPV 10.4 fL 7.5-12.5 ABSOLUTE NEUTROPHILS 5084 cells/uL 1500- 7800 ABSOLUTE LYMPHOCYTES 1733 cells/uL 850-3 900 ABSOLUTE MONOCYTES 562 cells/uL 200-950 ABSOLUTE EOSINOPHILS 167 cells/uL 15-500 ABSOLUTE BASOPHILS 53 cells/uL 0-200 NEUTROPHILS 66.9 % NRG LYMPHOCYTES 22.8 % NRG MONOCYTES 7.4 % NRG EOSINOPHILS 2.2 % NRG BASOPHILS 0.7 % NRG A1C - 10/01/18 09:11 HEMOGLOBIN A1c 5.6 % of total Hgb <5.7 CULTURE, URINE - 11/16/18 14:17 CULTURE, URINE, ROUTINE SEE NOTE NRG CULTURE, URINE - 12/01/18 16:30 CULTURE, URINE, ROUTINE SEE NOTE NRG STOOL (O T P) - 12/10/18 11:57 OVA AND PARASITES, CONC AND PERM SMEAR SEE NOTE NRG CULTURE, STOOL - 12/10/18 11:57 SALMONELLA AND SHIGELLA, CULTURE SEE NOTE NRG Complete blood count (CBC) with automate d white blood cell (WBC) differential - 01/14/19 15:16 Blood leukocytes automated count (number/volume) 10.0 10*3/uL 4.3-11.0 Blood erythrocytes automated count (number/volume) 5.18 10*6/uL 4.35-5.85 Venous blood hemoglobin measurement (mass/volume) 16.2 g/dL 13.3-17.7 Blood hematocrit (volume fraction) 48 % 40-54 Automated erythrocyte mean corpuscular volume 93 [ foz_us] 80-99 Automated erythrocyte mean corpuscular h emoglobin (mass per erythrocyte) 31 pg 25-34 Automated erythrocyte mean corpuscular h emoglobin concentration measurement (mass/volume) 34 g/dL 32-36 Automated erythrocyte distribution width ratio 14. 1 % 10.0- 14.5 Automated blood platelet count (count/volume) 187 10*3/uL 130-400 Automated blood platelet mean volume measurement 10.4 [foz_us] 7.4-10.4 Automated blood neutrophils/100 leukocytes 66 % 42-75 Automated blood lymphocytes/100 leukocytes 20 % 12-44 Blood monocytes/100 leukocytes 8 % 0-12 Automated blood eosinophils/100 leukocytes 3 % 0-10 Automated blood basophils/100 leukocytes 1 % 0-10 Blood neutrophils automated count (number/volume) 6.6 10*3 1.8-7.8 Blood lymphocytes automated count (number/volume) 2.0 10*3 1.0-4.0 Blood monocytes automated count (number/volume) 0. 8 10*3 0.0-1.0 Automated eosinophil count 0.3 10*3/uL 0 .0-0.3 Automated blood basophil count (count/volume) 0.1 10*3/uL 0.0-0.1 PT panel in platelet poor plasma by coag ulation assay - 01/14/19 15:16 Prothrombin time (PT) in platelet poor plasma by coagu lation assay 12.6 s 12.2-14.7 INR in platelet poor plasma or blood by coagulation as say 0.9 0.8-1.4 Activated partial thromboplastin time (a PTT) in platelet poor plasma bycoagulation assay - 01/14/19 15:16 Activated partial thromboplastin time (a PTT) in platelet poor plasma bycoagulation assay 23 s 24-35 TROPONIN I FS - 01/14/19 15:16 TROPONIN I FS < 0.30 <0.30 PROBNP FS - 01/14/19 15:16 PROBNP FS 20.4 pg/mL <75.0 Comprehensive metabolic panel - 01/14/19 15:16 Serum or plasma sodium measurement (moles/volume) 143 mmol/L 135-145 Serum or plasma potassium measurement (moles/volume) 3.4 mmol/L 3.6-5.0 Serum or plasma chloride measurement (moles/volume) 106 mmol/L 98-107 Carbon dioxide 23 mmol/L 21-32 Serum or plasma anion gap determination (moles/volume) 14 mmol/L 5-14 Serum or plasma urea nitrogen measurement (mass/volume ) 13 mg/dL 7-18 Serum or plasma creatinine measurement (mass/volume) 1.53 mg/dL 0.60-1.30 Serum or plasma urea nitrogen/creatinine mass ratio 8 NRG Serum or plasma creatinine measurement w ith calculation of estimated glomerular filtration rate 49 NRG Serum or plasma glucose measurement (mass/volume) 83 mg/dL 70-105 Serum or plasma calcium measurement (mass/volume) 9.9 mg/dL 8.5-10.1 Serum or plasma total bilirubin measurement (mass/volu me) 0.4 mg/dL 0.1-1.0 Serum or plasma alkaline phosphatase bernice surement (enzymatic activity/volume) 58 U/L 40-136 Serum or plasma aspartate aminotransfera se measurement (enzymatic activity/volume) 35 U/L 5-34 Serum or plasma alanine aminotransferase measurement (enzymatic activity/volume) 41 U/L 0-55 Serum or plasma protein measurement (mass/volume) 7.1 g/dL 6.4-8.2 Serum or plasma albumin measurement (mass/volume) 4.2 g/dL 3.2-4.5 CALCIUM CORRECTED 9.7 mg/dL 8.5-10.1 Magnesium - 01/14/19 15:16 Magnesium 1.9 mg/dL 1.6-2.4 Fibrin D-dimer FEU measurement in platel et poor plasma (mass/volume) - 01/14/19 15:16 Fibrin D-dimer FEU measurement in platelet poor plasma (mass/volume) 0.51 ug/mL 0.00-0.49 Serum or plasma creatine kinase MB measu rement (enzymatic activity/volume) - 01/14/19 15:16 Serum or plasma creatine kinase MB measu rement (enzymatic activity/volume) 3.1 ng/mL <6.6 Serum or plasma troponin i.cardiac measu rement (mass/volume) - 01/14/19 18:06 Serum or plasma troponin i.cardiac measurement (mass/v olume) < ng/mL <0.30 Capillary blood glucose measurement by g lucometer (mass/volume) - 01/14/19 21:26 Capillary blood glucose measurement by glucometer (mas s/volume) 122 mg/dL 70-110 Capillary blood glucose measurement by g lucometer (mass/volume) - 01/15/19 05:24 Capillary blood glucose measurement by glucometer (mas s/volume) 122 mg/dL 70-110 Capillary blood glucose measurement by g lucometer (mass/volume) - 01/15/19 11:27 Capillary blood glucose measurement by glucometer (mas s/volume) 98 mg/dL 70-110 Complete blood count (CBC) with automate d white blood cell (WBC) differential - 01/17/19 14:30 Blood leukocytes automated count (number/volume) 7.8 10*3/uL 4.3-11.0 Blood erythrocytes automated count (number/volume) 4.97 10*6/uL 4.35-5.85 Venous blood hemoglobin measurement (mass/volume) 15.5 g/dL 13.3-17.7 Blood hematocrit (volume fraction) 46 % 40-54 Automated erythrocyte mean corpuscular volume 93 [ foz_us] 80-99 Automated erythrocyte mean corpuscular h emoglobin (mass per erythrocyte) 31 pg 25-34 Automated erythrocyte mean corpuscular h emoglobin concentration measurement (mass/volume) 34 g/dL 32-36 Automated erythrocyte distribution width ratio 14. 9 % 10.0- 14.5 Automated blood platelet count (count/volume) 178 10*3/uL 130-400 Automated blood platelet mean volume measurement 10.9 [foz_us] 7.4-10.4 Automated blood neutrophils/100 leukocytes 67 % 42-75 Automated blood lymphocytes/100 leukocytes 22 % 12-44 Blood monocytes/100 leukocytes 7 % 0-12 Automated blood eosinophils/100 leukocytes 3 % 0-10 Automated blood basophils/100 leukocytes 1 % 0-10 Blood neutrophils automated count (number/volume) 5.2 10*3 1.8-7.8 Blood lymphocytes automated count (number/volume) 1.7 10*3 1.0-4.0 Blood monocytes automated count (number/volume) 0. 6 10*3 0.0-1.0 Automated eosinophil count 0.3 10*3/uL 0 .0-0.3 Automated blood basophil count (count/volume) 0.1 10*3/uL 0.0-0.1 Comprehensive metabolic panel - 01/17/19 14:30 Serum or plasma sodium measurement (moles/volume) 142 mmol/L 135-145 Serum or plasma potassium measurement (moles/volume) 3.4 mmol/L 3.6-5.0 Serum or plasma chloride measurement (moles/volume) 109 mmol/L 98-107 Carbon dioxide 20 mmol/L 21-32 Serum or plasma anion gap determination (moles/volume) 13 mmol/L 5-14 Serum or plasma urea nitrogen measurement (mass/volume ) 12 mg/dL 7-18 Serum or plasma creatinine measurement (mass/volume) 1.75 mg/dL 0.60-1.30 Serum or plasma urea nitrogen/creatinine mass ratio 7 NRG Serum or plasma creatinine measurement w ith calculation of estimated glomerular filtration rate 42 NRG Serum or plasma glucose measurement (mass/volume) 123 mg/dL 70-105 Serum or plasma calcium measurement (mass/volume) 10.3 mg/dL 8.5-10.1 Serum or plasma total bilirubin measurement (mass/volu me) 0.4 mg/dL 0.1-1.0 Serum or plasma alkaline phosphatase bernice surement (enzymatic activity/volume) 62 U/L 40-136 Serum or plasma aspartate aminotransfera se measurement (enzymatic activity/volume) 40 U/L 5-34 Serum or plasma alanine aminotransferase measurement (enzymatic activity/volume) 48 U/L 0-55 Serum or plasma protein measurement (mass/volume) 7.0 g/dL 6.4-8.2 Serum or plasma albumin measurement (mass/volume) 4.3 g/dL 3.2-4.5 CALCIUM CORRECTED 10.1 mg/dL 8.5-10.1 Lipase - 01/17/19 14:30 Lipase 47 U/L 8-78 Serum or plasma C reactive protein measu rement (mass/volume) - 01/17/19 14:30 Serum or plasma C reactive protein measurement (mass/v olume) 0.48 mg/dL 0.00-0.50 MICROALBUMIN/CREATININE RATIO, URINE - 1 04/05/18 08:35 CREATININE, RANDOM URINE 137 mg/dL 20-32 0 MICROALBUMIN 2.7 mg/dL See Note: MICROALBUMIN/CREATININE RATIO, RANDOM URINE 20 mcg /mg creat <30 PDM - 09 PANEL (PROFILE 1) - 02/04/19 09 :00 Prescribed Drug 1 [place](TM) NRG Creatinine 116.7 mg/dL > or = 20.0 pH 7.9 4.5-9.0 Oxidant NEGATIVE mcg/mL <200 Amphetamines NEGATIVE ng/mL <500 medMATCH Amphetamines CONSISTENT NRG Benzodiazepines NEGATIVE ng/mL <100 medMATCH Benzodiazepines CONSISTENT NRG Marijuana Metabolite POSITIVE ng/mL <20 Cocaine Metabolite NEGATIVE ng/mL <150 medMATCH Cocaine Metab CONSISTENT NRG Opiates NEGATIVE ng/mL <100 medMATCH Opiates INCONSISTENT NRG Oxycodone NEGATIVE ng/mL <100 medMATCH Oxycodone CONSISTENT NRG COMMENT NRG Marijuana Metabolite 23 ng/mL <5 medMATCH Marijuana Metab INCONSISTENT N RG Barbiturates NEGATIVE ng/mL <300 medMATCH Barbiturates CONSISTENT NRG Methadone Metabolite NEGATIVE ng/mL <100 medMATCH Methadone Metab CONSISTENT NRG Phencyclidine NEGATIVE ng/mL <25 medMATCH Phencyclidine CONSISTENT NRG Complete blood count (CBC) with automate d white blood cell (WBC) differential - 02/06/19 22:00 Blood leukocytes automated count (number/volume) 8.8 10*3/uL 4.3-11.0 Blood erythrocytes automated count (number/volume) 4.45 10*6/uL 4.35-5.85 Venous blood hemoglobin measurement (mass/volume) 14.1 g/dL 13.3-17.7 Blood hematocrit (volume fraction) 41 % 40-54 Automated erythrocyte mean corpuscular volume 93 [ foz_us] 80-99 Automated erythrocyte mean corpuscular h emoglobin (mass per erythrocyte) 32 pg 25-34 Automated erythrocyte mean corpuscular h emoglobin concentration measurement (mass/volume) 34 g/dL 32-36 Automated erythrocyte distribution width ratio 14. 3 % 10.0- 14.5 Automated blood platelet count (count/volume) 145 10*3/uL 130-400 Automated blood platelet mean volume measurement 9.6 [foz_us] 7.4-10.4 Automated blood neutrophils/100 leukocytes 65 % 42-75 Automated blood lymphocytes/100 leukocytes 24 % 12-44 Blood monocytes/100 leukocytes 8 % 0-12 Automated blood eosinophils/100 leukocytes 3 % 0-10 Automated blood basophils/100 leukocytes 1 % 0-10 Blood neutrophils automated count (number/volume) 5.7 10*3 1.8-7.8 Blood lymphocytes automated count (number/volume) 2.1 10*3 1.0-4.0 Blood monocytes automated count (number/volume) 0. 7 10*3 0.0-1.0 Automated eosinophil count 0.3 10*3/uL 0 .0-0.3 Automated blood basophil count (count/volume) 0.0 10*3/uL 0.0-0.1 Fibrin D-dimer FEU measurement in platel et poor plasma (mass/volume) - 02/06/19 22:00 Fibrin D-dimer FEU measurement in platelet poor plasma (mass/volume) 0.38 ug/mL 0.00-0.49 Comprehensive metabolic panel - 02/06/19 22:00 Serum or plasma sodium measurement (moles/volume) 140 mmol/L 135-145 Serum or plasma potassium measurement (moles/volume) 3.2 mmol/L 3.6-5.0 Serum or plasma chloride measurement (moles/volume) 107 mmol/L 98-107 Carbon dioxide 19 mmol/L 21-32 Serum or plasma anion gap determination (moles/volume) 14 mmol/L 5-14 Serum or plasma urea nitrogen measurement (mass/volume ) 13 mg/dL 7-18 Serum or plasma creatinine measurement (mass/volume) 1.81 mg/dL 0.60-1.30 Serum or plasma urea nitrogen/creatinine mass ratio 7 NRG Serum or plasma creatinine measurement w ith calculation of estimated glomerular filtration rate 40 NRG Serum or plasma glucose measurement (mass/volume) 183 mg/dL 70-105 Serum or plasma calcium measurement (mass/volume) 10.2 mg/dL 8.5-10.1 Serum or plasma total bilirubin measurement (mass/volu me) 0.4 mg/dL 0.1-1.0 Serum or plasma alkaline phosphatase bernice surement (enzymatic activity/volume) 56 U/L 40-136 Serum or plasma aspartate aminotransfera se measurement (enzymatic activity/volume) 30 U/L 5-34 Serum or plasma alanine aminotransferase measurement (enzymatic activity/volume) 44 U/L 0-55 Serum or plasma protein measurement (mass/volume) 6.6 g/dL 6.4-8.2 Serum or plasma albumin measurement (mass/volume) 4.1 g/dL 3.2-4.5 CALCIUM CORRECTED 10.1 mg/dL 8.5-10.1 Encounters ACCT No. Visit Date/Time Discharge Status Pt. Type Provider Facility Loc./Unit Complaint [id number] 11/05/2018 09:22:28 9 23:59:59 DIS Outpatient CHARLES CASTRO [facility] Ortho [id number] 09/14/2018 08:45:54 9 23:59:59 DIS Outpatient CHARLES CASTRO [facility] RAD Xray [id number] 09/14/2018 08:26:29 9 23:59:59 DIS Outpatient CHARLES CASTRO [facility] Ortho [id number] 02/06/2019 21:23:00 019 23:39:00 DIS Emergency VELMA LENNON, STAN Green [facility] ER L LEG PAIN, SWE LLING [id number] 01/17/2019 14:22:00 16:20:00 DIS Emergency VANESSA LENNON, SALTY Banks [facility] ER STOMACH PAIN [id number] 01/14/2019 19:57:00 11:13:00 DIS Outpatient BLANK ELIZABETH MD [facility] CSD CHEST PAIN [id number] 01/06/2019 15:46:00 17:12:00 DIS Outpatient STAN CARREON MD [facility] ER COUGHING, SOB, CP,LIGHTHEADEDNESS [id number] 09/19/2018 10:04:00 12:30:00 DIS Emergency STAN CARREON MD [facility] ER SOA [id number] 08/21/2018 18:35:00 19:45:00 DIS Emergency VANESSA LENNON, SALTY Banks [facility] ER L FLANK PAIN [id number] 07/11/2018 11:52:00 13:23:00 DIS Emergency LOGAN SNELL 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 [facility] ER BACK PAIN [id number] 05/21/2018 22:19:00 11:25:00 DIS Inpatient MYKE LENNON, LAURA Horowitz [facility] 4TH ENTEROCOLITIS,UTI,N/V/D ,ACUTE ON CHRONIC RENAL [id number] 04/07/2018 08:32:00 23:59:59 CLS Outpatient PATEL MAURER MD [facility] RAD CKD, STAGE 3 [id number] 04/07/2018 09:28:00 11:54:00 DIS Emergency TRINITY CURRY [facility] ER LEFT KNEE INJ [id number] 03/31/2018 16:33:00 23:59:59 CLS Outpatient LINO GONZALES MD [facility] LAB N40.1 [id number] 03/13/2018 19:56:00 22:51:00 DIS Emergency GERMÁN GARCIA [facility] ER CP [id number] 02/06/2018 15:17:00 018 23:59:59 CLS Outpatient PATEL MAURER MD [facility] LAB HTN,CKD [id number] 12/21/2017 22:26:00 018 00:59:00 DIS Emergency MARY LOU LENNON, RUDY De Dios [facility] ER BURNING WHEN UR INATE [id number] 10/27/2017 09:56:00 018 23:59:59 CLS Outpatient LIBERTAD LENNON, Caron WAGNER [facility] CARD DIZZINESS [id number] 09/21/2017 10:36:00 018 12:52:00 DIS Emergency SALTY MENDEZ MD [facility] ER PAIN IN UPPER ABDOMEN [id number] 08/24/2017 23:41:00 018 01:56:00 DIS Emergency RUDY BARRETO MD [facility] ER AB PAIN [id number] 08/20/2017 12:35:00 018 17:10:00 DIS Emergency LOGAN SNELL APRN [facility] ER CHEST PAIN/SOA [id number] 07/20/2017 10:22:00 018 12:13:00 DIS Emergency TAMIR CORONA MD [facility] ER R ARM BURNING SENSATION ,DIZZY [id number] 07/12/2017 20:21:00 018 00:50:00 DIS Emergency STAN CARREON MD [facility] ER CP [id number] 07/03/2017 22:18:00 018 14:42:00 DIS Inpatient TAMIR CORONA MD [facility] ICU CHEST PAIN R/O ACS [id number] 04/28/2017 12:56:00 018 23:59:59 CLS Outpatient SOL RUBIO MD (DDU) [facility] RT BREATHING PROBL EMS [id number] 04/27/2017 18:03:00 018 20:03:00 DIS Emergency KRISTIAN CONTRERAS DO Daphnie lidya [facility] ER INTERMITTENT CP [id number] 03/20/2017 09:45:00 018 13:57:00 DIS Emergency KRISTIAN CONTRERAS DO Daphnie lidya [facility] ER CP AND R ARM PAIN [id number] 03/16/2017 17:24:00 018 18:51:00 DIS Emergency RUDY BARRETO MD [facility] ER R ARM PAIN/HX O F TIA [id number] 10/16/2016 16:32:00 017 18:04:00 DIS Emergency LOGAN SNELL APRN [facility] ER DIZZINESS,NOSE BLEED [id number] 10/12/2016 23:24:00 017 02:12:00 DIS Emergency SALTY MENDEZ MD [facility] ER BP [id number] 10/12/2016 12:42:00 017 15:42:00 DIS Emergency NITHIN HALL [facility] ER DENTAL PAIN/SWELLING P OSS INFECTION [id number] 05/28/2016 20:30:00 017 23:11:00 DIS Emergency NITHIN HALL [facility] ER R SIDE PAIN [id number] 01/26/2016 23:11:00 016 01:20:00 DIS Emergency DIANE ALMEIDAKRISTIAN [facility] ER CP,SOB,CONGESTION [id number] 12/11/2015 16:04:00 016 17:15:00 DIS Emergency KIT JOHNSON DO [facility] ER ABD PAIN [id number] 10/07/2015 17:30:00 016 20:45:00 DIS Emergency LOGAN SNELL APRN [facility] ER CHEST PAIN/SOA [id number] 09/30/2015 13:50:00 016 14:24:00 DIS Emergency LOGAN SNELL APRN [facility] ER DENTAL PAIN [id number] 01/15/2015 21:30:00 23:27:00 DIS Emergency NITHIN HALL [facility] ER BACK PAIN [id number] 10/25/2014 13:37:00 23:59:59 CLS Outpatient LINO GONZALES MD [facility] RAD STONES [id number] 10/04/2014 07:51:00 16:10:00 DIS Outpatient LINO GONZALES MD [facility] SDC LEFT RENAL STONE [id number] 09/27/2014 05:58:00 23:59:59 CLS Outpatient LINO GONZALES MD [facility] PREOP LEFT RENAL STONE [id number] 10/18/2013 19:39:00 014 21:28:00 DIS Emergency KIT JOHNSON DO [facility] ER CHEST PAIN, R ARM PAIN [id number] 09/04/2013 19:34:00 014 22:38:00 DIS Emergency DONN MARSH MD [facility] ER LEFT SIDE PAIN [id number] 08/06/2013 08:09:00 014 23:59:59 CLS Outpatient LINO GONZALES MD [facility] RAD RLQ PAIN, HX OF STONES [id number] 08/05/2013 13:42:00 014 23:59:59 CLS Outpatient LINO GONZALES MD [facility] RAD STONE [id number] 10/17/2012 11:17:00 013 23:59:59 CLS Outpatient [id number] 10/12/2017 09:34:00 Document Registration [id number] 10/03/2017 17:46:00 Document Registration [id number] 10/26/2011 15:47:00 Document Registration [id number] 12/31/2010 19:20:00 Document Registration [id number] 02/22/2019 10:30:00 02/22/2019 23:59:5 9 [facility] Outpatient ÁNGEL CASPER [facility] [id number] 02/04/2019 08:30:00 Document Registration [id number] 02/02/2019 08:00:00 Document Registration [id number] 12/10/2018 10:30:00 Document Registration [id number] 12/01/2018 16:10:00 Document Registration [id number] 11/16/2018 14:00:00 Document Registration [id number] 10/01/2018 08:20:00 Document Registration [id number] 06/29/2018 08:20:00 Document Registration [id number] 06/24/2018 08:30:00 Document Registration [id number] 05/27/2018 09:30:00 Document Registration
== END 2019-02-06 23:39 | disposition home or self-care (01) ==
LOC: EDUNIT# 21:22 → ER 21:23
DX: S76.312A Strain of muscle, fascia and tendon of the posterior muscle group at thigh level, left thigh, initial encounter (principal); E11.22 Type 2 diabetes mellitus with diabetic chronic kidney disease; I12.9 Hypertensive chronic kidney disease with stage 1 through stage 4 chronic kidney disease, or unspecified chronic kidney disease; N18.9 Chronic kidney disease, unspecified; J44.9 Chronic obstructive pulmonary disease, unspecified; E78.00 Pure hypercholesterolemia, unspecified; F41.9 Anxiety disorder, unspecified; F31.9 Bipolar disorder, unspecified; G47.30 Sleep apnea, unspecified; K21.9 Gastro-esophageal reflux disease without esophagitis; E66.01 Morbid (severe) obesity due to excess calories; Z99.89 Dependence on other enabling machines and devices; Z79.82 Long term (current) use of aspirin; Z87.442 Personal history of urinary calculi; Z87.891 Personal history of nicotine dependence; Z90.49 Acquired absence of other specified parts of digestive tract; Z68.42 Body mass index [BMI] 45.0-49.9, adult; X50.0XXA Overexertion from strenuous movement or load, initial encounter
CPT/HCPCS: 36415; 80053; 85025; 85379

== ENCOUNTER → 2019-06-25 | Outpatient (CLI) | payer MEDICAID ==
[~2019-06-25] MED LIST changes: +FENO145T26 PO; -FENO145T37 PO; -HYDR-3820 PO
== END ==
LOC: RAD 09:06
PROVIDERS: ATTEND Nurse Practitioner
DX: M23.262 Derangement of other lateral meniscus due to old tear or injury, left knee (principal); M22.42 Chondromalacia patellae, left knee; Z53.8 Procedure and treatment not carried out for other reasons

== ENCOUNTER → 2019-08-12 | Outpatient (CLI) | payer MEDICAID ==
--- NOTE | 2019-08-12 09:31 | Diagnostic Imaging Report ---
INDICATION: Left knee pain. Time of exam 8:58 AM 3 views of the left knee were obtained. Alignment is normal. There is some mild degenerative changes with some very mild joint space narrowing of the medial and lateral compartments. There is some marginal spurring along the lateral compartment. There is also some mild spurring along the posterior surface of the patella. No fracture or dislocation is seen. There is a joint effusion. IMPRESSION: Joint effusion and mild degenerative changes. No acute bony abnormality is detected. Dictated by: Dictated on workstation # [id number]
== END ==
LOC: RAD FS 08:49
PROVIDERS: ATTEND Nurse Practitioner
DX: M17.12 Unilateral primary osteoarthritis, left knee (principal)
CPT/HCPCS: 73562

== ENCOUNTER → 2019-09-09 | Outpatient (CLI) | payer MEDICAID ==
--- NOTE | 2019-09-09 13:50 | Diagnostic Imaging Report ---
INDICATION: Urinary tract infection EXAMINATION: KUB at 1:35 PM There is a 1 cm calculus projecting over the lower pole of left kidney. There is a 5 mm calculi projected over the left kidney and right kidney. Bowel gas pattern is normal. There are degenerative changes in the lumbar spine. Gallbladder is surgically absent. IMPRESSION: Bilateral nephrolithiasis. Dictated by: Dictated on workstation # [id number]
--- NOTE | 2019-09-09 14:18 | Diagnostic Imaging Report ---
PROCEDURE: CT abdomen and pelvis without contrast. TECHNIQUE: Multiple contiguous axial images were obtained through the abdomen and pelvis without the use of intravenous contrast. Auto Exposure Controls were utilized during the CT exam to meet ALARA standards for radiation dose reduction. INDICATION: Right lower quadrant abdominal pain. History of kidney stones. COMPARISON: 08/21/2018. FINDINGS: Included portions lung bases are clear. CT abdomen: Multiple nonobstructive bilateral renal calculi are identified. No ureteral calculi are seen on either side. Additionally, there is no hydronephrosis or other evidence of obstruction. No focal renal masses are seen on this noncontrast exam. Liver is diffusely hypodense. The adrenal glands, spleen, and pancreas have a normal noncontrast CT appearance. Small bowel loops are nondistended. Normal appendix is identified. There is no loculated fluid collection, free fluid, nor free air within the abdomen. No abnormal mesenteric or retroperitoneal adenopathy is seen. Osseous structures show no acute abnormalities. There is mild scattered calcified aortic atherosclerosis. CT pelvis: Urinary bladder is unopacified. No calculi are seen within urinary bladder. There is no loculated fluid collection, free fluid, nor free air within the pelvis. No abnormal lymph nodes are seen. Bilateral fat-containing inguinal hernias are noted. Osseous structures show no acute abnormalities. IMPRESSION: 1. Multiple bilateral nonobstructive renal calculi. 2. Hepatic steatosis. Dictated by: Dictated on workstation # [id number]
== END ==
LOC: RAD 12:56
PROVIDERS: ATTEND Urology
DX: N20.0 Calculus of kidney (principal); N28.89 Other specified disorders of kidney and ureter; N39.0 Urinary tract infection, site not specified
CPT/HCPCS: 74018; 74176

== ENCOUNTER 2019-09-13 01:43 | Emergency (ER) | payer MEDICAID ==
[~2019-09-13] VITALS: Ht 177.8 cm; Wt 155.3 kg
[2019-09-13] MEDS ORDERED: HYDROcodone/APAP 5 MG/325 MG (LORTAB) TAB PO ONE (02:30)
--- NOTE | 2019-09-13 02:32 | ED Lower Extremity ---
General Chief Complaint: Lower Extremity Stated Complaint: SWOLLEN KNEES Nursing Triage Note: TO ED VIA POV AND AMBULATORY TO ROOM 5 WITH C/O RIGHT KNEE SORENESS AND SWELLING. DENIES INJURY. Nursing Sepsis Screen: No Definite Risk Source: patient Exam Limitations: no limitations History of Present Illness Date Seen by Provider: Sep 13, 2019 Time Seen by Provider: 02:16 Initial Comments Here with report of right knee pain and going on for a couple of days. Denies injury. Usually has problems with his left knee and in fact has appointment with Zoran De La Cruz this week for injections of the left knee. States that his right knee is swollen and he does not know why and he is concerned that there may be something going on and presents for evaluation related to that. Not currently on any pain medicines. Previously on hydrocodone chronically through the clinic that he is no longer on those. Does have history of diabetes and obesity. Onset: yesterday Severity: moderate Pain/Injury Location: right knee Method of Injury: unknown Modifying Factors: Improves With Immobilization; Worse With Movement Allergies and Home Medications Allergies Coded Allergies: No Known Drug Allergies (Unverified , 12/21/17) Home Medications Acetaminophen 500 Mg Tablet, 1,000 MG PO Q4H PRN for PAIN-MILD (1-4), (Reported) Albuterol Sulfate 1 Puff Puff, 2 PUFF IH Q4H PRN for SHORTNESS OF BREATH, (Reported) 1 PUFF = 90 MCG Allopurinol 100 Mg Tablet, 100 MG PO DAILY, (Reported) Aripiprazole 30 Mg Tablet, 30 MG PO DAILY, (Reported) Aspirin 81 Mg Tablet.dr, 81 MG PO DAILY, (Reported) Atorvastatin Calcium 40 Mg Tablet, 40 MG PO HS, (Reported) Benzonatate 100 Mg Capsule, 100 MG PO TID PRN for COUGH Prescribed by: BLANK ELIZABETH on 01/15/19 1140 Bupropion HCl 100 Mg Tablet, 100 MG PO 1200, (Reported) Bupropion HCl 100 Mg Tablet.er, 200 MG PO DAILY, (Reported) Famotidine 20 Mg Tablet, 20 MG PO BID, (Reported) Famotidine 20 Mg Tablet, 20 MG PO BID Prescribed by: SALTY MENDEZ on 01/17/19 1538 Fenofibrate Nanocrystallized 145 Mg Tablet, 145 MG PO HS, (Reported) Gabapentin 300 Mg Capsule, 300 MG PO BID, (Reported) Hydrochlorothiazide 25 Mg Tablet, 25 MG PO DAILY, (Reported) Hydrocodone Bit/Acetaminophen 1 Each Tablet, 1 TAB PO Q6H PRN for PAIN-MODERATE (5-7), (Reported) Hyoscyamine Sulfate 0.125 Mg Tablet, 0.125 MG PO QID, (Reported) L. Acidophilus/Bulgaricus 1 Each Tab.chew, 1 TAB PO DAILY, (Reported) Loperamide HCl 2 Mg Capsule, 2 MG PO QID PRN for LOOSE STOOLS, (Reported) Mesalamine 1.2 Gm Tablet.dr, 4.8 GM PO DAILY, (Reported) TAKES 4 (1.2GM) TABLETS Metoprolol Tartrate 50 Mg Tablet, 25 MG PO BID, (Reported) TAKES 1/2 (50MG) TABLET Multivitamin 1 Each Tablet, 1 TAB PO DAILY, (Reported) Nifedipine 30 Mg Tablet.er, 30 MG PO DAILY, (Reported) [place]-3 Acid Ethyl Esters 1 Gm Capsule, 2 GM PO 1200,2100, (Reported) TAKES 2 (1GM) CAPSULES Ondansetron 4 Mg Tab.rapdis, 4 MG PO Q6H PRN for NAUSEA/VOMITING Prescribed by: SALTY MENDEZ on 01/17/19 1538 Potassium Chloride 20 Meq Tab.er.prt, 40 MEQ PO BID, (Reported) TAKES 2 (20MEQ) TABLETS Ropinirole HCl 5 Mg Tablet, 5 MG PO 0800,1200,2100, (Reported) Solifenacin Succinate 5 Mg Tablet, 5 MG PO DAILY, (Reported) Sucralfate 1 Gm Tablet, 1 GM PO BID WITH MEALS, (Reported) Topiramate 200 Mg Tablet, 200 MG PO BID, (Reported) Patient Home Medication List Home Medication List Reviewed: Yes Review of Systems Constitutional: no symptoms reported EENTM: no symptoms reported Musculoskeletal: see HPI, joint pain, joint swelling; No muscle pain Skin: No change in color, No lesions Psychiatric/Neurological: No Symptoms Reported Past Wpbuhbh-Fetpol-Kfothf Hx Past Med/Social Hx: Reviewed Nursing Past Med/Soc Hx Patient Social History Alcohol Use: Denies Use Number of Drinks Today: AA Alcohol Beverage of Choice: Beer Recreational Drug Use: Yes Drug of Choice: Marijuana Type Used: Cigarettes Former Smoker, Quit: Jun 04, 2017 2nd Hand Smoke Exposure: No Recent Foreign Travel: No Contact w/Someone Who Travel: No Recent Infectious Disease Expo: No Recent Hopitalizations: No Physical Abuse: No Sexual Abuse: No Immunizations Up To Date Tetanus Booster (TDap): Unknown PED Vaccines UTD: No Date of Pneumonia Vaccine: May 22, 2016 Date of Influenza Vaccine: Nov 11, 2018 Seasonal Allergies Seasonal Allergies: No Past Medical History Surgeries: Yes Cardiac, Gallbladder, Orthopedic, Renal Respiratory: Yes (C-PAP MACHINE) Sleep Apnea, COPD Currently Using CPAP: Yes Currently Using BIPAP: No Cardiac: Yes High Cholesterol, Hypertension Neurological: No Reproductive Disorders: No Sexually Transmitted Disease: No HIV/AIDS: No Genitourinary: Yes Kidney Stones, Renal Failure Gastrointestinal: Yes (S/P EVELIO; FATTY LIVER ON CT. ) Colitis, Gastroesophageal Reflux, Gall Bladder Disease Musculoskeletal: Yes Arthritis, Chronic Back Pain Endocrine: Yes (MORBID OBESITY) Diabetes, Non-Insulin dep HEENT: Yes (POOR DENTITION) Cancer: No Psychosocial: Yes (BIPOLAR, POLYSUBSTANCE ABUSE) Anxiety, Bipolar, Depression Integumentary: No Blood Disorders: No Adverse Reaction/Blood Tranf: No Family Medical History Reviewed Nursing Family Hx Completed stroke DVT 19 MOTHER, , Onset:Unknown Diabetes mellitus 19 MOTHER, , Onset:Unknown G8 BROTHER, Onset:Unknown FH: gastric ulcer 19 FATHER, Onset:Unknown DVT/PE, Diabetes, GI Disease Physical Exam Vital Signs Vital Signs - First Documented 09/13/19 02:11 Temp 36.8 Pulse 94 Resp 20 B/P (MAP) 144/88 (106) O2 Delivery Room Air Capillary Refill : Less Than 3 Seconds Height, Weight, BMI Height: 5'10.00" Weight: 330lbs. 3.0oz. 149.099307rf; 49.00 BMI Method:Stated General Appearance: WD/WN, obese Cardiovascular: regular rate, rhythm, no murmur Respiratory: lungs clear, normal breath sounds Knees: left knee non-tender; bilateral knee normal range of motion; right knee joint effusion, right knee swelling, right knee other (negative laxity and negative drawer) Feet: bilateral foot other (dorsalis pedis and posterior tibial pulses equal and strong bilateral) Neurologic/Psychiatric: alert, oriented x 3 Skin: normal color, warm/dry Progress/Results/Core Measures Results/Orders My Orders Orders - STAN CARREON MD Hydrocodone/Apap 5/325 Tablet (Lortab 5 (09/13/19 02:30) Knee, Right, 3 Views (09/13/19 02:24) Rashard Bandage (09/13/19 02:24) Medications Given in ED Current Medications Medications Dose Ordered Sig/Saba Route Start Time Stop Time Status Last Admin Dose Admin Acetaminophen/ Hydrocodone Bitart 1 tab ONCE ONCE PO 09/13/19 02:30 09/13/19 02:31 DC 09/13/19 02:30 1 TAB Vital Signs/I&O 09/13/19 02:11 Temp 36.8 Pulse 94 Resp 20 B/P (MAP) 144/88 (106) O2 Delivery Room Air Blood Pressure Mean: 106 Progress Progress Note : Progress Note Seen and evaluated. X-ray right knee. Hydrocodone 5/325 one tab by mouth. Rashard wrap to right knee as well as ice pack. Discharged home with return precautions. Patient verbalize understanding instructions and agreement with plan. Diagnostic Imaging Diagonstic Imaging: Xray Plain Films/CT/US/NM/MRI: knee Comments Left knee 3 view shows arthritic changes but no acute fracture Reviewed: Reviewed by Me Departure Impression Primary Impression: Effusion, right knee Additional Impression: Right knee pain Qualified Codes: M25.561 - Pain in right knee Disposition: 01 HOME, SELF-CARE Condition: Stable Departure-Patient Inst. Decision time for Depature: 02:35 Referrals: ÁNGEL CASPER MD (PCP) Primary Care Physician Patient Instructions: Knee Pain (DC) Add. Discharge Instructions: All discharge instructions reviewed with patient and/or family. Voiced understanding. Use Rashard wrap as needed for gentle compression. Use ice packs over area of concern 20 minutes per hour. You may use topical pain internet security specialist cream such as icy hot with lidocaine or similar to package directions. You should keep your appointment with Zoran De La Cruz this week as scheduled or reschedule if you cannot make that appointment to another day this week so that you can be seen for the orthopedic concerns (knee pain). Follow-up with your doctor this week for recheck and further evaluation. Call his office for appointment. Return for worse pain, swelling, weakness or other concerns as needed. You may take Tylenol/acetaminophen 1000 mg every 6-8 hours as needed for pain. STAN CARREON MD Sep 13, 2019 02:32
[2019-09-13 03:10] VITALS: BP 144/95
--- NOTE | 2019-09-13 07:11 | Diagnostic Imaging Report ---
HISTORY: Right knee pain COMPARISON: None TECHNIQUE: 3 views of the right knee FINDINGS: No acute fracture or dislocation is seen in the right knee. There are moderate to marked degenerative changes in the lateral compartment and mild degenerative change in the medial compartment. There are mild degenerative changes in the patellofemoral compartment. There is a moderate right knee joint effusion. IMPRESSION: 1. Tricompartmental degenerative changes in the right knee with a moderate right knee joint effusion. Dictated by: Dictated on workstation # [id number]
== END 2019-09-13 03:10 | disposition home or self-care (01) ==
LOC: EDUNIT# 01:43 → ER 01:44
DX: M25.461 Effusion, right knee (principal); J44.9 Chronic obstructive pulmonary disease, unspecified; I10 Essential (primary) hypertension; E78.00 Pure hypercholesterolemia, unspecified; K21.9 Gastro-esophageal reflux disease without esophagitis; E66.01 Morbid (severe) obesity due to excess calories; F41.9 Anxiety disorder, unspecified; F31.9 Bipolar disorder, unspecified; G89.29 Other chronic pain; M54.9 Dorsalgia, unspecified; Z68.41 Body mass index [BMI] 40.0-44.9, adult; Z79.82 Long term (current) use of aspirin; Z87.891 Personal history of nicotine dependence
CPT/HCPCS: 73562

== ENCOUNTER 2020-01-12 20:47 | Emergency (ER) | payer MEDICAID ==
[~2020-01-12] VITALS: Ht 177.8 cm; Wt 142.8 kg
[~2020-01-12 20:47] MED LIST changes: -PANT40TA3 PO; +PANT40TA52 PO
[2020-01-12 20:58] VITALS: BP 134/80
[2020-01-12] MEDS ORDERED: NS IV 500 ML 500 ML IV SCH (21:00)
[2020-01-12] MEDS ORDERED: HYOSCYAMINE 0.125 MG (LEVSIN) TAB PO ONE (21:00)
--- NOTE | 2020-01-12 21:06 | ED Abdominal Pain ---
General Chief Complaint: Abdominal/GI Problems Stated Complaint: BLOOD WHILE WIPPING/ABD PAIN Source of Information: Patient Exam Limitations: No Limitations History of Present Illness Date Seen by Provider: Jan 12, 2020 Time Seen by Provider: 21:05 Initial Comments To ER with reports of small blood in the stool after a bowel movement and blood on the toilet paper. After he noticed that he developed some lower abdominal cramping. No rectal pain. No fevers chills or lightheadedness. This began just a few hours ago. Timing/Duration: 1-3 Hours Severity/Quality: Moderate Associated Symptoms: Denies Symptoms Allergies and Home Medications Allergies Coded Allergies: No Known Drug Allergies (Unverified , 12/21/17) Home Medications Acetaminophen 500 Mg Tablet, 1,000 MG PO Q4H PRN for PAIN-MILD (1-4), (Reported) Albuterol Sulfate 1 Puff Puff, 2 PUFF IH Q4H PRN for SHORTNESS OF BREATH, (Reported) 1 PUFF = 90 MCG Allopurinol 100 Mg Tablet, 100 MG PO DAILY, (Reported) Aripiprazole 30 Mg Tablet, 30 MG PO DAILY, (Reported) Aspirin 81 Mg Tablet.dr, 81 MG PO DAILY, (Reported) Atorvastatin Calcium 40 Mg Tablet, 40 MG PO HS, (Reported) Benzonatate 100 Mg Capsule, 100 MG PO TID PRN for COUGH Prescribed by: BLANK ELIZABETH on 01/15/19 1140 Bupropion HCl 100 Mg Tablet, 100 MG PO 1200, (Reported) Bupropion HCl 100 Mg Tablet.er, 200 MG PO DAILY, (Reported) Famotidine 20 Mg Tablet, 20 MG PO BID, (Reported) Famotidine 20 Mg Tablet, 20 MG PO BID Prescribed by: SALTY MENDEZ on 01/17/19 1538 Fenofibrate Nanocrystallized 145 Mg Tablet, 145 MG PO HS, (Reported) Gabapentin 300 Mg Capsule, 300 MG PO BID, (Reported) Hydrochlorothiazide 25 Mg Tablet, 25 MG PO DAILY, (Reported) Hydrocodone Bit/Acetaminophen 1 Each Tablet, 1 TAB PO Q6H PRN for PAIN-MODERATE (5-7), (Reported) Hyoscyamine Sulfate 0.125 Mg Tablet, 0.125 MG PO QID, (Reported) L. Acidophilus/Bulgaricus 1 Each Tab.chew, 1 TAB PO DAILY, (Reported) Loperamide HCl 2 Mg Capsule, 2 MG PO QID PRN for LOOSE STOOLS, (Reported) Mesalamine 1.2 Gm Tablet.dr, 4.8 GM PO DAILY, (Reported) TAKES 4 (1.2GM) TABLETS Metoprolol Tartrate 50 Mg Tablet, 25 MG PO BID, (Reported) TAKES 1/2 (50MG) TABLET Multivitamin 1 Each Tablet, 1 TAB PO DAILY, (Reported) Nifedipine 30 Mg Tablet.er, 30 MG PO DAILY, (Reported) Herreid-3 Acid Ethyl Esters 1 Gm Capsule, 2 GM PO 1200,2100, (Reported) TAKES 2 (1GM) CAPSULES Ondansetron 4 Mg Tab.rapdis, 4 MG PO Q6H PRN for NAUSEA/VOMITING Prescribed by: SALTY MENDEZ on 01/17/19 1538 Potassium Chloride 20 Meq Tab.er.prt, 40 MEQ PO BID, (Reported) TAKES 2 (20MEQ) TABLETS Ropinirole HCl 5 Mg Tablet, 5 MG PO 0800,1200,2100, (Reported) Solifenacin Succinate 5 Mg Tablet, 5 MG PO DAILY, (Reported) Sucralfate 1 Gm Tablet, 1 GM PO BID WITH MEALS, (Reported) Topiramate 200 Mg Tablet, 200 MG PO BID, (Reported) Patient Home Medication List Home Medication List Reviewed: Yes Review of Systems Review of Systems Constitutional: see HPI EENTM: No Symptoms Reported Respiratory: No Symptoms Reported Cardiovascular: No Symptoms Reported Gastrointestinal: See HPI, Abdominal Pain, Rectal Bleeding Genitourinary: No Symptoms Reported Musculoskeletal: no symptoms reported Skin: no symptoms reported Psychiatric/Neurological: No Symptoms Reported Endocrine: No Symptoms Reported Hematologic/Lymphatic: No Symptoms Reported Past Ddolkox-Ysdgdy-Zfhhfq Hx Patient Social History Alcohol Beverage of Choice: Beer Drug of Choice: Marijuana Type Used: Cigarettes Former Smoker, Quit: Jun 04, 2017 2nd Hand Smoke Exposure: No Recent Foreign Travel: No Contact w/Someone Who Travel: No Recent Hopitalizations: No Immunizations Up To Date Tetanus Booster (TDap): Unknown PED Vaccines UTD: No Date of Pneumonia Vaccine: May 22, 2016 Date of Influenza Vaccine: Nov 11, 2018 Seasonal Allergies Seasonal Allergies: No Past Medical History Surgeries: Yes Cardiac, Gallbladder, Orthopedic, Renal Respiratory: Yes (C-PAP MACHINE) Sleep Apnea, COPD Currently Using CPAP: Yes Currently Using BIPAP: No Cardiac: Yes High Cholesterol, Hypertension Neurological: No Reproductive Disorders: No Sexually Transmitted Disease: No HIV/AIDS: No Genitourinary: Yes Kidney Stones, Renal Failure Gastrointestinal: Yes (S/P EVELIO; FATTY LIVER ON CT. ) Colitis, Gastroesophageal Reflux, Gall Bladder Disease Musculoskeletal: Yes Arthritis, Chronic Back Pain Endocrine: Yes (MORBID OBESITY) Diabetes, Non-Insulin dep HEENT: Yes (POOR DENTITION) Cancer: No Psychosocial: Yes (BIPOLAR, POLYSUBSTANCE ABUSE) Anxiety, Bipolar, Depression Integumentary: No Blood Disorders: No Adverse Reaction/Blood Tranf: No Family Medical History Completed stroke DVT 19 MOTHER, , Onset:Unknown Diabetes mellitus 19 MOTHER, , Onset:Unknown G8 BROTHER, Onset:Unknown FH: gastric ulcer 19 FATHER, Onset:Unknown DVT/PE, Diabetes, GI Disease Physical Exam Vital Signs Vital Signs - First Documented 01/12/20 20:58 Temp 36.5 Pulse 116 Resp 20 B/P (MAP) 134/80 (98) Capillary Refill : Height/Weight/BMI Height: 5'10.00" Weight: 330lbs. 3.0oz. 149.750764jp; 49.00 BMI Method:Stated General Appearance: WD/WN, no apparent distress, obese Respiratory: normal breath sounds, no respiratory distress, no accessory muscle use Gastrointestinal: normal bowel sounds, soft Extremities: normal range of motion, non-tender Neurologic/Psychiatric: alert, normal mood/affect, oriented x 3 Skin: normal color, warm/dry Progress/Results/Core Measures Results/Orders Lab Results Laboratory Tests Test 01/12/20 20:58 Range/Units White Blood Count 8.7 4.3-11.0 10^3/uL Red Blood Count 5.05 4.30-5.52 10^6/uL Hemoglobin 16.0 13.3-17.7 g/dL Hematocrit 47 40-54 % Mean Corpuscular Volume 94 80-99 fL Mean Corpuscular Hemoglobin 32 25-34 pg Mean Corpuscular Hemoglobin Concent 34 32-36 g/dL Red Cell Distribution Width 13.5 10.0-14.5 % Platelet Count 187 130-400 10^3/uL Mean Platelet Volume 11.1 9.0-12.2 fL Immature Granulocyte % (Auto) 1 % Neutrophils (%) (Auto) 61 42-75 % Lymphocytes (%) (Auto) 27 12-44 % Monocytes (%) (Auto) 8 0-12 % Eosinophils (%) (Auto) 2 0-10 % Basophils (%) (Auto) 1 0-10 % Neutrophils # (Auto) 5.3 1.8-7.8 10^3/uL Lymphocytes # (Auto) 2.4 1.0-4.0 10^3/uL Monocytes # (Auto) 0.7 0.0-1.0 10^3/uL Eosinophils # (Auto) 0.2 0.0-0.3 10^3/uL Basophils # (Auto) 0.1 0.0-0.1 10^3/uL Immature Granulocyte # (Auto) 0.1 0.0-0.1 10^3/uL Sodium Level 136 135-145 MMOL/L Potassium Level 3.5 L 3.6-5.0 MMOL/L Chloride Level 104 98-107 MMOL/L Carbon Dioxide Level 18 L 21-32 MMOL/L Anion Gap 14 5-14 MMOL/L Blood Urea Nitrogen 11 7-18 MG/DL Creatinine 1.32 H 0.60-1.30 MG/DL Estimat Glomerular Filtration Rate 57 BUN/Creatinine Ratio 8 Glucose Level 199 H 70-105 MG/DL Calcium Level 9.2 8.5-10.1 MG/DL My Orders Orders - LOGAN SNELL APRN Cbc With Automated Diff (01/12/20 21:00) Basic Metabolic Panel (01/12/20 21:00) Ed Iv/Invasive Line Start (01/12/20 21:00) Ns Iv 500 Ml (Sodium Chloride 0.9%) (01/12/20 21:00) Hyoscyamine Sl Tablet (Levsin Sl Tablet) (01/12/20 21:00) Ct Abdomen/Pelvis Wo (01/12/20 21:01) Medications Given in ED Current Medications Medications Dose Ordered Sig/Saba Route Start Time Stop Time Status Last Admin Dose Admin Hyoscyamine Sulfate 0.25 mg ONCE ONCE PO 01/12/20 21:00 01/12/20 21:02 DC 01/12/20 21:08 0.25 MG Vital Signs/I&O 01/12/20 20:58 Temp 36.5 Pulse 116 Resp 20 B/P (MAP) 134/80 (98) Departure Communication (Admissions) 2201-Patient had a liquid light calvillo bowel movement without any carlos blood. I will discharge to home with return precautions. Impression Primary Impression: Diarrhea Qualified Codes: R19.7 - Diarrhea, unspecified Disposition: 01 HOME, SELF-CARE Condition: Stable Departure-Patient Inst. Decision time for Depature: 22:02 Referrals: ÁNGEL CASPER MD (PCP/Family) Primary Care Physician Patient Instructions: Diarrhea and Travelers' Diarrhea, Adult (DC) Add. Discharge Instructions: 1. Tylenol and ibuprofen for pain. You can use a counter Imodium for diarrhea control. Follow-up with your doctor this week return to ER for any worsening. All discharge instructions reviewed with patient and/or family. Voiced understanding. LOGAN SNELL GASOLINE LOCOMOTIVE CRANE OPERATOR Jan 12, 2020 21:06
[2020-01-12 21:07] LABS: BASOPHILS # (AUTO) 0.1 10^3/uL (0.0-0.1); BASOPHILS % (AUTO) 1 % (0-10); EOSINOPHILS # (AUTO) 0.2 10^3/uL (0.0-0.3); EOSINOPHILS % (AUTO) 2 % (0-10); HEMATOCRIT 47 % (40-54); LYMPHOCYTES # (AUTO) 2.4 10^3/uL (1.0-4.0); LYMPHOCYTES % (AUTO) 27 % (12-44); MEAN CORPUSCULAR HEMOGLOBIN 32 pg (25-34); MEAN CORPUSCULAR HGB CONC 34 g/dL (32-36); MEAN CORPUSCULAR VOLUME 94 fL (80-99); MEAN PLATELET VOLUME 11.1 fL (9.0-12.2); MONOCYTES # (AUTO) 0.7 10^3/uL (0.0-1.0); MONOCYTES % (AUTO) 8 % (0-12); NEUTROPHILS # (AUTO) 5.3 10^3/uL (1.8-7.8); NEUTROPHILS % (AUTO) 61 % (42-75); PLATELET COUNT 187 10^3/uL (130-400); WHITE BLOOD COUNT 8.7 10^3/uL (4.3-11.0)
--- NOTE | 2020-01-12 21:29 | Diagnostic Imaging Report ---
PROCEDURE: CT abdomen and pelvis without contrast. TECHNIQUE: Multiple contiguous axial images were obtained through the abdomen and pelvis without the use of intravenous contrast. Auto Exposure Controls were utilized during the CT exam to meet ALARA standards for radiation dose reduction. INDICATION: Abdominal pain with bloody diarrhea Comparison is made with a study from 09/09/2019. There is hepatomegaly. The gallbladder is absent. The bile ducts are not dilated. The spleen, pancreas and adrenals are normal. There is an 8 mm nonobstructing calculus in the upper pole and a 1 cm nonobstructing calculus in the lower pole of the left kidney. There is a 6 mm nonobstructing calculus in the right kidney. There is no hydronephrosis on either side. The ureters and bladder are normal. The appendix is normal. No acute bowel abnormality is seen. There is no free intraperitoneal air or fluid. There is no acute bony abnormality. IMPRESSION: There are bilateral nonobstructing renal stones present. No acute abnormality is seen. Dictated by: Dictated on workstation # [id number]
[2020-01-12 21:33] LABS: POTASSIUM 3.5 MMOL/L (3.6-5.0)
[2020-01-12 21:34] LABS: CALCIUM 9.2 MG/DL (8.5-10.1)
[2020-01-12 21:39] LABS: CREATININE SERUM 1.32 MG/DL (0.60-1.30)
== END 2020-01-12 22:08 | disposition home or self-care (01) ==
LOC: EDUNIT# 20:47 → ER 20:49
DX: R19.7 Diarrhea, unspecified (principal); E66.01 Morbid (severe) obesity due to excess calories; G89.29 Other chronic pain; I10 Essential (primary) hypertension; E78.00 Pure hypercholesterolemia, unspecified; J44.9 Chronic obstructive pulmonary disease, unspecified; M54.9 Dorsalgia, unspecified; K21.9 Gastro-esophageal reflux disease without esophagitis; F31.9 Bipolar disorder, unspecified; Z68.42 Body mass index [BMI] 45.0-49.9, adult; Z83.3 Family history of diabetes mellitus; Z87.891 Personal history of nicotine dependence; Z79.82 Long term (current) use of aspirin; Z79.891 Long term (current) use of opiate analgesic
CPT/HCPCS: 36415; 74176; 80048; 85025

== ENCOUNTER 2020-02-16 18:51 | Emergency (ER) | payer MEDICAID ==
[~2020-02-16] VITALS: Ht 177.8 cm; Wt 163.5 kg
--- NOTE | 2020-02-16 19:02 | ED General ---
General Stated Complaint: DIZZY,LIGHTHEADED Source of Information: Patient Exam Limitations: No Limitations History of Present Illness Date Seen by Provider: Feb 16, 2020 Time Seen by Provider: 19:02 Initial Comments 49-year-old male presents with dizziness that started about an hour ago. He also has some right mid upper quadrant pain. Patient reports she has diarrhea that is chronic. He reports that the dizziness is worse if he stands up. He denies any chest pain, nausea, vomiting. He does report he has a history of colitis. He denies any cough, fevers, chills, loss of sense of taste or smell. Allergies and Home Medications Allergies Coded Allergies: No Known Drug Allergies (Unverified , 12/21/17) Home Medications Acetaminophen 500 Mg Tablet, 1,000 MG PO Q4H PRN for PAIN-MILD (1-4), (Reported) Albuterol Sulfate 1 Puff Puff, 2 PUFF IH Q4H PRN for SHORTNESS OF BREATH, (Reported) 1 PUFF = 90 MCG Allopurinol 100 Mg Tablet, 100 MG PO DAILY, (Reported) Aripiprazole 30 Mg Tablet, 30 MG PO DAILY, (Reported) Aspirin 81 Mg Tablet.dr, 81 MG PO DAILY, (Reported) Atorvastatin Calcium 40 Mg Tablet, 40 MG PO HS, (Reported) Benzonatate 100 Mg Capsule, 100 MG PO TID PRN for COUGH Prescribed by: BLANK ELIZABETH on 01/15/19 1140 Bupropion HCl 100 Mg Tablet, 100 MG PO 1200, (Reported) Bupropion HCl 100 Mg Tablet.er, 200 MG PO DAILY, (Reported) Famotidine 20 Mg Tablet, 20 MG PO BID, (Reported) Famotidine 20 Mg Tablet, 20 MG PO BID Prescribed by: SALTY MENDEZ on 01/17/19 1538 Fenofibrate Nanocrystallized 145 Mg Tablet, 145 MG PO HS, (Reported) Gabapentin 300 Mg Capsule, 300 MG PO BID, (Reported) Hydrochlorothiazide 25 Mg Tablet, 25 MG PO DAILY, (Reported) Hydrocodone Bit/Acetaminophen 1 Each Tablet, 1 TAB PO Q6H PRN for PAIN-MODERATE (5-7), (Reported) Hyoscyamine Sulfate 0.125 Mg Tablet, 0.125 MG PO QID, (Reported) L. Acidophilus/Bulgaricus 1 Each Tab.chew, 1 TAB PO DAILY, (Reported) Loperamide HCl 2 Mg Capsule, 2 MG PO QID PRN for LOOSE STOOLS, (Reported) Mesalamine 1.2 Gm Tablet.dr, 4.8 GM PO DAILY, (Reported) TAKES 4 (1.2GM) TABLETS Metoprolol Tartrate 50 Mg Tablet, 25 MG PO BID, (Reported) TAKES 1/2 (50MG) TABLET Multivitamin 1 Each Tablet, 1 TAB PO DAILY, (Reported) Nifedipine 30 Mg Tablet.er, 30 MG PO DAILY, (Reported) [place]-3 Acid Ethyl Esters 1 Gm Capsule, 2 GM PO 1200,2100, (Reported) TAKES 2 (1GM) CAPSULES Ondansetron 4 Mg Tab.rapdis, 4 MG PO Q6H PRN for NAUSEA/VOMITING Prescribed by: SALTY MENDEZ on 01/17/19 1538 Potassium Chloride 20 Meq Tab.er.prt, 40 MEQ PO BID, (Reported) TAKES 2 (20MEQ) TABLETS Ropinirole HCl 5 Mg Tablet, 5 MG PO 0800,1200,2100, (Reported) Solifenacin Succinate 5 Mg Tablet, 5 MG PO DAILY, (Reported) Sucralfate 1 Gm Tablet, 1 GM PO BID WITH MEALS, (Reported) Topiramate 200 Mg Tablet, 200 MG PO BID, (Reported) Patient Home Medication List Home Medication List Reviewed: Yes Review of Systems Review of Systems Constitutional: No chills; dizziness; No fever EENTM: no symptoms reported Respiratory: No cough, No short of breath Cardiovascular: No chest pain, No palpitations Gastrointestinal: abdominal pain, diarrhea (chronic ); No nausea, No vomiting Genitourinary: no symptoms reported Musculoskeletal: no symptoms reported Psychiatric/Neurological: See HPI Hematologic/Lymphatic: No Symptoms Reported Immunological/Allergic: no symptoms reported Past Alkbugp-Lsrtoz-Wfuvmq Hx Past Med/Social Hx: Reviewed Nursing Past Med/Soc Hx Patient Social History Alcohol Beverage of Choice: Beer Drug of Choice: Marijuana Type Used: Cigarettes Former Smoker, Quit: Jun 04, 2017 2nd Hand Smoke Exposure: No Recent Foreign Travel: No Contact w/Someone Who Travel: No Recent Hopitalizations: No Immunizations Up To Date Tetanus Booster (TDap): Unknown PED Vaccines UTD: No Date of Pneumonia Vaccine: May 22, 2016 Date of Influenza Vaccine: Nov 11, 2018 Seasonal Allergies Seasonal Allergies: No Past Medical History Surgeries: Yes Cardiac, Gallbladder, Orthopedic, Renal Respiratory: Yes (C-PAP MACHINE) Sleep Apnea, COPD Currently Using CPAP: Yes Currently Using BIPAP: No Cardiac: Yes High Cholesterol, Hypertension Neurological: No Reproductive Disorders: No Sexually Transmitted Disease: No HIV/AIDS: No Genitourinary: Yes Kidney Stones, Renal Failure Gastrointestinal: Yes (S/P EVELIO; FATTY LIVER ON CT. ) Colitis, Gastroesophageal Reflux, Gall Bladder Disease Musculoskeletal: Yes Arthritis, Chronic Back Pain Endocrine: Yes (MORBID OBESITY) Diabetes, Non-Insulin dep HEENT: Yes (POOR DENTITION) Cancer: No Psychosocial: Yes (BIPOLAR, POLYSUBSTANCE ABUSE) Anxiety, Bipolar, Depression Integumentary: No Blood Disorders: No Adverse Reaction/Blood Tranf: No Family Medical History Completed stroke DVT 19 MOTHER, , Onset:Unknown Diabetes mellitus 19 MOTHER, , Onset:Unknown G8 BROTHER, Onset:Unknown FH: gastric ulcer 19 FATHER, Onset:Unknown DVT/PE, Diabetes, GI Disease Physical Exam Vital Signs Vital Signs - First Documented 02/16/20 18:53 Temp 36.4 Pulse 116 Resp 20 B/P (MAP) 141/91 (108) O2 Delivery Room Air Capillary Refill : Height, Weight, BMI Height: 5'10.00" Weight: 330lbs. 3.0oz. 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 Norm as Tested Focused Exam Lactate Level 02/16/20 19:20: Lactic Acid Level 2.32*H 02/16/20 20:53: Lactic Acid Level 2.47*H Lactic Acid Level Laboratory Tests Test 02/16/20 19:20 02/16/20 20:53 Lactic Acid Level 2.32 MMOL/L (0.50-2.00) *H 2.47 MMOL/L (0.50-2.00) *H Progress/Results/Core Measures Suspected Sepsis SIRS Temperature: Pulse: Respiratory Rate: Laboratory Tests 02/16/20 19:14: White Blood Count 9.0 Blood Pressure / Mean: 02/16/20 19:20: Lactic Acid Level 2.32*H 02/16/20 20:53: Lactic Acid Level 2.47*H Laboratory Tests 02/16/20 19:14: Creatinine 1.05, Platelet Count 190, Total Bilirubin 0.3 Results/Orders Lab Results Laboratory Tests Test 02/16/20 19:14 02/16/20 19:20 02/16/20 20:00 02/16/20 20:53 Range/Units White Blood Count 9.0 4.3-11.0 10^3/uL Red Blood Count 4.85 4.35-5.85 10^6/uL Hemoglobin 15.1 13.3-17.7 G/DL Hematocrit 45 40-54 % Mean Corpuscular Volume 92 80-99 FL Mean Corpuscular Hemoglobin 31 25-34 PG Mean Corpuscular Hemoglobin Concent 34 32-36 G/DL Red Cell Distribution Width 13.2 10.0-14.5 % Platelet Count 190 130-400 10^3/uL Mean Platelet Volume 10.7 H 7.4-10.4 FL Immature Granulocyte % (Auto) 2 % Neutrophils (%) (Auto) 60 42-75 % Lymphocytes (%) (Auto) 28 12-44 % Monocytes (%) (Auto) 7 0-12 % Eosinophils (%) (Auto) 3 0-10 % Basophils (%) (Auto) 1 0-10 % Neutrophils # (Auto) 5.4 1.8-7.8 X 10^3 Lymphocytes # (Auto) 2.6 1.0-4.0 X 10^3 Monocytes # (Auto) 0.6 0.0-1.0 X 10^3 Eosinophils # (Auto) 0.2 0.0-0.3 10^3/uL Basophils # (Auto) 0.1 0.0-0.1 10^3/uL Immature Granulocyte # (Auto) 0.2 H 0.0-0.1 10^3/uL Erythrocyte Sedimentation Rate 14 0-30 MM/HR Sodium Level 135 135-145 MMOL/L Potassium Level 3.7 3.6-5.0 MMOL/L Chloride Level 102 98-107 MMOL/L Carbon Dioxide Level 21 21-32 MMOL/L Anion Gap 12 5-14 MMOL/L Blood Urea Nitrogen 10 7-18 MG/DL Creatinine 1.05 0.60-1.30 MG/DL Estimat Glomerular Filtration Rate > 60 BUN/Creatinine Ratio 10 Glucose Level 232 H 70-105 MG/DL Calcium Level 9.8 8.5-10.1 MG/DL Corrected Calcium 9.7 8.5-10.1 MG/DL Total Bilirubin 0.3 0.1-1.0 MG/DL Aspartate Amino Transf (AST/SGOT) 58 H 5-34 U/L Alanine Aminotransferase (ALT/SGPT) 61 H 0-55 U/L Alkaline Phosphatase 96 40-136 U/L C-Reactive Protein 0.87 H <0.50 MG/DL Total Protein 6.8 6.4-8.2 GM/DL Albumin 4.1 3.2-4.5 GM/DL Serum Alcohol < 10 <10 MG/DL Lactic Acid Level 2.32 *H 2.47 *H 0.50-2.00 MMOL/L Urine Color YELLOW Urine Clarity CLEAR Urine pH 7.0 5-9 Urine Specific [place] 1.015 L 1.016-1.022 Urine Protein NEGATIVE NEGATIVE Urine Glucose (UA) NEGATIVE NEGATIVE Urine Ketones NEGATIVE NEGATIVE Urine Nitrite POSITIVE H NEGATIVE Urine Bilirubin NEGATIVE NEGATIVE Urine Urobilinogen 0.2 < = 1.0 MG/DL Urine Leukocyte Esterase NEGATIVE NEGATIVE Urine RBC (Auto) NEGATIVE NEGATIVE Urine RBC NONE /HPF Urine WBC 0-2 /HPF Urine Squamous Epithelial Cells 0-2 /HPF Urine Crystals NONE /LPF Urine Leucine Crystals /LPF Urine Bacteria FEW H /HPF Urine Casts NONE /LPF Urine Mucus NEGATIVE /LPF Urine Culture Indicated YES My Orders Orders - BONILLA,MAHSA L DO Alcohol (02/16/20 19:06) Cbc With Automated Diff (02/16/20 19:06) Comprehensive Metabolic Panel (02/16/20 19:06) Erythrocyte Sedimentation Rate (02/16/20 19:06) Lactic Acid Analyzer (02/16/20 19:06) Ua Culture If Indicated (02/16/20 19:06) Crp Fs (02/16/20 19:06) Acute Abd Series (02/16/20 19:06) Lactated Ringers (Lr 1000 Ml Iv Solution (02/16/20 19:06) Lactated Ringers (Lr 1000 Ml Iv Solution (02/16/20 19:47) Ct Abdomen/Pelvis W (02/16/20 20:00) Urine Culture (02/16/20 20:00) Iohexol Injection (Omnipaque 350 Mg/Ml 1 (02/16/20 20:45) Received Contrast (Hold Metformin- Contr (02/16/20 20:45) Ns (Ivpb) (Sodium Chloride 0.9% Ivpb Bag (02/16/20 20:45) Nitrofurantoin Capsule,Macro (Macrobid C (02/16/20 21:15) Medications Given in ED Current Medications Medications Dose Ordered Sig/Saba Route Start Time Stop Time Status Last Admin Dose Admin Iohexol 100 ml ONCE ONCE IV 02/16/20 20:45 02/16/20 21:23 DC 02/16/20 20:38 100 ML Sodium Chloride 100 ml ONCE ONCE IV 02/16/20 20:45 02/16/20 21:23 DC 02/16/20 20:38 80 ML Vital Signs/I&O 02/16/20 02/16/20 02/16/20 18:53 19:34 19:46 Temp 36.4 36.4 36.4 Pulse 116 116 116 Resp 20 20 20 B/P (MAP) 141/91 (108) 141/91 141/91 O2 Delivery Room Air Room Air Room Air Capillary Refill : Progress Note : Time: 21:30 Progress Note Patient's symptoms improved with fluids. Patient has slight elevation of lactic acid, this is likely either baseline due to some issues with kidney clearance due to stage III kidney disease however his labs are unremarkable otherwise outside of a slight elevation in AST, ALT. He does have a urinary tract infect ion that looks mildly elevated treat with Macrobid. CT abdomen and pelvis shows no acute findings outside of fatty liver. I suspect that the lactic if not due to baseline kidney clearance is likely medication induced due to his significant medication list. I will have him follow-up with his primary care provider in approximately 2 days for recheck of today symptoms. Patient has no signs of sepsis with no fever, stable vital signs, no significant inflammatory and infectious markers with a questionable UTI, he does have elevated blood pressures sugar and is likely borderline diabetic which she should also follow up with. Patient stable at discharge Diagnostic Imaging Diagonstic Imaging: Xray, CT Plain Films/CT/US/NM/MRI: abdomen Comments [facility] [place], [place] NAME: [facility] REC#: [id number] PT STATUS: REG ER : 1970 PHYSICIAN: MAHSA BONILLA DO ADMIT DATE: 02/16/20/ER FS Draft Date of Exam:02/16/20 CT ABDOMEN/PELVIS W PROCEDURE: CT abdomen and pelvis with contrast. TECHNIQUE: Multiple contiguous axial images were obtained through the abdomen and pelvis after administration of intravenous contrast. Auto Exposure Controls were utilized during the CT exam to meet ALARA standards for radiation dose reduction. All CT scans use one or more of the following dose optimizing techniques: automated exposure control, MA and/or KvP adjustment based on patient size and exam type or iterative reconstruction. INDICATION: Lower abdominal pain. COMPARISON: 01/12/2020. FINDINGS: Included portions of the lung bases are clear. CT abdomen: Lateral margins of the abdomen are not entirely included in the [id number] secondary to patient body habitus. This does involve portions of the colon. Visualized portions of the colon are grossly unremarkable. Normal appendix is identified. Small bowel loops are nondistended. Bilateral nonobstructive renal calculi are identified. No renal calculi are seen on either side. Additionally, there is no hydroureteronephrosis or other evidence of obstruction. Small renal cysts are present, bilaterally. The adrenal glands, spleen and pancreas have a normal CT appearance. Liver is diffusely hypodense on this postcontrast exam consistent with hepatic steatosis. There is no loculated fluid collection, free fluid or free air within the abdomen. No abnormal mesenteric or retroperitoneal adenopathy is seen. Osseous structures show no acute abnormality. CT pelvis: Urinary bladder is unopacified. No calculi are seen within the urinary bladder. There is no loculated fluid collection, free fluid or free air within the pelvis. No abnormal lymph node is identified. Osseous structures show no acute abnormality. IMPRESSION: 1. Bilateral nonobstructive renal calculi. 2. Hepatic steatosis. Departure Impression Primary Impression: Dizziness Additional Impressions: Hyperglycemia Elevated lactic acid level Urinary tract infection Qualified Codes: N30.00 - Acute cystitis without hematuria Disposition: HOME, SELF-CARE Condition: Stable Departure-Patient Inst. Referrals: ÁNGEL CASPER MD (PCP/Family) Primary Care Physician Patient Instructions: Prediabetes (DC), The ABCs of Diabetes, Urinary Tract Infection, Adult ED, Dealing with Dizziness from the Drugs You Take Add. Discharge Instructions: Follow-up with your primary care provider for recheck of your blood sugars, medication review and recheck of your urinary tract infection within the next couple days Scripts Nitrofurantoin Macrocrystal (Nitrofurantoin) 100 Mg Capsule 100 MG PO BID, #10 CAP 0 Refills Prov: MAHSA BONILLA DO 02/16/20 MAHSA BONILLA DO Feb 16, 2020 19:02
[2020-02-16] MEDS ORDERED: LACTATED RINGERS 1,000 ML IV STA ×2 (19:06→19:47)
[2020-02-16 19:23] LABS: BASOPHILS % (AUTO) 1 % (0-10); EOSINOPHILS % (AUTO) 3 % (0-10); HEMATOCRIT 45 % (40-54); HEMOGLOBIN 15.1 G/DL (13.3-17.7); LYMPHOCYTES % (AUTO) 28 % (12-44); MEAN CORPUSCULAR HEMOGLOBIN 31 PG (25-34); MEAN CORPUSCULAR HGB CONC 34 G/DL (32-36); MEAN CORPUSCULAR VOLUME 92 FL (80-99); MEAN PLATELET VOLUME 10.7 FL (7.4-10.4); MONOCYTES % (AUTO) 7 % (0-12); NEUTROPHILS % (AUTO) 60 % (42-75); PLATELET COUNT 190 10^3/uL (130-400)
[2020-02-16 19:24] LABS: BASOPHILS # (AUTO) 0.1 10^3/uL (0.0-0.1); EOSINOPHILS # (AUTO) 0.2 10^3/uL (0.0-0.3); LYMPHOCYTES # (AUTO) 2.6 X 10^3 (1.0-4.0); MONOCYTES # (AUTO) 0.6 X 10^3 (0.0-1.0); NEUTROPHILS # (AUTO) 5.4 X 10^3 (1.8-7.8)
[2020-02-16 19:43] LABS: ALANINE AMINOTRANSFERASE 61 U/L (0-55); ALBUMIN 4.1 GM/DL (3.2-4.5); ALKALINE PHOSPHATASE 96 U/L (40-136); BILIRUBIN,TOTAL 0.3 MG/DL (0.1-1.0); BUN/CREATININE RATIO 10; CALCIUM 9.8 MG/DL (8.5-10.1); CARBON DIOXIDE 21 MMOL/L (21-32); CHLORIDE 102 MMOL/L (98-107); CREATININE SERUM 1.05 MG/DL (0.60-1.30); GFR ESTIMATED > 60; GLUCOSE 232 MG/DL (70-105); POTASSIUM 3.7 MMOL/L (3.6-5.0); SODIUM 135 MMOL/L (135-145); TOTAL PROTEIN 6.8 GM/DL (6.4-8.2)
--- NOTE | 2020-02-16 20:07 | Diagnostic Imaging Report ---
INDICATION: Abdominal pain. COMPARISON: 01/14/2019. EXAMINATION: Frontal radiographic views of the chest were obtained. FINDINGS: Normal cardiac silhouette and pulmonary vasculature. Pulmonary interstitium is mildly diffusely prominent, but this is stable when compared to 01/14/2019 and is likely a chronic change. There is no new focal alveolar consolidation, large effusion or pneumothorax. Supine and upright radiographic views of the abdomen show nondistended loops of small bowel. No abnormal air-fluid level is are seen. There is no large collection of free intraperitoneal air. Exam however is moderately limited secondary to soft tissue attenuation. There is bulky calcification within the left hemiabdomen that measures 1.5 cm and corresponds to left renal calculus seen on previous CT. Subtle right renal calculus is also noted. No unexpected radiopaque foreign body is seen. IMPRESSION: 1. No acute cardiopulmonary process. 2. Nonobstructed small bowel gas pattern. 3. Bilateral nephrolithiasis. Dictated by: Dictated on workstation # [id number]
[2020-02-16 20:13] LABS: BACTERIA,URINE FEW /HPF; BILIRUBIN,URINE NEGATIVE (NEGATIVE); CLARITY,URINE CLEAR; COLOR,URINE YELLOW; GLUCOSE, URINE (UA) NEGATIVE (NEGATIVE); KETONES,URINE NEGATIVE (NEGATIVE); LEUKOCYTE ESTERASE ,URINE NEGATIVE (NEGATIVE); NITRITE,URINE POSITIVE (NEGATIVE); PROTEIN,URINE NEGATIVE (NEGATIVE); SQUAMOUS EPITHELIAL CELL,UR 0-2 /HPF; WBC,URINE 0-2 /HPF
[2020-02-16 20:16] LABS: ERYTHROCYTE SEDIMENTATION RATE 14 MM/HR (0-30)
[2020-02-16] MEDS ORDERED: HOLD METFORMIN - RECEIVED CONTRAST 20 ML VIAL IV SCH (20:45)
[2020-02-16] MEDS ORDERED: IOHEXOL 350 MG/ML 100 ML (OMNIPAQUE 350) VIAL IV ONE (20:45)
[2020-02-16] MEDS ORDERED: NS 100 ML (IVPB) BAG IV ONE (20:45)
--- NOTE | 2020-02-16 20:59 | Diagnostic Imaging Report ---
PROCEDURE: CT abdomen and pelvis with contrast. TECHNIQUE: Multiple contiguous axial images were obtained through the abdomen and pelvis after administration of intravenous contrast. Auto Exposure Controls were utilized during the CT exam to meet ALARA standards for radiation dose reduction. All CT scans use one or more of the following dose optimizing techniques: automated exposure control, MA and/or KvP adjustment based on patient size and exam type or iterative reconstruction. INDICATION: Lower abdominal pain. COMPARISON: 01/12/2020. FINDINGS: Included portions of the lung bases are clear. CT abdomen: Lateral margins of the abdomen are not entirely included in the [id number] secondary to patient body habitus. This does involve portions of the colon. Visualized portions of the colon are grossly unremarkable. Normal appendix is identified. Small bowel loops are nondistended. Bilateral nonobstructive renal calculi are identified. No renal calculi are seen on either side. Additionally, there is no hydroureteronephrosis or other evidence of obstruction. Small renal cysts are present, bilaterally. The adrenal glands, spleen and pancreas have a normal CT appearance. Liver is diffusely hypodense on this postcontrast exam consistent with hepatic steatosis. There is no loculated fluid collection, free fluid or free air within the abdomen. No abnormal mesenteric or retroperitoneal adenopathy is seen. Osseous structures show no acute abnormality. CT pelvis: Urinary bladder is unopacified. No calculi are seen within the urinary bladder. There is no loculated fluid collection, free fluid or free air within the pelvis. No abnormal lymph node is identified. Osseous structures show no acute abnormality. IMPRESSION: 1. Bilateral nonobstructive renal calculi. 2. Hepatic steatosis. Dictated by: Dictated on workstation # [id number]
[2020-02-16] MEDS ORDERED: NITROFURANTOIN 100 MG (MACROBID) CAPSULE PO ONE (21:15)
[2020-02-16] MEDS ORDERED: NITR100C PO (21:37)
[2020-02-16 21:56] VITALS: BP 127/73
== END 2020-02-16 21:58 | disposition home or self-care (01) ==
LOC: EDUNIT# 18:51 → ER FS 18:53
DX: R42 Dizziness and giddiness (principal); R73.9 Hyperglycemia, unspecified; N39.0 Urinary tract infection, site not specified; R74.02 Elevation of levels of lactic acid dehydrogenase [LDH]; E66.01 Morbid (severe) obesity due to excess calories; J44.9 Chronic obstructive pulmonary disease, unspecified; E78.00 Pure hypercholesterolemia, unspecified; I10 Essential (primary) hypertension; G89.29 Other chronic pain; F31.9 Bipolar disorder, unspecified; K21.9 Gastro-esophageal reflux disease without esophagitis; M54.9 Dorsalgia, unspecified; Z68.42 Body mass index [BMI] 45.0-49.9, adult; Z83.3 Family history of diabetes mellitus; Z87.891 Personal history of nicotine dependence; Z79.891 Long term (current) use of opiate analgesic; Z79.82 Long term (current) use of aspirin
CPT/HCPCS: 36415; 74022; 74177; 80053; 80320; 81000; 83605; 85025; 85652; 86141; 87088

== ENCOUNTER 2020-02-20 23:55 | Emergency (ER) | payer MEDICAID ==
[~2020-02-20] VITALS: Ht 177.8 cm; Wt 163.3 kg
[~2020-02-20 23:55] MED LIST changes: +NITR100C PO
--- NOTE | 2020-02-21 00:21 | ED General ---
General Chief Complaint: Glucose Problems Stated Complaint: HIGH BP;DIARRHEA Source of Information: Patient Exam Limitations: No Limitations History of Present Illness Date Seen by Provider: Feb 21, 2020 Time Seen by Provider: 00:16 Initial Comments Patient is a 49-year-old male who presents to the emergency department today with a chief complaint of diarrhea and elevated blood sugar. Patient states that he had some [employer] this evening and subsequent to that had multiple episodes of diarrhea, 5-6. Patient states his last bowel movement was "nothing but water". Patient denies any black or bloody stool. He denies any problems with urination. He tells me that he has a history of stage III chronic kidney disease and sees Dr. Bauman. Patient is not currently on medications for diabetes. He states he has a follow-up appointment with his primary care doctor on February 27 for discussion on what kinds of medications to be placed on. Patient tells me that he was in the emergency room in [place] a couple of days ago for an elevated blood sugar at 250 and a urinary tract infection. Patient denies any fevers or chills. No cough, shortness of breath. No nausea or vomiting. No abdominal pain. All other review of systems reviewed and negative except as stated. Timing/Duration: 1-3 Hours Severity: Moderate Associated Systoms: Denies Symptoms Allergies and Home Medications Allergies Coded Allergies: No Known Drug Allergies (Unverified , 12/21/17) Home Medications Acetaminophen 500 Mg Tablet, 1,000 MG PO Q4H PRN for PAIN-MILD (1-4), (Reported) Albuterol Sulfate 1 Puff Puff, 2 PUFF IH Q4H PRN for SHORTNESS OF BREATH, (Reported) 1 PUFF = 90 MCG Allopurinol 100 Mg Tablet, 100 MG PO DAILY, (Reported) Aripiprazole 30 Mg Tablet, 30 MG PO DAILY, (Reported) Aspirin 81 Mg Tablet.dr, 81 MG PO DAILY, (Reported) Atorvastatin Calcium 40 Mg Tablet, 40 MG PO HS, (Reported) Benzonatate 100 Mg Capsule, 100 MG PO TID PRN for COUGH Prescribed by: BLANK ELIZABETH on 01/15/19 1140 Bupropion HCl 100 Mg Tablet, 100 MG PO 1200, (Reported) Bupropion HCl 100 Mg Tablet.er, 200 MG PO DAILY, (Reported) Famotidine 20 Mg Tablet, 20 MG PO BID, (Reported) Famotidine 20 Mg Tablet, 20 MG PO BID Prescribed by: SALTY MENDEZ on 01/17/19 1538 Fenofibrate Nanocrystallized 145 Mg Tablet, 145 MG PO HS, (Reported) Gabapentin 300 Mg Capsule, 300 MG PO BID, (Reported) Hydrochlorothiazide 25 Mg Tablet, 25 MG PO DAILY, (Reported) Hydrocodone Bit/Acetaminophen 1 Each Tablet, 1 TAB PO Q6H PRN for PAIN-MODERATE (5-7), (Reported) Hyoscyamine Sulfate 0.125 Mg Tablet, 0.125 MG PO QID, (Reported) L. Acidophilus/Bulgaricus 1 Each Tab.chew, 1 TAB PO DAILY, (Reported) Loperamide HCl 2 Mg Capsule, 2 MG PO QID PRN for LOOSE STOOLS, (Reported) Mesalamine 1.2 Gm Tablet.dr, 4.8 GM PO DAILY, (Reported) TAKES 4 (1.2GM) TABLETS Metoprolol Tartrate 50 Mg Tablet, 25 MG PO BID, (Reported) TAKES 1/2 (50MG) TABLET Multivitamin 1 Each Tablet, 1 TAB PO DAILY, (Reported) Nifedipine 30 Mg Tablet.er, 30 MG PO DAILY, (Reported) Nitrofurantoin Macrocrystal 100 Mg Capsule, 100 MG PO BID Prescribed by: MAHSA BONILLA on 02/16/202136 [place]-3 Acid Ethyl Esters 1 Gm Capsule, 2 GM PO 1200,2100, (Reported) TAKES 2 (1GM) CAPSULES Ondansetron 4 Mg Tab.rapdis, 4 MG PO Q6H PRN for NAUSEA/VOMITING Prescribed by: SALTY MENDEZ on 01/17/191537 Potassium Chloride 20 Meq Tab.er.prt, 40 MEQ PO BID, (Reported) TAKES 2 (20MEQ) TABLETS Ropinirole HCl 5 Mg Tablet, 5 MG PO 0800,1200,2100, (Reported) Solifenacin Succinate 5 Mg Tablet, 5 MG PO DAILY, (Reported) Sucralfate 1 Gm Tablet, 1 GM PO BID WITH MEALS, (Reported) Topiramate 200 Mg Tablet, 200 MG PO BID, (Reported) Patient Home Medication List Home Medication List Reviewed: Yes Review of Systems Review of Systems Constitutional: see HPI EENTM: no symptoms reported Respiratory: no symptoms reported Cardiovascular: no symptoms reported Gastrointestinal: diarrhea Genitourinary: no symptoms reported Musculoskeletal: no symptoms reported Skin: no symptoms reported All Other Systems Reviewed Negative Unless Noted: Yes Past Ilcdlyj-Hgefjq-Hhfhdb Hx Patient Social History Alcohol Beverage of Choice: Beer Drug of Choice: marijuana Type Used: Cigarettes Former Smoker, Quit: Jun 04, 2017 2nd Hand Smoke Exposure: No Recent Foreign Travel: No Contact w/Someone Who Travel: No Recent Hopitalizations: No Immunizations Up To Date Tetanus Booster (TDap): Unknown PED Vaccines UTD: No Date of Pneumonia Vaccine: May 22, 2016 Date of Influenza Vaccine: Nov 11, 2018 Seasonal Allergies Seasonal Allergies: No Past Medical History Surgeries: Yes Cardiac, Gallbladder, Orthopedic, Renal Respiratory: Yes (C-PAP MACHINE) Sleep Apnea, COPD Currently Using CPAP: Yes Currently Using BIPAP: No Cardiac: Yes High Cholesterol, Hypertension Neurological: No Reproductive Disorders: No Sexually Transmitted Disease: No HIV/AIDS: No Genitourinary: Yes Kidney Stones, Renal Failure Gastrointestinal: Yes (S/P EVELIO; FATTY LIVER ON CT. ) Colitis, Gastroesophageal Reflux, Gall Bladder Disease Musculoskeletal: Yes Arthritis, Chronic Back Pain Endocrine: Yes (MORBID OBESITY) Diabetes, Non-Insulin dep HEENT: Yes (POOR DENTITION) Cancer: No Psychosocial: Yes (BIPOLAR, POLYSUBSTANCE ABUSE) Anxiety, Bipolar, Depression Integumentary: No Blood Disorders: No Adverse Reaction/Blood Tranf: No Family Medical History Completed stroke DVT 19 MOTHER, , Onset:Unknown Diabetes mellitus 19 MOTHER, , Onset:Unknown G8 BROTHER, Onset:Unknown FH: gastric ulcer 19 FATHER, Onset:Unknown DVT/PE, Diabetes, GI Disease Physical Exam Vital Signs Vital Signs - First Documented 02/21/20 00:05 Temp 36.0 Pulse 96 Resp 22 B/P (MAP) 136/88 (104) Pulse Ox 96 O2 Delivery Room Air Capillary Refill : Height, Weight, BMI Height: 5'10.00" Weight: 330lbs. 3.0oz. 149.923270kh; 51.00 BMI Method:Stated General Appearance: No Apparent Distress, WD/WN Respiratory: Lungs Clear, Normal Breath Sounds, Other (Slightly tachypneic) Cardiovascular: Regular Rate, Rhythm Gastrointestinal: Normal Bowel Sounds, Non Tender, Soft Extremity: Normal Inspection, No Pedal Edema Neurologic/Psychiatric: Oriented x3, No Motor/Sensory Deficits, Normal Mood/Affect Progress/Results/Core Measures Suspected Sepsis SIRS Temperature: Pulse: Respiratory Rate: Laboratory Tests 02/21/20 00:10: White Blood Count 7.5 Blood Pressure / Mean: Laboratory Tests 02/21/20 00:10: Creatinine 1.26, Platelet Count 188 Results/Orders Lab Results Laboratory Tests Test 02/21/20 00:10 02/21/20 00:23 Range/Units White Blood Count 7.5 4.3-11.0 10^3/uL Red Blood Count 4.79 4.30-5.52 10^6/uL Hemoglobin 14.9 13.3-17.7 g/dL Hematocrit 45 40-54 % Mean Corpuscular Volume 93 80-99 fL Mean Corpuscular Hemoglobin 31 25-34 pg Mean Corpuscular Hemoglobin Concent 33 32-36 g/dL Red Cell Distribution Width 13.2 10.0-14.5 % Platelet Count 188 130-400 10^3/uL Mean Platelet Volume 11.0 9.0-12.2 fL Immature Granulocyte % (Auto) 2 % Neutrophils (%) (Auto) 61 42-75 % Lymphocytes (%) (Auto) 26 12-44 % Monocytes (%) (Auto) 8 0-12 % Eosinophils (%) (Auto) 2 0-10 % Basophils (%) (Auto) 1 0-10 % Neutrophils # (Auto) 4.6 1.8-7.8 10^3/uL Lymphocytes # (Auto) 2.0 1.0-4.0 10^3/uL Monocytes # (Auto) 0.6 0.0-1.0 10^3/uL Eosinophils # (Auto) 0.2 0.0-0.3 10^3/uL Basophils # (Auto) 0.1 0.0-0.1 10^3/uL Immature Granulocyte # (Auto) 0.1 0.0-0.1 10^3/uL Sodium Level 133 L 135-145 MMOL/L Potassium Level 3.9 3.6-5.0 MMOL/L Chloride Level 105 98-107 MMOL/L Carbon Dioxide Level 17 L 21-32 MMOL/L Anion Gap 11 5-14 MMOL/L Blood Urea Nitrogen 11 7-18 MG/DL Creatinine 1.26 0.60-1.30 MG/DL Estimat Glomerular Filtration Rate > 60 BUN/Creatinine Ratio 9 Glucose Level 347 H 70-105 MG/DL Calcium Level 8.9 8.5-10.1 MG/DL Glucometer 317 H 70-110 MG/DL My Orders Orders - JOHANN GRAHAM MD Cbc With Automated Diff (02/21/20 00:21) Basic Metabolic Panel (02/21/20 00:21) Ns Iv 1000 Ml (Sodium Chloride 0.9%) (02/21/20 00:22) Accucheck Stat ONCE (02/21/20 00:22) Vital Signs/I&O 02/21/20 00:05 Temp 36.0 Pulse 96 Resp 22 B/P (MAP) 136/88 (104) Pulse Ox 96 O2 Delivery Room Air Capillary Refill : Progress Note : Time: 00:20 Progress Note 49-year-old male presents to the emergency department with a chief complaint of high blood sugar and diarrhea. Evaluation today includes a physical exam, CBC, BM 7. Patient will be given a liter of IV fluids as the patient is likely somewhat volume depleted due to his diarrhea. And with his history of CKD stage III he will probably need a little intravascular volume. Clinically he does not look toxic. He is awake alert, oriented, mentating appropriately. He is not on medications for his blood sugar but does have follow-up appointment within the next 7 days with his primary care doctor. In all likelihood the plan will be to hydrate him as stated, check his basic labs, recheck a blood sugar after liter of fluids once he is under 300 he will be discharged home with some information on monitoring his blood sugar. Patient is supposed to monitor it daily however admittedly does not do that. We will try and encourage him to do this. Departure Impression Primary Impression: Diarrhea Qualified Codes: R19.7 - Diarrhea, unspecified Additional Impression: Hyperglycemia due to type 2 diabetes mellitus Qualified Codes: E11.65 - Type 2 diabetes mellitus with hyperglycemia Disposition: HOME, SELF-CARE Condition: Stable Departure-Patient Inst. Decision time for Depature: 00:53 Referrals: ÁNGEL CASPER MD (PCP/Family) Primary Care Physician Patient Instructions: Diabetes Type 2 (DC), Diabetes Diet Add. Discharge Instructions: Please check your sugars at least twice daily. Watch your intake of carbohydrates/sugar. Drink plenty of fluids, water, to stay well-hydrated. Please keep your follow-up appointment with your primary care physician on February 27. Return to the emergency room for any worsening symptoms of diarrhea especially associated with abdominal pain or fever. JOHANN GRAHMA MD Feb 21, 2020 00:21
[2020-02-21] MEDS ORDERED: NS IV 1000 ML 1,000 ML IV STA (00:22)
[2020-02-21 00:28] LABS: BASOPHILS # (AUTO) 0.1 10^3/uL (0.0-0.1); BASOPHILS % (AUTO) 1 % (0-10); EOSINOPHILS # (AUTO) 0.2 10^3/uL (0.0-0.3); EOSINOPHILS % (AUTO) 2 % (0-10); HEMATOCRIT 45 % (40-54); HEMOGLOBIN 14.9 g/dL (13.3-17.7); LYMPHOCYTES % (AUTO) 26 % (12-44); MEAN CORPUSCULAR HEMOGLOBIN 31 pg (25-34); MEAN CORPUSCULAR HGB CONC 33 g/dL (32-36); MEAN CORPUSCULAR VOLUME 93 fL (80-99); MONOCYTES # (AUTO) 0.6 10^3/uL (0.0-1.0); MONOCYTES % (AUTO) 8 % (0-12); NEUTROPHILS # (AUTO) 4.6 10^3/uL (1.8-7.8); NEUTROPHILS % (AUTO) 61 % (42-75); PLATELET COUNT 188 10^3/uL (130-400); WHITE BLOOD COUNT 7.5 10^3/uL (4.3-11.0)
[2020-02-21 00:33] LABS: CHLORIDE 105 MMOL/L (98-107); POTASSIUM 3.9 MMOL/L (3.6-5.0); SODIUM 133 MMOL/L (135-145)
[2020-02-21 00:34] LABS: CALCIUM 8.9 MG/DL (8.5-10.1)
[2020-02-21 00:35] LABS: GLUCOSE 347 MG/DL (70-105)
[2020-02-21 00:36] LABS: CARBON DIOXIDE 17 MMOL/L (21-32)
[2020-02-21 00:39] LABS: CREATININE SERUM 1.26 MG/DL (0.60-1.30); GFR ESTIMATED > 60
[2020-02-21 00:40] LABS: BUN/CREATININE RATIO 9
[2020-02-21 01:30] VITALS: BP 129/79
== END 2020-02-21 01:31 | disposition home or self-care (01) ==
LOC: EDUNIT# 23:55 → ER 23:58
DX: R19.7 Diarrhea, unspecified (principal); E11.65 Type 2 diabetes mellitus with hyperglycemia; K21.9 Gastro-esophageal reflux disease without esophagitis; E78.00 Pure hypercholesterolemia, unspecified; J44.9 Chronic obstructive pulmonary disease, unspecified; I10 Essential (primary) hypertension; F31.9 Bipolar disorder, unspecified; E66.01 Morbid (severe) obesity due to excess calories; Z83.3 Family history of diabetes mellitus; Z87.891 Personal history of nicotine dependence; Z68.43 Body mass index [BMI] 50.0-59.9, adult; Z79.82 Long term (current) use of aspirin
CPT/HCPCS: 36415; 80048; 82962; 85025

== ENCOUNTER 2020-03-04 20:15 | Emergency (ER) | payer MEDICAID ==
[~2020-03-04] VITALS: Ht 177.8 cm; Wt 163.3 kg
[2020-03-04 21:17] LABS: BASOPHILS # (AUTO) 0.1 10^3/uL (0.0-0.1); BASOPHILS % (AUTO) 1 % (0-10); EOSINOPHILS # (AUTO) 0.3 10^3/uL (0.0-0.3); EOSINOPHILS % (AUTO) 3 % (0-10); HEMATOCRIT 43 % (40-54); HEMOGLOBIN 14.6 g/dL (13.3-17.7); LYMPHOCYTES # (AUTO) 2.3 10^3/uL (1.0-4.0); LYMPHOCYTES % (AUTO) 29 % (12-44); MEAN CORPUSCULAR HEMOGLOBIN 31 pg (25-34); MEAN CORPUSCULAR HGB CONC 34 g/dL (32-36); MEAN CORPUSCULAR VOLUME 93 fL (80-99); MEAN PLATELET VOLUME 10.7 fL (9.0-12.2); MONOCYTES # (AUTO) 0.6 10^3/uL (0.0-1.0); MONOCYTES % (AUTO) 8 % (0-12); NEUTROPHILS # (AUTO) 4.6 10^3/uL (1.8-7.8); NEUTROPHILS % (AUTO) 57 % (42-75); PLATELET COUNT 184 10^3/uL (130-400); WHITE BLOOD COUNT 7.9 10^3/uL (4.3-11.0)
--- NOTE | 2020-03-04 21:25 | Diagnostic Imaging Report ---
CHEST 1 VIEW, AP/PA ONLY Indication: Chest pain. Comparison: 02/16/2020 Findings: No focal airspace disease in the visualized lungs. Please note that the posterior lower lobes are poorly evaluated by portable radiography. No pleural effusion or pneumothorax. Normal cardiomediastinal silhouette. Impression: 1. No acute cardiopulmonary process by portable radiography. Dictated by: Dictated on workstation # [id number]
[2020-03-04 21:30] LABS: ALBUMIN 4.1 GM/DL (3.2-4.5); CHLORIDE 107 MMOL/L (98-107); POTASSIUM 3.5 MMOL/L (3.6-5.0); SODIUM 136 MMOL/L (135-145)
[2020-03-04 21:31] LABS: CALCIUM 9.3 MG/DL (8.5-10.1); PROTHROMBIN TIME PATIENT 13.1 SEC (12.2-14.7)
[2020-03-04 21:32] LABS: GLUCOSE 153 MG/DL (70-105); TOTAL PROTEIN 6.6 GM/DL (6.4-8.2)
[2020-03-04 21:33] LABS: CARBON DIOXIDE 19 MMOL/L (21-32)
[2020-03-04 21:34] LABS: BILIRUBIN,TOTAL 0.4 MG/DL (0.1-1.0)
[2020-03-04 21:36] LABS: ALKALINE PHOSPHATASE 76 U/L (40-136); GFR ESTIMATED > 60
[2020-03-04 21:37] LABS: BUN/CREATININE RATIO 10
[2020-03-04 21:39] LABS: ALANINE AMINOTRANSFERASE 75 U/L (0-55); MAGNESIUM 1.6 MG/DL (1.6-2.4)
[2020-03-04 21:40] LABS: LIPASE 85 U/L (8-78)
--- NOTE | 2020-03-04 22:09 | ED General ---
General Chief Complaint: Respiratory Problems Stated Complaint: SOB;UPPER GI PAIN/CP Nursing Triage Note: C/O RIGHT SIDED UPPER ABDOMINAL/RIB PAIN. VERBALIZES INCREASED SHORTNESS OF BREATH R/T INHALATION D/T PAIN. STATES THE PAIN STARTED ONE HOUR AFTER EATING (1900) Nursing Sepsis Screen: No Definite Risk Source of Information: Patient Exam Limitations: No Limitations History of Present Illness Date Seen by Provider: Mar 04, 2020 Time Seen by Provider: 21:01 Initial Comments Here with right upper quadrant abdominal pain that is worse with deep breathing. States that he has a little bit of wheezing going on in that is new. Onset after eating a couple slices of pizza. Patient has had previous cholecystectomy. Denies nausea, vomiting or diarrhea. Denies Covid exposure but does state that he goes out into the community and wears his mask most of the time. Denies fever chills. Timing/Duration: 1 Hour Severity: Moderate Associated Systoms: No Chest Pain, No Fever/Chills, No Nausea/Vomiting; Shortness of Air Allergies and Home Medications Allergies Coded Allergies: No Known Drug Allergies (Unverified , 12/21/17) Home Medications Acetaminophen 500 Mg Tablet, 1,000 MG PO Q4H PRN for PAIN-MILD (1-4), (Reported) Albuterol Sulfate 1 Puff Puff, 2 PUFF IH Q4H PRN for SHORTNESS OF BREATH, (Reported) 1 PUFF = 90 MCG Allopurinol 100 Mg Tablet, 100 MG PO DAILY, (Reported) Aripiprazole 30 Mg Tablet, 30 MG PO DAILY, (Reported) Aspirin 81 Mg Tablet.dr, 81 MG PO DAILY, (Reported) Atorvastatin Calcium 40 Mg Tablet, 40 MG PO HS, (Reported) Benzonatate 100 Mg Capsule, 100 MG PO TID PRN for COUGH Prescribed by: BLANK ELIZABETH on 01/15/19 1140 Bupropion HCl 100 Mg Tablet, 100 MG PO 1200, (Reported) Bupropion HCl 100 Mg Tablet.er, 200 MG PO DAILY, (Reported) Famotidine 20 Mg Tablet, 20 MG PO BID, (Reported) Famotidine 20 Mg Tablet, 20 MG PO BID Prescribed by: SALTY MENDEZ on 01/17/19 1538 Fenofibrate Nanocrystallized 145 Mg Tablet, 145 MG PO HS, (Reported) Gabapentin 300 Mg Capsule, 300 MG PO BID, (Reported) Hydrochlorothiazide 25 Mg Tablet, 25 MG PO DAILY, (Reported) Hydrocodone Bit/Acetaminophen 1 Each Tablet, 1 TAB PO Q6H PRN for PAIN-MODERATE (5-7), (Reported) Hyoscyamine Sulfate 0.125 Mg Tablet, 0.125 MG PO QID, (Reported) L. Acidophilus/Bulgaricus 1 Each Tab.chew, 1 TAB PO DAILY, (Reported) Loperamide HCl 2 Mg Capsule, 2 MG PO QID PRN for LOOSE STOOLS, (Reported) Mesalamine 1.2 Gm Tablet.dr, 4.8 GM PO DAILY, (Reported) TAKES 4 (1.2GM) TABLETS Metoprolol Tartrate 50 Mg Tablet, 25 MG PO BID, (Reported) TAKES 1/2 (50MG) TABLET Multivitamin 1 Each Tablet, 1 TAB PO DAILY, (Reported) Nifedipine 30 Mg Tablet.er, 30 MG PO DAILY, (Reported) Nitrofurantoin Macrocrystal 100 Mg Capsule, 100 MG PO BID Prescribed by: MAHSA BONILLA on 02/16/202136 [place]-3 Acid Ethyl Esters 1 Gm Capsule, 2 GM PO 1200,2100, (Reported) TAKES 2 (1GM) CAPSULES Ondansetron 4 Mg Tab.rapdis, 4 MG PO Q6H PRN for NAUSEA/VOMITING Prescribed by: SALTY MENDEZ on 01/17/19 1538 Potassium Chloride 20 Meq Tab.er.prt, 40 MEQ PO BID, (Reported) TAKES 2 (20MEQ) TABLETS Ropinirole HCl 5 Mg Tablet, 5 MG PO 0800,1200,2100, (Reported) Solifenacin Succinate 5 Mg Tablet, 5 MG PO DAILY, (Reported) Sucralfate 1 Gm Tablet, 1 GM PO BID WITH MEALS, (Reported) Topiramate 200 Mg Tablet, 200 MG PO BID, (Reported) Patient Home Medication List Home Medication List Reviewed: Yes Review of Systems Review of Systems Constitutional: see HPI; No chills, No fever EENTM: No nose congestion, No throat pain Respiratory: No cough; short of breath, wheezing Cardiovascular: see HPI; No edema, No palpitations Gastrointestinal: abdominal pain; No nausea, No vomiting Genitourinary: no symptoms reported Musculoskeletal: no symptoms reported Skin: no symptoms reported Psychiatric/Neurological: No Symptoms Reported All Other Systems Reviewed Negative Unless Noted: Yes Past Hvczvns-Dayngg-Cnttvl Hx Past Med/Social Hx: Reviewed Nursing Past Med/Soc Hx Patient Social History Alcohol Use: Occasionally Uses Number of Drinks Today: AA Alcohol Beverage of Choice: Beer Recreational Drug Use: Yes Drug of Choice: marijuana Type Used: Cigarettes Former Smoker, Quit: Jun 04, 2017 2nd Hand Smoke Exposure: No Recent Foreign Travel: No Contact w/Someone Who Travel: No Recent Infectious Disease Expo: No Recent Hopitalizations: No Physical Abuse: No Sexual Abuse: No Immunizations Up To Date Tetanus Booster (TDap): Unknown PED Vaccines UTD: No Date of Pneumonia Vaccine: May 22, 2016 Date of Influenza Vaccine: Nov 12, 2019 Seasonal Allergies Seasonal Allergies: No Past Medical History Surgeries: Yes Cardiac, Gallbladder, Orthopedic, Renal Respiratory: Yes (C-PAP MACHINE) Sleep Apnea, COPD Currently Using CPAP: Yes Currently Using BIPAP: No Cardiac: Yes High Cholesterol, Hypertension Neurological: No Reproductive Disorders: No Sexually Transmitted Disease: No HIV/AIDS: No Genitourinary: No Kidney Stones, Renal Failure Gastrointestinal: Yes (S/P EVELIO; FATTY LIVER ON CT. ) Colitis, Gastroesophageal Reflux, Gall Bladder Disease Musculoskeletal: Yes Arthritis, Chronic Back Pain Endocrine: Yes (MORBID OBESITY) Diabetes, Non-Insulin dep HEENT: Yes Cancer: No Psychosocial: Yes (BIPOLAR, POLYSUBSTANCE ABUSE) Anxiety, Bipolar, Depression Integumentary: No Blood Disorders: No Adverse Reaction/Blood Tranf: No Family Medical History Reviewed Nursing Family Hx Completed stroke DVT 19 MOTHER, , Onset:Unknown Diabetes mellitus 19 MOTHER, , Onset:Unknown G8 BROTHER, Onset:Unknown FH: gastric ulcer 19 FATHER, Onset:Unknown DVT/PE, Diabetes, GI Disease Physical Exam Vital Signs Vital Signs - First Documented 03/04/20 20:40 Temp 36.3 Pulse 107 Resp 20 B/P (MAP) 148/102 (117) Pulse Ox 98 Capillary Refill : Less Than 3 Seconds Height, Weight, BMI Height: 5'10.00" Weight: 330lbs. 3.0oz. 149.794904lb; 51.00 BMI Method:Stated General Appearance: No Apparent Distress, WD/WN, Obese HEENT: PERRL/EOMI, Pharynx Normal Neck: Non Tender, Supple Respiratory: No Respiratory Distress, Wheezing Cardiovascular: No Murmur, Tachycardia Gastrointestinal: Normal Bowel Sounds, Non Tender, Soft, Other (Morbidly obese) Back: Normal Inspection, No CVA Tenderness, No Vertebral Tenderness Extremity: Normal Range of Motion, Non Tender Neurologic/Psychiatric: Alert, Oriented x3 Skin: Normal Color, Warm/Dry Progress/Results/Core Measures Suspected Sepsis Recent Fever Within 48 Hours: No Infection Criteria Present: None New/Unexplained Altered Menta: No Sepsis Screen: No Definite Risk SIRS Temperature: Pulse: 107 Respiratory Rate: 20 Laboratory Tests 03/04/20 20:50: White Blood Count 7.9 Blood Pressure 148 /102 Mean: 117 Laboratory Tests 03/04/20 20:50: Creatinine 1.10, INR Comment 1.0, Platelet Count 184, Total Bilirubin 0.4 Results/Orders Lab Results Laboratory Tests Test 03/04/20 02:50 03/04/20 20:50 03/04/20 20:55 Range/Units D-Dimer 0.29 0.00-0.49 UG/ML White Blood Count 7.9 4.3-11.0 10^3/uL Red Blood Count 4.66 4.30-5.52 10^6/uL Hemoglobin 14.6 13.3-17.7 g/dL Hematocrit 43 40-54 % Mean Corpuscular Volume 93 80-99 fL Mean Corpuscular Hemoglobin 31 25-34 pg Mean Corpuscular Hemoglobin Concent 34 32-36 g/dL Red Cell Distribution Width 13.6 10.0-14.5 % Platelet Count 184 130-400 10^3/uL Mean Platelet Volume 10.7 9.0-12.2 fL Immature Granulocyte % (Auto) 2 % Neutrophils (%) (Auto) 57 42-75 % Lymphocytes (%) (Auto) 29 12-44 % Monocytes (%) (Auto) 8 0-12 % Eosinophils (%) (Auto) 3 0-10 % Basophils (%) (Auto) 1 0-10 % Neutrophils # (Auto) 4.6 1.8-7.8 10^3/uL Lymphocytes # (Auto) 2.3 1.0-4.0 10^3/uL Monocytes # (Auto) 0.6 0.0-1.0 10^3/uL Eosinophils # (Auto) 0.3 0.0-0.3 10^3/uL Basophils # (Auto) 0.1 0.0-0.1 10^3/uL Immature Granulocyte # (Auto) 0.1 0.0-0.1 10^3/uL Prothrombin Time 13.1 12.2-14.7 SEC INR Comment 1.0 0.8-1.4 Activated Partial Thromboplast Time 29 24-35 SEC Sodium Level 136 135-145 MMOL/L Potassium Level 3.5 L 3.6-5.0 MMOL/L Chloride Level 107 98-107 MMOL/L Carbon Dioxide Level 19 L 21-32 MMOL/L Anion Gap 10 5-14 MMOL/L Blood Urea Nitrogen 11 7-18 MG/DL Creatinine 1.10 0.60-1.30 MG/DL Estimat Glomerular Filtration Rate > 60 BUN/Creatinine Ratio 10 Glucose Level 153 H 70-105 MG/DL Calcium Level 9.3 8.5-10.1 MG/DL Corrected Calcium 9.2 8.5-10.1 MG/DL Magnesium Level 1.6 1.6-2.4 MG/DL Total Bilirubin 0.4 0.1-1.0 MG/DL Aspartate Amino Transf (AST/SGOT) 65 H 5-34 U/L Alanine Aminotransferase (ALT/SGPT) 75 H 0-55 U/L Alkaline Phosphatase 76 40-136 U/L Myoglobin 55.8 10.0-92.0 NG/ML Troponin I < 0.028 <0.028 NG/ML C-Reactive Protein High Sensitivity 0.42 0.00-0.50 MG/DL B-Type Natriuretic Peptide < 10.0 <100.0 PG/ML Total Protein 6.6 6.4-8.2 GM/DL Albumin 4.1 3.2-4.5 GM/DL Lipase 85 H 8-78 U/L Procalcitonin 0.15 H <0.10 NG/ML Coronavirus 2019 (MERCEDEZ) Negative Negative Micro Results Microbiology 03/04/20 Influenza Types A,B Antigen (ANNETTE) - Final, Complete My Orders Orders - STAN CARREON MD Influenza A And B Antigens (03/04/20 21:30) Fibrin Degradation Products (03/04/20 21:30) Covid 19 Inhouse Test (03/04/20 21:30) Albuterol Inhaler (Ventolin Hfa) (03/04/20 22:10) Ed Iv/Invasive Line Start (03/04/20 22:10) Ns Iv 500 Ml (Sodium Chloride 0.9%) (03/04/20 22:15) Ketorolac Injection (Toradol Injection) (03/04/20 22:21) Medications Given in ED Current Medications Medications Dose Ordered Sig/Saba Route Start Time Stop Time Status Last Admin Dose Admin Ketorolac Tromethamine 30 mg STK-MED ONCE .ROUTE 03/04/20 22:21 03/04/20 22:24 DC 03/04/20 22:25 30 MG Sodium Chloride 500 ml @ 0 mls/hr Q0M ONCE IV 03/04/20 22:15 03/04/20 22:16 DC 03/04/20 22:20 0 MLS/HR Vital Signs/I&O 03/04/20 20:40 Temp 36.3 Pulse 107 Resp 20 B/P (MAP) 148/102 (117) Pulse Ox 98 Capillary Refill : Less Than 3 Seconds Blood Pressure Mean: 117 Progress Note : Progress Note Seen and evaluated. IV, labs, Covid and influenza screening ordered. EKG ordered. Pain resolved currently. Monitor patient. He did have aspirin earlier with his normal daily dosing. Normal saline 500 mL bolus and albuterol MDI 4 puffs via spacer ordered. 2233: Saline started and albuterol given. Toradol 30 mg IV ordered and given. Monitor patient. 04/05/2005: Overall doing better. States he feels comfortable going home. Covid and influenza negative. No significant findings on labs. Discharged home with return precautions. Patient verbalized understanding of instructions and agreement with plan. ECG Initial ECG Impression Date: Mar 04, 2020 Initial ECG Impression Time: 20:58 Initial ECG Rate: 103 Initial ECG Rhythm: S.Tach Comment Sinus tachycardia with right ventricular hypertrophy and right axis deviation. This is change from 01/14/2019. No evidence of ST elevation OR. Interpreted by me. Diagnostic Imaging Diagonstic Imaging: Xray Plain Films/CT/US/NM/MRI: chest Comments [facility] [place], [place] NAME: DREW HILL MED REC#: [id number] PT STATUS: REG ER : 1970 PHYSICIAN: LOGAN SNELL APRN ADMIT DATE: 03/04/20/ER Signed Date of Exam:03/04/20 CHEST 1 VIEW, AP/PA ONLY CHEST 1 VIEW, AP/PA ONLY Indication: Chest pain. Comparison: 02/16/2020 Findings: No focal airspace disease in the visualized lungs. Please note that the posterior lower lobes are poorly evaluated by portable radiography. No pleural effusion or pneumothorax. Normal cardiomediastinal silhouette. Impression: 1. No acute cardiopulmonary process by portable radiography. Dictated by: Dictated on workstation # [id number] Dict: 03/04/202122 Trans: 03/04/202123 [facility] [phone] Interpreted by: CHRISTIAN BORREGO MD Electronically signed by: CHRISTIAN BORREGO MD 03/04/202123 Departure Impression Primary Impression: Right upper quadrant abdominal pain Additional Impression: Bronchitis Disposition: HOME, SELF-CARE Condition: Improved Departure-Patient Inst. Decision time for Depature: 23:07 Referrals: ÁNGEL CASPER MD (PCP/Family) Primary Care Physician Patient Instructions: Acute Bronchitis, Adult (DC), Abdominal Pain, Adult ED Add. Discharge Instructions: All discharge instructions reviewed with patient and/or family. Voiced understanding. Continue home medications as previously prescribed. Use inhaler 2 puffs every 4 hours as needed through the spacer. Follow-up with your doctor later this week for recheck as needed. Return for worse pain, fever, vomiting, weakness, breathing problems or other concerns as needed. You should eat a light diet for the next few days and then advance as tolerated. STAN CARREON MD Mar 04, 2020 22:09
[2020-03-04] MEDS ORDERED: RT-ALBUTEROL INHALER HFA (VENTOLIN HFA) 18 GM IH STA (22:10)
[2020-03-04] MEDS ORDERED: NS IV 500 ML 500 ML IV ONE (22:15)
[2020-03-04] MEDS ORDERED: KETOROLAC 30 MG/ML VIAL ONE (22:21)
[2020-03-04 23:11] VITALS: BP 119/60
== END 2020-03-04 23:14 | disposition home or self-care (01) ==
LOC: EDUNIT# 20:15 → ER 20:16
DX: R10.11 Right upper quadrant pain (principal); J40 Bronchitis, not specified as acute or chronic; J44.9 Chronic obstructive pulmonary disease, unspecified; E66.01 Morbid (severe) obesity due to excess calories; E78.00 Pure hypercholesterolemia, unspecified; I10 Essential (primary) hypertension; K21.9 Gastro-esophageal reflux disease without esophagitis; G89.29 Other chronic pain; M54.9 Dorsalgia, unspecified; F31.9 Bipolar disorder, unspecified; Z20.828 Contact with and (suspected) exposure to other viral communicable diseases; Z68.43 Body mass index [BMI] 50.0-59.9, adult; Z83.3 Family history of diabetes mellitus; Z87.891 Personal history of nicotine dependence; Z79.82 Long term (current) use of aspirin; Z79.891 Long term (current) use of opiate analgesic
CPT/HCPCS: 36415; 71045; 80053; 83690; 83735; 83874; 83880; 84145; 84484; 85025; 85379; 85610; 85730; 86141; 87635; 87804; 93005; 93041

== ENCOUNTER 2020-03-06 21:09 | Emergency (ER) | payer MEDICAID ==
[~2020-03-06] VITALS: Ht 182.8 cm; Wt 164.0 kg
[2020-03-06] MEDS ORDERED: ASPIRIN 81 MG CHEW (CHILDREN'S ASA) PO ONE (21:15)
--- NOTE | 2020-03-06 21:19 | ED Chest Pain ---
General Stated Complaint: CHEST PAIN Source: patient History of Present Illness Date Seen by Provider: Mar 06, 2020 Time Seen by Provider: 21:09 Initial Comments 49 yo Male presenting with right sided chest pain that is sharp in nature. he reports it is worse with deep breaths. He had some similar symptoms on March 04 when he was seen in [facility]. At that time he had negative work up and was treated for COPD. He has not been using his inhaler he was prescribed at [facility] and states he just uses the CPAP overnight. He has no nausea or vomiting. He denied doing anything when the pain started. 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 Allergies and Home Medications Allergies Coded Allergies: No Known Drug Allergies (Unverified , 12/21/17) Home Medications Acetaminophen 500 Mg Tablet, 1,000 MG PO Q4H PRN for PAIN-MILD (1-4), (Reported) Albuterol Sulfate 1 Puff Puff, 2 PUFF IH Q4H PRN for SHORTNESS OF BREATH, (Reported) 1 PUFF = 90 MCG Allopurinol 100 Mg Tablet, 100 MG PO DAILY, (Reported) Aripiprazole 30 Mg Tablet, 30 MG PO DAILY, (Reported) Aspirin 81 Mg Tablet.dr, 81 MG PO DAILY, (Reported) Atorvastatin Calcium 40 Mg Tablet, 40 MG PO HS, (Reported) Benzonatate 100 Mg Capsule, 100 MG PO TID PRN for COUGH Prescribed by: BLANK ELIZABETH on 01/15/19 1140 Bupropion HCl 100 Mg Tablet, 100 MG PO 1200, (Reported) Bupropion HCl 100 Mg Tablet.er, 200 MG PO DAILY, (Reported) Famotidine 20 Mg Tablet, 20 MG PO BID, (Reported) Famotidine 20 Mg Tablet, 20 MG PO BID Prescribed by: SALTY MENDEZ on 01/17/19 1538 Fenofibrate Nanocrystallized 145 Mg Tablet, 145 MG PO HS, (Reported) Gabapentin 300 Mg Capsule, 300 MG PO BID, (Reported) Hydrochlorothiazide 25 Mg Tablet, 25 MG PO DAILY, (Reported) Hydrocodone Bit/Acetaminophen 1 Each Tablet, 1 TAB PO Q6H PRN for PAIN-MODERATE (5-7), (Reported) Hyoscyamine Sulfate 0.125 Mg Tablet, 0.125 MG PO QID, (Reported) L. Acidophilus/Bulgaricus 1 Each Tab.chew, 1 TAB PO DAILY, (Reported) Loperamide HCl 2 Mg Capsule, 2 MG PO QID PRN for LOOSE STOOLS, (Reported) Mesalamine 1.2 Gm Tablet.dr, 4.8 GM PO DAILY, (Reported) TAKES 4 (1.2GM) TABLETS Metoprolol Tartrate 50 Mg Tablet, 25 MG PO BID, (Reported) TAKES 1/2 (50MG) TABLET Multivitamin 1 Each Tablet, 1 TAB PO DAILY, (Reported) Nifedipine 30 Mg Tablet.er, 30 MG PO DAILY, (Reported) Nitrofurantoin Macrocrystal 100 Mg Capsule, 100 MG PO BID Prescribed by: MAHSA BONILLA on 02/16/202136 [place]-3 Acid Ethyl Esters 1 Gm Capsule, 2 GM PO 1200,2100, (Reported) TAKES 2 (1GM) CAPSULES Ondansetron 4 Mg Tab.rapdis, 4 MG PO Q6H PRN for NAUSEA/VOMITING Prescribed by: SALTY MENDEZ on 01/17/19 1538 Potassium Chloride 20 Meq Tab.er.prt, 40 MEQ PO BID, (Reported) TAKES 2 (20MEQ) TABLETS Ropinirole HCl 5 Mg Tablet, 5 MG PO 0800,1200,2100, (Reported) Solifenacin Succinate 5 Mg Tablet, 5 MG PO DAILY, (Reported) Sucralfate 1 Gm Tablet, 1 GM PO BID WITH MEALS, (Reported) Topiramate 200 Mg Tablet, 200 MG PO BID, (Reported) Patient Home Medication List Home Medication List Reviewed: Yes Review of Systems Review of Systems Constitutional: No chills, No fever EENTM: No Symptoms Reported Respiratory: SOA With Exertion (chronic from COPD and not worse than usual) Cardiovascular: Chest Pain (sharp pleuritic chest pain on right side) Gastrointestinal: No Symptoms Reported Genitourinary: No Symptoms Reported Musculoskeletal: no symptoms reported Skin: no symptoms reported Psychiatric/Neurological: No Symptoms Reported Past Fprqexu-Iwzccb-Atjrak Hx Past Med/Social Hx: Reviewed Nursing Past Med/Soc Hx Patient Social History Alcohol Beverage of Choice: Beer Drug of Choice: marijuana Type Used: Cigarettes Former Smoker, Quit: Jun 04, 2017 2nd Hand Smoke Exposure: No Recent Foreign Travel: No Contact w/Someone Who Travel: No Recent Hopitalizations: No Immunizations Up To Date Tetanus Booster (TDap): Unknown PED Vaccines UTD: No Date of Pneumonia Vaccine: May 22, 2016 Date of Influenza Vaccine: Nov 12, 2019 Seasonal Allergies Seasonal Allergies: No Past Medical History Surgeries: Yes Cardiac, Gallbladder, Orthopedic, Renal Respiratory: Yes (C-PAP MACHINE) Sleep Apnea, COPD Currently Using CPAP: Yes Currently Using BIPAP: No Cardiac: Yes High Cholesterol, Hypertension Neurological: No Reproductive Disorders: No Sexually Transmitted Disease: No HIV/AIDS: No Genitourinary: No Kidney Stones, Renal Failure Gastrointestinal: Yes (S/P EVELIO; FATTY LIVER ON CT. ) Colitis, Gastroesophageal Reflux, Gall Bladder Disease Musculoskeletal: Yes Arthritis, Chronic Back Pain Endocrine: Yes (MORBID OBESITY) Diabetes, Non-Insulin dep HEENT: Yes Cancer: No Psychosocial: Yes (BIPOLAR, POLYSUBSTANCE ABUSE) Anxiety, Bipolar, Depression Integumentary: No Blood Disorders: No Adverse Reaction/Blood Tranf: No Family Medical History Completed stroke DVT 19 MOTHER, , Onset:Unknown Diabetes mellitus 19 MOTHER, , Onset:Unknown G8 BROTHER, Onset:Unknown FH: gastric ulcer 19 FATHER, Onset:Unknown DVT/PE, Diabetes, GI Disease Physical Exam Vital Signs Vital Signs - First Documented 03/06/20 21:12 Temp 36.6 Pulse 107 Resp 18 B/P (MAP) 153/94 (113) Pulse Ox 96 O2 Delivery Room Air Capillary Refill : Height, Weight, BMI Height: 5'10.00" Weight: 330lbs. 3.0oz. 149.218720fw; 51.00 BMI Method:Stated General Appearance: No Apparent Distress, Obese HEENT: Normal ENT Inspection, Pharynx Normal Neck: Normal Inspection, Non Tender, Supple Respiratory: Chest Non Tender, No Accessory Muscle Use, No Respiratory Distress, Decreased Breath Sounds Cardiovascular: Regular Rate, Rhythm, Normal Peripheral Pulses, Other (distant heart sounds due to body habitus) Gastrointestinal: Normal Bowel Sounds, Non Tender, Soft Extremity: Normal Capillary Refill, No Pedal Edema Neurologic/Psychiatric: Alert, Oriented x3 Skin: Normal Color, Warm/Dry Progress/Results/Core Measures Results/Orders Lab Results Laboratory Tests Test 03/06/20 21:27 Range/Units White Blood Count 8.4 4.3-11.0 10^3/uL Red Blood Count 4.62 4.35-5.85 10^6/uL Hemoglobin 14.6 13.3-17.7 G/DL Hematocrit 43 40-54 % Mean Corpuscular Volume 92 80-99 FL Mean Corpuscular Hemoglobin 32 25-34 PG Mean Corpuscular Hemoglobin Concent 34 32-36 G/DL Red Cell Distribution Width 13.9 10.0-14.5 % Platelet Count 198 130-400 10^3/uL Mean Platelet Volume 10.7 H 7.4-10.4 FL Immature Granulocyte % (Auto) 2 % Neutrophils (%) (Auto) 59 42-75 % Lymphocytes (%) (Auto) 29 12-44 % Monocytes (%) (Auto) 8 0-12 % Eosinophils (%) (Auto) 2 0-10 % Basophils (%) (Auto) 1 0-10 % Neutrophils # (Auto) 4.9 1.8-7.8 X 10^3 Lymphocytes # (Auto) 2.4 1.0-4.0 X 10^3 Monocytes # (Auto) 0.6 0.0-1.0 X 10^3 Eosinophils # (Auto) 0.2 0.0-0.3 10^3/uL Basophils # (Auto) 0.1 0.0-0.1 10^3/uL Immature Granulocyte # (Auto) 0.1 0.0-0.1 10^3/uL Prothrombin Time 12.4 12.2-14.7 SEC INR Comment 0.9 0.8-1.4 Activated Partial Thromboplast Time 27 24-35 SEC D-Dimer 0.31 0.00-0.49 UG/ML Sodium Level 138 135-145 MMOL/L Potassium Level 3.6 3.6-5.0 MMOL/L Chloride Level 106 98-107 MMOL/L Carbon Dioxide Level 21 21-32 MMOL/L Anion Gap 11 5-14 MMOL/L Blood Urea Nitrogen 10 7-18 MG/DL Creatinine 1.16 0.60-1.30 MG/DL Estimat Glomerular Filtration Rate > 60 BUN/Creatinine Ratio 9 Glucose Level 106 H 70-105 MG/DL Calcium Level 9.3 8.5-10.1 MG/DL Corrected Calcium 9.1 8.5-10.1 MG/DL Magnesium Level 1.8 1.6-2.4 MG/DL Total Bilirubin 0.3 0.1-1.0 MG/DL Aspartate Amino Transf (AST/SGOT) 76 H 5-34 U/L Alanine Aminotransferase (ALT/SGPT) 75 H 0-55 U/L Alkaline Phosphatase 76 40-136 U/L Troponin I < 0.30 <0.30 NG/ML Pro-B-Type Natriuretic Peptide 71.7 <75.0 PG/ML Total Protein 6.6 6.4-8.2 GM/DL Albumin 4.3 3.2-4.5 GM/DL Lipase 86 H 8-78 U/L My Orders Orders - HELENA SOTO MD Cbc With Automated Diff (03/06/20 21:15) Magnesium (03/06/20 21:15) Chest 1 View Ap/Pa Only (03/06/20 21:15) Ekg Tracing (03/06/20 21:15) Comprehensive Metabolic Panel (03/06/20 21:15) Protime With Inr (03/06/20 21:15) Partial Thromboplastin Time (03/06/20 21:15) Monitor-Rhythm Ecg Trace Only (03/06/20 21:15) Aspirin Chewable Tablet (Baby Aspirin Ch (03/06/20 21:15) Ed Iv/Invasive Line Start (03/06/20 21:15) Lipase (03/06/20 21:15) Troponin I Fs (03/06/20 21:15) Probnp Fs (03/06/20 21:15) Ketorolac Injection (Toradol Injection) (03/06/20 21:41) Methylprednisolone Sod Succ (Solu-Medrol (03/06/20 22:56) Us Venous Upper Ext Left (03/07/20 08:00) Fibrin Degradation Products (03/06/20 22:56) Medications Given in ED Current Medications Medications Dose Ordered Sig/Saba Route Start Time Stop Time Status Last Admin Dose Admin Aspirin 324 mg ONCE ONCE PO 03/06/20 21:15 03/06/20 21:16 DC 03/06/20 21:31 324 MG Vital Signs/I&O 03/06/20 03/06/20 21:12 21:27 Temp 36.6 Pulse 107 Resp 18 B/P (MAP) 153/94 (113) Pulse Ox 96 O2 Delivery Room Air Room Air Progress Progress Note #1: Progress Note obtain ECG with CXR and labs. Compare to testing from March 04. ECG does not show acute ST elevation. Try Toradol for pleuritic pain since it helped on Friday. Progress Note #2: Progress Note when reviewing negative results with the patient he reports the sharp pains in chest are gone but he has some shoulder pain still. He is worried that he has a blood clot from having an IV on FridayMar 04 and having the blood pressure cuff on the same arm above the IV site. He thinks that is what is causing his shoulder and arm to have pain and tingling. No acute change on his tests tonight from March 04. Will order an outpatient ultrasound of CHAYA and have him check with [facility] in am about getting the study done. Advised that his D dimer and labs do not indicate a blood clot but he is worried about one so could see about the outpt order. The symptoms seem to be more related to COPD and inflammation of lungs. A dose of solumedrol was ordered and he had inhaler from [facility] ED on Mar 04 so advised to use the inhaler. Initial ECG Impression Date: Mar 06, 2020 Initial ECG Impression Time: 21:17 Initial ECG Rate: 101 Initial ECG Rhythm: S.Tach Initial ECG Comparisson: Unchanged Comment sinus tachycardia with heart rate of 101 bpm. MI interval [address] elevation. QT interval 343 ms with a QTc interval 445 ms. This appears similar to prior tracing in the system. Diagnostic Imaging Diagonstic Imaging: Xray Plain Films/CT/US/NM/MRI: chest Comments On my review of his 1 view CXR it appears similar to imaging from March 04 with no definite infiltrate or effusion. Reviewed: Reviewed by Me Departure Impression Primary Impression: Pleuritic chest pain Additional Impressions: Right shoulder pain Qualified Codes: M25.511 - Pain in right shoulder COPD (chronic obstructive pulmonary disease) Qualified Codes: J44.9 - Chronic obstructive pulmonary disease, unspecified Disposition: HOME, SELF-CARE Condition: Improved Departure-Patient Inst. Decision time for Depature: 23:05 Referrals: ÁNGEL CASPER MD (PCP/Family) Primary Care Physician Patient Instructions: Chest Pain That Is Not Caused by the Heart (DC), Chronic Obstructive Pulmonary Disease (COPD) (DC), Pleuritic Chest Pain (DC), Shoulder Pain ED Add. Discharge Instructions: Use the inhaler you were given from [facility] department. Check with [facility] clinic Friday during the day about getting an ultrasound of your right arm for pain and tingling in your shoulder. If they do see a blood clot then Dr. Casper or the [facility] providers will notify you and treat you Call the [facility] clinic at 8 am to see about getting ultrasound of your right arm. HELENA SOTO MD Mar 06, 2020 21:19
[2020-03-06] MEDS ORDERED: KETOROLAC 30 MG/ML VIAL IVP STA (21:41)
[2020-03-06 21:48] LABS: HEMATOCRIT 43 % (40-54); HEMOGLOBIN 14.6 G/DL (13.3-17.7); MEAN CORPUSCULAR HEMOGLOBIN 32 PG (25-34); MEAN CORPUSCULAR VOLUME 92 FL (80-99); WHITE BLOOD COUNT 8.4 10^3/uL (4.3-11.0)
[2020-03-06 21:49] LABS: BASOPHILS # (AUTO) 0.1 10^3/uL (0.0-0.1); BASOPHILS % (AUTO) 1 % (0-10); EOSINOPHILS # (AUTO) 0.2 10^3/uL (0.0-0.3); EOSINOPHILS % (AUTO) 2 % (0-10); LYMPHOCYTES # (AUTO) 2.4 X 10^3 (1.0-4.0); LYMPHOCYTES % (AUTO) 29 % (12-44); MEAN CORPUSCULAR HGB CONC 34 G/DL (32-36); MEAN PLATELET VOLUME 10.7 FL (7.4-10.4); MONOCYTES # (AUTO) 0.6 X 10^3 (0.0-1.0); MONOCYTES % (AUTO) 8 % (0-12); NEUTROPHILS # (AUTO) 4.9 X 10^3 (1.8-7.8); NEUTROPHILS % (AUTO) 59 % (42-75); PLATELET COUNT 198 10^3/uL (130-400)
[2020-03-06 22:02] LABS: INR 0.9 (0.8-1.4); PROTHROMBIN TIME PATIENT 12.4 SEC (12.2-14.7)
[2020-03-06 22:15] LABS: BUN/CREATININE RATIO 9; CALCIUM 9.3 MG/DL (8.5-10.1); CARBON DIOXIDE 21 MMOL/L (21-32); CHLORIDE 106 MMOL/L (98-107); CREATININE SERUM 1.16 MG/DL (0.60-1.30); GFR ESTIMATED > 60; GLUCOSE 106 MG/DL (70-105); POTASSIUM 3.6 MMOL/L (3.6-5.0); SODIUM 138 MMOL/L (135-145)
[2020-03-06 22:16] LABS: ALANINE AMINOTRANSFERASE 75 U/L (0-55); ALBUMIN 4.3 GM/DL (3.2-4.5); ALKALINE PHOSPHATASE 76 U/L (40-136); BILIRUBIN,TOTAL 0.3 MG/DL (0.1-1.0); LIPASE 86 U/L (8-78); MAGNESIUM 1.8 MG/DL (1.6-2.4); TOTAL PROTEIN 6.6 GM/DL (6.4-8.2)
[2020-03-06] MEDS ORDERED: methylPREDNISolone 125 MG (Solu-MEDROL) VIAL IVP STA (22:56)
[2020-03-06 23:15] VITALS: BP 135/89
--- NOTE | 2020-03-07 06:36 | Diagnostic Imaging Report ---
INDICATION: Chest pain EXAMINATION: Single view chest 03/06/2020 COMPARISON: 03/04/2020 FINDINGS: Heart is prominent. Pulmonary vasculature is congested. Lungs clear other than focal atelectasis versus a prominent fat pad at the left lung base. A tiny effusion not excluded. IMPRESSION: 1. Pulmonary vascular congestion, early edema suspected. 2. Nonspecific findings at the left lung base as above. Dictated by: Dictated on workstation # [id number]
== END 2020-03-06 23:15 | disposition home or self-care (01) ==
LOC: EDUNIT# 21:09 → ER FS 21:10
DX: R07.81 Pleurodynia (principal); M25.511 Pain in right shoulder; J44.9 Chronic obstructive pulmonary disease, unspecified; I10 Essential (primary) hypertension; E78.00 Pure hypercholesterolemia, unspecified; K21.9 Gastro-esophageal reflux disease without esophagitis; F31.9 Bipolar disorder, unspecified; F41.9 Anxiety disorder, unspecified; E66.01 Morbid (severe) obesity due to excess calories; Z99.89 Dependence on other enabling machines and devices; Z87.891 Personal history of nicotine dependence; Z87.448 Personal history of other diseases of urinary system; Z87.442 Personal history of urinary calculi; Z79.82 Long term (current) use of aspirin
CPT/HCPCS: 36415; 71045; 80053; 83690; 83735; 83880; 84484; 85025; 85379; 85610; 85730; 93005; 93041

== ENCOUNTER → 2020-03-07 | Outpatient (CLI) | payer MEDICAID ==
--- NOTE | 2020-03-07 14:02 | Diagnostic Imaging Report ---
INDICATION: Right shoulder/arm pain and tingling. TECHNIQUE: The right arm venous Doppler study was performed in the routine fashion with color flow Doppler and waveform analysis. FINDINGS: The right internal jugular vein, right subclavian vein, and right axillary vein are patent and compressible. The right brachial, basilic, and cephalic veins are patent. The visualized portions of the radial and ulnar veins are patent. IMPRESSION: No evidence of deep vein thrombosis in the major veins of the right upper extremity. Dictated by: Dictated on workstation # [id number]
== END ==
LOC: RAD 12:10
PROVIDERS: ATTEND Family Medicine
DX: M25.511 Pain in right shoulder (principal)

== ENCOUNTER → 2020-04-11 | Outpatient (CLI) | payer MEDICAID ==
[~2020-04-11] VITALS: Ht 177 cm; Wt 164.0 kg
[~2020-04-11] MED LIST changes: +REGADENOSON 0.4 MG/5 ML SYR (LEXISCAN) IV ONE
[2020-04-11] MEDS: CATHETER FLUSH 10 ML SYR IV PRN ×2 (09:22→10:26)
[2020-04-11 10:05] VITALS: BP 145/84
--- NOTE | 2020-04-13 10:47 | STRESS TEST ---
DATE OF SERVICE: 04/11/2020 RESTING AND POST REGADENOSON TECHNETIUM-99M TETROFOSMIN SPECT CT IMAGING ORDERING PHYSICIAN: Dr. Simon. PRIMARY PHYSICIAN: Dr. Renae. CLINICAL DIAGNOSIS: Chest discomfort. Baseline images were carried out after injection of 10.17 mCi of technetium-99m Tetrofosmin. This was followed by 0.4 mg Regadenoson and 30.9 mCi of technetium-99m Tetrofosmin for stress imaging. The electrocardiogram showed sinus rhythm at baseline. There was incomplete right bundle branch block at baseline. The electrocardiogram did not change significantly with the Regadenoson infusion. The patient tolerated the procedure well. Review of images at rest and following stress indicates a localized basal inferior perfusion defect, relatively small to moderate, transient. Gated images show normal global left ventricular systolic function with a normal regional wall motion. Left ventricular ejection fraction is calculated to be 81%. Left ventricular end diastolic volume is 61 mL. TID is absent (1.07). CONCLUSIONS: 1. This study indicates a small to moderate amount of basal inferior ischemia. 2. Normal regional wall motion. 3. Normal to hyperdynamic left ventricular systolic function with a calculated ejection fraction of 81%. Job ID: [id number] DocumentID: [id number] Dictated Date: 04/13/2020 10:08:00 Machine Worker Date: 04/13/2020 10:46:45 Dictated By: VIDA SIMON MD, MA, FACP, FACC, MTDD
== END ==
LOC: CARD 08:56
PROVIDERS: ATTEND Internal Medicine Cardiovascular Disease
DX: I51.7 Cardiomegaly (principal)
CPT/HCPCS: 78452; 93017

== ENCOUNTER 2020-05-03 00:26 | Emergency (ER) | payer MEDICAID ==
[~2020-05-03 00:26] MED LIST changes: -CIPR500T4 PO; +CIPR500T5 PO; -OMEG-105 PO; +OMEG-218 PO; -REGADENOSON 0.4 MG/5 ML SYR (LEXISCAN) IV ONE
[2020-05-03] MEDS ORDERED: fentaNYL INJECTION 100 MCG/2 ML AMP IVP STA (00:36)
[2020-05-03] MEDS ORDERED: NS IV 500 ML 500 ML IV ONE (00:45)
--- NOTE | 2020-05-03 00:50 | ED Abdominal Pain ---
General Stated Complaint: ABD PAIN Source of Information: Patient, EMS Exam Limitations: No Limitations History of Present Illness Date Seen by Provider: May 03, 2020 Time Seen by Provider: 00:31 Initial Comments Here by EMS with report of left upper quadrant abdominal pain that started approximately 30 minutes prior to arrival. Patient has history of hernias including bilateral upper quadrants and hiatal. Also does have history of kidney stones. States pain woke him up and it was quite severe. States it was 8 out of 10 at its worst and 4 out of 10 currently. Denies nausea, vomiting or diarrhea. Denies upper respiratory symptoms or contact with COVID-19. Timing/Duration: 1/2 Hour Severity/Quality: Moderate Location: [facility] Radiation: No Radiation Activities at Onset: None Modifying Factors: Improves With Resting Associated Symptoms: No Back Pain, No Chest Pain, No Fever/Chills, No Nausea/Vomiting, No Weakness Allergies and Home Medications Allergies Coded Allergies: No Known Drug Allergies (Unverified , 12/21/17) Home Medications Acetaminophen 500 Mg Tablet, 1,000 MG PO Q4H PRN for PAIN-MILD (1-4), (Reported) Albuterol Sulfate 1 Puff Puff, 2 PUFF IH Q4H PRN for SHORTNESS OF BREATH, (Reported) 1 PUFF = 90 MCG Allopurinol 100 Mg Tablet, 100 MG PO DAILY, (Reported) Aripiprazole 30 Mg Tablet, 30 MG PO DAILY, (Reported) Aspirin 81 Mg Tablet.dr, 81 MG PO DAILY, (Reported) Atorvastatin Calcium 40 Mg Tablet, 40 MG PO HS, (Reported) Benzonatate 100 Mg Capsule, 100 MG PO TID PRN for COUGH Prescribed by: BLANK ELIZABETH on 01/15/19 1140 Bupropion HCl 100 Mg Tablet, 100 MG PO 1200, (Reported) Bupropion HCl 100 Mg Tablet.er, 200 MG PO DAILY, (Reported) Famotidine 20 Mg Tablet, 20 MG PO BID, (Reported) Famotidine 20 Mg Tablet, 20 MG PO BID Prescribed by: SALTY MENDEZ on 01/17/19 1538 Fenofibrate Nanocrystallized 145 Mg Tablet, 145 MG PO HS, (Reported) Gabapentin 300 Mg Capsule, 300 MG PO BID, (Reported) Hydrochlorothiazide 25 Mg Tablet, 25 MG PO DAILY, (Reported) Hydrocodone Bit/Acetaminophen 1 Each Tablet, 1 TAB PO Q6H PRN for PAIN-MODERATE (5-7), (Reported) Hyoscyamine Sulfate 0.125 Mg Tablet, 0.125 MG PO QID, (Reported) L. Acidophilus/Bulgaricus 1 Each Tab.chew, 1 TAB PO DAILY, (Reported) Loperamide HCl 2 Mg Capsule, 2 MG PO QID PRN for LOOSE STOOLS, (Reported) Mesalamine 1.2 Gm Tablet.dr, 4.8 GM PO DAILY, (Reported) TAKES 4 (1.2GM) TABLETS Metoprolol Tartrate 50 Mg Tablet, 25 MG PO BID, (Reported) TAKES 1/2 (50MG) TABLET Multivitamin 1 Each Tablet, 1 TAB PO DAILY, (Reported) Nifedipine 30 Mg Tablet.er, 30 MG PO DAILY, (Reported) Nitrofurantoin Macrocrystal 100 Mg Capsule, 100 MG PO BID Prescribed by: MAHSA BONILLA on 02/16/207 May-3 Acid Ethyl Esters 1 Gm Capsule, 2 GM PO 1200,2100, (Reported) TAKES 2 (1GM) CAPSULES Ondansetron 4 Mg Tab.rapdis, 4 MG PO Q6H PRN for NAUSEA/VOMITING Prescribed by: SALTY MENDEZ on 01/17/19 1538 Potassium Chloride 20 Meq Tab.er.prt, 40 MEQ PO BID, (Reported) TAKES 2 (20MEQ) TABLETS Ropinirole HCl 5 Mg Tablet, 5 MG PO 0800,1200,2100, (Reported) Solifenacin Succinate 5 Mg Tablet, 5 MG PO DAILY, (Reported) Sucralfate 1 Gm Tablet, 1 GM PO BID WITH MEALS, (Reported) Topiramate 200 Mg Tablet, 200 MG PO BID, (Reported) Patient Home Medication List Home Medication List Reviewed: Yes Review of Systems Review of Systems Constitutional: see HPI; No chills, No fever EENTM: No Symptoms Reported Respiratory: No Symptoms Reported Cardiovascular: Denies Chest Pain Gastrointestinal: Abdominal Pain; Denies Constipated Musculoskeletal: No back pain, No muscle pain Skin: no symptoms reported Psychiatric/Neurological: No Symptoms Reported All Other Systems Reviewed Negative Unless Noted: Yes Past Zzyjbvw-Fhpepc-Qxfczp Hx Past Med/Social Hx: Reviewed Nursing Past Med/Soc Hx Patient Social History Alcohol Use: Occasionally Uses Alcohol Beverage of Choice: Beer Drug of Choice: marijuana Smoking Status: Current Everyday Smoker Type Used: Cigarettes 2nd Hand Smoke Exposure: No Recent Hopitalizations: No Immunizations Up To Date Tetanus Booster (TDap): Unknown PED Vaccines UTD: No Date of Pneumonia Vaccine: May 22, 2016 Date of Influenza Vaccine: Nov 12, 2019 Seasonal Allergies Seasonal Allergies: No Past Medical History Surgeries: Yes Cardiac, Gallbladder, Orthopedic, Renal Respiratory: Yes (C-PAP MACHINE) Sleep Apnea, COPD Currently Using CPAP: Yes Currently Using BIPAP: No Cardiac: Yes High Cholesterol, Hypertension Neurological: No Reproductive Disorders: No Sexually Transmitted Disease: No HIV/AIDS: No Genitourinary: No Kidney Stones, Renal Failure Gastrointestinal: Yes (S/P EVELIO; FATTY LIVER ON CT. ) Colitis, Gastroesophageal Reflux, Gall Bladder Disease Musculoskeletal: Yes Arthritis, Chronic Back Pain Endocrine: Yes (MORBID OBESITY) Diabetes, Non-Insulin dep HEENT: Yes Cancer: No Psychosocial: Yes (BIPOLAR, POLYSUBSTANCE ABUSE) Anxiety, Bipolar, Depression Integumentary: No Blood Disorders: No Adverse Reaction/Blood Tranf: No Family Medical History Reviewed Nursing Family Hx Completed stroke DVT 19 MOTHER, , Onset:Unknown Diabetes mellitus 19 MOTHER, , Onset:Unknown G8 BROTHER, Onset:Unknown FH: gastric ulcer 19 FATHER, Onset:Unknown DVT/PE, Diabetes, GI Disease Physical Exam Vital Signs Vital Signs - First Documented 05/03/20 00:28 Temp 36.5 Pulse 92 Resp 20 B/P (MAP) 144/95 (111) O2 Delivery Room Air Capillary Refill : Height/Weight/BMI Height: 5'10.00" Weight: 330lbs. 3.0oz. [id number]; 52.34 BMI Method:Stated General Appearance: WD/WN, no apparent distress, obese (Morbid) HEENT: PERRL/EOMI, pharynx normal Neck: full range of motion, supple Respiratory: lungs clear, normal breath sounds Cardiovascular: regular rate, rhythm, no murmur Peripheral Pulses: 2+ Dorsalis Pedis (R), 2+ Left Dors-Pedis (L), 2+ Radial Pulses (R), 2+ Radial Pulses (L) Gastrointestinal: soft, tenderness (Left upper quadrant) Extremities: non-tender, normal inspection Back: normal inspection, no CVA tenderness, no vertebral tenderness Neurologic/Psychiatric: alert, oriented x 3 Skin: normal color, warm/dry Progress/Results/Core Measures Results/Orders Lab Results Laboratory Tests Test 05/03/20 00:45 05/03/20 01:05 Range/Units White Blood Count 8.9 4.3-11.0 10^3/uL Red Blood Count 4.66 4.30-5.52 10^6/uL Hemoglobin 14.6 13.3-17.7 g/dL Hematocrit 44 40-54 % Mean Corpuscular Volume 93 80-99 fL Mean Corpuscular Hemoglobin 31 25-34 pg Mean Corpuscular Hemoglobin Concent 34 32-36 g/dL Red Cell Distribution Width 13.0 10.0-14.5 % Platelet Count 200 130-400 10^3/uL Mean Platelet Volume 10.4 9.0-12.2 fL Immature Granulocyte % (Auto) 1 % Neutrophils (%) (Auto) 59 42-75 % Lymphocytes (%) (Auto) 27 12-44 % Monocytes (%) (Auto) 8 0-12 % Eosinophils (%) (Auto) 4 0-10 % Basophils (%) (Auto) 1 0-10 % Neutrophils # (Auto) 5.2 1.8-7.8 10^3/uL Lymphocytes # (Auto) 2.4 1.0-4.0 10^3/uL Monocytes # (Auto) 0.7 0.0-1.0 10^3/uL Eosinophils # (Auto) 0.4 H 0.0-0.3 10^3/uL Basophils # (Auto) 0.1 0.0-0.1 10^3/uL Immature Granulocyte # (Auto) 0.1 0.0-0.1 10^3/uL Sodium Level 138 135-145 MMOL/L Potassium Level 3.8 3.6-5.0 MMOL/L Chloride Level 108 H 98-107 MMOL/L Carbon Dioxide Level 19 L 21-32 MMOL/L Anion Gap 11 5-14 MMOL/L Blood Urea Nitrogen 15 7-18 MG/DL Creatinine 1.40 H 0.60-1.30 MG/DL Estimat Glomerular Filtration Rate 54 BUN/Creatinine Ratio 11 Glucose Level 89 70-105 MG/DL Calcium Level 8.8 8.5-10.1 MG/DL Corrected Calcium 8.6 8.5-10.1 MG/DL Magnesium Level 1.8 1.6-2.4 MG/DL Total Bilirubin 0.5 0.1-1.0 MG/DL Aspartate Amino Transf (AST/SGOT) 48 H 5-34 U/L Alanine Aminotransferase (ALT/SGPT) 61 H 0-55 U/L Alkaline Phosphatase 56 40-136 U/L C-Reactive Protein High Sensitivity 0.48 0.00-0.50 MG/DL Total Protein 6.8 6.4-8.2 GM/DL Albumin 4.2 3.2-4.5 GM/DL Lipase 58 8-78 U/L Urine Color YELLOW Urine Clarity CLEAR Urine pH 7.0 5-9 Urine Specific [place] 1.015 L 1.016-1.022 Urine Protein NEGATIVE NEGATIVE Urine Glucose (UA) NEGATIVE NEGATIVE Urine Ketones NEGATIVE NEGATIVE Urine Nitrite POSITIVE H NEGATIVE Urine Bilirubin NEGATIVE NEGATIVE Urine Urobilinogen 0.2 < = 1.0 MG/DL Urine Leukocyte Esterase TRACE H NEGATIVE Urine RBC (Auto) NEGATIVE NEGATIVE Urine RBC NONE /HPF Urine WBC 2-5 /HPF Urine Squamous Epithelial Cells 0-2 /HPF Urine Crystals NONE /LPF Urine Amorphous Sediment FEW TARYN URATES H /LPF Urine Bacteria NEGATIVE /HPF Urine Casts NONE /LPF Urine Mucus NEGATIVE /LPF Urine Culture Indicated NO My Orders Orders - STAN CARREON MD Fentanyl Injection (Sublimaze Injection (05/03/20 00:36) Cbc With Automated Diff (05/03/20 00:36) Comprehensive Metabolic Panel (05/03/20 00:36) Hs C Reactive Protein (05/03/20 00:36) Lipase (05/03/20 00:36) Ua Culture If Indicated (05/03/20 00:36) Ed Iv/Invasive Line Start (05/03/20 00:36) Ns Iv 500 Ml (Sodium Chloride 0.9%) (05/03/20 00:45) Magnesium (05/03/20 00:36) Urine Culture (05/03/20 01:31) Ct Abd/Pelvis Wo(Kidney Stone) (05/03/20 01:41) Nitrofurantoin Capsule,Macro (Macrobid C (05/03/20 03:30) Medications Given in ED Current Medications Medications Dose Ordered Sig/Saba Route Start Time Stop Time Status Last Admin Dose Admin Sodium Chloride 500 ml @ 0 mls/hr Q0M ONCE IV 05/03/20 00:45 05/03/20 00:46 DC 05/03/20 00:55 999 MLS/HR Vital Signs/I&O 05/03/20 00:28 Temp 36.5 Pulse 92 Resp 20 B/P (MAP) 144/95 (111) O2 Delivery Room Air Progress Progress Note : Progress Note Seen and evaluated. IV, labs, UA, normal saline 500 mL bolus and fentanyl 50 mcg IV ordered. Repeat fentanyl bolus ordered. CT abdomen pelvis kidney stone protocol ordered. 0320: CT complete. UA was nitrite positive so culture added. Previous history shows staph epidermidis which is sensitive to nitrofurantoin. This was ordered 100 mg capsule. We will do short course outpatient as he has some intermittent renal dysfunction but GFR is near 60 currently. Patient states pain is, gone but is back a little bit now. We will give 1 hydrocodone 7.5 now and he will continue with [id number] acetaminophen at home. Discharged home with return precautions. Patient verbalized understanding of instructions and agreement with plan Diagnostic Imaging Diagonstic Imaging: CT Plain Films/CT/US/NM/MRI: abdomen, pelvis Comments Bilateral nonobstructive nephrolithiasis noted with the largest stone burden identified inferiorly on the left measuring 12 mm. The stone burden appears to be similar to the previous examination. No hydronephrosis. No definite ureteral stones. No bladder calcifications. Evaluation of the bowel mucosa is limited without contrast however no focal asymmetry suggested were visible. No bowel obstruction. No free intraperitoneal fluid or pneumoperitoneum. A normal caliber appendix is noted posterior to the cecum in the right lower quadrant. Reviewed: Reviewed Night [facility] Study Departure Impression Primary Impression: Left upper quadrant abdominal pain Additional Impression: Urinary tract infection Qualified Codes: N30.00 - Acute cystitis without hematuria Disposition: HOME, SELF-CARE Condition: Stable Departure-Patient Inst. Decision time for Depature: 03:25 Referrals: ÁNGEL CASPER MD (PCP/Family) Primary Care Physician Patient Instructions: Severe Abdominal Pain, Adult (DC), Urinary Tract Infections in Adults Add. Discharge Instructions: Take medication as directed. You may take Tylenol/acetaminophen 1000 mg every 6-8 hours as needed for pain. Follow-up with your doctor in a few days for recheck. Drink plenty fluids. Return for worse pain, fever, vomiting, weakness, breathing problems or other concerns as needed. Scripts Nitrofurantoin Macrocrystal (Nitrofurantoin) 100 Mg Capsule 100 MG PO BID, #6 CAP 0 Refills Prov: STAN CARREON MD 05/03/20 STAN CARREON MD May 03, 2020 00:50
[2020-05-03 00:51] LABS: BASOPHILS # (AUTO) 0.1 10^3/uL (0.0-0.1); BASOPHILS % (AUTO) 1 % (0-10); EOSINOPHILS # (AUTO) 0.4 10^3/uL (0.0-0.3); EOSINOPHILS % (AUTO) 4 % (0-10); HEMATOCRIT 44 % (40-54); HEMOGLOBIN 14.6 g/dL (13.3-17.7); LYMPHOCYTES # (AUTO) 2.4 10^3/uL (1.0-4.0); LYMPHOCYTES % (AUTO) 27 % (12-44); MEAN CORPUSCULAR HEMOGLOBIN 31 pg (25-34); MEAN CORPUSCULAR HGB CONC 34 g/dL (32-36); MEAN CORPUSCULAR VOLUME 93 fL (80-99); MEAN PLATELET VOLUME 10.4 fL (9.0-12.2); MONOCYTES # (AUTO) 0.7 10^3/uL (0.0-1.0); MONOCYTES % (AUTO) 8 % (0-12); NEUTROPHILS # (AUTO) 5.2 10^3/uL (1.8-7.8); NEUTROPHILS % (AUTO) 59 % (42-75); PLATELET COUNT 200 10^3/uL (130-400); WHITE BLOOD COUNT 8.9 10^3/uL (4.3-11.0)
[2020-05-03 01:11] LABS: ALBUMIN 4.2 GM/DL (3.2-4.5); POTASSIUM 3.8 MMOL/L (3.6-5.0)
[2020-05-03 01:13] LABS: CALCIUM 8.8 MG/DL (8.5-10.1)
[2020-05-03 01:14] LABS: TOTAL PROTEIN 6.8 GM/DL (6.4-8.2)
[2020-05-03 01:15] LABS: BILIRUBIN,TOTAL 0.5 MG/DL (0.1-1.0)
[2020-05-03 01:17] LABS: CREATININE SERUM 1.4 MG/DL (0.60-1.30)
[2020-05-03 01:17] LABS: BILIRUBIN,URINE NEGATIVE (NEGATIVE); CLARITY,URINE CLEAR; COLOR,URINE YELLOW; GLUCOSE, URINE (UA) NEGATIVE (NEGATIVE); KETONES,URINE NEGATIVE (NEGATIVE); LEUKOCYTE ESTERASE ,URINE TRACE (NEGATIVE); NITRITE,URINE POSITIVE (NEGATIVE); PROTEIN,URINE NEGATIVE (NEGATIVE)
[2020-05-03 01:20] LABS: MAGNESIUM 1.8 MG/DL (1.6-2.4)
[2020-05-03 01:24] LABS: AMORPHOUS SEDIMENT,UR FEW AMOR URATES /LPF; BACTERIA,URINE NEGATIVE /HPF; SQUAMOUS EPITHELIAL CELL,UR 0-2 /HPF
[2020-05-03] MEDS ORDERED: HYDROcodone/APAP 7.5 MG/325 MG (LORTAB, LORCET PLUS) TABLET PO STA (03:19)
[2020-05-03] MEDS ORDERED: NITR100C PO (03:26)
[2020-05-03] MEDS ORDERED: NITROFURANTOIN 100 MG (MACROBID) CAPSULE PO ONE (03:30)
[2020-05-03 03:49] VITALS: BP 122/91
--- NOTE | 2020-05-03 06:58 | Diagnostic Imaging Report ---
CT ABD/PELVIS WO(KIDNEY STONE) TECHNIQUE: Unenhanced CT imaging of the abdomen and pelvis was performed. 2-D reformats are created and submitted for interpretation. Automatic exposure controls were utilized to optimize patient dose. INDICATION: Flank pain. COMPARISON: 02/16/2020 FINDINGS: Evaluation of the abdominal viscera is mildly limited without contrast. Lower chest: The lung bases are clear. No pericardial or pleural effusion. Peritoneum: No free intraperitoneal air or fluid. Liver and biliary system: Hepatomegaly as liver measures approximately 19 cm. In addition, there is hypoattenuation throughout the liver indicative of hepatic steatosis. Cholecystectomy. No pathologic biliary duct dilatation. Spleen and Pancreas: Spleen is enlarged measuring 14.5 cm, unchanged. Unenhanced pancreas is grossly normal. Adrenals: Normal. tract: Bilateral nonobstructing renal stones are present and range in size from 2-12 mm. No ureteral stones or obstructive uropathy. Urinary bladder is normally filled without wall thickening. Prostate is not enlarged. GI tract: Stomach is decompressed. No bowel obstruction. No pericolonic inflammatory changes. Normal appendix. Vasculature and Lymph nodes: Normal caliber aorta. No abdominal or pelvic lymphadenopathy. Musculoskeletal: No concerning osseous lesion. No change in lower lumbar facet osteoarthritis. IMPRESSION: 1. No acute obstructive or inflammatory process. 2. Bilateral nonobstructing renal stones are unchanged. 3. Findings are in agreement with the preliminary report. Dictated by: Dictated on workstation # [id number]
== END 2020-05-03 03:49 | disposition home or self-care (01) ==
LOC: EDUNIT# 00:26 → ER 00:29
DX: R10.12 Left upper quadrant pain (principal); N39.0 Urinary tract infection, site not specified; E66.01 Morbid (severe) obesity due to excess calories; F31.9 Bipolar disorder, unspecified; K21.9 Gastro-esophageal reflux disease without esophagitis; E78.00 Pure hypercholesterolemia, unspecified; I10 Essential (primary) hypertension; G89.29 Other chronic pain; M54.9 Dorsalgia, unspecified; J44.9 Chronic obstructive pulmonary disease, unspecified; F17.210 Nicotine dependence, cigarettes, uncomplicated; Z68.43 Body mass index [BMI] 50.0-59.9, adult; Z83.3 Family history of diabetes mellitus; Z79.82 Long term (current) use of aspirin; Z79.891 Long term (current) use of opiate analgesic
CPT/HCPCS: 36415; 74176; 80053; 81000; 83690; 83735; 85025; 86141; 87077; 87088

== ENCOUNTER 2020-05-09 11:00 | Day surgery (SDC) | payer MEDICAID ==
[2020-05-09] VITALS (11 sets, daily range): BP systolic 114–167; BP diastolic 69–107
[~2020-05-09] VITALS: Ht 177 cm; Wt 164.0 kg
[2020-05-09 09:38] LABS: HEMOGLOBIN 14.8 g/dL (13.3-17.7); MEAN PLATELET VOLUME 10.5 fL (9.0-12.2)
[2020-05-09 09:49] LABS: PROTHROMBIN TIME PATIENT 13.4 SEC (12.2-14.7)
[2020-05-09 09:56] LABS: ALBUMIN 4.2 GM/DL (3.2-4.5); BILIRUBIN,TOTAL 0.5 MG/DL (0.1-1.0); CALCIUM 9.2 MG/DL (8.5-10.1); CREATININE SERUM 1.33 MG/DL (0.60-1.30); POTASSIUM 3.9 MMOL/L (3.6-5.0); TOTAL PROTEIN 6.8 GM/DL (6.4-8.2)
[~2020-05-09 11:00] MED LIST changes: +ASPI-1238 PO; +DULO30CA49 PO; +DULO60CA59 PO; +GLIM2TAB4 PO; +HEParin (CATH LAB) 2,000 ML IV ONE; +LIDOCAINE 1% INJ 20 ML 20 ML VIAL ONE; +LISI10TA25 PO; +NF-SODBICA PO; +NFD60TCR PO; +NS IV 1000 ML 1,000 ML IV SCH; +NS IV 1000 ML 1,000 ML ONE; +OMEP40CA27 PO; +POTA20TA8 PO; +TEST200V21 IM
[2020-05-09] MEDS ORDERED: MIDAZOLAM 5 MG/5 ML (VERSED) VIAL ONE (11:06)
[2020-05-09] MEDS ORDERED: fentaNYL INJECTION 100 MCG/2 ML AMP ONE (11:06)
--- NOTE | 2020-05-09 12:04 | Cardiac Procedure Note-CS/ASA ---
Pre-Procedure Note Pre-Op Procedure Note H&P Reviewed The H&P was reviewed, patient examined and no changes noted. Date H&P Reviewed: May 09, 2020 Time H&P Reviewed: 11:40 Conscious Sedation Pre-Proced Time 11:40 ASA Score 3 For ASA 3 and 4: Consider anesthesia and medical clearance. Also, for patients with a history of failed moderate sedation consider anesthesia. Airway Lungs Heart ASA score ASA 1: a normal healthy patient ASA 2: a patient with a mild systemic disease (mid diabetes, controlled hypertension, obesity ASA 3: a patient with a severe systemic disease that limits activity (angina, COPD, prior Myocardial infarction) ASA 4: a patient with an incapacitating disease that is a constant threat to life (CHF, renal failure) ASA 5: a moribund patient not expected to survive 24 hrs. (ruptured aneurysm) ASA 6: a declared brain- patient whose organs are being harvested. For emergent operations, add the letter E after the classification Mallampati Classification Grade 3 Sedation Plan Analgesia, Amnesia, Plan communicated to team members, Discussed options with patient/fam, Discussed risks with patient/fam The patient is an appropriate candidate to undergo the planned procedure, sedation, and anesthesia. The patient immediately re-assessed prior to indication. VIDA ALMEIDA MD FACP FAC CCDS May 09, 2020 12:04
--- NOTE | 2020-05-09 12:09 | Discharge Inst-Cardiology ---
Discharge Inst-Cardiac Discharge Medications Continued Medications: Acetaminophen (Tylenol Extra Strength) 500 Mg Tablet 1000 MG PO Q4H PRN for PAIN-MILD (1-4), TAB Allopurinol (Allopurinol) 100 Mg Tablet 100 MG PO DAILY, TAB Aripiprazole (Aripiprazole) 30 Mg Tablet 30 MG PO DAILY, TAB Aspirin (Aspirin EC) 81 Mg Tablet.dr 81 MG PO DAILY, TAB Atorvastatin Calcium (Atorvastatin Calcium) 40 Mg Tablet 40 MG PO HS, TAB Duloxetine HCl (Duloxetine HCl) 30 Mg Capsule.dr 30 MG PO DAILY, CAP TAKES 30MG + 60MG TOGETHER TO EQUAL 90MG DAILY Duloxetine HCl (Duloxetine HCl) 60 Mg Capsule.dr 60 MG PO DAILY, CAP TAKES 30MG + 60MG TOGETHER TO EQUAL 90MG DAILY Famotidine (Famotidine) 20 Mg Tablet 20 MG PO DAILY, TAB Fenofibrate Nanocrystallized (Fenofibrate) 145 Mg Tablet 145 MG PO DAILY, TAB Gabapentin (Gabapentin) 600 Mg Tablet 600 MG PO TID, TAB Glimepiride (Glimepiride) 2 Mg Tablet 2 MG PO DAILY, TAB Lisinopril (Lisinopril) 10 Mg Tablet 10 MG PO DAILY, TAB Mesalamine (Mesalamine) 1.2 Gm Tablet.dr 4.8 GM PO DAILY, TAB TAKES 4 (1.2GM) TABLETS Metoprolol Tartrate (Metoprolol Tartrate) 25 Mg Tablet 25 MG PO BID, TAB Multivitamin (Multi-Vitamin Daily) 1 Each Tablet 1 TAB PO DAILY, TAB Nifedipine (Nifedipine ER) 60 Mg Tablet.er 60 MG PO DAILY, TAB [place]-3 Acid Ethyl Esters ([place]-3 Acid Ethyl Esters) 1 Gm Capsule 2 GM PO BID, CAP TAKES 2 (1GM) CAPSULES Omeprazole (Omeprazole) 40 Mg Capsule.dr 40 MG PO HS, CAP Potassium Chloride (Klor-Con M20) 20 Meq Tab.er.prt 40 MEQ PO BID, TAB TAKES 2 (20MEQ) TABS Ropinirole HCl (Ropinirole HCl) 5 Mg Tablet 5 MG PO TID, TAB Sodium Bicarbonate (Sodium Bicarbonate) 650 Mg Tablet 1300 MG PO BID, TAB TAKES 2 (650MG) TABS Solifenacin Succinate (Solifenacin Succinate) 5 Mg Tablet 5 MG PO DAILY, TAB Sucralfate (Sucralfate) 1 Gm Tablet 1 GM PO BID WITH MEALS, TAB Tamsulosin HCl (Flomax) 0.4 Mg Cap 0.4 MG PO HS, CAP Testosterone Cypionate (Testosterone Cypionate) 200 Mg/1 Ml Vial 1 ML IM EVERY 2 WEEKS, VIAL Topiramate (Topiramate) 200 Mg Tablet 200 MG PO BID, TAB VIDA ALMEIDA MD FACP FAC CCDS May 09, 2020 12:09
--- NOTE | 2020-05-09 12:09 | Discharge Inst-Post CATH ---
Discharge Inst-CATH/EP Post Cardiac Cath/EP D/C Inst Follow Up/Plan F/u with Dr Simon in 2 weeks ACTIVITY * Go Home directly and rest. * Limit activity of the leg (or wrist if it was used) for 7 days including aerobics, swimming, jogging, bicycling, etc. * Restrict stair-climbing for 7 days if possible, if not, climb up with your n on-cath leg, then bring together on the same step. * Avoid lifting, pushing, pulling or excessive movement of the affected ex tremity for 7 days. * Customary sexual activity may be resumed after 2 days-use caution not to use a position that strains or causes pain to the affected extremity. * No driving for 24 hours. * NO SMOKING. * Avoid straining for bowel movements for 7 days. * Gentle walking on level ground is allowed. * Returning to work will depend on the type of procedure and the results. Your doctor will discuss this with you. CALL YOUR DOCTOR FOR ANY OF THE FOLLOWING: *If bleeding from the puncture site occurs- Apply gentle pressure to site with clean cloth and call your doctor or EMS. * If a knot or lump forms under the skin, increases in size, or causes pain. * If bruising appears to be worsening or moving further down your leg instead of disappearing. * Temperature above 101 F. CARE OF YOUR GROIN INCISION; * Bruising or purple discoloration of the skin near the puncture site is common. * You may shower only, no bathtub bathing for 5 days. Be careful to avoid slipping as your leg may feel stiff. * If a closure device was used on your femoral artery, please see the attached guide regarding care of the device and your leg. * Leave dressing on FOR 24 hours. CARE OF YOUR WRIST INCISION; * Bruising or purple discoloration of the skin near the puncture site is common. * You may shower. * DO NOT submerge wrist. * Leave dressing on FOR 24 hours. VIDA SIMON MD FACP FAC CCDS May 09, 2020 12:09
[2020-05-09] MEDS ORDERED: PATIENT MAY USE OWN MEDS, ALL PO SCH (12:15)
[2020-05-09] MEDS ORDERED: NS IV 1000 ML 1,000 ML IV SCH (12:15)
--- NOTE | 2020-05-09 13:58 | CARDIAC CATHETERIZATION ---
DATE OF SERVICE: 05/09/2020 CARDIAC CATHETERIZATION REPORT INDICATION FOR PROCEDURE: The patient is a 49-year-old man with multiple coronary artery disease risk factors and symptoms suggestive of unstable angina. Cardiac catheterization was carried out today after having obtained an informed consent. DESCRIPTION OF PROCEDURE: He was brought to the cardiac catheterization laboratory in a fasting state. Right groin was prepared and draped in the usual sterile fashion. Lidocaine 1% was used for local anesthesia. A modified Seldinger technique was used to advance a 5-[place]e sheath in the right femoral artery, 5-[place]e JL4 catheter was used for left coronary angiography, 5-[place] JR4 catheter was used for right coronary angiography, and 5-[place] pigtail catheter was used for left heart catheterization. Left ventricular angiography was not performed. This was to conserve contrast, given the patient's chronic kidney disease. Approximately 20 mL of contrast was used for the study. HEMODYNAMICS: Left ventricular end-diastolic pressure following coronary angiography was 21 mmHg. There was no significant pressure gradient on pullback across the aortic valve. CORONARY ANGIOGRAPHY: Left main coronary artery, left anterior descending artery, left circumflex artery, and right coronary artery do not exhibit angiographically significant disease. Right coronary artery is dominant. CONCLUSIONS: 1. No angiographically significant coronary artery disease. 2. Elevated left ventricular end-diastolic pressure. DISCUSSION AND RECOMMENDATIONS: Based on results of the study, chest discomfort does not appear to be of coronary origin. Continuing risk factor modification is advised. Outpatient followup is advised. Job ID: [id number] DocumentID: [id number] Dictated Date: 05/09/2020 12:12:37 Improvement Director Date: 05/09/2020 13:58:03 Dictated By: VIDA ALMEIDA MD, MA, FACP, FACC,
== END 2020-05-09 15:38 | disposition home or self-care (01) ==
LOC: SDC 12:22 → CATH 15:38
PROVIDERS: ATTEND Internal Medicine Cardiovascular Disease
DX: R07.89 Other chest pain (principal); R94.39 Abnormal result of other cardiovascular function study
CPT/HCPCS: 36415; 80053; 80061; 85027; 85610; 85730; 87081; 93458

== ENCOUNTER 2020-05-20 01:13 | Emergency (ER) | payer MEDICAID ==
[~2020-05-20] VITALS: Ht 177 cm; Wt 158.0 kg
[~2020-05-20 01:13] MED LIST changes: -HEParin (CATH LAB) 2,000 ML IV ONE; -LIDOCAINE 1% INJ 20 ML 20 ML VIAL ONE; -NS IV 1000 ML 1,000 ML IV SCH; -NS IV 1000 ML 1,000 ML ONE
--- NOTE | 2020-05-20 01:45 | ED Abdominal Pain ---
General Chief Complaint: Abdominal/GI Problems Stated Complaint: ABD PAIN Nursing Triage Note: Patient presented to the Er tonight with complaints of right lower quadrant pain x 1 week that has not improved. Patient has a hx. abdominal hernias. Sepsis Screen: No Definite Risk Source of Information: Patient, EMS, Old Records Exam Limitations: No Limitations History of Present Illness Date Seen by Provider: May 20, 2020 Time Seen by Provider: 01:18 Initial Comments This 49-year-old gentleman presents to the emergency room via EMS with complai nts of intermittent right-sided abdominal pain over the past week. Pain was worse tonight. He describes it as a sharp burning sensation. He rates it as 4/10 at rest and 8/10 with palpation or movement. He denies any associated symptoms such as vomiting, hematochezia, urinary changes, changes in his chronic diarrhea, fever, etc. He reports his chronic diarrhea is from ulcerative colitis for which he is on maintenance medications. He also has history of abdominal hernias. Allergies and Home Medications Allergies Coded Allergies: No Known Drug Allergies (Unverified , 12/21/17) Home Medications Acetaminophen 500 Mg Tablet, 1,000 MG PO Q4H PRN for PAIN-MILD (1-4), (Reported) Allopurinol 100 Mg Tablet, 100 MG PO DAILY, (Reported) Aripiprazole 30 Mg Tablet, 30 MG PO DAILY, (Reported) Aspirin 81 Mg Tablet.dr, 81 MG PO DAILY, (Reported) Atorvastatin Calcium 40 Mg Tablet, 40 MG PO HS, (Reported) Cephalexin 500 Mg Tablet, 500 MG PO TID Prescribed by: RUDY MEREDITH on 05/20/20 0438 Duloxetine HCl 30 Mg Capsule.dr, 30 MG PO DAILY, (Reported) TAKES 30MG + 60MG TOGETHER TO EQUAL 90MG DAILY Duloxetine HCl 60 Mg Capsule.dr, 60 MG PO DAILY, (Reported) TAKES 30MG + 60MG TOGETHER TO EQUAL 90MG DAILY Famotidine 20 Mg Tablet, 20 MG PO DAILY, (Reported) Fenofibrate Nanocrystallized 145 Mg Tablet, 145 MG PO DAILY, (Reported) Gabapentin 600 Mg Tablet, 600 MG PO TID, (Reported) Glimepiride 2 Mg Tablet, 2 MG PO DAILY, (Reported) Lisinopril 10 Mg Tablet, 10 MG PO DAILY, (Reported) Mesalamine 1.2 Gm Tablet.dr, 4.8 GM PO DAILY, (Reported) TAKES 4 (1.2GM) TABLETS Metoprolol Tartrate 25 Mg Tablet, 25 MG PO BID, (Reported) Multivitamin 1 Each Tablet, 1 TAB PO DAILY, (Reported) Nifedipine 60 Mg Tablet.er, 60 MG PO DAILY, (Reported) [place]-3 Acid Ethyl Esters 1 Gm Capsule, 2 GM PO BID, (Reported) TAKES 2 (1GM) CAPSULES Omeprazole 40 Mg Capsule.dr, 40 MG PO HS, (Reported) Potassium Chloride 20 Meq Tab.er.prt, 40 MEQ PO BID, (Reported) TAKES 2 (20MEQ) TABS Ropinirole HCl 5 Mg Tablet, 5 MG PO TID, (Reported) Sodium Bicarbonate 650 Mg Tablet, 1,300 MG PO BID, (Reported) TAKES 2 (650MG) TABS Solifenacin Succinate 5 Mg Tablet, 5 MG PO DAILY, (Reported) Sucralfate 1 Gm Tablet, 1 GM PO BID WITH MEALS, (Reported) Tamsulosin HCl 0.4 Mg Cap, 0.4 MG PO HS, (Reported) Testosterone Cypionate 200 Mg/1 Ml Vial, 1 ML IM EVERY 2 WEEKS, (Reported) Topiramate 200 Mg Tablet, 200 MG PO BID, (Reported) Patient Home Medication List Home Medication List Reviewed: Yes Review of Systems Review of Systems Constitutional: no symptoms reported EENTM: No Symptoms Reported Respiratory: No Symptoms Reported Cardiovascular: No Symptoms Reported Gastrointestinal: See HPI Genitourinary: No Symptoms Reported Musculoskeletal: no symptoms reported Skin: no symptoms reported Psychiatric/Neurological: No Symptoms Reported Endocrine: No Symptoms Reported Past Esbluvz-Mcfkao-Vbtppl Hx Past Med/Social Hx: Reviewed Nursing Past Med/Soc Hx Patient Social History Alcohol Use: Denies Use Number of Drinks Today: AA Alcohol Beverage of Choice: Beer Drug of Choice: HX marijuana Smoking Status: Current Everyday Smoker Type Used: Cigarettes Former Smoker, Quit: Jun 04, 2017 2nd Hand Smoke Exposure: No Recent Infectious Disease Expo: No Recent Hopitalizations: No Immunizations Up To Date Tetanus Booster (TDap): Unknown PED Vaccines UTD: No Date of Pneumonia Vaccine: May 22, 2016 Date of Influenza Vaccine: Nov 12, 2019 Seasonal Allergies Seasonal Allergies: No Past Medical History Surgeries: Yes Cardiac, Gallbladder, Orthopedic, Renal Respiratory: Yes (C-PAP MACHINE) Sleep Apnea, COPD Currently Using CPAP: Yes Currently Using BIPAP: No Cardiac: Yes High Cholesterol, Hypertension Neurological: No Reproductive Disorders: No Sexually Transmitted Disease: No HIV/AIDS: No Genitourinary: Yes Kidney Stones, Renal Failure (Chronic kidney disease) Gastrointestinal: Yes (S/P EVELIO; FATTY LIVER ON CT. ) Colitis, Gastroesophageal Reflux, Gall Bladder Disease Musculoskeletal: Yes Arthritis, Chronic Back Pain Endocrine: Yes (MORBID OBESITY) Diabetes, Non-Insulin dep HEENT: Yes Cancer: No Psychosocial: Yes (BIPOLAR, POLYSUBSTANCE ABUSE) Anxiety, Bipolar, Depression Integumentary: No Blood Disorders: No Adverse Reaction/Blood Tranf: No Family Medical History Reviewed Nursing Family Hx Completed stroke DVT 19 MOTHER, , Onset:Unknown Diabetes mellitus 19 MOTHER, , Onset:Unknown G8 BROTHER, Onset:Unknown FH: gastric ulcer 19 FATHER, Onset:Unknown DVT/PE, Diabetes, GI Disease Physical Exam Vital Signs Vital Signs - First Documented 05/20/20 01:20 Temp 37.3 Pulse 89 Resp 14 B/P (MAP) 109/82 (91) Pulse Ox 97 O2 Delivery Room Air Capillary Refill : Less Than 3 Seconds Height/Weight/BMI Height: 5'10.00" Weight: 330lbs. 3.0oz. [id number]; 50.00 BMI Method:Stated General Appearance: WD/WN, no apparent distress, obese HEENT: PERRL/EOMI, normal ENT inspection Neck: normal inspection Respiratory: lungs clear, normal breath sounds, no respiratory distress Cardiovascular: regular rate, rhythm, no edema, no murmur Gastrointestinal: normal bowel sounds, soft, tenderness (Tender to deep palpation throughout the right abdomen), other (Obese abdomen, exam obscured by body habitus) Extremities: normal inspection, no pedal edema Neurologic/Psychiatric: studio grip II-XII nml as tested, no motor/sensory deficits, alert, normal mood/affect, oriented x 3 Skin: normal color, warm/dry Progress/Results/Core Measures Results/Orders Lab Results Laboratory Tests Test 05/20/20 01:27 05/20/20 01:47 Range/Units White Blood Count 9.2 4.3-11.0 10^3/uL Red Blood Count 4.45 4.30-5.52 10^6/uL Hemoglobin 14.1 13.3-17.7 g/dL Hematocrit 42 40-54 % Mean Corpuscular Volume 95 80-99 fL Mean Corpuscular Hemoglobin 32 25-34 pg Mean Corpuscular Hemoglobin Concent 33 32-36 g/dL Red Cell Distribution Width 13.4 10.0-14.5 % Platelet Count 200 130-400 10^3/uL Mean Platelet Volume 10.6 9.0-12.2 fL Immature Granulocyte % (Auto) 2 % Neutrophils (%) (Auto) 59 42-75 % Lymphocytes (%) (Auto) 27 12-44 % Monocytes (%) (Auto) 8 0-12 % Eosinophils (%) (Auto) 3 0-10 % Basophils (%) (Auto) 1 0-10 % Neutrophils # (Auto) 5.4 1.8-7.8 10^3/uL Lymphocytes # (Auto) 2.4 1.0-4.0 10^3/uL Monocytes # (Auto) 0.8 0.0-1.0 10^3/uL Eosinophils # (Auto) 0.3 0.0-0.3 10^3/uL Basophils # (Auto) 0.1 0.0-0.1 10^3/uL Immature Granulocyte # (Auto) 0.2 H 0.0-0.1 10^3/uL Erythrocyte Sedimentation Rate 8 0-30 MM/HR Sodium Level 135 135-145 MMOL/L Potassium Level 3.8 3.6-5.0 MMOL/L Chloride Level 107 98-107 MMOL/L Carbon Dioxide Level 18 L 21-32 MMOL/L Anion Gap 10 5-14 MMOL/L Blood Urea Nitrogen 13 7-18 MG/DL Creatinine 1.40 H 0.60-1.30 MG/DL Estimat Glomerular Filtration Rate 54 BUN/Creatinine Ratio 9 Glucose Level 119 H 70-105 MG/DL Calcium Level 9.2 8.5-10.1 MG/DL Corrected Calcium 9.3 8.5-10.1 MG/DL Total Bilirubin 0.4 0.1-1.0 MG/DL Aspartate Amino Transf (AST/SGOT) 30 5-34 U/L Alanine Aminotransferase (ALT/SGPT) 43 0-55 U/L Alkaline Phosphatase 59 40-136 U/L C-Reactive Protein High Sensitivity 0.44 0.00-0.50 MG/DL Total Protein 6.5 6.4-8.2 GM/DL Albumin 3.9 3.2-4.5 GM/DL Lipase 70 8-78 U/L Urine Color YELLOW Urine Clarity SL CLOUDY Urine pH 7.0 5-9 Urine Specific [place] 1.015 L 1.016-1.022 Urine Protein NEGATIVE NEGATIVE Urine Glucose (UA) NEGATIVE NEGATIVE Urine Ketones NEGATIVE NEGATIVE Urine Nitrite POSITIVE H NEGATIVE Urine Bilirubin NEGATIVE NEGATIVE Urine Urobilinogen 0.2 < = 1.0 MG/DL Urine Leukocyte Esterase NEGATIVE NEGATIVE Urine RBC (Auto) TRACE-I NEGATIVE Urine RBC 0-2 /HPF Urine WBC RARE /HPF Urine Squamous Epithelial Cells 0-2 /HPF Urine Crystals NONE /LPF Urine Bacteria TRACE /HPF Urine Casts NONE /LPF Urine Mucus SMALL H /LPF Urine Culture Indicated YES My Orders Orders - RUDY BARRETO MD Cbc With Automated Diff (05/20/20 01:27) Comprehensive Metabolic Panel (05/20/20 01:27) Hs C Reactive Protein (05/20/20 01:27) Erythrocyte Sedimentation Rate (05/20/20 01:27) Lipase (05/20/20 01:27) Ua Culture If Indicated (05/20/20 01:27) Ed Iv/Invasive Line Start (05/20/20 01:27) Urine Culture (05/20/20 01:47) Ct Abd/Pelvis Wo(Kidney Stone) (05/20/20 02:25) Ceftriaxone For Iv Use (Rocephin For I (05/20/20 04:30) Ketorolac Injection (Toradol Injection) (05/20/20 04:30) Medications Given in ED Current Medications Medications Dose Ordered Sig/Saba Route Start Time Stop Time Status Last Admin Dose Admin Ceftriaxone Sodium 1000 mg/ Sterile Water 10 ml @ 200 mls/hr ONCE ONCE IV 05/20/20 04:30 05/20/20 04:32 DC 05/20/20 04:29 200 MLS/HR Ketorolac Tromethamine 15 mg ONCE ONCE IVP 05/20/20 04:30 05/20/20 04:31 DC 05/20/20 04:29 15 MG Vital Signs/I&O 05/20/20 01:20 Temp 37.3 Pulse 89 Resp 14 B/P (MAP) 109/82 (91) Pulse Ox 97 O2 Delivery Room Air Blood Pressure Mean: 91 Progress Progress Note #1: Time: 01:44 Progress Note Patient was seen and evaluated upon arrival. Labs and urinalysis are pending. Remainder of the work-up will depend on these results. Progress Note #2: Progress Note Risks and benefits of CT were discussed with patient. He desired to proceed with CT scan to rule out ureteral stone. CT scan was relatively unremarkable in regard to explaining etiology of right-sided abdominal pain. There was questionable urinary tract infection which was treated with Rocephin. Pain was treated with Toradol. He was discharged home for outpatient follow-up. Diagnostic Imaging Diagonstic Imaging: CT Plain Films/CT/US/NM/MRI: abdomen, pelvis Comments CT abdomen and pelvis viewed by me and stat rad report reviewed. Bilateral nephrolithiasis was noted. There was mild left hydroureteronephrosis that could be from recently passed calculus or infection. Departure Impression Primary Impression: Right-sided abdominal pain of unknown cause Additional Impression: Urinary tract infection Qualified Codes: N39.0 - Urinary tract infection, site not specified Disposition: HOME, SELF-CARE Condition: Improved Departure-Patient Inst. Decision time for Depature: 04:20 Referrals: ÁNGEL CASPER MD (PCP/Family) Primary Care Physician Patient Instructions: Severe Abdominal Pain, Adult (DC) Add. Discharge Instructions: Drink plenty of clear liquids. You may take Tylenol (acetaminophen) up to 1000 mg every 6 hours as needed. Complete your antibiotic as prescribed. Return to the ER if you have worsening symptoms. Call with questions or concerns. All discharge instructions reviewed with patient and/or family. Voiced understanding. Scripts Cephalexin (Cephalexin) 500 Mg Tablet 500 MG PO TID, #20 TAB Prov: RUDY BARRETO MD 05/20/20 Copy Copies To 1: ÁNGEL CASPER MD, JOSHUA T MD May 20, 2020 01:45
[2020-05-20 01:53] LABS: BILIRUBIN,URINE NEGATIVE (NEGATIVE); CLARITY,URINE SL CLOUDY; COLOR,URINE YELLOW; GLUCOSE, URINE (UA) NEGATIVE (NEGATIVE); KETONES,URINE NEGATIVE (NEGATIVE); LEUKOCYTE ESTERASE ,URINE NEGATIVE (NEGATIVE); NITRITE,URINE POSITIVE (NEGATIVE); PROTEIN,URINE NEGATIVE (NEGATIVE)
[2020-05-20 01:55] LABS: BASOPHILS # (AUTO) 0.1 10^3/uL (0.0-0.1); BASOPHILS % (AUTO) 1 % (0-10); EOSINOPHILS # (AUTO) 0.3 10^3/uL (0.0-0.3); EOSINOPHILS % (AUTO) 3 % (0-10); HEMATOCRIT 42 % (40-54); HEMOGLOBIN 14.1 g/dL (13.3-17.7); LYMPHOCYTES # (AUTO) 2.4 10^3/uL (1.0-4.0); LYMPHOCYTES % (AUTO) 27 % (12-44); MEAN CORPUSCULAR HEMOGLOBIN 32 pg (25-34); MEAN CORPUSCULAR HGB CONC 33 g/dL (32-36); MEAN CORPUSCULAR VOLUME 95 fL (80-99); MEAN PLATELET VOLUME 10.6 fL (9.0-12.2); MONOCYTES # (AUTO) 0.8 10^3/uL (0.0-1.0); MONOCYTES % (AUTO) 8 % (0-12); NEUTROPHILS # (AUTO) 5.4 10^3/uL (1.8-7.8); NEUTROPHILS % (AUTO) 59 % (42-75); PLATELET COUNT 200 10^3/uL (130-400); WHITE BLOOD COUNT 9.2 10^3/uL (4.3-11.0)
[2020-05-20 02:00] LABS: BACTERIA,URINE TRACE /HPF; RBC,URINE 0-2 /HPF; WBC,URINE RARE /HPF
[2020-05-20 02:01] LABS: SQUAMOUS EPITHELIAL CELL,UR 0-2 /HPF
[2020-05-20 02:09] LABS: ALBUMIN 3.9 GM/DL (3.2-4.5); BILIRUBIN,TOTAL 0.4 MG/DL (0.1-1.0); CALCIUM 9.2 MG/DL (8.5-10.1); CREATININE SERUM 1.4 MG/DL (0.60-1.30); POTASSIUM 3.8 MMOL/L (3.6-5.0); TOTAL PROTEIN 6.5 GM/DL (6.4-8.2)
[2020-05-20 02:15] LABS: ERYTHROCYTE SEDIMENTATION RATE 8 MM/HR (0-30)
[2020-05-20] MEDS ORDERED: KETOROLAC 30 MG/ML VIAL IVP ONE (04:30)
[2020-05-20] MEDS ORDERED: cefTRIAXone FOR IV USE 1,000 MG in WATER (STERILE) FOR INJECTION 10 ML IV ONE (04:30)
[2020-05-20] MEDS ORDERED: CEPH500T PO (04:38)
[2020-05-20 04:39] VITALS: BP 112/74
--- NOTE | 2020-05-20 06:18 | Diagnostic Imaging Report ---
PROCEDURE: CT urinary tract, rule out kidney stone. TECHNIQUE: Multiple contiguous axial images were obtained through the abdomen and pelvis without the use of intravenous contrast. Auto Exposure Controls were utilized during the CT exam to meet ALARA standards for radiation dose reduction. INDICATION: Left flank pain. COMPARISON: 05/03/2020. FINDINGS: The heart is unremarkable. Small amount of atelectasis is seen in the lingula. Bilateral nonobstructing renal calculi are seen, unchanged compared to the prior exam. No obstructing calculi or hydronephrosis. No perinephric fat stranding is seen. The urinary bladder is nondistended. No bladder calculi are seen. The liver, spleen, pancreas, and adrenal glands have a normal noncontrast CT appearance. The gallbladder is surgically absent. There is no pathologically enlarged mesenteric or retroperitoneal adenopathy. The bowel loops are nondilated. The appendix is visualized in the right lower quadrant and has a normal appearance. There is no free fluid or free air. No acute osseous abnormalities. There is scattered calcified aortic and iliac atherosclerotic plaque without aneurysm. There is no free air, loculated collection, or adenopathy in the pelvis. IMPRESSION: 1. Stable appearance of bilateral nonobstructing renal calculi. No obstructing calculi or hydronephrosis. Agree with overnight report. Dictated by: Dictated on workstation # [id number]
== END 2020-05-20 04:47 | disposition home or self-care (01) ==
LOC: EDUNIT# 01:13 → ER 01:18
DX: N13.6 Pyonephrosis (principal); I12.9 Hypertensive chronic kidney disease with stage 1 through stage 4 chronic kidney disease, or unspecified chronic kidney disease; N18.9 Chronic kidney disease, unspecified; E11.22 Type 2 diabetes mellitus with diabetic chronic kidney disease; E78.00 Pure hypercholesterolemia, unspecified; F41.9 Anxiety disorder, unspecified; F31.9 Bipolar disorder, unspecified; G47.30 Sleep apnea, unspecified; K52.9 Noninfective gastroenteritis and colitis, unspecified; K21.9 Gastro-esophageal reflux disease without esophagitis; E66.01 Morbid (severe) obesity due to excess calories; F17.210 Nicotine dependence, cigarettes, uncomplicated; Z79.82 Long term (current) use of aspirin; Z79.84 Long term (current) use of oral hypoglycemic drugs; Z79.899 Other long term (current) drug therapy
CPT/HCPCS: 36415; 74176; 80053; 81000; 83690; 85025; 85652; 86141; 87088

== ENCOUNTER 2020-06-13 19:11 | Emergency (ER) | payer MEDICAID ==
[~2020-06-13] VITALS: Ht 177.8 cm; Wt 161.7 kg
[~2020-06-13 19:11] MED LIST changes: +CEPH500T PO
--- NOTE | 2020-06-13 19:55 | ED Headache ---
General Chief Complaint: Head/Cervical Problems Stated Complaint: CHEUNG,WEAKNESS,RIB PAIN Nursing Triage Note: PATIENT STATES THAT HE RECEIVED THE DINO AND DINO COVID VACCINE YESTERDAY AND NOW HAS A HEADACHE AND LEFT RIB PAIN. HE STATED THAT HE SAW ON THE NEWS THAT ADMINISTRATION OF THIS VACCINE HAS BEEN STOPPED AND HE WAS CONCERNED. Nursing Sepsis Screen: No Definite Risk Source: patient Exam Limitations: no limitations History of Present Illness Date Seen by Provider: Jun 13, 2020 Time Seen by Provider: 19:31 Initial Comments Here with report of mild headache. He had the Dino & Dino vaccine yesterday and now has a mild headache and some stomach upset feeling like burning. This is actually fairly common for the stomach problems with him is not overly concerned with that. He did take Tylenol about 20 minutes prior to coming here. He was watching the 6:00 news and heard the story about Dino & Dino causing blood clots in the brain and was concerned so he presented for evaluation. Denies vision or balance problems, fever, confusion, nausea or vomiting or other concerns. Timing/Duration: 1-3 hours Severity/Quality: mild Location: frontal Prior Headaches/Recent Trauma: occasional headaches Associated Symptoms: No confusion, No fever/chills, No nausea/vomiting, No nasal drainage, No sinus infection, No stiff neck, No vision changes, No weakness Allergies and Home Medications Allergies Coded Allergies: No Known Drug Allergies (Unverified , 12/21/17) Home Medications Acetaminophen 500 Mg Tablet, 1,000 MG PO Q4H PRN for PAIN-MILD (1-4), (Reported) Allopurinol 100 Mg Tablet, 100 MG PO DAILY, (Reported) Aripiprazole 30 Mg Tablet, 30 MG PO DAILY, (Reported) Aspirin 81 Mg Tablet.dr, 81 MG PO DAILY, (Reported) Atorvastatin Calcium 40 Mg Tablet, 40 MG PO HS, (Reported) Cephalexin 500 Mg Tablet, 500 MG PO TID Prescribed by: RUDY MEREDITH on 05/20/20 0438 Duloxetine HCl 30 Mg Capsule.dr, 30 MG PO DAILY, (Reported) TAKES 30MG + 60MG TOGETHER TO EQUAL 90MG DAILY Duloxetine HCl 60 Mg Capsule.dr, 60 MG PO DAILY, (Reported) TAKES 30MG + 60MG TOGETHER TO EQUAL 90MG DAILY Famotidine 20 Mg Tablet, 20 MG PO DAILY, (Reported) Fenofibrate Nanocrystallized 145 Mg Tablet, 145 MG PO DAILY, (Reported) Gabapentin 600 Mg Tablet, 600 MG PO TID, (Reported) Glimepiride 2 Mg Tablet, 2 MG PO DAILY, (Reported) Lisinopril 10 Mg Tablet, 10 MG PO DAILY, (Reported) Mesalamine 1.2 Gm Tablet.dr, 4.8 GM PO DAILY, (Reported) TAKES 4 (1.2GM) TABLETS Metoprolol Tartrate 25 Mg Tablet, 25 MG PO BID, (Reported) Multivitamin 1 Each Tablet, 1 TAB PO DAILY, (Reported) Nifedipine 60 Mg Tablet.er, 60 MG PO DAILY, (Reported) [place]-3 Acid Ethyl Esters 1 Gm Capsule, 2 GM PO BID, (Reported) TAKES 2 (1GM) CAPSULES Omeprazole 40 Mg Capsule.dr, 40 MG PO HS, (Reported) Potassium Chloride 20 Meq Tab.er.prt, 40 MEQ PO BID, (Reported) TAKES 2 (20MEQ) TABS Ropinirole HCl 5 Mg Tablet, 5 MG PO TID, (Reported) Sodium Bicarbonate 650 Mg Tablet, 1,300 MG PO BID, (Reported) TAKES 2 (650MG) TABS Solifenacin Succinate 5 Mg Tablet, 5 MG PO DAILY, (Reported) Sucralfate 1 Gm Tablet, 1 GM PO BID WITH MEALS, (Reported) Tamsulosin HCl 0.4 Mg Cap, 0.4 MG PO HS, (Reported) Testosterone Cypionate 200 Mg/1 Ml Vial, 1 ML IM EVERY 2 WEEKS, (Reported) Topiramate 200 Mg Tablet, 200 MG PO BID, (Reported) Patient Home Medication List Home Medication List Reviewed: Yes Review of Systems Review of Systems Constitutional: see HPI; No chills, No dizziness, No fever, No weakness Eyes: Denies Blurred Vision, Denies Decreased Acuity Ears, Nose, Mouth, Throat: no symptoms reported Respiratory: No cough, No short of breath Cardiovascular: No chest pain, No edema Gastrointestinal: abdominal pain (Epigastric burning); No diarrhea, No nausea, No vomiting Musculoskeletal: no symptoms reported Psychiatric/Neurological: Headache; Denies Weakness Past Gwslztv-Bbvsny-Drfeoj Hx Past Med/Social Hx: Reviewed Nursing Past Med/Soc Hx Patient Social History Alcohol Beverage of Choice: Beer Drug of Choice: HX marijuana Smoking Status: Former Smoker Type Used: Cigarettes Former Smoker, Quit: Jun 04, 2017 2nd Hand Smoke Exposure: No Recent Infectious Disease Expo: No Recent Hopitalizations: No Immunizations Up To Date Tetanus Booster (TDap): Unknown PED Vaccines UTD: No Date of Pneumonia Vaccine: May 22, 2016 Date of Influenza Vaccine: Nov 12, 2019 Seasonal Allergies Seasonal Allergies: No Past Medical History Surgeries: Yes Cardiac, Gallbladder, Orthopedic, Renal Respiratory: Yes (C-PAP MACHINE) Sleep Apnea, COPD Currently Using CPAP: Yes Currently Using BIPAP: No Cardiac: Yes High Cholesterol, Hypertension Neurological: No Reproductive Disorders: No Sexually Transmitted Disease: No HIV/AIDS: No Genitourinary: Yes Kidney Stones, Renal Failure Gastrointestinal: Yes (S/P EVELIO; FATTY LIVER ON CT. ) Colitis, Gastroesophageal Reflux, Gall Bladder Disease Musculoskeletal: Yes Arthritis, Chronic Back Pain Endocrine: Yes (MORBID OBESITY) Diabetes, Non-Insulin dep HEENT: Yes Cancer: No Psychosocial: Yes (BIPOLAR, POLYSUBSTANCE ABUSE) Anxiety, Bipolar, Depression Integumentary: No Blood Disorders: No Adverse Reaction/Blood Tranf: No Family Medical History Reviewed Nursing Family Hx Completed stroke DVT 19 MOTHER, , Onset:Unknown Diabetes mellitus 19 MOTHER, , Onset:Unknown G8 BROTHER, Onset:Unknown FH: gastric ulcer 19 FATHER, Onset:Unknown DVT/PE, Diabetes, GI Disease Physical Exam Vital Signs Vital Signs - First Documented 06/13/20 19:28 Temp 36.9 Pulse 111 Resp 22 B/P (MAP) 144/95 (111) Pulse Ox 95 O2 Delivery Room Air Capillary Refill : Less Than 3 Seconds Height, Weight, BMI Height: 5'10.00" Weight: 330lbs. 3.0oz. 149.139045jp; 51.00 BMI Method:Stated General Appearance: WD/WN, no apparent distress, obese HEENT: PERRL/EOMI, pharynx normal Neck: non-tender, full range of motion, supple, normal inspection Cardiovascular: no murmur, tachycardia Respiratory: lungs clear, normal breath sounds Gastrointestinal: non tender, soft Back: normal inspection, no CVA tenderness, no vertebral tenderness Extremities: normal range of motion, non-tender, normal inspection Psychiatric: alert, oriented x 3 Crainal Nerves: normal hearing, normal speech, PERRL Motor/Sensory: no motor deficit, no sensory deficit Skin: normal color, warm/dry Progress/Results/Core Measures Results/Orders Vital Signs/I&O 06/13/20 19:28 Temp 36.9 Pulse 111 Resp 22 B/P (MAP) 144/95 (111) Pulse Ox 95 O2 Delivery Room Air Blood Pressure Mean: 111 Progress Progress Note : Progress Note Seen and evaluated. 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 Also discussed typical reaction after Covid vaccine. Mild headache is not uncommon with that and he is not showing signs of altered mental status, vision problems, gaze palsies, pupil reaction differences or other findings concerning for cavernous sinus thrombosis. He did take Tylenol little earlier and is feeling a little better. He is mildly tachycardic but is typically looking at 5-year history. He would require CT contrast-enhanced and he is concerned about that due to kidney function. He actually would like to just go home and see if he gets better and certainly would return if there is any worsening. He lives with his daughter and would be able to get back and she can keep an eye on him as well. I did offer CT and further work-up and he has declined at this point. I think this is reasonable given the current evaluation. Discharged home with return precautions. Patient verbalized understanding of instructions and agreement with plan. Departure Impression Primary Impression: Headache Qualified Codes: R51.9 - Headache, unspecified Disposition: HOME, SELF-CARE Condition: Improved Departure-Patient Inst. Decision time for Depature: 19:56 Referrals: ÁNGEL CASPER MD (PCP/Family) Primary Care Physician Patient Instructions: COVID-19 Vaccine (Adenovirus Vector) Bgifty Fact Sheet, COVID-19 Vaccines, Headache, Adult (DC), Viral Meningitis, Adult (DC) Add. Discharge Instructions: All discharge instructions reviewed with patient and/or family. Voiced understanding. Continue Tylenol/acetaminophen 1000 mg every 6-8 hours as needed for pain. Drink plenty of fluids and get plenty rest. Continue your stomach medicines including the famotidine (Pepcid). You may take the famotidine twice daily if needed for stomach upset for the next day or 2 and then return to normal schedule. Follow-up with your doctor in a few days for recheck as needed. Return for worse pain, fever, vision or balance problems, vomiting, weakness, confusion or other concerns as needed. Continue your medications as previously directed. STAN CARREON MD Jun 13, 2020 19:55
[2020-06-13 20:13] VITALS: BP 126/78
== END 2020-06-13 20:13 | disposition home or self-care (01) ==
LOC: EDUNIT# 19:11 → ER 19:13
DX: R51.9 Headache, unspecified (principal); I10 Essential (primary) hypertension; E66.01 Morbid (severe) obesity due to excess calories; F31.9 Bipolar disorder, unspecified; K21.9 Gastro-esophageal reflux disease without esophagitis; E78.00 Pure hypercholesterolemia, unspecified; E11.9 Type 2 diabetes mellitus without complications; Z87.891 Personal history of nicotine dependence; Z68.43 Body mass index [BMI] 50.0-59.9, adult; Z79.82 Long term (current) use of aspirin
CPT/HCPCS: 99282

== ENCOUNTER 2020-06-26 19:50 | Emergency (ER) | payer MEDICAID ==
[~2020-06-26] VITALS: Ht 177.8 cm; Wt 158.8 kg
[~2020-06-26 19:50] MED LIST changes: -DICL100T83 PO; +NF-DICLOTA PO
[2020-06-26 20:00] VITALS: BP 122/88
--- NOTE | 2020-06-26 20:06 | ED Upper Extremity ---
General Chief Complaint: Upper Extremity Stated Complaint: R WRIST INJ Nursing Triage Note: PT AMBULATE TO TRIAGE WITH C/O RIGHT WRIST PAIN. 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 Nursing Sepsis Screen: No Definite Risk Source: patient Exam Limitations: no limitations History of Present Illness Date Seen by Provider: Jun 26, 2020 Time Seen by Provider: 20:05 Initial Comments To ER with volar right wrist pain after lifting a bag of feed Onset: just prior to arrival Severity: moderate Pain/Injury Location: right wrist Method of Injury: twisted (Lifting) Modifying Factors: Improves With Movement Allergies and Home Medications Allergies Coded Allergies: No Known Drug Allergies (Unverified , 12/21/17) Home Medications Acetaminophen 500 Mg Tablet, 1,000 MG PO Q4H PRN for PAIN-MILD (1-4), (Reported) Allopurinol 100 Mg Tablet, 100 MG PO DAILY, (Reported) Aripiprazole 30 Mg Tablet, 30 MG PO DAILY, (Reported) Aspirin 81 Mg Tablet.dr, 81 MG PO DAILY, (Reported) Atorvastatin Calcium 40 Mg Tablet, 40 MG PO HS, (Reported) Cephalexin 500 Mg Tablet, 500 MG PO TID Prescribed by: RUDY MEREDITH on 05/20/20 0438 Duloxetine HCl 30 Mg Capsule.dr, 30 MG PO DAILY, (Reported) TAKES 30MG + 60MG TOGETHER TO EQUAL 90MG DAILY Duloxetine HCl 60 Mg Capsule.dr, 60 MG PO DAILY, (Reported) TAKES 30MG + 60MG TOGETHER TO EQUAL 90MG DAILY Famotidine 20 Mg Tablet, 20 MG PO DAILY, (Reported) Fenofibrate Nanocrystallized 145 Mg Tablet, 145 MG PO DAILY, (Reported) Gabapentin 600 Mg Tablet, 600 MG PO TID, (Reported) Glimepiride 2 Mg Tablet, 2 MG PO DAILY, (Reported) Lisinopril 10 Mg Tablet, 10 MG PO DAILY, (Reported) Mesalamine 1.2 Gm Tablet.dr, 4.8 GM PO DAILY, (Reported) TAKES 4 (1.2GM) TABLETS Metoprolol Tartrate 25 Mg Tablet, 25 MG PO BID, (Reported) Multivitamin 1 Each Tablet, 1 TAB PO DAILY, (Reported) Nifedipine 60 Mg Tablet.er, 60 MG PO DAILY, (Reported) [place]-3 Acid Ethyl Esters 1 Gm Capsule, 2 GM PO BID, (Reported) TAKES 2 (1GM) CAPSULES Omeprazole 40 Mg Capsule.dr, 40 MG PO HS, (Reported) Potassium Chloride 20 Meq Tab.er.prt, 40 MEQ PO BID, (Reported) TAKES 2 (20MEQ) TABS Ropinirole HCl 5 Mg Tablet, 5 MG PO TID, (Reported) Sodium Bicarbonate 650 Mg Tablet, 1,300 MG PO BID, (Reported) TAKES 2 (650MG) TABS Solifenacin Succinate 5 Mg Tablet, 5 MG PO DAILY, (Reported) Sucralfate 1 Gm Tablet, 1 GM PO BID WITH MEALS, (Reported) Tamsulosin HCl 0.4 Mg Cap, 0.4 MG PO HS, (Reported) Testosterone Cypionate 200 Mg/1 Ml Vial, 1 ML IM EVERY 2 WEEKS, (Reported) Topiramate 200 Mg Tablet, 200 MG PO BID, (Reported) Patient Home Medication List Home Medication List Reviewed: Yes Review of Systems Constitutional: see HPI EENTM: see HPI Respiratory: no symptoms reported Cardiovascular: no symptoms reported Genitourinary: no symptoms reported Musculoskeletal: see HPI Skin: no symptoms reported Psychiatric/Neurological: No Symptoms Reported Past Pxsskan-Tqmssm-Wnpnqd Hx Patient Social History Alcohol Beverage of Choice: Beer Drug of Choice: marijuana Type Used: Cigarettes Former Smoker, Quit: Jun 04, 2017 2nd Hand Smoke Exposure: No Recent Infectious Disease Expo: No Recent Hopitalizations: No Immunizations Up To Date Tetanus Booster (TDap): Unknown PED Vaccines UTD: No Date of Pneumonia Vaccine: May 22, 2016 Date of Influenza Vaccine: Nov 12, 2019 Seasonal Allergies Seasonal Allergies: No Past Medical History Surgeries: Yes (LAP EVELIO, BACK SURGERY, FINGER) Cardiac, Gallbladder, Orthopedic, Renal Respiratory: Yes (C-PAP MACHINE) Sleep Apnea, COPD Currently Using CPAP: Yes Currently Using BIPAP: No Cardiac: Yes High Cholesterol, Hypertension Neurological: No Reproductive Disorders: No Sexually Transmitted Disease: No HIV/AIDS: No Genitourinary: Yes Kidney Stones, Renal Failure Gastrointestinal: Yes (S/P EVELIO; FATTY LIVER ON CT. ) Colitis, Gastroesophageal Reflux, Gall Bladder Disease Musculoskeletal: Yes Arthritis, Chronic Back Pain Endocrine: Yes (MORBID OBESITY) Diabetes, Non-Insulin dep HEENT: Yes Cancer: No Psychosocial: Yes (BIPOLAR, POLYSUBSTANCE ABUSE) Anxiety, Bipolar, Depression Integumentary: No Blood Disorders: No Adverse Reaction/Blood Tranf: No Family Medical History Completed stroke DVT 19 MOTHER, , Onset:Unknown Diabetes mellitus 19 MOTHER, , Onset:Unknown G8 BROTHER, Onset:Unknown FH: gastric ulcer 19 FATHER, Onset:Unknown DVT/PE, Diabetes, GI Disease Physical Exam Vital Signs Vital Signs - First Documented 06/26/20 20:00 Temp 37.0 Pulse 107 Resp 20 B/P (MAP) 122/88 (99) O2 Delivery Room Air Capillary Refill : Less Than 3 Seconds Height, Weight, BMI Height: 5'10.00" Weight: 330lbs. 3.0oz. 149.052223jy; 50.00 BMI Method:Stated General Appearance: WD/WN, no apparent distress HEENT: PERRL/EOMI, normal ENT inspection Respiratory: no respiratory distress, no accessory muscle use Shoulder: normal inspection, non-tender Elbow/Forearm: normal inspection, non-tender Wrist: Yes normal inspection, Yes soft tissue tenderness Hand: normal inspection, non-tender Neurologic/Psychiatric: alert, normal mood/affect, oriented x 3 Skin: normal color, warm/dry Progress/Results/Core Measures Results/Orders Vital Signs/I&O 06/26/20 20:00 Temp 37.0 Pulse 107 Resp 20 B/P (MAP) 122/88 (99) O2 Delivery Room Air Blood Pressure Mean: 99 Departure Impression Primary Impression: Wrist strain Disposition: 01 HOME, SELF-CARE Condition: Stable Departure-Patient Inst. Decision time for Depature: 20:06 Referrals: ÁNGEL CASPER MD (PCP/Family) Primary Care Physician Patient Instructions: Muscle Strain ED Add. Discharge Instructions: 1. Return to ER for any concerns. Cold pack to the area. All discharge instructions reviewed with patient and/or family. Voiced understanding. LOGAN SNELL COUNTER HELP Jun 26, 2020 20:06
--- NOTE | 2020-06-26 20:43 | Diagnostic Imaging Report ---
INDICATION: Pain following lifting injury FINDINGS: Three view right wrist showed no fracture or dislocation. IMPRESSION: No acute bony abnormality. Dictated by: Dictated on workstation # [id number]
== END 2020-06-26 20:47 | disposition home or self-care (01) ==
LOC: EDUNIT# 19:50 → ER 19:51
DX: S66.911A Strain of unspecified muscle, fascia and tendon at wrist and hand level, right hand, initial encounter (principal); J44.9 Chronic obstructive pulmonary disease, unspecified; I10 Essential (primary) hypertension; E78.00 Pure hypercholesterolemia, unspecified; K21.9 Gastro-esophageal reflux disease without esophagitis; F41.9 Anxiety disorder, unspecified; F31.9 Bipolar disorder, unspecified; E66.01 Morbid (severe) obesity due to excess calories; E11.9 Type 2 diabetes mellitus without complications; Z68.43 Body mass index [BMI] 50.0-59.9, adult; Z87.891 Personal history of nicotine dependence; Z79.82 Long term (current) use of aspirin; X50.1XXA Overexertion from prolonged static or awkward postures, initial encounter
CPT/HCPCS: 73110

== ENCOUNTER 2020-07-20 20:32 | Emergency (ER) | payer MEDICAID ==
[~2020-07-20] VITALS: Ht 177 cm; Wt 161.0 kg
--- NOTE | 2020-07-20 20:54 | ED Abdominal Pain ---
General Chief Complaint: Abdominal/GI Problems Stated Complaint: STOMACH PAIN/BACK PAIN Source of Information: Patient Exam Limitations: No Limitations History of Present Illness Date Seen by Provider: July 20, 2020 Time Seen by Provider: 20:51 Initial Comments To ER with reports of left lower quadrant and left flank pain that began this morning. He was then seen at [facility]. He states that he was told he had blood in his urine and urinary tract infection. He believes they were going to call him in a prescription for Cipro but that has yet to be done. He denies fevers or chills. Comes in this evening with worsening pain left lower quadrant. Rates pain at 12 on a scale of 0-10. Timing/Duration: 1-2 Days Severity/Quality: Moderate Location: LLQ, Flank Radiation: No Radiation Activities at Onset: None Associated Symptoms: Denies Symptoms Allergies and Home Medications Allergies Coded Allergies: No Known Drug Allergies (Unverified , 12/21/17) Home Medications Acetaminophen 500 Mg Tablet, 1,000 MG PO Q4H PRN for PAIN-MILD (1-4), (Reported) Allopurinol 100 Mg Tablet, 100 MG PO DAILY, (Reported) Aripiprazole 30 Mg Tablet, 30 MG PO DAILY, (Reported) Aspirin 81 Mg Tablet.dr, 81 MG PO DAILY, (Reported) Atorvastatin Calcium 40 Mg Tablet, 40 MG PO HS, (Reported) Cefuroxime Axetil 500 Mg Tablet, 500 MG PO BID Prescribed by: LOGAN SNELL on 07/20/202143 Cephalexin 500 Mg Tablet, 500 MG PO TID Prescribed by: RUDY MEREDITH on 05/20/20 0438 Duloxetine HCl 30 Mg Capsule.dr, 30 MG PO DAILY, (Reported) TAKES 30MG + 60MG TOGETHER TO EQUAL 90MG DAILY Duloxetine HCl 60 Mg Capsule.dr, 60 MG PO DAILY, (Reported) TAKES 30MG + 60MG TOGETHER TO EQUAL 90MG DAILY Famotidine 20 Mg Tablet, 20 MG PO DAILY, (Reported) Fenofibrate Nanocrystallized 145 Mg Tablet, 145 MG PO DAILY, (Reported) Gabapentin 600 Mg Tablet, 600 MG PO TID, (Reported) Glimepiride 2 Mg Tablet, 2 MG PO DAILY, (Reported) Hydrocodone/Acetaminophen 1 Each Tablet, 1 TAB PO Q4H PRN for PAIN-MODERATE (5-7 ) Prescribed by: LOGAN SNELL on 07/20/205 Lisinopril 10 Mg Tablet, 10 MG PO DAILY, (Reported) Mesalamine 1.2 Gm Tablet.dr, 4.8 GM PO DAILY, (Reported) TAKES 4 (1.2GM) TABLETS Metoprolol Tartrate 25 Mg Tablet, 25 MG PO BID, (Reported) Multivitamin 1 Each Tablet, 1 TAB PO DAILY, (Reported) Nifedipine 60 Mg Tablet.er, 60 MG PO DAILY, (Reported) [place]-3 Acid Ethyl Esters 1 Gm Capsule, 2 GM PO BID, (Reported) TAKES 2 (1GM) CAPSULES Omeprazole 40 Mg Capsule.dr, 40 MG PO HS, (Reported) Potassium Chloride 20 Meq Tab.er.prt, 40 MEQ PO BID, (Reported) TAKES 2 (20MEQ) TABS Ropinirole HCl 5 Mg Tablet, 5 MG PO TID, (Reported) Sodium Bicarbonate 650 Mg Tablet, 1,300 MG PO BID, (Reported) TAKES 2 (650MG) TABS Solifenacin Succinate 5 Mg Tablet, 5 MG PO DAILY, (Reported) Sucralfate 1 Gm Tablet, 1 GM PO BID WITH MEALS, (Reported) Tamsulosin HCl 0.4 Mg Cap, 0.4 MG PO HS, (Reported) Testosterone Cypionate 200 Mg/1 Ml Vial, 1 ML IM EVERY 2 WEEKS, (Reported) Topiramate 200 Mg Tablet, 200 MG PO BID, (Reported) Patient Home Medication List Home Medication List Reviewed: Yes Review of Systems Review of Systems Constitutional: see HPI; No chills, No fever EENTM: No Symptoms Reported Respiratory: No Symptoms Reported Cardiovascular: No Symptoms Reported Gastrointestinal: No Symptoms Reported Genitourinary: See HPI, Flank Pain Musculoskeletal: no symptoms reported Skin: no symptoms reported Psychiatric/Neurological: No Symptoms Reported Endocrine: No Symptoms Reported Hematologic/Lymphatic: No Symptoms Reported Past Mwjcewq-Lqszew-Uvcbml Hx Patient Social History Alcohol Beverage of Choice: Beer Drug of Choice: marijuana Type Used: Cigarettes Former Smoker, Quit: Jun 04, 2017 2nd Hand Smoke Exposure: No Recent Hopitalizations: No Immunizations Up To Date Tetanus Booster (TDap): Unknown PED Vaccines UTD: No Date of Pneumonia Vaccine: May 22, 2016 Date of Influenza Vaccine: Nov 12, 2019 Seasonal Allergies Seasonal Allergies: No Past Medical History Surgeries: Yes (LAP EVELIO, BACK SURGERY, FINGER) Cardiac, Gallbladder, Orthopedic, Renal Respiratory: Yes (C-PAP MACHINE) Sleep Apnea, COPD Currently Using CPAP: Yes Currently Using BIPAP: No Cardiac: Yes High Cholesterol, Hypertension Neurological: No Reproductive Disorders: No Sexually Transmitted Disease: No HIV/AIDS: No Genitourinary: Yes Kidney Stones, Renal Failure Gastrointestinal: Yes (S/P EVELIO; FATTY LIVER ON CT. ) Colitis, Gastroesophageal Reflux, Gall Bladder Disease Musculoskeletal: Yes Arthritis, Chronic Back Pain Endocrine: Yes (MORBID OBESITY) Diabetes, Non-Insulin dep HEENT: Yes Cancer: No Psychosocial: Yes (BIPOLAR, POLYSUBSTANCE ABUSE) Anxiety, Bipolar, Depression Integumentary: No Blood Disorders: No Adverse Reaction/Blood Tranf: No Family Medical History Completed stroke DVT 19 MOTHER, , Onset:Unknown Diabetes mellitus 19 MOTHER, , Onset:Unknown G8 BROTHER, Onset:Unknown FH: gastric ulcer 19 FATHER, Onset:Unknown DVT/PE, Diabetes, GI Disease Physical Exam Vital Signs Vital Signs - First Documented 07/20/20 20:46 Temp 36.6 Pulse 114 Resp 22 B/P (MAP) 181/118 (139) Pulse Ox 95 O2 Delivery Room Air Capillary Refill : Height/Weight/BMI Height: 5'10.00" Weight: 330lbs. 3.0oz. 149.713480mp; 50.00 BMI Method:Stated General Appearance: WD/WN, no apparent distress HEENT: PERRL/EOMI, normal ENT inspection Respiratory: no respiratory distress, no accessory muscle use Cardiovascular: regular rate, rhythm, no murmur Gastrointestinal: normal bowel sounds, non tender, soft Extremities: normal range of motion, non-tender Neurologic/Psychiatric: alert, normal mood/affect, oriented x 3 Skin: normal color, warm/dry Progress/Results/Core Measures Results/Orders Lab Results Laboratory Tests Test 07/20/20 20:49 07/20/20 21:36 Range/Units White Blood Count 12.8 H 4.3-11.0 10^3/uL Red Blood Count 5.36 4.30-5.52 10^6/uL Hemoglobin 16.9 13.3-17.7 g/dL Hematocrit 49 40-54 % Mean Corpuscular Volume 92 80-99 fL Mean Corpuscular Hemoglobin 32 25-34 pg Mean Corpuscular Hemoglobin Concent 34 32-36 g/dL Red Cell Distribution Width 13.2 10.0-14.5 % Platelet Count 220 130-400 10^3/uL Mean Platelet Volume 10.1 9.0-12.2 fL Immature Granulocyte % (Auto) 2 % Neutrophils (%) (Auto) 63 42-75 % Lymphocytes (%) (Auto) 22 12-44 % Monocytes (%) (Auto) 8 0-12 % Eosinophils (%) (Auto) 3 0-10 % Basophils (%) (Auto) 1 0-10 % Neutrophils # (Auto) 8.1 H 1.8-7.8 10^3/uL Lymphocytes # (Auto) 2.8 1.0-4.0 10^3/uL Monocytes # (Auto) 1.1 H 0.0-1.0 10^3/uL Eosinophils # (Auto) 0.4 H 0.0-0.3 10^3/uL Basophils # (Auto) 0.1 0.0-0.1 10^3/uL Immature Granulocyte # (Auto) 0.3 H 0.0-0.1 10^3/uL Sodium Level 135 135-145 MMOL/L Potassium Level 4.3 3.6-5.0 MMOL/L Chloride Level 100 98-107 MMOL/L Carbon Dioxide Level 25 21-32 MMOL/L Anion Gap 10 5-14 MMOL/L Blood Urea Nitrogen 13 7-18 MG/DL Creatinine 1.47 H 0.60-1.30 MG/DL Estimat Glomerular Filtration Rate 51 BUN/Creatinine Ratio 9 Glucose Level 176 H 70-105 MG/DL Calcium Level 10.1 8.5-10.1 MG/DL My Orders Orders - LOGAN SNELL APRN Cbc With Automated Diff (07/20/20 20:49) Basic Metabolic Panel (07/20/20 20:49) Ua Culture If Indicated (07/20/20 20:49) Abdomen/Kub 1view (07/20/20 20:49) Ct Abd/Pelvis Wo(Kidney Stone) (07/20/20 20:49) Ed Iv/Invasive Line Start (07/20/20 20:49) Ns Iv 1000 Ml (Sodium Chloride 0.9%) (07/20/20 21:00) Ondansetron Injection (Zofran Injectio (07/20/20 21:00) Ketorolac Injection (Toradol Injection) (07/20/20 21:00) Ceftriaxone For Iv Use (Rocephin For I (07/20/20 21:30) Rx-Hydrocodone/Apap 5-325 Mg (Rx-Vicodin (07/20/20 21:45) Medications Given in ED Current Medications Medications Dose Ordered Sig/Saba Route Start Time Stop Time Status Last Admin Dose Admin Ceftriaxone Sodium 1000 mg/ Sterile Water 10 ml @ 200 mls/hr ONCE ONCE IV 07/20/20 21:30 07/20/20 21:32 DC 07/20/20 21:41 200 MLS/HR Ketorolac Tromethamine 15 mg ONCE ONCE IVP 07/20/20 21:00 07/20/20 21:01 DC 07/20/20 20:55 15 MG Ondansetron HCl 4 mg ONCE ONCE IVP 07/20/20 21:00 07/20/20 21:01 DC 07/20/20 20:55 4 MG Vital Signs/I&O 07/20/20 20:46 Temp 36.6 Pulse 114 Resp 22 B/P (MAP) 181/118 (139) Pulse Ox 95 O2 Delivery Room Air Departure Communication (Admissions) 1634-the patient is already established with Dr. Best cain. I spoke with him, he like the patient to call his office tomorrow to set up an appointment. He like to use Rocephin IV in the meantime, Rx for oral antibiotics and pain control. After 1 dose of Toradol the patient's pain is well controlled. Impression Primary Impression: Left ureteral stone Disposition: HOME, SELF-CARE Condition: Stable Departure-Patient Inst. Decision time for Depature: 21:42 Referrals: ÁNGEL CASPER MD (PCP/Family) Primary Care Physician LINO GONZALES MD Patient Instructions: Kidney Stones (DC) Add. Discharge Instructions: 1. Take the antibiotics as directed. Take the pain medication as directed. Call Dr. Gonzales tomorrow morning to make an appointment to be seen All discharge instructions reviewed with patient and/or family. Voiced understanding. Scripts Hydrocodone/Acetaminophen (Hydrocodone-Acetamin 5-325 mg) 1 Each Tablet 1 TAB PO Q4H PRN for PAIN-MODERATE (5-7), #14 TAB Prov: LOGAN SNELL WORK ORDER DETAILER 5/20/21 Cefuroxime Axetil (Cefuroxime) 500 Mg Tablet 500 MG PO BID, #10 TAB Prov: LOGAN SNELL APRN 07/20/20 Copy Copies To 1: LINO GONZALES MD, PETER J APRN July 20, 2020 20:53
[2020-07-20 20:55] LABS: BASOPHILS # (AUTO) 0.1 10^3/uL (0.0-0.1); BASOPHILS % (AUTO) 1 % (0-10); EOSINOPHILS # (AUTO) 0.4 10^3/uL (0.0-0.3); EOSINOPHILS % (AUTO) 3 % (0-10); HEMATOCRIT 49 % (40-54); HEMOGLOBIN 16.9 g/dL (13.3-17.7); LYMPHOCYTES # (AUTO) 2.8 10^3/uL (1.0-4.0); LYMPHOCYTES % (AUTO) 22 % (12-44); MEAN CORPUSCULAR HEMOGLOBIN 32 pg (25-34); MEAN CORPUSCULAR HGB CONC 34 g/dL (32-36); MEAN CORPUSCULAR VOLUME 92 fL (80-99); MEAN PLATELET VOLUME 10.1 fL (9.0-12.2); MONOCYTES # (AUTO) 1.1 10^3/uL (0.0-1.0); MONOCYTES % (AUTO) 8 % (0-12); NEUTROPHILS # (AUTO) 8.1 10^3/uL (1.8-7.8); NEUTROPHILS % (AUTO) 63 % (42-75); PLATELET COUNT 220 10^3/uL (130-400); WHITE BLOOD COUNT 12.8 10^3/uL (4.3-11.0)
[2020-07-20] MEDS: KETOROLAC 30 MG/ML VIAL IVP ONE (20:55)
[2020-07-20] MEDS: ONDANSETRON 4 MG/2 ML (SDV) Z0FRAN IVP ONE (20:55)
[2020-07-20] MEDS: NS IV 1000 ML 1,000 ML IV SCH (20:55)
[2020-07-20 21:13] LABS: POTASSIUM 4.3 MMOL/L (3.6-5.0)
[2020-07-20 21:14] LABS: CALCIUM 10.1 MG/DL (8.5-10.1)
[2020-07-20 21:18] LABS: CREATININE SERUM 1.47 MG/DL (0.60-1.30)
--- NOTE | 2020-07-20 21:37 | Diagnostic Imaging Report ---
EXAMINATION: CT abdomen and pelvis without contrast. TECHNIQUE: Multiple contiguous axial images were obtained through the abdomen and pelvis without the use of intravenous contrast. All CT scans use one or more of the following dose optimizing techniques: automated exposure control, MA and/or KvP adjustment based on patient size and exam type or iterative reconstruction. HISTORY: Left lower quadrant pain. COMPARISON: 05/20/2020. FINDINGS: Limited views of the lower thorax are unremarkable. The liver is normal without focal lesion. There is no biliary ductal dilation. Gallbladder is surgically absent. Pancreas is normal. Spleen is normal. Adrenal glands are normal. There are multiple bilateral renal stones with left-sided 12 mm stone at the left ureteropelvic junction resulting in mild to moderate left-sided hydronephrosis. There are numerous additional bilateral nonobstructing stones. Urinary bladder is normal. Visualized bowel is normal in caliber without obstruction or inflammation. No free fluid or air. No abdominal or pelvic lymphadenopathy. Aorta is normal in caliber without aneurysm. There is no suspicious osseus lesion. IMPRESSION: Obstructing 12 mm stone at the left ureteropelvic junction resulting in mild to moderate left-sided hydronephrosis. Dictated by: Dictated on workstation # [id number]
--- NOTE | 2020-07-20 21:40 | Diagnostic Imaging Report ---
EXAMINATION: Abdomen 1 view. HISTORY: Left flank pain. COMPARISON: None available. FINDINGS: Calcifications project over the left abdomen likely representing stones. Surgical clips are seen in the right upper quadrant. No dilated bowel. IMPRESSION: Multiple stones projecting over the left kidney likely representing stones. Dictated by: Dictated on workstation # [id number]
[2020-07-20] MEDS: cefTRIAXone FOR IV USE 1,000 MG in WATER (STERILE) FOR INJECTION 10 ML IV ONE (21:41)
[2020-07-20 21:42] LABS: BILIRUBIN,URINE NEGATIVE (NEGATIVE); CLARITY,URINE SL CLOUDY; COLOR,URINE YELLOW; GLUCOSE, URINE (UA) NEGATIVE (NEGATIVE); KETONES,URINE NEGATIVE (NEGATIVE); LEUKOCYTE ESTERASE ,URINE 1+ (NEGATIVE); NITRITE,URINE POSITIVE (NEGATIVE); PROTEIN,URINE 1+ (NEGATIVE)
[2020-07-20] MEDS ORDERED: ACHD5005 PO (21:44)
[2020-07-20] MEDS ORDERED: CEFU500T63 PO (21:44)
[2020-07-20 21:53] LABS: BACTERIA,URINE LARGE /HPF; RBC,URINE TNTC /HPF; WBC,URINE 25-50 /HPF
[2020-07-20] MEDS: fentaNYL INJ 100 MCG/2 ML AMP IVP ONE (21:59)
[2020-07-20 22:08] VITALS: BP 157/91
== END 2020-07-20 22:08 | disposition home or self-care (01) ==
LOC: EDUNIT# 20:32 → ER 20:34
DX: N13.2 Hydronephrosis with renal and ureteral calculous obstruction (principal); I10 Essential (primary) hypertension; E11.9 Type 2 diabetes mellitus without complications; J44.9 Chronic obstructive pulmonary disease, unspecified; E78.00 Pure hypercholesterolemia, unspecified; K21.9 Gastro-esophageal reflux disease without esophagitis; G47.30 Sleep apnea, unspecified; G89.29 Other chronic pain; M54.9 Dorsalgia, unspecified; F41.9 Anxiety disorder, unspecified; F31.9 Bipolar disorder, unspecified; E66.01 Morbid (severe) obesity due to excess calories; Z99.89 Dependence on other enabling machines and devices; Z68.43 Body mass index [BMI] 50.0-59.9, adult; Z87.891 Personal history of nicotine dependence; Z79.82 Long term (current) use of aspirin; Z79.84 Long term (current) use of oral hypoglycemic drugs; Z79.899 Other long term (current) drug therapy
CPT/HCPCS: 36415; 74018; 74176; 80048; 81000; 85025; 87077; 87088; 87186

== ENCOUNTER 2020-07-26 21:04 | Emergency (ER) | payer MEDICAID ==
[~2020-07-26] VITALS: Ht 177.8 cm; Wt 162.0 kg
--- NOTE | 2020-07-26 21:26 | ED General ---
General Chief Complaint: Glucose Problems Stated Complaint: HIGH BLOOD SUGAR - 497 Source of Information: Patient Exam Limitations: No Limitations History of Present Illness Date Seen by Provider: July 26, 2020 Time Seen by Provider: 21:14 Initial Comments Patient presents ER by private conveyance from home with chief complaint of the last 2 days he has had elevated blood sugars above 300 and then tonight they were about 400. He does have diabetes and takes pills only for it. He is known to Dr. Casper. He says his last A1c was 5.7. He received [address] injections [address] Shane in [place] for his knees and 2 days ago and since then his sugars have been wildly elevated. He does not take insulin routinely. He has been urinating frequently but is not having headache fever chills nausea vomiting or diarrhea. He is also being treated for a kidney stone and on antibiotics for his urine presently. Allergies and Home Medications Allergies Coded Allergies: No Known Drug Allergies (Unverified , 12/21/17) Home Medications Acetaminophen 500 Mg Tablet, 1,000 MG PO Q4H PRN for PAIN-MILD (1-4), (Reported) Allopurinol 100 Mg Tablet, 100 MG PO DAILY, (Reported) Aripiprazole 30 Mg Tablet, 30 MG PO DAILY, (Reported) Aspirin 81 Mg Tablet.dr, 81 MG PO DAILY, (Reported) Atorvastatin Calcium 40 Mg Tablet, 40 MG PO HS, (Reported) Cefuroxime Axetil 500 Mg Tablet, 500 MG PO BID Prescribed by: LOGAN SNELL on 07/20/202143 Cephalexin 500 Mg Tablet, 500 MG PO TID Prescribed by: RUDY MEREDITH on 05/20/20 0438 Duloxetine HCl 30 Mg Capsule.dr, 30 MG PO DAILY, (Reported) TAKES 30MG + 60MG TOGETHER TO EQUAL 90MG DAILY Duloxetine HCl 60 Mg Capsule.dr, 60 MG PO DAILY, (Reported) TAKES 30MG + 60MG TOGETHER TO EQUAL 90MG DAILY Famotidine 20 Mg Tablet, 20 MG PO DAILY, (Reported) Fenofibrate Nanocrystallized 145 Mg Tablet, 145 MG PO DAILY, (Reported) Gabapentin 600 Mg Tablet, 600 MG PO TID, (Reported) Glimepiride 2 Mg Tablet, 2 MG PO DAILY, (Reported) Hydrocodone/Acetaminophen 1 Each Tablet, 1 TAB PO Q4H PRN for PAIN-MODERATE (5- 7) Prescribed by: LOGAN SNELL on 07/20/202144 Lisinopril 10 Mg Tablet, 10 MG PO DAILY, (Reported) Mesalamine 1.2 Gm Tablet.dr, 4.8 GM PO DAILY, (Reported) TAKES 4 (1.2GM) TABLETS Metoprolol Tartrate 25 Mg Tablet, 25 MG PO BID, (Reported) Multivitamin 1 Each Tablet, 1 TAB PO DAILY, (Reported) Nifedipine 60 Mg Tablet.er, 60 MG PO DAILY, (Reported) [employer]-3 Acid Ethyl Esters 1 Gm Capsule, 2 GM PO BID, (Reported) TAKES 2 (1GM) CAPSULES Omeprazole 40 Mg Capsule.dr, 40 MG PO HS, (Reported) Potassium Chloride 20 Meq Tab.er.prt, 40 MEQ PO BID, (Reported) TAKES 2 (20MEQ) TABS Ropinirole HCl 5 Mg Tablet, 5 MG PO TID, (Reported) Sodium Bicarbonate 650 Mg Tablet, 1,300 MG PO BID, (Reported) TAKES 2 (650MG) TABS Solifenacin Succinate 5 Mg Tablet, 5 MG PO DAILY, (Reported) Sucralfate 1 Gm Tablet, 1 GM PO BID WITH MEALS, (Reported) Tamsulosin HCl 0.4 Mg Cap, 0.4 MG PO HS, (Reported) Testosterone Cypionate 200 Mg/1 Ml Vial, 1 ML IM EVERY 2 WEEKS, (Reported) Topiramate 200 Mg Tablet, 200 MG PO BID, (Reported) Patient Home Medication List Home Medication List Reviewed: Yes Review of Systems Review of Systems Constitutional: No chills, No fever, No malaise EENTM: No ear discharge, No ear pain Respiratory: No cough, No short of breath Cardiovascular: No chest pain, No Hx of Intervention Gastrointestinal: No abdominal pain, No nausea, No vomiting Genitourinary: No discharge, No dysuria; frequency Musculoskeletal: No back pain, No joint pain All Other Systems Reviewed Negative Unless Noted: Yes Past Vhiffri-Rnolvh-Dvmohh Hx Patient Social History Alcohol Use: Regular Use Alcohol Beverage of Choice: Beer Drug of Choice: marijuana Smoking Status: Former Smoker Type Used: Cigarettes Former Smoker, Quit: Jun 04, 2017 2nd Hand Smoke Exposure: No Recent Hopitalizations: No Immunizations Up To Date Tetanus Booster (TDap): Unknown PED Vaccines UTD: No Date of Pneumonia Vaccine: May 22, 2016 Date of Influenza Vaccine: Nov 12, 2019 Seasonal Allergies Seasonal Allergies: No Past Medical History Surgeries: Yes (LAP EVELIO, BACK SURGERY, FINGER) Cardiac, Gallbladder, Orthopedic, Renal Respiratory: Yes (C-PAP MACHINE) Sleep Apnea, COPD Currently Using CPAP: Yes Currently Using BIPAP: No Cardiac: Yes High Cholesterol, Hypertension Neurological: No Reproductive Disorders: No Sexually Transmitted Disease: No HIV/AIDS: No Genitourinary: Yes Kidney Stones, Renal Failure Gastrointestinal: Yes (S/P EVELIO; FATTY LIVER ON CT. ) Colitis, Gastroesophageal Reflux, Gall Bladder Disease Musculoskeletal: Yes Arthritis, Chronic Back Pain Endocrine: Yes (MORBID OBESITY) Diabetes, Non-Insulin dep HEENT: Yes Cancer: No Psychosocial: Yes (BIPOLAR, POLYSUBSTANCE ABUSE) Anxiety, Bipolar, Depression Integumentary: No Blood Disorders: No Adverse Reaction/Blood Tranf: No Family Medical History Completed stroke DVT 19 MOTHER, , Onset:Unknown Diabetes mellitus 19 MOTHER, , Onset:Unknown G8 BROTHER, Onset:Unknown FH: gastric ulcer 19 FATHER, Onset:Unknown DVT/PE, Diabetes, GI Disease Physical Exam Vital Signs Vital Signs - First Documented 07/26/20 21:18 Temp 36.7 Pulse 109 Resp 22 B/P (MAP) 157/98 (117) Pulse Ox 97 O2 Delivery Room Air Capillary Refill : Height, Weight, BMI Height: 5'10.00" Weight: 330lbs. 3.0oz. 149.298455go; 51.00 BMI Method:Stated General Appearance: No Apparent Distress, WD/WN Eyes: Bilateral Eye Normal Inspection, Bilateral Eye PERRL, Bilateral Eye EOMI HEENT: PERRL/EOMI, Pharynx Normal, Moist Mucous Membranes Neck: Full Range of Motion, Normal Inspection Respiratory: Lungs Clear, Normal Breath Sounds, No Accessory Muscle Use, No Respiratory Distress Cardiovascular: Regular Rate, Rhythm, No Edema, Normal Peripheral Pulses Gastrointestinal: Normal Bowel Sounds, Non Tender, Soft Progress/Results/Core Measures Suspected Sepsis SIRS Temperature: Pulse: Respiratory Rate: Laboratory Tests 07/26/20 21:20: White Blood Count 18.4H Blood Pressure / Mean: Laboratory Tests 07/26/20 21:20: Creatinine 2.30H, Platelet Count 211, Total Bilirubin 0.4 Results/Orders Lab Results Laboratory Tests Test 07/26/20 21:20 07/26/20 21:53 07/26/20 22:18 07/26/20 22:55 Range/Units White Blood Count 18.4 H 4.3-11.0 10^3/uL Red Blood Count 4.39 4.30-5.52 10^6/uL Hemoglobin 13.6 13.3-17.7 g/dL Hematocrit 41 40-54 % Mean Corpuscular Volume 93 80-99 fL Mean Corpuscular Hemoglobin 31 25-34 pg Mean Corpuscular Hemoglobin Concent 33 32-36 g/dL Red Cell Distribution Width 13.4 10.0-14.5 % Platelet Count 211 130-400 10^3/uL Mean Platelet Volume 10.9 9.0-12.2 fL Immature Granulocyte % (Auto) 2 % Neutrophils (%) (Auto) 83 H 42-75 % Lymphocytes (%) (Auto) 9 L 12-44 % Monocytes (%) (Auto) 6 0-12 % Eosinophils (%) (Auto) 0 0-10 % Basophils (%) (Auto) 0 0-10 % Neutrophils # (Auto) 15.3 H 1.8-7.8 10^3/uL Lymphocytes # (Auto) 1.7 1.0-4.0 10^3/uL Monocytes # (Auto) 1.1 H 0.0-1.0 10^3/uL Eosinophils # (Auto) 0.0 0.0-0.3 10^3/uL Basophils # (Auto) 0.0 0.0-0.1 10^3/uL Immature Granulocyte # (Auto) 0.3 H 0.0-0.1 10^3/uL Neutrophils % (Manual) 84 % Lymphocytes % (Manual) 10 % Monocytes % (Manual) 6 % Blood Morphology Comment NORMAL Sodium Level 131 L 135-145 MMOL/L Potassium Level 5.0 3.6-5.0 MMOL/L Chloride Level 98 98-107 MMOL/L Carbon Dioxide Level 23 21-32 MMOL/L Anion Gap 10 5-14 MMOL/L Blood Urea Nitrogen 23 H 7-18 MG/DL Creatinine 2.30 H 0.60-1.30 MG/DL Estimat Glomerular Filtration Rate 30 BUN/Creatinine Ratio 10 Glucose Level 424 *H 70-105 MG/DL Glucometer 397 H 426 *H 394 H 70-110 MG/DL Calcium Level 9.4 8.5-10.1 MG/DL Corrected Calcium 9.6 8.5-10.1 MG/DL Total Bilirubin 0.4 0.1-1.0 MG/DL Aspartate Amino Transf (AST/SGOT) 16 5-34 U/L Alanine Aminotransferase (ALT/SGPT) 28 0-55 U/L Alkaline Phosphatase 100 40-136 U/L Total Protein 6.8 6.4-8.2 GM/DL Albumin 3.8 3.2-4.5 GM/DL Urine Color YELLOW Urine Clarity CLEAR Urine pH 6.0 5-9 Urine Specific [place] 1.010 L 1.016-1.022 Urine Protein NEGATIVE NEGATIVE Urine Glucose (UA) 3+ H NEGATIVE Urine Ketones NEGATIVE NEGATIVE Urine Nitrite NEGATIVE NEGATIVE Urine Bilirubin NEGATIVE NEGATIVE Urine Urobilinogen 0.2 < = 1.0 MG/DL Urine Leukocyte Esterase NEGATIVE NEGATIVE Urine RBC (Auto) TRACE-I NEGATIVE Urine RBC 2-5 H /HPF Urine WBC 0-2 /HPF Urine Crystals PRESENT H /LPF Urine Amorphous Sediment RARE TARYN URATES H /LPF Urine Bacteria TRACE /HPF Urine Casts NONE /LPF Urine Mucus NEGATIVE /LPF Urine Culture Indicated NO My Orders Orders - SALTY MENDEZ Insulin (Regular) Human (Novolin R (Per (07/26/20 21:30) Insulin Determir (Per Unit) (Levemir (Pe (07/26/20 21:30) Accucheck Stat ONCE (07/26/20 21:21) Cbc With Automated Diff (07/26/20 21:21) Comprehensive Metabolic Panel (07/26/20 21:21) Ed Iv/Invasive Line Start (07/26/20 21:21) Ns Iv 1000 Ml (Sodium Chloride 0.9%) (07/26/20 21:30) Ua Culture If Indicated (07/26/20 21:26) Manual Differential (07/26/20 21:20) Accucheck Stat ONCE (07/26/20 22:19) Insulin (Regular) Human (Novolin R (Per (07/26/20 22:30) Accucheck Stat ONCE (07/26/20 22:54) Medications Given in ED Current Medications Medications Dose Ordered Sig/Saba Route Start Time Stop Time Status Last Admin Dose Admin Insulin Detemir 10 unit ONCE ONCE SQ 07/26/20 21:30 5/26/21 21:31 DC 07/26/20 21:34 10 UNIT Insulin Human Regular 5 unit ONCE ONCE SC 07/26/20 21:30 07/26/20 21:31 DC 07/26/20 21:34 5 UNIT Insulin Human Regular 10 unit ONCE ONCE SC 07/26/20 22:30 07/26/20 22:31 DC 07/26/20 22:25 10 UNIT Vital Signs/I&O 07/26/20 21:18 Temp 36.7 Pulse 109 Resp 22 B/P (MAP) 157/98 (117) Pulse Ox 97 O2 Delivery Room Air Capillary Refill : Progress Note #1: Time: 21:25 Progress Note Steroid-induced hyperglycemia. Plan to give him 5 units regular insulin subcu and 10 units of Levemir to hold him down. We will recheck his sugar in about an hour. His initial blood sugar was 397. We will give him a liter of normal saline check some labs and a urine. Progress Note #2: Time: 22:27 Progress Note The patient is doing well. His blood sugar did not come down on repeat Accu- Chek 45 minutes later so we gave 10 units of regular insulin and will observe him for short while later. Progress Note #3: Time: 23:20 Progress Note His blood sugar is starting to improve down below 400. We are going to give him another 15 units of regular insulin IV and 10 units of Levemir subcu in addition to the previous insulin. We discussed return precautions and hypoglycemia protocol and the patient is okay with going home. He can expect elevated blood sugar over the next week. Departure Impression Primary Impression: Steroid-induced hyperglycemia Disposition: 01 HOME, SELF-CARE Condition: Stable Departure-Patient Inst. Decision time for Depature: 23:19 Referrals: ÁNGEL CASPER MD (PCP/Family) Primary Care Physician Patient Instructions: Hyperglycemia, Adult (DC) Add. Discharge Instructions: Over the next 5 days your blood sugar should start to improve as the steroids wear off. You should avoid taking 2 doses of steroids at the same time in the future. Drink plenty of fluids to stay hydrated. If you are feeling cold clammy sweaty or having a headache then you should check your blood sugar promptly and return to the ER if it is dropping below 70. All discharge instructions reviewed with patient and/or family. Voiced understanding. SALTY MENDEZ July 26, 2020 21:26
[2020-07-26] MEDS ORDERED: inSUlin (REGULAR) HUMAN 1 UNIT/0.01 ML (CHARGE PER UNIT) SC ONE ×2 (21:30→22:30)
[2020-07-26] MEDS ORDERED: NS IV 1000 ML 1,000 ML IV SCH (21:30)
[2020-07-26 21:37] LABS: BASOPHILS % (AUTO) 0 % (0-10); EOSINOPHILS % (AUTO) 0 % (0-10); HEMATOCRIT 41 % (40-54); HEMOGLOBIN 13.6 g/dL (13.3-17.7); LYMPHOCYTES # (AUTO) 1.7 10^3/uL (1.0-4.0); LYMPHOCYTES % (AUTO) 9 % (12-44); MEAN CORPUSCULAR HEMOGLOBIN 31 pg (25-34); MEAN CORPUSCULAR HGB CONC 33 g/dL (32-36); MEAN CORPUSCULAR VOLUME 93 fL (80-99); MEAN PLATELET VOLUME 10.9 fL (9.0-12.2); MONOCYTES # (AUTO) 1.1 10^3/uL (0.0-1.0); MONOCYTES % (AUTO) 6 % (0-12); NEUTROPHILS # (AUTO) 15.3 10^3/uL (1.8-7.8); NEUTROPHILS % (AUTO) 83 % (42-75); PLATELET COUNT 211 10^3/uL (130-400); WHITE BLOOD COUNT 18.4 10^3/uL (4.3-11.0)
[2020-07-26 21:53] LABS: ALBUMIN 3.8 GM/DL (3.2-4.5); BILIRUBIN,TOTAL 0.4 MG/DL (0.1-1.0); CALCIUM 9.4 MG/DL (8.5-10.1); CREATININE SERUM 2.3 MG/DL (0.60-1.30); TOTAL PROTEIN 6.8 GM/DL (6.4-8.2)
[2020-07-26 21:59] LABS: BILIRUBIN,URINE NEGATIVE (NEGATIVE); CLARITY,URINE CLEAR; COLOR,URINE YELLOW; GLUCOSE, URINE (UA) 3+ (NEGATIVE); KETONES,URINE NEGATIVE (NEGATIVE); LEUKOCYTE ESTERASE ,URINE NEGATIVE (NEGATIVE); NITRITE,URINE NEGATIVE (NEGATIVE); PROTEIN,URINE NEGATIVE (NEGATIVE)
[2020-07-26 22:08] LABS: AMORPHOUS SEDIMENT,UR RARE AMOR URATES /LPF; BACTERIA,URINE TRACE /HPF; WBC,URINE 0-2 /HPF
[2020-07-26 22:13] LABS: LYMPHOCYTES % (MANUAL) 10 %; MONOCYTES % (MANUAL) 6 %; NEUTROPHILS % (MANUAL) 84 %; RBC MORPH NORMAL
[2020-07-26] MEDS ORDERED: inSUlin (REGULAR) HUMAN 1 UNIT/0.01 ML (CHARGE PER UNIT) IV ONE (23:30)
[2020-07-26 23:35] VITALS: BP 138/75
== END 2020-07-26 23:31 | disposition home or self-care (01) ==
LOC: EDUNIT# 21:04 → ER 21:05
DX: T38.0X5A Adverse effect of glucocorticoids and synthetic analogues, initial encounter (principal); E09.65 Drug or chemical induced diabetes mellitus with hyperglycemia; I10 Essential (primary) hypertension; E78.00 Pure hypercholesterolemia, unspecified; J44.9 Chronic obstructive pulmonary disease, unspecified; G47.30 Sleep apnea, unspecified; K21.9 Gastro-esophageal reflux disease without esophagitis; F41.9 Anxiety disorder, unspecified; F31.9 Bipolar disorder, unspecified; G89.29 Other chronic pain; M54.9 Dorsalgia, unspecified; E66.9 Obesity, unspecified; Z68.43 Body mass index [BMI] 50.0-59.9, adult; Z99.89 Dependence on other enabling machines and devices; Z87.891 Personal history of nicotine dependence; Z87.442 Personal history of urinary calculi; Z79.891 Long term (current) use of opiate analgesic; Z79.82 Long term (current) use of aspirin; Z79.899 Other long term (current) drug therapy; Z79.84 Long term (current) use of oral hypoglycemic drugs
CPT/HCPCS: 36415; 80053; 81000; 82947; 85007; 85027; 96372

== ENCOUNTER → 2020-07-26 | Outpatient (CLI) | payer MEDICAID ==
[~2020-07-26] MED LIST changes: +CEFU500T63 PO
--- NOTE | 2020-07-26 17:10 | Diagnostic Imaging Report ---
INDICATION: Left renal calculus. COMPARISON: 07/20/2020 FINDINGS: Two supine radiographic views of the abdomen were obtained. Previously described large calculus within the distal left ureter appears to have slightly migrated distally. It now resides at the level of the inferior endplate of L4. Multiple additional extraosseous calcifications are seen projecting over the bilateral renal shadows and correspond to nonobstructive renal calculus seen on recent previous CT. No unexpected radiopaque foreign bodies are seen. Small bowel loops are nondistended. There is no large collection of free intraperitoneal air. IMPRESSION: 1. Large left ureteral calculus shows slight interval distal migration. 2. Redemonstration of bilateral renal calculi. Dictated by: Dictated on workstation # [id number]
== END ==
LOC: RAD 14:31
PROVIDERS: ATTEND Urology
DX: N20.2 Calculus of kidney with calculus of ureter (principal)
CPT/HCPCS: 74018

== ENCOUNTER 2020-07-31 19:02 | Emergency (ER) | payer MEDICAID ==
[~2020-07-31] VITALS: Ht 177.8 cm; Wt 162.0 kg
--- NOTE | 2020-07-31 19:12 | ED GI ---
General Chief Complaint: Abdominal/GI Problems Stated Complaint: FEVER,CHILLS,/N/V Source of Information: Patient Exam Limitations: No Limitations History of Present Illness Date Seen by Provider: July 31, 2020 Time Seen by Provider: 19:12 Initial Comments To ER by EMS from home with fever, left abd pain, cough. Recently dx with left u reteral stone on 07/20/20. Timing/Duration: 1-2 Days Severity/Quality: Moderate Location: Flank Radiation: Flank Activities at Onset: None Associated Symptoms: Denies Symptoms Allergies and Home Medications Allergies Coded Allergies: No Known Drug Allergies (Unverified , 12/21/17) Home Medications Acetaminophen 500 Mg Tablet, 1,000 MG PO Q4H PRN for PAIN-MILD (1-4), (Reported) Allopurinol 100 Mg Tablet, 100 MG PO DAILY, (Reported) Aripiprazole 30 Mg Tablet, 30 MG PO DAILY, (Reported) Aspirin 81 Mg Tablet.dr, 81 MG PO DAILY, (Reported) Atorvastatin Calcium 40 Mg Tablet, 40 MG PO HS, (Reported) Cefuroxime Axetil 500 Mg Tablet, 500 MG PO BID Prescribed by: LOGAN SNELL on 07/20/202143 Cephalexin 500 Mg Tablet, 500 MG PO TID Prescribed by: RUDY MEREDITH on 05/20/20437 Duloxetine HCl 30 Mg Capsule.dr, 30 MG PO DAILY, (Reported) TAKES 30MG + 60MG TOGETHER TO EQUAL 90MG DAILY Duloxetine HCl 60 Mg Capsule.dr, 60 MG PO DAILY, (Reported) TAKES 30MG + 60MG TOGETHER TO EQUAL 90MG DAILY Famotidine 20 Mg Tablet, 20 MG PO DAILY, (Reported) Fenofibrate Nanocrystallized 145 Mg Tablet, 145 MG PO DAILY, (Reported) Gabapentin 600 Mg Tablet, 600 MG PO TID, (Reported) Glimepiride 2 Mg Tablet, 2 MG PO DAILY, (Reported) Hydrocodone/Acetaminophen 1 Each Tablet, 1 TAB PO Q4H PRN for PAIN-MODERATE (5- 7) Prescribed by: LOGAN SNELL on 07/20/202144 Lisinopril 10 Mg Tablet, 10 MG PO DAILY, (Reported) Mesalamine 1.2 Gm Tablet.dr, 4.8 GM PO DAILY, (Reported) TAKES 4 (1.2GM) TABLETS Metoprolol Tartrate 25 Mg Tablet, 25 MG PO BID, (Reported) Multivitamin 1 Each Tablet, 1 TAB PO DAILY, (Reported) Nifedipine 60 Mg Tablet.er, 60 MG PO DAILY, (Reported) [place]-3 Acid Ethyl Esters 1 Gm Capsule, 2 GM PO BID, (Reported) TAKES 2 (1GM) CAPSULES Omeprazole 40 Mg Capsule.dr, 40 MG PO HS, (Reported) Potassium Chloride 20 Meq Tab.er.prt, 40 MEQ PO BID, (Reported) TAKES 2 (20MEQ) TABS Ropinirole HCl 5 Mg Tablet, 5 MG PO TID, (Reported) Sodium Bicarbonate 650 Mg Tablet, 1,300 MG PO BID, (Reported) TAKES 2 (650MG) TABS Solifenacin Succinate 5 Mg Tablet, 5 MG PO DAILY, (Reported) Sucralfate 1 Gm Tablet, 1 GM PO BID WITH MEALS, (Reported) Tamsulosin HCl 0.4 Mg Cap, 0.4 MG PO HS, (Reported) Testosterone Cypionate 200 Mg/1 Ml Vial, 1 ML IM EVERY 2 WEEKS, (Reported) Topiramate 200 Mg Tablet, 200 MG PO BID, (Reported) Patient Home Medication List Home Medication List Reviewed: Yes Review of Systems Review of Systems Constitutional: see HPI, chills EENTM: No Symptoms Reported Respiratory: No Symptoms Reported Cardiovascular: See HPI Gastrointestinal: See HPI, Abdominal Pain Genitourinary: No Symptoms Reported Musculoskeletal: no symptoms reported Skin: no symptoms reported Psychiatric/Neurological: No Symptoms Reported Endocrine: No Symptoms Reported Hematologic/Lymphatic: No Symptoms Reported Past Pwuzfic-Msitug-Kapqxd Hx Patient Social History Alcohol Beverage of Choice: Beer Drug of Choice: marijuana Type Used: Cigarettes Former Smoker, Quit: Jun 04, 2017 2nd Hand Smoke Exposure: Yes Recent Hopitalizations: No Immunizations Up To Date Tetanus Booster (TDap): Unknown PED Vaccines UTD: No Date of Pneumonia Vaccine: May 22, 2016 Date of Influenza Vaccine: Nov 12, 2019 Seasonal Allergies Seasonal Allergies: No Past Medical History Surgeries: Yes Gallbladder, Orthopedic Respiratory: Yes COPD Currently Using CPAP: No Currently Using BIPAP: No Cardiac: Yes Hypertension Neurological: No Reproductive Disorders: No Sexually Transmitted Disease: No HIV/AIDS: No Genitourinary: Yes Kidney Stones, Renal Failure Gastrointestinal: Yes (S/P EVELIO; FATTY LIVER ON CT. ) Colitis, Gastroesophageal Reflux, Gall Bladder Disease Musculoskeletal: Yes Arthritis Endocrine: Yes Diabetes, Non-Insulin dep HEENT: Yes Cancer: No Psychosocial: Yes (BIPOLAR, POLYSUBSTANCE ABUSE) Anxiety, Bipolar, Depression Integumentary: No Blood Disorders: No Adverse Reaction/Blood Tranf: No Family Medical History Completed stroke DVT 19 MOTHER, , Onset:Unknown Diabetes mellitus 19 MOTHER, , Onset:Unknown G8 BROTHER, Onset:Unknown FH: gastric ulcer 19 FATHER, Onset:Unknown DVT/PE, Diabetes, GI Disease Physical Exam Vital Signs Vital Signs - First Documented 07/31/20 19:04 Temp 36.8 Pulse 122 Resp 12 B/P (MAP) 135/75 (95) Pulse Ox 96 O2 Delivery Nasal Cannula O2 Flow Rate 2.00 Capillary Refill : Height/Weight/BMI Height: 5'10.00" Weight: 330lbs. 3.0oz. 149.757781mr; 51.00 BMI Method:Stated General Appearance: WD/WN, no apparent distress, obese, other (t102) Neck: non-tender Respiratory: no respiratory distress, no accessory muscle use Cardiovascular: no murmur, tachycardia Gastrointestinal: normal bowel sounds, non tender, soft Neurologic/Psychiatric: alert, normal mood/affect, oriented x 3 Skin: normal color, warm/dry Focused Exam Lactate Level 07/31/20 21:10: Lactic Acid Level 2.53*H Lactic Acid Level Laboratory Tests Test 07/31/20 21:10 Lactic Acid Level 2.53 MMOL/L (0.50-2.00) *H Progress/Results/Core Measures Results/Orders Lab Results Laboratory Tests Test 07/31/20 19:11 07/31/20 19:20 07/31/20 21:10 Range/Units White Blood Count 17.5 H 4.3-11.0 10^3/uL Red Blood Count 4.57 4.30-5.52 10^6/uL Hemoglobin 13.9 13.3-17.7 g/dL Hematocrit 41 40-54 % Mean Corpuscular Volume 91 80-99 fL Mean Corpuscular Hemoglobin 30 25-34 pg Mean Corpuscular Hemoglobin Concent 34 32-36 g/dL Red Cell Distribution Width 13.2 10.0-14.5 % Platelet Count 289 130-400 10^3/uL Mean Platelet Volume 10.0 9.0-12.2 fL Immature Granulocyte % (Auto) 3 % Neutrophils (%) (Auto) 85 H 42-75 % Lymphocytes (%) (Auto) 6 L 12-44 % Monocytes (%) (Auto) 6 0-12 % Eosinophils (%) (Auto) 0 0-10 % Basophils (%) (Auto) 0 0-10 % Neutrophils # (Auto) 14.8 H 1.8-7.8 10^3/uL Lymphocytes # (Auto) 1.0 1.0-4.0 10^3/uL Monocytes # (Auto) 1.0 0.0-1.0 10^3/uL Eosinophils # (Auto) 0.1 0.0-0.3 10^3/uL Basophils # (Auto) 0.1 0.0-0.1 10^3/uL Immature Granulocyte # (Auto) 0.5 H 0.0-0.1 10^3/uL Neutrophils % (Manual) 81 % Lymphocytes % (Manual) 10 % Monocytes % (Manual) 8 % Eosinophils % (Manual) 1 % Blood Morphology Comment NORMAL Sodium Level 130 L 135-145 MMOL/L Potassium Level 3.9 3.6-5.0 MMOL/L Chloride Level 98 98-107 MMOL/L Carbon Dioxide Level 21 21-32 MMOL/L Anion Gap 11 5-14 MMOL/L Blood Urea Nitrogen 15 7-18 MG/DL Creatinine 2.27 H 0.60-1.30 MG/DL Estimat Glomerular Filtration Rate 31 BUN/Creatinine Ratio 7 Glucose Level 163 H 70-105 MG/DL Calcium Level 9.2 8.5-10.1 MG/DL Corrected Calcium 9.5 8.5-10.1 MG/DL Total Bilirubin 0.8 0.1-1.0 MG/DL Aspartate Amino Transf (AST/SGOT) 16 5-34 U/L Alanine Aminotransferase (ALT/SGPT) 18 0-55 U/L Alkaline Phosphatase 70 40-136 U/L Total Protein 6.9 6.4-8.2 GM/DL Albumin 3.6 3.2-4.5 GM/DL Urine Color ORANGE Urine Clarity CLEAR Urine pH 6.0 5-9 Urine Specific [place] 1.025 H 1.016-1.022 Urine Protein 2+ H NEGATIVE Urine Glucose (UA) NEGATIVE NEGATIVE Urine Ketones NEGATIVE NEGATIVE Urine Nitrite NEGATIVE NEGATIVE Urine Bilirubin NEGATIVE NEGATIVE Urine Urobilinogen 0.2 < = 1.0 MG/DL Urine Leukocyte Esterase NEGATIVE NEGATIVE Urine RBC (Auto) TRACE-I NEGATIVE Urine RBC 2-5 H /HPF Urine WBC 5-10 H /HPF Urine Crystals PRESENT H /LPF Urine Amorphous Sediment RARE TARYN URATES H /LPF Urine Bacteria TRACE /HPF Urine Casts NONE /LPF Urine Mucus NEGATIVE /LPF Urine Culture Indicated NO Lactic Acid Level 2.53 *H 0.50-2.00 MMOL/L My Orders Orders - LOGAN SNELL APRN Cbc With Automated Diff (07/31/20 19:05) Comprehensive Metabolic Panel (07/31/20 19:05) Ua Culture If Indicated (07/31/20 19:05) Ed Iv/Invasive Line Start (07/31/20 19:05) Chest 1 View, Ap/Pa Only (07/31/20 19:05) Ct Abd/Pelvis Wo(Kidney Stone) (07/31/20 19:05) Ns Iv 1000 Ml (Sodium Chloride 0.9%) (07/31/20 19:30) Manual Differential (07/31/20 19:11) Ceftriaxone For Iv Use (Rocephin For I (07/31/20 20:00) Vancomycin Injection (Vancomycin Injecti (07/31/20 20:00) Lactated Ringers (Lr 1000 Ml Iv Solution (07/31/20 20:15) Blood Culture (07/31/20 20:26) Lactic Acid Analyzer (07/31/20 20:26) Medications Given in ED Current Medications Medications Dose Ordered Sig/Saba Route Start Time Stop Time Status Last Admin Dose Admin Ceftriaxone Sodium 1000 mg/ Sterile Water 10 ml @ 200 mls/hr ONCE ONCE IV 07/31/20 20:00 07/31/20 20:02 DC 07/31/20 20:09 200 MLS/HR Vital Signs/I&O 07/31/20 19:04 Temp 36.8 Pulse 122 Resp 12 B/P (MAP) 135/75 (95) Pulse Ox 96 O2 Delivery Nasal Cannula O2 Flow Rate 2.00 Diagnostic Imaging Diagonstic Imaging: Xray, CT Plain Films/CT/US/NM/MRI: chest, abdomen, pelvis Comments NAME: [facility] REC#: [id number] PT STATUS: REG ER : 1970 PHYSICIAN: LOGAN SNELL APRN ADMIT DATE: 07/31/20/ER Draft Date of Exam:07/31/20 CHEST 1 VIEW, AP/PA ONLY INDICATION: Left flank pain and history of nephrolithiasis. COMPARISON: 03/06/2020 FINDINGS: The heart size is normal. There is no pleural effusion, pneumothorax or pneumonia. There is patchy bibasilar atelectasis and/or pneumonitis. IMPRESSION: Patchy bibasilar atelectasis and/or pneumonitis, right greater than left. Dictated on workstation # [id number] Dict: 07/31/201930 Trans: 07/31/201935 [facility] [phone] Interpreted by: HALEY CASTANEDA MD Electronically signed by: NAME: [facility] REC#: [id number] PT STATUS: REG ER : 1970 PHYSICIAN: LOGAN SNELL APRN ADMIT DATE: 07/31/20/ER Draft Date of Exam:07/31/20 CT ABD/PELVIS WO(KIDNEY STONE) PROCEDURE: CT urinary tract, rule out kidney stone. TECHNIQUE: Multiple contiguous axial images were obtained through the abdomen and pelvis without the use of intravenous contrast. Auto Exposure Controls were utilized during the CT exam to meet ALARA standards for radiation dose reduction. INDICATION: Left flank pain. COMPARISON made with prior examination 07/20/2020. FINDINGS: The lung bases are clear. The liver is normal in size and without focal lesions. Gallbladder is surgically absent. There is no biliary ductal dilatation. Spleen is normal. The pancreas and adrenal glands are unremarkable. There are bilateral nonobstructing renal calculi. There is an unchanged 1.2 cm stone just below the left UPJ. The aorta is nonaneurysmal. Bowel gas pattern is nonspecific. The appendix is normal. There is no free air. Bladder is normal. There is no pelvic mass, adenopathy or free fluid IMPRESSION: Unchanged 1.2 cm stone just below the left UPJ. Multiple additional nonobstructing bilateral renal calculi. No other acute abnormality in the abdomen or pelvis. Dictated on workstation # [id number] Dict: 07/31/201938 Trans: 07/31/201941 [facility] [phone] Interpreted by: HALEY CASTANEDA MD Electronically signed by: Departure Communication (Admissions) 2035-Dr Luz unavailable, Im unable to contact him despite a few attempts. Trying to determine his availabliity for consult tomorrow on this patient. No answer. Spoke with Dr Baez from hospitalist service here. I will transfer this gentleman to facility with urology capabilities. Spoke with [facility] hospitalist Dr Sanchez and Dr Caballero from urology. Dr Caballero recommends admitting to hospitalist service given comorbidities (CLIFTNO, NIDDM, HLD, HTN, COPD, GERD, Bipolar Disorder, Depression,) and making NPO after midnight and consulting Dr Loomis in AM. Pt is also on baby aspirin. Most recent Urine culture from 07/20/20 shows Staph epidermidis with sensitivity to rifampin, vancomycin, nitrofurantoin. As such pt has received vancomycin here as well as rocephin. At this time BP107/59, HR 107. Impression Primary Impression: Sepsis Additional Impressions: Pyelonephritis GABRIELE (acute kidney injury) Left ureteral stone Disposition: XF [facility]-TRM HOSP Condition: Stable Transfer Transfer Reason: Exceeds level of care Time Spoke to Accepting Phy: 20:40 Departure-Patient Inst. Referrals: ÁNGEL CASPER MD (PCP/Family) Primary Care Physician LOGAN SNELL TOPOGRAPHICAL FIELD ASSISTANT July 31, 2020 19:12
[2020-07-31 19:25] LABS: BILIRUBIN,URINE NEGATIVE (NEGATIVE); CLARITY,URINE CLEAR; COLOR,URINE ORANGE; GLUCOSE, URINE (UA) NEGATIVE (NEGATIVE); KETONES,URINE NEGATIVE (NEGATIVE); LEUKOCYTE ESTERASE ,URINE NEGATIVE (NEGATIVE); NITRITE,URINE NEGATIVE (NEGATIVE); PROTEIN,URINE 2+ (NEGATIVE)
[2020-07-31 19:28] LABS: BASOPHILS # (AUTO) 0.1 10^3/uL (0.0-0.1); BASOPHILS % (AUTO) 0 % (0-10); EOSINOPHILS # (AUTO) 0.1 10^3/uL (0.0-0.3); EOSINOPHILS % (AUTO) 0 % (0-10); HEMATOCRIT 41 % (40-54); HEMOGLOBIN 13.9 g/dL (13.3-17.7); LYMPHOCYTES % (AUTO) 6 % (12-44); MEAN CORPUSCULAR HEMOGLOBIN 30 pg (25-34); MEAN CORPUSCULAR HGB CONC 34 g/dL (32-36); MEAN CORPUSCULAR VOLUME 91 fL (80-99); MONOCYTES % (AUTO) 6 % (0-12); NEUTROPHILS # (AUTO) 14.8 10^3/uL (1.8-7.8); NEUTROPHILS % (AUTO) 85 % (42-75); PLATELET COUNT 289 10^3/uL (130-400); WHITE BLOOD COUNT 17.5 10^3/uL (4.3-11.0)
[2020-07-31] MEDS ORDERED: NS IV 1000 ML 1,000 ML IV SCH (19:30)
--- NOTE | 2020-07-31 19:36 | Diagnostic Imaging Report ---
INDICATION: Left flank pain and history of nephrolithiasis. COMPARISON: 03/06/2020 FINDINGS: The heart size is normal. There is no pleural effusion, pneumothorax or pneumonia. There is patchy bibasilar atelectasis and/or pneumonitis. IMPRESSION: Patchy bibasilar atelectasis and/or pneumonitis, right greater than left. Dictated by: Dictated on workstation # [id number]
[2020-07-31 19:41] LABS: AMORPHOUS SEDIMENT,UR RARE AMOR URATES /LPF; BACTERIA,URINE TRACE /HPF
--- NOTE | 2020-07-31 19:42 | Diagnostic Imaging Report ---
PROCEDURE: CT urinary tract, rule out kidney stone. TECHNIQUE: Multiple contiguous axial images were obtained through the abdomen and pelvis without the use of intravenous contrast. Auto Exposure Controls were utilized during the CT exam to meet ALARA standards for radiation dose reduction. INDICATION: Left flank pain. COMPARISON made with prior examination 07/20/2020. FINDINGS: The lung bases are clear. The liver is normal in size and without focal lesions. Gallbladder is surgically absent. There is no biliary ductal dilatation. Spleen is normal. The pancreas and adrenal glands are unremarkable. There are bilateral nonobstructing renal calculi. There is an unchanged 1.2 cm stone just below the left UPJ. The aorta is nonaneurysmal. Bowel gas pattern is nonspecific. The appendix is normal. There is no free air. Bladder is normal. There is no pelvic mass, adenopathy or free fluid IMPRESSION: Unchanged 1.2 cm stone just below the left UPJ. Multiple additional nonobstructing bilateral renal calculi. No other acute abnormality in the abdomen or pelvis. Dictated by: Dictated on workstation # [id number]
[2020-07-31 19:55] LABS: ALBUMIN 3.6 GM/DL (3.2-4.5); BILIRUBIN,TOTAL 0.8 MG/DL (0.1-1.0); CALCIUM 9.2 MG/DL (8.5-10.1); CREATININE SERUM 2.27 MG/DL (0.60-1.30); POTASSIUM 3.9 MMOL/L (3.6-5.0); TOTAL PROTEIN 6.9 GM/DL (6.4-8.2)
[2020-07-31] MEDS ORDERED: cefTRIAXone FOR IV USE 1,000 MG in WATER (STERILE) FOR INJECTION 10 ML IV ONE (20:00)
[2020-07-31] MEDS ORDERED: VANCOMYCIN INJECTION 2,000 MG in NS IV 500 ML 500 ML IV SCH (20:00)
[2020-07-31] MEDS ORDERED: LACTATED RINGERS 1,000 ML IV SCH (20:15)
[2020-07-31 20:16] LABS: EOSINOPHILS % (MANUAL) 1 %; LYMPHOCYTES % (MANUAL) 10 %; MONOCYTES % (MANUAL) 8 %; NEUTROPHILS % (MANUAL) 81 %; RBC MORPH NORMAL
[2020-07-31 22:15] VITALS: BP 111/55
== END 2020-07-31 22:16 | disposition short-term general hospital (02) ==
LOC: EDUNIT# 19:02 → ER 19:03
DX: A41.9 Sepsis, unspecified organism (principal); N12 Tubulo-interstitial nephritis, not specified as acute or chronic; N17.9 Acute kidney failure, unspecified; N20.1 Calculus of ureter; I10 Essential (primary) hypertension; E11.9 Type 2 diabetes mellitus without complications; J44.9 Chronic obstructive pulmonary disease, unspecified; E78.00 Pure hypercholesterolemia, unspecified; K21.9 Gastro-esophageal reflux disease without esophagitis; F31.9 Bipolar disorder, unspecified; F41.9 Anxiety disorder, unspecified; E66.9 Obesity, unspecified; Z68.43 Body mass index [BMI] 50.0-59.9, adult; Z87.891 Personal history of nicotine dependence; Z77.22 Contact with and (suspected) exposure to environmental tobacco smoke (acute) (chronic); Z79.84 Long term (current) use of oral hypoglycemic drugs
CPT/HCPCS: 36415; 71045; 74176; 80053; 81000; 83605; 85007; 85027; 87040

== ENCOUNTER 2020-08-06 15:37 | Emergency (ER) | payer MEDICAID ==
[~2020-08-06] VITALS: Ht 70 cm; Wt 163.0 kg
[2020-08-06] MEDS ORDERED: NS IV 1000 ML 1,000 ML IV STA (15:58)
[2020-08-06] MEDS ORDERED: KETOROLAC 30 MG/ML VIAL IVP STA (15:58)
--- NOTE | 2020-08-06 16:03 | ED Back Pain ---
General Chief Complaint: Back Problems Stated Complaint: BACK PAIN Nursing Triage Note: LOW BACK PAIN BILATERALLY FOR LAST COUPLE OF DAYS. Nursing Sepsis Screen: No Definite Risk Source of Information: Patient History of Present Illness Date Seen by Provider: Aug 06, 2020 Time Seen by Provider: 15:39 Initial Comments 49 yo male presenting to the ED with complaint of pain since yesterday. he has pain to both sides of his low back. He reports having stent placed last weekend at [facility] for a kidney stone. He has not had anything for pain today. He was visiting with his brother and decided to come to the ED today. he lives in [place]. He is to see Dr. Casper for follow up tomorrow. He is to follow up with Urology at end of month. He is on Cipro for the stent in his back. Location: Paraspinous Muscles (in lumbar spine) Timing/Duration: 2-3 Days Severity: Moderate Pain/Injury Location: Back Method of Injury: Other (no acute injury but did have ureteral stents placed last weekend) Modifying Factors: Worse With Movement Associated Symptoms: fever (subjective), weakness (general); No numbness in legs/feet, No tingling in legs/feet, No sensory/motor loss; lower back pain; No loss of bladder control, No loss of bowel control Allergies and Home Medications Allergies Coded Allergies: No Known Drug Allergies (Unverified , 12/21/17) Home Medications Acetaminophen 500 Mg Tablet, 1,000 MG PO Q4H PRN for PAIN-MILD (1-4), (Reported) Allopurinol 100 Mg Tablet, 100 MG PO DAILY, (Reported) Aripiprazole 30 Mg Tablet, 30 MG PO DAILY, (Reported) Aspirin 81 Mg Tablet.dr, 81 MG PO DAILY, (Reported) Atorvastatin Calcium 40 Mg Tablet, 40 MG PO HS, (Reported) Cefuroxime Axetil 500 Mg Tablet, 500 MG PO BID Prescribed by: LOGAN SNELL on 07/20/202143 Cephalexin 500 Mg Tablet, 500 MG PO TID Prescribed by: RUDY MEREDITH on 05/20/20 0438 Duloxetine HCl 30 Mg Capsule.dr, 30 MG PO DAILY, (Reported) TAKES 30MG + 60MG TOGETHER TO EQUAL 90MG DAILY Duloxetine HCl 60 Mg Capsule.dr, 60 MG PO DAILY, (Reported) TAKES 30MG + 60MG TOGETHER TO EQUAL 90MG DAILY Famotidine 20 Mg Tablet, 20 MG PO DAILY, (Reported) Fenofibrate Nanocrystallized 145 Mg Tablet, 145 MG PO DAILY, (Reported) Gabapentin 600 Mg Tablet, 600 MG PO TID, (Reported) Glimepiride 2 Mg Tablet, 2 MG PO DAILY, (Reported) Hydrocodone/Acetaminophen 1 Each Tablet, 1 TAB PO Q4H PRN for PAIN-MODERATE (5- 7) Prescribed by: LOGAN SNELL on 07/20/20 2145 Hydrocodone/Acetaminophen 1 Each Tablet, 1 TAB PO Q6H PRN for PAIN-SEVERE (8-10) Prescribed by: HELENA SOTO on 08/06/20 1730 Lisinopril 10 Mg Tablet, 10 MG PO DAILY, (Reported) Mesalamine 1.2 Gm Tablet.dr, 4.8 GM PO DAILY, (Reported) TAKES 4 (1.2GM) TABLETS Metoprolol Tartrate 25 Mg Tablet, 25 MG PO BID, (Reported) Multivitamin 1 Each Tablet, 1 TAB PO DAILY, (Reported) Nifedipine 60 Mg Tablet.er, 60 MG PO DAILY, (Reported) Nitrofurantoin Monohyd/M-Cryst 100 Mg Capsule, 1 TAB PO BID Prescribed by: HELENA SOTO on 08/06/20 1729 [place]-3 Acid Ethyl Esters 1 Gm Capsule, 2 GM PO BID, (Reported) TAKES 2 (1GM) CAPSULES Omeprazole 40 Mg Capsule.dr, 40 MG PO HS, (Reported) Potassium Chloride 20 Meq Tab.er.prt, 40 MEQ PO BID, (Reported) TAKES 2 (20MEQ) TABS Ropinirole HCl 5 Mg Tablet, 5 MG PO TID, (Reported) Sodium Bicarbonate 650 Mg Tablet, 1,300 MG PO BID, (Reported) TAKES 2 (650MG) TABS Solifenacin Succinate 5 Mg Tablet, 5 MG PO DAILY, (Reported) Sucralfate 1 Gm Tablet, 1 GM PO BID WITH MEALS, (Reported) Tamsulosin HCl 0.4 Mg Cap, 0.4 MG PO HS, (Reported) Testosterone Cypionate 200 Mg/1 Ml Vial, 1 ML IM EVERY 2 WEEKS, (Reported) Topiramate 200 Mg Tablet, 200 MG PO BID, (Reported) Patient Home Medication List Home Medication List Reviewed: Yes Review of Systems Constitutional: chills, fever (subjective), weakness (general) EENTM: no symptoms reported Respiratory: dyspnea on exertion Cardiovascular: No chest pain Gastrointestinal: diarrhea (loose yellow stools since being on antibiotics); No nausea, No vomiting Genitourinary: hematuria Musculoskeletal: see HPI Skin: No rash Psychiatric/Neurological: Denies Headache, Denies Numbness Past Fkumvxe-Ochmwo-Kusnfs Hx Past Med/Social Hx: Reviewed Nursing Past Med/Soc Hx Patient Social History Alcohol Use: Occasionally Uses Number of Drinks Today: AA Alcohol Beverage of Choice: Beer Drug of Choice: marijuana Smoking Status: Current Everyday Smoker Type Used: Cigarettes Former Smoker, Quit: Jun 04, 2017 2nd Hand Smoke Exposure: Yes Recent Infectious Disease Expo: No Recent Hopitalizations: No Immunizations Up To Date Tetanus Booster (TDap): Unknown PED Vaccines UTD: No Date of Pneumonia Vaccine: May 22, 2016 Date of Influenza Vaccine: Nov 12, 2019 Seasonal Allergies Seasonal Allergies: No Past Medical History Surgeries: Yes Gallbladder, Orthopedic Respiratory: Yes COPD Currently Using CPAP: No Currently Using BIPAP: No Cardiac: Yes High Cholesterol, Hypertension Neurological: No Reproductive Disorders: No Sexually Transmitted Disease: No HIV/AIDS: No Genitourinary: Yes Kidney Stones, Renal Failure Gastrointestinal: Yes Colitis, Gastroesophageal Reflux, Gall Bladder Disease Musculoskeletal: Yes Arthritis Endocrine: Yes Diabetes, Non-Insulin dep HEENT: Yes Cancer: No Psychosocial: Yes (BIPOLAR, POLYSUBSTANCE ABUSE) Anxiety, Bipolar, Depression Integumentary: No Blood Disorders: No Adverse Reaction/Blood Tranf: No Family Medical History Completed stroke DVT 19 MOTHER, , Onset:Unknown Diabetes mellitus 19 MOTHER, , Onset:Unknown G8 BROTHER, Onset:Unknown FH: gastric ulcer 19 FATHER, Onset:Unknown DVT/PE, Diabetes, GI Disease Physical Exam Vital Signs Vital Signs - First Documented 08/06/20 15:52 Temp 36.2 Pulse 116 Resp 25 B/P (MAP) 116/46 (69) Pulse Ox 97 O2 Delivery Room Air Capillary Refill : Less Than 3 Seconds Height, Weight, BMI Height: 5'10.00" Weight: 330lbs. 3.0oz. [id number]; 332.00 BMI Method:Stated General Appearance: Obese, Other (diaphoretic and working hard to breath) HEENT: PERRL/EOMI, Pharynx Normal Cardiovascular: Normal Peripheral Pulses, Tachycardia Respiratory: Chest Non Tender, Lungs Clear, Normal Breath Sounds Gastrointestinal: No Pulsatile Mass, Soft, Other (obese abdomen with mild ten derness to palpation) Back: No Vertebral Tenderness, Other (tender to palpation bilateral paraspinal muscles in lumbar area) Extremity: Normal Capillary Refill, Normal Range of Motion, Pedal Edema Neurologic/Psychiatric: Alert, Oriented x3 Skin: Normal Color, Diaphoresis Progress/Results/Core Measures Results/Orders Lab Results Laboratory Tests Test 08/06/20 16:15 08/06/20 16:43 Range/Units White Blood Count 15.4 H 4.3-11.0 10^3/uL Red Blood Count 4.50 4.35-5.85 10^6/uL Hemoglobin 13.8 13.3-17.7 G/DL Hematocrit 42 40-54 % Mean Corpuscular Volume 92 80-99 FL Mean Corpuscular Hemoglobin 31 25-34 PG Mean Corpuscular Hemoglobin Concent 33 32-36 G/DL Red Cell Distribution Width 14.2 10.0-14.5 % Platelet Count 354 130-400 10^3/uL Mean Platelet Volume 10.2 7.4-10.4 FL Immature Granulocyte % (Auto) 3 % Neutrophils (%) (Auto) 66 42-75 % Lymphocytes (%) (Auto) 21 12-44 % Monocytes (%) (Auto) 8 0-12 % Eosinophils (%) (Auto) 1 0-10 % Basophils (%) (Auto) 1 0-10 % Neutrophils # (Auto) 10.2 H 1.8-7.8 X 10^3 Lymphocytes # (Auto) 3.3 1.0-4.0 X 10^3 Monocytes # (Auto) 1.2 H 0.0-1.0 X 10^3 Eosinophils # (Auto) 0.2 0.0-0.3 10^3/uL Basophils # (Auto) 0.1 0.0-0.1 10^3/uL Immature Granulocyte # (Auto) 0.4 H 0.0-0.1 10^3/uL Neutrophils % (Manual) 72 % Lymphocytes % (Manual) 14 % Monocytes % (Manual) 13 % Eosinophils % (Manual) 1 % Sodium Level 141 135-145 MMOL/L Potassium Level 3.3 L 3.6-5.0 MMOL/L Chloride Level 107 98-107 MMOL/L Carbon Dioxide Level 22 21-32 MMOL/L Anion Gap 12 5-14 MMOL/L Blood Urea Nitrogen 8 7-18 MG/DL Creatinine 1.19 0.60-1.30 MG/DL Estimat Glomerular Filtration Rate > 60 BUN/Creatinine Ratio 7 Glucose Level 72 70-105 MG/DL Lactic Acid Level 1.97 0.50-2.00 MMOL/L Calcium Level 9.5 8.5-10.1 MG/DL Corrected Calcium 9.9 8.5-10.1 MG/DL Total Bilirubin 0.4 0.1-1.0 MG/DL Aspartate Amino Transf (AST/SGOT) 27 5-34 U/L Alanine Aminotransferase (ALT/SGPT) 31 0-55 U/L Alkaline Phosphatase 91 40-136 U/L C-Reactive Protein 3.39 H <0.50 MG/DL Total Protein 7.0 6.4-8.2 GM/DL Albumin 3.5 3.2-4.5 GM/DL Urine Color YELLOW Urine Clarity CLEAR Urine pH 6.0 5-9 Urine Specific [place] 1.010 L 1.016-1.022 Urine Protein TRACE H NEGATIVE Urine Glucose (UA) NEGATIVE NEGATIVE Urine Ketones NEGATIVE NEGATIVE Urine Nitrite NEGATIVE NEGATIVE Urine Bilirubin NEGATIVE NEGATIVE Urine Urobilinogen 0.2 < = 1.0 MG/DL Urine Leukocyte Esterase TRACE H NEGATIVE Urine RBC (Auto) 2+ H NEGATIVE Urine RBC >100 H /HPF Urine WBC 10-25 H /HPF Urine Squamous Epithelial Cells 5-10 /HPF Urine Crystals NONE /LPF Urine Bacteria FEW H /HPF Urine Casts PRESENT /LPF Urine Coarse Granular Casts 0-2 H /LPF Urine Mucus NEGATIVE /LPF Urine Culture Indicated YES My Orders Orders - HELENA SOTO MD Cbc With Automated Diff (08/06/20 15:58) Comprehensive Metabolic Panel (08/06/20 15:58) Blood Culture (08/06/20 15:58) Ua Culture If Indicated (08/06/20 15:58) Ed Iv/Invasive Line Start (08/06/20 15:58) Crp Fs (08/06/20 15:58) Lactic Acid Analyzer (08/06/20 15:58) Ns Iv 1000 Ml (Sodium Chloride 0.9%) (08/06/20 15:58) Ketorolac Injection (Toradol Injection) (08/06/20 15:58) Ct Abd/Pelvis Wo(Kidney Stone) (08/06/20 15:59) Manual Differential (08/06/20 16:15) Urine Culture (08/06/20 16:43) Vital Signs/I&O 08/06/20 08/06/20 15:52 17:28 Temp 36.2 37.4 Pulse 116 92 Resp 25 18 B/P (MAP) 116/46 (69) 132/75 Pulse Ox 97 98 O2 Delivery Room Air Room Air Blood Pressure Mean: 69 Progress Progress Note #1: Progress Note check labs, urine, blood culture with lactic acid since he has diaphoresis, stents in ureter, tachycardia.. CT scan to evaluate his back pain and ureteral stent. Give IVF for hydration, toradol for pain Progress Note #2: Progress Note Labs show elevated WBC count but lactic acid is ok at 1.97. His renal function is normal. UA shows blood with trace LE. This is understandable with his stent in place. CT scan shows stent in place on left with some stranding around kidneys. Pt reports he is on cipro. urine having culture done so if needs different antib iotic will call him. His prior urine cultures in the system showed Staph Epidermidis and sensitivity showed resistance for levaquin but sensitive to nitrofurantoin so will add macrobid to his cipro he is currently taking. He does feel better and pain resolved with fluids and treatment in the ED Will discharge to home and offer a few pain pills to help until he can see pcp tomorrow as scheduled. Diagnostic Imaging Diagonstic Imaging: CT Plain Films/CT/US/NM/MRI: abdomen, pelvis Comments NAME: [facility] REC#: [id number] PT STATUS: REG ER : 1970 PHYSICIAN: HELENA SOTO MD ADMIT DATE: 08/06/20/ER FS Draft Date of Exam:08/06/20 CT ABD/PELVIS WO(KIDNEY STONE) PROCEDURE: CT urinary tract, rule out kidney stone. TECHNIQUE: Multiple contiguous axial images were obtained through the abdomen and pelvis without the use of intravenous contrast. Auto Exposure Controls were utilized during the CT exam to meet ALARA standards for radiation dose reduction. INDICATION: Low back pain. CORRELATION STUDY: 07/31/2020. FINDINGS: There is moderate motion artifact on this examination. LOWER THORAX: There may be minimal atelectasis. No definitive infiltrate. Heart size is upper limits of normal with trace pericardial effusion. Very small hiatal hernia. LIVER: Unremarkable. GALLBLADDER: Cholecystectomy. No significant bile ductal dilatation. SPLEEN: Unremarkable. PANCREAS: Unremarkable. ADRENAL GLANDS: Unremarkable. KIDNEYS: Several small nonobstructing right renal stones. Slight perinephric stranding. No right-sided ureteric calcification or obstruction. On the left, there is presence of a ureteral stent. The proximal loop over the superior pole with the distal loop projected against the right lateral urinary bladder wall. There is some perinephric and ureteric stranding. The previously noted 12 mm stone has been retracted, now located over the inferior pole. Additional small stones are present. No significant obstruction. ABDOMINAL AORTA: Unremarkable, nonaneurysmal. GASTROINTESTINAL TRACT: Mild amount of retained gastric contents present. No small bowel obstruction. Mild stool within the colon. Normal appendix. No significant ascites and/or free air. URINARY BLADDER: Small amount of gas in the nondependent portion. REPRODUCTIVE: Unremarkable. OSSEOUS STRUCTURES: Advanced multilevel degenerative changes are present in the lower lumbar spine. Slight irregularity sclerosis superior S1 endplate. OTHER: None. IMPRESSION: 1. Interval placement of a left-sided ureteral stent. The previously noted large left ureteral stone has been retracted, now positioned into the inferior pole. No obstruction. There is, however, perinephric and ureteric stranding, component of underlying inflammation/infection not excluded. 2. Nonobstructing right renal stones. Dictated on workstation # [id number] Dict: 08/06/20 1643 Trans: 08/06/20 1704 [facility] [id number] Interpreted by: ALIZE ABBOTT DO Electronically signed by: Reviewed: Reviewed by Me Departure Impression Primary Impression: Lumbar back pain Additional Impressions: Retained ureteral stent Kidney stones Disposition: 01 HOME, SELF-CARE Condition: Stable Departure-Patient Inst. Decision time for Depature: 17:28 Referrals: ÁNGEL CASPER MD (PCP/Family) Primary Care Physician Patient Instructions: Kidney Stone, Adult ED, Low Back Pain ED, Ureteral Stent (DC) Add. Discharge Instructions: Stay well hydrated and drink plenty of water and electrolyte drinks. Continue on your antibiotics to help treat and prevent infection while the stent is in your ureter. Take Macrobid (Nitrofurantoin) as well to get additional coverage for preventing urine infection with stent in place If the urine culture shows you need a different antibiotic you will get a call in 2-3 days when that comes back. Keep your appointment with Dr. Casper tomorrow for follow up and try the pain medicine to help with back pain in the meantime. All discharge instructions reviewed with patient and/or family. Voiced understanding. Scripts Hydrocodone/Acetaminophen (Hydrocodone-Acetamin 5-325 mg) 1 Each Tablet 1 TAB PO Q6H PRN for PAIN-SEVERE (8-10) for 3 Days, #12 TAB 0 Refills Prov: HELENA SOTO MD 08/06/20 Nitrofurantoin Monohyd/M-Cryst (Macrobid 100 mg Capsule) 100 Mg Capsule 1 TAB PO BID for 10 Days, #20 CAP 0 Refills Prov: HELENA SOTO MD 08/06/20 HELENA SOTO MD Aug 06, 2020 16:03
[2020-08-06 16:27] LABS: BASOPHILS # (AUTO) 0.1 10^3/uL (0.0-0.1); BASOPHILS % (AUTO) 1 % (0-10); EOSINOPHILS # (AUTO) 0.2 10^3/uL (0.0-0.3); EOSINOPHILS % (AUTO) 1 % (0-10); HEMATOCRIT 42 % (40-54); HEMOGLOBIN 13.8 G/DL (13.3-17.7); LYMPHOCYTES # (AUTO) 3.3 X 10^3 (1.0-4.0); LYMPHOCYTES % (AUTO) 21 % (12-44); MEAN CORPUSCULAR HEMOGLOBIN 31 PG (25-34); MEAN CORPUSCULAR HGB CONC 33 G/DL (32-36); MEAN CORPUSCULAR VOLUME 92 FL (80-99); MEAN PLATELET VOLUME 10.2 FL (7.4-10.4); MONOCYTES # (AUTO) 1.2 X 10^3 (0.0-1.0); MONOCYTES % (AUTO) 8 % (0-12); NEUTROPHILS # (AUTO) 10.2 X 10^3 (1.8-7.8); NEUTROPHILS % (AUTO) 66 % (42-75); PLATELET COUNT 354 10^3/uL (130-400); WHITE BLOOD COUNT 15.4 10^3/uL (4.3-11.0)
[2020-08-06 16:49] LABS: ALKALINE PHOSPHATASE 91 U/L (40-136); BILIRUBIN,TOTAL 0.4 MG/DL (0.1-1.0); BUN/CREATININE RATIO 7; CALCIUM 9.5 MG/DL (8.5-10.1); CARBON DIOXIDE 22 MMOL/L (21-32); CHLORIDE 107 MMOL/L (98-107); CREATININE SERUM 1.19 MG/DL (0.60-1.30); GFR ESTIMATED > 60; GLUCOSE 72 MG/DL (70-105); POTASSIUM 3.3 MMOL/L (3.6-5.0); SODIUM 141 MMOL/L (135-145)
[2020-08-06 16:50] LABS: ALANINE AMINOTRANSFERASE 31 U/L (0-55); ALBUMIN 3.5 GM/DL (3.2-4.5); EOSINOPHILS % (MANUAL) 1 %; LYMPHOCYTES % (MANUAL) 14 %; MONOCYTES % (MANUAL) 13 %; NEUTROPHILS % (MANUAL) 72 %
[2020-08-06 16:52] LABS: BILIRUBIN,URINE NEGATIVE (NEGATIVE); CLARITY,URINE CLEAR; COLOR,URINE YELLOW; GLUCOSE, URINE (UA) NEGATIVE (NEGATIVE); KETONES,URINE NEGATIVE (NEGATIVE); LEUKOCYTE ESTERASE ,URINE TRACE (NEGATIVE); NITRITE,URINE NEGATIVE (NEGATIVE); PROTEIN,URINE TRACE (NEGATIVE)
[2020-08-06 16:57] LABS: BACTERIA,URINE FEW /HPF; RBC,URINE >100 /HPF
--- NOTE | 2020-08-06 17:04 | Diagnostic Imaging Report ---
PROCEDURE: CT urinary tract, rule out kidney stone. TECHNIQUE: Multiple contiguous axial images were obtained through the abdomen and pelvis without the use of intravenous contrast. Auto Exposure Controls were utilized during the CT exam to meet ALARA standards for radiation dose reduction. INDICATION: Low back pain. CORRELATION STUDY: 07/31/2020. FINDINGS: There is moderate motion artifact on this examination. LOWER THORAX: There may be minimal atelectasis. No definitive infiltrate. Heart size is upper limits of normal with trace pericardial effusion. Very small hiatal hernia. LIVER: Unremarkable. GALLBLADDER: Cholecystectomy. No significant bile ductal dilatation. SPLEEN: Unremarkable. PANCREAS: Unremarkable. ADRENAL GLANDS: Unremarkable. KIDNEYS: Several small nonobstructing right renal stones. Slight perinephric stranding. No right-sided ureteric calcification or obstruction. On the left, there is presence of a ureteral stent. The proximal loop over the superior pole with the distal loop projected against the right lateral urinary bladder wall. There is some perinephric and ureteric stranding. The previously noted 12 mm stone has been retracted, now located over the inferior pole. Additional small stones are present. No significant obstruction. ABDOMINAL AORTA: Unremarkable, nonaneurysmal. GASTROINTESTINAL TRACT: Mild amount of retained gastric contents present. No small bowel obstruction. Mild stool within the colon. Normal appendix. No significant ascites and/or free air. URINARY BLADDER: Small amount of gas in the nondependent portion. REPRODUCTIVE: Unremarkable. OSSEOUS STRUCTURES: Advanced multilevel degenerative changes are present in the lower lumbar spine. Slight irregularity sclerosis superior S1 endplate. OTHER: None. IMPRESSION: 1. Interval placement of a left-sided ureteral stent. The previously noted large left ureteral stone has been retracted, now positioned into the inferior pole. No obstruction. There is, however, perinephric and ureteric stranding, component of underlying inflammation/infection not excluded. 2. Nonobstructing right renal stones. Dictated by: Dictated on workstation # [id number]
[2020-08-06 17:28] VITALS: BP 132/75
[2020-08-06] MEDS ORDERED: ACHD5005 PO (17:29)
[2020-08-06] MEDS ORDERED: NITR-65 PO (17:29)
== END 2020-08-06 17:33 | disposition home or self-care (01) ==
LOC: EDUNIT# 15:37 → ER FS 15:38
DX: N20.0 Calculus of kidney (principal); J44.9 Chronic obstructive pulmonary disease, unspecified; E78.00 Pure hypercholesterolemia, unspecified; I10 Essential (primary) hypertension; K21.9 Gastro-esophageal reflux disease without esophagitis; F41.9 Anxiety disorder, unspecified; E66.9 Obesity, unspecified; F31.9 Bipolar disorder, unspecified; E11.9 Type 2 diabetes mellitus without complications; F17.210 Nicotine dependence, cigarettes, uncomplicated; Z79.82 Long term (current) use of aspirin; Z79.899 Other long term (current) drug therapy; Z68.45 Body mass index [BMI] 70 or greater, adult
CPT/HCPCS: 36415; 74176; 80053; 81000; 83605; 85007; 85027; 86141; 87040; 87088

== ENCOUNTER 2020-08-09 20:33 | Emergency (ER) | payer MEDICAID ==
[~2020-08-09] VITALS: Ht 180.3 cm; Wt 163.2 kg
[2020-08-09] MEDS ORDERED: morphine INJ 10 MG/ML 1ML (SYR OR VIAL) IVP STA (21:36)
--- NOTE | 2020-08-09 21:39 | ED Back Pain ---
General Chief Complaint: Back Problems Stated Complaint: BACK PAIN Source of Information: Patient Exam Limitations: No Limitations (SETH ROCKWELL MED STUDENT) History of Present Illness Date Seen by Provider: Aug 09, 2020 Time Seen by Provider: 21:10 Initial Comments Mr. Forte is a 49 yo male that presents today for lower back pain. He states that the back pain has been going on for a while now. After getting a stent for a kidney stone he noticed the pain was a lot worse. He was recently in the ER in [place] for similar back pain a couple of days ago. He had a workup that included labs and imaging. He was sent home with pain medication and saw Dr. Casper the next day, who prescribed him pain medication and another antibiotic. He states that the pain is still not controlled and it is worse today so he decided to come to the ER. His pain is located in the middle lumbar region. He states it is harder for him to walk, but he is able to. No loss of bladder or bowel control or numbness. Location: Lumbar Spine Timing/Duration: 5-6 Days Severity: Moderate Pain/Injury Location: Back Associated Symptoms: No fever, No weakness, No numbness in legs/feet, No tingling in legs/feet, No sensory/motor loss; lower back pain; No loss of bladder control, No loss of bowel control (SETH ROCKWELL MED STUDENT) Allergies and Home Medications Allergies Coded Allergies: No Known Drug Allergies (Unverified , 12/21/17) Home Medications Acetaminophen 500 Mg Tablet, 1,000 MG PO Q4H PRN for PAIN-MILD (1-4), (Reported) Allopurinol 100 Mg Tablet, 100 MG PO DAILY, (Reported) Aripiprazole 30 Mg Tablet, 30 MG PO DAILY, (Reported) Aspirin 81 Mg Tablet.dr, 81 MG PO DAILY, (Reported) Atorvastatin Calcium 40 Mg Tablet, 40 MG PO HS, (Reported) Cefuroxime Axetil 500 Mg Tablet, 500 MG PO BID Prescribed by: LOGAN SNELL on 07/20/202143 Cephalexin 500 Mg Tablet, 500 MG PO TID Prescribed by: RUDY MEREDITH on 05/20/20 0438 Duloxetine HCl 30 Mg Capsule.dr, 30 MG PO DAILY, (Reported) TAKES 30MG + 60MG TOGETHER TO EQUAL 90MG DAILY Duloxetine HCl 60 Mg Capsule.dr, 60 MG PO DAILY, (Reported) TAKES 30MG + 60MG TOGETHER TO EQUAL 90MG DAILY Famotidine 20 Mg Tablet, 20 MG PO DAILY, (Reported) Fenofibrate Nanocrystallized 145 Mg Tablet, 145 MG PO DAILY, (Reported) Gabapentin 600 Mg Tablet, 600 MG PO TID, (Reported) Glimepiride 2 Mg Tablet, 2 MG PO DAILY, (Reported) Hydrocodone/Acetaminophen 1 Each Tablet, 1 TAB PO Q4H PRN for PAIN-MODERATE (5- 7) Prescribed by: LOGAN SNELL on 07/20/20 2145 Hydrocodone/Acetaminophen 1 Each Tablet, 1 TAB PO Q6H PRN for PAIN-SEVERE (8-10) Prescribed by: HELENA SOTO on 08/06/20 1730 Lisinopril 10 Mg Tablet, 10 MG PO DAILY, (Reported) Mesalamine 1.2 Gm Tablet.dr, 4.8 GM PO DAILY, (Reported) TAKES 4 (1.2GM) TABLETS Metoprolol Tartrate 25 Mg Tablet, 25 MG PO BID, (Reported) Multivitamin 1 Each Tablet, 1 TAB PO DAILY, (Reported) Nifedipine 60 Mg Tablet.er, 60 MG PO DAILY, (Reported) Nitrofurantoin Monohyd/M-Cryst 100 Mg Capsule, 1 TAB PO BID Prescribed by: HELENA SOTO on 08/06/20 1729 [place]-3 Acid Ethyl Esters 1 Gm Capsule, 2 GM PO BID, (Reported) TAKES 2 (1GM) CAPSULES Omeprazole 40 Mg Capsule.dr, 40 MG PO HS, (Reported) Potassium Chloride 20 Meq Tab.er.prt, 40 MEQ PO BID, (Reported) TAKES 2 (20MEQ) TABS Ropinirole HCl 5 Mg Tablet, 5 MG PO TID, (Reported) Sodium Bicarbonate 650 Mg Tablet, 1,300 MG PO BID, (Reported) TAKES 2 (650MG) TABS Solifenacin Succinate 5 Mg Tablet, 5 MG PO DAILY, (Reported) Sucralfate 1 Gm Tablet, 1 GM PO BID WITH MEALS, (Reported) Tamsulosin HCl 0.4 Mg Cap, 0.4 MG PO HS, (Reported) Testosterone Cypionate 200 Mg/1 Ml Vial, 1 ML IM EVERY 2 WEEKS, (Reported) Topiramate 200 Mg Tablet, 200 MG PO BID, (Reported) Patient Home Medication List Home Medication List Reviewed: Yes (MOIZ,SETH MED STUDENT) Review of Systems Constitutional: No chills, No fever EENTM: No vision loss Respiratory: No cough; short of breath (Chronic) Cardiovascular: No chest pain, No edema, No palpitations Gastrointestinal: abdominal pain (RLQ, mild); No constipation, No diarrhea, No nausea, No vomiting Genitourinary: No dysuria, No frequency, No hematuria, No incontinence Musculoskeletal: back pain (Midline lumbar) Skin: No rash Psychiatric/Neurological: Denies Headache (SETH ROCKWELL) Past Afotnxu-Zaenrf-Potrip Hx Patient Social History Alcohol Beverage of Choice: Beer Drug of Choice: marijuana Type Used: Cigarettes Former Smoker, Quit: Jun 04, 2017 2nd Hand Smoke Exposure: Yes Recent Hopitalizations: No (SETH ROCKWELL) Immunizations Up To Date Tetanus Booster (TDap): Unknown PED Vaccines UTD: No Date of Pneumonia Vaccine: May 22, 2016 Date of Influenza Vaccine: Nov 12, 2019 (SETH ROCKWELL) Seasonal Allergies Seasonal Allergies: No (SETH ROCKWELL) Past Medical History Surgeries: Yes Gallbladder, Orthopedic Respiratory: Yes COPD Currently Using CPAP: No Currently Using BIPAP: No Cardiac: Yes High Cholesterol, Hypertension Neurological: No Reproductive Disorders: No Sexually Transmitted Disease: No HIV/AIDS: No Genitourinary: Yes Kidney Stones, Renal Failure Gastrointestinal: Yes Colitis, Gastroesophageal Reflux, Gall Bladder Disease Musculoskeletal: Yes Arthritis Endocrine: Yes Diabetes, Non-Insulin dep HEENT: Yes Cancer: No Psychosocial: Yes (BIPOLAR, POLYSUBSTANCE ABUSE) Anxiety, Bipolar, Depression Integumentary: No Blood Disorders: No Adverse Reaction/Blood Tranf: No (SETH ROCKWELL) Family Medical History Completed stroke DVT 19 MOTHER, , Onset:Unknown Diabetes mellitus 19 MOTHER, , Onset:Unknown G8 BROTHER, Onset:Unknown FH: gastric ulcer 19 FATHER, Onset:Unknown DVT/PE, Diabetes, GI Disease (SETH ROCKWELL STUDENT) Physical Exam Vital Signs Vital Signs - First Documented 08/09/20 20:36 Temp 37.1 Pulse 116 Resp 22 B/P (MAP) 143/90 (107) Pulse Ox 96 O2 Delivery Room Air (RUDY BARRETO MD) Vital Signs Capillary Refill : (SETH ROCKWELL MED STUDENT) Height, Weight, BMI Height: 5'10.00" Weight: 330lbs. 3.0oz. [id number]; 332.00 BMI Method:Stated General Appearance: Mild Distress, Obese Cardiovascular: Regular Rate, Rhythm, No Edema, No Murmur, Normal Peripheral Pulses Respiratory: Chest Non Tender, Lungs Clear, Normal Breath Sounds, No Accessory Muscle Use, No Respiratory Distress Peripheral Pulses: 2+ Radial Pulses (R), 2+ Radial Pulses (L) Gastrointestinal: Normal Bowel Sounds (Slightly tympanic), No Organomegaly, No Pulsatile Mass, Soft; No Guarding; Tenderness (mild at LRQ) Extremity: No Calf Tenderness, No Pedal Edema Neurologic/Psychiatric: Alert, Oriented x3, Normal Mood/Affect Skin: Normal Color, Warm/Dry (SETH ROCKWELL MED STUDENT) Progress/Results/Core Measures Results/Orders Lab Results Laboratory Tests Test 08/09/20 21:54 Range/Units Urine Color YELLOW Urine Clarity CLEAR Urine pH 7.0 5-9 Urine Specific [place] 1.015 L 1.016-1.022 Urine Protein 1+ H NEGATIVE Urine Glucose (UA) NEGATIVE NEGATIVE Urine Ketones NEGATIVE NEGATIVE Urine Nitrite NEGATIVE NEGATIVE Urine Bilirubin NEGATIVE NEGATIVE Urine Urobilinogen 0.2 < = 1.0 MG/DL Urine Leukocyte Esterase NEGATIVE NEGATIVE Urine RBC (Auto) TRACE-I NEGATIVE Urine RBC 5-10 H /HPF Urine WBC 0-2 /HPF Urine Squamous Epithelial Cells 0-2 /HPF Urine Crystals NONE /LPF Urine Bacteria NEGATIVE /HPF Urine Casts NONE /LPF Urine Mucus NEGATIVE /LPF Urine Culture Indicated NO (RUDY BARRETO MD) My Orders Orders - RUDY BARRETO MD Ua Culture If Indicated (08/09/20 21:01) Morphine Injection (Morphine Injection (08/09/20 21:36) Orphenadrine Inj (Ed Only) (Norflex Inje (08/09/20 21:45) Ketorolac Injection (Toradol Injection) (08/09/20 22:45) Oxycodone/Apap 5/325mg Tablet (Percocet (08/09/20 22:45) (RUDY BARRETO MD) Medications Given in ED Current Medications Medications Dose Ordered Sig/Saba Route Start Time Stop Time Status Last Admin Dose Admin Ketorolac Tromethamine 15 mg ONCE ONCE IVP 08/09/20 22:45 08/09/20 22:46 DC 08/09/20 22:48 15 MG Orphenadrine Citrate 60 mg ONCE ONCE IV 08/09/20 21:45 08/09/20 21:46 DC 08/09/20 21:52 60 MG Oxycodone/ Acetaminophen 2 tab ONCE ONCE PO 08/09/20 22:45 08/09/20 22:46 DC 08/09/20 22:48 2 TAB (RUDY BARRETO MD) Vital Signs/I&O 08/09/20 20:36 Temp 37.1 Pulse 116 Resp 22 B/P (MAP) 143/90 (107) Pulse Ox 96 O2 Delivery Room Air (RUDY BARRETO MD) Departure Impression Primary Impression: Lumbar back pain with radiculopathy affecting right lower extremity Disposition: 01 HOME, SELF-CARE Condition: Improved Departure-Patient Inst. Decision time for Depature: 23:50 (RUDY BARRETO MD) Referrals: ÁNGEL CASPER MD (PCP/Family) Primary Care Physician Patient Instructions: Low Back Pain in Adults, Radiculopathy (DC) Add. Discharge Instructions: You may increase your Percocet to 2 tablets every 4 hours if needed for better control of your pain. Please call Dr. Casper in the morning and let him know you are in the emergency room with uncontrolled pain and you are instructed to change your dosing. Return to care if you have worsening symptoms, especially if you develop true weakness in your legs, numbness in your groin, or difficulty controlling bowels or bladder. Return to the ER immediately if you notice these symptoms. Follow-up with Dr. Castro on you soon as possible. You may need further evaluation or treatment for your back pain such as physical therapy, MRI, etc. Call with questions or concerns. All discharge instructions reviewed with patient and/or family. Voiced understanding. SETH ROCKWELL MED STUDENT Aug 09, 2020 21:38 RUDY BARRETO MD Aug 09, 2020 23:52
[2020-08-09] MEDS ORDERED: ORPHENADRINE 60 MG/2 ML (NORFLEX) AMP (ED ONLY) IV ONE (21:45)
[2020-08-09 22:00] LABS: BILIRUBIN,URINE NEGATIVE (NEGATIVE); CLARITY,URINE CLEAR; COLOR,URINE YELLOW; GLUCOSE, URINE (UA) NEGATIVE (NEGATIVE); KETONES,URINE NEGATIVE (NEGATIVE); LEUKOCYTE ESTERASE ,URINE NEGATIVE (NEGATIVE); NITRITE,URINE NEGATIVE (NEGATIVE); PROTEIN,URINE 1+ (NEGATIVE)
[2020-08-09 22:09] LABS: WBC,URINE 0-2 /HPF
[2020-08-09 22:10] LABS: BACTERIA,URINE NEGATIVE /HPF; SQUAMOUS EPITHELIAL CELL,UR 0-2 /HPF
[2020-08-09] MEDS ORDERED: oxyCODONE/APAP 5/325MG (PERCOCET 5) TABLET ONE (22:44)
[2020-08-09] MEDS ORDERED: KETOROLAC 30 MG/ML VIAL IVP ONE (22:45)
[2020-08-09] MEDS ORDERED: oxyCODONE/APAP 5/325MG (PERCOCET 5) TABLET PO ONE (22:45)
[2020-08-10 00:16] VITALS: BP 149/93
== END 2020-08-10 00:21 | disposition home or self-care (01) ==
LOC: EDUNIT# 20:33 → ER 20:34
DX: M54.16 Radiculopathy, lumbar region (principal); I10 Essential (primary) hypertension; E11.9 Type 2 diabetes mellitus without complications; J44.9 Chronic obstructive pulmonary disease, unspecified; F41.9 Anxiety disorder, unspecified; F31.9 Bipolar disorder, unspecified; K21.9 Gastro-esophageal reflux disease without esophagitis; E78.00 Pure hypercholesterolemia, unspecified; Z87.891 Personal history of nicotine dependence; Z77.22 Contact with and (suspected) exposure to environmental tobacco smoke (acute) (chronic); Z79.84 Long term (current) use of oral hypoglycemic drugs; Z79.899 Other long term (current) drug therapy
CPT/HCPCS: 81000; 99283

== ENCOUNTER 2020-08-12 13:38 | Emergency (ER) | payer MEDICAID ==
[~2020-08-12] VITALS: Ht 177.8 cm; Wt 163.3 kg
[2020-08-12] MEDS ORDERED: NS IV 1000 ML 1,000 ML IV SCH (13:45)
--- NOTE | 2020-08-12 13:52 | ED Back Pain ---
General Chief Complaint: Back Problems Stated Complaint: BACK PAIN Source of Information: Patient Exam Limitations: No Limitations History of Present Illness Date Seen by Provider: Aug 12, 2020 Time Seen by Provider: 13:36 Initial Comments Patient presents ER by EMS from home with chief complaint of back pain for the past 3 or 4 days. Midline low back at the site of his previous lumbar surgery. He has no no falls or recent trauma. He does however have a couple stents and missed his last follow-up appointment with urology. He had the stents placed secondary to kidney stones. He has been using ibuprofen 800 mg every 6 hours [id number] with modest relief of pain. He rates it as 8 out of 10, sharp nonradiating with muscle spasms around his low back. He is not having any pain at his flanks or costovertebral angles. Allergies and Home Medications Allergies Coded Allergies: No Known Drug Allergies (Unverified , 12/21/17) Home Medications Acetaminophen 500 Mg Tablet, 1,000 MG PO Q4H PRN for PAIN-MILD (1-4), (Reported) Allopurinol 100 Mg Tablet, 100 MG PO DAILY, (Reported) Aripiprazole 30 Mg Tablet, 30 MG PO DAILY, (Reported) Aspirin 81 Mg Tablet.dr, 81 MG PO DAILY, (Reported) Atorvastatin Calcium 40 Mg Tablet, 40 MG PO HS, (Reported) Cefuroxime Axetil 500 Mg Tablet, 500 MG PO BID Prescribed by: LOGAN SNELL on 07/20/202143 Cephalexin 500 Mg Tablet, 500 MG PO TID Prescribed by: RUDY MEREDITH on 05/20/20 0438 Duloxetine HCl 30 Mg Capsule.dr, 30 MG PO DAILY, (Reported) TAKES 30MG + 60MG TOGETHER TO EQUAL 90MG DAILY Duloxetine HCl 60 Mg Capsule.dr, 60 MG PO DAILY, (Reported) TAKES 30MG + 60MG TOGETHER TO EQUAL 90MG DAILY Famotidine 20 Mg Tablet, 20 MG PO DAILY, (Reported) Fenofibrate Nanocrystallized 145 Mg Tablet, 145 MG PO DAILY, (Reported) Gabapentin 600 Mg Tablet, 600 MG PO TID, (Reported) Glimepiride 2 Mg Tablet, 2 MG PO DAILY, (Reported) Hydrocodone/Acetaminophen 1 Each Tablet, 1 TAB PO Q4H PRN for PAIN-MODERATE (5- 7) Prescribed by: LOGAN SNELL on 5/20/21 2145 Hydrocodone/Acetaminophen 1 Each Tablet, 1 TAB PO Q6H PRN for PAIN-SEVERE (8-10) Prescribed by: HELENA SOTO on 08/06/20 1730 Lisinopril 10 Mg Tablet, 10 MG PO DAILY, (Reported) Mesalamine 1.2 Gm Tablet.dr, 4.8 GM PO DAILY, (Reported) TAKES 4 (1.2GM) TABLETS Metoprolol Tartrate 25 Mg Tablet, 25 MG PO BID, (Reported) Multivitamin 1 Each Tablet, 1 TAB PO DAILY, (Reported) Nifedipine 60 Mg Tablet.er, 60 MG PO DAILY, (Reported) Nitrofurantoin Monohyd/M-Cryst 100 Mg Capsule, 1 TAB PO BID Prescribed by: HELENA SOTO on 08/06/20 1729 [place]-3 Acid Ethyl Esters 1 Gm Capsule, 2 GM PO BID, (Reported) TAKES 2 (1GM) CAPSULES Omeprazole 40 Mg Capsule.dr, 40 MG PO HS, (Reported) Potassium Chloride 20 Meq Tab.er.prt, 40 MEQ PO BID, (Reported) TAKES 2 (20MEQ) TABS Ropinirole HCl 5 Mg Tablet, 5 MG PO TID, (Reported) Sodium Bicarbonate 650 Mg Tablet, 1,300 MG PO BID, (Reported) TAKES 2 (650MG) TABS Solifenacin Succinate 5 Mg Tablet, 5 MG PO DAILY, (Reported) Sucralfate 1 Gm Tablet, 1 GM PO BID WITH MEALS, (Reported) Tamsulosin HCl 0.4 Mg Cap, 0.4 MG PO HS, (Reported) Testosterone Cypionate 200 Mg/1 Ml Vial, 1 ML IM EVERY 2 WEEKS, (Reported) Topiramate 200 Mg Tablet, 200 MG PO BID, (Reported) Patient Home Medication List Home Medication List Reviewed: Yes Review of Systems Constitutional: No chills, No diaphoresis EENTM: No ear discharge, No hearing loss, No ear pain Respiratory: No cough, No short of breath Cardiovascular: No chest pain, No palpitations Gastrointestinal: No abdominal pain, No nausea, No vomiting Genitourinary: No discharge, No dysuria; hematuria (Less than usual) Musculoskeletal: back pain (Lumbar); No joint pain All Other Systems Reviewed Negative Unless Noted: Yes Past Zmrfccx-Ikuuev-Nqmaca Hx Patient Social History Alcohol Use: Regular Use Alcohol Beverage of Choice: Beer Drug of Choice: marijuana Smoking Status: Former Smoker Type Used: Cigarettes Former Smoker, Quit: Jun 04, 2017 2nd Hand Smoke Exposure: Yes Recent Hopitalizations: No Immunizations Up To Date Tetanus Booster (TDap): Unknown PED Vaccines UTD: No Date of Pneumonia Vaccine: May 22, 2016 Date of Influenza Vaccine: Nov 12, 2019 Seasonal Allergies Seasonal Allergies: No Past Medical History Surgeries: Yes Gallbladder, Orthopedic Respiratory: Yes COPD Currently Using CPAP: No Currently Using BIPAP: No Cardiac: Yes High Cholesterol, Hypertension Neurological: No Reproductive Disorders: No Sexually Transmitted Disease: No HIV/AIDS: No Genitourinary: Yes (RENAL STENTS) Kidney Stones, Renal Failure Gastrointestinal: Yes Colitis, Gastroesophageal Reflux, Gall Bladder Disease Musculoskeletal: Yes (BACK SX 2003) Arthritis Endocrine: Yes Diabetes, Non-Insulin dep HEENT: Yes Cancer: No Psychosocial: Yes (BIPOLAR, POLYSUBSTANCE ABUSE) Anxiety, Bipolar, Depression Integumentary: No Blood Disorders: No Adverse Reaction/Blood Tranf: No Family Medical History Completed stroke DVT 19 MOTHER, , Onset:Unknown Diabetes mellitus 19 MOTHER, , Onset:Unknown G8 BROTHER, Onset:Unknown FH: gastric ulcer 19 FATHER, Onset:Unknown DVT/PE, Diabetes, GI Disease Physical Exam Vital Signs Vital Signs - First Documented 08/12/20 13:39 Temp 35.4 Pulse 119 Resp 20 B/P (MAP) 126/105 (112) Pulse Ox 98 Capillary Refill : Height, Weight, BMI Height: 5'10.00" Weight: 330lbs. 3.0oz. 149.696171na; 50.00 BMI Method:Stated General Appearance: Mild Distress, Obese HEENT: PERRL/EOMI, Pharynx Normal, Moist Mucous Membranes Neck: Full Range of Motion, Normal Inspection Cardiovascular: No Edema, Normal Peripheral Pulses Respiratory: No Accessory Muscle Use, No Respiratory Distress Peripheral Pulses: 2+ Radial Pulses (R), 2+ Radial Pulses (L) Back: Normal Inspection, No CVA Tenderness, Vertebral Tenderness (L2-L5 midline without deformity or step-off) Extremity: Normal Capillary Refill, Normal Range of Motion Neurologic/Psychiatric: Alert, Oriented x3, No Motor/Sensory Deficits Skin: Normal Color, Warm/Dry, Other (Well-healed surgical scar over the lumbar spine) Progress/Results/Core Measures Results/Orders Lab Results Laboratory Tests Test 08/12/20 13:51 6/12/21 15:12 Range/Units White Blood Count 12.3 H 4.3-11.0 10^3/uL Red Blood Count 4.77 4.30-5.52 10^6/uL Hemoglobin 14.4 13.3-17.7 g/dL Hematocrit 44 40-54 % Mean Corpuscular Volume 92 80-99 fL Mean Corpuscular Hemoglobin 30 25-34 pg Mean Corpuscular Hemoglobin Concent 33 32-36 g/dL Red Cell Distribution Width 13.7 10.0-14.5 % Platelet Count 325 130-400 10^3/uL Mean Platelet Volume 9.4 9.0-12.2 fL Immature Granulocyte % (Auto) 1 % Neutrophils (%) (Auto) 79 H 42-75 % Lymphocytes (%) (Auto) 13 12-44 % Monocytes (%) (Auto) 6 0-12 % Eosinophils (%) (Auto) 1 0-10 % Basophils (%) (Auto) 0 0-10 % Neutrophils # (Auto) 9.7 H 1.8-7.8 10^3/uL Lymphocytes # (Auto) 1.6 1.0-4.0 10^3/uL Monocytes # (Auto) 0.8 0.0-1.0 10^3/uL Eosinophils # (Auto) 0.1 0.0-0.3 10^3/uL Basophils # (Auto) 0.1 0.0-0.1 10^3/uL Immature Granulocyte # (Auto) 0.1 0.0-0.1 10^3/uL Sodium Level 136 135-145 MMOL/L Potassium Level 4.2 3.6-5.0 MMOL/L Chloride Level 100 98-107 MMOL/L Carbon Dioxide Level 20 L 21-32 MMOL/L Anion Gap 16 H 5-14 MMOL/L Blood Urea Nitrogen 12 7-18 MG/DL Creatinine 1.19 0.60-1.30 MG/DL Estimat Glomerular Filtration Rate > 60 BUN/Creatinine Ratio 10 Glucose Level 120 H 70-105 MG/DL Calcium Level 10.4 H 8.5-10.1 MG/DL Corrected Calcium 10.4 H 8.5-10.1 MG/DL Total Bilirubin 0.5 0.1-1.0 MG/DL Aspartate Amino Transf (AST/SGOT) 20 5-34 U/L Alanine Aminotransferase (ALT/SGPT) 20 0-55 U/L Alkaline Phosphatase 82 40-136 U/L C-Reactive Protein High Sensitivity 8.49 H 0.00-0.50 MG/DL Total Protein 8.2 6.4-8.2 GM/DL Albumin 4.0 3.2-4.5 GM/DL Urine Color YELLOW Urine Clarity CLEAR Urine pH 6.0 5-9 Urine Specific [place] 1.010 L 1.016-1.022 Urine Protein 1+ H NEGATIVE Urine Glucose (UA) NEGATIVE NEGATIVE Urine Ketones NEGATIVE NEGATIVE Urine Nitrite NEGATIVE NEGATIVE Urine Bilirubin NEGATIVE NEGATIVE Urine Urobilinogen 0.2 < = 1.0 MG/DL Urine Leukocyte Esterase NEGATIVE NEGATIVE Urine RBC (Auto) 3+ H NEGATIVE Urine RBC 2-5 H /HPF Urine WBC RARE /HPF Urine Squamous Epithelial Cells 0-2 /HPF Urine Crystals NONE /LPF Urine Bacteria TRACE /HPF Urine Casts NONE /LPF Urine Mucus NEGATIVE /LPF Urine Culture Indicated NO My Orders Orders - SALTY MENDEZ Cbc With Automated Diff (08/12/20 13:44) Comprehensive Metabolic Panel (08/12/20 13:44) Hs C Reactive Protein (08/12/20 13:44) Ua Culture If Indicated (08/12/20 13:44) Ed Iv/Invasive Line Start (08/12/20 13:44) Ns Iv 1000 Ml (Sodium Chloride 0.9%) (08/12/20 13:45) Ct Thoracic/Lumbar Spine Wo (08/12/20 13:44) Vital Signs/I&O 08/12/20 13:39 Temp 35.4 Pulse 119 Resp 20 B/P (MAP) 126/105 (112) Pulse Ox 98 Progress Progress Note : Time: 13:54 Progress Note This appears to be related to organic back pain from the lumbar or thoracic spine. Plan to get a CT to rule out compression fracture or other pathology. Diagnostic Imaging Diagonstic Imaging: CT Plain Films/CT/US/NM/MRI: other (Thoracolumbar spine) Comments [facility] [place], [place] NAME: DREW HILL [facility] REC#: [id number] PT STATUS: REG ER : 1970 PHYSICIAN: SALTY MENDEZ MD ADMIT DATE: 08/12/20/ER Signed Date of Exam:08/12/20 CT THORACIC/LUMBAR SPINE WO PROCEDURE: CT thoracic and lumbar spine without contrast. TECHNIQUE: Multiple contiguous axial images were obtained through the thoracic and lumbar spine without the use of intravenous contrast. Sagittal and coronal reformations were then performed. All CT scans use one or more of the following dose optimizing techniques: automated exposure control, MA and/or KvP adjustment based on a patient size and exam type, or iterative reconstruction. INDICATION: Low back pain. COMPARISON: 08/06/2020. FINDINGS: No acute fracture or dislocation is seen in the thoracic and lumbar spine. No suspicious focal osseous lesions. No evidence of acute spinal canal stenosis. Endplate degenerative changes are present at the L4-L5 and L5-S1 levels. No high density material is seen within the spinal canal. The included pelvis demonstrates no acute abnormalities. The included lungs are clear. The soft tissues of the thoracic spine demonstrate no acute abnormalities. IMPRESSION: 1. No acute fracture or dislocation in the thoracic and lumbar spine. No evidence of acute spinal canal stenosis. Dictated by: Dictated on workstation # [id number] Dict: 08/12/20 1422 Trans: 08/12/20 1430 BANNER [id number] Interpreted by: ANNE TAY DO Electronically signed by: ANNE TAY DO 08/12/20 1430 Reviewed: Reviewed by Me Departure Impression Primary Impression: Lumbago Qualified Codes: M54.5 - Low back pain; G89.29 - Other chronic pain Disposition: 01 HOME, SELF-CARE Condition: Stable Departure-Patient Inst. Decision time for Depature: 16:43 Referrals: ÁNGLE CASPER MD (PCP/Family) Primary Care Physician Patient Instructions: Low Back Pain (DC) Add. Discharge Instructions: Heating pads, topical creams such as icy hot or Biofreeze, Tylenol 650 mg every 8 hours as necessary for pain. Ibuprofen 800 mg every 8 hours as necessary for pain. Hydrocodone 1 tablet every 6 hours as necessary for severe breakthrough pain. Call your primary care doctor and discuss pain management techniques or possibly referral to a roof cement and paint maker helper. All discharge instructions reviewed with patient and/or family. Voiced understanding. Scripts Hydrocodone/Acetaminophen (Hydrocodone-Acetamin 5-325 mg) 1 Each Tablet 1 TAB PO Q6H PRN for PAIN-MODERATE (5-7), #10 TAB 0 Refills Prov: SALTY MENDEZ 08/12/20 Copy Copies To 1: LUCIO SERVIN TITUS J Aug 12, 2020 13:52
[2020-08-12 13:58] LABS: BASOPHILS # (AUTO) 0.1 10^3/uL (0.0-0.1); BASOPHILS % (AUTO) 0 % (0-10); EOSINOPHILS # (AUTO) 0.1 10^3/uL (0.0-0.3); EOSINOPHILS % (AUTO) 1 % (0-10); HEMATOCRIT 44 % (40-54); HEMOGLOBIN 14.4 g/dL (13.3-17.7); LYMPHOCYTES # (AUTO) 1.6 10^3/uL (1.0-4.0); LYMPHOCYTES % (AUTO) 13 % (12-44); MEAN CORPUSCULAR HEMOGLOBIN 30 pg (25-34); MEAN CORPUSCULAR HGB CONC 33 g/dL (32-36); MEAN CORPUSCULAR VOLUME 92 fL (80-99); MEAN PLATELET VOLUME 9.4 fL (9.0-12.2); MONOCYTES # (AUTO) 0.8 10^3/uL (0.0-1.0); MONOCYTES % (AUTO) 6 % (0-12); NEUTROPHILS # (AUTO) 9.7 10^3/uL (1.8-7.8); NEUTROPHILS % (AUTO) 79 % (42-75); PLATELET COUNT 325 10^3/uL (130-400); WHITE BLOOD COUNT 12.3 10^3/uL (4.3-11.0)
[2020-08-12 14:09] LABS: CHLORIDE 100 MMOL/L (98-107); POTASSIUM 4.2 MMOL/L (3.6-5.0); SODIUM 136 MMOL/L (135-145)
[2020-08-12 14:10] LABS: CALCIUM 10.4 MG/DL (8.5-10.1)
[2020-08-12 14:11] LABS: GLUCOSE 120 MG/DL (70-105); TOTAL PROTEIN 8.2 GM/DL (6.4-8.2)
[2020-08-12 14:13] LABS: BILIRUBIN,TOTAL 0.5 MG/DL (0.1-1.0); CARBON DIOXIDE 20 MMOL/L (21-32)
[2020-08-12 14:15] LABS: ALKALINE PHOSPHATASE 82 U/L (40-136); CREATININE SERUM 1.19 MG/DL (0.60-1.30); GFR ESTIMATED > 60
[2020-08-12 14:16] LABS: BUN/CREATININE RATIO 10
[2020-08-12 14:18] LABS: ALANINE AMINOTRANSFERASE 20 U/L (0-55)
--- NOTE | 2020-08-12 14:31 | Diagnostic Imaging Report ---
PROCEDURE: CT thoracic and lumbar spine without contrast. TECHNIQUE: Multiple contiguous axial images were obtained through the thoracic and lumbar spine without the use of intravenous contrast. Sagittal and coronal reformations were then performed. All CT scans use one or more of the following dose optimizing techniques: automated exposure control, MA and/or KvP adjustment based on a patient size and exam type, or iterative reconstruction. INDICATION: Low back pain. COMPARISON: 08/06/2020. FINDINGS: No acute fracture or dislocation is seen in the thoracic and lumbar spine. No suspicious focal osseous lesions. No evidence of acute spinal canal stenosis. Endplate degenerative changes are present at the L4-L5 and L5-S1 levels. No high density material is seen within the spinal canal. The included pelvis demonstrates no acute abnormalities. The included lungs are clear. The soft tissues of the thoracic spine demonstrate no acute abnormalities. IMPRESSION: 1. No acute fracture or dislocation in the thoracic and lumbar spine. No evidence of acute spinal canal stenosis. Dictated by: Dictated on workstation # [id number]
[2020-08-12 15:20] LABS: BILIRUBIN,URINE NEGATIVE (NEGATIVE); CLARITY,URINE CLEAR; COLOR,URINE YELLOW; GLUCOSE, URINE (UA) NEGATIVE (NEGATIVE); KETONES,URINE NEGATIVE (NEGATIVE); LEUKOCYTE ESTERASE ,URINE NEGATIVE (NEGATIVE); NITRITE,URINE NEGATIVE (NEGATIVE); PROTEIN,URINE 1+ (NEGATIVE)
[2020-08-12 15:25] LABS: BACTERIA,URINE TRACE /HPF; SQUAMOUS EPITHELIAL CELL,UR 0-2 /HPF; WBC,URINE RARE /HPF
[2020-08-12] MEDS ORDERED: ACHD5005 PO (16:46)
[2020-08-12 16:54] VITALS: BP 147/101
== END 2020-08-12 16:55 | disposition home or self-care (01) ==
LOC: EDUNIT# 13:38 → ER 13:40
DX: M54.5 Low back pain (principal); J44.9 Chronic obstructive pulmonary disease, unspecified; I10 Essential (primary) hypertension; E78.00 Pure hypercholesterolemia, unspecified; K21.9 Gastro-esophageal reflux disease without esophagitis; E66.9 Obesity, unspecified; F41.9 Anxiety disorder, unspecified; F31.9 Bipolar disorder, unspecified; E11.9 Type 2 diabetes mellitus without complications; Z68.43 Body mass index [BMI] 50.0-59.9, adult; Z87.891 Personal history of nicotine dependence; Z79.82 Long term (current) use of aspirin; Z79.899 Other long term (current) drug therapy
CPT/HCPCS: 36415; 72128; 72131; 80053; 81000; 85025; 86141

== ENCOUNTER 2020-08-15 23:26 | Emergency (ER) | payer MEDICAID ==
[~2020-08-15] VITALS: Ht 180.3 cm; Wt 163.3 kg
[2020-08-16] MEDS ORDERED: HYDROcodone/APAP 5 MG/325 MG (LORTAB) TAB PO ONE (00:15)
[2020-08-16] MEDS ORDERED: LACTATED RINGERS 1,000 ML IV ONE (00:15)
--- NOTE | 2020-08-16 00:17 | ED Back Pain ---
General Chief Complaint: Back Problems Stated Complaint: BACK PAIN Nursing Triage Note: Pt reports that he has history of back pain that has worsened over the last several weeks. he reports that he had a kidney stent placed earlier this month and has not had any issues with it. Nursing Sepsis Screen: No Definite Risk Source of Information: Patient Exam Limitations: No Limitations History of Present Illness Date Seen by Provider: Aug 16, 2020 Time Seen by Provider: 00:00 Initial Comments Patient presents ER by private conveyance from home with chief complaint of low back pain. He says he was cut off by his primary care doctor after failing a drug screen. He has been having some loose stools lately ever since stopping his opiates. He thinks maybe it was the antibiotics that he is on for his history of ureteral stents and kidney stones. He did have lithotripsy at [place] and Dr. Gonzales, urology wants him to go to and in the next week for follow-up. He says his pain is running down his right flank and into his right groin same as usual. He does not have anything at home for his pain. He says the pain is much pain that he has stooled himself. No nausea vomiting fever chills cough shortness of air. The patient does have a significant history of lumbago with back surgery for his lumbar spinal degenerative disease. Allergies and Home Medications Allergies Coded Allergies: No Known Drug Allergies (Unverified , 12/21/17) Home Medications Acetaminophen 500 Mg Tablet, 1,000 MG PO Q4H PRN for PAIN-MILD (1-4), (Reported) Allopurinol 100 Mg Tablet, 100 MG PO DAILY, (Reported) Aripiprazole 30 Mg Tablet, 30 MG PO DAILY, (Reported) Aspirin 81 Mg Tablet.dr, 81 MG PO DAILY, (Reported) Atorvastatin Calcium 40 Mg Tablet, 40 MG PO HS, (Reported) Cefuroxime Axetil 500 Mg Tablet, 500 MG PO BID Prescribed by: LOGAN SNELL on 07/20/202143 Cephalexin 500 Mg Tablet, 500 MG PO TID Prescribed by: RUDY MEREDITH on 05/20/20 7804 Duloxetine HCl 30 Mg Capsule.dr, 30 MG PO DAILY, (Reported) TAKES 30MG + 60MG TOGETHER TO EQUAL 90MG DAILY Duloxetine HCl 60 Mg Capsule.dr, 60 MG PO DAILY, (Reported) TAKES 30MG + 60MG TOGETHER TO EQUAL 90MG DAILY Famotidine 20 Mg Tablet, 20 MG PO DAILY, (Reported) Fenofibrate Nanocrystallized 145 Mg Tablet, 145 MG PO DAILY, (Reported) Gabapentin 600 Mg Tablet, 600 MG PO TID, (Reported) Glimepiride 2 Mg Tablet, 2 MG PO DAILY, (Reported) Hydrocodone/Acetaminophen 1 Each Tablet, 1 TAB PO Q4H PRN for PAIN-MODERATE (5- 7) Prescribed by: LOGAN SNELL on 07/20/20 2145 Hydrocodone/Acetaminophen 1 Each Tablet, 1 TAB PO Q6H PRN for PAIN-SEVERE (8-10) Prescribed by: HELENA SOTO on 08/06/20 1730 Hydrocodone/Acetaminophen 1 Each Tablet, 1 TAB PO Q6H PRN for PAIN-MODERATE (5- 7) Prescribed by: SALTY MENDEZ on 08/12/20 1646 Lisinopril 10 Mg Tablet, 10 MG PO DAILY, (Reported) Mesalamine 1.2 Gm Tablet.dr, 4.8 GM PO DAILY, (Reported) TAKES 4 (1.2GM) TABLETS Metoprolol Tartrate 25 Mg Tablet, 25 MG PO BID, (Reported) Multivitamin 1 Each Tablet, 1 TAB PO DAILY, (Reported) Nifedipine 60 Mg Tablet.er, 60 MG PO DAILY, (Reported) Nitrofurantoin Monohyd/M-Cryst 100 Mg Capsule, 1 TAB PO BID Prescribed by: HELENA SOTO on 08/06/20 1729 [place]-3 Acid Ethyl Esters 1 Gm Capsule, 2 GM PO BID, (Reported) TAKES 2 (1GM) CAPSULES Omeprazole 40 Mg Capsule.dr, 40 MG PO HS, (Reported) Potassium Chloride 20 Meq Tab.er.prt, 40 MEQ PO BID, (Reported) TAKES 2 (20MEQ) TABS Ropinirole HCl 5 Mg Tablet, 5 MG PO TID, (Reported) Sodium Bicarbonate 650 Mg Tablet, 1,300 MG PO BID, (Reported) TAKES 2 (650MG) TABS Solifenacin Succinate 5 Mg Tablet, 5 MG PO DAILY, (Reported) Sucralfate 1 Gm Tablet, 1 GM PO BID WITH MEALS, (Reported) Tamsulosin HCl 0.4 Mg Cap, 0.4 MG PO HS, (Reported) Testosterone Cypionate 200 Mg/1 Ml Vial, 1 ML IM EVERY 2 WEEKS, (Reported) Topiramate 200 Mg Tablet, 200 MG PO BID, (Reported) Patient Home Medication List Home Medication List Reviewed: Yes Review of Systems Constitutional: No chills, No diaphoresis, No fever, No malaise EENTM: No ear discharge, No ear pain Respiratory: No cough, No short of breath Cardiovascular: No chest pain, No edema Gastrointestinal: No abdominal pain, No nausea, No vomiting Genitourinary: No discharge, No dysuria Musculoskeletal: back pain; No joint pain All Other Systems Reviewed Negative Unless Noted: Yes Past Mwvdnwj-Equmtw-Pjbwwu Hx Patient Social History Alcohol Use: Denies Use Alcohol Beverage of Choice: Beer Drug of Choice: marijuana Smoking Status: Current Everyday Smoker Type Used: Cigarettes Former Smoker, Quit: Jun 04, 2017 2nd Hand Smoke Exposure: Yes Recent Infectious Disease Expo: No Recent Hopitalizations: No Immunizations Up To Date Tetanus Booster (TDap): Unknown PED Vaccines UTD: No Date of Pneumonia Vaccine: May 22, 2016 Date of Influenza Vaccine: Nov 12, 2019 Seasonal Allergies Seasonal Allergies: No Past Medical History Surgeries: Yes Gallbladder, Orthopedic Respiratory: Yes COPD Currently Using CPAP: No Currently Using BIPAP: No Cardiac: Yes High Cholesterol, Hypertension Neurological: No Reproductive Disorders: No Sexually Transmitted Disease: No HIV/AIDS: No Genitourinary: Yes (RENAL STENTS) Kidney Stones, Renal Failure Gastrointestinal: Yes Colitis, Gastroesophageal Reflux, Gall Bladder Disease Musculoskeletal: Yes (BACK SX 2003) Arthritis Endocrine: Yes Diabetes, Non-Insulin dep HEENT: Yes Cancer: No Psychosocial: Yes (BIPOLAR, POLYSUBSTANCE ABUSE) Anxiety, Bipolar, Depression Integumentary: No Blood Disorders: No Adverse Reaction/Blood Tranf: No Family Medical History Completed stroke DVT 19 MOTHER, , Onset:Unknown Diabetes mellitus 19 MOTHER, , Onset:Unknown G8 BROTHER, Onset:Unknown FH: gastric ulcer 19 FATHER, Onset:Unknown DVT/PE, Diabetes, GI Disease Physical Exam Vital Signs Vital Signs - First Documented 08/15/20 23:35 Temp 36.8 Pulse 114 Resp 20 B/P (MAP) 176/110 (132) O2 Delivery Room Air Capillary Refill : Less Than 3 Seconds Height, Weight, BMI Height: 5'10.00" Weight: 330lbs. 3.0oz. [id number]; 50.00 BMI Method:Stated General Appearance: Anxious, Moderate Distress, Obese HEENT: PERRL/EOMI, Moist Mucous Membranes Neck: Full Range of Motion, Normal Inspection Cardiovascular: Regular Rate, Rhythm, Normal Peripheral Pulses Respiratory: No Accessory Muscle Use, No Respiratory Distress Gastrointestinal: Normal Bowel Sounds, No Organomegaly, Non Tender Extremity: Normal Capillary Refill, Normal Inspection, Normal Range of Motion Neurologic/Psychiatric: Alert, Oriented x3 Skin: Normal Color, Warm/Dry Progress/Results/Core Measures Results/Orders Lab Results Laboratory Tests Test 08/16/20 00:24 08/16/20 00:30 08/16/20 01:13 Range/Units White Blood Count 12.1 H 4.3-11.0 10^3/uL Red Blood Count 4.82 4.30-5.52 10^6/uL Hemoglobin 14.3 13.3-17.7 g/dL Hematocrit 44 40-54 % Mean Corpuscular Volume 92 80-99 fL Mean Corpuscular Hemoglobin 30 25-34 pg Mean Corpuscular Hemoglobin Concent 32 32-36 g/dL Red Cell Distribution Width 13.8 10.0-14.5 % Platelet Count 333 130-400 10^3/uL Mean Platelet Volume 10.2 9.0-12.2 fL Immature Granulocyte % (Auto) 1 % Neutrophils (%) (Auto) 74 42-75 % Lymphocytes (%) (Auto) 13 12-44 % Monocytes (%) (Auto) 10 0-12 % Eosinophils (%) (Auto) 1 0-10 % Basophils (%) (Auto) 1 0-10 % Neutrophils # (Auto) 8.9 H 1.8-7.8 10^3/uL Lymphocytes # (Auto) 1.6 1.0-4.0 10^3/uL Monocytes # (Auto) 1.2 H 0.0-1.0 10^3/uL Eosinophils # (Auto) 0.2 0.0-0.3 10^3/uL Basophils # (Auto) 0.1 0.0-0.1 10^3/uL Immature Granulocyte # (Auto) 0.1 0.0-0.1 10^3/uL Sodium Level 130 L 135-145 MMOL/L Potassium Level 6.0 H 4.3 3.6-5.0 MMOL/L Chloride Level 105 98-107 MMOL/L Carbon Dioxide Level 10 L 21-32 MMOL/L Anion Gap 15 H 5-14 MMOL/L Blood Urea Nitrogen 13 7-18 MG/DL Creatinine 1.18 0.60-1.30 MG/DL Estimat Glomerular Filtration Rate > 60 BUN/Creatinine Ratio 11 Glucose Level 110 H 70-105 MG/DL Calcium Level 9.8 8.5-10.1 MG/DL Corrected Calcium 10.3 H 8.5-10.1 MG/DL Total Bilirubin 0.4 0.1-1.0 MG/DL Aspartate Amino Transf (AST/SGOT) 55 H 5-34 U/L Alanine Aminotransferase (ALT/SGPT) 26 0-55 U/L Alkaline Phosphatase 79 40-136 U/L C-Reactive Protein High Sensitivity 5.68 H 0.00-0.50 MG/DL Total Protein 8.4 H 6.4-8.2 GM/DL Albumin 3.4 3.2-4.5 GM/DL Urine Color YELLOW Urine Clarity CLEAR Urine pH 5.5 5-9 Urine Specific [place] 1.020 1.016-1.022 Urine Protein 1+ H NEGATIVE Urine Glucose (UA) NEGATIVE NEGATIVE Urine Ketones NEGATIVE NEGATIVE Urine Nitrite NEGATIVE NEGATIVE Urine Bilirubin NEGATIVE NEGATIVE Urine Urobilinogen 0.2 < = 1.0 MG/DL Urine Leukocyte Esterase NEGATIVE NEGATIVE Urine RBC (Auto) 2+ H NEGATIVE Urine RBC 25-50 H /HPF Urine WBC NONE /HPF Urine Squamous Epithelial Cells 10-25 H /HPF Urine Crystals NONE /LPF Urine Bacteria NEGATIVE /HPF Urine Casts NONE /LPF Urine Mucus SMALL H /LPF Urine Culture Indicated NO My Orders Orders - SALTY MENDEZ Ua Culture If Indicated (08/16/20 00:09) Cbc With Automated Diff (08/16/20 00:09) Comprehensive Metabolic Panel (08/16/20 00:09) Hs C Reactive Protein (08/16/20 00:09) Hydrocodone/Apap 5/325 Tablet (Lortab 5 (08/16/20 00:15) Ed Iv/Invasive Line Start (08/16/20 00:09) Lactated Ringers (Lr 1000 Ml Iv Solution (08/16/20 00:15) Potassium (08/16/20 01:01) Medications Given in ED Current Medications Medications Dose Ordered Sig/Saba Route Start Time Stop Time Status Last Admin Dose Admin Acetaminophen/ Hydrocodone Bitart 2 ea ONCE ONCE PO 08/16/20 00:15 08/16/20 00:16 DC 08/16/20 00:32 2 EA Lactated Ringer's 1,000 ml @ 0 mls/hr Q0M ONCE IV 08/16/20 00:15 08/16/20 00:16 DC 08/16/20 00:32 1,000 MLS/HR Vital Signs/I&O 08/15/20 23:35 Temp 36.8 Pulse 114 Resp 20 B/P (MAP) 176/110 (132) O2 Delivery Room Air Blood Pressure Mean: 132 Progress Progress Note #1: Time: 00:15 Progress Note Opiate withdrawal versus antibiotic related diarrhea? He is tachycardic but not with fever. Plan to give him a liter of fluids, 2 tablets of hydrocodone for his back pain and some labs including urinalysis to assess whether he is having worsening problems with his urinary system. Encouraged him to follow-up with Dr. Gonzales for his pain management on the outpatient side. He says he has an appointment that they are working on making to a stage setting painter apprentice. Progress Note #2: Time: 02:19 Progress Note Labs are largely unremarkable. Suspect the first potassium represents a hemolyzed specimen. His labs did not change much from the last week. We did talk about imaging but he did not feel with these labs he is likely to have a large abscess or other structural issue. He declined CT imaging at this time. We did CT him earlier last week for the same presentation and that time was unremarkable. He is no longer sweating and has had no further diarrhea after the first hydrocodone dose we gave him. We discussed that his symptoms were pro bably related to opiate withdrawal as much as his stents. We encouraged him to continue working on following up with stage setting painter apprentice as well as talk to Dr. Gonzales's office about some opiates to get him through while he still has the stent in place. For the diarrhea we recommend Imodium as this will take care of it if it is opiate withdrawal mediated. We encouraged him to drink plenty of fluids and stay active. We will send him a small course of opiates to cover him until he can get in with either his urologist or stage setting painter apprentice. Departure Impression Primary Impression: Back pain Qualified Codes: M54.5 - Low back pain; G89.29 - Other chronic pain Additional Impressions: S/P ureteral stent placement Kidney calculi Disposition: HOME, SELF-CARE Condition: Stable Departure-Patient Inst. Decision time for Depature: 02:23 Referrals: ÁNGEL CASPER MD (PCP/Family) Primary Care Physician LINO GONZALES MD Patient Instructions: Kidney Stones in Adults, Low Back Pain (DC) Add. Discharge Instructions: Drink more fluids especially water. Tylenol 650 mg every 8 hours. Ibuprofen 600 mg every 8 hours Hydrocodone 1 tablet every 6 hours as necessary for severe breakthrough pain. Loperamide 1 tablet every 4 hours as necessary for loose watery stools. Follow-up with your urologist and primary care team for continued outpatient management of your pain. All discharge instructions reviewed with patient and/or family. Voiced understanding. Scripts Hydrocodone/Acetaminophen (Hydrocodone-Acetamin 5-325 mg) 1 Each Tablet 1 TAB PO Q6H PRN for PAIN-MODERATE (5-7), #8 TAB 0 Refills Prov: SALTY MENDEZ 08/16/20 Copy Copies To 1: LINO GONZALES MD, TITUS J Aug 16, 2020 00:16
[2020-08-16 00:36] LABS: BILIRUBIN,URINE NEGATIVE (NEGATIVE); CLARITY,URINE CLEAR; COLOR,URINE YELLOW; GLUCOSE, URINE (UA) NEGATIVE (NEGATIVE); KETONES,URINE NEGATIVE (NEGATIVE); LEUKOCYTE ESTERASE ,URINE NEGATIVE (NEGATIVE); NITRITE,URINE NEGATIVE (NEGATIVE); PH,URINE 5.5 (5-9); PROTEIN,URINE 1+ (NEGATIVE)
[2020-08-16 00:40] LABS: BASOPHILS # (AUTO) 0.1 10^3/uL (0.0-0.1); BASOPHILS % (AUTO) 1 % (0-10); EOSINOPHILS # (AUTO) 0.2 10^3/uL (0.0-0.3); EOSINOPHILS % (AUTO) 1 % (0-10); HEMATOCRIT 44 % (40-54); HEMOGLOBIN 14.3 g/dL (13.3-17.7); LYMPHOCYTES # (AUTO) 1.6 10^3/uL (1.0-4.0); LYMPHOCYTES % (AUTO) 13 % (12-44); MEAN CORPUSCULAR HEMOGLOBIN 30 pg (25-34); MEAN CORPUSCULAR HGB CONC 32 g/dL (32-36); MEAN CORPUSCULAR VOLUME 92 fL (80-99); MEAN PLATELET VOLUME 10.2 fL (9.0-12.2); MONOCYTES # (AUTO) 1.2 10^3/uL (0.0-1.0); MONOCYTES % (AUTO) 10 % (0-12); NEUTROPHILS # (AUTO) 8.9 10^3/uL (1.8-7.8); NEUTROPHILS % (AUTO) 74 % (42-75); PLATELET COUNT 333 10^3/uL (130-400); WHITE BLOOD COUNT 12.1 10^3/uL (4.3-11.0)
[2020-08-16 00:47] LABS: BACTERIA,URINE NEGATIVE /HPF; RBC,URINE 25-50 /HPF
[2020-08-16 00:51] LABS: ALBUMIN 3.4 GM/DL (3.2-4.5); CHLORIDE 105 MMOL/L (98-107); SODIUM 130 MMOL/L (135-145)
[2020-08-16 00:52] LABS: CALCIUM 9.8 MG/DL (8.5-10.1)
[2020-08-16 00:53] LABS: GLUCOSE 110 MG/DL (70-105); TOTAL PROTEIN 8.4 GM/DL (6.4-8.2)
[2020-08-16 00:54] LABS: CARBON DIOXIDE 10 MMOL/L (21-32)
[2020-08-16 00:55] LABS: BILIRUBIN,TOTAL 0.4 MG/DL (0.1-1.0)
[2020-08-16 00:57] LABS: ALKALINE PHOSPHATASE 79 U/L (40-136); CREATININE SERUM 1.18 MG/DL (0.60-1.30); GFR ESTIMATED > 60
[2020-08-16 00:58] LABS: BUN/CREATININE RATIO 11
[2020-08-16 01:00] LABS: ALANINE AMINOTRANSFERASE 26 U/L (0-55)
[2020-08-16] MEDS ORDERED: ACHD5005 PO (02:24)
[2020-08-16 02:40] VITALS: BP 144/103
== END 2020-08-16 02:40 | disposition home or self-care (01) ==
LOC: EDUNIT# 23:26 → ER 23:28
DX: N20.0 Calculus of kidney (principal); I10 Essential (primary) hypertension; E11.9 Type 2 diabetes mellitus without complications; J44.9 Chronic obstructive pulmonary disease, unspecified; E78.00 Pure hypercholesterolemia, unspecified; K21.9 Gastro-esophageal reflux disease without esophagitis; F41.9 Anxiety disorder, unspecified; F31.9 Bipolar disorder, unspecified; E66.9 Obesity, unspecified; F17.210 Nicotine dependence, cigarettes, uncomplicated; Z68.43 Body mass index [BMI] 50.0-59.9, adult; Z96.0 Presence of urogenital implants; Z79.84 Long term (current) use of oral hypoglycemic drugs; Z79.899 Other long term (current) drug therapy
CPT/HCPCS: 36415; 80053; 81000; 84132; 85025; 86141; 99283

== ENCOUNTER 2020-09-17 22:10 | Emergency (ER) | payer MEDICAID ==
[~2020-09-17] VITALS: Ht 177 cm; Wt 150.0 kg
[~2020-09-17 22:10] MED LIST changes: +ARIP20TA20 PO; -ARIP20TA9 PO; +CEPH250C PO; +DOXY-311 PO; -DOXY100C42 PO; -OMEP40CA27 PO; +OMEP40CA6 PO; -SULF1TAB35 PO; +SULF1TAB38 PO
--- NOTE | 2020-09-17 23:28 | ED Integumentary General ---
General Chief Complaint: General Problems/Pain Stated Complaint: LEG PAIN Nursing Triage Note: PT TO ED W/ C/O RASH TO BLE ET TORSO. PT REPORTS WAS JUST IN THE HOSPITAL ET DISCHARGED X3-4 DAYS AGO FOR SAME C/O. PT DENIED WORSENING OF SYMPTOMS AT THIS TIME. STATES "IT JUST CHURCH". NO OTHER C/O VOICED. Source: patient Exam Limitations: no limitations History of Present Illness Date Seen by Provider: Sep 17, 2020 Time Seen by Provider: 23:00 Initial Comments Patient to ER by EMS with chief complaint of painful rash over his left abdomen crossing the midline and on bilateral medial thighs. He says the rash started before his latest admission for urosepsis related to a kidney stone. He has been on antibiotics frequently for the past several months related to kidney stones and has a stent placed. He is not having problems urinating fevers chills. He does have weakness and was followed by physical therapy and Occupational Therapy while he was in the hospital. He is homebound at baseline due to his muscle weakness. He is been using Tylenol for his pain without successful treatment of pain. No fevers or chills. No draining from the rash. It is mildly itchy but does not have any pustules or blisters. He says they gave him a cream which she thinks may have been a steroid cream when he went home but he has not been applying it because he just been laying in bed. No mention of the rash on the discharge note. Allergies and Home Medications Allergies Coded Allergies: No Known Drug Allergies (Unverified , 12/21/17) Home Medications Acetaminophen 500 Mg Tablet, 1,000 MG PO Q4H PRN for PAIN-MILD (1-4), (Reported) Allopurinol 100 Mg Tablet, 100 MG PO DAILY, (Reported) Aripiprazole 30 Mg Tablet, 30 MG PO DAILY, (Reported) Aspirin 81 Mg Tablet.dr, 81 MG PO DAILY, (Reported) Atorvastatin Calcium 40 Mg Tablet, 40 MG PO HS, (Reported) Cephalexin 250 Mg Capsule, 500 MG PO QID Prescribed by: AYSE ASTUDILLO on 09/14/20 1313 Duloxetine HCl 30 Mg Capsule.dr, 30 MG PO DAILY, (Reported) TAKES 30MG + 60MG TOGETHER TO EQUAL 90MG DAILY Duloxetine HCl 60 Mg Capsule.dr, 60 MG PO DAILY, (Reported) TAKES 30MG + 60MG TOGETHER TO EQUAL 90MG DAILY Famotidine 20 Mg Tablet, 20 MG PO DAILY, (Reported) Fenofibrate Nanocrystallized 145 Mg Tablet, 145 MG PO HS, (Reported) Gabapentin 600 Mg Tablet, 600 MG PO TID, (Reported) Glimepiride 2 Mg Tablet, 2 MG PO DAILY, (Reported) Lisinopril 10 Mg Tablet, 10 MG PO DAILY, (Reported) Mesalamine 1.2 Gm Tablet.dr, 4.8 GM PO DAILY, (Reported) TAKES 4 (1.2GM) TABLETS Metoprolol Tartrate 25 Mg Tablet, 25 MG PO BID, (Reported) Multivitamin 1 Each Tablet, 1 TAB PO DAILY, (Reported) Nifedipine 60 Mg Tablet.er, 60 MG PO DAILY, (Reported) [place]-3 Acid Ethyl Esters 1 Gm Capsule, 2 GM PO BID, (Reported) TAKES 2 (1GM) CAPSULES Omeprazole 40 Mg Capsule.dr, 40 MG PO DAILY, (Reported) Potassium Chloride 20 Meq Tab.er.prt, 40 MEQ PO BID, (Reported) TAKES 2 (20MEQ) TABS Prednisone 20 Mg Tab, 40 MG PO DAILY Prescribed by: SALTY MENDEZ on 09/18/20 0142 Ropinirole HCl 5 Mg Tablet, 5 MG PO TID, (Reported) Sodium Bicarbonate 650 Mg Tablet, 1,300 MG PO BID, (Reported) TAKES 2 (650MG) TABS Tamsulosin HCl 0.4 Mg Cap, 0.4 MG PO HS, (Reported) Patient Home Medication List Home Medication List Reviewed: Yes Review of Systems Review of Systems Constitutional: No chills, No diaphoresis EENTM: No ear discharge, No ear pain Respiratory: No cough, No short of breath Cardiovascular: No chest pain, No palpitations Gastrointestinal: No abdominal pain, No nausea Genitourinary: No discharge, No dysuria Musculoskeletal: back pain (Chronic); No joint pain All Other Systems Reviewed Negative Unless Noted: Yes Past Ijavmls-Nyndrm-Zyqpan Hx Patient Social History Tobacco Use?: No Use of E-Cig and/or Vaping dev: No Substance use?: No Alcohol Use?: No Pt feels they are or have been: No Immunizations Up To Date Tetanus Booster (TDap): Unknown PED Vaccines UTD: No Seasonal Allergies Seasonal Allergies: No Past Medical History Surgeries: Yes Gallbladder, Orthopedic Respiratory: Yes COPD Currently Using CPAP: No Currently Using BIPAP: No Cardiac: Yes High Cholesterol, Hypertension Neurological: No Reproductive Disorders: No Sexually Transmitted Disease: No HIV/AIDS: No Genitourinary: Yes (RENAL STENTS) Kidney Stones, Renal Failure Gastrointestinal: Yes Colitis, Gastroesophageal Reflux, Gall Bladder Disease Musculoskeletal: Yes (BACK SX 2003) Arthritis Endocrine: Yes Diabetes, Non-Insulin dep HEENT: Yes Cancer: No Psychosocial: Yes (BIPOLAR, POLYSUBSTANCE ABUSE) Anxiety, Bipolar, Depression Integumentary: No Blood Disorders: No Adverse Reaction/Blood Tranf: No Family Medical History Completed stroke DVT 19 MOTHER, , Onset:Unknown Diabetes mellitus 19 MOTHER, , Onset:Unknown G8 BROTHER, Onset:Unknown FH: gastric ulcer 19 FATHER, Onset:Unknown DVT/PE, Diabetes, GI Disease Physical Exam Vital Signs Vital Signs - First Documented 09/17/20 22:14 Temp 36.2 Pulse 103 Resp 20 B/P (MAP) 149/102 (118) Pulse Ox 99 O2 Delivery Room Air Capillary Refill : Less Than 3 Seconds General Appearance: WD/WN, no apparent distress HEENT: PERRL/EOMI, pharynx normal Neck: full range of motion, normal inspection Cardiovascular: normal peripheral pulses, regular rate, rhythm Respiratory: no respiratory distress, no accessory muscle use Gastrointestinal: normal bowel sounds, non tender, soft Neurologic/Psychiatric: alert, oriented x 3, other (Depressed affect) Skin: rash (Excoriated, confluence of macular rash that is easily blanchable over his abdomen crossing the midline anterior and posteriorly with irregular border patches of confluence.) Progress/Results/Core Measures Results/Orders Lab Results Laboratory Tests Test 09/17/20 23:35 09/17/20 23:55 Range/Units Sodium Level 139 135-145 MMOL/L Potassium Level 4.2 3.6-5.0 MMOL/L Chloride Level 104 98-107 MMOL/L Carbon Dioxide Level 24 21-32 MMOL/L Anion Gap 11 5-14 MMOL/L Blood Urea Nitrogen 10 7-18 MG/DL Creatinine 0.78 0.60-1.30 MG/DL Estimat Glomerular Filtration Rate > 60 BUN/Creatinine Ratio 13 Glucose Level 110 H 70-105 MG/DL Calcium Level 9.2 8.5-10.1 MG/DL Corrected Calcium 9.7 8.5-10.1 MG/DL Total Bilirubin 0.4 0.1-1.0 MG/DL Aspartate Amino Transf (AST/SGOT) 33 5-34 U/L Alanine Aminotransferase (ALT/SGPT) 36 0-55 U/L Alkaline Phosphatase 99 40-136 U/L Total Creatine Kinase 79 30-200 U/L C-Reactive Protein High Sensitivity 6.82 H 0.00-0.50 MG/DL Total Protein 6.9 6.4-8.2 GM/DL Albumin 3.4 3.2-4.5 GM/DL White Blood Count 12.1 H 4.3-11.0 10^3/uL Red Blood Count 4.96 4.30-5.52 10^6/uL Hemoglobin 13.9 13.3-17.7 g/dL Hematocrit 44 40-54 % Mean Corpuscular Volume 89 80-99 fL Mean Corpuscular Hemoglobin 28 25-34 pg Mean Corpuscular Hemoglobin Concent 32 32-36 g/dL Red Cell Distribution Width 15.1 H 10.0-14.5 % Platelet Count 246 130-400 10^3/uL Mean Platelet Volume 9.7 9.0-12.2 fL Immature Granulocyte % (Auto) 1 % Neutrophils (%) (Auto) 76 H 42-75 % Lymphocytes (%) (Auto) 14 12-44 % Monocytes (%) (Auto) 7 0-12 % Eosinophils (%) (Auto) 2 0-10 % Basophils (%) (Auto) 1 0-10 % Neutrophils # (Auto) 9.2 H 1.8-7.8 10^3/uL Lymphocytes # (Auto) 1.7 1.0-4.0 10^3/uL Monocytes # (Auto) 0.9 0.0-1.0 10^3/uL Eosinophils # (Auto) 0.2 0.0-0.3 10^3/uL Basophils # (Auto) 0.1 0.0-0.1 10^3/uL Immature Granulocyte # (Auto) 0.1 0.0-0.1 10^3/uL Percent Immature Platelet Fraction 2.4 0.0-7.6 % My Orders Orders - SALTY MENDEZ Cbc With Automated Diff (09/17/20 23:24) Comprehensive Metabolic Panel (09/17/20 23:24) Hs C Reactive Protein (09/17/20 23:24) Creatine Kinase (09/17/20 23:25) Hydrocodone/Apap 5/325 Tablet (Lortab 5 (09/17/20 23:30) Loratadine Tablet (Claritin Tablet) (09/18/20 01:45) Prednisone Tablet (Deltasone Tablet) (09/18/20 01:45) Medications Given in ED Current Medications Medications Dose Ordered Sig/Saba Route Start Time Stop Time Status Last Admin Dose Admin Acetaminophen/ Hydrocodone Bitart 1 ea ONCE ONCE PO 09/17/20 23:30 09/17/20 23:31 DC 09/17/20 23:43 1 EA Loratadine 10 mg ONCE ONCE PO 09/18/20 01:45 09/18/20 01:47 DC 09/18/20 02:04 10 MG Prednisone 40 mg ONCE ONCE PO 09/18/20 01:45 09/18/20 01:47 DC 09/18/20 02:04 40 MG Vital Signs/I&O 09/17/20 09/17/20 09/18/20 22:14 23:43 02:05 Temp 36.2 36.2 36.2 Pulse 103 98 Resp 20 18 B/P (MAP) 149/102 (118) 141/94 (118) Pulse Ox 99 99 O2 Delivery Room Air Room Air Blood Pressure Mean: 118 Progress Progress Note : Time: 01:40 Progress Note The rash appears to be a drug rash. He has been on antibiotics a lot for his ureteral calculi and stents. For now we will put him on some Claritin and low- dose prednisone and have him follow-up outpatient with his primary care office this week. Departure Impression Primary Impression: Drug-induced skin rash Disposition: HOME, SELF-CARE Condition: Stable Departure-Patient Inst. Decision time for Depature: 01:41 Referrals: ÁNGEL CASPER MD (PCP/Family) Primary Care Physician Patient Instructions: Skin Rash (DC) Add. Discharge Instructions: You would have less systemic side effects if you use the steroid cream however if preferable then you may use prednisone 2 tablets daily for the next 5 days. Claritin 1 tablet daily for the next week to reduce the itching sensation. Follow-up with your primary care doctor for reexamination in 1 week. Return to the ER for shortness of breath, chest pain or other worrisome symptoms. All discharge instructions reviewed with patient and/or family. Voiced understanding. Scripts Prednisone (Prednisone) 20 Mg Tab 40 MG PO DAILY for 5 Days, #10 TAB 0 Refills Prov: SALTY MENDEZ 09/18/20 SALTY MENDEZ Sep 17, 2020 23:28
[2020-09-17] MEDS ORDERED: HYDROcodone/APAP 5 MG/325 MG (LORTAB) TAB PO ONE (23:30)
[2020-09-17 23:56] LABS: ALBUMIN 3.4 GM/DL (3.2-4.5); CHLORIDE 104 MMOL/L (98-107); POTASSIUM 4.2 MMOL/L (3.6-5.0); SODIUM 139 MMOL/L (135-145)
[2020-09-17 23:57] LABS: CALCIUM 9.2 MG/DL (8.5-10.1)
[2020-09-17 23:58] LABS: GLUCOSE 110 MG/DL (70-105); TOTAL PROTEIN 6.9 GM/DL (6.4-8.2)
[2020-09-17 23:59] LABS: CARBON DIOXIDE 24 MMOL/L (21-32)
[2020-09-18] LABS: BILIRUBIN,TOTAL 0.4 MG/DL (0.1-1.0)
[2020-09-18 00:02] LABS: ALKALINE PHOSPHATASE 99 U/L (40-136); CREATININE SERUM 0.78 MG/DL (0.60-1.30); GFR ESTIMATED > 60
[2020-09-18 00:03] LABS: BUN/CREATININE RATIO 13
[2020-09-18 00:05] LABS: ALANINE AMINOTRANSFERASE 36 U/L (0-55); CREATINE KINASE 79 U/L (30-200)
[2020-09-18 00:05] LABS: BASOPHILS # (AUTO) 0.1 10^3/uL (0.0-0.1); BASOPHILS % (AUTO) 1 % (0-10); EOSINOPHILS # (AUTO) 0.2 10^3/uL (0.0-0.3); EOSINOPHILS % (AUTO) 2 % (0-10); HEMATOCRIT 44 % (40-54); HEMOGLOBIN 13.9 g/dL (13.3-17.7); LYMPHOCYTES # (AUTO) 1.7 10^3/uL (1.0-4.0); LYMPHOCYTES % (AUTO) 14 % (12-44); MEAN CORPUSCULAR HEMOGLOBIN 28 pg (25-34); MEAN CORPUSCULAR HGB CONC 32 g/dL (32-36); MEAN CORPUSCULAR VOLUME 89 fL (80-99); MEAN PLATELET VOLUME 9.7 fL (9.0-12.2); MONOCYTES # (AUTO) 0.9 10^3/uL (0.0-1.0); MONOCYTES % (AUTO) 7 % (0-12); NEUTROPHILS # (AUTO) 9.2 10^3/uL (1.8-7.8); NEUTROPHILS % (AUTO) 76 % (42-75); PLATELET COUNT 246 10^3/uL (130-400); WHITE BLOOD COUNT 12.1 10^3/uL (4.3-11.0)
[2020-09-18] MEDS ORDERED: PRD20T PO (01:42)
[2020-09-18] MEDS ORDERED: LORATADINE (CLARITIN) 10 MG TAB PO ONE (01:45)
[2020-09-18] MEDS ORDERED: predniSONE 20 MG TAB PO ONE (01:45)
[2020-09-18 02:05] VITALS: BP 141/94
== END 2020-09-18 02:05 | disposition home or self-care (01) ==
LOC: EDUNIT# 22:10 → ER 22:11
DX: L27.0 Generalized skin eruption due to drugs and medicaments taken internally (principal); J44.9 Chronic obstructive pulmonary disease, unspecified; I10 Essential (primary) hypertension; E78.00 Pure hypercholesterolemia, unspecified; K21.9 Gastro-esophageal reflux disease without esophagitis; E11.9 Type 2 diabetes mellitus without complications; F31.9 Bipolar disorder, unspecified; F41.9 Anxiety disorder, unspecified; Z79.899 Other long term (current) drug therapy; Z79.82 Long term (current) use of aspirin
CPT/HCPCS: 36415; 80053; 82550; 85025; 86141

== ENCOUNTER 2020-10-21 19:15 | Inpatient (IN) | payer MEDICAID ==
[~2020-10-21] VITALS: Ht 177.8 cm; Wt 144.7 kg
[2020-10-21] MEDS ORDERED: NS IV 1000 ML 1,000 ML IV SCH (19:30)
--- NOTE | 2020-10-21 19:33 | ED General ---
General Stated Complaint: POSS UTI / POSS KIDNEY STONES Source of Information: Patient (PT IS AN EXTREMELY POOR, DIFFICULT, VAGUE AND LIMITED HISTORIAN), Old Records History of Present Illness Date Seen by Provider: Oct 21, 2020 Time Seen by Provider: 19:18 Initial Comments PT ARRIVES VIA EMS FROM HOME PT STATES HE IS "WEAK" "BEEN MIKE' ON FOR AWHILE" "NEVER REALLY WENT AWAY" --UNABLE TO STATE HOW LONG HE HAS FELT THIS WAY Allergies and Home Medications Allergies Coded Allergies: No Known Drug Allergies (Unverified , 12/21/17) Home Medications Acetaminophen 500 Mg Tablet, 1,000 MG PO Q4H PRN for PAIN-MILD (1-4), (Reported) Allopurinol 100 Mg Tablet, 100 MG PO DAILY, (Reported) Aripiprazole 30 Mg Tablet, 30 MG PO DAILY, (Reported) Aspirin 81 Mg Tablet.dr, 81 MG PO DAILY, (Reported) Atorvastatin Calcium 40 Mg Tablet, 40 MG PO HS, (Reported) Cephalexin 250 Mg Capsule, 500 MG PO QID Prescribed by: AYSE ASTUDILLO on 09/14/20 1313 Duloxetine HCl 30 Mg Capsule.dr, 30 MG PO DAILY, (Reported) TAKES 30MG + 60MG TOGETHER TO EQUAL 90MG DAILY Duloxetine HCl 60 Mg Capsule.dr, 60 MG PO DAILY, (Reported) TAKES 30MG + 60MG TOGETHER TO EQUAL 90MG DAILY Famotidine 20 Mg Tablet, 20 MG PO DAILY, (Reported) Fenofibrate Nanocrystallized 145 Mg Tablet, 145 MG PO HS, (Reported) Gabapentin 600 Mg Tablet, 600 MG PO TID, (Reported) Glimepiride 2 Mg Tablet, 2 MG PO DAILY, (Reported) Lisinopril 10 Mg Tablet, 10 MG PO DAILY, (Reported) Mesalamine 1.2 Gm Tablet.dr, 4.8 GM PO DAILY, (Reported) TAKES 4 (1.2GM) TABLETS Metoprolol Tartrate 25 Mg Tablet, 25 MG PO BID, (Reported) Multivitamin 1 Each Tablet, 1 TAB PO DAILY, (Reported) Nifedipine 60 Mg Tablet.er, 60 MG PO DAILY, (Reported) Osco-3 Acid Ethyl Esters 1 Gm Capsule, 2 GM PO BID, (Reported) TAKES 2 (1GM) CAPSULES Omeprazole 40 Mg Capsule.dr, 40 MG PO DAILY, (Reported) Potassium Chloride 20 Meq Tab.er.prt, 40 MEQ PO BID, (Reported) TAKES 2 (20MEQ) TABS Prednisone 20 Mg Tab, 40 MG PO DAILY Prescribed by: SALTY MENDEZ on 09/18/20 0142 Ropinirole HCl 5 Mg Tablet, 5 MG PO TID, (Reported) Sodium Bicarbonate 650 Mg Tablet, 1,300 MG PO BID, (Reported) TAKES 2 (650MG) TABS Tamsulosin HCl 0.4 Mg Cap, 0.4 MG PO HS, (Reported) Past Whbwaqk-Rkimjd-Hzibki Hx Immunizations Up To Date Tetanus Booster (TDap): Unknown PED Vaccines UTD: No Seasonal Allergies Seasonal Allergies: No Past Medical History Surgeries: Yes Gallbladder, Orthopedic Respiratory: Yes COPD Currently Using CPAP: No Currently Using BIPAP: No Cardiac: Yes High Cholesterol, Hypertension Neurological: No Reproductive Disorders: No Sexually Transmitted Disease: No HIV/AIDS: No Genitourinary: Yes (RENAL STENTS) Kidney Stones, Renal Failure Gastrointestinal: Yes Colitis, Gastroesophageal Reflux, Gall Bladder Disease Musculoskeletal: Yes (BACK SX 2003) Arthritis Endocrine: Yes Diabetes, Non-Insulin dep HEENT: Yes Cancer: No Psychosocial: Yes (BIPOLAR, POLYSUBSTANCE ABUSE) Anxiety, Bipolar, Depression Integumentary: No Blood Disorders: No Adverse Reaction/Blood Tranf: No Family Medical History Completed stroke DVT 19 MOTHER, , Onset:Unknown Diabetes mellitus 19 MOTHER, , Onset:Unknown G8 BROTHER, Onset:Unknown FH: gastric ulcer 19 FATHER, Onset:Unknown DVT/PE, Diabetes, GI Disease Physical Exam Vital Signs Capillary Refill : Height, Weight, BMI Height: 5'10.00" Weight: 330lbs. 3.0oz. 149.670363kb; 47.00 BMI Method:Stated Progress/Results/Core Measures Suspected Sepsis SIRS Temperature: Pulse: Respiratory Rate: Blood Pressure / Mean: Results/Orders My Orders Orders - KRISTIAN CONTRERAS DO Accucheck Stat ONCE (10/21/20 19:23) Ed Iv/Invasive Line Start (10/21/20 19:23) Ekg Tracing (10/21/20 19:23) Catheter(Urinary) Insert & Ass 03,15 (10/21/20 19:23) Monitor-Rhythm Ecg Trace Only (10/21/20 19:23) Chest 1 View, Ap/Pa Only (10/21/20 19:23) Alcohol (10/21/20:23) Amylase (10/21/20:23) Cbc With Automated Diff (10/21/20:23) Comprehensive Metabolic Panel (10/21/20:) Lactic Acid Analyzer (10/21/20:23) Lipase (10/21/20:23) Magnesium (10/21/20:23) Procalcitonin (Pct) (10/21/20:) Protime With Inr (10/21/20:) Partial Thromboplastin Time (10/21/20:) Thyroid Analyzer (10/21/20:23) Ua Culture If Indicated (10/21/20:) Blood Culture (10/21/20:) Troponin I (10/21/20:) Hs C Reactive Protein (10/21/20:) Erythrocyte Sedimentation Rate (10/21/20:) LDH (10/21/20:) Covid 19 Inhouse Test (10/21/20:) Sputum Culture (10/21/20:) Urine Culture (10/21/20:23) Ed Iv/Invasive Line Start (10/21/20 19:23) Vital Signs Adult Sepsis Patie Q15M (10/21/20 19:23) Remove Rings In Anticipation O (10/21/20 19:23) Ed Iv/Invasive Line Start (10/21/20 19:23) Ns Iv 1000 Ml (Sodium Chloride 0.9%) (10/21/20 19:30) Vital Signs/I&O Capillary Refill : Departure Departure-Patient Inst. Referrals: ÁNGEL CASPER MD (PCP/Family) Primary Care Physician KRISTIAN CONTRERAS DO Oct 21, 2020 19:33
[2020-10-21 19:55] LABS: BASOPHILS # (AUTO) 0.1 10^3/uL (0.0-0.1); BASOPHILS % (AUTO) 1 % (0-10); EOSINOPHILS # (AUTO) 0.2 10^3/uL (0.0-0.3); EOSINOPHILS % (AUTO) 2 % (0-10); HEMATOCRIT 45 % (40-54); HEMOGLOBIN 14.5 g/dL (13.3-17.7); LYMPHOCYTES # (AUTO) 2.5 10^3/uL (1.0-4.0); LYMPHOCYTES % (AUTO) 23 % (12-44); MEAN CORPUSCULAR HEMOGLOBIN 28 pg (25-34); MEAN CORPUSCULAR HGB CONC 32 g/dL (32-36); MEAN CORPUSCULAR VOLUME 86 fL (80-99); MEAN PLATELET VOLUME 9.8 fL (9.0-12.2); MONOCYTES # (AUTO) 0.7 10^3/uL (0.0-1.0); MONOCYTES % (AUTO) 7 % (0-12); NEUTROPHILS % (AUTO) 67 % (42-75); PLATELET COUNT 277 10^3/uL (130-400); WHITE BLOOD COUNT 10.5 10^3/uL (4.3-11.0)
[2020-10-21 19:56] LABS: CLARITY,URINE TURBID; COLOR,URINE BROWN; GLUCOSE, URINE (UA) NEGATIVE (NEGATIVE); KETONES,URINE NEGATIVE (NEGATIVE); LEUKOCYTE ESTERASE ,URINE 2+ (NEGATIVE); NITRITE,URINE POSITIVE (NEGATIVE); PH,URINE 6.5 (5-9); PROTEIN,URINE 3+ (NEGATIVE)
--- NOTE | 2020-10-21 19:58 | Diagnostic Imaging Report ---
HISTORY: Shortness of air. COMPARISON: 09/10/2020. TECHNIQUE: Frontal view of the chest. FINDINGS: Lung volumes are low. There is poor penetration in the lower chest, may be due to body habitus. No definite consolidation is seen. There is mild cardiomegaly and appears to be mild central vascular congestion. No significant pleural effusion or pneumothorax is seen. IMPRESSION: Low lung volumes with mild cardiomegaly and mild central vascular congestion. Dictated by: Dictated on workstation # [id number]
[2020-10-21 20:14] LABS: ALANINE AMINOTRANSFERASE 18 U/L (0-55); ALBUMIN 4.1 GM/DL (3.2-4.5); ALKALINE PHOSPHATASE 89 U/L (40-136); AMYLASE 39 U/L (25-125); BILIRUBIN,TOTAL 0.4 MG/DL (0.1-1.0); BUN/CREATININE RATIO 11; CALCIUM 10.2 MG/DL (8.5-10.1); CARBON DIOXIDE 18 MMOL/L (21-32); CHLORIDE 106 MMOL/L (98-107); CREATININE SERUM 0.81 MG/DL (0.60-1.30); GFR ESTIMATED 101; GLUCOSE 119 MG/DL (70-105); LIPASE 27 U/L (8-78); MAGNESIUM 1.9 MG/DL (1.6-2.4); POTASSIUM 2.9 MMOL/L (3.6-5.0); SODIUM 139 MMOL/L (135-145); TOTAL PROTEIN 7.6 GM/DL (6.4-8.2)
[2020-10-21 20:25] LABS: ERYTHROCYTE SEDIMENTATION RATE 31 MM/HR (0-30)
[2020-10-21 20:29] LABS: RBC,URINE TNTC /HPF
[2020-10-21 20:30] LABS: BACTERIA,URINE TRACE /HPF; WBC,URINE 50-100 /HPF
[2020-10-21 20:31] LABS: BILIRUBIN,URINE 1+ (NEGATIVE)
[2020-10-21 20:34] LABS: TSH (THYROID ANALYZER) 2.07 UIU/ML (0.35-4.94)
[2020-10-21] MEDS ORDERED: 1/2 NS W/KCL 20 MEQ/L 1,000 ML IV SCH (21:00)
[2020-10-21] MEDS ORDERED: cefTRIAXone 1,000 MG in WATER (STERILE) FOR INJECTION 10 ML IV ONE (21:00)
[2020-10-21 21:13] LABS: INR 0.9 (0.8-1.4); PROTHROMBIN TIME PATIENT 12.8 SEC (12.2-14.7)
--- NOTE | 2020-10-21 22:05 | Diagnostic Imaging Report ---
PROCEDURE: CT urinary tract, rule out kidney stone. TECHNIQUE: Multiple contiguous axial images were obtained through the abdomen and pelvis without the use of intravenous contrast. Auto Exposure Controls were utilized during the CT exam to meet ALARA standards for radiation dose reduction. INDICATION: Abdominal pain, flank pain. COMPARISON: 09/11/2020. FINDINGS: The lung bases are clear. The heart is normal in size. There is no pericardial effusion. The liver demonstrates no focal lesion. Cholecystectomy clips are noted. The spleen appears normal. The pancreas is normal. The adrenal glands appear normal. There are nonobstructing calculi in the right kidney, the largest measuring up to 8 mm. There is no hydronephrosis or obstructing calculus in the right kidney. The left kidney demonstrates multiple nonobstructing calculi as well, the largest in the inferior pole measuring up to 1.2 cm in diameter. There is a left ureteral stent which appears to be in expected position and there is no hydronephrosis. There is some perirenal fat stranding and there is a calculus in the distal ureter about 6 cm above the ureterovesicular junction which measures 7 mm in diameter and lies adjacent to the ureteral stent. The bowel loops are nondistended without obstruction. The appendix is normal. No free fluid or free air is seen. There is a small fat-containing right inguinal hernia. No acute osseous abnormality is seen. There are degenerative changes in the spine and hips. There is destruction across the L2-L3 disc involving the endplates. This has progressed since the prior study and there does appear to be spinal canal stenosis at this level. IMPRESSION: 1. Left ureteral stent is in the expected position. There is a 7 mm left ureteral calculus adjacent to the stent, with no hydronephrosis. 2. Nonobstructing calculi in the kidneys, bilaterally. 3. Destruction and collapse across the endplates of the L2-L3 vertebral level in the spine, may be due to a discitis osteomyelitis. There is concern for spinal canal stenosis at this level. Recommend MRI with and without contrast to further evaluate. Dictated by: Dictated on workstation # [id number]
[2020-10-21] MEDS ORDERED: hydrALAZINE (APESOLINE) 20 MG/ML VIAL IV ONE (22:15)
[2020-10-21] MEDS ORDERED: KETOROLAC 30 MG/ML VIAL IVP ONE (22:15)
--- NOTE | 2020-10-21 22:16 | Diagnostic Imaging Report ---
HISTORY: Abdominal pain, flank pain. TECHNIQUE: Frontal views of the abdomen. COMPARISON: 09/11/2020. FINDINGS: The left ureteral stent is in the expected position. The calculus previously seen at the coil at the proximal stent has migrated distally and is better seen on the concurrent CT. The large calculus at the inferior pole of the left kidney is again seen. Cholecystectomy clips are noted. There is progression of the severe height loss and endplate destruction at L2-L3. IMPRESSION: 1. Migration of the left renal calculus into the ureter with stable left ureteral stent. Stable large left renal calculus. 2. Progression of endplate destruction at L2-L3, please refer to CT of the abdomen and pelvis performed on the same day. Dictated by: Dictated on workstation # [id number]
[2020-10-21 23:30] VITALS: BP 135/96
[2020-10-22] MEDS ORDERED: ONDANSETRON 4 MG/2 ML (SDV) Z0FRAN IV PRN (01:00)
[2020-10-22] MEDS: ACETAMINOPHEN 500 MG TAB (TYLENOL) PO PRN ×2 (01:53→15:46)
[2020-10-22] MEDS: 1/2 NS W/KCL 20 MEQ/L 1,000 ML IV SCH ×4 (01:53→18:22)
[2020-10-22] MEDS ORDERED: BACL20TA PO (02:49)
[2020-10-22 04:13] VITALS: BP 147/85
[2020-10-22] MEDS: KETOROLAC 30 MG/ML VIAL IVP PRN ×3 (04:53→22:24)
[2020-10-22 05:31] LABS: BASOPHILS # (AUTO) 0.1 10^3/uL (0.0-0.1); BASOPHILS % (AUTO) 1 % (0-10); EOSINOPHILS # (AUTO) 0.1 10^3/uL (0.0-0.3); EOSINOPHILS % (AUTO) 2 % (0-10); HEMATOCRIT 41 % (40-54); HEMOGLOBIN 12.9 g/dL (13.3-17.7); LYMPHOCYTES # (AUTO) 1.8 10^3/uL (1.0-4.0); LYMPHOCYTES % (AUTO) 23 % (12-44); MEAN CORPUSCULAR HEMOGLOBIN 28 pg (25-34); MEAN CORPUSCULAR HGB CONC 32 g/dL (32-36); MEAN CORPUSCULAR VOLUME 89 fL (80-99); MEAN PLATELET VOLUME 9.7 fL (9.0-12.2); MONOCYTES # (AUTO) 0.7 10^3/uL (0.0-1.0); MONOCYTES % (AUTO) 9 % (0-12); NEUTROPHILS # (AUTO) 5.1 10^3/uL (1.8-7.8); NEUTROPHILS % (AUTO) 65 % (42-75); PLATELET COUNT 223 10^3/uL (130-400); WHITE BLOOD COUNT 7.8 10^3/uL (4.3-11.0)
[2020-10-22 05:35] LABS: CALCIUM 9.4 MG/DL (8.5-10.1)
[2020-10-22 05:39] LABS: CREATININE SERUM 0.8 MG/DL (0.60-1.30)
[2020-10-22] MEDS: inSUlin ASPART (NovoLOG) 1 UNIT/0.01 ML (CHARGE PER UNIT) SC SCH ×4 (05:57→20:41)
[2020-10-22 07:34] VITALS: BP 135/84
[2020-10-22 11:22] VITALS: BP 140/94
[2020-10-22 16:00] VITALS: BP 156/105
--- NOTE | 2020-10-22 17:08 | History & Physical-Hospitalist ---
History of Present Illness HPI/Chief Complaint Dov Forte is a 49 year old male who follows with [facility] Dr. Renae with PMH HTN, HLD, T2DM, CAD, COPD, morbid obesity, BPH, who was admitted with UTI. He is a poor historian. He says he came in because of his kidneys. He reports back pain. He has a ureteral stent which was supposed to be removed some time ago but he has had issues with making it to [facility] to have it removed. He has kidney stones which led to the stent placement. He has had recurrent UTIs recently, likely due to his retained stent and kidney stones intermittently obstructing outflow. He denies fevers and chills. He denies abdominal pain, nausea, and vomiting. He is having diarrhea. He had an MRI with Dr. Ruiz at [address] about a month ago. Source: patient Exam Limitations: no limitations Date Seen 10/22/20 Time Seen by a Provider: 12:30 Attending Physician Orestes Sweeney MD PCP Freddy Renae MD Referring Physician Date of Admission Oct 21, 2020 at 22:20 Home Medications & Allergies Home Medications Reviewed patient Home Medication Reconciliation performed by pharmacy medication reconciliations business office technician and/or nursing. Patients Allergies have been reviewed. Allergies Allergies Coded Allergies No Known Drug Allergies (Ctkytvrbxz69/21/18) Past Mrfbsnz-Vzhepv-Jxczoi Hx Patient Social History Tobacco Use?: No Smoking Status: Former Smoker Use of E-Cig and/or Vaping dev: No Substance use?: No Alcohol Use?: No Pt feels they are or have been: No Immunizations Up To Date Date of Influenza Vaccine: Nov 12, 2019 First/Initial COVID19 Vaccinat: JUNE 2020 Second COVID19 Vaccination Ronald: JUNE 2020 Tetanus Booster (TDap): Unknown Hepatitis A: No Hepatitis B: No PED Vaccines UTD: No Date of Pneumonia Vaccine: May 22, 2016 Seasonal Allergies Seasonal Allergies: No Current Status Advance Directives: No Communicates: Verbally Primary Language: Cuban Preferred Spoken Language: Cuban Is interpretation needed?: No Implanted or Applied Medical D: Stents Past Medical History Surgeries: Gallbladder, Orthopedic COPD Currently Using CPAP: No Currently Using BIPAP: No High Cholesterol, Hypertension Sexually Transmitted Disease: No HIV/AIDS: No Kidney Stones, Renal Failure Colitis, Gastroesophageal Reflux, Gall Bladder Disease Arthritis Diabetes, Non-Insulin dep Anxiety, Bipolar, Depression Blood Disorders: No Adverse Reaction/Blood Tranf: No PMHx: HTN NIDDM Restless Legs COPD Sleep apnea on cpap SurgHx: Back surgery Cholecystectomy Family Medical History Completed stroke DVT 19 MOTHER, , Onset:Unknown Diabetes mellitus 19 MOTHER, , Onset:Unknown G8 BROTHER, Onset:Unknown FH: gastric ulcer 19 FATHER, Onset:Unknown DVT/PE, Diabetes, GI Disease Review of Systems Constitutional: no symptoms reported EENTM: no symptoms reported Respiratory: no symptoms reported Cardiovascular: no symptoms reported Gastrointestinal: diarrhea Genitourinary: no symptoms reported Musculoskeletal: back pain Skin: no symptoms reported Psychiatric/Neurological: No Symptoms Reported Physical Exam Physical Exam Vital Signs Vital Signs - First Documented 10/21/20 19:15 Temp 35.2 Pulse 128 Resp 20 B/P (MAP) 176/129 (145) Pulse Ox 93 O2 Delivery Room Air Capillary Refill : Less Than 3 Seconds Height, Weight, BMI Height: 5'10.00" Weight: 330lbs. 3.0oz. 149.075484ch; 44.28 BMI Method:Stated General Appearance: No Apparent Distress, Obese HEENT: PERRL/EOMI, Pharynx Normal Neck: Normal Inspection, Supple Respiratory: Lungs Clear, Normal Breath Sounds, No Respiratory Distress Cardiovascular: Regular Rate, Rhythm, No Edema, No Murmur Gastrointestinal: Normal Bowel Sounds, Non Tender, Soft Extremity: Normal Inspection, Non Tender, Pedal Edema Neurologic/Psychiatric: Alert, Motor Weakness, Other (flat affect) Skin: Warm/Dry, Rash Results Results/Procedures Labs Laboratory Tests 10/21/20 19:23 10/22/20 05:03 Patient resulted labs reviewed. Imaging: Reviewed Imaging Films, Reviewed Imaging Report Assessment/Plan Admission Diagnosis UTI associated with retained ureteral stent Admission Status: Inpatient Order (span 2 midnights) Reason for Inpatient Admission: IV antibiotics Assessment and Plan UTI Retained ureteral stent Nephrolithiasis Lactic acidosis UA consistent with UTI Urine culture with likely coag negative Staph Previous cultures with Staph epi sensistive to cephalosporins Rocephin IV fluids Back pain CT concerning for discitis/osteomyelitis ESR/CRP mildly elevated Recent MRI performed at [facility] [address] Ruiz Obtain outside records May need repeat MRI HTN HLD Chronic pain GERD Gout Continue home meds T2DM Sliding scale insulin DVT prophylaxis: Lovenox Diagnosis/Problems Diagnosis/Problems (1) UTI (urinary tract infection) Status: Acute (2) Kidney stones Status: Acute (3) Retained ureteral stent Status: Acute (4) Back pain Status: Acute (5) Lactic acidosis Status: Acute AYSE ASTUDILLO MD Oct 22, 2020 17:08
[2020-10-22] MEDS: cefTRIAXone 2,000 MG in WATER (STERILE) FOR INJECTION 20 ML IV SCH (18:19)
[2020-10-22 19:39] VITALS: BP 152/100
[2020-10-22] MEDS: ENOXAPARIN 40 MG/0.4 ML (LOVENOX) SYR SQ SCH (20:40)
[2020-10-22] MEDS: meTOprolol TARTRATE 25 MG (LOPRESSOR) TABLET PO SCH (20:41)
[2020-10-22] MEDS: TAMSULOSIN 0.4 MG (FLOMAX) CAP PO SCH (20:41)
[2020-10-22] MEDS: FENOFIBRATE 134 MG (LOFIBRA) CAPSULE PO SCH (20:41)
[2020-10-22] MEDS: rOPINIRole 5 MG TAB (REQUIP) PO SCH (20:41)
[2020-10-22] MEDS: GABAPENTIN 600 MG (NEURONTIN) TAB PO SCH (20:41)
[2020-10-22] MEDS ORDERED: cefTRIAXone 1,000 MG/SWFI 10 ML IV PUSH IV SCH ×2 (21:00)
[2020-10-22] MEDS: VANCOMYCIN 125 MG CAPSULE PO SCH (22:24)
[2020-10-22 23:30] VITALS: BP 147/91
[2020-10-23 03:52] VITALS: BP 162/91
[2020-10-23] MEDS: VANCOMYCIN 125 MG CAPSULE PO SCH ×4 (05:24→21:35)
[2020-10-23] MEDS: PANTOPRAZOLE 40 MG (PROTONIX) TAB PO SCH (05:24)
[2020-10-23] MEDS: 1/2 NS W/KCL 20 MEQ/L 1,000 ML IV SCH ×3 (05:24→17:05)
[2020-10-23] MEDS: KETOROLAC 30 MG/ML VIAL IVP PRN ×2 (05:27→14:06)
[2020-10-23 06:22] LABS: BASOPHILS # (AUTO) 0.1 10^3/uL (0.0-0.1); BASOPHILS % (AUTO) 1 % (0-10); EOSINOPHILS # (AUTO) 0.2 10^3/uL (0.0-0.3); EOSINOPHILS % (AUTO) 3 % (0-10); HEMATOCRIT 38 % (40-54); HEMOGLOBIN 12.2 g/dL (13.3-17.7); LYMPHOCYTES # (AUTO) 1.7 10^3/uL (1.0-4.0); LYMPHOCYTES % (AUTO) 25 % (12-44); MEAN CORPUSCULAR HEMOGLOBIN 28 pg (25-34); MEAN CORPUSCULAR HGB CONC 32 g/dL (32-36); MEAN CORPUSCULAR VOLUME 88 fL (80-99); MEAN PLATELET VOLUME 9.6 fL (9.0-12.2); MONOCYTES # (AUTO) 0.6 10^3/uL (0.0-1.0); MONOCYTES % (AUTO) 9 % (0-12); NEUTROPHILS % (AUTO) 61 % (42-75); PLATELET COUNT 199 10^3/uL (130-400); WHITE BLOOD COUNT 6.6 10^3/uL (4.3-11.0)
[2020-10-23 06:37] LABS: POTASSIUM 3.2 MMOL/L (3.6-5.0)
[2020-10-23 06:38] LABS: CALCIUM 9.5 MG/DL (8.5-10.1)
[2020-10-23] MEDS: POTASSIUM CL 10MEQ/50ML IVPB 50 ML IV SCH (06:40)
[2020-10-23] MEDS: inSUlin ASPART (NovoLOG) 1 UNIT/0.01 ML (CHARGE PER UNIT) SC SCH ×4 (06:41→21:35)
[2020-10-23] MEDS: KCL 20 MEQ TAB (K-DUR) PO SCH (06:41)
[2020-10-23 06:42] LABS: CREATININE SERUM 0.83 MG/DL (0.60-1.30)
[2020-10-23 06:44] LABS: MAGNESIUM 1.8 MG/DL (1.6-2.4)
[2020-10-23] MEDS: MAGNESIUM 1 GM/100 ML IVPB 100 ML IV SCH (06:46)
[2020-10-23 07:37] VITALS: BP 148/98
[2020-10-23] MEDS: GABAPENTIN 600 MG (NEURONTIN) TAB PO SCH ×3 (08:52→21:35)
[2020-10-23] MEDS: FAMOTIDINE 20 MG (PEPCID) TABLET PO SCH (08:52)
[2020-10-23] MEDS: DULoxetine 30 MG (CYMBALTA) CAP PO SCH (08:52)
[2020-10-23] MEDS: lisINopril 10 MG (PRINIVIL) TABLET PO SCH (08:52)
[2020-10-23] MEDS: NIFEdipine ER 60 MG (PROCARDIA XL) TAB PO SCH (08:52)
[2020-10-23] MEDS: ENOXAPARIN 40 MG/0.4 ML (LOVENOX) SYR SQ SCH ×2 (08:53→21:36)
[2020-10-23] MEDS: meTOprolol TARTRATE 25 MG (LOPRESSOR) TABLET PO SCH ×2 (08:53→21:35)
[2020-10-23] MEDS: ASPIRIN E.C. 81 MG (ECOTRIN) TAB PO SCH (08:53)
[2020-10-23] MEDS: rOPINIRole 5 MG TAB (REQUIP) PO SCH ×3 (08:53→21:35)
[2020-10-23] MEDS: ALLOPURINOL 100 MG (ZYLOPRIM) TAB PO SCH (08:53)
[2020-10-23] MEDS ORDERED: NON-FORMULARY MEDICATION 1 EA EA (Duloxetine HCl 60 MG) PO SCH (09:00)
[2020-10-23] MEDS ORDERED: KCL 20 MEQ TAB (K-DUR) PO ONE ×2 (09:00→11:00)
[2020-10-23] MEDS: MESALAMINE 1.2 GM PO SCH (09:34)
--- NOTE | 2020-10-23 10:47 | Physician Query Clarification ---
PQ-Uncertain Diagnosis Admission/Discharge Admission Date: Oct 21, 2020 at 22:20 Discharge Date: Dr. Astudillo, The medical record reflects the following clinical scenario: History/Risk Factors: indwelling ureteral stent, UTI, kidney stone Clinical Findings: T 35.2, P 128, R 20, lactic acid 3.00 Treatment: IV Ceftriaxone, PO Vancomycin Question: Is sepsis a clinically valid diagnosis? Sepsis was documented in the admit orders with no further documentation in the medical record. Please document a response in Progress Note or Discharge Summary. 1. Yes, clinically valid, condition resolved. 2. No, condition ruled out. 3. Other, with explanation of clinical findings. 4. Undetermined, no explanation for clinical findings. PHYSICIAN RESPONSE Diagnosis clinically valid: Yes, Conditon resolved Please remember a lack of response to the above will prompt a phone page by CDI/Coding staff. In responding to this query, please exercise your independent professional judgment. The purpose of this communication is to more accurately reflect the complexity of your patients condition. The fact that a question is asked does not imply that any particular answer is desired or expected. Thank you for your timely response to this clarification. Requestors name: Awilda THIS PHYSICIAN QUERY FORM IS A PERMANENT PART OF THE MEDICAL RECORD AWILDA NIETO Oct 23, 2020 10:47 AYSE ASTUDILLO MD Oct 25, 2020 20:07
--- NOTE | 2020-10-23 11:19 | Physical Therapy Evaluation ---
PT Evaluation-General Medical Diagnosis Admission Date Oct 21, 2020 at 22:20 Medical Diagnosis: UTI/left ureteral stent/stone/sepsis/HTN,DM Onset Date: Oct 21, 2020 Therapy Diagnosis Therapy Diagnosis: debility/weakness Height/Weight Height (Feet): 5 Height (Inches): 10.00 Weight (Pounds): 330 Weight (Ounces): 3.0 Precautions Precautions/Isolations: Contact Isolation, Fall Prevention Referral Physician: Sasha Reason for Referral: Evaluation/Treatment Medical History Pertinent Medical History: CAD, COPD, DM, HTN, Renal Insufficiency, Smoking Current History EMS secondary to weakness Reviewed History: Yes Social History Home: Apartment Prior Prior Level of Function SCALE: Activities may be completed with or without assistive devices. 6-Ewkehhepwx-wtroorv completes the activity by him/herself with no assistance from a helper. 5-Set-up or Clean-up Assistance-helper sets up or cleans up; patient completes activity. [place] assists only prior to or following the activity. 4-Supervision or Touching Assistance-helper provides verbal cues and/or touching /steadying and/or contact guard assistance as patient completes activity. Assistance may be provided throughout the activity or intermittently. 3-Partial/Moderate Assistance-helper does LESS THAN HALF the effort. [place] lifts, holds or supports trunk or limbs, but provides less than half the effort. 2-Substantial/Maximal Assistance-helper does MORE THAN HALF the effort. [place] lifts or holds trunk or limbs and provides more than half the effort. 6-Nvosbsode-yvocjp does ALL the effort. Patient does none of the effort to complete the activity. Or, the assistance of 2 or more helpers is required for the patient to complete the activity. If activity was not attempted, code reason: 7-Patient Refused. 9-Not Applicable-not attempted and the patient did not perform the activity before the current illness, exacerbation or injury. 10-Not Attempted due to Environmental Limitations-(lack of equipment, weather restraints, etc.). 88-Not Attempted due to Medical Conditions or Safety Concerns. Bed Mobility: 6 Transfers (B,C,W/C): 6 Gait: 6 Stairs: 6 Indoor Mobility (Ambulation): Independent Stairs: Independent Prior Devices Use: None PT Evaluation-Current Subjective Patient agrees to PT. Objective Patient Orientation: Normal For Age Attachments: IV ROM/Strength ROM Lower Extremities bilateral LE WFL Strength Lower Extremities 4/5 grossly bilateral LE Integumentary/Posture Bowel Incontinence: No Bladder Incontinence: No Posture WFL Neuromuscular (Tone, Coordination, Reflexes) noted tremors/shaking Sensory Vision: Functional Hearing: Functional Transfers Sit to Stand (QC): 6 Toilet Transfer (QC): 6 Gait Does the Patient Walk?: Yes Mode of Locomotion: Walk Anticipated Mode of Locomotion: Walk Walk 10 feet (QC): 4 Walk 50 ft with 2 Turns(QC): 4 Distance: 50' Gait Assistive Device: FWW Comments/Gait Description slow, steady Balance Sitting Static: Normal Sitting Dynamic: Normal Standing Static: Fair Standing Dynamic: Fair Assessment/Needs 49 y.o. male, will be seen short term by skilled PT to address functional mobility to ensure safe return to home at maximum LOF. Rehab Potential: Fair Post Rehab Potential-Barriers: compliance PT Testing Tech Goals Long-Term Goals PT Testing Tech Goals Time Frame: Nov 04, 2020 Roll Left & Right (QC): 6 Sit to Lying (QC): 6 Lying-Sitting on Side/Bed(QC): 6 Sit to Stand (QC): 6 Chair/Cwj-qo-Ipblr Xfer(QC): 6 Toilet Transfer (QC): 6 Does the Patient Walk: Yes Walk 10 feet (QC): 6 Walk 50ft with 2 Turns (QC): 6 Walk 150 ft (QC): 6 PT Plan Problem List Problem List: Activity Tolerance, Safety Treatment/Plan Treatment Plan: Continue Plan of Care Treatment Plan: Bed Mobility, Education, Functional Activity Joseline, Functional Strength, Gait, Safety, Therapeutic Exercise, Other Treatment Duration: Nov 04, 2020 Frequency: 6 times per week Estimated Hrs Per Day: .25 hour per day Patient and/or Family Agrees t: Yes Time/GCodes Time In: 1033 Time Out: 1046 Total Billed Treatment Time: 13 Total Billed Treatment 1 visit EVModC 13 min LUCA CONNELLY PT Oct 23, 2020 11:19
--- NOTE | 2020-10-23 12:02 | Progress Note - Hospitalist ---
KAVITA BROWN MED STUDENT 10/23/20 1202: Subjective HPI/CC On Admission Date Seen by Provider: Oct 23, 2020 Time Seen by Provider: 08:00 UTI, L ureteral stent and stone, sepsis, HTN Subjective/Events-last exam This is Dov a 49 yo male on day 3 of his hospital stay with the chief complaint of UTI, L ureteral stent and stone, sepsis, HTN. Upon entering the room he was laying in bed watching TV. Pt was calm, cooperative, and engaged during questioning. He stated that he was experiencing lower back and hip pain. He stated that he will have intense spasms that are about 8/10 but is in constant discomfort at 2/10 on the pain scale. He admitted to having minimal SOB while at rest on room air. On 10/22 he tested positive for C. diff and is having multiple BMs a day because of this. On 10/21 imaging showed the stent and stone in the left ureter, but also revealed spinal canal stenosis at L2-L3. Review of Systems Pulmonary: Dyspnea Gastrointestinal: Diarrhea Musculoskeletal: back pain Focused Exam Lactate Level 10/21/20 19:23: Lactic Acid Level 3.00*H 10/21/20 23:15: Lactic Acid Level 0.86 Time of Focused Exam: 08:30 Respiratory: Chest Non Tender, Lungs Clear, Normal Breath Sounds, No Accessory Muscle Use, No Respiratory Distress Cardiovascular: Regular Rate, Rhythm, No Gallop, No Murmur, Normal Peripheral Pulses Skin: normal color, warm/dry Objective Exam Vital Signs Vital Signs Date Time Temp Pulse Resp B/P (MAP) Pulse Ox O2 Delivery O2 Flow Rate FiO2 10/23/20 12:25 35.6 104 26 132/84 (100) 91 Room Air Capillary Refill : Less Than 3 Seconds General Appearance: No Apparent Distress, Chronically ill, Obese HEENT: PERRL/EOMI, Pharynx Normal Neck: Normal Inspection, Non Tender, Supple Respiratory: Chest Non Tender, Lungs Clear, Normal Breath Sounds, No Accessory Muscle Use, No Respiratory Distress Cardiovascular: Regular Rate, Rhythm, No Gallop, No Murmur, Normal Peripheral Pulses Gastrointestinal: Normal Bowel Sounds, Non Tender, Soft Rectal: Deferred Extremity: Normal Inspection, Non Tender, No Calf Tenderness Neurologic/Psychiatric: Alert, Oriented x3, No Motor/Sensory Deficits, Normal Mood/Affect Skin: Normal Color, Warm/Dry Results/Procedures Lab Laboratory Tests 10/23/20 06:13 Patient resulted labs reviewed. Imaging: Reviewed Imaging Films, Reviewed Imaging Report Assessment/Plan Assessment and Plan Assess & Plan/Chief Complaint UTI continue antibiotic treatment- ceftriaxone L ureteral stent and stone f/u with Dr. Holland sepsis HTN 148/98 on 10/23 continue lisinopril, metoprolol, and nifedipine spinal canal stenosis at L2-L3 f/u with orthopedics lower back and hip pain continue pain medications- tylenol and tordol DVT prophylaxis lovenox hypokalemia 3.2 on 10/23 mildly anemic 12.2 on 10/23 continue home medications encourage IS use begin PT/OT C. diff continue treatment with vancomycin droplet precaution continue IV fluids SOB monitor vitals and labs provide supplemental O2 if needed obesity EDWINA LOPEZ DO 10/24/20 0512: Subjective Subjective/Events-last exam Pt very complicated Day #3 of hospital stay Has a stone and a stent placed C-diff colitis is still diarrhea Chronic back pain managed by Dr. Gustavo Ruiz Spine Surgeon Review of Systems General: Fatigue, Malaise Objective Exam General Appearance: No Apparent Distress, Chronically ill, Obese Respiratory: Lungs Clear Cardiovascular: Regular Rate, Rhythm Neurologic/Psychiatric: Alert, Oriented x3, Depressed Affect Assessment/Plan Assessment and Plan Assess & Plan/Chief Complaint C. difficile treatment UTI treatment Supportive care PT and OT Supervisory-Addendum Brief Verification & Attestation Participated in pt care: history, MDM, physical Personally performed: exam, history, MDM, supervision of care Care discussed with: Medical Student Procedures: n/a Results interpretation: Verified all documentation Verification and Attestation of Medical Student E/M Service A medical student performed and documented this service in my presence. I reviewed and verified all information documented by the medical student and made modifications to such information, when appropriate. I personally performed the physical exam and medical decision making. Edwina Lopez, Oct 24, 2020,05:10 KAVITA BROWN MED STUDENT Oct 23, 2020 12:02 EDWINA LOPEZ DO Oct 24, 2020 05:12
[2020-10-23 12:25] VITALS: BP 132/84
[2020-10-23] MEDS: HYDROcodone/APAP 5 MG/325 MG (LORTAB) TAB PO PRN ×2 (14:06→21:42)
[2020-10-23] MEDS ORDERED: NF-ESOM40C PO (15:11)
[2020-10-23 16:00] VITALS: BP 149/74
[2020-10-23] MEDS: cefTRIAXone 2,000 MG in WATER (STERILE) FOR INJECTION 20 ML IV SCH (17:05)
[2020-10-23 20:00] VITALS: BP 129/75
[2020-10-23] MEDS: FENOFIBRATE 134 MG (LOFIBRA) CAPSULE PO SCH (21:35)
[2020-10-23] MEDS: TAMSULOSIN 0.4 MG (FLOMAX) CAP PO SCH (21:35)
[2020-10-23 23:52] VITALS: BP 132/81
[2020-10-24] MEDS: 1/2 NS W/KCL 20 MEQ/L 1,000 ML IV SCH ×2 (00:20→06:25)
[2020-10-24 03:59] VITALS: BP 110/72
[2020-10-24] MEDS: VANCOMYCIN 125 MG CAPSULE PO SCH ×4 (04:17→21:31)
[2020-10-24 06:04] LABS: BASOPHILS % (AUTO) 1 % (0-10); EOSINOPHILS # (AUTO) 0.2 10^3/uL (0.0-0.3); EOSINOPHILS % (AUTO) 4 % (0-10); HEMATOCRIT 36 % (40-54); HEMOGLOBIN 11.6 g/dL (13.3-17.7); LYMPHOCYTES # (AUTO) 1.6 10^3/uL (1.0-4.0); LYMPHOCYTES % (AUTO) 27 % (12-44); MEAN CORPUSCULAR HEMOGLOBIN 28 pg (25-34); MEAN CORPUSCULAR HGB CONC 32 g/dL (32-36); MEAN CORPUSCULAR VOLUME 89 fL (80-99); MEAN PLATELET VOLUME 9.6 fL (9.0-12.2); MONOCYTES # (AUTO) 0.5 10^3/uL (0.0-1.0); MONOCYTES % (AUTO) 9 % (0-12); NEUTROPHILS # (AUTO) 3.4 10^3/uL (1.8-7.8); NEUTROPHILS % (AUTO) 58 % (42-75); PLATELET COUNT 198 10^3/uL (130-400); WHITE BLOOD COUNT 5.8 10^3/uL (4.3-11.0)
[2020-10-24 06:19] LABS: ALBUMIN 3.4 GM/DL (3.2-4.5)
[2020-10-24 06:20] LABS: POTASSIUM 3.8 MMOL/L (3.6-5.0)
[2020-10-24 06:21] LABS: CALCIUM 9.3 MG/DL (8.5-10.1)
[2020-10-24] MEDS: HYDROcodone/APAP 5 MG/325 MG (LORTAB) TAB PO PRN ×3 (06:23→22:03)
[2020-10-24] MEDS: PANTOPRAZOLE 40 MG (PROTONIX) TAB PO SCH (06:23)
[2020-10-24 06:24] LABS: BILIRUBIN,TOTAL 0.4 MG/DL (0.1-1.0)
[2020-10-24 06:26] LABS: CREATININE SERUM 0.74 MG/DL (0.60-1.30)
[2020-10-24 06:28] LABS: MAGNESIUM 1.7 MG/DL (1.6-2.4)
[2020-10-24] MEDS: POTASSIUM CL 10MEQ/50ML IVPB 50 ML IV SCH (06:31)
[2020-10-24] MEDS: KCL 20 MEQ TAB (K-DUR) PO SCH (06:32)
[2020-10-24] MEDS: inSUlin ASPART (NovoLOG) 1 UNIT/0.01 ML (CHARGE PER UNIT) SC SCH ×4 (06:32→20:37)
[2020-10-24] MEDS: MAGNESIUM 1 GM/100 ML IVPB 100 ML IV SCH ×3 (06:35→08:12)
[2020-10-24 07:50] VITALS: BP 132/75
[2020-10-24] MEDS: ENOXAPARIN 40 MG/0.4 ML (LOVENOX) SYR SQ SCH ×2 (08:10→21:31)
[2020-10-24] MEDS: ALLOPURINOL 100 MG (ZYLOPRIM) TAB PO SCH (08:10)
[2020-10-24] MEDS: DULoxetine 30 MG (CYMBALTA) CAP PO SCH (08:11)
[2020-10-24] MEDS: GABAPENTIN 600 MG (NEURONTIN) TAB PO SCH ×4 (08:11→21:31)
[2020-10-24] MEDS: ASPIRIN E.C. 81 MG (ECOTRIN) TAB PO SCH (08:11)
[2020-10-24] MEDS: rOPINIRole 5 MG TAB (REQUIP) PO SCH ×3 (08:11→21:31)
[2020-10-24] MEDS: NIFEdipine ER 60 MG (PROCARDIA XL) TAB PO SCH (08:11)
[2020-10-24] MEDS: FAMOTIDINE 20 MG (PEPCID) TABLET PO SCH (08:11)
[2020-10-24] MEDS: meTOprolol TARTRATE 25 MG (LOPRESSOR) TABLET PO SCH ×2 (08:11→21:31)
[2020-10-24] MEDS: lisINopril 10 MG (PRINIVIL) TABLET PO SCH (08:11)
[2020-10-24] MEDS: MESALAMINE 1.2 GM PO SCH (08:13)
--- NOTE | 2020-10-24 09:34 | Physical Therapy Daily Note ---
PT Daily Note-Current Subjective Patient agrees to PT. Mental Status Attachments: IV Transfers SCALE: Activities may be completed with or without assistive devices. 7-Bsszrjcang-tltfrac completes the activity by him/herself with no assistance from a helper. 5-Set-up or Clean-up Assistance-helper sets up or cleans up; patient completes activity. [place] assists only prior to or following the activity. 4-Supervision or Touching Assistance-helper provides verbal cues and/or touching/steadying and/or contact guard assistance as patient completes activity. Assistance may be provided throughout the activity or intermittently. 3-Partial/Moderate Assistance-helper does LESS THAN HALF the effort. [place] lifts, holds or supports trunk or limbs, but provides less than half the effort. 2-Substantial/Maximal Assistance-helper does MORE THAN HALF the effort. [place] lifts or holds trunk or limbs and provides more than half the effort. 2-Ccokxbiyy-mvzrps does ALL the effort. Patient does none of the effort to complete the activity. Or, the assistance of 2 or more helpers is required for the patient to complete the activity. If activity was not attempted, code reason: 7-Patient Refused. 9-Not Applicable-not attempted and the patient did not perform the activity before the current illness, exacerbation or injury. 10-Not Attempted due to Environmental Limitations-(lack of equipment, weather restraints, etc.). 88-Not Attempted due to Medical Conditions or Safety Concerns. Lying to Sitting/Side of Bed(Q: 6 Sit to Stand (QC): 4 Chair/Mzp-ht-Loagr Xfer(QC): 4 Toilet Transfer (QC): 4 Gait Training Does the Patient Walk?: Yes Distance: 50' Walk 10 feet (QC): 4 (SBA) Walk 50 ft with 2 Turns(QC): 4 (SBA) Walk 150 ft (QC): 7 Gait Assistive Device: FWW safe and functional with no deviation Exercises Seated Therapy Exercises: Ankle pumps, Long arc quads Seated Reps: 15 Assessment up in recliner with breakfast in situ. Increase as tolerated and allowed by patient. Patient declined to ambulate in hallway. PT Jewelry Appraiser Goals [facility] Goals PT [facility] Goals Time Frame: Nov 04, 2020 Roll Left & Right (QC): 6 Sit to Lying (QC): 6 Lying-Sitting on Side/Bed(QC): 6 Sit to Stand (QC): 6 Chair/Fez-kw-Bsycg Xfer(QC): 6 Toilet Transfer (QC): 6 Does the Patient Walk: Yes Walk 10 feet (QC): 6 Walk 50ft with 2 Turns (QC): 6 Walk 150 ft (QC): 6 PT Plan Treatment/Plan Treatment Plan: Continue Plan of Care Treatment Plan: Bed Mobility, Education, Functional Activity Joseline, Functional Strength, Gait, Safety, Therapeutic Exercise, Other Treatment Duration: Nov 04, 2020 Frequency: 6 times per week Estimated Hrs Per Day: .25 hour per day Patient and/or Family Agrees t: Yes Time/GCodes Time In: 747 Time Out: 802 Total Billed Treatment Time: 15 Total Billed Treatment 1 visit FA 15 min LUCA CONNELLY PT Oct 24, 2020 09:34
--- NOTE | 2020-10-24 10:57 | Progress Note - Hospitalist ---
KAVITA BROWN MED STUDENT 10/24/20 1057: Subjective HPI/CC On Admission Date Seen by Provider: Oct 24, 2020 Time Seen by Provider: 08:00 UTI, L ureteral stent and stone, sepsis, HTN Subjective/Events-last exam This is Dov a 49 yo male on day 4 of his hospital stay with the chief complaint of UTI, L ureteral stent and stone, sepsis, and HTN. Upon entering the room he was sitting up in his chair watching TV. He stated that sitting up helps with his back pain but he is now experiencing a burning sensation in his left thigh. He worked with PT/OT yesterday and stated that it went well and will work with them again today. He continues to have diarrhea as a symptom of C. diff but is doing much better this morning. His last BM was yesterday. Pt denied nausea or vomiting. He is experiencing SOB while at rest with an O2 saturation of 93% on RA. Review of Systems Pulmonary: Dyspnea Gastrointestinal: Diarrhea (last BM yesterday) Musculoskeletal: back pain (improved this AM), leg pain (burning sensation down his left leg) Focused Exam Lactate Level 10/21/20 19:23: Lactic Acid Level 3.00*H 10/21/20 23:15: Lactic Acid Level 0.86 Time of Focused Exam: 08:30 Respiratory: Chest Non Tender, Lungs Clear, Normal Breath Sounds, No Accessory Muscle Use Cardiovascular: Regular Rate, Rhythm, No Gallop, No Murmur, Normal Peripheral Pulses Skin: normal color, warm/dry Objective Exam Vital Signs Vital Signs Date Time Temp Pulse Resp B/P (MAP) Pulse Ox O2 Delivery O2 Flow Rate FiO2 10/24/20 08:00 Room Air 10/24/20 07:50 36.4 104 18 132/75 (94) 94 Capillary Refill : Less Than 3 Seconds General Appearance: No Apparent Distress, Chronically ill, Obese HEENT: PERRL/EOMI, Pharynx Normal Neck: Normal Inspection, Non Tender, Supple Respiratory: Chest Non Tender, Lungs Clear, Normal Breath Sounds, No Accessory Muscle Use Cardiovascular: Regular Rate, Rhythm, No Gallop, No Murmur, Normal Peripheral Pulses Gastrointestinal: Normal Bowel Sounds, Non Tender, Soft Rectal: Deferred Extremity: Normal Inspection, Non Tender, No Calf Tenderness Neurologic/Psychiatric: Alert, Oriented x3, Normal Mood/Affect Skin: Normal Color, Warm/Dry Results/Procedures Lab Laboratory Tests 8/24/21 05:32 Patient resulted labs reviewed. Imaging: Reviewed Imaging Films, Reviewed Imaging Report Assessment/Plan Assessment and Plan Assess & Plan/Chief Complaint UTI sepsis continue antibiotic treatment- ceftriaxone L ureteral stent and stone f/u with Dr. Holland HTN controlled at 110/72 on 10/24 continue lisinopril, metoprolol, and nifedipine spinal canal stenosis at L2-L3 f/u with orthopedics lower back and hip pain continue pain medications- tylenol, tordol, hydrocodone DVT prophylaxis lovenox hypokalemia resolved with potassium mildly anemic 11.6 on 10/24 continue home medications encourage IS use continue PT/OT C. diff continue treatment with vancomycin PO droplet precaution continue IV fluids SOB monitor vitals and labs provide supplemental O2 if needed obesity left thigh burning sensation increase gabapentin to 600mg TID EDWINA LOPEZ DO 10/25/20 0536: Subjective Subjective/Events-last exam Pt doing pretty well Having burning from his lumbar stenosis into his thigh so will increase his Gabapentin to QID SOB at rest Will heplock IV fluid C-diff diarrhea is improved PT and OT not working with him much but he is moving Review of Systems General: Fatigue, Malaise Objective Exam General Appearance: No Apparent Distress, WD/WN, Chronically ill Respiratory: Lungs Clear Cardiovascular: Regular Rate, Rhythm Neurologic/Psychiatric: Alert, Oriented x3 Assessment/Plan Assessment and Plan Assess & Plan/Chief Complaint Supportive care Monitor closely Supervisory-Addendum Brief Verification & Attestation Participated in pt care: history, MDM, physical Personally performed: exam, history, MDM, supervision of care Care discussed with: Medical Student Procedures: n/a Results interpretation: Verified all documentation Verification and Attestation of Medical Student E/M Service A medical student performed and documented this service in my presence. I reviewed and verified all information documented by the medical student and made modifications to such information, when appropriate. I personally performed the physical exam and medical decision making. Edwina Lopez, Oct 25, 2020,05:35 KAVITA BROWN MED STUDENT Oct 24, 2020 10:57 EDWINA LOPEZ DO Oct 25, 2020 05:36
[2020-10-24 11:32] VITALS: BP 121/77
[2020-10-24] MEDS: KETOROLAC 30 MG/ML VIAL IVP PRN (13:59)
[2020-10-24 16:00] VITALS: BP 151/90
[2020-10-24] MEDS: cefTRIAXone 2,000 MG in WATER (STERILE) FOR INJECTION 20 ML IV SCH (16:57)
[2020-10-24] MEDS ORDERED: PATIENT MAY USE OWN MEDS, ALL MC SCH (17:45)
[2020-10-24 19:38] VITALS: BP 155/77
[2020-10-24] MEDS: TAMSULOSIN 0.4 MG (FLOMAX) CAP PO SCH (21:31)
[2020-10-24] MEDS: FENOFIBRATE 134 MG (LOFIBRA) CAPSULE PO SCH (21:31)
[2020-10-25] VITALS (7 sets, daily range): BP systolic 119–163; BP diastolic 82–100
[2020-10-25] MEDS: VANCOMYCIN 125 MG CAPSULE PO SCH ×4 (04:35→21:18)
[2020-10-25] MEDS: inSUlin ASPART (NovoLOG) 1 UNIT/0.01 ML (CHARGE PER UNIT) SC SCH ×5 (05:39→21:13)
[2020-10-25 06:08] LABS: BASOPHILS % (AUTO) 1 % (0-10); EOSINOPHILS # (AUTO) 0.2 10^3/uL (0.0-0.3); EOSINOPHILS % (AUTO) 3 % (0-10); HEMATOCRIT 37 % (40-54); HEMOGLOBIN 11.7 g/dL (13.3-17.7); LYMPHOCYTES # (AUTO) 1.6 10^3/uL (1.0-4.0); LYMPHOCYTES % (AUTO) 26 % (12-44); MEAN CORPUSCULAR HEMOGLOBIN 29 pg (25-34); MEAN CORPUSCULAR HGB CONC 32 g/dL (32-36); MEAN CORPUSCULAR VOLUME 90 fL (80-99); MEAN PLATELET VOLUME 9.7 fL (9.0-12.2); MONOCYTES # (AUTO) 0.6 10^3/uL (0.0-1.0); MONOCYTES % (AUTO) 10 % (0-12); NEUTROPHILS # (AUTO) 3.4 10^3/uL (1.8-7.8); NEUTROPHILS % (AUTO) 58 % (42-75); PLATELET COUNT 213 10^3/uL (130-400); WHITE BLOOD COUNT 5.9 10^3/uL (4.3-11.0)
[2020-10-25 06:26] LABS: ALBUMIN 3.6 GM/DL (3.2-4.5)
[2020-10-25 06:27] LABS: POTASSIUM 3.8 MMOL/L (3.6-5.0)
[2020-10-25 06:28] LABS: CALCIUM 9.5 MG/DL (8.5-10.1)
[2020-10-25 06:29] LABS: TOTAL PROTEIN 6.5 GM/DL (6.4-8.2)
[2020-10-25] MEDS: POTASSIUM CL 10MEQ/50ML IVPB 50 ML IV SCH (06:30)
[2020-10-25 06:31] LABS: BILIRUBIN,TOTAL 0.5 MG/DL (0.1-1.0)
[2020-10-25] MEDS: KCL 20 MEQ TAB (K-DUR) PO SCH (06:31)
[2020-10-25 06:32] LABS: CREATININE SERUM 0.78 MG/DL (0.60-1.30)
[2020-10-25] MEDS: MAGNESIUM 1 GM/100 ML IVPB 100 ML IV SCH (06:47)
[2020-10-25] MEDS: PANTOPRAZOLE 40 MG (PROTONIX) TAB PO SCH (06:51)
[2020-10-25] MEDS: MESALAMINE 1.2 GM PO SCH (06:51)
[2020-10-25] MEDS: rOPINIRole 5 MG TAB (REQUIP) PO SCH ×3 (09:26→21:18)
[2020-10-25] MEDS: ENOXAPARIN 40 MG/0.4 ML (LOVENOX) SYR SQ SCH ×2 (09:26→21:19)
[2020-10-25] MEDS: FAMOTIDINE 20 MG (PEPCID) TABLET PO SCH (09:26)
[2020-10-25] MEDS: DULoxetine 30 MG (CYMBALTA) CAP PO SCH (09:26)
[2020-10-25] MEDS: meTOprolol TARTRATE 25 MG (LOPRESSOR) TABLET PO SCH ×2 (09:27→21:18)
[2020-10-25] MEDS: GABAPENTIN 600 MG (NEURONTIN) TAB PO SCH ×4 (09:27→21:18)
[2020-10-25] MEDS: NIFEdipine ER 60 MG (PROCARDIA XL) TAB PO SCH (09:27)
[2020-10-25] MEDS: ALLOPURINOL 100 MG (ZYLOPRIM) TAB PO SCH (09:27)
[2020-10-25] MEDS: lisINopril 10 MG (PRINIVIL) TABLET PO SCH (09:27)
[2020-10-25] MEDS: ASPIRIN E.C. 81 MG (ECOTRIN) TAB PO SCH (09:27)
[2020-10-25] MEDS: HYDROcodone/APAP 5 MG/325 MG (LORTAB) TAB PO PRN ×2 (09:31→14:19)
--- NOTE | 2020-10-25 12:52 | Physical Therapy Daily Note ---
PT Daily Note-Current Subjective Pt requests BR upon arrival. Pt agreeable to treatment. Mental Status Patient Orientation: Person, Place Transfers SCALE: Activities may be completed with or without assistive devices. 3-Adrpmloavg-povngsu completes the activity by him/herself with no assistance from a helper. 5-Set-up or Clean-up Assistance-helper sets up or cleans up; patient completes activity. [place] assists only prior to or following the activity. 4-Supervision or Touching Assistance-helper provides verbal cues and/or touch ing/steadying and/or contact guard assistance as patient completes activity. Assistance may be provided throughout the activity or intermittently. 3-Partial/Moderate Assistance-helper does LESS THAN HALF the effort. [place] lifts, holds or supports trunk or limbs, but provides less than half the effort. 2-Substantial/Maximal Assistance-helper does MORE THAN HALF the effort. [place] lifts or holds trunk or limbs and provides more than half the effort. 0-Vumepogog-kzarkk does ALL the effort. Patient does none of the effort to complete the activity. Or, the assistance of 2 or more helpers is required for the patient to complete the activity. If activity was not attempted, code reason: 7-Patient Refused. 9-Not Applicable-not attempted and the patient did not perform the activity before the current illness, exacerbation or injury. 10-Not Attempted due to Environmental Limitations-(lack of equipment, weather restraints, etc.). 88-Not Attempted due to Medical Conditions or Safety Concerns. Pt able to stand from bed, toilet and chair with great effort. (B) LE shaking as pt struggled to stand. Once pt was up he was able walk with less shaking in LE's. Gait Training Gait Assistive Device: FWW Pt amb with FWW and SBA x 50ft in room. Exercises Seated Therapy Exercises: Ankle pumps, Long arc quads, Hip flexion Seated Reps: 30 Assessment Current Status: Fair Progress Pt weak with standing from seated position. Pt was incontinent of bowels in bed. Pt toileted and cleaned at mod (I) level. Pt seated in recliner and resting post therapy session. Call light in reach and all needs met. PT Automobile Service Station Attendant Goals Automobile Service Station Attendant Goals PT Correction Goals Time Frame: Nov 04, 2020 Roll Left & Right (QC): 6 Sit to Lying (QC): 6 Lying-Sitting on Side/Bed(QC): 6 Sit to Stand (QC): 6 Chair/Zxx-cd-Rrzzi Xfer(QC): 6 Toilet Transfer (QC): 6 Does the Patient Walk: Yes Walk 10 feet (QC): 6 Walk 50ft with 2 Turns (QC): 6 Walk 150 ft (QC): 6 PT Plan Treatment/Plan Treatment Plan: Continue Plan of Care Treatment Plan: Bed Mobility, Education, Functional Activity Joseline, Functional Strength, Gait, Safety, Therapeutic Exercise, Other Treatment Duration: Nov 04, 2020 Frequency: 6 times per week Estimated Hrs Per Day: .25 hour per day Patient and/or Family Agrees t: Yes Time/GCodes Time In: 810 Time Out: 835 Total Billed Treatment Time: 25 Total Billed Treatment 1, FA x 15', Gait x 10' CHELLE FARNSWORTH CPTA Oct 25, 2020 12:52
--- NOTE | 2020-10-25 14:38 | Occupational Therapy Eval ---
OT Evaluation-General/PLF Medical Diagnosis Admission Date Oct 21, 2020 at 22:20 Medical Diagnosis: UTI/left ureteral stent/stone/sepsis/HTN,DM Onset Date: Oct 21, 2020 Therapy Diagnosis Therapy Diagnosis: Weakness, Decreased ADL skills Height/Weight Height (Feet): 5 Height (Inches): 10.00 Weight (Pounds): 330 Weight (Ounces): 3.0 Precautions Precautions/Isolations: Contact Isolation, Fall Prevention Weight Bear Status Weight Bearing Restriction: Weight Bearing/Tolerated Referral Physician: Sasha Referral Reason: Activity Tolerance, Self Care, Evaluation/Treatment, Strengthening/ROM Medical History Pertinent Medical History: CAD, COPD, DM, GERD, HTN, Renal Insufficiency, Smoking Additional Medical History Gout, BPH, Back surgery Current History Pt. became too weak and unsteady at home to walk. An ambulance was called. Pt. came to ER with UTI associated with retained ureteral stent. Reviewed History: Yes Social History Home: Apartment Current Living Status: Children (Daughter) Entry Into Home: Stairs With Railing Steps Into Home: 16 ([facility]- 7 steps up, 9 steps down.) ADL-Prior Level of Function SCALE: Activities may be completed with or without assistive devices. 3-Vquzbjuylg-oxedprx completes the activity by him/herself with no assistance from a helper. 5-Set-up or Clean-up Assistance-helper sets up or cleans up; patient completes activity. [place] assists only prior to or following the activity. 4-Supervision or Touching Assistance-helper provides verbal cues and/or touching/steadying and/or contact guard assistance as patient completes activity. Assistance may be provided throughout the activity or intermittently. 3-Partial/Moderate Assistance-helper does LESS THAN HALF the effort. [place] lifts, holds or supports trunk or limbs, but provides less than half the effort. 2-Substantial/Maximal Assistance-helper does MORE THAN HALF the effort. [place] lifts or holds trunk or limbs and provides more than half the effort. 6-Fzuylloea-kvdzfk does ALL the effort. Patient does none of the effort to complete the activity. Or, the assistance of 2 or more helpers is required for the patient to complete the activity. If activity was not attempted, code reason: 7-Patient Refused. 9-Not Applicable-not attempted and the patient did not perform the activity before the current illness, exacerbation or injury. 10-Not Attempted due to Environmental Limitations-(lack of equipment, weather restraints, etc.). 88-Not Attempted due to Medical Conditions or Safety Concerns. ADL PLOF Comments Pt. states that he lives in an apartment with his daughter. He was able to dress self, but required assistance for bathing. Self Care: Needed Some Help Functional Cognition: Unknown DME/Equipment: Tub/Shower Drive Self: Yes OT Current Status Subjective Pt. reports pain in back, but is unable to rate pain. Pt. states that he has had pain medication. Mental Status/Objective Patient Orientation: Person, Place Current Hand Dominance: Left Upper Extremity ROM WFL Upper Extremity Strength Left- 4/5 Right- 3/5 ADL-Treatment Eating (QC): 5 (Per pt.) Shower/Bathe Self (QC): 7 (Pt. agrees to shower at first, but then declines, stating that he showered yesterday, and doesn't feel like doing today.) On/Off Footwear (QC): 2 (Pt. unable to doff/don slipper socks. Pt. uses slip on shoes at home.) Toileting Hygiene (QC): 4 Other Treatments Pt. recently hospitalized. He states that he was receiving some home health OT, and they came approximately 5 times. They assisted him with sponge baths at home. Pt. has a tub/shower, but needs a shower chair. He states that he was working on getting one. Pt. also states that he was "working on getting" a walker as well. Pt. states that PT was coming over, but is unable to state if other assistance was coming in the home. Pt. 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 Pt transferred supine-sit with SBA. He is unable to doff/don slipper socks. He stood at walker with CGA. Noted pt. very "shaky." He ambulates to toilet with min assist. Transferred to toilet and able to toilet self after BM. Stood again and ambulated back to bed with min assist. Transferred to bed with CGA. OT provided hand roll up machine operator. All needs met. Education OT Patient Education: Correct positioning, Modified ADL techniques, Progress toward Goal/Update tx plan, Purpose of tx/functional activities, Reviewed precautions, Rehab process, Transfer techniques Teaching Recipient: Patient Teaching Methods: Demonstration, Discussion Response to Teaching: Verbalize Understanding, Return Demonstration OT Skilled Nursing Goals Skilled Nursing Goals Time Frame: Nov 08, 2020 Eating (QC): 6 Oral Hygiene (QC): 6 Toileting Hygiene (QC): 6 Shower/Bathe Self (QC): 4 Upper Body Dressing (QC): 5 Lower Body Dressing (QC): 4 On/Off Footwear (QC): 4 (With AE as needed.) Additional Goals: 1-Demonstrate ADL Tasks, 2-Verbalize Understanding, 3- ImproveStrength/Joseline 1=Demonstrate adherence to instructed precautions during ADL tasks. 2=Patient will verbalize/demonstrate understanding of assistive devices/modifications for ADL. 3=Patient will improve strength/tolerance for activity to enable patient to perform ADL's. OT Education/Plan Problem List/Assessment Assessment: Decreased Activ Tolerance, Impaired I ADL's, Impaired Self-Care Skills Discharge Recommendations Plan/Recommendations: Continue POC Therapy Discharge Recommendati: Post Acute OT Equpiment Recommendations-D/C: Hip Kit Treatment Plan/Plan of Care Treatment,Training & Education: Yes Patient would benefit from OT for education, treatment and training to promote independence in ADL's, mobility, safety and/or upper extremity function for ADL's. Plan of Care: ADL Retraining, Functional Mobility, UE Funct Exercise/Act Treatment Duration: Nov 08, 2020 Frequency: 5 times per week Estimated Hrs Per Day: .25 hour per day Agreement: Yes Rehab Potential: Fair Time/GCodes Start Time: 13:15 Stop Time: 13:45 Total Time Billed (hr/min): 30 Billed Treatment Time 1, EVM x 15minutes, ADL x 15minutes ERLIN LARSEN OT Oct 25, 2020 14:38
[2020-10-25] MEDS: cefTRIAXone 2,000 MG in WATER (STERILE) FOR INJECTION 20 ML IV SCH (16:56)
[2020-10-25] MEDS: FENOFIBRATE 134 MG (LOFIBRA) CAPSULE PO SCH (21:18)
[2020-10-25] MEDS: TAMSULOSIN 0.4 MG (FLOMAX) CAP PO SCH (21:19)
--- NOTE | 2020-10-25 21:32 | Progress Note - Hospitalist ---
Subjective HPI/CC On Admission Date Seen by Provider: Oct 25, 2020 Time Seen by Provider: 10:00 UTI, L ureteral stent and stone, sepsis, HTN Subjective/Events-last exam Pt has a very flat affect PT and OT ordered Rehab may be an option Doesnt do a lot with therapy Gabapentin has helped with the pain I did speak with Dr. Ruiz about him and he is a poor surgical candidate Review of Systems General: Fatigue, Malaise Musculoskeletal: back pain, leg pain Focused Exam Time of Focused Exam: 08:30 Objective Exam Vital Signs Vital Signs Date Time Temp Pulse Resp B/P (MAP) Pulse Ox O2 Delivery O2 Flow Rate FiO2 10/26/20 03:05 36.6 111 26 132/90 (104) 90 Room Air Capillary Refill : Less Than 3 Seconds General Appearance: No Apparent Distress, WD/WN, Chronically ill, Obese Respiratory: Lungs Clear Cardiovascular: Regular Rate, Rhythm Neurologic/Psychiatric: Alert, Oriented x3, Depressed Affect Results/Procedures Lab Laboratory Tests 10/25/20 05:55 Patient resulted labs reviewed. Imaging: Reviewed Imaging Films, Reviewed Imaging Report Assessment/Plan Assessment and Plan Assess & Plan/Chief Complaint Assessment: UTI C. difficile colitis Severe incapacitating back pain Morbid obesity Lack of motivation Plan: C. difficile treatment Pain control Monitor closely XAVI LOPEZ DO Oct 25, 2020 21:32
[2020-10-26 03:05] VITALS: BP 132/90
[2020-10-26] MEDS: VANCOMYCIN 125 MG CAPSULE PO SCH ×4 (04:45→20:58)
[2020-10-26] MEDS: HYDROcodone/APAP 5 MG/325 MG (LORTAB) TAB PO PRN ×3 (04:47→20:54)
[2020-10-26 05:56] LABS: BASOPHILS # (AUTO) 0.1 10^3/uL (0.0-0.1); BASOPHILS % (AUTO) 1 % (0-10); EOSINOPHILS # (AUTO) 0.2 10^3/uL (0.0-0.3); EOSINOPHILS % (AUTO) 4 % (0-10); HEMATOCRIT 37 % (40-54); HEMOGLOBIN 11.7 g/dL (13.3-17.7); LYMPHOCYTES # (AUTO) 1.8 10^3/uL (1.0-4.0); LYMPHOCYTES % (AUTO) 27 % (12-44); MEAN CORPUSCULAR HEMOGLOBIN 28 pg (25-34); MEAN CORPUSCULAR HGB CONC 32 g/dL (32-36); MEAN CORPUSCULAR VOLUME 89 fL (80-99); MEAN PLATELET VOLUME 9.8 fL (9.0-12.2); MONOCYTES # (AUTO) 0.8 10^3/uL (0.0-1.0); MONOCYTES % (AUTO) 12 % (0-12); NEUTROPHILS # (AUTO) 3.9 10^3/uL (1.8-7.8); NEUTROPHILS % (AUTO) 56 % (42-75); PLATELET COUNT 237 10^3/uL (130-400); WHITE BLOOD COUNT 6.9 10^3/uL (4.3-11.0)
[2020-10-26] MEDS: inSUlin ASPART (NovoLOG) 1 UNIT/0.01 ML (CHARGE PER UNIT) SC SCH ×4 (06:07→20:04)
[2020-10-26 06:09] LABS: ALBUMIN 3.6 GM/DL (3.2-4.5); POTASSIUM 3.7 MMOL/L (3.6-5.0)
[2020-10-26 06:10] LABS: CALCIUM 9.7 MG/DL (8.5-10.1)
[2020-10-26] MEDS: POTASSIUM CL 10MEQ/50ML IVPB 50 ML IV SCH (06:10)
[2020-10-26 06:11] LABS: TOTAL PROTEIN 6.6 GM/DL (6.4-8.2)
[2020-10-26 06:13] LABS: BILIRUBIN,TOTAL 0.5 MG/DL (0.1-1.0)
[2020-10-26 06:15] LABS: CREATININE SERUM 0.82 MG/DL (0.60-1.30)
--- NOTE | 2020-10-26 06:16 | Progress Note - Hospitalist ---
KAVITA BROWN MED STUDENT 10/26/20 0616: Subjective HPI/CC On Admission Date Seen by Provider: Oct 25, 2020 Time Seen by Provider: 07:30 UTI, L ureteral stent and stone, sepsis, HTN Subjective/Events-last exam This is Dov a 49 yo male on day 5 of his hospital stay with the chief complaint of UTI, L ureteral stent and stone, sepsis, and HTN. Upon entering the room he was sitting in his chair tired after working with PT. He was calm, cooperative, and engaged with a flat effect during questioning. Pt stated that he was experiencing SOB at rest and was at 91% O2 saturation on RA. He is still experiencing pain in his back and bilateral legs but stated that the increase in gabapentin was helping with the burning pain in his legs. He continues to struggle with the symptoms of c. diff. He had diarrhea this morning but stated that he was able to sleep throughout the night without having to wake up. Review of Systems Gastrointestinal: Diarrhea Musculoskeletal: back pain, leg pain Neurological: Weakness Focused Exam Time of Focused Exam: 08:30 Respiratory: Chest Non Tender, Lungs Clear, Normal Breath Sounds, No Accessory Muscle Use Cardiovascular: No Edema, No Gallop, No Murmur, Normal Peripheral Pulses, Tachycardia Skin: normal color, warm/dry Objective Exam Vital Signs Vital Signs Date Time Temp Pulse Resp B/P (MAP) Pulse Ox O2 Delivery O2 Flow Rate FiO2 10/26/20 03:05 36.6 111 26 132/90 (104) 90 Room Air Capillary Refill : Less Than 3 Seconds General Appearance: No Apparent Distress, WD/WN, Chronically ill, Obese HEENT: PERRL/EOMI, Pharynx Normal Neck: Normal Inspection, Non Tender, Supple Respiratory: Chest Non Tender, Lungs Clear, Normal Breath Sounds, No Accessory Muscle Use Cardiovascular: No Edema, No Gallop, No Murmur, Normal Peripheral Pulses, Tachycardia Gastrointestinal: No Pulsatile Mass, Non Tender, Soft Rectal: Deferred Back: Vertebral Tenderness (lumbar) Extremity: Normal Inspection, Non Tender, No Calf Tenderness, No Pedal Edema Neurologic/Psychiatric: Alert, Oriented x3, No Motor/Sensory Deficits, Depressed Affect, Motor Weakness Skin: Normal Color, Warm/Dry Results/Procedures Lab Laboratory Tests 10/26/20 05:30 Patient resulted labs reviewed. Imaging: Reviewed Imaging Films, Reviewed Imaging Report Assessment/Plan Assessment and Plan Assess & Plan/Chief Complaint UTI sepsis continue antibiotic treatment- ceftriaxone L ureteral stent and stone f/u with Dr. Holland HTN uncontrolled at 163/98 on 10/25 continue lisinopril, metoprolol, and nifedipine spinal canal stenosis at L2-L3 f/u with orthopedics lower back pain continue pain medications- tylenol, tordol, hydrocodone DVT prophylaxis lovenox hypokalemia resolved with potassium mildly anemic 11.7 on 10/25 continue home medications encourage IS use continue PT/OT C. diff continue treatment with vancomycin PO droplet precaution continue IV fluids SOB monitor vitals and labs provide supplemental O2 if needed obesity left thigh burning sensation continue gabapentin 600mg TID tachycardia HR of 107 on 10/25 motor weakness depressed effect possible consult with constance after D/C EDWINA LOPEZ DO 10/27/20 0442: Subjective Subjective/Events-last exam Pt doing a little better Walked with PT Needs intermediate placement Rocephin and Vanc maintained for antibiotics so will discontinue Rocephin after reviewing the cultures Having some dysuria so will order a urinalysis Review of Systems General: Fatigue Gastrointestinal: Diarrhea Musculoskeletal: back pain Objective Exam General Appearance: No Apparent Distress, WD/WN, Chronically ill, Obese Respiratory: Lungs Clear, Normal Breath Sounds Cardiovascular: Regular Rate, Rhythm, Tachycardia Neurologic/Psychiatric: Alert, Oriented x3, Depressed Affect Assessment/Plan Assessment and Plan Assess & Plan/Chief Complaint C. difficile treatment Supportive care Needs intermediate Supervisory-Addendum Brief Verification & Attestation Participated in pt care: history, MDM, physical Personally performed: exam, history, MDM, supervision of care Care discussed with: Medical Student Procedures: n/a Results interpretation: Verified all documentation Verification and Attestation of Medical Student E/M Service A medical student performed and documented this service in my presence. I reviewed and verified all information documented by the medical student and made modifications to such information, when appropriate. I personally performed the physical exam and medical decision making. Edwina Lopez, Oct 27, 2020,04:40 KAVITA BROWN MED STUDENT Oct 26, 2020 06:16 EDWINA LOPEZ DO Oct 27, 2020 04:42
[2020-10-26] MEDS: KCL 20 MEQ TAB (K-DUR) PO SCH (06:18)
[2020-10-26 06:36] LABS: MAGNESIUM 1.8 MG/DL (1.6-2.4)
[2020-10-26] MEDS: MAGNESIUM 1 GM/100 ML IVPB 100 ML IV SCH (06:41)
[2020-10-26] MEDS: MESALAMINE 1.2 GM PO SCH (06:48)
[2020-10-26] MEDS: PANTOPRAZOLE 40 MG (PROTONIX) TAB PO SCH (06:48)
[2020-10-26 08:00] VITALS: BP 124/88
[2020-10-26] MEDS: rOPINIRole 5 MG TAB (REQUIP) PO SCH ×3 (08:20→20:54)
[2020-10-26] MEDS: ASPIRIN E.C. 81 MG (ECOTRIN) TAB PO SCH (08:20)
[2020-10-26] MEDS: DULoxetine 30 MG (CYMBALTA) CAP PO SCH (08:20)
[2020-10-26] MEDS: FAMOTIDINE 20 MG (PEPCID) TABLET PO SCH (08:20)
[2020-10-26] MEDS: lisINopril 10 MG (PRINIVIL) TABLET PO SCH (08:20)
[2020-10-26] MEDS: ENOXAPARIN 40 MG/0.4 ML (LOVENOX) SYR SQ SCH ×2 (08:20→20:54)
[2020-10-26] MEDS: GABAPENTIN 600 MG (NEURONTIN) TAB PO SCH ×4 (08:21→20:54)
[2020-10-26] MEDS: NIFEdipine ER 60 MG (PROCARDIA XL) TAB PO SCH (08:21)
[2020-10-26] MEDS: meTOprolol TARTRATE 25 MG (LOPRESSOR) TABLET PO SCH ×2 (08:21→20:54)
[2020-10-26] MEDS: ALLOPURINOL 100 MG (ZYLOPRIM) TAB PO SCH (08:21)
--- NOTE | 2020-10-26 10:00 | Physical Therapy Daily Note ---
PT Daily Note-Current Subjective Patient agrees to PT. More alert and talkative on this date. Mental Status Patient Orientation: Person, Time, Situation Transfers SCALE: Activities may be completed with or without assistive devices. 9-Escdssssek-klaelul completes the activity by him/herself with no assistance from a helper. 5-Set-up or Clean-up Assistance-helper sets up or cleans up; patient completes activity. [place] assists only prior to or following the activity. 4-Supervision or Touching Assistance-helper provides verbal cues and/or touching/steadying and/or contact guard assistance as patient completes activity. Assistance may be provided throughout the activity or intermittently. 3-Partial/Moderate Assistance-helper does LESS THAN HALF the effort. [place] lifts, holds or supports trunk or limbs, but provides less than half the effort. 2-Substantial/Maximal Assistance-helper does MORE THAN HALF the effort. [place] lifts or holds trunk or limbs and provides more than half the effort. 7-Dzrohttvz-ebqtwk does ALL the effort. Patient does none of the effort to complete the activity. Or, the assistance of 2 or more helpers is required for the patient to complete the activity. If activity was not attempted, code reason: 7-Patient Refused. 9-Not Applicable-not attempted and the patient did not perform the activity before the current illness, exacerbation or injury. 10-Not Attempted due to Environmental Limitations-(lack of equipment, weather restraints, etc.). 88-Not Attempted due to Medical Conditions or Safety Concerns. Lying to Sitting/Side of Bed(Q: 6 Sit to Stand (QC): 4 (SBA) Chair/Ikr-ml-Gvata Xfer(QC): 4 (SBA) Toilet Transfer (QC): 4 (SBA) PT did assist patient with cleansing after BM Gait Training Does the Patient Walk?: Yes Distance: 150' in room Walk 10 feet (QC): 4 (SBA) Walk 50 ft with 2 Turns(QC): 4 (SBA) Walk 150 ft (QC): 4 (SBA) Gait Assistive Device: FWW safe and functional with FWW use/initially patient did "shake" total body, however, improved during session. Exercises Seated Therapy Exercises: Ankle pumps, Long arc quads Seated Reps: 15 (x 3) Assessment Patient much improved on this date. Increase activity as tolerated by patient. PT Microbial Specialist Goals Correction Goals PT Microbial Specialist Goals Time Frame: Nov 04, 2020 Roll Left & Right (QC): 6 Sit to Lying (QC): 6 Lying-Sitting on Side/Bed(QC): 6 Sit to Stand (QC): 6 Chair/Pel-oe-Nedqf Xfer(QC): 6 Toilet Transfer (QC): 6 Does the Patient Walk: Yes Walk 10 feet (QC): 6 Walk 50ft with 2 Turns (QC): 6 Walk 150 ft (QC): 6 PT Plan Treatment/Plan Treatment Plan: Continue Plan of Care Treatment Plan: Bed Mobility, Education, Functional Activity Joseline, Functional Strength, Gait, Safety, Therapeutic Exercise, Other Treatment Duration: Nov 04, 2020 Frequency: 6 times per week Estimated Hrs Per Day: .25 hour per day Patient and/or Family Agrees t: Yes Time/GCodes Time In: 813 Time Out: 836 Total Billed Treatment Time: 23 Total Billed Treatment 1 visit FA 14 min EX 9 min ULCA CONNELLY PT Oct 26, 2020 10:00
[2020-10-26 12:00] VITALS: BP 99/64
--- NOTE | 2020-10-26 13:21 | Progress Note - Hospitalist ---
KAVITA BROWN MED STUDENT 10/26/20 1321: Subjective HPI/CC On Admission Date Seen by Provider: Oct 26, 2020 Time Seen by Provider: 08:15 UTI, L ureteral stent and stone, sepsis, HTN Subjective/Events-last exam This is Dov a 49 yo male on day 6 of his hospital stay with the chief complaint of UTI, L ureteral stent and stone, sepsis, and HTN. Upon entering the room he was sitting in his chair watching TV obviously worn out after working with PT. He was calm, cooperative, and engaged during questioning in an improved mood today. Pt stated that he is still having minimal SOB at rest with an O2 sturation of 90% on RA. He stated that he was able to walk to the door multiple times with PT and was very excited about being able to do this. He stated that his BMs are starting to firm up but was concerned with the dark green color. He had concerns that it burned to urinate starting last night. Review of Systems General: Fatigue Pulmonary: Dyspnea Genitourinary: Dysuria Focused Exam Time of Focused Exam: 08:30 Respiratory: Chest Non Tender, Lungs Clear, Normal Breath Sounds, No Accessory Muscle Use Cardiovascular: Regular Rate, Rhythm, No Edema, No Gallop, No Murmur, Normal Peripheral Pulses Skin: normal color, warm/dry Objective Exam Vital Signs Vital Signs Date Time Temp Pulse Resp B/P (MAP) Pulse Ox O2 Delivery O2 Flow Rate FiO2 10/26/20 12:00 35.4 108 20 99/64 (76) 96 Room Air Capillary Refill : Less Than 3 Seconds General Appearance: No Apparent Distress, WD/WN, Chronically ill, Obese HEENT: PERRL/EOMI, Pharynx Normal Neck: Normal Inspection, Non Tender, Supple Respiratory: Chest Non Tender, Lungs Clear, Normal Breath Sounds, No Accessory Muscle Use Cardiovascular: Regular Rate, Rhythm, No Edema, No Gallop, No Murmur Gastrointestinal: Normal Bowel Sounds, Non Tender, Soft Rectal: Deferred Extremity: Normal Inspection, Non Tender, No Calf Tenderness, No Pedal Edema Neurologic/Psychiatric: Alert, Oriented x3, No Motor/Sensory Deficits, Normal Mood/Affect Skin: Normal Color, Warm/Dry Results/Procedures Lab Laboratory Tests 10/26/20 05:30 Patient resulted labs reviewed. Imaging: Reviewed Imaging Films, Reviewed Imaging Report Assessment/Plan Assessment and Plan Assess & Plan/Chief Complaint UTI sepsis continue antibiotic treatment- ceftriaxone L ureteral stent and stone f/u with Dr. Holland HTN controlled at 132/90 on 10/26 continue lisinopril, metoprolol, and nifedipine spinal canal stenosis at L2-L3 f/u with orthopedics lower back pain continue pain medications- tylenol, tordol, hydrocodone -resolved DVT prophylaxis continue lovenox hypokalemia resolved with potassium mildly anemic 11.7 on 10/25 continue home medications encourage IS use C. diff continue treatment with vancomycin PO droplet precaution continue IV fluids SOB monitor vitals and labs provide supplemental O2 if needed obesity left thigh burning sensation- resolved continue gabapentin 600mg TID tachycardia HR of 111 on 10/26 motor weakness depressed effect possible consult with constance after D/C possible rehab consult encourage ambulation continue working with PT/OT EDWINA LOPEZ DO 10/27/20 0557: Subjective Subjective/Events-last exam Pt doing a little better Walked with PT Needs custodial placement Rocephin and Vanc maintained for antibiotics so will discontinue Rocephin after reviewing the cultures Having some dysuria so will order a urinalysis Review of Systems General: Fatigue Objective Exam General Appearance: No Apparent Distress, WD/WN, Chronically ill, Obese Cardiovascular: Regular Rate, Rhythm Neurologic/Psychiatric: Alert, Oriented x3, Depressed Affect Assessment/Plan Assessment and Plan Assess & Plan/Chief Complaint DC Rocephin Continue medication Supervisory-Addendum Brief Verification & Attestation Participated in pt care: history, MDM, physical Personally performed: exam, history, MDM, supervision of care Care discussed with: Medical Student Procedures: n/a Results interpretation: Verified all documentation Verification and Attestation of Medical Student E/M Service A medical student performed and documented this service in my presence. I reviewed and verified all information documented by the medical student and made modifications to such information, when appropriate. I personally performed the physical exam and medical decision making. Edwina Lopez, Oct 27, 2020,05:56 KAVITA BROWN MED STUDENT Oct 26, 2020 13:21 EDWINA LOPEZ DO Oct 27, 2020 05:57
--- NOTE | 2020-10-26 13:58 | Occupational Ther Daily Note ---
OT Current Status-Daily Note Subjective Pt. alert in recliner, said he was doing well. Pt. agreed to therapy. Mental Status/Objective Patient Orientation: Person, Place, Time, Situation ADL-Treatment Therapy Code Descriptions/Definitions Functional [place] Measure: 0=Not Assessed/NA 4=Minimal Assistance 1=Total Assistance 5=Supervision or Setup 2=Maximal Assistance 6=Modified [place] 3=Moderate Assistance 7=Complete IndependenceSCALE: Activities may be completed with or without assistive devices. 8-Bivepihxbo-edtcedl completes the activity by him/herself with no assistance from a helper. 5-Set-up or Clean-up Assistance-helper sets up or cleans up; patient completes activity. [place] assists only prior to or following the activity. 4-Supervision or Touching Assistance-helper provides verbal cues and/or touching/steadying and/or contact guard assistance as patient completes activity. Assistance may be provided throughout the activity or intermittently. 3-Partial/Moderate Assistance-helper does LESS THAN HALF the effort. [place] lifts, holds or supports trunk or limbs, but provides less than half the effort. 2-Substantial/Maximal Assistance-helper does MORE THAN HALF the effort. [place] lifts or holds trunk or limbs and provides more than half the effort. 7-Mgkbvcmkj-mjrdiw does ALL the effort. Patient does none of the effort to complete the activity. Or, the assistance of 2 or more helpers is required for the patient to complete the activity. If activity was not attempted, code reason: 7-Patient Refused. 9-Not Applicable-not attempted and the patient did not perform the activity before the current illness, exacerbation or injury. 10-Not Attempted due to Environmental Limitations-(lack of equipment, weather restraints, etc.). 88-Not Attempted due to Medical Conditions or Safety Concerns. Other Treatment Pt. participated B UE exercises to increase strength and activity tolerance. Shoulder flexion to 180 degrees, bicep curls, horizontal shoulder abd/add 10 reps 3x's. Pt. tolerated well, did state that arms were tired. Noted Pt. unable to keep shoulders at 90 degrees with horizontal shoulder abd/add. After session pt. was left with call light/ phone in reach. All needs met in room. Education Teaching Methods: Demonstration Response to Teaching: Verbalize Understanding, Return Demonstration OT Spice Blender Goals Detention Goals Time Frame: Nov 08, 2020 Eating (QC): 6 Oral Hygiene (QC): 6 Toileting Hygiene (QC): 6 Shower/Bathe Self (QC): 4 Upper Body Dressing (QC): 5 Lower Body Dressing (QC): 4 On/Off Footwear (QC): 4 (With AE as needed.) Additional Goals: 1-Demonstrate ADL Tasks, 2-Verbalize Understanding, 3- ImproveStrength/Joseline 1=Demonstrate adherence to instructed precautions during ADL tasks. 2=Patient will verbalize/demonstrate understanding of assistive devices/modifications for ADL. 3=Patient will improve strength/tolerance for activity to enable patient to perform ADL's. OT Education/Plan Problem List/Assessment Assessment: Decreased Activ Tolerance, Decreased UE Strength Discharge Recommendations Plan/Recommendations: Continue POC Treatment Plan/Plan of Care Patient would benefit from OT for education, treatment and training to promote independence in ADL's, mobility, safety and/or upper extremity function for ADL's. Plan of Care: ADL Retraining, Functional Mobility, UE Funct Exercise/Act Treatment Duration: Nov 08, 2020 Frequency: 5 times per week Estimated Hrs Per Day: .25 hour per day Agreement: Yes Rehab Potential: Fair Time/GCodes Start Time: 13:15 Stop Time: 13:27 Total Time Billed (hr/min): 12 Billed Treatment Time 1 visit- Ex 1 (12 min). SADIA LOPEZ Oct 26, 2020 13:58
[2020-10-26 16:00] VITALS: BP 111/78
[2020-10-26 19:48] LABS: BILIRUBIN,URINE NEGATIVE (NEGATIVE); CLARITY,URINE CLOUDY; COLOR,URINE YELLOW; GLUCOSE, URINE (UA) NEGATIVE (NEGATIVE); KETONES,URINE NEGATIVE (NEGATIVE); LEUKOCYTE ESTERASE ,URINE TRACE (NEGATIVE); NITRITE,URINE NEGATIVE (NEGATIVE); PROTEIN,URINE 2+ (NEGATIVE)
[2020-10-26 20:01] VITALS: BP 145/84
[2020-10-26 20:08] LABS: BACTERIA,URINE FEW /HPF; RBC,URINE TNTC /HPF
[2020-10-26] MEDS: TAMSULOSIN 0.4 MG (FLOMAX) CAP PO SCH (20:53)
[2020-10-26] MEDS: FENOFIBRATE 134 MG (LOFIBRA) CAPSULE PO SCH (20:54)
[2020-10-26 23:28] VITALS: BP 138/81
[2020-10-27 04:00] VITALS: BP 154/94
[2020-10-27] MEDS: VANCOMYCIN 125 MG CAPSULE PO SCH ×4 (04:53→20:42)
[2020-10-27 05:56] LABS: BASOPHILS % (AUTO) 1 % (0-10); EOSINOPHILS # (AUTO) 0.3 10^3/uL (0.0-0.3); EOSINOPHILS % (AUTO) 5 % (0-10); HEMATOCRIT 37 % (40-54); HEMOGLOBIN 11.7 g/dL (13.3-17.7); LYMPHOCYTES # (AUTO) 1.5 10^3/uL (1.0-4.0); LYMPHOCYTES % (AUTO) 25 % (12-44); MEAN CORPUSCULAR HEMOGLOBIN 28 pg (25-34); MEAN CORPUSCULAR HGB CONC 32 g/dL (32-36); MEAN CORPUSCULAR VOLUME 89 fL (80-99); MEAN PLATELET VOLUME 9.6 fL (9.0-12.2); MONOCYTES # (AUTO) 0.6 10^3/uL (0.0-1.0); MONOCYTES % (AUTO) 10 % (0-12); NEUTROPHILS # (AUTO) 3.7 10^3/uL (1.8-7.8); NEUTROPHILS % (AUTO) 59 % (42-75); PLATELET COUNT 214 10^3/uL (130-400); WHITE BLOOD COUNT 6.2 10^3/uL (4.3-11.0)
[2020-10-27 06:04] LABS: ALBUMIN 3.6 GM/DL (3.2-4.5); POTASSIUM 3.4 MMOL/L (3.6-5.0)
[2020-10-27 06:05] LABS: CALCIUM 9.6 MG/DL (8.5-10.1)
[2020-10-27 06:06] LABS: TOTAL PROTEIN 6.5 GM/DL (6.4-8.2)
[2020-10-27] MEDS: POTASSIUM CL 10MEQ/50ML IVPB 50 ML IV SCH (06:06)
[2020-10-27] MEDS: KCL 20 MEQ TAB (K-DUR) PO SCH (06:07)
[2020-10-27 06:08] LABS: BILIRUBIN,TOTAL 0.5 MG/DL (0.1-1.0)
[2020-10-27 06:10] LABS: CREATININE SERUM 0.77 MG/DL (0.60-1.30)
[2020-10-27 06:12] LABS: MAGNESIUM 1.8 MG/DL (1.6-2.4)
[2020-10-27] MEDS ORDERED: KCL 20 MEQ TAB (K-DUR) PO ONE (06:15)
[2020-10-27] MEDS: MAGNESIUM 1 GM/100 ML IVPB 100 ML IV SCH (06:29)
[2020-10-27] MEDS: inSUlin ASPART (NovoLOG) 1 UNIT/0.01 ML (CHARGE PER UNIT) SC SCH ×4 (06:29→20:30)
[2020-10-27] MEDS: MESALAMINE 1.2 GM PO SCH (06:44)
[2020-10-27] MEDS: PANTOPRAZOLE 40 MG (PROTONIX) TAB PO SCH (06:44)
[2020-10-27 07:49] VITALS: BP 150/92
[2020-10-27] MEDS: ENOXAPARIN 40 MG/0.4 ML (LOVENOX) SYR SQ SCH ×2 (08:22→20:42)
[2020-10-27] MEDS: ASPIRIN E.C. 81 MG (ECOTRIN) TAB PO SCH (08:23)
[2020-10-27] MEDS: NIFEdipine ER 60 MG (PROCARDIA XL) TAB PO SCH (08:23)
[2020-10-27] MEDS: lisINopril 10 MG (PRINIVIL) TABLET PO SCH (08:23)
[2020-10-27] MEDS: meTOprolol TARTRATE 25 MG (LOPRESSOR) TABLET PO SCH ×2 (08:23→20:42)
[2020-10-27] MEDS: rOPINIRole 5 MG TAB (REQUIP) PO SCH ×3 (08:23→20:41)
[2020-10-27] MEDS: DULoxetine 30 MG (CYMBALTA) CAP PO SCH (08:23)
[2020-10-27] MEDS: GABAPENTIN 600 MG (NEURONTIN) TAB PO SCH ×4 (08:23→20:42)
[2020-10-27] MEDS: FAMOTIDINE 20 MG (PEPCID) TABLET PO SCH (08:23)
[2020-10-27] MEDS: ALLOPURINOL 100 MG (ZYLOPRIM) TAB PO SCH (08:23)
--- NOTE | 2020-10-27 10:19 | Physical Therapy Daily Note ---
PT Daily Note-Current Subjective Patient agrees to PT. Mental Status Patient Orientation: Normal For Age Transfers SCALE: Activities may be completed with or without assistive devices. 3-Sqlkhlnzdn-bdkcyvl completes the activity by him/herself with no assistance from a helper. 5-Set-up or Clean-up Assistance-helper sets up or cleans up; patient completes activity. [place] assists only prior to or following the activity. 4-Supervision or Touching Assistance-helper provides verbal cues and/or touching/steadying and/or contact guard assistance as patient completes activity. Assistance may be provided throughout the activity or intermittently. 3-Partial/Moderate Assistance-helper does LESS THAN HALF the effort. [place] lifts, holds or supports trunk or limbs, but provides less than half the effort. 2-Substantial/Maximal Assistance-helper does MORE THAN HALF the effort. [place] lifts or holds trunk or limbs and provides more than half the effort. 1-Ttkjxmfkn-dcbkrv does ALL the effort. Patient does none of the effort to complete the activity. Or, the assistance of 2 or more helpers is required for the patient to complete the activity. If activity was not attempted, code reason: 7-Patient Refused. 9-Not Applicable-not attempted and the patient did not perform the activity befo re the current illness, exacerbation or injury. 10-Not Attempted due to Environmental Limitations-(lack of equipment, weather re straints, etc.). 88-Not Attempted due to Medical Conditions or Safety Concerns. Lying to Sitting/Side of Bed(Q: 4 Sit to Stand (QC): 4 Chair/Glv-gj-Srnmw Xfer(QC): 4 Toilet Transfer (QC): 4 SBA for all mobility/patient incontinent BM requiring assist to cleanse and change gown Gait Training Does the Patient Walk?: Yes Distance: 200' Walk 10 feet (QC): 4 Walk 50 ft with 2 Turns(QC): 4 Walk 150 ft (QC): 4 Gait Assistive Device: FWW safe and functional Assessment Patient up in recliner with needs met. Patient progressing with treatment plan PT [facility] Goals Licensed Mortician Goals PT [facility] Goals Time Frame: Nov 04, 2020 Roll Left & Right (QC): 6 Sit to Lying (QC): 6 Lying-Sitting on Side/Bed(QC): 6 Sit to Stand (QC): 6 Chair/Olm-ti-Vngvx Xfer(QC): 6 Toilet Transfer (QC): 6 Does the Patient Walk: Yes Walk 10 feet (QC): 6 Walk 50ft with 2 Turns (QC): 6 Walk 150 ft (QC): 6 PT Plan Treatment/Plan Treatment Plan: Continue Plan of Care Treatment Plan: Bed Mobility, Education, Functional Activity Joseline, Functional Strength, Gait, Safety, Therapeutic Exercise, Other Treatment Duration: Nov 04, 2020 Frequency: 6 times per week Estimated Hrs Per Day: .25 hour per day Patient and/or Family Agrees t: Yes Time/GCodes Time In: 955 Time Out: 1007 Total Billed Treatment Time: 12 Total Billed Treatment 1 visit FA 12 min LUCA CONNELLY PT Oct 27, 2020 10:19
[2020-10-27 11:32] VITALS: BP 117/77
--- NOTE | 2020-10-27 11:46 | Progress Note - Hospitalist ---
KAVITA BROWN MED STUDENT 10/27/20 1146: Subjective HPI/CC On Admission Date Seen by Provider: Oct 27, 2020 Time Seen by Provider: 08:00 UTI, L ureteral stent and stone, sepsis, HTN Subjective/Events-last exam This is Dov a 49 yo male on day 7 of his hospital stay with the chief complaint of UTI, L ureteral stent and stone, sepsis, and HTN. Upon entering the room he was sitting up in bed eating breakfast in a pleasant mood. He was calm, cooperative, and engaged during questioning. Pt complained of lower back pain and requested to receive baclofen for muscle spasms which he takes at home. He is having minimal SOB with an O2 saturation of 97% on RA. He is still struggling with symptoms of C. diff stating that he was incontinent this morning and it was diarrhea. Pt stated that he is no longer experiencing burning upon urination. UA completed on 10/26 revealed few bacteria as well as RBC and protien 3+. Review of Systems Pulmonary: Dyspnea Gastrointestinal: Diarrhea Musculoskeletal: back pain (lumbar) Neurological: Weakness Focused Exam Time of Focused Exam: 08:00 Respiratory: Chest Non Tender, Lungs Clear, Normal Breath Sounds, No Accessory Muscle Use Cardiovascular: Regular Rate, Rhythm, No Edema, No Gallop, No Murmur, Normal Peripheral Pulses Skin: normal color, warm/dry Objective Exam Vital Signs Vital Signs Date Time Temp Pulse Resp B/P (MAP) Pulse Ox O2 Delivery O2 Flow Rate FiO2 10/27/20 11:32 36.8 108 20 117/77 (90) 92 Room Air Capillary Refill : Less Than 3 Seconds General Appearance: No Apparent Distress, WD/WN, Chronically ill HEENT: PERRL/EOMI, Pharynx Normal Neck: Normal Inspection, Non Tender, Supple Respiratory: Chest Non Tender, Lungs Clear, Normal Breath Sounds, No Accessory Muscle Use Cardiovascular: Regular Rate, Rhythm, No Edema, No Gallop, No Murmur, Normal Peripheral Pulses Gastrointestinal: Normal Bowel Sounds, Non Tender, Soft Rectal: Deferred Back: Muscle Spasm, Vertebral Tenderness (lumbar) Extremity: Normal Inspection, Non Tender, No Calf Tenderness, No Pedal Edema Neurologic/Psychiatric: Alert, Oriented x3, No Motor/Sensory Deficits, Normal Mood/Affect Skin: Normal Color, Warm/Dry Results/Procedures Lab Laboratory Tests 10/27/20 05:40 Patient resulted labs reviewed. Imaging: Reviewed Imaging Films, Reviewed Imaging Report Assessment/Plan Assessment and Plan Assess & Plan/Chief Complaint UTI sepsis continue antibiotic treatment- ceftriaxone L ureteral stent and stone f/u with Dr. Holland HTN uncontrolled at 154/94 on 10/27 continue lisinopril, metoprolol, and nifedipine spinal canal stenosis at L2-L3 f/u with orthopedics lower back pain continue pain medications- tylenol, tordol, hydrocodone add baclofen PRN DVT prophylaxis continue lovenox hypokalemia resolved with potassium mildly anemic 11.7 on 10/27 continue home medications encourage IS use C. diff continue treatment with vancomycin PO droplet precaution continue IV fluids SOB monitor vitals and labs provide supplemental O2 if needed obesity left thigh burning sensation- resolved continue gabapentin 600mg TID tachycardia-resolved HR of 91 on 10/27 depressed effect- improved possible consult with [facility] after D/C possible rehab consult discuss with social work encourage ambulation continue working with PT/OT EDWINA LOPEZ DO 10/28/20 0616: Subjective Subjective/Events-last exam Pt doing a lot better Potassium 3.4 on supplement UA looked good Baclofen will be ordered Needs senior care placement Review of Systems General: Fatigue, Malaise Musculoskeletal: back pain (lumbar) Objective Exam General Appearance: No Apparent Distress, WD/WN, Chronically ill, Obese Respiratory: Lungs Clear, Normal Breath Sounds Cardiovascular: Regular Rate, Rhythm Assessment/Plan Assessment and Plan Assess & Plan/Chief Complaint Awaiting senior care Supervisory-Addendum Brief Verification & Attestation Participated in pt care: history, MDM, physical Personally performed: exam, history, MDM, supervision of care Care discussed with: Medical Student Procedures: n/a Results interpretation: Verified all documentation Verification and Attestation of Medical Student E/M Service A medical student performed and documented this service in my presence. I r eviewed and verified all information documented by the medical student and made modifications to such information, when appropriate. I personally performed the physical exam and medical decision making. Edwina Lopez, Oct 28, 2020,06:16 KAVITA BROWN MED STUDENT Oct 27, 2020 11:46 EDWINA LOPEZ DO Oct 28, 2020 06:16
--- NOTE | 2020-10-27 12:09 | Occupational Ther Daily Note ---
OT Current Status-Daily Note Subjective Pt upright in recliner, declined ADLs on this date. ADL-Treatment Therapy Code Descriptions/Definitions Functional [employer] Measure: 0=Not Assessed/NA 4=Minimal Assistance 1=Total Assistance 5=Supervision or Setup 2=Maximal Assistance 6=Modified [employer] 3=Moderate Assistance 7=Complete IndependenceSCALE: Activities may be completed with or without assistive devices. 4-Zjnfhiqube-hslrexa completes the activity by him/herself with no assistance from a helper. 5-Set-up or Clean-up Assistance-helper sets up or cleans up; patient completes activity. [place] assists only prior to or following the activity. 4-Supervision or Touching Assistance-helper provides verbal cues and/or touching/steadying and/or contact guard assistance as patient completes activity. Assistance may be provided throughout the activity or intermittently. 3-Partial/Moderate Assistance-helper does LESS THAN HALF the effort. [place] lifts, holds or supports trunk or limbs, but provides less than half the effort. 2-Substantial/Maximal Assistance-helper does MORE THAN HALF the effort. [place] lifts or holds trunk or limbs and provides more than half the effort. 9-Ybrfnkehf-xcsamh does ALL the effort. Patient does none of the effort to complete the activity. Or, the assistance of 2 or more helpers is required for the patient to complete the activity. If activity was not attempted, code reason: 7-Patient Refused. 9-Not Applicable-not attempted and the patient did not perform the activity before the current illness, exacerbation or injury. 10-Not Attempted due to Environmental Limitations-(lack of equipment, weather restraints, etc.). 88-Not Attempted due to Medical Conditions or Safety Concerns. Toileting Hygiene (QC): 5 (assist emptying urinal) Other Treatment Pt seated in recliner, declined all ADLs. Pt agreeable to UE exercises in order to increase BUE strength and activity tolerance. Pt recalled 3/3 exercises from previous session, completing 2x15 reps each of the following: Shoulder flexion to 180 degrees, bicep curls, horizontal shoulder abd/add. Pt tolerated exercises well, taking rest breaks between each exercise. Post tx, pt seated in recliner, call light in reach and all needs met. Education OT Patient Education: Correct positioning, Exercise program, Home exercise program, Modified ADL techniques, Progress toward Goal/Update tx plan, Purpose of tx/functional activities Teaching Recipient: Patient Teaching Methods: Discussion Response to Teaching: Verbalize Understanding OT [facility] Goals Production Expediter Goals Time Frame: Nov 08, 2020 Eating (QC): 6 Oral Hygiene (QC): 6 Toileting Hygiene (QC): 6 Shower/Bathe Self (QC): 4 Upper Body Dressing (QC): 5 Lower Body Dressing (QC): 4 On/Off Footwear (QC): 4 (With AE as needed.) Additional Goals: 1-Demonstrate ADL Tasks, 2-Verbalize Understanding, 3- ImproveStrength/Joseline 1=Demonstrate adherence to instructed precautions during ADL tasks. 2=Patient will verbalize/demonstrate understanding of assistive devices/modifications for ADL. 3=Patient will improve strength/tolerance for activity to enable patient to perform ADL's. OT Education/Plan Problem List/Assessment Assessment: Decreased Activ Tolerance, Decreased UE Strength, Impaired I ADL's, Impaired Self-Care Skills Discharge Recommendations Plan/Recommendations: Continue POC Treatment Plan/Plan of Care Patient would benefit from OT for education, treatment and training to promote independence in ADL's, mobility, safety and/or upper extremity function for ADL's. Plan of Care: ADL Retraining, Functional Mobility, UE Funct Exercise/Act Treatment Duration: Nov 08, 2020 Frequency: 5 times per week Estimated Hrs Per Day: .25 hour per day Agreement: Yes Rehab Potential: Fair Time/GCodes Start Time: 11:16 Stop Time: 11:28 Total Time Billed (hr/min): 12 Billed Treatment Time 1, EX MAURICIO PINEDA OT Oct 27, 2020 12:09
[2020-10-27] MEDS: HYDROcodone/APAP 5 MG/325 MG (LORTAB) TAB PO PRN ×2 (13:06→18:23)
[2020-10-27 16:20] VITALS: BP 131/84
[2020-10-27] MEDS: BACLOFEN 10 MG (LIORESAL) TAB PO PRN (18:23)
[2020-10-27 19:20] VITALS: BP 126/72
[2020-10-27] MEDS: TAMSULOSIN 0.4 MG (FLOMAX) CAP PO SCH (20:42)
[2020-10-27] MEDS: FENOFIBRATE 134 MG (LOFIBRA) CAPSULE PO SCH (20:42)
[2020-10-28] VITALS (7 sets, daily range): BP systolic 114–143; BP diastolic 66–88
[2020-10-28] MEDS: VANCOMYCIN 125 MG CAPSULE PO SCH ×4 (04:41→21:02)
[2020-10-28 05:12] LABS: BASOPHILS # (AUTO) 0.1 10^3/uL (0.0-0.1); BASOPHILS % (AUTO) 1 % (0-10); EOSINOPHILS # (AUTO) 0.3 10^3/uL (0.0-0.3); EOSINOPHILS % (AUTO) 5 % (0-10); HEMATOCRIT 37 % (40-54); HEMOGLOBIN 11.8 g/dL (13.3-17.7); LYMPHOCYTES # (AUTO) 1.8 10^3/uL (1.0-4.0); LYMPHOCYTES % (AUTO) 27 % (12-44); MEAN CORPUSCULAR HEMOGLOBIN 28 pg (25-34); MEAN CORPUSCULAR HGB CONC 32 g/dL (32-36); MEAN CORPUSCULAR VOLUME 90 fL (80-99); MEAN PLATELET VOLUME 9.8 fL (9.0-12.2); MONOCYTES # (AUTO) 0.7 10^3/uL (0.0-1.0); MONOCYTES % (AUTO) 10 % (0-12); NEUTROPHILS # (AUTO) 3.8 10^3/uL (1.8-7.8); NEUTROPHILS % (AUTO) 56 % (42-75); PLATELET COUNT 222 10^3/uL (130-400); WHITE BLOOD COUNT 6.7 10^3/uL (4.3-11.0)
[2020-10-28 05:21] LABS: ALBUMIN 3.6 GM/DL (3.2-4.5); POTASSIUM 3.6 MMOL/L (3.6-5.0)
[2020-10-28 05:23] LABS: CALCIUM 9.8 MG/DL (8.5-10.1)
[2020-10-28 05:24] LABS: TOTAL PROTEIN 6.5 GM/DL (6.4-8.2)
[2020-10-28 05:25] LABS: BILIRUBIN,TOTAL 0.5 MG/DL (0.1-1.0)
[2020-10-28 05:27] LABS: CREATININE SERUM 0.78 MG/DL (0.60-1.30)
[2020-10-28] MEDS: POTASSIUM CL 10MEQ/50ML IVPB 50 ML IV SCH (05:32)
[2020-10-28] MEDS: inSUlin ASPART (NovoLOG) 1 UNIT/0.01 ML (CHARGE PER UNIT) SC SCH ×4 (05:32→21:06)
[2020-10-28] MEDS: KCL 20 MEQ TAB (K-DUR) PO SCH (05:32)
[2020-10-28] MEDS ORDERED: KCL 20 MEQ TAB (K-DUR) PO ONE (06:00)
--- NOTE | 2020-10-28 06:41 | Progress Note - Hospitalist ---
Subjective HPI/CC On Admission Date Seen by Provider: Oct 28, 2020 Time Seen by Provider: 11:30 UTI, L ureteral stent and stone, sepsis, HTN Subjective/Events-last exam Patient having a pretty good day Denies any issues Taking baclofen for muscle spasms Awaiting placement Labs look good Review of Systems General: Malaise Musculoskeletal: back pain Focused Exam Time of Focused Exam: 08:00 Objective Exam Vital Signs Vital Signs Date Time Temp Pulse Resp B/P (MAP) Pulse Ox O2 Delivery O2 Flow Rate FiO2 10/29/20 04:14 36.4 96 20 118/82 (94) 93 Room Air Capillary Refill : Less Than 3 Seconds General Appearance: No Apparent Distress, WD/WN, Chronically ill Respiratory: Lungs Clear, Normal Breath Sounds Cardiovascular: Regular Rate, Rhythm Neurologic/Psychiatric: Alert, Oriented x3, Depressed Affect Results/Procedures Lab Patient resulted labs reviewed. Imaging: Reviewed Imaging Films, Reviewed Imaging Report Assessment/Plan Assessment and Plan Assess & Plan/Chief Complaint Assessment: UTI C. difficile colitis Chronic back pain Chronic debility Plan: Await penitentiary placement XAVI LOPEZ DO Oct 28, 2020 06:41
[2020-10-28] MEDS: MAGNESIUM 1 GM/100 ML IVPB 100 ML IV SCH (06:42)
[2020-10-28] MEDS: PANTOPRAZOLE 40 MG (PROTONIX) TAB PO SCH (06:43)
[2020-10-28] MEDS: MESALAMINE 1.2 GM PO SCH (06:43)
--- NOTE | 2020-10-28 08:39 | Physical Therapy Daily Note ---
PT Daily Note-Current Subjective States that his legs feel weak. Transfers SCALE: Activities may be completed with or without assistive devices. 5-Mnvsjgvycn-ccqbgff completes the activity by him/herself with no assistance from a helper. 5-Set-up or Clean-up Assistance-helper sets up or cleans up; patient completes activity. [place] assists only prior to or following the activity. 4-Supervision or Touching Assistance-helper provides verbal cues and/or touching/steadying and/or contact guard assistance as patient completes activity. Assistance may be provided throughout the activity or intermittently. 3-Partial/Moderate Assistance-helper does LESS THAN HALF the effort. [place] lifts, holds or supports trunk or limbs, but provides less than half the effort. 2-Substantial/Maximal Assistance-helper does MORE THAN HALF the effort. [place] lifts or holds trunk or limbs and provides more than half the effort. 7-Ydptagvbq-lwytjm does ALL the effort. Patient does none of the effort to complete the activity. Or, the assistance of 2 or more helpers is required for the patient to complete the activity. If activity was not attempted, code reason: 7-Patient Refused. 9-Not Applicable-not attempted and the patient did not perform the activity before the current illness, exacerbation or injury. 10-Not Attempted due to Environmental Limitations-(lack of equipment, weather restraints, etc.). 88-Not Attempted due to Medical Conditions or Safety Concerns. Sit to Stand (QC): 4 Gait Training Distance: 75' Walk 10 feet (QC): 5 Walk 50 ft with 2 Turns(QC): 5 Gait Persons Needed: 1 Gait Assistive Device: FWW Exercises Seated Therapy Exercises: Long arc quads Seated Reps: 20 Assessment Current Status: Good Progress Patient had increased weakness in his legs today. PT Mcfp Goals Electrical Cad Technician Goals PT Electrical Cad Technician Goals Time Frame: Nov 04, 2020 Roll Left & Right (QC): 6 Sit to Lying (QC): 6 Lying-Sitting on Side/Bed(QC): 6 Sit to Stand (QC): 6 Chair/Asd-tb-Tavyd Xfer(QC): 6 Toilet Transfer (QC): 6 Does the Patient Walk: Yes Walk 10 feet (QC): 6 Walk 50ft with 2 Turns (QC): 6 Walk 150 ft (QC): 6 PT Plan Treatment/Plan Treatment Plan: Continue Plan of Care Treatment Plan: Bed Mobility, Education, Functional Activity Joseline, Functional Strength, Gait, Safety, Therapeutic Exercise, Other Treatment Duration: Nov 04, 2020 Frequency: 6 times per week Estimated Hrs Per Day: .25 hour per day Patient and/or Family Agrees t: Yes Time/GCodes Time In: 819 Time Out: 834 Total Billed Treatment Time: 15 Total Billed Treatment 1, GT x 15 TOD ENCISO PT Oct 28, 2020 08:39
[2020-10-28] MEDS: GABAPENTIN 600 MG (NEURONTIN) TAB PO SCH ×4 (09:16→21:02)
[2020-10-28] MEDS: ENOXAPARIN 40 MG/0.4 ML (LOVENOX) SYR SQ SCH ×2 (09:16→21:02)
[2020-10-28] MEDS: HYDROcodone/APAP 5 MG/325 MG (LORTAB) TAB PO PRN ×2 (09:16→21:24)
[2020-10-28] MEDS: meTOprolol TARTRATE 25 MG (LOPRESSOR) TABLET PO SCH ×2 (09:16→21:01)
[2020-10-28] MEDS: ALLOPURINOL 100 MG (ZYLOPRIM) TAB PO SCH (09:16)
[2020-10-28] MEDS: ASPIRIN E.C. 81 MG (ECOTRIN) TAB PO SCH (09:18)
[2020-10-28] MEDS: lisINopril 10 MG (PRINIVIL) TABLET PO SCH (09:18)
[2020-10-28] MEDS: DULoxetine 30 MG (CYMBALTA) CAP PO SCH (09:18)
[2020-10-28] MEDS: FAMOTIDINE 20 MG (PEPCID) TABLET PO SCH (09:19)
[2020-10-28] MEDS: NIFEdipine ER 60 MG (PROCARDIA XL) TAB PO SCH (09:19)
[2020-10-28] MEDS: rOPINIRole 5 MG TAB (REQUIP) PO SCH ×3 (09:19→21:02)
[2020-10-28] MEDS: BACLOFEN 10 MG (LIORESAL) TAB PO PRN (09:27)
[2020-10-28] MEDS: FENOFIBRATE 134 MG (LOFIBRA) CAPSULE PO SCH (21:01)
[2020-10-28] MEDS: TAMSULOSIN 0.4 MG (FLOMAX) CAP PO SCH (21:06)
[2020-10-29] MEDS: VANCOMYCIN 125 MG CAPSULE PO SCH ×4 (03:29→20:24)
[2020-10-29] MEDS: HYDROcodone/APAP 5 MG/325 MG (LORTAB) TAB PO PRN (03:29)
[2020-10-29 04:14] VITALS: BP 118/82
[2020-10-29] MEDS: PANTOPRAZOLE 40 MG (PROTONIX) TAB PO SCH (05:51)
[2020-10-29] MEDS: KCL 20 MEQ TAB (K-DUR) PO SCH (05:51)
[2020-10-29] MEDS: BACLOFEN 10 MG (LIORESAL) TAB PO PRN ×2 (05:51→20:24)
[2020-10-29] MEDS: MESALAMINE 1.2 GM PO SCH (05:52)
[2020-10-29] MEDS: MAGNESIUM 1 GM/100 ML IVPB 100 ML IV SCH (05:54)
[2020-10-29] MEDS: inSUlin ASPART (NovoLOG) 1 UNIT/0.01 ML (CHARGE PER UNIT) SC SCH ×4 (05:54→20:25)
[2020-10-29] MEDS: POTASSIUM CL 10MEQ/50ML IVPB 50 ML IV SCH (05:54)
[2020-10-29 08:14] VITALS: BP 117/85
[2020-10-29] MEDS: ENOXAPARIN 40 MG/0.4 ML (LOVENOX) SYR SQ SCH ×2 (08:51→20:25)
[2020-10-29] MEDS: ALLOPURINOL 100 MG (ZYLOPRIM) TAB PO SCH (08:52)
[2020-10-29] MEDS: rOPINIRole 5 MG TAB (REQUIP) PO SCH ×3 (08:52→20:25)
[2020-10-29] MEDS: lisINopril 10 MG (PRINIVIL) TABLET PO SCH (08:52)
[2020-10-29] MEDS: FAMOTIDINE 20 MG (PEPCID) TABLET PO SCH (08:52)
[2020-10-29] MEDS: ASPIRIN E.C. 81 MG (ECOTRIN) TAB PO SCH (08:52)
[2020-10-29] MEDS: GABAPENTIN 600 MG (NEURONTIN) TAB PO SCH ×4 (08:52→20:24)
[2020-10-29] MEDS: NIFEdipine ER 60 MG (PROCARDIA XL) TAB PO SCH (08:52)
[2020-10-29] MEDS: meTOprolol TARTRATE 25 MG (LOPRESSOR) TABLET PO SCH ×2 (08:52→20:24)
[2020-10-29] MEDS: DULoxetine 30 MG (CYMBALTA) CAP PO SCH (08:52)
--- NOTE | 2020-10-29 11:18 | Progress Note - Hospitalist ---
Subjective HPI/CC On Admission Date Seen by Provider: Oct 29, 2020 Time Seen by Provider: 11:15 UTI, L ureteral stent and stone, sepsis, HTN Subjective/Events-last exam Patient has no complaints Awaiting placement Had an accident with diarrhea so we will start Questran 3 times daily Check meds and labs Review of Systems General: Fatigue, Malaise Gastrointestinal: Diarrhea Musculoskeletal: back pain Focused Exam Time of Focused Exam: 08:00 Objective Exam Vital Signs Vital Signs Date Time Temp Pulse Resp B/P (MAP) Pulse Ox O2 Delivery O2 Flow Rate FiO2 10/29/20 12:03 35.9 104 20 107/72 (84) 92 Room Air Capillary Refill : Less Than 3 Seconds General Appearance: No Apparent Distress, WD/WN, Chronically ill, Obese Respiratory: Lungs Clear, Normal Breath Sounds Cardiovascular: Regular Rate, Rhythm Neurologic/Psychiatric: Alert, Oriented x3 Results/Procedures Lab Patient resulted labs reviewed. Imaging: Reviewed Imaging Films, Reviewed Imaging Report Assessment/Plan Assessment and Plan Assess & Plan/Chief Complaint Assessment: UTI C. difficile colitis Chronic back pain Chronic debility Plan: Await [facility] placement 10/29/2020: Questran for diarrhea Monitor closely XAVI LOPEZ DO Oct 29, 2020 11:18
[2020-10-29 12:03] VITALS: BP 107/72
[2020-10-29] MEDS: CHOLESTYRAMINE 4 GM (QUESTRAN LITE, PREVALITE) PKT PO SCH ×2 (13:26→18:04)
[2020-10-29 16:00] VITALS: BP 134/78
[2020-10-29 20:00] VITALS: BP 134/79
[2020-10-29] MEDS: FENOFIBRATE 134 MG (LOFIBRA) CAPSULE PO SCH (20:24)
[2020-10-29] MEDS: TAMSULOSIN 0.4 MG (FLOMAX) CAP PO SCH (20:24)
[2020-10-29 23:30] VITALS: BP 146/88
[2020-10-30 03:52] VITALS: BP 131/85
[2020-10-30] MEDS: VANCOMYCIN 125 MG CAPSULE PO SCH ×4 (05:07→22:35)
[2020-10-30 06:12] LABS: BASOPHILS # (AUTO) 0.1 10^3/uL (0.0-0.1); BASOPHILS % (AUTO) 1 % (0-10); EOSINOPHILS # (AUTO) 0.3 10^3/uL (0.0-0.3); EOSINOPHILS % (AUTO) 4 % (0-10); HEMATOCRIT 39 % (40-54); HEMOGLOBIN 12.1 g/dL (13.3-17.7); LYMPHOCYTES # (AUTO) 1.8 10^3/uL (1.0-4.0); LYMPHOCYTES % (AUTO) 26 % (12-44); MEAN CORPUSCULAR HEMOGLOBIN 28 pg (25-34); MEAN CORPUSCULAR HGB CONC 31 g/dL (32-36); MEAN CORPUSCULAR VOLUME 91 fL (80-99); MEAN PLATELET VOLUME 10.1 fL (9.0-12.2); MONOCYTES # (AUTO) 0.7 10^3/uL (0.0-1.0); MONOCYTES % (AUTO) 10 % (0-12); NEUTROPHILS % (AUTO) 58 % (42-75); PLATELET COUNT 232 10^3/uL (130-400); WHITE BLOOD COUNT 6.9 10^3/uL (4.3-11.0)
[2020-10-30] MEDS: inSUlin ASPART (NovoLOG) 1 UNIT/0.01 ML (CHARGE PER UNIT) SC SCH ×4 (06:12→22:24)
[2020-10-30 06:22] LABS: ALBUMIN 3.7 GM/DL (3.2-4.5); POTASSIUM 3.6 MMOL/L (3.6-5.0)
[2020-10-30 06:23] LABS: CALCIUM 9.9 MG/DL (8.5-10.1)
[2020-10-30 06:25] LABS: TOTAL PROTEIN 6.8 GM/DL (6.4-8.2)
[2020-10-30 06:26] LABS: BILIRUBIN,TOTAL 0.5 MG/DL (0.1-1.0)
[2020-10-30 06:28] LABS: CREATININE SERUM 0.82 MG/DL (0.60-1.30)
[2020-10-30] MEDS: MAGNESIUM 1 GM/100 ML IVPB 100 ML IV SCH (06:30)
[2020-10-30] MEDS: POTASSIUM CL 10MEQ/50ML IVPB 50 ML IV SCH (06:30)
[2020-10-30] MEDS ORDERED: KCL 20 MEQ TAB (K-DUR) PO ONE (06:30)
[2020-10-30] MEDS: KCL 20 MEQ TAB (K-DUR) PO SCH (06:30)
[2020-10-30] MEDS: MESALAMINE 1.2 GM PO SCH (06:44)
[2020-10-30 08:00] VITALS: BP 145/84
[2020-10-30] MEDS: CHOLESTYRAMINE 4 GM (QUESTRAN LITE, PREVALITE) PKT PO SCH ×3 (08:07→18:23)
[2020-10-30] MEDS: ENOXAPARIN 40 MG/0.4 ML (LOVENOX) SYR SQ SCH ×2 (08:08→22:34)
[2020-10-30] MEDS: meTOprolol TARTRATE 25 MG (LOPRESSOR) TABLET PO SCH ×2 (08:09→22:34)
[2020-10-30] MEDS: NIFEdipine ER 60 MG (PROCARDIA XL) TAB PO SCH (08:09)
[2020-10-30] MEDS: rOPINIRole 5 MG TAB (REQUIP) PO SCH ×3 (08:09→22:34)
[2020-10-30] MEDS: ALLOPURINOL 100 MG (ZYLOPRIM) TAB PO SCH (08:09)
[2020-10-30] MEDS: PANTOPRAZOLE 40 MG (PROTONIX) TAB PO SCH (08:09)
[2020-10-30] MEDS: DULoxetine 30 MG (CYMBALTA) CAP PO SCH (08:09)
[2020-10-30] MEDS: GABAPENTIN 600 MG (NEURONTIN) TAB PO SCH ×4 (08:09→22:34)
[2020-10-30] MEDS: FAMOTIDINE 20 MG (PEPCID) TABLET PO SCH (08:09)
[2020-10-30] MEDS: ASPIRIN E.C. 81 MG (ECOTRIN) TAB PO SCH (08:09)
[2020-10-30] MEDS: lisINopril 10 MG (PRINIVIL) TABLET PO SCH (08:10)
[2020-10-30] MEDS: HYDROcodone/APAP 5 MG/325 MG (LORTAB) TAB PO PRN ×2 (08:10→22:42)
--- NOTE | 2020-10-30 11:45 | Physical Therapy Daily Note ---
PT Daily Note-Current Subjective Patient agrees to PT. No c/o. Mental Status Patient Orientation: Normal For Age Transfers SCALE: Activities may be completed with or without assistive devices. 7-Jglrzjkewn-hgyqnfd completes the activity by him/herself with no assistance from a helper. 5-Set-up or Clean-up Assistance-helper sets up or cleans up; patient completes activity. [place] assists only prior to or following the activity. 4-Supervision or Touching Assistance-helper provides verbal cues and/or touching/steadying and/or contact guard assistance as patient completes activity. Assistance may be provided throughout the activity or intermittently. 3-Partial/Moderate Assistance-helper does LESS THAN HALF the effort. [place] lifts, holds or supports trunk or limbs, but provides less than half the effort. 2-Substantial/Maximal Assistance-helper does MORE THAN HALF the effort. [place] lifts or holds trunk or limbs and provides more than half the effort. 5-Usxcdnmhg-qhxikd does ALL the effort. Patient does none of the effort to c omplete the activity. Or, the assistance of 2 or more helpers is required for the patient to complete the activity. If activity was not attempted, code reason: 7-Patient Refused. 9-Not Applicable-not attempted and the patient did not perform the activity before the current illness, exacerbation or injury. 10-Not Attempted due to Environmental Limitations-(lack of equipment, weather restraints, etc.). 88-Not Attempted due to Medical Conditions or Safety Concerns. Lying to Sitting/Side of Bed(Q: 6 Sit to Stand (QC): 5 Chair/Zee-qp-Muuhe Xfer(QC): 5 Toilet Transfer (QC): 5 patient toileted self independently after BM and washed hands independently Gait Training Does the Patient Walk?: Yes Distance: 350' Walk 10 feet (QC): 4 (SBA) Walk 50 ft with 2 Turns(QC): 4 (SBA) Walk 150 ft (QC): 4 (SBA) Gait Assistive Device: FWW safe and functional with no deviation Assessment Patient up in recliner with needs met. Patient is very motivated with progress. PT Longterm Goals Machine Cleaner Goals PT Longterm Goals Time Frame: Nov 04, 2020 Roll Left & Right (QC): 6 Sit to Lying (QC): 6 Lying-Sitting on Side/Bed(QC): 6 Sit to Stand (QC): 6 Chair/Zbs-st-Eaegy Xfer(QC): 6 Toilet Transfer (QC): 6 Does the Patient Walk: Yes Walk 10 feet (QC): 6 Walk 50ft with 2 Turns (QC): 6 Walk 150 ft (QC): 6 PT Plan Treatment/Plan Treatment Plan: Continue Plan of Care Treatment Plan: Bed Mobility, Education, Functional Activity Joseline, Functional Strength, Gait, Safety, Therapeutic Exercise, Other Treatment Duration: Nov 04, 2020 Frequency: 6 times per week Estimated Hrs Per Day: .25 hour per day Patient and/or Family Agrees t: Yes Time/GCodes Time In: 1105 Time Out: 1120 Total Billed Treatment Time: 15 Total Billed Treatment 1 visit FA 15 min LUCA CONNELLY PT Oct 30, 2020 11:44
[2020-10-30 12:00] VITALS: BP 130/78
--- NOTE | 2020-10-30 12:44 | Progress Note ---
ZAHRAA ARRIAGA 10/30/20 1244: Subjective Subjective/Events-last exam CC: UTI, L ureteral stent and stone, sepsis, HTN Pt states that he is doing ok. States that his hematuria is improved. Reports back pain (hx of chronic back pain). Pt requested to go to a facility such as snf/nursing home because he is concerned that he is too weak for his daughter to take care of him at home. Daughter is primary caregiver and is able to watch him most of the day. Review of Systems General: No Chills; Fatigue, Malaise HEENT: No Eye Pain Pulmonary: No Dyspnea Gastrointestinal: Diarrhea; No: Constipation Genitourinary: No Dysuria; Hematuria Musculoskeletal: back pain Neurological: No: Change in speech, Confusion Focused Exam Time of Focused Exam: 08:00 Objective Exam Last Set of Vital Signs Vital Signs Date Time Temp Pulse Resp B/P (MAP) Pulse Ox O2 Delivery O2 Flow Rate FiO2 10/30/20 08:00 36.7 102 18 145/84 (104) 94 Room Air Capillary Refill : Less Than 3 Seconds I&O Intake and Output 10/30/20 00:00 Intake Total 3860 ml Output Total 3180 ml Balance 680 ml Intake Oral 3860 ml Output Urine Total 3180 ml # Voids 1 # Bowel Movements 2 General: Alert, Oriented X3, Cooperative HEENT: Atraumatic, PERRLA, EOMI Neck: Supple, No JVD Lungs: Clear to Auscultation Heart: Normal S1, Normal S2, Other (mild tachycardia) Abdomen: Soft, Other (mild lower abd tenderness) Extremities: No Edema, No Tenderness/Swelling Skin: No Rashes, No Breakdown Neuro: Normal Speech Psych/Mental Status: Mental Status NL Results/Procedures Lab Laboratory Tests 10/29/20 16:16: Glucometer 106 10/29/20 20:14: Glucometer 92 10/30/20 05:18: White Blood Count 6.9, Red Blood Count 4.28L, Hemoglobin 12.1L, Hematocrit 39L, Mean Corpuscular Volume 91, Mean Corpuscular Hemoglobin 28, Mean Corpuscular Hemoglobin Concent 31L, Red Cell Distribution Width 16.9H, Platelet Count 232, Mean Platelet Volume 10.1, Immature Granulocyte % (Auto) 1, Neutrophils (%) (Auto) 58, Lymphocytes (%) (Auto) 26, Monocytes (%) (Auto) 10, Eosinophils (%) (Auto) 4, Basophils (%) (Auto) 1, Neutrophils # (Auto) 4.0, Lymphocytes # (Auto) 1.8, Monocytes # (Auto) 0.7, Eosinophils # (Auto) 0.3, Basophils # (Auto) 0.1, Immature Granulocyte # (Auto) 0.1, Sodium Level 137, Potassium Level 3.6, Chloride Level 104, Carbon Dioxide Level 24, Anion Gap 9, Blood Urea Nitrogen 8, Creatinine 0.82, Estimat Glomerular Filtration Rate 99, BUN/Creatinine Ratio 10, Glucose Level 104, Calcium Level 9.9, Corrected Calcium 10.1, Total Bilirubin 0.5, Aspartate Amino Transf (AST/SGOT) 29, Alanine Aminotransferase (ALT/SGPT) 24, Alkaline Phosphatase 76, Total Protein 6.8, Albumin 3.7 10/30/20 06:08: Glucometer 115H 10/30/20 11:04: Glucometer 158H Microbiology 10/26/20 Urine Culture - Final, Complete NO GROWTH 10/22/20 C. difficile DNA Amplification - Final, Complete 10/22/20 C. difficile GDH Antigen & Toxins - Final, Complete 10/21/20 Blood Culture - Final, Complete No growth Assessment/Plan Assessment/Plan Assessment & Plan UTI - Treated with ceftriaxone - F/U outpatient with Dr. Luz C. difficile colitis - Treated with oral vancomycin - Questran given for diarrhea - Droplet precautions Chronic back pain - Continue with pain management Nurse discussed placement with social sciences chair today, no places are willing to take him so far. Discussed with pt that given his current status and insurance, we will likely be unable to find placement for him. Per PT, pt able to walk ad daniel. Pt likely can be d/c'd tomorrow with home health. Pt states that he has a cane at home, but does not have a walker. Plan to d/c tomorrow with home PT and walker. LAURA BOTELLO MD 10/30/20 9488: Subjective Subjective/Events-last exam Agree with above, patient states that he is feeling better. Has his daughter at home as primary ocular care technologist. Review of Systems General: No Chills; Fatigue, Malaise HEENT: No Eye Pain Pulmonary: No Dyspnea, No Cough Cardiovascular: No: Chest Pain, Edema Gastrointestinal: Abdominal Pain, Diarrhea; No: Nausea, Vomiting Genitourinary: Hematuria Musculoskeletal: back pain Neurological: Weakness, Incoordination Objective Exam General: Alert, Oriented X3, Cooperative HEENT: Mucous Memb Moist/[place] Lungs: Clear to Auscultation, Normal Air Movement Heart: Regular Rate, No Murmurs Abdomen: Normal Bowel Sounds, Soft, Other (mild lower abd tenderness) Extremities: No Edema, No Tenderness/Swelling Skin: No Rashes, No Breakdown Neuro: Normal Speech Psych/Mental Status: Mental Status NL Assessment/Plan Assessment/Plan (1) UTI (urinary tract infection) Status: Acute Assessment & Plan: 10/30: Continue IV antibiotics, will transition to PO at discharge, patient to push PO hydration (2) Retained ureteral stent Status: Acute (3) Essential (primary) hypertension Status: Chronic (4) C. difficile colitis Status: Acute Assessment & Plan: 10/30: Continue PO Vanc (5) Debility Status: Acute Assessment & Plan: 10/30: Discussed d.c with , patient will need walker at discharge. Plan for tomorrow Supervisory-Addendum Brief Verification & Attestation Participated in pt care: history, physical Personally performed: exam, history Care discussed with: Medical Student Procedures: n/a Verification and Attestation of Medical Student E/M Service A medical student performed and documented this service in my presence. I reviewed and verified all information documented by the medical student and made modifications to such information, when appropriate. I personally performed the physical exam and medical decision making. Laura Botello, Oct 30, 2020,14:54 ZAHRAA ARRIAGA Oct 30, 2020 12:44 LAURA BOTELLO MD Oct 30, 2020 14:53
--- NOTE | 2020-10-30 13:55 | Occupational Ther Daily Note ---
OT Current Status-Daily Note Subjective Pt alert, sitting up in recliner. Pt requested to lay back in bed. Pt agrees to therapy. No c/o pain. Mental Status/Objective Patient Orientation: Person, Place, Time, Situation Attachments: IV ADL-Treatment Pt able to ambulate using FWW to bathroom and back with SBA. Pt completed toilet hygiene and toilet transfer independently. Pt then ambulated to sink to wash hands independently. Pt able to go from sitting EOB to supine independently. After session, pt lying in bed with call light/phone in reach. All needs met in room. Therapy Code Descriptions/Definitions Functional [place] Measure: 0=Not Assessed/NA 4=Minimal Assistance 1=Total Assistance 5=Supervision or Setup 2=Maximal Assistance 6=Modified [place] 3=Moderate Assistance 7=Complete IndependenceSCALE: Activities may be completed with or without assistive devices. 7-Wcipdadruq-uqcpgvu completes the activity by him/herself with no assistance from a helper. 5-Set-up or Clean-up Assistance-helper sets up or cleans up; patient completes activity. [place] assists only prior to or following the activity. 4-Supervision or Touching Assistance-helper provides verbal cues and/or touching/steadying and/or contact guard assistance as patient completes activity. Assistance may be provided throughout the activity or intermittently. 3-Partial/Moderate Assistance-helper does LESS THAN HALF the effort. [place] lifts, holds or supports trunk or limbs, but provides less than half the effort. 2-Substantial/Maximal Assistance-helper does MORE THAN HALF the effort. [place] lifts or holds trunk or limbs and provides more than half the effort. 4-Iquqlwlel-qksofg does ALL the effort. Patient does none of the effort to complete the activity. Or, the assistance of 2 or more helpers is required for the patient to complete the activity. If activity was not attempted, code reason: 7-Patient Refused. 9-Not Applicable-not attempted and the patient did not perform the activity before the current illness, exacerbation or injury. 10-Not Attempted due to Environmental Limitations-(lack of equipment, weather restraints, etc.). 88-Not Attempted due to Medical Conditions or Safety Concerns. Toileting Hygiene (QC): 6 Toilet Transfer (QC): 6 OT [employer] Service Window Clerk Goals [facility] Goals Time Frame: Nov 08, 2020 Eating (QC): 6 Oral Hygiene (QC): 6 Toileting Hygiene (QC): 6 Shower/Bathe Self (QC): 4 Upper Body Dressing (QC): 5 Lower Body Dressing (QC): 4 On/Off Footwear (QC): 4 (With AE as needed.) Additional Goals: 1-Demonstrate ADL Tasks, 2-Verbalize Understanding, 3-Improv eStrength/Joseline 1=Demonstrate adherence to instructed precautions during ADL tasks. 2=Patient will verbalize/demonstrate understanding of assistive devices/modifications for ADL. 3=Patient will improve strength/tolerance for activity to enable patient to p erform ADL's. OT Education/Plan Problem List/Assessment Assessment: Decreased Activ Tolerance, Impaired Self-Care Skills Discharge Recommendations Plan/Recommendations: Continue POC Treatment Plan/Plan of Care Patient would benefit from OT for education, treatment and training to promote independence in ADL's, mobility, safety and/or upper extremity function for ADL's. Plan of Care: ADL Retraining, Functional Mobility, UE Funct Exercise/Act Treatment Duration: Nov 08, 2020 Frequency: 5 times per week Estimated Hrs Per Day: .25 hour per day Agreement: Yes Rehab Potential: Fair Time/GCodes Start Time: 13:30 Stop Time: 13:45 Total Time Billed (hr/min): 15 Billed Treatment Time 1 visit-ADL 1 (15 min) SADIA LOPEZ Oct 30, 2020 13:55
[2020-10-30 16:00] VITALS: BP 127/83
[2020-10-30] MEDS: BACLOFEN 10 MG (LIORESAL) TAB PO PRN (16:10)
[2020-10-30 19:53] VITALS: BP 129/79
[2020-10-30] MEDS: FENOFIBRATE 134 MG (LOFIBRA) CAPSULE PO SCH (22:34)
[2020-10-30] MEDS: TAMSULOSIN 0.4 MG (FLOMAX) CAP PO SCH (22:34)
[2020-10-30 23:58] VITALS: BP 124/82
[2020-10-31] MEDS: VANCOMYCIN 125 MG CAPSULE PO SCH ×3 (03:26→16:56)
[2020-10-31 04:07] VITALS: BP 100/71
[2020-10-31] MEDS: inSUlin ASPART (NovoLOG) 1 UNIT/0.01 ML (CHARGE PER UNIT) SC SCH ×3 (05:37→16:00)
[2020-10-31] MEDS: PANTOPRAZOLE 40 MG (PROTONIX) TAB PO SCH (06:54)
[2020-10-31] MEDS: MESALAMINE 1.2 GM PO SCH (06:55)
[2020-10-31] MEDS: HYDROcodone/APAP 5 MG/325 MG (LORTAB) TAB PO PRN (07:01)
[2020-10-31 07:21] LABS: CALCIUM 10.4 MG/DL (8.5-10.1); CREATININE SERUM 0.86 MG/DL (0.60-1.30)
[2020-10-31] MEDS: POTASSIUM CL 10MEQ/50ML IVPB 50 ML IV SCH (07:49)
[2020-10-31] MEDS: MAGNESIUM 1 GM/100 ML IVPB 100 ML IV SCH (07:50)
[2020-10-31] MEDS: KCL 20 MEQ TAB (K-DUR) PO SCH (07:50)
[2020-10-31 08:00] VITALS: BP 114/79
[2020-10-31] MEDS: DULoxetine 30 MG (CYMBALTA) CAP PO SCH (08:54)
[2020-10-31] MEDS: NIFEdipine ER 60 MG (PROCARDIA XL) TAB PO SCH (08:54)
[2020-10-31] MEDS: CHOLESTYRAMINE 4 GM (QUESTRAN LITE, PREVALITE) PKT PO SCH ×3 (08:54→16:56)
[2020-10-31] MEDS: lisINopril 10 MG (PRINIVIL) TABLET PO SCH (08:54)
[2020-10-31] MEDS: ENOXAPARIN 40 MG/0.4 ML (LOVENOX) SYR SQ SCH (08:54)
[2020-10-31] MEDS: GABAPENTIN 600 MG (NEURONTIN) TAB PO SCH ×3 (08:54→16:56)
[2020-10-31] MEDS: ALLOPURINOL 100 MG (ZYLOPRIM) TAB PO SCH (08:54)
[2020-10-31] MEDS: ASPIRIN E.C. 81 MG (ECOTRIN) TAB PO SCH (08:54)
[2020-10-31] MEDS: meTOprolol TARTRATE 25 MG (LOPRESSOR) TABLET PO SCH (08:54)
[2020-10-31] MEDS: FAMOTIDINE 20 MG (PEPCID) TABLET PO SCH (08:54)
[2020-10-31] MEDS: rOPINIRole 5 MG TAB (REQUIP) PO SCH ×2 (08:54→13:25)
--- NOTE | 2020-10-31 10:12 | Physical Therapy Daily Note ---
PT Daily Note-Current Subjective Patient agrees to PT. Mental Status Patient Orientation: Normal For Age Transfers SCALE: Activities may be completed with or without assistive devices. 8-Bhcngxkdhh-xfptowi completes the activity by him/herself with no assistance from a helper. 5-Set-up or Clean-up Assistance-helper sets up or cleans up; patient completes activity. [place] assists only prior to or following the activity. 4-Supervision or Touching Assistance-helper provides verbal cues and/or touching/steadying and/or contact guard assistance as patient completes activity. Assistance may be provided throughout the activity or intermittently. 3-Partial/Moderate Assistance-helper does LESS THAN HALF the effort. [place] lifts, holds or supports trunk or limbs, but provides less than half the effort. 2-Substantial/Maximal Assistance-helper does MORE THAN HALF the effort. [place] lifts or holds trunk or limbs and provides more than half the effort. 9-Qcqvyzmpr-goyygx does ALL the effort. Patient does none of the effort to complete the activity. Or, the assistance of 2 or more helpers is required for the patient to complete the activity. If activity was not attempted, code reason: 7-Patient Refused. 9-Not Applicable-not attempted and the patient did not perform the activity befo re the current illness, exacerbation or injury. 10-Not Attempted due to Environmental Limitations-(lack of equipment, weather re straints, etc.). 88-Not Attempted due to Medical Conditions or Safety Concerns. Lying to Sitting/Side of Bed(Q: 5 Sit to Stand (QC): 5 Chair/Kml-ua-[place] Xfer(QC): 5 Toilet Transfer (QC): 5 Gait Training Does the Patient Walk?: Yes Distance: 350' Walk 10 feet (QC): 5 Walk 50 ft with 2 Turns(QC): 5 Walk 150 ft (QC): 5 Gait Assistive Device: FWW safe and functional with no deviation Assessment Patient tolerated treatment well. Plan dismissal to [place] on this date per . PT Relish Maker Goals Relish Maker Goals PT Halfway Goals Time Frame: Nov 04, 2020 Roll Left & Right (QC): 6 Sit to Lying (QC): 6 Lying-Sitting on Side/Bed(QC): 6 Sit to Stand (QC): 6 Chair/Ktt-zk-Bmxzw Xfer(QC): 6 Toilet Transfer (QC): 6 Does the Patient Walk: Yes Walk 10 feet (QC): 6 Walk 50ft with 2 Turns (QC): 6 Walk 150 ft (QC): 6 PT Plan Treatment/Plan Treatment Plan: Discontinue PT Treatment Plan: Bed Mobility, Education, Functional Activity Joseline, Functional Strength, Gait, Safety, Therapeutic Exercise, Other Treatment Duration: Nov 04, 2020 Frequency: 6 times per week Estimated Hrs Per Day: .25 hour per day Patient and/or Family Agrees t: Yes Time/GCodes Time In: 936 Time Out: 945 Total Billed Treatment Time: 9 Total Billed Treatment 1 visit FA 9 min LUCA CONNELLY PT Oct 31, 2020 10:12
--- NOTE | 2020-10-31 11:30 | Progress Note ---
CORINAZAHRAA 10/31/20 1130: Subjective Subjective/Events-last exam CC: UTI, c. diff colititis Pt feeling similar to yesterday. Pt able to get up and walk around with walker. Reports still having diarrhea. Review of Systems General: No Chills; Fatigue, Malaise HEENT: No Eye Pain Pulmonary: No Dyspnea Gastrointestinal: Diarrhea; No: Constipation Genitourinary: No Dysuria; Hematuria Musculoskeletal: back pain Neurological: No: Change in speech, Confusion Focused Exam Time of Focused Exam: 08:00 Objective Exam Last Set of Vital Signs Vital Signs Date Time Temp Pulse Resp B/P (MAP) Pulse Ox O2 Delivery O2 Flow Rate FiO2 10/31/20 08:13 Room Air 10/31/20 08:00 35.9 100 20 114/79 (91) 95 Capillary Refill : Less Than 3 Seconds I&O Intake and Output 10/31/20 00:00 Intake Total 1880 ml Output Total 2275 ml Balance -395 ml Intake Oral 1880 ml Output Urine Total 2275 ml General: Alert, Oriented X3, Cooperative HEENT: Atraumatic, PERRLA, EOMI Neck: Supple Lungs: Clear to Auscultation Heart: Regular Rate, Normal S1, Normal S2 Abdomen: Soft, Other (mild tenderness to LLQ) Extremities: No Clubbing, No Edema, No Tenderness/Swelling Skin: No Rashes, No Breakdown Neuro: Normal Speech, Sensation Intact, Other (able to walk with walker) Results/Procedures Lab Laboratory Tests 10/30/20 15:36: Glucometer 98 10/30/20 20:19: Glucometer 104 10/31/20 05:20: Glucometer 103 10/31/20 05:40: Sodium Level 138, Potassium Level 4.0, Chloride Level 104, Carbon Dioxide Level 22, Anion Gap 12, Blood Urea Nitrogen 10, Creatinine 0.86, Estimat Glomerular Filtration Rate 94, BUN/Creatinine Ratio 12, Glucose Level 96, Calcium Level 10.4H, Magnesium Level 2.0 Microbiology 10/26/20 Urine Culture - Final, Complete NO GROWTH 10/22/20 C. difficile DNA Amplification - Final, Complete 10/22/20 C. difficile GDH Antigen & Toxins - Final, Complete 10/21/20 Blood Culture - Final, Complete No growth Assessment/Plan Assessment/Plan Assessment & Plan UTI - Treated with ceftriaxone - F/U outpatient with Dr. Luz C. difficile colitis - Treated with oral vancomycin - Questran given for diarrhea - Continue to monitor diarrhea, K+ improved to 4.0 today, no over signs of dehydration, VSS - Droplet precautions Chronic back pain - Continue with pain management [facility] accepted. Will d/c to this facility today. (1) UTI (urinary tract infection) Status: Acute Assessment & Plan: 10/30: Continue IV antibiotics, will transition to PO at discharge, patient to push PO hydration (2) Retained ureteral stent Status: Acute (3) Essential (primary) hypertension Status: Chronic (4) C. difficile colitis Status: Acute Assessment & Plan: 10/30: Continue PO Vanc (5) Debility Status: Acute Assessment & Plan: transition to [facility] LAURA BOTELLO MD 10/31/20 1321: Supervisory-Addendum Brief Verification & Attestation Participated in pt care: history, physical Personally performed: exam, history Care discussed with: Medical Student Procedures: n/a Verification and Attestation of Medical Student E/M Service A medical student performed and documented this service in my presence. I reviewed and verified all information documented by the medical student and made modifications to such information, when appropriate. I personally performed the physical exam and medical decision making. Laura Botello, Oct 31, 2020,23:56 See d/c summary ZAHRAA ARRIAGA Oct 31, 2020 11:30 LAURA OBTELLO MD Oct 31, 2020 23:57
[2020-10-31 12:00] VITALS: BP 114/79
--- NOTE | 2020-10-31 13:53 | Occupational Ther Daily Note ---
OT Current Status-Daily Note Subjective Pt alert, lying in bed. Pt states that he is discharging from hospital today and is just waiting on them to pick him up. Pt agrees to therapy. Mental Status/Objective Patient Orientation: Person, Place, Time, Situation ADL-Treatment Supine <--> EOB independently. Pt used FWW to ambulate to bathroom with SBA for safety. Pt then was able transfer on/off toilet independently then complete hygiene independently sitting on toilet. Pt then washed hands in sink. After therapy, pt lying in bed with call light/phone in reach. All needs met in room. Therapy Code Descriptions/Definitions Functional [place] Measure: 0=Not Assessed/NA 4=Minimal Assistance 1=Total Assistance 5=Supervision or Setup 2=Maximal Assistance 6=Modified [place] 3=Moderate Assistance 7=Complete IndependenceSCALE: Activities may be completed with or without assistive devices. 9-Bkyobblfdv-xokglyh completes the activity by him/herself with no assistance from a helper. 5-Set-up or Clean-up Assistance-helper sets up or cleans up; patient completes activity. [place] assists only prior to or following the activity. 4-Supervision or Touching Assistance-helper provides verbal cues and/or touching/steadying and/or contact guard assistance as patient completes activity. Assistance may be provided throughout the activity or intermittently. 3-Partial/Moderate Assistance-helper does LESS THAN HALF the effort. [place] lifts, holds or supports trunk or limbs, but provides less than half the effort. 2-Substantial/Maximal Assistance-helper does MORE THAN HALF the effort. [place] lifts or holds trunk or limbs and provides more than half the effort. 1-Voedmhpqe-pnkili does ALL the effort. Patient does none of the effort to complete the activity. Or, the assistance of 2 or more helpers is required for the patient to complete the activity. If activity was not attempted, code reason: 7-Patient Refused. 9-Not Applicable-not attempted and the patient did not perform the activity before the current illness, exacerbation or injury. 10-Not Attempted due to Environmental Limitations-(lack of equipment, weather restraints, etc.). 88-Not Attempted due to Medical Conditions or Safety Concerns. Toileting Hygiene (QC): 6 Toilet Transfer (QC): 6 OT Diaper Folder Goals Diaper Folder Goals Time Frame: Nov 08, 2020 Eating (QC): 6 Oral Hygiene (QC): 6 Toileting Hygiene (QC): 6 Shower/Bathe Self (QC): 4 Upper Body Dressing (QC): 5 Lower Body Dressing (QC): 4 On/Off Footwear (QC): 4 (With AE as needed.) Additional Goals: 1-Demonstrate ADL Tasks, 2-Verbalize Understanding, 3-ImproveStrength/[place] 1=Demonstrate adherence to instructed precautions during ADL tasks. 2=Patient will verbalize/demonstrate understanding of assistive devices/modifications for ADL. 3=Patient will improve strength/tolerance for activity to enable patient to perform ADL's. OT Education/Plan Discharge Recommendations Plan/Recommendations: Continue POC Treatment Plan/Plan of Care Patient would benefit from OT for education, treatment and training to promote independence in ADL's, mobility, safety and/or upper extremity function for ADL's. Plan of Care: ADL Retraining, Functional Mobility, UE Funct Exercise/Act Treatment Duration: Nov 08, 2020 Frequency: 5 times per week Estimated Hrs Per Day: .25 hour per day Agreement: Yes Rehab Potential: Fair Time/GCodes Start Time: 13:30 Stop Time: 13:40 Total Time Billed (hr/min): 10 Billed Treatment Time 1 visit-ADL 1 (10 min) SADIA LOPEZ Oct 31, 2020 13:53
--- NOTE | 2020-10-31 14:06 | Discharge Summary ---
Diagnosis/Chief Complaint Date of Admission Oct 21, 2020 at 22:20 Date of Discharge Discharge Diagnosis Problems/Diagnosis: (1) UTI (urinary tract infection) Assessment & Plan: 10/30: Continue IV antibiotics, will transition to PO at discharge, patient to push PO hydration Status: Acute (2) Retained ureteral stent Status: Acute (3) Essential (primary) hypertension Status: Chronic (4) C. difficile colitis Assessment & Plan: 10/30: Continue PO Vanc Status: Acute (5) Debility Assessment & Plan: transition to [facility] Status: Acute Discharge Summary-Simple/Stand Consultations Discharge Physical Examination Allergies: Coded Allergies: No Known Drug Allergies (Unverified , 12/21/17) Vitals & I&Os Vital Sign - Last 12Hours Date Time Temp Pulse Resp B/P (MAP) Pulse Ox O2 Delivery O2 Flow Rate FiO2 10/31/20 12:00 35.8 97 20 114/79 (91) 94 Room Air Intake and Output 10/31/20 00:00 Intake Total 1380 ml Output Total 1625 ml Balance -245 ml Hospital Course See final discharge diagnosis. Discharge Instructions to patient/family Please see electronic discharge instructions given to patient. Discharge Medications Reviewed and agree with Discharge Medication list on patient's Discharge Instruction sheet LAURA STRINGER MD Oct 31, 2020 14:06
[2020-10-31] MEDS ORDERED: VANC125C5 PO (14:09)
--- NOTE | 2020-10-31 14:14 | Discharge Summary ---
Discharge Summary Reconcile Patient Problems Problems Reviewed?: Yes Hospital Course Hospital Course Date of Admission: Oct 21, 2020 at 22:20 Admission Diagnosis : Family Physician/Provider: Freddy Renae MD Date of Discharge: 10/31/20 Discharge Diagnosis: UTI Retained Urethral Stent HTN C. Diff Debility Hospital Course: 49 yo M that presented with UTI and has uretal stent in place. Patient then developed C diff and was placed on PO vancomycin. No longer having liquid stools. Plan to d/c to SNF for continue PT to help with independence prior to going home. Labs and Pending Lab Test: Laboratory Tests 10/30/20 15:36: Glucometer 98 10/30/20 20:19: Glucometer 104 10/31/20 05:20: Glucometer 103 10/31/20 05:40: Sodium Level 138, Potassium Level 4.0, Chloride Level 104, Carbon Dioxide Level 22, Anion Gap 12, Blood Urea Nitrogen 10, Creatinine 0.86, Estimat Glomerular Filtration Rate 94, BUN/Creatinine Ratio 12, Glucose Level 96, Calcium Level 10.4H, Magnesium Level 2.0 10/31/20 11:47: Glucometer 114H Microbiology 10/26/20 Urine Culture - Final, Complete NO GROWTH 10/22/20 C. difficile DNA Amplification - Final, Complete 10/22/20 C. difficile GDH Antigen & Toxins - Final, Complete 10/21/20 Blood Culture - Final, Complete No growth Home Meds Active Vancomycin HCl 125 Mg Capsule 125 Mg PO Q6H 5 Days Reported Nexium (Esomeprazole Magnesium) 40 Mg Cap 40 Mg PO DAILY Baclofen 20 Mg Tablet 20 Mg PO TID PRN Sodium Bicarbonate 650 Mg Tablet 1,300 Mg PO BID TAKES 2 (650MG) TABS Gabapentin 600 Mg Tablet 600 Mg PO TID Omeprazole 40 Mg Capsule.dr 40 Mg PO DAILY Flomax (Tamsulosin HCl) 0.4 Mg Cap 0.4 Mg PO HS Nifedipine ER (Nifedipine) 60 Mg Tablet.er 60 Mg PO DAILY Lisinopril 10 Mg Tablet 10 Mg PO DAILY Metoprolol Tartrate 25 Mg Tablet 25 Mg PO BID Klor-Con M20 (Potassium Chloride) 20 Meq Tab.er.prt 40 Meq PO BID TAKES 2 (20MEQ) TABS Glimepiride 2 Mg Tablet 2 Mg PO DAILY Duloxetine HCl 60 Mg Capsule.dr 60 Mg PO DAILY TAKES 30MG + 60MG TOGETHER TO EQUAL 90MG DAILY Duloxetine HCl 30 Mg Capsule.dr 30 Mg PO DAILY TAKES 30MG + 60MG TOGETHER TO EQUAL 90MG DAILY Aspirin EC (Aspirin) 81 Mg Tablet.dr 81 Mg PO DAILY Tylenol Extra Strength (Acetaminophen) 500 Mg Tablet 1,000 Mg PO Q4H PRN Atorvastatin Calcium 40 Mg Tablet 40 Mg PO HS Famotidine 20 Mg Tablet 20 Mg PO DAILY Fenofibrate (Fenofibrate Nanocrystallized) 145 Mg Tablet 145 Mg PO HS [place]-3 Acid Ethyl Esters 1 Gm Capsule 2 Gm PO BID TAKES 2 (1GM) CAPSULES Aripiprazole 30 Mg Tablet 30 Mg PO DAILY Ropinirole HCl 5 Mg Tablet 5 Mg PO TID Allopurinol 100 Mg Tablet 100 Mg PO DAILY Multi-Vitamin Daily (Multivitamin) 1 Each Tablet 1 Tab PO DAILY Mesalamine 1.2 Gm Tablet.dr 4.8 Gm PO DAILY TAKES 4 (1.2GM) TABLETS Skilled NF Admit to: [facility] Certification (SNF) I certify that SNF services are required to be given on an inpatient basis because of the above named patient's need for fdc care on a continuing basis for the conditions(s) for which he/she was receiving inpatient hospital services prior to his/her transfer to the SNF. Prison Facility Order: Nursing Services, Physical Therapy-Evaluate & Treat Oxygen Delivery Method: Room Air Discharge Diet: ADA Diet, Cardiac Diet Resuscitation Status: Full Code Laura Botello Oct 31, 2020 14:10 Discharge Physical Exam General: Alert, Oriented X3, Cooperative, No Acute Distress HEENT: Mucous Memb Moist/[place] Lungs: Clear to Auscultation, Normal Air Movement Heart: Regular Rate, No Murmurs Abdomen: Normal Bowel Sounds, Soft, No Tenderness, No Masses Extremities: Other (1+ pitting edema equal bilaterally) Skin: No Rashes Neuro: Normal Speech, Sensation Intact, Cranial Nerves 3-12 NL Psych/Mental Status: Mental Status NL, Mood NL LAURA BOTELLO MD Oct 31, 2020 14:14
[2020-10-31 16:00] VITALS: BP 103/62
== END 2020-10-31 19:03 | DRG 698 ==
LOC: EDUNIT# 19:15 → ER 19:16 → 4TH 22:20
PROVIDERS: ADMIT Internal Medicine; ATTEND Family Medicine
DX: T83.592A Infection and inflammatory reaction due to indwelling ureteral stent, initial encounter (principal); A41.9 Sepsis, unspecified organism; E87.2 Acidosis; N39.0 Urinary tract infection, site not specified; Z68.42 Body mass index [BMI] 45.0-49.9, adult; A04.72 Enterocolitis due to Clostridium difficile, not specified as recurrent; N20.0 Calculus of kidney; E66.01 Morbid (severe) obesity due to excess calories; Z20.822 Contact with and (suspected) exposure to COVID-19; I25.10 Atherosclerotic heart disease of native coronary artery without angina pectoris; I10 Essential (primary) hypertension; E78.00 Pure hypercholesterolemia, unspecified; E78.5 Hyperlipidemia, unspecified; J44.9 Chronic obstructive pulmonary disease, unspecified; G25.81 Restless legs syndrome; G47.30 Sleep apnea, unspecified; K21.9 Gastro-esophageal reflux disease without esophagitis; M19.91 Primary osteoarthritis, unspecified site; E11.9 Type 2 diabetes mellitus without complications; F41.9 Anxiety disorder, unspecified; F31.9 Bipolar disorder, unspecified; M10.9 Gout, unspecified; M48.061 Spinal stenosis, lumbar region without neurogenic claudication; E87.6 Hypokalemia; D64.9 Anemia, unspecified; R20.8 Other disturbances of skin sensation; R00.0 Tachycardia, unspecified; Z87.891 Personal history of nicotine dependence; Z79.84 Long term (current) use of oral hypoglycemic drugs; Z79.82 Long term (current) use of aspirin; Z79.52 Long term (current) use of systemic steroids; Z83.3 Family history of diabetes mellitus
CPT/HCPCS: 36415; 51702; 71045; 74018; 74176; 80048; 80053; 80320; 81000; 82150; 82947; 83605; 83615; 83690; 83735; 84145; 84443; 84484; 85025; 85610; 85652; 85730; 86141; 87040; 87077; 87088; 87181; 87184; 87324; 87449; 87493; 87636; 93005; 93041; 96361; 96374; 96375

== ENCOUNTER 2021-03-13 17:55 | Emergency (ER) | payer MEDICAID ==
[~2021-03-13] VITALS: Ht 177 cm; Wt 145.0 kg
[2021-03-13 17:55] VITALS: BP 150/94
[~2021-03-13 17:55] MED LIST changes: +BACL20TA PO; +CYCL10TA25 PO; -LEVO500T80 PO; +LEVO500T81 PO; +NF-ESOM40C PO; +POTA-169 PO; +POTA-179 PO; -POTA20TA15 PO; -POTA20TA8 PO; +VANC125C5 PO
--- NOTE | 2021-03-13 18:08 | ED General ---
General Stated Complaint: CHEST PAIN/RUQ PAIN Source of Information: Patient, EMS, Custodial Records History of Present Illness Date Seen by Provider: Mar 13, 2021 Time Seen by Provider: 17:57 Initial Comments PT ARRIVES VIA EMS FROM [facility] PT HAS HAD "CHEST PAIN" OFF AND ON ALL DAY--POINTS TO RUQ AND EPIGASTRIC AREAS SITE OF PAIN NOTHING WORSENS OR IMPROVES PAIN. PT UNAWARE OF FEVER, EMS REPORTS THEY NOTED TEMP OF 100.2 AT SCENE. SNF HAD NOT CHECKED TEMP NO NAUSEA/VOMITING/DIARRHEA. HAD 2 BM'S TODAY C/O SLIGHT COUGH EMS REPORT THAT PT SMOKED 2 CIGARETTES JUST PRIOR TO THEIR ARRIVAL, THEN ASKED TO COME TO ER Allergies and Home Medications Allergies Coded Allergies: No Known Drug Allergies (Unverified , 12/21/17) Patient Home Medication List Acetaminophen (Tylenol Extra Strength) 500 Mg Tablet, 1,000 MG PO Q4H PRN for PAIN-MILD (1-4), (Reported) Entered as Reported by: NEPTALI PUCKETT on 01/15/19 105 Allopurinol (Allopurinol) 100 Mg Tablet, 100 MG PO DAILY, (Reported) Entered as Reported by: PASCUAL OLMOS on 10/03/17 1729 Aripiprazole (Aripiprazole) 30 Mg Tablet, 30 MG PO DAILY, (Reported) Entered as Reported by: NEPTALI PUCKETT on 01/15/19 1059 Aspirin (Aspirin EC) 81 Mg Tablet.dr, 81 MG PO DAILY, (Reported) Entered as Reported by: KERI BULLOCK on 05/09/20 1004 Atorvastatin Calcium (Atorvastatin Calcium) 40 Mg Tablet, 40 MG PO HS, (Reported) Entered as Reported by: NEPTALI PUCKETT on 01/15/19 1059 Baclofen (Baclofen) 20 Mg Tablet, 20 MG PO TID PRN for MUSCLE SPASMS, (Reported) Entered as Reported by: SUMANTH PACE on 10/22/20 0249 Cefdinir (Cefdinir) 300 Mg Capsule, 300 MG PO BID Prescribed by: KRISTIAN CONTRERAS on 03/13/212006 Duloxetine HCl (Duloxetine HCl) 30 Mg Capsule.dr, 30 MG PO DAILY, (Reported) Entered as Reported by: KERI BULLOCK on 05/09/20 1004 Duloxetine HCl (Duloxetine HCl) 60 Mg Capsule.dr, 60 MG PO DAILY, (Reported) Entered as Reported by: KERI BULLOCK on 05/09/20 1004 Esomeprazole Magnesium (Nexium) 40 Mg Cap, 40 MG PO DAILY, (Reported) Entered as Reported by: BALDEV DOWNS on 10/23/20 1511 Famotidine (Famotidine) 20 Mg Tablet, 20 MG PO DAILY, (Reported) Entered as Reported by: NEPTALI PUCKETT on 01/15/19 1059 Fenofibrate Nanocrystallized (Fenofibrate) 145 Mg Tablet, 145 MG PO HS, (Reported) Entered as Reported by: NEPTALI PUCKETT on 01/15/19 1059 Gabapentin (Gabapentin) 600 Mg Tablet, 600 MG PO TID, (Reported) Entered as Reported by: KERI BULLOCK on 05/09/20 1008 Glimepiride (Glimepiride) 2 Mg Tablet, 2 MG PO DAILY, (Reported) Entered as Reported by: KERI BULLOCK on 05/09/20 100 Lisinopril (Lisinopril) 10 Mg Tablet, 10 MG PO DAILY, (Reported) Entered as Reported by: KERI BULLOCK on 05/09/20 1004 Mesalamine (Mesalamine) 1.2 Gm Tablet.dr, 4.8 GM PO DAILY, (Reported) Entered as Reported by: JUNE ALANIZ on 07/04/17 1110 Metoprolol Tartrate (Metoprolol Tartrate) 25 Mg Tablet, 25 MG PO BID, (Reported) Entered as Reported by: KERI BULLOCK on 05/09/20 100 Multivitamin (Multi-Vitamin Daily) 1 Each Tablet, 1 TAB PO DAILY, (Reported) Entered as Reported by: JUNE ALANIZ on 07/04/17 1112 Nifedipine (Nifedipine ER) 60 Mg Tablet.er, 60 MG PO DAILY, (Reported) Entered as Reported by: KERI BULLOCK on 05/09/20 100 Nitrofurantoin Monohyd/M-Cryst (Macrobid 100 mg Capsule) 100 Mg Capsule, 1 TAB PO BID Prescribed by: KRISTIAN CONTRERAS on 03/13/212003 Esm[place]-3 Acid Ethyl Esters (Esmond-3 Acid Ethyl Esters) 1 Gm Capsule, 2 GM PO BID, (Reported) Entered as Reported by: NEPTALI PUCKETT on 01/15/19 1059 Omeprazole (Omeprazole) 40 Mg Capsule.dr, 40 MG PO DAILY, (Reported) Entered as Reported by: KERI BULLOCK on 05/09/20 1004 Potassium Chloride (Klor-Con M20) 20 Meq Tab.er.prt, 40 MEQ PO BID, (Reported) Entered as Reported by: KERI BULLOCK on 05/09/20 1004 Ropinirole HCl (Ropinirole HCl) 5 Mg Tablet, 5 MG PO TID, (Reported) Entered as Reported by: SHANNAN DIAZ on 05/22/18 0604 Sodium Bicarbonate (Sodium Bicarbonate) 650 Mg Tablet, 1,300 MG PO BID, (Reported) Entered as Reported by: KERI BULLOCK on 05/09/20 1012 Tamsulosin HCl (Flomax) 0.4 Mg Cap, 0.4 MG PO HS, (Reported) Entered as Reported by: KERI BULLOCK on 05/09/20 1004 Vancomycin HCl (Vancomycin HCl) 125 Mg Capsule, 125 MG PO Q6H Prescribed by: LAURA STRINGER on 10/31/20 1409 Past Hyphcpa-Comyte-Ihgqmd Hx Immunizations Up To Date Tetanus Booster (TDap): Unknown PED Vaccines UTD: No First/Initial COVID19 Vaccinat: JUNE 2020 Second COVID19 Vaccination Ronald: JUNE 2020 Seasonal Allergies Seasonal Allergies: No Past Medical History Surgery/Hospitalization HX: LEFT URETERAL STENT BACK SURGERY 2003 Surgeries: Yes Gallbladder, Orthopedic, Renal Respiratory: Yes COPD Currently Using CPAP: No Currently Using BIPAP: No Cardiac: Yes High Cholesterol, Hypertension Neurological: Yes Neuropathy Reproductive Disorders: No Sexually Transmitted Disease: No HIV/AIDS: No Genitourinary: Yes (RENAL STENTS) Kidney Infection, Prostate Problems, Kidney Stones, Renal Failure Gastrointestinal: Yes (S/P EVELIO) Colitis, Gastroesophageal Reflux, Gall Bladder Disease Musculoskeletal: Yes (BACK SX 2003;RESTLESS LEG SYNDROME) Arthritis, Chronic Back Pain, Gout Endocrine: Yes (MORBID OBESITY) Diabetes, Non-Insulin dep HEENT: Yes Cancer: No Psychosocial: Yes (BIPOLAR, POLYSUBSTANCE ABUSE) Anxiety, Bipolar, Depression Integumentary: No Blood Disorders: No Adverse Reaction/Blood Tranf: No Family Medical History Completed stroke DVT 19 MOTHER, , Onset:Unknown Diabetes mellitus 19 MOTHER, , Onset:Unknown G8 BROTHER, Onset:Unknown FH: gastric ulcer 19 FATHER, Onset:Unknown DVT/PE, Diabetes, GI Disease Physical Exam Vital Signs Vital Signs - First Documented 03/13/21 17:55 Temp 36.1 Pulse 102 Resp 18 B/P (MAP) 150/94 (112) Pulse Ox 96 Capillary Refill : Height, Weight, BMI Height: 5'10.00" Weight: 330lbs. 3.0oz. 149.331258vf; 44.28 BMI Method:Stated Focused Exam Lactate Level 03/13/21 18:10: Lactic Acid Level 1.47 Lactic Acid Level Laboratory Tests Test 03/13/21 18:10 Lactic Acid Level 1.47 MMOL/L (0.50-2.00) Progress/Results/Core Measures Suspected Sepsis SIRS Temperature: Pulse: Respiratory Rate: Laboratory Tests 03/13/21 18:10: White Blood Count 10.3 Blood Pressure / Mean: 03/13/21 18:10: Lactic Acid Level 1.47 Laboratory Tests 03/13/21 18:10: Creatinine 0.98, INR Comment 0.9, Platelet Count 239, Total Bilirubin 0.4 Results/Orders Lab Results Laboratory Tests Test 03/13/21 18:10 03/13/21 18:24 Range/Units White Blood Count 10.3 4.3-11.0 10^3/uL Red Blood Count 5.01 4.30-5.52 10^6/uL Hemoglobin 14.6 13.3-17.7 g/dL Hematocrit 45 40-54 % Mean Corpuscular Volume 89 80-99 fL Mean Corpuscular Hemoglobin 29 25-34 pg Mean Corpuscular Hemoglobin Concent 33 32-36 g/dL Red Cell Distribution Width 15.7 H 10.0-14.5 % Platelet Count 239 130-400 10^3/uL Mean Platelet Volume 10.1 9.0-12.2 fL Immature Granulocyte % (Auto) 2 % Neutrophils (%) (Auto) 58 42-75 % Lymphocytes (%) (Auto) 28 12-44 % Monocytes (%) (Auto) 9 0-12 % Eosinophils (%) (Auto) 4 0-10 % Basophils (%) (Auto) 1 0-10 % Neutrophils # (Auto) 5.9 1.8-7.8 10^3/uL Lymphocytes # (Auto) 2.9 1.0-4.0 10^3/uL Monocytes # (Auto) 0.9 0.0-1.0 10^3/uL Eosinophils # (Auto) 0.4 H 0.0-0.3 10^3/uL Basophils # (Auto) 0.1 0.0-0.1 10^3/uL Immature Granulocyte # (Auto) 0.2 H 0.0-0.1 10^3/uL Prothrombin Time 12.2 12.2-14.7 SEC INR Comment 0.9 0.8-1.4 Activated Partial Thromboplast Time 31 24-35 SEC Sodium Level 138 135-145 MMOL/L Potassium Level 4.0 3.6-5.0 MMOL/L Chloride Level 104 98-107 MMOL/L Carbon Dioxide Level 24 21-32 MMOL/L Anion Gap 10 5-14 MMOL/L Blood Urea Nitrogen 11 7-18 MG/DL Creatinine 0.98 0.60-1.30 MG/DL Estimat Glomerular Filtration Rate 81 BUN/Creatinine Ratio 11 Glucose Level 128 H 70-105 MG/DL Lactic Acid Level 1.47 0.50-2.00 MMOL/L Calcium Level 9.1 8.5-10.1 MG/DL Corrected Calcium 9.3 8.5-10.1 MG/DL Magnesium Level 2.0 1.6-2.4 MG/DL Total Bilirubin 0.4 0.1-1.0 MG/DL Aspartate Amino Transf (AST/SGOT) 20 5-34 U/L Alanine Aminotransferase (ALT/SGPT) 20 0-55 U/L Alkaline Phosphatase 85 40-136 U/L Total Creatine Kinase 53 30-200 U/L Creatine Kinase MB 1.4 <6.6 NG/ML Myoglobin 30.7 10.0-92.0 NG/ML Troponin I < 0.028 <0.028 NG/ML B-Type Natriuretic Peptide < 10.0 <100.0 PG/ML Total Protein 7.2 6.4-8.2 GM/DL Albumin 3.8 3.2-4.5 GM/DL Amylase Level 57 25-125 U/L Lipase 105 H 8-78 U/L Procalcitonin 0.11 H <0.10 NG/ML Influenza Type A Antigen NEGATIVE NEGATIVE Influenza Type B Antigen NEGATIVE NEGATIVE Urine Color YELLOW Urine Clarity CLEAR Urine pH 7.0 5-9 Urine Specific [place] 1.025 H 1.016-1.022 Urine Protein TRACE H NEGATIVE Urine Glucose (UA) NEGATIVE NEGATIVE Urine Ketones NEGATIVE NEGATIVE Urine Nitrite POSITIVE H NEGATIVE Urine Bilirubin NEGATIVE NEGATIVE Urine Urobilinogen 0.2 < = 1.0 MG/DL Urine Leukocyte Esterase 1+ H NEGATIVE Urine RBC (Auto) 2+ H NEGATIVE Urine RBC 2-5 H /HPF Urine WBC 25-50 H /HPF Urine Squamous Epithelial Cells 0-2 /HPF Urine Crystals NONE /LPF Urine Bacteria TRACE /HPF Urine Casts NONE /LPF Urine Mucus NEGATIVE /LPF Urine Culture Indicated CULTURE PENDING My Orders Orders - KRISTIAN CONTRERAS DO Cbc With Automated Diff (03/13/21 18:03) Magnesium (03/13/21 18:03) Chest 1 View, Ap/Pa Only (03/13/21 18:03) Ekg Tracing (03/13/21 18:03) Comprehensive Metabolic Panel (03/13/21 18:03) Myoglobin Serum (03/13/21 18:03) Protime With Inr (03/13/21 18:03) Partial Thromboplastin Time (03/13/21 18:03) O2 (03/13/21 18:03) Monitor-Rhythm Ecg Trace Only (03/13/21 18:03) Ed Iv/Invasive Line Start (03/13/21 18:03) Creatine Kinase (03/13/21 18:03) Creatine Kinase Mb (03/13/21 18:03) Lipase (03/13/21 18:03) Amylase (03/13/21 18:03) Bnp Samuel (03/13/21 18:03) Troponin I Samuel (03/13/21 18:03) Blood Culture (03/13/21 18:03) Sputum Culture (03/13/21 18:03) Urinalysis (03/13/21 18:03) Urine Culture (03/13/21 18:03) Ed Iv/Invasive Line Start (03/13/21 18:03) Ed Iv/Invasive Line Start (03/13/21 18:03) Vital Signs Adult Sepsis Patie Q15M (03/13/21 18:03) O2 (03/13/21 18:03) Remove Rings In Anticipation O (03/13/21 18:03) Lactic Acid Analyzer (03/13/21 18:03) Influenza A & B Antigens (03/13/21 18:03) Procalcitonin (Pct) (03/13/21 18:03) Ed Iv/Invasive Line Start (03/13/21 18:03) Ns Iv 1000 Ml (Sodium Chloride 0.9%) (03/13/21 18:15) Cefepime Injection (Maxipime Injection) (03/13/21 19:15) Gentamicin (Adult) Injection (Garamycin (03/13/21 19:15) Ct Abd/Pelvis Wo(Kidney Stone) (03/13/21 19:04) Ct Chest Wo (03/13/21 19:04) Medications Given in ED Current Medications Medications Dose Ordered Sig/Saba Route Start Time Stop Time Status Last Admin Dose Admin Cefepime HCl 1000 mg/Sodium Chloride 50 ml @ 100 mls/hr ONCE ONCE IV 03/13/21 19:15 03/13/21 19:44 DC 03/13/21 19:52 100 MLS/HR Vital Signs/I&O 03/13/21 03/13/21 17:55 19:41 Temp 36.1 36.3 Pulse 102 Resp 18 B/P (MAP) 150/94 (112) Pulse Ox 96 Capillary Refill : Departure Impression Primary Impression: UTI WITH URETERAL STENT IN PLACE Additional Impressions: Right sided abdominal pain RLL pneumonia Disposition: XF SNF Condition: Stable Departure-Patient Inst. Decision time for Depature: 20:03 Referrals: ÁNGEL CASPER MD (PCP/Family) Primary Care Physician LINO GONZALES MD Patient Instructions: Abdominal Pain, Adult ED, Urinary Tract Infection, Adult (DC) Add. Discharge Instructions: CONTINUE YOUR REGULAR MEDICATIONS PRESCRIBED KEEP YOUR APPOINTMENT WITH DR. GONZALES TOMORROW FOLLOW UP WITH DR. GAR THIS WEEK FOR FURTHER CARE Scripts Cefdinir (Cefdinir) 300 Mg Capsule 300 MG PO BID, #20 CAP Prov: DIANE,KRISTIAN K DO 03/13/21 Nitrofurantoin Monohyd/M-Cryst (Macrobid 100 mg Capsule) 100 Mg Capsule 1 TAB PO BID, #20 CAP Prov: DIANE,KRISTIAN K DO 03/13/21 DIANE,KRISTIAN K DO Mar 13, 2021 18:08
[2021-03-13] MEDS ORDERED: NS IV 1000 ML 1,000 ML IV SCH (18:15)
[2021-03-13 18:24] LABS: BASOPHILS # (AUTO) 0.1 10^3/uL (0.0-0.1); BASOPHILS % (AUTO) 1 % (0-10); EOSINOPHILS # (AUTO) 0.4 10^3/uL (0.0-0.3); EOSINOPHILS % (AUTO) 4 % (0-10); HEMATOCRIT 45 % (40-54); HEMOGLOBIN 14.6 g/dL (13.3-17.7); LYMPHOCYTES # (AUTO) 2.9 10^3/uL (1.0-4.0); LYMPHOCYTES % (AUTO) 28 % (12-44); MEAN CORPUSCULAR HEMOGLOBIN 29 pg (25-34); MEAN CORPUSCULAR HGB CONC 33 g/dL (32-36); MEAN CORPUSCULAR VOLUME 89 fL (80-99); MEAN PLATELET VOLUME 10.1 fL (9.0-12.2); MONOCYTES # (AUTO) 0.9 10^3/uL (0.0-1.0); MONOCYTES % (AUTO) 9 % (0-12); NEUTROPHILS # (AUTO) 5.9 10^3/uL (1.8-7.8); NEUTROPHILS % (AUTO) 58 % (42-75); PLATELET COUNT 239 10^3/uL (130-400); WHITE BLOOD COUNT 10.3 10^3/uL (4.3-11.0)
[2021-03-13 18:30] LABS: BILIRUBIN,URINE NEGATIVE (NEGATIVE); CLARITY,URINE CLEAR; COLOR,URINE YELLOW; GLUCOSE, URINE (UA) NEGATIVE (NEGATIVE); KETONES,URINE NEGATIVE (NEGATIVE); LEUKOCYTE ESTERASE ,URINE 1+ (NEGATIVE); NITRITE,URINE POSITIVE (NEGATIVE); PROTEIN,URINE TRACE (NEGATIVE)
[2021-03-13 18:35] LABS: ALBUMIN 3.8 GM/DL (3.2-4.5)
[2021-03-13 18:37] LABS: CALCIUM 9.1 MG/DL (8.5-10.1); INR 0.9 (0.8-1.4); PROTHROMBIN TIME PATIENT 12.2 SEC (12.2-14.7)
[2021-03-13 18:38] LABS: TOTAL PROTEIN 7.2 GM/DL (6.4-8.2)
[2021-03-13 18:40] LABS: BILIRUBIN,TOTAL 0.4 MG/DL (0.1-1.0)
[2021-03-13 18:42] LABS: CREATININE SERUM 0.98 MG/DL (0.60-1.30)
[2021-03-13 18:53] LABS: CREATINE KINASE MB 1.4 NG/ML (<6.6)
--- NOTE | 2021-03-13 18:54 | Diagnostic Imaging Report ---
INDICATION: Chest pain COMPARISON: 10/21/2020 FINDINGS: Single view of the chest demonstrates cardiac enlargement and mild central vascular congestion. There was no pneumothorax or effusion. Osseous structures are normal. IMPRESSION: Cardiac enlargement and mild central vascular congestion. Dictated by: Dictated on workstation # [id number]
[2021-03-13 18:58] LABS: BACTERIA,URINE TRACE /HPF; SQUAMOUS EPITHELIAL CELL,UR 0-2 /HPF; WBC,URINE 25-50 /HPF
[2021-03-13] MEDS ORDERED: GENTAMICIN (ADULT) INJECTION 0.1 MG in NS (IVPB) 100 ML INJ ONE (19:15)
[2021-03-13] MEDS ORDERED: CEFEPIME INJECTION 1,000 MG in NS (IVPB) 50 ML IV ONE (19:15)
--- NOTE | 2021-03-13 19:48 | Diagnostic Imaging Report ---
PROCEDURE: CT urinary tract, rule out kidney stone. TECHNIQUE: Multiple contiguous axial images were obtained through the abdomen and pelvis without the use of intravenous contrast. Auto Exposure Controls were utilized during the CT exam to meet ALARA standards for radiation dose reduction. INDICATION: Right upper quadrant pain and abdominal pain. COMPARISON is made with prior CT from 10/21/2020. FINDINGS: The lung bases are clear. The liver is unremarkable. The gallbladder is surgically absent. There is no biliary ductal dilatation. The pancreas and spleen are unremarkable. There is no adrenal mass. There are nonobstructing calculi in the right kidney, the largest 8 mm in size. There is a left-sided stent with the proximal component near the UPJ and extending into the urinary bladder. A large calculus in the lower pole calyx on the left is again noted measuring 13 mm. No definite calculi along the course of the stent are identified. Aorta is unremarkable. Bowel loops are normal caliber. There is no free fluid or fluid collection identified. Chronic changes at the L2-L3 level is similar to prior exam. IMPRESSION: Bilateral nonobstructing nephrolithiasis. Left-sided nephroureteral stent remains in place. No definite calculi along the course of the stent are identified. No acute feature is identified. Dictated by: Dictated on workstation # [id number]
--- NOTE | 2021-03-13 19:50 | Diagnostic Imaging Report ---
PROCEDURE: CT chest without contrast. TECHNIQUE: Multiple contiguous axial images were obtained through the chest without the use of intravenous contrast. Auto Exposure Controls were utilized during the CT exam to meet ALARA standards for radiation dose reduction. INDICATION: Chest and abdominal pain COMPARISON: None. FINDINGS: Heart size is slightly enlarged with coronary artery disease. There is no pericardial effusion. No lymphadenopathy is identified. There is a tiny infiltrate in the lateral right lung base. The left lung is clear. There is no pneumothorax or effusion. Visualized osseous structures and upper abdominal solid organs are intact. The gallbladder is surgically absent. IMPRESSION: 1. Coronary artery disease. 2. Tiny focal infiltrate right lung base. 3. Surgically absent gallbladder. Dictated by: Dictated on workstation # [id number]
[2021-03-13] MEDS ORDERED: NITR-65 PO (20:04)
[2021-03-13] MEDS ORDERED: CEFD300C3 PO (20:07)
[2021-03-13] MEDS ORDERED: NS (IVPB) 50 ML ONE (20:30)
== END 2021-03-13 21:15 ==
LOC: EDUNIT# 17:59 → ER 18:02
DX: T83.592A Infection and inflammatory reaction due to indwelling ureteral stent, initial encounter (principal); N39.0 Urinary tract infection, site not specified; J18.1 Lobar pneumonia, unspecified organism; J44.9 Chronic obstructive pulmonary disease, unspecified; I10 Essential (primary) hypertension; K21.9 Gastro-esophageal reflux disease without esophagitis; E66.01 Morbid (severe) obesity due to excess calories; E78.00 Pure hypercholesterolemia, unspecified; M10.9 Gout, unspecified; F41.9 Anxiety disorder, unspecified; F31.9 Bipolar disorder, unspecified; E11.9 Type 2 diabetes mellitus without complications; F17.210 Nicotine dependence, cigarettes, uncomplicated; Z68.41 Body mass index [BMI] 40.0-44.9, adult; Z79.899 Other long term (current) drug therapy; Z79.82 Long term (current) use of aspirin
CPT/HCPCS: 36415; 71045; 71250; 74176; 80053; 81000; 82150; 82550; 82553; 83605; 83690; 83735; 83874; 83880; 84145; 84484; 85025; 85610; 85730; 87040; 87077; 87088; 87181; 87184; 87804; 93005; 93041; 96374; 96375

== ENCOUNTER 2021-03-23 12:50 | Outpatient (CLI) | payer MEDICAID ==
[~2021-03-23] VITALS: Ht 177.8 cm; Wt 145.2 kg
[~2021-03-23 12:50] MED LIST changes: -KETO10TA PO
[2021-03-27] MEDS ORDERED: NITR-65 PO (08:53)
[2021-03-27] MEDS ORDERED: TMSL.4C PO (08:53)
[2021-03-27] MEDS ORDERED: KETO10TA PO (08:53)
== END 2021-03-26 15:40 | disposition home or self-care (01) ==
LOC: PREOP 12:50
PROVIDERS: ATTEND Urology
DX: Z01.818 Encounter for other preprocedural examination (principal)

== ENCOUNTER → 2021-03-23 | Outpatient (CLI) | payer MEDICAID ==
[~2021-03-23] MED LIST changes: +CEFD300C3 PO; +KETO10TA PO
--- NOTE | 2021-03-23 10:56 | Diagnostic Imaging Report ---
ABDOMEN/KUB 1VIEW INDICATION: Left renal stone. COMPARISON: 03/13/2021 TECHNIQUE: AP view of the abdomen FINDINGS: The 13 mm rounded stone in the lower pole of the left kidney maintains stable position when compared to prior CT. Stable left nephroureteral stent. Calcified phleboliths is present in the right lower aspect of the hemipelvis. Cholecystectomy clips are noted. Nonobstructive bowel gas pattern. IMPRESSION: 1. No change in the 13 mm left renal stone. Dictated by: Dictated on workstation # [id number]
== END ==
LOC: RAD 09:36
PROVIDERS: ATTEND Urology
DX: N20.0 Calculus of kidney (principal)
CPT/HCPCS: 74018

== ENCOUNTER 2021-03-27 06:02 | Day surgery (SDC) | payer MEDICAID ==
[~2021-03-27] VITALS: Ht 177.8 cm; Wt 145.2 kg
[2021-03-27] VITALS (10 sets, daily range): BP systolic 99–147; BP diastolic 66–98
[2021-03-27] MEDS ORDERED: cefTRIAXone 1 GM PRE-MIX 50 ML IV ONE (06:15)
[2021-03-27] MEDS: LACTATED RINGERS 1,000 ML IV PRN ×2 (06:27→08:52)
--- NOTE | 2021-03-27 07:14 | Progress Note-Pre Operative ---
Pre-Operative Progress Note H&P Reviewed The H&P was reviewed, patient examined and no changes noted. Date Seen by Provider: Mar 27, 2021 Time Seen by Provider: 07:14 Date H&P Reviewed: Mar 27, 2021 Time H&P Reviewed: 07:14 Pre-Operative Diagnosis: LT RENAL STONE LINO GONZALES MD Mar 27, 2021 07:14
[2021-03-27] MEDS ORDERED: FUROSEMIDE 40 MG/4 ML INJ (LASIX) ONE (07:21)
[2021-03-27] MEDS ORDERED: LIDOCAINE PF 2% 5 ML (XYLOCAINE) VIAL ONE (07:21)
[2021-03-27] MEDS ORDERED: KETOROLAC 30 MG/ML VIAL ONE (07:21)
[2021-03-27] MEDS ORDERED: ONDANSETRON 4 MG/2 ML (SDV) Z0FRAN ONE (07:21)
[2021-03-27] MEDS ORDERED: MIDAZOLAM 2 MG/2 ML (VERSED) VIAL ONE (07:21)
[2021-03-27] MEDS ORDERED: proPOfol 200 MG/20 ML (DIPRIVAN) VIAL IV ONE (07:21)
[2021-03-27] MEDS ORDERED: fentaNYL INJ 100 MCG/2 ML AMP ONE ×2 (07:21→10:15)
--- NOTE | 2021-03-27 07:32 | Progress Note-Post Operative ---
Post-Operative Progess Note Surgeon (s)/Television Journalist (s) Surgeon LINO GONZALES MD Television Journalist: NONE Pre-Operative Diagnosis LT RENAL STONE Post-Operative Diagnosis SAME Procedure & Operative Findings Date of Procedure 03/27/21 Procedure Performed/Findings LT ESWL Anesthesia Type GENERAL Estimated Blood Loss Estimated blood loss (mL): NONE Specimens/Packing Specimens Removed NONE Packing: NONE LINO GONZALES MD Mar 27, 2021 07:31
--- NOTE | 2021-03-27 07:34 | Discharge Inst-Urology ---
Discharge Inst-Urology Reconcile Patient Problems Problems Reviewed?: Yes Final Diagnosis LT RENAL STONE Patient Instructions/Follow Up Plan/Assessment/Instructions Please make appointment to been seen in office Sunday 04/09, KUB prior to it. KUB on way home Post ESWL instructions Increase oral fluids for 48 hours and then as needed. Diet and Activity as tolerated. If questions or concerns contact your physician Or seek help at emergency department. LINO GONZALES MD Mar 27, 2021 07:34
--- NOTE | 2021-03-27 07:47 | Diagnostic Imaging Report ---
INDICATION: ESWL EXAMINATION: Abdomen 03/27/2021 COMPARISON: 03/23/2021 FINDINGS: There is a persistent hyperdensity in the left mid to lower abdomen. Nonspecific with an adjacent tubular structure possibly a ureteral stent extending into the pelvis. There is a calcification in the right hemipelvis stable from previous imaging. There is a vague density in the right mid abdomen possibly a right renal stone. There are clips in the right upper quadrant consistent with previous cholecystectomy. No free air is seen. There is a nonobstructive bowel gas pattern. IMPRESSION: 1. Stable density seen bilaterally with a stent on the left. 2. Nonobstructive bowel gas pattern. Dictated by: Dictated on workstation # [id number]
[2021-03-27] MEDS ORDERED: SEVOFLURANE (ULTANE) 15 ML INHAL SOLN ONE (08:05)
[2021-03-27] MEDS ORDERED: NITR-65 PO (08:53)
[2021-03-27] MEDS ORDERED: TMSL.4C PO (08:53)
[2021-03-27] MEDS ORDERED: KETO10TA PO (08:53)
[2021-03-27] MEDS ORDERED: fentaNYL INJ 100 MCG/2 ML AMP IVP ONE ×2 (10:15→11:15)
--- NOTE | 2021-03-27 10:23 | Diagnostic Imaging Report ---
INDICATION: POST ESWL. TECHNIQUE: 2 supine view of the abdomen 9:50 AM CORRELATION STUDY: 03/27/2021 FINDINGS: Double pigtail left ureteral stent remains in place. A previously noted large rounded calcification over the left renal silhouette is no longer demonstrated. Small calcification right superior pole, unchanged. No definitive calcification along the expected course of either ureter. There is noted a large amount of overlying bowel gas and stool which does obscure detail. IMPRESSION: 1. Stable positioning left ureteral stent. 2. Previously noted large rounded calcification left renal silhouette not demonstrated on follow-up. 3. Calcification of the superior pole right kidney, stable. Dictated by: Dictated on workstation # [id number]
--- NOTE | 2021-03-27 10:54 | Anesthesia-General Post-Op ---
General Patient Condition Mental Status/LOC: Same as Preop Cardiovascular: Satisfactory Nausea/Vomiting: Absent Respiratory: Satisfactory Pain: Controlled Complications: Absent Post Op Complications Complications None Follow Up Care/Instructions Patient Instructions None needed. Anesthesia/Patient Condition Patient Condition Patient is doing well, no complaints, stable vital signs, no apparent adverse anesthesia problems. No complications reported per nursing. NILSA PERRY CRNA Mar 27, 2021 10:54
[2021-03-27 12:09] LABS: BASOPHILS # (AUTO) 0.1 10^3/uL (0.0-0.1); BASOPHILS % (AUTO) 1 % (0-10); EOSINOPHILS # (AUTO) 0.3 10^3/uL (0.0-0.3); EOSINOPHILS % (AUTO) 3 % (0-10); HEMATOCRIT 42 % (40-54); HEMOGLOBIN 13.9 g/dL (13.3-17.7); LYMPHOCYTES # (AUTO) 1.8 10^3/uL (1.0-4.0); LYMPHOCYTES % (AUTO) 22 % (12-44); MEAN CORPUSCULAR HEMOGLOBIN 29 pg (25-34); MEAN CORPUSCULAR HGB CONC 33 g/dL (32-36); MEAN CORPUSCULAR VOLUME 89 fL (80-99); MONOCYTES # (AUTO) 0.7 10^3/uL (0.0-1.0); MONOCYTES % (AUTO) 8 % (0-12); NEUTROPHILS # (AUTO) 5.6 10^3/uL (1.8-7.8); NEUTROPHILS % (AUTO) 66 % (42-75); PLATELET COUNT 205 10^3/uL (130-400); WHITE BLOOD COUNT 8.5 10^3/uL (4.3-11.0)
--- NOTE | 2021-03-27 12:52 | Diagnostic Imaging Report ---
PROCEDURE: CT abdomen without contrast. TECHNIQUE: Multiple contiguous axial images were obtained through the abdomen without the use of intravenous contrast. Auto Exposure Controls were utilized during the CT exam to meet ALARA standards for radiation dose reduction. INDICATION: Left renal calculus. Pain status post lithotripsy. Abdominal distention. COMPARISON: 03/13/2021. FINDINGS: Included portions of the lung bases show mild atelectasis bilaterally. CT ABDOMEN: Indwelling left-sided double-J ureteral stent is identified. Proximal pigtail is just above the UPJ. Distal portions of the stent are not included in the [id number], as CT of the abdomen only was performed. There has been interval fragmentation of previously described dominant calculus within the inferior pole of the left kidney. Multiple small calculi are now identified within several calyces as well as within the renal pelvis of the left kidney. There is no hydronephrosis. Punctate nonobstructive calculi are also identified within the inferior and superior pole calyces of the right kidney. No calculi are seen within the included portions of the left ureter. Several subtle rounded parenchymal hypodensities are identified bilaterally may be on the basis of small renal cysts. These are incompletely characterized on this noncontrast study. The adrenal glands, spleen, pancreas, and liver have an unremarkable noncontrast CT appearance. Normal appendix is identified. Included small bowel loops are nondistended. There is no loculated fluid collection, free fluid, nor free air within the abdomen. No abnormal mesenteric or retroperitoneal adenopathy is seen. Osseous structures show no acute abnormalities. IMPRESSION: 1. Interval fragmentation of previously described dominant calculus within the inferior pole of the left kidney. Multiple fragmented calcifications now reside within the left renal pelvis and several calyces. 2. Indwelling double-J ureteral stent is identified. Superior portion of the stent appears appropriately positioned. 3. Additional punctate nonobstructive right renal calculi. Dictated by: Dictated on workstation # [id number]
--- NOTE | 2021-03-27 13:39 | OPERATIVE REPORT ---
DATE OF SERVICE: 03/27/2021 PREOPERATIVE DIAGNOSIS: Left renal stone. POSTOPERATIVE DIAGNOSIS: Left renal stone. OPERATION PERFORMED: Left ESWL. SURGEON: Genaro Gonzales MD. ANESTHESIA: General. COMPLICATIONS: None. DESCRIPTION OF PROCEDURE: Under satisfactory general anesthesia, the patient in supine position on the ESWL table, the left renal stone was localized. Shocks were delivered at a kV of 6, a total of 2500 shocks nicely fragmented the stone, but not complete satisfaction because of the size of the stone and the size of the patient. The patient received 40 mg of Lasix and 30 mg of Toradol IV at the end of the procedure. He tolerated the procedure and anesthesia well and was sent to recovery room in a stable condition. PLAN: We will see him back in two weeks with a KUB and probably re-ESWL in two weeks. This was previously explained to the patient preoperatively. Job ID: [id number] DocumentID: [id number] Dictated Date: 03/27/2021 08:01:20 Trip Follower Date: 03/27/2021 12:23:36 Dictated By: GENARO GONZALES MD
== END 2021-03-27 12:50 | disposition home or self-care (01) ==
LOC: SDC 06:02
PROVIDERS: ATTEND Urology
DX: N20.0 Calculus of kidney (principal); I10 Essential (primary) hypertension; E11.9 Type 2 diabetes mellitus without complications; K21.9 Gastro-esophageal reflux disease without esophagitis; M10.9 Gout, unspecified; J44.9 Chronic obstructive pulmonary disease, unspecified; F31.9 Bipolar disorder, unspecified; G47.33 Obstructive sleep apnea (adult) (pediatric); Z99.89 Dependence on other enabling machines and devices; Z79.899 Other long term (current) drug therapy
CPT/HCPCS: 36415; 74018; 74150; 85025; 87081

== ENCOUNTER → 2021-04-06 | Outpatient (CLI) | payer MEDICAID ==
[~2021-04-06] MED LIST changes: +KETO10TA PO
--- NOTE | 2021-04-06 12:42 | Diagnostic Imaging Report ---
INDICATION: Left renal stone and left upper quadrant pain. TIME OF EXAM: 12:02 PM Correlation is made with prior abdominal radiograph from 03/27/2021. FINDINGS: There are surgical clips in gallbladder fossa. Calcific density overlies the right renal shadow upper pole. There are some calcific densities overlying the lower pole of the left renal shadow. A left-sided double-J nephroureteral stent is noted. There is some calcific densities adjacent to the proximal aspect of the stent at the level of L4. No other calculi along the mid or distal aspect of the stent are identified. Bowel gas pattern is unremarkable. There is no free air. IMPRESSION: Bilateral nephrolithiasis. There is a double-J nephroureteral stent on the left. There is what appear to be calcific fragments along the proximal aspect of the stent at the level of L4. Dictated by: Dictated on workstation # [id number]
== END ==
LOC: RAD 11:35
PROVIDERS: ATTEND Urology
DX: N20.0 Calculus of kidney (principal); Z96.0 Presence of urogenital implants
CPT/HCPCS: 74018

== ENCOUNTER → 2021-04-09 | Outpatient (CLI) | payer MEDICAID ==
--- NOTE | 2021-04-09 16:27 | Diagnostic Imaging Report ---
INDICATION: Left renal calculus. Status post ESWL. COMPARISON: 04/06/2021. FINDINGS: Two frontal radiographic views of the abdomen were obtained and again show indwelling left-sided double-J ureteral stent. Also again identified is 5-6 mm rounded opacity projecting over the cephalad portions of the stent. This may be on the basis of retained ureteral calculus. No unexpected radiopaque foreign bodies are seen. Small bowel loops are nondistended. There is no large collection of free intraperitoneal air. Osseous structures show age-related degenerative changes. IMPRESSION: 1. Redemonstration of left-sided double-J ureteral stent with probable retained calculus within the proximal ureter. 2. Nonobstructed small bowel gas pattern. Dictated by: Dictated on workstation # [id number]
== END ==
LOC: RAD 15:11
PROVIDERS: ATTEND Urology
DX: N20.0 Calculus of kidney (principal); Z96.0 Presence of urogenital implants
CPT/HCPCS: 74018

== ENCOUNTER → 2021-04-30 | Outpatient (CLI) | payer MEDICAID ==
--- NOTE | 2021-04-30 16:08 | Diagnostic Imaging Report ---
INDICATION: Left renal calculus. Status post ESWL. COMPARISON: 04/09/2021 FINDINGS: 2 frontal radiographic views of the abdomen were obtained and again demonstrate indwelling left-sided double-J ureteral stent. Stent appears to be in stable position. Faint extraosseous calcification measuring 5 mm projects just medial to the stent at the level of the superior endplate of L4. Findings could relate to retained ureteral calculus. Additional 4 mm calculus projects over the lateral margins of the inferior pole of the left kidney. Small bowel loops are nondistended. There is no large collection of free intraperitoneal air. No unexpected opaque foreign bodies are seen. Osseous structures show advanced collapse of the L2-L3 intervertebral disc space and adjacent endplates. IMPRESSION: 1. Redemonstration of indwelling left-sided double-J ureteral stent and probable retained proximal ureteral calculus. 2. Additional left renal calculus. 3. Nonobstructed small bowel gas pattern. Dictated by: Dictated on workstation # [id number]
== END ==
LOC: RAD 15:36
PROVIDERS: ATTEND Urology
DX: N20.0 Calculus of kidney (principal)
CPT/HCPCS: 74018

== ENCOUNTER 2021-05-13 18:01 | Emergency (ER) | payer MEDICAID ==
[~2021-05-13] VITALS: Ht 177 cm; Wt 145.0 kg
[2021-05-13 18:40] LABS: BASOPHILS # (AUTO) 0.1 10^3/uL (0.0-0.1); BASOPHILS % (AUTO) 1 % (0-10); EOSINOPHILS # (AUTO) 0.3 10^3/uL (0.0-0.3); EOSINOPHILS % (AUTO) 4 % (0-10); HEMATOCRIT 44 % (40-54); HEMOGLOBIN 14.3 g/dL (13.3-17.7); LYMPHOCYTES # (AUTO) 2.7 10^3/uL (1.0-4.0); LYMPHOCYTES % (AUTO) 32 % (12-44); MEAN CORPUSCULAR HEMOGLOBIN 30 pg (25-34); MEAN CORPUSCULAR HGB CONC 33 g/dL (32-36); MEAN CORPUSCULAR VOLUME 91 fL (80-99); MEAN PLATELET VOLUME 10.2 fL (9.0-12.2); MONOCYTES # (AUTO) 0.7 10^3/uL (0.0-1.0); MONOCYTES % (AUTO) 8 % (0-12); NEUTROPHILS # (AUTO) 4.5 10^3/uL (1.8-7.8); NEUTROPHILS % (AUTO) 53 % (42-75); PLATELET COUNT 235 10^3/uL (130-400); WHITE BLOOD COUNT 8.4 10^3/uL (4.3-11.0)
--- NOTE | 2021-05-13 18:40 | ED Psychosocial ---
General Chief Complaint: Psych/Social Disorder Stated Complaint: SUICIDAL IDEATION Nursing Triage Note: PT PRESENTS TO ED WITH COMPLAINTS OF SUICIDAL IDEATION. PT REPORTS "I WANT TO HIT MY HEAD AGAINST THE WALL UNTIL I PASS OUT." [facility] STAFF REPORTS PT HAS BEEN HAVING ISSUES WITH HIS BROTHER AND EX THAT HAVE INCREASED HIS STRESS. Source: patient Exam Limitations: no limitations (SETH ROCKWELL MED STUDENT) History of Present Illness Date Seen by Provider: May 13, 2021 Time Seen by Provider: 18:22 Initial Comments Mr. Forte is a 50yo male with PMH of depression w/ antidepressant treatment presents today from [facility] due to suicidal thoughts. He states that he has suicidal thoughts that seem to come and go normally but it is a little worse than usual today. States that he began having these feelings around 1400 today. He does not think there was an inciting event or more stress than usual lately that would've triggered these feelings. He does see a psych provider and last visited them a couple of weeks ago. States that he is on psych medications that include duloxetine and Aripiprazole. Last time his medications were changed was about 2 months ago. He states he is not really sure if the new medications are better or worse. States that he does have a plan that would be to bang his head against the wall. He does not complain of any other symptoms except for SOB, which is normal for him. He is a 1/2ppd smoker, no alcohol or drugs. (SETH ROCKWELL MED STUDENT) Timing/Duration: this afternoon Associated Symptoms: suicidal ideation (STAN CARREON MD) Allergies and Home Medications Allergies Coded Allergies: No Known Drug Allergies (Unverified , 03/26/21) Patient Home Medication List Home Medication List Reviewed: Yes (STAN CARREON MD) Acetaminophen (Tylenol Extra Strength) 500 Mg Tablet, 1,000 MG PO Q4H PRN for PAIN-MILD (1-4), (Reported) Entered as Reported by: NEPTALI PUCKETT on 01/15/19 1059 Allopurinol (Allopurinol) 100 Mg Tablet, 100 MG PO DAILY, (Reported) Entered as Reported by: PASCUAL OLMOS on 10/03/17 1729 Aripiprazole (Aripiprazole) 30 Mg Tablet, 30 MG PO DAILY, (Reported) Entered as Reported by: NEPTALI PUCKETT on 01/15/19 105 Atorvastatin Calcium (Atorvastatin Calcium) 40 Mg Tablet, 40 MG PO HS, (Reported) Entered as Reported by: NEPTALI PUCKETT on 01/15/19 105 Baclofen (Baclofen) 20 Mg Tablet, 20 MG PO BID PRN for MUSCLE SPASMS, (Reported) Entered as Reported by: SUMANTH PACE on 10/22/20 0249 Duloxetine HCl (Duloxetine HCl) 30 Mg Capsule.dr, 30 MG PO DAILY, (Reported) Entered as Reported by: KERI BULLOCK on 05/09/20 1004 Duloxetine HCl (Duloxetine HCl) 60 Mg Capsule.dr, 60 MG PO DAILY, (Reported) Entered as Reported by: KERI BULLOCK on 05/09/20 1004 Famotidine (Famotidine) 20 Mg Tablet, 20 MG PO DAILY, (Reported) Entered as Reported by: NEPTALI PUCKETT on 01/15/19 1059 Fenofibrate Nanocrystallized (Fenofibrate) 145 Mg Tablet, 145 MG PO HS, (Reported) Entered as Reported by: NEPTALI PUCKETT on 01/15/19 105 Gabapentin (Gabapentin) 600 Mg Tablet, 600 MG PO TID, (Reported) Entered as Reported by: KERI BULLOCK on 05/09/20 1008 Ketorolac Tromethamine (Ketorolac Tromethamine) 10 Mg Tablet, 10 MG PO Q6H Prescribed by: VIJAY GROVES on 03/27/21 0853 Lisinopril (Lisinopril) 10 Mg Tablet, 10 MG PO DAILY, (Reported) Entered as Reported by: KERI BULLOCK on 05/09/20 1004 Mesalamine (Mesalamine) 1.2 Gm Tablet.dr, 4.8 GM PO DAILY, (Reported) Entered as Reported by: JUNE ALANIZ on 07/04/17 1110 Metoprolol Tartrate (Metoprolol Tartrate) 25 Mg Tablet, 25 MG PO BID, (Reported) Entered as Reported by: KERI BULLOCK on 05/09/20 1004 Multivitamin (Multi-Vitamin Daily) 1 Each Tablet, 1 TAB PO DAILY, (Reported) Entered as Reported by: JUNE ALANIZ on 07/04/17 1112 Nifedipine (Nifedipine ER) 60 Mg Tablet.er, 60 MG PO DAILY, (Reported) Entered as Reported by: KERI BULLOCK on 05/09/20 1004 Nitrofurantoin Monohyd/M-Cryst (Macrobid 100 mg Capsule) 100 Mg Capsule, 1 TAB PO BID WITH MEALS Prescribed by: VIJAY GROVES on 03/27/21 0853 [place]-3 Acid Ethyl Esters ([place]-3 Acid Ethyl Esters) 1 Gm Capsule, 2 GM PO BID, (Reported) Entered as Reported by: NEPTALI PUCKETT on 01/15/19 1059 Omeprazole (Omeprazole) 40 Mg Capsule.dr, 40 MG PO DAILY, (Reported) Entered as Reported by: KERI BULLOCK on 05/09/20 1004 Potassium Chloride (Klor-Con M20) 20 Meq Tab.er.prt, 40 MEQ PO BID, (Reported) Entered as Reported by: KERI BULLOCK on 05/09/20 1004 Ropinirole HCl (Ropinirole HCl) 5 Mg Tablet, 5 MG PO TID, (Reported) Entered as Reported by: SHANNAN DIAZ on 05/22/18 0604 Sodium Bicarbonate (Sodium Bicarbonate) 650 Mg Tablet, 650 MG PO BID, (Reported) Entered as Reported by: KERI BULLOCK on 05/09/20 1012 Tamsulosin HCl (Flomax) 0.4 Mg Cap, 0.4 MG PO DAILY Prescribed by: VIJAY GROVES on 03/27/21 0853 Review of Systems Constitutional: No chills, No fever EENTM: No hearing loss, No vision loss Respiratory: No cough; short of breath (Chronic); No wheezing Cardiovascular: No chest pain, No edema, No palpitations Gastrointestinal: No abdominal pain, No constipation, No diarrhea, No melena, No nausea, No vomiting Genitourinary: No dysuria, No hematuria Musculoskeletal: No joint pain, No joint swelling Skin: No lesions, No rash Psychiatric/Neurological: Anxiety, Depressed; Denies Headache, Denies Numbness; Other (suicidal) (SETH ROCKWELL MED STUDENT) Constitutional: No chills, No fever EENTM: No nose congestion, No throat pain Gastrointestinal: No abdominal pain, No nausea, No vomiting Psychiatric/Neurological: Anxiety, Depressed (STAN CARREON MD) All Other Systems Reviewed Negative Unless Noted: Yes (STAN CARREON MD) Past Tiaemll-Opvjfa-Cgmbwd Hx Patient Social History Tobacco Use?: Yes Smoking Status: Current Everyday Smoker Substance use?: No Alcohol Use?: No Pt feels they are or have been: No (SETH ROCKWELL [employer] STUDENT) Immunizations Up To Date Tetanus Booster (TDap): Less than 5yrs PED Vaccines UTD: No First/Initial COVID19 Vaccinat: JUNE 01, 2020 Second COVID19 Vaccination Ronald: JUNE 15, 2020 Third COVID19 Vaccination Date: JUNE 01, 2020 COVID19 Vaccine 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: [employer] (SETH ROCKWELL [employer] STUDENT) Seasonal Allergies Seasonal Allergies: No (SETH ROCKWELL [employer] STUDENT) Past Medical History Surgery/Hospitalization HX: LEFT URETERAL STENTBACK SURGERY 2003 PMH: AKF, ENTERCOLITIS, SEPSIS, DEPRESSION, SLEEP APNEA, UTI, HTN, PULMONARY HTN, COPD, DM, UTI, GERD, BPH, Surgeries: Yes Gallbladder, Orthopedic, Renal Respiratory: Yes COPD Currently Using CPAP: Yes Currently Using BIPAP: No Cardiac: Yes High Cholesterol, Hypertension Neurological: Yes Neuropathy Reproductive Disorders: No Sexually Transmitted Disease: No HIV/AIDS: No Genitourinary: Yes (RENAL STENTS) Kidney Infection, Prostate Problems, Kidney Stones, Renal Failure Gastrointestinal: Yes (S/P EVELIO) Colitis, Gastroesophageal Reflux, Gall Bladder Disease Musculoskeletal: Yes (BACK SX 2003;RESTLESS LEG SYNDROME) Arthritis, Chronic Back Pain, Gout Endocrine: Yes (MORBID OBESITY, DM DIET CONTROLLED PER RN DEBBIE) Diabetes, Non-Insulin dep HEENT: Yes Cancer: No Psychosocial: Yes (BIPOLAR, POLYSUBSTANCE ABUSE) Anxiety, Bipolar, Depression Integumentary: No Blood Disorders: No Adverse Reaction/Blood Tranf: No (SETH ROCKWELL [employer] STUDENT) Family Medical History Reviewed Nursing Family Hx (STAN CARREON MD) Completed stroke DVT 19 MOTHER, , Onset:Unknown Diabetes mellitus 19 MOTHER, , Onset:Unknown G8 BROTHER, Onset:Unknown FH: gastric ulcer 19 FATHER, Onset:Unknown DVT/PE, Diabetes, GI Disease (SETH ROCKWELL [employer] STUDENT) Physical Exam Vital Signs - First Documented 05/13/21 18:15 Temp 36.0 Pulse 118 Resp 16 B/P (MAP) 128/81 (97) Pulse Ox 95 (STAN CARREON MD) Capillary Refill : Less Than 3 Seconds (SETH ROCKWELL MED STUDENT) Height, Weight, BMI Height: 5'10.00" Weight: 330lbs. 3.0oz. [id number]; 46.00 BMI Method:Stated General Appearance: no apparent distress, obese, other (depressed affect) HEENT: PERRL/EOMI, pharynx normal Respiratory: chest non-tender, lungs clear, normal breath sounds Cardiovascular: regular rate, rhythm, no edema, no murmur Peripheral Pulses: 2+ Radial Pulses (R), 2+ Radial Pulses (L) Gastrointestinal: normal bowel sounds, soft, other (had some mild suprapubic tenderness) Extremities: no pedal edema, no calf tenderness Neurologic/Psychiatric: alert, oriented x 3, depressed affect Behavior/Eye Contact: cooperative, good eye contact, normal speech Thoughts/Hallucinations: normal thought pattern, no apparent hallucination Skin: normal color, warm/dry (SETH ROCKWELL MED STUDENT) General Appearance: WD/WN, no apparent distress, obese HEENT: PERRL/EOMI, pharynx normal Neck: full range of motion, supple Respiratory: lungs clear, normal breath sounds Cardiovascular: regular rate, rhythm, no murmur Gastrointestinal: soft, other (had some mild suprapubic tenderness) Neurologic/Psychiatric: alert, oriented x 3 Behavior/Eye Contact: cooperative, good eye contact, normal speech Thoughts/Hallucinations: normal thought pattern, no apparent hallucination Skin: normal color, warm/dry (STAN CARREON MD) Progress/Results/Core Measures Results/Orders Lab Results Laboratory Tests Test 05/13/21 18:26 05/13/21 19:07 Range/Units White Blood Count 8.4 4.3-11.0 10^3/uL Red Blood Count 4.78 4.30-5.52 10^6/uL Hemoglobin 14.3 13.3-17.7 g/dL Hematocrit 44 40-54 % Mean Corpuscular Volume 91 80-99 fL Mean Corpuscular Hemoglobin 30 25-34 pg Mean Corpuscular Hemoglobin Concent 33 32-36 g/dL Red Cell Distribution Width 14.9 H 10.0-14.5 % Platelet Count 235 130-400 10^3/uL Mean Platelet Volume 10.2 9.0-12.2 fL Immature Granulocyte % (Auto) 2 % Neutrophils (%) (Auto) 53 42-75 % Lymphocytes (%) (Auto) 32 12-44 % Monocytes (%) (Auto) 8 0-12 % Eosinophils (%) (Auto) 4 0-10 % Basophils (%) (Auto) 1 0-10 % Neutrophils # (Auto) 4.5 1.8-7.8 10^3/uL Lymphocytes # (Auto) 2.7 1.0-4.0 10^3/uL Monocytes # (Auto) 0.7 0.0-1.0 10^3/uL Eosinophils # (Auto) 0.3 0.0-0.3 10^3/uL Basophils # (Auto) 0.1 0.0-0.1 10^3/uL Immature Granulocyte # (Auto) 0.2 H 0.0-0.1 10^3/uL Sodium Level 135 135-145 MMOL/L Potassium Level 4.1 3.6-5.0 MMOL/L Chloride Level 104 98-107 MMOL/L Carbon Dioxide Level 19 L 21-32 MMOL/L Anion Gap 12 5-14 MMOL/L Blood Urea Nitrogen 14 7-18 MG/DL Creatinine 1.22 0.60-1.30 MG/DL Estimat Glomerular Filtration Rate 72 BUN/Creatinine Ratio 11 Glucose Level 153 H 70-105 MG/DL Calcium Level 9.4 8.5-10.1 MG/DL Corrected Calcium 9.5 8.5-10.1 MG/DL Total Bilirubin 0.4 0.1-1.0 MG/DL Aspartate Amino Transf (AST/SGOT) 31 5-34 U/L Alanine Aminotransferase (ALT/SGPT) 34 0-55 U/L Alkaline Phosphatase 85 40-136 U/L Total Protein 6.8 6.4-8.2 GM/DL Albumin 3.9 3.2-4.5 GM/DL Salicylates Level < 5.0 L 5.0-20.0 MG/DL Acetaminophen Level < 10 L 10-30 UG/ML Serum Alcohol < 10 <10 MG/DL Urine Color YELLOW Urine Clarity CLEAR Urine pH 6.0 5-9 Urine Specific [place] 1.020 1.016-1.022 Urine Protein 1+ H NEGATIVE Urine Glucose (UA) NEGATIVE NEGATIVE Urine Ketones NEGATIVE NEGATIVE Urine Nitrite POSITIVE H NEGATIVE Urine Bilirubin NEGATIVE NEGATIVE Urine Urobilinogen 0.2 < = 1.0 MG/DL Urine Leukocyte Esterase 1+ H NEGATIVE Urine RBC (Auto) 3+ H NEGATIVE Urine RBC 10-25 H /HPF Urine WBC 10-25 H /HPF Urine Squamous Epithelial Cells NONE /HPF Urine Renal Epithelial Cells NONE /HPF Urine Crystals NONE /LPF Urine Bacteria FEW H /HPF Urine Casts NONE /LPF Urine Mucus NEGATIVE /LPF Urine Culture Indicated YES Urine Opiates Screen NEGATIVE NEGATIVE Urine Oxycodone Screen NEGATIVE NEGATIVE Urine Methadone Screen NEGATIVE NEGATIVE Urine Propoxyphene Screen NEGATIVE NEGATIVE Urine Barbiturates Screen NEGATIVE NEGATIVE Ur Tricyclic Antidepressants Screen NEGATIVE NEGATIVE Urine Phencyclidine Screen NEGATIVE NEGATIVE Urine Amphetamines Screen NEGATIVE NEGATIVE Urine Methamphetamines Screen NEGATIVE NEGATIVE Urine Benzodiazepines Screen NEGATIVE NEGATIVE Urine Cocaine Screen NEGATIVE NEGATIVE Urine Cannabinoids Screen NEGATIVE NEGATIVE (STAN CARREON MD) My Orders Orders - STAN CARREON MD Ua Culture If Indicated (05/13/21 18:33) Cbc With Automated Diff (05/13/21 18:33) Comprehensive Metabolic Panel (05/13/21 18:33) Alcohol (05/13/21 18:33) Drug Screen Stat (Urine) (05/13/21 18:33) Acetaminophen (05/13/21 18:33) Salicylate (05/13/21 18:33) Ekg Tracing (05/13/21 18:33) Covid 19 Inhouse Test (05/13/21 18:33) Urine Culture (05/13/21 19:07) Nitrofurantoin Capsule,Macro (Macrobid C (05/13/21 20:00) (STAN CARREON MD) Vital Signs/I&O 05/13/21 18:15 Temp 36.0 Pulse 118 Resp 16 B/P (MAP) 128/81 (97) Pulse Ox 95 (STAN CARREON MD) Blood Pressure Mean: 97 Progress Progress Note : Time: 18:40 Progress Note Saw and examined patient. Pt has a history of depression and is on treatment. States he takes his medications since they are distributed by custodial which helps him not to miss doses. He does state he has a plan that includes hitting his head against the wall. Will get some basic labs, ECG, alcohol, drug screen, and salicylates. He is not old enough for admission to [facility] psych unit. Will get medical clearance and work to get him seen or placed w/ psych facility. 1923: CBC and CMP resulted, no notable findings. Urine is positive for bacteria, nitrites, and leukocyte esterase, Likely has a bit of a UTI. Drug screening is negative. (SETH ROCKWELL MED STUDENT) Progress Note : Progress Note I have seen and evaluated the patient and agree with above except as indicated. Directed the plan of care. Patient is here with thoughts of suicide with plan it may be beating his head against the wall but states that actually a little better now. Does have history of suicidal ideation and depression and follows with [facility]. No recent med changes. Does have safe place at [facility] and rehab. Denies homicidal ideations or significant active suicidal thoughts currently. Evaluation as above. Plan we will do medical clearance. Monitor patient. 1954: UTI noted. Patient has resistant typical bacteria looking at his history. Nitrofurantoin works most of the time. We will initiate that and follow cultures. I did talk with him again and he feels comfortable going back to nursing care facility and calling [facility] tomorrow. Denies active suicidal thoughts currently and states he does not believe he will harm himself there and feels safe. group home can enact safety plan as well. Discharged back to nursing facility. Patient verbalized understanding instructions and agreement with plan. (STAN CARREON MD) Departure Impression Primary Impression: UTI (urinary tract infection) Qualified Codes: N30.00 - Acute cystitis without hematuria Additional Impression: Depression Qualified Codes: F32.A - Depression, unspecified Disposition: 01 HOME, SELF-CARE Condition: Stable Departure-Patient Inst. Decision time for Depature: 19:54 (STAN CARREON MD) Referrals: ESTELLE GAR MD (PCP/Family) Primary Care Physician Patient Instructions: Urinary Tract Infection, Adult (DC), Depression, Adult ED Add. Discharge Instructions: All discharge instructions reviewed with patient and/or family. Voiced understanding. Take medications as directed. Follow-up with your doctor for recheck and further evaluation as needed. You should call [facility] tomorrow morning for appointment due to depression suicidal thoughts. Return for worse pain, worsening depression, fever, weakness or other concerns as needed. Scripts Nitrofurantoin Macrocrystal (Nitrofurantoin) 100 Mg Capsule 100 MG PO BID, #13 CAP 0 Refills Prov: STAN CARREON MD 05/13/21 SETH ROCKWELL MED STUDENT May 13, 2021 18:40 STAN CARREON MD May 13, 2021 20:00
[2021-05-13 18:43] LABS: ALBUMIN 3.9 GM/DL (3.2-4.5); CHLORIDE 104 MMOL/L (98-107); POTASSIUM 4.1 MMOL/L (3.6-5.0); SODIUM 135 MMOL/L (135-145)
[2021-05-13 18:44] LABS: CALCIUM 9.4 MG/DL (8.5-10.1)
[2021-05-13 18:46] LABS: GLUCOSE 153 MG/DL (70-105); TOTAL PROTEIN 6.8 GM/DL (6.4-8.2)
[2021-05-13 18:47] LABS: BILIRUBIN,TOTAL 0.4 MG/DL (0.1-1.0); CARBON DIOXIDE 19 MMOL/L (21-32)
[2021-05-13 18:49] LABS: ALKALINE PHOSPHATASE 85 U/L (40-136); CREATININE SERUM 1.22 MG/DL (0.60-1.30); GFR ESTIMATED 72
[2021-05-13 18:51] LABS: ACETAMINOPHEN < 10 UG/ML (10-30); BUN/CREATININE RATIO 11
[2021-05-13 18:52] LABS: ALANINE AMINOTRANSFERASE 34 U/L (0-55); SALICYLATE < 5.0 MG/DL (5.0-20.0)
[2021-05-13 19:15] LABS: BILIRUBIN,URINE NEGATIVE (NEGATIVE); CLARITY,URINE CLEAR; COLOR,URINE YELLOW; GLUCOSE, URINE (UA) NEGATIVE (NEGATIVE); KETONES,URINE NEGATIVE (NEGATIVE); LEUKOCYTE ESTERASE ,URINE 1+ (NEGATIVE); NITRITE,URINE POSITIVE (NEGATIVE); PROTEIN,URINE 1+ (NEGATIVE)
[2021-05-13 19:22] LABS: BACTERIA,URINE FEW /HPF
[2021-05-13 19:26] LABS: AMPHETAMINE SCREEN, URINE NEGATIVE (NEGATIVE); BARBITURATE SCREEN URINE NEGATIVE (NEGATIVE); BENZODIAZEPINES SCREEN URINE NEGATIVE (NEGATIVE); CANNABINOID SCREEN, URINE NEGATIVE (NEGATIVE); COCAINE SCREEN URINE NEGATIVE (NEGATIVE); METHADONE STAT NEGATIVE (NEGATIVE); METHAMPHETAMINE SCREEN URINE S NEGATIVE (NEGATIVE); OPIATE SCREEN URINE NEGATIVE (NEGATIVE); OXYCODONE STAT NEGATIVE (NEGATIVE); PROPOXYPHENE STAT NEGATIVE (NEGATIVE); TRICYCLIC ANTIDEPRESSANTS SCRE NEGATIVE (NEGATIVE)
[2021-05-13] MEDS ORDERED: NITR100C PO (19:56)
[2021-05-13] MEDS ORDERED: NITROFURANTOIN 100 MG (MACROBID) CAPSULE PO ONE (20:00)
[2021-05-13 20:12] VITALS: BP 130/77
== END 2021-05-13 20:13 | disposition home or self-care (01) ==
LOC: EDUNIT# 18:01 → ER 18:03
DX: N39.0 Urinary tract infection, site not specified (principal); F32.9 Major depressive disorder, single episode, unspecified; F17.210 Nicotine dependence, cigarettes, uncomplicated
CPT/HCPCS: 36415; 80053; 80306; 80320; 80329; 81000; 85025; 87088; 93005

== ENCOUNTER → 2021-06-01 | Outpatient (CLI) | payer MEDICAID ==
--- NOTE | 2021-06-01 10:00 | Diagnostic Imaging Report ---
Indication: Follow-up kidney stones. Time of Exam: 9:47 AM Comparison is made with prior radiograph from 04/30/2021. The left-sided double-J nephroureteral stent has been removed. There is a calcific density projected over the mid to upper right renal shadow approximately 5 mm in size. There is a calcific density overlying the lower pole of the left kidney, 3 to 4 mm in size. This is similar to prior study. No definite calculi along the expected course of the ureters is identified. There is a more medially located calculus in the left para-midline pelvis in a similar location to a prior radiograph. Right hemipelvic calcifications are also stable. There are severe degenerative changes involving the left hip with complete loss of the superior joint space. IMPRESSION: 1. Bilateral renal calculi, stable. No definite calculi along the expected course of ureters is seen. The left-sided stent has been removed. Dictated by: Dictated on workstation # [id number]
== END ==
LOC: LAB 09:29
PROVIDERS: ATTEND Urology
DX: N20.0 Calculus of kidney (principal)
CPT/HCPCS: 74018

== ENCOUNTER 2022-01-05 20:59 | Inpatient (IN) | payer MEDICAID ==
[~2022-01-05] VITALS: Ht 177.8 cm; Wt 173.0 kg
[~2022-01-05 20:59] MED LIST changes: +ALBU8.5H6 IH; +BUPR-104 PO; -BUPR100T8 PO; +LEVO-55 PO; -LEVO500T81 PO; -RT-ALBUINH IH
[2022-01-05] MEDS ORDERED: NITROGLYCERIN 2% OINT 1 GM UNIT DOSE PACKET TOP STA (21:22)
[2022-01-05 21:28] LABS: BASOPHILS # (AUTO) 0.1 10^3/uL (0.0-0.1); BASOPHILS % (AUTO) 1 % (0-10); EOSINOPHILS # (AUTO) 0.3 10^3/uL (0.0-0.3); EOSINOPHILS % (AUTO) 4 % (0-10); HEMATOCRIT 49 % (40-54); HEMOGLOBIN 16.1 g/dL (13.3-17.7); LYMPHOCYTES # (AUTO) 2.3 10^3/uL (1.0-4.0); LYMPHOCYTES % (AUTO) 27 % (12-44); MEAN CORPUSCULAR HEMOGLOBIN 29 pg (25-34); MEAN CORPUSCULAR HGB CONC 33 g/dL (32-36); MEAN CORPUSCULAR VOLUME 89 fL (80-99); MEAN PLATELET VOLUME 10.7 fL (9.0-12.2); MONOCYTES # (AUTO) 0.7 10^3/uL (0.0-1.0); MONOCYTES % (AUTO) 8 % (0-12); NEUTROPHILS # (AUTO) 5.2 10^3/uL (1.8-7.8); NEUTROPHILS % (AUTO) 60 % (42-75); PLATELET COUNT 218 10^3/uL (130-400); WHITE BLOOD COUNT 8.6 10^3/uL (4.3-11.0)
[2022-01-05] MEDS ORDERED: ENOXAPARIN 100 MG/1 ML (LOVENOX) SYR SC ONE (21:30)
[2022-01-05] MEDS ORDERED: ASPIRIN 81 MG CHEW (CHILDREN'S ASA) PO ONE (21:30)
[2022-01-05] MEDS ORDERED: ENOXAPARIN 80 MG/0.8 ML (LOVENOX) SYR SC ONE (21:30)
[2022-01-05 21:42] LABS: FIBRIN DEGRADATION PRODUCTS 0.31 UG/ML (0.00-0.49); INR 0.9 (0.8-1.4); PROTHROMBIN TIME PATIENT 12.6 SEC (12.2-14.7)
[2022-01-05 21:45] LABS: ALBUMIN 3.9 GM/DL (3.2-4.5); CHLORIDE 101 MMOL/L (98-107); POTASSIUM 4.3 MMOL/L (3.6-5.0); SODIUM 136 MMOL/L (135-145)
[2022-01-05 21:46] LABS: CALCIUM 9.5 MG/DL (8.5-10.1)
[2022-01-05 21:47] LABS: GLUCOSE 162 MG/DL (70-105); TOTAL PROTEIN 6.8 GM/DL (6.4-8.2)
[2022-01-05 21:48] LABS: CARBON DIOXIDE 22 MMOL/L (21-32); ERYTHROCYTE SEDIMENTATION RATE 4 MM/HR (0-30)
--- NOTE | 2022-01-05 21:48 | Diagnostic Imaging Report ---
INDICATION: Dyspnea. EXAMINATION: AP view of the chest was obtained. COMPARISON: Study of 03/13/2021. FINDINGS: Overall heart size and pulmonary vascularity are within normal limits. There is no pneumothorax or consolidation. No significant pleural fluid is seen. IMPRESSION: Stable chest without acute abnormality detected. Dictated by: Dictated on workstation # [id number]
[2022-01-05 21:49] LABS: BILIRUBIN,TOTAL 0.4 MG/DL (0.1-1.0)
[2022-01-05 21:51] LABS: ALKALINE PHOSPHATASE 73 U/L (40-136); CREATININE SERUM 1.25 MG/DL (0.60-1.30); GFR ESTIMATED 69
[2022-01-05 21:52] LABS: BUN/CREATININE RATIO 7
[2022-01-05 21:54] LABS: ALANINE AMINOTRANSFERASE 34 U/L (0-55); CREATINE KINASE 158 U/L (30-200); MAGNESIUM 1.9 MG/DL (1.6-2.4)
[2022-01-05] MEDS: dilTIAZem DRIP PRE-MIX 125 ML IV SCH (21:58)
[2022-01-05 22:00] LABS: BILIRUBIN,URINE NEGATIVE (NEGATIVE); CLARITY,URINE CLEAR; COLOR,URINE YELLOW; GLUCOSE, URINE (UA) NEGATIVE (NEGATIVE); KETONES,URINE NEGATIVE (NEGATIVE); LEUKOCYTE ESTERASE ,URINE TRACE (NEGATIVE); NITRITE,URINE POSITIVE (NEGATIVE); PH,URINE 6.5 (5-9); PROTEIN,URINE 2+ (NEGATIVE)
--- NOTE | 2022-01-05 22:03 | ED Cardiac General ---
History of Present Illness General Chief Complaint: Respiratory Problems Stated Complaint: SOA Nursing Triage Note: [facility] PT C/O SOB AND RIGHT SIDED CHEST PAIN THAT STARTED AROUND 2029. PT IS IN ROOM 07. Source: patient History of Present Illness Date Seen by Provider: Jan 05, 2022 Time Seen by Provider: 21:05 Initial Comments PT ARRIVES VIA EMS FROM HOME PT STATES THAT 1/2 HOUR PRIOR TO ARRIVAL, AT 2030 TONIGHT, HE WAS SITTING AND EATING WHEN HE SUDDENLY BEGAN FEELING SHORT OF BREATH AND HAVING CHEST PAIN PAIN IS IN CENTER OF CHEST AND IS A BURNING SENSATION PAIN DOES NOT RADIATE RATES PAIN 5/10 AT THIS TIME. NOTHING WORSENS OR IMPROVES SYMPTOMS STATES HE GOT VERY SWEATY WHEN SYMPTOMS BEGAN NO NAUSEA/VOMITING NO FEVER + COUGH NO PALPITATIONS NO DIZZINESS OR SYNCOPE NO ABDOMINAL PAIN OR BACK PAIN NO SWELLING IN LEGS OR PAIN IN CALVES. NO HISTORY OF SIMILAR PT HAS NOT TAKEN HIS MEDICATIONS TODAY STATES HE HAS HAD "A LITTLE BIT" OF ALCOHOL TODAY, BUT DOES NOT ELABORATE ON HOW MUCH OR WHAT HE DRANK HE DENIES USING ANY DRUGS TODAY, BUT HAS HISTORY OF POLYSUBSTANCE ABUSE PT IS DIABETIC, NEVER CHECKS HIS BLOOD SUGAR OR FOLLOWS ANY DIET BLOOD GLUCOSE 164 ON ARRIVAL. PT DENIES ANY HISTORY OF HEART PROBLEMS OR IRREGULAR HEART BEATH HE DENIES ANY HISTORY OF ASTHMA OR COPD, AND DOES NOT HAVE AN INHALER OR NEBULIZER OR HOME O2. ( ON REVIEW OF OLD RECORDS, IS LISTED THAT HE HAS COPD) PT CONTINUES TO SMOKE. PT HAS A LONG HISTORY OF NON-COMPLIANCE IN ALL ASPECTS OF CARE HAS HAD COVID-19 VACCINE X 2--> 1 YEAR AGO PCP: DR. CASPER, [facility] Allergies and Home Medications Allergies Coded Allergies: No Known Drug Allergies (Unverified , 03/26/21) Patient Home Medication List Home Medication List Reviewed: Yes Acetaminophen (Tylenol Extra Strength) 500 Mg Tablet, 1,000 MG PO Q4H PRN for PAIN-MILD (1-4), (Reported) Entered as Reported by: NEPTALI PUCKETT on 01/15/19 1059 Allopurinol (Allopurinol) 100 Mg Tablet, 100 MG PO DAILY, (Reported) Entered as Reported by: PASCUAL OLMOS on 10/03/17 1729 Aripiprazole (Aripiprazole) 30 Mg Tablet, 30 MG PO DAILY, (Reported) Entered as Reported by: NEPTALI PUCKETT on 01/15/19 1059 Atorvastatin Calcium (Atorvastatin Calcium) 40 Mg Tablet, 40 MG PO HS, (Reported) Entered as Reported by: NEPTALI PUCKETT on 01/15/19 1059 Baclofen (Baclofen) 20 Mg Tablet, 20 MG PO BID PRN for MUSCLE SPASMS, (Reported) Entered as Reported by: SUMANTH PACE on 10/22/20 0249 Duloxetine HCl (Duloxetine HCl) 30 Mg Capsule.dr, 30 MG PO DAILY, (Reported) Entered as Reported by: KERI BULLOCK on 05/09/20 1004 Duloxetine HCl (Duloxetine HCl) 60 Mg Capsule.dr, 60 MG PO DAILY, (Reported) Entered as Reported by: KERI BULLOCK on 05/09/20 100 Famotidine (Famotidine) 20 Mg Tablet, 20 MG PO DAILY, (Reported) Entered as Reported by: NEPTALI PUCKETT on 01/15/19 1059 Fenofibrate Nanocrystallized (Fenofibrate) 145 Mg Tablet, 145 MG PO HS, (Reported) Entered as Reported by: NEPTALI PUCKETT on 01/15/19 1059 Gabapentin (Gabapentin) 600 Mg Tablet, 600 MG PO TID, (Reported) Entered as Reported by: KERI BULLOCK on 05/09/20 1008 Ketorolac Tromethamine (Ketorolac Tromethamine) 10 Mg Tablet, 10 MG PO Q6H Prescribed by: VIJAY GROVES on 03/27/21 0853 Lisinopril (Lisinopril) 10 Mg Tablet, 10 MG PO DAILY, (Reported) Entered as Reported by: KERI BULLOCK on 05/09/20 1004 Mesalamine (Mesalamine) 1.2 Gm Tablet.dr, 4.8 GM PO DAILY, (Reported) Entered as Reported by: JUNE ALANIZ on 07/04/17 1110 Metoprolol Tartrate (Metoprolol Tartrate) 25 Mg Tablet, 25 MG PO BID, (Reported) Entered as Reported by: KERI BULLOCK on 05/09/20 1004 Multivitamin (Multi-Vitamin Daily) 1 Each Tablet, 1 TAB PO DAILY, (Reported) Entered as Reported by: JUNE ALANIZ on 5/4/18 1112 Nifedipine (Nifedipine ER) 60 Mg Tablet.er, 60 MG PO DAILY, (Reported) Entered as Reported by: KERI BULLOCK on 05/09/20 1004 Nitrofurantoin Macrocrystal (Nitrofurantoin) 100 Mg Capsule, 100 MG PO BID Prescribed by: STAN CARREON on 05/13/211955 Nitrofurantoin Monohyd/M-Cryst (Macrobid 100 mg Capsule) 100 Mg Capsule, 1 TAB PO BID WITH MEALS Prescribed by: VIJAY GROVES on 03/27/21 0853 Parrish-3 Acid Ethyl Esters (Parrish-3 Acid Ethyl Esters) 1 Gm Capsule, 2 GM PO BID, (Reported) Entered as Reported by: NEPTALI PUCKETT on 01/15/19 1059 Omeprazole (Omeprazole) 40 Mg Capsule.dr, 40 MG PO DAILY, (Reported) Entered as Reported by: KERI BULLOCK on 05/09/20 1004 Potassium Chloride (Klor-Con M20) 20 Meq Tab.er.prt, 40 MEQ PO BID, (Reported) Entered as Reported by: KERI BULLOCK on 05/09/20 1004 Ropinirole HCl (Ropinirole HCl) 5 Mg Tablet, 5 MG PO TID, (Reported) Entered as Reported by: SHANNAN DIAZ on 05/22/18 0604 Sodium Bicarbonate (Sodium Bicarbonate) 650 Mg Tablet, 650 MG PO BID, (Reported) Entered as Reported by: KERI BULLOCK on 05/09/20 1012 Tamsulosin HCl (Flomax) 0.4 Mg Cap, 0.4 MG PO DAILY Prescribed by: VIJAY GROVES on 03/27/21 0853 Review of Systems Review of Systems Constitutional: see HPI, diaphoresis; No dizziness, No fever EENTM: No Symptoms Reported Respiratory: See HPI, Cough, Orthopnea, Shortness of Air, SOA With Exertion, SOA at Rest, Wheezing Cardiovascular: See HPI, Chest Pain; Denies Edema, Denies Lightheadedness, Denies Palpitations, Denies Syncope Gastrointestinal: No Symptoms Reported; Denies Abdominal Pain, Denies Diarrhea, Denies Nausea, Denies Vomiting Genitourinary: No Symptoms Reported Musculoskeletal: no symptoms reported; No back pain Skin: no symptoms reported; No rash Psychiatric/Neurological: No Symptoms Reported; Denies Headache, Denies Numbness, Denies Paresthesia, Denies Seizure, Denies Tremors, Denies Weakness Endocrine: No Symptoms Reported Hematologic/Lymphatic: No Symptoms Reported Past Cfalent-Rphyux-Roctlg Hx Patient Social History Tobacco Use?: Yes Tobacco type used: Cigarettes Smoking Status: Current Everyday Smoker Use of E-Cig and/or Vaping dev: No Substance use?: Yes Alcohol Use?: Yes Alcohol type: Hard Liquor Alcohol Frequency: Daily Pt feels they are or have been: No Immunizations Up To Date Tetanus Booster (TDap): Less than 5yrs PED Vaccines UTD: No First/Initial COVID19 Vaccinat: JUNE 01, 2020 Second COVID19 Vaccination Ronald: JUNE 15, 2020 Third COVID19 Vaccination Date: JUNE 01, 2020 Seasonal Allergies Seasonal Allergies: No Past Medical History Surgery/Hospitalization HX: LEFT URETERAL STENTBACK SURGERY 2003 PMH: AKF, ENTERCOLITIS, SEPSIS, DEPRESSION, SLEEP APNEA, UTI, HTN, PULMONARY HTN, COPD, DM, UTI, GERD, BPH, Surgeries: Yes Gallbladder, Orthopedic, Renal Respiratory: Yes COPD Currently Using CPAP: Yes Currently Using BIPAP: No Cardiac: Yes (PULMONARY HTN) High Cholesterol, Hypertension Neurological: Yes Neuropathy Reproductive Disorders: No Sexually Transmitted Disease: No HIV/AIDS: No Genitourinary: Yes (URETERAL STENTS) Kidney Infection, Prostate Problems, Kidney Stones, Renal Failure Gastrointestinal: Yes (S/P EVELIO) Colitis, Gastroesophageal Reflux, Gall Bladder Disease Musculoskeletal: Yes (BACK SX 2003;RESTLESS LEG SYNDROME) Degenerate Disk Disease, Arthritis, Chronic Back Pain, Gout Endocrine: Yes (MORBID OBESITY; ORAL MEDICATION FOR DIABETES) Diabetes, Non-Insulin dep HEENT: Yes Cancer: No Psychosocial: Yes (BIPOLAR, POLYSUBSTANCE ABUSE) Anxiety, Bipolar, Depression Integumentary: No Blood Disorders: No Adverse Reaction/Blood Tranf: No Family Medical History Completed stroke DVT 19 MOTHER, , Onset:Unknown Diabetes mellitus 19 MOTHER, , Onset:Unknown G8 BROTHER, Onset:Unknown FH: gastric ulcer 19 FATHER, Onset:Unknown DVT/PE, Diabetes, GI Disease SOCIAL HISTORY: -SMOKES AT LEAST 1 PPD -ETOH--HARD LIQUOR SEVERAL TIMES A WEEK -DRUGS--EXTENSIVE HISTORY OF DRUG USE, INCLUDING "SPEED" , COCAINE, MARIJUANA. HE DENIES IV DRUG USE, BUT HE HAS A TATTOO OF A SYRINGE AND NEEDLE IN HIS RIGHT AC SPACE. PAST SURGICAL HISTORY: -CHOLECYSTECTOMY -BACK SURGERY 2003 -URETERAL STENTS -LITHOTRIPSY 03/27/[address] GONZALES -CARDIAC CATH 05/09/[address] ALMEIDA: CONCLUSIONS: 1. No angiographically significant coronary artery disease. 2. Elevated left ventricular end-diastolic pressure. Physical Exam Vital Signs Vital Signs - First Documented 01/05/22 01/05/22 21:04 21:15 Temp 37.1 Pulse 102 Resp 24 B/P (MAP) 155/105 (122) Pulse Ox 97 O2 Delivery Room Air O2 Flow Rate 2.00 Capillary Refill : Less Than 3 Seconds Height, Weight, BMI Height: 5'10.00" Weight: 330lbs. 3.0oz. 149.681880ld; 47.00 BMI Method:Stated General Appearance: WD/WN, Obese (MORBIDLY OBESE--PT THINKS HE WEIGHS AROUND 360#, BUT HAS NO IDEA WHEN HE LAST WAS WEIGHED OR HOW MUCH HE WEIGHED AT THAT TI ME. ), Other (PT IS FILTHY, VERY UNKEMPT AND VERY MALODOROUS, REEKS OF CIGARETTES. HE IS DYSPNEIC AT REST WITH AUDIBLE WHEEZING. KEEPS EYES CLOSED AT ALL TIMES. SPEECH PATTERN IS MUMBLED. ) HEENT: PERRL/EOMI, Other (POOR DENTITION) Neck: Normal Inspection; No JVD Respiratory: Decreased Breath Sounds (DECREASED AERATION IN ALL LUNG GARCIA), Respiratory Distress (DYSPNEIC, BUT ABLE TO TALK IN FULL SENTENCES), Wheezing Cardiovascular: Irregularly Irregular, Tachycardia Gastrointestinal: Non Tender, Soft, Other (OBESE--UNABLE TO DETERMINE IF ORGANOMEGALY OR MASSES ARE PRESENT. ) Extremity: Normal Capillary Refill, Normal Inspection, Normal Range of Motion, Non Tender, No Calf Tenderness, No Pedal Edema Neurologic/Psychiatric: Alert, Oriented x3, No Motor/Sensory Deficits, front desk lead II- XII Norm as Tested Skin: Normal Color, Warm/Dry, Tattoos/Piercings (EXTENSIVE TATTOOS, INCLUDING TATTOO OF A SYRINGE WITH NEEDLE IN RIGHT AC SPACE) Focused Exam Sepsis Stage: Ruled Out Reason for ruling out sepsis: DOES NOT MEET CRITERIA Possible Source: Pulmonary Lactate Level 01/05/22 21:30: Lactic Acid Level 2.94*H Time of Focused Exam: 22:10 Respiratory: Other (RESPRIRATIONS LESS LABORED AND WHEEZING HAS IMPROVED WITHOUT TREATMENT) Cardiovascular: Irregularly Irregular Capillary Refill: Less Than 3 Seconds Lactic Acid Level Laboratory Tests Test 01/05/22 21:30 Lactic Acid Level 2.94 MMOL/L (0.50-2.00) *H Within 3hrs of presentation: Admin fluids, Admin ABX, Blood cultures prior to ABX's, Focus exam, Lactate level Progress/Results/Core Measures Results/Orders Lab Results Laboratory Tests Test 01/05/22 21:15 01/05/22 21:23 01/05/22 21:30 01/05/22 21:47 Range/Units White Blood Count 8.6 4.3-11.0 10^3/uL Red Blood Count 5.49 4.30-5.52 10^6/uL Hemoglobin 16.1 13.3-17.7 g/dL Hematocrit 49 40-54 % Mean Corpuscular Volume 89 80-99 fL Mean Corpuscular Hemoglobin 29 25-34 pg Mean Corpuscular Hemoglobin Concent 33 32-36 g/dL Red Cell Distribution Width 14.4 10.0-14.5 % Platelet Count 218 130-400 10^3/uL Mean Platelet Volume 10.7 9.0-12.2 fL Immature Granulocyte % (Auto) 1 % Neutrophils (%) (Auto) 60 42-75 % Lymphocytes (%) (Auto) 27 12-44 % Monocytes (%) (Auto) 8 0-12 % Eosinophils (%) (Auto) 4 0-10 % Basophils (%) (Auto) 1 0-10 % Neutrophils # (Auto) 5.2 1.8-7.8 10^3/uL Lymphocytes # (Auto) 2.3 1.0-4.0 10^3/uL Monocytes # (Auto) 0.7 0.0-1.0 10^3/uL Eosinophils # (Auto) 0.3 0.0-0.3 10^3/uL Basophils # (Auto) 0.1 0.0-0.1 10^3/uL Immature Granulocyte # (Auto) 0.1 0.0-0.1 10^3/uL Erythrocyte Sedimentation Rate 4 0-30 MM/HR Prothrombin Time 12.6 12.2-14.7 SEC INR Comment 0.9 0.8-1.4 Activated Partial Thromboplast Time 29 24-35 SEC D-Dimer 0.31 0.00-0.49 UG/ML Sodium Level 136 135-145 MMOL/L Potassium Level 4.3 3.6-5.0 MMOL/L Chloride Level 101 98-107 MMOL/L Carbon Dioxide Level 22 21-32 MMOL/L Anion Gap 13 5-14 MMOL/L Blood Urea Nitrogen 9 7-18 MG/DL Creatinine 1.25 0.60-1.30 MG/DL Estimat Glomerular Filtration Rate 69 BUN/Creatinine Ratio 7 Glucose Level 162 H 70-105 MG/DL Calcium Level 9.5 8.5-10.1 MG/DL Corrected Calcium 9.6 8.5-10.1 MG/DL Magnesium Level 1.9 1.6-2.4 MG/DL Total Bilirubin 0.4 0.1-1.0 MG/DL Aspartate Amino Transf (AST/SGOT) 32 5-34 U/L Alanine Aminotransferase (ALT/SGPT) 34 0-55 U/L Alkaline Phosphatase 73 40-136 U/L Total Creatine Kinase 158 30-200 U/L Creatine Kinase MB 5.0 <6.6 NG/ML Myoglobin 93.2 H 10.0-92.0 NG/ML Troponin I < 0.028 <0.028 NG/ML C-Reactive Protein High Sensitivity 0.34 0.00-0.50 MG/DL B-Type Natriuretic Peptide 25.3 <100.0 PG/ML Total Protein 6.8 6.4-8.2 GM/DL Albumin 3.9 3.2-4.5 GM/DL Amylase Level 38 25-125 U/L Lipase 40 8-78 U/L Beta-Hydroxybutyrate (Chem panel) 0.17 0.00-0.27 MMOL/L Procalcitonin 0.10 H <0.10 NG/ML Serum Alcohol < 10 <10 MG/DL Influenza Type A (RT-PCR) Not Detected Not Detecte Influenza Type B (RT-PCR) Not Detected Not Detecte SARS-CoV-2 RNA (RT-PCR) Not Detected Not Detecte Lactic Acid Level 2.94 *H 0.50-2.00 MMOL/L Urine Color YELLOW Urine Clarity CLEAR Urine pH 6.5 5-9 Urine Specific Myra 1.025 H 1.016-1.022 Urine Protein 2+ H NEGATIVE Urine Glucose (UA) NEGATIVE NEGATIVE Urine Ketones NEGATIVE NEGATIVE Urine Nitrite POSITIVE H NEGATIVE Urine Bilirubin NEGATIVE NEGATIVE Urine Urobilinogen 0.2 < = 1.0 MG/DL Urine Leukocyte Esterase TRACE H NEGATIVE Urine RBC (Auto) TRACE-I H NEGATIVE Urine RBC 0-2 /HPF Urine WBC 5-10 H /HPF Urine Squamous Epithelial Cells 2-5 /HPF Urine Crystals PRESENT H /LPF Urine Amorphous Sediment FEW TARYN URATES H /LPF Urine Bacteria MODERATE H /HPF Urine Casts NONE /LPF Urine Mucus SMALL H /LPF Urine Culture Indicated YES Urine Opiates Screen NEGATIVE NEGATIVE Urine Oxycodone Screen POSITIVE H NEGATIVE Urine Methadone Screen NEGATIVE NEGATIVE Urine Propoxyphene Screen NEGATIVE NEGATIVE Urine Barbiturates Screen NEGATIVE NEGATIVE Ur Tricyclic Antidepressants Screen NEGATIVE NEGATIVE Urine Phencyclidine Screen NEGATIVE NEGATIVE Urine Amphetamines Screen NEGATIVE NEGATIVE Urine Methamphetamines Screen NEGATIVE NEGATIVE Urine Benzodiazepines Screen NEGATIVE NEGATIVE Urine Cocaine Screen NEGATIVE NEGATIVE Urine Cannabinoids Screen NEGATIVE NEGATIVE My Orders Orders - KRISTIAN CONTRERAS DO Ekg Tracing (01/05/22 21:07) Ed Iv/Invasive Line Start (01/05/22 21:11) O2 (01/05/22 21:11) Monitor-Rhythm Ecg Trace Only (01/05/22 21:11) Alcohol (01/05/22 21:11) Bnp [place] (01/05/22 21:11) Cbc With Automated Diff (01/05/22 21:11) Comprehensive Metabolic Panel (01/05/22 21:11) Creatine Kinase (01/05/22 21:11) Creatine Kinase Mb (01/05/22 21:11) Hs C Reactive Protein (01/05/22 21:11) Fibrin Degradation Products (01/05/22 21:11) Drug Screen Stat (Urine) (01/05/22 21:11) Lactic Acid Analyzer (01/05/22 21:11) Magnesium (01/05/22 21:11) Procalcitonin (Pct) (01/05/22 21:11) Protime With Inr (01/05/22 21:11) Partial Thromboplastin Time (01/05/22 21:11) Ua Culture If Indicated (01/05/22 21:11) Blood Culture (01/05/22 21:11) Erythrocyte Sedimentation Rate (01/05/22 21:11) Myoglobin Serum (01/05/22 21:11) Troponin I [place] (01/05/22 21:11) Chest 1 View, Ap/Pa Only (01/05/22 21:11) Covid 19 Inhouse Test (01/05/22 21:11) Influenza A And B By Pcr (01/05/22 21:11) Isolation Central Supply Req (01/05/22 21:11) Ekg Tracing (01/05/22 21:22) Nitroglycerin Ointment (Nitrobid Ointme (01/05/22 21:22) Aspirin Chewable Tablet (Baby Aspirin Ch (01/05/22 21:30) Enoxaparin Injection (Lovenox Injection) (01/05/22 21:30) Enoxaparin Injection (Lovenox Injection) (01/05/22 21:30) Diltiazem Injection (Cardizem Injection) (01/05/22 21:45) Medications Given in ED Current Medications Medications Dose Ordered Sig/Saba Route Start Time Stop Time Status Last Admin Dose Admin Diltiazem HCl 10 mg ONCE ONCE IVP 01/05/22 21:45 01/05/22 21:46 DC 01/05/22 21:56 10 MG Vital Signs/I&O 01/05/22 01/05/22 01/05/22 01/05/22 21:04 21:15 21:56 21:58 Temp 37.1 Pulse 102 130 111 Resp 24 B/P (MAP) 155/105 (122) 142/114 Pulse Ox 97 95 O2 Delivery Room Air Nasal Cannula O2 Flow Rate 2.00 Blood Pressure Mean: 123 Progress Progress Note : Progress Note PT NOTED TO BE IN INTERMITTENT ATRIAL FIBRILLATION WITH RVR WITH RATE UP TO 140'S. PT IS HYPERTENSIVE ON ARRIVAL--150-160'S/105-110'S O2 SATS 95-97% ON ROOM AIR. PLACED ON O2 FOR DYSPNEA AND CHEST PAIN . GIVEN: -ASPIRIN -1" NITROPASTE FOR CHEST PAIN AND HTN -CARDIZEM BOLUS AND PLACED ON CARDIZEM DRIP--HEART RATE DOWN TO LESS THAN 100. BLOOD PRESSURE REMAINS STABLE, AND NO HYPOTENSION. -FENTANYL FOR CONTINUED CHEST PAIN -PROTONIX -LOVENOX -ROCEPHIN FOR UTI. SEPSIS PROTOCOL INITIATED ON RETURN OF UA RESULTS. NO DETERIORATION IN PT'S CONDITION DURING ER STAY PT IS NOT DYSPNEIC OR WHEEZING AT TIME OF ADMIT. NO COMPLAINT OF CHEST PAIN AT TIME OF ADMIT. Initial ECG Impression Date: Jan 05, 2022 Initial ECG Impression Time: 21:11 Initial ECG Rate: 111 Initial ECG Rhythm: A Fib/Flutter Initial ECG Impression: Nonspecific Changes (BORDERLINE ST ELEVATION IN INFERIOR LEADS), Atrial Fibrillation w/RVR Initial ECG Comparisson: Changed (FROM EKG DONE 05/13/2021) EKG : EKG Time: 21:26 Rate: 120 Rhythm: A Fib/Flutter ECG Impression: Nonspecific Changes, Atrial Fibrillation w/RVR Diagnostic Imaging Comments CXR--PER RADIOLOGIST REPORT AT 2201 FINDINGS: Overall heart size and pulmonary vascularity are within normal limits. There is no pneumothorax or consolidation. No significant pleural fluid is seen. IMPRESSION: Stable chest without acute abnormality detected. Reviewed: Reviewed by Me CP/AMI: Aspirin, ECG, Nitrates Departure Communication (Admissions) 2154--EKG'S HAVE BEEN TEXTED TO DR. GOMEZ, AND HE HAS REVIEWED THEM, HE ADVISES NO STEMI, BUT DOES HAVE SOME BORDERLINE ST CHANGES. HE WILL SEE PT IN CONSULT. 2212--SPOKE WITH DR. JAMES, HOSPITALIST, ACCEPTS PT FOR ADMIT. ORDERS NOTED. 2224--REPORT TO E-ICU PHYSICIAN. Impression Primary Impression: NEW ONSET ATRIAL FIBRILLATION WITH RVR Additional Impressions: Chest pain HTN (hypertension) UTI (urinary tract infection) NIDDM Morbid obesity Heavy smoker Alcohol abuse COPD (chronic obstructive pulmonary disease) GERD (gastroesophageal reflux disease) Non-insulin dependent type 2 diabetes mellitus Disposition: ADMITTED INPATIENT Condition: Improved Admissions Decision to Admit Reason: Admit from ER (General) Decision to Admit/Date: Jan 05, 2022 Time/Decision to Admit Time: 22:15 Departure-Patient Inst. Referrals: ESTELLE GAR MD (PCP/Family) Primary Care Physician KRISTIAN CONTRERAS DO Jan 05, 2022 22:03
[2022-01-05 22:12] LABS: BACTERIA,URINE MODERATE /HPF; RBC,URINE 0-2 /HPF
[2022-01-05 22:13] LABS: AMORPHOUS SEDIMENT,UR FEW AMOR URATES /LPF
[2022-01-05 22:15] LABS: AMPHETAMINE SCREEN, URINE NEGATIVE (NEGATIVE); BARBITURATE SCREEN URINE NEGATIVE (NEGATIVE); BENZODIAZEPINES SCREEN URINE NEGATIVE (NEGATIVE); CANNABINOID SCREEN, URINE NEGATIVE (NEGATIVE); COCAINE SCREEN URINE NEGATIVE (NEGATIVE); METHADONE STAT NEGATIVE (NEGATIVE); OPIATE SCREEN URINE NEGATIVE (NEGATIVE); OXYCODONE STAT POSITIVE (NEGATIVE); PROPOXYPHENE STAT NEGATIVE (NEGATIVE); TRICYCLIC ANTIDEPRESSANTS SCRE NEGATIVE (NEGATIVE)
[2022-01-05] MEDS ORDERED: fentaNYL INJ 100 MCG/2 ML AMP IVP STA (22:24)
[2022-01-05] MEDS ORDERED: cefTRIAXone 1 GM PRE-MIX 50 ML IV ONE (22:30)
[2022-01-05] MEDS ORDERED: PANTOPRAZOLE 40 MG (PROTONIX) VIAL IV ONE (22:45)
[2022-01-05 22:50] LABS: AMYLASE 38 U/L (25-125)
[2022-01-05 22:59] LABS: LIPASE 40 U/L (8-78)
[2022-01-05] MEDS ORDERED: D5 1/2 NS 1000 ML IV SOLUTION 1,000 ML IV PRN (23:45)
[2022-01-05] MEDS ORDERED: ONDANSETRON 4 MG (ZOFRAN) ORAL DISSOLVE TAB SL PRN (23:45)
[2022-01-05] MEDS ORDERED: fentaNYL INJ 100 MCG/2 ML AMP IV PRN (23:45)
[2022-01-05] MEDS ORDERED: NS IV 500 ML 500 ML IV PRN (23:45)
[2022-01-05] MEDS ORDERED: LORazepam 1 MG (ATIVAN) TAB PO PRN (23:45)
[2022-01-05] MEDS ORDERED: PATIENT MAY USE OWN MEDS, ALL PO SCH (23:45)
[2022-01-05] MEDS ORDERED: ONDANSETRON 4 MG/2 ML (SDV) Z0FRAN IV PRN (23:45)
[2022-01-05] MEDS ORDERED: ANTACID SUSP 30 ML UDC (MYLANTA) PO PRN (23:45)
[2022-01-05] MEDS ORDERED: LORazepam INJ 2 MG/ML (ATIVAN) VIAL IM/IV PRN (23:45)
[2022-01-05] MEDS ORDERED: ONDANSETRON 4 MG/2 ML (SDV) Z0FRAN IVP PRN (23:45)
[2022-01-05] MEDS ORDERED: LORazepam INJ 2 MG/ML (ATIVAN) VIAL IV PRN (23:45)
[2022-01-05] MEDS ORDERED: SENNA W/DOCUSATE (SENOKOT S) TABLET PO PRN (23:45)
[2022-01-05] MEDS ORDERED: 1/2 NS IV SOLUTION 1,000 ML IV PRN (23:45)
[2022-01-06] MEDS: 1/2 NS W/KCL 20 MEQ/L 1,000 ML IV SCH ×4 (00:15→22:59)
[2022-01-06] MEDS ORDERED: THIAMINE INJECTION 100 MG in NS (IVPB) 50 ML IV SCH (00:15)
[2022-01-06 00:45] VITALS: BP 158/106
--- NOTE | 2022-01-06 00:58 | Tele-ICU Progress Note ---
Progress Note eICU 51 yo man admitted to ED with shortness of breath and R chest pain. PMHx is + for daily cigarette use, ETOH use and chronic Rx oxycodone, COPD, Pulm HTN, CLIFTON (uses CPAP) renal stones, chronic back pain, gout, HTN Last cath 05/21 was negative for significant CAD, Last ECHO was in 2010 and EF was 50% On arrival to ED was identified as having afib and was given a dose of diltiazem with conversion to sinus with PACs 1st EKG atrial fibrillation , 2nd EKG sinus with PACs CXR bibasilar haziness- poor inspiration. CBC wbcs 8600 Hgb 16.1 Plts 218,000 Lactic acid 2.94-->2.2 Flu, Covid neg UDS + oxycodone LA 2.94 Procal 0.1 CRP 0.34 UA + nitrite, 5-10 wbcs, moderate bacteria Na 136 K 4.3 Cl 101 bicarb 22 BUN 9 Cr 1.25 trop <0.028 CK 158 amylase 38 lipase 40 Per videocamera- Obese gentleman in NAD at rest, HR 101 sinus with PACs, RR 16 sats 95% BP 127/99 - is on diltiazem for HR control conv to sinus with PACs and was started on high dose Lovenox, ASA, Protonix- cardiology on consult (1) Urosepsis Has been cultured, started on ceftriaxone ,(2) alcohol abuse- CIWA protocol as needed . (3) Atrial fibrillation --started on diltiazem, lovenox-and I have added thiamine 100mg q.12 hrs IV over 3 days. Placed order for ECHO. (4) CLIFTON- Also restarted pt on nocturnal CPAP at 14, 24%- ( uses CPAP 14 at home). Focused Exam Lactate Level 01/05/22 21:30: Lactic Acid Level 2.94*H 01/05/22 23:40: Lactic Acid Level 2.20*H Height, Weight, BMI Height: 5'10.00" Weight: 330lbs. 3.0oz. 149.101838bq; 54.69 BMI Method:Stated Lactic Acid Level Laboratory Tests Test 01/05/22 21:30 01/05/22 23:40 Lactic Acid Level 2.94 MMOL/L (0.50-2.00) *H 2.20 MMOL/L (0.50-2.00) *H JESSICA HERNANDEZ DO Jan 06, 2022 00:58
[2022-01-06] MEDS ORDERED: RT-ALBUTEROL SULF 2.5 MG/3 ML PRE-MIX VIAL INH PRN (01:00)
[2022-01-06 01:12] VITALS: BP 124/88
[2022-01-06] MEDS: RT-ALBUTEROL SULF 2.5 MG/3 ML PRE-MIX VIAL INH SCH ×4 (02:14→20:44)
[2022-01-06 02:15] VITALS: BP 138/101
[2022-01-06] MEDS: NITROGLYCERIN 2% OINT 1 GM UNIT DOSE PACKET TOP SCH ×3 (03:03→15:22)
[2022-01-06] MEDS: dilTIAZem DRIP PRE-MIX 125 ML IV SCH (04:15)
[2022-01-06 05:07] LABS: BASOPHILS # (AUTO) 0.1 10^3/uL (0.0-0.1); BASOPHILS % (AUTO) 1 % (0-10); EOSINOPHILS # (AUTO) 0.3 10^3/uL (0.0-0.3); EOSINOPHILS % (AUTO) 4 % (0-10); HEMATOCRIT 45 % (40-54); HEMOGLOBIN 14.6 g/dL (13.3-17.7); LYMPHOCYTES % (AUTO) 26 % (12-44); MEAN CORPUSCULAR HEMOGLOBIN 30 pg (25-34); MEAN CORPUSCULAR HGB CONC 33 g/dL (32-36); MEAN CORPUSCULAR VOLUME 91 fL (80-99); MEAN PLATELET VOLUME 10.7 fL (9.0-12.2); MONOCYTES # (AUTO) 0.7 10^3/uL (0.0-1.0); MONOCYTES % (AUTO) 9 % (0-12); NEUTROPHILS # (AUTO) 4.6 10^3/uL (1.8-7.8); NEUTROPHILS % (AUTO) 59 % (42-75); PLATELET COUNT 180 10^3/uL (130-400); WHITE BLOOD COUNT 7.8 10^3/uL (4.3-11.0)
[2022-01-06 05:24] LABS: ALANINE AMINOTRANSFERASE 25 U/L (0-55); ALBUMIN 3.4 GM/DL (3.2-4.5); ALKALINE PHOSPHATASE 61 U/L (40-136); BILIRUBIN,TOTAL 0.4 MG/DL (0.1-1.0); BUN/CREATININE RATIO 9; CALCIUM 8.7 MG/DL (8.5-10.1); CARBON DIOXIDE 19 MMOL/L (21-32); CHLORIDE 103 MMOL/L (98-107); CREATININE SERUM 1.16 MG/DL (0.60-1.30); GFR ESTIMATED 76; GLUCOSE 118 MG/DL (70-105); MAGNESIUM 1.6 MG/DL (1.6-2.4); POTASSIUM 3.9 MMOL/L (3.6-5.0); SODIUM 137 MMOL/L (135-145); TOTAL PROTEIN 5.8 GM/DL (6.4-8.2)
[2022-01-06] MEDS: CATHETER FLUSH 10 ML SYR IVP SCH ×3 (05:39→21:34)
[2022-01-06] MEDS: inSUlin ASPART (NovoLOG) 1 UNIT/0.01 ML (CHARGE PER UNIT) SC SCH ×4 (05:44→21:34)
[2022-01-06] MEDS: POTASSIUM CL 10MEQ/50ML IVPB 50 ML IV SCH (06:28)
[2022-01-06] MEDS: KCL 20 MEQ TAB (K-DUR) PO SCH (06:28)
[2022-01-06] MEDS ORDERED: MAGNESIUM 2 GM/50 ML IVPB 50 ML IV ONE (06:30)
[2022-01-06] MEDS: MAGNESIUM 1 GM/100 ML IVPB 100 ML IV SCH ×3 (07:31→09:36)
[2022-01-06] MEDS: ASPIRIN E.C. 81 MG (ECOTRIN) TAB PO SCH ×2 (08:47→09:36)
[2022-01-06] MEDS: PANTOPRAZOLE 40 MG (PROTONIX) VIAL IV SCH (08:47)
[2022-01-06] MEDS: meTOproloL SUCCINATE 50 MG (TOPROL XL) TAB PO SCH (09:36)
[2022-01-06] MEDS: APIXABAN 5 MG (ELIQUIS) TABLET PO SCH ×2 (09:36→20:10)
[2022-01-06] MEDS: THIAMINE INJECTION 100 MG, FOLIC ACID INJECTION 1 MG, MAGNESIUM SULFATE 2 GM, VITAMIN M... IV SCH ×5 (09:59)
--- NOTE | 2022-01-06 09:59 | Diagnostic Imaging Report ---
Clinical indications: Patient with chest pain. ICU care management. EXAM: Portable chest x-ray upright view. COMPARISON: Chest x-ray dated 01/05/2022. FINDINGS: The right costophrenic angle is not completely imaged. There is no pleural effusion, as visualized. There is no pneumothorax. There is stable appearance of the lung galan with no interval lung infiltrate. Patient body habitus is suspected to cause this slight increased ground glass opacification involving the lower lung field regions. There is upper limits of normal heart size. Pulmonary vasculature is within normal limits. Bones show no significant abnormality. IMPRESSION: Stable chest x-ray exam with no interval lung infiltrate. Dictated by: Dictated on workstation # [id number]
[2022-01-06] MEDS ORDERED: ENOXAPARIN 150 MG/ML (LOVENOX) SYR SQ SCH (10:00)
--- NOTE | 2022-01-06 10:04 | Consultation-Cardiology ---
HPI-Cardiology Cardiology Consultation Date of Consultation 01/06/22 Date of Admission Time Seen by Provider: 09:59 Indication: Chest pain, palpitation HPI 71-year-old gentleman with history of alcoholism, hypertension and morbid obesity. Started to have chest pain and palpitation, came into the emergency room and noted to be in atrial fibrillation with rapid ventricular response. He was started on Cardizem drip and overnight he converted to sinus rhythm. On my evaluation he was laying down in bed, slightly anxious and slightly short of breath. No active chest pain at this point. No syncope or near syncopal episodes. Home Medications & Allergies Allergies: Coded Allergies: No Known Drug Allergies (Unverified , 03/26/21) Home Medication List Reviewed: Yes IPE-Bvoetu-Nglgwt Hx Patient Social History Marital Status: Drug of Choice: marijuana Smoking Status: Current Everyday Smoker Type Used: Cigarettes 2nd Hand Smoke Exposure: Yes Recent Hopitalizations: No Alcohol Use?: Yes Immunizations Up To Date Tetanus Booster (TDap): Less than 5yrs Date of Pneumonia Vaccine: May 22, 2016 Date of Influenza Vaccine: Nov 14, 2019 Past Medical History Discussed below Family Medical History Significant Family History: DVT/PE, Diabetes, GI Disease Family History: Completed stroke DVT 19 MOTHER, , Onset:Unknown Diabetes mellitus 19 MOTHER, , Onset:Unknown G8 BROTHER, Onset:Unknown FH: gastric ulcer 19 FATHER, Onset:Unknown Review of Systems-General Review of Systems Constitutional: see HPI, diaphoresis; No dizziness, No fever; malaise EENTM: see HPI, no symptoms reported Respiratory: see HPI; No cough; dyspnea on exertion; No hemoptysis, No orthopnea, No phlegm; short of breath; No stridor, No wheezing, No other Cardiovascular: see HPI, chest pain; No edema, No Hx of Intervention; palpitations; No syncope, No vascular heart diseas, No other Gastrointestinal: no symptoms reported, see HPI Genitourinary: no symptoms reported, see HPI Musculoskeletal: no symptoms reported, see HPI; No back pain Skin: no symptoms reported, see HPI; No rash Psychiatric/Neurological: See HPI, Anxiety; Denies Headache, Denies Numbness, Denies Paresthesia, Denies Seizure, Denies Tremors, Denies Weakness Reviewed Test Results Reviewed Test Results Lab Laboratory Tests Test 01/05/22 21:15 01/05/22 21:23 01/05/22 21:30 01/05/22 21:47 Range/Units White Blood Count 8.6 4.3-11.0 10^3/uL Red Blood Count 5.49 4.30-5.52 10^6/uL Hemoglobin 16.1 13.3-17.7 g/dL Hematocrit 49 40-54 % Mean Corpuscular Volume 89 80-99 fL Mean Corpuscular Hemoglobin 29 25-34 pg Mean Corpuscular Hemoglobin Concent 33 32-36 g/dL Red Cell Distribution Width 14.4 10.0-14.5 % Platelet Count 218 130-400 10^3/uL Mean Platelet Volume 10.7 9.0-12.2 fL Immature Granulocyte % (Auto) 1 % Neutrophils (%) (Auto) 60 42-75 % Lymphocytes (%) (Auto) 27 12-44 % Monocytes (%) (Auto) 8 0-12 % Eosinophils (%) (Auto) 4 0-10 % Basophils (%) (Auto) 1 0-10 % Neutrophils # (Auto) 5.2 1.8-7.8 10^3/uL Lymphocytes # (Auto) 2.3 1.0-4.0 10^3/uL Monocytes # (Auto) 0.7 0.0-1.0 10^3/uL Eosinophils # (Auto) 0.3 0.0-0.3 10^3/uL Basophils # (Auto) 0.1 0.0-0.1 10^3/uL Immature Granulocyte # (Auto) 0.1 0.0-0.1 10^3/uL Erythrocyte Sedimentation Rate 4 0-30 MM/HR Prothrombin Time 12.6 12.2-14.7 SEC INR Comment 0.9 0.8-1.4 Activated Partial Thromboplast Time 29 24-35 SEC D-Dimer 0.31 0.00-0.49 UG/ML Sodium Level 136 135-145 MMOL/L Potassium Level 4.3 3.6-5.0 MMOL/L Chloride Level 101 98-107 MMOL/L Carbon Dioxide Level 22 21-32 MMOL/L Anion Gap 13 5-14 MMOL/L Blood Urea Nitrogen 9 7-18 MG/DL Creatinine 1.25 0.60-1.30 MG/DL Estimat Glomerular Filtration Rate 69 BUN/Creatinine Ratio 7 Glucose Level 162 H 70-105 MG/DL Calcium Level 9.5 8.5-10.1 MG/DL Corrected Calcium 9.6 8.5-10.1 MG/DL Magnesium Level 1.9 1.6-2.4 MG/DL Total Bilirubin 0.4 0.1-1.0 MG/DL Aspartate Amino Transf (AST/SGOT) 32 5-34 U/L Alanine Aminotransferase (ALT/SGPT) 34 0-55 U/L Alkaline Phosphatase 73 40-136 U/L Total Creatine Kinase 158 30-200 U/L Creatine Kinase MB 5.0 <6.6 NG/ML Myoglobin 93.2 H 10.0-92.0 NG/ML Troponin I < 0.028 <0.028 NG/ML C-Reactive Protein High Sensitivity 0.34 0.00-0.50 MG/DL B-Type Natriuretic Peptide 25.3 <100.0 PG/ML Total Protein 6.8 6.4-8.2 GM/DL Albumin 3.9 3.2-4.5 GM/DL Amylase Level 38 25-125 U/L Lipase 40 8-78 U/L Beta-Hydroxybutyrate (Chem panel) 0.17 0.00-0.27 MMOL/L Procalcitonin 0.10 H <0.10 NG/ML Serum Alcohol < 10 <10 MG/DL Influenza Type A (RT-PCR) Not Detected Not Detecte Influenza Type B (RT-PCR) Not Detected Not Detecte SARS-CoV-2 RNA (RT-PCR) Not Detected Not Detecte Lactic Acid Level 2.94 *H 0.50-2.00 MMOL/L Urine Color YELLOW Urine Clarity CLEAR Urine pH 6.5 5-9 Urine Specific [place] 1.025 H 1.016-1.022 Urine Protein 2+ H NEGATIVE Urine Glucose (UA) NEGATIVE NEGATIVE Urine Ketones NEGATIVE NEGATIVE Urine Nitrite POSITIVE H NEGATIVE Urine Bilirubin NEGATIVE NEGATIVE Urine Urobilinogen 0.2 < = 1.0 MG/DL Urine Leukocyte Esterase TRACE H NEGATIVE Urine RBC (Auto) TRACE-I H NEGATIVE Urine RBC 0-2 /HPF Urine WBC 5-10 H /HPF Urine Squamous Epithelial Cells 2-5 /HPF Urine Crystals PRESENT H /LPF Urine Amorphous Sediment FEW TARYN URATES H /LPF Urine Bacteria MODERATE H /HPF Urine Casts NONE /LPF Urine Mucus SMALL H /LPF Urine Culture Indicated YES Urine Opiates Screen NEGATIVE NEGATIVE Urine Oxycodone Screen POSITIVE H NEGATIVE Urine Methadone Screen NEGATIVE NEGATIVE Urine Propoxyphene Screen NEGATIVE NEGATIVE Urine Barbiturates Screen NEGATIVE NEGATIVE Ur Tricyclic Antidepressants Screen NEGATIVE NEGATIVE Urine Phencyclidine Screen NEGATIVE NEGATIVE Urine Amphetamines Screen NEGATIVE NEGATIVE Urine Methamphetamines Screen NEGATIVE NEGATIVE Urine Benzodiazepines Screen NEGATIVE NEGATIVE Urine Cocaine Screen NEGATIVE NEGATIVE Urine Cannabinoids Screen NEGATIVE NEGATIVE Test 01/05/22 23:40 01/06/22 01:10 01/06/22 04:45 01/06/22 05:40 Range/Units Lactic Acid Level 2.20 *H 0.50-2.00 MMOL/L Troponin I < 0.028 < 0.028 <0.028 NG/ML White Blood Count 7.8 4.3-11.0 10^3/uL Red Blood Count 4.91 4.30-5.52 10^6/uL Hemoglobin 14.6 13.3-17.7 g/dL Hematocrit 45 40-54 % Mean Corpuscular Volume 91 80-99 fL Mean Corpuscular Hemoglobin 30 25-34 pg Mean Corpuscular Hemoglobin Concent 33 32-36 g/dL Red Cell Distribution Width 14.9 H 10.0-14.5 % Platelet Count 180 130-400 10^3/uL Mean Platelet Volume 10.7 9.0-12.2 fL Immature Granulocyte % (Auto) 1 % Neutrophils (%) (Auto) 59 42-75 % Lymphocytes (%) (Auto) 26 12-44 % Monocytes (%) (Auto) 9 0-12 % Eosinophils (%) (Auto) 4 0-10 % Basophils (%) (Auto) 1 0-10 % Neutrophils # (Auto) 4.6 1.8-7.8 10^3/uL Lymphocytes # (Auto) 2.0 1.0-4.0 10^3/uL Monocytes # (Auto) 0.7 0.0-1.0 10^3/uL Eosinophils # (Auto) 0.3 0.0-0.3 10^3/uL Basophils # (Auto) 0.1 0.0-0.1 10^3/uL Immature Granulocyte # (Auto) 0.1 0.0-0.1 10^3/uL Sodium Level 137 135-145 MMOL/L Potassium Level 3.9 3.6-5.0 MMOL/L Chloride Level 103 98-107 MMOL/L Carbon Dioxide Level 19 L 21-32 MMOL/L Anion Gap 15 H 5-14 MMOL/L Blood Urea Nitrogen 10 7-18 MG/DL Creatinine 1.16 0.60-1.30 MG/DL Estimat Glomerular Filtration Rate 76 BUN/Creatinine Ratio 9 Glucose Level 118 H 70-105 MG/DL Calcium Level 8.7 8.5-10.1 MG/DL Corrected Calcium 9.2 8.5-10.1 MG/DL Phosphorus Level 4.0 2.3-4.7 MG/DL Magnesium Level 1.6 1.6-2.4 MG/DL Total Bilirubin 0.4 0.1-1.0 MG/DL Aspartate Amino Transf (AST/SGOT) 23 5-34 U/L Alanine Aminotransferase (ALT/SGPT) 25 0-55 U/L Alkaline Phosphatase 61 40-136 U/L Total Protein 5.8 L 6.4-8.2 GM/DL Albumin 3.4 3.2-4.5 GM/DL Glucometer 124 H 70-110 MG/DL Physical Exam Physical Exam Vital Signs Vital Signs - First Documented 01/05/22 01/05/22 21:04 21:15 Temp 37.1 Pulse 102 Resp 24 B/P (MAP) 155/105 (122) Pulse Ox 97 O2 Delivery Room Air O2 Flow Rate 2.00 Capillary Refill : Less Than 3 Seconds Height, Weight, BMI Height: 5'10.00" Weight: 330lbs. 3.0oz. [id number]; 54.69 BMI Method:Stated General Appearance: WD/WN, Obese (MORBIDLY OBESE--PT THINKS HE WEIGHS AROUND 360#, BUT HAS NO IDEA WHEN HE LAST WAS WEIGHED OR HOW MUCH HE WEIGHED AT THAT TIME. ), Other (PT IS FILTHY, VERY UNKEMPT AND VERY MALODOROUS, REEKS OF CIGARETTES. HE IS DYSPNEIC AT REST WITH AUDIBLE WHEEZING. KEEPS EYES CLOSED AT ALL TIMES. SPEECH PATTERN IS MUMBLED. ) Eyes: Bilateral Eye Normal Inspection, Bilateral Eye PERRL, Bilateral Eye EOMI HEENT: PERRL/EOMI, Other (POOR DENTITION) Neck: Normal Inspection; No JVD Respiratory: Chest Non Tender, Lungs Clear Cardiovascular: Regular Rate, Rhythm, No Murmur Gastrointestinal: Non Tender, Soft, Other (OBESE--UNABLE TO DETERMINE IF ORGANOMEGALY OR MASSES ARE PRESENT. 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 Probably s econdary to atrial fibrillation with rapid ventricular response. Paroxysmal atrial fibrillation, admitted with atrial fibrillation with rapid ventricular response, converted to sinus rhythm on Cardizem drip I am starting Toprol-XL 50 mg daily and Eliquis 5 mg twice daily Evaluate 2D echocardiogram Coronary artery disease, cardiac catheterization done by Dr. Bauman in July 2017 showing moderate proximal disease in the ramus branch. There was no other focal disease. Hypertension, monitor blood pressure on Toprol. Morbid obesity, BMI 54, we discussed weight loss Tobaccoism, educated on smoking cessation Alcoholism, discussed avoiding alcohol, Alcohol level is low. Did not drink recently Anxiety. COPD/obesity hypoventilation system/obstructive sleep apnea, treated with CPAP KELSEY GOMEZ MD Jan 06, 2022 10:04
--- NOTE | 2022-01-06 10:11 | History & Physical-Hospitalist ---
History of Present Illness HPI/Chief Complaint PT ARRIVES VIA EMS FROM HOME PT STATES THAT 1/2 HOUR PRIOR TO ARRIVAL, AT 2030 TONIGHT, HE WAS SITTING AND EATING WHEN HE SUDDENLY BEGAN FEELING SHORT OF BREATH AND HAVING CHEST PAIN PAIN IS IN CENTER OF CHEST AND IS A BURNING SENSATION PAIN DOES NOT RADIATE RATES PAIN 5/10 AT THIS TIME. NOTHING WORSENS OR IMPROVES SYMPTOMS STATES HE GOT VERY SWEATY WHEN SYMPTOMS BEGAN NO NAUSEA/VOMITING NO FEVER + COUGH NO PALPITATIONS NO DIZZINESS OR SYNCOPE NO ABDOMINAL PAIN OR BACK PAIN NO SWELLING IN LEGS OR PAIN IN CALVES. NO HISTORY OF SIMILAR PT HAS NOT TAKEN HIS MEDICATIONS TODAY STATES HE HAS HAD "A LITTLE BIT" OF ALCOHOL TODAY, BUT DOES NOT ELABORATE ON HOW MUCH OR WHAT HE DRANK HE DENIES USING ANY DRUGS TODAY, BUT HAS HISTORY OF POLYSUBSTANCE ABUSE PT IS DIABETIC, NEVER CHECKS HIS BLOOD SUGAR OR FOLLOWS ANY DIET BLOOD GLUCOSE 164 ON ARRIVAL. PT DENIES ANY HISTORY OF HEART PROBLEMS OR IRREGULAR HEART BEATH HE DENIES ANY HISTORY OF ASTHMA OR COPD, AND DOES NOT HAVE AN INHALER OR NEBULIZER OR HOME O2. ( ON REVIEW OF OLD RECORDS, IS LISTED THAT HE HAS COPD) PT CONTINUES TO SMOKE. PT HAS A LONG HISTORY OF NON-COMPLIANCE IN ALL ASPECTS OF CARE HAS HAD COVID-19 VACCINE X 2--> 1 YEAR AGO PCP: DR. CASPER, [facility] Upon my arrival patient reports improvement in chest pain as well as shortness of breath. He is in sinus rhythm on a Cardizem drip. He was found to be in A. fib with apparent RVR the highest documented heart rate that I can find is 130 but he apparently converted after IV Cardizem was initiated. He is not aware of any previous history of atrial fibrillation. He does have a BMI nearly 55 is on CPAP with likely obesity hypoventilation syndrome. He reports a heart cath within the past several years the per his recall did not reveal any significant blockage and did not lead any intervention. He has had no leg pain swelling denies any past history of thromboembolic disease and is not aware of any COVID exposure. Shortness of breath and chest discomfort have been rather abruptly. Serial troponin levels overnight have been normal and currently he is in sinus rhythm with frequent PACs. Dr. Ndiaye is following. Date Seen 01/06/22 Time Seen by a Provider: 09:30 Attending Physician Nathaniel Martinez MD PCP Admitting Physician: Teja Sweeney MD Attending Physician: Teja Sweeney MD Referring Physician Date of Admission Jan 05, 2022 at 22:00 Home Medications & Allergies Home Medications Reviewed patient Home Medication Reconciliation performed by pharmacy medication reconciliations critical power install technician and/or nursing. Patients Allergies have been reviewed. Allergies Allergies Coded Allergies No Known Drug Allergies (Unverified03/26/21) Past [id number]-Imfsex Hx Patient Social History Marrital Status: Tobacco Use?: Yes Tobacco type used: Cigars, Cigarettes Smoking Status: Current Everyday Smoker Smokeless Tobacco Frequency: Never a User Use of E-Cig and/or Vaping dev: No Substance use?: Yes Alcohol Use?: Yes Alcohol type: Hard Liquor Alcohol Frequency: Daily Pt feels they are or have been: No Immunizations Up To Date Date of Influenza Vaccine: Nov 14, 2019 First/Initial COVID19 Vaccinat: JUNE 01, 2020 Second COVID19 Vaccination Ronald: JUNE 15, 2020 Tetanus Booster (TDap): More Than 5 Years Hepatitis A: No Hepatitis B: No PED Vaccines UTD: No Date of Pneumonia Vaccine: May 22, 2016 Seasonal Allergies Seasonal Allergies: No Current Status Advance Directives: No Communicates: Verbally Primary Language: Swedish Preferred Spoken Language: Swedish Is interpretation needed?: No Implanted or Applied Medical D: Other Past Medical History Surgeries: Gallbladder, Orthopedic, Renal COPD Currently Using CPAP: Yes Currently Using BIPAP: No High Cholesterol, Hypertension Neuropathy Sexually Transmitted Disease: No HIV/AIDS: No Kidney Infection, Prostate Problems, Kidney Stones, Renal Failure Colitis, Gastroesophageal Reflux, Gall Bladder Disease Degenerate Disk Disease, Arthritis, Chronic Back Pain, Gout Diabetes, Non-Insulin dep Anxiety, Bipolar, Depression Blood Disorders: No Adverse Reaction/Blood Tranf: No PMHx: HTN NIDDM Restless Legs COPD Sleep apnea on cpap SurgHx: Back surgery Cholecystectomy Family Medical History Completed stroke DVT 19 MOTHER, , Onset:Unknown Diabetes mellitus 19 MOTHER, , Onset:Unknown G8 BROTHER, Onset:Unknown FH: gastric ulcer 19 FATHER, Onset:Unknown DVT/PE, Diabetes, GI Disease SOCIAL HISTORY: -SMOKES AT LEAST 1 PPD -ETOH--HARD LIQUOR SEVERAL TIMES A WEEK -DRUGS--EXTENSIVE HISTORY OF DRUG USE, INCLUDING "SPEED" , COCAINE, MARIJUANA. HE DENIES IV DRUG USE, BUT HE HAS A TATTOO OF A SYRINGE AND NEEDLE IN HIS RIGHT AC SPACE. PAST SURGICAL HISTORY: -CHOLECYSTECTOMY -BACK SURGERY 2003 -URETERAL STENTS -LITHOTRIPSY 03/27/[address] GONZALES -CARDIAC CATH 05/09/[address] ALMEIDA: CONCLUSIONS: 1. No angiographically significant coronary artery disease. 2. Elevated left ventricular end-diastolic pressure. Review of Systems Constitutional: see HPI Physical Exam Physical Exam Vital Signs Vital Signs - First Documented 01/05/22 01/05/22 21:04 21:15 Temp 37.1 Pulse 102 Resp 24 B/P (MAP) 155/105 (122) Pulse Ox 97 O2 Delivery Room Air O2 Flow Rate 2.00 Capillary Refill : Less Than 3 Seconds Height, Weight, BMI Height: 5'10.00" Weight: 330lbs. 3.0oz. 149.975503cj; 54.69 BMI Method:Stated General Appearance: No Apparent Distress, Obese Respiratory: Chest Non Tender, Lungs Clear, Normal Breath Sounds, No Accessory Muscle Use, No Respiratory Distress Cardiovascular: Regular Rate, Rhythm, No Edema, No Gallop, No JVD, No Murmur, Normal Peripheral Pulses, Other (Cardiac as well as of breath sounds are distant) Gastrointestinal: Normal Bowel Sounds, No Organomegaly, No Pulsatile Mass, Non Tender, Soft Extremity: Other ( trace edema no calf tenderness no induration no evidence for infection or erythema.) Results Results/Procedures Labs Laboratory Tests 01/05/22 21:15 01/06/22 04:45 Patient resulted labs reviewed. Assessment/Plan Admission Diagnosis 1. A. fib with RVR and likely secondary chest pain especially in light of the fact that his D-dimer is normal with no other infectious sounding symptoms and abrupt onset of symptoms. Currently he is back in sinus rhythm on Cardizem drip with frequent PACs defer to cardiology. Eliquis has been initiated which will suffice for DVT prophylaxis. 2. Obstructive sleep apnea morbid obesity with likely obesity related hypoventilation syndrome continue at bedtime CPAP. 3. Considering that there only 5-10 white cells in his urine urinary tract infection is questionable that we will continue the Rocephin for now. 4. Reported alcohol use disorder withdrawal protocol initiated. Admission Status: Inpatient Order (span 2 midnights) Reason for Inpatient Admission: See admission diagnosis TEJA SWEENEY MD Jan 06, 2022 10:11
[2022-01-06] MEDS ORDERED: FUROSEMIDE 40 MG/4 ML INJ (LASIX) IVP NR (11:00)
[2022-01-06] MEDS ORDERED: DULoxetine 30 MG (CYMBALTA) CAP PO NR (11:00)
[2022-01-06] MEDS ORDERED: GABAPENTIN 300 MG (NEURONTIN) CAP PO NR (11:00)
[2022-01-06] MEDS ORDERED: ACETAMINOPHEN 500 MG TAB (TYLENOL) PO PRN ×2 (17:15→21:15)
[2022-01-06] MEDS ORDERED: ACETAMINOPHEN 500 MG TAB (TYLENOL) ONE (18:03)
[2022-01-06] MEDS: GABAPENTIN 300 MG (NEURONTIN) CAP PO SCH (20:10)
[2022-01-06 20:39] VITALS: BP 161/111
[2022-01-06] MEDS: cefTRIAXone 1 GM/50 ML (PRE-MIX) IV SCH (21:35)
[2022-01-06 23:10] VITALS: BP 120/76
[2022-01-07 02:47] VITALS: BP 136/84
[2022-01-07] MEDS: RT-ALBUTEROL SULF 2.5 MG/3 ML PRE-MIX VIAL INH SCH ×4 (02:50→20:26)
[2022-01-07 04:41] LABS: BASOPHILS # (AUTO) 0.1 10^3/uL (0.0-0.1); BASOPHILS % (AUTO) 1 % (0-10); EOSINOPHILS # (AUTO) 0.2 10^3/uL (0.0-0.3); EOSINOPHILS % (AUTO) 3 % (0-10); HEMATOCRIT 43 % (40-54); HEMOGLOBIN 13.9 g/dL (13.3-17.7); LYMPHOCYTES # (AUTO) 1.8 10^3/uL (1.0-4.0); LYMPHOCYTES % (AUTO) 25 % (12-44); MEAN CORPUSCULAR HEMOGLOBIN 29 pg (25-34); MEAN CORPUSCULAR HGB CONC 33 g/dL (32-36); MEAN CORPUSCULAR VOLUME 90 fL (80-99); MEAN PLATELET VOLUME 10.5 fL (9.0-12.2); MONOCYTES # (AUTO) 0.6 10^3/uL (0.0-1.0); MONOCYTES % (AUTO) 8 % (0-12); NEUTROPHILS # (AUTO) 4.6 10^3/uL (1.8-7.8); NEUTROPHILS % (AUTO) 63 % (42-75); PLATELET COUNT 173 10^3/uL (130-400); WHITE BLOOD COUNT 7.2 10^3/uL (4.3-11.0)
[2022-01-07 05:04] LABS: ALBUMIN 3.5 GM/DL (3.2-4.5); BILIRUBIN,TOTAL 0.4 MG/DL (0.1-1.0); CALCIUM 8.3 MG/DL (8.5-10.1); CREATININE SERUM 1.2 MG/DL (0.60-1.30); MAGNESIUM 2.1 MG/DL (1.6-2.4); PHOSPHORUS 3.2 MG/DL (2.3-4.7); TOTAL PROTEIN 5.9 GM/DL (6.4-8.2)
[2022-01-07] MEDS: MAGNESIUM 1 GM/100 ML IVPB 100 ML IV SCH ×2 (05:21→10:53)
[2022-01-07] MEDS: POTASSIUM CL 10MEQ/50ML IVPB 50 ML IV SCH (05:21)
[2022-01-07] MEDS: KCL 20 MEQ TAB (K-DUR) PO SCH (05:22)
[2022-01-07] MEDS: 1/2 NS W/KCL 20 MEQ/L 1,000 ML IV SCH ×2 (05:30→08:37)
[2022-01-07] MEDS: CATHETER FLUSH 10 ML SYR IVP SCH ×3 (05:31→21:47)
[2022-01-07] MEDS: inSUlin ASPART (NovoLOG) 1 UNIT/0.01 ML (CHARGE PER UNIT) SC SCH ×4 (05:32→21:38)
[2022-01-07] MEDS ORDERED: MAGNESIUM 1 GM/100 ML IVPB 100 ML IV ONE (06:15)
[2022-01-07 06:59] VITALS: BP 152/95
[2022-01-07] MEDS: PANTOPRAZOLE 40 MG (PROTONIX) VIAL IV SCH (08:36)
[2022-01-07] MEDS: meTOproloL SUCCINATE 50 MG (TOPROL XL) TAB PO SCH (08:36)
[2022-01-07] MEDS: GABAPENTIN 300 MG (NEURONTIN) CAP PO SCH (08:36)
[2022-01-07] MEDS: THIAMINE INJECTION 100 MG, FOLIC ACID INJECTION 1 MG, MAGNESIUM SULFATE 2 GM, VITAMIN M... IV SCH ×5 (08:36)
[2022-01-07] MEDS: APIXABAN 5 MG (ELIQUIS) TABLET PO SCH ×2 (08:37→20:34)
[2022-01-07] MEDS: ASPIRIN E.C. 81 MG (ECOTRIN) TAB PO SCH (08:37)
[2022-01-07] MEDS: DULoxetine 30 MG (CYMBALTA) CAP PO SCH (08:37)
--- NOTE | 2022-01-07 09:13 | Cardiology Progress Note ---
Subjective Date Seen by Provider: Jan 07, 2022 Time Seen by Provider: 09:10 Subjective/Events-last exam Patient was seen at bedside, laying down comfortably, feeling better. No new complain Review of Systems General: No Chills, No Night Sweats, No Fatigue, No Malaise, No Appetite, No Other HEENT: No Head Aches, No Visual Changes, No Eye Pain, No Ear Pain, No Dysphas ia, No Sinus Congestion, No Post Nasal Drip, No Sore Throat, No Other Pulmonary: Dyspnea; No Cough, No Pleuritic Chest Pain, No Other Cardiovascular: No: Chest Pain, Palpitations, Orthopnea, Paroxysmal Noc. Dyspnea, Edema, Lt Headedness, Other Focused Exam Lactate Level 01/05/22 21:30: Lactic Acid Level 2.94*H 01/05/22 23:40: Lactic Acid Level 2.20*H 01/06/22 01:10: Time of Focused Exam: 22:10 Objective-Cardiology Exam Last Set of Vital Signs Vital Signs 01/07/22 01/07/22 06:59 09:00 Pulse 98 Resp 22 B/P (MAP) 146/99 (115) Pulse Ox 96 O2 Delivery Room Air O2 Flow Rate 24.00 I&O Intake and Output 01/07/22 00:00 Intake Total 4625 ml Output Total 2925 ml Balance 1700 ml Intake Oral 1300 ml IV Total 3325 ml Output Urine Total 2925 ml # Voids 2 # Bowel Movements 1 General: Alert, Oriented X3, Cooperative HEENT: Atraumatic, PERRLA Neck: Supple, No JVD, No Thyromegaly Lungs: Clear to Auscultation, Normal Air Movement Heart: Normal S1, Normal S2, No Murmurs, Other (Atrial fibrillation) Abdomen: Normal Bowel Sounds, Soft, No Tenderness, No Hepatosplenomegaly, No Masses Extremities: No Clubbing, No Cyanosis, No Edema, Normal Pulses, No Tenderness/Swelling Skin: No Rashes, No Breakdown, No Significant Lesion Neuro: Normal Gait, Normal Speech, Strength at 5/5 X4 Ext, Normal Tone, Sensation Intact Psych/Mental Status: Mental Status NL, Mood NL Results Lab Laboratory Tests 01/07/22 04:22 A/P-Cardiology Admission Diagnosis Chest pain Palpitation Paroxysmal atrial fibrillation Coronary artery disease Assessment/Plan Chest pain, nonspecific etiology, history of chronic chest pain. Probably secondary to atrial fibrillation with rapid ventricular response. Paroxysmal atrial fibrillation, admitted with atrial fibrillation with rapid ventricular response, converted to sinus rhythm on Cardizem drip In and out of atrial fibrillation. Rate is controlled. Continue on Toprol and increase the dose to 100 mg daily and evaluate tolerance and response [id number] score 2 based on age and hypertension. Currently on Eliquis 5 mg twice daily 2D echo done on January 06, 2022, poor quality study, normal LV size with EF 55 to 60%, PA pressure 20 mmHg Coronary artery disease, cardiac catheterization done by Dr. Bauman in July 2017 showing moderate proximal disease in the ramus branch. There was no other focal disease. Hypertension, monitor blood pressure on Toprol. Morbid obesity, BMI 54, we discussed weight loss Tobaccoism, educated on smoking cessation Alcoholism, discussed avoiding alcohol, Alcohol level is low. Did not drink recently Anxiety. COPD/obesity hypoventilation system/obstructive sleep apnea, treated with CPAP KELSEY GOMEZ MD Jan 07, 2022 09:13
[2022-01-07] MEDS ORDERED: POTA-179 PO (09:15)
[2022-01-07] MEDS ORDERED: ASPI-1238 PO (09:15)
[2022-01-07] MEDS ORDERED: BACL10TA PO (09:15)
[2022-01-07] MEDS ORDERED: TMSL.4C PO (09:15)
[2022-01-07] MEDS ORDERED: METF-399 PO (09:15)
[2022-01-07] MEDS: meTOprolol SUCCINATE 100 MG (TOPROL XL) TAB PO SCH (10:52)
[2022-01-07] MEDS: MULTIVIT W/MINERALS TAB (THERAGRAN M) PO SCH (10:52)
[2022-01-07] MEDS: FOLIC ACID 1 MG TAB PO SCH (10:53)
[2022-01-07] MEDS: THIAMINE 100 MG (VITAMIN B-1) TAB PO SCH (10:53)
--- NOTE | 2022-01-07 11:03 | Tele-ICU Progress Note ---
Subjective Date Seen by a Provider: Jan 07, 2022 Time Seen by a Provider: 11:00 Subjective/Events-last exam (Tele-ICU Physician , Progress Note ) Service provided via interactive audio and video telecommunications E-CARE system to a patient admitted to ICU bed in [facility]. Available chart/ vitals / labs / Images reviewed Video assessment done using teleICU camera, rest of exam as per RN Discussed with RN Events overnight : Afebrile hemodynamically stable Respiratory - I/O = Drips: Pressors- no Consultants: crds Hospital course: (01/05) 51yr M admitted for UTI, Afib RVR.(NEW) CARDIZEM GTT A/P UTI - on ceftriaxone - as per PCP A fib rvr- SINUS now - AC - eliquis - ECHO 01/06 - EF 55% , RVSP 20 - as per cvards Alcohol abuse - CIWA protocol -thiamine [place] nocturnal CPAP at 14- home settings Lines : , (Central Line Necessity Reviewed) Tomas: OG: Nutrition: Analgesia: Anxiety/ delirium VTE Prophylaxis: eliquis Stress Ulcer Prophylaxis: na Plans in collaboration with bedside consultants and IM MDs. Discussed with RN to reach out if any questions or concerns A total of 20 minutes of critical care time was devoted to this patient today, required to treat and/or prevent further deterioration of critical care condition ( as above ) . I am remotely monitoring this patient from another state. I am unable to do the bedside exam, and history/physical and pertinent information is taken from other notes in the computer and bedside staff. Sepsis Event Evaluation Height, Weight, BMI Height: 5'10.00" Weight: 330lbs. 3.0oz. 149.717510ic; 54.69 BMI Method:Stated Focused Exam Lactate Level 01/05/22 21:30: Lactic Acid Level 2.94*H 01/05/22 23:40: Lactic Acid Level 2.20*H 01/06/22 01:10: Time of Focused Exam: 22:10 Exam Exam Patient acknowledged, consented, and participated in this virtual visit which was conducted using real time audio/video Vital Signs Date Time Temp Pulse Resp B/P (MAP) Pulse Ox O2 Delivery O2 Flow Rate FiO2 01/07/22 09:00 98 22 146/99 (115) 96 Room Air 01/07/22 08:00 93 13 147/84 (105) 94 Room Air 01/07/22 07:00 92 01/07/22 07:00 81 160/89 (112) 96 Room Air 01/07/22 06:59 89 20 96 24.00 01/07/22 06:00 104 152/95 (114) 93 NIV CPAP 01/07/22 05:00 93 134/104 (114) 95 NIV CPAP 01/07/22 04:00 36.2 01/07/22 04:00 95 NIV CPAP 01/07/22 04:00 97 18 118/81 (93) 93 NIV CPAP 01/07/22 03:00 96 22 116/80 (92) 96 NIV CPAP 01/07/22 02:47 87 20 95 24.00 01/07/22 02:00 86 7 136/84 (101) 96 NIV CPAP 01/07/22 01:00 98 20 143/89 (107) 94 NIV CPAP 01/07/22 01:00 83 01/07/22 00:00 36.6 01/07/22 00:00 87 23 129/92 (104) 96 NIV CPAP 01/07/22 00:00 98 NIV CPAP 01/06/22 23:10 85 22 96 24.00 01/06/22 23:00 89 14 120/76 (91) 96 NIV CPAP 01/06/22 22:00 89 19 149/103 (118) 95 NIV CPAP 01/06/22 21:00 98 20 155/109 (124) 96 NIV CPAP 01/06/22 20:39 96 16 98 24.00 01/06/22 20:00 96 27 161/111 (128) 95 NIV CPAP 01/06/22 20:00 36.5 01/06/22 20:00 95 Nasal Cannula 2.00 01/06/22 19:00 101 23 161/113 (129) 95 NIV CPAP 01/06/22 19:00 95 01/06/22 18:00 92 12 150/116 (127) 97 NIV CPAP 01/06/22 17:00 90 11 145/96 (112) 97 NIV CPAP 01/06/22 16:00 97 23 120/72 (88) 96 NIV CPAP 01/06/22 16:00 93 Nasal Cannula 2.00 01/06/22 15:00 94 22 144/10 (54) 96 NIV CPAP 01/06/22 14:53 97 Nasal Cannula 1.50 01/06/22 14:00 102 24 152/104 (120) 94 NIV CPAP 01/06/22 13:00 96 22 168/96 (120) 97 NIV CPAP 01/06/22 12:58 96 01/06/22 12:00 102 26 154/98 (116) 96 NIV CPAP 01/06/22 12:00 96 NIV CPAP 01/06/22 12:00 36.7 I & O 01/07/22 06:59 Intake Total 4500 ml Output Total 3625 ml Balance 875 ml Height & Weight Height: 5'10.00" Weight: 330lbs. 3.0oz. 149.732749yv; 54.69 BMI Method:Stated General Appearance: No Apparent Distress, Obese HEENT: PERRL/EOMI, Other (POOR DENTITION) Neck: Normal Inspection; No JVD Respiratory: Chest Non Tender, Lungs Clear, Normal Breath Sounds, No Accessory Muscle Use, No Respiratory Distress Cardiovascular: Regular Rate, Rhythm, No Edema, No Gallop, No JVD, No Murmur, Normal Peripheral Pulses, Other (Cardiac as well as of breath sounds are distant) Capillary Refill: Less Than 3 Seconds Extremity: Other ( trace edema no calf tenderness no induration no evidence for infection or erythema.) Neurologic/Psychiatric: Alert, Oriented x3, No Motor/Sensory Deficits, meat stringer II- XII Norm as Tested Skin: Normal Color, Warm/Dry, Tattoos/Piercings (EXTENSIVE TATTOOS, INCLUDING TATTOO OF A SYRINGE WITH NEEDLE IN RIGHT AC SPACE) Lymphatic: No Adenopathy Results Lab Laboratory Tests 01/05/22 21:15 01/06/22 04:45 01/07/22 04:22 Assessment/Plan Assessment/Plan 1 ALBA BOLAND MD Jan 07, 2022 11:03
--- NOTE | 2022-01-07 15:10 | Progress Note ---
Subjective Subjective/Events-last exam Pt seen at 0920. Pt states he is feeling okay, he still feels short of breath but better than when he came in. Focused Exam Lactate Level 01/05/22 21:30: Lactic Acid Level 2.94*H 01/05/22 23:40: Lactic Acid Level 2.20*H 01/06/22 01:10: Time of Focused Exam: 22:10 Objective Exam Last Set of Vital Signs Vital Signs Date Time Temp Pulse Resp B/P (MAP) Pulse Ox O2 Delivery O2 Flow Rate FiO2 01/07/22 14:00 94 128/85 (99) 96 Nasal Cannula 2.00 01/07/22 12:00 36.4 01/07/22 12:00 38 Capillary Refill : Less Than 3 Seconds I&O Intake and Output 01/07/22 00:00 Intake Total 4625 ml Output Total 2925 ml Balance 1700 ml Intake Oral 1300 ml IV Total 3325 ml Output Urine Total 2925 ml # Voids 2 # Bowel Movements 1 General: Alert, No Acute Distress Lungs: Clear to Auscultation, Normal Air Movement Heart: Other (distant heart sounds, tachycardic, regular) Extremities: No Edema Neuro: Normal Speech Psych/Mental Status: Mood NL Results/Procedures Lab Laboratory Tests 01/06/22 16:45: Glucometer 121H 01/06/22 21:32: Glucometer 135H 01/07/22 04:22: White Blood Count 7.2, Red Blood Count 4.72, Hemoglobin 13.9, Hematocrit 43, Mean Corpuscular Volume 90, Mean Corpuscular Hemoglobin 29, Mean Corpuscular Hemoglobin Concent 33, Red Cell Distribution Width 14.7H, Platelet Count 173, Mean Platelet Volume 10.5, Immature Granulocyte % (Auto) 1, Neutrophils (%) (Auto) 63, Lymphocytes (%) (Auto) 25, Monocytes (%) (Auto) 8, Eosinophils (%) (Auto) 3, Basophils (%) (Auto) 1, Neutrophils # (Auto) 4.6, Lymphocytes # (Auto) 1.8, Monocytes # (Auto) 0.6, Eosinophils # (Auto) 0.2, Basophils # (Auto) 0.1, Immature Granulocyte # (Auto) 0.1, Sodium Level 138, Potassium Level 4.0, Chloride Level 104, Carbon Dioxide Level 21, Anion Gap 13, Blood Urea Nitrogen 11, Creatinine 1.20, Estimat Glomerular Filtration Rate 73, BUN/Creatinine Ratio 9, Glucose Level 122H, Calcium Level 8.3L, Corrected Calcium 8.7, Phosphorus Level 3.2, Magnesium Level 2.1, Total Bilirubin 0.4, Aspartate Amino Transf (AST/SGOT) 23, Alanine Aminotransferase (ALT/SGPT) 24, Alkaline Phosphatase 64, Total Protein 5.9L, Albumin 3.5 01/07/22 05:29: Glucometer 128H 01/07/22 11:29: Glucometer 156H Microbiology 01/05/22 MRSA Screen - Final, Complete MRSA not isolated 01/05/22 Urine Culture - Preliminary, Resulted Slight Growth Present Assessment/Plan Assessment/Plan (1) Atrial fibrillation with RVR Status: Acute Assessment & Plan: s/p diltiazem drip, heart rate near 100 this morning on beta jem. Transfer to floor. Appreciate Cardiology recommendations. On apixaban. (2) Diabetes Status: Chronic Assessment & Plan: Sliding scale insulin Qualifiers: Qualified Codes: E11.69 - Type 2 diabetes mellitus with other specified complication (3) UTI (urinary tract infection) Status: Acute Assessment & Plan: Culture pending. Ceftriaxone. (4) Sepsis Status: Resolved Assessment & Plan: UTI and elevated lactic acid (now resolved), but no fever or leukocytosis. Tachycardic but with a fib, so unclear how much of a role sepsis playing. (5) Alcohol abuse Status: Acute Assessment & Plan: Alcohol withdrawal protocol (6) HTN (hypertension) Status: Acute (7) Obstructive sleep apnea Status: Chronic Assessment & Plan: CPAP (8) DVT prophylaxis Status: Acute Assessment & Plan: Apixaban BLANK ELIZABETH MD Jan 07, 2022 15:10
[2022-01-07 16:00] VITALS: BP 149/91
[2022-01-07 19:31] VITALS: BP 122/87
[2022-01-07] MEDS: FAMOTIDINE 20 MG (PEPCID) TABLET PO SCH (20:34)
[2022-01-07] MEDS: GABAPENTIN 600 MG (NEURONTIN) TAB PO SCH (20:34)
[2022-01-07] MEDS: rOPINIRole 5 MG TAB (REQUIP) PO SCH (20:34)
[2022-01-07] MEDS: BACLOFEN 10 MG (LIORESAL) TAB PO SCH (20:34)
[2022-01-07] MEDS ORDERED: FENOFIBRATE 134 MG (LOFIBRA) CAPSULE PO SCH (21:00)
[2022-01-07] MEDS ORDERED: TAMSULOSIN 0.4 MG (FLOMAX) CAP PO SCH (21:00)
[2022-01-07] MEDS ORDERED: NON-FORMULARY MEDICATION 1 EA EA (Fenofibrate Nanocrystallized (Fenofibrate) 145 MG) PO SCH (21:00)
[2022-01-07] MEDS: cefTRIAXone 1 GM/50 ML (PRE-MIX) IV SCH (21:47)
[2022-01-07 23:55] VITALS: BP 135/81
[2022-01-08] MEDS: RT-ALBUTEROL SULF 2.5 MG/3 ML PRE-MIX VIAL INH SCH (02:48)
[2022-01-08 03:49] VITALS: BP 132/85
[2022-01-08] MEDS: inSUlin ASPART (NovoLOG) 1 UNIT/0.01 ML (CHARGE PER UNIT) SC SCH ×2 (05:35→11:14)
[2022-01-08 05:48] LABS: BASOPHILS # (AUTO) 0.1 10^3/uL (0.0-0.1); BASOPHILS % (AUTO) 1 % (0-10); EOSINOPHILS # (AUTO) 0.3 10^3/uL (0.0-0.3); EOSINOPHILS % (AUTO) 4 % (0-10); HEMATOCRIT 45 % (40-54); HEMOGLOBIN 14.5 g/dL (13.3-17.7); LYMPHOCYTES # (AUTO) 1.9 10^3/uL (1.0-4.0); LYMPHOCYTES % (AUTO) 27 % (12-44); MEAN CORPUSCULAR HEMOGLOBIN 30 pg (25-34); MEAN CORPUSCULAR HGB CONC 33 g/dL (32-36); MEAN CORPUSCULAR VOLUME 91 fL (80-99); MEAN PLATELET VOLUME 10.5 fL (9.0-12.2); MONOCYTES # (AUTO) 0.6 10^3/uL (0.0-1.0); MONOCYTES % (AUTO) 9 % (0-12); NEUTROPHILS # (AUTO) 4.1 10^3/uL (1.8-7.8); NEUTROPHILS % (AUTO) 59 % (42-75); PLATELET COUNT 177 10^3/uL (130-400)
[2022-01-08] MEDS: MULTIVIT W/MINERALS TAB (THERAGRAN M) PO SCH (05:49)
[2022-01-08] MEDS: CATHETER FLUSH 10 ML SYR IVP SCH (05:49)
[2022-01-08] MEDS: THIAMINE 100 MG (VITAMIN B-1) TAB PO SCH (05:49)
[2022-01-08 06:04] LABS: ALBUMIN 3.6 GM/DL (3.2-4.5); BILIRUBIN,TOTAL 0.4 MG/DL (0.1-1.0); CALCIUM 8.7 MG/DL (8.5-10.1); CREATININE SERUM 1.1 MG/DL (0.60-1.30); POTASSIUM 4.2 MMOL/L (3.6-5.0); TOTAL PROTEIN 6.2 GM/DL (6.4-8.2)
[2022-01-08] MEDS ORDERED: APIX5TAB PO (06:48)
[2022-01-08] MEDS ORDERED: THIAMINE 100 MG (VITAMIN B-1) TAB PO SCH (07:00)
[2022-01-08 07:33] VITALS: BP 143/92
--- NOTE | 2022-01-08 08:33 | Cardiology Progress Note ---
Subjective Date Seen by Provider: Jan 08, 2022 Time Seen by Provider: 08:31 Subjective/Events-last exam Patient sitting up at bedside, denies any chest pain. Continues to complain of shortness of breath. Review of Systems General: No Chills, No Night Sweats, No Fatigue, No Malaise, No Appetite, No Other HEENT: No Head Aches, No Visual Changes, No Eye Pain, No Ear Pain, No Dysphasia, No Sinus Congestion, No Post Nasal Drip, No Sore Throat, No Other Pulmonary: No Dyspnea, No Cough, No Pleuritic Chest Pain, No Other Cardiovascular: No: Chest Pain, Palpitations, Orthopnea, Paroxysmal Noc. Dyspnea, Edema, Lt Headedness, Other Focused Exam Lactate Level 01/05/22 21:30: Lactic Acid Level 2.94*H 01/05/22 23:40: Lactic Acid Level 2.20*H 01/06/22 01:10: Time of Focused Exam: 22:10 Objective-Cardiology Exam Last Set of Vital Signs Vital Signs 01/08/22 01/08/22 02:48 11:09 Temp 36.0 Pulse 72 Resp 20 B/P (MAP) 135/89 (104) Pulse Ox 94 O2 Delivery Room Air O2 Flow Rate 24.00 I&O Intake and Output 01/08/22 00:00 Intake Total 3430 ml Output Total 2950 ml Balance 480 ml Intake Oral 2380 ml IV Total 1050 ml Output Urine Total 2950 ml # Voids 5 # Bowel Movements 2 General: Alert, No Acute Distress HEENT: Atraumatic, PERRLA Neck: Supple, No JVD, No Thyromegaly Lungs: Clear to Auscultation, Normal Air Movement Heart: Other (distant heart sounds, tachycardic, regular) Abdomen: Normal Bowel Sounds, Soft, No Tenderness, No Hepatosplenomegaly, No Masses Extremities: No Edema Skin: No Rashes, No Breakdown, No Significant Lesion Neuro: Normal Speech Psych/Mental Status: Mood NL Results Lab Laboratory Tests 01/08/22 05:25 A/P-Cardiology Admission Diagnosis Chest pain Palpitation Paroxysmal atrial fibrillation Coronary artery disease Assessment/Plan Chest pain, nonspecific etiology, history of chronic chest pain. Probably secondary to atrial fibrillation with rapid ventricular response. Paroxysmal atrial fibrillation, admitted with atrial fibrillation with rapid ventricular response, converted to sinus rhythm on Cardizem drip In and out of atrial fibrillation. Slightly tachycardic this morning. Toprol XL increased to 100mg daily. [id number] score 2 based on age and hypertension. Currently on Eliquis 5 mg twice daily 2D echo done on January 06, 2022, poor quality study, normal LV size with EF 55 to 60%, PA pressure 20 mmHg Coronary artery disease, cardiac catheterization done by Dr. Bauman in July 2017 showing moderate proximal disease in the ramus branch. There was no other focal disease. Hypertension, monitor blood pressure on Toprol. Morbid obesity, BMI 54, we discussed weight loss Tobaccoism, educated on smoking cessation Alcoholism, discussed avoiding alcohol, Alcohol level is low. Did not drink recently Anxiety. COPD/obesity hypoventilation system/obstructive sleep apnea, treated with CPAP Supervisory-Addendum Brief Supervisory Addendum Participated in pt care: history, MDM, physical Personally performed: exam, history, MDM Care discussed with: GILLIAN Results interpretation: Verified all documentation Notes: Patient was seen and evaluated with Ryan, examination performed, management plan was discussed, agree with the current scribed note, I made few changes to the note using Italic font Patient was seen at bedside, feeling better Having few episodes of paroxysmal atrial tachycardia, overall reporting improvement and tolerating current medication Okay for discharge and follow-up as an outpatient RYAN BERRY Jan 08, 2022 08:33 KELSEY GOMEZ MD Jan 08, 2022 11:26
[2022-01-08] MEDS: rOPINIRole 5 MG TAB (REQUIP) PO SCH ×2 (08:54→13:16)
[2022-01-08] MEDS: ASPIRIN E.C. 81 MG (ECOTRIN) TAB PO SCH (08:54)
[2022-01-08] MEDS: DULoxetine 30 MG (CYMBALTA) CAP PO SCH (08:54)
[2022-01-08] MEDS: MAGNESIUM 1 GM/100 ML IVPB 100 ML IV SCH (08:54)
[2022-01-08] MEDS: APIXABAN 5 MG (ELIQUIS) TABLET PO SCH (08:54)
[2022-01-08] MEDS: FAMOTIDINE 20 MG (PEPCID) TABLET PO SCH (08:55)
[2022-01-08] MEDS: GABAPENTIN 600 MG (NEURONTIN) TAB PO SCH ×2 (08:55→13:17)
[2022-01-08] MEDS: FOLIC ACID 1 MG TAB PO SCH (08:55)
[2022-01-08] MEDS: BACLOFEN 10 MG (LIORESAL) TAB PO SCH ×2 (08:56→13:17)
[2022-01-08] MEDS ORDERED: ARIPIPRAZOLE 30 MG PO SCH (09:00)
[2022-01-08] MEDS ORDERED: PANTOPRAZOLE 40 MG (PROTONIX) TAB PO SCH (09:00)
[2022-01-08] MEDS ORDERED: NON-FORMULARY MEDICATION 1 EA EA (Duloxetine HCl 120 MG) PO SCH (09:00)
[2022-01-08] MEDS: meTOprolol SUCCINATE 100 MG (TOPROL XL) TAB PO SCH (09:13)
[2022-01-08] MEDS ORDERED: MTP100TCR PO (11:08)
[2022-01-08 11:09] VITALS: BP 135/89
--- NOTE | 2022-01-08 11:10 | D/C HH Face to Face Order ---
D/C Face to Face Orders Instructions for Patient Patient Instructions/FollowUp: Follow up with primary provider within a week of discharge. Follow up with Cardiology as directed. Physician to follow Patient: [facility] Discharge Diet for Home: ADA Diet, Cardiac Diet Patient Data-Allergies,Ht & Wt Patient Allergies: Coded Allergies: No Known Drug Allergies (Unverified , 03/26/21) Height (Feet): 5 Height (Inches): 10.00 Weight (Pounds): 330 Weight (Ounces): 3.0 Home Health Need/Face to Face Date of Face to Face: Jan 08, 2022 Clinical Findings: Generalized weakness and fatigue I have seen Pt [id number]: Yes Discharged To: Home Diagnosis/Conditions: See problem list Problems/Diagnosis/Condition: (1) Atrial fibrillation with RVR (2) Diabetes (3) Obstructive sleep apnea (4) COPD (chronic obstructive pulmonary disease) (5) GERD (gastroesophageal reflux disease) (6) Hyperlipidemia (7) HTN (hypertension) (8) Morbid obesity Patient is Homebound due to: Shortness of breath/distress Homebound Status Due to the above stated illness, injury or surgical procedure (medical condition or diagnosis) and associated clinical findings, the patient is homebound because of his/her inability to leave home except with aid of a supportive device and/or person AND leaving the home requires a considerable and taxing effort or is medically contraindicated. Pt req the following assistanc: Aid of another person Home Health Nursing Orders Home Health Services Order: Nursing Services, Physical Therapy-Evaluate & Treat Home Health Infusion Therapy Line Start Date: Jan 05, 2022 Certify Stmt I certify that this patient is under my care and that I, a nurse practitioner or a physician; a recruitment and outreach assistant working with me, had a face to face encounter that - meets the physician face to face encounter requirements with this patient as dated. BLANK ELIZABETH MD Jan 08, 2022 11:10
--- NOTE | 2022-01-08 11:26 | Discharge Summary ---
Discharge Summary Hospital Course Problems/Diagnosis: (1) Atrial fibrillation with RVR Status: Acute Assessment & Plan: s/p diltiazem drip, heart rate managed with beta jem, Cardiology consulted. (2) Diabetes Status: Chronic Assessment & Plan: Sliding scale insulin used inpatient. Qualifiers: Qualified Codes: E11.69 - Type 2 diabetes mellitus with other specified complication (3) UTI (urinary tract infection) Status: Resolved Resolution Date/Time: 01/08/22 @ 11:29 Assessment & Plan: Received ceftriaxone inpatient, but culture showed staph epi, no antibiotics prescribed on discharge. (4) Sepsis Status: Resolved Resolution Date/Time: 01/07/22 @ 15:12 Assessment & Plan: Originally suspected UTI and elevated lactic acid (now resolved), but no fever or leukocytosis. Tachycardic but with a fib, so unclear how much of a role sepsis playing. (5) Alcohol abuse Status: Acute Assessment & Plan: Alcohol withdrawal protocol ordered, did not have clinically significant issues inpatient. (6) HTN (hypertension) Status: Acute (7) Obstructive sleep apnea Status: Chronic Assessment & Plan: CPAP (8) COPD (chronic obstructive pulmonary disease) Status: Chronic Assessment & Plan: Reported he did not have any inhalers at home but has had in past and requested albuterol inhaler which was prescribed on d/c. Hospital Course Date of Admission: Jan 05, 2022 at 22:00 Admission Diagnosis : Family Physician/Provider: Nathaniel Martinez MD Date of Discharge: 01/08/22 Discharge Diagnosis: See problem list Hospital Course: See problem list Labs and Pending Lab Test: Laboratory Tests 01/07/22 11:29: Glucometer 156H 01/07/22 16:20: Glucometer 132H 01/07/22 20:41: Glucometer 123H 01/08/22 05:25: White Blood Count 7.0, Red Blood Count 4.92, Hemoglobin 14.5, Hematocrit 45, Mean Corpuscular Volume 91, Mean Corpuscular Hemoglobin 30, Mean Corpuscular Hemoglobin Concent 33, Red Cell Distribution Width 15.0H, Platelet Count 177, Mean Platelet Volume 10.5, Immature Granulocyte % (Auto) 1, Neutrophils (%) (Auto) 59, Lymphocytes (%) (Auto) 27, Monocytes (%) (Auto) 9, Eosinophils (%) (Auto) 4, Basophils (%) (Auto) 1, Neutrophils # (Auto) 4.1, Lymphocytes # (Auto) 1.9, Monocytes # (Auto) 0.6, Eosinophils # (Auto) 0.3, Basophils # (Auto) 0.1, Immature Granulocyte # (Auto) 0.1, Sodium Level 138, Potassium Level 4.2, Chloride Level 107, Carbon Dioxide Level 20L, Anion Gap 11, Blood Urea Nitrogen 12, Creatinine 1.10, Estimat Glomerular Filtration Rate 81, BUN/Creatinine Ratio 11, Glucose Level 116H, Calcium Level 8.7, Corrected Calcium 9.0, Magnesium Le frantz 2.0, Total Bilirubin 0.4, Aspartate Amino Transf (AST/SGOT) 38H, Alanine Aminotransferase (ALT/SGPT) 29, Alkaline Phosphatase 60, Total Protein 6.2L, Albumin 3.6 01/08/22 05:26: Glucometer 118H 01/08/22 11:06: Glucometer 114H Microbiology 01/05/22 MRSA Screen - Final, Complete MRSA not isolated 01/05/22 Urine Culture - Final, Complete Staphylococcus epidermidis 01/05/22 Blood Culture - Preliminary, Resulted No growth Home Meds Active Metoprolol Succinate 100 Mg Tab.er.24h 100 Mg PO DAILY Eliquis (Apixaban) 5 Mg Tablet 5 Mg PO BID Reported Aspirin EC (Aspirin) 81 Mg Tablet.dr 81 Mg PO DAILY Flomax (Tamsulosin HCl) 0.4 Mg Cap 0.4 Mg PO HS Metformin HCl 1,000 Mg Tablet 1,000 Mg PO BID Potassium Chloride 20 Meq Tab.er.prt 40 Meq PO BID TAKES 2 (20MEQ) TABLETS Baclofen 10 Mg Tablet 10 Mg PO TID Gabapentin 600 Mg Tablet 600 Mg PO TID Duloxetine HCl 60 Mg Capsule.dr 120 Mg PO DAILY TAKES 2 (60MG) CAPSULES Tylenol Extra Strength (Acetaminophen) 500 Mg Tablet 1,000 Mg PO Q4H PRN Atorvastatin Calcium 40 Mg Tablet 40 Mg PO HS Famotidine 20 Mg Tablet 20 Mg PO BID Fenofibrate (Fenofibrate Nanocrystallized) 145 Mg Tablet 145 Mg PO HS Aripiprazole 30 Mg Tablet 30 Mg PO DAILY Ropinirole HCl 5 Mg Tablet 5 Mg PO TID Assessment/Pt DC Instructions Follow up with primary within a week and with Cardiology as directed. Discharge Diet: ADA Diet Activity as Tolerated: Yes Discharge Physical Examination Allergies: Coded Allergies: No Known Drug Allergies (Unverified , 03/26/21) General Appearance: No Apparent Distress Respiratory: Lungs Clear, Normal Breath Sounds Cardiovascular: Regular Rate, Rhythm, No Murmur Gastrointestinal: Normal Bowel Sounds, Non Tender Neurologic/Psychiatric: Alert, Normal Mood/Affect BLANK ELIZABETH MD Jan 08, 2022 11:26
[2022-01-08] MEDS ORDERED: RT-ALBUINH INH (11:27)
[2022-01-08 13:40] VITALS: BP 135/89
== END 2022-01-08 13:40 | disposition home health service (06) | DRG 308 ==
LOC: EDUNIT# 20:59 → ER 21:01 → ICU 22:00 → 4TH 01-07 15:41
PROVIDERS: ADMIT Internal Medicine; ATTEND Family Medicine
DX: I48.0 Paroxysmal atrial fibrillation (principal); A41.1 Sepsis due to other specified staphylococcus; E66.2 Morbid (severe) obesity with alveolar hypoventilation; Z68.43 Body mass index [BMI] 50.0-59.9, adult; N39.0 Urinary tract infection, site not specified; I25.10 Atherosclerotic heart disease of native coronary artery without angina pectoris; J44.9 Chronic obstructive pulmonary disease, unspecified; F17.210 Nicotine dependence, cigarettes, uncomplicated; I27.20 Pulmonary hypertension, unspecified; Z20.822 Contact with and (suspected) exposure to COVID-19; E11.40 Type 2 diabetes mellitus with diabetic neuropathy, unspecified; I10 Essential (primary) hypertension; F10.20 Alcohol dependence, uncomplicated; E78.00 Pure hypercholesterolemia, unspecified; N20.0 Calculus of kidney; M10.9 Gout, unspecified; Z91.199 Patient's noncompliance with other medical treatment and regimen due to unspecified reason; Z79.84 Long term (current) use of oral hypoglycemic drugs; Z83.3 Family history of diabetes mellitus
CPT/HCPCS: 36415; 71045; 80053; 80306; 80320; 81000; 82010; 82150; 82550; 82553; 82947; 83036; 83605; 83690; 83735; 83874; 83880; 84100; 84145; 84484; 85025; 85379; 85610; 85652; 85730; 86141; 87040; 87077; 87081; 87088; 87636; 93005; 93041; 93306; 94640; 94660

== ENCOUNTER 2022-01-09 01:03 | Emergency (ER) | payer MEDICAID ==
[~2022-01-09] VITALS: Ht 117.5 cm; Wt 163.0 kg
[~2022-01-09 01:03] MED LIST changes: +APIX5TAB PO; +BACL10TA PO; +METF-399 PO; +MTP100TCR PO; +RT-ALBUINH INH
--- NOTE | 2022-01-09 01:15 | ED Cardiac General ---
History of Present Illness General Chief Complaint: Chest Pain Stated Complaint: CHEST PAIN History of Present Illness Date Seen by Provider: Jan 09, 2022 Time Seen by Provider: 01:15 Initial Comments 51-year-old male with PMH of morbid obesity/DM 2/A. fib/[place]/CKD/COPD/GERD/HTN/active smoker was discharged from [facility] today for new onset A-Fib. In the evening, pt started developing chest discomfort and SOB while laying down, and overall just wasn't feeling well. . Denies fever and chills, palpitations, dizziness. Pt stated that he smoked today after he got home from the hospital. Allergies and Home Medications Allergies Coded Allergies: No Known Drug Allergies (Unverified , 03/26/21) Patient Home Medication List Home Medication List Reviewed: Yes Acetaminophen (Tylenol Extra Strength) 500 Mg Tablet, 1,000 MG PO Q4H PRN for PAIN-MILD (1-4), (Reported) Entered as Reported by: NEPTALI PUCKETT on 01/15/19 1059 Albuterol Sulfate (Ventolin Hfa) 1 Puff Puff, 2 PUFF INH Q4H Prescribed by: BLANK ELIZABETH on 01/08/22 1127 Apixaban (Eliquis) 5 Mg Tablet, 5 MG PO BID Prescribed by: BLANK ELIZABETH on 01/08/22 0648 Aripiprazole (Aripiprazole) 30 Mg Tablet, 30 MG PO DAILY, (Reported) Entered as Reported by: NEPTALI PUCKETT on 01/15/19 1059 Aspirin (Aspirin EC) 81 Mg Tablet., 81 MG PO DAILY, (Reported) Entered as Reported by: BALDEV DOWNS on 01/07/22 0915 Atorvastatin Calcium (Atorvastatin Calcium) 40 Mg Tablet, 40 MG PO HS, (Reported) Entered as Reported by: NEPTALI PUCKETT on 01/15/19 1059 Baclofen (Baclofen) 10 Mg Tablet, 10 MG PO TID, (Reported) Entered as Reported by: BALDEV DOWNS on 01/07/22 0915 Duloxetine HCl (Duloxetine HCl) 60 Mg Capsule.dr, 120 MG PO DAILY, (Reported) Entered as Reported by: KERI BULLOCK on 05/09/20 1004 Famotidine (Famotidine) 20 Mg Tablet, 20 MG PO BID, (Reported) Entered as Reported by: NEPTALI PUCKETT on 01/15/19 1059 Fenofibrate Nanocrystallized (Fenofibrate) 145 Mg Tablet, 145 MG PO HS, (Reported) Entered as Reported by: NEPTALI PUCKETT on 01/15/19 1059 Gabapentin (Gabapentin) 600 Mg Tablet, 600 MG PO TID, (Reported) Entered as Reported by: KERI BULLOCK on 05/09/20 1008 Metformin HCl (Metformin HCl) 1,000 Mg Tablet, 1,000 MG PO BID, (Reported) Entered as Reported by: BALDEV DOWNS on 01/07/22914 Metoprolol Succinate (Metoprolol Succinate) 100 Mg Tab.er.24h, 100 MG PO DAILY Prescribed by: BLANK ELIZABETH on 01/08/22 1108 Potassium Chloride (Potassium Chloride) 20 Meq Tab.er.prt, 40 MEQ PO BID, (Rep orted) Entered as Reported by: BALDEV DOWNS on 01/07/22914 Ropinirole HCl (Ropinirole HCl) 5 Mg Tablet, 5 MG PO TID, (Reported) Entered as Reported by: SHANNAN DIAZ on 05/22/18 0604 Tamsulosin HCl (Flomax) 0.4 Mg Cap, 0.4 MG PO HS, (Reported) Entered as Reported by: BALDEV DOWNS on 01/07/22914 Discontinued Medications Allopurinol (Allopurinol) 100 Mg Tablet, 100 MG PO DAILY, (Reported) Discontinued Reason: No Longer Taking Entered as Reported by: PASCUAL OLMOS on 10/03/17 1729 Baclofen (Baclofen) 20 Mg Tablet, 20 MG PO BID PRN for MUSCLE SPASMS, (Reported) Discontinued Reason: No Longer Taking Entered as Reported by: SUMANTH PACE on 10/22/20 0249 Duloxetine HCl (Duloxetine HCl) 30 Mg Capsule.dr, 30 MG PO DAILY, (Reported) Discontinued Reason: No Longer Taking Entered as Reported by: KERI BULLOCK on 05/09/20 1004 Ketorolac Tromethamine (Ketorolac Tromethamine) 10 Mg Tablet, 10 MG PO Q6H Discontinued Reason: No Longer Taking Prescribed by: VIJAY GROVES on 03/27/21 0853 Lisinopril (Lisinopril) 10 Mg Tablet, 10 MG PO DAILY, (Reported) Discontinued Reason: No Longer Taking Entered as Reported by: KERI BULLOCK on 05/09/20 1004 Mesalamine (Mesalamine) 1.2 Gm Tablet.dr, 4.8 GM PO DAILY, (Reported) Discontinued Reason: No Longer Taking Entered as Reported by: JUNE ALANIZ on 07/04/17 1110 Metoprolol Tartrate (Metoprolol Tartrate) 25 Mg Tablet, 25 MG PO BID, (Reported) Entered as Reported by: KERI BULLOCK on 05/09/20 1004 Multivitamin (Multi-Vitamin Daily) 1 Each Tablet, 1 TAB PO DAILY, (Reported) Discontinued Reason: No Longer Taking Entered as Reported by: JUNE ALANIZ on 07/04/17 1112 Nifedipine (Nifedipine ER) 60 Mg Tablet.er, 60 MG PO DAILY, (Reported) Discontinued Reason: No Longer Taking Entered as Reported by: KERI BULLOCK on 05/09/20 1004 Nitrofurantoin Macrocrystal (Nitrofurantoin) 100 Mg Capsule, 100 MG PO BID Discontinued Reason: No Longer Taking Prescribed by: STAN CARREON on 05/13/21 1956 Nitrofurantoin Monohyd/M-Cryst (Macrobid 100 mg Capsule) 100 Mg Capsule, 1 TAB PO BID WITH MEALS Discontinued Reason: No Longer Taking Prescribed by: VIJAY GROVES on 03/27/21 0853 [place]-3 Acid Ethyl Esters ([place]-3 Acid Ethyl Esters) 1 Gm Capsule, 2 GM PO BID, (Reported) Discontinued Reason: No Longer Taking Entered as Reported by: NEPTALI PUCKETT on 01/15/19 1059 Omeprazole (Omeprazole) 40 Mg Capsule.dr, 40 MG PO DAILY, (Reported) Discontinued Reason: No Longer Taking Entered as Reported by: KERI BULLOCK on 05/09/20 1004 Potassium Chloride (Klor-Con M20) 20 Meq Tab.er.prt, 40 MEQ PO BID, (Reported) Discontinued Reason: No Longer Taking Entered as Reported by: KERI BULLOCK on 05/09/20 1004 Sodium Bicarbonate (Sodium Bicarbonate) 650 Mg Tablet, 650 MG PO BID, (Reported) Discontinued Reason: No Longer Taking Entered as Reported by: KERI BULLOCK on 05/09/20 1012 Tamsulosin HCl (Flomax) 0.4 Mg Cap, 0.4 MG PO DAILY Discontinued Reason: No Longer Taking Prescribed by: VIJAY GROVES on 03/27/21 0853 Review of Systems Review of Systems Constitutional: no symptoms reported EENTM: No Symptoms Reported Respiratory: Shortness of Air Cardiovascular: Chest Pain Gastrointestinal: No Symptoms Reported Genitourinary: No Symptoms Reported Musculoskeletal: no symptoms reported Skin: no symptoms reported Psychiatric/Neurological: No Symptoms Reported Endocrine: No Symptoms Reported Hematologic/Lymphatic: No Symptoms Reported Past Zijwpvo-Vrphqh-Dcwcvb Hx Immunizations Up To Date Tetanus Booster (TDap): Less than 5yrs PED Vaccines UTD: No First/Initial COVID19 Vaccinat: JUNE 01, 2020 Second COVID19 Vaccination Ronald: JUNE 15, 2020 Third COVID19 Vaccination Date: JUNE 01, 2020 Seasonal Allergies Seasonal Allergies: No Past Medical History Surgery/Hospitalization HX: LEFT URETERAL STENTBACK SURGERY 2003 PMH: AKF, ENTERCOLITIS, SEPSIS, DEPRESSION, SLEEP APNEA, UTI, HTN, PULMONARY HTN, COPD, DM, UTI, GERD, BPH, Surgeries: Yes Gallbladder, Orthopedic, Renal Respiratory: Yes COPD Currently Using CPAP: Yes Currently Using BIPAP: No Cardiac: Yes (PULMONARY HTN) High Cholesterol, Hypertension Neurological: Yes Neuropathy Reproductive Disorders: No Sexually Transmitted Disease: No HIV/AIDS: No Genitourinary: Yes (URETERAL STENTS) Kidney Infection, Prostate Problems, Kidney Stones, Renal Failure Gastrointestinal: Yes (S/P EVELIO) Colitis, Gastroesophageal Reflux, Gall Bladder Disease Musculoskeletal: Yes (BACK SX 2003;RESTLESS LEG SYNDROME) Degenerate Disk Disease, Arthritis, Chronic Back Pain, Gout Endocrine: Yes (MORBID OBESITY; ORAL MEDICATION FOR DIABETES) Diabetes, Non-Insulin dep HEENT: Yes Cancer: No Psychosocial: Yes (BIPOLAR, POLYSUBSTANCE ABUSE) Anxiety, Bipolar, Depression Integumentary: No Blood Disorders: No Adverse Reaction/Blood Tranf: No Family Medical History Completed stroke DVT 19 MOTHER, , Onset:Unknown Diabetes mellitus 19 MOTHER, , Onset:Unknown G8 BROTHER, Onset:Unknown FH: gastric ulcer 19 FATHER, Onset:Unknown DVT/PE, Diabetes, GI Disease SOCIAL HISTORY: -SMOKES AT LEAST 1 PPD -ETOH--HARD LIQUOR SEVERAL TIMES A WEEK -DRUGS--EXTENSIVE HISTORY OF DRUG USE, INCLUDING "SPEED" , COCAINE, MARIJUANA. HE DENIES IV DRUG USE, BUT HE HAS A TATTOO OF A SYRINGE AND NEEDLE IN HIS RIGHT AC SPACE. PAST SURGICAL HISTORY: -CHOLECYSTECTOMY -BACK SURGERY 2003 -URETERAL STENTS -LITHOTRIPSY 03/27/[address] GONZALES -CARDIAC CATH 05/09/[address] ALMEIDA: CONCLUSIONS: 1. No angiographically significant coronary artery disease. 2. Elevated left ventricular end-diastolic pressure. Physical Exam Vital Signs Vital Signs - First Documented 01/09/22 01/09/22 01:16 01:41 Temp 36.7 Pulse 99 Resp 20 B/P (MAP) 175/119 (137) Pulse Ox 98 O2 Delivery Room Air Capillary Refill : Height, Weight, BMI Height: 5'10.00" Weight: 330lbs. 3.0oz. 149.909146mq; 54.69 BMI Method:Stated General Appearance: No Apparent Distress, WD/WN HEENT: PERRL/EOMI, TMs Normal, Normal ENT Inspection, Pharyngeal Erythema, Tonsillar Enlargement Neck: Full Range of Motion, Normal Inspection, Non Tender, Supple Respiratory: Lungs Clear, Normal Breath Sounds, No Accessory Muscle Use, No Respiratory Distress Cardiovascular: Regular Rate, Rhythm Gastrointestinal: Normal Bowel Sounds, Non Tender, Soft Neurologic/Psychiatric: Alert, Oriented x3, Normal Mood/Affect Skin: Normal Color Progress/Results/Core Measures Results/Orders Lab Results Laboratory Tests Test 01/09/22 01:15 01/09/22 01:54 01/09/22 03:00 Range/Units White Blood Count 8.5 4.3-11.0 10^3/uL Red Blood Count 5.19 4.30-5.52 10^6/uL Hemoglobin 15.2 13.3-17.7 g/dL Hematocrit 47 40-54 % Mean Corpuscular Volume 90 80-99 fL Mean Corpuscular Hemoglobin 29 25-34 pg Mean Corpuscular Hemoglobin Concent 33 32-36 g/dL Red Cell Distribution Width 14.6 H 10.0-14.5 % Platelet Count 187 130-400 10^3/uL Mean Platelet Volume 10.0 9.0-12.2 fL Immature Granulocyte % (Auto) 1 % Neutrophils (%) (Auto) 60 42-75 % Lymphocytes (%) (Auto) 27 12-44 % Monocytes (%) (Auto) 8 0-12 % Eosinophils (%) (Auto) 4 0-10 % Basophils (%) (Auto) 1 0-10 % Neutrophils # (Auto) 5.1 1.8-7.8 10^3/uL Lymphocytes # (Auto) 2.3 1.0-4.0 10^3/uL Monocytes # (Auto) 0.7 0.0-1.0 10^3/uL Eosinophils # (Auto) 0.3 0.0-0.3 10^3/uL Basophils # (Auto) 0.1 0.0-0.1 10^3/uL Immature Granulocyte # (Auto) 0.1 0.0-0.1 10^3/uL Prothrombin Time 12.8 12.2-14.7 SEC INR Comment 0.9 0.8-1.4 Activated Partial Thromboplast Time 33 24-35 SEC D-Dimer 0.32 0.00-0.49 UG/ML Sodium Level 137 135-145 MMOL/L Potassium Level 3.9 3.6-5.0 MMOL/L Chloride Level 105 98-107 MMOL/L Carbon Dioxide Level 20 L 21-32 MMOL/L Anion Gap 12 5-14 MMOL/L Blood Urea Nitrogen 14 7-18 MG/DL Creatinine 1.22 0.60-1.30 MG/DL Estimat Glomerular Filtration Rate 71 BUN/Creatinine Ratio 11 Glucose Level 153 H 70-105 MG/DL Calcium Level 9.2 8.5-10.1 MG/DL Corrected Calcium 9.3 8.5-10.1 MG/DL Magnesium Level 1.9 1.6-2.4 MG/DL Total Bilirubin 0.4 0.1-1.0 MG/DL Aspartate Amino Transf (AST/SGOT) 41 H 5-34 U/L Alanine Aminotransferase (ALT/SGPT) 39 0-55 U/L Alkaline Phosphatase 81 40-136 U/L Troponin I < 0.028 < 0.028 <0.028 NG/ML B-Type Natriuretic Peptide 41.1 <100.0 PG/ML Total Protein 6.7 6.4-8.2 GM/DL Albumin 3.9 3.2-4.5 GM/DL Urine Color YELLOW Urine Clarity SL CLOUDY Urine pH 6.0 5-9 Urine Specific [place] >=1.030 1.016-1.022 Urine Protein 2+ H NEGATIVE Urine Glucose (UA) NEGATIVE NEGATIVE Urine Ketones NEGATIVE NEGATIVE Urine Nitrite NEGATIVE NEGATIVE Urine Bilirubin NEGATIVE NEGATIVE Urine Urobilinogen 0.2 < = 1.0 MG/DL Urine Leukocyte Esterase NEGATIVE NEGATIVE Urine RBC (Auto) 3+ H NEGATIVE Urine RBC >100 H /HPF Urine WBC 0-2 /HPF Urine Squamous Epithelial Cells 2-5 /HPF Urine Crystals NONE /LPF Urine Bacteria TRACE /HPF Urine Casts PRESENT /LPF Urine Hyaline Casts 0-2 H /LPF Urine Mucus SMALL H /LPF Urine Culture Indicated NO Urine Opiates Screen NEGATIVE NEGATIVE Urine Oxycodone Screen POSITIVE H NEGATIVE Urine Methadone Screen NEGATIVE NEGATIVE Urine Propoxyphene Screen NEGATIVE NEGATIVE Urine Barbiturates Screen NEGATIVE NEGATIVE Ur Tricyclic Antidepressants Screen NEGATIVE NEGATIVE Urine Phencyclidine Screen NEGATIVE NEGATIVE Urine Amphetamines Screen NEGATIVE NEGATIVE Urine Methamphetamines Screen NEGATIVE NEGATIVE Urine Benzodiazepines Screen NEGATIVE NEGATIVE Urine Cocaine Screen NEGATIVE NEGATIVE Urine Cannabinoids Screen NEGATIVE NEGATIVE My Orders Orders - LINDSAY SOLO MD Ekg Tracing (01/09/22 01:12) Bnp [place] (01/09/22 01:13) Cbc With Automated Diff (01/09/22 01:13) Comprehensive Metabolic Panel (01/09/22 01:13) Fibrin Degradation Products (01/09/22 01:13) Drug Screen Stat (Urine) (01/09/22 01:13) Magnesium (01/09/22 01:13) Protime With Inr (01/09/22 01:13) Partial Thromboplastin Time (01/09/22 01:13) Ua Culture If Indicated (01/09/22 01:13) Troponin I [place] (01/09/22 01:13) Chest 1 View, Ap/Pa Only (01/09/22 01:14) Monitor-Rhythm Ecg Trace Only (01/09/22 01:24) Ed Iv/Invasive Line Start (01/09/22 01:24) Aspirin Chewable Tablet (Baby Aspirin Ch (01/09/22 01:30) Albuterol/Ipra Inhalation Soln (Duoneb I (01/09/22 01:30) Methylprednisolone Sod Succ (Solu-Medrol (01/09/22 01:25) Svn Small Volume Nebulizer (01/09/22 01:25) Troponin I [place] (01/09/22 02:45) Ekg Tracing (01/09/22 02:45) Albuterol/Ipra Inhalation Soln (Duoneb I (01/09/22 03:00) Svn Small Volume Nebulizer (01/09/22 02:50) Medications Given in ED Current Medications Medications Dose Ordered Sig/Saba Route Start Time Stop Time Status Last Admin Dose Admin Albuterol/ Ipratropium 3 ml ONCE ONCE INH 01/09/22 01:30 01/09/22 01:31 DC 01/09/22 01:41 3 ML Albuterol/ Ipratropium 3 ml ONCE ONCE INH 01/09/22 03:00 01/09/22 03:01 DC 01/09/22 02:57 3 ML Aspirin 324 mg ONCE ONCE PO 01/09/22 01:30 01/09/22 01:31 DC 01/09/22 01:32 324 MG Vital Signs/I&O 01/09/22 01/09/22 01/09/22 01:16 01:41 02:58 Temp 36.7 Pulse 99 Resp 20 B/P (MAP) 175/119 (137) Pulse Ox 98 96 O2 Delivery Room Air Room Air Room Air Progress Progress Note : Progress Note 1. ACUTE COPD EXACERBATION ACS RULE OUT: - CXR: - D-dimer:normal - CBC/ CMP: unremarkable - EKG/ Troponin: non-ischemic - ASA 324mg STAT - Duo Neb STAT x2/ Solumedrol 125mg iv STAT - Pt was much improved with treatment - Follow up with PCP and Cardiology. Pt has an appointment alrady scheduled with them. Advised to keep appointments. - Prednisone prescriotion: 60mg daily for 3 days. Continue using inhaler as prescribed by PCP -The patient was seen in the ED, and treated appropriately to presentation at a specific point in time. Patient is informed that there is a possibility that disease and illness can evolve and change in acuity rapidly or slowly after patient is discharged from the ER. Precautionary advice given to the patient for immediate return to ER if symptoms worsen or do not resolve, and to seek emergency care sooner rather than later. Pt also advised on the importance of PCP follow up and compliance with management and follow up plan with PCP and/or specialist, as this is part of the management plan. Pt verbally expressed understanding. Departure Impression Primary Impression: Acute exacerbation of chronic obstructive pulmonary disease (COPD) Additional Impression: Ruled out for myocardial infarction Disposition: HOME, SELF-CARE Condition: Improved Departure-Patient Inst. Referrals: ESTELLE GAR MD (PCP/Family) Primary Care Physician Patient Instructions: Exacerbation of COPD (DC), COPD Diet, Oral Steroid Medicines, Risk Factors for COPD Add. Discharge Instructions: - Follow up with PCP and Cardiology. Pt has an appointment already scheduled with them. Advised to keep appointments. - Prednisone prescriotion: 60mg daily for 3 days. Continue using inhaler as prescribed by PCP All discharge instructions reviewed with patient and/or family. Voiced understanding. LINDSAY SOLO MD Jan 09, 2022 01:15
[2022-01-09 01:16] VITALS: BP 175/119
[2022-01-09 01:25] LABS: BASOPHILS # (AUTO) 0.1 10^3/uL (0.0-0.1); BASOPHILS % (AUTO) 1 % (0-10); EOSINOPHILS # (AUTO) 0.3 10^3/uL (0.0-0.3); EOSINOPHILS % (AUTO) 4 % (0-10); HEMATOCRIT 47 % (40-54); HEMOGLOBIN 15.2 g/dL (13.3-17.7); LYMPHOCYTES # (AUTO) 2.3 10^3/uL (1.0-4.0); LYMPHOCYTES % (AUTO) 27 % (12-44); MEAN CORPUSCULAR HEMOGLOBIN 29 pg (25-34); MEAN CORPUSCULAR HGB CONC 33 g/dL (32-36); MEAN CORPUSCULAR VOLUME 90 fL (80-99); MONOCYTES # (AUTO) 0.7 10^3/uL (0.0-1.0); MONOCYTES % (AUTO) 8 % (0-12); NEUTROPHILS # (AUTO) 5.1 10^3/uL (1.8-7.8); NEUTROPHILS % (AUTO) 60 % (42-75); PLATELET COUNT 187 10^3/uL (130-400); WHITE BLOOD COUNT 8.5 10^3/uL (4.3-11.0)
[2022-01-09] MEDS ORDERED: methylPREDNISolone 125 MG (Solu-MEDROL) VIAL IV STA (01:25)
[2022-01-09] MEDS ORDERED: RT-ALBUTEROL/IPRATROPIUM 3 ML (DUONEB) VIAL INH ONE ×2 (01:30→03:00)
[2022-01-09] MEDS ORDERED: ASPIRIN 81 MG CHEW (CHILDREN'S ASA) PO ONE (01:30)
[2022-01-09 01:34] LABS: ALBUMIN 3.9 GM/DL (3.2-4.5)
[2022-01-09 01:35] LABS: CHLORIDE 105 MMOL/L (98-107); POTASSIUM 3.9 MMOL/L (3.6-5.0); SODIUM 137 MMOL/L (135-145)
[2022-01-09 01:36] LABS: CALCIUM 9.2 MG/DL (8.5-10.1); FIBRIN DEGRADATION PRODUCTS 0.32 UG/ML (0.00-0.49); INR 0.9 (0.8-1.4); PROTHROMBIN TIME PATIENT 12.8 SEC (12.2-14.7)
[2022-01-09 01:37] LABS: GLUCOSE 153 MG/DL (70-105); TOTAL PROTEIN 6.7 GM/DL (6.4-8.2)
[2022-01-09 01:38] LABS: CARBON DIOXIDE 20 MMOL/L (21-32)
[2022-01-09 01:39] LABS: BILIRUBIN,TOTAL 0.4 MG/DL (0.1-1.0)
[2022-01-09 01:40] LABS: ALKALINE PHOSPHATASE 81 U/L (40-136)
[2022-01-09 01:41] LABS: CREATININE SERUM 1.22 MG/DL (0.60-1.30); GFR ESTIMATED 71
[2022-01-09 01:42] LABS: BUN/CREATININE RATIO 11
[2022-01-09 01:43] LABS: ALANINE AMINOTRANSFERASE 39 U/L (0-55); MAGNESIUM 1.9 MG/DL (1.6-2.4)
[2022-01-09 02:02] LABS: BILIRUBIN,URINE NEGATIVE (NEGATIVE); CLARITY,URINE SL CLOUDY; COLOR,URINE YELLOW; GLUCOSE, URINE (UA) NEGATIVE (NEGATIVE); KETONES,URINE NEGATIVE (NEGATIVE); LEUKOCYTE ESTERASE ,URINE NEGATIVE (NEGATIVE); NITRITE,URINE NEGATIVE (NEGATIVE); PROTEIN,URINE 2+ (NEGATIVE)
[2022-01-09 02:22] LABS: AMPHETAMINE SCREEN, URINE NEGATIVE (NEGATIVE); BARBITURATE SCREEN URINE NEGATIVE (NEGATIVE); BENZODIAZEPINES SCREEN URINE NEGATIVE (NEGATIVE); CANNABINOID SCREEN, URINE NEGATIVE (NEGATIVE); COCAINE SCREEN URINE NEGATIVE (NEGATIVE); METHADONE STAT NEGATIVE (NEGATIVE); OPIATE SCREEN URINE NEGATIVE (NEGATIVE); OXYCODONE STAT POSITIVE (NEGATIVE); PROPOXYPHENE STAT NEGATIVE (NEGATIVE); TRICYCLIC ANTIDEPRESSANTS SCRE NEGATIVE (NEGATIVE)
[2022-01-09 02:23] LABS: BACTERIA,URINE TRACE /HPF; HYALINE CASTS, URINE 0-2 /LPF; RBC,URINE >100 /HPF; WBC,URINE 0-2 /HPF
--- NOTE | 2022-01-09 08:51 | Diagnostic Imaging Report ---
EXAMINATION: Chest 1 view HISTORY: chest pain COMPARISON: FINDINGS: Heart size and pulmonary vasculature are normal. The lungs are clear without consolidation, pleural effusion, or pneumothorax. The osseous structures are intact. IMPRESSION: 1. No acute radiographic abnormality in the chest. Dictated by: Dictated on workstation # [id number]
== END 2022-01-09 04:30 | disposition home or self-care (01) ==
LOC: EDUNIT# 01:03 → ER 01:04
DX: J44.1 Chronic obstructive pulmonary disease with (acute) exacerbation (principal); G47.33 Obstructive sleep apnea (adult) (pediatric); E66.01 Morbid (severe) obesity due to excess calories; F17.200 Nicotine dependence, unspecified, uncomplicated; Z68.43 Body mass index [BMI] 50.0-59.9, adult; Z99.89 Dependence on other enabling machines and devices
CPT/HCPCS: 36415; 71045; 80053; 80306; 81000; 83735; 83880; 84484; 85025; 85379; 85610; 85730; 93005; 93041; 94640

== ENCOUNTER 2022-01-19 22:30 | Emergency (ER) | payer MEDICAID ==
[~2022-01-19] VITALS: Ht 177.8 cm; Wt 165.6 kg
[2022-01-19 22:49] LABS: BASOPHILS # (AUTO) 0.1 10^3/uL (0.0-0.1); BASOPHILS % (AUTO) 1 % (0-10); EOSINOPHILS # (AUTO) 0.3 10^3/uL (0.0-0.3); EOSINOPHILS % (AUTO) 3 % (0-10); HEMATOCRIT 47 % (40-54); HEMOGLOBIN 15.8 g/dL (13.3-17.7); LYMPHOCYTES # (AUTO) 2.5 10^3/uL (1.0-4.0); LYMPHOCYTES % (AUTO) 27 % (12-44); MEAN CORPUSCULAR HEMOGLOBIN 30 pg (25-34); MEAN CORPUSCULAR HGB CONC 34 g/dL (32-36); MEAN CORPUSCULAR VOLUME 89 fL (80-99); MEAN PLATELET VOLUME 10.3 fL (9.0-12.2); MONOCYTES # (AUTO) 0.8 10^3/uL (0.0-1.0); MONOCYTES % (AUTO) 8 % (0-12); NEUTROPHILS # (AUTO) 5.4 10^3/uL (1.8-7.8); NEUTROPHILS % (AUTO) 58 % (42-75); PLATELET COUNT 200 10^3/uL (130-400); WHITE BLOOD COUNT 9.3 10^3/uL (4.3-11.0)
--- NOTE | 2022-01-19 22:50 | ED Cardiac General ---
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 Pt had 324 ASA en route. Pt also reports blood in stool starting yesterday. Source: patient Exam Limitations: no limitations History of Present Illness Date Seen by Provider: Jan 19, 2022 Time Seen by Provider: 22:30 Initial Comments 51-year-old male presents emerged part today for chest pain. He arrives via EMS tells me he is got a burning sensation in his right anterior chest without radiation. Aggravated by pushing on the area. No alleviating factors. He has had similar pains in the past with A. fib. It is mild to moderate. He was given aspirin in route via EMS. He tells me he had a heart cath and a stress t est about a year ago which was negative. He has no stents or cardiac history outside of atrial fibrillation. Does have COPD, has chronic shortness of breath and cough which are unchanged. No recent fevers or chills nausea or vomiting. No abdominal pain. 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 Allergies and Home Medications Allergies Coded Allergies: No Known Drug Allergies (Unverified , 03/26/21) Patient Home Medication List Home Medication List Reviewed: Yes Acetaminophen (Tylenol Extra Strength) 500 Mg Tablet, 1,000 MG PO Q4H PRN for PAIN-MILD (1-4), (Reported) Entered as Reported by: NEPTALI PUCKETT on 01/15/19 1059 Albuterol Sulfate (Ventolin Hfa) 1 Puff Puff, 2 PUFF INH Q4H Prescribed by: BLANK ELIZABETH on 01/08/22 1127 Apixaban (Eliquis) 5 Mg Tablet, 5 MG PO BID Prescribed by: BLANK ELIZABETH on 01/08/22 0648 Aripiprazole (Aripiprazole) 30 Mg Tablet, 30 MG PO DAILY, (Reported) Entered as Reported by: NEPTALI PUCKETT on 01/15/19 1059 Aspirin (Aspirin EC) 81 Mg Tablet.dr, 81 MG PO DAILY, (Reported) Entered as Reported by: BALDEV DOWNS on 01/07/22 0915 Atorvastatin Calcium (Atorvastatin Calcium) 40 Mg Tablet, 40 MG PO HS, (Reported) Entered as Reported by: NEPTALI PUCKETT on 01/15/19 1059 Baclofen (Baclofen) 10 Mg Tablet, 10 MG PO TID, (Reported) Entered as Reported by: BALDEV DOWNS on 01/07/22914 Duloxetine HCl (Duloxetine HCl) 60 Mg Capsule.dr, 120 MG PO DAILY, (Reported) Entered as Reported by: KERI BULLOCK on 05/09/20 1004 Famotidine (Famotidine) 20 Mg Tablet, 20 MG PO BID, (Reported) Entered as Reported by: NEPTALI PUCKETT on 01/15/19 1059 Fenofibrate Nanocrystallized (Fenofibrate) 145 Mg Tablet, 145 MG PO HS, (Reported) Entered as Reported by: NEPTALI PUCKETT on 01/15/19 105 Gabapentin (Gabapentin) 600 Mg Tablet, 600 MG PO TID, (Reported) Entered as Reported by: KERI BULLOCK on 05/09/20 100 Metformin HCl (Metformin HCl) 1,000 Mg Tablet, 1,000 MG PO BID, (Reported) Entered as Reported by: BALDEV DOWNS on 01/07/22914 Metoprolol Succinate (Metoprolol Succinate) 100 Mg Tab.er.24h, 100 MG PO DAILY Prescribed by: BLANK ELIZABETH on 01/08/22 110 Potassium Chloride (Potassium Chloride) 20 Meq Tab.er.prt, 40 MEQ PO BID, (Reported) Entered as Reported by: BALDEV DOWNS on 01/07/22914 Ropinirole HCl (Ropinirole HCl) 5 Mg Tablet, 5 MG PO TID, (Reported) Entered as Reported by: SHANNAN DIAZ on 05/22/18 0604 Tamsulosin HCl (Flomax) 0.4 Mg Cap, 0.4 MG PO HS, (Reported) Entered as Reported by: BALDEV DOWNS on 01/07/22914 Review of Systems Review of Systems Constitutional: no symptoms reported EENTM: No Symptoms Reported Respiratory: No Symptoms Reported Cardiovascular: Chest Pain Gastrointestinal: No Symptoms Reported Genitourinary: No Symptoms Reported Musculoskeletal: no symptoms reported Skin: no symptoms reported Psychiatric/Neurological: No Symptoms Reported Endocrine: No Symptoms Reported Hematologic/Lymphatic: No Symptoms Reported Past Hnwetoc-Stewjy-Qxwhtb Hx Patient Social History Tobacco Use?: Yes Tobacco type used: Cigarettes Smoking Status: Current Everyday Smoker Use of E-Cig and/or Vaping dev: No Substance use?: No Alcohol Use?: Yes Alcohol Frequency: Rarely Pt feels they are or have been: No Immunizations Up To Date Tetanus Booster (TDap): Less than 5yrs PED Vaccines UTD: No Influenza Vaccine Up-to-Date: Yes; Up-to-Date First/Initial COVID19 Vaccinat: JUNE 01, 2020 Second COVID19 Vaccination Ronald: JUNE 15, 2020 Third COVID19 Vaccination Date: JUNE 01, 2020 Seasonal Allergies Seasonal Allergies: No Past Medical History Surgery/Hospitalization HX: LEFT URETERAL STENTBACK SURGERY 2003 PMH: AKF, ENTERCOLITIS, SEPSIS, DEPRESSION, SLEEP APNEA, UTI, HTN, PULMONARY HTN, COPD, DM, UTI, GERD, BPH, Surgeries: Yes Gallbladder, Orthopedic, Renal Respiratory: Yes COPD Currently Using CPAP: Yes Currently Using BIPAP: No Cardiac: Yes (PULMONARY HTN) High Cholesterol, Hypertension Neurological: Yes Neuropathy Reproductive Disorders: No Sexually Transmitted Disease: No HIV/AIDS: No Genitourinary: Yes (URETERAL STENTS) Kidney Infection, Prostate Problems, Kidney Stones, Renal Failure Gastrointestinal: Yes (S/P EVELIO) Colitis, Gastroesophageal Reflux, Gall Bladder Disease Musculoskeletal: Yes (BACK SX 2003;RESTLESS LEG SYNDROME) Degenerate Disk Disease, Arthritis, Chronic Back Pain, Gout Endocrine: Yes (MORBID OBESITY; ORAL MEDICATION FOR DIABETES) Diabetes, Non-Insulin dep HEENT: Yes Cancer: No Psychosocial: Yes (BIPOLAR, POLYSUBSTANCE ABUSE) Anxiety, Bipolar, Depression Integumentary: No Blood Disorders: No Adverse Reaction/Blood Tranf: No Family Medical History Reviewed Nursing Family Hx Completed stroke DVT 19 MOTHER, , Onset:Unknown Diabetes mellitus 19 MOTHER, , Onset:Unknown G8 BROTHER, Onset:Unknown FH: gastric ulcer 19 FATHER, Onset:Unknown No Pertinent Family Hx, DVT/PE, Diabetes, GI Disease SOCIAL HISTORY: -SMOKES AT LEAST 1 PPD -ETOH--HARD LIQUOR SEVERAL TIMES A WEEK -DRUGS--EXTENSIVE HISTORY OF DRUG USE, INCLUDING "SPEED" , COCAINE, MARIJUANA. HE DENIES IV DRUG USE, BUT HE HAS A TATTOO OF A SYRINGE AND NEEDLE IN HIS RIGHT AC SPACE. PAST SURGICAL HISTORY: -CHOLECYSTECTOMY -BACK SURGERY 2003 -URETERAL STENTS -LITHOTRIPSY 03/27/[address] GONZALES -CARDIAC CATH 05/09/[address] ALMEIDA: CONCLUSIONS: 1. No angiographically significant coronary artery disease. 2. Elevated left ventricular end-diastolic pressure. Physical Exam Vital Signs Vital Signs - First Documented 01/19/22 22:31 Temp 36.8 Pulse 110 Resp 24 B/P (MAP) 141/85 (103) Pulse Ox 95 O2 Delivery Room Air Capillary Refill : Height, Weight, BMI Height: 5'10.00" Weight: 330lbs. 3.0oz. 149.197753ne; 52.00 BMI Method:Stated General Appearance: No Apparent Distress, WD/WN HEENT: PERRL/EOMI, Normal ENT Inspection, Pharynx Normal Neck: Normal Inspection Respiratory: Lungs Clear, Normal Breath Sounds, No Accessory Muscle Use, No Respiratory Distress, Other (Tenderness palpation right anterior chest wall with voluntary guarding. No crepitus or deformity. Equal breath sounds bilaterally.) Cardiovascular: Regular Rate, Rhythm, No Edema, No Gallop, No JVD, No Murmur, Normal Peripheral Pulses Gastrointestinal: Normal Bowel Sounds, No Organomegaly, No Pulsatile Mass, Non Tender, Soft Extremity: Normal Capillary Refill, Normal Inspection, Normal Range of Motion, Non Tender, No Calf Tenderness Neurologic/Psychiatric: Alert, Oriented x3 Skin: Normal Color, Warm/Dry Lymphatic: No Adenopathy Progress/Results/Core Measures Results/Orders Lab Results Laboratory Tests Test 01/19/22 22:42 Range/Units White Blood Count 9.3 4.3-11.0 10^3/uL Red Blood Count 5.29 4.30-5.52 10^6/uL Hemoglobin 15.8 13.3-17.7 g/dL Hematocrit 47 40-54 % Mean Corpuscular Volume 89 80-99 fL Mean Corpuscular Hemoglobin 30 25-34 pg Mean Corpuscular Hemoglobin Concent 34 32-36 g/dL Red Cell Distribution Width 14.7 H 10.0-14.5 % Platelet Count 200 130-400 10^3/uL Mean Platelet Volume 10.3 9.0-12.2 fL Immature Granulocyte % (Auto) 2 % Neutrophils (%) (Auto) 58 42-75 % Lymphocytes (%) (Auto) 27 12-44 % Monocytes (%) (Auto) 8 0-12 % Eosinophils (%) (Auto) 3 0-10 % Basophils (%) (Auto) 1 0-10 % Neutrophils # (Auto) 5.4 1.8-7.8 10^3/uL Lymphocytes # (Auto) 2.5 1.0-4.0 10^3/uL Monocytes # (Auto) 0.8 0.0-1.0 10^3/uL Eosinophils # (Auto) 0.3 0.0-0.3 10^3/uL Basophils # (Auto) 0.1 0.0-0.1 10^3/uL Immature Granulocyte # (Auto) 0.2 H 0.0-0.1 10^3/uL Sodium Level 139 135-145 MMOL/L Potassium Level 4.0 3.6-5.0 MMOL/L Chloride Level 105 98-107 MMOL/L Carbon Dioxide Level 21 21-32 MMOL/L Anion Gap 13 5-14 MMOL/L Blood Urea Nitrogen 9 7-18 MG/DL Creatinine 1.06 0.60-1.30 MG/DL Estimat Glomerular Filtration Rate 84 BUN/Creatinine Ratio 8 Glucose Level 110 H 70-105 MG/DL Calcium Level 9.2 8.5-10.1 MG/DL Corrected Calcium 9.4 8.5-10.1 MG/DL Total Bilirubin 0.4 0.1-1.0 MG/DL Aspartate Amino Transf (AST/SGOT) 36 H 5-34 U/L Alanine Aminotransferase (ALT/SGPT) 37 0-55 U/L Alkaline Phosphatase 70 40-136 U/L Myoglobin 59.5 10.0-92.0 NG/ML Troponin I < 0.028 <0.028 NG/ML Total Protein 6.4 6.4-8.2 GM/DL Albumin 3.7 3.2-4.5 GM/DL My Orders Orders - GUERREROHOME DO Ekg Tracing (01/19/22 22:31) Cbc With Automated Diff (01/19/22 22:34) Chest 1 View, Ap/Pa Only (01/19/22 22:34) Ekg Tracing (01/19/22 22:34) Comprehensive Metabolic Panel (01/19/22 22:34) Myoglobin Serum (01/19/22 22:34) Ed Iv/Invasive Line Start (01/19/22 22:34) Troponin I Samuel (01/19/22 22:34) Vital Signs/I&O 01/19/22 22:31 Temp 36.8 Pulse 110 Resp 24 B/P (MAP) 141/85 (103) Pulse Ox 95 O2 Delivery Room Air Blood Pressure Mean: 103 EKG : Comment Sinus tachycardia 105 bpm. Normal intervals. Normal axis. No ST or T wave abnormalities. No ectopy. No Stemi Diagnostic Imaging Diagonstic Imaging: Xray Plain Films/CT/US/NM/MRI: chest Comments Negative for any acute findings Departure Communication (Admissions) Patient is hemodynamically stable. He is exquisitely tender to the right anterior chest wall on exam. No indication for ACS. Chest x-ray is clear for pneumonia, pneumothorax. No evidence for PE with minimal risk factors. Tachycardia initially resolved after he was resting in the bed, likely from strain as he is quite large. He is afebrile, no indication for infectious process at this time. He is discharged home in stable condition with close follow-up. Impression Primary Impression: Chest wall pain Disposition: HOME, SELF-CARE Condition: Stable Departure-Patient Inst. Referrals: ESTELLE GAR MD (PCP/Family) Primary Care Physician Patient Instructions: Chest Pain That Is Not Caused by the Heart (DC) Add. Discharge Instructions: You were seen in the emergency department for chest pain. No emergent medical condition is found for your symptoms today and I think this is coming from the muscles in the area. Use ibuprofen and Tylenol as needed for pains. Return to the emergency department for any severe concerns. Follow-up with your primary doctor in the next 3 to 4 days should your symptoms persist All discharge instructions reviewed with patient and/or family. Voiced understanding. [facility] DO Jan 19, 2022 22:50
[2022-01-19 23:12] LABS: ALBUMIN 3.7 GM/DL (3.2-4.5); BILIRUBIN,TOTAL 0.4 MG/DL (0.1-1.0); CALCIUM 9.2 MG/DL (8.5-10.1); CREATININE SERUM 1.06 MG/DL (0.60-1.30); TOTAL PROTEIN 6.4 GM/DL (6.4-8.2)
[2022-01-19 23:37] VITALS: BP 165/83
--- NOTE | 2022-01-20 06:43 | Diagnostic Imaging Report ---
INDICATION: Chest pain. TECHNIQUE: Single view chest 10:51 PM. CORRELATION STUDY: 01/09/2022 FINDINGS: Moderate soft tissue attenuation limits assessment. The heart size, mediastinal configuration and pulmonary vascularity are within normal limits. The lungs are clear with no consolidating infiltrate. There is no significant effusion or pneumothorax. IMPRESSION: 1. Negative appearing single view chest. Dictated by: Dictated on workstation # [id number]
== END 2022-01-19 23:38 | disposition home or self-care (01) ==
LOC: EDUNIT# 22:30 → ER 22:30
DX: R07.89 Other chest pain (principal); E66.01 Morbid (severe) obesity due to excess calories; J44.9 Chronic obstructive pulmonary disease, unspecified; F17.210 Nicotine dependence, cigarettes, uncomplicated; Z68.43 Body mass index [BMI] 50.0-59.9, adult; Z99.89 Dependence on other enabling machines and devices
CPT/HCPCS: 36415; 71045; 80053; 83874; 84484; 85025; 93005

== ENCOUNTER 2022-02-01 00:24 | Emergency (ER) | payer MEDICAID ==
[~2022-02-01 00:24] MED LIST changes: +AMLO5TAB4 PO; -DOXY-311 PO; +DOXY-444 PO
--- NOTE | 2022-02-01 00:29 | ED Cough/URI ---
General Chief Complaint: Respiratory Problems Stated Complaint: TROUBLE BREATHING History of Present Illness Date Seen by Provider: Feb 01, 2022 Time Seen by Provider: 00:29 Initial Comments 51-year-old male presents with feeling of shortness of breath. Patient reports that is been a little bit worse for couple hours prior to arrival. Patient was recently diagnosed with pneumonia had a hospital stay and was discharged a couple days ago. He is currently on antibiotics. No reports of fever, chills. Allergies and Home Medications Allergies Coded Allergies: No Known Drug Allergies (Unverified , 03/26/21) Patient Home Medication List Home Medication List Reviewed: Yes Acetaminophen (Tylenol Extra Strength) 500 Mg Tablet, 1,000 MG PO Q4H PRN for PAIN-MILD (1-4), (Reported) Entered as Reported by: NEPTALI PUCKETT on 01/15/19 1059 Albuterol Sulfate (Ventolin Hfa) 1 Puff Puff, 2 PUFF INH Q4H PRN for SHORTNESS OF BREATH, (Reported) Entered as Reported by: KERI BULLOCK on 01/25/22 1518 Amlodipine Besylate (Norvasc) 5 Mg Tablet, 5 MG PO DAILY Prescribed by: XAVI LOPEZ on 01/26/22 1214 Apixaban (Eliquis) 5 Mg Tablet, 5 MG PO BID Prescribed by: BLANK ELIZABETH on 01/08/22 0648 Aripiprazole (Aripiprazole) 30 Mg Tablet, 30 MG PO DAILY, (Reported) Entered as Reported by: NEPTALI PUCKETT on 01/15/19 1059 Aspirin (Aspirin EC) 81 Mg Tablet., 81 MG PO DAILY, (Reported) Entered as Reported by: BALDEV DOWNS on 01/07/22 0915 Atorvastatin Calcium (Atorvastatin Calcium) 40 Mg Tablet, 40 MG PO HS, (Reported) Entered as Reported by: NEPTALI PUCKETT on 01/15/19 1059 Baclofen (Baclofen) 10 Mg Tablet, 10 MG PO TID, (Reported) Entered as Reported by: BALDEV DOWNS on 01/07/22 0915 Cefdinir (Cefdinir) 300 Mg Capsule, 300 MG PO BID Prescribed by: XAVI LOPEZ on 01/26/22 1214 Duloxetine HCl (Duloxetine HCl) 60 Mg Capsule., 120 MG PO DAILY, (Reported) Entered as Reported by: KERI BULLOCK on 05/09/20 1004 Famotidine (Famotidine) 20 Mg Tablet, 20 MG PO BID, (Reported) Entered as Reported by: NEPTALI PUCKETT on 01/15/19 1059 Fenofibrate Nanocrystallized (Fenofibrate) 145 Mg Tablet, 145 MG PO HS, (Reported) Entered as Reported by: NEPTALI PUCKETT on 01/15/19 1059 Gabapentin (Gabapentin) 600 Mg Tablet, 600 MG PO TID, (Reported) Entered as Reported by: KERI BULLOCK on 05/09/20 1008 Metformin HCl (Metformin HCl) 1,000 Mg Tablet, 1,000 MG PO BID, (Reported) Entered as Reported by: BALDEV DOWNS on 01/07/22 0915 Metoprolol Succinate (Metoprolol Succinate) 100 Mg Tab.er.24h, 100 MG PO DAILY Prescribed by: BLANK ELIZABETH on 01/08/22 1108 Potassium Chloride (Potassium Chloride) 20 Meq Tab.er.prt, 40 MEQ PO BID, (Reported) Entered as Reported by: BALDEV DOWNS on 01/07/22 0915 Ropinirole HCl (Ropinirole HCl) 5 Mg Tablet, 5 MG PO TID, (Reported) Entered as Reported by: SHANNAN DIAZ on 05/22/18 0604 Sodium Bicarbonate (Sodium Bicarbonate) 650 Mg Tablet, 650 MG PO BID, (Reported) Entered as Reported by: KERI BULLOCK on 01/25/22 1518 Tamsulosin HCl (Flomax) 0.4 Mg Cap, 0.4 MG PO HS, (Reported) Entered as Reported by: BALDEV DOWNS on 01/07/22 0915 Discontinued Medications Albuterol Sulfate (Ventolin Hfa) 1 Puff Puff, 2 PUFF INH Q4H Discontinued Reason: Duplicate Order Prescribed by: BLANK ELIZABETH on 01/08/22 1127 Review of Systems Review of Systems Constitutional: No chills, No fever EENTM: no symptoms reported Respiratory: cough, short of breath Cardiovascular: no symptoms reported Gastrointestinal: no symptoms reported Genitourinary: no symptoms reported Musculoskeletal: no symptoms reported Skin: no symptoms reported Past Lotzevz-Pbexnm-Bhtphu Hx Immunizations Up To Date Tetanus Booster (TDap): Less than 5yrs PED Vaccines UTD: No First/Initial COVID19 Vaccinat: JUNE 01, 2020 Second COVID19 Vaccination Ronald: JUNE 15, 2020 Third COVID19 Vaccination Date: JUNE 01, 2020 Seasonal Allergies Seasonal Allergies: No Past Medical History Surgery/Hospitalization HX: LEFT URETERAL STENTBACK SURGERY 2003 PMH: AKF, ENTERCOLITIS, SEPSIS, DEPRESSION, SLEEP APNEA, UTI, HTN, PULMONARY HTN, COPD, DM, UTI, GERD, BPH, Surgeries: Yes Gallbladder, Orthopedic, Renal Respiratory: Yes COPD Currently Using CPAP: Yes Currently Using BIPAP: No Cardiac: Yes (PULMONARY HTN) High Cholesterol, Hypertension Neurological: Yes Neuropathy Reproductive Disorders: No Sexually Transmitted Disease: No HIV/AIDS: No Genitourinary: Yes (URETERAL STENTS) Kidney Infection, Prostate Problems, Kidney Stones, Renal Failure Gastrointestinal: Yes (S/P EVELIO) Colitis, Gastroesophageal Reflux, Gall Bladder Disease Musculoskeletal: Yes (BACK SX 2003;RESTLESS LEG SYNDROME) Degenerate Disk Disease, Arthritis, Chronic Back Pain, Gout Endocrine: Yes (MORBID OBESITY; ORAL MEDICATION FOR DIABETES) Diabetes, Non-Insulin dep HEENT: Yes Cancer: No Psychosocial: Yes (BIPOLAR, POLYSUBSTANCE ABUSE) Anxiety, Bipolar, Depression Integumentary: No Blood Disorders: No Adverse Reaction/Blood Tranf: No Family Medical History Completed stroke DVT 19 MOTHER, , Onset:Unknown Diabetes mellitus 19 MOTHER, , Onset:Unknown G8 BROTHER, Onset:Unknown FH: gastric ulcer 19 FATHER, Onset:Unknown No Pertinent Family Hx, DVT/PE, Diabetes, GI Disease Physical Exam Vital Signs - First Documented 02/01/22 00:25 Temp 36.5 Pulse 112 Resp 24 B/P (MAP) 169/98 (121) Pulse Ox 97 O2 Delivery Room Air Capillary Refill : Height: 5'10.00" Weight: 330lbs. 3.0oz. 149.521352qq; 53.77 BMI Method:Stated General Appearance: WD/WN, obese HEENT: PERRL/EOMI Neck: full range of motion Respiratory: no respiratory distress, no accessory muscle use, wheezing (mild bilateral ) Cardiovascular: tachycardia Gastrointestinal: non tender, soft Neurologic/Psychiatric: alert, normal mood/affect, oriented x 3 Skin: normal color, warm/dry Progress/Results/Core Measures Suspected Sepsis SIRS Temperature: Pulse: Respiratory Rate: Laboratory Tests 02/01/22 00:40: White Blood Count 8.0 Blood Pressure / Mean: Laboratory Tests 02/01/22 00:40: Creatinine 1.24, Platelet Count 222, Total Bilirubin 0.3 Results/Orders Lab Results Laboratory Tests Test 02/01/22 00:40 Range/Units White Blood Count 8.0 4.3-11.0 10^3/uL Red Blood Count 5.16 4.30-5.52 10^6/uL Hemoglobin 15.1 13.3-17.7 g/dL Hematocrit 46 40-54 % Mean Corpuscular Volume 89 80-99 fL Mean Corpuscular Hemoglobin 29 25-34 pg Mean Corpuscular Hemoglobin Concent 33 32-36 g/dL Red Cell Distribution Width 15.7 H 10.0-14.5 % Platelet Count 222 130-400 10^3/uL Mean Platelet Volume 9.8 9.0-12.2 fL Immature Granulocyte % (Auto) 6 % Neutrophils (%) (Auto) 50 42-75 % Lymphocytes (%) (Auto) 25 12-44 % Monocytes (%) (Auto) 16 H 0-12 % Eosinophils (%) (Auto) 2 0-10 % Basophils (%) (Auto) 2 0-10 % Neutrophils # (Auto) 4.0 1.8-7.8 10^3/uL Lymphocytes # (Auto) 2.0 1.0-4.0 10^3/uL Monocytes # (Auto) 1.3 H 0.0-1.0 10^3/uL Eosinophils # (Auto) 0.2 0.0-0.3 10^3/uL Basophils # (Auto) 0.1 0.0-0.1 10^3/uL Immature Granulocyte # (Auto) 0.5 H 0.0-0.1 10^3/uL Sodium Level 138 135-145 MMOL/L Potassium Level 4.4 3.6-5.0 MMOL/L Chloride Level 99 98-107 MMOL/L Carbon Dioxide Level 21 21-32 MMOL/L Anion Gap 18 H 5-14 MMOL/L Blood Urea Nitrogen 16 7-18 MG/DL Creatinine 1.24 0.60-1.30 MG/DL Estimat Glomerular Filtration Rate 70 BUN/Creatinine Ratio 13 Glucose Level 112 H 70-105 MG/DL Calcium Level 8.9 8.5-10.1 MG/DL Corrected Calcium 9.1 8.5-10.1 MG/DL Total Bilirubin 0.3 0.1-1.0 MG/DL Aspartate Amino Transf (AST/SGOT) 50 H 5-34 U/L Alanine Aminotransferase (ALT/SGPT) 38 0-55 U/L Alkaline Phosphatase 86 40-136 U/L Total Protein 6.7 6.4-8.2 GM/DL Albumin 3.7 3.2-4.5 GM/DL Smear Scan YES My Orders Orders - FRANTZ BONILLAVOR L DO Cbc With Automated Diff (02/01/22 00:32) Comprehensive Metabolic Panel (02/01/22 00:32) Chest 1 View Ap/Pa Only (02/01/22 00:32) Albuterol/Ipra Inhalation Soln (Duoneb I (02/01/22 00:45) Svn Small Volume Nebulizer (02/01/22 00:32) Dexamethasone Oral Soln (Ed) (Decadron I (02/01/22 01:15) Medications Given in ED Current Medications Medications Dose Ordered Sig/Saba Route Start Time Stop Time Status Last Admin Dose Admin Albuterol/ Ipratropium 3 ml ONCE ONCE INH 02/01/22 00:45 02/01/22 00:46 DC 02/01/22 00:36 3 ML Dexamethasone 10 mg ONCE ONCE PO 02/01/22 01:15 02/01/22 01:16 DC 02/01/22 01:14 10 MG Vital Signs/I&O 02/01/22 02/01/22 00:25 01:09 Temp 36.5 36.5 Pulse 112 110 Resp 24 22 B/P (MAP) 169/98 (121) 118/81 Pulse Ox 97 97 O2 Delivery Room Air Room Air Capillary Refill : Progress Note : Progress Note Patient is currently on cefdinir for pneumonia which she was just recently discharged. Patient oxygen remained in the mid 90s throughout his stay. Patient wheezing improved with DuoNeb. He does have some underlying COPD. He was provided with 10 mg of dexamethasone due to some underlying COPD. He was encouraged to continue the cefdinir. He has an appointment in a couple days with his primary care provider. Recommend he uses albuterol every 4 hours while awake for the next 24 hours and as needed. Chest x-ray shows improvement from prior. Diagnostic Imaging Diagonstic Imaging: Xray Plain Films/CT/US/NM/MRI: chest Comments Improved pneumonia right lower lobe from previous. Reviewed: Reviewed by Me Departure Impression Primary Impression: RLL pneumonia Qualified Codes: J18.9 - Pneumonia, unspecified organism Additional Impression: COPD (chronic obstructive pulmonary disease) Qualified Codes: J42 - Unspecified chronic bronchitis Disposition: HOME, SELF-CARE Condition: Stable Departure-Patient Inst. Referrals: ESTELLE GAR MD (PCP/Family) Primary Care Physician Patient Instructions: Chronic Bronchitis (DC), Pneumonia, Adult ED, Exacerbation of COPD (DC) Add. Discharge Instructions: Please use your inhaler every 4 hours while awake for the next 24 hours then as needed. Continue your already prescribed cefdinir. Please keep your appointment with your primary care provider next week for follow-up from your recent hospital stay All discharge instructions reviewed with patient and/or family. Voiced understanding. MAHSA BONILLA DO Feb 01, 2022 00:29
[2022-02-01] MEDS ORDERED: RT-ALBUTEROL/IPRATROPIUM 3 ML (DUONEB) VIAL INH ONE (00:45)
[2022-02-01 00:51] LABS: BASOPHILS # (AUTO) 0.1 10^3/uL (0.0-0.1); BASOPHILS % (AUTO) 2 % (0-10); EOSINOPHILS # (AUTO) 0.2 10^3/uL (0.0-0.3); EOSINOPHILS % (AUTO) 2 % (0-10); HEMATOCRIT 46 % (40-54); HEMOGLOBIN 15.1 g/dL (13.3-17.7); LYMPHOCYTES % (AUTO) 25 % (12-44); MEAN CORPUSCULAR HEMOGLOBIN 29 pg (25-34); MEAN CORPUSCULAR HGB CONC 33 g/dL (32-36); MEAN CORPUSCULAR VOLUME 89 fL (80-99); MEAN PLATELET VOLUME 9.8 fL (9.0-12.2); MONOCYTES # (AUTO) 1.3 10^3/uL (0.0-1.0); MONOCYTES % (AUTO) 16 % (0-12); NEUTROPHILS % (AUTO) 50 % (42-75); PLATELET COUNT 222 10^3/uL (130-400)
[2022-02-01 00:57] LABS: SMEAR SCAN COMMENT YES
[2022-02-01 01:09] VITALS: BP 118/81
[2022-02-01 01:17] LABS: ALBUMIN 3.7 GM/DL (3.2-4.5); BILIRUBIN,TOTAL 0.3 MG/DL (0.1-1.0); CALCIUM 8.9 MG/DL (8.5-10.1); CREATININE SERUM 1.24 MG/DL (0.60-1.30); POTASSIUM 4.4 MMOL/L (3.6-5.0); TOTAL PROTEIN 6.7 GM/DL (6.4-8.2)
--- NOTE | 2022-02-01 06:40 | Diagnostic Imaging Report ---
CHEST 1 VIEW AP/PA ONLY Indication: Shortness of air Comparison: 01/24/2022 Findings: Stable enlargement of cardiac silhouette. Basilar linear opacities are unchanged and may be on the basis of atelectasis. No pleural effusion or pneumothorax. Impression: 1. No acute process by radiography. Dictated by: Dictated on workstation # [id number]
== END 2022-02-01 01:17 | disposition home or self-care (01) ==
LOC: EDUNIT# 00:24 → ER FS 00:25
DX: J18.9 Pneumonia, unspecified organism (principal); J44.9 Chronic obstructive pulmonary disease, unspecified; E66.01 Morbid (severe) obesity due to excess calories; Z68.43 Body mass index [BMI] 50.0-59.9, adult; Z28.310 Unvaccinated for COVID-19
CPT/HCPCS: 36415; 71045; 80053; 85025; 94640

== ENCOUNTER 2022-02-26 19:53 | Inpatient (IN) | payer MEDICAID ==
[~2022-02-26] VITALS: Ht 175 cm; Wt 171.3 kg
[2022-02-26] MEDS ORDERED: ASPIRIN 81 MG CHEW (CHILDREN'S ASA) PO ONE (20:30)
[2022-02-26] MEDS ORDERED: methylPREDNISolone 125 MG (Solu-MEDROL) VIAL IVP ONE (20:30)
[2022-02-26 20:35] LABS: HEMOGLOBIN 15.6 g/dL (13.3-17.7)
[2022-02-26 20:37] LABS: BASOPHILS # (AUTO) 0.1 10^3/uL (0.0-0.1); BASOPHILS % (AUTO) 1 % (0-10); EOSINOPHILS # (AUTO) 0.2 10^3/uL (0.0-0.3); EOSINOPHILS % (AUTO) 2 % (0-10); HEMATOCRIT 47 % (40-54); LYMPHOCYTES # (AUTO) 2.5 10^3/uL (1.0-4.0); LYMPHOCYTES % (AUTO) 28 % (12-44); MEAN CORPUSCULAR HEMOGLOBIN 30 pg (25-34); MEAN CORPUSCULAR HGB CONC 33 g/dL (32-36); MEAN CORPUSCULAR VOLUME 90 fL (80-99); MEAN PLATELET VOLUME 11.5 fL (9.0-12.2); MONOCYTES # (AUTO) 0.7 10^3/uL (0.0-1.0); MONOCYTES % (AUTO) 7 % (0-12); NEUTROPHILS # (AUTO) 5.5 10^3/uL (1.8-7.8); NEUTROPHILS % (AUTO) 61 % (42-75); PLATELET COUNT 168 10^3/uL (130-400)
--- NOTE | 2022-02-26 20:42 | Diagnostic Imaging Report ---
EXAMINATION: Chest 1 view HISTORY: Chest pain COMPARISON: 02/01/2022 FINDINGS: Heart size and pulmonary vasculature are normal. Mild interstitial opacities in the perihilar and lower lungs. There is a small left pleural effusion. No pneumothorax. The osseous structures are intact. IMPRESSION: 1. Perihilar and basilar interstitial opacities with small left pleural effusion. Findings can be seen with edema or pneumonia. Dictated by: Dictated on workstation # [id number]
--- NOTE | 2022-02-26 21:05 | ED Respiratory ---
General Chief Complaint: Respiratory Problems Stated Complaint: SOA Nursing Triage Note: TO ED VIA [facility] WITH C/O SOA SINCE APPRO 1829. PT STATES HE "FORGOT ABOUT USING HOME NEBULIZER". WAS DIAGNOSED WITH RLL PNEUMONIA AT THE BEGINNING OF JANUARY. HX COPD WITH CONTINUED TOBACCOISM. Source: patient, EMS Exam Limitations: no limitations (LUCÍA HENDRICKS APRN) History of Present Illness Date Seen by Provider: Feb 26, 2022 Time Seen by Provider: 20:30 Initial Comments 51-year-old male presents via EMS with complaints of shortness of breath starting at 6:30 this evening. Patient states he was sitting when the shortness of breath started. Patient also reports intermittent substernal chest pain. Denies radiation of pain, pain is not reproducible. Patient denies any recent illness, denies cough, fever, vomiting, diarrhea. Patient reports he smokes daily approximately a pack or more a day. Patient reports history of A. fib, COPD, hypertension, hyperlipidemia, colitis. Patient was recently admitted for pneumonia. Patient was given 1 DuoNeb by EMS. EMS reported expiratory wheezing to bilateral upper lobes prior to DuoNeb. (LUCÍA HENDRICKS APRN) Allergies and Home Medications Allergies Coded Allergies: No Known Drug Allergies (Unverified , 03/26/21) Patient Home Medication List Home Medication List Reviewed: Yes (LUCÍA HENDRICKS APRN) Acetaminophen (Tylenol Extra Strength) 500 Mg Tablet, 1,000 MG PO Q4H PRN for PAIN-MILD (1-4), (Reported) Entered as Reported by: NEPTALI PUCKETT on 01/15/19 1059 Albuterol Sulfate (Ventolin Hfa) 1 Puff Puff, 2 PUFF INH Q4H PRN for SHORTNESS OF BREATH, (Reported) Entered as Reported by: KERI BULLOCK on 01/25/22 1518 Amlodipine Besylate (Norvasc) 5 Mg Tablet, 5 MG PO DAILY Prescribed by: XAVI LOPEZ on 01/26/22 1214 Apixaban (Eliquis) 5 Mg Tablet, 5 MG PO BID Prescribed by: BLANK ELIZABETH on 01/08/22 0648 Aripiprazole (Aripiprazole) 30 Mg Tablet, 30 MG PO DAILY, (Reported) Entered as Reported by: NEPTALI PUCKETT on 01/15/19 1059 Aspirin (Aspirin EC) 81 Mg Tablet.dr, 81 MG PO DAILY, (Reported) Entered as Reported by: BALDEV DOWNS on 01/07/22 0915 Atorvastatin Calcium (Atorvastatin Calcium) 40 Mg Tablet, 40 MG PO HS, (Reported) Entered as Reported by: NEPTALI PUCKETT on 01/15/19 1059 Baclofen (Baclofen) 10 Mg Tablet, 10 MG PO TID, (Reported) Entered as Reported by: BALDEV DOWNS on 01/07/22 09 Cefdinir (Cefdinir) 300 Mg Capsule, 300 MG PO BID Prescribed by: XAVI LOPEZ on 01/26/22 1214 Duloxetine HCl (Duloxetine HCl) 60 Mg Capsule.dr, 120 MG PO DAILY, (Reported) Entered as Reported by: KERI BULLOCK on 05/09/20 1004 Famotidine (Famotidine) 20 Mg Tablet, 20 MG PO BID, (Reported) Entered as Reported by: NEPTALI PUCKETT on 01/15/19 1059 Fenofibrate Nanocrystallized (Fenofibrate) 145 Mg Tablet, 145 MG PO HS, (Reported) Entered as Reported by: NEPTALI PUCKETT on 01/15/19 1059 Gabapentin (Gabapentin) 600 Mg Tablet, 600 MG PO TID, (Reported) Entered as Reported by: KERI BULLOCK on 05/09/20 1008 Metformin HCl (Metformin HCl) 1,000 Mg Tablet, 1,000 MG PO BID, (Reported) Entered as Reported by: BALDEV DOWNS on 01/07/22 09 Metoprolol Succinate (Metoprolol Succinate) 100 Mg Tab.er.24h, 100 MG PO DAILY Prescribed by: BLANK ELIZABETH on 01/08/22 1108 Potassium Chloride (Potassium Chloride) 20 Meq Tab.er.prt, 40 MEQ PO BID, (Reported) Entered as Reported by: BALDEV DOWNS on 01/07/22 0915 Ropinirole HCl (Ropinirole HCl) 5 Mg Tablet, 5 MG PO TID, (Reported) Entered as Reported by: SHANNAN DIAZ on 05/22/18 0604 Sodium Bicarbonate (Sodium Bicarbonate) 650 Mg Tablet, 650 MG PO BID, (Reported) Entered as Reported by: KERI BULLOCK on 01/25/22 1518 Tamsulosin HCl (Flomax) 0.4 Mg Cap, 0.4 MG PO HS, (Reported) Entered as Reported by: BALDEV DOWNS on 01/07/22 0915 Review of Systems Review of Systems Constitutional: no symptoms reported; No chills, No fever Respiratory: No cough; short of breath Cardiovascular: chest pain (substernal) Gastrointestinal: No abdominal pain, No diarrhea, No nausea, No vomiting (LUCÍA HENDRICKS APRN) Past Exylvtm-Czkyvh-Azijvq Hx Patient Social History Tobacco Use?: Yes Smoking Status: Current Everyday Smoker (LUCÍA HENDRICKS APRN) Immunizations Up To Date Tetanus Booster (TDap): Less than 5yrs PED Vaccines UTD: No First/Initial COVID19 Vaccinat: JUNE 01, 2020 Second COVID19 Vaccination Ronald: JUNE 15, 2020 Third COVID19 Vaccination Date: JUNE 01, 2020 (LUCÍA HENDRICKS APRN) Seasonal Allergies Seasonal Allergies: No (LUCÍA HENDRICKS APRN) Past Medical History Surgery/Hospitalization HX: LEFT URETERAL STENTBACK SURGERY 2003 PMH: AKF, ENTERCOLITIS, SEPSIS, DEPRESSION, SLEEP APNEA, UTI, HTN, PULMONARY HTN, COPD, DM, UTI, GERD, BPH, Surgeries: Yes Gallbladder, Orthopedic, Renal Respiratory: Yes COPD Currently Using CPAP: Yes Currently Using BIPAP: No Cardiac: Yes (PULMONARY HTN) High Cholesterol, Hypertension Neurological: Yes Neuropathy Reproductive Disorders: No Sexually Transmitted Disease: No HIV/AIDS: No Genitourinary: Yes (URETERAL STENTS) Kidney Infection, Prostate Problems, Kidney Stones, Renal Failure Gastrointestinal: Yes (S/P EVELIO) Colitis, Gastroesophageal Reflux, Gall Bladder Disease Musculoskeletal: Yes (BACK SX 2003;RESTLESS LEG SYNDROME) Degenerate Disk Disease, Arthritis, Chronic Back Pain, Gout Endocrine: Yes (MORBID OBESITY; ORAL MEDICATION FOR DIABETES) Diabetes, Non-Insulin dep HEENT: Yes Cancer: No Psychosocial: Yes (BIPOLAR, POLYSUBSTANCE ABUSE) Anxiety, Bipolar, Depression Integumentary: No Blood Disorders: No Adverse Reaction/Blood Tranf: No (LUCÍA HENDRICKS APRN) Family Medical History Completed stroke DVT 19 MOTHER, , Onset:Unknown Diabetes mellitus 19 MOTHER, , Onset:Unknown G8 BROTHER, Onset:Unknown FH: gastric ulcer 19 FATHER, Onset:Unknown No Pertinent Family Hx, DVT/PE, Diabetes, GI Disease (LUCÍA HENDRICKS APRN) Physical Exam Vital Signs - First Documented (KRISTIAN CONTRERAS DO) Capillary Refill : Less Than 3 Seconds (LUCÍA HENDRICKS APRN) Height: 5'10.00" Weight: 330lbs. 3.0oz. 149.546022ho; 53.00 BMI Method:Stated General Appearance: WD/WN, moderate distress Neck: supple, normal inspection Respiratory: chest non-tender, no respiratory distress, no accessory muscle use, wheezing (slight exp wheezing LLL) Cardiovascular: no edema, no gallop, no JVD, no murmur, tachycardia Extremities: normal inspection Neurologic/Psychiatric: alert, normal mood/affect, oriented x 3 Skin: normal color, warm/dry (LCUÍA HENDRICKS APRN) Progress/Results/Core Measures Suspected Sepsis SIRS Temperature: Pulse: 115 Respiratory Rate: 22 Laboratory Tests 02/26/22 20:10: White Blood Count 9.0 Blood Pressure 143 /100 Mean: 114 Laboratory Tests 02/26/22 20:10: Platelet Count 168 02/26/22 20:46: Creatinine 1.42H, INR Comment 0.8, Total Bilirubin 0.3 (LUCÍA HENDRICKS APRN) Results/Orders Lab Results Laboratory Tests Test 02/26/22 20:10 02/26/22 20:46 02/26/22 22:22 02/26/22 23:03 Range/Units White Blood Count 9.0 4.3-11.0 10^3/uL Red Blood Count 5.23 4.30-5.52 10^6/uL Hemoglobin 15.6 13.3-17.7 g/dL Hematocrit 47 40-54 % Mean Corpuscular Volume 90 80-99 fL Mean Corpuscular Hemoglobin 30 25-34 pg Mean Corpuscular Hemoglobin Concent 33 32-36 g/dL Red Cell Distribution Width 15.6 H 10.0-14.5 % Platelet Count 168 130-400 10^3/uL Mean Platelet Volume 11.5 9.0-12.2 fL Immature Granulocyte % (Auto) 1 % Neutrophils (%) (Auto) 61 42-75 % Lymphocytes (%) (Auto) 28 12-44 % Monocytes (%) (Auto) 7 0-12 % Eosinophils (%) (Auto) 2 0-10 % Basophils (%) (Auto) 1 0-10 % Neutrophils # (Auto) 5.5 1.8-7.8 10^3/uL Lymphocytes # (Auto) 2.5 1.0-4.0 10^3/uL Monocytes # (Auto) 0.7 0.0-1.0 10^3/uL Eosinophils # (Auto) 0.2 0.0-0.3 10^3/uL Basophils # (Auto) 0.1 0.0-0.1 10^3/uL Immature Granulocyte # (Auto) 0.1 0.0-0.1 10^3/uL Percent Immature Platelet Fraction 5.1 0.0-7.6 % B-Type Natriuretic Peptide < 10.0 <100.0 PG/ML Prothrombin Time 11.9 L 12.2-14.7 SEC INR Comment 0.8 0.8-1.4 Activated Partial Thromboplast Time 32 24-35 SEC D-Dimer <= 0.27 0.00-0.49 UG/ML Sodium Level 137 135-145 MMOL/L Potassium Level 4.0 3.6-5.0 MMOL/L Chloride Level 104 98-107 MMOL/L Carbon Dioxide Level 21 21-32 MMOL/L Anion Gap 12 5-14 MMOL/L Blood Urea Nitrogen 19 H 7-18 MG/DL Creatinine 1.42 H 0.60-1.30 MG/DL Estimat Glomerular Filtration Rate 59 BUN/Creatinine Ratio 13 Glucose Level 227 H 70-105 MG/DL Calcium Level 9.2 8.5-10.1 MG/DL Corrected Calcium 9.4 8.5-10.1 MG/DL Magnesium Level 1.9 1.6-2.4 MG/DL Total Bilirubin 0.3 0.1-1.0 MG/DL Aspartate Amino Transf (AST/SGOT) 34 5-34 U/L Alanine Aminotransferase (ALT/SGPT) 30 0-55 U/L Alkaline Phosphatase 85 40-136 U/L Troponin I < 0.028 <0.028 NG/ML Total Protein 6.7 6.4-8.2 GM/DL Albumin 3.8 3.2-4.5 GM/DL Lipase 92 H 8-78 U/L Urine Color YELLOW Urine Clarity CLEAR Urine pH 6.0 5-9 Urine Specific [place] >=1.030 1.016-1.022 Urine Protein 3+ H NEGATIVE Urine Glucose (UA) NEGATIVE NEGATIVE Urine Ketones NEGATIVE NEGATIVE Urine Nitrite POSITIVE H NEGATIVE Urine Bilirubin NEGATIVE NEGATIVE Urine Urobilinogen 0.2 < = 1.0 MG/DL Urine Leukocyte Esterase NEGATIVE NEGATIVE Urine RBC (Auto) 2+ H NEGATIVE Urine RBC 25-50 H /HPF Urine WBC 5-10 H /HPF Urine Squamous Epithelial Cells RARE /HPF Urine Crystals NONE /LPF Urine Calcium Oxalate Crystals MODERATE H /LPF Urine Bacteria MODERATE H /HPF Urine Casts PRESENT /LPF Urine Hyaline Casts 0-2 H /LPF Urine Mucus SMALL H /LPF Urine Culture Indicated YES Blood Gas Puncture Site RIGHT RADIAL Blood Gas Patient Temperature 37.1 Arterial Blood pH 7.32 *L 7.37-7.43 Arterial Blood Partial Pressure CO2 50 H 35-45 MMHG Arterial Blood Partial Pressure O2 72 L 79-93 MMHG Arterial Blood HCO3 25 23-27 MMOL/L Arterial Blood Total CO2 26.3 21.0-31.0 MMOL/L Arterial Blood Oxygen Saturation 94 94-100 % Arterial Blood Base Excess -0.5 -2.5-2.5 MMOL/L Jude Test YES-POS Blood Gas Ventilator Setting NO Blood Gas Inspired Oxygen NA (DINAE,KRISTIAN K DO) My Orders Orders - DIANE,KRISTIAN K DO Arterial Blood Gas (02/26/22 23:03) (DIANE,KRISTIAN K DO) Vital Signs/I&O 02/26/22 02/26/22 19:53 19:53 Temp 37.1 Pulse 115 Resp 22 B/P (MAP) 143/100 (114) Pulse Ox 95 O2 Delivery Room Air Room Air (DIANE,KRISTIAN K DO) Vital Signs/I&O Capillary Refill : Less Than 3 Seconds (LUCÍA HENDRICKS APRN) Blood Pressure Mean: 114 Progress Note #1: Time: 20:40 Progress Note Patient seen and evaluated. Concern for COPD exacerbation, pneumonia. Due to chest pain we will also initiate cardiac work-up with CBC, CMP, troponin, D- dimer, BNP, chest x-ray, lipase due to substernal/mid upper abdomen chest pain. Solu-Medrol ordered for COPD exacerbation. Progress Note #2: Time: 21:30 Progress Note Due to history of persistent pneumonia will order CT scan of the chest. CT angio not needed due to negative D-dimer. Progress Note #3: Time: 22:20 Progress Note Due to increased work of breathing with minimal exertion and persistent pneumonia on chest x-ray, will admit for COPD exacerbation and pneumonia. Patient improved with DuoNeb by EMS but still continued to have slight lower lobe expiratory wheezing. Patient continued to be tachypneic while resting in bed during evaluation. Dr. Lopez consulted for admission. Progress Note #4: Time: 23:43 Progress Note Reevaluated patient. Patient is tachypneic, appears to be having difficulty breathing, and is diaphoretic. Patient complains of feeling short of breath. Lung sounds assessed and clear at this time. Head of bed elevated at this time. Patient reports improvement in breathing. Patient wears a CPAP at night. Lopressor ordered for elevated blood pressure. (LUCÍA HENDRICKS APRN) Diagnostic Imaging Diagonstic Imaging: Xray Plain Films/CT/US/NM/MRI: chest Comments Date of Exam:02/26/22 CHEST 1 VIEW, AP/PA ONLY EXAMINATION: Chest 1 view HISTORY: Chest pain COMPARISON: 02/01/2022 FINDINGS: Heart size and pulmonary vasculature are normal. Mild interstitial opacities in the perihilar and lower lungs. There is a small left pleural effusion. No pneumothorax. The osseous structures are intact. IMPRESSION: 1. Perihilar and basilar interstitial opacities with small left pleural effusion. Findings can be seen with edema or pneumonia. Dictated by: Dictated on workstation # [id number] Dict: 02/26/222038 Trans: 02/26/222123 [facility] [id number] Interpreted by: BRITNI PEARSON DO Electronically signed by: BRITNI PEARSON DO 02/26/222123 Diagonstic Imaging: CT Plain Films/CT/US/NM/MRI: chest Comments Date of Exam:02/26/22 CT CHEST W EXAMINATION: CT chest with intravenous contrast. TECHNIQUE: Multiple contiguous axial images were obtained through the chest after the uneventful administration of intravenous contrast. All CT scans use one or more of the following dose optimizing techniques: automated exposure control, MA and/or KvP adjustment based on patient size and exam type or iterative reconstruction. HISTORY: Shortness of breath. Pneumonia. COMPARISON: 03/13/2021. FINDINGS: The heart size is within normal limits. No pericardial effusion is present. There is no mediastinal, hilar, or axillary lymphadenopathy. The lungs demonstrate no pulmonary nodules or masses. Small amount of dependent opacities are seen in the right lung base. There are no focal areas of consolidation. No central endobronchial obstructing lesions are identified. There is no pleural effusion or pneumothorax. The osseous structures demonstrate no acute abnormalities. Limited views of the upper abdominal structures demonstrate no acute abnormalities. Nonobstructing calculus is seen in the mid right kidney. The gallbladder is surgically absent. Both adrenal glands are unremarkable. IMPRESSION: 1. Small amount of dependent opacities in the right lung base, similar to the prior exam and likely representing atelectasis/scarring. No new focal consolidations. 2. Stable nonobstructing calculus in the mid right kidney. Agree with overnight report. Dictated by: Dictated on workstation # [id number] Dict: 02/27/22603 Trans: 02/27/22618 [id number] Interpreted by: ANNE TAY DO Electronically signed by: ANNE TAY DO 02/27/22618 (LUCÍA HENDRICKS APRN) Departure Impression Primary Impression: Acute exacerbation of chronic obstructive pulmonary disease (COPD) Additional Impressions: Pneumonia HTN (hypertension) Disposition: 09 ADMITTED INPATIENT Condition: Stable Admissions Decision to Admit/Date: Feb 26, 2022 Time/Decision to Admit Time: 22:20 (LUCÍA HENDRICKS APRN) Departure-Patient Inst. Decision time for Depature: 22:20 (LUCÍA HENDRICKS APRN) Referrals: ESTELLE GAR MD (PCP/Family) Primary Care Physician ATTENDING PHYSICIAN NOTE: I WAS PHYSICALLY PRESENT ER PHYSICIAN, BUT I WAS NOT INVOLVED IN ANY DECISION MAKING OR ANY CARE OF THIS PATIENT, AND I AM NOT COLLABORATING PHYSICIAN. (KRISTIAN CONTRERAS DO) LUCÍA HENDRICKS APRN Feb 26, 2022 21:05 KRISTIAN CONTRERAS DO Feb 27, 2022 21:28
[2022-02-26 21:15] LABS: INR 0.8 (0.8-1.4); PROTHROMBIN TIME PATIENT 11.9 SEC (12.2-14.7)
[2022-02-26 21:21] LABS: ALBUMIN 3.8 GM/DL (3.2-4.5); BILIRUBIN,TOTAL 0.3 MG/DL (0.1-1.0); CALCIUM 9.2 MG/DL (8.5-10.1); CREATININE SERUM 1.42 MG/DL (0.60-1.30); MAGNESIUM 1.9 MG/DL (1.6-2.4); TOTAL PROTEIN 6.7 GM/DL (6.4-8.2)
[2022-02-26] MEDS: NS IV 1000 ML 1,000 ML IV SCH ×2 (22:11→22:59)
[2022-02-26] MEDS ORDERED: IOHEXOL 350 MG/ML 100 ML (OMNIPAQUE 350) VIAL IV ONE (22:15)
[2022-02-26] MEDS ORDERED: HOLD METFORMIN - RECEIVED CONTRAST 20 ML VIAL IV SCH (22:15)
[2022-02-26] MEDS ORDERED: NS 100 ML (IVPB) BAG IV ONE (22:15)
[2022-02-26] MEDS ORDERED: CEFEPIME INJECTION 1,000 MG in NS (IVPB) 50 ML IV ONE (22:30)
[2022-02-26 22:41] LABS: BILIRUBIN,URINE NEGATIVE (NEGATIVE); CLARITY,URINE CLEAR; COLOR,URINE YELLOW; GLUCOSE, URINE (UA) NEGATIVE (NEGATIVE); KETONES,URINE NEGATIVE (NEGATIVE); LEUKOCYTE ESTERASE ,URINE NEGATIVE (NEGATIVE); NITRITE,URINE POSITIVE (NEGATIVE); PROTEIN,URINE 3+ (NEGATIVE)
[2022-02-26 22:51] LABS: BACTERIA,URINE MODERATE /HPF; CALCIUM OXALATE CRYSTALS,UR MODERATE /LPF; HYALINE CASTS, URINE 0-2 /LPF; RBC,URINE 25-50 /HPF; SQUAMOUS EPITHELIAL CELL,UR RARE /HPF
[2022-02-26 23:18] LABS: ABG BASE EXCESS -0.5 MMOL/L (-2.5-2.5); ABG OXYGEN SATURATION 94 % (94-100); ABG PCO2 50 MMHG (35-45); ABG PO2 72 MMHG (79-93); ABG TCO2 26.3 MMOL/L (21.0-31.0)
[2022-02-26 23:19] LABS: ABG PH 7.32 (7.37-7.43); ALLENS TEST YES-POS; PATIENT TEMP 37.1; VENTILATOR NO
[2022-02-26] MEDS ORDERED: meTOprolol 5 MG/5 ML (LOPRESSOR) VIAL IV ONE (23:45)
[2022-02-27] VITALS (7 sets, daily range): BP systolic 121–159; BP diastolic 81–97
[2022-02-27] MEDS ORDERED: CATHETER FLUSH 10 ML SYR IVP PRN (01:30)
[2022-02-27] MEDS ORDERED: fentaNYL INJ 100 MCG/2 ML AMP IV PRN (01:30)
[2022-02-27] MEDS ORDERED: FAMOTIDINE 20 MG (PEPCID) TABLET PO PRN (01:30)
[2022-02-27] MEDS ORDERED: ACETAMINOPHEN 325 MG TABLET PO PRN (01:30)
[2022-02-27] MEDS ORDERED: ONDANSETRON 4 MG/2 ML (SDV) Z0FRAN IV PRN (01:30)
[2022-02-27] MEDS ORDERED: RT-ALBUTEROL SULF 2.5 MG/3 ML PRE-MIX VIAL IH PRN (01:30)
[2022-02-27] MEDS ORDERED: cloNIDine 0.1 MG (CATAPRES) TAB PO PRN (01:30)
[2022-02-27 03:04] LABS: BASOPHILS # (AUTO) 0.1 10^3/uL (0.0-0.1); BASOPHILS % (AUTO) 1 % (0-10); EOSINOPHILS % (AUTO) 0 % (0-10); HEMATOCRIT 48 % (40-54); HEMOGLOBIN 15.4 g/dL (13.3-17.7); LYMPHOCYTES # (AUTO) 1.2 10^3/uL (1.0-4.0); LYMPHOCYTES % (AUTO) 13 % (12-44); MEAN CORPUSCULAR HEMOGLOBIN 29 pg (25-34); MEAN CORPUSCULAR HGB CONC 32 g/dL (32-36); MEAN CORPUSCULAR VOLUME 91 fL (80-99); MEAN PLATELET VOLUME 10.3 fL (9.0-12.2); MONOCYTES # (AUTO) 0.1 10^3/uL (0.0-1.0); MONOCYTES % (AUTO) 1 % (0-12); NEUTROPHILS # (AUTO) 7.6 10^3/uL (1.8-7.8); NEUTROPHILS % (AUTO) 83 % (42-75); PLATELET COUNT 185 10^3/uL (130-400); WHITE BLOOD COUNT 9.2 10^3/uL (4.3-11.0)
[2022-02-27 03:20] LABS: BUN/CREATININE RATIO 18; CALCIUM 9.1 MG/DL (8.5-10.1); CARBON DIOXIDE 17 MMOL/L (21-32); CHLORIDE 106 MMOL/L (98-107); CREATININE SERUM 1.24 MG/DL (0.60-1.30); GFR ESTIMATED 70; GLUCOSE 236 MG/DL (70-105); POTASSIUM 4.5 MMOL/L (3.6-5.0); SODIUM 136 MMOL/L (135-145)
[2022-02-27] MEDS ORDERED: diphenhydrAMINE 25 MG TAB (BENADRYL) PO PRN (05:30)
[2022-02-27] MEDS ORDERED: LACTULOSE SYRUP 10GM/15ML (ENULOSE) 30ML UDC PO PRN (05:30)
[2022-02-27] MEDS ORDERED: LOPERAMIDE 2 MG (IMODIUM) TABLET PO PRN (05:30)
[2022-02-27] MEDS ORDERED: BISACODYL 10 MG SUPP (DULCOLAX) PR PRN (05:30)
[2022-02-27] MEDS ORDERED: MENTHOL/ZINC OXIDE (CALMOSEPTINE) 113 GM TUBE TP PRN ×2 (05:30→08:00)
[2022-02-27] MEDS ORDERED: HYDROcodone/APAP 5 MG/325 MG (LORTAB) TAB PO PRN (05:30)
[2022-02-27] MEDS ORDERED: DOCUSATE SODIUM 100 MG (COLACE) CAP PO PRN (05:30)
[2022-02-27] MEDS ORDERED: CALCIUM CARBONATE 500 MG (TUMS) TAB.CHEW PO PRN (05:30)
[2022-02-27] MEDS ORDERED: ALPRAZolam 0.25 MG (XANAX) TAB PO PRN (05:30)
[2022-02-27 05:44] LABS: ALBUMIN 3.9 GM/DL (3.2-4.5)
[2022-02-27 05:47] LABS: TOTAL PROTEIN 6.7 GM/DL (6.4-8.2)
[2022-02-27 05:48] LABS: BILIRUBIN,TOTAL 0.4 MG/DL (0.1-1.0)
[2022-02-27 05:52] LABS: BILIRUBIN,DIRECT 0.2 MG/DL (0.0-0.3); BILIRUBIN,INDIRECT 0.2 MG/DL
[2022-02-27] MEDS: CEFEPIME 1,000 MG/NS 50 ML IVPB IV SCH ×8 (05:57→22:46)
[2022-02-27] MEDS: methylPREDNISolone 40 MG/ML (Solu-MEDROL) VIAL IV SCH ×3 (05:57→22:38)
[2022-02-27] MEDS: CATHETER FLUSH 10 ML SYR IVP SCH ×3 (05:58→22:40)
[2022-02-27] MEDS: inSUlin ASPART (NovoLOG) 1 UNIT/0.01 ML (CHARGE PER UNIT) SC SCH ×4 (06:04→22:36)
--- NOTE | 2022-02-27 06:08 | Diagnostic Imaging Report ---
EXAMINATION: CT chest with intravenous contrast. TECHNIQUE: Multiple contiguous axial images were obtained through the chest after the uneventful administration of intravenous contrast. All CT scans use one or more of the following dose optimizing techniques: automated exposure control, MA and/or KvP adjustment based on patient size and exam type or iterative reconstruction. HISTORY: Shortness of breath. Pneumonia. COMPARISON: 03/13/2021. FINDINGS: The heart size is within normal limits. No pericardial effusion is present. There is no mediastinal, hilar, or axillary lymphadenopathy. The lungs demonstrate no pulmonary nodules or masses. Small amount of dependent opacities are seen in the right lung base. There are no focal areas of consolidation. No central endobronchial obstructing lesions are identified. There is no pleural effusion or pneumothorax. The osseous structures demonstrate no acute abnormalities. Limited views of the upper abdominal structures demonstrate no acute abnormalities. Nonobstructing calculus is seen in the mid right kidney. The gallbladder is surgically absent. Both adrenal glands are unremarkable. IMPRESSION: 1. Small amount of dependent opacities in the right lung base, similar to the prior exam and likely representing atelectasis/scarring. No new focal consolidations. 2. Stable nonobstructing calculus in the mid right kidney. Agree with overnight report. Dictated by: Dictated on workstation # [id number]
[2022-02-27] MEDS: RT-ALBUTEROL/IPRATROPIUM 3 ML (DUONEB) VIAL INH SCH ×4 (07:23→19:10)
[2022-02-27] MEDS: SENNA W/DOCUSATE (SENOKOT S) TABLET PO SCH ×2 (08:05→22:36)
[2022-02-27] MEDS: polyethylene glycoL POWDER 17 GM (MIRALAX) PACK PO SCH ×2 (08:05→22:35)
[2022-02-27] MEDS: ENOXAPARIN 60 MG/0.6 ML (LOVENOX) SYR SC SCH ×2 (08:05→22:37)
--- NOTE | 2022-02-27 11:21 | History & Physical-Hospitalist ---
[facility] 02/27/22 1121: History of Present Illness HPI/Chief Complaint Dov is a 51 y M with PMH of COPD, sleep apnea, HTN, DM, obesity. He presented to the ED 02/26 with SOA and intermittent substernal chest pain that he had for 30 minutes prior to arrival. He reports having an episode similar to this before with his afib but this feels somewhat different. He was diagnosed with RLL pneumonia at the beginning of January. CXR 02/26 with perihilar and basilar interstitial opacities with small left pleural effusion, findings can be seen with edema or pneumonia. Chest CT with small amount of dependent opacities in the right lung base, similar to the prior exam and likely representing atelectasis/scarring. No new focal consolidations. Dr. Lopez spoke with Dr. Hawkins in radiology who felt this was a benign process. Troponin and d-dimer were negative. He was started on Cefepime and duonebs. Patient is a current smoker. He is disabled. Today he reports his SOB is improved though he still has trouble catching his breath with moving around. He is able to move from bed to chair and go to the bathroom in his room today. His CP has resolved though now he complains of an intermittent ache in the RUQ. He is urinating without issue, had a BM this morning. Denies nausea, vomiting. Source: patient Exam Limitations: no limitations Date Seen 02/27/22 Time Seen by a Provider: 09:40 Attending Physician Nathaniel Martinez MD PCP Admitting Physician: Edwina Lopez DO Attending Physician: Edwina Lopez DO Referring Physician Date of Admission Feb 26, 2022 at 23:07 Home Medications & Allergies Home Medications Reviewed patient Home Medication Reconciliation performed by pharmacy medication reconciliations survey data technician and/or nursing. Patients Allergies have been reviewed. Allergies Allergies Coded Allergies No Known Drug Allergies (Unverified03/26/21) Past Mhioxxx-Cyvnkn-Qhnfou Hx Patient Social History Tobacco Use?: Yes Smoking Status: Current Everyday Smoker Smokeless Tobacco Frequency: Current Everyday User Substance use?: No Alcohol Use?: No Pt feels they are or have been: No Immunizations Up To Date Date of Influenza Vaccine: Dec 24, 2021 First/Initial COVID19 Vaccinat: JUNE 01, 2020 Second COVID19 Vaccination Ronald: JUNE 15, 2020 Tetanus Booster (TDap): Unknown Hepatitis A: No Hepatitis B: No PED Vaccines UTD: No Date of Pneumonia Vaccine: May 22, 2016 Seasonal Allergies Seasonal Allergies: No Current Status Advance Directives: No Communicates: Verbally Primary Language: Irish Preferred Spoken Language: Irish Is interpretation needed?: No Implanted or Applied Medical D: CPAP, Orthopedic hardware Past Medical History Surgeries: Gallbladder, Orthopedic, Renal COPD Currently Using CPAP: Yes Currently Using BIPAP: No High Cholesterol, Hypertension Neuropathy Sexually Transmitted Disease: No HIV/AIDS: No Benign Prostatic Hyperpl, Kidney Infection, Prostate Problems, Kidney Stones, Renal Failure Colitis, Gastroesophageal Reflux, Gall Bladder Disease Degenerate Disk Disease, Arthritis, Chronic Back Pain, Gout Diabetes, Non-Insulin dep Anxiety, Bipolar, Depression Blood Disorders: No Adverse Reaction/Blood Tranf: No PMHx: HTN NIDDM Restless Legs COPD Sleep apnea on cpap SurgHx: Back surgery Cholecystectomy Family Medical History Completed stroke DVT 19 MOTHER, , Onset:Unknown Diabetes mellitus 19 MOTHER, , Onset:Unknown G8 BROTHER, Onset:Unknown FH: gastric ulcer 19 FATHER, Onset:Unknown No Pertinent Family Hx, DVT/PE, Diabetes, GI Disease Review of Systems Constitutional: No chills, No fever Respiratory: No cough; dyspnea on exertion, short of breath Cardiovascular: No chest pain; edema Gastrointestinal: RUQ (ache); No constipation, No nausea, No vomiting Genitourinary: No decreased output, No dysuria Skin: No lesions, No rash Psychiatric/Neurological: Denies Headache Physical Exam Physical Exam Vital Signs Vital Signs - First Documented 02/27/22 02:01 O2 Flow Rate 21.00 Capillary Refill : Less Than 3 Seconds Height, Weight, BMI Height: 5'10.00" Weight: 330lbs. 3.0oz. 149.094888vs; 55.93 BMI Method:Stated General Appearance: No Apparent Distress, Obese HEENT: PERRL/EOMI, Moist Mucous Membranes Neck: Full Range of Motion, Non Tender, Supple Respiratory: Chest Non Tender, No Accessory Muscle Use, No Respiratory Distress, Decreased Breath Sounds (distant) Cardiovascular: No JVD, Normal Peripheral Pulses, Tachycardia Gastrointestinal: Normal Bowel Sounds, Non Tender, Soft Extremity: Non Tender, No Calf Tenderness, Pedal Edema, Swelling (SCDs in place) Neurologic/Psychiatric: Alert, Oriented x3, Normal Mood/Affect Skin: Normal Color, Warm/Dry Results Results/Procedures Labs Laboratory Tests 02/26/22 20:10 02/26/22 20:46 02/27/22 02:46 Patient resulted labs reviewed. Imaging Date of Exam:02/26/22 CT CHEST W EXAMINATION: CT chest with intravenous contrast. TECHNIQUE: Multiple contiguous axial images were obtained through the chest after the uneventful administration of intravenous contrast. All CT scans use one or more of the following dose optimizing techniques: automated exposure control, MA and/or KvP adjustment based on patient size and exam type or iterative reconstruction. HISTORY: Shortness of breath. Pneumonia. COMPARISON: 03/13/2021. FINDINGS: The heart size is within normal limits. No pericardial effusion is present. There is no mediastinal, hilar, or axillary lymphadenopathy. The lungs demonstrate no pulmonary nodules or masses. Small amount of dependent opacities are seen in the right lung base. There are no focal areas of consolidation. No central endobronchial obstructing lesions are identified. There is no pleural effusion or pneumothorax. The osseous structures demonstrate no acute abnormalities. Limited views of the upper abdominal structures demonstrate no acute abnormalities. Nonobstructing calculus is seen in the mid right kidney. The gallbladder is surgically absent. Both adrenal glands are unremarkable. IMPRESSION: 1. Small amount of dependent opacities in the right lung base, similar to the prior exam and likely representing atelectasis/scarring. No new focal consolidations. 2. Stable nonobstructing calculus in the mid right kidney. Assessment/Plan Admission Diagnosis COPD Exacerbation Admission Status: Observation Assessment and Plan COPD Exacerbation Chest pain-resolved HTN Diabetes Chronic AFib Obesity Current smoker Tachycardia CLIFTON on CPAP Supportive care SoluMedrol Nebulizer treatments Sliding scale insulin Restart home meds Radiology consulted for RLL opacities on CT, Dr. Hawkins felt it was benign process EDWINA LOPEZ DO 02/28/22 0502: History of Present Illness Source: patient Exam Limitations: no limitations Past Syidhcx-Qdedqj-Nikmss Hx Patient Social History Marrital Status: single Employed/Student: unemployed Smoking Status: Current Everyday Smoker Past Medical History Sleep Apnea, COPD High Cholesterol, Hypertension Benign Prostatic Hyperpl, Renal Failure Family Medical History Completed stroke DVT 19 MOTHER, , Onset:Unknown Diabetes mellitus 19 MOTHER, , Onset:Unknown G8 BROTHER, Onset:Unknown FH: gastric ulcer 19 FATHER, Onset:Unknown Review of Systems Constitutional: see HPI Respiratory: dyspnea on exertion, short of breath Physical Exam Physical Exam General Appearance: No Apparent Distress, Chronically ill, Obese Respiratory: No Accessory Muscle Use, No Respiratory Distress, Decreased Breath Sounds (distant) Assessment/Plan Admission Diagnosis Assessment: Exacerbation COPD Obesity Chronic kidney disease Plan: Protocol meds Supportive care Admission Status: Inpatient Order (span 2 midnights) Reason for Inpatient Admission: Acute on chronic respiratory failure Supervisory-Addendum Brief Verification & Attestation Participated in pt care: history, MDM, physical Personally performed: exam, history, MDM, supervision of care Care discussed with: Medical Student Procedures: n/a Results interpretation: Verified all documentation Verification and Attestation of Medical Student E/M Service A medical student performed and documented this service in my presence. I reviewed and verified all information documented by the medical student and made modifications to such information, when appropriate. I personally performed the physical exam and medical decision making. Edwina Lopez, Feb 28, 2022,04:58 BERT HYLTON Feb 27, 2022 11:21 EDWINA LOPEZ DO Feb 28, 2022 05:02
[2022-02-28] VITALS (7 sets, daily range): BP systolic 118–142; BP diastolic 70–94
[2022-02-28] MEDS ORDERED: NS (IVPB) 50 ML ONE ×2 (05:15→05:16)
[2022-02-28] MEDS: CEFEPIME 1,000 MG/NS 50 ML IVPB IV SCH ×6 (06:00→16:21)
[2022-02-28 06:55] LABS: BASOPHILS # (AUTO) 0.1 10^3/uL (0.0-0.1); BASOPHILS % (AUTO) 0 % (0-10); EOSINOPHILS % (AUTO) 0 % (0-10); HEMATOCRIT 45 % (40-54); HEMOGLOBIN 14.7 g/dL (13.3-17.7); LYMPHOCYTES # (AUTO) 1.2 10^3/uL (1.0-4.0); LYMPHOCYTES % (AUTO) 7 % (12-44); MEAN CORPUSCULAR HEMOGLOBIN 30 pg (25-34); MEAN CORPUSCULAR HGB CONC 33 g/dL (32-36); MEAN CORPUSCULAR VOLUME 89 fL (80-99); MEAN PLATELET VOLUME 10.9 fL (9.0-12.2); MONOCYTES # (AUTO) 0.6 10^3/uL (0.0-1.0); MONOCYTES % (AUTO) 3 % (0-12); NEUTROPHILS # (AUTO) 15.6 10^3/uL (1.8-7.8); NEUTROPHILS % (AUTO) 88 % (42-75); PLATELET COUNT 212 10^3/uL (130-400); WHITE BLOOD COUNT 17.7 10^3/uL (4.3-11.0)
[2022-02-28] MEDS: RT-ALBUTEROL/IPRATROPIUM 3 ML (DUONEB) VIAL INH SCH ×4 (07:08→18:31)
[2022-02-28 07:20] LABS: BAND NEUTROPHILS 1 %; LYMPHOCYTES % (MANUAL) 9 %; MONOCYTES % (MANUAL) 3 %; NEUTROPHILS % (MANUAL) 87 %
[2022-02-28 07:21] LABS: RBC MORPH NORMAL
[2022-02-28] MEDS: methylPREDNISolone 40 MG/ML (Solu-MEDROL) VIAL IV SCH ×2 (07:34→20:57)
[2022-02-28] MEDS: CATHETER FLUSH 10 ML SYR IVP SCH ×3 (07:34→20:59)
[2022-02-28] MEDS: polyethylene glycoL POWDER 17 GM (MIRALAX) PACK PO SCH ×2 (07:37→20:57)
[2022-02-28 07:42] LABS: ALBUMIN 3.8 GM/DL (3.2-4.5); BILIRUBIN,TOTAL 0.3 MG/DL (0.1-1.0); CREATININE SERUM 1.14 MG/DL (0.60-1.30); POTASSIUM 4.2 MMOL/L (3.6-5.0); TOTAL PROTEIN 6.5 GM/DL (6.4-8.2)
[2022-02-28] MEDS: inSUlin ASPART (NovoLOG) 1 UNIT/0.01 ML (CHARGE PER UNIT) SC SCH ×4 (07:51→20:58)
[2022-02-28] MEDS: SENNA W/DOCUSATE (SENOKOT S) TABLET PO SCH ×2 (07:51→20:58)
[2022-02-28] MEDS: APIXABAN 5 MG (ELIQUIS) TABLET PO SCH ×2 (07:51→20:57)
[2022-02-28] MEDS ORDERED: ARIP30TA21 PO (08:48)
[2022-02-28] MEDS ORDERED: AMLO-250 PO (08:48)
[2022-02-28] MEDS ORDERED: APIX5TAB PO (08:48)
[2022-02-28] MEDS ORDERED: CYCL10TA25 PO (08:48)
[2022-02-28] MEDS ORDERED: MULT-1136 PO (08:48)
[2022-02-28] MEDS ORDERED: MTP100TCR PO (08:48)
--- NOTE | 2022-02-28 13:04 | Progress Note - Hospitalist ---
[facility] 02/28/22 1303: Subjective HPI/CC On Admission Date Seen by Provider: Feb 28, 2022 Time Seen by Provider: 11:05 Subjective/Events-last exam Dov is a 51 y M here for exacerbation of COPD. Today he reports feeling less short of breath and is not having any chest pain. He believes the breathing treatments are helping. He had some pain with urination yesterday but this resolved. Denies hematuria. His last BM was yesterday. He is using CPAP to sleep here as he usually uses it at home. Labs significant for elevated WBC count at 17.7 from 9.2 yesterday, likely due to steroids. Review of Systems General: No Chills, No Night Sweats Pulmonary: Dyspnea; No Cough Cardiovascular: No: Chest Pain, Palpitations Gastrointestinal: No: Nausea, Vomiting, Abdominal Pain Genitourinary: No Dysuria, No Frequency, No Hematuria Objective Exam Vital Signs Vital Signs Date Time Temp Pulse Resp B/P (MAP) Pulse Ox O2 Delivery O2 Flow Rate FiO2 02/28/22 11:24 36.2 74 18 142/83 (102) 92 Nasal Cannula 1.00 Capillary Refill : Less Than 3 Seconds General Appearance: No Apparent Distress, Chronically ill, Obese HEENT: PERRL/EOMI, Pharynx Normal, Moist Mucous Membranes Neck: Full Range of Motion Respiratory: Chest Non Tender, No Accessory Muscle Use, No Respiratory Distress, Decreased Breath Sounds (distant) Cardiovascular: Normal Peripheral Pulses, Tachycardia Gastrointestinal: Normal Bowel Sounds, Non Tender, Soft Extremity: Normal Capillary Refill, Non Tender, No Calf Tenderness Neurologic/Psychiatric: Alert, Oriented x3, Normal Mood/Affect Skin: Normal Color, Warm/Dry Results/Procedures Lab Laboratory Tests 02/28/22 05:54 Patient resulted labs reviewed. Assessment/Plan Assessment and Plan Assess & Plan/Chief Complaint COPD Exacerbation CKD Chest pain-resolved HTN Diabetes Chronic AFib Obesity Current smoker Tachycardia CLIFTON on CPAP Leukocytosis likely 2/2 steroid use Supportive care Decrease steroid dose as he is clinically improving Nebulizer treatments Sliding scale insulin Restart home meds Plan to d/c tomorrow, working with nephrology social worker on plan as he will not have a ride home XAVI LOPEZ DO 03/01/22 8032: Supervisory-Addendum Brief Verification & Attestation Participated in pt care: history, MDM, physical Personally performed: exam, history, MDM, supervision of care Care discussed with: Medical Student Procedures: n/a Results interpretation: Verified all documentation Verification and Attestation of Medical Student E/M Service A medical student performed and documented this service in my presence. I reviewed and verified all information documented by the medical student and made modifications to such information, when appropriate. I personally performed the physical exam and medical decision making. Xavi Lopez Mar 01, 2022,04:52 BERT HYLTON Feb 28, 2022 13:03 XAVI LOPEZ DO Mar 01, 2022 04:52
[2022-03-01] MEDS: CEFEPIME 1,000 MG/NS 50 ML IVPB IV SCH ×6 (00:06→11:44)
[2022-03-01 03:11] VITALS: BP 130/88
[2022-03-01] MEDS: CATHETER FLUSH 10 ML SYR IVP SCH ×2 (05:55→11:45)
[2022-03-01] MEDS: inSUlin ASPART (NovoLOG) 1 UNIT/0.01 ML (CHARGE PER UNIT) SC SCH ×2 (05:55→11:44)
[2022-03-01 06:26] LABS: BASOPHILS % (AUTO) 0 % (0-10); EOSINOPHILS % (AUTO) 0 % (0-10); HEMATOCRIT 43 % (40-54); HEMOGLOBIN 14.5 g/dL (13.3-17.7); LYMPHOCYTES # (AUTO) 1.4 10^3/uL (1.0-4.0); LYMPHOCYTES % (AUTO) 9 % (12-44); MEAN CORPUSCULAR HEMOGLOBIN 30 pg (25-34); MEAN CORPUSCULAR HGB CONC 34 g/dL (32-36); MEAN CORPUSCULAR VOLUME 89 fL (80-99); MEAN PLATELET VOLUME 10.8 fL (9.0-12.2); MONOCYTES # (AUTO) 0.6 10^3/uL (0.0-1.0); MONOCYTES % (AUTO) 4 % (0-12); NEUTROPHILS # (AUTO) 12.5 10^3/uL (1.8-7.8); NEUTROPHILS % (AUTO) 84 % (42-75); PLATELET COUNT 203 10^3/uL (130-400)
[2022-03-01 06:33] LABS: ALBUMIN 3.8 GM/DL (3.2-4.5); POTASSIUM 4.4 MMOL/L (3.6-5.0)
[2022-03-01 06:34] LABS: CALCIUM 8.7 MG/DL (8.5-10.1)
[2022-03-01 06:36] LABS: TOTAL PROTEIN 6.3 GM/DL (6.4-8.2)
[2022-03-01 06:37] LABS: BILIRUBIN,TOTAL 0.3 MG/DL (0.1-1.0)
[2022-03-01 06:39] LABS: CREATININE SERUM 1.09 MG/DL (0.60-1.30)
[2022-03-01] MEDS: RT-ALBUTEROL/IPRATROPIUM 3 ML (DUONEB) VIAL INH SCH (06:44)
[2022-03-01 07:20] VITALS: BP 145/81
[2022-03-01] MEDS: polyethylene glycoL POWDER 17 GM (MIRALAX) PACK PO SCH (08:26)
[2022-03-01] MEDS: methylPREDNISolone 40 MG/ML (Solu-MEDROL) VIAL IV SCH (08:26)
[2022-03-01] MEDS: SENNA W/DOCUSATE (SENOKOT S) TABLET PO SCH (08:26)
[2022-03-01] MEDS: APIXABAN 5 MG (ELIQUIS) TABLET PO SCH (08:26)
[2022-03-01 08:42] VITALS: BP 145/81
[2022-03-01 11:10] VITALS: BP 160/95
[2022-03-01] MEDS ORDERED: PRED10TA22 PO (12:13)
[2022-03-01] MEDS ORDERED: CEFD300C3 PO (12:13)
--- NOTE | 2022-03-01 12:14 | Discharge Summary ---
Discharge Summary Hospital Course Was the Problem List Reviewed?: Yes Problems/Dx: (1) Acute exacerbation of chronic obstructive pulmonary disease (COPD) Status: Acute Hospital Course Date of Admission: Feb 26, 2022 at 23:07 Admission Diagnosis : Family Physician/Provider: Nathaniel Martienz MD Date of Discharge: 03/01/22 Discharge Diagnosis: [ ] Hospital Course: Dov is a 51 y M with PMH of COPD, sleep apnea, HTN, DM, obesity. He presented to the ED 02/26 with SOA and intermittent substernal chest pain that he had for 30 minutes prior to arrival. He reported having an episode similar to this before with his afib but this felt somewhat different. He was diagnosed with RLL pneumonia at the beginning of January. CXR 02/26 with perihilar and basilar interstitial opacities with small left pleural effusion, findings can be seen with edema or pneumonia. Chest CT with small amount of dependent opacities in the right lung base, similar to the prior exam and likely representing atelectasis/scarring. No new focal consolidations. Dr. Lopez spoke with Dr. Hawkins in radiology who felt this was a benign process. Troponin and d-dimer were negative. He was started on Cefepime and duonebs as well as steroids. Labs were significant for leukocytosis likely due to steroids. Today patient reported feeling his breathing was much improved and is not using supplemental oxygen. He was ready to go home. He was up walking the halls with a walker today. Patient is a current smoker. He will follow up with his PCP Dr. Renae upon discharge. BERT HYLTON Labs and Pending Lab Test: Laboratory Tests 02/28/22 16:02: Glucometer 247H 02/28/22 20:37: Glucometer 225H 03/01/22 05:06: Glucometer 211H 03/01/22 05:45: White Blood Count 15.0H, Red Blood Count 4.88, Hemoglobin 14.5, Hematocrit 43, Mean Corpuscular Volume 89, Mean Corpuscular Hemoglobin 30, Mean Corpuscular Hemoglobin Concent 34, Red Cell Distribution Width 16.0H, Platelet Count 203, Mean Platelet Volume 10.8, Immature Granulocyte % (Auto) 3, Neutrophils (%) (Auto) 84H, Lymphocytes (%) (Auto) 9L, Monocytes (%) (Auto) 4, Eosinophils (%) (Auto) 0, Basophils (%) (Auto) 0, Neutrophils # (Auto) 12.5H, Lymphocytes # (Auto) 1.4, Monocytes # (Auto) 0.6, Eosinophils # (Auto) 0.0, Basophils # (Auto) 0.0, Immature Granulocyte # (Auto) 0.4H, Sodium Level 137, Potassium Level 4.4, Chloride Level 102, Carbon Dioxide Level 22, Anion Gap 13, Blood Urea Nitrogen 28H, Creatinine 1.09, Estimat Glomerular Filtration Rate 82, BUN/Creatinine Ratio 26, Glucose Level 198H, Calcium Level 8.7, Corrected Calcium 8.9, Total Bilirubin 0.3, Aspartate Amino Transf (AST/SGOT) 26, Alanine Aminotransferase (ALT/SGPT) 27, Alkaline Phosphatase 56, Total Protein 6.3L, Albumin 3.8 03/01/22 10:47: Glucometer 192H Microbiology 02/26/22 Urine Culture - Final, Complete Staphylococcus epidermidis Coryneform bacteria Home Meds Active Reported Amlodipine Besylate 5 Mg Tablet 5 Mg PO DAILY Aripiprazole 30 Mg Tablet 30 Mg PO DAILY Eliquis (Apixaban) 5 Mg Tablet 5 Mg PO BID Metoprolol Succinate 100 Mg Tab.er.24h 100 Mg PO DAILY Cyclobenzaprine HCl 10 Mg Tablet 10 Mg PO HS Multivitamin 1 Each Tablet 1 Each PO DAILY Ventolin Hfa (Albuterol Sulfate) 1 Puff Puff 2 Puff INH Q4H PRN Flomax (Tamsulosin HCl) 0.4 Mg Cap 0.4 Mg PO HS Metformin HCl 1,000 Mg Tablet 1,000 Mg PO BID Potassium Chloride 20 Meq Tab.er.prt 40 Meq PO BID TAKES 2 (20MEQ) TABLETS Baclofen 10 Mg Tablet 10 Mg PO TID Gabapentin 600 Mg Tablet 600 Mg PO TID Duloxetine HCl 60 Mg Capsule.dr 120 Mg PO DAILY TAKES 2 (60MG) CAPSULES Tylenol Extra Strength (Acetaminophen) 500 Mg Tablet 1,000 Mg PO Q4H PRN Atorvastatin Calcium 40 Mg Tablet 40 Mg PO HS Famotidine 20 Mg Tablet 20 Mg PO HS Fenofibrate (Fenofibrate Nanocrystallized) 145 Mg Tablet 145 Mg PO HS Ropinirole HCl 5 Mg Tablet 5 Mg PO TID Assessment/Pt Instructions PCP in 1 week Discharge Planning: <30 minutes discharge planning Discharge Instructions Discharge Diet: No Restrictions Activity as Tolerated: Yes Discharge Physical Examination Vital Signs Vital Signs Date Time Temp Pulse Resp B/P (MAP) Pulse Ox O2 Delivery O2 Flow Rate FiO2 03/01/22 11:10 36.2 105 18 160/95 (116) 92 Room Air 03/01/22 08:42 21 03/01/22 03:11 21.00 General Appearance: No Apparent Distress, WD/WN, Chronically ill Respiratory: Lungs Clear, Normal Breath Sounds Allergies: Coded Allergies: No Known Drug Allergies (Unverified , 03/26/21) Discharge Summary Date of Admission Feb 26, 2022 at 23:07 Date of Discharge Discharge Date: Mar 01, 2022 Admission Diagnosis Assessment: Exacerbation COPD Obesity Chronic kidney disease Plan: Protocol meds Supportive care XAVI LOPEZ DO Mar 01, 2022 12:14
--- NOTE | 2022-03-01 12:32 | Progress Note ---
BERT HYLTON 03/01/22 1232: Progress Note Dov is a 51 y M with PMH of COPD, sleep apnea, HTN, DM, obesity. He presented to the ED 02/26 with SOA and intermittent substernal chest pain that he had for 30 minutes prior to arrival. He reported having an episode similar to this before with his afib but this felt somewhat different. He was diagnosed with RLL pneumonia at the beginning of January. CXR 02/26 with perihilar and basilar interstitial opacities with small left pleural effusion, findings can be seen with edema or pneumonia. Chest CT with small amount of dependent opacities in the right lung base, similar to the prior exam and likely representing atelectasis/scarring. No new focal consolidations. Dr. Lopez spoke with Dr. Hawkins in radiology who felt this was a benign process. Troponin and d-dimer were negative. He was started on Cefepime and duonebs as well as steroids. Labs were significant for leukocytosis likely due to steroids. Today patient reported feeling his breathing was much improved and is not using supplemental oxygen. He was ready to go home. He was up walking the halls with a walker today. Patient is a current smoker. He will follow up with his PCP Dr. Renae upon discharge. EDWINA LOPEZ DO 03/01/222126: Supervisory-Addendum Brief Verification & Attestation Participated in pt care: history, MDM, physical Personally performed: exam, history, MDM, supervision of care Care discussed with: Medical Student Procedures: n/a Results interpretation: Verified all documentation Verification and Attestation of Medical Student E/M Service A medical student performed and documented this service in my presence. I reviewed and verified all information documented by the medical student and made modifications to such information, when appropriate. I personally performed the physical exam and medical decision making. Edwina Lopez, Mar 01, 2022,21:27 BERT HYLTON Mar 01, 2022 12:32 EDWINA LOPEZ DO Mar 01, 2022 21:27
[2022-03-01 13:56] VITALS: BP 160/95
[2022-03-01] MEDS ORDERED: RT-ALBUTEROL/IPRATROPIUM 3 ML (DUONEB) VIAL INH SCH (21:00)
== END 2022-03-01 14:07 | disposition home or self-care (01) | DRG 190 ==
LOC: EDUNIT# 19:53 → ER 19:54 → 4TH 23:07
PROVIDERS: ADMIT Internal Medicine; ATTEND Internal Medicine
PROC: 5A09357 Assistance with Respiratory Ventilation, Less than 24 Consecutive Hours, Continuous Positive Airway Pressure (ICD-10-PCS; principal; 2022-02-27)
DX: J44.1 Chronic obstructive pulmonary disease with (acute) exacerbation (principal); J18.9 Pneumonia, unspecified organism; I48.20 Chronic atrial fibrillation, unspecified; Z68.43 Body mass index [BMI] 50.0-59.9, adult; J44.0 Chronic obstructive pulmonary disease with (acute) lower respiratory infection; E66.9 Obesity, unspecified; N18.9 Chronic kidney disease, unspecified; E11.22 Type 2 diabetes mellitus with diabetic chronic kidney disease; F17.210 Nicotine dependence, cigarettes, uncomplicated; E78.00 Pure hypercholesterolemia, unspecified; N40.0 Benign prostatic hyperplasia without lower urinary tract symptoms; K21.9 Gastro-esophageal reflux disease without esophagitis; M19.90 Unspecified osteoarthritis, unspecified site; G89.29 Other chronic pain; M54.9 Dorsalgia, unspecified; F41.9 Anxiety disorder, unspecified; F31.9 Bipolar disorder, unspecified; G25.81 Restless legs syndrome; M10.9 Gout, unspecified; G47.33 Obstructive sleep apnea (adult) (pediatric); R00.0 Tachycardia, unspecified; D72.829 Elevated white blood cell count, unspecified; T38.0X5A Adverse effect of glucocorticoids and synthetic analogues, initial encounter; Z79.82 Long term (current) use of aspirin; Z79.84 Long term (current) use of oral hypoglycemic drugs; Z79.899 Other long term (current) drug therapy
CPT/HCPCS: 36415; 71045; 71260; 80048; 80053; 80076; 81000; 82805; 82947; 83690; 83735; 83880; 84484; 85007; 85025; 85027; 85379; 85610; 85730; 87077; 87088; 87186; 87449; 93005; 93041; 94640; 94660; 94760; 96361; 96365; 96375

== ENCOUNTER 2022-03-20 16:48 | Observation (INO) | payer MEDICAID ==
[~2022-03-20] VITALS: Ht 178 cm; Wt 170.8 kg
[~2022-03-20 16:48] MED LIST changes: +AMLO-250 PO; +MULT-1136 PO; +PRED10TA22 PO
[2022-03-20] MEDS ORDERED: meTOprolol 5 MG/5 ML (LOPRESSOR) VIAL IV ONE (17:15)
[2022-03-20 17:21] LABS: BASOPHILS # (AUTO) 0.1 10^3/uL (0.0-0.1); BASOPHILS % (AUTO) 1 % (0-10); EOSINOPHILS # (AUTO) 0.2 10^3/uL (0.0-0.3); EOSINOPHILS % (AUTO) 2 % (0-10); HEMATOCRIT 45 % (40-54); HEMOGLOBIN 15.1 g/dL (13.3-17.7); LYMPHOCYTES # (AUTO) 2.1 10^3/uL (1.0-4.0); LYMPHOCYTES % (AUTO) 24 % (12-44); MEAN CORPUSCULAR HEMOGLOBIN 30 pg (25-34); MEAN CORPUSCULAR HGB CONC 33 g/dL (32-36); MEAN CORPUSCULAR VOLUME 90 fL (80-99); MEAN PLATELET VOLUME 10.8 fL (9.0-12.2); MONOCYTES # (AUTO) 0.7 10^3/uL (0.0-1.0); MONOCYTES % (AUTO) 8 % (0-12); NEUTROPHILS # (AUTO) 5.6 10^3/uL (1.8-7.8); NEUTROPHILS % (AUTO) 65 % (42-75); PLATELET COUNT 188 10^3/uL (130-400); WHITE BLOOD COUNT 8.7 10^3/uL (4.3-11.0)
--- NOTE | 2022-03-20 17:21 | ED Chest Pain ---
General Chief Complaint: Chest Pain Stated Complaint: SOB, CHEST PAIN Nursing Triage Note: PT TO ED BY EMS FROM HOME WITH C/O CP, SOB. 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 PT WAS GIVEN 1 IN NITROPASTE EN ROUTE BY EMS, TAKING CP FROM 5 TO 3. REPORTS PAIN DOES NOT RADIATE, DENIES DIZZINESS OR NAUSEA. STATES HE SKIPPED HIS MEDS THIS MORNING BC HE SLEPT IN. Source: patient Exam Limitations: no limitations History of Present Illness Date Seen by Provider: Mar 20, 2022 Time Seen by Provider: 16:55 Initial Comments 51-year-old male presents via EMS to the ER with complaints of shortness of air and chest pain starting approximately 1 hour ago while resting in bed. Reports the chest pain starts on his right side and radiates towards the center of his chest. EMS gave aspirin and placed Nitropaste on chest, states that chest pain has improved, but is still present. He was admitted at the end of January for right lower lobe pneumonia, states he was sent home on antibiotic and has completed the antibiotic. Complains of dizziness, denies headache, denies fevers/chills, denies abdominal pain, denies nausea/vomiting, denies edema. Reports a cough, but states this is normal for his COPD denies any changes to his cough. Timing/Duration: 1 hour Allergies and Home Medications Allergies Coded Allergies: No Known Drug Allergies (Unverified , 03/26/21) Patient Home Medication List Home Medication List Reviewed: Yes Acetaminophen (Tylenol Extra Strength) 500 Mg Tablet, 1,000 MG PO Q4H PRN for PAIN-MILD (1-4), (Reported) Entered as Reported by: NEPTALI PUCKETT on 01/15/19 1059 Albuterol Sulfate (Ventolin Hfa) 1 Puff Puff, 2 PUFF INH Q4H PRN for SHORTNESS OF BREATH, (Reported) Entered as Reported by: KERI BULLOCK on 01/25/22 1518 Amlodipine Besylate (Amlodipine Besylate) 5 Mg Tablet, 5 MG PO DAILY, (Reported) Entered as Reported by: BALDEV DOWNS on 02/28/22 0848 Apixaban (Eliquis) 5 Mg Tablet, 5 MG PO BID, (Reported) Entered as Reported by: BALDEV DOWNS on 02/28/22 0848 Aripiprazole (Aripiprazole) 30 Mg Tablet, 30 MG PO DAILY, (Reported) Entered as Reported by: BALDEV DOWNS on 02/28/22 0848 Atorvastatin Calcium (Atorvastatin Calcium) 40 Mg Tablet, 40 MG PO HS, (Reported) Entered as Reported by: NEPTALI PUCKETT on 01/15/19 1059 Baclofen (Baclofen) 10 Mg Tablet, 10 MG PO TID, (Reported) Entered as Reported by: BALDEV DOWNS on 01/07/22914 Cefdinir (Cefdinir) 300 Mg Capsule, 300 MG PO BID Prescribed by: XAVI LOPEZ on 03/01/22 1213 Cyclobenzaprine HCl (Cyclobenzaprine HCl) 10 Mg Tablet, 10 MG PO HS, (Reported) Entered as Reported by: BALDEV DOWNS on 02/28/22847 Duloxetine HCl (Duloxetine HCl) 60 Mg Capsule.dr, 120 MG PO DAILY, (Reported) Entered as Reported by: KERI BULLOCK on 05/09/20 1004 Famotidine (Famotidine) 20 Mg Tablet, 20 MG PO HS, (Reported) Entered as Reported by: NEPTALI PUCKETT on 01/15/19 1059 Fenofibrate Nanocrystallized (Fenofibrate) 145 Mg Tablet, 145 MG PO HS, (Reported) Entered as Reported by: NEPTALI PUCKETT on 01/15/19 1059 Gabapentin (Gabapentin) 600 Mg Tablet, 600 MG PO TID, (Reported) Entered as Reported by: KERI BULLOCK on 05/09/20 1008 Metformin HCl (Metformin HCl) 1,000 Mg Tablet, 1,000 MG PO BID, (Reported) Entered as Reported by: BALDEV DOWNS on 01/07/22914 Metoprolol Succinate (Metoprolol Succinate) 100 Mg Tab.er.24h, 100 MG PO DAILY, (Reported) Entered as Reported by: BALDEV DOWNS on 02/28/22847 Multivitamin (Multivitamin) 1 Each Tablet, 1 EACH PO DAILY, (Reported) Entered as Reported by: BALDEV DOWNS on 02/28/22847 Potassium Chloride (Potassium Chloride) 20 Meq Tab.er.prt, 40 MEQ PO BID, (Reported) Entered as Reported by: BALDEV DOWNS on 01/07/22914 Prednisone (Prednisone) 10 Mg Tab.ds.pk, 10 MG PO DAILY Prescribed by: XAVI LOPEZ on 03/01/22 1213 Ropinirole HCl (Ropinirole HCl) 5 Mg Tablet, 5 MG PO TID, (Reported) Entered as Reported by: SHANNAN DIAZ on 05/22/18 0604 Tamsulosin HCl (Flomax) 0.4 Mg Cap, 0.4 MG PO HS, (Reported) Entered as Reported by: BALDEV DOWNS on 01/07/22 0915 Review of Systems Review of Systems Constitutional: see HPI Past W[place]et[place]-Nbutnw-Hbevwm Hx Patient Social History Tobacco Use?: Yes Tobacco type used: Cigars Smoking Status: Current Everyday Smoker Use of E-Cig and/or Vaping dev: No Substance use?: No Alcohol Use?: No Pt feels they are or have been: No Immunizations Up To Date Tetanus Booster (TDap): Less than 5yrs PED Vaccines UTD: No Influenza Vaccine Up-to-Date: Yes; Up-to-Date First/Initial COVID19 Vaccinat: JUNE 01, 2020 Second COVID19 Vaccination Ronald: JUNE 15, 2020 Third COVID19 Vaccination Date: JUNE 01, 2020 Seasonal Allergies Seasonal Allergies: No Past Medical History Surgery/Hospitalization HX: LEFT URETERAL STENTBACK SURGERY 2003 PMH: AKF, ENTERCOLITIS, SEPSIS, DEPRESSION, SLEEP APNEA, UTI, HTN, PULMONARY HTN, COPD, DM2, UTI, GERD, BPH, AFIB Surgeries: Yes Gallbladder, Orthopedic, Renal Respiratory: Yes Sleep Apnea, COPD Currently Using CPAP: Yes Currently Using BIPAP: No Cardiac: Yes (PULMONARY HTN) High Cholesterol, Hypertension Neurological: Yes Neuropathy Reproductive Disorders: No Sexually Transmitted Disease: No HIV/AIDS: No Genitourinary: Yes (URETERAL STENTS) Benign Prostatic Hyperpl, Renal Failure Gastrointestinal: Yes (S/P EVELIO) Colitis, Gastroesophageal Reflux, Gall Bladder Disease Musculoskeletal: Yes (BACK SX 2003;RESTLESS LEG SYNDROME) Degenerate Disk Disease, Arthritis, Chronic Back Pain, Gout Endocrine: Yes (MORBID OBESITY; ORAL MEDICATION FOR DIABETES) Diabetes, Non-Insulin dep HEENT: Yes Cancer: No Psychosocial: Yes (BIPOLAR, POLYSUBSTANCE ABUSE) Anxiety, Bipolar, Depression Integumentary: No Blood Disorders: No Adverse Reaction/Blood Tranf: No Family Medical History Completed stroke DVT 19 MOTHER, , Onset:Unknown Diabetes mellitus 19 MOTHER, , Onset:Unknown G8 BROTHER, Onset:Unknown FH: gastric ulcer 19 FATHER, Onset:Unknown No Pertinent Family Hx, DVT/PE, Diabetes, GI Disease Physical Exam Vital Signs Vital Signs - First Documented 03/20/22 16:51 Temp 37.0 Pulse 121 Resp 21 B/P (MAP) 201/134 (156) Pulse Ox 95 O2 Delivery Room Air Capillary Refill : Height, Weight, BMI Height: 5'10.00" Weight: 330lbs. 3.0oz. [id number]; 54.00 BMI Method:Stated General Appearance: No Apparent Distress, WD/WN Neck: Normal Inspection, Supple Respiratory: No Chest Non Tender; Decreased Breath Sounds (BLL); No Respiratory Distress Cardiovascular: No Edema, Irregularly Irregular, Tachycardia Gastrointestinal: Soft, Tenderness (RUQ) Extremity: Normal Inspection, Non Tender Neurologic/Psychiatric: Alert, Oriented x3, Normal Mood/Affect Skin: Normal Color, Warm/Dry Progress/Results/Core Measures Results/Orders Lab Results Laboratory Tests Test 03/20/22 16:58 03/20/22 17:43 Range/Units White Blood Count 8.7 4.3-11.0 10^3/uL Red Blood Count 5.01 4.30-5.52 10^6/uL Hemoglobin 15.1 13.3-17.7 g/dL Hematocrit 45 40-54 % Mean Corpuscular Volume 90 80-99 fL Mean Corpuscular Hemoglobin 30 25-34 pg Mean Corpuscular Hemoglobin Concent 33 32-36 g/dL Red Cell Distribution Width 16.7 H 10.0-14.5 % Platelet Count 188 130-400 10^3/uL Mean Platelet Volume 10.8 9.0-12.2 fL Immature Granulocyte % (Auto) 1 % Neutrophils (%) (Auto) 65 42-75 % Lymphocytes (%) (Auto) 24 12-44 % Monocytes (%) (Auto) 8 0-12 % Eosinophils (%) (Auto) 2 0-10 % Basophils (%) (Auto) 1 0-10 % Neutrophils # (Auto) 5.6 1.8-7.8 10^3/uL Lymphocytes # (Auto) 2.1 1.0-4.0 10^3/uL Monocytes # (Auto) 0.7 0.0-1.0 10^3/uL Eosinophils # (Auto) 0.2 0.0-0.3 10^3/uL Basophils # (Auto) 0.1 0.0-0.1 10^3/uL Immature Granulocyte # (Auto) 0.1 0.0-0.1 10^3/uL Prothrombin Time 12.2 12.2-14.7 SEC INR Comment 0.9 0.8-1.4 Activated Partial Thromboplast Time 30 24-35 SEC D-Dimer < 0.27 0.00-0.49 UG/ML Sodium Level 142 135-145 MMOL/L Potassium Level 3.8 3.6-5.0 MMOL/L Chloride Level 108 H 98-107 MMOL/L Carbon Dioxide Level 22 21-32 MMOL/L Anion Gap 12 5-14 MMOL/L Blood Urea Nitrogen 15 7-18 MG/DL Creatinine 0.98 0.60-1.30 MG/DL Estimat Glomerular Filtration Rate 93 BUN/Creatinine Ratio 15 Glucose Level 92 70-105 MG/DL Calcium Level 9.6 8.5-10.1 MG/DL Corrected Calcium 9.8 8.5-10.1 MG/DL Magnesium Level 2.0 1.6-2.4 MG/DL Total Bilirubin 0.4 0.1-1.0 MG/DL Aspartate Amino Transf (AST/SGOT) 34 5-34 U/L Alanine Aminotransferase (ALT/SGPT) 28 0-55 U/L Alkaline Phosphatase 70 40-136 U/L Myoglobin 61.9 10.0-92.0 NG/ML Troponin I < 0.028 <0.028 NG/ML Total Protein 6.4 6.4-8.2 GM/DL Albumin 3.8 3.2-4.5 GM/DL Amylase Level 31 25-125 U/L Lipase 30 8-78 U/L B-Type Natriuretic Peptide 44.5 <100.0 PG/ML My Orders Orders - LUCÍA HENDRICKS ANALYTICAL CLERK Ekg Tracing (03/20/22 16:55) Cbc With Automated Diff (03/20/22 17:10) Magnesium (03/20/22 17:10) Chest 1 View, Ap/Pa Only (03/20/22 17:10) Comprehensive Metabolic Panel (03/20/22 17:10) Myoglobin Serum (03/20/22 17:10) Protime With Inr (03/20/22 17:10) Partial Thromboplastin Time (03/20/22 17:10) Monitor-Rhythm Ecg Trace Only (03/20/22 17:10) Ed Iv/Invasive Line Start (03/20/22 17:10) Fibrin Degradation Products (03/20/22 17:10) Troponin I [place] (03/20/22 17:10) Metoprolol Tartrate Injection (Lopressor (03/20/22 17:15) Bnp [place] (03/20/22 17:41) Lipase (03/20/22 17:46) Amylase (03/20/22 17:46) Ekg Tracing (03/20/22 18:31) Apixaban Tablet (Eliquis Tablet) (03/20/22 19:45) Metoprolol Succinate (Xl) Tab (Toprol Xl (03/20/22 19:45) Amlodipine Tablet (Norvasc Tablet) (03/20/22 20:00) Ed Admission (Communication) (03/20/22 19:52) Medications Given in ED Current Medications Medications Dose Ordered Sig/Saba Route Start Time Stop Time Status Last Admin Dose Admin Apixaban 5 mg ONCE ONCE PO 03/20/22 19:45 03/20/22 19:46 DC 03/20/22 20:02 5 MG Metoprolol Succinate 100 mg ONCE ONCE PO 03/20/22 19:45 03/20/22 19:46 DC 03/20/22 20:02 100 MG Metoprolol Tartrate 5 mg ONCE ONCE IV 03/20/22 17:15 03/20/22 17:17 DC 03/20/22 17:21 5 MG Vital Signs/I&O 03/20/22 16:51 Temp 37.0 Pulse 121 Resp 21 B/P (MAP) 201/134 (156) Pulse Ox 95 O2 Delivery Room Air Blood Pressure Mean: 156 Progress Progress Note #1: Time: 17:10 Progress Note Patient seen and evaluated, resting in bed, no acute distress. Based on exam and symptoms, differential diagnosis includes arrhythmia, COPD exacerbation, CHF, pneumonia, [place], cholecystitis, hypertension. Cardiac and respiratory work- up initiated, CBC, CMP, troponin, magnesium, BNP, chest x-ray, amylase, lipase. Lopressor ordered for elevated heart rate and elevated blood pressure. Progress Note #2: Time: 18:53 Progress Note Lab and x-ray reviewed. CBC grossly normal, CMP grossly normal, troponin negative, BNP is not elevated indicating no increased left ventricular end diastolic dilatation., Coags and D-dimer normal. Blood pressure has improved, heart rate is still jumping from 85 up to 120 and irregular. Repeated EKG, does not show A. fib, but shows an irregularly irregular rhythm. Patient reports continued shortness of air but states that it has improved, complains of feeling lightheaded unsure if this has changed since he got here. Will consult with Dr. Simon, patient's vp software support. Initial ECG Impression Date: Mar 20, 2022 Initial ECG Impression Time: 17:00 Initial ECG Rate: 128 Initial ECG Intervals: QT Initial ECG Intervals QTc 473 Comment Irregularly irregular rhythm, P waves noted before some QRS complexes, but not all. EKG : EKG Time: 18:46 Rate: 103 Intervals: Normal ECG Comparisson: Changed Comment Repeat EKG shows irregularly irregular rhythm, most complexes have a P wave before each QRS. Occasional premature complexes noted that do not have P waves. Diagnostic Imaging Diagonstic Imaging: Xray Plain Films/CT/US/NM/MRI: chest Comments [facility]. [place], [place] NAME: DREW HILL [facility] REC#: [id number] PT STATUS: REG ER : 1970 PHYSICIAN: LUCÍA HENDRICKS APRN ADMIT DATE: 03/20/22/ER Signed Date of Exam:03/20/22 CHEST 1 VIEW, AP/PA ONLY INDICATION: Chest pain. TECHNIQUE: Frontal chest obtained at 05:15 p.m. and compared to 02/26/2022. FINDINGS: There is cardiomegaly. There is central vascular congestion with some interstitial edema. There is no consolidation or pleural fluid. IMPRESSION: Cardiomegaly with central vascular congestion and mild interstitial edema. No overt consolidation or pleural fluid. Dictated by: Dictated on workstation # [id number] Dict: 03/20/22 1728 Trans: 03/20/22 1739 [id number] Interpreted by: ODELL BAGLEY MD Electronically signed by: ODELL BAGLEY MD 03/20/22 1739 Departure Communication (Admissions) Time/Spoke to Admitting Phy: 19:[address] Botello. Time/Spoke to Consulting Phy: 19:[address] Simon, recommends admission. Impression Primary Impression: Arrhythmia Disposition: ADMITTED INPATIENT Condition: Stable Admissions Decision to Admit Reason: Admit from ER (General) Decision to Admit/Date: Mar 20, 2022 Time/Decision to Admit Time: 19:13 Departure-Patient Inst. Referrals: ESTELLE GAR MD (PCP/Family) Primary Care Physician LUCÍA HENDRICKS APRN Mar 20, 2022 17:21
[2022-03-20 17:32] LABS: ALBUMIN 3.8 GM/DL (3.2-4.5); POTASSIUM 3.8 MMOL/L (3.6-5.0)
[2022-03-20 17:33] LABS: CALCIUM 9.6 MG/DL (8.5-10.1)
--- NOTE | 2022-03-20 17:33 | Diagnostic Imaging Report ---
INDICATION: Chest pain. TECHNIQUE: Frontal chest obtained at 05:15 p.m. and compared to 02/26/2022. FINDINGS: There is cardiomegaly. There is central vascular congestion with some interstitial edema. There is no consolidation or pleural fluid. IMPRESSION: Cardiomegaly with central vascular congestion and mild interstitial edema. No overt consolidation or pleural fluid. Dictated by: Dictated on workstation # [id number]
[2022-03-20 17:34] LABS: TOTAL PROTEIN 6.4 GM/DL (6.4-8.2)
[2022-03-20 17:36] LABS: BILIRUBIN,TOTAL 0.4 MG/DL (0.1-1.0)
[2022-03-20 17:38] LABS: CREATININE SERUM 0.98 MG/DL (0.60-1.30)
[2022-03-20 17:40] LABS: INR 0.9 (0.8-1.4); PROTHROMBIN TIME PATIENT 12.2 SEC (12.2-14.7)
[2022-03-20 17:53] LABS: AMYLASE 31 U/L (25-125)
[2022-03-20 18:02] LABS: LIPASE 30 U/L (8-78)
[2022-03-20] MEDS ORDERED: meTOprolol SUCCINATE 100 MG (TOPROL XL) TAB PO ONE (19:45)
[2022-03-20] MEDS ORDERED: APIXABAN 5 MG (ELIQUIS) TABLET PO ONE (19:45)
[2022-03-20] MEDS ORDERED: amLODIPine 5 MG (NORVASC) TAB PO ONE (20:00)
[2022-03-20 20:59] VITALS: BP 132/84
[2022-03-20] MEDS ORDERED: ONDANSETRON 4 MG/2 ML (SDV) Z0FRAN IV PRN (22:15)
[2022-03-20] MEDS ORDERED: ACETAMINOPHEN 325 MG TABLET PO PRN (22:15)
[2022-03-20] MEDS ORDERED: CATHETER FLUSH 10 ML SYR IVP PRN (22:15)
[2022-03-20 22:41] VITALS: BP 132/84
[2022-03-20] MEDS ORDERED: RT-ALBUTEROL SULF 2.5 MG/3 ML PRE-MIX VIAL INH PRN (23:00)
[2022-03-20 23:40] VITALS: BP 140/87
[2022-03-21] MEDS ORDERED: RT-ALBUTEROL SULF 2.5 MG/3 ML PRE-MIX VIAL INH PRN (00:45)
[2022-03-21 03:20] VITALS: BP 157/89
[2022-03-21 04:49] LABS: BASOPHILS # (AUTO) 0.1 10^3/uL (0.0-0.1); BASOPHILS % (AUTO) 1 % (0-10); EOSINOPHILS # (AUTO) 0.2 10^3/uL (0.0-0.3); EOSINOPHILS % (AUTO) 2 % (0-10); HEMATOCRIT 44 % (40-54); HEMOGLOBIN 14.7 g/dL (13.3-17.7); LYMPHOCYTES % (AUTO) 27 % (12-44); MEAN CORPUSCULAR HEMOGLOBIN 30 pg (25-34); MEAN CORPUSCULAR HGB CONC 33 g/dL (32-36); MEAN CORPUSCULAR VOLUME 90 fL (80-99); MEAN PLATELET VOLUME 10.6 fL (9.0-12.2); MONOCYTES # (AUTO) 0.6 10^3/uL (0.0-1.0); MONOCYTES % (AUTO) 8 % (0-12); NEUTROPHILS # (AUTO) 4.6 10^3/uL (1.8-7.8); NEUTROPHILS % (AUTO) 61 % (42-75); PLATELET COUNT 174 10^3/uL (130-400); WHITE BLOOD COUNT 7.5 10^3/uL (4.3-11.0)
[2022-03-21 04:59] LABS: POTASSIUM 3.6 MMOL/L (3.6-5.0)
[2022-03-21 05:00] LABS: CALCIUM 9.2 MG/DL (8.5-10.1)
[2022-03-21 05:04] LABS: CREATININE SERUM 0.99 MG/DL (0.60-1.30)
[2022-03-21] MEDS: CATHETER FLUSH 10 ML SYR IVP SCH ×3 (05:15→20:51)
[2022-03-21] MEDS: RT-ALBUTEROL SULF 2.5 MG/3 ML PRE-MIX VIAL INH SCH ×4 (07:13→21:47)
[2022-03-21 08:00] VITALS: BP 151/103
--- NOTE | 2022-03-21 08:02 | Consultation-Cardiology ---
HPI-Cardiology Cardiology Consultation: Date of Consultation 03/21/22 Time Seen by a Provider: 10:15 Date of Admission 03-20-22 Attending Physician Nathaniel Martinez MD Admitting Physician Admitting Physician: Anastasia Botello MD Attending Physician: Anastasia Botello MD Consulting Physician Bryce Simon MD HPI: Chief Complaint: SOB Palpitations Mr. Forte is a 51 yr old male admitted to [facility] from the ED with c/o increasing SOB and frequent cough. He denies any c/o CP or palpitations. He reports he has had nausea and diarrhea this morning. He states he has been compliant with his medications. No report of syncope or near syncope. He reports he has chronic bilat LE swelling which is unchanged. Review of Systems-Cardiology Review of Systems Constitutional: No chills, No fever; malaise Eyes: No vision change Ears/Nose/Throat: No epistaxis, No recent hearing loss Respiratory: As described under HPI Cardiovascular: As described under HPI Gastrointestinal: As described under HPI Genitourinary: No dysuria, No hematuria Musculoskeletal: back pain, joint pain Skin: No rash on exposed areas, No ulcerations on exposed areas Psychiatric/Neurological: anxiety, depression; No seizure, No focal weakness, No syncope Hematologic: No bleeding abnormalities NES-Vpsuau-Umpckx Hx Patient Social History Smoking Status: Current Everyday Smoker 2nd Hand Smoke Exposure: Yes Have you traveled recently?: No Alcohol Use?: No Pt feels they are or have been: No Tobacco type used: Cigarettes Immunizations Up To Date Tetanus Booster (TDap): Less than 5yrs Date of Pneumonia Vaccine: May 22, 2016 Date of Influenza Vaccine: Dec 24, 2021 Past Medical History PMH As described under Assessment. Family Medical History Family Medical History: He denies any family h/o CAD or SCD. Family History: 19 FATHER FH: gastric ulcer, Onset:Unknown 19 MOTHER, Diabetes mellitus, Onset:Unknown DVT, Onset:Unknown G8 BROTHER Diabetes mellitus, Onset:Unknown Relation not specified for: Completed stroke Allergies and Home Medications Allergies Coded Allergies: No Known Drug Allergies (Unverified , 03/26/21) Patient Home Medication List Acetaminophen (Tylenol Extra Strength) 500 Mg Tablet, 1,000 MG PO Q4H PRN for PAIN-MILD (1-4), (Reported) Entered as Reported by: NEPTALI PUCKETT on 01/15/191058 Last Action: Reviewed Albuterol Sulfate (Ventolin Hfa) 1 Puff Puff, 2 PUFF INH Q4H PRN for SHORTNESS OF BREATH, (Reported) Entered as Reported by: KERI BULLOCK on 01/25/22 151 Last Action: Reviewed Amlodipine Besylate (Amlodipine Besylate) 5 Mg Tablet, 5 MG PO DAILY, (Reported) Entered as Reported by: BALDEV DOWNS on 02/28/22847 Last Action: Reviewed Apixaban (Eliquis) 5 Mg Tablet, 5 MG PO BID, (Reported) Entered as Reported by: BALDEV DOWNS on 02/28/22847 Last Action: Reviewed Aripiprazole (Aripiprazole) 30 Mg Tablet, 30 MG PO DAILY, (Reported) Entered as Reported by: BALDEV DOWNS on 02/28/22847 Last Action: Reviewed Aspirin (Aspirin EC) 81 Mg Tablet.dr, 81 MG PO DAILY, (Reported) Entered as Reported by: KERI BULLOCK on 03/21/221407 Last Action: Reviewed Atorvastatin Calcium (Atorvastatin Calcium) 40 Mg Tablet, 40 MG PO HS, (Reported) Entered as Reported by: NEPTALI PUCKETT on 01/15/191058 Last Action: Reviewed Baclofen (Baclofen) 10 Mg Tablet, 10 MG PO TID, (Reported) Entered as Reported by: BALDEV DOWNS on 01/07/22 0915 Last Action: Reviewed Balsalazide Disodium (Balsalazide Disodium) 750 Mg Capsule, 1,500 MG PO TID, (Reported) Entered as Reported by: KERI BULLOCK on 03/21/221407 Last Action: Reviewed Cyclobenzaprine HCl (Cyclobenzaprine HCl) 10 Mg Tablet, 10 MG PO HS, (Reported) Entered as Reported by: BALDEV DOWNS on 02/28/22847 Last Action: Reviewed Duloxetine HCl (Duloxetine HCl) 60 Mg Capsule.dr, 120 MG PO DAILY, (Reported) Entered as Reported by: KERI BULLOCK on 05/09/20 1004 Last Action: Reviewed Famotidine (Famotidine) 20 Mg Tablet, 20 MG PO HS, (Reported) Entered as Reported by: NEPTALI PUCKETT on 01/15/191058 Last Action: Reviewed Fenofibrate Nanocrystallized (Fenofibrate) 145 Mg Tablet, 145 MG PO HS, (Reported) Entered as Reported by: NEPTALI PUCKETT on 01/15/19 1059 Last Action: Reviewed Gabapentin (Gabapentin) 600 Mg Tablet, 600 MG PO TID, (Reported) Entered as Reported by: KERI BULLOCK on 05/09/20 1008 Last Action: Reviewed Metformin HCl (Metformin HCl) 1,000 Mg Tablet, 1,000 MG PO BID, (Reported) Entered as Reported by: BALDEV DOWNS on 01/07/22914 Last Action: Reviewed Metoprolol Succinate (Metoprolol Succinate) 100 Mg Tab.er.24h, 100 MG PO DAILY, (Reported) Entered as Reported by: BALDEV DOWNS on 02/28/22847 Last Action: Reviewed Multivitamin (Multivitamin) 1 Each Tablet, 1 EACH PO DAILY, (Reported) Entered as Reported by: BALDEV DOWNS on 02/28/22847 Last Action: Reviewed Potassium Chloride (Potassium Chloride) 20 Meq Tab.er.prt, 40 MEQ PO BID, (Reported) Entered as Reported by: BALDEV DOWNS on 01/07/22914 Last Action: Reviewed Ropinirole HCl (Ropinirole HCl) 5 Mg Tablet, 5 MG PO TID, (Reported) Entered as Reported by: SHANNAN DIAZ on 05/22/18 0604 Last Action: Reviewed Sodium Bicarbonate (Sodium Bicarbonate) 650 Mg Tablet, 650 MG PO BID, (Reported) Entered as Reported by: KERI BULLOCK on 03/21/22 1408 Last Action: Reviewed Tamsulosin HCl (Flomax) 0.4 Mg Cap, 0.4 MG PO HS, (Reported) Entered as Reported by: BALDEV DOWNS on 01/07/22914 Last Action: Reviewed Discontinued Medications Cefdinir (Cefdinir) 300 Mg Capsule, 300 MG PO BID Discontinued Reason: No Longer Taking Prescribed by: XAVI LOPEZ on 03/01/221212 Last Action: Discontinued Prednisone (Prednisone) 10 Mg Tab.ds.pk, 10 MG PO DAILY Discontinued Reason: No Longer Taking Prescribed by: XAVI LOPEZ on 03/01/221212 Last Action: Discontinued Physical Exam-Cardiology Physical Exam Vital Signs/I&O 03/21/22 03/21/22 03/21/2203/21/23 07:00 07:14 08:00 08:00 Temp 39.9 Pulse 113 98 Resp 20 B/P (MAP) 151/103 (119) Pulse Ox 95 92 O2 Delivery Nasal Cannula Room Air Room Air O2 Flow Rate 2.00 03/21/22 03/21/22 03/21/22 03/21/22 10:57 12:00 12:47 14:30 Temp 36.5 Pulse 102 99 Resp 20 B/P (MAP) 148/102 (117) Pulse Ox 96 95 O2 Delivery Nasal Cannula Room Air Nasal Cannula O2 Flow Rate 3.00 3.00 03/21/22 15:55 Temp 36.7 Pulse 89 Resp 21 B/P (MAP) 136/85 (102) Pulse Ox 96 O2 Delivery Nasal Cannula O2 Flow Rate 3.00 03/21/22 00:00 Intake Total 100 ml Balance 100 ml Capillary Refill : Constitutional: AAO x 3, well-developed, well-nourished HEENT: PERRL, hearing is well preserved; No oral hygience is good Neck: No carotid bruit; carotid pulses are 2 + bilaterally Respiratory: No accessory muscle use, No respiratory distress; chest expansion is symmetric, chest is bilaterally symmetric, other (diminished lower lobes bilat) Cardiovascular: irregularly irregular; No JVD; S1 and S2, systolic murmur Gastrointestinal: soft, round; No guarding; audible bowel sounds Extremities: other (mod bilat LE swelling) Neurologic/Psychiatric: grossly intact (moves all extremities) Skin: No rash on exposed areas, No ulcerations on exposed areas Data Review Labs Laboratory Tests 03/20/22 16:58: White Blood Count 8.7, Red Blood Count 5.01, Hemoglobin 15.1, Hematocrit 45, Mean Corpuscular Volume 90, Mean Corpuscular Hemoglobin 30, Mean Corpuscular Hemoglobin Concent 33, Red Cell Distribution Width 16.7H, Platelet Count 188, Mean Platelet Volume 10.8, Immature Granulocyte % (Auto) 1, Neutrophils (%) (Auto) 65, Lymphocytes (%) (Auto) 24, Monocytes (%) (Auto) 8, Eosinophils (%) (Auto) 2, Basophils (%) (Auto) 1, Neutrophils # (Auto) 5.6, Lymphocytes # (Auto) 2.1, Monocytes # (Auto) 0.7, Eosinophils # (Auto) 0.2, Basophils # (Auto) 0.1, Immature Granulocyte # (Auto) 0.1, Prothrombin Time 12.2, INR Comment 0.9, Activated Partial Thromboplast Time 30, D-Dimer < 0.27, Sodium Level 142, Potassium Level 3.8, Chloride Level 108H, Carbon Dioxide Level 22, Anion Gap 12, Blood Urea Nitrogen 15, Creatinine 0.98, Estimat Glomerular Filtration Rate 93, BUN/Creatinine Ratio 15, Glucose Level 92, Calcium Level 9.6, Corrected Calcium 9.8, Magnesium Level 2.0, Total Bilirubin 0.4, Aspartate Amino Transf (AST/SGOT) 34, Alanine Aminotransferase (ALT/SGPT) 28, Alkaline Phosphatase 70, Myoglobin 61.9, Troponin I < 0.028, Total Protein 6.4, Albumin 3.8, Amylase Level 31, Lipase 30 03/20/22 17:43: B-Type Natriuretic Peptide 44.5 03/20/22 23:04: Troponin I < 0.028 03/20/22 23:54: Glucometer 158H 03/21/22 04:15: White Blood Count 7.5, Red Blood Count 4.87, Hemoglobin 14.7, Hematocrit 44, Mean Corpuscular Volume 90, Mean Corpuscular Hemoglobin 30, Mean Corpuscular Hemoglobin Concent 33, Red Cell Distribution Width 17.0H, Platelet Count 174, Mean Platelet Volume 10.6, Immature Granulocyte % (Auto) 1, Neutrophils (%) (Auto) 61, Lymphocytes (%) (Auto) 27, Monocytes (%) (Auto) 8, Eosinophils (%) (Auto) 2, Basophils (%) (Auto) 1, Neutrophils # (Auto) 4.6, Lymphocytes # (Auto) 2.0, Monocytes # (Auto) 0.6, Eosinophils # (Auto) 0.2, Basophils # (Auto) 0.1, Immature Granulocyte # (Auto) 0.1, Sodium Level 141, Potassium Level 3.6, Chloride Level 107, Carbon Dioxide Level 21, Anion Gap 13, Blood Urea Nitrogen 12, Creatinine 0.99, Estimat Glomerular Filtration Rate 92, BUN/Creatinine Ratio 12, Glucose Level 134H, Calcium Level 9.2 Microbiology 03/21/22 C. difficile DNA Amplification, Resulted Pending 03/21/22 C. difficile GDH Antigen & Toxins - Final, Resulted Radiology NAME: DREW FORTE MED REC#: [id number] PT STATUS: REG ER : 1970 PHYSICIAN: LUCÍA HENDRICKS APRN ADMIT DATE: 03/20/22/ER Signed Date of Exam:03/20/22 CHEST 1 VIEW, AP/PA ONLY INDICATION: Chest pain. TECHNIQUE: Frontal chest obtained at 05:15 p.m. and compared to 02/26/2022. FINDINGS: There is cardiomegaly. There is central vascular congestion with some interstitial edema. There is no consolidation or pleural fluid. IMPRESSION: Cardiomegaly with central vascular congestion and mild interstitial edema. No overt consolidation or pleural fluid. Dictated by: Dictated on workstation # [id number] Dict: 03/20/22 1728 Trans: 03/20/22 1739 [id number] Interpreted by: ODELL BAGLEY MD Electronically signed by: ODELL BAGLEY MD 03/20/22 1739 ECG Impression ECG Initial ECG Impression: Atrial Fibrillation A/P-Cardiology Assessment/Admission Diagnosis Nausea/diarrhea - undetermined etiology Pneumonia - managemet per medical services PAF - currently a-fib with controlled rate - BB and OAC - Echo 01/06/22 (Dr Ndiaye): poor quality study, normal LV size with EF 55 to 60%, PA pressure 20 mmHg Coronary artery disease - cath by Dr. Bauman in July 2017: moderate proximal disease in the ramus branch. There was no other focal disease. Hypertension - uncontrolled Morbid obesity, BMI 54 Tobaccoism H/o alcoholism Anxiety. COPD/obesity hypoventilation system/obstructive sleep apnea, treated with CPAP Non-compliant with f/u Discussion and Recomendations Nausea/diarrhea/fever - management per medical services A-fib with controlled rate - continue home dose of BB and OAC with Eliquis Pneumonia - management per medical services Monitor lab closely Replace electrolytes as indicated Further recs will be based on his hospital course We would like to thank medical services for this consult Clinical Quality Measures AMI/AHF: ASA po Prior to arrival: LALITA Ham Mar 21, 2022 08:02
[2022-03-21] MEDS ORDERED: AZITHROMYCIN 250 MG TAB (ZITHROMAX) PO NR (11:00)
[2022-03-21] MEDS ORDERED: meTOprolol SUCCINATE 100 MG (TOPROL XL) TAB PO NR (11:30)
[2022-03-21] MEDS ORDERED: meTOprolol SUCCINATE 100 MG (TOPROL XL) TAB PO ONE (11:32)
[2022-03-21 12:00] VITALS: BP 148/102
[2022-03-21] MEDS ORDERED: NF-SODBICA PO (14:08)
[2022-03-21] MEDS ORDERED: BALS750C PO (14:08)
[2022-03-21] MEDS ORDERED: ASPI-1238 PO (14:08)
--- NOTE | 2022-03-21 15:20 | Consultation-Cardiology ---
HPI-Cardiology Cardiology Consultation: Date of Consultation 03/21/22 Time Seen by a Provider: 13:00 Date of Admission Attending Physician Nathaniel Martinez MD Admitting Physician Admitting Physician: Anastasia Botello MD Attending Physician: Anastasia Botello MD Consulting Physician VIDA ALMEIDA MD, FACP, FACC HPI: Chief Complaint: SOB Palpitations Mr. Forte is a 51 yr old male admitted to [facility] from the ED with c/o increasing SOB and frequent cough. He denies any c/o CP or palpitations. He reports he has had nausea and diarrhea this morning. He states he has been compliant with his medications. No report of syncope or near syncope. He reports he has chronic bilat LE swelling which is unchanged. Review of Systems-Cardiology Review of Systems Constitutional: No chills, No fever; malaise Eyes: No vision change Ears/Nose/Throat: No epistaxis, No recent hearing loss Respiratory: As described under HPI Cardiovascular: As described under HPI Gastrointestinal: As described under HPI Genitourinary: No dysuria, No hematuria Musculoskeletal: back pain, joint pain Skin: No rash on exposed areas, No ulcerations on exposed areas Psychiatric/Neurological: anxiety, depression; No seizure, No focal weakness, No syncope Hematologic: No bleeding abnormalities UOG-Tjhwlf-Pdhtnu Hx Patient Social History Smoking Status: Current Everyday Smoker 2nd Hand Smoke Exposure: Yes Have you traveled recently?: No Alcohol Use?: No Pt feels they are or have been: No Tobacco type used: Cigarettes Immunizations Up To Date Tetanus Booster (TDap): Less than 5yrs Date of Pneumonia Vaccine: May 22, 2016 Date of Influenza Vaccine: Dec 24, 2021 Past Medical History PMH As described under Assessment. Family Medical History Family Medical History: He denies any family h/o CAD or SCD. Family History: Completed stroke DVT 19 MOTHER, , Onset:Unknown Diabetes mellitus 19 MOTHER, , Onset:Unknown G8 BROTHER, Onset:Unknown FH: gastric ulcer 19 FATHER, Onset:Unknown Allergies and Home Medications Allergies Coded Allergies: No Known Drug Allergies (Unverified , 03/26/21) Patient Home Medication List Home Medication List Reviewed: Yes Acetaminophen (Tylenol Extra Strength) 500 Mg Tablet, 1,000 MG PO Q4H PRN for PAIN-MILD (1-4), (Reported) Entered as Reported by: NEPTALI PUCKETT on 01/15/191058 Last Action: Reviewed Albuterol Sulfate (Ventolin Hfa) 1 Puff Puff, 2 PUFF INH Q4H PRN for SHORTNESS OF BREATH, (Reported) Entered as Reported by: KERI BULLOCK on 01/25/22 151 Last Action: Reviewed Amlodipine Besylate (Amlodipine Besylate) 5 Mg Tablet, 5 MG PO DAILY, (Reported) Entered as Reported by: BALDEV DOWNS on 02/28/22847 Last Action: Reviewed Apixaban (Eliquis) 5 Mg Tablet, 5 MG PO BID, (Reported) Entered as Reported by: BALDEV DOWNS on 02/28/22847 Last Action: Reviewed Aripiprazole (Aripiprazole) 30 Mg Tablet, 30 MG PO DAILY, (Reported) Entered as Reported by: BALDEV DOWNS on 02/28/22847 Last Action: Reviewed Aspirin (Aspirin EC) 81 Mg Tablet.dr, 81 MG PO DAILY, (Reported) Entered as Reported by: KERI BULLOCK on 03/21/221407 Last Action: Reviewed Atorvastatin Calcium (Atorvastatin Calcium) 40 Mg Tablet, 40 MG PO HS, (Reported) Entered as Reported by: NEPTALI PUCKETT on 01/15/191058 Last Action: Reviewed Baclofen (Baclofen) 10 Mg Tablet, 10 MG PO TID, (Reported) Entered as Reported by: BALDEV DOWNS on 01/07/22 0915 Last Action: Reviewed Balsalazide Disodium (Balsalazide Disodium) 750 Mg Capsule, 1,500 MG PO TID, (Reported) Entered as Reported by: KERI BULLOCK on 03/21/221407 Last Action: Reviewed Cyclobenzaprine HCl (Cyclobenzaprine HCl) 10 Mg Tablet, 10 MG PO HS, (Reported) Entered as Reported by: BALDEV DOWNS on 02/28/22847 Last Action: Reviewed Duloxetine HCl (Duloxetine HCl) 60 Mg Capsule.dr, 120 MG PO DAILY, (Reported) Entered as Reported by: KERI BULLOCK on 05/09/20 1004 Last Action: Reviewed Famotidine (Famotidine) 20 Mg Tablet, 20 MG PO HS, (Reported) Entered as Reported by: NEPTALI PUCKETT on 11/15/19 1059 Last Action: Reviewed Fenofibrate Nanocrystallized (Fenofibrate) 145 Mg Tablet, 145 MG PO HS, (Reported) Entered as Reported by: NEPTALI PUCKETT on 01/15/19 1059 Last Action: Reviewed Gabapentin (Gabapentin) 600 Mg Tablet, 600 MG PO TID, (Reported) Entered as Reported by: KERI BULLOCK on 05/09/20 1008 Last Action: Reviewed Metformin HCl (Metformin HCl) 1,000 Mg Tablet, 1,000 MG PO BID, (Reported) Entered as Reported by: BALDEV DOWNS on 01/07/22914 Last Action: Reviewed Metoprolol Succinate (Metoprolol Succinate) 100 Mg Tab.er.24h, 100 MG PO DAILY, (Reported) Entered as Reported by: BALDEV DOWNS on 02/28/22847 Last Action: Reviewed Multivitamin (Multivitamin) 1 Each Tablet, 1 EACH PO DAILY, (Reported) Entered as Reported by: BALDEV DOWNS on 02/28/22847 Last Action: Reviewed Potassium Chloride (Potassium Chloride) 20 Meq Tab.er.prt, 40 MEQ PO BID, (Reported) Entered as Reported by: BALDEV DOWNS on 01/07/22914 Last Action: Reviewed Ropinirole HCl (Ropinirole HCl) 5 Mg Tablet, 5 MG PO TID, (Reported) Entered as Reported by: SHANNAN DIAZ on 05/22/18 0604 Last Action: Reviewed Sodium Bicarbonate (Sodium Bicarbonate) 650 Mg Tablet, 650 MG PO BID, (Reported) Entered as Reported by: KERI BULLOCK on 03/21/22 1408 Last Action: Reviewed Tamsulosin HCl (Flomax) 0.4 Mg Cap, 0.4 MG PO HS, (Reported) Entered as Reported by: BALDEV DOWNS on 01/07/22914 Last Action: Reviewed Discontinued Medications Cefdinir (Cefdinir) 300 Mg Capsule, 300 MG PO BID Discontinued Reason: No Longer Taking Prescribed by: XAVI LOPEZ on 03/01/221212 Last Action: Discontinued Prednisone (Prednisone) 10 Mg Tab.ds.pk, 10 MG PO DAILY Discontinued Reason: No Longer Taking Prescribed by: XAVI LOPEZ on 03/01/221212 Last Action: Discontinued Physical Exam-Cardiology Physical Exam Vital Signs/I&O 03/21/22 03/21/22 03/21/22 1/19/23 03:20 07:00 07:14 08:00 Temp 36.2 39.9 Pulse 98 113 98 Resp 20 20 B/P (MAP) 157/89 (111) 151/103 (119) Pulse Ox 95 95 92 O2 Delivery Nasal Cannula Nasal Cannula Room Air O2 Flow Rate 2.00 2.00 03/21/22 03/21/22 03/21/22 03/21/22 08:00 10:57 12:00 12:47 Temp 36.5 Pulse 102 99 Resp 20 B/P (MAP) 148/102 (117) Pulse Ox 96 O2 Delivery Room Air Nasal Cannula Room Air O2 Flow Rate 3.00 03/21/22 14:30 Pulse Ox 95 O2 Delivery Nasal Cannula O2 Flow Rate 3.00 03/21/22 00:00 Intake Total 100 ml Balance 100 ml Capillary Refill : Constitutional: AAO x 3, well-developed, well-nourished HEENT: PERRL, hearing is well preserved; No oral hygience is good Neck: No carotid bruit; carotid pulses are 2 + bilaterally Respiratory: No accessory muscle use, No respiratory distress; chest expansion is symmetric, chest is bilaterally symmetric, other (diminished lower lobes bilat) Cardiovascular: irregularly irregular; No JVD; S1 and S2, systolic murmur Gastrointestinal: soft, round; No guarding; audible bowel sounds Extremities: other (mod bilat LE swelling) Neurologic/Psychiatric: grossly intact (moves all extremities) Skin: No rash on exposed areas, No ulcerations on exposed areas Data Review Labs Laboratory Tests 03/20/22 16:58: White Blood Count 8.7, Red Blood Count 5.01, Hemoglobin 15.1, Hematocrit 45, Mean Corpuscular Volume 90, Mean Corpuscular Hemoglobin 30, Mean Corpuscular Hemoglobin Concent 33, Red Cell Distribution Width 16.7H, Platelet Count 188, Mean Platelet Volume 10.8, Immature Granulocyte % (Auto) 1, Neutrophils (%) (Auto) 65, Lymphocytes (%) (Auto) 24, Monocytes (%) (Auto) 8, Eosinophils (%) (Auto) 2, Basophils (%) (Auto) 1, Neutrophils # (Auto) 5.6, Lymphocytes # (Auto) 2.1, Monocytes # (Auto) 0.7, Eosinophils # (Auto) 0.2, Basophils # (Auto) 0.1, Immature Granulocyte # (Auto) 0.1, Prothrombin Time 12.2, INR Comment 0.9, Activated Partial Thromboplast Time 30, D-Dimer < 0.27, Sodium Level 142, Potassium Level 3.8, Chloride Level 108H, Carbon Dioxide Level 22, Anion Gap 12, Blood Urea Nitrogen 15, Creatinine 0.98, Estimat Glomerular Filtration Rate 93, BUN/Creatinine Ratio 15, Glucose Level 92, Calcium Level 9.6, Corrected Calcium 9.8, Magnesium Level 2.0, Total Bilirubin 0.4, Aspartate Amino Transf (AST/SGOT) 34, Alanine Aminotransferase (ALT/SGPT) 28, Alkaline Phosphatase 70, Myoglobin 61.9, Troponin I < 0.028, Total Protein 6.4, Albumin 3.8, Amylase Level 31, Lipase 30 03/20/22 17:43: B-Type Natriuretic Peptide 44.5 03/20/22 23:04: Troponin I < 0.028 03/20/22 23:54: Glucometer 158H 03/21/22 04:15: White Blood Count 7.5, Red Blood Count 4.87, Hemoglobin 14.7, Hematocrit 44, Mean Corpuscular Volume 90, Mean Corpuscular Hemoglobin 30, Mean Corpuscular Hemoglobin Concent 33, Red Cell Distribution Width 17.0H, Platelet Count 174, Mean Platelet Volume 10.6, Immature Granulocyte % (Auto) 1, Neutrophils (%) (Auto) 61, Lymphocytes (%) (Auto) 27, Monocytes (%) (Auto) 8, Eosinophils (%) (Auto) 2, Basophils (%) (Auto) 1, Neutrophils # (Auto) 4.6, Lymphocytes # (Auto) 2.0, Monocytes # (Auto) 0.6, Eosinophils # (Auto) 0.2, Basophils # (Auto) 0.1, Immature Granulocyte # (Auto) 0.1, Sodium Level 141, Potassium Level 3.6, Chloride Level 107, Carbon Dioxide Level 21, Anion Gap 13, Blood Urea Nitrogen 12, Creatinine 0.99, Estimat Glomerular Filtration Rate 92, BUN/Creatinine Ratio 12, Glucose Level 134H, Calcium Level 9.2 Microbiology 03/21/22 C. difficile GDH Antigen & Toxins - Final, Complete A/P-Cardiology Assessment/Admission Diagnosis Nausea/diarrhea - undetermined etiology Pneumonia - managemet per medical services PAF - currently a-fib with controlled rate - BB and OAC - Echo 01/06/22 (Dr Ndiaye): poor quality study, normal LV size with EF 55 to 60%, PA pressure 20 mmHg Coronary artery disease - cath by Dr. Bauman in July 2017: moderate proximal disease in the ramus branch. There was no other focal disease. Hypertension - uncontrolled Morbid obesity, BMI 54 Tobaccoism H/o alcoholism Anxiety. COPD/obesity hypoventilation system/obstructive sleep apnea, treated with CPAP Non-compliant with f/u Discussion and Recomendations Nausea/diarrhea/fever - management per medical services A-fib with controlled rate - continue home dose of BB and OAC with Eliquis Pneumonia - management per medical services Monitor lab closely Replace electrolytes as indicated Further recs will be based on his hospital course We would like to thank Medical services for this consult Clinical Quality Measures AMI/AHF: ASA po Prior to arrival: VIDA Dickey MD FACP FACC CCDS Mar 21, 2022 15:20
--- NOTE | 2022-03-21 15:40 | History & Physical ---
KRYSTLEASHIA 03/21/22 1540: History of Present Illness History of Present Illness Reason for visit/HPI Mr. Forte is a 51 y/o male who presented to the [facility] ED via EMS with right- sided chest pain and SOA. Patient has a PMHx of COPD, CAD, sleep apnea with CPAP at night, HTN, DMT2, GERD, atrial fibrillation, depression, bipolar disorder, and BPH. Patient reports he skipped his medications on 03/20 due to sleeping in. Patient reports he is generally very compliant with his medication. Patient was treated with nitropaste and ASA by EMS which improved CP. Patient was noted to have atrial fibrillation on EKG. Patient has been admitted to Hospitalist service with Cardiology following for management. This morning the patient reports an improvement in his CP but continues to have SOA. Patient is requiring supplemental O2; states he does not use supplemental O2 at home. Patient has a temp of 39.9 and is visibly SOA and diaphoretic. Patient states he has had 2 episodes of diarrhea this morning. Patient denies recent antibiotic use. Patient states he has had diarrhea for the past couple of days. Date of Admission Mar 20, 2022 at 19:53 Date Seen by a Provider: Mar 21, 2022 Time Seen by a Provider: 10:30 I consulted on this patient on 03/21/22 15:23 Attending Physician Nathaniel Martinez MD Admitting Physician Admitting Physician: Laura Stringer MD Attending Physician: Laura Stringer MD Consult Allergies and Home Medications Allergies Coded Allergies: No Known Drug Allergies (Unverified , 03/26/21) Patient Home Medication List Home Medication List Reviewed: Yes Acetaminophen (Tylenol Extra Strength) 500 Mg Tablet, 1,000 MG PO Q4H PRN for PAIN-MILD (1-4), (Reported) Entered as Reported by: NEPTALI PUCKETT on 01/15/19 1059 Last Action: Reviewed Albuterol Sulfate (Ventolin Hfa) 1 Puff Puff, 2 PUFF INH Q4H PRN for SHORTNESS OF BREATH, (Reported) Entered as Reported by: KERI BULLOCK on 01/25/22 1518 Last Action: Reviewed Amlodipine Besylate (Amlodipine Besylate) 5 Mg Tablet, 5 MG PO DAILY, (Reported) Entered as Reported by: BALDEV DOWNS on 02/28/22847 Last Action: Continued Apixaban (Eliquis) 5 Mg Tablet, 5 MG PO BID, (Reported) Entered as Reported by: BALDEV DOWNS on 02/28/22847 Last Action: Continued Aripiprazole (Aripiprazole) 30 Mg Tablet, 30 MG PO DAILY, (Reported) Entered as Reported by: BALDEV DOWNS on 02/28/22847 Last Action: Converted Aspirin (Aspirin EC) 81 Mg Tablet.dr, 81 MG PO DAILY, (Reported) Entered as Reported by: KERI BULLOCK on 03/21/221407 Last Action: Continued Atorvastatin Calcium (Atorvastatin Calcium) 40 Mg Tablet, 40 MG PO HS, (Reported) Entered as Reported by: NEPTALI PUCKETT on 01/15/191058 Last Action: Continued Baclofen (Baclofen) 10 Mg Tablet, 10 MG PO TID, (Reported) Entered as Reported by: BALDEV DOWNS on 01/07/22914 Last Action: Continued Balsalazide Disodium (Balsalazide Disodium) 750 Mg Capsule, 1,500 MG PO TID, (Reported) Entered as Reported by: KERI BULLOCK on 03/21/221407 Last Action: Reviewed Cyclobenzaprine HCl (Cyclobenzaprine HCl) 10 Mg Tablet, 10 MG PO HS, (Reported) Entered as Reported by: BALDEV DOWNS on 02/28/22847 Last Action: Continued Duloxetine HCl (Duloxetine HCl) 60 Mg Capsule.dr, 120 MG PO DAILY, (Reported) Entered as Reported by: KERI BULLOCK on 05/09/20 100 Last Action: Converted Famotidine (Famotidine) 20 Mg Tablet, 20 MG PO HS, (Reported) Entered as Reported by: NEPTALI PUCKETT on 01/15/191058 Last Action: Continued Fenofibrate Nanocrystallized (Fenofibrate) 145 Mg Tablet, 145 MG PO HS, (Reported) Entered as Reported by: NEPTALI PUCKETT on 01/15/191058 Last Action: Reviewed Gabapentin (Gabapentin) 600 Mg Tablet, 600 MG PO TID, (Reported) Entered as Reported by: KERI BULLOCK on 05/09/20 100 Last Action: Continued Metformin HCl (Metformin HCl) 1,000 Mg Tablet, 1,000 MG PO BID, (Reported) Entered as Reported by: BALDEV DOWNS on 01/07/22914 Last Action: Reviewed Metoprolol Succinate (Metoprolol Succinate) 100 Mg Tab.er.24h, 100 MG PO DAILY, (Reported) Entered as Reported by: BALDEV DOWNS on 02/28/22847 Last Action: Reviewed Multivitamin (Multivitamin) 1 Each Tablet, 1 EACH PO DAILY, (Reported) Entered as Reported by: BALDEV DOWNS on 02/28/22847 Last Action: Reviewed Potassium Chloride (Potassium Chloride) 20 Meq Tab.er.prt, 40 MEQ PO BID, (Reported) Entered as Reported by: BALDEV DOWNS on 01/07/22914 Last Action: Reviewed Ropinirole HCl (Ropinirole HCl) 5 Mg Tablet, 5 MG PO TID, (Reported) Entered as Reported by: SHANNAN DIAZ on 05/22/18 0604 Last Action: Continued Sodium Bicarbonate (Sodium Bicarbonate) 650 Mg Tablet, 650 MG PO BID, (Reported) Entered as Reported by: KERI BULLOCK on 03/21/22 1408 Last Action: Continued Tamsulosin HCl (Flomax) 0.4 Mg Cap, 0.4 MG PO HS, (Reported) Entered as Reported by: BALDEV DOWNS on 01/07/22914 Last Action: Continued Discontinued Medications Cefdinir (Cefdinir) 300 Mg Capsule, 300 MG PO BID Discontinued Reason: No Longer Taking Prescribed by: XAVI LOPEZ on 03/01/221212 Last Action: Discontinued Prednisone (Prednisone) 10 Mg Tab.ds.pk, 10 MG PO DAILY Discontinued Reason: No Longer Taking Prescribed by: XAVI LOPEZ on 03/01/221212 Last Action: Discontinued Past Frusjoq-Jwymny-Rnqsdt Hx Patient Social History Tobacco Use?: Yes Tobacco type used: Cigars Smoking Status: Current Everyday Smoker Use of E-Cig and/or Vaping dev: No Substance use?: No Alcohol Use?: No Pt feels they are or have been: No Immunizations Up To Date Date of Influenza Vaccine: Dec 24, 2021 First/Initial COVID19 Vaccinat: JUNE 01, 2020 Second COVID19 Vaccination Ronald: JUNE 15, 2020 Tetanus Booster (TDap): Unknown Hepatitis A: No Hepatitis B: No PED Vaccines UTD: No Date of Pneumonia Vaccine: May 22, 2016 Seasonal Allergies Seasonal Allergies: No Current Status Advance Directives: Yes Communicates: Verbally Primary Language: Portuguese Preferred Spoken Language: Portuguese Is interpretation needed?: No Implanted or Applied Medical D: CPAP Past Medical History Surgeries: Gallbladder, Orthopedic, Renal Sleep Apnea, COPD Currently Using CPAP: Yes Currently Using BIPAP: No High Cholesterol, Hypertension Neuropathy Sexually Transmitted Disease: No HIV/AIDS: No Benign Prostatic Hyperpl, Renal Failure Colitis, Gastroesophageal Reflux, Gall Bladder Disease Degenerate Disk Disease, Arthritis, Chronic Back Pain, Gout Diabetes, Non-Insulin dep Anxiety, Bipolar, Depression Blood Disorders: No Adverse Reaction/Blood Tranf: No PMHx: HTN NIDDM Restless Legs COPD Sleep apnea on cpap SurgHx: Back surgery Cholecystectomy Family Medical History Completed stroke DVT 19 MOTHER, , Onset:Unknown Diabetes mellitus 19 MOTHER, , Onset:Unknown G8 BROTHER, Onset:Unknown FH: gastric ulcer 19 FATHER, Onset:Unknown No Pertinent Family Hx, DVT/PE, Diabetes, GI Disease Review of Systems Constitutional: diaphoresis, malaise Respiratory: No cough; short of breath Cardiovascular: No chest pain Gastrointestinal: No abdominal pain; diarrhea; No nausea, No vomiting Genitourinary: No dysuria Physical Exam Vital Signs Vital Signs - First Documented 03/20/22 03/20/22 16:51 23:40 Temp 37.0 Pulse 121 Resp 21 B/P (MAP) 201/134 (156) Pulse Ox 95 O2 Delivery Room Air O2 Flow Rate 2.00 Capillary Refill : Height, Weight, BMI Height: 5'10.00" Weight: 330lbs. 3.0oz. [id number]; 53.90 BMI Method:Stated General Appearance: Mild Distress (diaphoretic, SOA) Respiratory: Lungs Clear, Decreased Breath Sounds, Other (visible SOA) Cardiovascular: Irregularly Irregular Gastrointestinal: Normal Bowel Sounds, Non Tender, Soft Extremity: Other (trace LE edema bilaterally) Neurologic/Psychiatric: Alert Skin: Normal Color, Diaphoresis Assessment/Plan Assessment and Plan Problems: (1) Benign prostate hyperplasia Status: Chronic Assessment & Plan: 03/21: -Monitor urine output -Resume home medication tamsulosin 0.4mg PO qd (2) Mood disorder Status: Chronic Assessment & Plan: 03/21: -Resume home medications: Abilify 30mg PO qd, duloxetine 60mg PO qd (3) Arrhythmia Qualifiers: Assessment & Plan: 03/21: -Atrial fibrillation -Appreciate plan per Cardiology -metoprolol 100mg PO qd, amlodipine 5mg PO qd -Eliquis 5mg PO qd for OAC -Resume home medication: atorvastatin 40mg PO qd (4) COPD (chronic obstructive pulmonary disease) Status: Chronic Assessment & Plan: 03/21: -Resume home medications -> albuterol 3ml INH PRN (5) HTN (hypertension) Status: Chronic Assessment & Plan: 03/21: -Monitor BP -metoprolol 100mg PO qd, amlodipine 5mg PO qd (6) Diabetes Status: Chronic Qualifiers: Assessment & Plan: 03/21: -Monitor blood glucose levels -Hold metformin -Sliding scale insulin (7) Diarrhea Status: Acute Qualifiers: Qualified Codes: R19.7 - Diarrhea, unspecified Assessment & Plan: 03/21: -Diarrhea onset 2-3 days ago. Fever of 39.9 -Stool sample sent for C. diff -> sent for NAAT -Flagyl 500mg Q8H [id number] -COVID and flu swabs (8) GERD (gastroesophageal reflux disease) Status: Chronic Assessment & Plan: 03/21: -Resume home medication famotidine 20mg PO qd Admission Diagnosis Admission Status: Inpatient Order (span 2 midnights) Reason for Inpatient Admission: Arrhythmia Clinical Quality Measures AMI/AHF: ASA po Prior to arrival: No LAURA STRINGER MD 03/21/221920: Allergies and Home Medications Allergies Coded Allergies: No Known Drug Allergies (Unverified , 03/26/21) Patient Home Medication List Home Medication List Reviewed: Yes Acetaminophen (Tylenol Extra Strength) 500 Mg Tablet, 1,000 MG PO Q4H PRN for PAIN-MILD (1-4), (Reported) Entered as Reported by: NEPTALI PUCKETT on 01/15/19 1059 Last Action: Reviewed Albuterol Sulfate (Ventolin Hfa) 1 Puff Puff, 2 PUFF INH Q4H PRN for SHORTNESS OF BREATH, (Reported) Entered as Reported by: KERI BULLOCK on 01/25/22 1518 Last Action: Reviewed Amlodipine Besylate (Amlodipine Besylate) 5 Mg Tablet, 5 MG PO DAILY, (Reported) Entered as Reported by: BALDEV DOWNS on 02/28/22847 Last Action: Continued Apixaban (Eliquis) 5 Mg Tablet, 5 MG PO BID, (Reported) Entered as Reported by: BALDEV DOWNS on 02/28/22847 Last Action: Continued Aripiprazole (Aripiprazole) 30 Mg Tablet, 30 MG PO DAILY, (Reported) Entered as Reported by: BALDEV DOWNS on 02/28/22847 Last Action: Converted Aspirin (Aspirin EC) 81 Mg Tablet.dr, 81 MG PO DAILY, (Reported) Entered as Reported by: KERI BULLOCK on 03/21/221407 Last Action: Continued Atorvastatin Calcium (Atorvastatin Calcium) 40 Mg Tablet, 40 MG PO HS, (Report ed) Entered as Reported by: NEPTALI PUCKETT on 01/15/191058 Last Action: Continued Baclofen (Baclofen) 10 Mg Tablet, 10 MG PO TID, (Reported) Entered as Reported by: BALDEV DOWNS on 01/07/22914 Last Action: Continued Balsalazide Disodium (Balsalazide Disodium) 750 Mg Capsule, 1,500 MG PO TID, (Reported) Entered as Reported by: KERI BULLOCK on 03/21/221407 Last Action: Reviewed Cyclobenzaprine HCl (Cyclobenzaprine HCl) 10 Mg Tablet, 10 MG PO HS, (Reported) Entered as Reported by: BALDEV DOWNS on 02/28/22847 Last Action: Continued Duloxetine HCl (Duloxetine HCl) 60 Mg Capsule.dr, 120 MG PO DAILY, (Reported) Entered as Reported by: KERI BULLOCK on 05/09/20 100 Last Action: Converted Famotidine (Famotidine) 20 Mg Tablet, 20 MG PO HS, (Reported) Entered as Reported by: NEPTALI PUCKETT on 01/15/191058 Last Action: Continued Fenofibrate Nanocrystallized (Fenofibrate) 145 Mg Tablet, 145 MG PO HS, (Rep orted) Entered as Reported by: NEPTALI PUCKETT on 01/15/191058 Last Action: Reviewed Gabapentin (Gabapentin) 600 Mg Tablet, 600 MG PO TID, (Reported) Entered as Reported by: KERI BULLOCK on 05/09/201007 Last Action: Continued Metformin HCl (Metformin HCl) 1,000 Mg Tablet, 1,000 MG PO BID, (Reported) Entered as Reported by: BALDEV DOWNS on 01/07/22914 Last Action: Reviewed Metoprolol Succinate (Metoprolol Succinate) 100 Mg Tab.er.24h, 100 MG PO DAILY, (Reported) Entered as Reported by: BALDEV DOWNS on 02/28/22847 Last Action: Reviewed Multivitamin (Multivitamin) 1 Each Tablet, 1 EACH PO DAILY, (Reported) Entered as Reported by: BALDEV DOWNS on 02/28/22847 Last Action: Reviewed Potassium Chloride (Potassium Chloride) 20 Meq Tab.er.prt, 40 MEQ PO BID, (Reported) Entered as Reported by: BALDEV DOWNS on 01/07/22914 Last Action: Reviewed Ropinirole HCl (Ropinirole HCl) 5 Mg Tablet, 5 MG PO TID, (Reported) Entered as Reported by: SHANNAN DIAZ on 05/22/18 0604 Last Action: Continued Sodium Bicarbonate (Sodium Bicarbonate) 650 Mg Tablet, 650 MG PO BID, (Reported) Entered as Reported by: KERI BULLOCK on 03/21/22 1408 Last Action: Continued Tamsulosin HCl (Flomax) 0.4 Mg Cap, 0.4 MG PO HS, (Reported) Entered as Reported by: BALDEV DOWNS on 01/07/22914 Last Action: Continued Discontinued Medications Cefdinir (Cefdinir) 300 Mg Capsule, 300 MG PO BID Discontinued Reason: No Longer Taking Prescribed by: XAVI LOPEZ on 03/01/221212 Last Action: Discontinued Prednisone (Prednisone) 10 Mg Tab.ds.pk, 10 MG PO DAILY Discontinued Reason: No Longer Taking Prescribed by: XAVI LOPEZ on 03/01/221212 Last Action: Discontinued Past Qwxbupu-Dourfc-Byswhr Hx Family Medical History Completed stroke DVT 19 MOTHER, , Onset:Unknown Diabetes mellitus 19 MOTHER, , Onset:Unknown G8 BROTHER, Onset:Unknown FH: gastric ulcer 19 FATHER, Onset:Unknown Review of Systems Constitutional: diaphoresis, fever, malaise EENTM: no symptoms reported; No mouth pain, No nose congestion, No nose pain Respiratory: dyspnea on exertion, short of breath Cardiovascular: no symptoms reported; No chest pain, No edema, No palpitations Gastrointestinal: No abdominal pain; diarrhea, loss of appetite, nausea; No vomiting Genitourinary: no symptoms reported; No dysuria, No frequency Musculoskeletal: back pain Skin: no symptoms reported Psychiatric/Neurological: No Symptoms Reported Physical Exam General Appearance: Mild Distress (diaphoretic, SOA) HEENT: PERRL/EOMI Neck: Full Range of Motion, Non Tender, Supple Respiratory: Lungs Clear, No Accessory Muscle Use, No Respiratory Distress Cardiovascular: Regular Rate, Rhythm, No Murmur Gastrointestinal: Normal Bowel Sounds, Non Tender, Soft Back: No CVA Tenderness Extremity: Other (trace LE edema bilaterally) Neurologic/Psychiatric: Alert, Oriented x3, No Motor/Sensory Deficits, Normal Mood/Affect, clerical support II-XII Norm as Tested Skin: Normal Color, Warm/Dry Lymphatic: No Adenopathy Supervisory-Addendum Brief Verification & Attestation Participated in pt care: history, physical Personally performed: exam, history Care discussed with: Medical Student Procedures: n/a Verification and Attestation of Medical Student E/M Service A medical student performed and documented this service in my presence. I reviewed and verified all information documented by the medical student and made modifications to such information, when appropriate. I personally performed the physical exam and medical decision making. Laura Stringer, Mar 21, 2022,19:19 AECOPD Atrial Fibrillation with RVR Diarrhea NIDDM PNA CAD [place] GERD HTN - Started on antibiotics for CAP - C. Diff pending - Restart home meds - Titrate oxygen as tolerated ASHIA DALTON Mar 21, 2022 15:40 LAURA STRINGER MD Mar 21, 2022 19:21
[2022-03-21 15:55] VITALS: BP 136/85
[2022-03-21 19:59] VITALS: BP 141/92
[2022-03-21] MEDS: TAMSULOSIN 0.4 MG (FLOMAX) CAP PO SCH (20:50)
[2022-03-21] MEDS: SODIUM BICARBONATE 650 MG TABLET PO SCH (20:50)
[2022-03-21] MEDS: GABAPENTIN 600 MG (NEURONTIN) TAB PO SCH (20:50)
[2022-03-21] MEDS: APIXABAN 5 MG (ELIQUIS) TABLET PO SCH (20:50)
[2022-03-21] MEDS: metroNIDAZOLE 500MG/100ML IVPB 100 ML IV SCH (20:50)
[2022-03-21] MEDS: CYCLOBENZAPRINE 10 MG (FLEXERIL) TAB PO SCH (20:50)
[2022-03-21] MEDS: rOPINIRole 5 MG TAB (REQUIP) PO SCH (20:50)
[2022-03-21] MEDS: FAMOTIDINE 20 MG (PEPCID) TABLET PO SCH (20:50)
[2022-03-21] MEDS ORDERED: RX-CYCLOBENZAPRINE 10 MG (FLEXERIL) TAB PPK#3 PO SCH (21:00)
[2022-03-21] MEDS ORDERED: BACLOFEN 10 MG (LIORESAL) TAB PO SCH (21:00)
[2022-03-22] VITALS (7 sets, daily range): BP systolic 120–147; BP diastolic 81–89
[2022-03-22 05:52] LABS: BASOPHILS % (AUTO) 1 % (0-10); EOSINOPHILS # (AUTO) 0.2 10^3/uL (0.0-0.3); EOSINOPHILS % (AUTO) 3 % (0-10); HEMATOCRIT 44 % (40-54); HEMOGLOBIN 14.5 g/dL (13.3-17.7); LYMPHOCYTES # (AUTO) 1.8 10^3/uL (1.0-4.0); LYMPHOCYTES % (AUTO) 26 % (12-44); MEAN CORPUSCULAR HEMOGLOBIN 30 pg (25-34); MEAN CORPUSCULAR HGB CONC 33 g/dL (32-36); MEAN CORPUSCULAR VOLUME 91 fL (80-99); MEAN PLATELET VOLUME 10.5 fL (9.0-12.2); MONOCYTES # (AUTO) 0.6 10^3/uL (0.0-1.0); MONOCYTES % (AUTO) 9 % (0-12); NEUTROPHILS # (AUTO) 4.2 10^3/uL (1.8-7.8); NEUTROPHILS % (AUTO) 61 % (42-75); PLATELET COUNT 171 10^3/uL (130-400); WHITE BLOOD COUNT 6.8 10^3/uL (4.3-11.0)
[2022-03-22] MEDS: CATHETER FLUSH 10 ML SYR IVP SCH ×3 (06:04→20:16)
[2022-03-22 06:14] LABS: ALBUMIN 3.5 GM/DL (3.2-4.5); BILIRUBIN,TOTAL 0.6 MG/DL (0.1-1.0); CALCIUM 8.5 MG/DL (8.5-10.1); CREATININE SERUM 0.99 MG/DL (0.60-1.30); POTASSIUM 3.4 MMOL/L (3.6-5.0)
[2022-03-22] MEDS: RT-ALBUTEROL SULF 2.5 MG/3 ML PRE-MIX VIAL INH SCH ×4 (07:47→20:22)
[2022-03-22] MEDS: APIXABAN 5 MG (ELIQUIS) TABLET PO SCH ×2 (08:08→20:06)
[2022-03-22] MEDS: amLODIPine 5 MG (NORVASC) TAB PO SCH (08:08)
[2022-03-22] MEDS: meTOprolol SUCCINATE 100 MG (TOPROL XL) TAB PO SCH (08:09)
[2022-03-22] MEDS: rOPINIRole 5 MG TAB (REQUIP) PO SCH ×3 (08:09→20:06)
[2022-03-22] MEDS: BACLOFEN 10 MG (LIORESAL) TAB PO SCH ×3 (08:09→17:32)
[2022-03-22] MEDS: AZITHROMYCIN 250 MG TAB (ZITHROMAX) PO SCH (08:09)
[2022-03-22] MEDS: ASPIRIN E.C. 81 MG (ECOTRIN) TAB PO SCH (08:09)
[2022-03-22] MEDS: DULoxetine 30 MG (CYMBALTA) CAP PO SCH (08:09)
[2022-03-22] MEDS: SODIUM BICARBONATE 650 MG TABLET PO SCH ×2 (08:09→20:06)
[2022-03-22] MEDS: GABAPENTIN 600 MG (NEURONTIN) TAB PO SCH ×3 (08:09→20:06)
[2022-03-22] MEDS: metroNIDAZOLE 500MG/100ML IVPB 100 ML IV SCH ×2 (08:10→20:06)
[2022-03-22] MEDS ORDERED: NON-FORMULARY MEDICATION 1 EA EA (Duloxetine HCl 120 MG) PO SCH (09:00)
[2022-03-22] MEDS ORDERED: ARIPIPRAZOLE 30 MG PO SCH (09:00)
--- NOTE | 2022-03-22 11:56 | Progress Note - Cardiology ---
Cardiology SOAP Progress Note Subjective: Sitting up in the recliner at the bedside States his SOB is better than yesterday No c/o CP, palpitations No c/o LE swelling C/O diarrhea still Objective: I&O/Vital Signs 03/24/22 03/25/22 03/25/22 03/25/22 23:09 01:00 03:48 07:07 Temp 36.3 36.6 Pulse 69 83 82 83 Resp 16 16 B/P (MAP) 133/85 (101) 135/84 (101) Pulse Ox 95 98 O2 Delivery Nasal Cannula Nasal Cannula O2 Flow Rate 3.00 3.00 03/25/22 03/25/22 07:57 08:07 Temp 36.4 Pulse 89 Resp 16 B/P (MAP) 141/82 (101) Pulse Ox 94 95 O2 Delivery Nasal Cannula Nasal Cannula O2 Flow Rate 3.00 3.00 03/25/22 00:00 Intake Total 1820 ml Output Total 2450 ml Balance -630 ml Weight (Pounds): 330 Weight (Ounces): 3.0 Weight (Calculated Kilograms): 149.244663 Constitutional: AAO x 3, well-developed, well-nourished Respiratory: No accessory muscle use, No respiratory distress; chest expansion is symmetric, chest is bilaterally symmetric, other (diminished lower lobes bilat) Cardiovascular: irregularly irregular; No JVD; S1 and S2, systolic murmur Gastrointestional: soft, round; No guarding; audible bowel sounds Extremities: other (mod bilat LE swelling) Neurologic/Psychiatric: grossly intact (moves all extremities) Skin: No rash on exposed areas, No ulcerations on exposed areas Results/Procedures: Labs Laboratory Tests 03/25/22 05:37: White Blood Count 5.9, Red Blood Count 4.66, Hemoglobin 13.9, Hematocrit 43, Mean Corpuscular Volume 92, Mean Corpuscular Hemoglobin 30, Mean Corpuscular Hemoglobin Concent 32, Red Cell Distribution Width 16.2H, Platelet Count 185, Mean Platelet Volume 10.5, Immature Granulocyte % (Auto) 1, Neutrophils (%) (Auto) 59, Lymphocytes (%) (Auto) 26, Monocytes (%) (Auto) 10, Eosinophils (%) (Auto) 4, Basophils (%) (Auto) 1, Neutrophils # (Auto) 3.5, Lymphocytes # (Auto) 1.5, Monocytes # (Auto) 0.6, Eosinophils # (Auto) 0.2, Basophils # (Auto) 0.1, Immature Granulocyte # (Auto) 0.1, Sodium Level 139, Potassium Level 3.6, Chloride Level 105, Carbon Dioxide Level 26, Anion Gap 8, Blood Urea Nitrogen 9, Creatinine 0.97, Estimat Glomerular Filtration Rate 94, BUN/Creatinine Ratio 9, Glucose Level 119H, Calcium Level 8.8, Corrected Calcium 9.2, Total Bilirubin 0.6, Aspartate Amino Transf (AST/SGOT) 38H, Alanine Aminotransferase (ALT/SGPT) 39, Alkaline Phosphatase 66, Total Protein 5.9L, Albumin 3.5 Microbiology 03/21/22 C. difficile DNA Amplification - Final, Complete 03/21/22 C. difficile GDH Antigen & Toxins - Final, Complete A/P: Assessment: Nausea/diarrhea - undetermined etiology Pneumonia - managemet per medical services PAF - currently a-fib with controlled rate - BB and OAC - Echo 01/06/22 (Dr Ndiaye): poor quality study, normal LV size with EF 55 to 60%, PA pressure 20 mmHg Coronary artery disease - cath by Dr. Bauman in July 2017: moderate proximal disease in the ramus branch. There was no other focal disease. Hypertension - controlled Morbid obesity, BMI 54 Tobaccoism - cessation advised H/o alcoholism Anxiety. COPD/obesity hypoventilation system/obstructive sleep apnea, treated with CPAP Non-compliant with f/u Plan: Nausea/diarrhea/fever - management per medical services A-fib with controlled rate - continue home dose of BB and OAC with Eliquis Pneumonia - management per medical services Monitor lab closely Replace electrolytes as indicated Clinical Quality Measures AMI/AHF: ASA po Prior to arrival: LALITA Ham Mar 22, 2022 11:56
[2022-03-22] MEDS ORDERED: KCL 20 MEQ TAB (K-DUR) PO NR (12:00)
--- NOTE | 2022-03-22 13:45 | Progress Note - Hospitalist ---
MAGNUS GARCIA I 03/22/22 1345: Subjective HPI/CC On Admission Date Seen by Provider: Mar 22, 2022 Time Seen by Provider: 10:23 Mr. Forte is a 51 y/o male who presented to the [facility] ED via EMS with right- sided chest pain and SOA. Patient has a PMHx of COPD, CAD, sleep apnea with CPAP at night, HTN, DMT2, GERD, atrial fibrillation, depression, bipolar disorder, and BPH. Subjective/Events-last exam Says he is up and moving when he uses the bathroom. Still gets short of breath with exertion. On 3L O2, but will take off and replace intermittantly. Using NC at night, uses CPAP at home. Diarrhea still present. Denies fever, abdominal pain, urinary frequency, dysurea. Objective Exam Vital Signs Vital Signs Date Time Temp Pulse Resp B/P (MAP) Pulse Ox O2 Delivery O2 Flow Rate FiO2 03/22/22 12:47 116 03/22/22 11:22 36.2 18 145/83 (103) 95 Nasal Cannula 3.00 Capillary Refill : General Appearance: Mild Distress ((Respiratory)) HEENT: PERRL/EOMI, TMs Normal, Other (edentulous) Neck: Full Range of Motion, Normal Inspection, Non Tender, Supple, Carotid Bruit Respiratory: Chest Non Tender, Lungs Clear, Normal Breath Sounds, No Accessory Muscle Use, Respiratory Distress Cardiovascular: Regular Rate, Rhythm, No Edema, No Gallop, No JVD, No Murmur, Normal Peripheral Pulses Gastrointestinal: Normal Bowel Sounds, No Organomegaly, No Pulsatile Mass, Non Tender, Soft Back: Normal Inspection, No CVA Tenderness, No Vertebral Tenderness, Other (Various tattoos) Extremity: Normal Capillary Refill, Normal Inspection, Normal Range of Motion, Non Tender, No Calf Tenderness, Pedal Edema Neurologic/Psychiatric: Alert, Oriented x3, No Motor/Sensory Deficits, Normal Mood/Affect Skin: Normal Color, Warm/Dry Results/Procedures Lab Laboratory Tests 03/22/22 05:36 Patient resulted labs reviewed. Assessment/Plan Assessment and Plan Assess & Plan/Chief Complaint (1) Benign prostate hyperplasia Status: Chronic Assessment & Plan: 03/21: -Monitor urine output -Resume home medication tamsulosin 0.4mg PO qd (2) Mood disorder Status: Chronic Assessment & Plan: 03/21: -Resume home medications: Abilify 30mg PO qd, duloxetine 60mg PO qd (3) Arrhythmia Qualifiers: Assessment & Plan: 03/21: -Atrial fibrillation -Appreciate plan per Cardiology -metoprolol 100mg PO qd, amlodipine 5mg PO qd -Eliquis 5mg PO qd for OAC -Resume home medication: atorvastatin 40mg PO qd (4) COPD (chronic obstructive pulmonary disease) Status: Chronic Assessment & Plan: 03/21: -Resume home medications -> albuterol 3ml INH PRN -Wean oxygen as tolerated (5) HTN (hypertension) Status: Chronic Assessment & Plan: 03/21: -Monitor BP -metoprolol 100mg PO qd, amlodipine 5mg PO qd (6) Diabetes Status: Chronic Qualifiers: Assessment & Plan: 03/21: -Monitor blood glucose levels -Hold metformin -Sliding scale insulin (7) Diarrhea Status: Acute Qualifiers: Qualified Codes: R19.7 - Diarrhea, unspecified Assessment & Plan: 03/21: -Diarrhea onset 2-3 days ago. Fever of 39.9 -Stool sample sent for C. diff -> sent for NAAT -Flagyl 500mg Q8H [id number] -COVID and flu swabs -Could be exacerbation of colitis, Consider checking ESR -Scope (8) GERD (gastroesophageal reflux disease) Status: Chronic Assessment & Plan: 03/21: -Resume home medication famotidine 20mg PO qd Clinical Quality Measures AMI/AHF: ASA po Prior to arrival: EDWINA Niño DO 03/23/22 0547: Supervisory-Addendum Brief Verification & Attestation Participated in pt care: history, MDM, physical Personally performed: exam, history, MDM, supervision of care Care discussed with: Medical Student Procedures: n/a Results interpretation: Verified all documentation Verification and Attestation of Medical Student E/M Service A medical student performed and documented this service in my presence. I reviewed and verified all information documented by the medical student and made modifications to such information, when appropriate. I personally performed the physical exam and medical decision making. Edwina Lopez, Mar 23, 2022,05:47 MAGNUS GARCIA I Mar 22, 2022 13:45 EDWINA LOPEZ DO Mar 23, 2022 05:47
--- NOTE | 2022-03-22 17:12 | Progress Note - Cardiology ---
Cardiology SOAP Progress Note Subjective: Gen weakness Intermittent diarrhea No n/v No cp or palp or syncope Objective: I&O/Vital Signs 03/22/22 03/22/22 03/22/22 03/22/22 07:00 07:16 07:47 09:19 Temp 35.8 Pulse 111 68 Resp 19 B/P (MAP) 147/84 (105) Pulse Ox 95 96 O2 Delivery Nasal Cannula Nasal Cannula Room Air O2 Flow Rate 3.00 3.00 03/22/22 03/22/22 03/22/22 03/22/22 11:10 11:22 12:47 15:09 Temp 36.2 Pulse 63 116 Resp 18 B/P (MAP) 145/83 (103) Pulse Ox 95 94 O2 Delivery Nasal Cannula Nasal Cannula Nasal Cannula O2 Flow Rate 3.00 3.00 3.00 03/22/22 15:35 Temp 36.5 Pulse 92 Resp 20 B/P (MAP) 134/89 (104) Pulse Ox 96 O2 Delivery Nasal Cannula O2 Flow Rate 3.00 03/22/22 00:00 Intake Total 2552 ml Output Total 1625 ml Balance 927 ml Weight (Pounds): 330 Weight (Ounces): 3.0 Weight (Calculated Kilograms): 149.783757 Constitutional: AAO x 3, well-developed, well-nourished Respiratory: No accessory muscle use, No respiratory distress; chest expansion is symmetric, chest is bilaterally symmetric, other (diminished lower lobes bilat) Cardiovascular: irregularly irregular; No JVD; S1 and S2, systolic murmur Gastrointestional: soft, round; No guarding; audible bowel sounds Extremities: other (mod bilat LE swelling) Neurologic/Psychiatric: grossly intact (moves all extremities) Skin: No rash on exposed areas, No ulcerations on exposed areas Results/Procedures: Labs Laboratory Tests 03/22/22 05:36: White Blood Count 6.8, Red Blood Count 4.86, Hemoglobin 14.5, Hematocrit 44, Mean Corpuscular Volume 91, Mean Corpuscular Hemoglobin 30, Mean Corpuscular Hemoglobin Concent 33, Red Cell Distribution Width 16.8H, Platelet Count 171, Mean Platelet Volume 10.5, Immature Granulocyte % (Auto) 1, Neutrophils (%) (Auto) 61, Lymphocytes (%) (Auto) 26, Monocytes (%) (Auto) 9, Eosinophils (%) (Auto) 3, Basophils (%) (Auto) 1, Neutrophils # (Auto) 4.2, Lymphocytes # (Auto) 1.8, Monocytes # (Auto) 0.6, Eosinophils # (Auto) 0.2, Basophils # (Auto) 0.0, Immature Granulocyte # (Auto) 0.1, Sodium Level 138, Potassium Level 3.4L, Chloride Level 106, Carbon Dioxide Level 23, Anion Gap 9, Blood Urea Nitrogen 9, Creatinine 0.99, Estimat Glomerular Filtration Rate 92, BUN/Creatinine Ratio 9, Glucose Level 133H, Calcium Level 8.5, Corrected Calcium 8.9, Total Bilirubin 0.6, Aspartate Amino Transf (AST/SGOT) 51H, Alanine Aminotransferase (ALT/SGPT) 37, Alkaline Phosphatase 60, Total Protein 6.0L, Albumin 3.5 Microbiology 03/21/22 C. difficile DNA Amplification - Final, Complete 03/21/22 C. difficile GDH Antigen & Toxins - Final, Complete Laboratory Tests 03/21/22 04:15 03/22/22 05:36 A/P: Assessment: Nausea/diarrhea - undetermined etiology Pneumonia - managemet per medical services PAF - currently a-fib with controlled rate - BB and OAC - Echo 01/06/22 (Dr Ndiaye): poor quality study, normal LV size with EF 55 to 60%, PA pressure 20 mmHg Coronary artery disease - cath by Dr. Bauman in July 2017: moderate proximal disease in the ramus branch. There was no other focal disease. Hypertension - controlled Morbid obesity, BMI 54 Tobaccoism - cessation advised H/o alcoholism Anxiety. COPD/obesity hypoventilation system/obstructive sleep apnea, treated with CPAP Non-compliant with f/u Plan: Nausea/diarrhea/fever - management per medical services A-fib with controlled rate - continue home dose of BB and OAC with Eliquis Pneumonia - management per medical services Monitor lab closely Replace electrolytes as indicated Clinical Quality Measures AMI/AHF: ASA po Prior to arrival: VIDA Dickey MD FACP FAC CCDS Mar 22, 2022 17:12
[2022-03-22] MEDS: CYCLOBENZAPRINE 10 MG (FLEXERIL) TAB PO SCH (20:06)
[2022-03-22] MEDS: FAMOTIDINE 20 MG (PEPCID) TABLET PO SCH (20:06)
[2022-03-22] MEDS: TAMSULOSIN 0.4 MG (FLOMAX) CAP PO SCH (20:06)
[2022-03-23] VITALS (7 sets, daily range): BP systolic 118–165; BP diastolic 70–103
[2022-03-23] MEDS: CATHETER FLUSH 10 ML SYR IVP SCH ×3 (05:14→20:45)
[2022-03-23 06:30] LABS: BASOPHILS # (AUTO) 0.1 10^3/uL (0.0-0.1); BASOPHILS % (AUTO) 1 % (0-10); EOSINOPHILS # (AUTO) 0.2 10^3/uL (0.0-0.3); EOSINOPHILS % (AUTO) 3 % (0-10); HEMATOCRIT 42 % (40-54); HEMOGLOBIN 13.8 g/dL (13.3-17.7); LYMPHOCYTES # (AUTO) 1.5 10^3/uL (1.0-4.0); LYMPHOCYTES % (AUTO) 25 % (12-44); MEAN CORPUSCULAR HEMOGLOBIN 30 pg (25-34); MEAN CORPUSCULAR HGB CONC 33 g/dL (32-36); MEAN CORPUSCULAR VOLUME 92 fL (80-99); MEAN PLATELET VOLUME 10.3 fL (9.0-12.2); MONOCYTES # (AUTO) 0.6 10^3/uL (0.0-1.0); MONOCYTES % (AUTO) 9 % (0-12); NEUTROPHILS # (AUTO) 3.8 10^3/uL (1.8-7.8); NEUTROPHILS % (AUTO) 61 % (42-75); PLATELET COUNT 173 10^3/uL (130-400); WHITE BLOOD COUNT 6.2 10^3/uL (4.3-11.0)
[2022-03-23 06:47] LABS: ALBUMIN 3.5 GM/DL (3.2-4.5); BILIRUBIN,TOTAL 0.6 MG/DL (0.1-1.0); CALCIUM 8.6 MG/DL (8.5-10.1); CREATININE SERUM 0.99 MG/DL (0.60-1.30); POTASSIUM 3.6 MMOL/L (3.6-5.0); TOTAL PROTEIN 5.9 GM/DL (6.4-8.2)
--- NOTE | 2022-03-23 06:49 | Progress Note - Hospitalist ---
Subjective HPI/CC On Admission Date Seen by Provider: Mar 23, 2022 Time Seen by Provider: 11:00 Mr. Forte is a 51 y/o male who presented to the [facility] ED via EMS with right- sided chest pain and SOA. Patient has a PMHx of COPD, CAD, sleep apnea with CPAP at night, HTN, DMT2, GERD, atrial fibrillation, depression, bipolar disorder, an d BPH. Subjective/Events-last exam Much improved On O2 still Telemetry maintained Took shower More formed loose stools and improving Review of Systems General: Fatigue, Malaise Objective Exam Vital Signs Vital Signs Date Time Temp Pulse Resp B/P (MAP) Pulse Ox O2 Delivery O2 Flow Rate FiO2 03/23/22 12:57 97 03/23/22 11:15 36.6 20 133/70 (91) 93 Nasal Cannula 3.00 Capillary Refill : General Appearance: No Apparent Distress, WD/WN, Chronically ill, Obese Respiratory: Lungs Clear, Normal Breath Sounds Cardiovascular: Regular Rate, Rhythm Neurologic/Psychiatric: Alert, Oriented x3 Results/Procedures Lab Laboratory Tests 03/23/22 05:28 Patient resulted labs reviewed. Assessment/Plan Assessment and Plan Assess & Plan/Chief Complaint Assess & Plan/Chief Complaint (1) Benign prostate hyperplasia Status: Chronic Assessment & Plan: 03/21: -Monitor urine output -Resume home medication tamsulosin 0.4mg PO qd (2) Mood disorder Status: Chronic Assessment & Plan: 03/21: -Resume home medications: Abilify 30mg PO qd, duloxetine 60mg PO qd (3) Arrhythmia Qualifiers: Assessment & Plan: 03/21: -Atrial fibrillation -Appreciate plan per Cardiology -metoprolol 100mg PO qd, amlodipine 5mg PO qd -Eliquis 5mg PO qd for OAC -Resume home medication: atorvastatin 40mg PO qd (4) COPD (chronic obstructive pulmonary disease) Status: Chronic Assessment & Plan: 03/21: -Resume home medications -> albuterol 3ml INH PRN -Wean oxygen as tolerated (5) HTN (hypertension) Status: Chronic Assessment & Plan: 03/21: -Monitor BP -metoprolol 100mg PO qd, amlodipine 5mg PO qd (6) Diabetes Status: Chronic Qualifiers: Assessment & Plan: 03/21: -Monitor blood glucose levels -Hold metformin -Sliding scale insulin (7) Diarrhea Status: Acute Qualifiers: Qualified Codes: R19.7 - Diarrhea, unspecified Assessment & Plan: 03/21: -Diarrhea onset 2-3 days ago. Fever of 39.9 -Stool sample sent for C. diff -> sent for NAAT -Flagyl 500mg Q8H [id number] -COVID and flu swabs -Could be exacerbation of colitis, Consider checking ESR -Scope Clinical Quality Measures AMI/AHF: ASA po Prior to arrival: XAVI Niño DO Mar 23, 2022 06:49
[2022-03-23] MEDS: RT-ALBUTEROL SULF 2.5 MG/3 ML PRE-MIX VIAL INH SCH ×3 (07:40→20:52)
[2022-03-23] MEDS: BACLOFEN 10 MG (LIORESAL) TAB PO SCH ×3 (09:48→18:11)
[2022-03-23] MEDS: amLODIPine 5 MG (NORVASC) TAB PO SCH (09:48)
[2022-03-23] MEDS: SODIUM BICARBONATE 650 MG TABLET PO SCH ×2 (09:48→20:44)
[2022-03-23] MEDS: AZITHROMYCIN 250 MG TAB (ZITHROMAX) PO SCH (09:48)
[2022-03-23] MEDS: ASPIRIN E.C. 81 MG (ECOTRIN) TAB PO SCH (09:48)
[2022-03-23] MEDS: APIXABAN 5 MG (ELIQUIS) TABLET PO SCH ×2 (09:48→20:44)
[2022-03-23] MEDS: meTOprolol SUCCINATE 100 MG (TOPROL XL) TAB PO SCH (09:48)
[2022-03-23] MEDS: GABAPENTIN 600 MG (NEURONTIN) TAB PO SCH ×3 (09:48→20:45)
[2022-03-23] MEDS: rOPINIRole 5 MG TAB (REQUIP) PO SCH ×3 (09:48→20:44)
[2022-03-23] MEDS: DULoxetine 30 MG (CYMBALTA) CAP PO SCH (09:48)
[2022-03-23] MEDS: metroNIDAZOLE 500MG/100ML IVPB 100 ML IV SCH ×2 (09:48→20:44)
--- NOTE | 2022-03-23 13:12 | Progress Note - Cardiology ---
Cardiology SOAP Progress Note Subjective: No cp or palp or syncop Improvement of n/v/d No shortness of breath at rest Gen weakness and malaise are present Objective: I&O/Vital Signs 03/23/22 03/23/22 03/23/22 03/23/22 04:19 07:00 07:23 07:40 Temp 36.7 36.3 Pulse 97 85 93 Resp 16 18 B/P (MAP) 130/76 (94) 129/71 (90) Pulse Ox 97 96 95 O2 Delivery Nasal Cannula Nasal Cannula Nasal Cannula O2 Flow Rate 3.00 3.00 3.00 03/23/22 03/23/22 03/23/22 08:31 11:15 12:57 Temp 36.3 36.6 Pulse 93 99 97 Resp 20 B/P (MAP) 133/70 (91) Pulse Ox 95 93 O2 Delivery Nasal Cannula O2 Flow Rate 3.00 03/23/22 00:00 Intake Total 1420 ml Output Total 580 ml Balance 840 ml Weight (Pounds): 330 Weight (Ounces): 3.0 Weight (Calculated Kilograms): 149.391496 Constitutional: AAO x 3, well-developed, well-nourished Respiratory: No accessory muscle use, No respiratory distress; chest expansion is symmetric, chest is bilaterally symmetric, other (diminished lower lobes bilat) Cardiovascular: irregularly irregular; No JVD; S1 and S2, systolic murmur Gastrointestional: soft, round; No guarding; audible bowel sounds Extremities: other (mod bilat LE swelling) Neurologic/Psychiatric: grossly intact (moves all extremities) Skin: No rash on exposed areas, No ulcerations on exposed areas Results/Procedures: Labs Laboratory Tests 03/23/22 05:28: White Blood Count 6.2, Red Blood Count 4.60, Hemoglobin 13.8, Hematocrit 42, M ernesto Corpuscular Volume 92, Mean Corpuscular Hemoglobin 30, Mean Corpuscular Hemoglobin Concent 33, Red Cell Distribution Width 16.8H, Platelet Count 173, Mean Platelet Volume 10.3, Immature Granulocyte % (Auto) 1, Neutrophils (%) (Auto) 61, Lymphocytes (%) (Auto) 25, Monocytes (%) (Auto) 9, Eosinophils (%) (Auto) 3, Basophils (%) (Auto) 1, Neutrophils # (Auto) 3.8, Lymphocytes # (Auto) 1.5, Monocytes # (Auto) 0.6, Eosinophils # (Auto) 0.2, Basophils # (Auto) 0.1, Immature Granulocyte # (Auto) 0.1, Sodium Level 138, Potassium Level 3.6, Chloride Level 104, Carbon Dioxide Level 24, Anion Gap 10, Blood Urea Nitrogen 9, Creatinine 0.99, Estimat Glomerular Filtration Rate 92, BUN/Creatinine Ratio 9, Glucose Level 123H, Calcium Level 8.6, Corrected Calcium 9.0, Total Bilirubin 0.6, Aspartate Amino Transf (AST/SGOT) 44H, Alanine Aminotransferase (ALT/SGPT) 39, Alkaline Phosphatase 61, Total Protein 5.9L, Albumin 3.5 Microbiology 03/21/22 C. difficile DNA Amplification - Final, Complete 03/21/22 C. difficile GDH Antigen & Toxins - Final, Complete Laboratory Tests 03/22/22 05:36 03/23/22 05:28 A/P: Assessment: Nausea/diarrhea - undetermined etiology, managed by the [email or web address] Pneumonia - managemet per Medical services PAF - currently a-fib with controlled rate - BB and OAC - Echo 01/06/22 (Dr Ndiaye): poor quality study, normal LV size with EF 55 to 60%, PA pressure 20 mmHg Coronary artery disease - cath by Dr. Bauman in July 2017: moderate proximal disease in the ramus branch. There was no other focal disease. Hypertension - controlled Morbid obesity, BMI 54 Tobaccoism - cessation advised H/o alcoholism Anxiety. COPD/obesity hypoventilation system/obstructive sleep apnea, treated with CPAP Non-compliant with f/u Plan: * We reviewed and addressed his CV issues and answered CV-related questions * Monitor labs Clinical Quality Measures AMI/AHF: ASA po Prior to arrival: VIDA Dickey MD [facility] CCDS Mar 23, 2022 13:12
[2022-03-23] MEDS: TAMSULOSIN 0.4 MG (FLOMAX) CAP PO SCH (20:44)
[2022-03-23] MEDS: CYCLOBENZAPRINE 10 MG (FLEXERIL) TAB PO SCH (20:44)
[2022-03-23] MEDS: FAMOTIDINE 20 MG (PEPCID) TABLET PO SCH (20:44)
[2022-03-24 03:30] VITALS: BP 117/72
[2022-03-24] MEDS: CATHETER FLUSH 10 ML SYR IVP SCH ×3 (06:00→20:06)
[2022-03-24 06:27] LABS: BASOPHILS % (AUTO) 1 % (0-10); EOSINOPHILS # (AUTO) 0.3 10^3/uL (0.0-0.3); EOSINOPHILS % (AUTO) 4 % (0-10); HEMATOCRIT 44 % (40-54); HEMOGLOBIN 14.5 g/dL (13.3-17.7); LYMPHOCYTES # (AUTO) 1.5 10^3/uL (1.0-4.0); LYMPHOCYTES % (AUTO) 27 % (12-44); MEAN CORPUSCULAR HEMOGLOBIN 30 pg (25-34); MEAN CORPUSCULAR HGB CONC 33 g/dL (32-36); MEAN CORPUSCULAR VOLUME 92 fL (80-99); MEAN PLATELET VOLUME 10.2 fL (9.0-12.2); MONOCYTES # (AUTO) 0.6 10^3/uL (0.0-1.0); MONOCYTES % (AUTO) 10 % (0-12); NEUTROPHILS # (AUTO) 3.3 10^3/uL (1.8-7.8); NEUTROPHILS % (AUTO) 57 % (42-75); PLATELET COUNT 180 10^3/uL (130-400); WHITE BLOOD COUNT 5.7 10^3/uL (4.3-11.0)
[2022-03-24 06:38] LABS: ALBUMIN 3.6 GM/DL (3.2-4.5); POTASSIUM 3.9 MMOL/L (3.6-5.0)
[2022-03-24 06:39] LABS: CALCIUM 8.8 MG/DL (8.5-10.1)
[2022-03-24 06:41] LABS: TOTAL PROTEIN 6.1 GM/DL (6.4-8.2)
[2022-03-24 06:42] LABS: BILIRUBIN,TOTAL 0.5 MG/DL (0.1-1.0)
[2022-03-24] MEDS: RT-ALBUTEROL SULF 2.5 MG/3 ML PRE-MIX VIAL INH SCH ×3 (07:49→22:15)
--- NOTE | 2022-03-24 07:57 | Progress Note - Hospitalist ---
Subjective HPI/CC On Admission Date Seen by Provider: Mar 24, 2022 Time Seen by Provider: 11:00 Mr. Forte is a 51 y/o male who presented to the [facility] ED via EMS with right- sided chest pain and SOA. Patient has a PMHx of COPD, CAD, sleep apnea with CPAP at night, HTN, DMT2, GERD, atrial fibrillation, depression, bipolar disorder, an d BPH. Subjective/Events-last exam Patient doing a lot better Stools are formed No pain is reported Oxygen still maintained Review of Systems General: Fatigue, Malaise Objective Exam Vital Signs Vital Signs Date Time Temp Pulse Resp B/P (MAP) Pulse Ox O2 Delivery O2 Flow Rate FiO2 03/24/22 12:03 36.4 96 20 109/75 (86) 97 Nasal Cannula 3.00 Capillary Refill : General Appearance: No Apparent Distress, WD/WN, Chronically ill, Obese Respiratory: Lungs Clear, Normal Breath Sounds, Decreased Breath Sounds Cardiovascular: Regular Rate, Rhythm Neurologic/Psychiatric: Alert, Oriented x3, No Motor/Sensory Deficits, Normal Mood/Affect Results/Procedures Lab Laboratory Tests 03/24/22 06:10 Patient resulted labs reviewed. Assessment/Plan Assessment and Plan Assess & Plan/Chief Complaint Assess & Plan/Chief Complaint (1) Benign prostate hyperplasia Status: Chronic Assessment & Plan: 03/21: -Monitor urine output -Resume home medication tamsulosin 0.4mg PO qd (2) Mood disorder Status: Chronic Assessment & Plan: 03/21: -Resume home medications: Abilify 30mg PO qd, duloxetine 60mg PO qd (3) Arrhythmia Qualifiers: Assessment & Plan: 03/21: -Atrial fibrillation -Appreciate plan per Cardiology -metoprolol 100mg PO qd, amlodipine 5mg PO qd -Eliquis 5mg PO qd for OAC -Resume home medication: atorvastatin 40mg PO qd (4) COPD (chronic obstructive pulmonary disease) Status: Chronic Assessment & Plan: 03/21: -Resume home medications -> albuterol 3ml INH PRN -Wean oxygen as tolerated (5) HTN (hypertension) Status: Chronic Assessment & Plan: 03/21: -Monitor BP -metoprolol 100mg PO qd, amlodipine 5mg PO qd (6) Diabetes Status: Chronic Qualifiers: Assessment & Plan: 03/21: -Monitor blood glucose levels -Hold metformin -Sliding scale insulin (7) Diarrhea Status: Acute Qualifiers: Qualified Codes: R19.7 - Diarrhea, unspecified Assessment & Plan: 03/21: -Diarrhea onset 2-3 days ago. Fever of 39.9 -Stool sample sent for C. diff -> sent for NAAT -Flagyl 500mg Q8H [id number] -COVID and flu swabs -Could be exacerbation of colitis, Consider checking ESR -Scope Clinical Quality Measures AMI/AHF: ASA po Prior to arrival: XAVI Niño DO Mar 24, 2022 07:57
[2022-03-24 08:02] VITALS: BP 133/77
[2022-03-24] MEDS: meTOprolol SUCCINATE 100 MG (TOPROL XL) TAB PO SCH (09:37)
[2022-03-24] MEDS: rOPINIRole 5 MG TAB (REQUIP) PO SCH ×3 (09:37→20:05)
[2022-03-24] MEDS: BACLOFEN 10 MG (LIORESAL) TAB PO SCH ×3 (09:37→17:48)
[2022-03-24] MEDS: DULoxetine 30 MG (CYMBALTA) CAP PO SCH (09:37)
[2022-03-24] MEDS: AZITHROMYCIN 250 MG TAB (ZITHROMAX) PO SCH (09:37)
[2022-03-24] MEDS: amLODIPine 5 MG (NORVASC) TAB PO SCH (09:37)
[2022-03-24] MEDS: APIXABAN 5 MG (ELIQUIS) TABLET PO SCH ×2 (09:38→20:05)
[2022-03-24] MEDS: metroNIDAZOLE 500MG/100ML IVPB 100 ML IV SCH ×2 (09:38→20:06)
[2022-03-24] MEDS: ASPIRIN E.C. 81 MG (ECOTRIN) TAB PO SCH (09:38)
[2022-03-24] MEDS: SODIUM BICARBONATE 650 MG TABLET PO SCH ×2 (09:38→20:05)
[2022-03-24] MEDS: GABAPENTIN 600 MG (NEURONTIN) TAB PO SCH ×3 (09:38→20:05)
[2022-03-24 12:03] VITALS: BP 109/75
--- NOTE | 2022-03-24 14:03 | Progress Note - Cardiology ---
Cardiology SOAP Progress Note Subjective: Gen weakness and malaise Symptoms of n/v/d are improving No focal weakness No shortness of breath at rest, but short of breath with mild activity, chronic No cp or palp or syncope Objective: I&O/Vital Signs 03/24/22 03/24/22 03/24/22 03/24/22 03:30 07:00 07:50 08:00 Temp 36.8 Pulse 84 93 Resp 16 B/P (MAP) 117/72 (87) Pulse Ox 96 95 O2 Delivery Nasal Cannula Nasal Cannula Room Air O2 Flow Rate 3.00 3.00 03/24/22 03/24/22 03/24/22 08:02 12:03 12:51 Temp 36.3 36.4 Pulse 90 96 100 Resp 20 20 B/P (MAP) 133/77 (95) 109/75 (86) Pulse Ox 94 97 O2 Delivery Room Air Nasal Cannula O2 Flow Rate 3.00 03/24/22 00:00 Intake Total 1180 ml Output Total 2000 ml Balance -820 ml Weight (Pounds): 330 Weight (Ounces): 3.0 Weight (Calculated Kilograms): 149.158246 Constitutional: AAO x 3, well-developed, well-nourished Respiratory: No accessory muscle use, No respiratory distress; chest expansion is symmetric, chest is bilaterally symmetric, other (diminished lower lobes bilat) Cardiovascular: irregularly irregular; No JVD; S1 and S2, systolic murmur Gastrointestional: soft, round; No guarding; audible bowel sounds Extremities: other (mod bilat LE swelling) Neurologic/Psychiatric: grossly intact (moves all extremities) Skin: No rash on exposed areas, No ulcerations on exposed areas Results/Procedures: Labs Laboratory Tests 03/24/22 06:10: White Blood Count 5.7, Red Blood Count 4.81, Hemoglobin 14.5, Hematocrit 44, Mean Corpuscular Volume 92, Mean Corpuscular Hemoglobin 30, Mean Corpuscular Hemoglobin Concent 33, Red Cell Distribution Width 16.1H, Platelet Count 180, Mean Platelet Volume 10.2, Immature Granulocyte % (Auto) 1, Neutrophils (%) (Auto) 57, Lymphocytes (%) (Auto) 27, Monocytes (%) (Auto) 10, Eosinophils (%) (Auto) 4, Basophils (%) (Auto) 1, Neutrophils # (Auto) 3.3, Lymphocytes # (Auto) 1.5, Monocytes # (Auto) 0.6, Eosinophils # (Auto) 0.3, Basophils # (Auto) 0.0, Immature Granulocyte # (Auto) 0.1, Sodium Level 140, Potassium Level 3.9, Chloride Level 105, Carbon Dioxide Level 24, Anion Gap 11, Blood Urea Nitrogen 10, Creatinine 1.00, Estimat Glomerular Filtration Rate 91, BUN/Creatinine Ratio 10, Glucose Level 119H, Calcium Level 8.8, Corrected Calcium 9.1, Total Bilirubin 0.5, Aspartate Amino Transf (AST/SGOT) 41H, Alanine Aminotransferase (ALT/SGPT) 39, Alkaline Phosphatase 68, Total Protein 6.1L, Albumin 3.6 Microbiology 03/21/22 C. difficile DNA Amplification - Final, Complete 03/21/22 C. difficile GDH Antigen & Toxins - Final, Complete Laboratory Tests 03/23/22 05:28 03/24/22 06:10 A/P: Assessment: Nausea/diarrhea - undetermined etiology, managed by the [employer] Pneumonia - managemet per Medical services PAF - currently a-fib with controlled rate - BB and OAC - Echo 01/06/22 (Dr Ndiaye): poor quality study, normal LV size with EF 55 to 60%, PA pressure 20 mmHg Coronary artery disease - cath by Dr. Bauman in July 2017: moderate proximal disease in the ramus branch. There was no other focal disease. Hypertension - controlled Morbid obesity, BMI 54 Tobaccoism - cessation advised H/o alcoholism Anxiety. COPD/obesity hypoventilation system/obstructive sleep apnea, treated with CPAP Non-compliant with f/u Plan: * We reviewed and addressed his CV issues and answered CV-related questions * Monitor labs Clinical Quality Measures AMI/AHF: ASA po Prior to arrival: VIDA Dickey MD [facility] CCDS Mar 24, 2022 14:03
[2022-03-24 16:40] VITALS: BP 134/84
[2022-03-24] MEDS: TAMSULOSIN 0.4 MG (FLOMAX) CAP PO SCH (20:05)
[2022-03-24] MEDS: CYCLOBENZAPRINE 10 MG (FLEXERIL) TAB PO SCH (20:05)
[2022-03-24] MEDS: FAMOTIDINE 20 MG (PEPCID) TABLET PO SCH (20:05)
[2022-03-24 20:29] VITALS: BP 134/84
[2022-03-24 23:09] VITALS: BP 133/85
[2022-03-25 03:48] VITALS: BP 135/84
[2022-03-25] MEDS: CATHETER FLUSH 10 ML SYR IVP SCH (05:46)
[2022-03-25 06:15] LABS: BASOPHILS # (AUTO) 0.1 10^3/uL (0.0-0.1); BASOPHILS % (AUTO) 1 % (0-10); EOSINOPHILS # (AUTO) 0.2 10^3/uL (0.0-0.3); EOSINOPHILS % (AUTO) 4 % (0-10); HEMATOCRIT 43 % (40-54); HEMOGLOBIN 13.9 g/dL (13.3-17.7); LYMPHOCYTES # (AUTO) 1.5 10^3/uL (1.0-4.0); LYMPHOCYTES % (AUTO) 26 % (12-44); MEAN CORPUSCULAR HEMOGLOBIN 30 pg (25-34); MEAN CORPUSCULAR HGB CONC 32 g/dL (32-36); MEAN CORPUSCULAR VOLUME 92 fL (80-99); MEAN PLATELET VOLUME 10.5 fL (9.0-12.2); MONOCYTES # (AUTO) 0.6 10^3/uL (0.0-1.0); MONOCYTES % (AUTO) 10 % (0-12); NEUTROPHILS # (AUTO) 3.5 10^3/uL (1.8-7.8); NEUTROPHILS % (AUTO) 59 % (42-75); PLATELET COUNT 185 10^3/uL (130-400); WHITE BLOOD COUNT 5.9 10^3/uL (4.3-11.0)
[2022-03-25 06:35] LABS: ALBUMIN 3.5 GM/DL (3.2-4.5); BILIRUBIN,TOTAL 0.6 MG/DL (0.1-1.0); CALCIUM 8.8 MG/DL (8.5-10.1); CREATININE SERUM 0.97 MG/DL (0.60-1.30); POTASSIUM 3.6 MMOL/L (3.6-5.0); TOTAL PROTEIN 5.9 GM/DL (6.4-8.2)
[2022-03-25 07:57] VITALS: BP 141/82
[2022-03-25] MEDS: RT-ALBUTEROL SULF 2.5 MG/3 ML PRE-MIX VIAL INH SCH (08:06)
[2022-03-25] MEDS: metroNIDAZOLE 500MG/100ML IVPB 100 ML IV SCH (08:21)
[2022-03-25] MEDS: DULoxetine 30 MG (CYMBALTA) CAP PO SCH (08:24)
[2022-03-25] MEDS: amLODIPine 5 MG (NORVASC) TAB PO SCH (08:25)
[2022-03-25] MEDS: SODIUM BICARBONATE 650 MG TABLET PO SCH (08:25)
[2022-03-25] MEDS: rOPINIRole 5 MG TAB (REQUIP) PO SCH (08:25)
[2022-03-25] MEDS: GABAPENTIN 600 MG (NEURONTIN) TAB PO SCH (08:25)
[2022-03-25] MEDS: BACLOFEN 10 MG (LIORESAL) TAB PO SCH (08:25)
[2022-03-25] MEDS: AZITHROMYCIN 250 MG TAB (ZITHROMAX) PO SCH (08:25)
[2022-03-25] MEDS: APIXABAN 5 MG (ELIQUIS) TABLET PO SCH (08:25)
[2022-03-25] MEDS: meTOprolol SUCCINATE 100 MG (TOPROL XL) TAB PO SCH (08:25)
[2022-03-25] MEDS: ASPIRIN E.C. 81 MG (ECOTRIN) TAB PO SCH (08:25)
--- NOTE | 2022-03-25 08:55 | Cardiology Progress Note ---
Subjective Date Seen by Provider: Mar 25, 2022 Time Seen by Provider: 08:51 Subjective/Events-last exam Patient was seen at bedside, laying down comfortably, feeling better Still on oxygen, having dyspnea. Review of Systems General: No Chills, No Night Sweats; Fatigue, Malaise; No Appetite, No Other HEENT: No Head Aches, No Visual Changes, No Eye Pain, No Ear Pain, No Dysphasia, No Sinus Congestion, No Post Nasal Drip, No Sore Throat, No Other Pulmonary: Dyspnea; No Cough, No Pleuritic Chest Pain, No Other Cardiovascular: No: Chest Pain, Palpitations, Orthopnea, Paroxysmal Noc. Dyspnea, Edema, Lt Headedness, Other Objective-Cardiology Exam Last Set of Vital Signs Vital Signs 03/25/22 03/25/22 07:57 08:07 Temp 36.4 Pulse 89 Resp 16 B/P (MAP) 141/82 (101) Pulse Ox 95 O2 Delivery Nasal Cannula O2 Flow Rate 3.00 I&O Intake and Output 03/25/22 00:00 Intake Total 2120 ml Output Total 3500 ml Balance -1380 ml Intake Oral 2120 ml Output Urine Total 3500 ml # Bowel Movements 2 General: Alert, Oriented X3, Cooperative HEENT: Atraumatic, PERRLA Neck: Supple, No JVD, No Thyromegaly Lungs: Normal Air Movement, Other (Bilateral rhonchi) Heart: Regular Rate, Normal S1, Normal S2, No Murmurs Abdomen: Normal Bowel Sounds, Soft, No Tenderness, No Hepatosplenomegaly, No Masses Extremities: No Clubbing, No Cyanosis, No Edema, Normal Pulses, No Tenderness/Swelling Skin: No Rashes, No Breakdown, No Significant Lesion Neuro: Normal Gait, Normal Speech, Strength at 5/5 X4 Ext, Normal Tone, Sensation Intact Psych/Mental Status: Mental Status NL, Mood NL Results Lab Laboratory Tests 03/25/22 05:37 A/P-Cardiology Admission Diagnosis Pneumonia Nausea vomiting Paroxysmal atrial fibrillation Hypertension Assessment/Plan Nausea/diarrhea, reporting improvement. Maintained on Flagyl Managed by primary care team. Paroxysmal atrial fibrillation, controlled rate Maintained on oral anticoagulation. Continue on Toprol Continue to monitor 2D echo done in January 2022, overall poor quality, normal LV size and systolic function ejection fraction 55 to 60%, PA pressure 20 mmHg Coronary artery disease Cath by Dr. Bauman in July 2017: moderate proximal disease in the ramus branch. There was no other focal disease. Hypertension Controlled on current medication, continue to monitor Morbid obesity, BMI 54 Tobaccoism, educated about smoking cessation H/o alcoholism Anxiety. COPD/obesity hypoventilation system/obstructive sleep apnea, treated with CPAP Non-compliant with f/u KELSEY GOMEZ MD Mar 25, 2022 08:55
[2022-03-25] MEDS ORDERED: metroNIDAZOLE 500 MG (FLAGYL) TAB PO SCH ×2 (09:45→13:00)
[2022-03-25] MEDS ORDERED: METR-145 PO (10:27)
--- NOTE | 2022-03-25 10:27 | Discharge Summary ---
Discharge Summary Hospital Course Problems/Dx: (1) Benign prostate hyperplasia Status: Chronic (2) Mood disorder Status: Chronic (3) Arrhythmia Qualifiers: (4) COPD (chronic obstructive pulmonary disease) Status: Chronic (5) HTN (hypertension) Status: Chronic (6) Diabetes Status: Chronic Qualifiers: (7) Diarrhea Status: Acute Qualifiers: Qualified Codes: R19.7 - Diarrhea, unspecified (8) GERD (gastroesophageal reflux disease) Status: Chronic Hospital Course Date of Admission: Mar 20, 2022 at 19:53 Admission Diagnosis : Family Physician/Provider: Nathaniel Martinez MD Date of Discharge: 03/25/22 Discharge Diagnosis: [ ] Hospital Course: Dov Amin is a 51 year old male admitted to the hospital on 03/20 for acute exacerbation of COPD, pneumonia and atrial fibrillation. His atrial fibrillation was rate controlled with oral beta jem and oral anticoagulation. Cardiac echo in Jan 2022 showed ejection fraction 55 to 60%. While in the hospital, he had several episodes of diarrhea and tested positive for C. diff which resolved following treatment with Flagyl. Through his hospital course he continued to require 3L of oxygen when at rest. He will be discharged on home oxygen pending home O2 eval, which should continue to be weaned as tolerated. MAGNUS GARCIA I Labs and Pending Lab Test: Laboratory Tests 03/25/22 05:37: White Blood Count 5.9, Red Blood Count 4.66, Hemoglobin 13.9, Hematocrit 43, Mean Corpuscular Volume 92, Mean Corpuscular Hemoglobin 30, Mean Corpuscular Hemoglobin Concent 32, Red Cell Distribution Width 16.2H, Platelet Count 185, Mean Platelet Volume 10.5, Immature Granulocyte % (Auto) 1, Neutrophils (%) (Auto) 59, Lymphocytes (%) (Auto) 26, Monocytes (%) (Auto) 10, Eosinophils (%) (Auto) 4, Basophils (%) (Auto) 1, Neutrophils # (Auto) 3.5, Lymphocytes # (Auto) 1.5, Monocytes # (Auto) 0.6, Eosinophils # (Auto) 0.2, Basophils # (Auto) 0.1, Immature Granulocyte # (Auto) 0.1, Sodium Level 139, Potassium Level 3.6, Chloride Level 105, Carbon Dioxide Level 26, Anion Gap 8, Blood Urea Nitrogen 9, Creatinine 0.97, Estimat Glomerular Filtration Rate 94, BUN/Creatinine Ratio 9, Glucose Level 119H, Calcium Level 8.8, Corrected Calcium 9.2, Total Bilirubin 0.6, Aspartate Amino Transf (AST/SGOT) 38H, Alanine Aminotransferase (ALT/SGPT) 39, Alkaline Phosphatase 66, Total Protein 5.9L, Albumin 3.5 Microbiology 03/21/22 C. difficile DNA Amplification - Final, Complete 03/21/22 C. difficile GDH Antigen & Toxins - Final, Complete Home Meds Active Metronidazole 500 Mg Tablet 500 Mg PO TID Reported Sodium Bicarbonate 650 Mg Tablet 650 Mg PO BID LAST FILLED 01-15-2022 #60/30 DAY SUPPLY Aspirin EC (Aspirin) 81 Mg Tablet.dr 81 Mg PO DAILY Balsalazide Disodium 750 Mg Capsule 1,500 Mg PO TID TAKES 2 (750MG) CAPS Amlodipine Besylate 5 Mg Tablet 5 Mg PO DAILY LAST FILLED 01-26-2022 #30/30 DAY SUPPLY Aripiprazole 30 Mg Tablet 30 Mg PO DAILY Eliquis (Apixaban) 5 Mg Tablet 5 Mg PO BID Metoprolol Succinate 100 Mg Tab.er.24h 100 Mg PO DAILY Cyclobenzaprine HCl 10 Mg Tablet 10 Mg PO HS Multivitamin 1 Each Tablet 1 Each PO DAILY Ventolin Hfa (Albuterol Sulfate) 1 Puff Puff 2 Puff INH Q4H PRN Flomax (Tamsulosin HCl) 0.4 Mg Cap 0.4 Mg PO HS Metformin HCl 1,000 Mg Tablet 1,000 Mg PO BID Potassium Chloride 20 Meq Tab.er.prt 40 Meq PO BID TAKES 2 (20MEQ) TABLETS LAST FILLED 02-02-2022 #120/30 DAY SUPPLY Baclofen 10 Mg Tablet 10 Mg PO TID Gabapentin 600 Mg Tablet 600 Mg PO TID Duloxetine HCl 60 Mg Capsule.dr 120 Mg PO DAILY TAKES 2 (60MG) CAPSULES Tylenol Extra Strength (Acetaminophen) 500 Mg Tablet 1,000 Mg PO Q4H PRN Atorvastatin Calcium 40 Mg Tablet 40 Mg PO HS Famotidine 20 Mg Tablet 20 Mg PO HS Fenofibrate (Fenofibrate Nanocrystallized) 145 Mg Tablet 145 Mg PO HS Ropinirole HCl 5 Mg Tablet 5 Mg PO TID Assessment/Pt Instructions PCP 1 week Discharge Planning: <30 minutes discharge planning Discharge Instructions Discharge Diet: No Restrictions Discharge Physical Examination Vital Signs Vital Signs Date Time Temp Pulse Resp B/P (MAP) Pulse Ox O2 Delivery O2 Flow Rate FiO2 03/25/22 08:07 95 Nasal Cannula 3.00 03/25/22 07:57 36.4 89 16 141/82 (101) General Appearance: No Apparent Distress, WD/WN Allergies: Coded Allergies: No Known Drug Allergies (Unverified , 03/26/21) Discharge Summary Date of Admission Mar 20, 2022 at 19:53 Date of Discharge Discharge Date: Mar 25, 2022 Discharge Diagnosis Assess & Plan/Chief Complaint (1) Benign prostate hyperplasia Status: Chronic Assessment & Plan: 03/21: -Monitor urine output -Resume home medication tamsulosin 0.4mg PO qd (2) Mood disorder Status: Chronic Assessment & Plan: 03/21: -Resume home medications: Abilify 30mg PO qd, duloxetine 60mg PO qd (3) Arrhythmia Qualifiers: Assessment & Plan: 03/21: -Atrial fibrillation -Appreciate plan per Cardiology -metoprolol 100mg PO qd, amlodipine 5mg PO qd -Eliquis 5mg PO qd for OAC -Resume home medication: atorvastatin 40mg PO qd (4) COPD (chronic obstructive pulmonary disease) Status: Chronic Assessment & Plan: 03/21: -Resume home medications -> albuterol 3ml INH PRN -Wean oxygen as tolerated (5) HTN (hypertension) Status: Chronic Assessment & Plan: 03/21: -Monitor BP -metoprolol 100mg PO qd, amlodipine 5mg PO qd (6) Diabetes Status: Chronic Qualifiers: Assessment & Plan: 03/21: -Monitor blood glucose levels -Hold metformin -Sliding scale insulin (7) Diarrhea Status: Acute Qualifiers: Qualified Codes: R19.7 - Diarrhea, unspecified Assessment & Plan: 03/21: -Diarrhea onset 2-3 days ago. Fever of 39.9 -Stool sample sent for C. diff -> sent for NAAT -Flagyl 500mg Q8H [id number] -COVID and flu swabs -Could be exacerbation of colitis, Consider checking ESR -Scope (1) Benign prostate hyperplasia Status: Chronic Assessment & Plan: 03/21: -Monitor urine output -Resume home medication tamsulosin 0.4mg PO qd (2) Mood disorder Status: Chronic Assessment & Plan: 03/21: -Resume home medications: Abilify 30mg PO qd, duloxetine 60mg PO qd (3) Arrhythmia Assessment & Plan: 03/21: -Atrial fibrillation -Appreciate plan per Cardiology -metoprolol 100mg PO qd, amlodipine 5mg PO qd -Eliquis 5mg PO qd for OAC -Resume home medication: atorvastatin 40mg PO qd Qualifiers: (4) COPD (chronic obstructive pulmonary disease) Status: Chronic Assessment & Plan: 03/21: -Resume home medications -> albuterol 3ml INH PRN (5) HTN (hypertension) Status: Chronic Assessment & Plan: 03/21: -Monitor BP -metoprolol 100mg PO qd, amlodipine 5mg PO qd (6) Diabetes Status: Chronic Assessment & Plan: 03/21: -Monitor blood glucose levels -Hold metformin -Sliding scale insulin Qualifiers: (7) Diarrhea Status: Acute Assessment & Plan: 03/21: -Diarrhea onset 2-3 days ago. Fever of 39.9 -Stool sample sent for C. diff -> sent for NAAT -Flagyl 500mg Q8H [id number] -COVID and flu swabs Qualifiers: Qualified Codes: R19.7 - Diarrhea, unspecified (8) GERD (gastroesophageal reflux disease) Status: Chronic Assessment & Plan: 03/21: -Resume home medication famotidine 20mg PO qd Clinical Quality Measures AMI/AHF: ASA po Prior to arrival: XAVI Niño DO Mar 25, 2022 10:27
--- NOTE | 2022-03-25 11:09 | Progress Note ---
MAGNUS GARCIA I 03/25/22 1109: Progress Note Dov Amin is a 51 year old male admitted to the hospital on 03/20 for acute exacerbation of COPD, pneumonia and atrial fibrillation. His atrial fibrillation was rate controlled with oral beta jem and oral anticoagulation. Cardiac echo in Jan 2022 showed ejection fraction 55 to 60%. While in the hospital, he had several episodes of diarrhea and tested positive for C. diff which resolved following treatment with vancomycin. Through his hospital course he continued to require 3L of oxygen when at rest. He will be discharged on home oxygen pending home O2 eval, which should continue to be weaned as tolerated. EDWINA LOPEZ DO 03/26/22 0509: Supervisory-Addendum Brief Verification & Attestation Participated in pt care: history, MDM, physical Personally performed: exam, history, MDM, supervision of care Care discussed with: Medical Student Procedures: n/a Results interpretation: Verified all documentation Verification and Attestation of Medical Student E/M Service A medical student performed and documented this service in my presence. I reviewed and verified all information documented by the medical student and made modifications to such information, when appropriate. I personally performed the physical exam and medical decision making. Edwina Lopez, Mar 26, 2022,05:09 MAGNUS GARCIA I Mar 25, 2022 11:09 EDWINA LOPEZ DO Mar 26, 2022 05:09
== END 2022-03-25 12:10 | disposition home or self-care (01) ==
LOC: EDUNIT# 16:48 → ER 16:49 → UNDOADMOB 19:53 → 4TH 19:53 → UNDODISOB 03-25 12:10
PROVIDERS: ADMIT Family Medicine; ATTEND Internal Medicine
DX: J44.1 Chronic obstructive pulmonary disease with (acute) exacerbation (principal); K21.9 Gastro-esophageal reflux disease without esophagitis; J18.9 Pneumonia, unspecified organism; N40.0 Benign prostatic hyperplasia without lower urinary tract symptoms; F39 Unspecified mood [affective] disorder; I49.9 Cardiac arrhythmia, unspecified; I10 Essential (primary) hypertension; I48.0 Paroxysmal atrial fibrillation; I25.10 Atherosclerotic heart disease of native coronary artery without angina pectoris; E66.01 Morbid (severe) obesity due to excess calories; F41.9 Anxiety disorder, unspecified; F17.290 Nicotine dependence, other tobacco product, uncomplicated; A04.72 Enterocolitis due to Clostridium difficile, not specified as recurrent; Z91.199 Patient's noncompliance with other medical treatment and regimen due to unspecified reason; Z68.43 Body mass index [BMI] 50.0-59.9, adult
CPT/HCPCS: 36415; 71045; 80048; 80053; 82150; 82947; 83690; 83735; 83874; 83880; 84484; 85025; 85379; 85610; 85730; 87324; 87449; 87493; 93005; 93041; 94640; 94760; 94761; 96366; 96374; 96376; G0378

== ENCOUNTER 2022-04-08 04:21 | Emergency (ER) | payer MEDICAID ==
[~2022-04-08] VITALS: Ht 177.8 cm; Wt 176.4 kg
[~2022-04-08 04:21] MED LIST changes: +BALS750C PO; +METR-145 PO
[2022-04-08 04:56] LABS: BASOPHILS # (AUTO) 0.1 10^3/uL (0.0-0.1); BASOPHILS % (AUTO) 1 % (0-10); EOSINOPHILS # (AUTO) 0.2 10^3/uL (0.0-0.3); EOSINOPHILS % (AUTO) 2 % (0-10); HEMATOCRIT 43 % (40-54); HEMOGLOBIN 14.3 g/dL (13.3-17.7); LYMPHOCYTES # (AUTO) 2.5 10^3/uL (1.0-4.0); LYMPHOCYTES % (AUTO) 24 % (12-44); MEAN CORPUSCULAR HEMOGLOBIN 31 pg (25-34); MEAN CORPUSCULAR HGB CONC 34 g/dL (32-36); MEAN CORPUSCULAR VOLUME 91 fL (80-99); MEAN PLATELET VOLUME 10.5 fL (9.0-12.2); MONOCYTES # (AUTO) 0.8 10^3/uL (0.0-1.0); MONOCYTES % (AUTO) 8 % (0-12); NEUTROPHILS # (AUTO) 6.7 10^3/uL (1.8-7.8); NEUTROPHILS % (AUTO) 64 % (42-75); PLATELET COUNT 205 10^3/uL (130-400); WHITE BLOOD COUNT 10.3 10^3/uL (4.3-11.0)
[2022-04-08] MEDS ORDERED: RT-ALBUTEROL/IPRATROPIUM 3 ML (DUONEB) VIAL INH ONE (05:00)
[2022-04-08 05:12] LABS: CALCIUM 8.5 MG/DL (8.5-10.1); CREATININE SERUM 1.02 MG/DL (0.60-1.30); MAGNESIUM 1.9 MG/DL (1.6-2.4); POTASSIUM 3.4 MMOL/L (3.6-5.0)
--- NOTE | 2022-04-08 05:35 | ED Fall/Injury ---
General Chief Complaint: Trauma-Non Activation Stated Complaint: WEAKNESS Nursing Triage Note: PT TO [facility] FROM HOME W REPORTS OF FALL ON 04/06/22 LANDING ON BILAT HANDS AND ABDOMEN. PT C/O GEN WEAKNESS, RIGHT UPPER ARM TINGLING/DISCOMFORT AND LEFT INDEX FINGER PAIN D/T FALL. PT A&OX4. Source: patient Exam Limitations: no limitations History of Present Illness Date Seen by Provider: Apr 08, 2022 Time Seen by Provider: 04:30 Location Injury Occurred: PER PT FALL OCCURRED AT PT APARTMENT COMPLEX Allergies and Home Medications Allergies Coded Allergies: No Known Drug Allergies (Unverified , 03/26/21) Patient Home Medication List Acetaminophen (Tylenol Extra Strength) 500 Mg Tablet, 1,000 MG PO Q4H PRN for PAIN-MILD (1-4), (Reported) Entered as Reported by: NEPTALI PUCKETT on 01/15/19 1059 Albuterol Sulfate (Ventolin Hfa) 1 Puff Puff, 2 PUFF INH Q4H PRN for SHORTNESS OF BREATH, (Reported) Entered as Reported by: KERI BULLOCK on 01/25/22 1518 Amlodipine Besylate (Amlodipine Besylate) 5 Mg Tablet, 5 MG PO DAILY, (Reported) Entered as Reported by: BALDEV DOWNS on 02/28/22 0848 Apixaban (Eliquis) 5 Mg Tablet, 5 MG PO BID, (Reported) Entered as Reported by: BALDEV DOWNS on 02/28/22 0848 Aripiprazole (Aripiprazole) 30 Mg Tablet, 30 MG PO DAILY, (Reported) Entered as Reported by: BALDEV DOWNS on 02/28/22 0848 Aspirin (Aspirin EC) 81 Mg Tablet.dr, 81 MG PO DAILY, (Reported) Entered as Reported by: KERI BULLOCK on 03/21/22 1408 Atorvastatin Calcium (Atorvastatin Calcium) 40 Mg Tablet, 40 MG PO HS, (Reported) Entered as Reported by: NEPTALI PUCKETT on 01/15/19 1059 Baclofen (Baclofen) 10 Mg Tablet, 10 MG PO TID, (Reported) Entered as Reported by: BALDEV DOWNS on 01/07/22 0915 Balsalazide Disodium (Balsalazide Disodium) 750 Mg Capsule, 1,500 MG PO TID, (Reported) Entered as Reported by: KERI BULLOCK on 03/21/22 1408 Cyclobenzaprine HCl (Cyclobenzaprine HCl) 10 Mg Tablet, 10 MG PO HS, (Reported) Entered as Reported by: BALDEV DOWNS on 02/28/22 0848 Duloxetine HCl (Duloxetine HCl) 60 Mg Capsule.dr, 120 MG PO DAILY, (Reported) Entered as Reported by: KERI BULLOCK on 05/09/20 1004 Famotidine (Famotidine) 20 Mg Tablet, 20 MG PO HS, (Reported) Entered as Reported by: NEPTALI PUCKETT on 01/15/19 1059 Fenofibrate Nanocrystallized (Fenofibrate) 145 Mg Tablet, 145 MG PO HS, (Reported) Entered as Reported by: NEPTALI PUCKETT on 01/15/19 1059 Gabapentin (Gabapentin) 600 Mg Tablet, 600 MG PO TID, (Reported) Entered as Reported by: KERI BULLOCK on 05/09/20 1008 Metformin HCl (Metformin HCl) 1,000 Mg Tablet, 1,000 MG PO BID, (Reported) Entered as Reported by: BALDEV DOWNS on 01/07/22 0915 Metoprolol Succinate (Metoprolol Succinate) 100 Mg Tab.er.24h, 100 MG PO DAILY, (Reported) Entered as Reported by: BALDEV DOWNS on 02/28/22 0848 Metronidazole (Metronidazole) 500 Mg Tablet, 500 MG PO TID Prescribed by: XAVI LOPEZ on 03/25/22 1027 Multivitamin (Multivitamin) 1 Each Tablet, 1 EACH PO DAILY, (Reported) Entered as Reported by: BALDEV DOWNS on 02/28/22 0848 Potassium Chloride (Potassium Chloride) 20 Meq Tab.er.prt, 40 MEQ PO BID, (Reported) Entered as Reported by: BALDEV DOWNS on 01/07/22 0915 Ropinirole HCl (Ropinirole HCl) 5 Mg Tablet, 5 MG PO TID, (Reported) Entered as Reported by: SHANNAN DIAZ on 05/22/18 0604 Sodium Bicarbonate (Sodium Bicarbonate) 650 Mg Tablet, 650 MG PO BID, (Reported) Entered as Reported by: KERI BULLOCK on 03/21/22 1408 Tamsulosin HCl (Flomax) 0.4 Mg Cap, 0.4 MG PO HS, (Reported) Entered as Reported by: BALDEV DOWNS on 01/07/22 0915 Past [id number]-Wrdlcr Hx Patient Social History Tobacco Use?: Yes Tobacco type used: Cigarettes Smoking Status: Current Everyday Smoker Use of E-Cig and/or Vaping dev: No Substance use?: No Alcohol Use?: Yes Alcohol Frequency: Once in a while Immunizations Up To Date Tetanus Booster (TDap): Less than 5yrs PED Vaccines UTD: No Influenza Vaccine Up-to-Date: Yes; Up-to-Date First/Initial COVID19 Vaccinat: JUNE 01, 2020 Second COVID19 Vaccination Ronald: JUNE 15, 2020 Third COVID19 Vaccination Date: 2021 COVID19 Vaccine Aircraft [employer]: [employer] AND [employer] Seasonal Allergies Seasonal Allergies: No Past Medical History Surgery/Hospitalization HX: LEFT URETERAL STENT, BACK SURGERY 2003 PMH: AKF, ENTERCOLITIS, SEPSIS, DEPRESSION, SLEEP APNEA, UTI, HTN, PULMONARY HTN, COPD, DM2, UTI, GERD, BPH, AFIB Surgeries: Yes Gallbladder, Orthopedic, Renal Respiratory: Yes Sleep Apnea, COPD Currently Using CPAP: Yes Currently Using BIPAP: No Cardiac: Yes (PULMONARY HTN) High Cholesterol, Hypertension Neurological: Yes Neuropathy Reproductive Disorders: No Sexually Transmitted Disease: No HIV/AIDS: No Genitourinary: Yes (URETERAL STENTS) Benign Prostatic Hyperpl, Renal Failure Gastrointestinal: Yes (S/P EVELIO) Colitis, Gastroesophageal Reflux, Gall Bladder Disease Musculoskeletal: Yes (BACK SX 2003;RESTLESS LEG SYNDROME) Degenerate Disk Disease, Arthritis, Chronic Back Pain, Gout Endocrine: Yes (MORBID OBESITY; ORAL MEDICATION FOR DIABETES) Diabetes, Non-Insulin dep HEENT: Yes Cancer: No Psychosocial: Yes (BIPOLAR, POLYSUBSTANCE ABUSE) Anxiety, Bipolar, Depression Integumentary: No Blood Disorders: No Adverse Reaction/Blood Tranf: No Family Medical History Completed stroke DVT 19 MOTHER, , Onset:Unknown Diabetes mellitus 19 MOTHER, , Onset:Unknown G8 BROTHER, Onset:Unknown FH: gastric ulcer 19 FATHER, Onset:Unknown No Pertinent Family Hx, DVT/PE, Diabetes, GI Disease Physical Exam Vital Signs Vital Signs - First Documented 04/08/22 04:21 Temp 36.2 Pulse 83 Resp 26 B/P (MAP) 176/118 (137) Pulse Ox 95 O2 Delivery Room Air Capillary Refill : Less Than 3 Seconds Height, Weight, BMI Height: 5'10.00" Weight: 330lbs. 3.0oz. 149.598679bo; 55.00 BMI Method:Stated Progress/Results/Core Measures Results/Orders Lab Results Laboratory Tests Test 04/08/22 04:45 Range/Units White Blood Count 10.3 4.3-11.0 10^3/uL Red Blood Count 4.67 4.30-5.52 10^6/uL Hemoglobin 14.3 13.3-17.7 g/dL Hematocrit 43 40-54 % Mean Corpuscular Volume 91 80-99 fL Mean Corpuscular Hemoglobin 31 25-34 pg Mean Corpuscular Hemoglobin Concent 34 32-36 g/dL Red Cell Distribution Width 16.1 H 10.0-14.5 % Platelet Count 205 130-400 10^3/uL Mean Platelet Volume 10.5 9.0-12.2 fL Immature Granulocyte % (Auto) 1 % Neutrophils (%) (Auto) 64 42-75 % Lymphocytes (%) (Auto) 24 12-44 % Monocytes (%) (Auto) 8 0-12 % Eosinophils (%) (Auto) 2 0-10 % Basophils (%) (Auto) 1 0-10 % Neutrophils # (Auto) 6.7 1.8-7.8 10^3/uL Lymphocytes # (Auto) 2.5 1.0-4.0 10^3/uL Monocytes # (Auto) 0.8 0.0-1.0 10^3/uL Eosinophils # (Auto) 0.2 0.0-0.3 10^3/uL Basophils # (Auto) 0.1 0.0-0.1 10^3/uL Immature Granulocyte # (Auto) 0.1 0.0-0.1 10^3/uL Sodium Level 140 135-145 MMOL/L Potassium Level 3.4 L 3.6-5.0 MMOL/L Chloride Level 104 98-107 MMOL/L Carbon Dioxide Level 24 21-32 MMOL/L Anion Gap 12 5-14 MMOL/L Blood Urea Nitrogen 11 7-18 MG/DL Creatinine 1.02 0.60-1.30 MG/DL Estimat Glomerular Filtration Rate 88 BUN/Creatinine Ratio 11 Glucose Level 182 H 70-105 MG/DL Calcium Level 8.5 8.5-10.1 MG/DL Magnesium Level 1.9 1.6-2.4 MG/DL My Orders Orders - RUDY BARRETO MD Basic Metabolic Panel (04/08/22 04:34) Cbc With Automated Diff (04/08/22 04:34) Magnesium (04/08/22 04:34) Ed Iv/Invasive Line Start (04/08/22 04:34) Ct Head/Cervical Spine Wo (04/08/22 04:34) Humerus, Right, 2 Views (04/08/22 04:46) Finger(S) (04/08/22 04:50) Albuterol/Ipra Inhalation Soln (Duoneb I (04/08/22 05:00) Svn Small Volume Nebulizer (04/08/22 04:53) Medications Given in ED Current Medications Medications Dose Ordered Sig/Saba Route Start Time Stop Time Status Last Admin Dose Admin Albuterol/ Ipratropium 3 ml ONCE ONCE INH 04/08/22 05:00 04/08/22 05:01 DC 04/08/22 05:01 3 ML Vital Signs/I&O 04/08/22 04:21 Temp 36.2 Pulse 83 Resp 26 B/P (MAP) 176/118 (137) Pulse Ox 95 O2 Delivery Room Air Blood Pressure Mean: 137 Departure Impression Primary Impression: Fall on same level Qualified Codes: W18.30XA - Fall on same level, unspecified, initial enco unter Additional Impressions: Right hand paresthesia Multiple contusions Disposition: 01 HOME, SELF-CARE Condition: Stable Departure-Patient Inst. Decision time for Depature: 07:11 Referrals: ESTELLE GAR MD (PCP/Family) Primary Care Physician Patient Instructions: Paresthesia (DC) Add. Discharge Instructions: Follow-up with your primary care provider as soon as possible. You are taking baclofen 3 times a day which can cause significant drowsiness. This may cause a problem with your falls and with your breathing issues. I recommend you discuss tapering off of this medication when you follow-up with your primary care provider. You may use Tylenol (acetaminophen) up to 1000 mg every 6 hours as needed for pain. Return to care if you have worsening symptoms. All discharge instructions reviewed with patient and/or family. Voiced understan ding. RUDY BARRETO MD Apr 08, 2022 05:35
--- NOTE | 2022-04-08 06:11 | Diagnostic Imaging Report ---
Indication: Finger injury from a fall 3 views of left index finger show no fracture, dislocation or other acute abnormalities. IMPRESSION: Negative left index finger Dictated by: Dictated on workstation # [id number]
--- NOTE | 2022-04-08 06:20 | Diagnostic Imaging Report ---
EXAMINATION: CT head and CT cervical spine without contrast. TECHNIQUE: Multiple contiguous axial images were obtained through the brain and cervical spine without the use of intravenous contrast. Sagittal and coronal reformations through the cervical spine were then performed. All CT scans use one or more of the following dose optimizing techniques: automated exposure control, MA and/or KvP adjustment based on patient size and exam type or iterative reconstruction. HISTORY: Head and neck pain after injury. COMPARISON: None available. FINDINGS: HEAD: The ventricles and sulci are normal. No abnormal attenuation of brain parenchyma is present. No acute intracranial hemorrhage or abnormal extra-axial fluid collections are present. Calcification of the intracranial ICAs. No hyperdense vessel. The calvarium is intact. The mastoid air cells are clear. The visualized paranasal sinuses are clear. The orbits are normal. C-SPINE: Vertebral body height and alignment are preserved. No acute fracture, dislocation, or destructive osseous process. No significant facet hypertrophy. No significant central canal or neuroforaminal stenosis. The paraspinous soft tissues are normal. The visualized thyroid gland is normal. The visualized lung apices are normal. IMPRESSION: 1. No acute intracranial abnormality. 2. No cervical spine fracture. Dictated by: Dictated on workstation # [id number]
--- NOTE | 2022-04-08 06:39 | Diagnostic Imaging Report ---
Indication: Right arm injury from a fall AP and lateral views of the right humerus show no fracture or dislocation. IMPRESSION: Negative humerus Dictated by: Dictated on workstation # [id number]
[2022-04-08 07:40] VITALS: BP 145/100
== END 2022-04-08 07:40 | disposition home or self-care (01) ==
LOC: EDUNIT# 04:29 → ER 04:30
DX: T14.8XXA Other injury of unspecified body region, initial encounter (principal); R20.2 Paresthesia of skin; G47.30 Sleep apnea, unspecified; E66.01 Morbid (severe) obesity due to excess calories; F17.210 Nicotine dependence, cigarettes, uncomplicated; Z68.43 Body mass index [BMI] 50.0-59.9, adult; Z99.89 Dependence on other enabling machines and devices; W18.30XA Fall on same level, unspecified, initial encounter
CPT/HCPCS: 36415; 70450; 72125; 73060; 73140; 80048; 83735; 85025

== ENCOUNTER 2022-04-17 02:15 | Emergency (ER) | payer MEDICAID ==
[~2022-04-17] VITALS: Ht 177.8 cm; Wt 170.1 kg
[2022-04-17 03:57] LABS: ALANINE AMINOTRANSFERASE 24 U/L (0-55); ALBUMIN 3.7 GM/DL (3.2-4.5); ALKALINE PHOSPHATASE 76 U/L (40-136); BILIRUBIN,TOTAL 0.4 MG/DL (0.1-1.0); BUN/CREATININE RATIO 12; CALCIUM 8.7 MG/DL (8.5-10.1); CARBON DIOXIDE 21 MMOL/L (21-32); CHLORIDE 105 MMOL/L (98-107); CREATININE SERUM 1.06 MG/DL (0.60-1.30); GFR ESTIMATED 84; GLUCOSE 153 MG/DL (70-105); MAGNESIUM 1.8 MG/DL (1.6-2.4); POTASSIUM 3.6 MMOL/L (3.6-5.0); SODIUM 139 MMOL/L (135-145); TOTAL PROTEIN 6.4 GM/DL (6.4-8.2)
[2022-04-17 03:58] LABS: BASOPHILS # (AUTO) 0.1 10^3/uL (0.0-0.1); BASOPHILS % (AUTO) 1 % (0-10); EOSINOPHILS # (AUTO) 0.3 10^3/uL (0.0-0.3); EOSINOPHILS % (AUTO) 3 % (0-10); HEMATOCRIT 46 % (40-54); HEMOGLOBIN 15.2 g/dL (13.3-17.7); LYMPHOCYTES # (AUTO) 2.5 10^3/uL (1.0-4.0); LYMPHOCYTES % (AUTO) 29 % (12-44); MEAN CORPUSCULAR HEMOGLOBIN 30 pg (25-34); MEAN CORPUSCULAR HGB CONC 33 g/dL (32-36); MEAN CORPUSCULAR VOLUME 90 fL (80-99); MEAN PLATELET VOLUME 10.9 fL (9.0-12.2); MONOCYTES # (AUTO) 0.7 10^3/uL (0.0-1.0); MONOCYTES % (AUTO) 9 % (0-12); NEUTROPHILS # (AUTO) 4.9 10^3/uL (1.8-7.8); NEUTROPHILS % (AUTO) 58 % (42-75); PLATELET COUNT 197 10^3/uL (130-400); SMEAR SCAN COMMENT YES; WHITE BLOOD COUNT 8.6 10^3/uL (4.3-11.0)
--- NOTE | 2022-04-17 04:58 | ED Chest Pain ---
General Chief Complaint: Chest Pain Stated Complaint: CP Nursing Triage Note: PT BROUGHT TO ROOM VIA EMS STRETCHER; PT A&OX3 ON ARRIVAL; PT ADVISES THAT HE HAD A SUDDEN ONSET OF CHEST PAIN APPROX 1 HR PRIOR TO CALLING EMS; PT DESCRIBES PAIN SHARP IN NATURE; PT ALSO C/O R HAND NUMBNESS/TINGLING Source: patient, EMS, old records Exam Limitations: no limitations History of Present Illness Date Seen by Provider: Apr 17, 2022 Time Seen by Provider: 02:17 Initial Comments This 51-year-old gentleman presents to the emergency room via EMS with complaints of sharp chest pain. He has wheezing on exam and has known history of COPD. He has not taken his inhaler since the pain started. He also comments on numbness and tingling in his right hand which has been noted on prior ER visit as well and seems to be in a dermatomal distribution of carpal tunnel syndrome. Chart was reviewed and patient was noted to have cardiac angiography a couple years ago demonstrating no significant coronary artery disease. Pain is reproducible with palpation on exam. Allergies and Home Medications Allergies Coded Allergies: No Known Drug Allergies (Unverified , 03/26/21) Patient Home Medication List Home Medication List Reviewed: Yes Acetaminophen (Tylenol Extra Strength) 500 Mg Tablet, 1,000 MG PO Q4H PRN for PAIN-MILD (1-4), (Reported) Entered as Reported by: NEPTALI PUCKETT on 01/15/19 1059 Albuterol Sulfate (Ventolin Hfa) 1 Puff Puff, 2 PUFF INH Q4H PRN for SHORTNESS OF BREATH, (Reported) Entered as Reported by: KREI BULLOCK on 01/25/22 1518 Amlodipine Besylate (Amlodipine Besylate) 5 Mg Tablet, 5 MG PO DAILY, (Reported) Entered as Reported by: BALDEV DOWNS on 02/28/22 0848 Apixaban (Eliquis) 5 Mg Tablet, 5 MG PO BID, (Reported) Entered as Reported by: BALDEV DOWNS on 02/28/22 0848 Aripiprazole (Aripiprazole) 30 Mg Tablet, 30 MG PO DAILY, (Reported) Entered as Reported by: BALDEV DOWNS on 02/28/22 0848 Aspirin (Aspirin EC) 81 Mg Tablet.dr, 81 MG PO DAILY, (Reported) Entered as Reported by: KERI BULLOCK on 03/21/22 1408 Atorvastatin Calcium (Atorvastatin Calcium) 40 Mg Tablet, 40 MG PO HS, (Reported) Entered as Reported by: NEPTALI PUCKETT on 01/15/19 1059 Baclofen (Baclofen) 10 Mg Tablet, 10 MG PO TID, (Reported) Entered as Reported by: BALDEV DOWNS on 01/07/22 0915 Balsalazide Disodium (Balsalazide Disodium) 750 Mg Capsule, 1,500 MG PO TID, (Reported) Entered as Reported by: KERI BULLOCK on 03/21/22 1408 Cyclobenzaprine HCl (Cyclobenzaprine HCl) 10 Mg Tablet, 10 MG PO HS, (Reported) Entered as Reported by: BALDEV DOWNS on 02/28/22 0848 Duloxetine HCl (Duloxetine HCl) 60 Mg Capsule.dr, 120 MG PO DAILY, (Reported) Entered as Reported by: KERI BULLOCK on 05/09/20 1004 Famotidine (Famotidine) 20 Mg Tablet, 20 MG PO HS, (Reported) Entered as Reported by: NEPTALI PUCKETT on 01/15/19 1059 Fenofibrate Nanocrystallized (Fenofibrate) 145 Mg Tablet, 145 MG PO HS, (Reported) Entered as Reported by: NEPTLAI PUCKETT on 01/15/19 1059 Gabapentin (Gabapentin) 600 Mg Tablet, 600 MG PO TID, (Reported) Entered as Reported by: KERI BULLOCK on 05/09/20 1008 Metformin HCl (Metformin HCl) 1,000 Mg Tablet, 1,000 MG PO BID, (Reported) Entered as Reported by: BALDEV DOWNS on 01/07/22 0915 Metoprolol Succinate (Metoprolol Succinate) 100 Mg Tab.er.24h, 100 MG PO DAILY, (Reported) Entered as Reported by: BALDEV DOWNS on 02/28/22 0848 Metronidazole (Metronidazole) 500 Mg Tablet, 500 MG PO TID Prescribed by: XAVI LOPEZ on 03/25/22 1027 Multivitamin (Multivitamin) 1 Each Tablet, 1 EACH PO DAILY, (Reported) Entered as Reported by: BALDEV DOWNS on 02/28/22 0848 Potassium Chloride (Potassium Chloride) 20 Meq Tab.er.prt, 40 MEQ PO BID, (Reported) Entered as Reported by: BALDEV DOWNS on 01/07/22 0915 Ropinirole HCl (Ropinirole HCl) 5 Mg Tablet, 5 MG PO TID, (Reported) Entered as Reported by: SHANNAN DIAZ on 05/22/18 0604 Sodium Bicarbonate (Sodium Bicarbonate) 650 Mg Tablet, 650 MG PO BID, (Reported) Entered as Reported by: KERI BULLOCK on 03/21/22 1408 Tamsulosin HCl (Flomax) 0.4 Mg Cap, 0.4 MG PO HS, (Reported) Entered as Reported by: BALDEV DOWNS on 01/07/22 0915 Review of Systems Review of Systems Constitutional: no symptoms reported EENTM: No Symptoms Reported Respiratory: See HPI Cardiovascular: See HPI Gastrointestinal: No Symptoms Reported Genitourinary: No Symptoms Reported Musculoskeletal: see HPI Skin: no symptoms reported Psychiatric/Neurological: See HPI Endocrine: No Symptoms Reported Hematologic/Lymphatic: No Symptoms Reported Past Prffwrt-Qrifni-Areiiv Hx Patient Social History Tobacco Use?: Yes Tobacco type used: Cigarettes Smoking Status: Current Everyday Smoker Use of E-Cig and/or Vaping dev: No Substance use?: No Alcohol Use?: Yes Alcohol Frequency: Once in a while Pt feels they are or have been: No Immunizations Up To Date Tetanus Booster (TDap): Less than 5yrs PED Vaccines UTD: No Influenza Vaccine Up-to-Date: Yes; Up-to-Date First/Initial COVID19 Vaccinat: JUNE 2020 Second COVID19 Vaccination Ronald: JULY 2020 Third COVID19 Vaccination Date: 2021 COVID19 Vaccine Tape Duplicator: [employer] Seasonal Allergies Seasonal Allergies: No Past Medical History Surgery/Hospitalization HX: LEFT URETERAL STENT, BACK SURGERY 2003 PMH: AKF, ENTERCOLITIS, SEPSIS, DEPRESSION, SLEEP APNEA, UTI, HTN, PULMONARY HTN, COPD, DM2, UTI, GERD, BPH, AFIB Surgeries: Yes Gallbladder, Orthopedic, Renal Respiratory: Yes Sleep Apnea, COPD Currently Using CPAP: Yes Currently Using BIPAP: No Cardiac: Yes (PULMONARY HTN) Atrial Fibrillation, High Cholesterol, Hypertension Neurological: Yes Neuropathy Reproductive Disorders: No Sexually Transmitted Disease: No HIV/AIDS: No Genitourinary: Yes (URETERAL STENTS) Benign Prostatic Hyperpl, Renal Failure Gastrointestinal: Yes (S/P EVELIO) Colitis, Gastroesophageal Reflux, Gall Bladder Disease Musculoskeletal: Yes (BACK SX 2003;RESTLESS LEG SYNDROME) Degenerate Disk Disease, Arthritis, Chronic Back Pain, Gout Endocrine: Yes (MORBID OBESITY; ORAL MEDICATION FOR DIABETES) Diabetes, Non-Insulin dep HEENT: Yes Cancer: No Psychosocial: Yes (BIPOLAR, POLYSUBSTANCE ABUSE) Anxiety, Bipolar, Depression Integumentary: No Blood Disorders: No Adverse Reaction/Blood Tranf: No Family Medical History Completed stroke DVT 19 MOTHER, , Onset:Unknown Diabetes mellitus 19 MOTHER, , Onset:Unknown G8 BROTHER, Onset:Unknown FH: gastric ulcer 19 FATHER, Onset:Unknown No Pertinent Family Hx, DVT/PE, Diabetes, GI Disease Physical Exam Vital Signs Vital Signs - First Documented 04/17/22 02:15 Temp 36.5 Pulse 16 Resp 81 B/P (MAP) 130/94 (106) Pulse Ox 97 O2 Delivery Room Air Capillary Refill : NONE Height, Weight, BMI Height: 5'10.00" Weight: 330lbs. 3.0oz. 149.403410rb; 53.00 BMI Method:Stated General Appearance: No Apparent Distress, WD/WN, Obese HEENT: Normal ENT Inspection Neck: Normal Inspection; No JVD Respiratory: No Accessory Muscle Use, No Respiratory Distress, Decreased Breath Sounds, Wheezing Cardiovascular: Regular Rate, Rhythm, No Murmur, Normal Peripheral Pulses Gastrointestinal: Non Tender, Soft Extremity: Non Tender Neurologic/Psychiatric: Alert, Oriented x3, Normal Mood/Affect Skin: Normal Color, Warm/Dry Progress/Results/Core Measures Results/Orders Lab Results Laboratory Tests Test 04/17/22 02:30 Range/Units White Blood Count 8.6 4.3-11.0 10^3/uL Red Blood Count 5.08 4.30-5.52 10^6/uL Hemoglobin 15.2 13.3-17.7 g/dL Hematocrit 46 40-54 % Mean Corpuscular Volume 90 80-99 fL Mean Corpuscular Hemoglobin 30 25-34 pg Mean Corpuscular Hemoglobin Concent 33 32-36 g/dL Red Cell Distribution Width 15.3 H 10.0-14.5 % Platelet Count 197 130-400 10^3/uL Mean Platelet Volume 10.9 9.0-12.2 fL Immature Granulocyte % (Auto) 1 % Neutrophils (%) (Auto) 58 42-75 % Lymphocytes (%) (Auto) 29 12-44 % Monocytes (%) (Auto) 9 0-12 % Eosinophils (%) (Auto) 3 0-10 % Basophils (%) (Auto) 1 0-10 % Neutrophils # (Auto) 4.9 1.8-7.8 10^3/uL Lymphocytes # (Auto) 2.5 1.0-4.0 10^3/uL Monocytes # (Auto) 0.7 0.0-1.0 10^3/uL Eosinophils # (Auto) 0.3 0.0-0.3 10^3/uL Basophils # (Auto) 0.1 0.0-0.1 10^3/uL Immature Granulocyte # (Auto) 0.1 0.0-0.1 10^3/uL Percent Immature Platelet Fraction 5.2 0.0-7.6 % Sodium Level 139 135-145 MMOL/L Potassium Level 3.6 3.6-5.0 MMOL/L Chloride Level 105 98-107 MMOL/L Carbon Dioxide Level 21 21-32 MMOL/L Anion Gap 13 5-14 MMOL/L Blood Urea Nitrogen 13 7-18 MG/DL Creatinine 1.06 0.60-1.30 MG/DL Estimat Glomerular Filtration Rate 84 BUN/Creatinine Ratio 12 Glucose Level 153 H 70-105 MG/DL Calcium Level 8.7 8.5-10.1 MG/DL Corrected Calcium 8.9 8.5-10.1 MG/DL Magnesium Level 1.8 1.6-2.4 MG/DL Total Bilirubin 0.4 0.1-1.0 MG/DL Aspartate Amino Transf (AST/SGOT) 24 5-34 U/L Alanine Aminotransferase (ALT/SGPT) 24 0-55 U/L Alkaline Phosphatase 76 40-136 U/L Troponin I < 0.028 <0.028 NG/ML Total Protein 6.4 6.4-8.2 GM/DL Albumin 3.7 3.2-4.5 GM/DL Smear Scan YES My Orders Orders - RUDY BARRETO MD Cbc With Automated Diff (04/17/22 02:30) Comprehensive Metabolic Panel (04/17/22 02:30) Magnesium (04/17/22 02:30) Troponin I Samuel (04/17/22 02:30) Chest 1 View, Ap/Pa Only (04/17/22 04:19) Vital Signs/I&O 04/17/22 04/17/22 02:15 02:59 Temp 36.5 Pulse 16 Resp 81 B/P (MAP) 130/94 (106) Pulse Ox 97 95 O2 Delivery Room Air Room Air Blood Pressure Mean: 106 Progress Progress Note : Progress Note Chest pain work-up including CBC, CMP, troponin, chest x-ray, and EKG was unremarkable. Pain was atypical in nature as it was reproducible with palpation and improved with DuoNeb treatment. It was also noted in his recent cardiac angiography that he has no obstructive coronary artery disease. Patient was discharged home in improved condition. Paresthesias commented on in the right hand have been noted on prior visits and seem to be in a dermatomal distribution of carpal tunnel. Initial ECG Impression Date: Apr 17, 2022 Initial ECG Impression Time: 02:22 Initial ECG Rate: 100 Initial ECG Rhythm: Normal Sinus Initial ECG Intervals: Normal Initial ECG Impression: Normal Comment Normal sinus rhythm with no ST elevation or depression. No abnormal intervals or axis deviation. Diagnostic Imaging Diagonstic Imaging: Xray Plain Films/CT/US/NM/MRI: chest Comments Chest x-ray viewed by me and compared with prior. Radiologist's report not yet available. No acute adverse changes from prior appreciated by my interpretation. Departure Impression Primary Impression: Chest wall pain Additional Impressions: Acute exacerbation of chronic obstructive pulmonary disease (COPD) Right hand paresthesia Disposition: 01 HOME, SELF-CARE Condition: Improved Departure-Patient Inst. Decision time for Depature: 04:58 Referrals: ESTELLE GAR MD (PCP/Family) Primary Care Physician Patient Instructions: Chronic Obstructive Pulmonary Disease (COPD), Including Emphysema, Chest Pain That Is Not Caused by the Heart (DC) Add. Discharge Instructions: Continue using your inhaler as previously directed. This is not sufficient for your wheezing and shortness of breath, discuss obtaining a nebulizer machine w ith your primary care provider. You may use Tylenol (acetaminophen) for your pain. Discussed that your wrist and hand numbness with your doctor. This may be related to carpal tunnel syndrome. In the meantime, you may use a supportive wrist brace to reduce symptoms. Follow-up with your primary care provider soon as possible. Return to the ER if you have worsening symptoms despite following these instructions. All discharge instructions reviewed with patient and/or family. Voiced understanding. Copy Copies To 1: ESTELLE GAR MD, JOSHUA T MD Apr 17, 2022 04:58
[2022-04-17 06:35] VITALS: BP 136/79
--- NOTE | 2022-04-17 07:19 | Diagnostic Imaging Report ---
INDICATION: Chest pain. Frontal chest obtained at 02:54 a.m. and compared with 03/20/2022 FINDINGS: There is cardiomegaly. There is central vascular congestion which appears similar to the prior study. There is no new consolidation. Left lung base is poorly visualized due to technique. IMPRESSION: Cardiomegaly and central vascular congestion appearing similar to the prior study. No definite new infiltrate. There is some technical limitation as above. Dictated by: Dictated on workstation # [id number]
== END 2022-04-17 06:35 | disposition home or self-care (01) ==
LOC: EDUNIT# 02:15 → ER 02:17
DX: R07.89 Other chest pain (principal); J44.9 Chronic obstructive pulmonary disease, unspecified; G47.30 Sleep apnea, unspecified; G56.01 Carpal tunnel syndrome, right upper limb; E66.01 Morbid (severe) obesity due to excess calories; F17.210 Nicotine dependence, cigarettes, uncomplicated; Z79.51 Long term (current) use of inhaled steroids; Z99.89 Dependence on other enabling machines and devices; Z68.43 Body mass index [BMI] 50.0-59.9, adult
CPT/HCPCS: 36415; 71045; 80053; 83735; 84484; 85025; 93005; 94640; 94664

== ENCOUNTER 2022-05-01 23:22 | Emergency (ER) | payer MEDICAID ==
[2022-05-01] MEDS ORDERED: ANTACID SUSP 30 ML UDC (MYLANTA) PO ONE (23:30)
[2022-05-01] MEDS ORDERED: LIDOCAINE 2% VISCOUS 15 ML UDC PO ONE (23:30)
[2022-05-01] MEDS ORDERED: ASPIRIN 81 MG CHEW (CHILDREN'S ASA) PO ONE (23:30)
[2022-05-01] MEDS ORDERED: SUCRALFATE 1 GM (CARAFATE) TAB PO ONE (23:30)
[2022-05-01] MEDS ORDERED: meTOprolol SUCCINATE 100 MG (TOPROL XL) TAB PO ONE (23:30)
--- NOTE | 2022-05-01 23:36 | ED Cardiac General ---
History of Present Illness General Chief Complaint: Chest Pain Stated Complaint: CP Source: patient, EMS Exam Limitations: no limitations History of Present Illness Date Seen by Provider: May 01, 2022 Time Seen by Provider: 23:22 Initial Comments 51-year-old male well-known to the ER presents to the emergency department via EMS for burning in his mid central chest symptoms started 30 to 45 minutes prior to arrival but later says that is been off and on all day. He points to the midsternal region. He has not tried anything for his symptoms. No associated symptoms. No aggravating or alleviating factors. He believes he may have had pain like this in the past with acid reflux but is not exactly the same as his previous symptoms which was his concern tonight. He did have a heart catheterization in 2017 with some mild disease, no stenting. He has not had a heart cath or stress test since that time. He was admitted to our hospital in March and evaluated by cardiology for atrial fibrillation during that time. He had an echocardiogram showing a normal EF with slightly elevated pulmonary pressures. His heart rate was mildly elevated during transport. He tells me he has not had his metoprolol for the last 3 days as "the pharmacy would not fill it." All other systems reviewed and negative except documented per HPI. Voice recognition software was used to help create this chart Allergies and Home Medications Allergies Coded Allergies: No Known Drug Allergies (Unverified , 03/26/21) Patient Home Medication List Home Medication List Reviewed: Yes Acetaminophen (Tylenol Extra Strength) 500 Mg Tablet, 1,000 MG PO Q4H PRN for PAIN-MILD (1-4), (Reported) Entered as Reported by: NEPTALI PUCKETT on 01/15/19 1059 Albuterol Sulfate (Ventolin Hfa) 1 Puff Puff, 2 PUFF INH Q4H PRN for SHORTNESS OF BREATH, (Reported) Entered as Reported by: KERI BULLOCK on 01/25/22 1518 Amlodipine Besylate (Amlodipine Besylate) 5 Mg Tablet, 5 MG PO DAILY, (Reported) Entered as Reported by: BALDEV DOWNS on 02/28/22 0848 Apixaban (Eliquis) 5 Mg Tablet, 5 MG PO BID, (Reported) Entered as Reported by: BALDEV DOWNS on 02/28/22 0848 Aripiprazole (Aripiprazole) 30 Mg Tablet, 30 MG PO DAILY, (Reported) Entered as Reported by: BALDEV DOWNS on 02/28/22 0848 Aspirin (Aspirin EC) 81 Mg Tablet.dr, 81 MG PO DAILY, (Reported) Entered as Reported by: KERI BULLOCK on 03/21/22 1408 Atorvastatin Calcium (Atorvastatin Calcium) 40 Mg Tablet, 40 MG PO HS, (Reported) Entered as Reported by: NEPTALI PUCKETT on 01/15/19 1059 Baclofen (Baclofen) 10 Mg Tablet, 10 MG PO TID, (Reported) Entered as Reported by: BALDEV DOWNS on 01/07/22 0915 Balsalazide Disodium (Balsalazide Disodium) 750 Mg Capsule, 1,500 MG PO TID, (Reported) Entered as Reported by: KERI BULLOCK on 03/21/22 1408 Cyclobenzaprine HCl (Cyclobenzaprine HCl) 10 Mg Tablet, 10 MG PO HS, (Reported) Entered as Reported by: BALDEV DOWNS on 02/28/22 0848 Duloxetine HCl (Duloxetine HCl) 60 Mg Capsule.dr, 120 MG PO DAILY, (Reported) Entered as Reported by: KERI BULLOCK on 05/09/20 1004 Famotidine (Famotidine) 20 Mg Tablet, 20 MG PO HS, (Reported) Entered as Reported by: NEPTALI PUCKETT on 01/15/19 1059 Fenofibrate Nanocrystallized (Fenofibrate) 145 Mg Tablet, 145 MG PO HS, (Reported) Entered as Reported by: NEPTALI PUCKETT on 01/15/19 1059 Gabapentin (Gabapentin) 600 Mg Tablet, 600 MG PO TID, (Reported) Entered as Reported by: KERI BULLOCK on 05/09/20 1008 Metformin HCl (Metformin HCl) 1,000 Mg Tablet, 1,000 MG PO BID, (Reported) Entered as Reported by: BALDEV DOWNS on 01/07/22 0915 Metoprolol Succinate (Metoprolol Succinate) 100 Mg Tab.er.24h, 100 MG PO DAILY, (Reported) Entered as Reported by: BALDEV DOWNS on 02/28/22 0848 Metronidazole (Metronidazole) 500 Mg Tablet, 500 MG PO TID Prescribed by: XAVI LOPEZ on 03/25/22 1027 Multivitamin (Multivitamin) 1 Each Tablet, 1 EACH PO DAILY, (Reported) Entered as Reported by: BALDEV DOWNS on 02/28/22 0848 Potassium Chloride (Potassium Chloride) 20 Meq Tab.er.prt, 40 MEQ PO BID, (Reported) Entered as Reported by: BALDEV DOWNS on 01/07/22 0915 Ropinirole HCl (Ropinirole HCl) 5 Mg Tablet, 5 MG PO TID, (Reported) Entered as Reported by: SHANNAN DIAZ on 05/22/18 0604 Sodium Bicarbonate (Sodium Bicarbonate) 650 Mg Tablet, 650 MG PO BID, (Reported) Entered as Reported by: KERI BULLOCK on 03/21/22 1408 Tamsulosin HCl (Flomax) 0.4 Mg Cap, 0.4 MG PO HS, (Reported) Entered as Reported by: BALDEV DOWNS on 01/07/22 0915 Review of Systems Review of Systems Constitutional: no symptoms reported Past Kqsekdr-Ekvxwc-Refkto Hx Immunizations Up To Date Tetanus Booster (TDap): Less than 5yrs PED Vaccines UTD: No First/Initial COVID19 Vaccinat: JUNE 2020 Second COVID19 Vaccination Ronald: JULY 2020 Third COVID19 Vaccination Date: 2021 Seasonal Allergies Seasonal Allergies: No Past Medical History Surgery/Hospitalization HX: LEFT URETERAL STENT, BACK SURGERY 2003 PMH: AKF, ENTERCOLITIS, SEPSIS, DEPRESSION, SLEEP APNEA, UTI, HTN, PULMONARY HTN, COPD, DM2, UTI, GERD, BPH, AFIB Surgeries: Yes Gallbladder, Orthopedic, Renal Respiratory: Yes Sleep Apnea, COPD Currently Using CPAP: Yes Currently Using BIPAP: No Cardiac: Yes (PULMONARY HTN) Atrial Fibrillation, High Cholesterol, Hypertension Neurological: Yes Neuropathy Reproductive Disorders: No Sexually Transmitted Disease: No HIV/AIDS: No Genitourinary: Yes (URETERAL STENTS) Benign Prostatic Hyperpl, Renal Failure Gastrointestinal: Yes (S/P EVELIO) Colitis, Gastroesophageal Reflux, Gall Bladder Disease Musculoskeletal: Yes (BACK SX 2003;RESTLESS LEG SYNDROME) Degenerate Disk Disease, Arthritis, Chronic Back Pain, Gout Endocrine: Yes (MORBID OBESITY; ORAL MEDICATION FOR DIABETES) Diabetes, Non-Insulin dep HEENT: Yes Cancer: No Psychosocial: Yes (BIPOLAR, POLYSUBSTANCE ABUSE) Anxiety, Bipolar, Depression Integumentary: No Blood Disorders: No Adverse Reaction/Blood Tranf: No Family Medical History Reviewed Nursing Family Hx Completed stroke DVT 19 MOTHER, , Onset:Unknown Diabetes mellitus 19 MOTHER, , Onset:Unknown G8 BROTHER, Onset:Unknown FH: gastric ulcer 19 FATHER, Onset:Unknown No Pertinent Family Hx, DVT/PE, Diabetes, GI Disease Physical Exam Vital Signs Vital Signs - First Documented Capillary Refill : Height, Weight, BMI Height: 5'10.00" Weight: 330lbs. 3.0oz. 149.149828ft; 53.00 BMI Method:Stated General Appearance: No Apparent Distress, WD/WN HEENT: Normal ENT Inspection, Pharynx Normal Neck: Normal Inspection, Non Tender, Supple Respiratory: Chest Non Tender, Lungs Clear, Normal Breath Sounds, No Accessory Muscle Use, No Respiratory Distress, Other Cardiovascular: No Murmur, Tachycardia Gastrointestinal: Normal Bowel Sounds, No Organomegaly, No Pulsatile Mass, Non Tender, Soft, Other (Morbidly obese) Extremity: Normal Capillary Refill, Normal Inspection, Normal Range of Motion, Non Tender, No Calf Tenderness, Swelling (1+ pitting edema bilateral lower extremities) Neurologic/Psychiatric: Alert, Oriented x3, No Motor/Sensory Deficits, Normal Mood/Affect Skin: Normal Color, Warm/Dry Progress/Results/Core Measures Results/Orders Lab Results Laboratory Tests Test 05/01/22 23:40 Range/Units White Blood Count 10.5 4.3-11.0 10^3/uL Red Blood Count 5.05 4.30-5.52 10^6/uL Hemoglobin 15.4 13.3-17.7 g/dL Hematocrit 45 40-54 % Mean Corpuscular Volume 90 80-99 fL Mean Corpuscular Hemoglobin 31 25-34 pg Mean Corpuscular Hemoglobin Concent 34 32-36 g/dL Red Cell Distribution Width 14.8 H 10.0-14.5 % Platelet Count 209 130-400 10^3/uL Mean Platelet Volume 10.5 9.0-12.2 fL Immature Granulocyte % (Auto) 1 % Neutrophils (%) (Auto) 67 42-75 % Lymphocytes (%) (Auto) 23 12-44 % Monocytes (%) (Auto) 7 0-12 % Eosinophils (%) (Auto) 2 0-10 % Basophils (%) (Auto) 1 0-10 % Neutrophils # (Auto) 7.0 1.8-7.8 10^3/uL Lymphocytes # (Auto) 2.4 1.0-4.0 10^3/uL Monocytes # (Auto) 0.7 0.0-1.0 10^3/uL Eosinophils # (Auto) 0.2 0.0-0.3 10^3/uL Basophils # (Auto) 0.1 0.0-0.1 10^3/uL Immature Granulocyte # (Auto) 0.1 0.0-0.1 10^3/uL Sodium Level 137 135-145 MMOL/L Potassium Level 3.5 L 3.6-5.0 MMOL/L Chloride Level 104 98-107 MMOL/L Carbon Dioxide Level 20 L 21-32 MMOL/L Anion Gap 13 5-14 MMOL/L Blood Urea Nitrogen 9 7-18 MG/DL Creatinine 1.12 0.60-1.30 MG/DL Estimat Glomerular Filtration Rate 79 BUN/Creatinine Ratio 8 Glucose Level 176 H 70-105 MG/DL Calcium Level 8.8 8.5-10.1 MG/DL Corrected Calcium 9.0 8.5-10.1 MG/DL Magnesium Level 1.8 1.6-2.4 MG/DL Total Bilirubin 0.3 0.1-1.0 MG/DL Aspartate Amino Transf (AST/SGOT) 41 H 5-34 U/L Alanine Aminotransferase (ALT/SGPT) 25 0-55 U/L Alkaline Phosphatase 64 40-136 U/L Troponin I < 0.028 <0.028 NG/ML Total Protein 6.3 L 6.4-8.2 GM/DL Albumin 3.7 3.2-4.5 GM/DL My Orders Orders - HOME MASTERS DO Cbc With Automated Diff (05/01/22 23:29) Magnesium (05/01/22 23:29) Chest 1 View, Ap/Pa Only (05/01/22 23:29) Ekg Tracing (05/01/22 23:29) Comprehensive Metabolic Panel (05/01/22 23:29) O2 (05/01/22 23:29) Ed Iv/Invasive Line Start (05/01/22 23:29) Troponin I Samuel (05/01/22 23:29) Aspirin Chewable Tablet (Baby Aspirin Ch (05/01/22 23:30) Metoprolol Succinate (Xl) Tab (Toprol Xl (05/01/22 23:30) Lidocaine 2% Viscous 15 Ml (Xylocaine Vi (05/01/22 23:30) Antacid Suspension (Mylanta Suspension (05/01/22 23:30) Sucralfate Tablet (Carafate Tablet) (05/01/22 23:30) Metoprolol Succinate (Xl) Tab (Toprol Xl (05/01/22 23:56) Medications Given in ED Current Medications Medications Dose Ordered Sig/Saba Route Start Time Stop Time Status Last Admin Dose Admin Al Hydrox/Mg Hydrox/Simethicone 30 ml ONCE ONCE PO 05/01/22 23:30 05/01/22 23:32 DC 05/02/22 00:01 30 ML Aspirin 324 mg ONCE ONCE PO 05/01/22 23:30 05/01/22 23:31 DC 05/02/22 00:00 324 MG Lidocaine HCl 5 ml ONCE ONCE PO 05/01/22 23:30 05/01/22 23:32 DC 05/02/22 00:01 5 ML Metoprolol Succinate 50 mg STK-MED ONCE PO 05/01/22 23:56 05/02/22 00:00 DC 05/02/22 00:01 100 MG Sucralfate 1 gm ONCE ONCE PO 05/01/22 23:30 05/01/22 23:32 DC 05/02/22 00:00 1 GM Vital Signs/I&O 05/01/22 05/01/22 23:23 23:23 Temp 36.1 Pulse 114 Resp 16 B/P (MAP) 160/120 (133) Pulse Ox 95 O2 Delivery Room Air Room Air Comment My independent review of EKG shows sinus tachycardia with a rate of 122 bpm. Normal intervals. Normal axis. No ST or T wave abnormality. No ectopy. No STEMI. Departure Communication (Admissions) Patient is hemodynamically stable. Heart score is 3 age, risk factors. Story is not really consistent with cardiac type symptoms. His symptoms have completely resolved with GI cocktail. EKG is nonischemic troponin is negative. His electrolytes are unremarkable. I have adequately reviewed his labs, chest x-ray and EKG. No evidence of pulmonary edema, pneumonia. EKG again is nonis chemic. He will be discharged home with close primary care follow-up. Impression Primary Impression: Atypical chest pain Disposition: HOME, SELF-CARE Condition: Stable Departure-Patient Inst. Referrals: ESTELLE GAR MD (PCP/Family) Primary Care Physician Patient Instructions: Chest Pain That Is Not Caused by the Heart (DC) Add. Discharge Instructions: Your work-up here is reassuring. I do not think this is likely coming from your heart, lungs or other emergent medical condition. It is possible that this is from acid reflux as discussed. Continue home acid medicines and use Tums as needed. Return to the emergency department for any severe concerns. Follow-up with your primary doctor for any nonemergent needs. I do recommend you see them within the next week. All discharge instructions reviewed with patient and/or family. Voiced understanding. HOME MASTERS DO May 01, 2022 23:36
[2022-05-01 23:47] LABS: BASOPHILS # (AUTO) 0.1 10^3/uL (0.0-0.1); BASOPHILS % (AUTO) 1 % (0-10); EOSINOPHILS # (AUTO) 0.2 10^3/uL (0.0-0.3); EOSINOPHILS % (AUTO) 2 % (0-10); HEMATOCRIT 45 % (40-54); HEMOGLOBIN 15.4 g/dL (13.3-17.7); LYMPHOCYTES # (AUTO) 2.4 10^3/uL (1.0-4.0); LYMPHOCYTES % (AUTO) 23 % (12-44); MEAN CORPUSCULAR HEMOGLOBIN 31 pg (25-34); MEAN CORPUSCULAR HGB CONC 34 g/dL (32-36); MEAN CORPUSCULAR VOLUME 90 fL (80-99); MEAN PLATELET VOLUME 10.5 fL (9.0-12.2); MONOCYTES # (AUTO) 0.7 10^3/uL (0.0-1.0); MONOCYTES % (AUTO) 7 % (0-12); NEUTROPHILS % (AUTO) 67 % (42-75); PLATELET COUNT 209 10^3/uL (130-400); WHITE BLOOD COUNT 10.5 10^3/uL (4.3-11.0)
[2022-05-01] MEDS ORDERED: meTOproloL SUCCINATE 50 MG (TOPROL XL) TAB PO ONE (23:56)
[2022-05-01 23:58] LABS: ALBUMIN 3.7 GM/DL (3.2-4.5); POTASSIUM 3.5 MMOL/L (3.6-5.0)
[2022-05-01 23:59] LABS: CALCIUM 8.8 MG/DL (8.5-10.1)
[2022-05-02 00:01] LABS: TOTAL PROTEIN 6.3 GM/DL (6.4-8.2)
[2022-05-02 00:02] LABS: BILIRUBIN,TOTAL 0.3 MG/DL (0.1-1.0)
[2022-05-02 00:04] LABS: CREATININE SERUM 1.12 MG/DL (0.60-1.30)
[2022-05-02 00:07] LABS: MAGNESIUM 1.8 MG/DL (1.6-2.4)
[2022-05-02 01:15] VITALS: BP 143/103
--- NOTE | 2022-05-02 05:44 | Diagnostic Imaging Report ---
INDICATION: 51-year-old male with chest pain. COMPARISONS: 04/17/2022 FINDINGS: Single view of the chest once again is underpenetrated. There is borderline cardiomegaly with central venous congestion. This is similar to the previous study. A right lower lobe consolidation is unchanged. Left basilar infiltrates are also unchanged. Overall stable findings. IMPRESSION: 1. Borderline cardiomegaly with moderate central venous congestion slightly improved. 2. Lower lobe alveolar infiltrates similar to the previous study. Overall assessment is limited due to the underpenetrated film. Dictated by: Dictated on workstation # [id number]
== END 2022-05-02 01:15 | disposition home or self-care (01) ==
LOC: EDUNIT# 23:22 → ER 23:23
DX: R07.89 Other chest pain (principal); E11.9 Type 2 diabetes mellitus without complications; Z79.84 Long term (current) use of oral hypoglycemic drugs
CPT/HCPCS: 36415; 71045; 80053; 83735; 84484; 85025; 93005

== ENCOUNTER 2022-09-09 16:22 | Emergency (ER) | payer MEDICAID ==
[~2022-09-09 16:22] MED LIST changes: +POTA-330 PO; -POTA-51 PO; +TOPI-241 PO; -TOPI50TA13 PO
[2022-09-09] MEDS ORDERED: NITROGLYCERIN 0.4 MG SL TABS BTL 25'S SL PRN (18:00)
[2022-09-09] MEDS ORDERED: ASPIRIN 81 MG CHEW (CHILDREN'S ASA) PO ONE (18:00)
[2022-09-09] MEDS ORDERED: NITROGLYCERIN 2% OINT 1 GM UNIT DOSE PACKET TOP ONE (18:00)
[2022-09-09 18:04] LABS: BASOPHILS # (AUTO) 0.1 10^3/uL (0.0-0.1); BASOPHILS % (AUTO) 1 % (0-10); EOSINOPHILS # (AUTO) 0.3 10^3/uL (0.0-0.3); EOSINOPHILS % (AUTO) 3 % (0-10); HEMATOCRIT 49 % (40-54); HEMOGLOBIN 16.1 g/dL (13.3-17.7); LYMPHOCYTES # (AUTO) 2.8 10^3/uL (1.0-4.0); LYMPHOCYTES % (AUTO) 27 % (12-44); MEAN CORPUSCULAR HEMOGLOBIN 30 pg (25-34); MEAN CORPUSCULAR HGB CONC 33 g/dL (32-36); MEAN CORPUSCULAR VOLUME 92 fL (80-99); MEAN PLATELET VOLUME 11.4 fL (9.0-12.2); MONOCYTES # (AUTO) 0.9 10^3/uL (0.0-1.0); MONOCYTES % (AUTO) 9 % (0-12); NEUTROPHILS # (AUTO) 6.1 10^3/uL (1.8-7.8); NEUTROPHILS % (AUTO) 59 % (42-75); PLATELET COUNT 205 10^3/uL (130-400); WHITE BLOOD COUNT 10.3 10^3/uL (4.3-11.0)
[2022-09-09 18:06] LABS: ALBUMIN 3.8 GM/DL (3.2-4.5); CHLORIDE 103 MMOL/L (98-107); POTASSIUM 4.2 MMOL/L (3.6-5.0); SODIUM 138 MMOL/L (135-145)
[2022-09-09 18:07] LABS: AMYLASE 57 U/L (25-125); CALCIUM 9.4 MG/DL (8.5-10.1)
--- NOTE | 2022-09-09 18:07 | ED Chest Pain ---
General Chief Complaint: Chest Pain Stated Complaint: CHEST PAIN Nursing Triage Note: PT TO RM 1 BY [facility] FROM [facility] FOR CP. PT INITIALLY RATED PAIN 10/10 THEN AFTER ASA X4 PT RATES 5/10 Source: patient, snf records, old records History of Present Illness Date Seen by Provider: Sep 09, 2022 Time Seen by Provider: 17:50 Initial Comments PT ARRIVED VIA EMS FROM [facility], PRIOR TO MY ARRIVAL. PT C/O CHEST PAIN THAT BEGAN AROUND 1530 WHILE SITTING AND PLAYING VIDEO GAMES PAIN WAS 10/10 AT WORST, RATES PAIN 2/10 AT THIS TIME PAIN IS IN CENTER OF CHEST AND DOES NOT RADIATE NOTHING WORSENS OR IMPROVES PAIN SLIGHT SHORTNESS OF BREATH NO SWEATS NO NAUSEA/VOMITING NO DIZZINESS OR SYNCOPE NO PALPITATIONS NO SWELLING IN LEGS/ FEET OR PAIN IN CALVES PT WAS GIVEN 324 MG ASPIRIN BY EMS PRIOR TO ARRIVAL PT HAS HISTORY OF CAD WITHOUT INTERVENTION (LAST CATH 05/2020), AND ATRIAL FIBRILLATION AND IS ON ELIQUIS HE IS MORBIDLY OBESE, HAS HTN, COPD AND IS NON INSULIN DEPENDENT DIABETIC. HE HAS HISTORY OF SMOKING, DAILY ALCOHOL ABUSE, EXTENSIVE ILLICIT DRUG HISTORY. HE HAS BEEN IN [facility] SINCE 05/07/22 PCP: DR. NATALYA NEWMAN Allergies and Home Medications Allergies Coded Allergies: No Known Drug Allergies (Unverified , 03/26/21) Patient Home Medication List Home Medication List Reviewed: Yes Acetaminophen (Tylenol Extra Strength) 500 Mg Tablet, 1,000 MG PO Q4H PRN for PAIN-MILD (1-4), (Reported) Entered as Reported by: NEPTALI PUCKETT on 01/15/19 1059 Albuterol Sulfate (Ventolin Hfa) 1 Puff Puff, 2 PUFF INH Q4H PRN for SHORTNESS OF BREATH, (Reported) Entered as Reported by: KERI BULLOCK on 01/25/22 1518 Amlodipine Besylate (Amlodipine Besylate) 5 Mg Tablet, 5 MG PO DAILY, (Reported) Entered as Reported by: BALDEV DOWNS on 02/28/22 0848 Apixaban (Eliquis) 5 Mg Tablet, 5 MG PO BID, (Reported) Entered as Reported by: BALDEV DOWNS on 02/28/22 0848 Aripiprazole (Aripiprazole) 30 Mg Tablet, 30 MG PO DAILY, (Reported) Entered as Reported by: BALDEV DOWNS on 02/28/22 0848 Aspirin (Aspirin EC) 81 Mg Tablet.dr, 81 MG PO DAILY, (Reported) Entered as Reported by: KERI BULLOCK on 03/21/22 1408 Atorvastatin Calcium (Atorvastatin Calcium) 40 Mg Tablet, 40 MG PO HS, (Reported) Entered as Reported by: NEPTALI PUCKETT on 01/15/19 1059 Baclofen (Baclofen) 10 Mg Tablet, 10 MG PO TID, (Reported) Entered as Reported by: BALDEV DOWNS on 01/07/22 0915 Balsalazide Disodium (Balsalazide Disodium) 750 Mg Capsule, 1,500 MG PO TID, (Reported) Entered as Reported by: KERI BULLOCK on 03/21/22 1408 Cefdinir (Cefdinir) 300 Mg Capsule, 300 MG PO BID Prescribed by: KRISTIAN CONTRERAS on 09/09/222146 Cyclobenzaprine HCl (Cyclobenzaprine HCl) 10 Mg Tablet, 10 MG PO HS, (Reported) Entered as Reported by: BALDEV DOWNS on 02/28/22 0848 Duloxetine HCl (Duloxetine HCl) 60 Mg Capsule.dr, 120 MG PO DAILY, (Reported) Entered as Reported by: KERI BULLOCK on 05/09/20 1004 Famotidine (Famotidine) 20 Mg Tablet, 20 MG PO HS, (Reported) Entered as Reported by: NEPTALI PUCKETT on 01/15/19 1059 Fenofibrate Nanocrystallized (Fenofibrate) 145 Mg Tablet, 145 MG PO HS, (Reported) Entered as Reported by: NEPTALI PUCKETT on 01/15/19 1059 Gabapentin (Gabapentin) 600 Mg Tablet, 600 MG PO TID, (Reported) Entered as Reported by: KERI BULLOCK on 05/09/20 1008 Metformin HCl (Metformin HCl) 1,000 Mg Tablet, 1,000 MG PO BID, (Reported) Entered as Reported by: BALDEV DOWNS on 01/07/22 0915 Metoprolol Succinate (Metoprolol Succinate) 100 Mg Tab.er.24h, 100 MG PO DAILY, (Reported) Entered as Reported by: BALDEV DOWNS on 02/28/22 0848 Metronidazole (Metronidazole) 500 Mg Tablet, 500 MG PO TID Prescribed by: XAVI LOPEZ on 03/25/22 1027 Multivitamin (Multivitamin) 1 Each Tablet, 1 EACH PO DAILY, (Reported) Entered as Reported by: BALDEV DOWNS on 02/28/22 0848 Potassium Chloride (Potassium Chloride) 20 Meq Tab.er.prt, 40 MEQ PO BID, (Reported) Entered as Reported by: BALDEV DOWNS on 01/07/22 0915 Ropinirole HCl (Ropinirole HCl) 5 Mg Tablet, 5 MG PO TID, (Reported) Entered as Reported by: SHANNAN DIAZ on 05/22/18 0604 Sodium Bicarbonate (Sodium Bicarbonate) 650 Mg Tablet, 650 MG PO BID, (Reported) Entered as Reported by: KERI BULLOCK on 03/21/22 1408 Tamsulosin HCl (Flomax) 0.4 Mg Cap, 0.4 MG PO HS, (Reported) Entered as Reported by: BALDEV DOWNS on 01/07/22 0915 Review of Systems Review of Systems Constitutional: no symptoms reported Respiratory: See HPI, Shortness of Air Cardiovascular: See HPI, Chest Pain; Denies Edema, Denies Lightheadedness, Denies Palpitations, Denies Syncope Gastrointestinal: No Symptoms Reported; Denies Abdominal Pain, Denies Nausea, Denies Vomiting Genitourinary: No Symptoms Reported Musculoskeletal: no symptoms reported Skin: no symptoms reported Psychiatric/Neurological: No Symptoms Reported Endocrine: No Symptoms Reported Hematologic/Lymphatic: No Symptoms Reported Past Egudssu-Mmwsgr-Jdczad Hx Patient Social History Tobacco Use?: Yes Tobacco type used: Cigarettes Substance use?: No Alcohol Use?: Yes Pt feels they are or have been: No Immunizations Up To Date Tetanus Booster (TDap): Less than 5yrs PED Vaccines UTD: No First/Initial COVID19 Vaccinat: JUNE 2020 Second COVID19 Vaccination Ronald: JULY 2020 Third COVID19 Vaccination Date: 2021 Seasonal Allergies Seasonal Allergies: No Past Medical History Surgery/Hospitalization HX: LEFT URETERAL STENT, BACK SURGERY 2003 PMH: AKF, ENTERCOLITIS, SEPSIS, DEPRESSION, SLEEP APNEA, UTI, HTN, PULMONARY HTN, COPD, DM2, UTI, GERD, BPH, AFIB Surgeries: Yes Gallbladder, Orthopedic, Renal Respiratory: Yes (COVID-19) Sleep Apnea, COPD Currently Using CPAP: Yes Currently Using BIPAP: No Cardiac: Yes (PULMONARY HTN) Atrial Fibrillation, Chronic Edema/Swelling, Coronary Artery Disease, High Cholesterol, Hypertension Neurological: Yes Neuropathy Reproductive Disorders: No Sexually Transmitted Disease: No HIV/AIDS: No Genitourinary: Yes (URETERAL STENTS) Benign Prostatic Hyperpl, Renal Failure Gastrointestinal: Yes (S/P EVELIO) Colitis, Gastroesophageal Reflux, Gall Bladder Disease Musculoskeletal: Yes (BACK SX 2003;RESTLESS LEG SYNDROME) Degenerate Disk Disease, Arthritis, Chronic Back Pain, Gout Endocrine: Yes (MORBID OBESITY; ORAL MEDICATION FOR DIABETES) Diabetes, Non-Insulin dep HEENT: Yes Cancer: No Psychosocial: Yes (BIPOLAR, POLYSUBSTANCE ABUSE) Anxiety, Bipolar, Depression Integumentary: No Blood Disorders: No Adverse Reaction/Blood Tranf: No Family Medical History Completed stroke DVT 19 MOTHER, , Onset:Unknown Diabetes mellitus 19 MOTHER, , Onset:Unknown G8 BROTHER, Onset:Unknown FH: gastric ulcer 19 FATHER, Onset:Unknown No Pertinent Family Hx, DVT/PE, Diabetes, GI Disease SOCIAL HISTORY: -SMOKES AT LEAST 1 PPD -ETOH--HARD LIQUOR SEVERAL TIMES A WEEK -DRUGS--EXTENSIVE HISTORY OF DRUG USE, INCLUDING "SPEED" , COCAINE, MARIJUANA. HE DENIES IV DRUG USE, BUT HE HAS A TATTOO OF A SYRINGE AND NEEDLE IN HIS RIGHT AC SPACE. PAST SURGICAL HISTORY: -CHOLECYSTECTOMY -BACK SURGERY 2003 -URETERAL STENTS -LITHOTRIPSY 03/27/[address] GONZALES CARDIAC CATH 05/09/[address] ALMEIDA: -CONCLUSIONS: 1. No angiographically significant coronary artery disease. 2. Elevated left ventricular end-diastolic pressure. DISCUSSION AND RECOMMENDATIONS: Based on results of the study, chest discomfort does not appear to be of coronary origin. Continuing risk factor modification is advised. Outpatient followup is advised. PT HAS LONG HISTORY OF EXTREME NON-COMPLIANCE IN ALL ASPECTS OF CARE. PT HAS BEEN IN [facility] SINCE 05/07/22 Physical Exam Vital Signs Vital Signs - First Documented Capillary Refill : Height, Weight, BMI Height: 5'10.00" Weight: 330lbs. 3.0oz. 149.813392hx; 53.00 BMI Method:Stated General Appearance: No Apparent Distress, WD/WN, Obese (MORBIDLY OBESE), Other (SLEEPING/RESTING QUIETLY. 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, Other (FLAT AFFECT) Skin: Normal Color, Warm/Dry, Tattoos/Piercings (MULTIPLE TATTOOS, INCLUDING TATTOO IF A SYRINGE IN RIGHT AC SPACE) Progress/Results/Core Measures Results/Orders Lab Results Laboratory Tests Test 09/09/22 16:30 09/09/22 18:09 09/09/22 18:23 09/09/22 19:49 Range/Units White Blood Count 10.3 4.3-11.0 10^3/uL Red Blood Count 5.34 4.30-5.52 10^6/uL Hemoglobin 16.1 13.3-17.7 g/dL Hematocrit 49 40-54 % Mean Corpuscular Volume 92 80-99 fL Mean Corpuscular Hemoglobin 30 25-34 pg Mean Corpuscular Hemoglobin Concent 33 32-36 g/dL Red Cell Distribution Width 15.7 H 10.0-14.5 % Platelet Count 205 130-400 10^3/uL Mean Platelet Volume 11.4 9.0-12.2 fL Immature Granulocyte % (Auto) 1 % Neutrophils (%) (Auto) 59 42-75 % Lymphocytes (%) (Auto) 27 12-44 % Monocytes (%) (Auto) 9 0-12 % Eosinophils (%) (Auto) 3 0-10 % Basophils (%) (Auto) 1 0-10 % Neutrophils # (Auto) 6.1 1.8-7.8 10^3/uL Lymphocytes # (Auto) 2.8 1.0-4.0 10^3/uL Monocytes # (Auto) 0.9 0.0-1.0 10^3/uL Eosinophils # (Auto) 0.3 0.0-0.3 10^3/uL Basophils # (Auto) 0.1 0.0-0.1 10^3/uL Immature Granulocyte # (Auto) 0.1 0.0-0.1 10^3/uL Sodium Level 138 135-145 MMOL/L Potassium Level 4.2 3.6-5.0 MMOL/L Chloride Level 103 98-107 MMOL/L Carbon Dioxide Level 25 21-32 MMOL/L Anion Gap 10 5-14 MMOL/L Blood Urea Nitrogen 11 7-18 MG/DL Creatinine 1.24 0.60-1.30 MG/DL Estimat Glomerular Filtration Rate 70 BUN/Creatinine Ratio 9 Glucose Level 147 H 70-105 MG/DL Calcium Level 9.4 8.5-10.1 MG/DL Corrected Calcium 9.6 8.5-10.1 MG/DL Magnesium Level 2.0 1.6-2.4 MG/DL Total Bilirubin 0.4 0.1-1.0 MG/DL Aspartate Amino Transf (AST/SGOT) 24 5-34 U/L Alanine Aminotransferase (ALT/SGPT) 20 0-55 U/L Alkaline Phosphatase 68 40-136 U/L Total Creatine Kinase 109 30-200 U/L Creatine Kinase MB 3.7 <6.6 NG/ML Myoglobin 54.9 10.0-92.0 NG/ML Troponin I < 0.028 < 0.028 <0.028 NG/ML B-Type Natriuretic Peptide < 10.0 <100.0 PG/ML Total Protein 6.6 6.4-8.2 GM/DL Albumin 3.8 3.2-4.5 GM/DL Amylase Level 57 25-125 U/L Lipase 106 H 8-78 U/L Prothrombin Time 13.5 12.2-14.7 SEC INR Comment 1.0 0.8-1.4 Activated Partial Thromboplast Time 31 24-35 SEC D-Dimer 0.32 0.00-0.49 UG/ML Urine Color YELLOW Urine Clarity CLEAR Urine pH 6.5 5-9 Urine Specific [place] 1.020 1.016-1.022 Urine Protein 2+ H NEGATIVE Urine Glucose (UA) NEGATIVE NEGATIVE Urine Ketones NEGATIVE NEGATIVE Urine Nitrite POSITIVE H NEGATIVE Urine Bilirubin NEGATIVE NEGATIVE Urine Urobilinogen 0.2 < = 1.0 MG/DL Urine Leukocyte Esterase NEGATIVE NEGATIVE Urine RBC (Auto) TRACE-I H NEGATIVE Urine RBC RARE /HPF Urine WBC RARE /HPF Urine Squamous Epithelial Cells RARE /HPF Urine Crystals NONE /LPF Urine Bacteria LARGE H /HPF Urine Casts NONE /LPF Urine Mucus NEGATIVE /LPF Urine Culture Indicated YES Urine Opiates Screen NEGATIVE NEGATIVE Urine Oxycodone Screen NEGATIVE NEGATIVE Urine Methadone Screen NEGATIVE NEGATIVE Urine Propoxyphene Screen NEGATIVE NEGATIVE Urine Barbiturates Screen NEGATIVE NEGATIVE Ur Tricyclic Antidepressants Screen NEGATIVE NEGATIVE Urine Phencyclidine Screen NEGATIVE NEGATIVE Urine Amphetamines Screen NEGATIVE NEGATIVE Urine Methamphetamines Screen NEGATIVE NEGATIVE Urine Benzodiazepines Screen NEGATIVE NEGATIVE Urine Cocaine Screen NEGATIVE NEGATIVE Urine Cannabinoids Screen NEGATIVE NEGATIVE My Orders Orders - KRISTIAN CONTRERAS DO Cbc With Automated Diff (09/09/22 17:54) Magnesium (09/09/22 17:54) Chest 1 View, Ap/Pa Only (09/09/22 17:54) Comprehensive Metabolic Panel (09/09/22 17:54) Myoglobin Serum (09/09/22 17:54) Protime With Inr (09/09/22 17:54) Partial Thromboplastin Time (09/09/22 17:54) O2 (09/09/22 17:54) Monitor-Rhythm Ecg Trace Only (09/09/22 17:54) Ed Iv/Invasive Line Start (09/09/22 17:54) Creatine Kinase (09/09/22 17:54) Creatine Kinase Mb (09/09/22 17:54) Lipase (09/09/22 17:54) Amylase (09/09/22 17:54) Bnp Porter (09/09/22 17:54) Fibrin Degradation Products (09/09/22 17:54) Troponin I Samuel (09/09/22 17:54) Nitroglycerin 0.4 Mg Btl 25's (Nitrostat (09/09/22 18:00) Aspirin Chewable Tablet (Baby Aspirin Ch (09/09/22 18:00) Nitroglycerin Ointment (Nitrobid Ointme (09/09/22 18:00) Alcohol (09/09/22 18:08) Drug Screen Stat (Urine) (09/09/22 18:08) Ua Culture If Indicated (09/09/22 18:08) Ct Angio Chest W (R/O Pe) (09/09/22 18:38) Labetalol Injection (Normodyne Injection (09/09/22 18:45) Urine Culture (09/09/22 18:23) Iohexol Injection (Omnipaque 350 Mg/Ml 1 (09/09/22 18:45) Ns (Ivpb) (Sodium Chloride 0.9% Ivpb Bag (09/09/22 18:45) Ceftriaxone Iv/Im (Rocephin Iv/Im) (09/09/22 18:57) Troponin I Porter (09/09/22 19:39) Ekg Tracing (09/09/22 19:39) Medications Given in ED Current Medications Medications Dose Ordered Sig/Saba Route Start Time Stop Time Status Last Admin Dose Admin Iohexol 100 ml ONCE ONCE IV 09/09/22 18:45 09/09/22 18:46 DC 09/09/22 19:13 100 ML Labetalol HCl 20 mg ONCE ONCE IV 09/09/22 18:45 09/09/22 18:46 DC 09/09/22 19:27 10 MG Nitroglycerin 1 inch ONCE ONCE TOP 09/09/22 18:00 09/09/22 18:01 DC 09/09/22 18:10 1 INCH Sodium Chloride 100 ml ONCE ONCE IV 09/09/22 18:45 09/09/22 18:46 DC 09/09/22 19:13 70 ML Vital Signs/I&O 09/09/22 09/09/22 09/09/22 16:25 16:25 21:51 Temp 37.6 Pulse 105 98 Resp 28 B/P (MAP) 154/101 (118) 124/90 Pulse Ox 93 94 96 O2 Delivery Nasal Cannula Nasal Cannula Room Air O2 Flow Rate 2.00 2.00 Blood Pressure Mean: 118 Progress Progress Note : Progress Note VITALS ON ARRIVAL: TEMP 37.6=99.6, HR 105, BP 154/101, RR 28, O2 SAT 93% ON 2L/NC VITALS ON MY ARRIVAL: BP 180/120. TEMP 36.7=98.0, HR 100 GIVEN: -NITROPASTE -LABETALOL -ROCEPHIN FOR UTI LABS INCLUDING CBC, CMP, BNP, TROPONIN, COAGULATION STUDIES, D-DIMER, WELL EKG AND CXR ORDERED LABS ARE UNREMARKABLE, INCLUDING NORMAL WBC, NEGATIVE TROPONIN X 2, NEGATIVE D- DIMER UA WITH LARGE BACTERIA, + NITRITES, RARE WBC EKG DOES NOT SHOW ANY ACUTE CHANGES X 2 , AND IS UNCHANGED FROM PREVIOUS. CXR IS UNCHANGED FROM PREVIOUS CT CHEST ANGIOGRAM IS UNREMARKABLE PAIN RESOLVED AT DISMISSAL VITALS STABLE AT DISMISSAL: BP 137/98, HR 98, O2 SAT 93% ON 2L/NC NO DETERIORATION IN PT'S CONDITION DURING ER STAY DISCUSSED TEST RESULTS, ANTICIPATED COURSE, MEDICATIONS, NEED FOR FOLLOW UP AND RETURN PRECAUTIONS. REVIEWED [facility] PAPERS, PRIOR VISITS INCLUDING ER VISITS, ADMITS/H&P'S/CONSULTS/DISCHARGE SUMMARIES, TESTS/PROCEDURES Initial ECG Impression Date: Sep 09, 2022 Initial ECG Impression Time: 16:31 Initial ECG Rate: 104 Initial ECG Rhythm: S.Tach Initial ECG Intervals AK 182 QRS 104 QT/QTC 337/398 Initial ECG Impression: Nonspecific Changes (INFERIOR Q WAVES) Initial ECG Comparisson: Unchanged Comment INTERPRETED BY ME EKG : EKG Time: 20:27 Rate: 103 Rhythm: S.Tach Intervals: Normal ECG Comparisson: Unchanged ECG Impression: Nonspecific Changes Comment INTERPRETED BY ME Diagnostic Imaging Comments CXR--PER RADIOLOGIST REPORT AT 1836 FINDINGS: Heart is mildly enlarged. There is central vascular congestion which is similar to the prior study. There is some minimal bibasilar atelectatic change. There is no pneumothorax or pleural fluid. IMPRESSION: Cardiomegaly and central vascular congestion with unchanged bibasilar atelectatic change. Overall appearance is similar to the previous study of 05/01/2022. CT CHEST ANGIOGRAM--PER RADIOLOGIST REPORT AT 1936 FINDINGS: There are no CT angiographic findings of a central pulmonary embolus or evidence of right ventricular strain. The thoracic aorta is normal without dissection, aneurysm, or intramural hematoma. Heart size appears appropriate. The lungs are clear without findings of pneumonia or plain film findings of edema. There is no suspicious nodule or mass. There is no effusion. There is no pneumothorax. There are no CT findings of thoracic adenopathy. Upper abdomen demonstrates prior cholecystectomy changes and a nonobstructing right renal calculus. There is no acute or suspicious osseous abnormality demonstrated. IMPRESSION: 1. No CT angiographic evidence of pulmonary embolism or right ventricular strain. 2. No acute aortic syndrome. 3. Lungs appear clear. 4. No acute osseous abnormality. Reviewed: Reviewed by Me Departure Impression Primary Impression: Chest pain Additional Impressions: HTN (hypertension) COPD (chronic obstructive pulmonary disease) UTI (urinary tract infection) Disposition: 03 XFER SNF Condition: Improved Departure-Patient Inst. Decision time for Depature: 21:00 Referrals: [facility] (PCP/Family) Primary Care Physician Patient Instructions: Chest Pain (DC), High Blood Pressure (DC), Urinary Tract Infection, Adult (DC) Add. Discharge Instructions: CONTINUE YOUR MEDICATIONS PRESCRIBED FOLLOW UP WITH YOUR DR THIS WEEK FOR FURTHER CARE, RETURN TO ER IF SYMPTOMS WORSEN All discharge instructions reviewed with patient and/or family. Voiced understanding. Scripts Cefdinir (Cefdinir) 300 Mg Capsule 300 MG PO BID, #20 CAP Prov: KRISTIAN CONTRERAS DO 09/09/22 KRISTIAN CONTRERAS DO Sep 09, 2022 18:07
[2022-09-09 18:08] LABS: GLUCOSE 147 MG/DL (70-105); TOTAL PROTEIN 6.6 GM/DL (6.4-8.2)
[2022-09-09 18:09] LABS: CARBON DIOXIDE 25 MMOL/L (21-32)
[2022-09-09 18:10] LABS: BILIRUBIN,TOTAL 0.4 MG/DL (0.1-1.0)
[2022-09-09 18:12] LABS: ALKALINE PHOSPHATASE 68 U/L (40-136); CREATININE SERUM 1.24 MG/DL (0.60-1.30); GFR ESTIMATED 70
[2022-09-09 18:13] LABS: BUN/CREATININE RATIO 9
[2022-09-09 18:15] LABS: ALANINE AMINOTRANSFERASE 20 U/L (0-55)
[2022-09-09 18:16] LABS: CREATINE KINASE 109 U/L (30-200); LIPASE 106 U/L (8-78)
[2022-09-09 18:22] LABS: CREATINE KINASE MB 3.7 NG/ML (<6.6)
[2022-09-09 18:28] LABS: BILIRUBIN,URINE NEGATIVE (NEGATIVE); CLARITY,URINE CLEAR; COLOR,URINE YELLOW; GLUCOSE, URINE (UA) NEGATIVE (NEGATIVE); KETONES,URINE NEGATIVE (NEGATIVE); LEUKOCYTE ESTERASE ,URINE NEGATIVE (NEGATIVE); NITRITE,URINE POSITIVE (NEGATIVE); PH,URINE 6.5 (5-9); PROTEIN,URINE 2+ (NEGATIVE)
--- NOTE | 2022-09-09 18:31 | Diagnostic Imaging Report ---
INDICATION: Chest pain. Frontal chest obtained at 6:04 p.m. and compared to 05/01/2022. FINDINGS: Heart is mildly enlarged. There is central vascular congestion which is similar to the prior study. There is some minimal bibasilar atelectatic change. There is no pneumothorax or pleural fluid. IMPRESSION: Cardiomegaly and central vascular congestion with unchanged bibasilar atelectatic change. Overall appearance is similar to the previous study of 05/01/2022. Dictated by: Dictated on workstation # [id number]
[2022-09-09 18:40] LABS: PROTHROMBIN TIME PATIENT 13.5 SEC (12.2-14.7)
[2022-09-09 18:43] LABS: FIBRIN DEGRADATION PRODUCTS 0.32 UG/ML (0.00-0.49)
[2022-09-09 18:43] LABS: BACTERIA,URINE LARGE /HPF; RBC,URINE RARE /HPF; SQUAMOUS EPITHELIAL CELL,UR RARE /HPF; WBC,URINE RARE /HPF
[2022-09-09] MEDS ORDERED: NS 100 ML (IVPB) BAG IV ONE (18:45)
[2022-09-09] MEDS ORDERED: LABETALOL HCL 20 MG/4 ML VIAL IV ONE (18:45)
[2022-09-09] MEDS ORDERED: IOHEXOL 350 MG/ML 100 ML (OMNIPAQUE 350) VIAL IV ONE (18:45)
[2022-09-09 18:47] LABS: AMPHETAMINE SCREEN, URINE NEGATIVE (NEGATIVE); BARBITURATE SCREEN URINE NEGATIVE (NEGATIVE); BENZODIAZEPINES SCREEN URINE NEGATIVE (NEGATIVE); CANNABINOID SCREEN, URINE NEGATIVE (NEGATIVE); COCAINE SCREEN URINE NEGATIVE (NEGATIVE); METHADONE STAT NEGATIVE (NEGATIVE); OPIATE SCREEN URINE NEGATIVE (NEGATIVE); OXYCODONE STAT NEGATIVE (NEGATIVE); PROPOXYPHENE STAT NEGATIVE (NEGATIVE); TRICYCLIC ANTIDEPRESSANTS SCRE NEGATIVE (NEGATIVE)
[2022-09-09] MEDS ORDERED: cefTRIAXone IV/IM 1,000 MG in NS (IVPB) 50 ML IV STA (18:57)
--- NOTE | 2022-09-09 19:31 | Diagnostic Imaging Report ---
EXAMINATION: CT angiogram of the chest with contrast. INDICATION: Shortness of breath. Evaluate for pulmonary embolism. TECHNIQUE: After intravenous administration of contrast, thin section axial CT angiography of the chest was performed. Multiple reconstructions were provided including MIP reformats. All CT scans use one or more of the following dose optimizing techniques: Automated exposure control, MA and/or KvP adjustment based on patient size and exam type or iterative reconstruction. COMPARISON: Chest radiograph from the same day. FINDINGS: There are no CT angiographic findings of a central pulmonary embolus or evidence of right ventricular strain. The thoracic aorta is normal without dissection, aneurysm, or intramural hematoma. Heart size appears appropriate. The lungs are clear without findings of pneumonia or plain film findings of edema. There is no suspicious nodule or mass. There is no effusion. There is no pneumothorax. There are no CT findings of thoracic adenopathy. Upper abdomen demonstrates prior cholecystectomy changes and a nonobstructing right renal calculus. There is no acute or suspicious osseous abnormality demonstrated. IMPRESSION: 1. No CT angiographic evidence of pulmonary embolism or right ventricular strain. 2. No acute aortic syndrome. 3. Lungs appear clear. 4. No acute osseous abnormality. Dictated by: Dictated on workstation # [id number]
[2022-09-09] MEDS ORDERED: CEFD300C3 PO (21:47)
[2022-09-09 21:51] VITALS: BP 124/90
== END 2022-09-09 22:28 ==
LOC: EDUNIT# 16:22 → ER 16:24
DX: I10 Essential (primary) hypertension (principal); J44.9 Chronic obstructive pulmonary disease, unspecified; N39.0 Urinary tract infection, site not specified; I48.91 Unspecified atrial fibrillation; G47.30 Sleep apnea, unspecified; E66.01 Morbid (severe) obesity due to excess calories; F17.210 Nicotine dependence, cigarettes, uncomplicated; Z68.43 Body mass index [BMI] 50.0-59.9, adult; Z86.16 Personal history of COVID-19; Z79.01 Long term (current) use of anticoagulants; Z99.89 Dependence on other enabling machines and devices
CPT/HCPCS: 36415; 71045; 71275; 80053; 80306; 81000; 82150; 82550; 82553; 83690; 83735; 83874; 83880; 84484; 85025; 85379; 85610; 85730; 87088; 93005; 93041

== ENCOUNTER 2022-10-14 16:30 | Emergency (ER) | payer MEDICAID ==
[~2022-10-14 16:30] MED LIST changes: -NFD60TCR PO; +NIFE-55 PO; +NIFE-56 PO; -NIFE30TA89 PO
[2022-10-14] MEDS ORDERED: FAMOTIDINE 20 MG TABLET PO STA (16:42)
[2022-10-14] MEDS ORDERED: ANTACID SUSPENSION 30 ML UDC PO ONE (16:45)
[2022-10-14] MEDS ORDERED: LIDOCAINE 2% VISCOUS 15 ML UDC PO ONE (16:45)
--- NOTE | 2022-10-14 16:46 | ED Cardiac General ---
History of Present Illness General Chief Complaint: Chest Pain Stated Complaint: CHEST PAIN Source: patient, EMS, [facility] records, old records Exam Limitations: no limitations (KARON HERNANDEZ MD) History of Present Illness Date Seen by Provider: Oct 14, 2022 Time Seen by Provider: 16:30 Initial Comments 51-year-old male with past medical history of A-fib on Xarelto, morbid obesity, COPD, HTN, HLD, DM, chronic chest pain coming in due to chest pain. Started over an hour prior to arrival, constant, center of his chest, nonradiating, nothing seems to make it better or worse. Feels similar to multiple prior episodes for which she has come to the ER in the past several months. EMS given full dose aspirin and a nitro. He denies any fever, shortness of breath, abdominal pain, nausea, vomiting, weakness, numbness, or any other concerns. (KARON HERNANDEZ MD) Allergies and Home Medications Allergies Coded Allergies: No Known Drug Allergies (Unverified , 03/26/21) Patient Home Medication List Home Medication List Reviewed: Yes (KARON HERNANDEZ MD) Acetaminophen (Tylenol Extra Strength) 500 Mg Tablet, 1,000 MG PO Q4H PRN for PAIN-MILD (1-4), (Reported) Entered as Reported by: NEPTALI PUCKETT on 01/15/19 1059 Albuterol Sulfate (Ventolin Hfa) 1 Puff Puff, 2 PUFF INH Q4H PRN for SHORTNESS OF BREATH, (Reported) Entered as Reported by: KERI BULLOCK on 01/25/22 1518 Amlodipine Besylate (Amlodipine Besylate) 5 Mg Tablet, 5 MG PO DAILY, (Reported) Entered as Reported by: BALDEV DOWNS on 02/28/22 0848 Apixaban (Eliquis) 5 Mg Tablet, 5 MG PO BID, (Reported) Entered as Reported by: BALDEV DOWNS on 02/28/22 0848 Aripiprazole (Aripiprazole) 30 Mg Tablet, 30 MG PO DAILY, (Reported) Entered as Reported by: BALDEV DOWNS on 02/28/22 0848 Aspirin (Aspirin EC) 81 Mg Tablet.dr, 81 MG PO DAILY, (Reported) Entered as Reported by: KERI BULLOCK on 03/21/22 1408 Atorvastatin Calcium (Atorvastatin Calcium) 40 Mg Tablet, 40 MG PO HS, (Reported) Entered as Reported by: NEPTALI PUCKETT on 01/15/19 1059 Baclofen (Baclofen) 10 Mg Tablet, 10 MG PO TID, (Reported) Entered as Reported by: BALDEV DOWNS on 01/07/22 0915 Balsalazide Disodium (Balsalazide Disodium) 750 Mg Capsule, 1,500 MG PO TID, (Reported) Entered as Reported by: KERI BULLOCK on 03/21/22 1408 Cefdinir (Cefdinir) 300 Mg Capsule, 300 MG PO BID Prescribed by: KRISTIAN CONTRERAS on 09/09/22 2147 Cyclobenzaprine HCl (Cyclobenzaprine HCl) 10 Mg Tablet, 10 MG PO HS, (Reported) Entered as Reported by: BALDEV DOWNS on 02/28/22 0848 Duloxetine HCl (Duloxetine HCl) 60 Mg Capsule.dr, 120 MG PO DAILY, (Reported) Entered as Reported by: KERI BULLOCK on 05/09/20 1004 Famotidine (Famotidine) 20 Mg Tablet, 20 MG PO HS, (Reported) Entered as Reported by: NEPTALI PUCKETT on 01/15/19 1059 Fenofibrate Nanocrystallized (Fenofibrate) 145 Mg Tablet, 145 MG PO HS, (Reported) Entered as Reported by: NEPTALI PUCKETT on 01/15/19 1059 Gabapentin (Gabapentin) 600 Mg Tablet, 600 MG PO TID, (Reported) Entered as Reported by: KERI BULLOCK on 05/09/20 1008 Metformin HCl (Metformin HCl) 1,000 Mg Tablet, 1,000 MG PO BID, (Reported) Entered as Reported by: BALDEV DOWNS on 01/07/22 0915 Metoprolol Succinate (Metoprolol Succinate) 100 Mg Tab.er.24h, 100 MG PO DAILY, (Reported) Entered as Reported by: BALDEV DOWNS on 02/28/22 0848 Metronidazole (Metronidazole) 500 Mg Tablet, 500 MG PO TID Prescribed by: XAVI LOPEZ on 03/25/22 1027 Multivitamin (Multivitamin) 1 Each Tablet, 1 EACH PO DAILY, (Reported) Entered as Reported by: BALDEV DOWNS on 02/28/22 0848 Nitrofurantoin Monohyd/M-Cryst (Macrobid 100 mg Capsule) 100 Mg Capsule, 1 TAB PO BID Prescribed by: HELENA SOTO on 09/17/22 0146 Potassium Chloride (Potassium Chloride) 20 Meq Tab.er.prt, 40 MEQ PO BID, (Reported) Entered as Reported by: BALDEV DOWNS on 01/07/22 0915 Ropinirole HCl (Ropinirole HCl) 5 Mg Tablet, 5 MG PO TID, (Reported) Entered as Reported by: SHANNAN DIAZ on 05/22/18 0604 Sodium Bicarbonate (Sodium Bicarbonate) 650 Mg Tablet, 650 MG PO BID, (Reported) Entered as Reported by: KERI BULLOCK on 03/21/22 1408 Tamsulosin HCl (Flomax) 0.4 Mg Cap, 0.4 MG PO HS, (Reported) Entered as Reported by: BALDEV DOWNS on 01/07/22 0915 Review of Systems Review of Systems Constitutional: No fever EENTM: No Symptoms Reported Respiratory: No Symptoms Reported Cardiovascular: See HPI Gastrointestinal: No Symptoms Reported Genitourinary: No Symptoms Reported Musculoskeletal: no symptoms reported Skin: no symptoms reported Psychiatric/Neurological: No Symptoms Reported Endocrine: No Symptoms Reported Hematologic/Lymphatic: No Symptoms Reported (KARON HERNANDEZ MD) Past Pjouqgv-Rrpqvu-Jixmya Hx Patient Social History Substance use?: No (KARON HERNANDEZ MD) Immunizations Up To Date Tetanus Booster (TDap): Less than 5yrs PED Vaccines UTD: No First/Initial COVID19 Vaccinat: JUNE 2020 Second COVID19 Vaccination Ronald: JULY 2020 Third COVID19 Vaccination Date: 2021 (KARON HERNANDEZ MD) Seasonal Allergies Seasonal Allergies: No (KARON HERNANDEZ MD) Past Medical History Surgery/Hospitalization HX: LEFT URETERAL STENT, BACK SURGERY 2003 PMH: AKF, ENTERCOLITIS, SEPSIS, DEPRESSION, SLEEP APNEA, UTI, HTN, PULMONARY HTN, COPD, DM2, UTI, GERD, BPH, AFIB Surgeries: Yes Gallbladder, Orthopedic, Renal Respiratory: Yes (COVID-19) Sleep Apnea, COPD Currently Using CPAP: Yes Currently Using BIPAP: No Cardiac: Yes (PULMONARY HTN) Atrial Fibrillation, Chronic Edema/Swelling, Coronary Artery Disease, High Cholesterol, Hypertension Neurological: Yes Neuropathy Reproductive Disorders: No Sexually Transmitted Disease: No HIV/AIDS: No Genitourinary: Yes (URETERAL STENTS) Benign Prostatic Hyperpl, Renal Failure Gastrointestinal: Yes (S/P EVELIO) Colitis, Gastroesophageal Reflux, Gall Bladder Disease Musculoskeletal: Yes (BACK SX 2003;RESTLESS LEG SYNDROME) Degenerate Disk Disease, Arthritis, Chronic Back Pain, Gout Endocrine: Yes (MORBID OBESITY; ORAL MEDICATION FOR DIABETES) Diabetes, Non-Insulin dep HEENT: Yes Cancer: No Psychosocial: Yes (BIPOLAR, POLYSUBSTANCE ABUSE) Anxiety, Bipolar, Depression Integumentary: No Blood Disorders: No Adverse Reaction/Blood Tranf: No (KARON HERNANDEZ MD) Family Medical History Completed stroke DVT 19 MOTHER, , Onset:Unknown Diabetes mellitus 19 MOTHER, , Onset:Unknown G8 BROTHER, Onset:Unknown FH: gastric ulcer 19 FATHER, Onset:Unknown No Pertinent Family Hx, DVT/PE, Diabetes, GI Disease SOCIAL HISTORY: -SMOKES AT LEAST 1 PPD -ETOH--HARD LIQUOR SEVERAL TIMES A WEEK -DRUGS--EXTENSIVE HISTORY OF DRUG USE, INCLUDING "SPEED" , COCAINE, MARIJUANA. HE DENIES IV DRUG USE, BUT HE HAS A TATTOO OF A SYRINGE AND NEEDLE IN HIS RIGHT AC SPACE. PAST SURGICAL HISTORY: -CHOLECYSTECTOMY -BACK SURGERY 2003 -URETERAL STENTS -LITHOTRIPSY 03/27/[address] GONZALES CARDIAC CATH 05/09/[address] ALMEIDA: -CONCLUSIONS: 1. No angiographically significant coronary artery disease. 2. Elevated left ventricular end-diastolic pressure. DISCUSSION AND RECOMMENDATIONS: Based on results of the study, chest discomfort does not appear to be of coronary origin. Continuing risk factor modification is advised. Outpatient followup is advised. PT HAS LONG HISTORY OF EXTREME NON-COMPLIANCE IN ALL ASPECTS OF CARE. PT HAS BEEN IN [facility] SINCE 05/07/22 (KARON HERNANDEZ MD) Physical Exam Vital Signs Vital Signs - First Documented 10/14/22 16:30 Temp 36.9 Pulse 96 Resp 21 B/P (MAP) 131/82 (98) Pulse Ox 95 O2 Delivery Room Air (JOHANN GRAHAM MD) Vital Signs Capillary Refill : (KARON HERNANDEZ MD) Height, Weight, BMI Height: 5'10.00" Weight: 330lbs. 3.0oz. [id number]; 53.00 BMI Method:Stated General Appearance: No Apparent Distress, Obese HEENT: PERRL/EOMI, Normal ENT Inspection, Pharynx Normal Neck: Full Range of Motion, Normal Inspection, Non Tender, Supple Respiratory: Chest Non Tender, Lungs Clear, Normal Breath Sounds, No Accessory Muscle Use, No Respiratory Distress Cardiovascular: Regular Rate, Rhythm, Normal Peripheral Pulses Gastrointestinal: Normal Bowel Sounds, Non Tender, Soft Extremity: Normal Capillary Refill, Normal Inspection, Normal Range of Motion, Non Tender, No Calf Tenderness Neurologic/Psychiatric: Alert, Oriented x3, No Motor/Sensory Deficits, Normal Mood/Affect Skin: Normal Color, Warm/Dry (KARON HERNANDEZ MD) Progress/Results/Core Measures Results/Orders Lab Results Laboratory Tests Test 10/14/22 16:40 10/14/22 16:54 10/14/22 18:30 Range/Units Sodium Level 136 135-145 MMOL/L Potassium Level 4.5 3.6-5.0 MMOL/L Chloride Level 103 98-107 MMOL/L Carbon Dioxide Level 24 21-32 MMOL/L Anion Gap 9 5-14 MMOL/L Blood Urea Nitrogen 12 7-18 MG/DL Creatinine 1.24 0.60-1.30 MG/DL Estimat Glomerular Filtration Rate 70 BUN/Creatinine Ratio 10 Glucose Level 145 H 70-105 MG/DL Calcium Level 9.0 8.5-10.1 MG/DL Corrected Calcium 9.2 8.5-10.1 MG/DL Magnesium Level 2.2 1.6-2.4 MG/DL Total Bilirubin 0.4 0.1-1.0 MG/DL Aspartate Amino Transf (AST/SGOT) 32 5-34 U/L Alanine Aminotransferase (ALT/SGPT) 26 0-55 U/L Alkaline Phosphatase 68 40-136 U/L Troponin I < 0.028 < 0.028 <0.028 NG/ML Total Protein 6.8 6.4-8.2 GM/DL Albumin 3.8 3.2-4.5 GM/DL Lipase 112 H 8-78 U/L White Blood Count 8.5 4.3-11.0 10^3/uL Red Blood Count 4.94 4.30-5.52 10^6/uL Hemoglobin 15.2 13.3-17.7 g/dL Hematocrit 46 40-54 % Mean Corpuscular Volume 94 80-99 fL Mean Corpuscular Hemoglobin 31 25-34 pg Mean Corpuscular Hemoglobin Concent 33 32-36 g/dL Red Cell Distribution Width 15.3 H 10.0-14.5 % Platelet Count 178 130-400 10^3/uL Mean Platelet Volume 10.9 9.0-12.2 fL Immature Granulocyte % (Auto) 1 % Neutrophils (%) (Auto) 57 42-75 % Lymphocytes (%) (Auto) 29 12-44 % Monocytes (%) (Auto) 9 0-12 % Eosinophils (%) (Auto) 3 0-10 % Basophils (%) (Auto) 1 0-10 % Neutrophils # (Auto) 4.8 1.8-7.8 10^3/uL Lymphocytes # (Auto) 2.5 1.0-4.0 10^3/uL Monocytes # (Auto) 0.7 0.0-1.0 10^3/uL Eosinophils # (Auto) 0.2 0.0-0.3 10^3/uL Basophils # (Auto) 0.1 0.0-0.1 10^3/uL Immature Granulocyte # (Auto) 0.1 0.0-0.1 10^3/uL Prothrombin Time 13.2 12.2-14.7 SEC INR Comment 1.0 0.8-1.4 Activated Partial Thromboplast Time 32 24-35 SEC B-Type Natriuretic Peptide 10.9 <100.0 PG/ML (JOHANN GRAHAM MD) My Orders Orders - JOHANN GRAHAM MD Ekg Tracing (10/14/22 19:05) (JOHANN GRAHAM MD) Medications Given in ED Current Medications Medications Dose Ordered Sig/Saba Route Start Time Stop Time Status Last Admin Dose Admin Al Hydrox/Mg Hydrox/Simethicone 30 ml ONCE ONCE PO 10/14/22 16:45 10/14/22 16:46 DC 10/14/22 16:56 30 ML Lidocaine HCl 15 ml ONCE ONCE PO 10/14/22 16:45 10/14/22 16:46 DC 10/14/22 16:56 15 ML (JOHANN GRAHAM MD) Vital Signs/I&O 10/14/22 16:30 Temp 36.9 Pulse 96 Resp 21 B/P (MAP) 131/82 (98) Pulse Ox 95 O2 Delivery Room Air (JOHANN GRAHAM MD) Progress Progress Note : Progress Note 51-year-old male with above history coming in due to chest pain. ABCs were intact and vitals were stable on presentation. EKG with no STEMI, appears similar to prior. Chest x-ray ordered and interpreted by me showing no acute abnormalities. Labs significant for unremarkable white blood cell count, normal creatinine, negative troponin, normal BNP. He is not tachycardic, he is on blood thinners, no clinical signs of a DVT, and I think a PE would be very unlikely. He has already received aspirin and nitro which did not do much for the pain. After he received a GI cocktail I reassessed him, he is resting comfortably and appears to be in no pain or discomfort at all. I discussed with him the results, and discussed that we will do a repeat troponin. I signed out the patient to the oncoming provider, and I discussed that if his troponin is negative he likely will be discharged back to the [facility] versus if it is positive he will be admitted to the hospital. (KARON HERNANDEZ MD) Progress Note : Time: 19:16 Progress Note Patient care assumed at 6pm (shift change) with repeat troponin level pending. He has remained without significant complaint - basically sleeping throughout his ED visit. I have reviewed initial labs, imaging and EKG. No concerning findings for STEMI or NSTEMI. His second troponin is, again undetectable. Repeat EKG is unchanged without any ST change, ectopy or other concerns. Patient has no clinical or objective findings concerning for dissection, PE, pneumonia/sepsis. Will be discharged to home to resume current medications and follow ups as scheduled on an out patient basis. (JOHANN GRAHAM MD) Initial ECG Impression Date: Oct 14, 2022 Initial ECG Impression Time: 16:37 Initial ECG Rate: 95 Initial ECG Rhythm: Normal Sinus Comment Narrow QRS, borderline left axis deviation, left anterior fascicular block, no STEMI (KARON HERNANDEZ MD) EKG : EKG Time: 19:20 Rate: 85 Rhythm: Normal Sinus Intervals CA 199 QR [address] QTc [address] segment elevation or depression or ectopy - no change from initial (JOHANN GRAHAM MD) Diagnostic Imaging Diagonstic Imaging: Xray (chest) Comments [facility] [place], [place] NAME: DREW [facility]IL [facility] REC#: [id number] PT STATUS: REG ER : 1970 PHYSICIAN: KARON HERNANDEZ MD ADMIT DATE: 10/14/22/ER Signed Date of Exam:10/14/22 CHEST 1 VIEW, AP/PA ONLY INDICATION: Chest pain. COMPARISON is made with prior exam of 09/09/2022 FINDINGS: There is cardiomegaly and venous congestion. No pleural effusion or pneumothorax. The mediastinum is unremarkable. IMPRESSION: Cardiomegaly and some central pulmonary venous congestion. Dictated by: Dictated on workstation # [id number] Dict: 10/14/221716 Trans: 10/14/221717 [facility] [id number] Interpreted by: HALEY CASTANEDA MD Electronically signed by: HALEY CASTANEDA MD 10/14/221717 (KARON HERNANDEZ MD) Departure Impression Primary Impression: Chest pain Qualified Codes: R07.82 - Intercostal pain Disposition: 01 HOME, SELF-CARE Condition: Stable Departure-Patient Inst. Decision time for Depature: 19:24 (JOHANN GRAHAM MD) Referrals: [facility] [place] Primary Care Physician Patient Instructions: Chest Pain, Adult ED Add. Discharge Instructions: It does not appear like you are having a heart attack based on your evaluation today or any other life-threatening causes of chest pain. We do recommend following up with your floor runner as an outpatient, sooner since you have been in the ER quite a few times for this recently. Continue your medications as prescribed. You can try [id number] Maalox for discomfort as well. Copy Copies To 1: LUCIO SERVIN ZACHARY K MD Oct 14, 2022 16:46 JOHANN GRAHAM MD Oct 14, 2022 19:21
[2022-10-14 17:09] LABS: BASOPHILS # (AUTO) 0.1 10^3/uL (0.0-0.1); BASOPHILS % (AUTO) 1 % (0-10); EOSINOPHILS # (AUTO) 0.2 10^3/uL (0.0-0.3); EOSINOPHILS % (AUTO) 3 % (0-10); HEMATOCRIT 46 % (40-54); HEMOGLOBIN 15.2 g/dL (13.3-17.7); LYMPHOCYTES # (AUTO) 2.5 10^3/uL (1.0-4.0); LYMPHOCYTES % (AUTO) 29 % (12-44); MEAN CORPUSCULAR HEMOGLOBIN 31 pg (25-34); MEAN CORPUSCULAR HGB CONC 33 g/dL (32-36); MEAN CORPUSCULAR VOLUME 94 fL (80-99); MEAN PLATELET VOLUME 10.9 fL (9.0-12.2); MONOCYTES # (AUTO) 0.7 10^3/uL (0.0-1.0); MONOCYTES % (AUTO) 9 % (0-12); NEUTROPHILS # (AUTO) 4.8 10^3/uL (1.8-7.8); NEUTROPHILS % (AUTO) 57 % (42-75); PLATELET COUNT 178 10^3/uL (130-400); WHITE BLOOD COUNT 8.5 10^3/uL (4.3-11.0)
[2022-10-14 17:14] LABS: PROTHROMBIN TIME PATIENT 13.2 SEC (12.2-14.7)
[2022-10-14 17:16] LABS: ALBUMIN 3.8 GM/DL (3.2-4.5); CHLORIDE 103 MMOL/L (98-107); POTASSIUM 4.5 MMOL/L (3.6-5.0); SODIUM 136 MMOL/L (135-145)
[2022-10-14 17:19] LABS: GLUCOSE 145 MG/DL (70-105); TOTAL PROTEIN 6.8 GM/DL (6.4-8.2)
--- NOTE | 2022-10-14 17:19 | Diagnostic Imaging Report ---
INDICATION: Chest pain. COMPARISON is made with prior exam of 09/09/2022 FINDINGS: There is cardiomegaly and venous congestion. No pleural effusion or pneumothorax. The mediastinum is unremarkable. IMPRESSION: Cardiomegaly and some central pulmonary venous congestion. Dictated by: Dictated on workstation # [id number]
[2022-10-14 17:20] LABS: BILIRUBIN,TOTAL 0.4 MG/DL (0.1-1.0); CARBON DIOXIDE 24 MMOL/L (21-32)
[2022-10-14 17:22] LABS: ALKALINE PHOSPHATASE 68 U/L (40-136); CREATININE SERUM 1.24 MG/DL (0.60-1.30); GFR ESTIMATED 70
[2022-10-14 17:23] LABS: BUN/CREATININE RATIO 10
[2022-10-14 17:25] LABS: ALANINE AMINOTRANSFERASE 26 U/L (0-55); MAGNESIUM 2.2 MG/DL (1.6-2.4)
[2022-10-14 17:26] LABS: LIPASE 112 U/L (8-78)
[2022-10-14 19:45] VITALS: BP 121/74
== END 2022-10-14 19:59 | disposition home or self-care (01) ==
LOC: EDUNIT# 16:36 → ER 16:37
DX: R07.9 Chest pain, unspecified (principal); I48.91 Unspecified atrial fibrillation; G47.30 Sleep apnea, unspecified; E66.01 Morbid (severe) obesity due to excess calories; F17.210 Nicotine dependence, cigarettes, uncomplicated; Z86.16 Personal history of COVID-19; Z99.89 Dependence on other enabling machines and devices; Z68.43 Body mass index [BMI] 50.0-59.9, adult; Z79.01 Long term (current) use of anticoagulants
CPT/HCPCS: 36415; 71045; 80053; 83690; 83735; 83880; 84484; 85025; 85610; 85730; 93005; 93041

== ENCOUNTER 2022-11-01 09:32 | Observation (INO) | payer MEDICAID ==
[~2022-11-01] VITALS: Ht 177.8 cm; Wt 168.3 kg
[~2022-11-01 09:32] MED LIST changes: +DICY-11 PO; -DICY10CA12 PO; +FAMO-356 PO; -FAMO20TA3 PO; +ROPI4TAB40 PO; -ROPI4TAB5 PO; +ROPI5TAB23 PO; -ROPI5TAB3 PO
[2022-11-01] MEDS ORDERED: RT-ALBUTEROL HFA 8.5 GM INHALER IH STA (09:51)
[2022-11-01 10:04] LABS: BASOPHILS # (AUTO) 0.1 10^3/uL (0.0-0.1); BASOPHILS % (AUTO) 1 % (0-10); EOSINOPHILS # (AUTO) 0.2 10^3/uL (0.0-0.3); EOSINOPHILS % (AUTO) 2 % (0-10); HEMATOCRIT 49 % (40-54); LYMPHOCYTES # (AUTO) 1.6 10^3/uL (1.0-4.0); LYMPHOCYTES % (AUTO) 17 % (12-44); MEAN CORPUSCULAR HEMOGLOBIN 31 pg (25-34); MEAN CORPUSCULAR HGB CONC 33 g/dL (32-36); MEAN CORPUSCULAR VOLUME 95 fL (80-99); MEAN PLATELET VOLUME 10.6 fL (9.0-12.2); MONOCYTES # (AUTO) 0.7 10^3/uL (0.0-1.0); MONOCYTES % (AUTO) 8 % (0-12); NEUTROPHILS # (AUTO) 6.7 10^3/uL (1.8-7.8); NEUTROPHILS % (AUTO) 71 % (42-75); PLATELET COUNT 157 10^3/uL (130-400); WHITE BLOOD COUNT 9.4 10^3/uL (4.3-11.0)
[2022-11-01 10:23] LABS: BILIRUBIN,TOTAL 0.7 MG/DL (0.1-1.0); CALCIUM 9.2 MG/DL (8.5-10.1); CREATININE SERUM 1.24 MG/DL (0.60-1.30); TOTAL PROTEIN 6.5 GM/DL (6.4-8.2)
[2022-11-01 10:23] LABS: ABG BASE EXCESS 3.7 MMOL/L (-2.5-2.5); ABG OXYGEN SATURATION 97 % (94-100); ABG PCO2 48 MMHG (35-45); ABG PH 7.39 (7.37-7.43); ABG PO2 81 MMHG (79-93); ABG TCO2 30.1 MMOL/L (21.0-31.0)
[2022-11-01 10:26] LABS: ALLENS TEST YES-POS; INSPIRED O2 1 L; PATIENT TEMP 36.1; VENTILATOR NO
--- NOTE | 2022-11-01 10:58 | ED General ---
General Chief Complaint: General Problems/Pain Stated Complaint: WEAKNESS Nursing Triage Note: PT ARRIVED BY [facility] WITH CC OF WEAKNESS AND TINGLING IN HANDS. PT STATES THAT HE SLID OFF OF THE COUCH TODAY ONTO THE FLOOR. PT WAS UNABLE TO STAND ON OWN DUE TO WEAKNESS. PT IS CURRENTLY A RESIDENT AT [facility] BUT LEFT TO GO HOME FOR THE WEEKEND. Source of Information: Patient, EMS Exam Limitations: No Limitations History of Present Illness Date Seen by Provider: Nov 01, 2022 Time Seen by Provider: 09:34 Initial Comments This 51 year old man presents to the ER from EMS after sliding off his couch at home. He has a minor scrape on his right hand. He insists this was a no ntraumatic incident. He did not injure himself, but he was too weak to rise. Fire department was called to his home and was unable to get him up to the couch. EMS was then on seen. He could not rise without assistance and was lifted into the EMS cot. He is a resident of [facility] but was out on a pass for the weekend. He was supposed to be visiting his father's home for the weekend but was staying at his own home last night. Dov reports progressive generalized weakness over the past 2-3 days. EMS thought he perhaps had left sided weakness slightly worse than right, but Dov denied focal deficit. No focal deficit was appreciated on my exam. Patient is alert, but mentation is a bit sluggish and he is not a very detailed historian. He is well known to the ER and has extensive history in the chart. He has mild to moderate wheezing from his COPD. He took his morning medications but has not used any inhaled medications yet today. He reports his PCP is [facility] (was Dr. Martinez). Allergies and Home Medications Allergies Coded Allergies: No Known Drug Allergies (Unverified , 03/26/21) Patient Home Medication List Home Medication List Reviewed: Yes Acetaminophen (Tylenol Extra Strength) 500 Mg Tablet, 1,000 MG PO Q4H PRN for PAIN-MILD (1-4), (Reported) Entered as Reported by: NEPTALI PUCKETT on 01/15/19 1059 Albuterol Sulfate (Ventolin Hfa) 1 Puff Puff, 2 PUFF INH Q4H PRN for SHORTNESS OF BREATH, (Reported) Entered as Reported by: KERI BULLOCK on 01/25/22 1518 Amlodipine Besylate (Amlodipine Besylate) 5 Mg Tablet, 5 MG PO DAILY, (Reported) Entered as Reported by: BALDEV DOWNS on 02/28/22 0848 Apixaban (Eliquis) 5 Mg Tablet, 5 MG PO BID, (Reported) Entered as Reported by: BALDEV DOWNS on 02/28/22 0848 Aripiprazole (Aripiprazole) 30 Mg Tablet, 30 MG PO DAILY, (Reported) Entered as Reported by: BALDEV DOWNS on 02/28/22 0848 Aspirin (Aspirin EC) 81 Mg Tablet.dr, 81 MG PO DAILY, (Reported) Entered as Reported by: KERI BULLOCK on 03/21/22 1408 Atorvastatin Calcium (Atorvastatin Calcium) 40 Mg Tablet, 40 MG PO HS, (Reported) Entered as Reported by: NEPTALI PUCKETT on 01/15/19 1059 Baclofen (Baclofen) 10 Mg Tablet, 10 MG PO TID, (Reported) Entered as Reported by: BALDEV DOWNS on 01/07/22 0915 Balsalazide Disodium (Balsalazide Disodium) 750 Mg Capsule, 1,500 MG PO TID, (Reported) Entered as Reported by: KERI BULLOCK on 03/21/22 1408 Cefdinir (Cefdinir) 300 Mg Capsule, 300 MG PO BID Prescribed by: KRISTIAN CONTRERAS on 09/09/22 2147 Cyclobenzaprine HCl (Cyclobenzaprine HCl) 10 Mg Tablet, 10 MG PO HS, (Reported) Entered as Reported by: BALDEV DOWNS on 02/28/22 0848 Duloxetine HCl (Duloxetine HCl) 60 Mg Capsule.dr, 120 MG PO DAILY, (Reported) Entered as Reported by: KERI BULLOCK on 05/09/20 1004 Famotidine (Famotidine) 20 Mg Tablet, 20 MG PO HS, (Reported) Entered as Reported by: NEPTALI PUCKETT on 01/15/19 1059 Fenofibrate Nanocrystallized (Fenofibrate) 145 Mg Tablet, 145 MG PO HS, (Reported) Entered as Reported by: NEPTALI PUCKETT on 01/15/19 1059 Gabapentin (Gabapentin) 600 Mg Tablet, 600 MG PO TID, (Reported) Entered as Reported by: KERI BULLOCK on 05/09/20 1008 Metformin HCl (Metformin HCl) 1,000 Mg Tablet, 1,000 MG PO BID, (Reported) Entered as Reported by: BALDEV DOWNS on 01/07/22 09 Metoprolol Succinate (Metoprolol Succinate) 100 Mg Tab.er.24h, 100 MG PO DAILY, (Reported) Entered as Reported by: BALDEV DOWNS on 02/28/22 0848 Metronidazole (Metronidazole) 500 Mg Tablet, 500 MG PO TID Prescribed by: XAVI LOPEZ on 03/25/22 1027 Multivitamin (Multivitamin) 1 Each Tablet, 1 EACH PO DAILY, (Reported) Entered as Reported by: BALDEV DOWNS on 02/28/22 0848 Nitrofurantoin Monohyd/M-Cryst (Macrobid 100 mg Capsule) 100 Mg Capsule, 1 TAB PO BID Prescribed by: HELENA SOTO on 09/17/22 0146 Potassium Chloride (Potassium Chloride) 20 Meq Tab.er.prt, 40 MEQ PO BID, (Reported) Entered as Reported by: BALDEV DOWNS on 01/07/22 0915 Ropinirole HCl (Ropinirole HCl) 5 Mg Tablet, 5 MG PO TID, (Reported) Entered as Reported by: SHANNAN DIAZ on 05/22/18 0604 Sodium Bicarbonate (Sodium Bicarbonate) 650 Mg Tablet, 650 MG PO BID, (Reported) Entered as Reported by: KERI BULLOCK on 03/21/22 1408 Tamsulosin HCl (Flomax) 0.4 Mg Cap, 0.4 MG PO HS, (Reported) Entered as Reported by: BALDEV DOWNS on 01/07/22 0915 Review of Systems Review of Systems Constitutional: see HPI, weakness EENTM: no symptoms reported Respiratory: see HPI, short of breath, wheezing Cardiovascular: no symptoms reported Gastrointestinal: no symptoms reported Genitourinary: no symptoms reported Musculoskeletal: other (chronic neck and back pain) Skin: no symptoms reported Psychiatric/Neurological: See HPI Hematologic/Lymphatic: No Symptoms Reported Immunological/Allergic: no symptoms reported Past Ysduoxr-Tffvcs-Fwmfhv Hx Patient Social History Tobacco Use?: Yes Tobacco type used: Cigarettes Substance use?: No Alcohol Use?: No Immunizations Up To Date Tetanus Booster (TDap): Less than 5yrs PED Vaccines UTD: No First/Initial COVID19 Vaccinat: JUNE 2020 Second COVID19 Vaccination Ronald: JULY 2020 Third COVID19 Vaccination Date: 2021 Seasonal Allergies Seasonal Allergies: No Past Medical History Surgery/Hospitalization HX: LEFT URETERAL STENT, BACK SURGERY 2003 PMH: AKF, ENTERCOLITIS, SEPSIS, DEPRESSION, SLEEP APNEA, UTI, HTN, PULMONARY HTN, COPD, DM2, UTI, GERD, BPH, AFIB Surgeries: Yes Gallbladder, Orthopedic, Renal Respiratory: Yes (COVID-19) Sleep Apnea, COPD Currently Using CPAP: Yes Currently Using BIPAP: No Cardiac: Yes (PULMONARY HTN) Atrial Fibrillation, Chronic Edema/Swelling, Coronary Artery Disease, High Cholesterol, Hypertension Neurological: Yes Neuropathy Reproductive Disorders: No Sexually Transmitted Disease: No HIV/AIDS: No Genitourinary: Yes (URETERAL STENTS) Benign Prostatic Hyperpl, Renal Failure Gastrointestinal: Yes (S/P EVELIO) Colitis, Gastroesophageal Reflux, Gall Bladder Disease Musculoskeletal: Yes (BACK SX 2003;RESTLESS LEG SYNDROME) Degenerate Disk Disease, Arthritis, Chronic Back Pain, Gout Endocrine: Yes (MORBID OBESITY; ORAL MEDICATION FOR DIABETES) Diabetes, Non-Insulin dep HEENT: Yes Cancer: No Psychosocial: Yes (BIPOLAR, POLYSUBSTANCE ABUSE) Anxiety, Bipolar, Depression Integumentary: No Blood Disorders: No Adverse Reaction/Blood Tranf: No Family Medical History Completed stroke DVT 19 MOTHER, , Onset:Unknown Diabetes mellitus 19 MOTHER, , Onset:Unknown G8 BROTHER, Onset:Unknown FH: gastric ulcer 19 FATHER, Onset:Unknown No Pertinent Family Hx, DVT/PE, Diabetes, GI Disease SOCIAL HISTORY: -SMOKES AT LEAST 1 PPD -ETOH--HARD LIQUOR SEVERAL TIMES A WEEK -DRUGS--EXTENSIVE HISTORY OF DRUG USE, INCLUDING "SPEED" , COCAINE, MARIJUANA. HE DENIES IV DRUG USE, BUT HE HAS A TATTOO OF A SYRINGE AND NEEDLE IN HIS RIGHT AC SPACE. PAST SURGICAL HISTORY: -CHOLECYSTECTOMY -BACK SURGERY 2003 -URETERAL STENTS -LITHOTRIPSY 03/27/[address] GONZALES CARDIAC CATH 05/09/[address] ALMEIDA: -CONCLUSIONS: 1. No angiographically significant coronary artery disease. 2. Elevated left ventricular end-diastolic pressure. DISCUSSION AND RECOMMENDATIONS: Based on results of the study, chest discomfort does not appear to be of coronary origin. Continuing risk factor modification is advised. Outpatient followup is advised. PT HAS LONG HISTORY OF EXTREME NON-COMPLIANCE IN ALL ASPECTS OF CARE. PT HAS BEEN IN [facility] SINCE 05/07/22 Physical Exam Vital Signs Vital Signs - First Documented 11/01/22 11/01/22 09:34 10:13 Temp 36.1 Pulse 89 B/P (MAP) 127/81 (96) Pulse Ox 97 O2 Delivery Room Air O2 Flow Rate 1.00 Capillary Refill : Height, Weight, BMI Height: 5'10.00" Weight: 330lbs. 3.0oz. 149.942256cu; 50.00 BMI Method:Stated General Appearance: No Apparent Distress, WD/WN, Obese HEENT: PERRL/EOMI, Normal ENT Inspection Neck: Normal Inspection Respiratory: Wheezing, Other (increased work of breathing in expiratory phase) Cardiovascular: Regular Rate, Rhythm, No Murmur Gastrointestinal: Normal Bowel Sounds, Soft, Tenderness (scant migratory TTP) Extremity: Swelling, Other (mild, pain with TTP and ROM of the left knee, stated as chronic. Slight abrasion on right hand) Neurologic/Psychiatric: Alert, Oriented x3, Normal Mood/Affect, Other (sluggish mentation) Skin: Normal Color, Warm/Dry Progress/Results/Core Measures Suspected Sepsis SIRS Temperature: Pulse: 89 Respiratory Rate: Laboratory Tests 11/01/22 09:50: White Blood Count 9.4 Blood Pressure 127 /81 Mean: 96 Laboratory Tests 11/01/22 09:50: Creatinine 1.24, Platelet Count 157, Total Bilirubin 0.7 Results/Orders Lab Results Laboratory Tests Test 11/01/22 09:50 11/01/22 10:20 11/01/22 10:34 Range/Units White Blood Count 9.4 4.3-11.0 10^3/uL Red Blood Count 5.14 4.30-5.52 10^6/uL Hemoglobin 16.0 13.3-17.7 g/dL Hematocrit 49 40-54 % Mean Corpuscular Volume 95 80-99 fL Mean Corpuscular Hemoglobin 31 25-34 pg Mean Corpuscular Hemoglobin Concent 33 32-36 g/dL Red Cell Distribution Width 15.3 H 10.0-14.5 % Platelet Count 157 130-400 10^3/uL Mean Platelet Volume 10.6 9.0-12.2 fL Immature Granulocyte % (Auto) 1 % Neutrophils (%) (Auto) 71 42-75 % Lymphocytes (%) (Auto) 17 12-44 % Monocytes (%) (Auto) 8 0-12 % Eosinophils (%) (Auto) 2 0-10 % Basophils (%) (Auto) 1 0-10 % Neutrophils # (Auto) 6.7 1.8-7.8 10^3/uL Lymphocytes # (Auto) 1.6 1.0-4.0 10^3/uL Monocytes # (Auto) 0.7 0.0-1.0 10^3/uL Eosinophils # (Auto) 0.2 0.0-0.3 10^3/uL Basophils # (Auto) 0.1 0.0-0.1 10^3/uL Immature Granulocyte # (Auto) 0.1 0.0-0.1 10^3/uL Sodium Level 140 135-145 MMOL/L Potassium Level 4.0 3.6-5.0 MMOL/L Chloride Level 104 98-107 MMOL/L Carbon Dioxide Level 25 21-32 MMOL/L Anion Gap 11 5-14 MMOL/L Blood Urea Nitrogen 11 7-18 MG/DL Creatinine 1.24 0.60-1.30 MG/DL Estimat Glomerular Filtration Rate 70 BUN/Creatinine Ratio 9 Glucose Level 98 70-105 MG/DL Calcium Level 9.2 8.5-10.1 MG/DL Corrected Calcium 9.2 8.5-10.1 MG/DL Magnesium Level 2.0 1.6-2.4 MG/DL Total Bilirubin 0.7 0.1-1.0 MG/DL Aspartate Amino Transf (AST/SGOT) 25 5-34 U/L Alanine Aminotransferase (ALT/SGPT) 24 0-55 U/L Alkaline Phosphatase 60 40-136 U/L Total Protein 6.5 6.4-8.2 GM/DL Albumin 4.0 3.2-4.5 GM/DL Blood Gas Puncture Site LT RAD Blood Gas Patient Temperature 36.1 Arterial Blood pH 7.39 7.37-7.43 Arterial Blood Partial Pressure CO2 48 H 35-45 MMHG Arterial Blood Partial Pressure O2 81 79-93 MMHG Arterial Blood HCO3 29 H 23-27 MMOL/L Arterial Blood Total CO2 30.1 21.0-31.0 MMOL/L Arterial Blood Oxygen Saturation 97 94-100 % Arterial Blood Base Excess 3.7 H -2.5-2.5 MMOL/L Jude Test YES-POS Blood Gas Ventilator Setting NO Blood Gas Inspired Oxygen 1 L Urine Color YELLOW Urine Clarity CLOUDY Urine pH 7.0 5-9 Urine Specific [place] 1.015 L 1.016-1.022 Urine Protein 3+ H NEGATIVE Urine Glucose (UA) NEGATIVE NEGATIVE Urine Ketones NEGATIVE NEGATIVE Urine Nitrite POSITIVE H NEGATIVE Urine Bilirubin NEGATIVE NEGATIVE Urine Urobilinogen 0.2 < = 1.0 MG/DL Urine Leukocyte Esterase 3+ H NEGATIVE Urine RBC (Auto) 3+ H NEGATIVE Urine RBC 50-100 H /HPF Urine WBC TNTC H /HPF Urine Squamous Epithelial Cells 0-2 /HPF Urine Crystals NONE /LPF Urine Bacteria LARGE H /HPF Urine Casts NONE /LPF Urine Mucus NEGATIVE /LPF Urine Culture Indicated YES My Orders Orders - RUDY BARRETO MD Cbc With Automated Diff (11/01/22 09:49) Comprehensive Metabolic Panel (11/01/22 09:49) Magnesium (11/01/22 09:49) Ua Culture If Indicated (11/01/22 09:49) Ed Iv/Invasive Line Start (11/01/22 09:49) Monitor-Rhythm Ecg Trace Only (11/01/22 09:51) Albuterol Hfa Inhaler (Albuterol Hfa Inh (11/01/22 09:51) Arterial Blood Gas (11/01/22 10:13) Urine Culture (11/01/22 10:34) Ceftriaxone Iv/Im (Ceftriaxone Iv/Im) (11/01/22 11:40) Ed Admission (Communication) (11/01/22 12:41) Vital Signs/I&O 11/01/22 11/01/22 11/01/22 09:34 10:13 10:17 Temp 36.1 Pulse 89 B/P (MAP) 127/81 (96) Pulse Ox 97 97 O2 Delivery Room Air Nasal Cannula Nasal Cannula O2 Flow Rate 1.00 1.00 Capillary Refill : Blood Pressure Mean: 96 Progress Note : Progress Note Patient was interviewed and examined upon arrival and report was received from EMS. Patient did not appear to have any focal neurologic deficits or traumatic injuries. Labs were obtained, reviewed, and interpreted by me including CBC, CMP, magnesium, urinalysis, and ABG. CBC and CMP were unremarkable. Magnesium was normal. ABG demonstrated only slight elevation in PCO2 of 48 indicating patient's weakness and sluggishness is not related to hypercarbia. Urinalysis demonstrated significant WBC and RBC counts as well as large bacteria suggesting significant urinary tract infection. I believe this patient's generalized weakness is related to UTI and likely medication effect. He is noted to be on baclofen 10 mg 3 times daily. His compliance with medications cannot be validated since he has not been in the assisted overnight. I have suggested previously and I am suggesting again today that he not take baclofen due to its tendency to cause sedation and muscle weakness. Rocephin was given for initial treatment of urinary tract infection. It was noted on a urine culture in August that he had a fairly resistant strain of Staph epidermidis. Cultures are pending on this urine specimen. I discussed the case with Dr. Lopez, admitting hospitalist for [facility], who accepts admission. Departure Communication (Admissions) Time/Spoke to Admitting Phy: 12:40 Dr. Lopez Impression Primary Impression: UTI (urinary tract infection) Qualified Codes: N39.0 - Urinary tract infection, site not specified; R31.9 - Hematuria, unspecified Additional Impressions: Generalized weakness COPD (chronic obstructive pulmonary disease) Qualified Codes: J44.9 - Chronic obstructive pulmonary disease, unspecified Morbid obesity Declining functional status Disposition: ADMITTED INPATIENT Condition: Stable Admissions Decision to Admit Reason: Admit from ER (General) Decision to Admit/Date: Nov 01, 2022 Time/Decision to Admit Time: 12:40 Departure-Patient Inst. Referrals: [facility]/VITO (PCP/Family) Primary Care Physician Copy Copies To 1: [facility]/RUDY YE MD Nov 01, 2022 10:58
[2022-11-01 10:59] LABS: CLARITY,URINE CLOUDY; COLOR,URINE YELLOW; GLUCOSE, URINE (UA) NEGATIVE (NEGATIVE); PROTEIN,URINE 3+ (NEGATIVE)
[2022-11-01 11:00] LABS: BACTERIA,URINE LARGE /HPF; BILIRUBIN,URINE NEGATIVE (NEGATIVE); KETONES,URINE NEGATIVE (NEGATIVE); LEUKOCYTE ESTERASE ,URINE 3+ (NEGATIVE); NITRITE,URINE POSITIVE (NEGATIVE); RBC,URINE 50-100 /HPF; SQUAMOUS EPITHELIAL CELL,UR 0-2 /HPF; WBC,URINE TNTC /HPF
[2022-11-01] MEDS ORDERED: cefTRIAXone IV/IM 1,000 MG in NS (IVPB) 50 ML 50 ML IV STA (11:40)
--- NOTE | 2022-11-01 12:54 | History & Physical-Hospitalist ---
History of Present Illness Date Seen 11/01/22 Attending Physician [place] PCP Admitting Physician: Attending Physician: Referring Physician Date of Admission Home Medications & Allergies Home Medications Reviewed patient Home Medication Reconciliation performed by pharmacy medication reconciliations industrial hygiene technician and/or nursing. Patients Allergies have been reviewed. Allergies Allergies Coded Allergies No Known Drug Allergies (Unverified11/01/22) Past Jgqjlqw-Wusoly-Ftnkox Hx Patient Social History Tobacco Use?: Yes Tobacco type used: Cigarettes Substance use?: No Alcohol Use?: No Immunizations Up To Date Date of Influenza Vaccine: Dec 24, 2021 First/Initial COVID19 Vaccinat: JUNE 2020 Second COVID19 Vaccination Ronald: JULY 2020 Tetanus Booster (TDap): Unknown Hepatitis A: No Hepatitis B: No PED Vaccines UTD: No Date of Pneumonia Vaccine: May 22, 2016 Seasonal Allergies Seasonal Allergies: No Current Status Primary Language: Citizen Of [place] Preferred Spoken Language: Citizen Of [place] Past Medical History Surgeries: Gallbladder, Orthopedic, Renal Sleep Apnea, COPD Currently Using CPAP: Yes Currently Using BIPAP: No Atrial Fibrillation, Chronic Edema/Swelling, Coronary Artery Disease, High Cholesterol, Hypertension Neuropathy Sexually Transmitted Disease: No HIV/AIDS: No Benign Prostatic Hyperpl, Renal Failure Colitis, Gastroesophageal Reflux, Gall Bladder Disease Degenerate Disk Disease, Arthritis, Chronic Back Pain, Gout Diabetes, Non-Insulin dep Anxiety, Bipolar, Depression Blood Disorders: No Adverse Reaction/Blood Tranf: No PMHx: HTN NIDDM Restless Legs COPD Sleep apnea on cpap SurgHx: Back surgery Cholecystectomy Family Medical History Completed stroke DVT 19 MOTHER, , Onset:Unknown Diabetes mellitus 19 MOTHER, , Onset:Unknown G8 BROTHER, Onset:Unknown FH: gastric ulcer 19 FATHER, Onset:Unknown No Pertinent Family Hx, DVT/PE, Diabetes, GI Disease SOCIAL HISTORY: -SMOKES AT LEAST 1 PPD -ETOH--HARD LIQUOR SEVERAL TIMES A WEEK -DRUGS--EXTENSIVE HISTORY OF DRUG USE, INCLUDING "SPEED" , COCAINE, MARIJUANA. HE DENIES IV DRUG USE, BUT HE HAS A TATTOO OF A SYRINGE AND NEEDLE IN HIS RIGHT AC SPACE. PAST SURGICAL HISTORY: -CHOLECYSTECTOMY -BACK SURGERY 2003 -URETERAL STENTS -LITHOTRIPSY 03/27/[address] GONZALES CARDIAC CATH 05/09/[address] ALMEIDA: -CONCLUSIONS: 1. No angiographically significant coronary artery disease. 2. Elevated left ventricular end-diastolic pressure. DISCUSSION AND RECOMMENDATIONS: Based on results of the study, chest discomfort does not appear to be of coronary origin. Continuing risk factor modification is advised. Outpatient followup is advised. PT HAS LONG HISTORY OF EXTREME NON-COMPLIANCE IN ALL ASPECTS OF CARE. PT HAS BEEN IN [facility] SINCE 05/07/22 Physical Exam Physical Exam Vital Signs Vital Signs - First Documented 11/01/22 11/01/22 11/01/22 09:34 10:13 13:30 Temp 36.1 Pulse 89 Resp 20 B/P (MAP) 127/81 (96) Pulse Ox 97 O2 Delivery Room Air O2 Flow Rate 1.00 Capillary Refill : Height, Weight, BMI Height: 5'10.00" Weight: 330lbs. 3.0oz. 149.127783wi; 50.00 BMI Method:Stated Results Results/Procedures Labs Laboratory Tests 11/01/22 09:50 11/02/22 05:33 Patient resulted labs reviewed. XAVI LOPEZ DO Nov 01, 2022 12:54
[2022-11-01] MEDS ORDERED: MELATONIN 3 MG TABLET PO PRN (13:15)
[2022-11-01] MEDS ORDERED: ONDANSETRON 4 MG ORAL DISSOLVE TABLET PO PRN (13:15)
[2022-11-01] MEDS ORDERED: ANTACID SUSPENSION 30 ML UDC PO PRN (13:15)
[2022-11-01] MEDS ORDERED: BISACODYL 10 MG SUPPOSITORY PR PRN (13:15)
[2022-11-01] MEDS ORDERED: MILK OF MAGNESIA 400 MG/5 ML 30 ML UDC PO PRN (13:15)
[2022-11-01] MEDS ORDERED: LACTULOSE SYRUP 10GM/15ML 30ML UDC PO PRN (13:15)
[2022-11-01] MEDS ORDERED: VANCOMYCIN INJECTION 0.1 MG in NS (IVPB) 250 ML 250 ML IV SCH (13:15)
[2022-11-01] MEDS ORDERED: diphenhydrAMINE INJ 50 MG/ML VIAL IVP PRN (13:15)
[2022-11-01] MEDS ORDERED: CALCIUM CARBONATE 500 MG CHEW TABLET PO PRN (13:15)
[2022-11-01] MEDS ORDERED: ONDANSETRON INJECTION 4 MG/2 ML (SDV) IV PRN (13:15)
[2022-11-01 13:30] VITALS: BP 126/65
[2022-11-01 13:55] VITALS: BP 125/85
[2022-11-01] MEDS ORDERED: RT-Ipratropium/Albuterol NEB 3 ML VIAL INH PRN (14:00)
[2022-11-01] MEDS ORDERED: VANCOMYCIN 2000 MG/NS 500 ML IVPB IV NR ×2 (14:00)
[2022-11-01] MEDS: NS IV 1000 ML 1,000 ML IV SCH (14:05)
[2022-11-01] MEDS: CEFEPIME INJECTION 1,000 MG in NS (IVPB) 50 ML 50 ML IV SCH ×2 (14:06→17:53)
[2022-11-01] MEDS: oxyCODONE IMMEDIATE RELEASE 5 MG TABLET PO PRN ×2 (14:08→21:30)
[2022-11-01] MEDS: NICOTINE 14 MG PATCH TD SCH (14:21)
[2022-11-01] MEDS: RT-Ipratropium/Albuterol NEB 3 ML VIAL INH SCH ×2 (15:04→20:15)
[2022-11-01 16:09] VITALS: BP 126/70
[2022-11-01] MEDS: DOCUSATE SODIUM 100 MG CAPSULE PO SCH (19:52)
[2022-11-01] MEDS: SENNOSIDES 8.6 MG TABLET PO SCH (19:52)
[2022-11-01 20:02] VITALS: BP 144/78
[2022-11-02] VITALS (7 sets, daily range): BP systolic 129–167; BP diastolic 66–97
[2022-11-02] MEDS: CEFEPIME INJECTION 1,000 MG in NS (IVPB) 50 ML 50 ML IV SCH ×4 (00:52→20:01)
[2022-11-02] MEDS: VANCOMYCIN 1500MG/300ML PREMIX IV SCH ×2 (02:01→13:57)
[2022-11-02] MEDS: oxyCODONE IMMEDIATE RELEASE 5 MG TABLET PO PRN ×3 (03:04→20:06)
[2022-11-02] MEDS: NS IV 1000 ML 1,000 ML IV SCH ×2 (03:33→18:07)
[2022-11-02] MEDS: RT-Ipratropium/Albuterol NEB 3 ML VIAL INH SCH ×4 (03:35→21:17)
[2022-11-02 05:43] LABS: BASOPHILS # (AUTO) 0.1 10^3/uL (0.0-0.1); BASOPHILS % (AUTO) 1 % (0-10); EOSINOPHILS # (AUTO) 0.2 10^3/uL (0.0-0.3); EOSINOPHILS % (AUTO) 3 % (0-10); HEMATOCRIT 46 % (40-54); LYMPHOCYTES # (AUTO) 1.6 10^3/uL (1.0-4.0); LYMPHOCYTES % (AUTO) 19 % (12-44); MEAN CORPUSCULAR HEMOGLOBIN 31 pg (25-34); MEAN CORPUSCULAR HGB CONC 33 g/dL (32-36); MEAN CORPUSCULAR VOLUME 94 fL (80-99); MEAN PLATELET VOLUME 10.5 fL (9.0-12.2); MONOCYTES # (AUTO) 0.7 10^3/uL (0.0-1.0); MONOCYTES % (AUTO) 8 % (0-12); NEUTROPHILS # (AUTO) 5.9 10^3/uL (1.8-7.8); NEUTROPHILS % (AUTO) 69 % (42-75); PLATELET COUNT 134 10^3/uL (130-400); WHITE BLOOD COUNT 8.5 10^3/uL (4.3-11.0)
--- NOTE | 2022-11-02 06:04 | History & Physical-Hospitalist ---
History of Present Illness HPI/Chief Complaint Chief complaint: Complicated UTI HPI: This is a 51-year-old male known to us from prior hospital stays who presented to the ER after he was unable to get up off a couch after he [facility] the [facility] [place] [facility]. He was found to have a UTI and likely polypharmacy contributing to the lethargy. Source: patient Exam Limitations: no limitations Date Seen 11/02/22 Time Seen by a Provider: 09:00 Attending Physician [place] PCP Admitting Physician: Edwina Baez DO Attending Physician: Edwina Baez DO Referring Physician Date of Admission Nov 01, 2022 at 13:11 Home Medications & Allergies Home Medications Reviewed patient Home Medication Reconciliation performed by pharmacy medication reconciliations organic extractions technician and/or nursing. Patients Allergies have been reviewed. Allergies Allergies Coded Allergies No Known Drug Allergies (Unverified11/01/22) Past Mababsb-Iauenp-Hbkhxf Hx Patient Social History Marrital Status: single Employed/Student: unemployed Tobacco Use?: Yes Tobacco type used: Cigars, Cigarettes Smoking Status: Current Everyday Smoker Use of E-Cig and/or Vaping dev: No Substance use?: No Alcohol Use?: No Pt feels they are or have been: No Immunizations Up To Date Date of Influenza Vaccine: Dec 24, 2021 First/Initial COVID19 Vaccinat: JUNE 2020 Second COVID19 Vaccination Ronald: JULY 2020 Tetanus Booster (TDap): Unknown Hepatitis A: No Hepatitis B: No PED Vaccines UTD: No Date of Pneumonia Vaccine: May 22, 2016 Seasonal Allergies Seasonal Allergies: No Current Status Advance Directives: No Communicates: Verbally Primary Language: Guyanese Preferred Spoken Language: Guyanese Is interpretation needed?: No Sensory deficits: Vision impairment Implanted or Applied Medical D: Stents Past Medical History Surgeries: Gallbladder, Orthopedic, Renal Sleep Apnea, COPD Currently Using CPAP: Yes Currently Using BIPAP: No Atrial Fibrillation, Chronic Edema/Swelling, Coronary Artery Disease, High Cholesterol, Hypertension Neuropathy Sexually Transmitted Disease: No HIV/AIDS: No Benign Prostatic Hyperpl, Renal Failure Colitis, Gastroesophageal Reflux, Gall Bladder Disease Degenerate Disk Disease, Arthritis, Chronic Back Pain, Gout Diabetes, Non-Insulin dep Anxiety, Bipolar, Depression Blood Disorders: No Adverse Reaction/Blood Tranf: No PMHx: HTN NIDDM Restless Legs COPD Sleep apnea on cpap SurgHx: Back surgery Cholecystectomy Family Medical History Completed stroke DVT 19 MOTHER, , Onset:Unknown Diabetes mellitus 19 MOTHER, , Onset:Unknown G8 BROTHER, Onset:Unknown FH: gastric ulcer 19 FATHER, Onset:Unknown No Pertinent Family Hx, DVT/PE, Diabetes, GI Disease SOCIAL HISTORY: -SMOKES AT LEAST 1 PPD -ETOH--HARD LIQUOR SEVERAL TIMES A WEEK -DRUGS--EXTENSIVE HISTORY OF DRUG USE, INCLUDING "SPEED" , COCAINE, MARIJUANA. HE DENIES IV DRUG USE, BUT HE HAS A TATTOO OF A SYRINGE AND NEEDLE IN HIS RIGHT AC SPACE. PAST SURGICAL HISTORY: -CHOLECYSTECTOMY -BACK SURGERY 2003 -URETERAL STENTS -LITHOTRIPSY 03/27/[address] GONZALES CARDIAC CATH 05/09/[address] ALMEIDA: -CONCLUSIONS: 1. No angiographically significant coronary artery disease. 2. Elevated left ventricular end-diastolic pressure. DISCUSSION AND RECOMMENDATIONS: Based on results of the study, chest discomfort does not appear to be of coronary origin. Continuing risk factor modification is advised. Outpatient followup is advised. PT HAS LONG HISTORY OF EXTREME NON-COMPLIANCE IN ALL ASPECTS OF CARE. PT HAS BEEN IN [facility] SINCE 05/07/22 Review of Systems Constitutional: see HPI, malaise, weakness Physical Exam Physical Exam Vital Signs Vital Signs - First Documented 11/01/22 11/01/22 11/01/22 09:34 10:13 13:30 Temp 36.1 Pulse 89 Resp 20 B/P (MAP) 127/81 (96) Pulse Ox 97 O2 Delivery Room Air O2 Flow Rate 1.00 Capillary Refill : Height, Weight, BMI Height: 5'10.00" Weight: 330lbs. 3.0oz. 149.377269ya; 53.23 BMI Method:Stated General Appearance: No Apparent Distress, Chronically ill, Obese Respiratory: Lungs Clear, Normal Breath Sounds Cardiovascular: Regular Rate, Rhythm Neurologic/Psychiatric: Alert, Oriented x3 Results Results/Procedures Labs Laboratory Tests 11/01/22 09:50 11/02/22 05:33 Patient resulted labs reviewed. Assessment/Plan Admission Diagnosis Assessment: Complicated UTI Hypertension Obesity hypoventilation syndrome Plan: IV antibiotics Supportive care Monitor closely Admission Status: Observation EDWINA BAEZ DO Nov 02, 2022 06:04
[2022-11-02 06:05] LABS: ALBUMIN 3.6 GM/DL (3.2-4.5); BILIRUBIN,TOTAL 0.7 MG/DL (0.1-1.0); CALCIUM 8.6 MG/DL (8.5-10.1); CREATININE SERUM 1.09 MG/DL (0.60-1.30); POTASSIUM 4.2 MMOL/L (3.6-5.0)
[2022-11-02] MEDS: DOCUSATE SODIUM 100 MG CAPSULE PO SCH ×2 (08:30→20:02)
[2022-11-02] MEDS: SENNOSIDES 8.6 MG TABLET PO SCH ×2 (08:30→20:02)
[2022-11-02] MEDS: NICOTINE 14 MG PATCH TD SCH (08:30)
[2022-11-02] MEDS: PATCH REMOVAL TP SCH (08:30)
[2022-11-02] MEDS: ACETAMINOPHEN 325 MG TABLET PO PRN (18:07)
[2022-11-02] MEDS ORDERED: RT-ALBUTEROL SULF 2.5 MG/3 ML PRE-MIX VIAL INH PRN (20:45)
[2022-11-02] MEDS ORDERED: ACETAMINOPHEN 500 MG TABLET PO PRN (20:45)
[2022-11-02] MEDS: APIXABAN 5 MG TABLET PO SCH (21:48)
[2022-11-02] MEDS: FAMOTIDINE 20 MG TABLET PO SCH (21:48)
[2022-11-02] MEDS: GABAPENTIN 600 MG TABLET PO SCH (21:48)
[2022-11-02] MEDS: TAMSULOSIN 0.4 MG (FLOMAX) CAP PO SCH (21:48)
[2022-11-02] MEDS: SODIUM BICARBONATE 650 MG TABLET PO SCH (21:48)
[2022-11-02] MEDS: rOPINIRole 1 MG TABLET PO SCH (21:49)
[2022-11-02] MEDS: BACLOFEN 10 MG TABLET PO SCH (21:49)
[2022-11-03] VITALS (7 sets, daily range): BP systolic 126–176; BP diastolic 86–106
[2022-11-03] MEDS: BALSALAZIDE DISODIUM 1500 MG PO SCH ×4 (00:26→19:52)
[2022-11-03] MEDS: oxyCODONE IMMEDIATE RELEASE 5 MG TABLET PO PRN ×4 (02:04→20:55)
[2022-11-03] MEDS: CEFEPIME INJECTION 1,000 MG in NS (IVPB) 50 ML 50 ML IV SCH ×4 (02:14→19:50)
[2022-11-03] MEDS: RT-Ipratropium/Albuterol NEB 3 ML VIAL INH SCH ×4 (03:35→21:10)
[2022-11-03 05:33] LABS: HEMOGLOBIN 14.5 g/dL (13.3-17.7)
[2022-11-03 05:34] LABS: BASOPHILS % (AUTO) 1 % (0-10); EOSINOPHILS # (AUTO) 0.2 10^3/uL (0.0-0.3); EOSINOPHILS % (AUTO) 3 % (0-10); HEMATOCRIT 45 % (40-54); LYMPHOCYTES # (AUTO) 1.5 10^3/uL (1.0-4.0); LYMPHOCYTES % (AUTO) 22 % (12-44); MEAN CORPUSCULAR HEMOGLOBIN 31 pg (25-34); MEAN CORPUSCULAR HGB CONC 33 g/dL (32-36); MEAN CORPUSCULAR VOLUME 94 fL (80-99); MEAN PLATELET VOLUME 10.6 fL (9.0-12.2); MONOCYTES # (AUTO) 0.6 10^3/uL (0.0-1.0); MONOCYTES % (AUTO) 8 % (0-12); NEUTROPHILS # (AUTO) 4.4 10^3/uL (1.8-7.8); NEUTROPHILS % (AUTO) 66 % (42-75); PLATELET COUNT 139 10^3/uL (130-400); WHITE BLOOD COUNT 6.7 10^3/uL (4.3-11.0)
[2022-11-03 05:57] LABS: ALBUMIN 3.6 GM/DL (3.2-4.5); BILIRUBIN,TOTAL 0.6 MG/DL (0.1-1.0); CALCIUM 8.6 MG/DL (8.5-10.1); CREATININE SERUM 0.94 MG/DL (0.60-1.30); POTASSIUM 3.9 MMOL/L (3.6-5.0)
[2022-11-03] MEDS: THERAPEUTIC MULTIVITAMIN W/MINERALS TABLET PO SCH (06:10)
--- NOTE | 2022-11-03 07:08 | Progress Note - Hospitalist ---
Subjective HPI/CC On Admission Date Seen by Provider: Nov 03, 2022 Time Seen by Provider: 11:00 Chief complaint: Complicated UTI HPI: This is a 51-year-old male known to us from prior hospital stays who presented to the ER after he was unable to get up off a couch after he left the longterm on a day pass. He was found to have a UTI and likely polypharmacy contributing to the lethargy. Subjective/Events-last exam Patient denies any new issues Likely be ready to go home tomorrow No falls Eating and drinking well Muscle spasms requiring baclofen but will start dose of 5 mg every 6 hours since it appears he was overusing it Review of Systems General: Fatigue, Malaise Objective Exam Vital Signs Vital Signs Date Time Temp Pulse Resp B/P (MAP) Pulse Ox O2 Delivery O2 Flow Rate FiO2 11/03/22 12:42 36.5 98 18 126/87 (100) 94 Nasal Cannula 3.00 Capillary Refill : General Appearance: No Apparent Distress, WD/WN, Chronically ill Respiratory: Lungs Clear, Normal Breath Sounds Cardiovascular: Regular Rate, Rhythm Neurologic/Psychiatric: Alert, Oriented x3 Results/Procedures Lab Laboratory Tests 11/03/22 05:24 Patient resulted labs reviewed. Assessment/Plan Assessment and Plan Assess & Plan/Chief Complaint Assessment: Complicated UTI Hypertension Obesity hypoventilation syndrome Plan: IV antibiotics Supportive care Monitor closely XAVI LOPEZ DO Nov 03, 2022 07:08
[2022-11-03] MEDS: PATCH REMOVAL TP SCH (08:23)
[2022-11-03] MEDS: metFORMIN 500 MG TABLET PO SCH ×2 (08:23→14:04)
[2022-11-03] MEDS: rOPINIRole 1 MG TABLET PO SCH ×3 (08:24→19:51)
[2022-11-03] MEDS: ASPIRIN enteric coated 81MG TABLET PO SCH (08:24)
[2022-11-03] MEDS: ARIPiprazole 15 MG TABLET PO SCH (08:24)
[2022-11-03] MEDS: BACLOFEN 10 MG TABLET PO SCH ×3 (08:24→19:52)
[2022-11-03] MEDS: ACETAMINOPHEN 325 MG TABLET PO PRN (08:25)
[2022-11-03] MEDS: DOCUSATE SODIUM 100 MG CAPSULE PO SCH ×2 (08:25→19:52)
[2022-11-03] MEDS: GABAPENTIN 600 MG TABLET PO SCH ×3 (08:25→19:51)
[2022-11-03] MEDS: amLODIPine 5 MG TABLET PO SCH (08:25)
[2022-11-03] MEDS: APIXABAN 5 MG TABLET PO SCH ×2 (08:25→19:52)
[2022-11-03] MEDS: SODIUM BICARBONATE 650 MG TABLET PO SCH ×2 (08:25→19:52)
[2022-11-03] MEDS: DULoxetine 30 MG CAPSULE PO SCH (08:27)
[2022-11-03] MEDS: SENNOSIDES 8.6 MG TABLET PO SCH ×2 (08:27→19:51)
[2022-11-03] MEDS: NICOTINE 14 MG PATCH TD SCH (08:27)
[2022-11-03] MEDS ORDERED: BACLOFEN 10 MG TABLET PO PRN (12:15)
[2022-11-03] MEDS: diphenhydrAMINE 25 MG TABLET PO PRN ×2 (13:53→21:21)
[2022-11-03] MEDS: TAMSULOSIN 0.4 MG (FLOMAX) CAP PO SCH (19:51)
[2022-11-03] MEDS: FAMOTIDINE 20 MG TABLET PO SCH (19:52)
[2022-11-03] MEDS ORDERED: FENOFIBRATE, Micronized 134 MG CAPSULE PO SCH (21:00)
[2022-11-03] MEDS ORDERED: CYCLOBENZAPRINE 10 MG TABLET PO SCH (21:00)
[2022-11-04] MEDS: CEFEPIME INJECTION 1,000 MG in NS (IVPB) 50 ML 50 ML IV SCH ×2 (01:42→09:15)
[2022-11-04] MEDS: ACETAMINOPHEN 325 MG TABLET PO PRN (02:16)
[2022-11-04 03:29] VITALS: BP 149/96
[2022-11-04] MEDS: THERAPEUTIC MULTIVITAMIN W/MINERALS TABLET PO SCH (06:15)
[2022-11-04 06:46] LABS: BASOPHILS # (AUTO) 0.1 10^3/uL (0.0-0.1); BASOPHILS % (AUTO) 1 % (0-10); EOSINOPHILS # (AUTO) 0.2 10^3/uL (0.0-0.3); EOSINOPHILS % (AUTO) 4 % (0-10); HEMATOCRIT 48 % (40-54); HEMOGLOBIN 15.7 g/dL (13.3-17.7); LYMPHOCYTES # (AUTO) 1.6 10^3/uL (1.0-4.0); LYMPHOCYTES % (AUTO) 25 % (12-44); MEAN CORPUSCULAR HEMOGLOBIN 31 pg (25-34); MEAN CORPUSCULAR HGB CONC 33 g/dL (32-36); MEAN CORPUSCULAR VOLUME 94 fL (80-99); MEAN PLATELET VOLUME 10.9 fL (9.0-12.2); MONOCYTES # (AUTO) 0.6 10^3/uL (0.0-1.0); MONOCYTES % (AUTO) 9 % (0-12); NEUTROPHILS # (AUTO) 3.9 10^3/uL (1.8-7.8); NEUTROPHILS % (AUTO) 61 % (42-75); PLATELET COUNT 154 10^3/uL (130-400); WHITE BLOOD COUNT 6.4 10^3/uL (4.3-11.0)
[2022-11-04 07:28] LABS: ALBUMIN 3.9 GM/DL (3.2-4.5); BILIRUBIN,TOTAL 0.6 MG/DL (0.1-1.0); CALCIUM 9.1 MG/DL (8.5-10.1); CREATININE SERUM 1.06 MG/DL (0.60-1.30); POTASSIUM 4.3 MMOL/L (3.6-5.0); TOTAL PROTEIN 6.5 GM/DL (6.4-8.2)
[2022-11-04 07:53] VITALS: BP 140/76
[2022-11-04] MEDS: RT-Ipratropium/Albuterol NEB 3 ML VIAL INH SCH (08:23)
[2022-11-04] MEDS: metFORMIN 500 MG TABLET PO SCH (09:15)
[2022-11-04] MEDS: ASPIRIN enteric coated 81MG TABLET PO SCH (09:16)
[2022-11-04] MEDS: rOPINIRole 1 MG TABLET PO SCH ×2 (09:16→12:55)
[2022-11-04] MEDS: ARIPiprazole 15 MG TABLET PO SCH (09:16)
[2022-11-04] MEDS: DULoxetine 30 MG CAPSULE PO SCH (09:16)
[2022-11-04] MEDS: BACLOFEN 10 MG TABLET PO SCH ×2 (09:16→12:55)
[2022-11-04] MEDS: APIXABAN 5 MG TABLET PO SCH (09:17)
[2022-11-04] MEDS: amLODIPine 5 MG TABLET PO SCH (09:17)
[2022-11-04] MEDS: NICOTINE 14 MG PATCH TD SCH (09:17)
[2022-11-04] MEDS: GABAPENTIN 600 MG TABLET PO SCH ×2 (09:17→12:55)
[2022-11-04] MEDS: SODIUM BICARBONATE 650 MG TABLET PO SCH (09:17)
[2022-11-04] MEDS: DOCUSATE SODIUM 100 MG CAPSULE PO SCH (09:18)
[2022-11-04] MEDS: PATCH REMOVAL TP SCH (09:18)
[2022-11-04] MEDS: SENNOSIDES 8.6 MG TABLET PO SCH (09:18)
[2022-11-04] MEDS: BALSALAZIDE DISODIUM 1500 MG PO SCH ×2 (10:52→12:54)
[2022-11-04 11:11] VITALS: BP 133/83
[2022-11-04] MEDS ORDERED: CEFDINIR 300 MG CAPSULE PO ONE (12:15)
[2022-11-04] MEDS ORDERED: NF-SODBICA PO (12:39)
[2022-11-04] MEDS ORDERED: MTP100TCR PO (12:39)
[2022-11-04] MEDS ORDERED: CEFD300C3 PO (12:39)
[2022-11-04] MEDS ORDERED: ACET-2267 PO (12:39)
[2022-11-04] MEDS ORDERED: METF-399 PO (12:39)
[2022-11-04] MEDS ORDERED: GBPN600T PO (12:39)
[2022-11-04] MEDS ORDERED: DULO60CA59 PO (12:39)
[2022-11-04] MEDS ORDERED: ROPI5TAB23 PO (12:39)
[2022-11-04] MEDS ORDERED: BACL10TA PO (12:39)
[2022-11-04] MEDS ORDERED: ARIP30TA21 PO (12:39)
[2022-11-04] MEDS ORDERED: MULT-1136 PO (12:39)
[2022-11-04] MEDS ORDERED: ATOR40TA70 PO (12:39)
[2022-11-04] MEDS ORDERED: CYCL10TA25 PO (12:39)
[2022-11-04] MEDS ORDERED: APIX5TAB PO (12:39)
[2022-11-04] MEDS ORDERED: FENO145T26 PO (12:39)
[2022-11-04] MEDS ORDERED: BALS750C PO (12:39)
[2022-11-04] MEDS ORDERED: TMSL.4C PO (12:39)
[2022-11-04] MEDS ORDERED: POTA-177 PO (12:39)
[2022-11-04] MEDS ORDERED: AMLO-250 PO (12:39)
[2022-11-04] MEDS ORDERED: ASPI-1238 PO (12:39)
[2022-11-04] MEDS ORDERED: FAMO20TA5 PO (12:39)
--- NOTE | 2022-11-04 12:41 | Discharge Summary ---
Discharge Summary Hospital Course Was the Problem List Reviewed?: Yes Problems/Dx: (1) UTI (urinary tract infection) Status: Resolved Qualifiers: Qualified Codes: N39.0 - Urinary tract infection, site not specified; R31.9 - Hematuria, unspecified (2) HTN (hypertension) Status: Chronic Hospital Course Date of Admission: Nov 01, 2022 at 13:11 Admission Diagnosis : [place] Physician/Provider[place] [place] Date of Discharge: 11/04/22 Discharge Diagnosis: [ ] Hospital Course: Short course after he was admitted for AMS due to UTI suspected resistant type and Baclofen overuse. He regained function back to baseline and UCx revealed Strep B so he was DC on Omnicef. Labs and Pending Lab Test: Laboratory Tests 11/04/22 05:50: White Blood Count 6.4, Red Blood Count 5.13, Hemoglobin 15.7, Hematocrit 48, Mean Corpuscular Volume 94, Mean Corpuscular Hemoglobin 31, Mean Corpuscular Hemoglobin Concent 33, Red Cell Distribution Width 14.9H, Platelet Count 154, Mean Platelet Volume 10.9, Immature Granulocyte % (Auto) 1, Neutrophils (%) (Auto) 61, Lymphocytes (%) (Auto) 25, Monocytes (%) (Auto) 9, Eosinophils (%) (Auto) 4, Basophils (%) (Auto) 1, Neutrophils # (Auto) 3.9, Lymphocytes # (Auto) 1.6, Monocytes # (Auto) 0.6, Eosinophils # (Auto) 0.2, Basophils # (Auto) 0.1, Immature Granulocyte # (Auto) 0.1, Sodium Level 139, Potassium Level 4.3, Chlor cammie Level 105, Carbon Dioxide Level 24, Anion Gap 10, Blood Urea Nitrogen 11, Creatinine 1.06, Estimat Glomerular Filtration Rate 84, BUN/Creatinine Ratio 10, Glucose Level 101, Calcium Level 9.1, Corrected Calcium 9.2, Total Bilirubin 0.6, Aspartate Amino Transf (AST/SGOT) 27, Alanine Aminotransferase (ALT/SGPT) 18, Alkaline Phosphatase 60, Total Protein 6.5, Albumin 3.9 Microbiology 11/01/22 Urine Culture - Final, Complete Strep agalactiae Group B Mixed Bacterial Marie Home Meds Active Potassium Chloride 10 Meq Tab.er.prt 10 Meq PO DAILY Baclofen 10 Mg Tablet 5 Mg PO Q6HR PRN Cefdinir 300 Mg Capsule 300 Mg PO BID Sodium Bicarbonate 650 Mg Tablet 650 Mg PO BID LAST FILLED 01-15-2022 #60/30 DAY SUPPLY Aspirin EC (Aspirin) 81 Mg Tablet.dr 81 Mg PO DAILY Balsalazide Disodium 750 Mg Capsule 1,500 Mg PO TID TAKES 2 (750MG) CAPS Amlodipine Besylate 5 Mg Tablet 5 Mg PO DAILY LAST FILLED 01-26-2022 #30/30 DAY SUPPLY Aripiprazole 30 Mg Tablet 30 Mg PO DAILY Eliquis (Apixaban) 5 Mg Tablet 5 Mg PO BID Metoprolol Succinate 100 Mg Tab.er.24h 100 Mg PO DAILY Cyclobenzaprine HCl 10 Mg Tablet 10 Mg PO HS Multivitamin 1 Each Tablet 1 Each PO DAILY Flomax (Tamsulosin HCl) 0.4 Mg Cap 0.4 Mg PO HS Metformin HCl 1,000 Mg Tablet 1,000 Mg PO BID Gabapentin 600 Mg Tablet 600 Mg PO TID Duloxetine HCl 60 Mg Capsule.dr 120 Mg PO DAILY TAKES 2 (60MG) CAPSULES Tylenol Extra Strength (Acetaminophen) 500 Mg Tablet 1,000 Mg PO Q4H PRN Atorvastatin Calcium 40 Mg Tablet 40 Mg PO HS Famotidine 20 Mg Tablet 20 Mg PO HS Fenofibrate (Fenofibrate Nanocrystallized) 145 Mg Tablet 145 Mg PO HS Ropinirole HCl 5 Mg Tablet 5 Mg PO TID Reported Ventolin Hfa (Albuterol Sulfate) 1 Puff Puff 2 Puff INH Q4H PRN Potassium Chloride 20 Meq Tab.er.prt 40 Meq PO BID TAKES 2 (20MEQ) TABLETS LAST FILLED 02-02-2022 #120/30 DAY SUPPLY Baclofen 10 Mg Tablet 10 Mg PO TID Assessment/Pt Instructions NH rounds Discharge Planning: <30 minutes discharge planning Discharge Instructions Discharge Diet: No Restrictions Discharge Physical Examination Vital Signs Vital Signs Date Time Temp Pulse Resp B/P (MAP) Pulse Ox O2 Delivery O2 Flow Rate FiO2 11/04/22 11:11 36.4 89 18 133/83 (100) 97 Nasal Cannula 1.50 General Appearance: No Apparent Distress, WD/WN, Obese Respiratory: Lungs Clear Cardiovascular: Regular Rate, Rhythm Neurologic/Psychiatric: Alert, Oriented x3 Allergies: Coded Allergies: No Known Drug Allergies (Unverified , 11/01/22) Discharge Summary Date of Admission Nov 01, 2022 at 13:11 Date of Discharge Discharge Date: Nov 04, 2022 Admission Diagnosis Assessment: Complicated UTI Hypertension Obesity hypoventilation syndrome Plan: IV antibiotics Supportive care Monitor closely Discharge Diagnosis Assessment: Complicated UTI Hypertension Obesity hypoventilation syndrome Plan: IV antibiotics Supportive care Monitor closely XAVI LOPEZ DO Nov 04, 2022 12:41
[2022-11-04 15:40] VITALS: BP 133/83
[2022-11-04] MEDS ORDERED: CEFDINIR 300 MG CAPSULE PO SCH (21:00)
== END 2022-11-04 15:26 ==
LOC: EDUNIT# 09:32 → ER 09:34 → 4TH 13:11 → INTOOBSV 13:11
PROVIDERS: ADMIT Internal Medicine; ATTEND Internal Medicine
DX: N39.0 Urinary tract infection, site not specified (principal); I10 Essential (primary) hypertension; R31.9 Hematuria, unspecified; E66.2 Morbid (severe) obesity with alveolar hypoventilation; J44.9 Chronic obstructive pulmonary disease, unspecified; R53.81 Other malaise; F17.210 Nicotine dependence, cigarettes, uncomplicated; Z68.43 Body mass index [BMI] 50.0-59.9, adult; Z79.82 Long term (current) use of aspirin
CPT/HCPCS: 36415; 80053; 81000; 82805; 83735; 85025; 87077; 87088; 93041; 94640; 94760; 96366; 96375; 96376; G0378